=== PATIENT | male | born 1960 | race Caucasian/White ===

== ENCOUNTER 2022-04-21 18:05 | Inpatient (IN) ==
--- NOTE | 2022-04-21 20:58 | XRay Report ---
SINGLE VIEW CHEST CLINICAL HISTORY: Dyspnea. FINDINGS: An AP, portable, upright chest radiograph is compared to study dated 12/12/2020. The heart is enlarged. There is pulmonary vascular congestion. Scarring/atelectasis is noted at the lung bases. N o airspace consolidation or large pleural effusion is identified. No pneumothorax is seen. The bony t horax is grossly intact. IMPRESSION: Cardiomegaly with pulmonary vascular congestion. ACT 112: Negative or not required by law. Electronically signed by: Chilango Rivas M.D. 04/21/2022 8:57 PM
[2022-04-21 21:39] LABS: Albumin Globulin Ratio 0.9 (0.9-2); Albumin Level 3.9 gm/dl (3.4-5.0); BUN Creatinine Ratio 18.8 (10-20); Bilirubin,Total 0.6 mg/dl (0.2-1.0); Calcium 9.4 mg/dl (8.5-10.1); Creatinine Clr Calc Pharmacy 58.6 ml/min; Est GFR (African American) 46.7 ml/min; Est GFR (Non-African American) 40.3 ml/min; Globulin 4.4 gm/dl (2.5-4.0); Potassium 4.1 mmol/L (3.5-5.1); Total Protein 8.3 gm/dl (6.0-8.3)
[2022-04-21 21:41] LABS: Basophils # (auto) 0.18 K/uL (0-0.2); Basophils % (auto) 2.1 %; Eosinophils # (auto) 0.73 K/uL (0-0.50); Eosinophils % (auto) 8.6 %; Hematocrit (blood only) 38.4 % (40.1-51.0); Immature Granulocytes # (auto) 0.09 K/uL (0.00-0.02); Immature Granulocytes % (auto) 1.1 %; Lymphocytes # (auto) 2.21 K/uL (1.2-3.4); Lymphocytes % (auto) 25.9 %; Mean Corpuscular Hemoglobin 29.1 pg (25.0-34.0); Mean Corpuscular Hgb Conc 33.9 g/dL (32.0-36.0); Mean Corpuscular Volume 86.1 fL (80.0-100.0); Mean Platelet Volume 10.1 fL (9.4-12.4); Monocytes # (auto) 0.71 K/uL (0.24-0.82); Monocytes % (auto) 8.3 %; Neutrophils # (auto) 4.61 K/uL (1.4-6.5); Platelet Count 209 K/uL (130-400); RDW Coefficient of Variation 13.2 % (11.5-14.5); RDW Standard Deviation 41.3 fL (36.4-46.3); Red Blood Count 4.46 M/uL (4.63-6.08); White Blood Count 8.53 K/ul (4.8-10.8)
[2022-04-21] MEDS ORDERED: BUMETANIDE 1 MG in SYRINGE 0 ML IV ONE (21:42)
[2022-04-21] MEDS ORDERED: ALBUT/IPRATROP 3MG/0.5MG NEB 3 ML VIAL NEB STA (21:46)
[2022-04-21] MEDS ORDERED: NITROGLYCERIN 2% OINTMENT 30GM TUBE EXT ONE (21:46)
--- NOTE | 2022-04-21 22:33 | Emergency Department Note ---
History of Present Illness General Chief complaint: Shortness of Breath/Dyspnea Stated complaint: LEFT KNEE, CONJESTIVE HEART FAILURE, FLUID LONG Time Seen by Provider: 04/21/22 21:40 History of Present Illness This 62-year-old with a history of CHF on Bumex presents to the ER complaining of increasing dyspnea and leg swelling for the past few days Location: Chest Quality: Hard to breathe Severity: Moderate Duration: Past few days Timing: Started few days ago Context: Patient was concerned and came in Modifying factors: better with rest; worse with activity Patient denies chest pain, fevers, abdominal pain, vomiting, diarrhea. He has been taking his medicines as directed. He has been less active. He took an extra dose of his Bumex with no relief. Home Medications Medication Instructions Recorded Confirmed Type aspirin 81 mg tablet,delayed 81 mg PO QAM 12/12/20 04/21/22 History release (John Low Dose Aspirin) clotrimazole-betamethasone 1 1 applic topical QAM PRN AFFECTED 12/12/20 04/21/22 History %-0.05 % topical cream AREAS insulin aspart U-100 100 unit/mL 0 sliding scale dose subcut TID 12/12/20 04/21/22 History (3 mL) subcutaneous pen (Novolog per sliding scale Flexpen U-100 Insulin aspart) lisinopril 40 mg tablet 40 mg PO QPM 12/12/20 04/21/22 History metformin 500 mg tablet,extended 2,000 mg PO QAM 12/12/20 04/21/22 History release 24 hr vitamin B complex 1 tab PO QAM 12/12/20 04/21/22 History acetaminophen 500 mg tablet 500 mg PO Q6H PRN Pain 01/28/21 04/21/22 History (Tylenol Extra Strength) coenzyme Q10 100 mg capsule 200 mg PO QAM 05/09/21 04/21/22 History (CoQ-10) carvedilol 25 mg tablet 25 mg PO BID #180 tabs 05/28/21 04/21/22 Rx evolocumab 140 mg/mL subcutaneous 140 mg subcut .COMPLEX 05/28/21 04/21/22 History pen injector (Elmo Ramirezick) hydralazine 25 mg tablet 25 mg PO BID 05/28/21 04/21/22 History insulin degludec 100 unit/mL (3 180 unit subcut QAM 07/12/21 04/21/22 History mL) subcutaneous pen (Tresiba FlexTouch U-100 insulin) glucosam 750 mg-chondroi 100 1 tab PO QAM 09/10/21 04/21/22 History mg-hyalur 1.65 mg-CF borate 108 mg tablet (Move Free Footway) omeprazole magnesium 20 mg 20 mg PO QAM 01/10/22 04/21/22 History capsule,delayed release (Acid Wash Box Operator (omeprazole)) bumetanide 1 mg tablet 1 mg PO TID 01/14/22 04/21/22 History cholecalciferol (vitamin D3) 125 125 mcg PO DAILY 04/21/22 04/21/22 History mcg (5,000 unit) tablet (Vitamin D3) spironolactone 25 mg tablet 25 mg PO DAILY 04/21/22 04/21/22 History Allergies Allergy/AdvReac Type Severity Reaction Status Date / Time Sulfa (Sulfonamide AdvReac Intermediate Hives Verified 04/21/22 22:33 Antibiotics) Past Med/Surg History Medical History Arreola's esophagus Chronic diastolic heart failure EF 59%, Grade 2 diastolic dysfunction, follows with [facility] Chronic kidney disease G2/A3, baseline Cr 1.2, follows with [place] [facility] Degenerative disc disease Hepatic steatosis Hyperlipidemia Hypertension LVH (left ventricular hypertrophy) severe [place] on CPAP Type 2 diabetes mellitus IDDM Surgical History History of ankle surgery right History of cataract surgery bilateral History of colonoscopy Hx of arthroscopy of left knee Family History Other No pertinent family history Social History Smoking Status: Never smoker Second Hand Exposure: No; Hx Alcohol Use: No Hx Substance Use: No Preferred Language: [place] Communication Ability: 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: No Beliefs That Will Affect Care: None Current Living Situation: Spouse Feels Safe at Home: Yes Assistive Devices: Cane, CPAP, Denture - Upper and Glasses Review of Systems A total of 10 systems reviewed and were otherwise negative Physical Exam Vital Signs Vital Signs - 24 hr 04/21/22 18:35 04/21/22 22:47 04/21/22 22:47 Temperature 37.0 C Temperature Source Temporal Artery Scan Pulse Rate 60 Pulse Rate [Finger] 58 L Respiratory Rate 16 22 Respiratory Effort / Characteristics Non-Labored Spontaneous Respiratory Depth Normal Respiratory Pattern Regular Blood Pressure 226/90 H Blood Pressure [Right Arm] 167/72 H Blood Pressure Mean 135 Blood Pressure Mean [Right Arm] 103 Blood Pressure Position Sitting Pulse Oximetry 94 94 93 Oxygen Delivery Method Room Air Room Air Room Air Sepsis Recent Fever Within 48 Hours No Sepsis New/Unexplained Change in Mental Status N/A Sepsis Action Taken by Nursing No Action Required 04/21/22 22:47 Temperature Temperature Source Pulse Rate 58 L Pulse Rate [Finger] Respiratory Rate 22 Respiratory Effort / Characteristics Respiratory Depth Respiratory Pattern Blood Pressure Blood Pressure [Right Arm] Blood Pressure Mean Blood Pressure Mean [Right Arm] Blood Pressure Position Pulse Oximetry 93 Oxygen Delivery Method Room Air Sepsis Recent Fever Within 48 Hours Sepsis New/Unexplained Change in Mental Status Sepsis Action Taken by Nursing VITALS: Vitals are noted on the nurse's note and reviewed by myself. Vital signs hypertensive. GENERAL: Pleasant male speaking in full sentences, in no acute distress, nondiaphoretic, well-developed well-nourished. SKIN: The skin was without rashes, erythema, edema, or bruising. There is no tenting of the skin. Capillary reflex less than 2 seconds. HEAD: Normocephalic atraumatic. EARS: External auditory canals clear, tympanic membranes pearly ellis without e rythema or effusion bilaterally. EYES: Pupils equal round and reactive to light and accommodation. Conjunctivae without injection, sclerae without icterus. Extraocular movements intact. NOSE: Patent, turbinates without inflammation or discharge. MOUTH: Mucous membranes moist. Pharynx without erythema or exudate. Uvula midline. Airway patent. Tongue does not deviate. NECK: Supple without nuchal rigidity. No lymphadenopathy. No thyromegaly. Cervical spine is nontender. No JVD. HEART: Regular rate and rhythm LUNGS: Bibasilar rales. No retractions or accessory muscle use. ABDOMEN: Positive bowel sounds x 4. Normal tympanic percussion. Soft, nontender, without masses or organomegaly. Britt sign negative. No guarding or rebound tenderness. No CVA tenderness MUSCULOSKELETAL: No muscle atrophy, erythema, noted. +1 pitting edema up to the mid tib-fib bilaterally NEURO: Patient was alert and oriented to person place and time. Normal sensation to light and sharp touch. No focal neurological deficits. Course Administered Medications Discontinued Medications Albuterol (Albut/Ipratrop 3mg/0.5mg Neb 3 Ml Vial) 3 ml NEB NOW STA; Protocol Stop: 04/21/22 21:47 Last Admin: 04/21/22 21:56 Dose: 3 ml Documented By: QGV Bumetanide 1 mg/ Syringe 4 mls @ 4 mls/min IV ONE ONE Stop: 04/21/22 21:43 Last Admin: 04/21/22 22:45 Dose: 4 mls/min Documented By: QGV Nitroglycerin (Nitroglycerin 2% Ointment 30gm Tube) 1 inch EXT NOW ONE Stop: 04/21/22 21:47 Last Admin: 04/21/22 21:56 Dose: 1 inch Documented By: QGV Medical Decision Making Medical Records Attestation: I reviewed the patient's medical records. Home Medications Current Medication List: was personally reviewed by me Laboratory Data Attestation: I reviewed the patient's lab results. Result diagrams: 04/21/22 21:05 04/21/22 21:05 Lab Results 04/21/22 04/21/22 04/21/22 Range/Units 21:05 21:05 22:06 WBC 8.53 (4.8-10.8) K/ul RBC 4.46 L (4.63-6.08) M/uL Hgb 13.0 L (14.0-18.0) g/dl Hct 38.4 L (40.1-51.0) % MCV 86.1 (80.0-100.0) fL MCH 29.1 (25.0-34.0) pg MCHC 33.9 (32.0-36.0) g/dL RDW Std Deviation 41.3 (36.4-46.3) fL RDW Coeff of Javi 13.2 (11.5-14.5) % Plt Count 209 (130-400) K/uL MPV 10.1 (9.4-12.4) fL Immature Gran % (Auto) 1.1 % Neut % (Auto) 54.0 % Lymph % (Auto) 25.9 % Dare % (Auto) 8.3 % Eos % (Auto) 8.6 % Baso % (Auto) 2.1 % Neut # (Auto) 4.61 (1.4-6.5) K/uL Lymph # (Auto) 2.21 (1.2-3.4) K/uL Dare # (Auto) 0.71 (0.24-0.82) K/uL Eos # (Auto) 0.73 H (0-0.50) K/uL Baso # (Auto) 0.18 (0-0.2) K/uL Immature Gran # (Auto) 0.09 H (0.00-0.02) K/uL Sodium 138 (136-145) mmol/L Potassium 4.1 (3.5-5.1) mmol/L Chloride 104 (98-107) mmol/L Carbon Dioxide 24 (21-32) mmol/L Anion Gap 10 (3-11) BUN 33 H (6-23) mg/dl Creatinine 1.76 H (0.6-1.4) mg/dl Est Cr Clr Drug Dosing 58.6 ml/min Est GFR ( Amer) 46.7 ml/min Est GFR (Non-Af Amer) 40.3 ml/min BUN/Creatinine Ratio 18.8 (10-20) Glucose 83 (70-99(Fasting)) mg/dl Calcium 9.4 (8.5-10.1) mg/dl Magnesium 1.7 (1.7-2.4) mg/dl Total Bilirubin 0.6 (0.2-1.0) mg/dl AST 46 H (13-39) U/L ALT 38 (7-52) U/L Alkaline Phosphatase 86 (34-104) U/L Troponin I High Sens 21.3 H (0-20) pg/ml B-Natriuretic Peptide (0-100) pg/ml Total Protein 8.3 (6.0-8.3) gm/dl Albumin 3.9 (3.4-5.0) gm/dl Globulin 4.4 H (2.5-4.0) gm/dl Albumin/Globulin Ratio 0.9 (0.9-2) SARS-CoV-2, RNA, NAAT (NEGATIVE) 04/21/22 04/21/22 Range/Units 22:06 22:07 WBC (4.8-10.8) K/ul RBC (4.63-6.08) M/uL Hgb (14.0-18.0) g/dl Hct (40.1-51.0) % MCV (80.0-100.0) fL MCH (25.0-34.0) pg MCHC (32.0-36.0) g/dL RDW Std Deviation (36.4-46.3) fL RDW Coeff of Javi (11.5-14.5) % Plt Count (130-400) K/uL MPV (9.4-12.4) fL Immature Gran % (Auto) % Neut % (Auto) % Lymph % (Auto) % Dare % (Auto) % Eos % (Auto) % Baso % (Auto) % Neut # (Auto) (1.4-6.5) K/uL Lymph # (Auto) (1.2-3.4) K/uL Dare # (Auto) (0.24-0.82) K/uL Eos # (Auto) (0-0.50) K/uL Baso # (Auto) (0-0.2) K/uL Immature Gran # (Auto) (0.00-0.02) K/uL Sodium (136-145) mmol/L Potassium (3.5-5.1) mmol/L Chloride (98-107) mmol/L Carbon Dioxide (21-32) mmol/L Anion Gap (3-11) BUN (6-23) mg/dl Creatinine (0.6-1.4) mg/dl Est Cr Clr Drug Dosing ml/min Est GFR ( Amer) ml/min Est GFR (Non-Af Amer) ml/min BUN/Creatinine Ratio (10-20) Glucose (70-99(Fasting)) mg/dl Calcium (8.5-10.1) mg/dl Magnesium (1.7-2.4) mg/dl Total Bilirubin (0.2-1.0) mg/dl AST (13-39) U/L ALT (7-52) U/L Alkaline Phosphatase (34-104) U/L Troponin I High Sens (0-20) pg/ml B-Natriuretic Peptide 443 H (0-100) pg/ml Total Protein (6.0-8.3) gm/dl Albumin (3.4-5.0) gm/dl Globulin (2.5-4.0) gm/dl Albumin/Globulin Ratio (0.9-2) SARS-CoV-2, RNA, NAAT NEGATIVE (NEGATIVE) Imaging Data Attestation: I personally reviewed and interpreted this imaging study as follows: Radiologist's Impression: Chest X-Ray 04/21/22 18:42 SINGLE VIEW CHEST CLINICAL HISTORY: Dyspnea. FINDINGS: An AP, portable, upright chest radiograph is compared to study dated 12/12/2020. The heart is enlarged. There is pulmonary vascular congestion. Scarring/atelectasis is noted at the lung bases. No airspace consolidation or large pleural effusion is identified. No pneumothorax is seen. The bony thorax is grossly intact. IMPRESSION: Cardiomegaly with pulmonary vascular congestion. ACT 112: Negative or not required by law. Electronically signed by: Chilango Rivas M.D. 04/21/2022 8:57 PM [facility] Narrative Prior records/ancillary studies reviewed. Triage Nursing notes reviewed. Additional history obtained from nursing The patient's history was concerning for respiratory difficulties. Differential diagnosis: Etiologies such as infections, reactive airway disease, pneumonia, pneumothorax, COPD, CHF, cardiac ischemia, pulmonary embolism, musculoskeletal, gastrointestinal, as well as others were entertained. Physical examination: As above. ER treatment provided: An order was placed for continuous cardiac monitoring. The monitor shows a rate of 50-100 with a sinus rhythm. Bumex, nebulizer, nitroglycerin On reassessment the patient felt better. Diagnostic interpretation by me: The electrocardiogram was ordered for dyspnea EKG: Normal sinus, incomplete right bundle, no acute ST-T wave changes. Impression normal sinus rhythm with incomplete right bundle branch block interpreted by myself I think arrhythmia is unlikely. EKG shows normal sinus rhythm with no interval abnormalities such as QT prolongation or WPW. There are no findings to suggest Brugada syndrome. Cardiac monitoring in the emergency department reveals no tachycardic or bradycardic dysrhythmia. Hypertrophic cardiomyopathy was considered but there are no clear historical elements pointing toward this. EKG is not suggestive. The QRS voltage is not extremely large The labs revealed stable creatinine per chart review Elevated BNP, elevated troponin. Repeat was ordered. Imaging studies: Chest x-ray as above. Consultation: A consultation was placed with the hospitalist. The case was discussed and diagnostics were reviewed. The patient was evaluated in the ER for further treatment. This appears to be consistent with CHF exacerbation. Patient was feeling quite short of breath. He was medicated as above. Medicine was consulted. He will be evaluated for admission. By the evaluation outlined above emergent etiologi es such as pulmonary embolism, reactive airway disease, pneumonia, pneumothorax, musculoskeletal, serious bacterial infections, as well as others were deemed relatively unlikely. The pt informed about the findings as listed above. All questions were answered and pleased with the treatment. The chart was completed utilizing [employer] Speech voice recognition software. Grammatical errors, random word insertions, pronoun errors, and incomplete sentences are an occassional consequence of this system due to software limitations, ambient noise, and hardware issues. Any formal questions or con cerns about the content, text, or information contained within the body of this dictation should be directly addressed to the physician programs assistant for clarification. Impression & Plan Congestive heart failure Discharge Plan Visit Data Chief Complaint: Shortness of Breath/Dyspnea Stated Complaint: LEFT KNEE, CONJESTIVE HEART FAILURE, FLUID LONG ED Provider: Errol Patterson ED Midlevel Provider: Wen Singh Discharge Problem: Congestive heart failure Patient Disposition: Admitted As Inpatient Condition: Fair Forms Stand Alone Forms: [facility] [place] [employer] Prescriptions Prescriptions: No Action acetaminophen [Tylenol Extra Strength] 500 mg tablet 500 mg PO Q6H PRN (Reason: Pain) omeprazole magnesium [Acid Wash Box Operator (omeprazole)] 20 mg capsule,delayed release(DR/EC) 20 mg PO QAM hydralazine 25 mg tablet 25 mg PO BID Rx Instructions: PER PT "ONLY TAKE BID, ORDERED TID". Repatha SureClick 140 mg/mL pen injector 140 mg subcut .COMPLEX Rx Instructions: 140 mg subcut q other wk; TAKES ON EVERY OTHER WEDNESDAYS. carvedilol 25 mg tablet 25 mg PO BID Qty: 180 3RF Rx Instructions: must administer with a meal/food Move Free Footway 750 mg-100 mg- 1.65 mg-108 mg tablet 1 tab PO QAM bumetanide 1 mg tablet 1 mg PO TID aspirin [John Low Dose Aspirin] 81 mg Tablet,Delayed Release (Dr/Ec) 81 mg PO QAM clotrimazole-betamethasone 1-0.05 % cream 1 applic TOPICAL QAM PRN (Reason: AFFECTED AREAS) vitamin B complex Tablet 1 tab PO QAM lisinopril 40 mg tablet 40 mg PO QPM metformin 500 mg tablet extended release 24 hr 2,000 mg PO QAM insulin aspart U-100 [Novolog Flexpen U-100 Insulin] 100 unit/mL (3 mL) Insulin Pen 0 sliding scale dose SUBCUT TID coenzyme Q10 [CoQ-10] 100 mg capsule 200 mg PO QAM Tresiba FlexTouch U-100 100 unit/mL (3 mL) insulin pen 180 unit SUBCUT QAM spironolactone 25 mg tablet 25 mg PO DAILY cholecalciferol (vitamin D3) [Vitamin D3] 125 mcg (5,000 unit) Tablet 125 mcg PO DAILY Referrals Referrals: Bárbara Rios DO [Primary Care Provider] - : Congestive heart failure Qualifiers: Heart failure type: unspecified Heart failure chronicity: acute Qualified Code(s): I50.9 - Heart failure, unspecified
[2022-04-21 22:46] LABS: Magnesium 1.7 mg/dl (1.7-2.4); Troponin I High Sensitivity 21.3 pg/ml (0-20)
[2022-04-22 01:32] LABS: Appearance Urine Clear (Clear); Bacteria Urine Automated Negative (Negative); Bilirubin Urine Negative (Negative); Blood Urine Negative (Negative); Color Urine Yellow; Glucose Urine UA Negative (Negative); Ketones Urine Negative (Negative); Leukocyte Esterase Urine Negative (Negative); Nitrite Urine Negative (Negative); Protein Urine 2+ (Negative); RBC Urine Automated 0-4 /hpf (0-4); Specific Gravity Urine 1.011 (1.000-1.030); Urobilinogen Urine Negative (Negative); WBC Urine Automated 0 /hpf (0-5); pH Urine 5.5 (4.5-7.5)
[2022-04-22] MEDS ORDERED: ACETAMINOPHEN 325 MG TAB PO PRN (01:50)
[2022-04-22] MEDS ORDERED: NITROGLYCERIN SL 0.4 MG/TAB TAB SL PRN (01:50)
[2022-04-22] MEDS ORDERED: CLOTRIMAZOLE/BETAMETHASONE CR 15 GM TUBE EXT PRN (01:50)
[2022-04-22] MEDS ORDERED: POLYETHYLENE (MIRALAX) 17 GM PACK PO PRN (01:50)
[2022-04-22] MEDS ORDERED: BUMETANIDE 1 MG in SYRINGE 0 ML IV ONE (02:00)
[2022-04-22] MEDS ORDERED: GLUCAGON FOR INJ 1 MG VIAL IM PRN (02:45)
[2022-04-22] MEDS ORDERED: CARBOHYDRATES FOR HYPOGLYCEMIA PO PRN (02:45)
[2022-04-22] MEDS ORDERED: GLUCOSE 40% GEL 15 GM TUBE PO PRN (02:45)
[2022-04-22] MEDS ORDERED: GLUCOSE 10 TAB/TUBE PO PRN (02:45)
[2022-04-22] MEDS ORDERED: DEXTROSE 50% 50 ML SYRINGE IV PRN (02:45)
--- NOTE | 2022-04-22 03:32 | History and Physical Report ---
DATE OF ADMISSION: 04/22/2022. CHIEF COMPLAINT: Shortness of breath. HISTORY OF PRESENT ILLNESS: A 62-year-old male with past medical history significant for type 2 diabetes, diabetic polyneuropathy, diabetic retinopathy, obstructive sleep apnea, on CPAP, diastolic CHF, chronic kidney disease, stage IIIB, morbid obesity, Arreola's esophagus with high-grade dysplasia, hepatic steatosis, degenerative disk disease, history of colonoscopy with polypectomy, history of tobacco abuse, history of elevated LFTs., who presents with shortness of breath going on for 1 month, got progressively worse in the last 1 week, saw PCP recently and his Bumex was increased from 2 mg to 3 mg, but is not improving. Cardiology advised to come to the ER . The patient received one dose of IV Bumex 1 mg in the ER so far. The patient is not very compliant with his salt, trying to cut it down. Denies any chest pain. Walking short distance making him short of breath, using CPAP at nighttime. Has occasional cough, has some runny nose and sore throat since the last 1 week. No headache, no blurred visions, no earache, no fevers. Appetite is okay. No difficulty swallowing. No nausea, no abdominal pain. Normal bowel and bladder movements. Currently resting comfortably and hemodynamically stable, saturating okay on room air. ALLERGIES: SULFA ANTIBIOTICS. PAST MEDICAL HISTORY: As mentioned above. PAST SURGICAL HISTORY: Right ankle surgery, colonoscopy, EGD, EGD with endoscopic ultrasound, lumbar and sacral epidural shot, bilateral cataract surgeries, injection of sacroiliac joint, left thigh surgery. MEDICATIONS: The patient is on Tylenol 500 mg p.o. q. 6 hours p.r.n., aspirin 81 mg p.o. daily, bumetanide 1 mg p.o. t.i.d., Coreg 25 mg p.o. b.i.d., vitamin D 125 mcg p.o. daily, Coenzyme Q10 200 mg p.o. a.m., Repatha as directed, hydralazine 25 mg p.o. b.i.d., insulin aspart sliding scale, insulin degludec 0.8 units subcutaneous a.m., lisinopril 40 mg p.o. p.m., metformin 2000 mg p.o. a.m., omeprazole 20 mg p.o. a.m., spironolactone 25 mg p.o. daily, vitamin B complex 1 tablet p.o. a.m. FAMILY HISTORY: Significant for son has celiac disease; mother has glaucoma. SOCIAL HISTORY: Former smoker, smoked 2 packs a day for 13 years, quit in 1987. No alcohol use. No drug use. REVIEW OF SYSTEMS: As per HPI. Rest of the review of systems is negative. PHYSICAL EXAMINATION: GENERAL: The patient is obese, not in acute distress. VITAL SIGNS: Temperature 37, pulse 58, respiratory rate 22, blood pressure 167/72, oxygen 95% on room air. HEENT: Pupils equal, round and reactive to light. Oral mucosa moist. NECK: No JVD. No neck masses. CARDIOVASCULAR: S1 and S2 heard. Regular rate and rhythm. No murmur, no gallop. RESPIRATORY SYSTEM: Normal AP diameter. No accessory muscle use. Mild bibasilar crackles. No wheezing. ABDOMEN: Soft, bowel sounds present, nontender, no distention. CENTRAL NERVOUS SYSTEM: Cranial nerves II-XII grossly intact, nonfocal. EXTREMITIES: Trace pedal edema present, no erythema seen. LABORATORY DATA: WBC 8.5, hemoglobin 13, hematocrit 38.4, platelets 209. Sodium 138, potassium 4.1, chloride 104, bicarbonate 24, BUN 33, creatinine 1.7, serum glucose 83, calcium 9.4, magnesium 1.7, total bilirubin 0.6, AST 46, ALT 38, alkaline phosphatase 86. Troponin I high sensitivity 21.3. BNP 443. SARS-CoV-2 rapid test negative. IMAGING DATA: Chest x-ray: Cardiomegaly with pulmonary vascular congestion. EKG: Sinus bradycardia with first-degree AV block at a rate of 57, incomplete right bundle-branch block, no significant change was found. ASSESSMENT AND PLAN: This 62-year-old male presents with acute on chronic diastolic congestive heart failure. 1. Acute on chronic diastolic congestive heart failure: Bumex was increased from 2 mg to 3 mg p.o. at home by PCP on 04/18/2022, but not improving. Cardiology advised him to come to the hospital. Received IV Bumex 1 mg in the ER, we will give another 1 mg IV Bumex and continue with IV Bumex 1 mg b.i.d., Consult cardiology in the a.m. We will follow echocardiogram. Daily weights, I's and O's and follow the response. 2. Obstructive sleep apnea: On CPAP at bedtime. 3. Diabetes: Continue his home long-acting insulin, place on insulin sliding scale. Hold metformin. Follow the blood sugars, follow HbA1c levels. 4. Hypertension: Continue hydralazine, metformin, spironolactone and Coreg. Currently getting diuretics. We will monitor the blood pressure. 5. Obesity: Needs counseling. 6. Chronic kidney disease stage III: Baseline creatinine 1.7, seems to be around baseline. Follow the labs while the patient is getting IV diuretics. 7. Gastroesophageal reflux disease: On omeprazole. 8. Mild elevation of troponin: Mostly demand ischemia. Follow serial enzymes. Follow echocardiogram. 9. Deep venous thrombosis prophylaxis: Placed on heparin subcutaneous. DISPOSITION: Closely monitor in the tele floor. Level 1 full code. Expect to discharge home and follow with family doctor. Job ID: [id number] [facility]
[2022-04-22] MEDS: HEPARIN SOD 5,000 UNIT/0.5 ML VIAL SQ SCH ×3 (05:05→21:49)
[2022-04-22 06:07] LABS: Basophils # (auto) 0.19 K/uL (0-0.2); Eosinophils # (auto) 0.86 K/uL (0-0.50); Eosinophils % (auto) 8.8 %; Hematocrit (blood only) 36.3 % (40.1-51.0); Hemoglobin 12.2 g/dl (14.0-18.0); Immature Granulocytes # (auto) 0.05 K/uL (0.00-0.02); Immature Granulocytes % (auto) 0.5 %; Lymphocytes # (auto) 2.26 K/uL (1.2-3.4); Lymphocytes % (auto) 23.2 %; Mean Corpuscular Hemoglobin 28.7 pg (25.0-34.0); Mean Corpuscular Hgb Conc 33.6 g/dL (32.0-36.0); Mean Corpuscular Volume 85.4 fL (80.0-100.0); Mean Platelet Volume 10.1 fL (9.4-12.4); Monocytes # (auto) 0.83 K/uL (0.24-0.82); Monocytes % (auto) 8.5 %; Neutrophils # (auto) 5.54 K/uL (1.4-6.5); Platelet Count 212 K/uL (130-400); RDW Coefficient of Variation 13.3 % (11.5-14.5); Red Blood Count 4.25 M/uL (4.63-6.08); White Blood Count 9.73 K/ul (4.8-10.8)
[2022-04-22 06:14] LABS: BUN Creatinine Ratio 20.5 (10-20); Calcium 9.1 mg/dl (8.5-10.1); Creatinine Clr Calc Pharmacy 62.2 ml/min; Est GFR (African American) 50.1 ml/min; Est GFR (Non-African American) 43.2 ml/min; Magnesium 1.6 mg/dl (1.7-2.4); Potassium 3.9 mmol/L (3.5-5.1)
[2022-04-22 06:16] LABS: Troponin I High Sensitivity 21.1 pg/ml (0-20)
[2022-04-22 07:28] LABS: Estimated Average Glucose 160 mg/dl; Hemoglobin A1C 7.2 % (4.5-5.6)
[2022-04-22] MEDS: ASPIRIN 81 MG ECTAB PO SCH (07:50)
[2022-04-22] MEDS: CHOLECALCIFEROL 5,000 UNITS 125 MCG TAB PO SCH (07:51)
[2022-04-22] MEDS: carvediloL 25 MG TAB PO SCH ×2 (07:52→21:46)
[2022-04-22] MEDS: hydrALAZINE HCL 25 MG TAB PO SCH ×2 (07:52→21:48)
[2022-04-22] MEDS: VITAMIN B COMPLEX TAB PO SCH (07:53)
[2022-04-22] MEDS: SPIRONOLACTONE 25 MG TAB PO SCH (07:53)
[2022-04-22] MEDS: PANTOprazole 40 MG TAB PO SCH (07:53)
[2022-04-22] MEDS ORDERED: PHARMACY GLYCEMIC MGMT CONSULT PRN (07:54)
[2022-04-22] MEDS ORDERED: Flu Vaccine (Fluarix) 0.5mL SYR (Standard Dose) IM ONE (08:00)
[2022-04-22] MEDS: BUMETANIDE 2 MG in SYRINGE 0 ML IV SCH ×2 (08:02→17:45)
[2022-04-22] MEDS: INSULIN ASPART PER UNIT SC SCH ×4 (08:09→20:53)
--- NOTE | 2022-04-22 08:39 | Cardiology Consultation ---
Date of Consultation April 22, 2022 Assessment & Plan (1) Acute on chronic diastolic CHF (congestive heart failure): (2) Hypertension: (3) CHAPINCITO on CPAP: Plan 62-year-old male with acute on chronic diastolic CHF. Exacerbation likely multifactorial due to dietary indiscretions and significant immobility over the last month and a half. Given subacute shortness of breath there is concern for DVT/PE. -Proceed with a bilateral lower extremity venous duplex as stated by Dr. Michael cohen. Unable to proceed with CTA due to CKD. -Echocardiogram pending. Will assess biventricular function as well as valvular status. Troponins minimally elevated but flat likely due to acute CHF and CKD- unlikely to be related to ACS. -Patient remains hypervolemic on exam but responding well to IV diuresis- continue IV Bumex 2 mg twice daily. -Continue to trend BMP. Potassium goal of 4.0 and mag goal at 2.0, replete as necessary. -2 g sodium diet -Strict I&O's and standing daily weights -Blood pressure was initially elevated upon admission but slowly improving. Continue all medications as currently ordered. We will continue to attempt to diuresis with hopes to improve the blood pressure. Upon review of outpatient records it appears that hydralazine was recommended to be taken 3 times daily. Should blood pressures not improved we will plan on increasing hydralazine at this time. -Patient with known obstructive sleep apnea, wears CPAP at night. Case discussed with Dr. Willard. We will follow. Supervising Physician Co-Signing Physician Notes Supervising Physician Attestation: I have personally performed a history and physical examination on the patient. I agree with Evita PAREDES's findings and plan as documented with the following additions. Subjective: Patient notes a subacute progressive shortness of breath over the last several weeks. Exam: Telemetry reveals sinus rhythm in the 60s. Cardiovascular: Regular rhythm, no murmurs, trace lower extremity edema Data: Echocardiogram performed today reveals moderate concentric left ventricular hypertrophy, LVEF 55 to 60%, grade 2 diastolic dysfunction Assessment and Plan: Acute on chronic diastolic heart failure. Continue IV Bumex. DVT prophylaxis: Continue subcutaneous heparin Josh Willard, DO History of Present Illness Reason for Consultation: Acute on chronic CHF Requesting Physician: [facility] Attending Physician: Jeffrey Gordon MD History of Present Illness 62-year-old male initially presenting to the [facility] emergency department due to shortness of breath x1 month. Was seen by his PCP on 04/18-patient was instructed to increase his Bumex to 3 mg daily without improvement of symptoms. Patient was hypertensive on arrival with systolics in the 200s- lowered to 150- 170s. In the emergency department patient was given 1 mg of IV Bumex and started on IV Bumex 1 mg twice daily. Labs: Renal function stable. High-sensitivity troponins minimally elevated and flat at 21. Chest x-ray showing cardiomegaly with pulmonary vascular congestion EKG 04/21: Sinus bradycardia with a first-degree AV block, 57 bpm. Echo 04/22: Pending Of note, patient has been following with Dr. Vazquez in our outpatient orthopedic clinic due to left knee arthritis. Unfortunately in the middle of March he had a left knee injury. He presented to [place] ER, x-ray and CT scan all negative for acute fracture however the CT scan did show some concern for reinjury of the distal quadriceps. Lower extremity venous duplex showed no evidence of DVT. Patient was placed in a knee immobilizer was still having significant pain. MRI of the knee was obtained showing a partial-thickness retear through the superficial layer of the tendon. Overall conservative management was recommended patient was recommended to utilize his knee immobilizer with ambulation. Upon entrance into the room patient was ambulating from the bathroom to his bed. From a cardiac standpoint he states that he is feeling better but continues to have dyspnea. Denies any chest pain. No palpitations, dizziness. No recent syncope. Does note ongoing discomfort of his left knee. States that because of this injury he has been immobile for the last 5 to 6 weeks. States that he primarily rests in his recliner and does very little activity throughout the day. Does not necessarily follow a low-sodium diet. Does not weigh himself daily. Tele: Sinus rhythm/sinus bradycardia I&O: -900mL Weight: 124.8 kg Past medical history Chronic diastolic CHF Hypertensive heart disease History of elevated calcium on hydrochlorothiazide Hyperlipidemia Obesity Diabetes History of elevated LFTs CHAPINCITO on CPAP CKD, baseline creatinine 1.7-follows with [facility] nephrology Allergies Allergy/AdvReac Type Severity Reaction Status Date / Time Sulfa (Sulfonamide AdvReac Intermediate Hives Verified 04/21/22 22:33 Antibiotics) Home Medications Medication Instructions Recorded Confirmed Type aspirin 81 mg tablet,delayed 81 mg PO QAM 12/12/20 04/21/22 History release (John Low Dose Aspirin) clotrimazole-betamethasone 1 1 applic topical QAM PRN AFFECTED 12/12/20 04/21/22 History %-0.05 % topical cream AREAS insulin aspart U-100 100 unit/mL 0 sliding scale dose subcut TID 12/12/20 04/21/22 History (3 mL) subcutaneous pen (Novolog per sliding scale Flexpen U-100 Insulin aspart) lisinopril 40 mg tablet 40 mg PO QPM 12/12/20 04/21/22 History metformin 500 mg tablet,extended 2,000 mg PO QAM 12/12/20 04/21/22 History release 24 hr vitamin B complex 1 tab PO QAM 12/12/20 04/21/22 History acetaminophen 500 mg tablet 500 mg PO Q6H PRN Pain 01/28/21 04/21/22 History (Tylenol Extra Strength) coenzyme Q10 100 mg capsule 200 mg PO QAM 05/09/21 04/21/22 History (CoQ-10) carvedilol 25 mg tablet 25 mg PO BID #180 tabs 05/28/21 04/21/22 Rx evolocumab 140 mg/mL subcutaneous 140 mg subcut .COMPLEX 05/28/21 04/21/22 History pen injector (Elmo Shine) hydralazine 25 mg tablet 25 mg PO BID 05/28/21 04/21/22 History insulin degludec 100 unit/mL (3 180 unit subcut QAM 07/12/21 04/21/22 History mL) subcutaneous pen (Tresiba FlexTouch U-100 insulin) glucosam 750 mg-chondroi 100 1 tab PO QAM 09/10/21 04/21/22 History mg-hyalur 1.65 mg-CF borate 108 mg tablet ([employer]) omeprazole magnesium 20 mg 20 mg PO QAM 01/10/22 04/21/22 History capsule,delayed release (Acid Loom Starter (omeprazole)) bumetanide 1 mg tablet 1 mg PO TID 01/14/22 04/21/22 History cholecalciferol (vitamin D3) 125 125 mcg PO DAILY 04/21/22 04/21/22 History mcg (5,000 unit) tablet (Vitamin D3) spironolactone 25 mg tablet 25 mg PO DAILY 04/21/22 04/21/22 History Patient History Medical History Arreola's esophagus Chronic diastolic heart failure EF 59%, Grade 2 diastolic dysfunction, follows with [facility] Chronic kidney disease G2/A3, baseline Cr 1.2, follows with [facility] Degenerative disc disease Hepatic steatosis Hyperlipidemia Hypertension LVH (left ventricular hypertrophy) severe CHAPINCITO on CPAP Type 2 diabetes mellitus IDDM Surgical History History of ankle surgery right History of cataract surgery bilateral History of colonoscopy Hx of arthroscopy of left knee Family History Other No pertinent family history Social History Smoking Status: Never smoker Second Hand Exposure: No; Hx Alcohol Use: No Hx Substance Use: No Preferred Language: Surinamese Communication Ability: Effective Communication Coordinator Required: No Beliefs That Will Affect Care: None marital status: Current Living Situation: Spouse Other Information That Helps Us Care for You: No Feels Safe at Home: Yes Safety Concerns: Feels Safe At This Time Assistive Devices: CPAP Review of Systems Review of Systems: All systems reviewed & are unremarkable except as noted in HPI & below Physical Exam Constitutional: WD/WN, vitals as above no acute distress Neck: normal visual inspection and trachea midline Respiratory: normal respiratory effort and + cough (With deep inspiration); no respiratory distress Auscultation: + rales; no rhonchi and no wheezes Cardiovascular: Rate/Rhythm: regular rate and regular rhythm Heart Sounds: normal S1 and normal S2; no murmur Vessels: + JVD Extremities: no edema Gastrointestinal (Abdomen): Inspection/Auscultation: + abdomen distended (Taut) Percussion/Palpation: + abdomen firm; abdomen nontender Musculoskeletal: Gait: + limp (Left leg discomfort) Knee: + surgical incision (Left knee) and + limited ROM of knee (Left knee) Skin: no rashes, warm and dry Psychiatric: A+Ox3, euthymic affect Results & Data ([facility]) Vital Signs (Past 12 Hours) Vital Signs Pulse Pulse Resp BP BP Pulse Ox Pulse Ox 04/22/22 06:00 55 L 22 157/75 H 93 04/22/22 05:00 57 L 15 132/88 95 04/22/22 04:00 51 L 20 158/73 H 94 04/22/22 03:00 51 L 19 153/80 H 93 04/22/22 02:09 57 L 30 H 178/73 H 94 04/22/22 02:30 56 L 04/22/22 04:40 94 04/22/22 04:00 94 04/22/22 01:50 54 L 15 150/129 H 93 04/22/22 01:24 60 18 141/86 H 95 04/21/22 22:47 58 L 22 93 04/21/22 22:47 58 L 22 167/72 H 93 04/21/22 22:47 94 O2 Del Method O2 Del Method 04/22/22 06:00 04/22/22 05:00 04/22/22 04:00 04/22/22 03:00 04/22/22 02:09 04/22/22 02:30 04/22/22 04:40 CPAP 04/22/22 04:00 CPAP 04/22/22 01:50 Room Air 04/22/22 01:24 04/21/22 22:47 Room Air 04/21/22 22:47 Room Air 04/21/22 22:47 Room Air Laboratory Results Cardiac Enzymes 04/21/22 04/21/22 04/21/22 Range/Units 21:05 22:06 22:06 AST 46 H (13-39) U/L Troponin I High Sens 21.3 H (0-20) pg/ml B-Natriuretic Peptide 443 H (0-100) pg/ml 04/22/22 04/22/22 Range/Units 00:45 05:26 AST (13-39) U/L Troponin I High Sens 21.5 H 21.1 H (0-20) pg/ml B-Natriuretic Peptide (0-100) pg/ml Coagulation 04/21/22 Range/Units 22:06 B-Natriuretic Peptide 443 H (0-100) pg/ml CBC 04/21/22 04/22/22 Range/Units 21:05 05:26 WBC 8.53 9.73 (4.8-10.8) K/ul RBC 4.46 L 4.25 L (4.63-6.08) M/uL Hgb 13.0 L 12.2 L (14.0-18.0) g/dl Hct 38.4 L 36.3 L (40.1-51.0) % Plt Count 209 212 (130-400) K/uL Neut # (Auto) 4.61 5.54 (1.4-6.5) K/uL Lymph # (Auto) 2.21 2.26 (1.2-3.4) K/uL Jack # (Auto) 0.71 0.83 H (0.24-0.82) K/uL Eos # (Auto) 0.73 H 0.86 H (0-0.50) K/uL Baso # (Auto) 0.18 0.19 (0-0.2) K/uL Comprehensive Metabolic Panel 04/21/22 04/22/22 Range/Units 21:05 05:26 Sodium 138 137 (136-145) mmol/L Potassium 4.1 3.9 (3.5-5.1) mmol/L Chloride 104 103 (98-107) mmol/L Carbon Dioxide 24 26 (21-32) mmol/L BUN 33 H 34 H (6-23) mg/dl Creatinine 1.76 H 1.66 H (0.6-1.4) mg/dl Glucose 83 158 H (70-99(Fasting)) mg/dl Calcium 9.4 9.1 (8.5-10.1) mg/dl AST 46 H (13-39) U/L ALT 38 (7-52) U/L Alkaline Phosphatase 86 (34-104) U/L Total Protein 8.3 (6.0-8.3) gm/dl Albumin 3.9 (3.4-5.0) gm/dl Intake and Output 04/21/22 04/22/22 04/22/22 22:59 06:59 14:59 Output Total 900 / 900 Balance -900 / -900 Output: Urine 900 / 900 Other: # Unmeasured Voids 1 Weight 124.8 kg 124.8 kg Weight Measurement Method Chair Scale Built in [facility] Diagnostic Findings Echo 04/22/2022 Pending Echo 01/2021 The primary indication after review was deemed appropriate and the examination was performed. Normal LV chamber size with severe concentric LVH. Normal LV systolic function without regional wall motion abnormality. Calculated LV ejection Fraction = 59% (bi-plane method of discs). Grade 2 diastolic dysfunction. Poorly visualized valvular structures. Mild tricuspid regurgitation.
--- NOTE | 2022-04-22 08:40 | Communication Note ---
Date of Service: April 22, 2022 Full consult to follow. Pt notes recent left knee injury. He has been wearing a brace and has been imobile for 5 weeks with subacute development of shortness of breath. Proceed with bilateral LE venous duplex to exclude DVT. CKD prevents proceeding with CTA. IV bumex, Echo in process.
[2022-04-22] MEDS ORDERED: BUMETANIDE 1 MG in SYRINGE 0 ML IV SCH (09:00)
[2022-04-22] MEDS ORDERED: NON-FORMULARY MEDICATION (Insulin Degludec [Tresiba Flextouch U-100] 100 unit/mL (3 mL) in SQ SCH (09:00)
[2022-04-22] MEDS ORDERED: LANTUS PER UNIT CHARGE SQ SCH ×2 (09:00)
[2022-04-22] MEDS ORDERED: NON-FORMULARY MEDICATION (Coenzyme Q10 [Coq-10] 100 mg capsule) PO SCH (09:00)
--- NOTE | 2022-04-22 10:23 | Ultrasound Report ---
BILATERAL LOWER EXTREMITY VENOUS DOPPLER HISTORY: Acute pain and swelling of the right lower leg DVT COMPARISON STUDY: Duplex venous Doppler study 12/12/2020 FINDINGS: There is normal compressibility, flow, and augmentation within the bilateral lower extremit y deep venous systems. IMPRESSION: No DVT within the right or left lower extremity. ACT 112: Negative or not required by law. Electronically signed by: Moise Patricia M.D. 04/22/2022 10:21 AM
--- NOTE | 2022-04-22 10:46 | Pharmacy Report ---
Pharmacy Glycemic Short Note 2 - Date of Service April 22, 2022 - Glycemic Short BSG Results (Last 24 hours): 04/21/22 04/22/22 04/22/22 21:05 04:59 05:01 Glucose 83 POC Glucose 53 L* 56 L* 04/22/22 04/22/22 04/22/22 05:19 05:26 05:41 Glucose 158 H POC Glucose 57 L* 124 H 04/22/22 07:23 Glucose POC Glucose 96 OUTPATIENT ANTIDIABETIC REGIMEN: Per Outpatient [facility] Documentation: * Tresiba 180 units daily in the morning * Metformin ER 2000 mg daily * Novolog 40 units with all meals + CF 1:20 over 150 + 20 units at bedtime (if high) * additional 5-10 units with meals if high carb * A1c 7.2% 04/22/22 ASSESSMENT: * Patient admitted with shortness of breath ongoing past month with acute worsening in the last week, not improved with increased in diuretic. * Outpatient A1c suggests adequate outpatient control, slightly above goal of <7.0% * Patient with high insulin needs outpatient, was hypoglycemic overnight, AM lantus dose significantly reduced, will set scale for PM to provide up to 100 total for the day * Novolog parameters set with home correction factor of 20 and carb ratio between a weight based stress of 2 and 3. Will adjust as needed with further BSGs PLAN FOR INPATIENT GLYCEMIC CONTROL: * Hold outpatient oral diabetes medications * Basal insulin * Lantus 30 units SQ x1 this AM, Scale for 30/50/70 for PM * Bolus insulin * NovoLog per scale ACHS or Q6hrs while NPO * Goal Range: Low 120 mg/dL - High 160 mg/dL * Correction Factor: 20 mg/dL/unit * Nutritional / Prandial insulin per carb ratio of 1 unit per 5 grams CHO consumed
--- NOTE | 2022-04-22 13:43 | Hospitalist Progress Note ---
Date of Service April 22, 2022 Assessment & Plan (1) Acute on chronic diastolic CHF (congestive heart failure): Plan: - presents with progressive shortness of breath, mild LE edema - CXR with pulm vascular congestion and small left sided pleural effusion - started on IV bumex 2mg BID per cardiology - Strict I/O - telemetry monitoring - continue home medications (2) Chronic kidney disease: Plan: - Cr baseline around 1.5 - IV diuresis as above - trend Cr - improved to near baseline - avoid nephrotoxic medications (3) Mixed dyslipidemia: Plan: - not on statin - consider starting in setting of DM and HTN, HFpEF in consultation with Cardiology - not sure if not on statin given steatosis - will get LFTs on AM labs (4) Uncontrolled type 2 diabetes mellitus with hyperglycemia: Plan: - A1c 7.2% - lantus and SSI per pharmacy protocol - monitor FSG AC+HS (5) Hepatic steatosis: Plan: - mpted (6) CHAPINCITO on CPAP: Plan: - continue CPAP (7) Hypertension: Plan: - continue home medications - increase hydralazine as needed per Cardiology Plan DVT ppx: heparin SC Code Status: Full Code Dispo: Telemetry Jeffrey Gordon MD [facility] Medicine Admission and Anticipated Discharge Date Admission Date: April 22, 2022 Subjective 62 yea old man with pmh DM2, CHAPINCITO on CPAP, HFpEF, CKD, obesity, Arreola's esophagus, hepatic steatosis, DDD prestent with progressive shortness of breath, found to be in CHF exacerbation. Started on IV Bumex BID per Cardiology. DVT studies negative. Patient feeling better and not needing oxygen. Reports continued SILVA with minima exertion and has a dry cough. Denies chest pain, fevers or chills, n/v/d, abdominal pain, dysuria. Review of Systems Review of Systems: All systems reviewed & are unremarkable except as noted in Subjective Physical Exam Physical Exam: GENERAL: The patient is obese, not in acute distress. HEENT: Pupils equal, round and reactive to light. Oral mucosa moist. NECK: No JVD. No neck masses. CARDIOVASCULAR: S1 and S2 heard. Regular rate and rhythm. No murmur, no gallop. RESPIRATORY SYSTEM: Normal AP diameter. No accessory muscle use. Mild bibasilar crackles. No wheezing. ABDOMEN: Soft, bowel sounds present, nontender, no distention. CENTRAL NERVOUS SYSTEM: Cranial nerves II-XII grossly intact, nonfocal. EXTREMITIES: no pedal edema present, no erythema seen. Results & Data Results & Data ([facility]) Vital Signs (Past 12 Hours) Vital Signs Temp Pulse Pulse Pulse Resp BP BP 04/22/22 12:44 36.7 C 92 H 18 127/68 04/22/22 08:00 36.5 C 55 L 18 144/65 H 04/22/22 08:00 04/22/22 06:00 55 L 22 157/75 H 04/22/22 05:00 57 L 15 132/88 04/22/22 04:00 51 L 20 158/73 H 04/22/22 03:00 51 L 19 153/80 H 04/22/22 02:09 57 L 30 H 178/73 H 04/22/22 02:30 56 L 04/22/22 04:40 04/22/22 04:00 04/22/22 01:50 54 L 15 150/129 H Pulse Ox Pulse Ox O2 Del Method O2 Del Method 04/22/22 12:44 93 Room Air 04/22/22 08:00 94 Room Air 04/22/22 08:00 Room Air 04/22/22 06:00 93 04/22/22 05:00 95 04/22/22 04:00 94 04/22/22 03:00 93 04/22/22 02:09 94 04/22/22 02:30 04/22/22 04:40 94 CPAP 04/22/22 04:00 94 CPAP 04/22/22 01:50 93 Room Air Diagnostic Findings Laboratory Results WBC 9.73 K/ul (4.8-10.8) 04/22/22 05:26 RBC 4.25 M/uL (4.63-6.08) L 04/22/22 05:26 Hgb 12.2 g/dl (14.0-18.0) L 04/22/22 05:26 Hct 36.3 % (40.1-51.0) L 04/22/22 05:26 MCV 85.4 fL (80.0-100.0) 04/22/22 05:26 MCH 28.7 pg (25.0-34.0) 04/22/22 05:26 MCHC 33.6 g/dL (32.0-36.0) 04/22/22 05:26 RDW Std Deviation 41.0 fL (36.4-46.3) 04/22/22 05:26 RDW Coeff of Javi 13.3 % (11.5-14.5) 04/22/22 05:26 Plt Count 212 K/uL (130-400) 04/22/22 05:26 MPV 10.1 fL (9.4-12.4) 04/22/22 05:26 Immature Gran % (Auto) 0.5 % 04/22/22 05:26 Neut % (Auto) 57.0 % 04/22/22 05:26 Lymph % (Auto) 23.2 % 04/22/22 05:26 [place] % (Auto) 8.5 % 04/22/22 05:26 Eos % (Auto) 8.8 % 04/22/22 05:26 Baso % (Auto) 2.0 % 04/22/22 05:26 Neut # (Auto) 5.54 K/uL (1.4-6.5) 04/22/22 05:26 Lymph # (Auto) 2.26 K/uL (1.2-3.4) 04/22/22 05:26 [place] # (Auto) 0.83 K/uL (0.24-0.82) H 04/22/22 05:26 Eos # (Auto) 0.86 K/uL (0-0.50) H 04/22/22 05:26 Baso # (Auto) 0.19 K/uL (0-0.2) 04/22/22 05:26 Immature Gran # (Auto) 0.05 K/uL (0.00-0.02) H 04/22/22 05:26 Sodium 137 mmol/L (136-145) 04/22/22 05:26 Potassium 3.9 mmol/L (3.5-5.1) 04/22/22 05:26 Chloride 103 mmol/L (98-107) 04/22/22 05:26 Carbon Dioxide 26 mmol/L (21-32) 04/22/22 05:26 Anion Gap 8 (3-11) 04/22/22 05:26 BUN 34 mg/dl (6-23) H 04/22/22 05:26 Creatinine 1.66 mg/dl (0.6-1.4) H 04/22/22 05:26 Est Cr Clr Drug Dosing 62.2 ml/min 04/22/22 05:26 Est GFR ( Amer) 50.1 ml/min 04/22/22 05:26 Est GFR (Non-Af Amer) 43.2 ml/min 04/22/22 05:26 BUN/Creatinine Ratio 20.5 (10-20) H 04/22/22 05:26 Glucose 158 mg/dl (70-99(Fasting)) H 04/22/22 05:26 POC Glucose 92 mg/dl (70-99) 04/22/22 11:21 Estimat Average Glucose 160 mg/dl 04/22/22 05:26 Hemoglobin A1c 7.2 % (4.5-5.6) H 04/22/22 05:26 Calcium 9.1 mg/dl (8.5-10.1) 04/22/22 05:26 Magnesium 1.6 mg/dl (1.7-2.4) L 04/22/22 05:26 Total Bilirubin 0.6 mg/dl (0.2-1.0) 04/21/22 21:05 AST 46 U/L (13-39) H 04/21/22 21:05 ALT 38 U/L (7-52) 04/21/22 21:05 Alkaline Phosphatase 86 U/L (34-104) 04/21/22 21:05 Troponin I High Sens 18.9 pg/ml (0-20) 04/22/22 11:00 B-Natriuretic Peptide 443 pg/ml (0-100) H 04/21/22 22:06 Total Protein 8.3 gm/dl (6.0-8.3) 04/21/22 21:05 Albumin 3.9 gm/dl (3.4-5.0) 04/21/22 21:05 Globulin 4.4 gm/dl (2.5-4.0) H 04/21/22 21:05 Albumin/Globulin Ratio 0.9 (0.9-2) 04/21/22 21:05 Urine Color Yellow 04/22/22 00:50 Urine Appearance Clear (Clear) 04/22/22 00:50 Urine pH 5.5 (4.5-7.5) 04/22/22 00:50 Ur Specific [place] 1.011 (1.000-1.030) 04/22/22 00:50 Urine Protein 2+ (Negative) H 04/22/22 00:50 Urine Glucose (UA) Negative (Negative) 04/22/22 00:50 Urine Ketones Negative (Negative) 04/22/22 00:50 Urine Blood Negative (Negative) 04/22/22 00:50 Urine Nitrite Negative (Negative) 04/22/22 00:50 Urine Bilirubin Negative (Negative) 04/22/22 00:50 Urine Urobilinogen Negative (Negative) 04/22/22 00:50 Ur Leukocyte Esterase Negative (Negative) 04/22/22 00:50 Urine WBC (Auto) 0 /hpf (0-5) 04/22/22 00:50 Urine RBC (Auto) 0-4 /hpf (0-4) 04/22/22 00:50 U Hyaline Cast (Auto) 1-5 /lpf (0-5) 04/22/22 00:50 U Epithel Cells (Auto) 5-10 /lpf (0-5) H 04/22/22 00:50 Urine Bacteria (Auto) Negative (Negative) 04/22/22 00:50 SARS-CoV-2, RNA, NAAT NEGATIVE (NEGATIVE) 04/21/22 22:07 Impressions Chest X-Ray 04/21/22 18:42 SINGLE VIEW CHEST CLINICAL HISTORY: Dyspnea. FINDINGS: An AP, portable, upright chest radiograph is compared to study dated 12/12/2020. The heart is enlarged. There is pulmonary vascular congestion. Scarring/atelectasis is noted at the lung bases. No airspace consolidation or large pleural effusion is identified. No pneumothorax is seen. The bony thorax is grossly intact. IMPRESSION: Cardiomegaly with pulmonary vascular congestion. ACT 112: Negative or not required by law. Electronically signed by: Chilango Rivas M.D. 04/21/2022 8:57 PM Venous Doppler Study 04/22/22 08:37 BILATERAL LOWER EXTREMITY VENOUS DOPPLER HISTORY: Acute pain and swelling of the right lower leg DVT COMPARISON STUDY: Duplex venous Doppler study 12/12/2020 FINDINGS: There is normal compressibility, flow, and augmentation within the bilateral lower extremity deep venous systems. IMPRESSION: No DVT within the right or left lower extremity. ACT 112: Negative or not required by law. Electronically signed by: Moise Patricia M.D. 04/22/2022 10:21 AM Medications Administered Current Inpatient Medications Acetaminophen (Acetaminophen 325 Mg Tab) 650 mg PO Q4H PRN PRN Reason: Pain or Fever Stop: 05/22/22 01:49 Aspirin (Aspirin 81 Mg Ectab) 81 mg PO QAM [place] Stop: 05/22/22 08:59 Last Admin: 04/22/22 07:50 Dose: 81 mg Betamethasone/Clotrimazole (Clotrimazole/Betamethasone Cr 15 Gm Tube) 1 appln EXT QAM PRN PRN Reason: AFFECTED AREAS Stop: 05/22/22 01:49 Carvedilol (Carvedilol 25 Mg Tab) 25 mg PO BID [place] Stop: 05/22/22 08:59 Last Admin: 04/22/22 07:52 Dose: 25 mg Dextrose (Dextrose 50% 50 Ml Syringe) 25 - 50 ml IV UD PRN; Protocol PRN Reason: Hypoglycemia Protocol Stop: 05/22/22 02:44 Last Admin: 04/22/22 05:23 Dose: 25 ml Glucagon (Glucagon For Inj 1 Mg Vial) 1 mg IM UD PRN; Protocol PRN Reason: Hypoglycemia Protocol Stop: 05/22/22 02:44 Glucose (Glucose 40% Gel 15 Gm Tube) 15 - 30 gm PO UD PRN; Protocol PRN Reason: Hypoglycemia Protocol Stop: 05/22/22 02:44 Glucose (Glucose 10 Tab/Tube) 4 - 8 tab PO UD PRN; Protocol PRN Reason: Hypoglycemia Protocol Stop: 05/22/22 02:44 Heparin Sodium (Porcine) (Heparin Sod 5,000 Unit/0.5 Ml Vial) 7,500 units SQ Q8 [place] Stop: 05/22/22 05:59 Last Admin: 04/22/22 05:05 Dose: 7,500 units Hydralazine HCl (Hydralazine Hcl 25 Mg Tab) 25 mg PO BID [place] Stop: 05/22/22 08:59 Last Admin: 04/22/22 07:52 Dose: 25 mg Bumetanide 2 mg/ Syringe 8 mls @ 4 mls/min IV BID@0900,1700 [place] Stop: 05/22/22 08:59 Last Admin: 04/22/22 08:02 Dose: 4 mls/min Insulin Aspart (Insulin Aspart Per Unit) 0 units SC ACHS [facility] Stop: 05/22/22 07:29 Last Admin: 04/22/22 12:30 Dose: 8 units Insulin Aspart (Insulin Aspart Per Unit) 0 units SC TODAY@0000,0400 [facility] Stop: 05/23/22 00:00 Insulin Glargine (Lantus Per Unit Charge) 0 units SQ BID [facility]; Protocol Stop: 05/22/22 08:59 Lisinopril (Lisinopril 40 Mg Tab) 40 mg PO QPM [facility] Stop: 05/22/22 20:59 Miscellaneous (Carbohydrates For Hypoglycemia ) 15 - 30 gm PO UD PRN PRN Reason: Hypoglycemia Treatment Stop: 05/22/22 02:44 Miscellaneous Information (Pharmacy Glycemic Mgmt Consult) 1 each N/A UD PRN; Protocol PRN Reason: Consult Stop: 05/22/22 07:53 Nitroglycerin (Nitroglycerin Sl 0.4 Mg/Tab Tab) 0.4 mg SL UD PRN PRN Reason: Chest Pain Stop: 05/22/22 01:49 Pantoprazole Sodium (Pantoprazole 40 Mg Tab) 40 mg PO QAM [facility] Stop: 05/22/22 08:59 Last Admin: 04/22/22 07:53 Dose: 40 mg Polyethylene Glycol (Polyethylene (Miralax) 17 Gm Pack) 17 gm PO DAILY PRN PRN Reason: Constipation Stop: 05/22/22 01:49 Spironolactone (Spironolactone 25 Mg Tab) 25 mg PO DAILY [facility] Stop: 05/22/22 08:59 Last Admin: 04/22/22 07:53 Dose: 25 mg Vitamin B Complex (Vitamin B Complex Tab) 1 tab PO QAM [facility] Stop: 05/22/22 08:59 Last Admin: 04/22/22 07:53 Dose: 1 tab Vitamin D (Cholecalciferol 5,000 Units 125 Mcg Tab) 5,000 units PO DAILY [facility] Stop: 05/22/22 08:59 Last Admin: 04/22/22 07:51 Dose: 5,000 units
--- NOTE | 2022-04-22 14:29 | Electrocardiogram Report ---
Test Reason : Blood Pressure : / mmHG Vent. Rate : 057 BPM Atrial Rate : 057 BPM P-R Int : 212 ms QRS Dur : 114 ms QT Int : 452 ms P-R-T Axes : 026 000 026 degrees QTc Int : 439 ms Sinus bradycardia with 1st degree A-V block Incomplete right bundle branch block Borderline ECG When compared with ECG of 24-JAN-2022 07:39, No significant change was found Confirmed by Wilfredo Joyner ([id number]) on 04/22/2022 2:29:04 PM Referred By: Bárbara Rios Confirmed By:Wilfredo Joyner
[2022-04-22] MEDS: MAGNESIUM OXIDE 400 MG TAB PO SCH ×2 (14:38→21:48)
[2022-04-22] MEDS: LANTUS PER UNIT CHARGE SQ SCH (20:53)
[2022-04-22] MEDS ORDERED: lisinopril 40 MG TAB PO SCH (21:00)
[2022-04-23] MEDS: INSULIN ASPART PER UNIT SC SCH ×7 (00:11→23:30)
[2022-04-23] MEDS: HEPARIN SOD 5,000 UNIT/0.5 ML VIAL SQ SCH (05:06)
--- NOTE | 2022-04-23 07:28 | Cardiology Progress Note ---
Date of Service April 23, 2022 Assessment & Plan (1) Acute on chronic diastolic CHF (congestive heart failure): (2) Hypertension: (3) CHAPINCITO on CPAP: Plan 62-year-old male with acute on chronic diastolic CHF. Exacerbation likely multifactorial due to dietary indiscretions and significant immobility over the last month and a half. Given subacute shortness of breath there is concern for DVT/PE-lower extremity venous duplex negative for DVT unable to proceed with CTA due to CKD. Echocardiogram stable, noting a normal LV systolic function, grade 2 diastolic dysfunction, and moderate concentric LVH. No wall motion abnormalities. Troponins minimally elevated but flat likely due to acute CHF and CKD-unlikely to be related to ACS. -Patient remains mildly hypervolemic on exam but responding well to IV diuresis- Continue IV Bumex 2 mg BID today, will likely transition to PO tomorrow. (Home dose of Bumex 2-3 mg daily) -Continue to trend BMP. Potassium goal of 4.0 and mag goal at 2.0, replete as necessary. -2 g sodium diet -Strict I&O's and standing daily weights -Blood pressure was initially elevated upon admission but now improving with diuresis. Continue all medications as currently ordered. Upon review of outpatient records it appears that hydralazine was recommended to be taken 3 times daily. Should blood pressures not improved we will plan on increasing hydralazine at this time. -Patient with known obstructive sleep apnea, wears CPAP at night. Case discussed with Dr. Willard. We will follow. Admission and Anticipated Discharge Date Admission Date: April 22, 2022 Supervising Physician Co-Signing Physician Notes Supervising Physician Attestation: I have personally performed a history and physical examination on the patient. I agree with the FIRE ALARM OPERATOR's findings and plan as documented with the following additions. Subjective: Patient with interval improvement. Notes slight shortness of breath and cough, but improved compared to yesterday. Exam: Mildly reduced breath sounds in the bases Cardiovascular: Regular rhythm, no murmur, trace edema Assessment and Plan: Acute on chronic diastolic heart failure Continue Bumex 2 mg twice daily. Josh Willard, DO Subjective 62-year-old male with acute on chronic diastolic CHF. Echocardiogram revealing a stable LV systolic function of 55 to 60%, grade 2 diastolic dysfunction, and moderate concentric LVH. Patient initially presented due to shortness of breath x3 to 4 weeks. 04/22: Patient presented hypervolemic on exam-chest x-ray showing pulmonary edema Patient diuresed with IV Bumex 2 mg twice daily. Bilateral lower extremity venous duplex done due to left knee injury and being immobile x5 weeks-study negative for DVT 04/23: Tele: SR 1st degree AVB, 50-60s I&O: +700 (noted unmeasured voids) Weight: 124.8 kg >> 122.2kg Chart and telemetry reviewed. Patient seen and examined at bedside. Upon entrance into the room patient resting comfortably in bed. States that he is feeling "much better". Continues to have some dyspnea with exertion and coughing with deep inhalation. Notes an improvement in his orthopnea. No lower extremity edema. Mild abdominal bloating. Review of Systems Review of Systems: All systems reviewed & are unremarkable except as noted in HPI & below Physical Exam Constitutional: WD/WN, vitals as above no acute distress Neck: normal visual inspection and trachea midline Respiratory: normal respiratory effort and + cough (With deep inspiration); no respiratory distress Auscultation: + rales; no rhonchi and no wheezes Cardiovascular: Rate/Rhythm: regular rate and regular rhythm Heart Sounds: normal S1 and normal S2; no murmur Vessels: + JVD Extremities: no edema Gastrointestinal (Abdomen): Inspection/Auscultation: + abdomen distended (Taut) Percussion/Palpation: + abdomen firm; abdomen nontender Musculoskeletal: Gait: + limp (Left leg discomfort) Knee: + surgical incision (Left knee) and + limited ROM of knee (Left knee) Skin: no rashes, warm and dry Psychiatric: A+Ox3, euthymic affect Results & Data ([facility]) Vital Signs (Past 12 Hours) Vital Signs Temp Pulse Pulse Resp BP Pulse Ox O2 Del Method 04/23/22 03:15 36.5 C 53 L 16 134/71 95 CPAP 04/22/22 23:27 36.6 C 56 L 16 169/78 H 95 CPAP 04/22/22 22:51 54 L 04/22/22 19:31 36.6 C 57 L 18 164/83 H 92 Room Air Laboratory Results Cardiac Enzymes 04/22/22 04/23/22 Range/Units 11:00 07:27 AST 49 H (13-39) U/L Troponin I High Sens 18.9 (0-20) pg/ml Comprehensive Metabolic Panel 04/23/22 Range/Units 07:27 Sodium 136 (136-145) mmol/L Potassium 4.1 (3.5-5.1) mmol/L Chloride 99 (98-107) mmol/L Carbon Dioxide 29 (21-32) mmol/L BUN 40 H (6-23) mg/dl Creatinine 1.98 H D (0.6-1.4) mg/dl Glucose 79 (70-99(Fasting)) mg/dl Calcium 9.5 (8.5-10.1) mg/dl AST 49 H (13-39) U/L ALT 34 (7-52) U/L Alkaline Phosphatase 72 (34-104) U/L Total Protein 7.7 (6.0-8.3) gm/dl Albumin 3.6 (3.4-5.0) gm/dl Intake and Output 04/22/22 04/23/22 04/23/22 22:59 06:59 14:59 Intake Total 400 / 1600 400 / 1600 Balance 400 / 700 400 / 700 Intake: Oral 400 / 1600 400 / 1600 Other: # Unmeasured Voids 3 Weight 124.8 kg 122.2 kg Weight Measurement Method Built in [facility] Built in [facility]
[2022-04-23 08:10] LABS: Albumin Globulin Ratio 0.9 (0.9-2); Albumin Level 3.6 gm/dl (3.4-5.0); BUN Creatinine Ratio 20.2 (10-20); Bilirubin,Total 0.7 mg/dl (0.2-1.0); Calcium 9.5 mg/dl (8.5-10.1); Creatinine Clr Calc Pharmacy 51.5 ml/min; Est GFR (African American) 40.5 ml/min; Est GFR (Non-African American) 34.9 ml/min; Globulin 4.1 gm/dl (2.5-4.0); Phosphorus 5.6 mg/dl (2.5-4.9); Potassium 4.1 mmol/L (3.5-5.1); Total Protein 7.7 gm/dl (6.0-8.3)
[2022-04-23] MEDS: BUMETANIDE 2 MG in SYRINGE 0 ML IV SCH ×2 (09:28→17:40)
[2022-04-23] MEDS: ASPIRIN 81 MG ECTAB PO SCH (09:28)
[2022-04-23] MEDS: carvediloL 25 MG TAB PO SCH ×2 (09:30→21:24)
[2022-04-23] MEDS: CHOLECALCIFEROL 5,000 UNITS 125 MCG TAB PO SCH (09:30)
[2022-04-23] MEDS: hydrALAZINE HCL 25 MG TAB PO SCH ×2 (09:31→21:00)
[2022-04-23] MEDS: PANTOprazole 40 MG TAB PO SCH (09:31)
[2022-04-23] MEDS: MAGNESIUM OXIDE 400 MG TAB PO SCH ×3 (09:31→21:00)
[2022-04-23] MEDS: VITAMIN B COMPLEX TAB PO SCH (09:32)
[2022-04-23] MEDS: SPIRONOLACTONE 25 MG TAB PO SCH (09:32)
[2022-04-23] MEDS: LANTUS PER UNIT CHARGE SQ SCH ×2 (09:54→20:57)
--- NOTE | 2022-04-23 12:11 | Pharmacy Report ---
Pharmacy Glycemic Short Note 2 - Date of Service April 23, 2022 - Glycemic Short BSG Results (Last 24 hours): 04/22/22 04/22/22 04/23/22 16:16 20:10 00:09 Glucose POC Glucose 88 165 H 105 H 04/23/22 04/23/22 04/23/22 03:37 07:21 07:27 Glucose 79 POC Glucose 98 77 04/23/22 11:16 Glucose POC Glucose 127 H OUTPATIENT ANTIDIABETIC REGIMEN: Per Outpatient isinger Documentation: * Tresiba 180 units daily in the morning * Metformin ER 2000 mg daily * Novolog 40 units with all meals + CF 1:20 over 150 + 20 units at bedtime (if high) * additional 5-10 units with meals if high carb * A1c 7.2% 04/22/22 ASSESSMENT: 04/23: * Patient received a total of 109 units of insulin, 80 of which were basal. * BSGs remain an the lower end [id number] mg/dL over the past 24 hours. Will reduce lantus scale to reduce total daily dose today. Will continue to monitor closely given large reduction in inpatient insulin needs the far * Patient is tolerating a diet. 04/22 * Patient admitted with shortness of breath ongoing past month with acute worsening in the last week, not improved with increased in diuretic. * Outpatient A1c suggests adequate outpatient control, slightly above goal of <7.0% * Patient with high insulin needs outpatient, was hypoglycemic overnight, AM lantus dose significantly reduced, will set scale for PM to provide up to 100 total for the day * Novolog parameters set with home correction factor of 20 and carb ratio between a weight based stress of 2 and 3. Will adjust as needed with further BSGs PLAN FOR INPATIENT GLYCEMIC CONTROL: * Hold outpatient oral diabetes medications * Basal insulin * Lantus 30 units SQ this AM, Scale for 30/40/50 for PM * Bolus insulin * NovoLog per scale ACHS or Q6hrs while NPO * Goal Range: Low 120 mg/dL - High 160 mg/dL * Correction Factor: 20 mg/dL/unit * Nutritional / Prandial insulin per carb ratio of 1 unit per 5 grams CHO consumed
--- NOTE | 2022-04-23 18:28 | Hospitalist Progress Note ---
Date of Service April 23, 2022 Assessment & Plan (1) Acute on chronic diastolic CHF (congestive heart failure): Plan (1) Acute on chronic diastolic CHF (congestive heart failure): Plan: - presented with progressive shortness of breath, mild LE edema - Admitting CXR with pulm vascular congestion and small left sided pleural effusion -Cardiology on board, managing diuresis - Strict I/O - telemetry monitoring - continue home medications (2) Chronic kidney disease: Plan: - Cr baseline around 1.5 - IV diuresis as above - trend Cr, up trended today, labs in a.m. - avoid nephrotoxic medications, will hold lisinopril and Aldactone. (3) Mixed dyslipidemia: Plan: - not on statin - consider starting in setting of DM and HTN, HFpEF in consultation with Cardiology - LFTs fairly stable - will get LFTs on AM labs Other chronic medical conditions: T2DM, hepatic asteatosis, CHAPINCITO on CPAP, HTN -->> continue with/resume home meds as and when appropriate. DVT prophylaxis: Heparin subcu declined, SCDs and ambulation. CODE STATUS: Full code Dispo: Telemetry Admission and Anticipated Discharge Date Admission Date: April 22, 2022 Subjective Patient seen and examined at bedside as a follow-up of acute on chronic diastolic CHF. Patient was lying in bed, on room air, NAD, denies no new acute event overnight, reports eating okay and moving bowels okay, reports improving cough and shortness of breath and reports feeling stronger, patient reported pain with Heparin subcutaneous injection and requested to not have subcutaneous injection, patient advised to continue to move around in the room every few hours and SCDs was put for DVT prophylaxis, patient denies any fever/chills/sore throat/belly pain/chest pain/other review of symptoms. Physical Exam Physical Exam: GENERAL: Alert and oriented x3. NAD, on RA. Obese class II HEENT: No pallor, no icterus. Pupils equal, round and reactive to light. Oral mucosa moist. NECK: No JVD, no neck masses. HEART: S1 and S2 heard. Regular rate and rhythm. No murmur, no gallop. RESPIRATORY SYSTEM: Normal AP diameter. No accessory muscle use. No wheezing, mid to b/b crackles. ABDOMEN: Soft, bowel sounds present, nontender, no distention. CENTRAL NERVOUS SYSTEM: No facial droop. Speech is clear. Obeys simple commands. Moves extremities. EXTREMITIES: No edema, no erythema seen. Results & Data Results & Data ([facility]) Vital Signs (Past 12 Hours) Vital Signs Temp Pulse Pulse Resp BP Pulse Ox O2 Del Method 04/23/22 16:00 51 L 04/23/22 15:29 36.6 C 51 L 17 142/65 H 94 Room Air 04/23/22 11:17 36.6 C 55 L 18 128/64 94 Room Air 04/23/22 08:00 49 L 04/23/22 07:54 36.5 C 55 L 18 158/80 H 95
[2022-04-23] MEDS ORDERED: carvediloL 3.125 MG TAB PO STA (21:20)
[2022-04-24] MEDS: INSULIN ASPART PER UNIT SC SCH ×6 (03:42→23:42)
[2022-04-24 06:54] LABS: Hematocrit (blood only) 39.3 % (40.1-51.0); Hemoglobin 13.4 g/dl (14.0-18.0); Mean Corpuscular Hemoglobin 28.5 pg (25.0-34.0); Mean Corpuscular Hgb Conc 34.1 g/dL (32.0-36.0); Mean Corpuscular Volume 83.6 fL (80.0-100.0); Platelet Count 203 K/uL (130-400); RDW Coefficient of Variation 13.2 % (11.5-14.5); White Blood Count 8.48 K/ul (4.8-10.8)
[2022-04-24 07:34] LABS: BUN Creatinine Ratio 20.3 (10-20); Calcium 9.6 mg/dl (8.5-10.1); Creatinine Clr Calc Pharmacy 43.2 ml/min; Est GFR (African American) 32.7 ml/min; Est GFR (Non-African American) 28.2 ml/min; Magnesium 2.4 mg/dl (1.7-2.4); Phosphorus 6.1 mg/dl (2.5-4.9); Potassium 3.8 mmol/L (3.5-5.1)
--- NOTE | 2022-04-24 08:10 | Cardiology Progress Note ---
Date of Service April 24, 2022 Assessment & Plan (1) Acute on chronic diastolic CHF (congestive heart failure): (2) Hypertension: (3) CHAPINCITO on CPAP: Plan 62-year-old male with acute on chronic diastolic CHF. Exacerbation likely multifactorial due to dietary indiscretions and significant immobility over the last month and a half. Given subacute shortness of breath there is concern for DVT/PE-lower extremity venous duplex negative for DVT unable to proceed with CTA due to CKD. Echocardiogram stable, noting a normal LV systolic function, grade 2 diastolic dysfunction, and moderate concentric LVH. No wall motion abnormalities. Troponin minimally elevated but flat likely due to acute CHF and CKD-unlikely to be related to ACS. -Worsening renal function, Patient appears euvolemic on exam. Most likely hypovolemic. Recommend holing IV Bumex today- will plan on resuming home dose of Bumex 2mg in the morning and 1 mg in the afternoon at discharge. -Discontinue Aldactone at discharge- [place] [facility] [place]- this was stopped in January in favor of Eplerenone, which was unable to be obtained due to cost- can reassess need as an outpatient. -BP are controlled- Lisinopril held due to worsening renal dysfunction. Can consider restarting once renal function is at baseline. -Future considerations of increasing Hydralazine to 25 mg TID should BP readings warrant. -HR controlled in the 50-60s. No significant pauses or bradycardia over night- continue Coreg 25 mg BID. -Continue to trend BMP. Potassium goal of 4.0 and mag goal at 2.0, replete as necessary. -2 g sodium diet -Strict I&O's and standing daily weights -Patient with known obstructive sleep apnea, wears CPAP at night. Case discussed with Dr. Willard. We will follow. Admission and Anticipated Discharge Date Admission Date: April 22, 2022 Supervising Physician Co-Signing Physician Notes I personally saw and performed a history and physical examination. Agree with REGGIE Yates's findings and plan as outlined with additions as below. S: pt feels well. Telemetry =SR in the 60s. Exam: CV :regular rhythm, no murmurs, no edema Impression: As above Creatinine trended up to 2.36 today. Hold diuretic therapy. Repeat BMP in am. If renal function stable DC on bumex 3 mg daily. DC spironolactone due to pts concern of gynecomastia symptoms. He had not started eplerenone due to high cost. DVT prophylaxis: ambulate as tolerated. SQ heparin DC due to patient have a "cramp" at injection site. Subjective 62-year-old male with acute on chronic diastolic CHF. Echocardiogram revealing a stable LV systolic function of 55 to 60%, grade 2 diastolic dysfunction, and moderate concentric LVH. Patient initially presented due to shortness of breath x3 to 4 weeks. 04/22: Patient presented hypervolemic on exam-chest x-ray showing pulmonary edema Patient diuresed with IV Bumex 2 mg twice daily. Bilateral lower extremity venous duplex done due to left knee injury and being immobile x5 weeks-study negative for DVT Echo: LVEF 55 to 60% with no wall motion abnormalities. Grade 2 diastolic dysfunction. Mild aortic sclerosis without stenosis. 04/23: Improved volume status. Receiving Bumex 2mg BID 04/24: Tele: SR 1st degree AVB, 50-60s I&O: -640 mL (noted unmeasured voids) Weight: 124.8 kg >> 122.2kg Chart and telemetry reviewed. Patient seen and examined at bedside. Worsening renal function. Scr baseline around 1.4-1.7. Currently 2.36. [place] [facility] [place]22- "Stop Aldactone. Continue Bumex 1mg BID with additional 1 mg as needed for fluid retention and sob." Upon entrance into the room patient resting comfortably in bed. States that he is feeling well. Continues to have a mild cough with deep inspiration. No shortness of breath at rest or with exertion. No orthopnea. Denies abdominal bloating. No lower extremity edema. Per the patient he was to stop Aldactone in favor of Eplerenone due to breast tenderness- however this was not done due to cost- so he remained on Aldactone up until this admission. Review of Systems Review of Systems: All systems reviewed & are unremarkable except as noted in HPI & below Physical Exam Constitutional: WD/WN, vitals as above no acute distress Neck: normal visual inspection and trachea midline Respiratory: normal respiratory effort and + cough (With deep inspiration); no respiratory distress Auscultation: no rales, no rhonchi and no wheezes Cardiovascular: Rate/Rhythm: regular rate and regular rhythm Heart Sounds: normal S1 and normal S2; no murmur Vessels: no JVD Extremities: no edema Gastrointestinal (Abdomen): Inspection/Auscultation: abdomen not distended Percussion/Palpation: abdomen soft; abdomen nontender Musculoskeletal: Gait: + limp (Left leg discomfort) Knee: + surgical incision (Left knee) and + limited ROM of knee (Left knee) Skin: no rashes, warm and dry Psychiatric: A+Ox3, euthymic affect Results & Data ([facility]) Vital Signs (Past 12 Hours) Vital Signs Temp Pulse Pulse Resp BP Pulse Ox O2 Del Method 04/24/22 03:41 36.4 C L 54 L 12 122/58 L 95 CPAP 04/23/22 22:57 58 L 04/23/22 22:52 36.5 C 58 L 18 141/66 H 95 Laboratory Results Cardiac Enzymes 04/23/22 Range/Units 07:27 AST 49 H (13-39) U/L CBC 04/24/22 Range/Units 06:33 WBC 8.48 (4.8-10.8) K/ul RBC 4.70 (4.63-6.08) M/uL Hgb 13.4 L (14.0-18.0) g/dl Hct 39.3 L (40.1-51.0) % Plt Count 203 (130-400) K/uL Comprehensive Metabolic Panel 04/23/22 04/24/22 Range/Units 07:27 06:33 Sodium 136 133 L (136-145) mmol/L Potassium 4.1 3.8 (3.5-5.1) mmol/L Chloride 99 97 L (98-107) mmol/L Carbon Dioxide 29 25 (21-32) mmol/L BUN 40 H 48 H (6-23) mg/dl Creatinine 1.98 H D 2.36 H D (0.6-1.4) mg/dl Glucose 79 69 L (70-99(Fasting)) mg/dl Calcium 9.5 9.6 (8.5-10.1) mg/dl AST 49 H (13-39) U/L ALT 34 (7-52) U/L Alkaline Phosphatase 72 (34-104) U/L Total Protein 7.7 (6.0-8.3) gm/dl Albumin 3.6 (3.4-5.0) gm/dl Intake and Output 04/23/22 04/24/22 04/24/22 22:59 06:59 14:59 Intake Total 1335 / 1810 100 / 1810 Output Total 2250 / 3150 200 / 3150 Balance -915 / -1340 -100 / -1340 Intake: Oral 975 / 1450 100 / 1450 Tube Feeding 360 / 360 Output: Urine 2250 / 3150 200 / 3150 Other: Weight 122.2 kg
[2022-04-24] MEDS: CHOLECALCIFEROL 5,000 UNITS 125 MCG TAB PO SCH (08:43)
[2022-04-24] MEDS: ASPIRIN 81 MG ECTAB PO SCH (08:43)
[2022-04-24] MEDS: PANTOprazole 40 MG TAB PO SCH (08:44)
[2022-04-24] MEDS: VITAMIN B COMPLEX TAB PO SCH (08:44)
[2022-04-24] MEDS: MAGNESIUM OXIDE 400 MG TAB PO SCH ×3 (08:44→21:23)
[2022-04-24] MEDS: LANTUS PER UNIT CHARGE SQ SCH ×2 (08:46→21:25)
[2022-04-24] MEDS: hydrALAZINE HCL 25 MG TAB PO SCH ×2 (08:47→21:23)
[2022-04-24] MEDS: carvediloL 25 MG TAB PO SCH ×2 (08:47→21:22)
--- NOTE | 2022-04-24 12:32 | Pharmacy Report ---
Pharmacy Glycemic Short Note 2 - Date of Service April 24, 2022 - Glycemic Short BSG Results (Last 24 hours): 04/23/22 04/23/22 04/23/22 16:18 20:05 23:25 Glucose POC Glucose 97 142 H 89 04/24/22 04/24/22 04/24/22 03:35 06:33 07:40 Glucose 69 L POC Glucose 91 76 04/24/22 11:32 Glucose POC Glucose 103 H OUTPATIENT ANTIDIABETIC REGIMEN: Per Outpatient ising Documentation: * Tresiba 180 units daily in the morning * Metformin ER 2000 mg daily * Novolog 40 units with all meals + CF 1:20 over 150 + 20 units at bedtime (if high) * additional 5-10 units with meals if high carb * A1c 7.2% 04/22/22 ASSESSMENT: 04/24: * Patient received a total of 86 units of insulin yesterday, 70 of which were basal. * BSGs were 99-124-19-63-24-00-10s mg/dL over the past 24 hours. Fasting BSG continues to be surprisingly on the lower end given home dose requirements, will reduce basal dosing scale further today. * Patient continues to tolerate a diet. 04/23: * Patient received a total of 109 units of insulin, 80 of which were basal. * BSGs remain an the lower end 51-110-840-98-77-125 mg/dL over the past 24 hours. Will reduce lantus scale to reduce total daily dose today. Will continue to monitor closely given large reduction in inpatient insulin needs the far * Patient is tolerating a diet. 04/22 * Patient admitted with shortness of breath ongoing past month with acute w orsening in the last week, not improved with increased in diuretic. * Outpatient A1c suggests adequate outpatient control, slightly above goal of <7.0% * Patient with high insulin needs outpatient, was hypoglycemic overnight, AM lantus dose significantly reduced, will set scale for PM to provide up to 100 total for the day * Novolog parameters set with home correction factor of 20 and carb ratio bet ween a weight based stress of 2 and 3. Will adjust as needed with further BSGs PLAN FOR INPATIENT GLYCEMIC CONTROL: * Hold outpatient oral diabetes medications * Basal insulin * Lantus Scale BID (25,35,45 units based on BSG) * Bolus insulin * NovoLog per scale ACHS or Q6hrs while NPO * Goal Range: Low 120 mg/dL - High 160 mg/dL * Correction Factor: 20 mg/dL/unit * Nutritional / Prandial insulin per carb ratio of 1 unit per 5 grams CHO consumed
--- NOTE | 2022-04-24 16:51 | Hospitalist Progress Note ---
Date of Service April 24, 2022 Assessment & Plan (1) Acute on chronic diastolic CHF (congestive heart failure): Plan (1) Acute on chronic diastolic CHF (congestive heart failure): Plan: - presented with progressive shortness of breath, mild LE edema - Admitting CXR with pulm vascular congestion and small left sided pleural effusion -Cardiology on board, managing diuresis -Plan to hold Bumex, BMP in a.m. and if renal function is stable then DC on Bumex 3 mg daily. -DC spironolactone due to patient's concern of gynecomastia. Patient had not started eplerenone due to high cost. - Strict I/O - telemetry monitoring - continue home medications (2) NEMESIO over chronic kidney disease: Plan: - Cr baseline around 1.5 - IV diuresis as above, BMP in a.m., creatinine continues to uptrend - avoid nephrotoxic medications, will hold Bumex, lisinopril and Aldactone. Aldactone to be discontinued upon discharge. (3) Mixed dyslipidemia: Plan: - not on statin - consider starting in setting of DM and HTN, HFpEF in consultation with Cardiology - LFTs fairly stable Other chronic medical conditions: T2DM, hepatic asteatosis, CHAPINCITO on CPAP, HTN -- >> continue with/resume home meds as and when appropriate. DVT prophylaxis: Heparin subcu declined, SCDs and ambulation. CODE STATUS: Full code Dispo: Telemetry Admission and Anticipated Discharge Date Admission Date: April 22, 2022 Subjective Patient seen and examined at bedside as a follow-up of acute on chronic diastolic CHF. Patient was sitting up in chair, on room air, NAD, denies any new acute event overnight, reports eating okay and moving bowels okay, reports improving cough and shortness of breath and reports feeling back to baseline, patient reports moving around in the room every so frequently, patient advised to continue to move around in the room every few hours and SCDs was put for DVT prophylaxis as patient cannot tolerate heparin injection due to pain, patient denies any fever/chills/sore throat/belly pain/chest pain/other review of symptoms. Physical Exam Physical Exam: GENERAL: Alert and oriented x3. NAD, on RA. Obese class II HEENT: No pallor, no icterus. Pupils equal, round and reactive to light. Oral mucosa moist. NECK: No JVD, no neck masses. HEART: S1 and S2 heard. Regular rate and rhythm. No murmur, no gallop. RESPIRATORY SYSTEM: Normal AP diameter. No accessory muscle use. No wheezing, b/b crackles. ABDOMEN: Soft, bowel sounds present, nontender, no distention. CENTRAL NERVOUS SYSTEM: No facial droop. Speech is clear. Obeys simple commands. Moves extremities. EXTREMITIES: No edema, no erythema seen. Results & Data Results & Data ([facility]) Vital Signs (Past 12 Hours) Vital Signs Temp Pulse Pulse Resp BP Pulse Ox O2 Del Method 04/24/22 15:36 36.5 C 51 L 20 124/55 L 95 Room Air 04/24/22 11:00 36.7 C 69 18 114/79 97 04/24/22 08:00 50 L 04/24/22 07:30 36.8 C 59 L 20 134/61 98 04/24/22 08:45 36.7 C 61 18 128/56 L 98 Room Air
[2022-04-25] MEDS: INSULIN ASPART PER UNIT SC SCH ×5 (03:34→21:05)
--- NOTE | 2022-04-25 07:36 | Cardiology Progress Note ---
Date of Service April 25, 2022 Assessment & Plan (1) Acute on chronic diastolic CHF (congestive heart failure): (2) Hypertension: (3) [place]IN[place]O on CPAP: Plan 62-year-old male with acute on chronic diastolic CHF. Exacerbation likely multifactorial due to dietary indiscretions and significant immobility over the last month and a half. Given subacute shortness of breath there is concern for DVT/PE-lower extremity venous duplex negative for DVT unable to proceed with CTA due to CKD. Echocardiogram stable, noting a normal LV systolic function, grade 2 diastolic dysfunction, and moderate concentric LVH. No wall motion abnormalities. Troponin minimally elevated but flat likely due to acute CHF and CKD-unlikely to be related to ACS. -Worsening renal function, Patient appears euvolemic on exam. Most likely hypovolemic. Continue to hold Bumex. -Follows with nephrology as an outpatient (Dr. Greer), consider inpatient consult. Will need to reassess diuretic need at discharge. -Continue to trend BMP. Potassium goal of 4.0 and mag goal at 2.0, replete as necessary. -Remain off Aldactone per [place] [facility] [place]- this was stopped in January in favor of Eplerenone, which was unable to be obtained due to cost. -BP are controlled- Lisinopril held due to worsening renal dysfunction. Can consider restarting once renal function is at baseline. -Future considerations of increasing Hydralazine to 25 mg TID should BP readings warrant. -HR controlled in the 50-60s. No significant pauses or bradycardia over night- continue Coreg 25 mg BID. -2 g sodium diet -Strict I&O's and standing daily weights -Patient with known obstructive sleep apnea, wears CPAP at night. Case discussed with Dr. Willard. We will follow. Admission and Anticipated Discharge Date Admission Date: April 22, 2022 Supervising Physician Co-Signing Physician Notes Supervising Physician Attestation: I have personally performed a history and physical examination on the patient. I agree with the physician microbiology lab assistant's findings and plan as documented with the following additions. Subjective: No complaints. Was walking well in the hallway yesterday. Exam: Cardiovascular regular rhythm, no murmurs, no edema Data: Creatinine 3.21 today Assessment and Plan: Acute on chronic heart failure with preserved EF NEMESIO -Holding diuretics. Nephrology input noted and appreciated. DVT prophylaxis: Patient did not tolerate subcutaneous heparin injections. Continue ambulation. Josh Willard, DO Subjective 62-year-old male with acute on chronic diastolic CHF. Echocardiogram revealing a stable LV systolic function of 55 to 60%, grade 2 diastolic dysfunction, and moderate concentric LVH. Patient initially presented due to shortness of breath x3 to 4 weeks. 04/22: Patient presented hypervolemic on exam-chest x-ray showing pulmonary edema Patient diuresed with IV Bumex 2 mg twice daily. Bilateral lower extremity venous duplex done due to left knee injury and being immobile x5 weeks-study negative for DVT Echo: LVEF 55 to 60% with no wall motion abnormalities. Grade 2 diastolic dysfunction. Mild aortic sclerosis without stenosis. 04/23: Improved volume status. Receiving Bumex 2mg BID 04/24: Creatinine trended up to 2.36-Bumex held. Prior concerns of spironolactone causing gynecomastia symptoms. Did not start eplerenone as an outpatient due to high cost. SQ heparin discontinued due to a cramping sensation at the injection site 04/25: Tele: SR 1st degree AVB, 50-60s I&O: -830 mL (noted unmeasured voids) Weight: 124.8 kg >> 122.4 kg Chart and telemetry reviewed. Patient seen and examined at bedside. Worsening renal function. Scr baseline around 1.4-1.7. Currently 3.21 Upon entrance into the room patient resting comfortably in the chair. States that he is feeling well. No shortness of breath at rest or with exertion. Cough resolved. No orthopnea. Denies abdominal bloating. No lower extremity edema. Disappointed regarding his renal function. Review of Systems Review of Systems: All systems reviewed & are unremarkable except as noted in HPI & below Physical Exam Constitutional: WD/WN, vitals as above no acute distress Neck: normal visual inspection and trachea midline Respiratory: normal respiratory effort; no respiratory distress and no cough Auscultation: no rales, no rhonchi and no wheezes Cardiovascular: Rate/Rhythm: regular rate and regular rhythm Heart Sounds: normal S1 and normal S2; no murmur Vessels: no JVD Extremities: no edema Gastrointestinal (Abdomen): Inspection/Auscultation: abdomen not distended Percussion/Palpation: abdomen soft and + abdomen firm; abdomen nontender Musculoskeletal: Gait: + limp (Left leg discomfort) Knee: + surgical incision (Left knee) and + limited ROM of knee (Left knee) Skin: no rashes, warm and dry Psychiatric: A+Ox3, euthymic affect Results & Data ([facility]) Vital Signs (Past 12 Hours) Vital Signs Temp Pulse Pulse Resp BP Pulse Ox O2 Del Method 04/25/22 07:15 36.5 C 53 L 18 124/65 96 Room Air 04/25/22 03:00 36.6 C 56 L 22 129/63 93 BiPAP 04/24/22 23:00 36.8 C 54 L 20 154/68 H 95 BiPAP 04/24/22 22:53 54 L 04/24/22 20:36 Room Air Laboratory Results Comprehensive Metabolic Panel 04/25/22 Range/Units 06:37 Sodium 130 L (136-145) mmol/L Potassium 4.2 (3.5-5.1) mmol/L Chloride 94 L (98-107) mmol/L Carbon Dioxide 26 (21-32) mmol/L BUN 57 H (6-23) mg/dl Creatinine 3.21 H D (0.6-1.4) mg/dl Glucose 84 (70-99(Fasting)) mg/dl Calcium 9.1 (8.5-10.1) mg/dl Intake and Output 04/24/22 04/25/22 04/25/22 22:59 06:59 14:59 Intake Total 560 / 1460 200 / 1460 Output Total 400 / 1125 525 / 525 Balance 160 / 335 200 / 335 -525 / -525 Intake: Oral 560 / 1460 200 / 1460 Output: Urine 400 / 1125 525 / 525 Other: Weight 122.4 kg Weight Measurement Method Built in [facility]
[2022-04-25 08:11] LABS: BUN Creatinine Ratio 17.8 (10-20); Calcium 9.1 mg/dl (8.5-10.1); Creatinine Clr Calc Pharmacy 31.8 ml/min; Est GFR (African American) 22.6 ml/min; Est GFR (Non-African American) 19.5 ml/min; Potassium 4.2 mmol/L (3.5-5.1)
[2022-04-25] MEDS: carvediloL 25 MG TAB PO SCH ×2 (08:34→21:05)
[2022-04-25] MEDS: ASPIRIN 81 MG ECTAB PO SCH (08:34)
[2022-04-25] MEDS: PANTOprazole 40 MG TAB PO SCH (08:34)
[2022-04-25] MEDS: CHOLECALCIFEROL 5,000 UNITS 125 MCG TAB PO SCH (08:34)
[2022-04-25] MEDS: hydrALAZINE HCL 25 MG TAB PO SCH ×2 (08:35→20:49)
[2022-04-25] MEDS: VITAMIN B COMPLEX TAB PO SCH (08:35)
[2022-04-25] MEDS: MAGNESIUM OXIDE 400 MG TAB PO SCH (08:35)
[2022-04-25] MEDS: LANTUS PER UNIT CHARGE SQ SCH ×2 (08:45→21:04)
--- NOTE | 2022-04-25 12:10 | Nephrology Consultation ---
Date of Consultation April 25, 2022 Assessment & Plan (1) NEMESIO (acute kidney injury): Non-oliguric. Etiology unclear. Suspect a component of intravascular depletion and associated decreased EAV. BP acceptable. Medications are appropriate for kidney function. Diuretics have appropriately been held. Lisinopril also appropriately held. I agree with discontinuation of spironolactone. No changes in medical therapy were mad at this time. Thankfully, electrolytes and volume status are acceptable. 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 For additional evaluation, a renal US and urine studies have been requested. I will follow up with Tony when results are available. (2) Acute on chronic diastolic CHF (congestive heart failure): Volume status acceptable. Notable symptomatic improvement. Diuretics held. Document strict I/O's. Cardiology consultation apprecaited. (3) Chronic kidney disease: CKD III (baseline creatinine 1.5-1.9 mg/dL). History of nephrotic range proteinuria in the past which improved to 0.6 g/g on most recent assessment with ACEi use. Urine has been acellular by history. UIEP without monoclonal abnormality. CKD attributed to DKD. Followed by Dr. Mccormick. History of Present Illness Reason for Consultation: NEMESIO/CKD Requesting Physician: Cayden Holt MD Attending Physician: Cayden Holt MD History of Present Illness Mr. Tony Delong is a 62 year-old male with CKD, DM, obesity, NAFLD, CHAPINCITO, hyperlipidemia, hypertension, GERD/Arreola's esophagus, OA/DJD, and diastolic CHF. He follows in the outpatient nephrology clinic with Dr. Mccormick. Tony was recently seen in the clinic in January. At that time serum creatinine was 1.92 mg/dL. Baseline creatinine has been ~1.5-1.92 mg/dL. CKD attributed to diabetic kidney disease. Prior history of NEMESIO reported. Tony was seen and evaluated with his son at the bedside this morning. Overall, he is feeling well and was hoping to be discharged home today. Unfortunately, laboratory studies have demonstrated progressive kidney dysfunction. Tony is non-oliguric. Serum creatinine measured at 3.21 mg/dL this AM. Creatinine 2.36 mg/dL yesterday and 1.98 mg/dL on Thursday. Lisinopril has been held since yesterday and diuretics were discontinued due to rising serum creatinine. Tony presented to [facility] on 04/21 with dyspnea on exertion. He notes that several weeks prior he had suffered an injury to his left knee requiring immobilization. He had been very sedentary with progressive decline in activity tolerance. He described evidence of increased fluid retention as well. CXR on admission also notable for pulmonary vascular congestion. Tony is maintained on Bumex 2-3 mg daily at home. He diuresed effectively with 2 mg BID IV this hospitalizations. Symptoms quickly improved. Consideration of possible DVT/PE was evaluated with LE duplex which was negative. CTA avoided due to kidney dysfunction. Home medications have also included spironolactone. Unfortunately, Tony had developed gynecomastia. Dr. Mccormick had attempted to transition to Finerenone but the medication was cost prohibitive. He does have a history of recurrent UTI and SGLT2i have been avoided. No new medications have been added. TTE demonstrating LVEF 55-60%, no WMA, aortic sclerosis without notable valvular heart disease. Prior evaluation of kidney dysfunction notable for UIEP which was negative for any monoclonal process. A2 albuminuria by history. Allergies Allergy/AdvReac Type Severity Reaction Status Date / Time Sulfa (Sulfonamide AdvReac Intermediate Hives Verified 04/21/22 22:33 Antibiotics) Home Medications Medication Instructions Recorded Confirmed Type aspirin 81 mg tablet,delayed 81 mg PO QAM 12/12/20 04/21/22 History release (John Low Dose Aspirin) clotrimazole-betamethasone 1 1 applic topical QAM PRN AFFECTED 12/12/20 04/21/22 History %-0.05 % topical cream AREAS insulin aspart U-100 100 unit/mL 0 sliding scale dose subcut TID 12/12/20 04/21/22 History (3 mL) subcutaneous pen (Novolog per sliding scale Flexpen U-100 Insulin aspart) lisinopril 40 mg tablet 40 mg PO QPM 12/12/20 04/21/22 History metformin 500 mg tablet,extended 2,000 mg PO QAM 12/12/20 04/21/22 History release 24 hr vitamin B complex 1 tab PO QAM 12/12/20 04/21/22 History acetaminophen 500 mg tablet 500 mg PO Q6H PRN Pain 01/28/21 04/21/22 History (Tylenol Extra Strength) coenzyme Q10 100 mg capsule 200 mg PO QAM 05/09/21 04/21/22 History (CoQ-10) carvedilol 25 mg tablet 25 mg PO BID #180 tabs 05/28/21 04/21/22 Rx evolocumab 140 mg/mL subcutaneous 140 mg subcut .COMPLEX 05/28/21 04/21/22 History pen injector (Repatha SureClick) hydralazine 25 mg tablet 25 mg PO BID 05/28/21 04/21/22 History insulin degludec 100 unit/mL (3 180 unit subcut QAM 07/12/21 04/21/22 History mL) subcutaneous pen (Tresiba FlexTouch U-100 insulin) glucosam 750 mg-chondroi 100 1 tab PO QAM 09/10/21 04/21/22 History mg-hyalur 1.65 mg-CF borate 108 mg tablet (Move Free Zappli) omeprazole magnesium 20 mg 20 mg PO QAM 01/10/22 04/21/22 History capsule,delayed release (Acid Logistics Operations Director (omeprazole)) bumetanide 1 mg tablet 1 mg PO TID 01/14/22 04/21/22 History cholecalciferol (vitamin D3) 125 125 mcg PO DAILY 04/21/22 04/21/22 History mcg (5,000 unit) tablet (Vitamin D3) spironolactone 25 mg tablet 25 mg PO DAILY 04/21/22 04/21/22 History Patient History Medical History Arreola's esophagus Chronic diastolic heart failure EF 59%, Grade 2 diastolic dysfunction, follows with [facility]ology Chronic kidney disease G2/A3, baseline Cr 1.2, follows with [facility] Degenerative disc disease Hepatic steatosis Hyperlipidemia Hypertension LVH (left ventricular hypertrophy) severe CHAPINCITO on CPAP Type 2 diabetes mellitus IDDM Surgical History History of ankle surgery right History of cataract surgery bilateral History of colonoscopy Hx of arthroscopy of left knee Family History Other No pertinent family history Social History Smoking Status: Never smoker Second Hand Exposure: No; Hx Alcohol Use: No Hx Substance Use: No Preferred Language: Tanzanian Communication Ability: Effective Telemetry Registered Nurse Required: No Beliefs That Will Affect Care: None marital status: Current Living Situation: Spouse Other Information That Helps Us Care for You: No Feels Safe at Home: Yes Safety Concerns: Feels Safe At This Time Assistive Devices: CPAP Review of Systems Review of Systems: All systems reviewed & are unremarkable except as noted in HPI & below Physical Exam Constitutional: well developed; no acute distress Eyes: no scleral abnormality and no corneal abnormality ENMT: Mouth: no oral mucosal abnormality and oral mucous membranes not dry Neck: normal visual inspection and trachea midline Respiratory: normal respiratory effort Auscultation: lungs clear to auscultation bilaterally Cardiovascular: Rate/Rhythm: regular rate Heart Sounds: normal S1 and normal S2 Extremities: no edema Musculoskeletal: Extremities: no cyanosis and no clubbing Skin: normal turgor; no lesions Neurologic: Motor/Sensory: no tremor and no asterixis Psychiatric: Orientation: alert and oriented x 3 Results & Data ([facility]) Vital Signs (Past 12 Hours) Vital Signs Temp Pulse Resp BP Pulse Ox O2 Del Method 04/25/22 07:15 36.5 C 53 L 18 124/65 96 Room Air 04/25/22 03:00 36.6 C 56 L 22 129/63 93 BiPAP Laboratory Results Laboratory Results - last 24 hr 04/24/22 04/24/22 04/24/22 16:23 20:02 23:36 Sodium Potassium Chloride Carbon Dioxide Anion Gap BUN Creatinine Est Cr Clr Drug Dosing Est GFR ( Amer) Est GFR (Non-Af Amer) BUN/Creatinine Ratio Glucose POC Glucose 77 112 H 99 Calcium 04/25/22 04/25/22 04/25/22 03:27 06:37 07:10 Sodium 130 L Potassium 4.2 Chloride 94 L Carbon Dioxide 26 Anion Gap 10 BUN 57 H Creatinine 3.21 H D Est Cr Clr Drug Dosing 31.8 Est GFR ( Amer) 22.6 Est GFR (Non-Af Amer) 19.5 BUN/Creatinine Ratio 17.8 Glucose 84 POC Glucose 96 78 Calcium 9.1 04/25/22 11:16 Sodium Potassium Chloride Carbon Dioxide Anion Gap BUN Creatinine Est Cr Clr Drug Dosing Est GFR ( Amer) Est GFR (Non-Af Amer) BUN/Creatinine Ratio Glucose POC Glucose 130 H Calcium PG Care Time/CCT Total # of Minutes Spent Total Time Spent with Patient: Total time spent is greater than 50% in coordination of care (as documented) at patient's floor/unit and/or counseling patient: Coding Level of Care Code 84014 Inpt Consult Level 4 Diagnoses NEMESIO (acute kidney injury) N17.9 Acute on chronic diastolic CHF (congestive heart failure) I50.33 Chronic kidney disease N18.9
--- NOTE | 2022-04-25 12:24 | Pharmacy Report ---
Pharmacy Glycemic Short Note 2 - Date of Service April 25, 2022 - Glycemic Short BSG Results (Last 24 hours): 04/24/22 04/24/22 04/24/22 16:23 20:02 23:36 Glucose POC Glucose 77 112 H 99 04/25/22 04/25/22 04/25/22 03:27 06:37 07:10 Glucose 84 POC Glucose 96 78 04/25/22 11:16 Glucose POC Glucose 130 H OUTPATIENT ANTIDIABETIC REGIMEN: Per Outpatient [facility] Documentation: * Tresiba 180 units daily in the morning * Metformin ER 2000 mg daily * Novolog 40 units with all meals + CF 1:20 over 150 + 20 units at bedtime (if high) * additional 5-10 units with meals if high carb * A1c 7.2% 04/22/22 ASSESSMENT: 04/25: * Patient received a total of 70 units of insulin yesterday, 50 of which were basal * Fasting 78 mg/dL this morning, further 20-30% reduction to lantus scale. ?Potentially component of worsening renal function and extended duration of action? * Carb ratio also loosened with breakfast, lunch BSG within goal range. Will continue for now. 04/24: * Patient received a total of 86 units of insulin yesterday, 70 of which were basal. * BSGs were 70-724-88-17-04-14-10s mg/dL over the past 24 hours. Fasting BSG continues to be surprisingly on the lower end given home dose requirements, will reduce basal dosing scale further today. * Patient continues to tolerate a diet. 04/23: * Patient received a total of 109 units of insulin, 80 of which were basal. * BSGs remain an the lower end 44-365-656-98-77-125 mg/dL over the past 24 hours. Will reduce lantus scale to reduce total daily dose today. Will continue to monitor closely given large reduction in inpatient insulin needs the far * Patient is tolerating a diet. 04/22 * Patient admitted with shortness of breath ongoing past month with acute worsening in the last week, not improved with increased in diuretic. * Outpatient A1c suggests adequate outpatient control, slightly above goal of <7.0% * Patient with high insulin needs outpatient, was hypoglycemic overnight, AM lantus dose significantly reduced, will set scale for PM to provide up to 100 total for the day * Novolog parameters set with home correction factor of 20 and carb ratio between a weight based stress of 2 and 3. Will adjust as needed with further BSGs PLAN FOR INPATIENT GLYCEMIC CONTROL: * Hold outpatient oral diabetes medications * Basal insulin * Lantus Scale BID (15,20 units based on BSG) * Bolus insulin * NovoLog per scale ACHS or Q6hrs while NPO * Goal Range: Low 120 mg/dL - High 160 mg/dL * Correction Factor: 20 mg/dL/unit * Nutritional / Prandial insulin per carb ratio of 1 unit per 6 grams CHO consumed
[2022-04-25 14:29] LABS: Appearance Urine Clear (Clear); Bacteria Urine Automated Negative (Negative); Bilirubin Urine Negative (Negative); Blood Urine Negative (Negative); Cast Urine Automated 0 /lpf (0-5); Color Urine Yellow; Glucose Urine UA Negative (Negative); Ketones Urine Negative (Negative); Leukocyte Esterase Urine Negative (Negative); Nitrite Urine Negative (Negative); Protein Urine Trace (Negative); RBC Urine Automated 0-4 /hpf (0-4); Specific Gravity Urine 1.008 (1.000-1.030); Urobilinogen Urine Negative (Negative); WBC Urine Automated 0 /hpf (0-5)
--- NOTE | 2022-04-25 15:19 | Ultrasound Report ---
US renal/blad retro comp CLINICAL HISTORY: arlen TECHNIQUE: Multiple sonographic real-time images of the kidneys and bladder were obtained. COMPARISON: None available at the time of this dictation. FINDINGS: The right kidney measures 12.6 cm in length, and the left kidney measures 12.8 cm in length. The right kidney is normal in size, contour, cortical thickness, and echogenicity. No hydronephrosis is identified. No renal lesion is identified. No perinephric fluid collection is seen. The left kidney is normal in size, contour, cortical thickness and echogenicity. No hydronephrosis i s identified. No renal lesion is identified. No perinephric fluid collection is seen. The bladder is partially distended. No large intraluminal mass is seen. Incidental note is made of cholelithiasis. IMPRESSION: Unremarkable renal ultrasound. ACT 112: Negative or not required by law. Electronically signed by: Filipe Ann M.D. 04/25/2022 3:18 PM
--- NOTE | 2022-04-25 15:38 | Hospitalist Progress Note ---
Date of Service April 25, 2022 Assessment & Plan (1) Acute on chronic diastolic CHF (congestive heart failure): Plan Acute on chronic diastolic CHF (congestive heart failure): - presented with progressive shortness of breath, mild LE edema - Admitting CXR with pulm vascular congestion and small left sided pleural effusion -Cardiology on board, managing diuresis -Diuretics on hold -DC spironolactone due to patient's concern of gynecomastia. Patient had not started eplerenone due to high cost. - Strict I/O - telemetry monitoring - continue home medications NEMESIO over chronic kidney disease: Mild hyponatremia - Cr baseline around 1.5, renal ultrasound unremarkable. -Creatinine uptrending 3.21 today, diuresis on hold, nephrology consulted - avoid nephrotoxic medications, will hold Bumex, lisinopril and Aldactone. Aldactone to be discontinued upon discharge. -Nephrology evaluated, appreciate recommendation. Other chronic medical conditions: T2DM, hepatic asteatosis, CHAPINCITO on CPAP, HTN -->> continue with/resume home meds as and when appropriate. DVT prophylaxis: Heparin subcu declined, SCDs and ambulation. CODE STATUS: Full code Dispo: Telemetry Admission and Anticipated Discharge Date Admission Date: April 22, 2022 Subjective Patient seen and examined at bedside as a follow-up of acute on chronic diastolic CHF. Patient was sitting up in chair, on room air, NAD, denies any new acute event overnight, reports eating okay and moving bowels okay, reports lingering cough and improved shortness of breath, patient reports moving around in the room every so frequently, patient advised to continue to move around in the room every few hours and SCDs was put for DVT prophylaxis as patient cannot tolerate heparin injection due to pain/cramps, patient denies any fever/chills/sore throat/belly pain/chest pain/other review of symptoms. Physical Exam Physical Exam: GENERAL: Alert and oriented x3. NAD, on RA. Obese class II HEENT: No pallor, no icterus. Pupils equal, round and reactive to light. Oral mucosa moist. NECK: No JVD, no neck masses. HEART: S1 and S2 heard. Regular rate and rhythm. No murmur, no gallop. RESPIRATORY SYSTEM: Normal AP diameter. No accessory muscle use. No wheezing, no crackles. ABDOMEN: Soft, bowel sounds present, nontender, no distention. CENTRAL NERVOUS SYSTEM: No facial droop. Speech is clear. Obeys simple commands. Moves extremities. EXTREMITIES: No edema, no erythema seen. Results & Data Results & Data ([facility]) Vital Signs (Past 12 Hours) Vital Signs Temp Pulse Resp BP Pulse Ox O2 Del Method 04/25/22 07:15 36.5 C 53 L 18 124/65 96 Room Air
[2022-04-26 07:49] LABS: BUN Creatinine Ratio 21.8 (10-20); Calcium 9.1 mg/dl (8.5-10.1); Creatinine Clr Calc Pharmacy 41.8 ml/min; Est GFR (African American) 29.5 ml/min; Est GFR (Non-African American) 25.5 ml/min; Magnesium 2.8 mg/dl (1.7-2.4); Phosphorus 4.7 mg/dl (2.5-4.9); Potassium 4.4 mmol/L (3.5-5.1)
[2022-04-26] MEDS: ASPIRIN 81 MG ECTAB PO SCH (08:58)
[2022-04-26] MEDS: hydrALAZINE HCL 25 MG TAB PO SCH ×2 (08:59→20:26)
[2022-04-26] MEDS: CHOLECALCIFEROL 5,000 UNITS 125 MCG TAB PO SCH (08:59)
[2022-04-26] MEDS: VITAMIN B COMPLEX TAB PO SCH (09:00)
[2022-04-26] MEDS: PANTOprazole 40 MG TAB PO SCH (09:00)
[2022-04-26] MEDS: carvediloL 25 MG TAB PO SCH ×2 (09:00→20:30)
[2022-04-26] MEDS: INSULIN ASPART PER UNIT SC SCH ×4 (09:10→20:22)
[2022-04-26] MEDS: LANTUS PER UNIT CHARGE SQ SCH ×2 (09:11→20:28)
--- NOTE | 2022-04-26 10:52 | Nephrology Progress Note ---
Date of Service April 26, 2022 Assessment & Plan (1) NEMESIO (acute kidney injury): Plan: Polyuric. Recovery phase of NEMESIO noted. Creatinine improving. Clinical presentation suggests intravascular depletion associated decreased EAV. Dumping solute. BP acceptable. Medications are appropriate for kidney function. Lisinopril has appropriately been held. I agree with discontinuation of spironolactone. I would continue to hold diuretics (Bumex). I discussed the plan of care with Dr. Holt this AM. I expect that we will continue to see renal recovery. During this time, Tony is advised to avoid excessive fluid or sodium intake. To monitor progression, a repeat metabolic profile has been ordered for this afternoon. However, I do think it would be reasonable to consider discharge with close outpatient follow up. Tony suggested that he would have blood work on Thursday or Thursday at the [facility] lab in [place]. (2) Acute on chronic diastolic CHF (congestive heart failure): Plan: Volume status acceptable. Notable symptomatic improvement. Diuretics held. (3) Chronic kidney disease: Plan: CKD III (baseline creatinine 1.5-1.9 mg/dL). Dipstick with trace protein. Urine acellular. CKD attributed to DKD. Tony is followed by Dr. Mccormick. Close outpatient follow up will be required after discharge. Admission and Anticipated Discharge Date Admission Date: April 22, 2022 Subjective No acute events overnight. Tony feels well this AM. He has been out of bed and ambulating in the hallway. Denies any dyspnea at this time. No lightheadedness or dizziness. No syncope or presyncope. Appetite is good. Polyuric. No fluid retention or edema. Tony states that he is drinking ~3 L per day of fluids including diet coke and water. Input not completely documented. Review of Systems Review of Systems: All systems reviewed & are unremarkable except as noted in HPI & below Physical Exam Constitutional: well developed and + morbidly obese; no acute distress Eyes: + anicteric sclerae; no corneal abnormality ENMT: Mouth: no oral mucosal abnormality and oral mucous membranes not dry Neck: normal visual inspection and trachea midline Respiratory: normal respiratory effort Auscultation: lungs clear to auscultation bilaterally and + diminished lung sounds Cardiovascular: Rate/Rhythm: regular rate Heart Sounds: normal S1 and normal S2 Extremities: no edema Musculoskeletal: Extremities: no cyanosis and no clubbing Skin: normal turgor; no lesions Neurologic: Motor/Sensory: no tremor and no asterixis Psychiatric: Orientation: alert and oriented x 3 Results & Data ([facility]) Vital Signs (Past 12 Hours) Vital Signs Temp Pulse Pulse Resp BP Pulse Ox Pulse Ox 04/26/22 09:00 61 04/26/22 07:07 36.5 C 52 L 18 126/66 93 04/26/22 04:00 96 04/26/22 03:10 36.8 C 58 L 16 146/71 H 96 04/25/22 23:28 36.5 C 54 L 18 133/72 95 04/25/22 23:07 55 L O2 Del Method O2 Del Method 04/26/22 09:00 04/26/22 07:07 Room Air 04/26/22 04:00 Nasal CPAP 04/26/22 03:10 Nasal CPAP 04/25/22 23:28 04/25/22 23:07 Laboratory Results Laboratory Results - last 24 hr 04/25/22 04/25/22 04/25/22 11:16 12:35 12:35 Sodium Potassium Chloride Carbon Dioxide Anion Gap BUN Creatinine Est Cr Clr Drug Dosing Est GFR ( Amer) Est GFR (Non-Af Amer) BUN/Creatinine Ratio Glucose POC Glucose 130 H Calcium Phosphorus Magnesium Urine Color Yellow Urine Appearance Clear Urine pH 6.0 Ur Specific Cutler 1.008 Urine Protein Trace H Urine Glucose (UA) Negative Urine Ketones Negative Urine Blood Negative Urine Nitrite Negative Urine Bilirubin Negative Urine Urobilinogen Negative Ur Leukocyte Esterase Negative Urine WBC (Auto) 0 Urine RBC (Auto) 0-4 U Hyaline Cast (Auto) 0 U Epithel Cells (Auto) 5-10 H Urine Bacteria (Auto) Negative Ur Random Sodium 18 04/25/22 04/25/22 04/26/22 16:11 20:45 06:12 Sodium 128 L Potassium 4.4 Chloride 94 L Carbon Dioxide 24 Anion Gap 10 BUN 56 H Creatinine 2.57 H D Est Cr Clr Drug Dosing 41.8 Est GFR ( Amer) 29.5 Est GFR (Non-Af Amer) 25.5 BUN/Creatinine Ratio 21.8 H Glucose 111 H POC Glucose 102 H 136 H Calcium 9.1 Phosphorus 4.7 D Magnesium 2.8 H Urine Color Urine Appearance Urine pH Ur Specific Cutler Urine Protein Urine Glucose (UA) Urine Ketones Urine Blood Urine Nitrite Urine Bilirubin Urine Urobilinogen Ur Leukocyte Esterase Urine WBC (Auto) Urine RBC (Auto) U Hyaline Cast (Auto) U Epithel Cells (Auto) Urine Bacteria (Auto) Ur Random Sodium 04/26/22 07:06 Sodium Potassium Chloride Carbon Dioxide Anion Gap BUN Creatinine Est Cr Clr Drug Dosing Est GFR ( Amer) Est GFR (Non-Af Amer) BUN/Creatinine Ratio Glucose POC Glucose 111 H Calcium Phosphorus Magnesium Urine Color Urine Appearance Urine pH Ur Specific Cutler Urine Protein Urine Glucose (UA) Urine Ketones Urine Blood Urine Nitrite Urine Bilirubin Urine Urobilinogen Ur Leukocyte Esterase Urine WBC (Auto) Urine RBC (Auto) U Hyaline Cast (Auto) U Epithel Cells (Auto) Urine Bacteria (Auto) Ur Random Sodium PG Care Time/CCT Total # of Minutes Spent Total Time Spent with Patient: Total time spent is greater than 50% in coordination of care (as documented) at patient's floor/unit and/or counseling patient: Coding Level of Care Code 18624 Subseq Hosp Care Lvl 3 Diagnoses NEMESIO (acute kidney injury) N17.9 Acute on chronic diastolic CHF (congestive heart failure) I50.33 Chronic kidney disease N18.9
--- NOTE | 2022-04-26 12:25 | Cardiology Progress Note ---
Date of Service April 26, 2022 Assessment & Plan (1) Acute on chronic diastolic CHF (congestive heart failure): (2) Hypertension: (3) CHAPINCITO on CPAP: Plan 62-year-old male with acute on chronic heart failure with preserved ejection fraction. Exacerbation likely multifactorial due to dietary indiscretions and immobilization in the setting of chronic renal insufficiency. Worsening renal function noted with aggressive diuretic therapy. Lab studies suggest intravascular volume depletion. Bumex on hold overnight with improvement of serum creatinine. Recommend holding diuretic therapy today. Repeat basic metabolic panel in 48 to 72 hours in the outpatient setting. Consider restarting diuretic therapy pending review. Continue to hold lisinopril. Remain off Aldactone at this time. Outpatient cardiology follow-up 1 week at [facility]. Admission and Anticipated Discharge Date Admission Date: April 22, 2022 Subjective Patient seen examined the bedside. Feeling better from a cardiovascular perspective. Serum creatinine trending downward. Diuretics on hold. Edema has resolved. No orthopnea or PND. Telemetry reveals sinus bradycardia in the 50s. Offers no concerns/complaints. Review of Systems Review of Systems: All systems reviewed & are unremarkable except as noted in Subjective Physical Exam Constitutional: well nourished; no acute distress Respiratory: normal respiratory effort; no respiratory distress, no labored breathing and no retractions Auscultation: no crackles, no rales, no rhonchi and no wheezes Cardiovascular: Rate/Rhythm: regular rate and regular rhythm Heart Sounds: normal S1 and normal S2; no murmur Vessels: radial pulses present; no JVD and no carotid bruit Extremities: no edema Gastrointestinal (Abdomen): Inspection/Auscultation: abdomen normal to inspection and normal bowel sounds; abdomen not distended Percussion/Palpation: abdomen soft; abdomen nontender, no guarding and abdomen not rigid Neurologic: CN's II-XI intact bilaterally and moves all extremities; no focal motor deficits Motor/Sensory: no tremor Psychiatric: A+Ox3, euthymic affect Results & Data ([facility]) Vital Signs (Past 12 Hours) Vital Signs Temp Pulse Pulse Resp BP Pulse Ox Pulse Ox 04/26/22 11:32 36.5 C 57 L 18 138/68 95 04/26/22 08:00 79 04/26/22 09:00 61 04/26/22 07:07 36.5 C 52 L 18 126/66 93 04/26/22 04:00 96 04/26/22 03:10 36.8 C 58 L 16 146/71 H 96 O2 Del Method O2 Del Method 04/26/22 11:32 Room Air 04/26/22 08:00 04/26/22 09:00 04/26/22 07:07 Room Air 04/26/22 04:00 Nasal CPAP 04/26/22 03:10 Nasal CPAP
[2022-04-26 14:47] LABS: BUN Creatinine Ratio 22.6 (10-20); Calcium 9.2 mg/dl (8.5-10.1); Creatinine Clr Calc Pharmacy 44.3 ml/min; Est GFR (African American) 31.6 ml/min; Est GFR (Non-African American) 27.3 ml/min; Potassium 5.1 mmol/L (3.5-5.1)
--- NOTE | 2022-04-26 15:14 | Hospitalist Progress Note ---
Date of Service April 26, 2022 Assessment & Plan (1) Acute on chronic diastolic CHF (congestive heart failure): Plan Acute on chronic diastolic CHF (congestive heart failure): - presented with progressive shortness of breath, mild LE edema - Admitting CXR with pulm vascular congestion and small left sided pleural effusion -Cardiology on board, managing diuresis -Diuretics on hold -DC spironolactone due to patient's concern of gynecomastia. Patient had not started eplerenone due to high cost. - Strict I/O - telemetry monitoring - continue home medications NEMESIO over chronic kidney disease: Mild hyponatremia - Cr baseline around 1.5, renal ultrasound unremarkable. -Creatinine remains elevated but better, 2.57 today, diuresis on hold, nephrology on board - avoid nephrotoxic medications, will hold Bumex, lisinopril and Aldactone. Aldactone to be discontinued upon discharge. -Sodium level trending down, discussed with nephrology, low-sodium diet/fluid restriction/BMP in AM. Patient made aware. Other chronic medical conditions: T2DM, hepatic asteatosis, CHAPINCITO on CPAP, HTN -->> continue with/resume home meds as and when appropriate. DVT prophylaxis: Heparin subcu declined, SCDs and ambulation. CODE STATUS: Full code Dispo: Telemetry Admission and Anticipated Discharge Date Admission Date: April 22, 2022 Subjective Patient seen and examined at bedside as a follow-up of acute on chronic diastolic CHF. Patient was sitting up in chair, on room air, NAD, denies any new acute event overnight, reports eating okay and moving bowels okay, reports lingering cough and improved shortness of breath, patient reports moving around in the room every so frequently, patient advised to continue to move around in the room every few hours and SCDs was put for DVT prophylaxis as patient cannot tolerate heparin injection due to pain/cramps, patient denies any fever/chills/sore throat/belly pain/chest pain/other review of symptoms. Discussed with nephrology in the morning with a plan to discharge him with close follow-up of his renal function and close follow-up with nephrology as an outpatient. Pending BMP in afternoon. BMP in the afternoon reviewed with decreasing sodium level trend, discussed with nephrology again and made patient aware, plan to hold the patient discharge, fluid restriction, low-sodium diet, BMP in a.m., further discussion with nephrology tomorrow. Physical Exam Physical Exam: GENERAL: Alert and oriented x3. NAD, on RA. Obese class II HEENT: No pallor, no icterus. Pupils equal, round and reactive to light. Oral mucosa moist. NECK: No JVD, no neck masses. HEART: S1 and S2 heard. Regular rate and rhythm. No murmur, no gallop. RESPIRATORY SYSTEM: Normal AP diameter. No accessory muscle use. No wheezing, no crackles. ABDOMEN: Soft, bowel sounds present, nontender, no distention. CENTRAL NERVOUS SYSTEM: No facial droop. Speech is clear. Obeys simple commands. Moves extremities. EXTREMITIES: No edema, no erythema seen. Results & Data Results & Data ([facility]) Vital Signs (Past 12 Hours) Vital Signs Temp Pulse Pulse Resp BP Pulse Ox Pulse Ox 04/26/22 11:32 36.5 C 57 L 18 138/68 95 04/26/22 08:00 79 04/26/22 09:00 61 04/26/22 07:07 36.5 C 52 L 18 126/66 93 04/26/22 04:00 96 O2 Del Method O2 Del Method 04/26/22 11:32 Room Air 04/26/22 08:00 04/26/22 09:00 04/26/22 07:07 Room Air 04/26/22 04:00 Nasal CPAP
[2022-04-27 07:50] LABS: BUN Creatinine Ratio 23.9 (10-20); Calcium 9.5 mg/dl (8.5-10.1); Creatinine Clr Calc Pharmacy 48.4 ml/min; Est GFR (African American) 35.2 ml/min; Est GFR (Non-African American) 30.4 ml/min; Magnesium 2.7 mg/dl (1.7-2.4); Phosphorus 4.3 mg/dl (2.5-4.9); Potassium 4.5 mmol/L (3.5-5.1)
[2022-04-27] MEDS: INSULIN ASPART PER UNIT SC SCH ×2 (08:56→12:14)
[2022-04-27] MEDS: LANTUS PER UNIT CHARGE SQ SCH (08:57)
[2022-04-27] MEDS: CHOLECALCIFEROL 5,000 UNITS 125 MCG TAB PO SCH (09:26)
[2022-04-27] MEDS: carvediloL 25 MG TAB PO SCH (09:26)
[2022-04-27] MEDS: ASPIRIN 81 MG ECTAB PO SCH (09:26)
[2022-04-27] MEDS: VITAMIN B COMPLEX TAB PO SCH (09:27)
[2022-04-27] MEDS: PANTOprazole 40 MG TAB PO SCH (09:27)
[2022-04-27] MEDS: hydrALAZINE HCL 25 MG TAB PO SCH (09:27)
--- NOTE | 2022-04-27 10:16 | Cardiology Progress Note ---
Date of Service April 27, 2022 Assessment & Plan (1) Acute on chronic diastolic CHF (congestive heart failure): (2) Hypertension: (3) CHAPINCITO on CPAP: (4) NEMESIO (acute kidney injury): Plan 62-year-old male with acute on chronic heart failure with preserved ejection fraction. Exacerbation likely multifactorial due to dietary indiscretions and immobilization in the setting of chronic renal insufficiency. Worsening renal function noted with aggressive diuretic therapy. Lab studies suggest intravascular volume depletion. Bumex on hold. Serum creatinine trending downward. Recommend continuing to hold diuretic therapy with outpatient repeat lab studies. Consider restarting diuretic therapy pending review. Continue to hold ARIANNA inhibitor. Outpatient cardiology follow-up 1 week at [facility]. Admission and Anticipated Discharge Date Admission Date: April 22, 2022 Subjective Patient seen examined the bedside. Feeling well today. Creatinine trending downward. Fluid balance -2.1 L. Diuretics currently on hold. Aldactone discontinued due to patient concerns of gynecomastia. Had not started eplerenone in the outpatient setting. Telemetry reveals sinus bradycardia in the 50s. Review of Systems Review of Systems: All systems reviewed & are unremarkable except as noted in Subjective Physical Exam Constitutional: well nourished; no acute distress Respiratory: normal respiratory effort; no respiratory distress, no labored breathing and no retractions Auscultation: no crackles, no rales, no rhonchi and no wheezes Cardiovascular: Rate/Rhythm: regular rate and regular rhythm Heart Sounds: normal S1 and normal S2; no murmur Vessels: radial pulses present; no JVD and no carotid bruit Extremities: no edema Gastrointestinal (Abdomen): Inspection/Auscultation: abdomen normal to inspection and normal bowel sounds; abdomen not distended Percussion/Palpation: abdomen soft; abdomen nontender, no guarding and abdomen not rigid Neurologic: CN's II-XI intact bilaterally and moves all extremities; no focal motor deficits Motor/Sensory: no tremor Psychiatric: A+Ox3, euthymic affect Results & Data ([facility]) Vital Signs (Past 12 Hours) Vital Signs Temp Pulse Pulse Pulse Resp BP Pulse Ox 04/27/22 09:25 61 04/27/22 07:43 36.4 C L 51 L 16 144/80 H 95 04/27/22 07:26 53 L 04/27/22 04:00 04/27/22 03:32 36.5 C 51 L 18 157/83 H 97 04/26/22 23:36 63 04/26/22 23:25 36.4 C L 56 L 18 135/64 96 Pulse Ox O2 Del Method O2 Del Method 04/27/22 09:25 04/27/22 07:43 Room Air 04/27/22 07:26 04/27/22 04:00 97 Room Air 04/27/22 03:32 04/26/22 23:36 04/26/22 23:25
--- NOTE | 2022-04-27 10:50 | Nephrology Progress Note ---
Date of Service April 27, 2022 Assessment & Plan (1) NEMESIO (acute kidney injury): Plan: Creatinine improving. Clinical presentation suggests intravascular depletion associated decreased EAV from diuretics. Volume status and BP acceptable. Medications are appropriate for kidney function. Lisinopril has appropriately been held. I agree with discontinuation of spironolactone. Continue to hold diuretics (Bumex) for now. I discussed the plan of care with Dr. Holt this AM. I expect that we will continue to see renal recovery. During this time, Tony is advised to avoid excessive fluid or sodium intake (1.5 L daily fluid restriction and 2 gram Na). A repeat metabolic profile will be obtained on Thursday as an outpatient. I will arrange follow up in the clinic with Dr. Mccormick within the week. Close outpatient follow up will be required. Tony expressed understanding. (2) Acute on chronic diastolic CHF (congestive heart failure): Plan: Volume status acceptable. Notable symptomatic improvement. Diuretics held. (3) Chronic kidney disease: Plan: CKD III (baseline creatinine 1.5-1.9 mg/dL). Dipstick with trace protein. Urine acellular. CKD attributed to DKD. Tony is followed by Dr. Mccormick. Close outpatient follow up will be required after discharge. Admission and Anticipated Discharge Date Admission Date: April 22, 2022 Subjective No acute events overnight. Tony feels well this AM. Denies dyspnea. No lightheadedness. Tolerating fluid restriction. Tony was seen and evaluated with Dr. Holt this AM. I reviewed the plan of care with Dr. Holt. Review of Systems Review of Systems: All systems reviewed & are unremarkable except as noted in HPI & below Physical Exam Constitutional: well developed and + morbidly obese; no acute distress Eyes: + anicteric sclerae; no scleral abnormality and no corneal abnormality ENMT: Mouth: no oral mucosal abnormality and oral mucous membranes not dry Neck: normal visual inspection and trachea midline Respiratory: normal respiratory effort Auscultation: lungs clear to auscultation bilaterally and + diminished lung sounds Cardiovascular: Rate/Rhythm: regular rate Heart Sounds: normal S1 and normal S2 Extremities: no edema Musculoskeletal: Extremities: no cyanosis and no clubbing Skin: normal turgor; no lesions Neurologic: Motor/Sensory: no tremor and no asterixis Psychiatric: Orientation: alert and oriented x 3 Results & Data ([facility]) Vital Signs (Past 12 Hours) Vital Signs Temp Pulse Pulse Pulse Resp BP Pulse Ox 04/27/22 09:25 61 04/27/22 07:43 36.4 C L 51 L 16 144/80 H 95 04/27/22 07:26 53 L 04/27/22 04:00 04/27/22 03:32 36.5 C 51 L 18 157/83 H 97 04/26/22 23:36 63 04/26/22 23:25 36.4 C L 56 L 18 135/64 96 Pulse Ox O2 Del Method O2 Del Method 04/27/22 09:25 04/27/22 07:43 Room Air 04/27/22 07:26 04/27/22 04:00 97 Room Air 04/27/22 03:32 04/26/22 23:36 04/26/22 23:25 Laboratory Results Laboratory Results - last 24 hr 04/26/22 04/26/22 04/26/22 11:34 13:50 16:24 Sodium 125 L Potassium 5.1 Chloride 93 L Carbon Dioxide 23 Anion Gap 9 BUN 55 H Creatinine 2.43 H Est Cr Clr Drug Dosing 44.3 Est GFR ( Amer) 31.6 Est GFR (Non-Af Amer) 27.3 BUN/Creatinine Ratio 22.6 H Glucose 130 H POC Glucose 125 H 111 H Calcium 9.2 Phosphorus Magnesium 04/26/22 04/27/22 04/27/22 20:04 06:57 07:32 Sodium 129 L Potassium 4.5 Chloride 97 L Carbon Dioxide 23 Anion Gap 9 BUN 53 H Creatinine 2.22 H Est Cr Clr Drug Dosing 48.4 Est GFR ( Amer) 35.2 Est GFR (Non-Af Amer) 30.4 BUN/Creatinine Ratio 23.9 H Glucose 141 H POC Glucose 147 H 133 H Calcium 9.5 Phosphorus 4.3 Magnesium 2.7 H PG Care Time/CCT Total # of Minutes Spent Total Time Spent with Patient: Total time spent is greater than 50% in coordination of care (as documented) at patient's floor/unit and/or counseling patient: Coding Level of Care Code 47902 Subseq Hosp Care Lvl 3 Diagnoses NEMESIO (acute kidney injury) N17.9 Acute on chronic diastolic CHF (congestive heart failure) I50.33 Chronic kidney disease N18.9
--- NOTE | 2022-04-27 12:54 | Discharge Summary ---
Date of Service April 27, 2022 Admission HPI Per Admitting Provider DATE OF ADMISSION: 04/22/2022. CHIEF COMPLAINT: Shortness of breath. HISTORY OF PRESENT ILLNESS: A 62-year-old male with past medical history significant for type 2 diabetes, diabetic polyneuropathy, diabetic retinopathy, obstructive sleep apnea, on CPAP, diastolic CHF, chronic kidney disease, stage IIIB, morbid obesity, Arreola's esophagus with high-grade dysplasia, hepatic steatosis, degenerative disk disease, history of colonoscopy with polypectomy, history of tobacco abuse, history of elevated LFTs., who presents with shortness of breath going on for 1 month, got progressively worse in the last 1 week, saw PCP recently and his Bumex was increased from 2 mg to 3 mg, but is not improving. Cardiology advised to come to the ER . The patient received one dose of IV Bumex 1 mg in the ER so far. The patient is not very compliant with his salt, trying to cut it down. Denies any chest pain. Walking short distance making him short of breath, using CPAP at nighttime. Has occasional cough, has some runny nose and sore throat since the last 1 week. No headache, no blurred visions, no earache, no fevers. Appetite is okay. No difficulty swallowing. No nausea, no abdominal pain. Normal bowel and bladder movements. Currently resting comfortably and hemodynamically stable, saturating okay on room air. ALLERGIES: SULFA ANTIBIOTICS. PAST MEDICAL HISTORY: As mentioned above. PAST SURGICAL HISTORY: Right ankle surgery, colonoscopy, EGD, EGD with endoscopic ultrasound, lumbar and sacral epidural shot, bilateral cataract surgeries, injection of sacroiliac joint, left thigh surgery. MEDICATIONS: The patient is on Tylenol 500 mg p.o. q. 6 hours p.r.n., aspirin 81 mg p.o. daily, bumetanide 1 mg p.o. t.i.d., Coreg 25 mg p.o. b.i.d., vitamin D 125 mcg p.o. daily, Coenzyme Q10 200 mg p.o. a.m., Repatha as directed, hydralazine 25 mg p.o. b.i.d., insulin aspart sliding scale, insulin degludec 0.8 units subcutaneous a.m., lisinopril 40 mg p.o. p.m., metformin 2000 mg p.o. a.m., omeprazole 20 mg p.o. a.m., spironolactone 25 mg p.o. daily, vitamin B complex 1 tablet p.o. a.m. FAMILY HISTORY: Significant for son has celiac disease; mother has glaucoma. SOCIAL HISTORY: Former smoker, smoked 2 packs a day for 13 years, quit in 1987. No alcohol use. No drug use. REVIEW OF SYSTEMS: As per HPI. Rest of the review of systems is negative. Admission Exam Per Admitting Provider GENERAL: The patient is obese, not in acute distress. VITAL SIGNS: Temperature 37, pulse 58, respiratory rate 22, blood pressure 167/72, oxygen 95% on room air. HEENT: Pupils equal, round and reactive to light. Oral mucosa moist. NECK: No JVD. No neck masses. CARDIOVASCULAR: S1 and S2 heard. Regular rate and rhythm. No murmur, no gallop. RESPIRATORY SYSTEM: Normal AP diameter. No accessory muscle use. Mild bibasilar crackles. No wheezing. ABDOMEN: Soft, bowel sounds present, nontender, no distention. CENTRAL NERVOUS SYSTEM: Cranial nerves II-XII grossly intact, nonfocal. EXTREMITIES: Trace pedal edema present, no erythema seen. Principal Diagnosis Acute on chronic diastolic CHF NEMESIO over CKD disease Mild hyponatremia Discharge Exam GENERAL: Alert and oriented x3. NAD, on RA. Obese class II HEENT: No pallor, no icterus. Pupils equal, round and reactive to light. Oral mucosa moist. NECK: No JVD, no neck masses. HEART: S1 and S2 heard. Regular rate and rhythm. No murmur, no gallop. RESPIRATORY SYSTEM: Normal AP diameter. No accessory muscle use. No wheezing, no crackles. ABDOMEN: Soft, bowel sounds present, nontender, no distention. CENTRAL NERVOUS SYSTEM: No facial droop. Speech is clear. Obeys simple commands. Moves extremities. EXTREMITIES: No edema, no erythema seen. Discharge Data Allergies Allergy/AdvReac Type Severity Reaction Status Date / Time Sulfa (Sulfonamide AdvReac Intermediate Hives Verified 04/21/22 22:33 Antibiotics) Consultations 04/21/22 21:47 ED Decision to Admit Stat 04/22/22 08:00 Consult Cardiology Routine 04/25/22 08:28 Consult Nephrology Routine Ordered Studies 04/22/22 08:37 US venous duplex leg [US venous doppler LE BI] Routine 04/25/22 10:37 US renal/blad retro comp Routine Hospital Course (1) Acute on chronic diastolic CHF (congestive heart failure): Plan 62-year-old man was managed for the following: Acute on chronic diastolic CHF (congestive heart failure): - presented with progressive shortness of breath, mild LE edema - Admitting CXR with pulm vascular congestion and small left sided pleural effusion -Cardiology on board, managing diuresis. Lisinopril and Bumex on hold upon discharge. Spironolactone discontinued. Patient to get labs BMP in 3 to 5 days upon discharge, can coordinate with either PCP office or nephrology office. Patient to follow-up with PCP in a week time follow-up with nephrology in a week time follow-up with cardiology in a week time. Patient to maintain heart healthy diet, sodium restriction of 2 g/day, fluid restriction of 1.5 L/day, increase protein content in diet. NEMESIO over chronic kidney disease: Mild hyponatremia - Cr baseline around 1.5, renal ultrasound unremarkable. -Creatinine slowly getting better but not yet to the baseline, sodium levels slowly getting better. Patient to maintain diet as mentioned above. And maintain follow-up as mentioned above. -Discussed with nephrology today and good to go from the point of view as well with close follow-up with nephrology. Patient aware of that. Other chronic medical conditions:T2DM, hepatic asteatosis, CHAPINCITO on CPAP, HTN -->> continue with/resume home meds as and when appropriate. CODE STATUS: Full code Dispo:Telemetry Patient being discharged home with following instruction at the point of discharge: Follow-up with your primary care physician within a week time and you will likely need blood test in 3 to 5 days [CBC/CMP/magnesium/phosphorus]. Follow-up with your kidney doctor within a week time. Follow-up with your cardiology doctor at [facility] within a week time. Spironolactone has been discontinued. Continue to hold Bumex and lisinopril upon discharge until further evaluation by your PCP or nephrology or cardiology. Maintain heart healthy diet, 2 g sodium per day, 1.5 L of fluid intake per day. Any protein shakes/protein drinks would not count towards fluid restriction. Take your medications as prescribed. Home Health Attestation I certify that this patient is under my care and that I, or a physicians server assistant working with me, had a face to-face encounter that meets the home health [id number] encounter requirements with this patient. The encounter with the patient was in whole, or in part, for the following medical condition, which is the primary reason for home health care (list medical condition): I certify that, based on my findings, the following services are medically necessary home health services: My clinical findings support the need for the above services because: Further, I certify that my clinical findings support that this patient is homeb ound (i.e. absences from home require considerable and taxing effort and are for medical reasons or church services or infrequently or of short duration when for other reasons) because: Certification for Home Health Services: Based on the above findings, I certify that this patient is confined to the home and needs intermittent chcf care, physical therapy and/or speech therapy or continues to need occupational therapy. The patient is under my care, and I have initiated the establishment of the plan of care. This patient will be followed by a physician who will periodically review the plan of care. Total Time Total Time Spent Total Time Spent (In Minutes): 45 Discharge Plan Discharge Items Patient Disposition: Home - Self-Care Reason For Visit: SOB Discharge Diagnosis: Acute on chronic diastolic CHF NEMESIO over CKD disease Mild hyponatremia Condition on Discharge: Fair Activity: Resume your previous activity Non-emergency contact: Primary Care Provider Call non-emergency contact if: you have any medication questions, your symptoms worsen and your temperature is above 101 Follow-up/Referrals: Bárbara Rios DO [Primary Care Provider] - (Date & Time 04/30/2022 8:00 AM Provider Naomi Hedrick PA-C Department Family Medicine [facility] ) Diet: Heart Healthy and Low Sodium (2gm) Fluids: 1500ml (6 cups) Addtl Attending Provider Instructions: Follow-up with your primary care physician within a week time and you will likely need blood test in 3 to 5 days [CBC/CMP/magnesium/phosphorus]. Follow-up with your kidney doctor within a week time. Follow-up with your cardiology doctor at [facility] within a week time. Spironolactone has been discontinued. Continue to hold Bumex and lisinopril upon discharge until further evaluation by your PCP or nephrology or cardiology. Maintain heart healthy diet, 2 g sodium per day, 1.5 L of fluid intake per day. Any protein shakes/protein drinks would not count towards fluid restriction. Take your medications as prescribed. Pending Studies at Discharge: No Stand-Alone Forms: My [facility] [employer], Smoking Cessation Medications and DC Order Prescriptions: Continued acetaminophen [Tylenol Extra Strength] 500 mg tablet 500 mg PO Q6H PRN (Reason: Pain) omeprazole magnesium [[employer] (omeprazole)] 20 mg capsule,delayed release(DR/EC) 20 mg PO QAM hydralazine 25 mg tablet 25 mg PO BID Rx Instructions: PER PT "ONLY TAKE BID, ORDERED TID". Repatha SureClick 140 mg/mL pen injector 140 mg subcut .COMPLEX Rx Instructions: 140 mg subcut q other wk; TAKES ON EVERY OTHER WEDNESDAYS. carvedilol 25 mg tablet 25 mg PO BID Qty: 180 3RF Rx Instructions: must administer with a meal/food [employer] 750 mg-100 mg- 1.65 mg-108 mg tablet 1 tab PO QAM aspirin [John Low Dose Aspirin] 81 mg Tablet,Delayed Release (Dr/Ec) 81 mg PO QAM clotrimazole-betamethasone 1-0.05 % cream 1 applic TOPICAL QAM PRN (Reason: AFFECTED AREAS) vitamin B complex Tablet 1 tab PO QAM metformin 500 mg tablet extended release 24 hr 2,000 mg PO QAM insulin aspart U-100 [Novolog Flexpen U-100 Insulin] 100 unit/mL (3 mL) Insulin Pen 0 sliding scale dose SUBCUT TID coenzyme Q10 [CoQ-10] 100 mg capsule 200 mg PO QAM Tresiba FlexTouch U-100 100 unit/mL (3 mL) insulin pen 180 unit SUBCUT QAM cholecalciferol (vitamin D3) [Vitamin D3] 125 mcg (5,000 unit) Tablet 125 mcg PO DAILY Discontinued bumetanide 1 mg tablet 1 mg PO TID lisinopril 40 mg tablet 40 mg PO QPM spironolactone 25 mg tablet 25 mg PO DAILY Discharge Orders: Discharge Order (Routine); Ordered 04/27/22 Ordered By: Cayden Holt Admission Data Admit Date/Time: 04/22/22 00:55 Attending Provider: Cayden Holt Admit Provider: Chalo Lindsay Primary Care Provider: Bárbara Rios Other Providers: Chalo Lindsay ; Darian Powell ; Josh Willard ; Gilbert Hunter ; John Sahu ; Roberto Herman ; Robert Gonzalez ; Elizabeth Pineda ; Janeth Campbell ; Evita Brennan ; Osman Tan ; Wagner Lawrence
== END 2022-04-27 13:59 | disposition home or self-care (01) | DRG 291 ==
LOC: ED 18:05 → SUATTDRO 04-22 00:55 → 1E 04-22 00:55 → 2E 04-22 14:10

== ENCOUNTER 2023-10-20 14:55 | Inpatient (IN) ==
--- NOTE | 2023-10-20 15:15 | ED Triage Note ---
Date of Service October 20, 2023 Provider in Triage Author: Chelly Morataya History of Present Illness This patient was briefly evaluated while in triage. An abbreviated physical exam was performed. This patient is a 63-year-old Male who presents to the ED for evaluation of kidney problems. The patient states that his doctor told him to come here. He has a history of heart failure and states "the diuretics fried my kidneys." He hasn't been feeling well and states they did the labs due to that. Physical Exam GENERAL: Non-toxic and in no acute distress. HEENT: Pupils equal. No obvious scleral icterus. HEART: Regular rate and rhythm. LUNGS: Clear to auscultation. No accessory muscle use. NEURO: Alert and oriented. No obvious neurological deficits on quick neuro exam. Initial orders for labs and / or imaging were placed and patient was placed in the waiting area until a bed is available. Please see further documentation for the full ED course.
[2023-10-20 16:24] LABS: Basophils # (auto) 0.14 K/uL (0.00-0.20); Basophils % (auto) 1.9 %; Eosinophils # (auto) 0.26 K/uL (0.00-0.50); Eosinophils % (auto) 3.4 %; Hematocrit (blood only) 36.9 % (42.0-52.0); Hemoglobin 12.5 g/dl (14.0-18.0); Immature Granulocytes # (auto) 0.03 K/uL (0.01-0.20); Immature Granulocytes % (auto) 0.4 %; Lymphocytes # (auto) 2.03 K/uL (1.20-3.40); Lymphocytes % (auto) 26.9 %; Mean Corpuscular Hemoglobin 28.2 pg (25.0-34.0); Mean Corpuscular Hgb Conc 33.9 g/dL (32.0-36.0); Mean Corpuscular Volume 83.3 fL (80.0-100.0); Mean Platelet Volume 10.9 fL (9.4-12.4); Monocytes # (auto) 0.69 K/uL (0.11-0.59); Monocytes % (auto) 9.2 %; Neutrophils # (auto) 4.39 K/uL (1.40-6.50); Neutrophils % (auto) 58.2 %; Platelet Count 146 K/uL (130-400); RDW Coefficient of Variation 13.9 % (11.5-14.5); RDW Standard Deviation 42.8 fL (36.4-46.3); Red Blood Count 4.43 M/uL (4.70-6.10); White Blood Count 7.54 K/ul (4.8-10.8)
[2023-10-20 16:42] LABS: Bilirubin,Total 0.8 mg/dl (0.2-1.0); Creatinine Clr Calc Pharmacy 22.8 ml/min; Est GFR (African American) 15.8 ml/min; Est GFR (Non-African American) 13.7 ml/min; Globulin 3.9 gm/dl (2.5-4.0); Magnesium 2.7 mg/dl (1.7-2.4); Potassium 3.9 mmol/L (3.5-5.1); Total Protein 7.9 gm/dl (6.0-8.3)
[2023-10-20 16:48] LABS: Troponin I High Sensitivity 26.5 pg/ml (0-20)
--- NOTE | 2023-10-20 16:48 | Emergency Department Note ---
Impression & Plan Abdominal pain, Shortness of breath, Acute kidney injury superimposed on chronic kidney disease, Non-ST elevation NH (NSTEMI) ED Provider Note HISTORY OF PRESENT ILLNESS: Patient is a 63-year-old male presenting with shortness of breath, nausea and fatigue. Patient reports he has been feeling generally unwell for the last week. He has a history of CHF and has been taking diuretics. He states that he is not having any chest pain. Denies any fevers at home. Denies any cough or runny nose. He denies any recent sick contact exposures. He is complaining of some lower abdominal pain. States that this has occurred for the last 24 hours. He denies any diarrhea. He denies any recent travel. Denies any history of abdominal surgery. Currently complaining of nausea. ROS: as above PHYSICAL EXAM: Constitutional: Patient appears in no acute distress. HENT: Head: Normocephalic and atraumatic. Eyes: EOMI, PERRL Mouth/Throat: Mucous membranes moist. Neck: Trachea midline. Neck supple. Cardiovascular: RRR, No murmurs, rubs or gallops. Intact distal pulses. Pulmonary/Chest: No respiratory distress. Breath sounds clear and equal bilaterally. No wheezes or rales. Abdominal: Abdomen soft, no tenderness, rebound or guarding. Musculoskeletal: No edema, tenderness or deformity noted. Skin: Warm and dry. No rash, erythema, pallor or cyanosis Psychiatric: Appropriate mood and affect for situation. Neurological: Alert and keenly responsive. CN II-XII grossly intact, moving all extremities equally and fully. MDM: - Vitals signs stable - History obtained via patient. History as above. - Chronic conditions affecting care: LVH; CHF; HLD; CKD; HTN; DM-2 - Differential diagnoses include, but are not limited to: pneumonia; UTI; electrolyte abnormality; viral syndrome; dysrhythmia; cholecystitis; appendicitis - Order placed for continuous cardiac monitoring. At this time, monitor showed rate of 66 bpm with normal sinus rhythm, per my interpretation. - External medical records reviewed. Nephrology visit note dated 06/26/2022 was reviewed. Patient follows in their clinic for CKD. Patient has G2/A3 CKD. Baseline creatinine is 1.2 - EKG interpreted by myself showed normal sinus rhythm. Rate 67 bpm. QT 422. No acute ischemic changes. - Laboratory workup interpreted by myself showed normal WBC; hyponatremia (Na 135); Nemesio on CKD (Cr 4.28 - baseline around 1.2); elevated anion gap (13); hypermagnesemia (Mg 2.7); elevated troponin (26.5) - UA negative for infection - Viral respiratory panel negative - CXR negative for pneumonia, per my interpretation. Radiology noted cardiomegaly with mild pulmonary vascular congestion - Patient given 4 mg IV zofran in ER. - CT abdomen/pelvis wo contrast ordered to assess for possible post-renal obstruction as cause of NEMESIO - Discussion was had with case finishing machine adjuster about patient's case and need for admission - Hospitalist consulted for admission - Patient admitted to [facility] Hospitalist service for further evaluation and management. ASSESSMENT AND PLAN: Diagnosis: abdominal pain; shortness of breath; NEMESIO on CKD; NSTEMI Plan: admit Past Med/Surg History Medical History Arreola's esophagus Chronic diastolic heart failure Chronic kidney disease Degenerative disc disease Hepatic steatosis Hyperlipidemia Hypertension LVH (left ventricular hypertrophy) CHAPINCITO on CPAP Type 2 diabetes mellitus Surgical History History of ankle surgery History of cataract surgery History of colonoscopy Hx of arthroscopy of left knee Family History Other No pertinent family history Social History Smoking Status: Former smoker Second Hand Exposure: No; Do You Dip or Chew Tobacco: No; Hx Alcohol Use: No Hx Substance Use: No Preferred Language: Sinhala Communication Ability: Effective Technical Training Specialist Required: No Beliefs That Will Affect Care: None marital status: Current Living Situation: Spouse Feels Safe at Home: Yes Assistive Devices: CPAP Allergies Allergies Allergy/AdvReac Type Severity Reaction Status Date / Time Sulfa (Sulfonamide AdvReac Intermediate Hives Verified 10/20/23 18:21 Antibiotics) Home Meds Home Medications Medication Instructions Recorded Confirmed aspirin 81 mg tablet,delayed 81 mg PO QAM 12/12/20 10/20/23 release (John Low Dose Aspirin) clotrimazole-betamethasone 1 1 applic topical QAM PRN AFFECTED 12/12/20 10/20/23 %-0.05 % topical cream AREAS insulin aspart U-100 100 unit/mL 0 sliding scale dose subcut TID 12/12/20 10/20/23 (3 mL) subcutaneous pen (Novolog per sliding scale FlexPen U-100 Insulin aspart) vitamin B complex 1 tab PO QAM 12/12/20 10/20/23 acetaminophen 500 mg tablet 500 mg PO Q6H PRN Pain 01/28/21 10/20/23 (Tylenol Extra Strength) evolocumab 140 mg/mL subcutaneous 140 mg subcut .COMPLEX 05/28/21 10/20/23 pen injector (Repatha SureClick) hydralazine 25 mg tablet 25 mg PO TID 05/28/21 10/20/23 insulin degludec 100 unit/mL (3 100 unit subcut BID 07/12/21 10/20/23 mL) subcutaneous pen (Tresiba FlexTouch U-100 insulin) cholecalciferol (vitamin D3) 125 125 mcg PO DAILY 04/21/22 10/20/23 mcg (5,000 unit) tablet (Vitamin D3) omeprazole magnesium 20 mg 20 mg PO BID 05/06/22 10/20/23 capsule,delayed release (Acid Certified Scrum Master (omeprazole)) coQ10 (ubiquinol) 200 mg capsule 200 mg PO DAILY 10/20/23 10/20/23 lisinopril 20 mg tablet 20 mg PO DAILY 10/20/23 10/20/23 torsemide 20 mg tablet 20 mg PO DAILY 10/20/23 10/20/23 Previous Rx's Medication Instructions Recorded carvedilol 25 mg tablet 25 mg PO BID #180 tabs 05/28/21 Results & Data (ED) Vital Signs Vital Signs - 24 hr 10/20/23 15:11 10/20/23 16:04 10/20/23 16:26 Temperature 36.9 C 36.9 C Temperature Source Temporal Artery Scan Oral Pulse Rate 73 66 Pulse Rate [Right Finger] 67 Pulse Rhythm [Right Finger] Regular Pulse Strength [Right Finger] Normal Respiratory Rate 18 20 Respiratory Effort / Characteristics Non-Labored Spontaneous Non-Labored Spontaneous Respiratory Depth Normal Normal Respiratory Pattern Regular Blood Pressure 148/78 H Blood Pressure [Right Arm] 130/60 Blood Pressure Mean 101 Blood Pressure Mean [Right Arm] 83 Blood Pressure Position [Right Arm] Semi-fowlers Pulse Oximetry 94 98 Oxygen Delivery Method Room Air Room Air Sepsis Recent Fever Within 48 Hours No Sepsis New/Unexplained Change in Mental Status No Sepsis Action Taken by Nursing No Action Required 10/20/23 16:43 10/20/23 17:00 Temperature Temperature Source Pulse Rate 64 68 Pulse Rate [Right Finger] Pulse Rhythm [Right Finger] Pulse Strength [Right Finger] Respiratory Rate 20 19 Respiratory Effort / Characteristics Respiratory Depth Respiratory Pattern Blood Pressure Blood Pressure [Right Arm] Blood Pressure Mean Blood Pressure Mean [Right Arm] Blood Pressure Position [Right Arm] Pulse Oximetry Oxygen Delivery Method Sepsis Recent Fever Within 48 Hours Sepsis New/Unexplained Change in Mental Status Sepsis Action Taken by Nursing Laboratory Data 10/20/23 16:00 10/20/23 16:00 Lab Results 10/20/23 10/20/23 Range/Units 16:00 Unknown WBC 7.54 (4.8-10.8) K/ul RBC 4.43 L (4.70-6.10) M/uL Hgb 12.5 L (14.0-18.0) g/dl Hct 36.9 L (42.0-52.0) % MCV 83.3 (80.0-100.0) fL MCH 28.2 (25.0-34.0) pg MCHC 33.9 (32.0-36.0) g/dL RDW Std Deviation 42.8 (36.4-46.3) fL RDW Coeff of Javi 13.9 (11.5-14.5) % Plt Count 146 (130-400) K/uL MPV 10.9 (9.4-12.4) fL Immature Gran % (Auto) 0.4 % Neut % (Auto) 58.2 % Lymph % (Auto) 26.9 % [place] % (Auto) 9.2 % Eos % (Auto) 3.4 % Baso % (Auto) 1.9 % Neut # (Auto) 4.39 (1.40-6.50) K/uL Lymph # (Auto) 2.03 (1.20-3.40) K/uL [place] # (Auto) 0.69 H (0.11-0.59) K/uL Eos # (Auto) 0.26 (0.00-0.50) K/uL Baso # (Auto) 0.14 (0.00-0.20) K/uL Immature Gran # (Auto) 0.03 (0.01-0.20) K/uL Sodium 135 L (136-145) mmol/L Potassium 3.9 (3.5-5.1) mmol/L Chloride 99 (98-107) mmol/L Carbon Dioxide 23 (21-32) mmol/L Anion Gap 13 H (3-11) BUN 90 H (6-23) mg/dl Creatinine 4.28 H (0.6-1.4) mg/dl Est Cr Clr Drug Dosing 22.8 ml/min Est GFR ( Amer) 15.8 ml/min Est GFR (Non-Af Amer) 13.7 ml/min BUN/Creatinine Ratio 21.0 H (10-20) Glucose 206 H (70-99(Fasting)) mg/dl Calcium 9.0 (8.6-10.3) mg/dl Magnesium 2.7 H (1.7-2.4) mg/dl Total Bilirubin 0.8 (0.2-1.0) mg/dl AST 61 H (13-39) U/L ALT 60 H (7-52) U/L Alkaline Phosphatase 71 (34-104) U/L Troponin I High Sens 26.5 H (0-20) pg/ml Total Protein 7.9 (6.0-8.3) gm/dl Albumin 4.0 (3.4-5.0) gm/dl Globulin 3.9 (2.5-4.0) gm/dl Albumin/Globulin Ratio 1.0 (0.9-2) Urine Color Dark Yellow Urine Appearance Clear (Clear) Urine pH 6.5 (4.5-7.5) Ur Specific [place] 1.014 (1.000-1.030) Urine Protein Negative (Negative) Urine Glucose (UA) Negative (Negative) Urine Ketones Negative (Negative) Urine Blood Negative (Negative) Urine Nitrite Negative (Negative) Urine Bilirubin Negative (Negative) Urine Urobilinogen Negative (Negative) Ur Leukocyte Esterase Negative (Negative) Adenovirus (PCR) Not Detected (NotDetected) B. pertussis DNA (PCR) Not Detected (NotDetected) B.parapertussis DNA PCR Not Detected (NotDetected) C. pneumoniae DNA (PCR) Not Detected (NotDetected) Coronavirus OC43 (PCR) Not Detected (NotDetected) Coronavirus HKU1 (PCR) Not Detected (NotDetected) Coronavirus 229E (PCR) Not Detected (NotDetected) SARS-CoV-2 (PCR) Not Detected (NotDetected) Coronavirus NL63 (PCR) Not Detected (NotDetected) Human Metapneumovir PCR Not Detected (NotDetected) Influenza Type A (PCR) Not Detected (NotDetected) Influenza Type B (PCR) Not Detected (NotDetected) M. pneumoniae (PCR) Not Detected (NotDetected) Parainfluenza 1 (PCR) Not Detected (NotDetected) Parainfluenza 2 (PCR) Not Detected (NotDetected) Parainfluenza 3 (PCR) Not Detected (NotDetected) Parainfluenza 4 (PCR) Not Detected (NotDetected) RSV (PCR) Not Detected (NotDetected) Entero/Rhino (PCR) Not Detected (NotDetected) Administered Medications Discontinued Medications Ondansetron HCl (Ondansetron Inj 2 Mg/Ml 2 Ml Vial) 4 mg IV NOW STA Stop: 10/20/23 16:43 Last Admin: 10/20/23 17:44 Dose: 4 mg Documented By: SWD Imaging Data Radiologist's Impression: Chest X-Ray 10/20/23 16:51 SINGLE VIEW CHEST CLINICAL HISTORY: Dyspnea FINDINGS: 2 AP, portable, upright chest radiographs are compared to study dated 04/21/2022. The heart is enlarged. There is mild pulmonary vascular congestion. Atelectasis is seen at the lung bases. No airspace consolidation or large pleural effusion is identified. No pneumothorax is seen. The skeletal structures are osteopenic. The bony thorax is grossly intact. IMPRESSION: Cardiomegaly with mild pulmonary vascular congestion. ACT 112: Negative or not required by law. Electronically signed by: Chilango Rivas M.D. 10/20/2023 5:35 PM Discharge Plan Visit Data Chief Complaint: Referred by Doctor Stated Complaint: REF BY DOC, CONGESTIVE HEART FAILURE, KIDNEY DISEA ED Provider: Doris Zamorano Discharge Problem: Abdominal pain, Shortness of breath, Acute kidney injury superimposed on chronic kidney disease, Non-ST elevation NH (NSTEMI) Forms Stand Alone Forms: [facility] Prescriptions Prescriptions: No Action acetaminophen [Tylenol Extra Strength] 500 mg tablet 500 mg PO Q6H PRN (Reason: Pain) omeprazole magnesium [Acid Certified Scrum Master (omeprazole)] 20 mg capsule,delayed release(DR/EC) 20 mg PO BID hydralazine 25 mg tablet 25 mg PO TID Repatha SureClick 140 mg/mL pen injector 140 mg subcut .COMPLEX Rx Instructions: 140 mg subcut q other wk; TAKES ON EVERY OTHER TUESDAYS. carvedilol 25 mg tablet 25 mg PO BID Qty: 180 3RF Rx Instructions: must administer with a meal/food aspirin [John Low Dose Aspirin] 81 mg Tablet,Delayed Release (Dr/Ec) 81 mg PO QAM clotrimazole-betamethasone 1-0.05 % cream 1 applic TOPICAL QAM PRN (Reason: AFFECTED AREAS) vitamin B complex Tablet 1 tab PO QAM insulin aspart U-100 [Novolog FlexPen U-100 Insulin] 100 unit/mL (3 mL) Insulin Pen 0 sliding scale dose SUBCUT TID Tresiba FlexTouch U-100 100 unit/mL (3 mL) insulin pen 100 unit SUBCUT BID cholecalciferol (vitamin D3) [Vitamin D3] 125 mcg (5,000 unit) Tablet 125 mcg PO DAILY torsemide 20 mg tablet 20 mg PO DAILY Rx Instructions: ON HOLD D/T KIDNEY ISSUES lisinopril 20 mg Tablet 20 mg PO DAILY Rx Instructions: ON HOLD D/T KIDNEY ISSUES coQ10 (ubiquinol) 200 mg Capsule 200 mg PO DAILY Referrals Referrals: Bárbara Rios DO [Primary Care Provider] -
[2023-10-20 16:49] LABS: Appearance Urine Clear (Clear); Bilirubin Urine Negative (Negative); Blood Urine Negative (Negative); Color Urine Dark Yellow; Glucose Urine UA Negative (Negative); Ketones Urine Negative (Negative); Leukocyte Esterase Urine Negative (Negative); Nitrite Urine Negative (Negative); Protein Urine Negative (Negative); Specific Gravity Urine 1.014 (1.000-1.030); Urobilinogen Urine Negative (Negative); pH Urine 6.5 (4.5-7.5)
--- NOTE | 2023-10-20 17:36 | XRay Report ---
SINGLE VIEW CHEST CLINICAL HISTORY: Dyspnea FINDINGS: 2 AP, portable, upright chest radiographs are compared to study dated 04/21/2022. The heart is enlarged. There is mild pulmonary vascular congestion. Atelectasis is seen at the lung bases. No airspace consolidation or large pleural effusion is identified. No pneumothorax is seen. The skeletal structures are osteopenic. The bony thorax is grossly intact. IMPRESSION: Cardiomegaly with mild pulmonary vascular congestion. ACT 112: Negative or not required by law. Electronically signed by: Chilango Rivas M.D. 10/20/2023 5:35 PM
[2023-10-20] MEDS: ONDANSETRON INJ 2 MG/ML 2 ML VIAL IV STA (17:44)
[2023-10-20 18:17] LABS: Adenovirus PCR Not Detected (NotDetected); Bordetella parapertussis PCR Not Detected (NotDetected); Bordetella pertussis PCR Not Detected (NotDetected); Chlamydia pneumoniae PCR Not Detected (NotDetected); Coronavirus 229E PCR Not Detected (NotDetected); Coronavirus CoV-2 (COVID19)PCR Not Detected (NotDetected); Coronavirus HKU1 PCR Not Detected (NotDetected); Coronavirus NL63 PCR Not Detected (NotDetected); Coronavirus OC43PCR Not Detected (NotDetected); Human Metapneumovirus PCR Not Detected (NotDetected); Influenza A PCR Not Detected (NotDetected); Influenza B PCR Not Detected (NotDetected); Mycoplasma pneumoniae PCR Not Detected (NotDetected); Parainfluenza Virus 1 PCR Not Detected (NotDetected); Parainfluenza Virus 2 PCR Not Detected (NotDetected); Parainfluenza Virus 3 PCR Not Detected (NotDetected); Parainfluenza Virus 4 PCR Not Detected (NotDetected); Respiratory Syncytial VirusPCR Not Detected (NotDetected); Rhinovirus/Enterovirus PCR Not Detected (NotDetected)
--- NOTE | 2023-10-20 20:09 | CT Scan Report ---
Exam(s): CT ABDOMEN + PELVIS Without Contrast EXAM: CT Abdomen and Pelvis Without Intravenous Contrast CLINICAL HISTORY: Reason for exam: NEMESIO on CKD. TECHNIQUE: Axial computed tomography images of the abdomen and pelvis without intravenous contrast. CTDI is 28.14 mGy and DLP is 1499.82 mGy-cm. Automated exposure control was utilized for the study. A dose lowering technique was utilized adhering to the principles of ALARA. COMPARISON: No relevant prior studies available. FINDINGS: Lung bases: Unremarkable. No mass. No consolidation. ABDOMEN: Liver: Hepatic cirrhosis. Gallbladder and bile ducts: Cholelithiasis. No ductal dilation. Pancreas: Unremarkable. No ductal dilation. Spleen: Unremarkable. No splenomegaly. Adrenals: Unremarkable. No mass. Kidneys and ureters: Unremarkable. No hydronephrosis or nephrolithiasis. Stomach and bowel: Diverticulosis, without acute diverticulitis. No bowel obstruction. No free air. PELVIS: Appendix: No findings to suggest acute appendicitis. Bladder: Unremarkable. No stones. Reproductive: Unremarkable as visualized. ABDOMEN and PELVIS: Intraperitoneal space: See above. Bones/joints: Degenerative changes of the spine. No acute fracture. No dislocation. Soft tissues: Small fat-containing bilateral where hernias. Vasculature: Atherosclerotic changes of the aorta. No abdominal aortic aneurysm. Lymph nodes: Unremarkable. No enlarged lymph nodes. IMPRESSION: 1. No hydronephrosis or nephrolithiasis. 2. Cholelithiasis. 3. Hepatic cirrhosis. 4. Diverticulosis, without acute diverticulitis. No bowel obstruction. No free air. Electronically signed by: Parish Jeter MD 10/20/23 20:08 PM
--- NOTE | 2023-10-20 20:39 | History & Physical Report ---
Date of Service October 20, 2023 Assessment & Plan (1) Acute kidney injury superimposed on chronic kidney disease: Plan: 63-year-old male with past medical history significant for type 2 diabetes, hyperlipidemia, diabetic retinopathy, peripheral vascular disease, polyneuropathy, obstructive sleep apnea on CPAP, COPD, CKD stage III/ IV, diastolic CHF, history of CAD, obesity, hepatic steatosis, Arreola's esophagus with high-grade dysplasia, degenerative disc disease, history of tobacco abuse comes because of not feeling well and NEMESIO. Patient states his weight has been fluctuating lately and he was taking higher doses of torsemide. Generally takes torsemide 40 mg in the morning and 40 mg at night. Since about a week his dose was increased initially to 80 mg twice daily then 60 mg twice daily. He also took 1 dose of metolazone last Thursday. He also took 3 days of IV Lasix at home as per patient. Since he took metolazone is not feeling well. His weight has decreased. But he has some abdominal discomfort. Having poor appetite. Feeling nauseous. Some shortness of breath on exertion. Went to see PCP today. Outpatient labs done yesterday showed creatinine of 4.5 and advised to come to the hospital. Currently resting comfortably and hemodynamically stable. While resting no sob. Denies any chest pain. No cough. Feeling nauseous. No fevers. No headache. No runny nose or sore throat. Appetite is down. Today didn't Micturate much. Normal bowel movements. Denies bloody or black stools. No fevers. NEMESIO on CKD stage III/IV Baseline creatinine around 2 Plan creatinine of 4.2 Was getting higher dose of diuretics at home for increased weight gain Will hold home torsemide and lisinopril Gentle fluids for total of 500 mill Repeat labs in a.m. Consult nephrology for further recommendations Chronic diastolic CHF Holding diuretics for above reasons Will consult cardiology as patient was requiring higher diuretics as outpatient and optimization of medications Type 2 diabetes Continue long-acting insulin Sliding scale Diabetic diet Follow HbA1c levels Follow blood sugars Obstructive sleep apnea CPAP nightly Hyperlipidemia On Repatha Obesity Needs counseling Hypertension On Coreg, hydralazine Holding lisinopril and torsemide Will monitor GERD Arreola's esophagus On omeprazole DVT prophylaxis Heparin subcuq Disposition Telemetry Full code History of Present Illness Chief Complaint: NEMESIO Primary Care Provider: Bárbara Rios DO 63-year-old male with past medical history significant for type 2 diabetes, hyperlipidemia, diabetic retinopathy, peripheral vascular disease, polyneuropathy, obstructive sleep apnea on CPAP, COPD, CKD stage III/ IV, diastolic CHF, history of CAD, obesity, hepatic steatosis, Arreola's esophagus with high-grade dysplasia, degenerative disc disease, history of tobacco abuse comes because of not feeling well and NEMESIO. Patient states his weight has been fluctuating lately and he was taking higher doses of torsemide. Generally takes torsemide 40 mg in the morning and 40 mg at night. Since about a week his dose was increased initially to 80 mg twice daily then 60 mg twice daily. He also took 1 dose of metolazone last Thursday. He also took 3 days of IV Lasix at home as per patient. Since he took metolazone is not feeling well. His weight has decreased. But he has some abdominal discomfort. Having poor appetite. Feeling nauseous. Some shortness of breath on exertion. Went to see PCP today. Outpatient labs done yesterday showed creatinine of 4.5 and advised to come to the hospital. Currently resting comfortably and hemodynamically stable. While resting no sob. Denies any chest pain. No cough. Feeling nauseous. No fevers. No headache. No runny nose or sore throat. Appetite is down. Today didn't Micturate much. Normal bowel movements. Denies bloody or black stools. No fevers. Past medical history. As mentioned above Past surgical history. Right knee arthroscopy. Colonoscopy and EGD. EGD with endoscopic ultrasound. Lumbosacral epidural. Bilateral cataract surgeries. Sacroiliac joint injection. Left quad repair. Social history. . Smoked 2 packs a day for 13 years. Quit smoking 1987. Not drinking alcohol currently. No drug use. Family history. Son has celiac disease. Mother has kidney issues and stroke and glaucoma. Allergies Allergy/AdvReac Type Severity Reaction Status Date / Time Sulfa (Sulfonamide AdvReac Intermediate Hives Verified 10/20/23 18:21 Antibiotics) Home Medications Medication Instructions Recorded Confirmed Type aspirin 81 mg tablet,delayed 81 mg PO QAM 12/12/20 10/20/23 History release (John Low Dose Aspirin) clotrimazole-betamethasone 1 1 applic topical QAM PRN AFFECTED 12/12/20 10/20/23 History %-0.05 % topical cream AREAS insulin aspart U-100 100 unit/mL 0 sliding scale dose subcut TID 12/12/20 10/20/23 History (3 mL) subcutaneous pen (Novolog per sliding scale FlexPen U-100 Insulin aspart) vitamin B complex 1 tab PO QAM 12/12/20 10/20/23 History acetaminophen 500 mg tablet 500 mg PO Q6H PRN Pain 01/28/21 10/20/23 History (Tylenol Extra Strength) carvedilol 25 mg tablet 25 mg PO BID #180 tabs 05/28/21 10/20/23 Rx evolocumab 140 mg/mL subcutaneous 140 mg subcut .COMPLEX 05/28/21 10/20/23 History pen injector (Repatha SureClick) hydralazine 25 mg tablet 25 mg PO TID 05/28/21 10/20/23 History insulin degludec 100 unit/mL (3 100 unit subcut BID 07/12/21 10/20/23 History mL) subcutaneous pen (Tresiba FlexTouch U-100 insulin) cholecalciferol (vitamin D3) 125 125 mcg PO DAILY 04/21/22 10/20/23 History mcg (5,000 unit) tablet (Vitamin D3) omeprazole magnesium 20 mg 20 mg PO BID 05/06/22 10/20/23 History capsule,delayed release (Acid Upper Marker (omeprazole)) coQ10 (ubiquinol) 200 mg capsule 200 mg PO DAILY 10/20/23 10/20/23 History lisinopril 20 mg tablet 20 mg PO DAILY 10/20/23 10/20/23 History torsemide 20 mg tablet 60 mg PO BID 10/20/23 10/20/23 History Past Med/Surg History Medical History Arreola's esophagus Chronic diastolic heart failure Chronic kidney disease Degenerative disc disease Hepatic steatosis Hyperlipidemia Hypertension LVH (left ventricular hypertrophy) CHAPINCITO on CPAP Type 2 diabetes mellitus Surgical History History of ankle surgery History of cataract surgery History of colonoscopy Hx of arthroscopy of left knee Family History Other No pertinent family history Social History Smoking Status: Never smoker Second Hand Exposure: No; Do You Dip or Chew Tobacco: No; Hx Alcohol Use: No Hx Substance Use: No Preferred Language: Colombian Communication Ability: Effective Fish Housekeeper Required: No Beliefs That Will Affect Care: None marital status: Current Living Situation: Spouse Feels Safe at Home: Yes Assistive Devices: Cane, CPAP, Glasses and Stair Lift Review of Systems Review of Systems: All systems reviewed & are unremarkable except as noted in HPI & below Physical Exam Physical Exam: General- Not in distress. Head- atraumatic Eyes- PERRL. ENT- oropharynx clear Neck- supple, no JVD Lungs- clear to auscultation no wheezing or crackles. Heart- regular rate and rhythm; no murmur, no gallop. Abdomen- normal bowel sounds, soft, mild diffuse discomfort no distension Extremities- no pretibial edema, no erythema seen Neuro- alert, oriented PERRL, no facial palsy; no dysarthria; moves extremities. Results & Data Results & Data Vital Signs (Past 12 Hours) Vital Signs Temp Pulse Pulse Resp BP BP Pulse Ox 10/20/23 17:00 68 19 10/20/23 16:43 64 20 10/20/23 16:26 66 10/20/23 16:04 36.9 C 67 20 130/60 98 10/20/23 15:11 36.9 C 73 18 148/78 H 94 O2 Del Method 10/20/23 17:00 10/20/23 16:43 10/20/23 16:26 10/20/23 16:04 Room Air 10/20/23 15:11 Room Air Diagnostic Findings Laboratory Results WBC 7.54 K/ul (4.8-10.8) 10/20/23 16:00 RBC 4.43 M/uL (4.70-6.10) L 10/20/23 16:00 Hgb 12.5 g/dl (14.0-18.0) L 10/20/23 16:00 Hct 36.9 % (42.0-52.0) L 10/20/23 16:00 MCV 83.3 fL (80.0-100.0) 10/20/23 16:00 MCH 28.2 pg (25.0-34.0) 10/20/23 16:00 MCHC 33.9 g/dL (32.0-36.0) 10/20/23 16:00 RDW Std Deviation 42.8 fL (36.4-46.3) 10/20/23 16:00 RDW Coeff of Javi 13.9 % (11.5-14.5) 10/20/23 16:00 Plt Count 146 K/uL (130-400) 10/20/23 16:00 MPV 10.9 fL (9.4-12.4) 10/20/23 16:00 Immature Gran % (Auto) 0.4 % 10/20/23 16:00 Neut % (Auto) 58.2 % 10/20/23 16:00 Lymph % (Auto) 26.9 % 10/20/23 16:00 [place] % (Auto) 9.2 % 10/20/23 16:00 Eos % (Auto) 3.4 % 10/20/23 16:00 Baso % (Auto) 1.9 % 10/20/23 16:00 Neut # (Auto) 4.39 K/uL (1.40-6.50) 10/20/23 16:00 Lymph # (Auto) 2.03 K/uL (1.20-3.40) 10/20/23 16:00 [place]iken # (Auto) 0.69 K/uL (0.11-0.59) H 10/20/23 16:00 Eos # (Auto) 0.26 K/uL (0.00-0.50) 10/20/23 16:00 Baso # (Auto) 0.14 K/uL (0.00-0.20) 10/20/23 16:00 Immature Gran # (Auto) 0.03 K/uL (0.01-0.20) 10/20/23 16:00 Sodium 135 mmol/L (136-145) L 10/20/23 16:00 Potassium 3.9 mmol/L (3.5-5.1) 10/20/23 16:00 Chloride 99 mmol/L (98-107) 10/20/23 16:00 Carbon Dioxide 23 mmol/L (21-32) 10/20/23 16:00 Anion Gap 13 (3-11) H 10/20/23 16:00 BUN 90 mg/dl (6-23) H 10/20/23 16:00 Creatinine 4.28 mg/dl (0.6-1.4) H 10/20/23 16:00 Est Cr Clr Drug Dosing 22.8 ml/min 10/20/23 16:00 Est GFR ( Amer) 15.8 ml/min 10/20/23 16:00 Est GFR (Non-Af Amer) 13.7 ml/min 10/20/23 16:00 BUN/Creatinine Ratio 21.0 (10-20) H 10/20/23 16:00 Glucose 206 mg/dl (70-99(Fasting)) H 10/20/23 16:00 Calcium 9.0 mg/dl (8.6-10.3) 10/20/23 16:00 Magnesium 2.7 mg/dl (1.7-2.4) H 10/20/23 16:00 Total Bilirubin 0.8 mg/dl (0.2-1.0) 10/20/23 16:00 AST 61 U/L (13-39) H 10/20/23 16:00 ALT 60 U/L (7-52) H 10/20/23 16:00 Alkaline Phosphatase 71 U/L (34-104) 10/20/23 16:00 Troponin I High Sens 26.6 pg/ml (0-20) H 10/20/23 18:14 B-Natriuretic Peptide 48 pg/ml (0-100) 10/20/23 19:04 Total Protein 7.9 gm/dl (6.0-8.3) 10/20/23 16:00 Albumin 4.0 gm/dl (3.4-5.0) 10/20/23 16:00 Globulin 3.9 gm/dl (2.5-4.0) 10/20/23 16:00 Albumin/Globulin Ratio 1.0 (0.9-2) 10/20/23 16:00 Urine Color Dark Yellow 10/20/23 Unknown Urine Appearance Clear (Clear) 10/20/23 Unknown Urine pH 6.5 (4.5-7.5) 10/20/23 Unknown Ur Specific [place] 1.014 (1.000-1.030) 10/20/23 Unknown Urine Protein Negative (Negative) 10/20/23 Unknown Urine Glucose (UA) Negative (Negative) 10/20/23 Unknown Urine Ketones Negative (Negative) 10/20/23 Unknown Urine Blood Negative (Negative) 10/20/23 Unknown Urine Nitrite Negative (Negative) 10/20/23 Unknown Urine Bilirubin Negative (Negative) 10/20/23 Unknown Urine Urobilinogen Negative (Negative) 10/20/23 Unknown Ur Leukocyte Esterase Negative (Negative) 10/20/23 Unknown Adenovirus (PCR) Not Detected (NotDetected) 10/20/23 Unknown B. pertussis DNA (PCR) Not Detected (NotDetected) 10/20/23 Unknown B.parapertussis DNA PCR Not Detected (NotDetected) 10/20/23 Unknown C. pneumoniae DNA (PCR) Not Detected (NotDetected) 10/20/23 Unknown Coronavirus OC43 (PCR) Not Detected (NotDetected) 10/20/23 Unknown Coronavirus HKU1 (PCR) Not Detected (NotDetected) 10/20/23 Unknown Coronavirus 229E (PCR) Not Detected (NotDetected) 10/20/23 Unknown SARS-CoV-2 (PCR) Not Detected (NotDetected) 10/20/23 Unknown Coronavirus NL63 (PCR) Not Detected (NotDetected) 10/20/23 Unknown Human Metapneumovir PCR Not Detected (NotDetected) 10/20/23 Unknown Influenza Type A (PCR) Not Detected (NotDetected) 10/20/23 Unknown Influenza Type B (PCR) Not Detected (NotDetected) 10/20/23 Unknown M. pneumoniae (PCR) Not Detected (NotDetected) 10/20/23 Unknown Parainfluenza 1 (PCR) Not Detected (NotDetected) 10/20/23 Unknown Parainfluenza 2 (PCR) Not Detected (NotDetected) 10/20/23 Unknown Parainfluenza 3 (PCR) Not Detected (NotDetected) 10/20/23 Unknown Parainfluenza 4 (PCR) Not Detected (NotDetected) 10/20/23 Unknown RSV (PCR) Not Detected (NotDetected) 10/20/23 Unknown Entero/Rhino (PCR) Not Detected (NotDetected) 10/20/23 Unknown Impressions Chest X-Ray 10/20/23 16:51 SINGLE VIEW CHEST CLINICAL HISTORY: Dyspnea FINDINGS: 2 AP, portable, upright chest radiographs are compared to study dated 04/21/2022. The heart is enlarged. There is mild pulmonary vascular congestion. Atelectasis is seen at the lung bases. No airspace consolidation or large pleural effusion is identified. No pneumothorax is seen. The skeletal structures are osteopenic. The bony thorax is grossly intact. IMPRESSION: Cardiomegaly with mild pulmonary vascular congestion. ACT 112: Negative or not required by law. Electronically signed by: Chilango Rivas M.D. 10/20/2023 5:35 PM Abdomen/Pelvis CT 10/20/23 18:27 Exam(s): CT ABDOMEN + PELVIS Without Contrast EXAM: CT Abdomen and Pelvis Without Intravenous Contrast CLINICAL HISTORY: Reason for exam: NEMESIO on CKD. TECHNIQUE: Axial computed tomography images of the abdomen and pelvis without intravenous contrast. CTDI is 28.14 mGy and DLP is 1499.82 mGy-cm. Automated exposure control was utilized for the study. A dose lowering technique was utilized adhering to the principles of ALARA. COMPARISON: No relevant prior studies available. FINDINGS: Lung bases: Unremarkable. No mass. No consolidation. ABDOMEN: Liver: Hepatic cirrhosis. Gallbladder and bile ducts: Cholelithiasis. No ductal dilation. Pancreas: Unremarkable. No ductal dilation. Spleen: Unremarkable. No splenomegaly. Adrenals: Unremarkable. No mass. Kidneys and ureters: Unremarkable. No hydronephrosis or nephrolithiasis. Stomach and bowel: Diverticulosis, without acute diverticulitis. No bowel obstruction. No free air. PELVIS: Appendix: No findings to suggest acute appendicitis. Bladder: Unremarkable. No stones. Reproductive: Unremarkable as visualized. ABDOMEN and PELVIS: Intraperitoneal space: See above. Bones/joints: Degenerative changes of the spine. No acute fracture. No dislocation. Soft tissues: Small fat-containing bilateral where hernias. Vasculature: Atherosclerotic changes of the aorta. No abdominal aortic aneurysm. Lymph nodes: Unremarkable. No enlarged lymph nodes. IMPRESSION: 1. No hydronephrosis or nephrolithiasis. 2. Cholelithiasis. 3. Hepatic cirrhosis. 4. Diverticulosis, without acute diverticulitis. No bowel obstruction. No free air. Electronically signed by: Parish Jeter MD 10/20/23 20:08 PM ECG Additional Comments: ECG. Sinus rhythm with first-degree AV block rate of 67. Nonspecific intraventricular conduction block. Code Status & VTE Plan VTE Prophylaxis Plan VTE Prophylaxis will be ordered: Yes
[2023-10-20] MEDS: ONDANSETRON INJ 2 MG/ML 2 ML VIAL ONE (22:04)
--- OUTSIDE RECORDS SUMMARY | 2023-10-20 22:50 | External Medical Summary | Summary of Care ---
Author Name Unknown Organization [facility] Address [address] [facility] [place] [address] Phone [phone] Care Team Providers Care Daycare Provider Name Role Phone Bárbara Rios Primary Care Provider [phone] Reason for Visit * Reason Onset Date Comments [facility]: Maintenance 10/19/2023 Encounter Details Date Type Department Care Team (Late st Contact Info) Description 10/19/2023 Telephone [facility], [facility] [address] [facility] [place] [address] [facility], Nurse [facility] [address] [facility] [place] [address] [facility]: Maintenance Allergies Active Allergy Reactions Criticality Noted Date Comments Other Allergy (See Comments) Rash Low 10/13/2022 1+ cocamidopropyl betaine Sglt2 Inhibitors Other (Please comment) High 09/04/2020 Genital infection Sulfa Antibiotics Rash 10/15/2016 documented as of this encounter (statuses as of 10/19/2023) Medications Medication Sig Dispensed Refills Start Date End Date Status Cholecalciferol (VITAMIN D3) 2000 UNITS Capsule Take by mouth 5,000 Units daily . 30 Cap 5 04/29/2022 Active Aspirin 81 MG TabletIndications:t akes in the evening Take 1 Tablet by mouth in the morning. 0 Active B Complex Capsule Take 1 Cap by mouth daily. 0 Active acetaminophen (TYLENOL) 500 MG TabletIndications:A cute left-sided low back pain with left-sided sciatica Take 1 Tablet by mouth every 6 hours as needed for Pain, Moderate. 100 Tab 0 04/27/2022 Active CoQ10 100 MG Oral CapsuleIndications: takes in the evening Take 200 mg by mouth in the morning. Patient takes at night. 0 Active CPAP every night at bedtime. 0 Active OneTouch Delica Lancets 33G Use 3 times daily - E11.9 300 Each 3 09/06/2021 Active Additional Information Patient taking differently:, Use 3 times daily - E11.9,Indications: diabetes, Reported on 07/14/2022 FreeStyle Cindy 2 SensorIndications:T ype 2 diabetes mellitus with hemoglobin A1c goal of less than 7.0% (HCC) Use as directed every 14 days . 6 Each 3 04/24/2022 Active Metamucil 28.3 % Oral Powder (Psyllium) Take by mouth 2 times a day. 0 Active Clindamycin Phosphate 1 % External GelIndications:Foll iculitis Apply 2x daily to spots on scalp/neck until resolved, then when flaring 60 g 2 06/11/2022 Active Tresiba FlexTouch 200 UNIT/ML Subcutaneous Solution Pen-injectorIndicat ions:Type 2 diabetes mellitus with hemoglobin A1c goal of less than 7.0% (HCC) INJECT UNDER THE SKIN 100 UNITS TWICE DAILY OR DIRECTED 90 mL 3 12/18/2022 4 Active NovoLOG FlexPen 100 UNIT/ML Subcutaneous Solution Pen-injectorIndicat ions:Type 2 diabetes mellitus with hemoglobin A1c goal of less than 7.0% (HCC) INJECT UNDER THE SKIN 26 UNITS AT BREAKFAST, 26 UNITS AT LUNCH, 32 UNITS WITH DINNER PLUS CORRECTION PER [facility] OR DIRECTED UP TO 120 UNITS PER DAY 120 mL 3 12/18/2022 4 Active metOLazone 2.5 MG Oral Tablet (Zaroxolyn) ON HOLD as of 01/21. Take 1 tablet by mouth on twice a week on non-consecutive days, 30 minutes prior to torsemide. 30 Tablet 0 01/26/2023 Active BD Pen Needle Short U/F 31G X 8 MM (Insulin Pen Needle)Indications: Type 2 diabetes mellitus with hemoglobin A1c goal of less than 7.0% (HCC) USE TO INJECT INSULINS 5 TIMES DAILY 500 Each 3 02/16/2023 Active Semaglutide (2 MG/DOSE) 8 MG/3ML Subcutaneous Solution Pen-injector (Ozempic)Indication s:Type 2 diabetes mellitus with hemoglobin A1c goal of less than 8.0% (HCC) Inject 2 mg under the skin once a week. 9 mL 3 04/09/2023 Active Carvedilol 25 MG Oral Tablet (Coreg)Indications: HTN, goal below 140/90 TAKE ONE TABLET BY MOUTH EVERY MORNING AND TAKE ONE TABLET BY MOUTH BEFORE BEDTIME 200 Tablet 3 04/19/2023 4 Active Omeprazole 20 MG Oral Capsule Delayed Release (PriLOSEC) TAKE 1 CAPSULE BY MOUTH IN THE MORNING AND 1 CAPSULE BEFORE BEDTIME 30 MINUTES BEFORE A MEAL 180 Capsule 1 04/28/2023 4 Active Evolocumab 140 MG/ML Subcutaneous Solution Auto-injector (Komli Media)Indicatio ns:Dyslipidemia, goal LDL below 100,Mixed dyslipidemia Inject 140 mg under the skin every 14 days. 6 mL 3 06/19/2023 Active hydrALAZINE HCl 25 MG Oral Tablet (Apresoline)Indicat ions:HTN, goal below 140/90 Take 1 Tablet by mouth in the morning and 1 Tablet at noon and 1 Tablet before bedtime. 300 Tablet 3 08/12/2023 Active Lisinopril 20 MG Oral Tablet (Prinivil) Take 1 Tablet by mouth in the morning. 100 Tablet 3 08/12/2023 Active Clotrimazole-Betame thasone 1-0.05 % External Cream (Lotrisone) APPLY TOPICALLY TO AFFECTED AREA(S) TWO TIMES A DAY. 90 g 1 08/27/2023 5 Active Potassium Chloride Gaviota ER 10 MEQ Oral Tablet Extended ReleaseIndications: 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) Take 1 Tablet by mouth in the morning and 1 Tablet before bedtime. 180 Tablet 3 09/08/2023 Active OneTouch Verio In Vitro Strip (Glucose Blood)Indications:U ncontrolled type 2 diabetes mellitus with hyperglycemia (HCC) USE TO TEST BLOOD GLUCOSE 3 TIMES A DAY. DX: E11.9 300 Strip 3 09/23/2023 Active Ndctg-3-xkyz Ethyl Esters 1 GM Oral Capsule (Lovaza) Take 2 Capsules by mouth in the morning and 2 Capsules before bedtime. 360 Capsule 1 10/05/2023 Active Torsemide 20 MG Oral Tablet (Demadex)Indication s:Hypertensive 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 (HCC) Take 3 Tablets by mouth in the morning and 3 Tablets in the evening. 180 Tablet 3 10/19/2023 Active DIURETIC TITRATION PLANIndications:Chr onic heart failure with preserved ejection fraction (HCC),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) If no improvement on day 3, contact [facility] for a possible home visit 1 Each 0 10/19/2023 Active Hospital, Clinic, or Other Facility Administered Medication Ordered Dose Route Frequency Start Date End Date Status Albuterol Sulfate (Proventil) (5 MG/ML) 0.5% *conc* inhalation solution 2.5 mgIndications:Dyspnea and respiratory abnormalities 2.5 mg NEBULIZER PRN 11/20/2022 11/20/2023 Active Albuterol Sulfate (Proventil) (2.5 MG/3ML) 0.083% inhalation solution 2.5 mgIndications:Dyspnea and respiratory abnormalities 2.5 mg NEBULIZER PRN 11/20/2022 11/20/2023 Active documented as of this encounter (statuses as of 10/19/2023) Active Problems Patient Care Coordination No te Formatting of this note migh t be different from the original. HEART FAILURE Therapy Plan Treatment Medications Furosemide (Lasix) inj 160 mg 160 mg, IV Push, Every visit DIURETIC TITRATION PLAN Every visit Activate Diuretic Titration Plan for (Choose any that apply): Weight gain of 3 lbs overnight Activate Diuretic Titration Plan for (Choose any that apply): Weight gain of 5 lbs in one week Activate Diuretic Titration Plan for (Choose any that apply): Shortness of breath, Abdominal swelling, Lower extremity swelling Diuretic Titration Plan: Other (Specify in Comments). [Torsemide 100mg twice daily x 3 days] Diuretic Titration Plan: Take 1 dose of Metolazone 2.5 mg in addition to regular diuretic dose (May need prescription). [Take if initial DTP ineffective] metOLazone (Zaroxolyn) tab 2.5 mg 2.5 mg, Oral, Every visit Labs CBC Every visit Comprehensive Metabolic Panel Every visit BNP (NT-proBNP) Every visit Imaging XR Chest 2 Views Every visit What is the Reason for Study? shortness of breath Where is this test being performed? 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 07/25/2023 Last Assessment & Plan: "RED FLAG" Diabetic symptoms: Vision Changes and Nausea / Vomiting Goal HgbA1c <8 Diabetic Complications Vascular (examples: PVD, PAD, CAD, CVA) Neurologic (example: Peripheral Neuropathy) Renal (example: CKD, Proteinuria, Dialysis) Medication Regimen Basal/Long Acting Insulin Bolus/Short Acting Insulin GLP-1 Agonist (ex: Victoza, Trulicity, Ozempic) DM Secondary Prevention ARIANNA Inhibitor / ARB Aspirin Yearly Diabetic Eye Exam Additional Comments Follows with MTM and RDN Other specified peripheral vascular diseases Coronary artery calcification seen on CT scan Chronic obstructive pulmonary disease 01/21/2023 Overview: PFTs done on 12/18/2022 show severe obstructive disease. Not currently requiring any inhaled medications Last Assessment & Plan: PFTs done on 12/18/2022 show severe obstructive disease. Not currently requiring any inhaled medications. Needs follow-up scheduled with Pulmonary to discuss results and recommendations. Chronic heart failure with preserved ejection fr action 10/03/2022 Sacroiliitis 09/02/2022 Hypertensive heart and kidne y 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 4 chronic kidney disease 04/17/2022 Last Assessment & Plan: "RED FLAG" HF Symptoms: Leg Swelling (Examples: "I can't wear certain socks or shoes", "My pants feel tight") Abdominal Bloating (Examples: "I can't wear certain pants", "My belly feels hard", "I look ") Increased dyspnea on exertion (Example: "I can't walk to the kitchen or up the stairs") Medication Regimen: Beta Ritchie Therapy: Carvedilol ARIANNA Inhibitor/ARB Therapy: Lisinopril Diuretic therapy: Torsemide SGLT2 Inhibitor: No Current SGLT2 (Describe in the Comments) Remote Patient Monitoring Vendor: [facility] Device(s): Connected Scale Self - Management Plan Double dose of Torsemide for 3 days Exacerbation Plan BMP Chest X-Ray Additional Comments: Recommended using double torsemide for 3 days in a row, rather than 1 day like he has been doing Continue using [facility] scale Low sodium diet Chronic kidney disease, stage 3b 03/17/2022 Overview: Per CKD protocol Type 2 diabetes mellitus with peripheral vascula r disease 03/05/2022 Type 2 diabetes mellitus wit h diabetic polyneuropathy, with long-term current use of insulin 03/05/2022 Arreola's esophagus with high grade dysplasia Last Assessment & Plan: omeprazole 20 mg BID 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 08/16/2021 Morbid obesity due to excess calories 09/04/2020 Hepatic steatosis 05/29/2020 Uncontrolled type 2 diabetes mellitus with hyper glycemia 07/11/2019 BMI 40.0-44.9, adult 04/18/2019 Overview: Per Obesity protocol - ICD-10 update of inactive diagnosis DDD (degenerative disc disease), cervical 2017 H/O colonoscopy with polypectomy 08/18/2017 Overview: Age 49-in [place]-was rec rpt 10 yrs Mixed dyslipidemia 08/18/2017 Last Assessment & Plan: Continues on lovaza 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 [employer] History of tobacco use 08/18/2017 CHAPINCITO on CPAP 08/18/2017 Overview: ?18cwp Type 2 diabetes mellitus wit h hemoglobin A1c goal of less than 8.0% 12/31/2016 Last Assessment & Plan: Current Status: "Stable" for patient / At or near baseline Degree of Condition Awareness: Demonstrates very good awareness of condition, disease course, and prognosis "RED FLAG" Diabetic symptoms: o none Goal HgbA1c o <7 Diabetic Complications o Vascular (examples: PVD, PAD, CAD, CVA) Medication Regimen o Basal/Long Acting Insulin o Bolus/Short Acting Insulin DM Secondary Prevention o Aspirin documented as of this encounter (statuses as of 10/19/2023) Resolved Problems Problem Noted Date Diagnosed Date Resolved Date Type 2 diabetes mellitus wit h stage 3b chronic kidney disease, with long-term current use of insulin 05/25/2022 07/25/2023 Last Assessment & Plan: "RED FLAG" Diabetic symptoms: o Other: No identified symptoms Goal HgbA1c o Symptom Management Only Diabetic Complications o Vascular (examples: PVD, PAD, CAD, CVA) o Neurologic (example: Peripheral Neuropathy) o Renal (example: CKD, Proteinuria, Dialysis) Medication Regimen o Basal/Long Acting Insulin o Bolus/Short Acting Insulin o GLP-1 Agonist (ex: Victoza, Trulicity, Ozempic) DM Secondary Prevention o Aspirin Additional Comments o Recent A1c was elevated but blood glucose has been better controlled recently. Monitor using Multispectral Imaging Cindy. NEMESIO (acute kidney injury) 04/30/2022 Severe obesity with body mas s index (BMI) of 35.0 to 39.9 with serious comorbidity 04/30/2022 Acute on chronic diastolic heart failure 08/16/2021 10/03/2022 Elevated LFTs 08/16/2021 05/25/2022 Hypertensive heart disease w ith chronic diastolic congestive heart failure 01/25/202104/21 Need for pneumococcal vaccination 03/06/2020 05/29/2020 Severe obesity with body mas s index (BMI) of 35.0 to 39.9 with serious comorbidity 07/11/2019 Severe obesity with body mas s index (BMI) of 35.0 to 39.9 with serious comorbidity 08/18/2017 Overview: Per Obesity protocol - ICD-10 update of inactive diagnosis Mild single current episode of major depressive disorder 12/31/2016 08/18/2017 HTN, goal below 140/90 12/31/201605/25 Cataract of both eyes 12/31/20162017 documented as of this encounter (statuses as of 10/19/2023) Immunizations Name Administration Dates Next Due COVID-19 mRNA, LNP-s, No Pre serve, 2-Dose Series (Moderna) 12/10/2020,11/12/2020 Hepatitis B, 20+ yrs 01/04/2018,08/03/2017,07/03 Pneumococcal Conjugate Vacci ne, 20-valent ([id number]) 06/09/2022 Pneumococcal Polysaccharide PPV23 (Pneumovax) 03/06/2020 Seasonal Influenza, PF, 6 M & above, IM , (FluLaval or Fluzone) 04/01/2023,04/27/2022,03/21/2021,04/18,07/11/2019,08/18/2017 Seasonal Influenza, Split, I IV3, With Preserve, Inj 04/05/2016 TDAP (age 10 and older)(Boostrix) 12/29/2016 Zoster Vaccine Recombinant (Shingrix) 05/29/2020 ,01/27/2020 documented as of this encounter Social History Tobacco Use Types Packs/Day Years Used Date Smoking Tobacco: Former Cigarettes 2 13 1 975 - 1987 Smokeless Tobacco: Never Alcohol Use Standard Drinks/Week Comments Not Currently 0 (1 standard drink = 0.6 oz pur e alcohol) quit 1987 PHQ-2 Answer Date Recorded PHQ Adult Total Score 0 08/05/2023 Hunger Vital Sign Answer Date Recorded Within the past 12 months, y ou worried that your food would run out before you got the money to buy more. Never true 08/05/19 24 Within the past 12 months, t he food you bought just didn't last and you didn't have money to get more. Never true 08/05/2023 Sex and Gender Information Value Date Recorded Sex Assigned at Male 12/06/2018 8:36 AM EDT Gender Identity Male 12/06/2018 8:36 AM EDT Sexual Orientation Straight 12/06/2018 8: 36 AM EDT Job Start Date Occupation Industry Not on file Not on file Not on file documented as of this encounter Miscellaneous Notes * Telephone Encounter - Alexandra Mcgraw LPN - 10/19/2023 1:30 PM EDT [facility] trigger for weight increase Review of chart weight increased addressed by [facility] director of regulatory affairs nurse today No call placed documented in this encounter Plan of Treatment Upcoming Encounters Date Type Department Care Team (Latest Contact Info) Description 10/20/2023 11:10 AM EDT Office Visit Family Medicine [address] [place] [phone] Bárbara Rios[address] [place] [address] 10/21/2023 2:40 PM EDT Office Visit Nephrology [address] [place] [address] Shivani Magallon MD [address] [facility] [place] [address] 10/27/2023 8:30 AM EDT Office Visit Sleep Disorders Ctr [facility] [address] [place] [phone] Lindsey Sheikh CRNP [address] [facility] [address] 10/29/2023 11:30 AM EDT Scheduled Telephone [facility], [facility] [address] [facility] [address] Mery Calderon RDN [address] [place] [facility] [place] [address] 11/11/2023 11:00 AM EDT Telemedicine Pharmacy, [facility] [address] [facility] [place] [address] Pharmacist1, [facility] [address] [place] [address] [address] 11/11/2023 11:30 AM EDT Telemedicine Pharmacy, [facility] [address] [facility] [place] [address] [address] Pharmacist1, [facility] [address] [place] [address] [address] 11/20/2023 2:30 PM EDT Home Visit [facility], [facility] [address] [facility] [place] [address] Love Stevens, RN [address] [place] [address] 12/31/2023 11:45 AM EDT Hospital Encounter ENDO [facility], Endoscopy Room [facility] [address] [place] [phone] José Miguel Sifuentes MD [address] [place] [address] 12/31/2023 11:45 AM EDT - 12/31/2023 12:15 PM EDT Surgery ENDO [facility], Endoscopy Room [facility] [address] [place] [phone] José Miguel Sifuentes MD [address] [place] [address] COLONOSCOPY FLEXIBLE PROXIMAL DIAGNOSTIC 01/14/2024 12:30 PM EDT Cardiac Studies Cardiac Studies [address] [place] [address] 08/08/2024 9:30 AM EST Nurse Only Ancillary [address] [place] [address] [place], Nurse Annual [address] [place] [address] Scheduled Procedures Name Priority Associated Diagnoses Date/Ti me COLONOSCOPY FLEXIBLE PROXIMA L DIAGNOSTIC Recall Special screening for malignant neoplasms, colon 12/31/2023 11:45 AM EDT ESOPHAGOGASTRODUODENOSCOPY ( EGD), FLEXIBLE, TRANSORAL, DIAGNOSTIC Recall Arreola's esophagus with dysplasia Health Maintenance Due Date Last Done Comments HIV Screening 1974 Alpha-1 Antitrypsin 1977 COLONOSCOPY-EVERY 5 YRS AGES 18-100 01/01/2023 01/01/2018, 01/01/2018 COVID-19 Vaccine ( season) 2023 12/10/2020, 11/12/2020 Diabetic Foot Exam 09/02/2023 09/02/2022, 0 08/16/2021, 05/29/2020, Additional history exists HbA1c 12/11/2023 06/11/2023, 03/07, 12/17/2022, Additional history exists GFR 03/02/2024 09/02/2023, 08/06, 07/29/2023, Additional history exists Albumin/Creatinine Ratio 06/11/2024 023, 09/22/2022, 09/02/2022, Additional history exists Diabetic Eye Exam 07/01/2024 07/01/2023, , 02/12/2023, Additional history exists Depression Screening 08/05/2024 08/05/2023 O2 ASSESSMENT COMPLETED IN PAST YEAR FOR COPD 10/15/2024 10/16/2023 Arreola's Esophagus Surveilance 06/16/2025 06/16/2022, 06/16/2022, 03/20/2022, Additional history exists DTaP,Tdap,and Td Vaccines (2 - Td or Tdap) 12/29/2026 12/29/2016 Hepatitis B Completed 01/04/2018, 07/07, 07/03/2017 Zoster Vaccines Completed 05/29/2020, 01/27/2020 Pneumococcal Vaccine: Pediatrics (0 to 5 Years) and At-Risk Patients (6 to 64 Years) Completed 06/09/2022, 03/06/2020 Influenza Vaccine (FLU shot) Completed , 04/27/2022, 03/21/2021, Additional history exists GARDASIL-HPV IMMUNIZATION SERIES Aged Out No longer eligible based on patient's age to complete this topic MENINGOCOCCAL (MENACTRA/MENVEO) Aged Out No longer eligible based on patient's age to complete this topic documented as of this encounter Medical Devices Implanted Type Area Hand Upper And Bottom Lacer Device Identifier Shelf Expiration Date Model / Serial / Lot Lens Intraoc 21.0 - [id number] - [id number] Implanted:Qty: 1 on 01/22/2017 by Cheko Mcnamara MD at OR [facility] Right: Eye [employer] 08/05/2021 [id number] / [id number] / [id number] Lens Intraoc 21.5 - [id number] - [id number] Implanted:Qty: 1 on 02/03/2017 by Cheko Mcnamara MD at [facility] Left: Eye [employer] 09/02/2021 [id number] / [id number] / [id number] documented as of this encounter Advance Directives Latest Code Status on File Code Status Date Activated Date Inactivated Comments Full Code 02/03/2017 6:20 AM 02/03/2017 12:46 PM This o rder reflects the patients wishes and were consensually agreed upon. Code Status History Code Status Date Activated Date Inactivated Comments Full Code 01/22/2017 6:38 AM 01/22/2017 1:19 PM This order reflects the patients wishes and were consensually agreed upon. Care Teams Daycare Provider Relationship Specialty Start Date End Date Bárbara Rios DO [address] [place] [address] [place] [id number] PCP - General Internal Medicine 08/16/21 documented as of this encounter
--- OUTSIDE RECORDS SUMMARY | 2023-10-20 22:50 | External Medical Summary | Summary of Care ---
Author Name Unknown Organization [facility] Address [address] [facility] [place] [address] Phone [phone] Care Team Providers Care Business Continuity Consultant Name Role Phone Bárbara Rios Primary Care Provider [phone] Reason for Visit * Reason Onset Date Comments Follow Up 10/19/2023 Encounter Details Date Type Department Care Team (Late st Contact Info) Description 10/19/2023 Telephone [facility], [facility] [address] [place] [address] Love Stevens RN [address] [place] [address] Follow Up Allergies Active Allergy Reactions Criticality Noted Date [...] 32 UNITS WITH DINNER PLUS CORRECTION PER [facility] OR DIRECTED UP TO [...] Active Evolocumab 140 MG/ML Subcutaneous Solution Auto-injector (MOAEC)Indicatio ns:Dyslipidemia, goal LDL below 100,Mixed dyslipidemia Inject [...] DX: E11.9 300 Strip 3 09/23/2023 Active Zsjfp-2-efdj Ethyl Esters 1 GM Oral Capsule (Lovaza) [...] If no improvement on day 3, contact [facility] for a possible home visit 1 [...] in the Comments) Remote Patient Monitoring Vendor: [facility] [place] Device(s): Connected Scale Self - Management Plan [...] Continues on lovaza 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 [employer] History of tobacco use 08/18/2017 CHAPINCITO on [...] has been better controlled recently. Monitor using [employer]an.d[employer] Cindy. NEMESIO (acute kidney injury) 04/30/2022 Severe [...] yrs 01/04/2018,08/03/2017,07/03 Pneumococcal Conjugate Vacci ne, 20-valent ([id number]) 06/09/2022 Pneumococcal Polysaccharide PPV23 (Pneumovax) 03/06/2020 Seasonal [...] encounter Miscellaneous Notes * Telephone Encounter - Love Stevens RN - 10/19/2023 4:27 PM EDT Images from the original note were not included. Dr. Rios and Dr. Magallon- JOSE ALFREDO DTP initiated 10/10. (Torsemide 80mg BID x 3 days.) Home visit 10/11- received IV lasix 100mg. Home visit 10/13- received IV lasix 160mg Lasix effective x 1 day then rebounded. Home visit 10/15- Metolazone 2.5mg x1- was started on DTP that afternoon through the weekend. Diuresed nicely but back up 2.6lbs today. Torsemide increased to 60mg BID routinely. Spoke with patient today- states he can breathe better but his stomach is upset. Feels like his stomach is in knots. Concerned about his kidney function. Had patient go to [facility] to have lab work due to upcoming appointments with PCP tomorrow and Nephrology 10/20. Please see the weight trends below. documented in this encounter Plan of Treatment Upcoming Encounters Date Type Department Care Team (Latest Contact Info) Description 10/20/2023 11:10 AM EDT Office Visit Family Medicine [address] [place] [address] Bárbara Rios[address] [place] [address] 10/21/2023 2:40 PM EDT Office Visit Nephrology [address] [place] [address] Shivani Magallon MD 200 [facility] [place] [address] 10/27/2023 8:30 AM EDT [facility] [place] [facility] [place] [phone] Lindsey Sheikh CRNP [address] [place] [address] 10/29/2023 11:30 AM EDT Scheduled Telephone [facility], [facility] [address] [facility] [place] [phone] Mery Calderon RDN [address] [place] [phone] 11/11/2023 11:00 AM EDT Telemedicine Pharmacy, [facility] [address] [place] [address] Pharmacist1, [facility] [address] [place] [address] 11/11/2023 11:30 AM EDT Telemedicine Pharmacy, [facility] [address] [place] [address] Pharmacist1, [facility] [address] [place] [address] 11/20/2023 2:30 PM EDT Home Visit [facility], [facility] [address] [place] [address] Love Stevens, ANNE MARIE [address] [place] [address] 12/31/2023 11:45 AM EDT Hospital Encounter ENDO OSS, Endoscopy Room [facility] [address] [place] [phone] José Miguel Sifuentes MD [address] [place] [address] 12/31/2023 11:45 AM EDT - 12/31/2023 12:15 PM EDT Surgery ENDO [facility], Endoscopy Room [facility] [address] [place] [phone] José Miguel Sifuentes MD [address] [place] [address] COLONOSCOPY FLEXIBLE PROXIMAL DIAGNOSTIC 01/14/2024 12:30 PM EDT Cardiac Studies Cardiac Studies [address] [place] [address] 08/08/2024 9:30 AM EST Nurse Only Ancillary [address] [place] [address] [place], Nurse [address] [place] [address] Scheduled Procedures Name Priority Associated Diagnoses Date/Ti [...] this encounter Medical Devices Implanted Type Area Division Director Device Identifier Shelf Expiration Date Model / Serial / Lot Lens Intraoc 21.0 - [id number] - [id number] Implanted:Qty: 1 on 01/22/2017 by Cheko Mcnamara MD at OR [facility] Right: Eye BAUSCH & LOMB 08/05/2021 [id number] / [id number] / [id number] Lens Intraoc 21.5 - [id number] - [id number] Implanted:Qty: 1 on 02/03/2017 by Cheko Mcnamara MD at OR [facility] Left: Eye BAUSCH & LOMB 09/02/2021 [id number] / [id number] / [id number] documented as of this encounter Advance Directives Latest Code Status on File Code Status Date Activated Date Inactivated Comments Full Code 02/03/2017 6:20 AM 02/03/2017 12:46 PM This order reflects the patients wishes and were consensually agreed upon. Code Status History Code Status Date Activated Date Inactivated Comments Full Code 01/22/2017 6:38 AM 01/22/2017 1:19 PM This order reflects the patients wishes and were consensually agreed upon. Care Teams Business Continuity Consultant Relationship Specialty Start Date End Date Bárbara Rios DO [address] [place] [address] [place] [address] PCP - General Internal Medicine 08/16/21 documented as of this encounter
--- OUTSIDE RECORDS SUMMARY | 2023-10-20 22:50 | External Medical Summary | Summary of Care ---
Author Name Unknown Organization [facility] Address [address] [facility] [address] Phone [phone] Care Team Providers Care Welding Machine Operator Gas Name Role Phone Bárbara Rios Primary Care Provider [phone] Reason for Visit * Reason Onset Date Comments Follow Up 10/19/2023 Encounter Details Date Type Department Care Team (Late st Contact Info) Description 10/19/2023 Telephone [facility], [facility] [address] [place] [address] Love Stevens RN [address] [place] [address] Follow Up Allergies Active Allergy Reactions Criticality Noted Date Comments Other Allergy (See Comments) Rash Low 10/13/2022 1+ cocamidopropyl betaine Sglt2 Inhibitors Other (Please comment) High 09/04/2020 Genital infection Sulfa Antibiotics Rash 10/15/2016 documented as of this encounter (statuses as of 10/20/2023) Medications Medication Sig Dispensed Refills Start Date [...] 32 UNITS WITH DINNER PLUS CORRECTION PER [facility] OR DIRECTED UP TO 120 UNITS [...] Active Evolocumab 140 MG/ML Subcutaneous Solution Auto-injector (YellowKorner)Indicatio ns:Dyslipidemia, goal LDL below 100,Mixed dyslipidemia Inject [...] DX: E11.9 300 Strip 3 09/23/2023 Active Twqov-6-yvsy Ethyl Esters 1 GM Oral Capsule (Lovaza) [...] If no improvement on day 3, contact [facility] for a possible home visit 1 [...] as of this encounter (statuses as of 10/20/2023) Active Problems Patient Care Coordination No te [...] in the Comments) Remote Patient Monitoring Vendor: [facility] [place] Device(s): Connected Scale Self - Management Plan [...] Continues on lovaza 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 [employer] History of tobacco use 08/18/2017 CHAPINCITO on [...] as of this encounter (statuses as of 10/20/2023) Resolved Problems Problem Noted Date Diagnosed Date [...] has been better controlled recently. Monitor using [employer]lex[employer]PicassoM[employer] Cindy. NEMESIO (acute kidney injury) 04/30/2022 Severe [...] as of this encounter (statuses as of 10/20/2023) Immunizations Name Administration Dates Next Due COVID-19 mRNA, LNP-s, No Pre serve, 2-Dose Series (Moderna) 12/10/2020,11/12/2020 Hepatitis B, 20+ yrs 01/04/2018,08/03/2017,07/03 Pneumococcal Conjugate Vacci ne, 20-valent (Helmgwi24) 06/09/2022 Pneumococcal Polysaccharide PPV23 (Pneumovax) 03/06/2020 Seasonal [...] encounter Miscellaneous Notes * Telephone Encounter - Leona Rogers CRNP - 10/20/2023 8:48 AM EDT TT communication with Dr. Magallon--patient was advised by [facility] to hold lisinopril for now. Per Dr. Verduzco, patient can hold diuretic for now and she will re-evaluate tomorrow. * Telephone Encounter - Love Stevens RN [...] his kidney function. Had patient go to [facility] to have lab work due to upcoming appointments with PCP tomorrow and Nephrology 10/20. Please see the weight trends below. documented in this encounter Plan of Treatment Upcoming Encounters Date Type Department Care Team (Latest Contact Info) Description 10/20/2023 11:10 AM EDT Office Visit Family Medicine [address] [place] [address] Bárbara Rios[address] [place] [address] 10/21/2023 2:40 PM EDT Office Visit Nephrology [address] [place] [address] Shivani Magallon MD [address] [place] [address] 10/27/2023 8:30 AM EDT Office Visit Sleep Disorders Ctr [facility] [place] [address] [place] [phone] Lindsey Sheikh CRNP [address] [place] [address] 10/29/2023 11:30 AM EDT Scheduled Telephone [facility], [facility] [address] [facility] [place] [address] [place] Mery Precious, RDN [address] [facility] [place] [address] 11/11/2023 11:00 AM EDT Telemedicine Pharmacy, [facility] [address] [facility] [place] [address] Pharmacist1, [facility] 200 [facility] [place] [address] 11/11/2023 11:30 AM EDT Telemedicine Pharmacy, [facility] 200 [facility] [place] [address] Pharmacist1, [facility] 200 [facility] [place] [address] 11/20/2023 2:30 PM EDT Home Visit [facility], [facility] [address] [place] [address] Love Stevens RN [address] [place] [address] 12/31/2023 11:45 AM EDT Hospital Encounter ENDO [facility], Endoscopy Room [facility] [address] [place] [phone] José Miguel Sifuentes MD [address] [place] [address] 12/31/2023 11:45 AM EDT - 12/31/2023 12:15 PM EDT Surgery ENDO [facility], Endoscopy Room [facility] [address] [place] [phone] José Miguel Sifuentes MD [address] [place] [address] COLONOSCOPY FLEXIBLE PROXIMAL DIAGNOSTIC 01/14/2024 12:30 PM EDT Cardiac Studies Cardiac Studies [address] [place] [address] 08/08/2024 9:30 AM EST Nurse Only Ancillary [address] [place] [address] [place], Nurse Annual [address] [place] [address] Scheduled Procedures Name Priority Associated Diagnoses Date/Ti [...] 06/11/2023, 03/07, 12/17/2022, Additional history exists GFR 04/19/2024 10/19/2023, 08/07, 08/24/2023, Additional history exists Albumin/Creatinine Ratio 06/11/2024 023, [...] this encounter Medical Devices Implanted Type Area Aquaculture Director Device Identifier Shelf Expiration Date Model / Serial / Lot Lens Intraoc 21.0 - [id number] - [id number] Implanted:Qty: 1 on 01/22/2017 by Cheko Mcnamara MD at OR [facility] Right: Eye BAUSCH & LOMB 08/05/2021 [id number] / [id number] / [id number] Lens Intraoc 21.5 - [id number] - [id number] Implanted:Qty: 1 on 02/03/2017 by Cheko Mcnamara MD at OR [facility] Left: Eye BAUSCH & LOMB 09/02/2021 [id number] / [id number] / [id number] documented as of this encounter Advance Directives [...] and were consensually agreed upon. Care Teams Welding Machine Operator Gas Relationship Specialty Start Date End Date Bárbara Rios DO [address] [place] [address] [place] [phone] PCP - General Internal Medicine 08/16/21 documented as of this encounter
--- OUTSIDE RECORDS SUMMARY | 2023-10-20 22:50 | External Medical Summary | Summary of Care ---
Author Name Unknown Organization [facility] Address [address] [facility] [address] Phone [phone] Care Team Providers Care Security Incident Response Engineer Name Role Phone Bárbara Rios Primary Care Provider [phone] Reason for Visit * Reason Onset Date Comments Follow Up 10/19/2023 Encounter Details Date Type Department Care Team (Late st Contact Info) Description 10/19/2023 Telephone [facility], [facility] [address] [place] [address] Love Stevens RN [address] [place] [address] Follow Up Allergies Active Allergy Reactions Criticality [...] 32 UNITS WITH DINNER PLUS CORRECTION PER [facility] OR DIRECTED UP TO 120 UNITS [...] Active Evolocumab 140 MG/ML Subcutaneous Solution Auto-injector (Joobili)Indicatio ns:Dyslipidemia, goal LDL below 100,Mixed dyslipidemia Inject [...] DX: E11.9 300 Strip 3 09/23/2023 Active Eaxhm-9-qtpo Ethyl Esters 1 GM Oral Capsule (Lovaza) [...] If no improvement on day 3, contact [facility] for a possible home visit 1 [...] in the Comments) Remote Patient Monitoring Vendor: [facility] [place] Device(s): Connected Scale Self - Management Plan [...] Continues on lovaza 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 [employer] History of tobacco use 08/18/2017 CHAPINCITO on [...] has been better controlled recently. Monitor using Aw[employer] Card[employer] and [employer] Cindy. NEMESIO (acute kidney injury) 04/30/2022 Severe [...] yrs 01/04/2018,08/03/2017,07/03 Pneumococcal Conjugate Vacci ne, 20-valent (Rqrygmu50) 06/09/2022 Pneumococcal Polysaccharide PPV23 (Pneumovax) 03/06/2020 Seasonal [...] his kidney function. Had patient go to [facility] to have lab work due to upcoming appointments with PCP tomorrow and Nephrology 10/20. Please see the weight trends below. documented in this encounter Plan of Treatment Upcoming Encounters Date Type Department Care Team (Latest Contact Info) Description 10/20/2023 11:10 AM EDT Office Visit Family Medicine [address] [place] [address] B[address]bara R[address] [place] [address] 10/21/2023 2:40 PM EDT Office Visit Nephrology [address] [place] [address] Shivani Magallon MD 200 [facility] [place] [address] 10/27/2023 8:30 AM EDT Office [facility] [place] [facility] [place] [phone] Lindsey Sheikh CRNP [address] [place] [address] 10/29/2023 11:30 AM EDT Scheduled Telephone [facility], [facility] [address] [facility] [place] [phone] Mery Calderon RDN [address] [place] [phone] 11/11/2023 11:00 AM EDT Telemedicine Pharmacy, [facility] [address] [place] [address] Pharmacist1, [facility] [address] [place] [address] 11/11/2023 11:30 AM EDT Telemedicine Pharmacy, [facility] [address] [place] [address] Pharmacist1, [facility] [address] [place] [address] 11/20/2023 2:30 PM EDT Home Visit [facility], [facility] [address] [place] [address] Love Stevens, ANNE MARIE [address] [place] [address] 12/31/2023 11:45 AM EDT Hospital Encounter ENDO OSS, Endoscopy Room [facility] [address] [place] [phone] José Miguel Sifuentes MD [address] [place] [address] 12/31/2023 11:45 AM EDT - 12/31/2023 12:15 PM EDT Surgery ENDO [facility], Endoscopy Room [facility] [address] [place] [phone] José Miguel Sifuentes MD [address] [place] [address] COLONOSCOPY FLEXIBLE PROXIMAL DIAGNOSTIC 01/14/2024 12:30 PM EDT Cardiac Studies Cardiac Studies [address] [place] [address] 08/08/2024 9:30 AM EST Nurse Only Ancillary [address] [place] [address] [place], Nurse [address] [place] [address] Scheduled Procedures Name Priority Associated Diagnoses Date/Ti me COLONOSCOPY FLEXIBLE PROXIMA L DIAGNOSTIC Recall Special screening for malignant neoplasms, colon 12/31/2023 11:45 AM EDT ESOPHAGOGASTRODUODENOSCOPY ( EGD), FLEXIBLE, TRANSORAL, DIAGNOSTIC Recall Arreola's esophagus with dysplasia Health Maintenance Due Date Last Done Comments HIV Screening 1974 Alpha-1 Antitrypsin 1977 COLONOSCOPY-EVERY 5 YRS AGES 18-100 01/01/2023 01/01/2018, 01/01/2018 COVID-19 Vaccine (2022- season) 2023 12/10/2020, 11/12/2020 Diabetic Foot Exam [...] this encounter Medical Devices Implanted Type Area Tracer Bullet Charging Machine Operator Device Identifier Shelf Expiration Date Model / Serial / Lot Lens Intraoc 21.0 - [id number] - [id number] Implanted:Qty: 1 on 01/22/2017 by Cheko Mcnamara MD at OR [facility] Right: Eye BAUSCH & LOMB 08/05/2021 [id number] / [id number] / [id number] Lens Intraoc 21.5 - [id number] - [id number] Implanted:Qty: 1 on 02/03/2017 by Cheko Mcnamara MD at OR [facility] Left: Eye BAUSCH & LOMB 09/02/2021 [id number] / [id number] / [id number] documented as of this encounter Advance Directives [...] and were consensually agreed upon. Care Teams Security Incident Response Engineer Relationship Specialty Start Date End Date Bárbara Rios DO [address] [place] [address] [place] [address] PCP - General Internal Medicine 08/16/21 documented as of this encounter
--- OUTSIDE RECORDS SUMMARY | 2023-10-20 22:50 | External Medical Summary | Summary of Care ---
Author Name Unknown Organization [facility] Address [address] [facility] [address] Phone [phone] Care Team Providers Care Crossing Guard Name Role Phone Bárbara Rios Primary Care Provider [phone] Reason for Visit * Reason Onset Date Comments Follow Up 10/19/2023 Encounter Details Date Type Department Care Team (Late st Contact Info) Description 10/19/2023 Telephone [facility], [facility] [address] [place] [address] Love Stevens RN [address] [place] [address] Follow Up Allergies Active Allergy Reactions Criticality [...] 32 UNITS WITH DINNER PLUS CORRECTION PER [facility] OR DIRECTED UP TO 120 [...] Active Evolocumab 140 MG/ML Subcutaneous Solution Auto-injector (Purchext)Indicatio ns:Dyslipidemia, goal LDL below 100,Mixed dyslipidemia Inject [...] DX: E11.9 300 Strip 3 09/23/2023 Active Aloog-5-drzy Ethyl Esters 1 GM Oral Capsule (Lovaza) [...] If no improvement on day 3, contact [facility] for a possible home visit 1 [...] in the Comments) Remote Patient Monitoring Vendor: [facility] [place] Device(s): Connected Scale Self - Management Plan [...] Continues on lovaza 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 [employer] History of tobacco use 08/18/2017 CHAPINCITO on [...] has been better controlled recently. Monitor using WebChal[employer] Cindy. NEMESIO (acute kidney injury) 04/30/2022 Severe [...] yrs 01/04/2018,08/03/2017,07/03 Pneumococcal Conjugate Vacci ne, 20-valent (Zihdkop61) 06/09/2022 Pneumococcal Polysaccharide PPV23 (Pneumovax) 03/06/2020 Seasonal [...] his kidney function. Had patient go to [facility] to have lab work due to upcoming appointments with PCP tomorrow and Nephrology 10/20. Please see the weight trends below. documented in this encounter Plan of Treatment Upcoming Encounters Date Type Department Care Team (Latest Contact Info) Description 10/20/2023 11:10 AM EDT Office Visit Family Medicine [address] [place] [address] [address] R[address] [place] [address] 10/21/2023 2:40 PM EDT Office Visit Nephrology [address] [place] [address] Shivani Magallon MD 200 [facility] [place] [address] 10/27/2023 8:30 AM EDT [facility] [place] [facility] [place] [phone] Lindsey Sheikh CRNP [address] [place] [address] 10/29/2023 11:30 AM EDT Scheduled Telephone [facility], [facility] [address] [facility] [place] [id number] Mery Calderon RDN [address] [place] [phone] 11/11/2023 11:00 AM EDT Telemedicine Pharmacy, [facility] [address] [place] [address] Pharmacist1, [facility] [address] [place] [address] 11/11/2023 11:30 AM EDT Telemedicine Pharmacy, [facility] [address] [place] [address] Pharmacist1, [facility] [address] [place] [address] 11/20/2023 2:30 PM EDT [facility] Visit [facility], [facility] [address] [place] [address] Love Stevens, ANNE MARIE [address] [place] [address] 12/31/2023 11:45 AM EDT Hospital Encounter ENDO OSS, Endoscopy Room [facility] [address] [place] [phone] José Miguel Sifuentes MD [address] [place] [address] 12/31/2023 11:45 AM EDT - 12/31/2023 12:15 PM EDT Surgery ENDO [facility], Endoscopy Room [facility] [address] [place] [phone] José Miguel Sifuentes MD [address] [place] [address] COLONOSCOPY FLEXIBLE PROXIMAL DIAGNOSTIC 01/14/2024 12:30 PM EDT Cardiac Studies Cardiac Studies [address] [place] [address] 08/08/2024 9:30 AM EST Nurse Only Ancillary [address] [place] [address] [place], Nurse [address] [place] [address] Scheduled Procedures Name Priority Associated Diagnoses Date/Ti [...] this encounter Medical Devices Implanted Type Area Fishery Division Chief Device Identifier Shelf Expiration Date Model / Serial / Lot Lens Intraoc 21.0 - [id number] - [id number] Implanted:Qty: 1 on 01/22/2017 by Cheko Mcnamara MD at OR [facility] Right: Eye BAUSCH [employer] LOMB 08/05/2021 [id number] / [id number] / [id number] Lens Intraoc 21.5 - [id number] - [id number] Implanted:Qty: 1 on 02/03/2017 by Cheko Mcnamara MD at OR [facility] Left: Eye BAUSCH & LOMB 09/02/2021 [id number] / [id number] / [id number] documented as of this encounter Advance Directives [...] and were consensually agreed upon. Care Teams Crossing Guard Relationship Specialty Start Date End Date Bárbara Rios DO [address] [place] [address] [place] [address] PCP - General Internal Medicine 08/16/21 documented as of this encounter
--- OUTSIDE RECORDS SUMMARY | 2023-10-20 22:51 | External Medical Summary | Summary of Care ---
Author Name Unknown Organization [facility] Address [address] [facility] [place] [address] Phone [phone] Care Team Providers Care Mink Farmer Name Role Phone Bárbara Rios Primary Care Provider [phone] Reason for Visit * Reason Comments [facility]: Acute Encounter Details Date Type Department Care Team (Late st Contact Info) Description 10/14/2023 4:00 PM EDT [facility] Visit [facility], [facility] [email or web address] [place] [address] Love Stevens, RN [email or web address] [place] [address] Chronic heart failure with preserved ejection fraction (HCC)*; 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) Allergies Active Allergy Reactions Criticality Noted Date Comments Other Allergy (See Comments) Rash Low 10/13/2022 1+ cocamidopropyl betaine Sglt2 Inhibitors Other (Please comment) High 09/04/2020 Genital infection Sulfa Antibiotics Rash 10/15/2016 documented as of this encounter (statuses as of 10/15/2023) Medications Medication Sig Dispensed Refills Start Date [...] 32 UNITS WITH DINNER PLUS CORRECTION PER [facility] OR DIRECTED UP TO 120 UNITS [...] Active Evolocumab 140 MG/ML Subcutaneous Solution Auto-injector (Repatha SureClick)Indicatio ns:Dyslipidemia, goal LDL below 100,Mixed dyslipidemia Inject [...] DAY. 90 g 1 08/27/2023 5 Active Torsemide 20 MG Oral Tablet (Demadex)Indication s:Hypertensive 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 (HCC) 40mg in the morning and 40mg in the afternoon. 180 Tablet 3 09/03/2023 Active Potassium Chloride [facility] 10 MEQ [...] DX: E11.9 300 Strip 3 09/23/2023 Active DIURETIC TITRATION PLAN If no improvement on day 3, contact heart failure managing provider. 60 Each 0 09/30/2023 Active Pyyqp-5-qbcp Ethyl Esters 1 GM Oral Capsule (Lovaza) Take 2 Capsules by mouth in the morning and 2 Capsules before bedtime. 360 Capsule 1 10/05/2023 Active Hospital, Clinic, or Other Facility Administered [...] as of this encounter (statuses as of 10/15/2023) Active Problems Problem Noted Date Diagnosed Date Type 2 [...] in the Comments) Remote Patient Monitoring Vendor: [employer] Device(s): Connected Scale Self - Management Plan [...] Continues on lovaza 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 [employer] History of tobacco use 08/18/2017 CHAPINCITO on [...] as of this encounter (statuses as of 10/15/2023) Resolved Problems Problem Noted Date Diagnosed Date [...] has been better controlled recently. Monitor using freestyle Cindy. NEMESIO (acute kidney injury) 04/30/2022 Severe [...] as of this encounter (statuses as of 10/15/2023) Immunizations Name Administration Dates Next Due COVID-19 mRNA, LNP-s, No Pre serve, 2-Dose Series (Moderna) 12/10/2020,11/12/2020 Hepatitis B, 20+ yrs 01/04/2018,08/03/2017,07/03 Pneumococcal Conjugate Vacci ne, 20-valent ([id number]) 06/09/2022 Pneumococcal Polysaccharide PPV23 (Pneumovax) 03/06/2020 Seasonal [...] on file documented as of this encounter Last Filed Vital Signs Vital Sign Reading Time Taken Comments Blood Pressure 138/64 10/14/2023 2:13 PM EDT Pulse 62 10/14/2023 2:13 PM EDT Temperature 36.1 C (96.9 F) 10/14/2023 2:13 PM ED T Respiratory Rate 18 10/14/2023 2:13 PM EDT Oxygen Saturation 96% 10/14/2023 2:13 PM EDT Inhaled Oxygen Concentration - - Weight - - Height - - Body Mass Index - - documented in this encounter Progress Notes * Love Stevens RN - 10/14/2023 2:12 PM EDT Images from the original note were not included. [facility] Stagecraft ProfessorBack Tender Pulp Drier Visit Date: 10/14/2023 Time: 2:12 PM Name: Tony Delong : 1960 Current Concerns: Patient seen for acute visit- Received 100mg IV lasix 10/11/22- (effectiveness noted) CHF therapy plan established 10/12/23 Weight trigger today- see below. Increase of 2.2lbs. Sob above baseline + abdominal bloating. Lungs clear but diminished No LE edema noted Overall not feeling well- fatigued with ambulation from living room to kitchen. Per CHF therapy plan- Lasix 160mg given IV today via Right FA Tolerated well. Problems/Symptoms: Review of Systems Constitutional: Positive for fatigue. Respiratory: Positive for shortness of breath. Cardiovascular: Negative. Gastrointestinal: Positive for abdominal distention. Genitourinary: Negative. Musculoskeletal: Negative. Skin: Negative. Hematological: Negative. Psychiatric/Behavioral: Negative. Physical Exam: BP 138/64 (BP Site: Left Arm, BP Position: Sitting, BP Cuff Size: Regular) | Pulse 62 | Temp 36.1 C (96.9 F) (Tympanic) | Resp 18 | SpO2 96% Pain 0 [facility]-10 Completed this Visit: No. No falls since last visit Treatment/Plan: IV lasix right FA Tolerated well Low NA diet AMC scales daily Fluid restrictions Continue medications as prescribed Keep all upcoming MD appointments Fall precautions Blood sugars QID- awaiting Mari White RN CM follow up in 1 day via phone. Home Interventions Provided: IV Interventions: Diuretic Consulted PCP/Specialist Reinforced current Plan of Care, including self-management and medication regimen Patient Needs to Remember: Call [facility] with ay medical concerns/ red flags Referrals Needed: N/a Follow Up: Is there cellular connectivity/connectivity in the home? Yes Does the patient have internet in the home? Yes Patient encouraged to call the intake phone number for all urgent but not emergent issues. Scheduled to follow up with patient in 1 day via phone.. Love Du RN 10/14/2023 2:12 PM documented in this encounter Plan of Treatment Upcoming Encounters Date Type Department Care Team (Latest Contact Info) Description 10/15/2023 1:15 PM EDT Scheduled Telephone [facility] [address] [place] [address] Coordinator, [facility] [address] [place] [address] 10/20/2023 11:10 AM EDT Office Visit Family Medicine [address] [place] [phone] Bárbara Rios[address] [place] [address] 10/21/2023 2:40 PM EDT Office Visit Nephrology [address] [place] [address] Shivani Magallon MD [address] [facility] [place] [address] 10/27/2023 8:30 AM EDT Office Visit [facility] Disorders [facility] [address] [place] [phone] Lindsey Sheikh CRNP [address] [place] [address] 10/29/2023 11:30 AM EDT Scheduled Telephone [facility], [facility] [address] [facility] [place] [address] Mery Calderon RDN [address] [facility] [place] [address] 11/11/2023 11:00 AM EDT Telemedicine Pharmacy, [facility] [address] [facility] [place] [address] Pharmacist1, [facility] 200 [facility], [place] [address] 11/11/2023 11:30 AM EDT Telemedicine Pharmacy, [facility] [address] [facility] [place] [address] Pharmacist1, [facility] 200 [facility] [place] [address] 11/20/2023 2:30 PM EDT Home Visit [facility], [facility] [address] [place] [address] Love Stevens, ANNE MARIE [address] [place] [address] 12/31/2023 11:45 AM EDT Hospital Encounter ENDO [facility], Endoscopy Room [facility] 132 [place] [phone] José Miguel Sifuentes MD [address] [place] [address] 12/31/2023 11:45 AM EDT - 12/31/2023 12:15 PM EDT Surgery ENDO [facility], Endoscopy Room [facility] [address] [place] [phone] José Miguel Sifuentes MD [address] [place] [address] COLONOSCOPY FLEXIBLE PROXIMAL DIAGNOSTIC 01/14/2024 12:30 PM EDT Cardiac Studies Cardiac Studies [address] [place] [address] 08/08/2024 9:30 AM EST Nurse Only Ancillary [address] [place] [address] [place], Nurse Annual [address] [place] [address] Scheduled Procedures Name Priority Associated Diagnoses Date/Ti [...] ASSESSMENT COMPLETED IN PAST YEAR FOR COPD 10/11/2024 10/12/2023 Arreola's Esophagus Surveilance 06/16/2025 06/16/2022, 06/16/2022, 03/20/2022, [...] this encounter Medical Devices Implanted Type Area Sand Plant Attendant Device Identifier Shelf Expiration Date Model / Serial / Lot Lens Intraoc 21.0 - [id number] - [id number] Implanted:Qty: 1 on 01/22/2017 by Cheko Mcnamara MD at OR [facility] Right: Eye BAUSCH & LOMB 08/05/2021 [id number] / [id number] / [id number] Lens Intraoc 21.5 - [id number] - [id number] Implanted:Qty: 1 on 02/03/2017 by Cheko Mcnamara MD at OR [facility] Left: Eye BAUSCH & LOMB 09/02/2021 [id number] / [id number] / [id number] documented as of this encounter Visit Diagnoses Diagnosis Chronic heart failure with preserved ejection fraction (HCC)- Primary 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) Special screening for malignant neoplasms, colon documented in this encounter Administered Medications Inactive Administered Medications - up to 3 most recent administrations Medication Order MAR Action Action Date Dose Rate Site Furosemide (Lasix) inj 160 mg 160 mg, IV Push, ONCE, On Thu10/14/23 at 1745, For 1 dose Given 10/14/2023 5:01 PM EDT 160 mg Forea rm Right documented in this encounter Advance Directives Latest Code Status [...] and were consensually agreed upon. Care Teams Mink Farmer Relationship Specialty Start Date End Date Bárbara Rios DO [address] [place] [address] [place] [phone] PCP - General Internal Medicine 08/16/21 documented as of this encounter
--- OUTSIDE RECORDS SUMMARY | 2023-10-20 22:51 | External Medical Summary ---
Author Name Unknown Address Unknown Organization K01:[facility] - [address] [place] [address] Laboratory Report Ordering Provider Test Date Status RC ESCOBEDO 10/19/2023 12:58:23 Final Exclude Heart Failure: <300 pg/mL
Diagnose Heart Failure:
Age <50 yr: >450 pg/mL
50-75 yr: >900 pg/mL
>75 yr: >1800 pg/mL
GFR is 30-59 mL/min: >1200 pg/mL or Age- adjusted values
GFR <30 mL/min: do not use, not reliable

Prognostic threshold: 1000 pg/mL Observation Date Value Abnormality Reference (Units ) Status BNP, Pro-hormone 10/19/2023 12:58:23 326 Above high no rmal <300 (pg/mL) Final Performing Location [facility] - [address] [place] [address]
--- OUTSIDE RECORDS SUMMARY | 2023-10-20 22:51 | External Medical Summary | Summary of Care ---
Author Name Unknown Organization [facility] Address [address] [facility] [place] [address] Phone [phone] Care Team Providers Care Aircraft Hydraulic Equipment Mechanic Name Role Phone Bárbara Rios Primary Care Provider [phone] Reason for Visit * Reason Onset Date Comments Follow Up 10/19/2023 Encounter Details Date Type Department Care Team (Latest Contact Info) Description 10/19/2023 12:30 PM EDT Scheduled Telephone [facility], [facility] [address] [place] [address] Coordinator, [facility] [address] [place] [address] Chronic heart failure with preserved ejection fraction [...] DX: E11.9 300 Strip 3 09/23/2023 Active Ozclu-0-tvgv Ethyl Esters 1 GM Oral Capsule (Lovaza) [...] If no improvement on day 3, contact [facility] for a possible home visit [...] in the Comments) Remote Patient Monitoring Vendor: [facility] Device(s): Connected Scale Self - Management Plan [...] 08/18/2017 Last Assessment & Plan: Continues on [employer] 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 [employer] History of tobacco use 08/18/2017 CHAPINCITO on [...] yrs 01/04/2018,08/03/2017,07/03 Pneumococcal Conjugate Vacci ne, 20-valent ([id number]) 06/09/2022 Pneumococcal Polysaccharide PPV23 (Pneumovax) 03/06/2020 Seasonal [...] Encounter - Love Stevens RN - 10/19/2023 11:17 AM EDT Images from the original note were not included. Follow up with patient- Metolazojorge alberto 10/15. DTP started afternoon of 10/15- through weekend. See weights below. Weight increase of 2.6 lbs/[address] Mulligan [facility] Increase Torsemide to 60mg BID. Dr. Mulligan also to adjust DTP dose. Spoke with patient- reports he can breathe better but is sick in his stomach. Stomach is in knots. Has not vomited. Feels tired. Has PCP appointment tomorrow. Nephrology appointment 10/20. TT to Dr. Mulligan regarding patient report. Patient to go to lab to have blood work done. documented in this encounter Plan of Treatment Upcoming Encounters Date Type Department Care Team (Latest Contact Info) Description 10/20/2023 11:10 AM EDT Office Visit Family Medicine [address] [place] [phone] [address] R[address] [place] [address] 10/21/2023 2:40 PM EDT Office Visit Nephrology [address] [place] [address] Shivani Magallon MD 200 [facility] [place] [address] 10/27/2023 8:30 AM EDT Office Visit [facility] 132 [facility] [place] [phone] Lindsey Sheikh CRNP 132 [facility] [place] [address] 10/29/2023 11:30 AM EDT Scheduled Telephone [facility], [facility] [address] [facility] [place] [address] Mery Calderon RDN 1000 [address] [facility] [place] [address] 11/11/2023 11:00 AM EDT Telemedicine Pharmacy, [facility] [address] [place] [address] Pharmacist1, [facility] [address] [place] [address] 11/11/2023 11:30 AM EDT Telemedicine Pharmacy, [facility] [address] [place] [address] Pharmacist1, [facility] [address] [place] [address] 11/20/2023 2:30 PM EDT Home Visit [facility], [facility] [address] [place] [address] Love Stevens, ANNE MARIE [address] [place] [address] 12/31/2023 11:45 AM EDT Hospital Encounter ENDO [facility], Endoscopy Room [facility] [address] [place] [phone] José Miguel Sifuentes MD [address] [place] [address] 12/31/2023 11:45 AM EDT - 12/31/2023 12:15 PM EDT Surgery ENDO [facility], Endoscopy Room [facility] [address] [place] [phone] José Miguel Sifuentes MD [address] [place] [address] COLONOSCOPY FLEXIBLE PROXIMAL DIAGNOSTIC 01/14/2024 12:30 PM EDT Cardiac Studies Cardiac Studies [address] [place] [address] 08/08/2024 9:30 AM EST Nurse Only Ancillary [address] [place] [address] [place], Nurse [address] [place] [address] Scheduled Procedures Name Priority Associated Diagnoses Date/Ti [...] this encounter Medical Devices Implanted Type Area Aircraft Engine Cylinder Mechanic Device Identifier Shelf Expiration Date Model / Serial / Lot Lens Intraoc 21.0 - [id number] - [id number] Implanted:Qty: 1 on 01/22/2017 by Cheko Mcnamara MD at OR [facility] Right: Eye BAUSCH & LOMB 08/05/2021 [id number] / [id number] / [id number] Lens Intraoc 21.5 - [id number] - [id number] Implanted:Qty: 1 on 02/03/2017 by Cheko Mcnamara MD at OR [facility] Left: Eye BAUSCH & LOMB 09/02/2021 [id number] / [id number] / [id number] documented as of this encounter Visit Diagnoses Diagnosis Chronic heart failure with preserved ejection fraction (HCC)- Primary 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) Special screening for malignant neoplasms, colon documented in this encounter Advance Directives Latest [...] and were consensually agreed upon. Care Teams Aircraft Hydraulic Equipment Mechanic Relationship Specialty Start Date End Date Bárbara Rios DO [address] [place] [address] [place] [phone] PCP - General Internal Medicine 08/16/21 documented as of this encounter
--- OUTSIDE RECORDS SUMMARY | 2023-10-20 22:51 | External Medical Summary | Summary of Care ---
Author Name Unknown Organization [facility] Address [address] [facility] [place] [address] Phone [phone] Care Team Providers Care Nurses Supervisor Name Role Phone Bárbara Rios Primary Care Provider Reason for Visit * Reason Onset Date Comments [facility]: Maintenance 10/15/2023 Encounter Details Date Type Department Care Team (Late st Contact Info) Description 10/15/2023 1:15 PM EDT Scheduled Telephone [facility], [facility] [address] [place] [address] Coordinator, [facility] [address] [place] [address] Allergies Active Allergy Reactions Criticality Noted Date [...] 32 UNITS WITH DINNER PLUS CORRECTION PER [facility] OR DIRECTED UP TO [...] Active Evolocumab 140 MG/ML Subcutaneous Solution Auto-injector (codetagick)Indicatio ns:Dyslipidemia, goal LDL below 100,Mixed dyslipidemia Inject [...] managing provider. 60 Each 0 09/30/2023 Active Zarfk-6-pooq Ethyl Esters 1 GM Oral Capsule (Lovaza) [...] 08/18/2017 Last Assessment & Plan: Continues on anju 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 allena History of tobacco use 08/18/2017 CHAPINCITO on [...] w ith chronic diastolic congestive heart failure 01/25/2021 10/17 /2022 Need for pneumococcal vaccination 03/06/2020 05/29/2020 Severe [...] yrs 01/04/2018,08/03/2017,07/03 Pneumococcal Conjugate Vacci ne, 20-valent (Wiswcwu06) 06/09/2022 Pneumococcal Polysaccharide PPV23 (Pneumovax) 03/06/2020 Seasonal [...] encounter Miscellaneous Notes * Telephone Encounter - Parris Francis RN - 10/15/2023 3:57 PM EDT Images from the original note were not included. [facility] Telephonic Nurse Follow-Up Call [facility] Subprogram: Focused Care Management (3-9 months) Follow Up Call Type: 24 hour follow up Acute issue requiring follow-up call: Other: phone call- IV lasix 10/13 Objective: 10/14/2023 2:13 PM 10/12/2023 2:21 PM 10/09/2023 3:19 PM 09/11/2023 11:03 AM 09/04/2023 2:02 PM VITALS ACROSS ENCOUNTERS BP 138/64 122/60 132/68 132/66 118/70 Pulse 62 68 70 64 76 Remote Patient Monitoring: [facility] Scale: Oxygen Needs: NO supplemental oxygen needs identified DME Needs: NO DME needs identified Medications: Current DTP: Avoid excessive fluid intake and avoid salty, processed food Weigh daily Other: Pt received Lasix 160mg IV on 10/14/23 Subjective: Condition Status: As above noted weight loss of 2.8 lbs since yesterday. LMOM requesting return call to [facility], [phone]# provided. Current Concerns: IV lasix 10/13 Disposition: Routed to [facility] and/or [facility] at Home Care Team for further advice and Follow up call scheduled for tomorrow with MICA PATCHER Paper Processing Machine Helper Future Visits Scheduled: Future Appointments-next 60 days Date/Time Provider Specialty Dept Phone 10/20/2023 11:10 AM (Arrive by 10:55 AM) Bárbara Rios DO Family Medicine [phone] 10/21/2023 2:40 PM (Arrive by 2:25 PM) Shivani Magallon MD Nephrology [phone] 10/27/2023 8:30 AM (Arrive by 8:15 AM) Lindsey Sheikh CRNP Sleep Disorders [phone] 10/29/2023 11:30 AM Mery Calderon RDN [facility] [phone] 11/11/2023 11:00 AM Pharmacist1, [facility] [phone] 11/11/2023 11:30 AM Pharmacist1, [facility] [phone] 11/20/2023 2:30 PM Love Stevens, RN [facility] [phone] 01/14/2024 12:30 PM MANAGER MEDICARE MARKETING [facility] Cardiac Studies [phone] 08/08/2024 9:30 AM Nurse Osito Annual [facility]ness Ancillary [phone] Parris Francis, RN documented in this encounter Plan of Treatment Upcoming Encounters Date Type Department Care Team (Latest Contact Info) Description 10/16/2023 1:15 PM EDT Scheduled Telephone [facility], [facility] 132 [facility] [place] [address] Coordinator, [facility] [address] [place] [address] 10/20/2023 11:10 AM EDT Office Visit Family Medicine [address] [place] [phone] Bárbara Rios[address] [place] [address] 10/21/2023 2:40 PM EDT Office Visit Nephrology [address] [place] [address] Shivani Magallon MD [address] [place] [address] [place] [address] 10/27/2023 8:30 AM EDT Office Visit Sleep Disorders Ctr [facility] [address] [place] [phone] Lindsey Sheikh CRNP [address] [place] [address] 10/29/2023 11:30 AM EDT Scheduled Telephone [facility], [facility] [address] [facility] [place] [address] Mery Calderon, RDN 1000 [address] [facility] [place] [address] 11/11/2023 11:00 AM EDT Telemedicine Pharmacy, [facility] 200 [facility] [place] [address] Pharmacist1, [facility] 200 [facility] [address] 11/11/2023 11:30 AM EDT Telemedicine Pharmacy, [facility] 200 [facility] [place] [address] Pharmacist1, [facility] 200 [facility] [place] [address] 11/20/2023 2:30 PM EDT Home Visit [facility], [facility] 132 [place] [address] Love Stevens, ANNE MARIE [address] [place] [address] 12/31/2023 11:45 AM EDT Hospital Encounter [facility]O [facility], Endoscopy Room [facility] 132 [place] [phone] José Miguel Sifuentes MD 132 [place] [address] 12/31/2023 11:45 AM EDT - 12/31/2023 12:15 PM EDT Surgery ENDO [facility], Endoscopy Room [facility] [address] [place] [phone] José Mgiuel Sifuentes MD [address] [place] [address] COLONOSCOPY FLEXIBLE PROXIMAL DIAGNOSTIC 01/14/2024 12:30 PM EDT Cardiac Studies Cardiac Studies [address] [place] [address] 08/08/2024 9:30 AM EST Nurse Only Ancillary [address] [place] [address] [place], Nurse Annual [address] [place] [address] Scheduled Procedures Name Priority Associated Diagnoses Date/Ti [...] ASSESSMENT COMPLETED IN PAST YEAR FOR COPD 10/13/2024 10/14/2023 Arreola's Esophagus Surveilance 06/16/2025 06/16/2022, 06/16/2022, 03/20/2022, [...] this encounter Medical Devices Implanted Type Area Surface Supervisor Device Identifier Shelf Expiration Date Model / Serial / Lot Lens Intraoc 21.0 - [id number] - [id number] Implanted:Qty: 1 on 01/22/2017 by Cheko Mcnamara MD at OR [facility] Right: Eye BAUSCH & LOMB 08/05/2021 [id number] / [id number] / [id number] Lens Intraoc 21.5 - [id number] - [id number] Implanted:Qty: 1 on 02/03/2017 by Cheko Mcnamara MD at OR [facility] Left: Eye BAUSCH & LOMB 09/02/2021 [id number] / [id number] / [id number] documented as of this encounter Advance Directives [...] and were consensually agreed upon. Care Teams Nurses Supervisor Relationship Specialty Start Date End Date Bárbara Rios DO [address] [place] [address] [place] [address] PCP - General Internal Medicine 08/16/21 documented as of this encounter
--- OUTSIDE RECORDS SUMMARY | 2023-10-20 22:51 | External Medical Summary | Summary of Care ---
Author Name Unknown Organization [facility] Address [address] [facility] [place] [address] Phone [phone] Care Team Providers Care Government Affairs Researcher Name Role Phone Bárbara Rios Primary Care Provider [phone] Reason for Visit * Reason Onset Date Comments [facility]: Maintenance 10/14/2023 Encounter Details Date Type Department Care Team (Late st Contact Info) Description 10/14/2023 Telephone [facility], [facility] [address] [facility] [place] [address] [facility], Nurse [facility] [address] [facility] [place] [address] [facility]: Maintenance Allergies Active Allergy Reactions Criticality Noted Date Comments Other Allergy (See Comments) Rash Low 10/13/2022 1+ cocamidopropyl betaine Sglt2 Inhibitors Other (Please comment) High 09/04/2020 Genital infection Sulfa Antibiotics Rash 10/15/2016 documented as of this encounter (statuses as of 10/14/2023) Medications Medication Sig Dispensed Refills Start Date [...] 32 UNITS WITH DINNER PLUS CORRECTION PER [facility] OR DIRECTED UP TO 120 [...] Active Evolocumab 140 MG/ML Subcutaneous Solution Auto-injector ([employer])Indicatio ns:Dyslipidemia, goal LDL below 100,Mixed dyslipidemia Inject [...] managing provider. 60 Each 0 09/30/2023 Active Uvgjv-5-etpz Ethyl Esters 1 GM Oral Capsule (Lovaza) [...] as of this encounter (statuses as of 10/14/2023) Active Problems Problem Noted Date Diagnosed Date [...] in the Comments) Remote Patient Monitoring Vendor: [facility] Device(s): Connected Scale Self [...] 08/18/2017 Last Assessment & Plan: Continues on fanyolandasybil 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 allena History of [...] as of this encounter (statuses as of 10/14/2023) Resolved Problems Problem Noted Date Diagnosed Date [...] as of this encounter (statuses as of 10/14/2023) Immunizations Name Administration Dates Next Due COVID-19 mRNA, LNP-s, No Pre serve, 2-Dose Series (Moderna) 12/10/2020,11/12/2020 Hepatitis B, 20+ yrs 01/04/2018,08/03/2017,07/03 Pneumococcal Conjugate Vacci ne, 20-valent ([id number]) 06/09/2022 Pneumococcal Polysaccharide PPV23 (Pneumovax) 03/06/2020 Seasonal [...] encounter Miscellaneous Notes * Telephone Encounter - Emmanuel BárbaraROSCOE - 10/14/2023 12:13 PM EDT Images from the original note were not included. [facility] Remote Patient Monitoring Able to contact patient: Trigger type: Abnormal reading(s): AMC (Advanced Monitored Caregiving): Scale: Trigger priority per AMC: 294.1 Symptom review: SOB: patient states was feeling well but now co a little SOB Diet Reviewed: Yes. Patient has had any foods high in sodium: No Fluid Intake Reviewed: No, Self-Management Plan Reviewed: Red Flags: Risk assignment recommendation: Moderate risk findings (check as applicable): [x] Moderate trigger priority on AMC [] Confirmed tympanic equivalent temperature 100.4-101.9 F onehour post administration of antipyretic [x] Weight gain of 2.1-4.9 lbs over 1-2 days [] Confirmed new sustained resting HR greater than 105WITHOUT symptoms [] Weight gain of greater than or equal to 5 lbs in 5 days WITHOUT heart failure symptoms [] Confirmed new sustained resting HRT less than 60 WITHOUT symptoms [] Moderate heart failure symptoms [] Confirmed SBP less than 90 WITHOUT symptoms [] Moderate COPD symptoms [] Confirmed SBP greater than 170 WITHOUT symptoms [] Confirmed new SpO2 90-93% [] Confirmed DBP greater than 90 WITHOUT symptoms High risk findings (check as applicable): [] High trigger priority on AMC [] Confirmed tympanic equivalent temperature greater than or equal to 102 F on hour post administration of antipyretic [] Weight gain of greater than or equal to 5 lbs over 1-2 days [] Confirmed tympanic equivalent temperature less than 96 F [] Weight gain of greater than or equal to 5 lbs in 5 days WITH heart failure symptoms [] Confirmednew sustained resting HR greater than 105 WITH symptoms [] Severe heart failure symptoms [] Confirmed new sustained resting HR less than 60 WITH symptoms [] Severe COPD symptoms [] Confirmed SBP less than 90 WITH symptoms [] Confirmed new SpO2 less than 90% [] Confirmed SBP greater than 170 WITH symptoms [] Confirmed DBP greater than 90 WITH symptoms Additional risk selection justification: spoke with Tony stated he was feeling good but today is starting to feel SOB, did take meds as directed and has appointment this afternoon with Love. I toldDale I will update Love of the above before she comes to house. Overall risk and identified plan: Moderate risk: Route to RNCM (Registered Nurse Hoisting Engineer) and Advance Practitioner documented in this encounter Plan of Treatment Upcoming Encounters Date Type Department Care Team (Latest Contact Info) Description 10/14/2023 1:15 PM EDT Scheduled Telephone [facility] [address] [place] [address] Coordinator, [facility] [address] [place] [address] 10/14/2023 4:00 PM EDT Home Visit [facility] [address] [place] [address] Love Stevens RN [address] [place] [address] 10/20/2023 11:10 AM EDT Office Visit Family Medicine [address] [place] [phone] Bárbara Rios[address] [place] [address] 10/21/2023 2:40 PM EDT Office Visit Nephrology [address] [place] [address] Shivani Magallon MD [address] [place] [address] [place] [address] 10/27/2023 8:30 AM EDT Office Visit Sleep Disorders Ctr [facility] [address] [place] [phone] Lindsey Sheikh CRNP [address] [place] [address] 10/29/2023 11:30 AM EDT Scheduled Telephone [facility], [facility] [address] [facility] [place] [address] Mery Calderon, RDN [address] [facility] [place] [address] 11/11/2023 11:00 AM EDT Telemedicine Pharmacy, [facility] [address] [facility] [place] [address] Pharmacist1, [facility] [address] [facility] [place] [address] 11/11/2023 11:30 AM EDT Telemedicine Pharmacy, [facility] [address] [facility] [place] [address] Pharmacist1, [facility] [address] [facility] [place] [address] 11/20/2023 2:30 PM EDT [facility] Visit [facility], [facility] 132 [place] [address] Love Stevens, ANNE MARIE [address] [place] [address] 12/31/2023 11:45 AM EDT Hospital Encounter ENDO [facility], Endoscopy Room [facility] 132 [place] [phone] José Miguel Sifuentes MD 132 [place] [address] 12/31/2023 11:45 AM EDT - 12/31/2023 12:15 PM EDT Surgery ENDO [facility], Endoscopy Room [facility] [address] [place] [phone] José Miguel Sifuentes MD [address] [place] [address] COLONOSCOPY FLEXIBLE PROXIMAL DIAGNOSTIC 01/14/2024 12:30 PM EDT Cardiac Studies Cardiac Studies [address] [place] [address] 08/08/2024 9:30 AM EST Nurse Only Ancillary [address] [place] [address] [place], Nurse Annual [address] [place] [address] Scheduled Procedures Name Priority Associated Diagnoses Date/Ti [...] this encounter Medical Devices Implanted Type Area Social Service Liaison Device Identifier Shelf Expiration Date Model / Serial / Lot Lens Intraoc 21.0 - [id number] - [id number] Implanted:Qty: 1 on 01/22/2017 by Cheko Mcnamara MD at OR [facility] Right: Eye [employer] 08/05/2021 [id number] / [id number] / [id number] Lens Intraoc 21.5 - [id number] - [id number] Implanted:Qty: 1 on 02/03/2017 by Cheko Mcnamara MD at OR [facility] Left: Eye [employer]USCH [employer]OMB 09/02/2021 [id number] / [id number] / [id number] documented as of this encounter Advance Directives [...] and were consensually agreed upon. Care Teams Government Affairs Researcher Relationship Specialty Start Date End Date Bárbara Rios DO [address] [place] [address] [place] [address] PCP - General Internal Medicine 08/16/21 documented as of this encounter
--- OUTSIDE RECORDS SUMMARY | 2023-10-20 22:51 | External Medical Summary | Summary of Care ---
Author Name Unknown Organization [facility] Address [address] [facility] [place] [address] Phone [phone] Care Team Providers Care Steel Wool Machine Operator Name Role Phone Bárbara Rios Primary Care Provider [phone] Reason for Visit * Reason Onset Date Comments [facility]: Maintenance 10/17/2023 Encounter Details Date Type Department Care Team (Late st Contact Info) Description 10/17/2023 3:00 PM EDT Scheduled Telephone [facility], [facility] [address] [facility] [place] [address] [facility], Nurse [facility] 132 [facility] [place] [address] Allergies Active Allergy Reactions Criticality Noted Date Comments Other Allergy (See Comments) Rash Low 10/13/2022 1+ cocamidopropyl betaine Sglt2 Inhibitors Other (Please comment) High 09/04/2020 Genital infection Sulfa Antibiotics Rash 10/15/2016 documented as of this encounter (statuses as of 10/17/2023) Medications Medication Sig Dispensed Refills Start Date [...] 32 UNITS WITH DINNER PLUS CORRECTION PER [facility] OR DIRECTED UP TO 120 UNITS [...] Active Evolocumab 140 MG/ML Subcutaneous Solution Auto-injector ([email or web address])Indicatio ns:Dyslipidemia, goal LDL below 100,Mixed dyslipidemia Inject [...] managing provider. 60 Each 0 09/30/2023 Active Hkjng-3-ntpd Ethyl Esters 1 GM Oral Capsule (Lovaza) Take 2 Capsules by mouth in the morning and 2 Capsules before bedtime. 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 1 Each 0 10/16/2023 Active Hospital, Clinic, or Other Facility Administered [...] as of this encounter (statuses as of 10/17/2023) Active Problems Patient Care Coordination No te [...] swelling, Lower extremity swelling Diuretic Titration Plan: Take double the dose of Torsemide for 3 days. metOLazone (Zaroxolyn) tab 2.5 mg 2.5 mg, [...] in the Comments) Remote Patient Monitoring Vendor: [facility] Device(s): Connected Scale Self - Management Plan [...] 08/18/2017 Last Assessment & Plan: Continues on [employer] Ratnak[employer] Bankaza 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 repatha History of tobacco use 08/18/2017 [place]O on [...] as of this encounter (statuses as of 10/17/2023) Resolved Problems Problem Noted Date Diagnosed Date [...] as of this encounter (statuses as of 10/17/2023) Immunizations Name Administration Dates Next Due COVID-19 mRNA, LNP-s, No Pre serve, 2-Dose Series (Moderna) 12/10/2020,11/12/2020 Hepatitis B, 20+ yrs 01/04/2018,08/03/2017,07/03 Pneumococcal Conjugate Vacci ne, 20-valent ([id number]) 06/09/2022 Pneumococcal Polysaccharide PPV23 (Pneumovax) 03/06/2020 Seasonal [...] encounter Miscellaneous Notes * Telephone Encounter - Sherry Junior RN - 10/17/2023 4:09 PM EDT Images from the original note were not included. * Telephone Encounter - Charlene Vila RN - 10/17/2023 4:02 PM EDT Communication Note Name: Tony Delong Situation: f/u DTP Background: CHF exacerbation DTP started yesterday (yesterday's notes reviewed) T/c to pt Assessment: Breathing ''much better'' Abdomen less distended Took DTP yesterday and today as directed Aware to take tomorrow as well Recommendation: Low sodium diet 1.5L fluid restriction DTP tomorrow documented in this encounter Plan of Treatment Upcoming Encounters Date Type Department Care Team (Latest Contact Info) Description 10/18/2023 3:00 PM EDT Scheduled Telephone [facility], [facility] [address] [place] [address] [facility], Nurse [facility] [address] [facility] [place] [address] 10/20/2023 11:10 AM EDT Office Visit Family Medicine [address] [place] [phone] Bárbara Rios[address] [place] [address] 10/21/2023 2:40 PM EDT Office Visit Nephrology [address] [place] [address] Shivani Magallon MD [address] [facility] [place] [address] 10/27/2023 8:30 AM EDT Office Visit Sleep Disorders Ctr Maximil[facility] [place] [address] [facility] [place] [phone] Lindsey Sheikh CRNP 132 [facility] [place] [address] 10/29/2023 11:30 AM EDT Scheduled Telephone [facility], [facility] [address] [facility] [place] [address] Mery Calderon RDN [address] [facility] [place] [address] 11/11/2023 11:00 AM EDT Telemedicine Pharmacy, [facility] 200 [facility] [place] [address] Pharmacist1, [facility] [address] [place] [address] 11/11/2023 11:30 AM EDT Telemedicine Pharmacy, [facility] [place] [address] [facility] [place] [address] Pharmacist1, [facility] 200 [facility] [place] [address] 11/20/2023 2:30 PM EDT Home Visit [facility], [facility] [address] [place] [address] Love Stevens RN [address] [place] [address] 12/31/2023 11:45 AM EDT Hospital Encounter ENDO [facility], Endoscopy Room [facility] [address] [place] [phone] José Miguel Sifuentes MD [address] [place] [address] 12/31/2023 11:45 AM EDT - 12/31/2023 12:15 PM EDT Surgery ENDO [facility], Endoscopy Room [facility] [address] [place] [phone] José Miguel Sifuentes MD [address] [place] [address] COLONOSCOPY FLEXIBLE PROXIMAL DIAGNOSTIC 01/14/2024 12:30 PM EDT Cardiac Studies Cardiac Studies [address] [place] [address] 08/08/2024 9:30 AM EST Nurse Only Ancillary [address] [place] [address] [place], Nurse [facility] [address] [place] [address] [place] [address] Scheduled Procedures Name Priority Associated Diagnoses Date/Ti [...] this encounter Medical Devices Implanted Type Area Blurb Writer Device Identifier Shelf Expiration Date Model / Serial / Lot Lens Intraoc 21.0 - [id number] - [id number] Implanted:Qty: 1 on 01/22/2017 by Cheko Mcnamara MD at OR [facility] Right: Eye [employer]USCH [employer] LOM[employer] 08/05/2021 [id number] / [id number] / [id number] Lens Intraoc 21.5 - [id number] - [id number] Implanted:Qty: 1 on 02/03/2017 by Cheko Mcnamara MD at OR [facility] Left: Eye BAUSCH & LOMB 09/02/2021 [id number] / [id number] / [id number] documented as of this encounter Advance Directives [...] and were consensually agreed upon. Care Teams Steel Wool Machine Operator Relationship Specialty Start Date End Date Bárbara Rios DO [address] [place] [address] [place] [phone] PCP - General Internal Medicine 08/16/21 documented as of this encounter
--- OUTSIDE RECORDS SUMMARY | 2023-10-20 22:51 | External Medical Summary | Summary of Care ---
Author Name Unknown Organization [facility] Address [address] [facility] [address] Phone [phone] Care Team Providers Care Rural Mail Contractor Name Role Phone Bárbara Rios Primary Care Provider [phone] Reason for Visit * Reason Comments [facility]: Acute Encounter Details Date Type Department Care Team (Late st Contact Info) Description 10/16/2023 10:00 AM EDT [facility] Visit [facility], [facility] [address] [place] [address] Love Stevens, RN [address] [place] [address] Chronic heart failure with preserved ejection fraction [...] as of this encounter (statuses as of 10/16/2023) Medications Medication Sig Dispensed Refills Start Date [...] managing provider. 60 Each 0 09/30/2023 Active Gqybs-1-wuty Ethyl Esters 1 GM Oral Capsule (Lovaza) [...] as of this encounter (statuses as of 10/16/2023) Active Problems Patient Care Coordination No te [...] Comments) Remote Patient Monitoring Vendor: [facility] Device(s): Connected Scale Self - Management Plan [...] Continues on lovaza 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 [employer] History of tobacco use 08/18/2017 CHAPINCITO on [...] as of this encounter (statuses as of 10/16/2023) Resolved Problems Problem Noted Date Diagnosed Date [...] as of this encounter (statuses as of 10/16/2023) Immunizations Name Administration Dates Next Due COVID-19 mRNA, LNP-s, No Pre serve, 2-Dose Series (Moderna) 12/10/2020,11/12/2020 Hepatitis B, 20+ yrs 01/04/2018,08/03/2017,07/03 Pneumococcal Conjugate Vacci ne, 20-valent ([id number]) 06/09/2022 Pneumococcal Polysaccharide PPV23 (Pneumovax) 03/06/2020 Seasonal [...] Sign Reading Time Taken Comments Blood Pressure 120/62 10/16/2023 11:50 AM EDT Pulse 60 10/16/2023 11:50 AM EDT Temperature 36.3 C (97.4 F) 10/16/2023 11:50 AM E DT Respiratory Rate 18 10/16/2023 11:50 AM EDT Oxygen Saturation 96% 10/16/2023 11:50 AM EDT Inhaled Oxygen Concentration - - Weight - - Height - - Body Mass Index - - documented in this encounter Progress Notes * Love Stevens RN - 10/16/2023 11:16 AM EDT Images from the original note were not included. [facility] Visual Merchandise ManagerRn Clinical Documentation Visit Date: 10/16/2023 Time: 11:16 AM Name: Tony Delong : 1960 Current Concerns: Patient seen for acute visit- weight trigger. See below. Increase weight increase of 3.5lb/24 hours. 10/10- DTP x 3 days 10/11- IV lasix 100mg x 1 10/13- IV lasix 160mg x 1 Feeling fatigued today + abd bloating- distended Sob above baseline Lungs clear but diminished No LE edema noted VS wnl Metolazone to be used sparingly- kidney function decreased drastically in the past with repeated use- Being followed by Nephrology- Dr. Magallon, manager of sales- Christy Garcia RN TT to [facility]- Dr. Mulligan Patient to take Metolazone now(has in home) Start DTP through weekend- start with Torsemide 80mg for afternoon dose. Problems/Symptoms: Review of Systems Constitutional: Positive for fatigue. HENT: Negative. Respiratory: Positive for shortness of breath. Cardiovascular: Negative. Gastrointestinal: Positive for abdominal distention. Genitourinary: Negative. Musculoskeletal: Negative. Skin: Negative. Neurological: Negative. Hematological: Negative. Psychiatric/Behavioral: Negative. Physical Exam: BP 120/62 (BP Site: Left Arm, BP Position: Sitting, BP Cuff Size: Regular) | Pulse 60 | Temp 36.3 C (97.4 F) (Tympanic) | Resp 18 | SpO2 96% Pain 0 Physical Exam Constitutional: Appearance: Normal appearance. Cardiovascular: Rate and Rhythm: Normal rate and regular rhythm. Pulses: Normal pulses. Pulmonary: Effort: Pulmonary effort is normal. Breath sounds: Normal breath sounds. Abdominal: General: Bowel sounds are normal. Palpations: Abdomen is soft. Musculoskeletal: General: Normal range of motion. Skin: General: Skin is warm and dry. Capillary Refill: Capillary refill takes 2 to 3 seconds. Neurological: General: No focal deficit present. Mental Status: He is alert and oriented to person, place, and time. Psychiatric: Mood and Affect: Mood normal. Behavior: Behavior normal. [facility]-10 Completed this Visit: No. No falls since last visit Treatment/Plan: Start DTP this afternoon- through weekend Metolazone 2.5mg today ONLY Low na diet [facility] scales daily Fluid restriction Continue medications as prescribed Keep all upcoming MD appointments Follow up phone calls daily x 2. Home Interventions Provided: Oral Medications: Diuretic Titration Protocol Started and Other; Metolazone 2.5mg today only Consulted PCP/Specialist Reinforced current Plan of Care, including self-management and medication regimen Patient Needs to Remember: Call [facility] with any medical concerns/ red flags Referrals Needed: N/a Follow Up: Is there cellular connectivity/connectivity in the home? Yes Does the patient have internet in the home? Yes Patient encouraged to call the intake phone number for all urgent but not emergent issues. Scheduled to follow up with patient in 1 day via phone. Love Du RN 10/16/2023 11:16 AM documented in this encounter Plan of Treatment Upcoming Encounters Date Type Department Care Team (Latest Contact Info) Description 10/17/2023 3:00 PM EDT Scheduled Telephone [facility], [facility] [address] [address] [facility], Nurse [address] [place] [address] 10/18/2023 3:00 PM EDT Scheduled Telephone [facility], [facility] 132 [place] [address] [facility] Nurse [address] [place] [address] 10/20/2023 11:10 AM EDT Office Visit Family Medicine [address] [place] [phone] Bárbara Rios [address] [place] [address] 10/21/2023 2:40 PM EDT Office Visit Nephrology [address] [place] [address] Shivani Magallon MD 200 [facility] [place] [address] 10/27/2023 8:30 AM EDT Office Visit Sleep Disorders Ctr [facility] 132 [facility] [place] [phone] Lindsey Sheikh CRNP 132 [facility] [place] [address] 10/29/2023 11:30 AM EDT Scheduled Telephone [facility], [facility] [address] [place] [address] Mery Calderon RDN [address] [place] [address] 11/11/2023 11:00 AM EDT Telemedicine Pharmacy, [facility] 200 [facility] [place] [address] Pharmacist1, [facility] 200 [facility] [place] [address] 11/11/2023 11:30 AM EDT Telemedicine Pharmacy, [facility] [place] 200 [facility] [place] [address] Pharmacist1, [facility] Sp 200 [facility] [place] [address] 11/20/2023 2:30 PM EDT Home Visit [facility], [facility] 132 [place] [address] Love Stevens, RN [address] [place] [address] 12/31/2023 11:45 AM EDT Hospital Encounter ENDO [facility], Endoscopy Room [facility] [address] [place] [phone] José Miguel Sifuentes MD [address] [place] [address] 12/31/2023 11:45 AM EDT - 12/31/2023 12:15 PM EDT Surgery ENDO [facility], Endoscopy Room [facility] [address] [place] [phone] José Miguel Sifuentes MD [address] [place] [address] COLONOSCOPY FLEXIBLE PROXIMAL DIAGNOSTIC 01/14/2024 12:30 PM EDT Cardiac Studies Cardiac Studies [address] [place] [address] 08/08/2024 9:30 AM EST Nurse Only Ancillary [address] [place] [address] [place], Nurse Annual [address] [place] [address] Scheduled Procedures Name Priority Associated Diagnoses Date/Ti [...] this encounter Medical Devices Implanted Type Area Place Change Roof Bolter Device Identifier Shelf Expiration Date Model / Serial / Lot Lens Intraoc 21.0 - [id number] - [id number] Implanted:Qty: 1 on 01/22/2017 by Cheko Mcnamara MD at OR [facility] Right: Eye [employer]OMB 08/05/2021 [id number] / [id number] / [id number] Lens Intraoc 21.5 - [id number] - [id number] Implanted:Qty: 1 on 02/03/2017 by Cheko Mcnamara MD at OR [facility] Left: Eye BAUSCH [employer] LOMB 09/02/2021 [id number] / [id number] / [id number] documented as of this encounter Visit Diagnoses Diagnosis Chronic heart failure with preserved ejection fraction (HCC)- Primary 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) Special screening for malignant neoplasms, colon documented in this encounter Administered Medications Active Administered Medications - up to 3 most recent administrations Medication Order MAR Action Action Date Dose Rate Site metOLazone (Zaroxolyn) tab 2.5 mg 2.5 mg, Oral, ONCE, On Thu10/16/23 at 1800, For 1 dose documented in this encounter Advance Directives Latest [...] and were consensually agreed upon. Care Teams Rural Mail Contractor Relationship Specialty Start Date End Date Bárbara Rios DO [address] [place] [address] [place] [address] PCP - General Internal Medicine 08/16/21 documented as of this encounter
--- OUTSIDE RECORDS SUMMARY | 2023-10-20 22:51 | External Medical Summary | Summary of Care ---
Author Name Unknown Organization [facility] Address [address] [facility] [place] [address] Phone [phone] Care Team Providers Care Raisin Separator Operator Name Role Phone Bárbara Rios Primary Care Provider [phone] Reason for Visit * Reason Comments Outpatient Testing Encounter Details Date Type Department Care Team (Late st Contact Info) Description 10/19/2023 1:10 PM EDT Laboratory Laboratory [address] [place] [phone] [facility] [address] [place] [address] Chronic heart failure with preserved ejection fraction (HCC); Hypertensive heart and kidney disease with chronic [...] 32 UNITS WITH DINNER PLUS CORRECTION PER [facility] OR DIRECTED UP TO 120 [...] DX: E11.9 300 Strip 3 09/23/2023 Active Eopbn-3-rlry Ethyl Esters 1 GM Oral Capsule (Lovaza) [...] If no improvement on day 3, contact [facility] for a possible home visit 1 [...] in the Comments) Remote Patient Monitoring Vendor: [facility] Device(s): Connected Scale Self - Management Plan [...] Continues on lovaza 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 [employer] History of tobacco use 08/18/2017 CHAPINCITO on [...] has been better controlled recently. Monitor using [employer] Cindy. NEMESIO (acute kidney injury) 04/30/2022 Severe [...] yrs 01/04/2018,08/03/2017,07/03 Pneumococcal Conjugate Vacci ne, 20-valent ([id number]) 06/09/2022 Pneumococcal Polysaccharide PPV23 (Pneumovax) 03/06/2020 Seasonal [...] on file documented as of this encounter Plan of Treatment Upcoming Encounters Date Type Department Care Team (Latest Contact Info) Description 10/20/2023 11:10 AM EDT Office Visit Family Medicine [facility] [address] [place] [phone] Bárbara Rios [address] [place] [address] 10/21/2023 2:40 PM EDT Office Visit Nephrology [address] [place] [address] Shivani Magallon MD 200 [facility] [place] [address] 10/27/2023 8:30 AM EDT Office Visit Sleep Disorders Ctr [facility] [address] [place] [phone] Lindsey Sheikh CRNP [address] [place] [address] 10/29/2023 11:30 AM EDT Scheduled Telephone [facility], [facility] [address] [place] [facility] [place] [address] Mery Calderon RDN [address] [place] [facility] [place] [address] 11/11/2023 11:00 AM EDT Telemedicine Pharmacy, [facility] 200 [facility] [place] [address] Pharmacist1, [facility] Sp 200 [facility] [place] [address] 11/11/2023 11:30 AM EDT Telemedicine Pharmacy, [facility] [address] [place] [address] Pharmacist1, [facility] Sp [address] [place] [address] 11/20/2023 2:30 PM EDT Home Visit [facility], [facility] [address] [place] [address] Love Stevens, RN [address] [place] [address] 12/31/2023 11:45 AM EDT Hospital Encounter ENDO [facility], Endoscopy Room [facility] [address] [place] [phone] José Miguel Sifuentes MD [address] [place] [address] 12/31/2023 11:45 AM EDT - 12/31/2023 12:15 PM EDT Surgery ENDO [facility], Endoscopy Room [facility] [address] [place] [phone] José Miguel Sifuentes MD [address] [place] [address] COLONOSCOPY FLEXIBLE PROXIMAL DIAGNOSTIC 01/14/2024 12:30 PM EDT Cardiac Studies Cardiac Studies [address] [place] [address] 08/08/2024 9:30 AM EST Nurse Only Ancillary [address] [place] [address] [place], Nurse [address] [place] [address] Pending Results Name Type Priority Associated Diagnoses Date /Time BASIC METABOLIC PANEL Lab Routine Chronic heart failure with preserved ejection fraction (HCC) 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) 10/19/2023 12:58 PM EDT BNP, NT-PRO Lab Routine Chronic heart failure with preserved ejection fraction (HCC) 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) 10/19/2023 12:58 PM EDT CBC Lab Routine Chronic heart failure with preserved ejection fraction (HCC) 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) 10/19/2023 12:58 PM EDT Scheduled Procedures Name Priority Associated Diagnoses Date/Ti [...] this encounter Medical Devices Implanted Type Area Sales Service Route Manager Device Identifier Shelf Expiration Date Model / Serial / Lot Lens Intraoc 21.0 - [id number] - [id number] Implanted:Qty: 1 on 01/22/2017 by Cheko Mcnamara MD at OR [facility] Right: Eye [employer]CH [employer] LOMB 08/05/2021 [id number] / [id number] / [id number] Lens Intraoc 21.5 - [id number] - [id number] Implanted:Qty: 1 on 02/03/2017 by Cheko Mcnamara MD at OR [facility] Left: Eye BAUSCH [employer] LOMB 09/02/2021 [id number] / [id number] / [id number] documented as of this encounter Visit Diagnoses Diagnosis Chronic heart failure with preserved ejection fraction (HCC) Hypertensive heart and kidney disease with chronic [...] and were consensually agreed upon. Care Teams Raisin Separator Operator Relationship Specialty Start Date End Date Bárbara Rios DO [address] [place] [address] [place] [address] PCP - General Internal Medicine 08/16/21 documented as of this encounter
--- OUTSIDE RECORDS SUMMARY | 2023-10-20 22:51 | External Medical Summary | Summary of Care ---
Author Name Unknown Organization [facility] Address [address] [facility] [place] [address] Phone [phone] Care Team Providers Care Jawbone Breaker Name Role Phone Bárbara Rios Primary Care Provider [phone] Reason for Visit * Reason Onset Date Comments [facility]: Maintenance 10/16/2023 Encounter Details Date Type Department Care Team (Late st Contact Info) Description 10/16/2023 Telephone [facility], [facility] [address] [facility] [place] [address] [facility], Nurse [facility] [address] [facility] [place] [address] [facility]: Maintenance Allergies Active Allergy [...] 32 UNITS WITH DINNER PLUS CORRECTION PER [facility] OR DIRECTED UP TO [...] Active Evolocumab 140 MG/ML Subcutaneous Solution Auto-injector (Buttercoin)Indicatio ns:Dyslipidemia, goal LDL below 100,Mixed dyslipidemia Inject [...] managing provider. 60 Each 0 09/30/2023 Active Ikanm-5-hnzw Ethyl Esters 1 GM Oral Capsule (Lovaza) [...] in the Comments) Remote Patient Monitoring Vendor: [facility] Device(s): Connected Scale Self - Management Plan [...] 08/18/2017 Last Assessment & Plan: Continues on F[employer]avsa 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 repatha History of [...] yrs 01/04/2018,08/03/2017,07/03 Pneumococcal Conjugate Vacci ne, 20-valent ([id number]) 06/09/2022 Pneumococcal Polysaccharide PPV23 (Pneumovax) 03/06/2020 Seasonal [...] Telephone Encounter - Alexandra Mcgraw LPN - 10/16/2023 10:02 AM EDT Images from the original note were not included. [facility] trigger for weight increase of 3.5 in 1 day Review of chart pt has [facility] today TT to RNCM to make aware No call placed to pt documented in this encounter Plan of Treatment Upcoming Encounters Date Type Department Care Team (Latest Contact Info) Description 10/16/2023 1:15 PM EDT Scheduled Telephone [facility], [facility] 132 [facility] [place] [address] Coordinator, [facility] [address] [facility] [place] [address] 10/17/2023 3:00 PM EDT Scheduled Telephone [facility], [address] [place] [address] [facility], Nurse [address] [place] [address] 10/18/2023 3:00 PM EDT Scheduled Telephone [facility], [facility] 132 [facility] [place] [address] [facility], Nurse [facility] 132 [facility] [place] [address] 10/20/2023 11:10 AM EDT Office Visit Family Medicine [address] [place] [address] Bárbara Rios[address] [place] [address] 10/21/2023 2:40 PM EDT Office Visit Nephrology [address] [place] [address] Shivani Magallon MD 200 [facility] [place] [address] 10/27/2023 8:30 AM EDT Office Visit Sleep Disorders Ctr [facility] 132 [facility] [place] [phone] Lindsey Sheikh CRNP 132 [facility] [place] [address] 10/29/2023 11:30 AM EDT Scheduled Telephone [facility], [facility] [address] [facility] [place] [address] Mery Calderon RDN 1000 [address] [facility] [place] [address] 11/11/2023 11:00 AM EDT Telemedicine Pharmacy, [facility] [address] [place] [address] Pharmacist1, [facility] Sp [address] [place] [address] 11/11/2023 11:30 AM EDT Telemedicine Pharmacy, [facility] [place] [address] [place] [address] Pharmacist1, [facility] Sp [address] [place] [address] 11/20/2023 2:30 PM EDT Home Visit [facility], [facility] [address] [place] [address] Love Stevens, ANNE MARIE [address] [place] [address] 12/31/2023 11:45 AM EDT Hospital Encounter [facility]O [facility], [facility] Room [facility] [address] [place] [phone] José Miguel Sifuentes MD [address] [place] [address] 12/31/2023 11:45 AM EDT - 12/31/2023 12:15 PM EDT Surgery ENDO [facility], [facility]oscopy Room [facility] [address] [place] [phone] José Miguel Sifuentes MD [address] [place] [address] COLONOSCOPY FLEXIBLE PROXIMAL DIAGNOSTIC 01/14/2024 12:30 PM EDT Cardiac Studies Cardiac Studies [address] [place] [address] 08/08/2024 9:30 AM EST Nurse Only Ancillary [address] [place] [address] [place], Nurse [address] [place] [address] Scheduled Procedures Name Priority Associated Diagnoses Date/Ti [...] this encounter Medical Devices Implanted Type Area Drosophere Operator Device Identifier Shelf Expiration Date Model / Serial / Lot Lens Intraoc 21.0 - [id number] - [id number] Implanted:Qty: 1 on 01/22/2017 by Cheko Mcnamara MD at OR [facility] Right: Eye [employer] LOMB 08/05/2021 [id number] / [id number] / [id number] Lens Intraoc 21.5 - [id number] - [id number] Implanted:Qty: 1 on 02/03/2017 by Cheko Mcnamara MD at OR [facility] Left: Eye BAUSCH & LOMB 09/02/2021 [id number] / [id number] / [id number] documented as of this encounter Advance Directives [...] and were consensually agreed upon. Care Teams Jawbone Breaker Relationship Specialty Start Date End Date Bárbara Rios DO [address] [place] [address] [place] [id number] PCP - General Internal Medicine 08/16/21 documented as of this encounter
--- OUTSIDE RECORDS SUMMARY | 2023-10-20 22:51 | External Medical Summary | Summary of Care ---
Author Name Unknown Organization [facility] Address [address] [facility] [place] [address] Phone [phone] Care Team Providers Care Plant Taxonomist Name Role Phone Bárbara Rios Primary Care Provider [phone] Encounter Details Date Type Department Care Team (Late st Contact Info) Description 10/12/2023 Orders Only [facility], [facility] [address] [place] [address] Wilfredo Mulligan DO [address] [place] [address] 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)*; Hypertensive 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 (HCC) Allergies Active Allergy [...] 5,000 Units daily . 30 Cap 5 2 Active Aspirin 81 MG TabletIndications :takes in the evening Take 1 Tablet by mouth in the morning. 0 Active B Complex Capsule Take 1 Cap by mouth daily. 0 Active acetaminophen (TYLENOL) 500 MG TabletIndications :Acute left-sided low back pain with left-sided sciatica Take 1 Tablet by mouth every 6 hours as needed for Pain, Moderate. 100 Tab 0 2 Active CoQ10 100 MG Oral CapsuleIndication s:takes in the evening Take 200 mg by mouth in the morning. Patient takes at night. 0 Active CPAP every night at bedtime. 0 Active OneTouch Delica Lancets 33G Use 3 times daily - E11.9 300 Each 3 2 Active Additional Information Patient taking differently:, Use 3 times daily - E11.9,Indications: diabetes, Reported on 07/14/2022 FreeStyle Cindy 2 SensorIndications :Type 2 diabetes mellitus with hemoglobin A1c goal of less than 7.0% (HCC) Use as directed every 14 days . 6 Each 3 2 Active Metamucil 28.3 % Oral Powder (Psyllium) Take by mouth 2 times a day. 0 Active Clindamycin Phosphate 1 % External GelIndications:Fo lliculitis Apply 2x daily to spots on scalp/neck until resolved, then when flaring 60 g 2 2 Active Tresiba FlexTouch 200 UNIT/ML Subcutaneous Solution Pen-injectorIndic ations:Type 2 diabetes mellitus with hemoglobin A1c goal of less than 7.0% (HCC) INJECT UNDER THE SKIN 100 UNITS TWICE DAILY OR DIRECTED 90 mL 3 3 12/18/19 24 Active NovoLOG FlexPen 100 UNIT/ML Subcutaneous Solution Pen-injectorIndic ations:Type 2 diabetes mellitus with hemoglobin A1c goal of less than 7.0% (HCC) INJECT UNDER THE SKIN 26 UNITS AT BREAKFAST, 26 UNITS AT LUNCH, 32 UNITS WITH DINNER PLUS CORRECTION PER [facility] OR DIRECTED UP TO 120 UNITS PER DAY 120 mL 3 3 12/18/19 24 Active metOLazone 2.5 MG Oral Tablet (Zaroxolyn) ON HOLD as of 01/21. Take 1 tablet by mouth on twice a week on non-consecutive days, 30 minutes prior to torsemide. 30 Tablet 0 3 Active BD Pen Needle Short U/F 31G X 8 MM (Insulin Pen Needle)Indication s:Type 2 diabetes mellitus with hemoglobin A1c goal of less than 7.0% (HCC) USE TO INJECT INSULINS 5 TIMES DAILY 500 Each 3 3 Active Semaglutide (2 MG/DOSE) 8 MG/3ML Subcutaneous Solution Pen-injector (Ozempic)Indicati ons:Type 2 diabetes mellitus with hemoglobin A1c goal of less than 8.0% (HCC) Inject 2 mg under the skin once a week. 9 mL 3 3 Active Carvedilol 25 MG Oral Tablet (Coreg)Indication s:HTN, goal below 140/90 TAKE ONE TABLET BY MOUTH EVERY MORNING AND TAKE ONE TABLET BY MOUTH BEFORE BEDTIME 200 Tablet 3 3 04/18/20 24 Active Omeprazole 20 MG Oral Capsule Delayed Release (PriLOSEC) TAKE 1 CAPSULE BY MOUTH IN THE MORNING AND 1 CAPSULE BEFORE BEDTIME 30 MINUTES BEFORE A MEAL 180 Capsule 1 3 04/27/20 24 Active Evolocumab 140 MG/ML Subcutaneous Solution Auto-injector (Repatha SureClick)Indicat ions:Dyslipidemia , goal LDL below 100,Mixed dyslipidemia Inject 140 mg under the skin every 14 days. 6 mL 3 3 Active hydrALAZINE HCl 25 MG Oral Tablet (Apresoline)Indic ations:HTN, goal below 140/90 Take 1 Tablet by mouth in the morning and 1 Tablet at noon and 1 Tablet before bedtime. 300 Tablet 3 4 Active Lisinopril 20 MG Oral Tablet (Prinivil) Take 1 Tablet by mouth in the morning. 100 Tablet 3 4 Active Clotrimazole-Beta methasone 1-0.05 % External Cream (Lotrisone) APPLY TOPICALLY TO AFFECTED AREA(S) TWO TIMES A DAY. 90 g 1 4 08/26/19 25 Active Potassium Chloride Gaviota ER 10 MEQ Oral Tablet Extended ReleaseIndication s: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) Take 1 Tablet by mouth in the morning and 1 Tablet before bedtime. 180 Tablet 3 4 Active OneTouch Verio In Vitro Strip (Glucose Blood)Indications :Uncontrolled type 2 diabetes mellitus with hyperglycemia (HCC) USE TO TEST BLOOD GLUCOSE 3 TIMES A DAY. DX: E11.9 300 Strip 3 4 Active Aihmq-2-zthi Ethyl Esters 1 GM Oral Capsule (Lovaza) Take 2 Capsules by mouth in the morning and 2 Capsules before bedtime. 360 Capsule 1 4 Active Torsemide 20 MG Oral Tablet (Demadex)Indicati ons:Hypertensive 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 (HCC) Take 3 Tablets by mouth in the morning and 3 Tablets in the evening. 180 Tablet 3 4 Active Torsemide 20 MG Oral Tablet (Demadex)Indicati ons:Hypertensive 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 (HCC) 40mg in the morning and 40mg in the afternoon. 180 Tablet 3 4 10/19/19 24 Discontinued(Re fill) DIURETIC TITRATION PLAN If no improvement on day 3, contact heart failure managing provider. 60 Each 0 4 10/19/19 24 Discontinued Hospital, Clinic, or Other Facility Administered Medication Ordered Dose Route Frequency Start Date End Date Status Albuterol Sulfate (Proventil) (5 MG/ML) 0.5% *conc* inhalation solution 2.5 mgIndications:Dyspnea and respiratory abnormalities 2.5 mg NEBULIZER PRN 11/20/2022 11/20/2023 Active Albuterol Sulfate (Proventil) (2.5 MG/3ML) 0.083% inhalation solution 2.5 mgIndications:Dyspnea and respiratory abnormalities 2.5 mg NEBULIZER PRN 11/20/2022 11/20/2023 Active Furosemide (Lasix) inj 160 mgIndications:Hypertens slim 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 chronic kidney disease (HCC) 160 mg IV PUSH ONCE 10/12/2023 10/13/2023 Ended documented as of this encounter (statuses as [...] in the Comments) Remote Patient Monitoring Vendor: [facility] Device(s): Connected Scale [...] Continues on lovaza 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 [employer] History of tobacco use 08/18/2017 CHAPINCITO on [...] yrs 01/04/2018,08/03/2017,07/03 Pneumococcal Conjugate Vacci ne, 20-valent ([id number]) 06/09/2022 Pneumococcal Polysaccharide PPV23 (Pneumovax) 03/06/2020 Seasonal [...] on file documented as of this encounter Progress Notes * Wilfredo Mulligan DO - 10/12/2023 2:50 PM EDT Treatment Medications Furosemide (Lasix) inj 160 mg [...] the dose of Torsemide for 3 days. Labs CBC Every visit Comprehensive Metabolic Panel Every visit BNP (NT-proBNP) Every visit Imaging XR Chest 2 Views Every visit What is the Reason for Study? shortness of breath Where is this test being performed? Mobile documented in this encounter Plan of Treatment Upcoming Encounters Date Type Department Care Team (Latest Contact Info) Description 10/19/2023 12:30 PM EDT Scheduled Telephone [facility], [facility] [address] [place] [address] Coordinator, [facility] [address] [place] [address] 10/20/2023 11:10 AM EDT Office Visit Family Medicine [address] [place] [phone] Bárbara Rios[address] [place] [address] 10/21/2023 2:40 PM EDT Office Visit Nephrology [address] [place] [address] Shivani Magallon MD 200 [facility] [place] [address] 10/27/2023 8:30 AM EDT Office Visit Sleep Disorders Ctr [facility] [place] [address] [place] [phone] Lindsey Sheikh CRNP [address] [place] [address] 10/29/2023 11:30 AM EDT Scheduled Telephone [facility], [facility] [address] [facility] [place], [place] [address] Mery Calderon, RDN [address] [place] [facility] [place] [address] 11/11/2023 11:00 AM EDT Telemedicine Pharmacy, [facility] [address] Pharmacist1, [facility] 200 [facility] [place] [address] 11/11/2023 11:30 AM EDT Telemedicine Pharmacy, [facility] [address] Pharmacist1, [facility] 200 [facility] [place] [address] 11/20/2023 2:30 PM EDT Home Visit [facility], [facility] [address] [place] [address] Love Stevens RN [address] [place] [address] 12/31/2023 11:45 AM EDT Hospital Encounter ENDO [facility], Endoscopy Room [facility] [address] [place] [address] José Miguel Sifuentes MD [address] [place] [address] 12/31/2023 11:45 AM EDT - 12/31/2023 12:15 PM EDT Surgery ENDO [facility], Endoscopy Room [facility] [address] [place] [address] José Miguel Sifuentes MD [address] [place] [address] COLONOSCOPY FLEXIBLE PROXIMAL DIAGNOSTIC 01/14/2024 12:30 PM EDT Cardiac Studies Cardiac Studies [address] [place] [address] 08/08/2024 9:30 AM EST Nurse Only Ancillary [address] [place] [address] [place], Nurse Annual [address] [place] [address] Scheduled Procedures Name Priority Associated Diagnoses Date/Ti [...] this encounter Medical Devices Implanted Type Area Motor Vehicle Field Representative Device Identifier Shelf Expiration Date Model / Serial / Lot Lens Intraoc 21.0 - [id number] - [id number] Implanted:Qty: 1 on 01/22/2017 by Cheko Mcnamara MD at OR [facility] Right: Eye [employer] 08/05/2021 [id number] / [id number] / [id number] Lens Intraoc 21.5 - [id number] - [id number] Implanted:Qty: 1 on 02/03/2017 by Cheko Mcnamara MD at OR [facility] Left: Eye [employer]OM[employer] 09/02/2021 [id number] / [id number] / [id number] documented as of this encounter Visit Diagnoses Diagnosis 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)- Primary Hypertensive 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 (HCC) Special screening for [...] and were consensually agreed upon. Care Teams Plant Taxonomist Relationship Specialty Start Date End Date Bárbara Rios DO [address] [place] [address] [place] [address] PCP - General Internal Medicine 08/16/21 documented as of this encounter
--- OUTSIDE RECORDS SUMMARY | 2023-10-20 22:51 | External Medical Summary ---
Author Name Unknown Address Unknown Organization K01:[facility] - [facility] [address] [place] [address] Laboratory Report Ordering Provider Test Date Status RC ESCOBEDO 10/19/2023 12:58:23 Final Observation Date Value Abnormality Reference (Units ) Status WBC, Total 10/19/2023 12:58:23 8.27 4.00-10.80 (K/uL) Final RBC 10/19/2023 12:58:23 4.69 4.50-5.25 (M/uL) Final Hemoglobin 10/19/2023 12:58:23 13.8 Below low normal 14.0-16.8 (g/dL) Final HCT 10/19/2023 12:58:23 41.4 40.0-48.4 (%) Final MCV 10/19/2023 12:58:23 88.3 82.0-99.5 (fL) Final MCH 10/19/2023 12:58:23 29.4 27.0-34.0 (pg) Final MCHC 10/19/2023 12:58:23 33.3 32.0-36.0 (g/dL) Final RDW 10/19/2023 12:58:23 14.2 11.5-15.5 (%) Final Platelets 10/19/2023 12:58:23 168 140-400 (K/uL) Final MPV 10/19/2023 12:58:23 12.0 6.6-11.1 (fL) Final Nucleated erythrocytes/100 leukocytes [Ratio] in Blood by Automated count 10/19/2023 12:58:23 0 <=0 (/100 WBCs) Final Performing Location [facility] - [address] [place] [address]
--- OUTSIDE RECORDS SUMMARY | 2023-10-20 22:51 | External Medical Summary | Summary of Care ---
Author Name Unknown Organization [facility] Address [address] [facility] [place] [address] Phone [phone] Care Team Providers Care Registered Medical Assistant Name Role Phone Bárbara Rios Primary Care Provider [phone] Reason for Visit * Reason Onset Date Comments [facility]: Acute 10/18/2023 Encounter Details Date Type Department Care Team (Late st Contact Info) Description 10/18/2023 3:00 PM EDT Scheduled Telephone [facility], [facility] 132 [facility] [place] [address] [facility], Nurse [facility] 132 [facility] [place] [address] Allergies Active Allergy Reactions Criticality Noted Date Comments Other Allergy (See Comments) Rash Low 10/13/2022 1+ cocamidopropyl betaine Sglt2 Inhibitors Other (Please comment) High 09/04/2020 Genital infection Sulfa Antibiotics Rash 10/15/2016 documented as of this encounter (statuses as of 10/18/2023) Medications Medication Sig Dispensed Refills Start Date [...] 32 UNITS WITH DINNER PLUS CORRECTION PER [facility] OR DIRECTED UP TO 120 [...] Active Evolocumab 140 MG/ML Subcutaneous Solution Auto-injector ([employer])Indicatio ns:Dyslipidemia, goal LDL below 100,Mixed dyslipidemia Inject [...] managing provider. 60 Each 0 09/30/2023 Active Efvtb-7-ovaq Ethyl Esters 1 GM Oral Capsule (Lovaza) [...] as of this encounter (statuses as of 10/18/2023) Active Problems Patient Care Coordination No te [...] in the Comments) Remote Patient Monitoring Vendor: [facility] Device(s): Connected Scale Self - Management Plan [...] 08/18/2017 Last Assessment & Plan: Continues on [employer] 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 repatha History of [...] as of this encounter (statuses as of 10/18/2023) Resolved Problems Problem Noted Date Diagnosed Date [...] as of this encounter (statuses as of 10/18/2023) Immunizations Name Administration Dates Next Due COVID-19 mRNA, LNP-s, No Pre serve, 2-Dose Series (Moderna) 12/10/2020,11/12/2020 Hepatitis B, 20+ yrs 01/04/2018,08/03/2017,07/03 Pneumococcal Conjugate Vacci ne, 20-valent ([id number]) 06/09/2022 Pneumococcal Polysaccharide PPV23 (Pneumovax) 03/06/2020 Seasonal [...] 8:36 AM EDT Sexual Orientation Straight 12/06/2018 8 :36 AM EDT Job Start Date Occupation Industry Not on file Not on file Not on file documented as of this encounter Miscellaneous Notes * Telephone Encounter - Taryn Raymond RN - 10/18/2023 4:04 PM EDT Pc scheduled for weight trigger. Per [facility] review, weight on 10/15 increased to 294.8lb. Pt was seen for acute visit and instructed to take metolazone. Per [facility], Weight today of 286.7lb. PC placed. Pt identified by name/. He reports his breathing is great and his abd bloating feels much better. He does report however that he feels fatigued today, similarly to when he has taken metolazone in the past and it "hit" his kidneys. He declines need for visit and reports he has PCP appt10/19 and plans to get labs then. Encouraged rest and adequate hydration. Pt also instructed to call [facility] for worsening s/s. Pt voicesunderstanding. 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 documented in this encounter Plan of Treatment Upcoming Encounters Date Type Department Care Team (Latest Contact Info) Description 10/19/2023 12:30 PM EDT Scheduled Telephone [facility], [facility] [address] [place] [address] Coordinator, [facility] [address] [place] [address] 10/20/2023 11:10 AM EDT Office Visit Family Medicine [address] [place] [phone] Bárbara Rios[address] [place] [address] 10/21/2023 2:40 PM EDT Office Visit Nephrology [address] [place] [address] Shivani Magallon MD 200 [facility] [place] [address] 10/27/2023 8:30 AM EDT Office Visit Sleep Disorders Ctr [facility] [address] [place] [phone] Lindsey Sheikh CRNP 132 [facility] [place] [address] 10/29/2023 11:30 AM EDT Scheduled Telephone [facility], [facility] [address] [place] [address] Mery Calderon RDN [address] [facility] [place] [address] 11/11/2023 11:00 AM EDT Telemedicine Pharmacy, [facility] [address] [place] [address] Pharmacist1, [facility] [address] [place] [address] 11/11/2023 11:30 AM EDT Telemedicine Pharmacy, [facility] [address] [place] [address] Pharmacist1, [facility] [address] [place] [address] 11/20/2023 2:30 PM EDT Home Visit [facility], [facility] [address] [place] [address] Love Stevens RN [address] [place] [address] 12/31/2023 11:45 AM EDT Hospital Encounter ENDO OSSC, Endoscopy Room [facility] [address] [place] [phone] José Miguel Sifuentes MD [address] [place] [address] 12/31/2023 11:45 AM EDT - 12/31/2023 12:15 PM EDT Surgery ENDO [facility], Endoscopy Room [facility] [address] [place] [phone] José Miguel Sifuentes MD [address] [place] [address] COLONOSCOPY FLEXIBLE PROXIMAL DIAGNOSTIC 01/14/2024 12:30 PM EDT Cardiac Studies Cardiac Studies [address] [place] [address] 08/08/2024 9:30 AM EST Nurse Only Ancillary [address] [place] [address] [place], Nurse [address] [place] [address] Scheduled Procedures Name Priority Associated Diagnoses Date/Ti [...] this encounter Medical Devices Implanted Type Area Application Support Intern Device Identifier Shelf Expiration Date Model / Serial / Lot Lens Intraoc 21.0 - [id number] - [id number] Implanted:Qty: 1 on 01/22/2017 by Cheko Mcnamara MD at OR [facility] Right: Eye [employer] 08/05/2021 [id number] / [id number] / [id number] Lens Intraoc 21.5 - [id number] - [id number] Implanted:Qty: 1 on 02/03/2017 by Cheko Mcnamara MD at OR [facility] Left: Eye [employer]OM[employer] 09/02/2021 [id number] / [id number] / [id number] documented as of this encounter Advance Directives [...] and were consensually agreed upon. Care Teams Registered Medical Assistant Relationship Specialty Start Date End Date Bárbara Rios DO [address] [place] [address] [place] [phone] PCP - General Internal Medicine 08/16/21 documented as of this encounter
--- OUTSIDE RECORDS SUMMARY | 2023-10-20 22:51 | External Medical Summary | Summary of Care ---
Author Name Unknown Organization [facility] Address [address] [facility] [place] [address] Phone [phone] Care Team Providers Care Radio Maintainer Name Role Phone Bárbara Rios Primary Care Provider [phone] Reason for Visit * Reason Onset Date Comments [facility]: Maintenance 10/16/2023 Encounter Details Date Type Department Care Team (Late st Contact Info) Description 10/16/2023 1:15 PM EDT Scheduled Telephone [facility], [facility] [address] [place] [address] Coordinator, [facility] [address] [place] [address] Allergies Active Allergy Reactions Criticality Noted Date [...] 32 UNITS WITH DINNER PLUS CORRECTION PER [facility] OR DIRECTED UP TO 120 [...] Active Evolocumab 140 MG/ML Subcutaneous Solution Auto-injector (Zoomoramaick)Indicatio ns:Dyslipidemia, goal LDL below 100,Mixed dyslipidemia Inject [...] managing provider. 60 Each 0 09/30/2023 Active Quwdh-7-bvsj Ethyl Esters 1 GM Oral Capsule (Lovaza) [...] in the Comments) Remote Patient Monitoring Vendor: [facility] [place] Device(s): Connected Scale Self [...] 08/18/2017 Last Assessment & Plan: Continues on Tigerstripeaza 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 repatha History of [...] yrs 01/04/2018,08/03/2017,07/03 Pneumococcal Conjugate Vacci ne, 20-valent ([id number]) 06/09/2022 Pneumococcal Polysaccharide PPV23 (Pneumovax) 03/06/2020 Seasonal [...] encounter Miscellaneous Notes * Telephone Encounter - Jaja Benedict RN - 10/16/2023 9:18 AM EDT [facility] Telephonic Nurse Follow-Up Call [facility] Subprogram: Focused Care Management (3-9 months) Follow Up Call Type: 48 hour follow up Acute issue requiring follow-up call: Heart Failure Exacerbation Objective: 10/14/2023 2:13 PM 10/12/2023 2:21 PM 10/09/2023 3:19 PM 09/11/2023 11:03 AM 09/04/2023 2:02 PM VITALS ACROSS ENCOUNTERS BP 138/64 122/60 132/68 132/66 118/70 Pulse 62 68 70 64 76 Remote Patient Monitoring: AMC Scale: see below Oxygen Needs: NO supplemental oxygen needs identified DME Needs: NO DME needs identifieds Medications: Current DTP: Other: s/p IV lasix Subjective: Condition Status: wt gain Current Concerns: Patient on for acute HV today with RNCM. Will place for weekend phone calls. Disposition: Weekend call scheduled and RNCM visit scheduled Future Visits Scheduled: Future Appointments-next 60 days Date/Time Provider Specialty Dept Phone 10/16/2023 10:00 AM Love Stevens RN [facility] [phone] 10/16/2023 1:15 PM Coordinator, Morales Aldana [facility] [phone] 10/20/2023 11:10 AM (Arrive by 10:55 AM) Bárbara Rios DO Family Medicine [phone] 10/21/2023 2:40 PM (Arrive by 2:25 PM) Shivani Magallon MD Nephrology [phone] 10/27/2023 8:30 AM (Arrive by 8:15 AM) Lindsey Sheikh CRNP Sleep Disorders [phone] 10/29/2023 11:30 AM Mery Calderon RDN [facility] [phone] 11/11/2023 11:00 AM Pharmacist1, [facility] [phone] 11/11/2023 11:30 AM Pharmacist1, [facility] [phone] 11/20/2023 2:30 PM Love Stevens RN [facility] [phone] 01/14/2024 12:30 PM [facility] Cardiac Studies [phone] 08/08/2024 9:30 AM Nurse [facility] [phone] Jaja Benedict, ANNE MARIE documented in this encounter Plan of Treatment Upcoming Encounters Date Type Department Care Team (Latest Contact Info) Description 10/17/2023 3:00 PM EDT Scheduled Telephone [facility], [address] [place] [address] [facility], Nurse [address] [place] [address] 10/18/2023 3:00 PM EDT Scheduled Telephone [facility], [facility] 132 [facility] [place] [address] [facility], Nurse [facility] 132 [facility] [place] [address] 10/20/2023 11:10 AM EDT Office Visit Family Medicine [address] [place] [phone] [address]árbara Rios[address] [place] [address] 10/21/2023 2:40 PM EDT Office Visit Nephrology [address] [place] [address] Shivani Magallon MD 200 [facility] [place] [address] 10/27/2023 8:30 AM EDT Office Visit Sleep Disorders Ctr [facility] 132 [facility] [place] [phone] Lindsey Sheikh CRNP 132 [facility] [place] [address] 10/29/2023 11:30 AM EDT Scheduled Telephone [facility], [facility] [address] [facility] [place] [address] Mery Calderon RDN [address] [facility] [place] [address] 11/11/2023 11:00 AM EDT Telemedicine Pharmacy, [employer] 200 [facility] [place] [address] Pharmacist1, [facility] 200 [facility] [place] [address] 11/11/2023 11:30 AM EDT Telemedicine Pharmacy, [facility] [place] [address] [place] [address] Pharmacist1, [facility] 200 [facility] [place] [address] 11/20/2023 2:30 PM EDT Home Visit [facility], [facility] [address] [place] [address] Love Stevens, ANNE MARIE [address] [place] [address] 12/31/2023 11:45 AM EDT Hospital Encounter ENDO OSS, Endoscopy Room [facility] [address] [place] [phone] José Miguel Sifuentes MD [address] [place] [address] 12/31/2023 11:45 AM EDT - 12/31/2023 12:15 PM EDT Surgery ENDO [facility], Endoscopy Room [facility] [address] [place] [phone] José Miguel Sifuentes MD [address] [place] [address] COLONOSCOPY FLEXIBLE PROXIMAL DIAGNOSTIC 01/14/2024 12:30 PM EDT Cardiac Studies Cardiac Studies [address] [place] [address] 08/08/2024 9:30 AM EST Nurse Only Ancillary [address] [place] [address] [place], Nurse [address] [place] [address] Scheduled Procedures Name Priority Associated Diagnoses Date/Ti me COLONOSCOPY FLEXIBLE PROXIMA L DIAGNOSTIC Recall Special screening for malignant neoplasms, colon 12/31/2023 11:45 AM EDT ESOPHAGOGASTRODUODENOSCOPY ( EGD), FLEXIBLE, TRANSORAL, DIAGNOSTIC Recall Arreola's esophagus with dysplasia Health Maintenance Due Date Last Done Comments HIV Screening 1974 Alpha-1 Antitrypsin 1977 COLONOSCOPY-EVERY 5 YRS AGES 18-100 01/01/2023 01/01/2018, 01/01/2018 COVID-19 Vaccine (3 - 2022- season) 2023 12/10/2020, 11/12/2020 Diabetic Foot Exam [...] this encounter Medical Devices Implanted Type Area Charhouse Worker Device Identifier Shelf Expiration Date Model / Serial / Lot Lens Intraoc 21.0 - [id number] - [id number] Implanted:Qty: 1 on 01/22/2017 by Cheko Mcnamara MD at OR [facility] Right: Eye [employer]US[employer] LOMB 08/05/2021 [id number] / [id number] / [id number] Lens Intraoc 21.5 - [id number] - [id number] Implanted:Qty: 1 on 02/03/2017 by Cheko Mcnamara MD at OR [facility] Left: Eye BAUSCH & LOMB 09/02/2021 [id number] / [id number] / [id number] documented as of this encounter Advance Directives [...] and were consensually agreed upon. Care Teams Radio Maintainer Relationship Specialty Start Date End Date Bárbara Rios DO [address] [place] [address] [place] [address] PCP - General Internal Medicine 08/16/21 documented as of this encounter
--- OUTSIDE RECORDS SUMMARY | 2023-10-20 22:51 | External Medical Summary | Summary of Care ---
Author Name Unknown Organization [facility] Address [address] [facility] [address] Phone [phone] Care Team Providers Care Executive Housekeeper Name Role Phone Bárbara Rios Primary Care Provider [phone] Reason for Visit * Reason Comments [facility]: Acute Encounter Details Date Type Department Care Team (Late st Contact Info) Description 10/16/2023 10:00 AM EDT Home Visit [facility], [facility] [address] [place] [address] Love Stevens, RN [address] [place] [address] Chronic heart failure with preserved ejection fraction [...] managing provider. 60 Each 0 09/30/2023 Active Uunrv-1-nldf Ethyl Esters 1 GM Oral Capsule (Lovaza) [...] in the Comments) Remote Patient Monitoring Vendor: [facility] Device(s): Connected Scale Self - Management Plan [...] Continues on lovaza 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 [employer] History of tobacco use 08/18/2017 [place] on [...] yrs 01/04/2018,08/03/2017,07/03 Pneumococcal Conjugate Vacci ne, 20-valent ([id number]) 06/09/2022 Pneumococcal Polysaccharide PPV23 (Pneumovax) 03/06/2020 Seasonal [...] note were not included. [facility] Marketing Traffic CoordinatorAdmission Discharge Rn Visit Date: 10/16/2023 Time: 11:16 AM Name: [...] Being followed by Nephrology- Dr. Magallon, manager environmental health and safety- Christy Garcia RN TT to [facility]- Dr. Mulligan Patient to take Metolazone now(has [...] medication regimen Patient Needs to Remember: Call [facility] with any medical concerns/ red flags Referrals [...] PM EDT Scheduled Telephone [facility], [facility] [address] [place] [address] [facility], Nurse [address] [place] [address] 10/18/2023 3:00 PM EDT Scheduled Telephone [facility], [facility] 132 [place] [address] [facility] Nurse [address] [place] [address] 10/20/2023 11:10 AM EDT Office Visit Family Medicine [address] [place] [phone] Bárbara Rios [address] [place] [address] 10/21/2023 2:40 PM EDT Office Visit Nephrology [address] [place] [address] Shivani Magallon MD 200 [facility] [place] [address] 10/27/2023 8:30 AM EDT Office Visit Sleep Disorders Ctr [facility] 132 [facility] [place] [phone] Lindsey Sheikh CRNP 132 [facility] [place] [address] 10/29/2023 11:30 AM EDT Scheduled Telephone [facility], [facility] [address] [place] [facility] [place] [address] Mery Calderon RDN [address] [place] [facility] [place] [address] 11/11/2023 11:00 AM EDT Telemedicine Pharmacy, [facility] 200 [facility] [place] [address] Pharmacist1, [facility] 200 [facility] [place] [address] 11/11/2023 11:30 AM EDT Telemedicine Pharmacy, [facility] [place] 200 [facility] [place] [address] Pharmacist1, [facility] Sp 200 [facility] [place] [address] 11/20/2023 2:30 PM EDT Home Visit [facility], [facility] 132 [place] [address] Love Stevens, RN [address] [place] [address] 12/31/2023 11:45 AM EDT Hospital Encounter ENDO [facility], Endoscopy Room [facility] [address] [place] [phone] José Miguel Sifuentes MD [address] [place] [address] 12/31/2023 11:45 AM EDT - 12/31/2023 12:15 PM EDT Surgery ENDO [facility], Endoscopy Room [facility] [address] [place] [phone] José Miguel Sifuentes MD [address] [place] [address] COLONOSCOPY FLEXIBLE PROXIMAL DIAGNOSTIC 01/14/2024 12:30 PM EDT Cardiac Studies Cardiac Studies [address] [place] [address] 08/08/2024 9:30 AM EST Nurse Only Ancillary [address] [place] [address] [place], Nurse Annual [address] [place] [address] Scheduled Procedures Name Priority Associated Diagnoses Date/Ti [...] this encounter Medical Devices Implanted Type Area Cancer Registry Manager Device Identifier Shelf Expiration Date Model / Serial / Lot Lens Intraoc 21.0 - [id number] - [id number] Implanted:Qty: 1 on 01/22/2017 by Cheko Mcnamara MD at OR [facility] Right: Eye [employer] LOMB 08/05/2021 [id number] / [id number] / [id number] Lens Intraoc 21.5 - [id number] - [id number] Implanted:Qty: 1 on 02/03/2017 by Cheko Mcnamara MD at OR [facility] Left: Eye BAUSCH & LOMB 09/02/2021 [id number] / [id number] / [id number] documented as of this encounter Visit Diagnoses [...] and were consensually agreed upon. Care Teams Executive Housekeeper Relationship Specialty Start Date End Date Bárbara Rios DO [address] [place] [address] [place] [address] PCP - General Internal Medicine 08/16/21 documented as of this encounter
--- OUTSIDE RECORDS SUMMARY | 2023-10-20 22:52 | External Medical Summary | Summary of Care ---
Author Name Unknown Organization [facility] Address [address] [facility] [place] [address] Phone [phone] Care Team Providers Care Tattoo Technician Name Role Phone Bárbara Rios Primary Care Provider [phone] Reason for Visit * Reason Onset Date Comments [facility]: Maintenance 10/07/2023 Encounter Details Date Type Department Care Team (Late st Contact Info) Description 10/07/2023 Telephone [facility], [facility] 1000 [address] [facility] [place] [address] [facility], Nurse [facility] [address] [facility] [place] [place] [address] [facility]: Maintenance Allergies Active Allergy Reactions Criticality Noted Date Comments Other Allergy (See Comments) Rash Low 10/13/2022 1+ cocamidopropyl betaine Sglt2 Inhibitors Other (Please comment) High 09/04/2020 Genital infection Sulfa Antibiotics Rash 10/15/2016 documented as of this encounter (statuses as of 10/07/2023) Medications Medication Sig Dispensed Refills Start Date [...] 32 UNITS WITH DINNER PLUS CORRECTION PER [facility] OR DIRECTED UP TO 120 [...] Active Evolocumab 140 MG/ML Subcutaneous Solution Auto-injector (Centrix)Indicatio ns:Dyslipidemia, goal LDL below 100,Mixed dyslipidemia Inject [...] managing provider. 60 Each 0 09/30/2023 Active Zrbia-7-fevi Ethyl Esters 1 GM Oral Capsule (Lovaza) [...] as of this encounter (statuses as of 10/07/2023) Active Problems Problem Noted Date Diagnosed Date [...] in the Comments) Remote Patient Monitoring Vendor: [facility] Device(s): Connected Scale Self - Management Plan [...] as of this encounter (statuses as of 10/07/2023) Resolved Problems Problem Noted Date Diagnosed Date [...] as of this encounter (statuses as of 10/07/2023) Immunizations Name Administration Dates Next Due COVID-19 mRNA, LNP-s, No Pre serve, 2-Dose Series (Moderna) 12/10/2020,11/12/2020 Hepatitis B, 20+ yrs 01/04/2018,08/03/2017,07/03 Pneumococcal Conjugate Vacci ne, 20-valent ([id number]) 06/09/2022 Pneumococcal Polysaccharide PPV23 (Pneumovax) 03/06/2020 Seasonal [...] Telephone Encounter - Alexandra Mcgraw LPN - 10/07/2023 12:26 PM EDT Noted * Telephone Encounter - Josh Sullivan MD - 10/07/2023 12:14 PM EDT That's fine Let's see how he is doing tomorrow * Telephone Encounter - Alexandra Mcgraw LPN - 10/07/2023 11:32 AM EDT Images from the original note were not included. [facility] Remote Patient Monitoring Able to contact patient: Trigger type: Abnormal reading(s): AMC (Advanced Monitored Caregiving): Scale: Baseline weight: 293 lbs Trigger weight: 291.9 lbs; weight increased 2.6 lbs in 1 day(s) Trigger priority per [facility]: high Patient takes diuretic medication: Yes, reviewed current diuretic use: Name of medication: Torsemide Dose: 40 mg Frequency: BID Symptom review: Edema: "little" in ABD SOB: "little" SOB Diet Reviewed: Yes. Patient has had any foods high in sodium: No Fluid Intake Reviewed: Yes. Patient is on a fluid restriction: Yes, restriction amount in milliliters or liters: 2 Adherent to restriction: No, pt reports going a little over fluid resctrition yesterday Self-Management Plan Reviewed: Risk assignment recommendation: Moderate risk findings (check as applicable): [] Moderate trigger priority on [facility] [] Confirmed tympanic equivalent temperature 100.4-101.9 F one hour post administration of antipyretic [] Weight gain of 2.1-4.9 lbs over 1-2 days [] Confirmed new sustained resting HR greater than 105 WITHOUT symptoms [] Weight gain of greater than [...] 90 WITH symptoms Additional risk selection justification: [facility] trigger for 2.6 lb increase in 1 day Call to pt states he is "ok", Reports just a "little" increase in SOB and "little " ABD distention. States nothing to bad Denies CP, -cough, -BLE edema, no issues with sleep No missed doses of diuretic Reports adhering to fluid restriction Pt states he did go over fluid restriction a bit yesterday Pt would like to wait on DTP for one day. States he will watch fluid and sodium closely if no improvement in weight tomorrow pt is agreeable to starting DTP then. Will forward to care team for any further direction. F/u call scheduled Overall risk and identified plan: High risk: Next day follow up call scheduled Route to RNCM (Registered Nurse Web Press Operator Helper Offset) and Advance Practitioner Route to RMC (Remote Medical Coordinator) documented in this encounter Plan of Treatment Upcoming Encounters Date Type Department Care Team (Latest Contact Info) Description 10/08/2023 12:15 PM EDT Scheduled Telephone [facility], [facility] [address] [place] [address] Coordinator, [facility] [address] [place] [address] 10/09/2023 4:00 PM EDT Home Visit [facility], [facility] [address] [place] [address] Love Stevens, ANNE MARIE [address] [place] [address] 10/14/2023 12:30 PM EDT Office Visit Family Medicine [address] [place] [phone] Bár[address] R[address] [place] [address] 10/21/2023 2:40 PM EDT Office Visit Nephrology [address] [place] [address] Shivani Magallon MD 200 [facility] [place] [address] 10/27/2023 8:30 AM EDT Office Visit Sleep Disorders Ctr [facility] 132 [facility] [place] [phone] Lindsey Sheikh CRNP [address] [place] [address] 10/29/2023 11:30 AM EDT Scheduled Telephone [facility], [facility] [address] [facility] [place] [address] Mery Calderon RDN [address] [place] [address] 11/11/2023 11:00 AM EDT Telemedicine Pharmacy, [facility] [address] [place] [address] Pharmacist1, [facility] [address] [place] [address] 11/11/2023 11:30 AM EDT Telemedicine Pharmacy, [facility] [address] [place] [address] Pharmacist1, [facility] [address] [place] [address] 12/31/2023 11:45 AM EDT Hospital Encounter ENDO [facility], Endoscopy Room [facility] [address] [place] [phone] José Miguel Sifuentes MD [address] [place] [address] 12/31/2023 11:45 AM EDT - 12/31/2023 12:15 PM EDT Surgery ENDO [facility], Endoscopy Room [facility] [address] [place] [phone] José Miguel Sifuentes MD [address] [place] [address] COLONOSCOPY FLEXIBLE PROXIMAL DIAGNOSTIC 01/14/2024 12:30 PM EDT Cardiac Studies Cardiac Studies [address] [place] [address] 08/08/2024 9:30 AM EST Nurse Only Ancillary [address] [place] [address] [place], Nurse [address] [place] [address] Scheduled Procedures Name Priority Associated Diagnoses Date/Ti [...] ASSESSMENT COMPLETED IN PAST YEAR FOR COPD 09/10/2024 09/11/2023 Arreola's Esophagus Surveilance 06/16/2025 06/16/2022, 06/16/2022, 03/20/2022, [...] this encounter Medical Devices Implanted Type Area Manual Tester Device Identifier Shelf Expiration Date Model / Serial / Lot Lens Intraoc 21.0 - [id number] - [id number] Implanted:Qty: 1 on 01/22/2017 by Cheko Mcnamara MD at OR [facility] Right: Eye [employer] LOMB 08/05/2021 [id number] / [id number] / [id number] Lens Intraoc 21.5 - [id number] - [id number] Implanted:Qty: 1 on 02/03/2017 by Cheko Mcnamara MD at OR [facility] Left: Eye BAUSCH & LOMB 09/02/2021 [id number] / [id number] / [id number] documented as of this encounter Advance Directives [...] and were consensually agreed upon. Care Teams Tattoo Technician Relationship Specialty Start Date End Date Bárbara Rios DO [address] [place] [address] [place] [address] PCP - General Internal Medicine 08/16/21 documented as of this encounter
--- OUTSIDE RECORDS SUMMARY | 2023-10-20 22:52 | External Medical Summary | Summary of Care ---
Author Name Unknown Organization [facility] Address [address] [facility] [place] [address] Phone [phone] Care Team Providers Care Filtration Plant Mechanic Name Role Phone Bárbara Rios Primary Care Provider [phone] Reason for Visit * Reason Onset Date Comments [facility]: Acute 10/12/2023 Encounter Details Date Type Department Care Team (Late st Contact Info) Description 10/12/2023 Telephone [facility], [facility] [address] [facility] [place] [address] [facility], Nurse [facility] [address] [facility] [place] [address] [facility]: Acute Allergies Active Allergy Reactions Criticality Noted Date Comments Other Allergy (See Comments) Rash Low 10/13/2022 1+ cocamidopropyl betaine Sglt2 Inhibitors Other (Please comment) High 09/04/2020 Genital infection Sulfa Antibiotics Rash 10/15/2016 documented as of this encounter (statuses as of 10/12/2023) Medications Medication Sig Dispensed Refills Start Date [...] 32 UNITS WITH DINNER PLUS CORRECTION PER [facility] OR DIRECTED UP [...] Active Evolocumab 140 MG/ML Subcutaneous Solution Auto-injector ([employer])Indicatio ns:Dyslipidemia, goal LDL below 100,Mixed dyslipidemia Inject [...] managing provider. 60 Each 0 09/30/2023 Active Pmlwo-1-gfqr Ethyl Esters 1 GM Oral Capsule (Lovaza) [...] as of this encounter (statuses as of 10/12/2023) Active Problems Problem Noted Date Diagnosed Date [...] the Comments) Remote Patient Monitoring Vendor: [facility] Device(s): Connected Scale Self - Management Plan [...] as of this encounter (statuses as of 10/12/2023) Resolved Problems Problem Noted Date Diagnosed Date [...] as of this encounter (statuses as of 10/12/2023) Immunizations Name Administration Dates Next Due COVID-19 mRNA, LNP-s, No Pre serve, 2-Dose Series (Moderna) 12/10/2020,11/12/2020 Hepatitis B, 20+ yrs 01/04/2018,08/03/2017,07/03 Pneumococcal Conjugate Vacci ne, 20-valent ([id number]) 06/09/2022 Pneumococcal Polysaccharide PPV23 (Pneumovax) 03/06/2020 Seasonal [...] encounter Miscellaneous Notes * Telephone Encounter - Chilango Trujillo MD - 10/12/2023 9:15 AM EDT Agree with recommendations as written in note. Will follow today's home visit. E * Telephone Encounter - Mary Jane Moser RN - 10/12/2023 8:55 AM EDT Images from the original note were not included. [facility] senior dentist Acute Call Date: 10/12/2023 Time: 8:55 AM Name: Tony Delong : 1960 Caller: patient Relationship to Chief Complaint Patient presents with [facility]: Acute HPI: Tony Delong is a 63 year old male who is calling [facility] Intake to report he has increased SOB, LE edema 1/2 way up lower legs, abdominal distention It started yesterday, he took double Torsemide, states " didn't seem to help much". Have held Metolazone in past due to kidney issues No O2, No pulse ox Is good at watching salt intake per patient, but couldn't remember what he ate Watches fluids, has 60 oz restrictions, thinks he stays within restriction most of the time. No rhonchi or wheezing noted during conversation [facility]: Nursing Assessment: Patient's chief complaint for this call: Other, describe SOB, weight gain Pain Denies pain Baseline Assessment Able to performing ADLs at baseline (walking, daily tasks, etc.): Yes Chief Complaint is related to a chronic condition: Yes Chronic Condition: HF Chief Complaint is a change in baseline: Yes, Increase SOB, increased edema Patient prescribed oxygen? No Patient has been ordered DME equipment (assistive devices, respiratory equipment, etc.): No Medication Reconciliation: Received flu shot this season: Yes Taking medication as ordered: Yes Medications ordered/taking to treat reason for call: Yes, PRN medication(s) Took extra dose of Torsemide Heart failure symptoms: Yes Is Diuretic Titration Protocol (DTP) ordered? Yes Describe Diuretic Titration Protocol (DTP): Double Torsemide x 3 days Diuretic Titration Protocol (DTP) activated: Yes, date/time activated 10-11-23 COPD exacerbation symptoms: No Reinforcement Education: Remain within fluid restrictions No added salt, low salt food choices Elevate legs to hip level Follow up calls set Routed to [facility] for any additional orders/recommendations Treatment/Plan: Level of call: Acute Appointment scheduled for same day: Yes, Patient has 4pm RNCM visit set for today Treatment plan until appointment: Cont DTP of Double Torsemide x 3 days Violette Moser RN, BSN [facility] Intake Triage Coordinator [phone] Call back instructions provided to patient. documented in this encounter Plan of Treatment Upcoming Encounters Date Type Department Care Team (Latest Contact Info) Description 10/12/2023 4:00 PM EDT [facility] Visit [facility] 132 [place] [address] Love Stevens RN [address] [place] [address] 10/13/2023 11:00 AM EDT Scheduled Telephone [facility] [address] [place] [address] Coordinator, [facility] 132 [place] [address] 10/14/2023 12:30 PM EDT Office Visit Family Medicine [address] [place] [phone] Bárbara Rios [address] [place] [address] 10/21/2023 2:40 PM EDT Office Visit Nephrology [address] [place] [address] Shivani Magallon MD [address] [place] [address] 10/27/2023 8:30 AM EDT Office Visit Sleep Disorders Ctr [facility] 132 [facility] [place] [phone] Lindsey Sheikh CRNP 132 [facility] [place] [address] 10/29/2023 11:30 AM EDT Scheduled Telephone [facility], [facility] [address] [place] [facility] [place] [address] Mery Calderon RDN [address] [place] [facility] [place] [address] 11/11/2023 11:00 AM EDT Telemedicine Pharmacy, [facility] 200 [facility] [place] [address] Pharmacist1, [facility] 200 [facility] [place] [address] 11/11/2023 11:30 AM EDT Telemedicine Pharmacy, [facility] [address] [place] [address] Pharmacist1, [facility] 200 [facility] [place] [address] 11/20/2023 2:30 PM EDT Home Visit [facility], [facility] [address] [place] [address] Love Stevens, RN 132 [facility] [place] [address] 12/31/2023 11:45 AM EDT [facility] [address] [place] [phone] José Miguel Sifuentes MD [address] [place] [address] 12/31/2023 11:45 AM EDT - 12/31/2023 12:15 PM EDT Surgery [facility] [address] [place] [phone] José Miguel Sifuentes MD [address] [place] [address] COLONOSCOPY FLEXIBLE PROXIMAL DIAGNOSTIC 01/14/2024 12:30 PM EDT Cardiac Studies Cardiac Studies [address] [place] [address] 08/08/2024 9:30 AM EST Nurse Only Ancillary [address] [place] [address] [place], Nurse Annual [address] [place] [address] Scheduled Procedures Name Priority Associated Diagnoses Date/Ti [...] this encounter Medical Devices Implanted Type Area Coiler Device Identifier Shelf Expiration Date Model / Serial / Lot Lens Intraoc 21.0 - [id number] - [id number] Implanted:Qty: 1 on 01/22/2017 by Cheko Mcnamara MD at OR [facility] Right: Eye [employer] 08/05/2021 [id number] / [id number] / [id number] Lens Intraoc 21.5 - [id number] - [id number] Implanted:Qty: 1 on 02/03/2017 by Cheko Mcnamara MD at OR [facility] Left: Eye [employer]OM[employer] 09/02/2021 [id number] / [id number] / [id number] documented as of this encounter Advance Directives [...] and were consensually agreed upon. Care Teams Filtration Plant Mechanic Relationship Specialty Start Date End Date Bárbara Rios DO [address] [place] [address] [place] [phone] PCP - General Internal Medicine 08/16/21 documented as of this encounter
--- OUTSIDE RECORDS SUMMARY | 2023-10-20 22:52 | External Medical Summary | Summary of Care ---
Author Name Unknown Organization [facility] Address [address] [facility] [place] [address] Phone [phone] Care Team Providers Care Medicare Sales Representative Name Role Phone Bárbara Rios Primary Care Provider [phone] Reason for Visit * Reason Onset Date Comments [facility]: Maintenance 10/13/2023 Encounter Details Date Type Department Care Team (Late st Contact Info) Description 10/13/2023 11:00 AM EDT Scheduled Telephone [facility], [facility] [address] [place] [address] Coordinator, [facility] [address] [place] [address] Allergies Active Allergy Reactions Criticality Noted Date Comments Other Allergy (See Comments) Rash Low 10/13/2022 1+ cocamidopropyl betaine Sglt2 Inhibitors Other (Please comment) High 09/04/2020 Genital infection Sulfa Antibiotics Rash 10/15/2016 documented as of this encounter (statuses as of 10/13/2023) Medications Medication Sig Dispensed Refills Start Date [...] UNITS WITH DINNER PLUS CORRECTION PER [facility] CL[facility] OR DIRECTED UP TO [...] Active Evolocumab 140 MG/ML Subcutaneous Solution Auto-injector ([employer])Indicatio ns:Dyslipidemia, goal LDL below 100,Mixed dyslipidemia Inject [...] managing provider. 60 Each 0 09/30/2023 Active Pyxtd-9-sqck Ethyl Esters 1 GM Oral Capsule (Lovaza) [...] as of this encounter (statuses as of 10/13/2023) Active Problems Problem Noted Date Diagnosed Date [...] in the Comments) Remote Patient Monitoring Vendor: [facility] Device(s): Connected Scale Self - Management Plan [...] as of this encounter (statuses as of 10/13/2023) Resolved Problems Problem Noted Date Diagnosed Date [...] as of this encounter (statuses as of 10/13/2023) Immunizations Name Administration Dates Next Due COVID-19 mRNA, LNP-s, No Pre serve, 2-Dose Series (Moderna) 12/10/2020,11/12/2020 Hepatitis B, 20+ yrs 01/04/2018,08/03/2017,07/03 Pneumococcal Conjugate Vacci ne, 20-valent ([id number]) 06/09/2022 Pneumococcal Polysaccharide PPV23 (Pneumovax) 03/06/2020 Seasonal [...] encounter Miscellaneous Notes * Telephone Encounter - Ara Lizama RN - 10/13/2023 11:33 AM EDT Images from the original note were not included. [facility] Telephonic Nurse Follow-Up Call [facility] Subprogram: Focused Care Management (3-9 months) Follow Up Call Type: 24 hour follow up Acute issue requiring follow-up call: Remote Patient Monitoring Trigger Objective: 10/12/2023 2:21 PM 10/09/2023 3:19 PM 09/11/2023 11:03 AM 09/04/2023 2:02 PM 09/03/2023 1:45 PM VITALS ACROSS ENCOUNTERS BP 122/60 132/68 132/66 118/70 158/72 Pulse 68 70 64 76 64 Remote Patient Monitoring: [facility] Scale: scale Oxygen Needs: NO supplemental oxygen needs identified DME Needs: NO DME needs identified Medications: Current DTP: Double dose of Torsemide for 3 days (10/10,10/11 and 10/12) Subjective: Condition Status: Improvement in symptoms but not at baseline Current Concerns: Called and spoke with patient, he stated "he feels better today". Denies SOB, voiding has increased and he lost 2.7 lbs . He will continue the DTP of double dose of torsemide today. Aware to call [facility] if condition worsens or changes. Disposition: Follow up call scheduled for tomorrow with [employer] Pharmacist [employer] Future Visits Scheduled: Future Appointments-next 60 days Date/Time Provider Specialty Dept Phone 10/14/2023 12:30 PM (Arrive by 12:15 PM) Bárbara Rios DO Family Medicine [phone] 10/21/2023 2:40 PM (Arrive by 2:25 PM) Shivani Magallon MD Nephrology [phone] 10/27/2023 8:30 AM (Arrive by 8:15 AM) Lindsey Sheikh CRNP Sleep Disorders [phone] 10/29/2023 11:30 AM Mery Calderon RDN [facility] [phone] 11/11/2023 11:00 AM Pharmacist1, [facility] [phone] 11/11/2023 11:30 AM Pharmacist1, [facility] [phone] 11/20/2023 2:30 PM Love Stevens, RN [facility] [phone] 01/14/2024 12:30 PM [employer] [facility] Cardiac Studies [phone] 08/08/2024 9:30 AM [place] Nurse Annual Wellness Ancillary [phone] Ara Lizama wireless technicianFolder Seamer Automatic [facility] documented in this encounter Plan of Treatment Upcoming Encounters Date Type Department Care Team (Latest Contact Info) Description 10/14/2023 12:30 PM EDT Office Visit Family Medicine [address] [place] [phone] Bárbara Rios[address] [place] [address] 10/14/2023 1:15 PM EDT Scheduled Telephone [facility], [facility] 132 [facility] [place] [address] Coordinator, [facility] [address] [facility] [place] [address] 10/21/2023 2:40 PM EDT Office Visit Nephrology [address] [place] [address] Shivani Magallon MD [address] [place] [address] [place] [address] 10/27/2023 8:30 AM EDT Office Visit Sleep Disorders Ctr [facility] 132 [place] [phone] Lindsey Sheikh CRNP [address] [place] [address] 10/29/2023 11:30 AM EDT Scheduled Telephone [facility], [facility] [address] [facility] [place] [address] Mery Calderon, RDN [address] [facility] [place] [address] 11/11/2023 11:00 AM EDT Telemedicine Pharmacy, [facility] 200 [facility] [place] [address] Pharmacist1, [facility] 200 [facility] [place] [address] 11/11/2023 11:30 AM EDT Telemedicine Pharmacy, [facility] [address] [facility] [place] [address] Pharmacist1, [facility] 200 [facility] [place] [address] 11/20/2023 2:30 PM EDT Home Visit [facility], [facility] [address] [place] [address] Love Stevens, ANNE MARIE [address] [place] [address] 12/31/2023 11:45 AM EDT Hospital Encounter ENDO [facility], Endoscopy Room [facility] [address] [place] [phone] José Miguel Sifuentes MD 132 [place] [address] 12/31/2023 11:45 AM EDT - 12/31/2023 12:15 PM EDT Surgery ENDO [facility], Endoscopy Room [facility] [address] [place] [phone] José Miguel Sifuentes MD [address] [place] [address] COLONOSCOPY FLEXIBLE PROXIMAL DIAGNOSTIC 01/14/2024 12:30 PM EDT Cardiac Studies Cardiac Studies [address] [place] [address] 08/08/2024 9:30 AM EST Nurse Only Ancillary [address] [place] [address] [place], Nurse [address] [place] [address] Scheduled Procedures Name Priority Associated Diagnoses Date/Ti [...] this encounter Medical Devices Implanted Type Area Machine Chocolate Molder Device Identifier Shelf Expiration Date Model / Serial / Lot Lens Intraoc 21.0 - [id number] - [id number] Implanted:Qty: 1 on 01/22/2017 by Cheko Mcnamara MD at OR [facility] Right: Eye [employer] 08/05/2021 [id number] / [id number] / [id number] Lens Intraoc 21.5 - [id number] - [id number] Implanted:Qty: 1 on 02/03/2017 by Cheko Mcnamara MD at OR [facility] Left: Eye [employer]OMB 09/02/2021 [id number] / [id number] / [id number] documented as of this encounter Advance Directives [...] and were consensually agreed upon. Care Teams Medicare Sales Representative Relationship Specialty Start Date End Date Bárbara Rios DO [address] [place] [address] [place] [address] PCP - General Internal Medicine 08/16/21 documented as of this encounter
--- OUTSIDE RECORDS SUMMARY | 2023-10-20 22:52 | External Medical Summary | Summary of Care ---
Author Name Unknown Organization [facility] Address [address] [facility] [place] [address] Phone [phone] Care Team Providers Care Plate Hanger Name Role Phone Bárbara Rios Primary Care Provider [phone] Reason for Visit * Reason Comments Medication Refill Encounter Details Date Type Department Care Team (Late st Contact Info) Description 10/05/2023 Refill [place]iology [place] [address] [place] [place] [phone] Elizabeth Williamson CRNP [address] [place] [address] Allergies Active Allergy Reactions Criticality Noted Date Comments Other Allergy (See Comments) Rash Low 10/13/2022 1+ cocamidopropyl betaine Sglt2 Inhibitors Other (Please comment) High 09/04/2020 Genital infection Sulfa Antibiotics Rash 10/15/2016 documented as of this encounter (statuses as of 10/05/2023) Medications Medication Sig Dispensed Refills Start Date End Date Status Cholecalciferol (VITAMIN D3) 2000 UNITS Capsule Take by mouth 5,000 Units daily . 30 Cap 5 04/29/2022 Active Aspirin 81 MG TabletIndications: takes in the evening Take 1 Tablet by mouth in the morning. 0 Active B Complex Capsule Take 1 Cap by mouth daily. 0 Active acetaminophen (TYLENOL) 500 MG TabletIndications: Acute left-sided low back pain with left-sided sciatica Take 1 Tablet by mouth every 6 hours as needed for Pain, Moderate. 100 Tab 0 04/27/2022 Active CoQ10 100 MG Oral CapsuleIndications :takes in the evening Take 200 mg by mouth in the morning. Patient takes at night. 0 Active CPAP every night at bedtime. 0 Active OneTouch Delica Lancets 33G Use 3 times daily - E11.9 300 Each 3 09/06/2021 Active Additional Information Patient taking differently:, Use 3 times daily - E11.9,Indications: diabetes, Reported on 07/14/2022 FreeStyle Cindy 2 SensorIndications: Type 2 diabetes mellitus with hemoglobin A1c goal of less than 7.0% (HCC) Use as directed every 14 days . 6 Each 3 04/24/2022 Active Metamucil 28.3 % Oral Powder (Psyllium) Take by mouth 2 times a day. 0 Active Clindamycin Phosphate 1 % External GelIndications:Fol liculitis Apply 2x daily to spots on scalp/neck until resolved, then when flaring 60 g 2 06/11/2022 Active Tresiba FlexTouch 200 UNIT/ML Subcutaneous Solution Pen-injectorIndica tions:Type 2 diabetes mellitus with hemoglobin A1c goal of less than 7.0% (HCC) INJECT UNDER THE SKIN 100 UNITS TWICE DAILY OR DIRECTED 90 mL 3 12/18/2022 4 Active NovoLOG FlexPen 100 UNIT/ML Subcutaneous Solution Pen-injectorIndica tions:Type 2 diabetes mellitus with hemoglobin A1c goal [...] U/F 31G X 8 MM (Insulin Pen Needle)Indications :Type 2 diabetes mellitus with hemoglobin A1c goal of less than 7.0% (HCC) USE TO INJECT INSULINS 5 TIMES DAILY 500 Each 3 02/16/2023 Active Semaglutide (2 MG/DOSE) 8 MG/3ML Subcutaneous Solution Pen-injector (Ozempic)Indicatio ns:Type 2 diabetes mellitus with hemoglobin A1c goal of less than 8.0% (HCC) Inject 2 mg under the skin once a week. 9 mL 3 04/09/2023 Active Carvedilol 25 MG Oral Tablet (Coreg)Indications :HTN, goal below 140/90 TAKE ONE TABLET BY MOUTH EVERY MORNING AND TAKE ONE TABLET BY MOUTH BEFORE BEDTIME 200 Tablet 3 04/19/2023 4 Active Omeprazole 20 MG Oral Capsule Delayed Release (PriLOSEC) TAKE 1 CAPSULE BY MOUTH IN THE MORNING AND 1 CAPSULE BEFORE BEDTIME 30 MINUTES BEFORE A MEAL 180 Capsule 1 04/28/2023 4 Active Evolocumab 140 MG/ML Subcutaneous Solution Auto-injector (Repatha BusbudClick)Indicati ons:Dyslipidemia, goal LDL below 100,Mixed dyslipidemia Inject 140 mg under the skin every 14 days. 6 mL 3 06/19/2023 Active hydrALAZINE HCl 25 MG Oral Tablet (Apresoline)Indica tions:HTN, goal below 140/90 Take 1 Tablet by mouth in the morning and 1 Tablet at noon and 1 Tablet before bedtime. 300 Tablet 3 08/12/2023 Active Lisinopril 20 MG Oral Tablet (Prinivil) Take 1 Tablet by mouth in the morning. 100 Tablet 3 08/12/2023 Active Clotrimazole-Betam ethasone 1-0.05 % External Cream (Lotrisone) APPLY TOPICALLY TO AFFECTED AREA(S) TWO TIMES A DAY. 90 g 1 08/27/2023 5 Active Torsemide 20 MG Oral Tablet (Demadex)Indicatio ns:Hypertensive 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 (HCC) 40mg in the morning and 40mg in the afternoon. 180 Tablet 3 09/03/2023 Active Potassium Chloride Gaviota ER 10 MEQ Oral Tablet Extended ReleaseIndications :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) Take 1 Tablet by mouth in the morning and 1 Tablet before bedtime. 180 Tablet 3 09/08/2023 Active OneTouch Verio In Vitro Strip (Glucose Blood)Indications: Uncontrolled type 2 diabetes mellitus with hyperglycemia (HCC) USE TO TEST BLOOD GLUCOSE 3 TIMES A DAY. DX: E11.9 300 Strip 3 09/23/2023 Active DIURETIC TITRATION PLAN If no improvement on day 3, contact heart failure managing provider. 60 Each 0 09/30/2023 Active Rteqr-2-cueu Ethyl Esters 1 GM Oral Capsule (Lovaza) Take 2 Capsules by mouth in the morning and 2 Capsules before bedtime. 360 Capsule 1 10/05/2023 Active Mhwyv-9-oqib Ethyl Esters 1 GM Oral Capsule (Lovaza) Take 2 Capsules by mouth in the morning and 2 Capsules before bedtime. 360 Capsule 1 04/14/2023 Discontinu ed(Refill) Hospital, Clinic, or Other Facility Administered Medication [...] as of this encounter (statuses as of 10/05/2023) Active Problems Problem Noted Date Diagnosed Date [...] stairs") Medication Regimen: Beta Ritchie Therapy: Carvedilol ARIANAN Inhibitor/ARB Therapy: Lisinopril Diuretic therapy: Torsemide SGLT2 Inhibitor: No Current SGLT2 (Describe in the Comments) Remote Patient Monitoring Vendor: ABS Medical Device(s): Connected Scale Self - Management Plan [...] Continues on lovaza 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 repatha History of [...] as of this encounter (statuses as of 10/05/2023) Resolved Problems Problem Noted Date Diagnosed Date [...] as of this encounter (statuses as of 10/05/2023) Immunizations Name Administration Dates Next Due COVID-19 mRNA, LNP-s, No Pre serve, 2-Dose Series (Moderna) 12/10/2020,11/12/2020 Hepatitis B, 20+ yrs 01/04/2018,08/03/2017,07/03 Pneumococcal Conjugate Vacci ne, 20-valent (Eastuvu92) 06/09/2022 Pneumococcal Polysaccharide PPV23 (Pneumovax) 03/06/2020 Seasonal [...] encounter Miscellaneous Notes * Telephone Encounter - Elizabeth Williamson CRNP - 10/05/2023 9:29 AM EDT Signed Prescriptions: Disp Refills Lswwi-0-bokf Ethyl Esters 1 GM Oral Capsul*360 Ca*1 Sig: Take 2 Capsules by mouth in the morning and 2 Capsules before bedtime. Authorizing Provider: ELIZABETH WILLIAMSON * Telephone Encounter - Bianka Garcia RN - 10/05/2023 9:24 AM EDTPending Prescriptions: Disp Refills Bvlyj-6-uwgb Ethyl Esters 1 GM Oral Capsul*360 Ca*1 Sig: Take 2 Capsules by mouth in the morning and 2 Capsules before bedtime. * Telephone Encounter - Bianka Garcia RN - 10/05/2023 9:23 AM EDT Pending Prescriptions: Disp Refills Bodvu-0-ryhh Ethyl Esters 1 GM Oral Capsu*360 Ca*1 Sig: Take 2 Capsules by mouth in the morning and 2 Capsules before bedtime. documented in this encounter Plan of Treatment Upcoming Encounters Date Type Department Care Team (Latest Contact Info) Description 10/06/2023 2:10 PM EDT Office Visit Family Medicine [address] [place] [address] B[address] Rios[address] [place] [address] 10/09/2023 4:00 PM EDT [facility] [address] [place] [address] Love Stevens RN 132 [facility] [place] [address] 10/21/2023 2:40 PM EDT Office Visit Nephrology [address] [place] [address] Shivani Magallon MD 200 [facility] [place] [address] 10/27/2023 8:30 AM EDT Office Visit Sleep Disorders Ctr [facility] [address] [place] [phone] Lindsey Sheikh CRNP [address] [place] [address] 10/29/2023 11:30 AM EDT Scheduled Telephone [facility], [facility] [address] [facility] [place] [address] Mery Calderon RDN [address] [facility] [place] [address] 11/11/2023 11:00 AM EDT Telemedicine Pharmacy, [facility] [place] 200 [facility] [place] [address] Pharmacist1, [facility] [address] [place] [address] 11/11/2023 11:30 AM EDT Telemedicine Pharmacy, Susan Palacios [place] 200 [facility] [place] [address] Pharmacist1, [facility] [address] [place] [address] 12/31/2023 11:45 AM EDT Hospital Encounter ENDO [facility], Endoscopy Room [facility] [address] [place] [phone] José Miguel Sifuentes MD [address] [place] [address] 12/31/2023 11:45 AM EDT - 12/31/2023 12:15 PM EDT Surgery ENDO [facility], Endoscopy Room [facility] [address] [place] [phone] José Miguel Sifuentes MD [address] [place] [address] COLONOSCOPY FLEXIBLE PROXIMAL DIAGNOSTIC 01/14/2024 12:30 PM EDT Cardiac Studies Cardiac Studies [address] [place] [address] 08/08/2024 9:30 AM EST Nurse Only Ancillary [address] [place] [address] [place], Nurse [address] [place] [address] Scheduled Procedures Name Priority Associated Diagnoses Date/Ti [...] this encounter Medical Devices Implanted Type Area Nursing Coordinator Device Identifier Shelf Expiration Date Model / Serial / Lot Lens Intraoc 21.0 - [id number] - [id number] Implanted:Qty: 1 on 01/22/2017 by Cheko Mcnamara MD at OR [facility] Right: Eye BAUSCH & LOMB 08/05/2021 [id number] / [id number] / [id number] Lens Intraoc 21.5 - [id number] - [id number] Implanted:Qty: 1 on 02/03/2017 by Cheko Mcnamara MD at OR [facility] Left: Eye BAUSCH & LOMB 09/02/2021 [id number] / [id number] / [id number] documented as of this encounter Advance Directives [...] and were consensually agreed upon. Care Teams Plate Hanger Relationship Specialty Start Date End Date Bárbara Rios DO [address] [place] [address] [place] [address] PCP - General Internal Medicine 08/16/21 documented as of this encounter
--- OUTSIDE RECORDS SUMMARY | 2023-10-20 22:52 | External Medical Summary | Summary of Care ---
Author Name Unknown Organization [facility] Address [address] [facility] [place] [address] Phone [phone] Care Team Providers Care Vehicle Monitor Technician Name Role Phone Bárbara Rios Primary Care Provider [phone] Reason for Visit * Reason Onset Date Comments [facility]: Acute 10/12/2023 Encounter Details Date Type Department Care Team (Late st Contact Info) Description 10/12/2023 Telephone [facility], [facility] 132 [facility] [place] [address] [facility], Nurse [facility] 132 [facility] [place] [address] [facility]: Acute Allergies Active Allergy [...] 32 UNITS WITH DINNER PLUS CORRECTION PER [facility] OR DIRECTED UP TO 120 [...] Active Evolocumab 140 MG/ML Subcutaneous Solution Auto-injector (dVisitick)Indicatio ns:Dyslipidemia, goal LDL below 100,Mixed dyslipidemia Inject [...] managing provider. 60 Each 0 09/30/2023 Active Bzyhw-6-xhfw Ethyl Esters 1 GM Oral Capsule (Lovaza) [...] in the Comments) Remote Patient Monitoring Vendor: [facility] Device(s): Connected Scale Self - Management Plan [...] yrs 01/04/2018,08/03/2017,07/03 Pneumococcal Conjugate Vacci ne, 20-valent ([id number]) 06/09/2022 Pneumococcal Polysaccharide PPV23 (Pneumovax) 03/06/2020 Seasonal [...] encounter Miscellaneous Notes * Telephone Encounter - Mary Jane Moser RN - 10/12/2023 9:22 AM EDT Called patient, advised again to double torsemide this AM RNCM 4pm visit today Violette Moser RN, BSN [facility] Intake Triage Coordinator [phone] * Telephone Encounter - Chilango Trujillo MD - 10/12/2023 9:15 AM EDT Agree with recommendations as written in note. Will follow today's home visit. E * Telephone Encounter - Mary Jane Moser RN - 10/12/2023 8:55 AM EDT Images from the original note were not included. [facility] admissions coordinator Acute Call Date: 10/12/2023 Time: 8:55 AM Name: Tony Delong : 1960 Caller: patient Relationship to Chief Complaint Patient presents with [facility]: Acute HPI: Tony Delong is a 63 year old male who is calling [facility] Intake to report he has [...] level Follow up calls set Routed to [facility] for any additional orders/recommendations Treatment/Plan: Level of call: Acute Appointment scheduled for same day: Yes, Patient has 4pm RNCM visit set for today Treatment plan until appointment: Cont DTP of Double Torsemide x 3 days Violette Moser RN, BSN [facility] Intake Triage Coordinator [phone] Call back instructions provided to patient. documented in this encounter Plan of Treatment Upcoming Encounters Date Type Department Care Team (Latest Contact Info) Description 10/12/2023 4:00 PM EDT [facility] Visit [facility] [address] [place] [address] Love Stevens RN 132 [place] [address] 10/13/2023 11:00 AM EDT Scheduled Telephone [facility] 132 [place] [address] Coordinator, [facility] [address] [place] [address] 10/14/2023 12:30 PM EDT Office Visit Family Medicine [address] [place] [address] Bárbara Rios[address] [place] [address] 10/21/2023 2:40 PM EDT Office Visit Nephrology [address] [place] [address] Shivani Magallon MD 200 [facility] [place] [address] 10/27/2023 8:30 AM EDT Office Visit Sleep Disorders Ctr [facility] 132 [facility] [place] [phone] Lindsey Sheikh CRNP 132 [facility] [place] [address] 10/29/2023 11:30 AM EDT Scheduled Telephone [facility], [facility] [address] [facility] [place] [address] Mery Calderon RDN [address] [facility] [place] [address] 11/11/2023 11:00 AM EDT Telemedicine Pharmacy, [facility] [place] [address] [place] [address] Pharmacist1, [facility] [address] [place] [address] 11/11/2023 11:30 AM EDT Telemedicine Pharmacy, [facility] [place] [address] [place] [address] Pharmacist1, [facility] [address] [place] [address] 11/20/2023 2:30 PM EDT Home Visit [facility], [facility] [address] [place] [address] Love Stevens, RN [address] [place] [address] 12/31/2023 11:45 AM EDT Hospital Encounter ENDO [facility], Endoscopy Room [facility] [address] [place] [phone] José Miguel Sifuentes MD [address] [place] [address] 12/31/2023 11:45 AM EDT - 12/31/2023 12:15 PM EDT Surgery ENDO [facility], Endoscopy Room [facility] [address] [place] [phone] José Miguel Sifuentes MD [address] [place] [address] COLONOSCOPY FLEXIBLE PROXIMAL DIAGNOSTIC 01/14/2024 12:30 PM EDT Cardiac Studies Cardiac Studies [address] [place] [address] 08/08/2024 9:30 AM EST Nurse Only Ancillary [address] [place] [address] [place], Nurse Annual [address] [place] [address] Scheduled Procedures Name Priority Associated Diagnoses Date/Ti [...] this encounter Medical Devices Implanted Type Area Discharge Rn Device Identifier Shelf Expiration Date Model / Serial / Lot Lens Intraoc 21.0 - [id number] - [id number] Implanted:Qty: 1 on 01/22/2017 by Cheko Mcnamara MD at OR [facility] Right: Eye BAUSCH & LOMB 08/05/2021 [id number] / [id number] / [id number] Lens Intraoc 21.5 - [id number] - [id number] Implanted:Qty: 1 on 02/03/2017 by Cheko Mcnamara MD at OR [facility] Left: Eye BAUSCH & LOMB 09/02/2021 [id number] / [id number] / [id number] documented as of this encounter Advance Directives [...] and were consensually agreed upon. Care Teams Vehicle Monitor Technician Relationship Specialty Start Date End Date Bárbara Rios DO [address] [place] [address] [place] [phone] PCP - General Internal Medicine 08/16/21 documented as of this encounter
--- OUTSIDE RECORDS SUMMARY | 2023-10-20 22:52 | External Medical Summary | Summary of Care ---
Author Name Unknown Organization [facility] Address [address] [facility] [place] [address] Phone [phone] Care Team Providers Care Graduating Machine Operator Name Role Phone Bárbara Rios Primary Care Provider Reason for Visit * Reason Comments [facility]: Acute Encounter Details Date Type Department Care Team (Late st Contact Info) Description 10/12/2023 4:00 PM EDT Home Visit [facility], [facility] [address] [place] [address] Love Stevens, RN [address] [place] [address] Allergies Active Allergy Reactions Criticality Noted Date [...] 32 UNITS WITH DINNER PLUS CORRECTION PER [facility] OR DIRECTED UP TO 120 UNITS [...] Active Evolocumab 140 MG/ML Subcutaneous Solution Auto-injector (CodersClan)Indicatio ns:Dyslipidemia, goal LDL below 100,Mixed dyslipidemia Inject [...] managing provider. 60 Each 0 09/30/2023 Active Jyybm-8-lowo Ethyl Esters 1 GM Oral Capsule (Lovaza) [...] in the Comments) Remote Patient Monitoring Vendor: [facility] Device(s): Connected Scale Self - Management Plan [...] yrs 01/04/2018,08/03/2017,07/03 Pneumococcal Conjugate Vacci ne, 20-valent ([id number]) 06/09/2022 Pneumococcal Polysaccharide PPV23 (Pneumovax) 03/06/2020 Seasonal [...] Sign Reading Time Taken Comments Blood Pressure 122/60 10/12/2023 2:21 PM EDT Pulse 68 10/12/2023 2:21 PM EDT Temperature 35.9 C (96.6 F) 10/12/2023 2:21 PM ED T Respiratory Rate 18 10/12/2023 2:21 PM EDT Oxygen Saturation 96% 10/12/2023 2:21 PM EDT Inhaled Oxygen Concentration - - Weight - - Height - - Body Mass Index - - documented in this encounter Progress Notes * Love Stevens RN - 10/12/2023 2:10 PM EDT Images from the original note were not included. [facility] Manager ConventionSeismic Engineer Visit Date: 10/12/2023 Time: 2:10 PM Name: Tony Delong : 1960 Current Concerns: Patient seen for acute visit- weight trigger Reached out to intake this am d/t not feeling well. Feeling fatiqued- did eat foods over the weekend he shouldn't have. VSS +abd bloating Sob above baseline Lungs clear but diminished No LE edema noted Voiding very little Per [facility]- will update therapy plan. IV lasix- 160mg today Problems/Symptoms: Review of Systems Constitutional: Positive for fatigue. Respiratory: Positive for shortness of breath. Gastrointestinal: Positive for abdominal distention. Genitourinary: Negative. Voiding very little Musculoskeletal: Negative. Skin: Negative. Neurological: Negative. Hematological: Negative. Psychiatric/Behavioral: Negative. Physical Exam: BP 122/60 (BP Site: Left Arm, BP Position: Sitting, BP Cuff Size: Regular) | Pulse 68 | Temp 35.9 C (96.6 F) (Tympanic) | Resp 18 | SpO2 96% Pain 0 Physical Exam Constitutional: Appearance: Normal appearance. Cardiovascular: Rate and Rhythm: Normal rate and regular rhythm. Pulses: Normal pulses. Pulmonary: Effort: Pulmonary effort is normal. Breath sounds: Normal breath sounds. Comments: diminished Abdominal: General: Bowel sounds are normal. Palpations: [...] No. No falls since last visit Treatment/Plan: Iv lasix 100mg today- Infiltrated- attempt to place additional IV site without success- [facility] made aware. Per [facility]- dose received will likely diurese him. Follow up via phone tomorrow- Visit if necessary. Low na diet Fluid restriction Continue DTP today and tomorrow- (80mg Torsemide BID) Follow up phone call tomorrow. Home Interventions Provided: IV Interventions: Diuretic Consulted PCP/Specialist Reinforced current Plan of Care, including self-management and medication regimen Patient Needs to Remember: Call [facility] with any medical concerns/ red flags Referrals Needed: N/a Follow Up: Is there cellular connectivity/connectivity in the home? Yes Does the patient have internet in the home? Yes Patient encouraged to call the intake phone number for all urgent but not emergent issues. Scheduled to follow up with patient in 1 day via phone. Love Du RN 10/12/2023 2:10 PM documented in this encounter Plan of Treatment Upcoming Encounters Date Type Department Care Team (Latest Contact Info) Description 10/13/2023 11:00 AM EDT Scheduled Telephone [facility] [place], [facility] 132 [place] [address] Coordinator, [facility] 132 [place] [address] 10/14/2023 12:30 PM EDT Office Visit Family Medicine [address] [place] [address] Bárbara Rios[address] [place] [address] 10/21/2023 2:40 PM EDT Office Visit Nephrology [address] [place] [address] Shivani Magallon MD 200 [facility] [place] [address] 10/27/2023 8:30 AM EDT Office Visit Sleep Disorders Ctr [facility] 132 [facility] [place] [phone] Lindsey Sheikh CRNP 132 [facility] [place] [address] 10/29/2023 11:30 AM EDT Scheduled Telephone [facility], [facility] [address] [facility] [place] [address] Mery Calderon RDN 1000 [place] [address] 11/11/2023 11:00 AM EDT Telemedicine Pharmacy, [facility] [place] [address] Pharmacist1, [facility] [address] [place] [address] 11/11/2023 11:30 AM EDT Telemedicine Pharmacy, [facility] 200 [facility] [place] [address] Pharmacist1, [facility] [address] [place] [address] [address] 11/20/2023 2:30 PM EDT [facility] Visit [facility], [facility] 132 [facility] [place] [address] Love Stevens, RN [address] [place] [address] 12/31/2023 11:45 AM EDT Hospital Encounter ENDO [facility], Endoscopy Room [facility] [address] [place] [phone] José Miguel Sifuentes MD [address] [place] [address] 12/31/2023 11:45 AM EDT - 12/31/2023 12:15 PM EDT Surgery ENDO [facility], Endoscopy Room [facility] [address] [place] [phone] José Miguel Sifuentes MD [address] [place] [address] COLONOSCOPY FLEXIBLE PROXIMAL DIAGNOSTIC 01/14/2024 12:30 PM EDT Cardiac Studies Cardiac Studies [address] [place] [address] 08/08/2024 9:30 AM EST Nurse Only Ancillary [address] [place] [address] [place], Nurse Annual [address] [place] [address] Scheduled Procedures Name Priority Associated Diagnoses Date/Ti [...] this encounter Medical Devices Implanted Type Area Chemist Water Purification Device Identifier Shelf Expiration Date Model / Serial / Lot Lens Intraoc 21.0 - [id number] - [id number] Implanted:Qty: 1 on 01/22/2017 by Cheko Mcnamara MD at OR [facility] Right: Eye BAUSCH & LOMB 08/05/2021 [id number] / [id number] / [id number] Lens Intraoc 21.5 - [id number] - [id number] Implanted:Qty: 1 on 02/03/2017 by Cheko Mcnamara MD at OR [facility] Left: Eye BAUSCH & LOMB 09/02/2021 [id number] / [id number] / [id number] documented as of this encounter Advance Directives [...] and were consensually agreed upon. Care Teams Graduating Machine Operator Relationship Specialty Start Date End Date Bárbara Rios DO [address] [place] [address] [place] [address] PCP - General Internal Medicine 08/16/21 documented as of this encounter
--- OUTSIDE RECORDS SUMMARY | 2023-10-20 22:52 | External Medical Summary | Summary of Care ---
Author Name Unknown Organization [facility] Address [address] [facility] [place] [address] Phone [phone] Care Team Providers Care Compressed Gas Equipment Mechanic Name Role Phone Bárbara Rios Primary Care Provider [phone] Reason for Visit * Reason Onset Date Comments [facility]: Maintenance 10/12/2023 Encounter Details Date Type Department Care Team (Late st Contact Info) Description 10/12/2023 Telephone [facility], [facility] [address] [facility] [place] [address] [facility], Nurse [facility] [address] [facility] [place] [address] [facility]: Maintenance Allergies Active Allergy [...] 32 UNITS WITH DINNER PLUS CORRECTION PER [facility] OR DIRECTED UP TO 120 [...] Active Evolocumab 140 MG/ML Subcutaneous Solution Auto-injector (Assurzick)Indicatio ns:Dyslipidemia, goal LDL below 100,Mixed dyslipidemia Inject [...] managing provider. 60 Each 0 09/30/2023 Active Ywfyu-8-ruzn Ethyl Esters 1 GM Oral Capsule (Lovaza) [...] yrs 01/04/2018,08/03/2017,07/03 Pneumococcal Conjugate Vacci ne, 20-valent ([id number]) 06/09/2022 Pneumococcal Polysaccharide PPV23 (Pneumovax) 03/06/2020 Seasonal [...] encounter Miscellaneous Notes * Telephone Encounter - Leanne Le LPN - 10/12/2023 11:50 AM EDT Images from the original note were not included. Forwarding to RN for home visit today Leanne Le LPN [facility] 10/12/2023,11:50 AM documented in this encounter Plan of Treatment Upcoming Encounters Date Type Department Care Team (Latest Contact Info) Description 10/12/2023 4:00 PM EDT Home Visit [facility], [facility] [address] [place] [address] Love Stevens, ANNE MARIE 132 [place] [address] 10/13/2023 11:00 AM EDT Scheduled Telephone [facility] [address] [place] [address] Coordinator, [facility] [address] [place] [address] 10/14/2023 12:30 PM EDT Office Visit Family Medicine [address] [place] [address] Bárbara Rios [address] [place] [address] 10/21/2023 2:40 PM EDT Office Visit Nephrology [address] [place] [address] Shivani Magallon MD [address] [place] [address] 10/27/2023 8:30 AM EDT Office Visit Sleep Disorders Ctr [facility] [address] [place] [phone] Lindsey Sheikh CRNP [address] [place] [address] 10/29/2023 11:30 AM EDT Scheduled Telephone [facility], [facility] [address] [facility] [address] Mery Calderon RDN [address] [place] [facility] [place] [address] 11/11/2023 11:00 AM EDT Telemedicine Pharmacy, [facility] [address] [place] [address] Pharmacist1, [facility] 200 [facility] [place] [address] 11/11/2023 11:30 AM EDT Telemedicine Pharmacy, [facility] [address] [place] [address] Pharmacist1, [facility] [address] [place] [address] 11/20/2023 2:30 PM EDT Home Visit [facility], [facility] [address] [place] [address] Love Stevens, ANNE MARIE [address] [place] [address] 12/31/2023 11:45 AM EDT Hospital Encounter ENDO [facility], Endoscopy Room [facility] [address] [place] [phone] José Miguel Sifuentes MD [address] [place] [address] 12/31/2023 11:45 AM EDT - 12/31/2023 12:15 PM EDT Surgery ENDO [facility], Endoscopy Room [facility] [address] [place] [phone] José Miguel Sifuentes MD [address] [place] [address] COLONOSCOPY FLEXIBLE PROXIMAL DIAGNOSTIC 01/14/2024 12:30 PM EDT Cardiac Studies Cardiac Studies [address] [place] [address] 08/08/2024 9:30 AM EST Nurse Only Ancillary [address] [place] [address] [place], Nurse [address] [place] [address] Scheduled Procedures Name Priority Associated Diagnoses Date/Ti [...] ASSESSMENT COMPLETED IN PAST YEAR FOR COPD 10/08/2024 10/09/2023 Arreola's Esophagus Surveilance 06/16/2025 06/16/2022, 06/16/2022, 03/20/2022, [...] this encounter Medical Devices Implanted Type Area Backhaul Driver Device Identifier Shelf Expiration Date Model / Serial / Lot Lens Intraoc 21.0 - [id number] - [id number] Implanted:Qty: 1 on 01/22/2017 by Cheko Mcnamara MD at OR [facility] Right: Eye [employer]OM[employer] 08/05/2021 [id number] / [id number] / [id number] Lens Intraoc 21.5 - [id number] - [id number] Implanted:Qty: 1 on 02/03/2017 by Cheko Mcnamara MD at OR [facility] Left: Eye [employer]USCH [employer] LOMB 09/02/2021 [id number] / [id number] / [id number] documented as of this encounter Advance Directives [...] and were consensually agreed upon. Care Teams Compressed Gas Equipment Mechanic Relationship Specialty Start Date End Date Bárbara Rios DO [address] [place] [address] [place] [address] PCP - General Internal Medicine 08/16/21 documented as of this encounter
--- OUTSIDE RECORDS SUMMARY | 2023-10-20 22:52 | External Medical Summary | Summary of Care ---
Author Name Unknown Organization [facility] Address [address] [facility] [place] [address] Phone [phone] Care Team Providers Care Family Day Care Worker Name Role Phone Bárbara Rios Primary Care Provider [phone] Reason for Visit * Reason Onset Date Comments [facility]: Maintenance 10/07/2023 Encounter Details Date Type Department Care Team (Late st Contact Info) Description 10/07/2023 Telephone [facility], [facility] [address] [facility] [place] [address] [facility], Nurse [facility] [address] [facility] [place] [address] [facility]: Maintenance Allergies Active Allergy [...] 32 UNITS WITH DINNER PLUS CORRECTION PER [facility] OR DIRECTED UP TO 120 [...] Active Evolocumab 140 MG/ML Subcutaneous Solution Auto-injector ([place])Indicatio ns:Dyslipidemia, goal LDL below 100,Mixed dyslipidemia Inject [...] managing provider. 60 Each 0 09/30/2023 Active Wmeei-7-aoar Ethyl Esters 1 GM Oral Capsule (Lovaza) [...] in the Comments) Remote Patient Monitoring Vendor: [facility] Device(s): Connected Scale Self - Management Plan [...] yrs 01/04/2018,08/03/2017,07/03 Pneumococcal Conjugate Vacci ne, 20-valent ([id number]) 06/09/2022 Pneumococcal Polysaccharide PPV23 (Pneumovax) 03/06/2020 Seasonal [...] encounter Miscellaneous Notes * Telephone Encounter - Josh Sullivan MD [...] lbs in 1 day(s) Trigger priority per [facility]: high Patient takes diuretic medication: Yes, reviewed [...] as applicable): [] Moderate trigger priority on [facility] [] Confirmed [...] 90 WITH symptoms Additional risk selection justification: [facility] trigger for 2.6 lb increase in 1 [...] call scheduled Route to RNCM (Registered Nurse Truck Despatcher) and Advance Practitioner Route to C (Remote Medical Coordinator) documented in this encounter Plan of Treatment Upcoming Encounters Date Type Department Care Team (Latest Contact Info) Description 10/08/2023 12:15 PM EDT Scheduled Telephone [facility] [address] [place] [address] Coordinator, [facility] [address] [place] [address] 10/09/2023 4:00 PM EDT Home Visit [facility], [facility] 132 [facility] [place] [address] Love Stevens, RN [address] [facility] [place] [address] 10/14/2023 12:30 PM EDT Office Visit Family Medicine [address] [place] [phone] Bárbara Rios[address] [place] [address] 10/21/2023 2:40 PM EDT Office Visit Nephrology [address] [place] [address] Shivani Magallon MD 200 [facility] [place] [address] 10/27/2023 8:30 AM EDT Office Visit Sleep Disorders Ctr [facility] 132 [facility] [place] [phone] Lindsey Sheikh CRNP [address] [facility] [place] [address] 10/29/2023 11:30 AM EDT Scheduled Telephone [facility], [facility] [address] [facility] [place] [address] Mery Calderon RDN [address] [facility] [place] [address] 11/11/2023 11:00 AM EDT Telemedicine Pharmacy, [facility] [place] [address] [place] [address] Pharmacist1, [facility] 200 [facility] [place] [address] 11/11/2023 11:30 AM EDT [facility], [facility] [address] [place] [address] Pharmacist1, [facility] [address] [place] [address] 12/31/2023 11:45 AM EDT Hospital Encounter ENDO [facility], Endoscopy Room [facility] [address] [place] [phone] José Miguel Sifuentes MD [address] [place] [address] 12/31/2023 11:45 AM EDT - 12/31/2023 12:15 PM EDT Surgery ENDO [facility], Endoscopy Room [facility] [address] [place] [phone] José Miguel Sifuentes MD [address] [place] [address] COLONOSCOPY FLEXIBLE PROXIMAL DIAGNOSTIC 01/14/2024 12:30 PM EDT Cardiac Studies Cardiac Studies [address] [place] [address] 08/08/2024 9:30 AM EST Nurse Only Ancillary [address] [place] [address] [place], Nurse Annual [address] [place] [address] Scheduled Procedures Name Priority Associated Diagnoses Date/Ti [...] this encounter Medical Devices Implanted Type Area Story Editor Device Identifier Shelf Expiration Date Model / Serial / Lot Lens Intraoc 21.0 - [id number] - [id number] Implanted:Qty: 1 on 01/22/2017 by Cheko Mcnamara MD at OR [facility] Right: Eye BAUSCH [employer] LOMB 08/05/2021 [id number] / [id number] / [id number] Lens Intraoc 21.5 - [id number] - [id number] Implanted:Qty: 1 on 02/03/2017 by Cheko Mcnamara MD at [facility] Left: Eye BAUSCH & LOMB 09/02/2021 [id number] / [id number] / [id number] documented as of this encounter Advance Directives [...] and were consensually agreed upon. Care Teams Family Day Care Worker Relationship Specialty Start Date End Date Bárbara Rios DO [address] [place] [address] [place] [address] PCP - General Internal Medicine 08/16/21 documented as of this encounter
--- OUTSIDE RECORDS SUMMARY | 2023-10-20 22:52 | External Medical Summary | Summary of Care ---
Author Name Unknown Organization [facility] Address [address] [facility] [place] [address] Phone [phone] Care Team Providers Care Federal Appellate Law Clerk Name Role Phone Bárbara Rios Primary Care Provider Reason for Visit * Reason Comments [facility]: Maintenance Encounter Details Date Type Department Care Team (Late st Contact Info) Description 10/09/2023 4:00 PM EDT Home Visit [facility], [facility] [address] [facility] [place] [address] Love Stevens, RN [address] [place] [address] Allergies Active Allergy Reactions Criticality Noted Date [...] 32 UNITS WITH DINNER PLUS CORRECTION PER [facility] OR DIRECTED UP TO 120 [...] Active Evolocumab 140 MG/ML Subcutaneous Solution Auto-injector (Classical Connection)Indicatio ns:Dyslipidemia, goal LDL below 100,Mixed dyslipidemia Inject [...] managing provider. 60 Each 0 09/30/2023 Active Slsjw-7-llce Ethyl Esters 1 GM Oral Capsule (Lovaza) [...] in the Comments) Remote Patient Monitoring Vendor: [facility] Device(s): Connected Scale Self - Management Plan [...] yrs 01/04/2018,08/03/2017,07/03 Pneumococcal Conjugate Vacci ne, 20-valent ([id number]) 06/09/2022 Pneumococcal Polysaccharide PPV23 (Pneumovax) 03/06/2020 Seasonal [...] Sign Reading Time Taken Comments Blood Pressure 132/68 10/09/2023 3:19 PM EDT Pulse 70 10/09/2023 3:19 PM EDT Temperature 36.1 C (96.9 F) 10/09/2023 3:19 PM ED T Respiratory Rate 18 10/09/2023 3:19 PM EDT Oxygen Saturation 96% 10/09/2023 3:19 PM EDT Inhaled Oxygen Concentration - - Weight - - Height - - Body Mass Index - - documented in this encounter Progress Notes * Love Stevens RN - 10/09/2023 2:57 PM EDT Images from the original note were not included. [facility] Printing Equipment Mechanic Apprentice Visit Date: 10/09/2023 Time: 2:57 PM Name: Tony Delong : 1960 Current Concerns: Patient seen for follow up- CKD4, CHF, COPD, [place], DM2 Reports overall doing well Weights fluctuate- stable Average blood sugar 182- followed by [facility]. Currently does not have Cindy- new order sent to [facility]. VS wnl Lungs clear but diminished Sob with exertion No LE edema noted Voiding with difficulty Bowels wnl- per report Appetite good Taking fluids well. Problems/Symptoms: Review of Systems Constitutional: Negative. HENT: Negative. Eyes: Negative. Respiratory: Negative. Cardiovascular: Negative. Gastrointestinal: Negative. Genitourinary: Negative. Musculoskeletal: Negative. Skin: Negative. Neurological: Negative. Hematological: Negative. Psychiatric/Behavioral: Negative. Physical Exam: BP 132/68 (BP Site: Left Arm, BP Position: Sitting, BP Cuff Size: Regular) | Pulse 70 | Temp 36.1 C (96.9 F) (Tympanic) | Resp 18 | SpO2 96% Pain 0 Physical Exam Constitutional: Appearance: Normal appearance. Cardiovascular: Rate and Rhythm: Normal rate and regular rhythm. Pulses: Normal pulses. Heart sounds: Normal heart sounds. Pulmonary: Effort: Pulmonary effort is normal. Breath [...] and Affect: Mood normal. Behavior: Behavior normal. [facility] Completed this Visit: No. Routine visit Treatment/Plan: Continue medications as prescribed Keep all upcoming MD appointments Fall precautions Fluids encouraged Low na diet Elevate ble prn edema [facility] scale daily RN CM follow up in 6 weeks. Home Interventions Provided: Reinforced current Plan of Care, including self-management and medication regimen Patient Needs to Remember: Call [facility] with any medical concerns/ red flags Referrals Needed: N/a Follow Up: Is there cellular connectivity/connectivity in the home? Yes Does the patient have internet in the home? Yes Patient encouraged to call the intake phone number for all urgent but not emergent issues. Scheduled to follow up with patient in 6 weeks. Love Du RN 10/09/2023 2:57 PM documented in this encounter Plan of Treatment Upcoming Encounters Date Type Department Care Team (Latest Contact Info) Description 10/13/2023 11:00 AM EDT Scheduled Telephone [facility] [place], [facility] [address] [place] [address] Coordinator, [facility] [address] [place] [address] 10/14/2023 12:30 PM EDT Office Visit Family [address] [place] [phone] Bárbara Rios [address] [place] [address] 10/21/2023 2:40 PM EDT Office Visit Nephrology [address] [place] [address] Shivani Magallon MD [address] [place] [address] 10/27/2023 8:30 AM EDT Office Visit Sleep Disorders Ctr [facility] 132 [facility] [place] [phone] Lindsey Sheikh CRNP 132 [facility] [place] [address] 10/29/2023 11:30 AM EDT Scheduled Telephone [facility], [facility] [address] [facility] [address] Mery Calderon RDN [address] [place] [facility] [place] [address] 11/11/2023 11:00 AM EDT Telemedicine Pharmacy, [facility] 200 [facility] [place] [address] Pharmacist1, [facility] 200 [facility] [place] [address] 11/11/2023 11:30 AM EDT Telemedicine Pharmacy, [facility] 200 [facility] [place] [address] Pharmacist1, [facility] 200 [facility] [place] [address] 11/20/2023 2:30 PM EDT Home Visit [facility], [facility] [address] [place] [address] Love Stevens, RN 132 [facility] [place] [address] 12/31/2023 11:45 AM EDT Hospital Encounter ENDO [facility], Endoscopy Room [facility] [address] [place] [phone] José Miguel Sifuentes MD [address] [place] [address] 12/31/2023 11:45 AM EDT - 12/31/2023 12:15 PM EDT [facility] Room [facility] [address] [place] [phone] José Miguel Sifuentes MD [address] [place] [address] COLONOSCOPY FLEXIBLE PROXIMAL DIAGNOSTIC 01/14/2024 12:30 PM EDT Cardiac Studies Cardiac Studies [address] [place] [address] 08/08/2024 9:30 AM EST Nurse Only Ancillary [address] [place] [address] [place], Nurse Annual [address] [place] [address] Scheduled Procedures Name Priority Associated Diagnoses Date/Ti [...] encounter Medical Devices Implanted Type Area Sales Team Recruiter Device Identifier Shelf Expiration Date Model / Serial / Lot Lens Intraoc 21.0 - [id number] - [id number] Implanted:Qty: 1 on 01/22/2017 by Cheko Mcnamara MD at OR [facility] Right: Eye [employer]USCH [employer] LOMB 08/05/2021 [id number] / [id number] / [id number] Lens Intraoc 21.5 - [id number] - [id number] Implanted:Qty: 1 on 02/03/2017 by Cheko Mcnamara MD at OR [facility] Left: Eye BAUSCH & LOMB 09/02/2021 [id number] / [id number] / [id number] documented as of this encounter Advance Directives [...] and were consensually agreed upon. Care Teams Federal Appellate Law Clerk Relationship Specialty Start Date End Date Bárbara Rios DO [address] [place] [address] [place] [phone] PCP - General Internal Medicine 08/16/21 documented as of this encounter
--- OUTSIDE RECORDS SUMMARY | 2023-10-20 22:52 | External Medical Summary | Summary of Care ---
Author Name Unknown Organization [facility] Address [address] [facility] [place] [address] Phone [phone] Care Team Providers Care Sewing Machine Bobbin Winder Name Role Phone Bárbara Rios Primary Care Provider [phone] Reason for Visit * Reason Onset Date Comments [facility]: Maintenance 10/08/2023 Encounter Details Date Type Department Care Team (Late st Contact Info) Description 10/08/2023 12:15 PM EDT Scheduled Telephone [facility], [facility] [address] [place] [address] Coordinator, [facility] [address] [place] [address] Allergies Active Allergy Reactions Criticality Noted Date Comments Other Allergy (See Comments) Rash Low 10/13/2022 1+ cocamidopropyl betaine Sglt2 Inhibitors Other (Please comment) High 09/04/2020 Genital infection Sulfa Antibiotics Rash 10/15/2016 documented as of this encounter (statuses as of 10/08/2023) Medications Medication Sig Dispensed Refills Start Date [...] 32 UNITS WITH DINNER PLUS CORRECTION PER [facility] OR DIRECTED UP TO [...] Active Evolocumab 140 MG/ML Subcutaneous Solution Auto-injector (IMASTEick)Indicatio ns:Dyslipidemia, goal LDL below 100,Mixed dyslipidemia Inject [...] managing provider. 60 Each 0 09/30/2023 Active Xedca-2-fzai Ethyl Esters 1 GM Oral Capsule (Lovaza) [...] as of this encounter (statuses as of 10/08/2023) Active Problems Problem Noted Date Diagnosed Date [...] in the Comments) Remote Patient Monitoring Vendor: [facility] [place] [facility] Device(s): Connected Scale Self [...] as of this encounter (statuses as of 10/08/2023) Resolved Problems Problem Noted Date Diagnosed Date [...] as of this encounter (statuses as of 10/08/2023) Immunizations Name Administration Dates Next Due COVID-19 mRNA, LNP-s, No Pre serve, 2-Dose Series (Moderna) 12/10/2020,11/12/2020 Hepatitis B, 20+ yrs 01/04/2018,08/03/2017,07/03 Pneumococcal Conjugate Vacci ne, 20-valent (Msmwhjb90) 06/09/2022 Pneumococcal Polysaccharide PPV23 (Pneumovax) 03/06/2020 Seasonal [...] Encounter - Mary Jane Moser RN - 10/08/2023 9:27 AM EDT Images from the original note were not included. [facility] Telephonic Nurse Follow-Up Call [facility] Subprogram: Focused Care Management (3-9 months) Follow Up Call Type: 24 hour follow up Acute issue requiring follow-up call: Remote Patient Monitoring Trigger Objective: 09/11/2023 11:03 AM 09/04/2023 2:02 PM 09/03/2023 1:45 PM 09/03/2023 10:26 AM 08/26/2023 11:50 AM VITALS ACROSS ENCOUNTERS BP 132/66 118/70 158/72 130/70 Pulse 64 76 64 70 Weight 135.6 kg BMI 40.54 BMI 40.54 kg/m2 Remote Patient Monitoring: Oxygen Needs: NO supplemental oxygen needs identified DME Needs: NO DME needs identified Medications: No medication or dose adjustments made during acute episode , Pt requested to hold off on DTP Subjective: Condition Status: utc Current Concerns: UT, message left for callback to [facility] if any new or concerning symptoms Disposition: Issue resolved. All appropriate follow up scheduled. Future Visits Scheduled: Future Appointments-next 60 days Date/Time Provider Specialty Dept Phone 10/08/2023 12:15 PM Coordinator, [facility] [phone] 10/09/2023 4:00 PM Love Stevens RN [facility] [phone] 10/14/2023 12:30 PM (Arrive by 12:15 PM) Bárbara Rios, Family Medicine [phone] 10/21/2023 2:40 PM (Arrive by 2:25 PM) Shivani Magallon MD Nephrology [phone] 10/27/2023 8:30 AM (Arrive by 8:15 AM) Lindsey Sheikh CRNP Sleep Disorders [phone] 10/29/2023 11:30 AM Mery Calderon RDN [facility] [phone] 11/11/2023 11:00 AM Pharmacist1, [facility] [phone] 11/11/2023 11:30 AM Pharmacist1, [facility] [phone] 01/14/2024 12:30 PM [facility] Cardiac Studies [phone] 08/08/2024 9:30 AM Osito Nurse Annual Wellness Ancillary [phone] Mary Jane Moser, RN documented in this encounter Plan of Treatment Upcoming Encounters Date Type Department Care Team (Latest Contact Info) Description 10/09/2023 4:00 PM EDT Home Visit [facility], [facility] [address] [facility] [place] [address] Love Stevens, RN 132 [facility] [place] [address] 10/14/2023 12:30 PM EDT Office Visit Family Medicine [address] [place] [phone] Bárbara Rios[address] [place] [address] 10/21/2023 2:40 PM EDT Office Visit Nephrology [address] [place] [address] Shivani Magallon MD 200 [facility] [place], [place] [address] 10/27/2023 8:30 AM EDT Office Visit Sleep Disorders Ctr Maximiliano V[facility], [place] [address] [place] [phone] Lindsey Sheikh CRNP [address] [place] [address] 10/29/2023 11:30 AM EDT Scheduled Telephone [facility], [place] [address] [facility] [place] [address] Mery Calderon, RDN [address] [facility] [place] [address] 11/11/2023 11:00 AM EDT Telemedicine Pharmacy, [facility] [address] [place] [address] Pharmacist1, [facility] [address] [place] [address] 11/11/2023 11:30 AM EDT Telemedicine Pharmacy, [facility] [address] [place] [address] Pharmacist1, [facility] [address] [place] [address] 12/31/2023 11:45 AM EDT Hospital Encounter ENDO [facility], Endoscopy Room [facility] [address] [phone] José Miguel Sifuentes MD [address] [place] [address] 12/31/2023 11:45 AM EDT - 12/31/2023 12:15 PM EDT Surgery ENDO [facility], Endoscopy Room [facility] 132 [place] [phone] José Miguel Sifuentes MD [address] [place] [address] COLONOSCOPY FLEXIBLE PROXIMAL DIAGNOSTIC 01/14/2024 12:30 PM EDT Cardiac Studies Cardiac Studies [address] [place] [address] 08/08/2024 9:30 AM EST Nurse Only Ancillary [address] [place] [address] [place], Nurse Annual [address] [place] [address] Scheduled Procedures Name Priority Associated Diagnoses Date/Ti [...] this encounter Medical Devices Implanted Type Area Fountain Helper Device Identifier Shelf Expiration Date Model / Serial / Lot Lens Intraoc 21.0 - [id number] - [id number] Implanted:Qty: 1 on 01/22/2017 by Cheko Mcnamara MD at OR [facility] Right: Eye BAUSCH & LOMB 08/05/2021 [id number] / [id number] / [id number] Lens Intraoc 21.5 - [id number] - [id number] Implanted:Qty: 1 on 02/03/2017 by Cheko Mcnamara MD at OR [facility] Left: Eye BAUSCH & LOMB 09/02/2021 [id number] / [id number] / [id number] documented as of this encounter Advance Directives [...] and were consensually agreed upon. Care Teams Sewing Machine Bobbin Winder Relationship Specialty Start Date End Date Bárbara Rios DO [address] [place] [address] [place] [address] PCP - General Internal Medicine 08/16/21 documented as of this encounter
--- OUTSIDE RECORDS SUMMARY | 2023-10-20 22:52 | External Medical Summary | Summary of Care ---
Author Name Unknown Organization [facility] Address [address] [facility] [place] [address] Phone [phone] Care Team Providers Care Downstream Biomanufacturing Technician Name Role Phone Bárbara Rios Primary Care Provider [phone] Reason for Visit * Reason Onset Date Comments [facility]: Maintenance 10/07/2023 Encounter Details Date Type Department Care Team (Late st Contact Info) Description 10/07/2023 Telephone [facility], [facility] [address] [facility] [place] [address] [facility], Nurse [facility] [address] [place] [address] [facility]: Maintenance Allergies Active Allergy [...] 32 UNITS WITH DINNER PLUS CORRECTION PER [facility] OR DIRECTED UP TO [...] Active Evolocumab 140 MG/ML Subcutaneous Solution Auto-injector ([employer])Indicatio ns:Dyslipidemia, goal LDL below 100,Mixed dyslipidemia Inject [...] managing provider. 60 Each 0 09/30/2023 Active Gurth-2-ayyr Ethyl Esters 1 GM Oral Capsule (Lovaza) [...] or up the stairs") Medication Regimen: Beta Rtichie Therapy: Carvedilol ARIANNA Inhibitor/ARB Therapy: Lisinopril Diuretic [...] yrs 01/04/2018,08/03/2017,07/03 Pneumococcal Conjugate Vacci ne, 20-valent (Pnralef50) 06/09/2022 Pneumococcal Polysaccharide PPV23 (Pneumovax) 03/06/2020 Seasonal [...] lbs in 1 day(s) Trigger priority per [facility]: high Patient takes diuretic medication: Yes, reviewed [...] 90 WITH symptoms Additional risk selection justification: [facility] trigger for 2.6 lb increase in 1 [...] call scheduled Route to RNCM (Registered Nurse Used Car Renovator) and Advance Practitioner Route to RMC (Remote Medical Coordinator) documented in this encounter Plan of Treatment Upcoming Encounters Date Type Department Care Team (Latest Contact Info) Description 10/08/2023 12:15 PM EDT Scheduled Telephone [facility] [place], [facility] [address] [place] [address] Coordinator, [facility] [address] [place] [address] 10/09/2023 4:00 PM EDT Home Visit [facility] [address] [place] [address] Love Stevens RN [address] [place] [address] 10/14/2023 12:30 PM EDT Office Visit Family Medicine [address] [place] [phone] Bárbara Rios[address] [place] [address] 10/21/2023 2:40 PM EDT Office Visit Nephrology [address] [place] [address] Shivani Magallon MD [address] [place] [address] 10/27/2023 8:30 AM EDT Office Visit Sleep Disorders Ctr [facility] [address] [place] [phone] Lindsey Sheikh CRNP [address] [place] [address] 10/29/2023 11:30 AM EDT Scheduled Telephone [facility], [facility] [address] [facility] [place] [address] Mery Calderon, VIVIANAN [address] [facility] [address] 11/11/2023 11:00 AM EDT Telemedicine Pharmacy, [facility] [address] [place] [address] Pharmacist1, [facility] [address] [place] [address] 11/11/2023 11:30 AM EDT Telemedicine Pharmacy, [facility] [address] [place] [address] Pharmacist1, [facility] [address] [place] [address] 12/31/2023 11:45 AM EDT Hospital Encounter ENDO [facility], Endoscopy Room [facility] [address] [place] [address] José Miguel Sifuentes MD [address] [place] [address] 12/31/2023 11:45 AM EDT - 12/31/2023 12:15 PM EDT [facility] [address] [place] [phone] José Miguel Sifuentes MD [address] [place] [address] COLONOSCOPY FLEXIBLE PROXIMAL DIAGNOSTIC 01/14/2024 12:30 PM EDT Cardiac Studies Cardiac Studies [address] [place] [address] 08/08/2024 9:30 AM EST Nurse Only Ancillary [address] [place] [address] [place], Nurse Annual [address] [place] [address] Scheduled Procedures Name Priority Associated Diagnoses Date/Ti [...] this encounter Medical Devices Implanted Type Area Center Lead Consultant Device Identifier Shelf Expiration Date Model / Serial / Lot Lens Intraoc 21.0 - [id number] - [id number] Implanted:Qty: 1 on 01/22/2017 by Cheko Mcnamara MD at OR [facility] Right: Eye BAUSCH & LOMB 08/05/2021 [id number] / [id number] / [id number] Lens Intraoc 21.5 - [id number] - [id number] Implanted:Qty: 1 on 02/03/2017 by Cheko Mcnamara MD at OR [facility] Left: Eye BAUSCH & LOMB 09/02/2021 [id number] / [id number] / [id number] documented as of this encounter Advance Directives [...] and were consensually agreed upon. Care Teams Downstream Biomanufacturing Technician Relationship Specialty Start Date End Date Bárbara Rios DO [address] [place] [address] [place] [phone] PCP - General Internal Medicine 08/16/21 documented as of this encounter
--- OUTSIDE RECORDS SUMMARY | 2023-10-20 22:52 | External Medical Summary | Summary of Care ---
Author Name Unknown Organization [facility] Address [address] [facility] [place] [address] Phone [phone] Care Team Providers Care Singer Songwriter Name Role Phone Bárbara Rios Primary Care Provider [phone] Encounter Details Date Type Department Care Team (Late st Contact Info) Description 10/01/2023 Population Health External Data Unspecified Department Allergies Active Allergy Reactions Criticality Noted Date Comments Other Allergy (See Comments) Rash Low 10/13/2022 1+ cocamidopropyl betaine Sglt2 Inhibitors Other (Please comment) High 09/04/2020 Genital infection Sulfa Antibiotics Rash 10/15/2016 documented as of this encounter (statuses as of 10/06/2023) Medications Medication Sig Dispensed Refills Start Date [...] 32 UNITS WITH DINNER PLUS CORRECTION PER [facility] OR DIRECTED UP TO 120 [...] managing provider. 60 Each 0 09/30/2023 Active Hospital, Clinic, or Other Facility Administered [...] as of this encounter (statuses as of 10/06/2023) Active Problems Problem Noted Date Diagnosed Date [...] in the Comments) Remote Patient Monitoring Vendor: [facility] Device(s): Connected Scale Self - Management Plan [...] Continues on lovaza 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 [employer] History of tobacco use 08/18/2017 [place] on [...] as of this encounter (statuses as of 10/06/2023) Resolved Problems Problem Noted Date Diagnosed Date [...] as of this encounter (statuses as of 10/06/2023) Immunizations Name Administration Dates Next Due COVID-19 mRNA, LNP-s, No Pre serve, 2-Dose Series (Moderna) 12/10/2020,11/12/2020 Hepatitis B, 20+ yrs 01/04/2018,08/03/2017,07/03 Pneumococcal Conjugate Vacci ne, 20-valent (Mnjhojr64) 06/09/2022 Pneumococcal Polysaccharide PPV23 (Pneumovax) 03/06/2020 Seasonal [...] Visit [facility], [facility] [address] [place] [address] Love Stevens RN [address] [place] [address] 10/14/2023 12:30 PM EDT Office Visit Family Medicine [address] [place] [address] Bárbara Rios[address] [place] [address] 10/21/2023 2:40 PM EDT Office Visit Nephrology [address] [place] [address] Shivani Magallon MD 200 [facility] [place] [address] 10/27/2023 8:30 AM EDT Office Visit Sleep Disorders Ctr [facility] [address] [place] [address] Lindsey Sheikh CRNP 132 [facility] [place] [address] 10/29/2023 11:30 AM EDT Scheduled Telephone [facility], [facility] 1000 [address] [facility] [place] [address] Mery Calderon RDN [address] [facility] [place] [address] 11/11/2023 11:00 AM EDT Telemedicine Pharmacy, [facility] [place] [address] [place] [address] [address] [address] Pharmacist1, [facility] [address] [place] [address] [address] 11/11/2023 11:30 AM EDT Telemedicine Pharmacy, [facility] [address] [address] Pharmacist1, [facility] [address] [place] [address] 12/31/2023 11:45 AM EDT Hospital Encounter ENDO [facility], Endoscopy Room [facility] [address] [place], [place] [phone] José Miguel Sifuentes MD [address] [place] [address] 12/31/2023 11:45 AM EDT - 12/31/2023 12:15 PM EDT Surgery ENDO [facility], Endoscopy Room [facility] [address] [place] [place] [phone] José Miguel Sifuentes MD [address] [place] [address] COLONOSCOPY FLEXIBLE PROXIMAL DIAGNOSTIC 01/14/2024 12:30 PM EDT Cardiac Studies Cardiac Studies [address] [place] [address] 08/08/2024 9:30 AM EST Nurse Only Ancillary [address] [place] [address] [place], Nurse Annual [address] [place] [address] Scheduled Procedures Name Priority Associated Diagnoses Date/Ti [...] encounter Medical Devices Implanted Type Area Sand And Gravel Plant Operator Device Identifier Shelf Expiration Date Model / Serial / Lot Lens Intraoc 21.0 - [id number] - [id number] Implanted:Qty: 1 on 01/22/2017 by Cheko Mcnamara MD at OR [facility] Right: Eye BAUSCH & LOMB 08/05/2021 [id number] / [id number] / [id number] Lens Intraoc 21.5 - [id number] - [id number] Implanted:Qty: 1 on 02/03/2017 by Cheko Mcnamara MD at OR [facility] Left: Eye BAUSCH & LOMB 09/02/2021 [id number] / [id number] / [id number] documented as of this encounter Advance Directives [...] and were consensually agreed upon. Care Teams Singer Songwriter Relationship Specialty Start Date End Date Bárbara Rios DO [address] [place] [address] [place] [address] PCP - General Internal Medicine 08/16/21 documented as of this encounter
--- OUTSIDE RECORDS SUMMARY | 2023-10-20 22:52 | External Medical Summary | Summary of Care ---
Author Name Unknown Organization [facility] Address [address] [facility] [place] [address] Phone [phone] Care Team Providers Care Quarter Folder Name Role Phone Bárbara Rios Primary Care Provider [phone] Reason for Visit * Reason Onset Date Comments [facility]: Acute 10/12/2023 Encounter Details Date Type Department Care Team (Late st Contact Info) Description 10/12/2023 Telephone [facility], [facility] 132 [facility] [place] [address] [facility], Nurse [facility] 132 [facility] [place] [address] [facility]: Acute Allergies Active Allergy [...] UNITS WITH DINNER PLUS CORRECTION PER [facility] OR DIRECTED UP TO [...] Active Evolocumab 140 MG/ML Subcutaneous Solution Auto-injector ([employer])Indicatio ns:Dyslipidemia, goal LDL below 100,Mixed dyslipidemia Inject [...] managing provider. 60 Each 0 09/30/2023 Active Xnptg-1-nzoe Ethyl Esters 1 GM Oral Capsule (Lovaza) [...] in the Comments) Remote Patient Monitoring Vendor: [facility] Device(s): Connected Scale Self [...] yrs 01/04/2018,08/03/2017,07/03 Pneumococcal Conjugate Vacci ne, 20-valent (Mlzjgew84) 06/09/2022 Pneumococcal Polysaccharide PPV23 (Pneumovax) 03/06/2020 Seasonal [...] 4pm visit today Violette Moser RN, BSN [facility] Intake Triage Coordinator [phone] * Telephone Encounter - Chilango Trujillo MD - 10/12/2023 9:15 AM EDT Agree with recommendations as written in note. Will follow today's home visit. E * Telephone Encounter - Mary Jane Moser RN - 10/12/2023 8:55 AM EDT Images from the original note were not included. 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 centerless Acute Call Date: 10/12/2023 Time: 8:55 AM Name: Tony Delong : 1960 Caller: patient Relationship to Chief Complaint Patient presents with [facility]: Acute HPI: Tony Delong is a 63 year old male who is calling [facility] Intake to report he has [...] level Follow up calls set Routed to [facility] [place] for any additional orders/recommendations Treatment/Plan: Level of call: Acute Appointment scheduled for same day: Yes, Patient has 4pm RNCM visit set for today Treatment plan until appointment: Cont DTP of Double Torsemide x 3 days Violette Moser RN, BSN [facility] Intake Triage Coordinator [phone] Call back instructions provided to patient. documented in this encounter Plan of Treatment Upcoming Encounters Date Type Department Care Team (Latest Contact Info) Description 10/12/2023 4:00 PM EDT [facility] [address] [place] [address] Love Stevens RN 132 [place] [address] 10/13/2023 11:00 AM EDT Scheduled Telephone [facility] [address] [place] [address] Coordinator, [facility] [address] [place] [address] 10/14/2023 12:30 PM EDT Office Visit Family Medicine [address] [place] [address] Bárbara Rios[address] [place] [address] 10/21/2023 2:40 PM EDT Office Visit Nephrology [address] [place] [address] Shivani Magallon MD 200 [facility] [place] [address] 10/27/2023 8:30 AM EDT Office Visit Sleep Disorders Ctr Maxim[facility]iano [facility] 132 [facility] [place] [phone] Lindsey Sheikh CRNP 132 [facility] [place] [address] 10/29/2023 11:30 AM EDT Scheduled Telephone [facility], [facility] [address] [facility] [place] [address] Mery Calderon RDN 1000 [address] [facility] [place] [address] 11/11/2023 11:00 AM EDT Telemedicine Pharmacy, [facility] [place] [address] [place] [address] Pharmacist1, [facility] [address] [place] [address] 11/11/2023 11:30 AM EDT Telemedicine Pharmacy, [facility] [place] [address] [place] [address] Pharmacist1, [facility] [address] [place] [address] 11/20/2023 2:30 PM EDT Home Visit [facility], [facility] [address] [place] [address] Love Stevens, RN [address] [place] [address] 12/31/2023 11:45 AM EDT Hospital Encounter ENDO [facility], Endoscopy Room [facility] [address] [place] [phone] José Miguel Sifuentes MD [address] [place] [address] 12/31/2023 11:45 AM EDT - 12/31/2023 12:15 PM EDT Surgery ENDO [facility], Endoscopy Room [facility] [address] [place] [phone] José Miguel Sifuentes MD [address] [place] [address] COLONOSCOPY FLEXIBLE PROXIMAL DIAGNOSTIC 01/14/2024 12:30 PM EDT Cardiac Studies Cardiac Studies [address] [place] [address] 08/08/2024 9:30 AM EST Nurse Only Ancillary [address] [place] [address] [place], Nurse Annual [address] [place] [address] Scheduled Procedures Name Priority Associated Diagnoses Date/Ti [...] this encounter Medical Devices Implanted Type Area Equipment Engineer Device Identifier Shelf Expiration Date Model / Serial / Lot Lens Intraoc 21.0 - [id number] - [id number] Implanted:Qty: 1 on 01/22/2017 by Cheko Mcnamara MD at OR [facility] Right: Eye BAUSCH & LOMB 08/05/2021 [id number] / [id number] / [id number] Lens Intraoc 21.5 - [id number] - [id number] Implanted:Qty: 1 on 02/03/2017 by Cheko Mcnamara MD at OR [facility] Left: Eye BAUSCH & LOMB 09/02/2021 [id number] / [id number] / [id number] documented as of this encounter Advance Directives [...] and were consensually agreed upon. Care Teams Quarter Folder Relationship Specialty Start Date End Date Bárbara Rios DO [address] [place] [address] [place] [phone] PCP - General Internal Medicine 08/16/21 documented as of this encounter
--- OUTSIDE RECORDS SUMMARY | 2023-10-20 22:53 | External Medical Summary | Summary of Care ---
Author Name Unknown Organization [facility] Address [address] [facility] [place] [address] Phone [phone] Care Team Providers Care Oracle Drm Consultant Name Role Phone Bárbara Rios Primary Care Provider [phone] Reason for Visit * Reason Comments Diabetes Follow-Up Dosage Adjustment Via Phone (anticoag Cl inic) Encounter Details Date Type Department Care Team (Late st Contact Info) Description 09/16/2023 11:00 AM EDT Telemedicine Pharmacy, [facility] [address] [facility] [place] [address] Pharmacist1, [facility] [address] [facility] [place] [address] Type 2 diabetes mellitus with hemoglobin A1c goal of less than 8.0% ([facility])* Allergies Active Allergy Reactions Criticality Noted Date Comments Other Allergy (See Comments) Rash Low 10/13/2022 1+ cocamidopropyl betaine Sglt2 Inhibitors Other (Please comment) High 09/04/2020 Genital infection Sulfa Antibiotics Rash 10/15/2016 documented as of this encounter (statuses as of 09/16/2023) Medications Medication Sig Dispensed Refills Start Date [...] daily - E11.9,Indications: diabetes, Reported on 07/14/2022 OneTouch Verio In Vitro Strip (Glucose Blood)Indications:U ncontrolled type 2 diabetes mellitus with hyperglycemia (HCC) USE TO TEST BLOOD GLUCOSE 3 TIMES A DAY. DX: E11.9 300 Strip 3 09/06/2021 Active Additional Information Patient taking differently: USE TO TEST BLOOD GLUCOSE 3 TIMES A DAY. DX: E11.9, Indications: diabetes, Reported on 07/14/2022 FreeStyle Cindy 2 [...] 32 UNITS WITH DINNER PLUS CORRECTION PER [facility] OR DIRECTED UP TO 120 UNITS PER DAY 120 mL 3 12/18/2022 4 Active metOLazone 2.5 MG Oral Tablet (Zaroxolyn) ON HOLD as of 01/21. Take 1 tablet by mouth on twice a week on non-consecutive days, 30 minutes prior to torsemide. 30 Tablet 0 01/26/2023 Active DIURETIC TITRATION PLAN If no improvement on day 3, contact heart failure managing provider. 60 Each 0 02/11/2023 4 Active BD Pen Needle Short U/F 31G [...] a week. 9 mL 3 04/09/2023 Active Jigsd-5-gumo Ethyl Esters 1 GM Oral Capsule (Lovaza) Take 2 Capsules by mouth in the morning and 2 Capsules before bedtime. 360 Capsule 1 04/14/2023 Active Carvedilol 25 MG Oral Tablet (Coreg)Indications: [...] the afternoon. 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 315 Tablet 3 09/08/2023 Active Potassium Chloride Gaviota ER 10 MEQ Oral Tablet Extended ReleaseIndications: 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) Take 1 Tablet by mouth in the morning and 1 Tablet before bedtime. 180 Tablet 3 09/08/2023 Active Hospital, Clinic, or Other Facility Administered [...] as of this encounter (statuses as of 09/16/2023) Active Problems Problem Noted Date Diagnosed Date [...] in the Comments) Remote Patient Monitoring Vendor: [employer] Device(s): Connected Scale Self - Management Plan [...] as of this encounter (statuses as of 09/16/2023) Resolved Problems Problem Noted Date Diagnosed Date [...] as of this encounter (statuses as of 09/16/2023) Immunizations Name Administration Dates Next Due COVID-19 mRNA, LNP-s, No Pre serve, 2-Dose Series (Moderna) 12/10/2020,11/12/2020 Hepatitis B, 20+ yrs 01/04/2018,08/03/2017,07/03 Pneumococcal Conjugate Vacci ne, 20-valent ([id number]) 06/09/2022 Pneumococcal Polysaccharide PPV23 (Pneumovax) 03/06/2020 Seasonal [...] as of this encounter Progress Notes * Adrián Hines [facility] - 09/16/2023 10:50 AM EDT Images from the original note were not included. Medication Therapy Disease Management Clinic - Diabetes Management Progress Note Patient Phone Numbers After connecting to the patient via telephone, the patient was identified by name and date of . Patient was then informed that this was a telephone call only visit. The patient agreed to participate. Visit Disposition: Routine follow-up Total call duration was 9 minutes. DIABETES: Current diabetic medications: Ozempic 2mg weekly - patient assistance Tresiba (U200) 100 units twice daily Novolog 26 units with breakfast, 26 units with lunch, 32 units with dinner + CF 1:15 over 150 (new sheet given to patient) Medication Injection Site: Abdomen and Thigh Lifestyle: Diet: improved. He has been eating less recently. History of Treatment Barriers: Lifestyle: None Therapy considerations: None Medication: Metformin IR - ECHO Glucose Review/SMBG: Readings obtained from patient device Hypoglycemia: Does your blood sugar go below 70 mg/dL? Yes, late afternoon occasionally. Overnight lows are from sleeping on sensor. Hyperglycemia symptoms present: none Goal <8 Recent Labs Units 06/11/23 1111 04/01/23 1531 12/17/22 1438 HEMOGLOBIN A1C - [facility] % 8.2* 7.2* 9.4* Recent Labs Units 09/02/23 1320 08/24/23 1421 07/29/23 1409 ESTIMATED GLOMERULAR FILTRATION RATE - [facility] mL/min 42* 29* 32* CREATININE - [facility] mg/dL 1.8* 2.5* 2.2* Lab Results Component Value Date/Time CREATININE - [facility] 1.8 (H) 09/02/2023 01:20 PM CREATININE - [facility] 2.5 (H) 08/24/2023 02:21 PM CREATININE - [facility] 2.2 (H) 07/29/2023 02:09 PM CREATININE - [facility] 0.9 09/08/2017 08:00 AM CREATININE RANDY - [facility] 25 11/06/2021 12:16 PM CREATININE RANDY - [facility] 25 11/06/2021 12:16 PM CREATININE, RANDOM URINE - [facility] 122 06/11/2023 11:11 AM CREATININE, RANDOM URINE - [facility] 67 09/22/2022 02:49 PM CREATININE, RANDOM URINE - [facility] 34 09/02/2022 12:37 PM CREATININE-OUTSIDE LAB 2.96 (A) 01/31/2023 12:00 AM CREATININE-OUTSIDE LAB 1.91 (A) 03/29/2022 12:00 AM CREATININE-OUTSIDE LAB 0.92 01/09/2020 12:00 AM HYPERTENSION: Patient on ACEi/ARB: yes, Lisinopril 20mg daily BP Readings from Last 3 Encounters: 09/11/23 132/66 09/04/23 118/70 09/03/23 158/72 Blood pressure at goal: yes HYPERLIPIDEMIA: Patient is taking moderate or high intensity statin: No, Fenofibrate 54mg daily, Repatha 140mg every 2 weeks HEALTH MAINTENANCE REVIEW: Health Maintenance Due Topic Date Due HIV Screening Never done Alpha-1 Antitrypsin Never done COLONOSCOPY-EVERY 5 YRS AGES 18-100 01/01/2023 COVID-19 Vaccine (3 - 2022- season) 2023 Diabetic Foot Exam 09/02/2023 ASSESSMENT & PLAN: ICD-10-CM 1. Type 2 diabetes mellitus with hemoglobin A1c goal of less than 8.0% ([facility]) E11.9 BG Readings - Blood sugars controlled. His intake is decreased some Medications - Reviewed current regimen, patient is adherent to regimen. Diet, Exercise, Lifestyle - see above, decreased intake . Discussed with patient today. Patient is agreeable to wear Cindy CGM. Patient aware to contact clinic if any hypoglycemia before next visit. MEDICATION CHANGES: no change Diabetic Medications: Ozempic 2mg weekly - patient assistance Tresiba (U200) 100 units twice daily Novolog 26 units with breakfast, 26 units with lunch, 32 units with dinner + CF 1:15 over 150 (new sheet given to patient) HEALTH MAINTENANCE INTERVENTIONS: Labs: Up to Date Immunizations: Up to Date Foot Exam: needs completed Eye Exam: Up to Date Annual Wellness Visit: Up to Date FOLLOW UP: Return to clinic in 8 weeks 11/11/2023 Adrián Ramirez RPh, CACP, CDE Clinical Pharmacist Medication Therapy Management Clinic 09/16/2023 10:50 AM documented in this encounter Plan of Treatment Upcoming Encounters Date Type Department Care Team (Latest Contact Info) Description 09/29/2023 12:30 PM EDT Scheduled Telephone [facility], [facility] [address] [facility] [place] [address] Mery Calderon RDN [address] [facility] [place] [address] 10/06/2023 2:10 PM EDT Office Visit Family Medicine [address] [place] [address] Bárbara Rios[address] [place] [address] 10/09/2023 2:30 PM EDT Home Visit [facility], [facility] [address] [place] [address] Love Stevens, RN [address] [facility] [place] [address] 10/21/2023 2:40 PM EDT Office Visit Nephrology [address] [place] [address] Shivani Magallon MD [address] [place] [address] 10/27/2023 8:30 AM EDT Office Visit Sleep Disorders Ctr [facility] [place] [address] [place] [phone] Lindsey Sheikh CRNP [address] [place] [address] 11/11/2023 11:00 AM EDT Telemedicine Pharmacy, [facility] [place] [address] [place] [address] Pharmacist1, [facility] [address] [place] [address] 11/11/2023 11:30 AM EDT Telemedicine Pharmacy, [facility] [place] [address] [place] [address] Pharmacist1, [facility] [address] [place] [address] 12/31/2023 11:45 AM EDT Hospital Encounter ENDO OSSC, Endoscopy Room [facility] [address] [place] [phone] José Miguel Sifuentes MD [address] [place] [address] 12/31/2023 11:45 AM EDT - 12/31/2023 12:15 PM EDT Surgery ENDO OSSC, Endoscopy Room [facility] [address] [place] [phone] José Miguel Sifuentes MD [address] [place] [address] COLONOSCOPY FLEXIBLE PROXIMAL DIAGNOSTIC 01/14/2024 12:30 PM EDT Cardiac Studies Cardiac Studies [address] [place] [address] 08/08/2024 9:30 AM EST Nurse Only Ancillary [address] [place] [address] [place], Nurse Annual [address] [place] [address] Scheduled Procedures Name Priority Associated Diagnoses Date/Ti [...] this encounter Medical Devices Implanted Type Area Biochemistry Professor Device Identifier Shelf Expiration Date Model / Serial / Lot Lens Intraoc 21.0 - [id number] - [id number] Implanted:Qty: 1 on 01/22/2017 by Cheko Mcnamara MD at OR [facility] Right: Eye [employer]OMB 08/05/2021 [id number] / [id number] / [id number] Lens Intraoc 21.5 - [id number] - [id number] Implanted:Qty: 1 on 02/03/2017 by Cheko Mcnamara MD at OR [facility] Left: Eye [employer]CH [employer] LOMB 09/02/2021 [id number] / [id number] / [id number] documented as of this encounter Visit Diagnoses Diagnosis Type 2 diabetes mellitus with hemoglobin A1c goal of less than 8.0% (HCC)- Primary Special screening for malignant neoplasms, colon documented [...] and were consensually agreed upon. Care Teams Oracle Drm Consultant Relationship Specialty Start Date End Date Bárbara Rios DO [address] [place] [address] [place] [phone] PCP - General Internal Medicine 08/16/21 documented as of this encounter
--- OUTSIDE RECORDS SUMMARY | 2023-10-20 22:53 | External Medical Summary | Summary of Care ---
Author Name Unknown Organization [facility] Address [address] [facility] [place] [address] Phone [phone] Care Team Providers Care Box Toe Flanger Stitchdowns Name Role Phone Bárbara Rios Primary Care Provider [phone] Reason for Visit * Reason Onset Date Comments [facility]: Maintenance 10/02/2023 Encounter Details Date Type Department Care Team (Late st Contact Info) Description 10/02/2023 9:00 AM EDT Scheduled Telephone [facility], [facility] [address] [place] [address] Coordinator, [facility] [address] [place] [address] Allergies Active Allergy Reactions Criticality Noted Date Comments Other Allergy (See Comments) Rash Low 10/13/2022 1+ cocamidopropyl betaine Sglt2 Inhibitors Other (Please comment) High 09/04/2020 Genital infection Sulfa Antibiotics Rash 10/15/2016 documented as of this encounter (statuses as of 10/02/2023) Medications Medication Sig Dispensed Refills Start Date [...] 32 UNITS WITH DINNER PLUS CORRECTION PER [facility] OR DIRECTED UP TO 120 [...] a week. 9 mL 3 04/09/2023 Active Jmvud-2-gerg Ethyl Esters 1 GM Oral Capsule (Lovaza) [...] Evolocumab 140 MG/ML Subcutaneous Solution Auto-injector (Repatha ComptTIAClick)Indicatio ns:Dyslipidemia, goal LDL below 100,Mixed dyslipidemia Inject [...] as of this encounter (statuses as of 10/02/2023) Active Problems Problem Noted Date Diagnosed Date [...] in the Comments) Remote Patient Monitoring Vendor: [facility] Device(s): [...] as of this encounter (statuses as of 10/02/2023) Resolved Problems Problem Noted Date Diagnosed Date [...] as of this encounter (statuses as of 10/02/2023) Immunizations Name Administration Dates Next Due COVID-19 mRNA, LNP-s, No Pre serve, 2-Dose Series (Moderna) 12/10/2020,11/12/2020 Hepatitis B, 20+ yrs 01/04/2018,08/03/2017,07/03 Pneumococcal Conjugate Vacci ne, 20-valent ([id number]) 06/09/2022 Pneumococcal Polysaccharide PPV23 (Pneumovax) 03/06/2020 Seasonal [...] Telephone Encounter - Jaja Benedict RN - 10/02/2023 9:13 AM EDT Images from the original note were not included. [facility] Follow-Up Call [facility] Subprogram: Focused Care Management (3-9 months) Follow Up Call Type: 48 hour follow up Acute issue requiring follow-up call: Heart Failure Exacerbation Objective: 09/11/2023 11:03 AM 09/04/2023 2:02 PM 09/03/2023 1:45 PM 09/03/2023 10:26 AM 08/26/2023 11:50 AM VITALS ACROSS ENCOUNTERS BP 132/66 118/70 158/72 130/70 Pulse 64 76 64 70 Weight 135.6 kg BMI 40.54 BMI 40.54 kg/m2 Remote Patient Monitoring: [facility] [place] [place] Scale: see below Medications: Current DTP: Double dose of Torsemide for 3 days Avoid excessive fluid intake and avoid salty, processed food Weigh daily Subjective: Condition Status: Improvement in symptoms but not at baseline Current Concerns: Spoke with Tony. Wt up slightly today to 291.5 lbs. Up 2.4 lbs from yesterday. Denies drinking excess fluid or eating salty foods or snacks. States the breathing is a "little bit heavier today, but not too bad. I can get around and do things." Only did one day of DTP this week and weight returned to baseline, so he plans to start DTP today. Discussed follow up calls. Pt requests no follow up calls over weekend, but will call if feeling more sob or having any problems. Will route to weekend nurse to check [facility] weights on weekend and call as needed. Added phone call just as a reminder to follow up on wts. Disposition: Routed to [facility] and/or [facility] Care Team for further advice Reinforced HF education: Reviewed HF symptom monitoring: -Weigh self daily in am, post-void and record -Do not add salt to food, avoid foods high in sodium -Limit fluids to 2 liters per day -Report the following: ->2 lb weight gain in one day or 5 lbs in a week to PCP -increased edema in feet, abdomen or hands -increased SOB and cough, especially if at night -increased fatigue or vertigo Future Visits Scheduled: Future Appointments-next 60 days Date/Time Provider Specialty Dept Phone 10/06/2023 2:10 PM (Arrive by 1:55 PM) Bárbara Rios DO Family Medicine [phone] 10/09/2023 4:00 PM Love Stevens, ANNE MARIE [facility] [phone] 10/21/2023 2:40 PM (Arrive by 2:25 PM) Shivani Magallon MD Nephrology [phone] 10/27/2023 8:30 AM (Arrive by 8:15 AM) Lindsey Sheikh CRNP Sleep Disorders [phone] 10/29/2023 11:30 AM Mery Calderon RDN [facility] [phone] 11/11/2023 11:00 AM Pharmacist1, [facility] [phone] 11/11/2023 11:30 AM Pharmacist1, [facility] [phone] 01/14/2024 12:30 PM [facility] Cardiac Studies [phone] 08/08/2024 9:30 AM Nurse Osito Annual Wellness Ancillary [phone] Jaja Benedict RN documented in this encounter Plan of Treatment Upcoming Encounters Date Type Department Care Team (Latest Contact Info) Description 10/03/2023 12:40 PM EDT Scheduled Telephone [facility], [facility] [address] [facility] [place] [address] [facility], Nurse [facility] [address] [place] [address] 10/06/2023 2:10 PM EDT Office Visit Family Medicine [address] [place] [phone] Bárbara Rios[address] [place] [address] 10/09/2023 4:00 PM EDT Home Visit [facility], [facility] [address] [facility] [place] [address] Love Stevens RN 132 [facility] [place] [address] 10/21/2023 2:40 PM EDT Office Visit Nephrology [address] [place] [address] Shivani Magallon MD 200 [facility] [place] [address] 10/27/2023 8:30 AM EDT Office Visit Sleep Disorders Ctr [facility] [address] [place] [phone] Lindsey Sheikh CRNP 132 [facility] [place] [address] 10/29/2023 11:30 AM EDT Scheduled Telephone [facility], [facility] [address] [facility] [place] [address] Mery Calderon RDN [address] [facility] [place] [address] 11/11/2023 11:00 AM EDT Telemedicine Pharmacy, [employer] [address] [place] [address] Pharmacist1, [facility] [address] [place] [address] 11/11/2023 11:30 AM EDT Telemedicine Pharmacy, [facility] [address] [place] [address] Pharmacist1, [facility] [address] [place] [address] 12/31/2023 11:45 AM EDT Hospital Encounter ENDO OSS, Endoscopy Room [facility] [address] [place] [phone] José Miguel Sifuentes MD [address] [place] [address] 12/31/2023 11:45 AM EDT - 12/31/2023 12:15 PM EDT Surgery ENDO OSSC, Endoscopy Room [facility] [address] [place] [phone] José Miguel Sifuentes MD [address] [place] [address] COLONOSCOPY FLEXIBLE PROXIMAL DIAGNOSTIC 01/14/2024 12:30 PM EDT Cardiac Studies Cardiac Studies [address] [place] [address] 08/08/2024 9:30 AM EST Nurse Only Ancillary [address] [place] [address] [place], Nurse Annual [address] [place] [address] Scheduled Procedures Name Priority Associated Diagnoses Date/Ti [...] this encounter Medical Devices Implanted Type Area Test Grader Device Identifier Shelf Expiration Date Model / Serial / Lot Lens Intraoc 21.0 - [id number] - [id number] Implanted:Qty: 1 on 01/22/2017 by Cheko Mcnamara MD at OR [facility] Right: Eye [employer]CH [employer]OM[employer] 08/05/2021 [id number] / [id number] / [id number] Lens Intraoc 21.5 - [id number] - [id number] Implanted:Qty: 1 on 02/03/2017 by Cheko Mcnamara MD at OR [facility] Left: Eye BAUSCH & LOMB 09/02/2021 [id number] / [id number] / [id number] documented as of this encounter Advance Directives [...] and were consensually agreed upon. Care Teams Box Toe Flanger Stitchdowns Relationship Specialty Start Date End Date Bárbara Rios DO [address] [place] [address] [place] [address] PCP - General Internal Medicine 08/16/21 documented as of this encounter
--- OUTSIDE RECORDS SUMMARY | 2023-10-20 22:53 | External Medical Summary | Summary of Care ---
Author Name Unknown Organization [facility] Address [address] [place] [address] Phone [phone] Care Team Providers Care Web Offset Press Feeder Name Role Phone Bárbara Rios Primary Care Provider [phone] Reason for Visit * Reason Onset Date Comments [facility]: Maintenance 09/30/2023 Encounter Details Date Type Department Care Team (Late st Contact Info) Description 09/30/2023 Telephone [facility], [facility] [address] [facility] [place] [address] [facility], Nurse [facility] [address] [facility] [place] [id number] [facility]: Maintenance Allergies Active Allergy Reactions Criticality Noted Date Comments Other Allergy (See Comments) Rash Low 10/13/2022 1+ cocamidopropyl betaine Sglt2 Inhibitors Other (Please comment) High 09/04/2020 Genital infection Sulfa Antibiotics Rash 10/15/2016 documented as of this encounter (statuses as of 09/30/2023) Medications Medication Sig Dispensed Refills Start Date End Date Status Cholecalciferol (VITAMIN D3) 2000 UNITS Capsule Take by mouth 5,000 Units daily . 30 Cap 5 2 Active Aspirin 81 MG TabletIndications: takes in [...] 0 2 Active CoQ10 100 MG Oral CapsuleIndications :takes [...] 32 UNITS WITH DINNER PLUS CORRECTION PER [facility] OR DIRECTED UP TO [...] a week. 9 mL 3 3 Active Kdsro-4-hmqk Ethyl Esters 1 GM Oral Capsule (Lovaza) Take 2 Capsules by mouth in the morning and 2 Capsules before bedtime. 360 Capsule 1 3 Active Carvedilol 25 MG Oral Tablet (Coreg)Indications [...] Evolocumab 140 MG/ML Subcutaneous Solution Auto-injector (Repatha VeroseeClick)Indicati ons:Dyslipidemia, goal LDL below 100,Mixed dyslipidemia Inject [...] the morning. 100 Tablet 3 4 Active Clotrimazole-Betam ethasone 1-0.05 % External Cream (Lotrisone) APPLY TOPICALLY TO AFFECTED AREA(S) TWO TIMES A DAY. 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 180 Tablet 3 4 Active Potassium Chloride [place] ER 10 MEQ [...] DX: E11.9 300 Strip 3 4 Active DIURETIC TITRATION PLAN If no improvement on day 3, contact heart failure managing provider. 60 Each 0 4 Active DIURETIC TITRATION PLAN If no improvement on day 3, contact heart failure managing provider. 60 Each 0 3 09/30/19 24 Discontinued Hospital, Clinic, or Other Facility [...] as of this encounter (statuses as of 09/30/2023) Active Problems Problem Noted Date Diagnosed Date [...] in the Comments) Remote Patient Monitoring Vendor: [employer] Device(s): Connected Scale Self - Management Plan [...] 08/18/2017 Last Assessment & Plan: Continues on lovyolandaa 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 repatha History of [...] as of this encounter (statuses as of 09/30/2023) Resolved Problems Problem Noted Date Diagnosed Date [...] as of this encounter (statuses as of 09/30/2023) Immunizations Name Administration Dates Next Due COVID-19 mRNA, LNP-s, No Pre serve, 2-Dose Series (Moderna) 12/10/2020,11/12/2020 Hepatitis B, 20+ yrs 01/04/2018,08/03/2017,07/03 Pneumococcal Conjugate Vacci ne, 20-valent ([id number]) 06/09/2022 Pneumococcal Polysaccharide PPV23 (Pneumovax) 03/06/2020 Seasonal [...] encounter Miscellaneous Notes * Telephone Encounter - Shruti Marquez LPN - 09/30/2023 11:24 AM EDT Reviewed message from with pt, verbalized understanding. F/U calls scheduled * Addendum Note - Prince Sullivan MD - 09/30/2023 11:21 AM EDTAddended by: PRINCE SULLIVAN on: 09/30/2023 11:21 AM Modules accepted: Orders * Telephone Encounter - Prince Sullivan MD - 09/30/2023 11:20 AM EDT DTP order changed: Double torsemide to 80 mg bid for 3 days Follow-up phone calls Call if new/worse sx * Telephone Encounter - Shruti Marquez LPN - 09/30/2023 10:09 AM EDT Images from the original note were not included. [facility] Remote Patient Monitoring Able to contact patient: Trigger type: Abnormal reading(s): AMC (Advanced Monitored Caregiving): Scale: Trigger weight: 293.9 lbs; weight increased 5 lbs in 3 day(s) Trigger priority per AMC: high Patient takes diuretic medication: Yes, reviewed current diuretic use: Name of medication: Torsemide Dose: 40 mg Frequency: BID Symptom review: SOB: increased Abdominal Fullness: + Diet Reviewed: Yes. Patient has had any foods high in sodium: No Fluid Intake Reviewed: Yes. Patient is on a fluid restriction: Yes, restriction amount in milliliters or liters: 2L Adherent to restriction: No, believes he went over yesterday Self-Management Plan Reviewed: Red Flags: none listed Risk assignment recommendation: Moderate risk findings (check [...] symptoms High risk findings (check as applicable): [x] High trigger priority on AMC [] Confirmed tympanic equivalent temperature greater than or equalto 102 F on hour post administration of antipyretic [] Weight gain of greater than or equal to 5 lbs over 1-2 days [] Confirmed tympanic equivalent temperature less than 96 F [x] Weight gain of greater than or equal to 5 lbs in 5 days WITH heart failure symptoms [] Confirmed new sustained resting HR greater than 105 WITH symptoms [] Severe heart failure symptoms [] Confirmed new sustained resting HR less than 60 WITH symptoms [] Severe COPD symptoms [] Confirmed SBP less than 90 WITH symptoms [] Confirmed new SpO2 less than 90% [] Confirmed SBP greater than 170 WITH symptoms [] Confirmed DBP greater than 90 WITH symptoms Additional risk selection justification: Spoke with pt c/o increased SOB since waking up today. C/Oincreased abdominal fullness. Denies increased edema. Denies missed doses of diuretics. He is adherent to sodium restriction but believes he went over fluid restriction. Reviewed DTP pt believes DTP is old and no longer correct. On 09/18 was advised to take extra 20 mg for 1 dose. Please advise on D TP Overall risk and identified plan: High risk: Next day follow up call scheduled Route to RNCM (Registered Nurse Manager Planning) and Advance Practitioner Route to RMC (Remote Medical Coordinator) documented in this encounter Plan of Treatment Upcoming Encounters Date Type Department Care Team (Latest Contact Info) Description 10/01/2023 10:00 AM EDT Scheduled Telephone [facility], [address] [place] [address] Coordinator, [address] [place] [address] 10/02/2023 9:00 AM EDT Scheduled Telephone [facility], [facility] [address] [facility] [place] [address] Coordinator, [address] [place] [address] 10/06/2023 2:10 PM EDT Office Visit Family Medicine [address] [place] [phone] Bárbara Rios[address] [place] [address] 10/09/2023 4:00 PM EDT Home Visit [facility], [address] [place] [address] Love Stevens RN 132 [facility] [place] [address] 10/21/2023 2:40 PM EDT Office Visit Nephrology [address] [place] [address] Shivani Magallon MD [address] [place] [address] [place] [address] 10/27/2023 8:30 AM EDT Office Visit Sleep Disorders Ctr [facility] [place] [address] [phone] Lindsey Sheikh CRNP [address] [place] [address] 10/29/2023 11:30 AM EDT Scheduled Telephone [facility], [facility] [address] [facility] [place] [address] Mery Calderon, RDN [address] [facility] [place] [address] 11/11/2023 11:00 AM EDT Telemedicine Pharmacy, [facility] 200 [facility] [place] [address] Pharmacist1, [facility] 200 [facility] [place] [address] 11/11/2023 11:30 AM EDT Telemedicine Pharmacy, [facility] [address] [facility] [place] [address] Pharmacist1, [facility] [address] [facility] [place] [address] 12/31/2023 11:45 AM EDT Hospital Encounter ENDO OSSC, Endoscopy Room [facility] [address] [place] [phone] José Miguel Sifuentes MD [address] [place] [address] 12/31/2023 11:45 AM EDT - 12/31/2023 12:15 PM EDT Surgery ENDO OSS[facility], Endoscopy Room [facility] [address] [place] [phone] José Miguel Sifuentes MD [address] [place] [address] COLONOSCOPY FLEXIBLE PROXIMAL DIAGNOSTIC 01/14/2024 12:30 PM EDT Cardiac Studies Cardiac Studies [address] [place] [address] 08/08/2024 9:30 AM EST Nurse Only Ancillary Lazaro Hyde [address] [place] [address] [facility], Nurse Annual [address] [place] [address] Scheduled Procedures Name Priority Associated Diagnoses Date/Ti [...] this encounter Medical Devices Implanted Type Area Coding Validator Device Identifier Shelf Expiration Date Model / Serial / Lot Lens Intraoc 21.0 - [id number] - [id number] Implanted:Qty: 1 on 01/22/2017 by Cheko Mcnamara MD at OR [facility] Right: Eye [employer] 08/05/2021 [id number] / [id number] / [id number] Lens Intraoc 21.5 - [id number] - [id number] Implanted:Qty: 1 on 02/03/2017 by Cheko Mcnamara MD at OR [facility] Left: Eye [employer] 09/02/2021 [id number] / [id number] / [id number] documented as of this encounter Advance Directives [...] and were consensually agreed upon. Care Teams Web Offset Press Feeder Relationship Specialty Start Date End Date Bárbara Rios DO [address] [place] [address] [place] [address] PCP - General Internal Medicine 08/16/21 documented as of this encounter
--- OUTSIDE RECORDS SUMMARY | 2023-10-20 22:53 | External Medical Summary | Summary of Care ---
Author Name Unknown Organization [facility] Address [address] [facility] [place] [address] Phone [phone] Care Team Providers Care Slime Plant Operator Helper Name Role Phone Bárbara Rios Primary Care Provider [phone] Reason for Visit * Reason Onset Date Comments [facility]: Maintenance 10/03/2023 Encounter Details Date Type Department Care Team (Late st Contact Info) Description 10/03/2023 12:40 PM EDT Scheduled Telephone [facility], [facility] 132 [facility] [place] [address] [facility], Nurse [facility] [address] [facility] [place] [address] Allergies Active Allergy Reactions Criticality Noted Date Comments Other Allergy (See Comments) Rash Low 10/13/2022 1+ cocamidopropyl betaine Sglt2 Inhibitors Other (Please comment) High 09/04/2020 Genital infection Sulfa Antibiotics Rash 10/15/2016 documented as of this encounter (statuses as of 10/03/2023) Medications Medication Sig Dispensed Refills Start Date [...] 32 UNITS WITH DINNER PLUS CORRECTION PER [facility] OR DIRECTED UP TO 120 [...] a week. 9 mL 3 04/09/2023 Active Bnjki-6-cyyk Ethyl Esters 1 GM Oral Capsule (Lovaza) [...] Evolocumab 140 MG/ML Subcutaneous Solution Auto-injector (Repatha GarenaClick)Indicatio ns:Dyslipidemia, goal LDL below 100,Mixed dyslipidemia Inject [...] as of this encounter (statuses as of 10/03/2023) Active Problems Problem Noted Date Diagnosed Date [...] in the Comments) Remote Patient Monitoring Vendor: [facility] Device(s): Connected Scale Self - Management Plan [...] as of this encounter (statuses as of 10/03/2023) Resolved Problems Problem Noted Date Diagnosed Date [...] as of this encounter (statuses as of 10/03/2023) Immunizations Name Administration Dates Next Due COVID-19 mRNA, LNP-s, No Pre serve, 2-Dose Series (Moderna) 12/10/2020,11/12/2020 Hepatitis B, 20+ yrs 01/04/2018,08/03/2017,07/03 Pneumococcal Conjugate Vacci ne, 20-valent ([id number]) 06/09/2022 Pneumococcal Polysaccharide PPV23 (Pneumovax) 03/06/2020 Seasonal [...] Encounter - Mary Jane Moser RN - 10/03/2023 9:03 AM EDT Images from the original note were not included. [facility] Telephonic Nurse Follow-Up Call [facility] Subprogram: Focused Care Management (3-9 months) Follow Up Call Type: Weekend Call Acute issue requiring follow-up call: Other: DTP Objective: 09/11/2023 11:03 AM 09/04/2023 2:02 PM 09/03/2023 1:45 PM 09/03/2023 10:26 AM 08/26/2023 11:50 AM VITALS ACROSS ENCOUNTERS BP 132/66 118/70 158/72 130/70 Pulse 64 76 64 70 Weight 135.6 kg BMI 40.54 BMI 40.54 kg/m2 Remote Patient Monitoring: Oxygen Needs: NO supplemental oxygen needs identified DME Needs: NO DME needs identified Medications: Current DTP: Double dose of Torsemide for 3 days Subjective: Condition Status: No call made as per patient request. He will call [facility] if having any increase in symptoms Current Concerns: No call made Disposition: Follow up call scheduled for tomorrow with COUNT TEAM CLERK Hydrogen Braze Furnace Operator to check on weight on 10/03 Future Visits Scheduled: Future Appointments-next 60 days Date/Time Provider Specialty Dept Phone 10/03/2023 12:40 PM [facility], Nurse [facility] [phone] 10/06/2023 2:10 PM (Arrive by 1:55 PM) Bárbara Rios DO Family Medicine [phone] 10/09/2023 4:00 PM Love Stevens RN [facility] [phone] 10/21/2023 2:40 PM (Arrive by 2:25 PM) Shivani Magallon MD Nephrology [phone] 10/27/2023 8:30 AM (Arrive by 8:15 AM) Lindsey Sheikh CRNP Sleep Disorders [phone] 10/29/2023 11:30 AM Mery Calderon RDN [facility] [phone] 11/11/2023 11:00 AM Pharmacist1, [facility] [phone] 11/11/2023 11:30 AM Pharmacist1, [facility] [phone] 01/14/2024 12:30 PM [facility] Cardiac Studies [phone] 08/08/2024 9:30 AM Nurse [facility] Ancillary [phone] Mary Jane Moser, RN documented in this encounter Plan of Treatment Upcoming Encounters Date Type Department Care Team (Latest Contact Info) Description 10/04/2023 4:00 PM EDT Scheduled Telephone [facility], [place] [address] [address] [place] [address] [place], Nurse [facility] [address] [place] [address] 10/06/2023 2:10 PM EDT Office Visit Family Medicine [address] [place] [phone] Bárbara Rios[address] [place] [address] 10/09/2023 4:00 PM EDT Home Visit [facility], [facility] [address] [place] [address] Love Stevens, RN 132 [facility] [place] [address] 10/21/2023 2:40 PM EDT Office Visit Nephrology [address] [place] [address] Shivani Magallon MD [address] [place] [address] 10/27/2023 8:30 AM EDT Office Visit Sleep Disorders Ctr [employer] [address] [place] [phone] Lindsey hSeikh CRNP [address] [place] [address] 10/29/2023 11:30 AM EDT Scheduled Telephone [facility], [facility] [address] [facility] [place] [address] Mery Calderon RDN [address] [facility] [address] 11/11/2023 11:00 AM EDT Telemedicine Pharmacy, [facility] [place] 200 [facility] [place] [address] Pharmacist1, [facility] 200 [facility] [place] [address] 11/11/2023 11:30 AM EDT Telemedicine Pharmacy, [facility] [place] 200 [facility] [place] [address] Pharmacist1, [facility] 200 [facility] [place] [address] 12/31/2023 11:45 AM EDT Hospital Encounter ENDO OSSC, Endoscopy Room [facility] [address] [place] [phone] José Miguel Sifuentes MD [address] [place] [address] 12/31/2023 11:45 AM EDT - 12/31/2023 12:15 PM EDT Surgery ENDO O[facility], Endoscopy Room [facility] [address] [place] [phone] José Miguel Sifuentes MD [address] [place] [address] COLONOSCOPY FLEXIBLE PROXIMAL DIAGNOSTIC 01/14/2024 12:30 PM EDT Cardiac Studies Cardiac Studies [address] [place] [address] 08/08/2024 9:30 AM EST Nurse Only Ancillary [address] [place] [address] [place], Nurse Annual [address] [place] [address] Scheduled Procedures Name Priority Associated Diagnoses Date/Ti [...] this encounter Medical Devices Implanted Type Area Electronic Maintenance Supervisor Device Identifier Shelf Expiration Date Model / Serial / Lot Lens Intraoc 21.0 - [id number] - [id number] Implanted:Qty: 1 on 01/22/2017 by Cheko Mcnamara MD at OR [facility] Right: Eye [employer] 08/05/2021 [id number] / [id number] / [id number] Lens Intraoc 21.5 - [id number] - [id number] Implanted:Qty: 1 on 02/03/2017 by Cheko Mcnamara MD at OR [facility] Left: Eye [employer] 09/02/2021 [id number] / [id number] / [id number] documented as of this encounter Advance Directives [...] and were consensually agreed upon. Care Teams Slime Plant Operator Helper Relationship Specialty Start Date End Date Bárbara Rios DO [address] [place] [address] [place] [id number] PCP - General Internal Medicine 08/16/21 documented as of this encounter
--- OUTSIDE RECORDS SUMMARY | 2023-10-20 22:53 | External Medical Summary | Summary of Care ---
Author Name Unknown Organization [facility] Address [address] [facility] [place] [address] Phone [phone] Care Team Providers Care Pattern Painter Name Role Phone Bárbara Rios Primary Care Provider [phone] Reason for Visit * Reason Onset Date Comments Medical Nutrition Therapy 09/29/2023 Encounter Details Date Type Department Care Team (Latest Contact Info) Description 09/29/2023 12:30 PM EDT Scheduled Telephone [facility], [facility] [address] [facility] [place] [address] Mery Calderon, RDN [address] [facility] [address] 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)* Allergies Active Allergy Reactions Criticality Noted Date Comments Other Allergy (See Comments) Rash Low 10/13/2022 1+ cocamidopropyl betaine Sglt2 Inhibitors Other (Please comment) High 09/04/2020 Genital infection Sulfa Antibiotics Rash 10/15/2016 documented as of this encounter (statuses as of 09/29/2023) Medications Medication Sig Dispensed Refills Start Date [...] UNITS WITH DINNER PLUS CORRECTION PER [facility] OR DIRECTED UP TO [...] a week. 9 mL 3 04/09/2023 Active Gyozu-1-qtnt Ethyl Esters 1 GM Oral Capsule (Lovaza) [...] DX: E11.9 300 Strip 3 09/23/2023 Active Hospital, Clinic, or Other Facility Administered [...] as of this encounter (statuses as of 09/29/2023) Active Problems Problem Noted Date Diagnosed Date [...] in the Comments) Remote Patient Monitoring Vendor: [employer] Device(s): Connected Scale Self - Management Plan [...] Continues on lovaza 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 repTeedota History of tobacco use 08/18/2017 CHAPINCITO on [...] as of this encounter (statuses as of 09/29/2023) Resolved Problems Problem Noted Date Diagnosed Date [...] as of this encounter (statuses as of 09/29/2023) Immunizations Name Administration Dates Next Due COVID-19 mRNA, LNP-s, No Pre serve, 2-Dose Series (Moderna) 12/10/2020,11/12/2020 Hepatitis B, 20+ yrs 01/04/2018,08/03/2017,07/03 Pneumococcal Conjugate Vacci ne, 20-valent ([id number]) 06/09/2022 Pneumococcal Polysaccharide PPV23 (Pneumovax) 03/06/2020 Seasonal [...] encounter Miscellaneous Notes * Telephone Encounter - NorbertghassanNellyMerykolby Lang, RDN - 09/29/2023 7:52 AM EDT NUTRITION PROGRESS NOTE - Advisor [facility] [employer] Patient Phone Numbers: Call placed to pt as follow-up from initial nutrition assessment from 09/03/23. Patient denies any issues related to diet information previously provided. Describes typical meal pattern/po intake as indicated below: Breakfast: diet yogurt, blueberries, bagel with butter/eggs, 2 slices toast, banana Snacks: nothing Lunch: "Delightful 45" bread (2 slices) with low sodium peanut butter and diet jelly/leftovers/bowlof homemade soup, roll and butter Snacks: nothing Dinner: "homemade meals of a piece of lean meat--chicken, pork, roast beef slices, noodles with butter, rice on occasion, vegs" Snacks: regular cookies/fruit salad Drinks: hot tea/diet iced tea/Diet pepsi Restaurant meals: twice a week Alcohol: None Tobacco Use: No Patient continues to live with significant who will assist with care/food shopping/prepping/cookingof meals Testing BS 3-4x daily Recently, BS ranging 150-160's Reviewed the importance of proper nutrition to better control BS Followed by [facility] (next appt 11/11/23) PO intake and appetite are being reported as "quite good" No difficulties reported this call Since last call, SOB continues "here and there" but at baseline Reinforced the importance to stay active with bedside/chair exercises at least 2-3x/week--(providedencouragement/info sent previously) Patient does not always limit or avoid high sodium/high sugar diet foods/drinks (BLE edema noted) Reinforced the importance to restrict these foods/suggested healthy options/reinforced foods to avoid/consume No food insecurity reported this call Patient denies any issues related to changes in wt. Wt Readings from Last 3 Encounters: 09/03/23 135.6 kg (298 lb 15.1 oz) 08/12/23 135.6 kg (299 lb) 08/05/23 (!) 138 kg (304 lb 3.2 oz) Previous Nutrition Goals: 1) Consume 3 meals/day plus HS snack of nutritious, low sodium/low sugar foods with consistent carbohydrates (reiterated healthy foods to consume and those foods to avoid/sent info previously)--in progress 2) Consume more fruits/vegetables at HS snack vs cookies (reinforced My Plate Method/seasonal fruits and vegs suggested/info sent previously)--in progress 3) Encouraged to do bedside/chair exercises/2-3x per week/walks (info previously sent)--in progress-provided encouragement Reinforced nutrition goals. Encouraged continued progress towards goals Follow up as scheduled. Encouraged pt to contact [facility] at [phone] for any non-emergent changes/concerns. Mery Calderon MS, RDN, LDN Clinical Dietitian [facility] 09/29/2023 7:57 AM documented in this encounter Plan of Treatment Upcoming Encounters Date Type Department Care Team (Latest Contact Info) Description 10/06/2023 2:10 PM EDT Office Visit Family Medicine [address] [place] [phone] Bárbara Rios[address] [place] [address] 10/09/2023 4:00 PM EDT Home Visit [facility] [place], [place] [address] [place] [address] Love Stevens, RN 132 [place] [address] 10/21/2023 2:40 PM EDT Office Visit Nephrology [address] [place] [address] Shivani Magallon MD [address] [place] [address] 10/27/2023 8:30 AM EDT Office Visit Sleep Disorders Ctr [facility] 132 [place] [phone] Lindsey Sheikh CRNP 132 [place] [address] 10/29/2023 11:30 AM EDT Scheduled Telephone [facility], [facility] [address] [facility] [place] [address] Mery Calderon, RDN [address] [place] [facility] [place] [address] 11/11/2023 11:00 AM EDT Telemedicine Pharmacy, [facility] [address] [place] [address] Pharmacist1, [facility] 200 [facility] [place] [address] 11/11/2023 11:30 AM EDT Telemedicine Pharmacy, [facility] [address] [place] [address] Pharmacist1, [facility] 200 [facility] [place] [address] 12/31/2023 11:45 AM EDT Hospital Encounter ENDO [facility], Endoscopy Room [facility] 132 [place] [phone] José Miguel Sifuentes MD 132 [place] [address] 12/31/2023 11:45 AM EDT - 12/31/2023 12:15 PM EDT Surgery ENDO [facility], Endoscopy Room [facility] [address] [place] [phone] José Miguel Sifuentes MD [address] [place] [address] COLONOSCOPY FLEXIBLE PROXIMAL DIAGNOSTIC 01/14/2024 12:30 PM EDT Cardiac Studies Cardiac Studies [address] [place] [address] 08/08/2024 9:30 AM EST Nurse Only Ancillary [address] [place] [address] [place], Nurse [address] [place] [address] Scheduled Procedures Name Priority Associated Diagnoses Date/Ti [...] this encounter Medical Devices Implanted Type Area Stock Preparation Operator Device Identifier Shelf Expiration Date Model / Serial / Lot Lens Intraoc 21.0 - [id number] - [id number] Implanted:Qty: 1 on 01/22/2017 by Cheko Mcnamara MD at OR [facility] Right: Eye BAUSCH & LOMB 08/05/2021 [id number] / [id number] / [id number] Lens Intraoc 21.5 - [id number] - [id number] Implanted:Qty: 1 on 02/03/2017 by Cheko Mcnamara MD at OR [facility] Left: Eye BAUSCH & LOMB 09/02/2021 [id number] / [id number] / [id number] documented as of this encounter Visit Diagnoses Diagnosis 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)- Primary Special screening for malignant neoplasms, [...] and were consensually agreed upon. Care Teams Pattern Painter Relationship Specialty Start Date End Date Bárbara Rios DO [address] [place] [address] [place] [address] PCP - General Internal Medicine 08/16/21 documented as of this encounter
--- OUTSIDE RECORDS SUMMARY | 2023-10-20 22:53 | External Medical Summary | Summary of Care ---
Author Name Unknown Organization [facility] Address [address] [facility] [place] [address] Phone [phone] Care Team Providers Care Technical Communication Teacher Name Role Phone Bárbara Rios Primary Care Provider [phone] Reason for Visit * Reason Onset Date Comments [facility]: Maintenance 10/01/2023 Encounter Details Date Type Department Care Team (Late st Contact Info) Description 10/01/2023 10:00 AM EDT Scheduled Telephone [facility], [facility] [address] [place] [address] Coordinator, [facility] [address] [place] [address] Allergies Active Allergy Reactions Criticality Noted Date Comments Other Allergy (See Comments) Rash Low 10/13/2022 1+ cocamidopropyl betaine Sglt2 Inhibitors Other (Please comment) High 09/04/2020 Genital infection Sulfa Antibiotics Rash 10/15/2016 documented as of this encounter (statuses as of 10/01/2023) Medications Medication Sig Dispensed Refills Start Date [...] 32 UNITS WITH DINNER PLUS CORRECTION PER [facility] OR DIRECTED UP TO [...] a week. 9 mL 3 04/09/2023 Active Opmto-0-ubeu Ethyl Esters 1 GM Oral Capsule (Lovaza) [...] Evolocumab 140 MG/ML Subcutaneous Solution Auto-injector (Repatha Align TechnologyClick)Indicatio ns:Dyslipidemia, goal LDL below 100,Mixed dyslipidemia Inject [...] as of this encounter (statuses as of 10/01/2023) Active Problems Problem Noted Date Diagnosed Date [...] in the Comments) Remote Patient Monitoring Vendor: [facility] Device(s): Connected Scale Self - Management Plan [...] as of this encounter (statuses as of 10/01/2023) Resolved Problems Problem Noted Date Diagnosed Date [...] as of this encounter (statuses as of 10/01/2023) Immunizations Name Administration Dates Next Due COVID-19 mRNA, LNP-s, No Pre serve, 2-Dose Series (Moderna) 12/10/2020,11/12/2020 Hepatitis B, 20+ yrs 01/04/2018,08/03/2017,07/03 Pneumococcal Conjugate Vacci ne, 20-valent ([id number]) 06/09/2022 Pneumococcal Polysaccharide PPV23 (Pneumovax) 03/06/2020 Seasonal [...] Telephone Encounter - Jaja Benedict RN - 10/01/2023 9:48 AM EDT Images from the original note were not included. [facility] Follow-Up Call [facility] Subprogram: Focused Care Management (3-9 months) Follow Up Call Type: 24 hour follow up Acute issue requiring follow-up call: Heart Failure Exacerbation. Wt gain, increased sob Objective: 09/11/2023 11:03 AM 09/04/2023 2:02 PM 09/03/2023 1:45 PM 09/03/2023 10:26 AM 08/26/2023 11:50 AM VITALS ACROSS ENCOUNTERS BP 132/66 118/70 158/72 130/70 Pulse 64 76 64 70 Weight 135.6 kg BMI 40.54 BMI 40.54 kg/m2 Remote Patient Monitoring: AMC Scale: 289.1 lbs. Dry wt: 288-289 lbs per pt and notes in EPIC. Oxygen Needs: NO supplemental oxygen needs identified DME Needs: NO DME needs identified Medications: Current DTP: Double dose of Torsemide for 3 days to 80 mg bid x 3 days. Subjective: Condition Status: Symptoms resolved and back to baseline DTP started yesterday for 5 lb wt gain in 3 days. Pt was instructed to double Torsemide to 80 mg bid x 3 days. Current Concerns: Wt down 4.8 lbs today. Spoke with patient who reports that he is back to baseline. Took the additional 40 mg of Torsemide yesterday. Took only the regular dose of Torsemide today as he is back to hisnormal. On for follow up call tomorrow to check fluid status. Will update care team and follow up to jeb. Disposition: Routed to [facility] and/or [facility] at Home Care Team for further advice and Follow up call scheduled for tomorrow with ROSCOE AldanaComputer Assembler Future Visits Scheduled: Future Appointments-next 60 days Date/Time Provider Specialty Dept Phone 10/01/2023 10:00 AM Coordinator, Morales Aldana [facility] [phone] 10/02/2023 9:00 AM Coordinator, Morales Aldana [facility] [phone] 10/06/2023 2:10 PM (Arrive by 1:55 PM) Bárbara Rios DO Family Medicine [phone] 10/09/2023 4:00 PM Love Stevens, ANNE MARIE [facility] [phone] 10/21/2023 2:40 PM (Arrive by 2:25 PM) Shivani Magallon MD Nephrology [phone] 10/27/2023 8:30 AM (Arrive by 8:15 AM) Lindsey Sheikh CRNP Sleep Disorders [phone] 10/29/2023 11:30 AM Mery Calderon RDN [facility] [phone] 11/11/2023 11:00 AM Pharmacist1, [facility] [phone] 11/11/2023 11:30 AM Pharmacist1, [facility] [phone] 01/14/2024 12:30 PM [facility] Cardiac Studies [phone] 08/08/2024 9:30 AM Nurse [facility] Ancillary [phone] Jaja Benedict, RN documented in this encounter Plan of Treatment Upcoming Encounters Date Type Department Care Team (Latest Contact Info) Description 10/02/2023 9:00 AM EDT Scheduled Telephone [facility], [facility] [address] [place] [address] Coordinator, Morales Aldana 132 [facility] [place] [address] 10/06/2023 2:10 PM EDT Office Visit Family Medicine [address] [place] [phone] Bárbara Rios [address] [place] [address] 10/09/2023 4:00 PM EDT Home Visit [facility], [facility] 132 [facility] [place] [address] Love Stevens, ANNE MARIE 132 [facility] [address] 10/21/2023 2:40 PM EDT Office Visit Nephrology [address] [place] [address] Shivani Magallon MD 200 [facility] [place] [address] 10/27/2023 8:30 AM EDT Office Visit Sleep Disorders Ctr [facility] 132 [facility] [place] [phone] Lindsey Sheikh CRNP 132 [facility] [place] [address] 10/29/2023 11:30 AM EDT Scheduled Telephone [facility], [facility] [address] [facility] [place] [address] Mery Calderon RDN [address] [facility] [place] [address] 11/11/2023 11:00 AM EDT Telemedicine Pharmacy, [employer] [address] [place] [address] Pharmacist1, [facility] [address] [place] [address] 11/11/2023 11:30 AM EDT Telemedicine Pharmacy, [facility] [address] [place] [address] Pharmacist1, [facility] [address] [place] [address] 12/31/2023 11:45 AM EDT Hospital Encounter ENDO [facility], Endoscopy Room [facility] [address] [place] [phone] José Miguel Sifuentes MD [address] [place] [address] 12/31/2023 11:45 AM EDT - 12/31/2023 12:15 PM EDT Surgery ENDO [facility], Endoscopy Room [facility] [address] [place] [phone] José Miguel Sifuentes MD [address] [place] [address] COLONOSCOPY FLEXIBLE PROXIMAL DIAGNOSTIC 01/14/2024 12:30 PM EDT Cardiac Studies Cardiac Studies [address] [place] [address] 08/08/2024 9:30 AM EST Nurse Only Ancillary [address] [place] [address] [place], Nurse Annual [address] [place] [address] Scheduled Procedures Name Priority Associated Diagnoses Date/Ti [...] this encounter Medical Devices Implanted Type Area Fur Finisher Seamstress Device Identifier Shelf Expiration Date Model / Serial / Lot Lens Intraoc 21.0 - [id number] - [id number] Implanted:Qty: 1 on 01/22/2017 by Cheko Mcnamara MD at OR [facility] Right: Eye BAUSCH & LOMB 08/05/2021 [id number] / [id number] / [id number] Lens Intraoc 21.5 - [id number] - [id number] Implanted:Qty: 1 on 02/03/2017 by Cheko Mcnamara MD at OR [facility] Left: Eye BAUSCH & LOMB 09/02/2021 [id number] / [id number] / [id number] documented as of this encounter Advance Directives [...] and were consensually agreed upon. Care Teams Technical Communication Teacher Relationship Specialty Start Date End Date Bárbara Rios DO [address] [place] [address] [place] [address] PCP - General Internal Medicine 08/16/21 documented as of this encounter
--- OUTSIDE RECORDS SUMMARY | 2023-10-20 22:53 | External Medical Summary | Summary of Care ---
Author Name Unknown Organization [facility] Address [address] [facility] [place] [address] Phone [phone] Care Team Providers Care Two Way Radio Installer Name Role Phone Sridhar Arshad DO Primary Care Provider Reason for Visit * Reason Onset Date Comments Medication Refill 09/23/2023 Encounter Details Date Type Department Care Team (Late st Contact Info) Description 09/23/2023 Refill Pharmacy, [address] [place] [address] Sridhar Arshad DO [address] [place] [address] [place] [address] Uncontrolled type 2 diabetes mellitus with hyperglycemia (HCC) Allergies Active Allergy Reactions Criticality Noted Date Comments Other Allergy (See Comments) Rash Low 10/13/2022 1+ cocamidopropyl betaine Sglt2 Inhibitors Other (Please comment) High 09/04/2020 Genital infection Sulfa Antibiotics Rash 10/15/2016 documented as of this encounter (statuses as of 09/23/2023) Medications Medication Sig Dispensed Refills Start Date [...] a week. 9 mL 3 04/09/2023 Active Caaoa-1-qlyc Ethyl Esters 1 GM Oral Capsule (Lovaza) Take 2 Capsules by mouth in the morning and 2 Capsules before bedtime. 360 Capsule 1 04/14/2023 Active Carvedilol 25 MG Oral Tablet (Coreg)Indications [...] Evolocumab 140 MG/ML Subcutaneous Solution Auto-injector (Repatha SureClick)Indicati ons:Dyslipidemia, goal LDL below 100,Mixed dyslipidemia Inject [...] DX: E11.9 300 Strip 3 09/23/2023 Active OneTouch Verio In Vitro Strip (Glucose Blood)Indications: Uncontrolled type 2 diabetes mellitus with hyperglycemia (HCC) USE TO TEST BLOOD GLUCOSE 3 TIMES A DAY. DX: E11.9 300 Strip 3 09/06/2021 4 Discontinu ed(Refill) Hospital, Clinic, or Other Facility [...] as of this encounter (statuses as of 09/23/2023) Active Problems Problem Noted Date Diagnosed Date [...] in the Comments) Remote Patient Monitoring Vendor: [email or web address] Device(s): Connected Scale Self - Management Plan [...] 08/18/2017 Last Assessment & Plan: Continues on Ketsuaza 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 repatha History of [...] as of this encounter (statuses as of 09/23/2023) Resolved Problems Problem Noted Date Diagnosed Date [...] as of this encounter (statuses as of 09/23/2023) Immunizations Name Administration Dates Next Due COVID-19 mRNA, LNP-s, No Pre serve, 2-Dose Series (Moderna) 12/10/2020,11/12/2020 Hepatitis B, 20+ yrs 01/04/2018,08/03/2017,07/03 Pneumococcal Conjugate Vacci ne, 20-valent ([id number]) 06/09/2022 Pneumococcal Polysaccharide PPV23 (Pneumovax) 03/06/2020 Seasonal [...] encounter Miscellaneous Notes * Telephone Encounter - Coral Pardo [facility] - 09/23/2023 9:49 AM EDT Signed Prescriptions: Disp Refills OneTouch Verio In Vitro Strip (Glucose Blo*300 St*3 Sig: USE TO TEST BLOOD GLUCOSE 3 TIMES A DAY. DX: E11.9Authorizing Provider: SRIDHAR ARSHAD User: CORAL PARDO documented in this encounter Plan of Treatment Upcoming Encounters Date Type Department Care Team (Latest Contact Info) Description 09/29/2023 12:30 PM EDT Scheduled Telephone [facility] [place], [facility] [address] [place] [address] Mery Calderon RDN 1000 [address] [facility] [place] [address] 10/06/2023 2:10 PM EDT Office Visit Family [address] [phone] Arshad, Sridhar Sneed[address] [place] [address] 10/09/2023 4:00 PM EDT [facility] Visit [facility] [place], [facility] [address] [place] [address] Love Stevens RN [address] [place] [address] 10/21/2023 2:40 PM EDT Office Visit Nephrology [address] [place] [address] Shivani Magallon MD [address] [place] [address] 10/27/2023 8:30 AM EDT Office Visit Sleep Disorders Ctr [facility] [address] [place] [phone] Lindsey Sheikh CRNP [address] [place] [address] 11/11/2023 11:00 AM EDT Telemedicine Pharmacy, [facility] [address] [place] [address] Pharmacist1, [facility] [address] [place] [address] 11/11/2023 11:30 AM EDT Telemedicine Pharmacy, [facility] [address] [place] [address] Pharmacist1, [facility] [address] [facility] [place], [place] [address] 12/31/2023 11:45 AM EDT Hospital Encounter ENDO [facility], Endoscopy Room [facility] [address] [place] [phone] José Miguel Sifuentes MD [address] [place] [address] 12/31/2023 11:45 AM EDT - 12/31/2023 12:15 PM EDT Surgery ENDO [facility], Endoscopy Room [facility] [address] [place] [phone] José Miguel Sifuentes MD [address] [place] [address] COLONOSCOPY FLEXIBLE PROXIMAL DIAGNOSTIC 01/14/2024 12:30 PM EDT Cardiac Studies Cardiac Studies [address] [place] [address] 08/08/2024 9:30 AM EST Nurse Only Ancillary [address] [place] [address] [place], Nurse [address] [place] [address] Scheduled Procedures Name Priority Associated Diagnoses Date/Ti [...] this encounter Medical Devices Implanted Type Area Pluck Trimmer Device Identifier Shelf Expiration Date Model / Serial / Lot Lens Intraoc 21.0 - [id number] - [id number] Implanted:Qty: 1 on 01/22/2017 by Cheko Mcnamara MD at OR [facility] Right: Eye BAUSCH & LOMB 08/05/2021 [id number] / [id number] / [id number] Lens Intraoc 21.5 - [id number] - [id number] Implanted:Qty: 1 on 02/03/2017 by Cheko Mcnamara MD at OR [facility] Left: Eye BAUSCH & LOMB 09/02/2021 [id number] / [id number] / [id number] documented as of this encounter Visit Diagnoses Diagnosis Uncontrolled type 2 diabetes mellitus with hyperglycemia (HCC) Special screening for malignant neoplasms, colon [...] and were consensually agreed upon. Care Teams Two Way Radio Installer Relationship Specialty Start Date End Date Sridhar Arshad DO [address] [place] [address] [place] [phone] PCP - General Internal Medicine 08/16/21 documented as of this encounter
--- OUTSIDE RECORDS SUMMARY | 2023-10-20 22:53 | External Medical Summary | Summary of Care ---
Author Name Unknown Organization [facility] Address [address] [facility] [place] [address] Phone [phone] Care Team Providers Care Corsetier Name Role Phone Bárbara Rios Primary Care Provider [phone] Reason for Visit * Reason Onset Date Comments [facility]: Maintenance 09/19/2023 Encounter Details Date Type Department Care Team (Late st Contact Info) Description 09/19/2023 12:50 PM EDT Scheduled Telephone [facility], [facility] 132 [facility] [place] [address] [facility] 132 [facility] [place] [address] Allergies Active Allergy Reactions Criticality Noted Date Comments Other Allergy (See Comments) Rash Low 10/13/2022 1+ cocamidopropyl betaine Sglt2 Inhibitors Other (Please comment) High 09/04/2020 Genital infection Sulfa Antibiotics Rash 10/15/2016 documented as of this encounter (statuses as of 09/19/2023) Medications Medication Sig Dispensed Refills Start Date [...] 32 UNITS WITH DINNER PLUS CORRECTION PER [facility] OR DIRECTED UP TO 120 [...] a week. 9 mL 3 04/09/2023 Active Sgsgk-5-hcdz Ethyl Esters 1 GM Oral Capsule (Lovaza) [...] as of this encounter (statuses as of 09/19/2023) Active Problems Problem Noted Date Diagnosed Date [...] in the Comments) Remote Patient Monitoring Vendor: [employer] Device(s): Connected Scale Self - Management Plan [...] as of this encounter (statuses as of 09/19/2023) Resolved Problems Problem Noted Date Diagnosed Date [...] as of this encounter (statuses as of 09/19/2023) Immunizations Name Administration Dates Next Due COVID-19 mRNA, LNP-s, No Pre serve, 2-Dose Series (Moderna) 12/10/2020,11/12/2020 Hepatitis B, 20+ yrs 01/04/2018,08/03/2017,07/03 Pneumococcal Conjugate Vacci ne, 20-valent ([id number]) 06/09/2022 Pneumococcal Polysaccharide PPV23 (Pneumovax) 03/06/2020 Seasonal [...] encounter Miscellaneous Notes * Telephone Encounter - Harmony Singh RN - 09/19/2023 3:03 PM EDT Images from the original note were not included. Telephone call to pt to f/u on [facility] trigger Wt has been coming up Spoke with pt and he states that he can feel that the fluid is creeping up again. He is having increased SOB today, abdomen is more firm than usual, has some mild congestion and also increased edema of left foot. He recently had torsemide increased to 40mg twice a day routinely and no current DTP on file reflecting this new dose. TT sent to concrete mixing plant superintendent provider and TE routed for recommendations - see other encounter by provider documented in this encounter Plan of Treatment Upcoming Encounters Date Type Department Care Team (Latest Contact Info) Description 09/29/2023 12:30 PM EDT Scheduled Telephone [facility], [facility] [address] [place] [address] Mery Calderon, SUDHIR 1000 [address] [facility] [place] [address] 10/06/2023 2:10 PM EDT Office Visit Family Medicine [address] [place] [phone] Bárbara Rios [address] [place] [address] 10/09/2023 2:30 PM EDT [facility] Visit [facility], [facility] [address] [place] [address] Love Stevens, ANNE MARIE [address] [place] [address] 10/21/2023 2:40 PM EDT Office Visit Nephrology [address] [place] [address] Shivani Magallon MD 200 [facility], [place] [address] 10/27/2023 8:30 AM EDT Office Visit Sleep Disorders Ctr [facility] [address] [place] [phone] Lindsey Sheikh CRNP [address] [place] [address] 11/11/2023 11:00 AM EDT Telemedicine Pharmacy, [facility] 200 [facility] [place] [address] Pharmacist1, [facility] 200 [facility] [place], [place] [address] 11/11/2023 11:30 AM EDT Telemedicine Pharmacy, [facility] 200 [facility] [place] [address] Pharmacist1, [facility] 200 [facility] [place], [place] [address] 12/31/2023 11:45 AM EDT Hospital Encounter ENDO [facility], Endoscopy Room [facility] 132 [place] [phone] José Miguel Sifuentes MD 132 [place] [address] 12/31/2023 11:45 AM EDT - 12/31/2023 12:15 PM EDT Surgery ENDO [facility], Endoscopy Room [facility] [address] [place] [place] [phone] José Miguel Sifuentes MD [address] [place] [address] COLONOSCOPY FLEXIBLE PROXIMAL DIAGNOSTIC 01/14/2024 12:30 PM EDT Cardiac Studies Cardiac Studies [address] [place] [address] 08/08/2024 9:30 AM EST Nurse Only Ancillary [address] [place] [address] [place], Nurse [address] [place] [address] Scheduled Procedures Name Priority Associated Diagnoses Date/Ti [...] this encounter Medical Devices Implanted Type Area Pressroom Worker Device Identifier Shelf Expiration Date Model / Serial / Lot Lens Intraoc 21.0 - [id number] - [id number] Implanted:Qty: 1 on 01/22/2017 by Cheko Mcnamara MD at OR [facility] Right: Eye BAUSCH & LOMB 08/05/2021 [id number] / [id number] / [id number] Lens Intraoc 21.5 - [id number] - [id number] Implanted:Qty: 1 on 02/03/2017 by Cheko Mcnamara MD at OR [facility] Left: Eye BAUSCH & LOMB 09/02/2021 [id number] / [id number] / [id number] documented as of this encounter Advance Directives [...] and were consensually agreed upon. Care Teams Corsetier Relationship Specialty Start Date End Date Bárbara Rios DO [address] [place] [address] [place] [address] PCP - General Internal Medicine 08/16/21 documented as of this encounter
--- OUTSIDE RECORDS SUMMARY | 2023-10-20 22:53 | External Medical Summary | Summary of Care ---
Author Name Unknown Organization [facility] Address [address] [facility] [place] [address] Phone [phone] Care Team Providers Care Fur Feeder Name Role Phone Bárbara Rios Primary Care Provider [phone] Reason for Visit * Reason Onset Date Comments [facility]: Maintenance 09/30/2023 Encounter Details Date Type Department Care Team (Late st Contact Info) Description 09/30/2023 Telephone [facility], [facility] 1000 E [facility] [place] [address] [facility], Nurse [facility] [address] [place] [address] [facility]: Maintenance Allergies Active Allergy [...] a week. 9 mL 3 04/09/2023 Active Ahdmg-1-bvdl Ethyl Esters 1 GM Oral Capsule (Lovaza) Take 2 Capsules by mouth in the morning and 2 Capsules before bedtime. 360 Capsule 1 04/14/2023 Active Carvedilol 25 MG Oral Tablet (Coreg)Indications: HTN, goal below 140/90 TAKE ONE TABLET BY MOUTH EVERY MORNING AND TAKE ONE TABLET BY MOUTH BEFORE BEDTIME 200 Tablet 3 04/19/2023 Active Omeprazole 20 MG Oral Capsule Delayed [...] bedtime. 180 Tablet 3 09/08/2023 Active OneTouch [id number] outdoorsio In Vitro Strip (Glucose Blood)Indications:U ncontrolled type [...] in the Comments) Remote Patient Monitoring Vendor: [employer] Device(s): Connected Scale Self - Management [...] Continues on anju 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 repatha History of [...] yrs 01/04/2018,08/03/2017,07/03 Pneumococcal Conjugate Vacci ne, 20-valent ([id number]) 06/09/2022 Pneumococcal Polysaccharide PPV23 (Pneumovax) 03/06/2020 Seasonal [...] call scheduled Route to RNCM (Registered Nurse Acute Care Physical Therapist) and Advance Practitioner Route to RMC (Remote Medical Coordinator) documented in this encounter Plan of Treatment Upcoming Encounters Date Type Department Care Team (Latest Contact Info) Description 10/06/2023 2:10 PM EDT Office Visit Family Medicine [address] [place] [phone] Bárbara Rios[address] [place] [address] 10/09/2023 4:00 PM EDT Home Visit [facility] 132 [place] [address] Love Stevens, ANNE MARIE 132 [place] [address] 10/21/2023 2:40 PM EDT Office Visit Nephrology [address] [place] [address] Shivani Magallon MD [address] [place] [address] 10/27/2023 8:30 AM EDT Office Visit Sleep Disorders Ctr [facility] [address] [place] [phone] Lindsey Sheikh CRNP [address] [place] [address] 10/29/2023 11:30 AM EDT Scheduled Telephone [facility], [facility] 1000 [address] [facility] [place] [address] Mery Calderon, RDN 1000 [address] [facility] [place] [address] 11/11/2023 11:00 AM EDT Telemedicine Pharmacy, [facility] [address] [place] [address] Pharmacist1, [facility] 200 [facility] [place] [address] 11/11/2023 11:30 AM EDT Telemedicine Pharmacy, [facility] [address] [place] [address] Pharmacist1, [facility] 200 [facility] [place] [address] 12/31/2023 11:45 AM EDT Hospital Encounter ENDO OSS[facility], Endoscopy Room OSS [address] [place] [phone] José Miguel Sifuentes MD [address] [place] [address] 12/31/2023 11:45 AM EDT - 12/31/2023 12:15 PM EDT Surgery ENDO O[facility], Endoscopy Room [facility] [address] [place] [phone] José Miguel Sifuentes MD [address] [place] [address] COLONOSCOPY FLEXIBLE PROXIMAL DIAGNOSTIC 01/14/2024 12:30 PM EDT Cardiac Studies Cardiac Studies [address] [place] [address] 08/08/2024 9:30 AM EST Nurse Only Ancillary [address] [place] [address] [place], Nurse Annual [address] [place] [address] Scheduled Procedures Name Priority Associated Diagnoses Date/Ti [...] this encounter Medical Devices Implanted Type Area Cloth Grader Device Identifier Shelf Expiration Date Model / Serial / Lot Lens Intraoc 21.0 - [id number] - [id number] Implanted:Qty: 1 on 01/22/2017 by Cheko Mcnamara MD at OR [facility] Right: Eye BAUSCH & LOMB 08/05/2021 [id number] / [id number] / [id number] Lens Intraoc 21.5 - [id number] - [id number] Implanted:Qty: 1 on 02/03/2017 by Cheko Mcnamara MD at OR [facility] Left: Eye BAUSCH & LOMB 09/02/2021 [id number] / [id number] / [id number] documented as of this encounter Advance Directives [...] and were consensually agreed upon. Care Teams Fur Feeder Relationship Specialty Start Date End Date Bárbara Rios DO [address] [place] [address] [place] [phone] PCP - General Internal Medicine 08/16/21 documented as of this encounter
--- OUTSIDE RECORDS SUMMARY | 2023-10-20 22:53 | External Medical Summary | Summary of Care ---
Author Name Unknown Organization [facility] Address [address] [facility] [place] [address] Phone [phone] Care Team Providers Care Hydrodynamicist Name Role Phone Bárbara Rios Primary Care Provider [phone] Reason for Visit * Reason Onset Date Comments [facility]: Maintenance 10/04/2023 Encounter Details Date Type Department Care Team (Late st Contact Info) Description 10/04/2023 4:00 PM EDT Scheduled Telephone [facility], [facility] 132 [facility] [place] [address] [facility], Nurse [facility] 132 [facility] [place] [address] Allergies Active Allergy Reactions Criticality Noted Date Comments Other Allergy (See Comments) Rash Low 10/13/2022 1+ cocamidopropyl betaine Sglt2 Inhibitors Other (Please comment) High 09/04/2020 Genital infection Sulfa Antibiotics Rash 10/15/2016 documented as of this encounter (statuses as of 10/04/2023) Medications Medication Sig Dispensed Refills Start Date [...] 32 UNITS WITH DINNER PLUS CORRECTION PER [facility] OR DIRECTED UP TO 120 [...] a week. 9 mL 3 04/09/2023 Active Oxctg-2-dvpn Ethyl Esters 1 GM Oral Capsule (Lovaza) [...] Evolocumab 140 MG/ML Subcutaneous Solution Auto-injector (Repatha Intra-Cellular TherapiesClick)Indicatio ns:Dyslipidemia, goal LDL below 100,Mixed dyslipidemia Inject [...] as of this encounter (statuses as of 10/04/2023) Active Problems Problem Noted Date Diagnosed Date [...] the Comments) Remote Patient Monitoring Vendor: [facility] [place] Device(s): [...] as of this encounter (statuses as of 10/04/2023) Resolved Problems Problem Noted Date Diagnosed Date [...] been better controlled recently. Monitor using freestyle Cidny. NEMESIO (acute kidney injury) 04/30/2022 Severe obesity [...] as of this encounter (statuses as of 10/04/2023) Immunizations Name Administration Dates Next Due COVID-19 mRNA, LNP-s, No Pre serve, 2-Dose Series (Moderna) 12/10/2020,11/12/2020 Hepatitis B, 20+ yrs 01/04/2018,08/03/2017,07/03 Pneumococcal Conjugate Vacci ne, 20-valent ([id number]) 06/09/2022 Pneumococcal Polysaccharide PPV23 (Pneumovax) 03/06/2020 Seasonal [...] encounter Miscellaneous Notes * Telephone Encounter - Carolina Carey RN - 10/04/2023 9:38 AM EDT Images from the original note were not included. [facility] Telephonic Nurse Follow-Up Call [facility] Subprogram: Focused Care Management (3-9 months) Follow Up Call Type: Weekend Call Acute issue requiring follow-up call: Other: DTP Objective: 09/11/2023 11:03 AM 09/04/2023 2:02 PM 09/03/2023 1:45 PM 09/03/2023 10:26 AM 08/26/2023 11:50 AM VITALS ACROSS ENCOUNTERS BP 132/66 118/70 158/72 130/70 Pulse 64 76 64 70 Weight 135.6 kg BMI 40.54 BMI 40.54 kg/m2 Remote Patient Monitoring: [facility] Scale: Oxygen Needs: NO supplemental oxygen needs identified DME Needs: NO DME needs identified Medications: Current DTP: Double dose of Torsemide for 3 days Subjective: Condition Status: No call made as per patient request. He will call [facility] if having any increase in symptoms Current Concerns: No call made Disposition: Issue resolved. All appropriate follow up scheduled. Will monitor via [facility] scales and patient has PCP appt on 10/06/23 Future Visits Scheduled: Future Appointments-next 60 days Date/Time Provider Specialty Dept Phone 10/04/2023 4:00 PM Serina, Nurse [facility] [phone] 10/06/2023 2:10 PM (Arrive by 1:55 PM) Bárbara Rios, Family Medicine [phone] 10/09/2023 4:00 PM Love Stevens RN [facility] [phone] 10/21/2023 2:40 PM (Arrive by 2:25 PM) Shivani Magallon MD Nephrology [phone] 10/27/2023 8:30 AM (Arrive by 8:15 AM) Lindsey Sheikh CRNP Sleep Disorders [phone] 10/29/2023 11:30 AM Mery Calderon RDN [facility] [phone] 11/11/2023 11:00 AM Pharmacist1, [facility] [phone] 11/11/2023 11:30 AM Pharmacist1, [facility] [phone] 01/14/2024 12:30 PM CORE MAKER HELPER [facility] Cardiac Studies [phone] 08/08/2024 9:30 AM Nurse [facility] Annual Wellness Ancillary [phone] Carolina Carey RN documented in this encounter Plan of Treatment Upcoming Encounters Date Type Department Care Team (Latest Contact Info) Description 10/06/2023 2:10 PM EDT Office Visit Family Medicine [address] [place] [phone] Bárbara Rios[address] [place] [address] 10/09/2023 4:00 PM EDT [facility] Visit [facility] [place], [facility] 132 [facility] [place] [address] Love Stevens, RN [address] [place] [address] 10/21/2023 2:40 PM EDT Office Visit Nephrology [address] [place] [address] Shivani Magallon MD [address] [place] [address], [place] [address] 10/27/2023 8:30 AM EDT Office Visit Sleep Disorders Ctr [facility] 132 [place] [phone] Lindsey Sheikh CRNP 132 [place] [address] 10/29/2023 11:30 AM EDT Scheduled Telephone [facility], [facility] 1000 [address] [facility] [place] [address] Mery Calderon, RDN 1000 [address] [facility] [place] [address] 11/11/2023 11:00 AM EDT Telemedicine Pharmacy, [facility] [address] [place] [address] Pharmacist1, [facility] 200 [facility] [address] 11/11/2023 11:30 AM EDT Telemedicine Pharmacy, [facility] [address] [place] [address] Pharmacist1, [facility] 200 [facility] [place] [address] 12/31/2023 11:45 AM EDT Hospital Encounter ENDO OSS, Endoscopy Room [facility] 132 [place] [phone] José Miguel Sifuentes MD [address] [place] [address] 12/31/2023 11:45 AM EDT - 12/31/2023 12:15 PM EDT Surgery ENDO [facility], Endoscopy Room [facility] 132 [place] [phone] José Miguel Sifuentes MD [address] [place] [address] COLONOSCOPY FLEXIBLE PROXIMAL DIAGNOSTIC 01/14/2024 12:30 PM EDT Cardiac Studies Cardiac Studies [address] [place] [address] 08/08/2024 9:30 AM EST Nurse Only Ancillary [address] [place] [address] [place], Nurse Annual [address] [place] [address] Scheduled Procedures Name Priority Associated Diagnoses Date/Ti [...] this encounter Medical Devices Implanted Type Area Hoisting Engineer Pile Driving Device Identifier Shelf Expiration Date Model / Serial / Lot Lens Intraoc 21.0 - [id number] - [id number] Implanted:Qty: 1 on 01/22/2017 by Cheko Mcnamara MD at OR [facility] Right: Eye BAUSCH & LOMB 08/05/2021 [id number] / [id number] / [id number] Lens Intraoc 21.5 - [id number] - [id number] Implanted:Qty: 1 on 02/03/2017 by Cheko Mcnamara MD at OR [facility] Left: Eye BAUSCH & LOMB 09/02/2021 [id number] / [id number] / [id number] documented as of this encounter Advance Directives [...] and were consensually agreed upon. Care Teams Hydrodynamicist Relationship Specialty Start Date End Date Bárbara Rios DO [address] [place] [address] [place] [phone] PCP - General Internal Medicine 08/16/21 documented as of this encounter
--- OUTSIDE RECORDS SUMMARY | 2023-10-20 22:53 | External Medical Summary | Summary of Care ---
Author Name Unknown Organization [facility] Address [address] [facility] [place] [address] Phone [phone] Care Team Providers Care Business Systems Advisor Name Role Phone Bárbara Rios Primary Care Provider Reason for Visit * Reason Onset Date Comments [facility]: Acute 09/19/2023 Encounter Details Date Type Department Care Team (Late st Contact Info) Description 09/19/2023 Telephone Family Practice 65 [facility], Eugenio [address] [place] [address] Niko Pandya MD [address] [place] [address] [facility]: Acute Allergies Active Allergy [...] 07/14/2022 OneTouch Verio In Vitro Strip (Glucose Blood)Indications: [...] a week. 9 mL 3 04/09/2023 Active Awnjk-2-ewrm Ethyl Esters 1 GM Oral Capsule (Lovaza) [...] before bedtime. 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 315 Tablet 3 09/08/2023 4 Discontinu ed(Medicat ion List Clean Up) Hospital, Clinic, or Other Facility Administered Medication [...] in the Comments) Remote Patient Monitoring Vendor[place] [facility] [place] Device(s): Connected Scale Self - Management Plan [...] yrs 01/04/2018,08/03/2017,07/03 Pneumococcal Conjugate Vacci ne, 20-valent ([id number]) 06/09/2022 Pneumococcal Polysaccharide PPV23 (Pneumovax) 03/06/2020 Seasonal [...] encounter Miscellaneous Notes * Telephone Encounter - Niko Pandya MD - 09/19/2023 3:24 PM EDT Images from the original note were not included. airways operations specialist note I received a text from nurse: "Tony Delong [phone] is up 4 lbs this week. Having increased SOB, distention, left foot edema, congestion. States he can feel the fluid creeping up again. A few weeks ago torsemide routine dose was increased to 40mg twice a day. No current dtp on file for this dose. What would you recommend? Double for 3 days?" ___ Reviewed weight: Patient weight is up 3.4 pounds in last 7 days (since 09/12/23), and 1.6 pounds since yesterday. Is probably about 2-3 pounds above baseline. Since he reports symptom increase: "increased SOB, distention, left foot edema, congestion. States he can feel the fluid creeping up again." Is reasonable to increase diuresis, and monitor weight, symptoms, and Potassium. However, in talking to patient he reports that he thinks today's extra weighttriggered by eating out last night for his 's birthday. - discussed options of watching until tomorrow (he reports doesn't feel too be right now, hasn't gotten as bad as can get in past) vs increasing afternoon dose of Furosemide (he hasn't yet taken dose). He wanted to take increased dose tonight, will have try 60 mg (instead of 40 mg) and reevaluate after tomorrow weight documented in this encounter Plan of Treatment Upcoming Encounters Date Type Department Care Team (Latest Contact Info) Description 09/29/2023 12:30 PM EDT Scheduled Telephone [facility], [facility] 1000 [address] [facility] [place] [address] Mery Calderon RDN 1000 [address] [facility] [place] [address] 10/06/2023 2:10 PM EDT Office Visit Family Medicine [address] [place] [phone] Bárbara Rios[address] [place] [address] 10/09/2023 2:30 PM EDT [facility] Visit [facility] [place], [facility] 132 [facility] [place] [address] Love Stevens, ANNE MARIE 132 [facility] [place] [address] 10/21/2023 2:40 PM EDT Office Visit Nephrology [address] [place] [address] Shivani Magallon MD [address] [place] [address] [place] [address] 10/27/2023 8:30 AM EDT [facility] 132 [facility] [place] [phone] Lindsey Sheikh CRNP [address] [place] [address] 11/11/2023 11:00 AM EDT Telemedicine Pharmacy, [facility] [address] [place] [address] Pharmacist1, [facility] [address] [place] [address] 11/11/2023 11:30 AM EDT Telemedicine Pharmacy, [facility] [address] [place] [address] Pharmacist1, [facility] [address] [place] [address] 12/31/2023 11:45 AM EDT Hospital Encounter ENDO OSS[facility], Endoscopy Room [facility] [address] [place] [phone] José Miguel Sifuentes MD [address] [place] [address] 12/31/2023 11:45 AM EDT - 12/31/2023 12:15 PM EDT Surgery ENDO [facility], Endoscopy Room [facility] [address] [place] [phone] José Miguel Sifuentes MD [address] [place] [address] COLONOSCOPY FLEXIBLE PROXIMAL DIAGNOSTIC 01/14/2024 12:30 PM EDT Cardiac Studies Cardiac Studies [address] [place] [address] 08/08/2024 9:30 AM EST Nurse Only Ancillary [address] [place] [address] [place], Nurse [address] [place] [address] Scheduled Procedures Name Priority Associated Diagnoses Date/Ti [...] this encounter Medical Devices Implanted Type Area Seasonal Warehouse Associate Device Identifier Shelf Expiration Date Model / Serial / Lot Lens Intraoc 21.0 - [id number] - [id number] Implanted:Qty: 1 on 01/22/2017 by Cheko Mcnamara MD at OR [facility] Right: Eye BAUSCH & LOMB 08/05/2021 [id number] / [id number] / [id number] Lens Intraoc 21.5 - [id number] - [id number] Implanted:Qty: 1 on 02/03/2017 by Cheko Mcnamara MD at OR [facility] Left: Eye BAUSCH & LOMB 09/02/2021 [id number] / [id number] / [id number] documented as of this encounter Advance Directives [...] were consensually agreed upon. Care Teams Business Systems Advisor Relationship Specialty Start Date End Date Bárbara Rios DO [address] [place] [address] [place] [phone] PCP - General Internal Medicine 08/16/21 documented as of this encounter
--- OUTSIDE RECORDS SUMMARY | 2023-10-20 22:53 | External Medical Summary | Summary of Care ---
Author Name Unknown Organization [facility] Address [address] [place] [address] Phone [phone] Care Team Providers Care Alignment Mechanic Name Role Phone Bárbara Rios Primary Care Provider [phone] Reason for Visit * Reason Onset Date Comments [facility]: Maintenance 09/30/2023 Encounter Details Date Type Department Care Team (Late st Contact Info) Description 09/30/2023 Telephone [facility], [facility] [address] [facility] [place] [address] [facility], Nurse [facility] [address] [place] [address] [facility]: Maintenance Allergies Active Allergy [...] 32 UNITS WITH DINNER PLUS CORRECTION PER [facility] OR DIRECTED UP [...] a week. 9 mL 3 3 Active Gbuvb-5-jlam Ethyl Esters 1 GM Oral Capsule (Lovaza) [...] Evolocumab 140 MG/ML Subcutaneous Solution Auto-injector (Repatha Knoa SoftwareClick)Indicati ons:Dyslipidemia, goal LDL below 100,Mixed dyslipidemia Inject [...] in the Comments) Remote Patient Monitoring Vendor: Connotate Device(s): Connected Scale Self - Management Plan [...] yrs 01/04/2018,08/03/2017,07/03 Pneumococcal Conjugate Vacci ne, 20-valent ([id number]) 06/09/2022 Pneumococcal Polysaccharide PPV23 (Pneumovax) 03/06/2020 Seasonal [...] as of this encounter Miscellaneous Notes * Addendum Note - Prince Sullivan MD [...] call scheduled Route to RNCM (Registered Nurse Perianesthesia Manager) and Advance Practitioner Route to RMC (Remote Medical Coordinator) documented in this encounter Plan of Treatment Upcoming Encounters Date Type Department Care Team (Latest Contact Info) Description 10/06/2023 2:10 PM EDT Office Visit [address] [place] [address] [address] R[address] [place] [address] 10/09/2023 4:00 PM EDT Home Visit [facility], [facility] 132 [facility] [place] [address] Love Stevens RN 132 [facility] [place] [address] 10/21/2023 2:40 PM EDT Office Visit Nephrology [address] [place] [address] Shivani Magallon MD 200 [facility] [place] [address] 10/27/2023 8:30 AM EDT Office Visit Sleep Disorders Ctr [facility] 132 [facility] [place] [phone] Lindsey Sheikh CRNP 132 [facility] [place] [address] 10/29/2023 11:30 AM EDT Scheduled Telephone [facility], [facility] [address] [facility] [place] [address] Mery Calderon RDN [address] [facility] [place] [address] 11/11/2023 11:00 AM EDT Telemedicine Pharmacy, [place] 200 [facility] [place] [address] Pharmacist1, [facility] 200 [facility] [place] [address] 11/11/2023 11:30 AM EDT Telemedicine Pharmacy, [facility] [place] [address] [place] [address] Pharmacist1, [facility] [place] [address] 12/31/2023 11:45 AM EDT Hospital Encounter ENDO [facility], Endoscopy Room [facility] [address] [place] [phone] José Miguel Sifuentes MD [address] [place] [address] 12/31/2023 11:45 AM EDT - 12/31/2023 12:15 PM EDT Surgery ENDO [facility], Endoscopy Room [facility] [address] [place] [phone] José Miguel Sifuentes MD [address] [place] [address] COLONOSCOPY FLEXIBLE PROXIMAL DIAGNOSTIC 01/14/2024 12:30 PM EDT Cardiac Studies Cardiac Studies [address] [place] [address] 08/08/2024 9:30 AM EST Nurse Only Ancillary [address] [place] [address] [place], Nurse [address] [place] [address] Scheduled Procedures Name Priority Associated Diagnoses Date/Ti [...] this encounter Medical Devices Implanted Type Area Cold Mill Supervisor Device Identifier Shelf Expiration Date Model / Serial / Lot Lens Intraoc 21.0 - [id number] - [id number] Implanted:Qty: 1 on 01/22/2017 by Cheko Mcnamara MD at OR [facility] Right: Eye [employer]USCH [employer] LOMB 08/05/2021 [id number] / [id number] / [id number] Lens Intraoc 21.5 - [id number] - [id number] Implanted:Qty: 1 on 02/03/2017 by Cheko Mcnamara MD at OR [facility] Left: Eye BAUSCH & LOMB 09/02/2021 [id number] / [id number] / [id number] documented as of this encounter Advance Directives [...] and were consensually agreed upon. Care Teams Alignment Mechanic Relationship Specialty Start Date End Date Bárbara Rios DO [address] [place] [address] [place] [address] PCP - General Internal Medicine 08/16/21 documented as of this encounter
--- OUTSIDE RECORDS SUMMARY | 2023-10-20 22:53 | External Medical Summary | Summary of Care ---
Author Name Unknown Organization [facility] Address [address] [facility] [place] [address] Phone [phone] Care Team Providers Care Retail Service Specialist Name Role Phone Bárbara Rios Primary Care Provider [phone] Reason for Visit * Reason Onset Date Comments Precert Approved 06/22/2023 Repatha 140mg/m L sureclick pen Encounter Details Date Type Department Care Team (Late st Contact Info) Description 06/22/2023 Telephone Cardiology, [facility] [address] [place] [place] [address] Evita Brennan CRNP [address] [place] [address] Precert Approved (Repatha 140mg/mL surecli... Allergies Active Allergy Reactions Criticality Noted Date Comments Other Allergy (See Comments) Rash Low 10/13/2022 1+ cocamidopropyl betaine Sglt2 Inhibitors Other (Please comment) High 09/04/2020 Genital infection Sulfa Antibiotics Rash 10/15/2016 documented as of this encounter (statuses as of 09/21/2023) Medications Medication Sig Dispensed Refills Start Date [...] 32 UNITS WITH DINNER PL[facility]RE[facility] OR DIRECTED UP TO 120 [...] a week. 9 mL 3 04/09/2023 Active Pyqeq-0-dfss Ethyl Esters 1 GM Oral Capsule (Lovaza) [...] 14 days. 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 315 Tablet 3 03/17/2023 4 Discontinu ed(Refill) Lisinopril 10 MG Oral Tablet (Prinivil) Take 2 Tablets by mouth in the morning. 180 Tablet 1 04/02/2023 4 Discontinu ed(Refill) Potassium Chloride [place] ER 10 MEQ Oral Tablet Extended ReleaseIndications :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) Take 1 Tablet by mouth in the morning. 30 Tablet 5 04/24/2023 4 Discontinu ed(Refill) Hospital, Clinic, or Other [...] as of this encounter (statuses as of 09/21/2023) Active Problems Problem Noted Date Diagnosed Date [...] the Comments) Remote Patient Monitoring Vendor: [facility] Device(s): Connected Scale Self [...] as of this encounter (statuses as of 09/21/2023) Resolved Problems Problem Noted Date Diagnosed Date [...] as of this encounter (statuses as of 09/21/2023) Immunizations Name Administration Dates Next Due COVID-19 mRNA, LNP-s, No Pre serve, 2-Dose Series (Moderna) 12/10/2020,11/12/2020 Hepatitis B, 20+ yrs 01/04/2018,08/03/2017,07/03 Pneumococcal Conjugate Vacci ne, 20-valent ([id number]) 06/09/2022 Pneumococcal Polysaccharide PPV23 (Pneumovax) 03/06/2020 Seasonal [...] Tobacco: Never Alcohol Use Standard Drinks/Week Comments No 0 (1 standard drink = 0.6 oz pur e alcohol) PHQ-2 Answer Date Recorded PHQ Adult Total [...] encounter Miscellaneous Notes * Telephone Encounter - Ariadna Nelson CPhT - 06/22/2023 12:14 PM EST New or re-auth: new Patient Tony Delong needs a prior authorization for their Repatha through their [employer] insurance. ID: [id number] BIN:[id number] PCN:[id number] Target ship date is parish. Thank you very much, Ariadna Nelson CPhT Credit Support Specialist [facility] Specialty RX 06/22/2023,12:14 PM documented in this encounter Plan of Treatment Upcoming Encounters Date Type Department Care Team (Latest Contact Info) Description 09/29/2023 12:30 PM EDT Scheduled Telephone [facility], [facility] [address] [facility] [place] [address] Mery Calderon, VIVIANAN [address] [facility] [place] [address] 10/06/2023 2:10 PM EDT Office Visit Family Medicine [address] [place] [phone] Bárbara Rios[address] [place] [address] 10/09/2023 4:00 PM EDT [facility] Visit [facility], [facility] [address] [place] [address] Love Stevens, ANNE MARIE [address] [place] [address] 10/21/2023 2:40 PM EDT Office Visit Nephrology [address] [place] [address] Shivani Magallon MD [address] [place] [address] 10/27/2023 8:30 AM EDT Office Visit Sleep Disorders Ctr [employer] [address] [place] [phone] Lindsey Sheikh CRNP [address] [place] [address] 11/11/2023 11:00 AM EDT Telemedicine Pharmacy, [employer] [address] [place] [address] Pharmacist1, [facility] [address] [place] [address] 11/11/2023 11:30 AM EDT Telemedicine Pharmacy, Susan Palacios [place] [address] [place] [address] Pharmacist1, [facility] [address] [place] [address] 12/31/2023 11:45 AM EDT Hospital Encounter ENDO [facility], Endoscopy Room [facility] [address] [place] [phone] José Miguel Sifuentes MD [address] [place] [address] 12/31/2023 11:45 AM EDT - 12/31/2023 12:15 PM EDT Surgery ENDO [facility], Endoscopy Room [facility] [address] [place] [phone] José Miguel Sifuentes MD [address] [place] [address] COLONOSCOPY FLEXIBLE PROXIMAL DIAGNOSTIC 01/14/2024 12:30 PM EDT Cardiac Studies Cardiac Studies [address] [place] [address] 08/08/2024 9:30 AM EST Nurse Only Ancillary [address] [place] [address] [place], Nurse Annual [address] [place] [address] Scheduled Procedures Name Priority Associated Diagnoses Date/Ti [...] this encounter Medical Devices Implanted Type Area Offshoring Manager Device Identifier Shelf Expiration Date Model / Serial / Lot Lens Intraoc 21.0 - [id number] - [id number] Implanted:Qty: 1 on 01/22/2017 by Cheko Mcnamara MD at OR [facility] Right: Eye BAUSCH & LOMB 08/05/2021 [id number] / [id number] / [id number] Lens Intraoc 21.5 - [id number] - [id number] Implanted:Qty: 1 on 02/03/2017 by Cheko Mcnamara MD at OR [facility] Left: Eye BAUSCH & LOMB 09/02/2021 [id number] / [id number] / [id number] documented as of this encounter Advance Directives [...] and were consensually agreed upon. Care Teams Retail Service Specialist Relationship Specialty Start Date End Date Bárbara Rios DO [address] [place] [address] [place] [address] PCP - General Internal Medicine 08/16/21 documented as of this encounter
--- OUTSIDE RECORDS SUMMARY | 2023-10-20 22:54 | External Medical Summary | Summary of Care ---
Author Name Unknown Organization [facility] Address [address] [facility] [place] [address] Phone [phone] Care Team Providers Care General Expeditor Name Role Phone Bárbara Rios Primary Care Provider [phone] Reason for Visit * Reason Comments [facility]: Maintenance Encounter Details Date Type Department Care Team (Late st Contact Info) Description 09/04/2023 2:30 PM EST Home Visit [facility], [facility] [address] [place] [address] Love Stevens, RN [address] [place] [address] Allergies Active Allergy Reactions Criticality Noted Date Comments Other Allergy (See Comments) Rash Low 10/13/2022 1+ cocamidopropyl betaine Sglt2 Inhibitors Other (Please comment) High 09/04/2020 Genital infection Sulfa Antibiotics Rash 10/15/2016 documented as of this encounter (statuses as of 09/05/2023) Medications Medication Sig Dispensed Refills Start Date [...] a week. 9 mL 3 04/09/2023 Active Borkm-5-weqo Ethyl Esters 1 GM Oral Capsule (Lovaza) [...] 1 Tablet before bedtime. 180 Tablet 3 09/03/2023 Active Hospital, Clinic, or Other Facility Administered [...] as of this encounter (statuses as of 09/05/2023) Active Problems Problem Noted Date Diagnosed Date [...] in the Comments) Remote Patient Monitoring Vendor: [employer] Device(s): Connected Scale Self - Management Plan [...] for repatha History of tobacco use 08/18/2017 CHAPINCTIO on CPAP 08/18/2017 Overview: ?18cwp Type 2 [...] as of this encounter (statuses as of 09/05/2023) Resolved Problems Problem Noted Date Diagnosed Date [...] as of this encounter (statuses as of 09/05/2023) Immunizations Name Administration Dates Next Due COVID-19 mRNA, LNP-s, No Pre serve, 2-Dose Series (Moderna) 12/10/2020,11/12/2020 Hepatitis B, 20+ yrs 01/04/2018,08/03/2017,07/03 Pneumococcal Conjugate Vacci ne, 20-valent ([id number]) 06/09/2022 Pneumococcal Polysaccharide PPV23 (Pneumovax) 03/06/2020 Seasonal [...] Sign Reading Time Taken Comments Blood Pressure 118/70 09/04/2023 2:02 PM EST Pulse 76 09/04/2023 2:02 PM EST Temperature 36.8 C (98.2 F) 09/04/2023 2:02 PM ES T Respiratory Rate 18 09/04/2023 2:02 PM EST Oxygen Saturation 96% 09/04/2023 2:02 PM EST Inhaled Oxygen Concentration - - Weight - - Height - - Body Mass Index - - documented in this encounter Progress Notes * Love Stevens RN - 09/04/2023 2:02 PM EST Images from the original note were not included. [facility] [employer] Visit Date: 09/04/2023 Time: 2:02 PM Name: Tony Delong : 1960 Current Concerns: Patient seen for close follow up- Received IV lasix 160mg yesterday. Torsemide increased to 40mg BID routinely. Potassium 10meq BID. Weight loss ~5lbs/ 24 hours See weights below. Sob return to baseline Abdominal distention improved Reports being fatigued but overall improved. Voices understanding of medication changes. FBS- 148- Blood sugar during visit- 135. VS wnl Lungs clear but diminished Sob with exertion No LE edema noted Appetite good Taking fluids well- restriction Problems/Symptoms: Review of Systems Constitutional: Negative. HENT: Negative. Eyes: Negative. Respiratory: Positive for shortness of breath. Cardiovascular: Negative. Gastrointestinal: Negative. Endocrine: Negative. Genitourinary: Negative. Musculoskeletal: Negative. Neurological: Negative. Hematological: Negative. Psychiatric/Behavioral: Negative. Physical Exam: BP 118/70 (BP Site: Left Arm, BP Position: Sitting, BP Cuff Size: Regular) | Pulse 76 | Temp 36.8 C (98.2 F) (Tympanic) | Resp 18 | SpO2 96% Pain 3 Physical Exam Constitutional: Appearance: Normal appearance. Cardiovascular: Rate and Rhythm: Normal rate and regular rhythm. Pulses: Normal pulses. Pulmonary: Effort: Pulmonary effort is normal. Breath sounds: Normal breath sounds. Abdominal: General: Bowel sounds are normal. There is distension. Musculoskeletal: General: Normal range of motion. Skin: General: Skin is warm and dry. Capillary Refill: Capillary refill takes 2 to 3 seconds. Neurological: General: No focal deficit present. Mental Status: He is alert and oriented to person, place, and time. Psychiatric: Mood and Affect: Mood normal. Behavior: Behavior normal. [facility]-10 Completed this Visit: No. Routine visit Treatment/Plan: Torsemide 40mg BID AMC scale- weigh daily Low na/diabetic diet Blood sugars QID Potassium 10 meq BID Continue medications as prescribed Keep all upcoming MD appointments Fall precautions Fall precautions Home Interventions Provided: Reinforced current Plan of Care, including self-management and medication regimen Patient Needs to Remember: Call [facility] with any medical concerns/ red flags Referrals Needed: N/a Follow Up: Is there cellular connectivity/connectivity in the home? Yes Does the patient have internet in the home? Yes Patient encouraged to call the intake phone number for all urgent but not emergent issues. Scheduled to follow up with patient in 1 week. Love Du RN 09/04/2023 2:02 PM documented in this encounter Plan of Treatment Upcoming Encounters Date Type Department Care Team (Latest Contact Info) Description 09/06/2023 8:30 AM EST Scheduled Telephone [facility], [address] [place] [address] [facility], Nurse [address] [place] [address] 09/11/2023 8:30 AM EST Home Visit [facility], [facility] [address] [place] [address] Love Stevens, ANNE MARIE [address] [place] [address] 09/16/2023 11:00 AM EDT Telemedicine Pharmacy, [facility] [place] [address] [place] [address] Pharmacist1, [facility] [address] [place] [address] 09/29/2023 12:30 PM EDT Scheduled Telephone [facility], [facility] [address] [facility] [place] [address] Mery Calderon RDN [address] [facility] [place] [address] 10/06/2023 2:10 PM EDT Office Visit Family Medicine [address] [place] [address] Bárbara R[address] [place] [address] 10/21/2023 2:40 PM EDT Office Visit Nephrology [address] [place] [address] Shivani Magallon MD 200 [facility] [place] [address] 10/27/2023 8:30 AM EDT Office Visit Sleep Disorders Ctr [facility], [place] [address] [place] [phone] Lindsey Sheikh CRNP 132 [place] [address] 12/31/2023 11:45 AM EDT Hospital Encounter ENDO [facility], Endoscopy Room [facility] [address] [place] [phone] José Miguel Sifuentes MD [address] [place] [address] 12/31/2023 11:45 AM EDT - 12/31/2023 12:15 PM EDT Surgery ENDO [facility], Endoscopy Room [facility] [address] [place] [phone] José Miguel Sifuentes MD [address] [place] [address] COLONOSCOPY FLEXIBLE PROXIMAL DIAGNOSTIC 01/14/2024 12:30 PM EDT Cardiac Studies Cardiac Studies [address] [place] [address] 08/08/2024 9:30 AM EST Nurse Only Ancillary [address] [place] [address] [place], Nurse Annual [address] [place] [address] Scheduled Procedures Name Priority Associated Diagnoses Date/Ti [...] ASSESSMENT COMPLETED IN PAST YEAR FOR COPD 09/03/2024 09/04/2023 Arreola's Esophagus Surveilance 06/16/2025 06/16/2022, 06/16/2022, 03/20/2022, [...] this encounter Medical Devices Implanted Type Area Finish Machine Tender Device Identifier Shelf Expiration Date Model / Serial / Lot Lens Intraoc 21.0 - [id number] - [id number] Implanted:Qty: 1 on 01/22/2017 by Cheko Mcnamara MD at OR [facility] Right: Eye BAUSCH [employer] LOMB 08/05/2021 [id number] / [id number] / [id number] Lens Intraoc 21.5 - [id number] - [id number] Implanted:Qty: 1 on 02/03/2017 by Cheko Mcnamara MD at OR [facility] Left: Eye BAUSCH & LOMB 09/02/2021 [id number] / [id number] / [id number] documented as of this encounter Advance Directives [...] and were consensually agreed upon. Care Teams General Expeditor Relationship Specialty Start Date End Date Bárbara Rios DO [address] [place] [address] [place] [address] PCP - General Internal Medicine 08/16/21 documented as of this encounter
--- OUTSIDE RECORDS SUMMARY | 2023-10-20 22:54 | External Medical Summary | Summary of Care ---
Author Name Unknown Organization [facility] Address [address] [facility] [place] [address] Phone [phone] Care Team Providers Care Upholstery Restorer Name Role Phone Bárbara Rios Primary Care Provider [phone] Reason for Visit * Reason Onset Date Comments Medication Refill 08/31/2023 Encounter Details Date Type Department Care Team (Late st Contact Info) Description 08/31/2023 Telephone [facility], [facility] [address] [facility] [place] [address] Elis Mulligan DO [address] [facility] [place] [address] Medication Refill Allergies Active Allergy Reactions Criticality Noted Date Comments Other Allergy (See Comments) Rash Low 10/13/2022 1+ cocamidopropyl betaine Sglt2 Inhibitors Other (Please comment) High 09/04/2020 Genital infection Sulfa Antibiotics Rash 10/15/2016 documented as of this encounter (statuses as of 09/08/2023) Medications Medication Sig Dispensed Refills Start Date [...] A DAY. DX: E11.9 300 Strip 3 2 Active Additional Information Patient taking differently: USE [...] to torsemide. 30 Tablet 0 3 Active DIURETIC TITRATION PLAN If no improvement on day 3, contact heart failure managing provider. 60 Each 0 3 02/12/20 24 Active BD Pen Needle Short U/F 31G [...] a week. 9 mL 3 3 Active Xhjvt-6-zrhi Ethyl Esters 1 GM Oral Capsule (Lovaza) [...] 1 Tablet by mouth in the morning. 90 Tablet 3 4 09/03/19 24 Discontinued Torsemide 20 MG Oral Tablet (Demadex)Indicatio ns:Hypertensive 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 (HCC) 40mg in the morning and 20mg in the afternoon. 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 [employer] History of tobacco use 08/18/2017 CHAPINCITO on [...] as of this encounter (statuses as of 09/08/2023) Resolved Problems Problem Noted Date Diagnosed Date [...] as of this encounter (statuses as of 09/08/2023) Immunizations Name Administration Dates Next Due COVID-19 mRNA, LNP-s, No Pre serve, 2-Dose Series (Moderna) 12/10/2020,11/12/2020 Hepatitis B, 20+ yrs 01/04/2018,08/03/2017,07/03 Pneumococcal Conjugate Vacci ne, 20-valent ([id number]) 06/09/2022 Pneumococcal Polysaccharide PPV23 (Pneumovax) 03/06/2020 Seasonal [...] encounter Miscellaneous Notes * Telephone Encounter - Eleuterio Rose MD - 09/08/2023 9:07 AM EST Torsemide was sent last week by [facility]. If he is still in need of medications, please put in the proper medication refill request for them * Telephone Encounter - Emani Nguyen OSA - 09/07/2023 9:59 AM EST Patient calling in wanting to know why this medication was never filled. He wants a call back todayregarding this. Patient does not want to end up in the hospital by not getting this medications. Completely out of the meds! * Telephone Encounter - Mary Jane Moser RN - 08/31/2023 2:34 PM EST Routing to ordering provider Violette Moser RN, BSN [facility] Intake Triage Coordinator [phone] * Telephone Encounter - Peri Lopez CPhT - 08/31/2023 2:23 PM EST Pharmacy calling requesting the following medication below that is listed as "Historical". The following information was provided: Medication Name: torsemide 20mg Directions: 20mg in am and 20mg in pm Preferred Quantity: 90 day supply Previous Prescriber: elis mulligan Preferred Pharmacy: [email or web address] Please review and approve if appropriate. Thank you, Peri Lopez CPhT Construction Trades Teacher Centralized Clinical Pharmacy Services (CCPS) (Formerly Telepharmacy) 08/31/2023, 2:23 PM documented in this encounter Plan of Treatment Upcoming Encounters Date Type Department Care Team (Latest Contact Info) Description 09/11/2023 8:30 AM EST Home Visit [facility], [facility] [address] [facility] [place] [address] Love Stevens, RN 132 [facility] [place] [address] 09/16/2023 11:00 AM EDT Telemedicine Pharmacy, [facility] [place] [address] [facility] [place] [address] Pharmacist1, [facility] 200 [facility] [place] [address] 09/29/2023 12:30 PM EDT Scheduled Telephone [facility], [facility] [address] [facility] [place] [address] Mery Calderon RDN [address] [facility] [place] [address] 10/06/2023 2:10 PM EDT Office Visit Family Medicine [address] [place] [phone] Bárbara Rios[address] [place] [address] 10/21/2023 2:40 PM EDT Office Visit Nephrology [address] [place] [address] Shivani Magallon MD [address] [place] [address] 10/27/2023 8:30 AM EDT Office Visit [facility] Ctr [facility] [place] [address] [place] [phone] Lindsey Sheikh CRNP [address] [place] [address] 12/31/2023 11:45 AM EDT Hospital Encounter ENDO [facility], Endoscopy Room [facility] [address] [place] [phone] José Miguel Sifuentes MD [address] [place] [address] 12/31/2023 11:45 AM EDT - 12/31/2023 12:15 PM EDT Surgery ENDO [facility], Endoscopy Room [facility] [address] [place] [phone] José Miguel Sifuentes MD [address] [place] [address] COLONOSCOPY FLEXIBLE PROXIMAL DIAGNOSTIC 01/14/2024 12:30 PM EDT Cardiac Studies Cardiac Studies [address] [place] [address] 08/08/2024 9:30 AM EST Nurse Only Ancillary [address] [place] [address] [place], Nurse Annual [address] [place] [address] Scheduled Procedures Name Priority Associated Diagnoses Date/Ti [...] this encounter Medical Devices Implanted Type Area Clinical Engineering Director Device Identifier Shelf Expiration Date Model / Serial / Lot Lens Intraoc 21.0 - [id number] - [id number] Implanted:Qty: 1 on 01/22/2017 by Cheko Mcnamara MD at OR [facility] Right: Eye [employer] LOMB 08/05/2021 [id number] / [id number] / [id number] Lens Intraoc 21.5 - [id number] - [id number] Implanted:Qty: 1 on 02/03/2017 by Cheko Mcnamara MD at OR [facility] Left: Eye BAUSCH [employer] LOMB 09/02/2021 [id number] / [id number] / [id number] documented as of this encounter Visit Diagnoses [...] and were consensually agreed upon. Care Teams Upholstery Restorer Relationship Specialty Start Date End Date Bárbara Rios DO [address] [place] [address] [place] [address] PCP - General Internal Medicine 08/16/21 documented as of this encounter
--- OUTSIDE RECORDS SUMMARY | 2023-10-20 22:54 | External Medical Summary | Summary of Care ---
Author Name Unknown Organization [facility] Address [address] [facility] [place] [address] Phone [phone] Care Team Providers Care Patient Monitor Name Role Phone Bárbara Rios DO Primary Care Provider Reason for Visit * Reason Onset Date Comments Medication Refill 09/08/2023 Encounter Details Date Type Department Care Team (Late st Contact Info) Description 09/08/2023 Refill Family Medicine [address] [place] [phone] Bárbara Rios [address] [place] [address] Hypertensive 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 (HCC); Hypertensive heart and kidney disease with [...] 32 UNITS WITH DINNER PLUS CORRECTION PER [facility] OR DIRECTED UP TO 120 [...] a week. 9 mL 3 04/09/2023 Active Lsvjd-1-wpmq Ethyl Esters 1 GM Oral Capsule (Lovaza) [...] 09/03/2023 Active Torsemide 20 MG Oral Tablet (Demadex)Indicatio [...] 315 Tablet 3 03/17/2023 4 Discontinu ed(Refill) Potassium Chloride Gaviota ER 10 MEQ Oral Tablet Extended ReleaseIndications :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) Take 1 Tablet by mouth in the morning and 1 Tablet before bedtime. 180 Tablet 3 09/03/2023 4 Discontinu ed(Refill) Hospital, Clinic, or Other [...] Remote Patient Monitoring Vendor: [facility] Device(s): Connected Scale Self - Management Plan [...] Continues on lovaza 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 [employer] History of tobacco use 08/18/2017 CHAPINCITO on [...] has been better controlled recently. Monitor using Vidappstyle Cindy. NEMESIO (acute kidney injury) 04/30/2022 Severe [...] yrs 01/04/2018,08/03/2017,07/03 Pneumococcal Conjugate Vacci ne, 20-valent ([id number]) 06/09/2022 Pneumococcal Polysaccharide PPV23 (Pneumovax) 03/06/2020 Seasonal [...] Encounter - Eleuterio Rose MD - 09/08/2023 5:06 PM EST Signed Prescriptions: Disp Refills Torsemide 20 MG Oral Tablet (Demadex) 315 Ta*3 Sig: Take 2 tablets in the morning and a third tablet at least 4 hours later; Take extra tablet as needed for weight gain. Authorizing Provider: ELEUTERIO ROSE Potassium Chloride Gaviota ER 10 MEQ Oral Tab*180 Ta*3 Sig: Take 1 Tablet by mouth in the morning and 1 Ta blet before bedtime. Authorizing Provider: ELEUTERIO ROSE * Telephone Encounter - Zhou ViolaROSCOE - 09/08/2023 9:24 AM EST Pt states he has not been able to get his medication. The refill did not go through, he has about 3days left. Did you pend patient's preferred pharmacy and medication before forwarding?yes Pharmacy: [facility] Pending Prescriptions: Disp Refills Torsemide 20 MG Oral Tablet (Demadex) 315 Ta*3 Sig: Take 2 tablets in the morning and a third tablet at least 4 hours later; Take extra tablet as needed for weight gain. Potassium Chloride Gaviota ER 10 MEQ Oral Ta*180 Ta*3 Sig: Take 1 Tablet by mouth in the morning and 1 Tablet before bedtime. Last Visit: 04/01/2023 (in office), Visit date not found (telemedicine) Next Visit: 10/06/2023 If no future appointments scheduled, and last appointment is greater than a year ago, please schedule patient for a follow-up appointment Last date the medication was ordered: Is this request for a controlled substance?No Urine Drug Screen: Results for orders placed or performed in visit on 11/06/21 PAIN MANAGEMENT DRUG PANEL, URINE W/ INTERPRETATION Result Value Compliance Interpretation Based on the medication information provided: The absence of buprenorphine and buprenorphine metabolite, norbuprenorphine, is INCONSISTENT with the expected use of buprenorphine. Amphetamines Screen, U Negative Benzodiazepines Screen, U Negative Cannabinoids Screen, U Negative Cocaine Metabolite Screen, U Negative Fentanyl Screen, U Negative Hydrocodone Screen, U Negative Methadone Metabolite Screen, U Negative Morphine/Codeine Screen, U Negative Oxycodone Screen, U Negative Valid Interpretation Normal Creatinine, U 25 Narrative Cutoff Concentrations: Drug Level Amphetamines 500 ng/mL Benzodiazepines 100 ng/mL Cannabinoids 50 ng/mL Cocaine Metabolite 150 ng/mL Fentanyl 1 ng/mL Hydrocodone / Hydromorphone 300 ng/mL Methadone Metabolite 100 ng/mL Morphine / Codeine 300 ng/mL Oxycodone / Oxymorphone 100 ng/mL Screening results are presumptive and can only be used for medical purposes. Confirmatory testing is available upon request. *Note: Due to a large number of results and/or encounters for the requested time period, some results have not been displayed. A complete set of results can be found in Results Review. Patient Phone Numbers Labs: Lab Results Component Value Date/Time CREAT 1.8 (H) 09/02/2023 01:20 PM CREAT 2.96 (A) 01/31/2023 12:00 AM CREAT 0.9 09/08/2017 08:00 AM POTASSIUM 4.5 09/02/2023 01:20 PM POTASSIUM 4.1 01/31/2023 12:00 AM POTASSIUM 3.9 09/08/2017 08:00 AM TSH 1.37 08/24/2023 02:21 PM TSH 2.89 10/05/2018 12:00 AM LDLCALC 152 (H) 01/05/2023 08:27 AM LDLCALC 110 (A) 12/21/2017 12:00 AM LDLDIRECT 89 07/10/2023 10:57 AM ALT 79 (H) 08/24/2023 02:21 PM ALT 226 (A) 01/09/2020 12:00 AM HGBA1C 8.2 (H) 06/11/2023 11:11 AM HGBA1C 7.1 (A) 06/25/2022 12:00 AM HGBA1C 11.6 (A) 03/08/2019 08:54 AM HGBA1C 9.7 12/01/2018 12:00 AM documented in this encounter Plan of Treatment Upcoming Encounters Date Type Department Care Team (Latest Contact Info) Description 09/11/2023 8:30 AM EST Home Visit [facility] [address] [place] [address] Love Stevens RN 132 [facility] [place] [address] 09/16/2023 11:00 AM EDT Telemedicine Pharmacy, [facility] [place] [address] [place] [address] Pharmacist1, [facility] [address] [place] [address] 09/29/2023 12:30 PM EDT Scheduled Telephone [facility], [place] [address] [facility] [place] [address] Mery Calderon, RDN [address] [facility] [place] [address] 10/06/2023 2:10 PM EDT Office Visit Family Medicine [address] [place] [phone] Bárbara Rios[address] [place] [address] 10/21/2023 2:40 PM EDT Office Visit Nephrology [address] [place] [address] Shivani Magallon MD [address] [place] [address] 10/27/2023 8:30 AM EDT Office Visit Sleep Disorders Ctr [facility] [address] [place] [phone] Lindsey Sheikh CRNP [address] [place] [address] 12/31/2023 11:45 AM EDT Hospital Encounter ENDO [facility], Endoscopy Room [facility] [address] [place] [phone] José Miguel Sifuentes MD [address] [place] [address] 12/31/2023 11:45 AM EDT - 12/31/2023 12:15 PM EDT Surgery ENDO [facility], Endoscopy Room [facility] [address] [place] [phone] José Miguel Sifuentes MD [address] [place] [address] COLONOSCOPY FLEXIBLE PROXIMAL DIAGNOSTIC 01/14/2024 12:30 PM EDT Cardiac Studies Cardiac Studies [address] [place] [address] 08/08/2024 9:30 AM EST Nurse Only Ancillary [address] [place] [address] [place], Nurse Annual [address] [place] [address] Scheduled Procedures Name Priority Associated Diagnoses Date/Ti [...] this encounter Medical Devices Implanted Type Area Copra Processor Device Identifier Shelf Expiration Date Model / Serial / Lot Lens Intraoc 21.0 - [id number] - [id number] Implanted:Qty: 1 on 01/22/2017 by Cheko Mcnamara MD at OR [facility] Right: Eye [employer] LOMB 08/05/2021 [id number] / [id number] / [id number] Lens Intraoc 21.5 - [id number] - [id number] Implanted:Qty: 1 on 02/03/2017 by Cheko Mcnamara MD at OR [facility] Left: Eye BAUSCH & LOMB 09/02/2021 [id number] / [id number] / [id number] documented as of this encounter Visit Diagnoses Diagnosis Hypertensive 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 (HCC) Hypertensive heart and kidney disease with [...] and were consensually agreed upon. Care Teams Patient Monitor Relationship Specialty Start Date End Date Bárbara Rios DO [address] [place] [address] [place] [address] PCP - General Internal Medicine 08/16/21 documented as of this encounter
--- OUTSIDE RECORDS SUMMARY | 2023-10-20 22:54 | External Medical Summary | Summary of Care ---
Author Name Unknown Organization [facility] Address [address] [facility] [place] [address] Phone [phone] Care Team Providers Care Shells Inspector Name Role Phone Bárbara Rios Primary Care Provider [phone] Reason for Visit * Reason Onset Date Comments Medication Refill 08/31/2023 Encounter Details Date Type Department Care Team (Late st Contact Info) Description 08/31/2023 Telephone [facility], [facility] [address] [facility] [place] [address] Elis Mulligan DO [address] [facility] [place] [address] Medication Refill Allergies Active Allergy Reactions Criticality Noted Date Comments Other Allergy (See Comments) Rash Low 10/13/2022 1+ cocamidopropyl betaine Sglt2 Inhibitors Other (Please comment) High 09/04/2020 Genital infection Sulfa Antibiotics Rash 10/15/2016 documented as of this encounter (statuses as of 09/07/2023) Medications Medication Sig Dispensed Refills Start Date [...] a week. 9 mL 3 3 Active Zfeji-1-zvpa Ethyl Esters 1 GM Oral Capsule (Lovaza) [...] as of this encounter (statuses as of 09/07/2023) Active Problems Problem Noted Date Diagnosed Date [...] in the Comments) Remote Patient Monitoring Vendor: [employer] Medical Device(s): Connected Scale Self - Management [...] Continues on lovaza 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 rep[employer] US [employer]a History of tobacco use 08/18/2017 CHAPINCITO on [...] as of this encounter (statuses as of 09/07/2023) Resolved Problems Problem Noted Date Diagnosed Date [...] as of this encounter (statuses as of 09/07/2023) Immunizations Name Administration Dates Next Due COVID-19 mRNA, LNP-s, No Pre serve, 2-Dose Series (Moderna) 12/10/2020,11/12/2020 Hepatitis B, 20+ yrs 01/04/2018,08/03/2017,07/03 Pneumococcal Conjugate Vacci ne, 20-valent ([id number]) 06/09/2022 Pneumococcal Polysaccharide PPV23 (Pneumovax) 03/06/2020 Seasonal [...] encounter Miscellaneous Notes * Telephone Encounter - Emani Nguyen OSA [...] to ordering provider Violette Moser RN, BSN [facility] Intake Triage Coordinator [phone] * Telephone Encounter - Peri Lopez CPhT - 08/31/2023 2:23 PM EST Pharmacy calling requesting the following medication below that is listed as "Historical". The following information was provided: Medication Name: torsemide 20mg Directions: 20mg in am and 20mg in pm Preferred Quantity: 90 day supply Previous Prescriber: elis mulligan Preferred Pharmacy: [facility] Please review and approve if appropriate. Thank you, Peri Lopez CPhT Stage Hand Centralized Clinical Pharmacy Services (CCPS) (Formerly Telepharmacy) 08/31/2023, 2:23 PM documented in this encounter Plan of Treatment Upcoming Encounters Date Type Department Care Team (Latest Contact Info) Description 09/11/2023 8:30 AM EST [facility] Visit [facility], [facility] [address] [place] [address] Love Stevens, RN [facility] [place] [address] 09/16/2023 11:00 AM EDT Telemedicine Pharmacy, [facility] [place] 200 [facility] [place] [address] Pharmacist1, [facility] 200 [facility] [place] [address] 09/29/2023 12:30 PM EDT Scheduled Telephone [facility], [facility] [address] [facility] [place] [address] Mery Calderon RDN [address] [facility] [place] [address] 10/06/2023 2:10 PM EDT Office Visit Family Medicine [address] [place] [phone] Bárbara Rios[address] [place] [address] 10/21/2023 2:40 PM EDT Office Visit Nephrology [address] [place] [address] Shivani Magallon MD 200 [facility] [place] [address] 10/27/2023 8:30 AM EDT [facility] [place] [address] [place] [phone] Lindsey Sheikh CRNP 132 [facility] [place] [address] 12/31/2023 11:45 AM EDT Hospital Encounter ENDO OSS, Endoscopy Room [facility] [address] [place] [phone] José Miguel Sifuentes MD [address] [place] [address] 12/31/2023 11:45 AM EDT - 12/31/2023 12:15 PM EDT Surgery ENDO [facility], Endoscopy Room [facility] [address] [place] [phone] José Miguel Sifuentes MD [address] [place] [address] COLONOSCOPY FLEXIBLE PROXIMAL DIAGNOSTIC 01/14/2024 12:30 PM EDT Cardiac Studies Cardiac Studies [address] [place] [address] 08/08/2024 9:30 AM EST Nurse Only Ancillary [address] [place] [address] [place], Nurse Annual [address] [place] [address] Scheduled Procedures Name Priority Associated Diagnoses Date/Ti [...] this encounter Medical Devices Implanted Type Area Customer Support Coordinator Device Identifier Shelf Expiration Date Model / Serial / Lot Lens Intraoc 21.0 - [id number] - [id number] Implanted:Qty: 1 on 01/22/2017 by Cheko Mcnamara MD at OR [facility] Right: Eye BAUSCH [employer] LOMB 08/05/2021 [id number] / [id number] / [id number] Lens Intraoc 21.5 - [id number] - [id number] Implanted:Qty: 1 on 02/03/2017 by Cheko Mcnamara MD at [facility] Left: Eye BAUSCH & LOMB 09/02/2021 [id number] / [id number] / [id number] documented as of this encounter Visit Diagnoses [...] and were consensually agreed upon. Care Teams Shells Inspector Relationship Specialty Start Date End Date Bárbara Rios DO [address] [place] [address] [place] [address] PCP - General Internal Medicine 08/16/21 documented as of this encounter
--- OUTSIDE RECORDS SUMMARY | 2023-10-20 22:54 | External Medical Summary | Summary of Care ---
Author Name Unknown Organization [facility] Address [address] [facility] [address] Phone [phone] Care Team Providers Care Chip Separator Name Role Phone Bárbara Rios Primary Care Provider [phone] Reason for Visit * Reason Comments [facility]: Acute Encounter Details Date Type Department Care Team (Late st Contact Info) Description 09/03/2023 1:00 PM EST [facility] Visit [facility], [facility] [address] [employer] [place] [address] Love Stevens, ANNE MARIE [address] [place] [address] Hypertensive heart and kidney disease with chronic [...] as of this encounter (statuses as of 09/03/2023) Medications Medication Sig Dispensed Refills Start Date [...] 32 UNITS WITH DINNER PLUS CORRECTION PER [facility] OR DIRECTED UP TO 120 [...] a week. 9 mL 3 3 Active Ievao-1-oswm Ethyl Esters 1 GM Oral Capsule (Lovaza) [...] Evolocumab 140 MG/ML Subcutaneous Solution Auto-injector (Repatha SureJeradick)Indicati ons:Dyslipidemia, goal LDL below 100,Mixed dyslipidemia Inject [...] before bedtime. 180 Tablet 3 4 Active Potassium Chloride [...] failure and stage 3b chronic kidney disease (HCC),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) 160 mg IV PUSH ONCE 09/03/2023 09/03/2023 Ended documented as of this encounter (statuses as of 09/03/2023) Active Problems Problem Noted Date Diagnosed Date [...] 08/18/2017 Last Assessment & Plan: Continues on BOLD Guidancea 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 repatha History of [...] as of this encounter (statuses as of 09/03/2023) Resolved Problems Problem Noted Date Diagnosed Date [...] has been better controlled recently. Monitor using JajahstColibria Cindy. NEMESIO (acute kidney injury) 04/30/2022 Severe [...] as of this encounter (statuses as of 09/03/2023) Immunizations Name Administration Dates Next Due COVID-19 mRNA, LNP-s, No Pre serve, 2-Dose Series (Moderna) 12/10/2020,11/12/2020 Hepatitis B, 20+ yrs 01/04/2018,08/03/2017,07/03 Pneumococcal Conjugate Vacci ne, 20-valent ([id number]) 06/09/2022 Pneumococcal Polysaccharide PPV23 (Pneumovax) 03/06/2020 Seasonal [...] Sign Reading Time Taken Comments Blood Pressure 158/72 09/03/2023 1:45 PM EST Pulse 64 09/03/2023 1:45 PM EST Temperature 36.2 C (97.2 F) 09/03/2023 1:45 PM ES T Respiratory Rate 18 09/03/2023 1:45 PM EST Oxygen Saturation 94% 09/03/2023 1:45 PM EST Inhaled Oxygen Concentration - - Weight - - Height - - Body Mass Index - - documented in this encounter Progress Notes * Josh Sullivan MD - 09/03/2023 2:06 PM EST I collaborated w/ Love during her visit Signs of hypervolemia. Wt 294 lb; baseline 289 lb. Diminished BS. More SOB. Did not diurese with 120 mg iv lasix Hypertensive 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 (HCC) - Furosemide (Lasix) inj 160 mg - Torsemide 20 MG Oral Tablet (Demadex); 40mg in the morning and 40mg in the afternoon. 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) - Furosemide (Lasix) inj 160 mg - Potassium Chloride Gaviota ER 10 MEQ Oral Tablet Extended Release; Take 1 Tablet by mouth in the morning and 1 Tablet before bedtime. Will increase daily torsemide from 40, 20 to 40, 40. Follow-up visit tomorrow Monitor for NEMESIO Latest Reference Range & Units 08/24/23 14:21 09/02/23 13:20 Sodium 135 - 146 mmol/L 139 137 Potassium 3.5 - 5.1 mmol/L 4.1 4.5 Chloride 98 - 107 mmol/L 103 101 CO2 22 - 32 mmol/L 23 23 BUN 6 - 20 mg/dL 45 (H) 34 (H) Creatinine 0.6 - 1.2 mg/dL 2.5 (H) 1.8 (H) Estimated Glomerular Filtration Rate >=60 mL/min 29 (L) 42 (L) Anion Gap 7 - 15 mmol/L 13 13 Glucose 70 - 120 mg/dL 130 (H) 308 (H) Calcium 8.4 - 10.2 mg/dL 8.7 9.0 Protein 6.0 - 8.3 g/dL 6.9 Folic Acid >4.5 ng/mL 7.0 TSH 0.27 - 4.20 uIU/mL 1.37 ANEMIA CBC Rpt ! WBC 4.00 - 10.80 K/uL 7.05 HGB 14.0 - 16.8 g/dL 12.0 (L) HCT 40.0 - 48.4 % 34.2 (L) MCV 82.0 - 99.5 fL 91.0 PLT 140 - 400 K/uL 157 Absolute Neutrophils 1.80 - 7.70 K/uL 4.30 Absolute Lymphocytes 1.00 - 4.80 K/ul 1.79 Absolute Monocytes 0.00 - 1.10 K/uL 0.58 Absolute Eosinophils 0.00 - 0.70 K/uL 0.26 Absolute Basophils 0.00 - 0.20 K/uL 0.10 IRON SCREEN, INCLUDING TIBC Rpt ! Iron 45 - 176 ug/dL 37 (L) Iron Binding Capacity 250 - 425 ug/dL 297 Transferrin Saturation Percent 15 - 55 % 12 (L) Ferritin 30 - 400 ng/mL 181 Vitamin B12 232 - 1,245 pg/mL 1,134 Immature Reticuloctye Fraction 2.5 - 20.6 % 13.3 Reticulocyte Hemoglobin 29.7 - 37.4 pg 33.9 Absolute Reticulocyte 31.3 - 100.1 K/uL 73.6 Reticulocyte Percent 0.80 - 1.90 % 1.83 Albumin 3.8 - 5.0 g/dL 3.8 AST 10 - 50 U/L 61 (H) ALT 10 - 50 U/L 79 (H) Alkaline Phosphatase 35 - 130 U/L 87 Bilirubin, Total <=1.2 mg/dL 0.6 (H): Data is abnormally high (L): Data is abnormally low !: Data is abnormal Rpt: View report in Results Review for more information * Love Stevens RN - 09/03/2023 1:43 PM EST Images from the original note were not included. [facility] [employer] Iron CutterManaging Supervisor Visit Date: 09/03/2023 Time: 1:44 PM Name: Tony Delong : 1960 Current Concerns: Patient seen for acute visit- weight trigger. Called in to report labored breathing. Abdominal distention, LE edema Spo2-94%. Upon arrival- sob above baseline, abdominal distention, No LE edema noted VS- BP elevated otherwise wnl Reports breathing has improved since this morning but still bothersome. Lungs clear but diminished- more diminished in left See weights below Voiding without difficulty Bowels wnl- per report Appetite good Taking fluids- Fluid restriction TT to [facility] - see treatment plan. Problems/Symptoms: Review of Systems Constitutional: Negative. HENT: Negative. Eyes: Negative. Respiratory: Positive for shortness of breath. Gastrointestinal: Positive for abdominal distention. Endocrine: Negative. Genitourinary: Negative. Musculoskeletal: Negative. Skin: Negative. Neurological: Negative. Hematological: Negative. Psychiatric/Behavioral: Negative. Physical Exam: BP 158/72 (BP Site: Left Arm, BP Position: Sitting, BP Cuff Size: Regular) | Pulse 64 | Temp 36.2 C (97.2 F) (Tympanic) | Resp 18 | SpO2 94% Pain 0 Physical Exam Constitutional: Appearance: Normal appearance. Cardiovascular: Rate and Rhythm: Normal rate and regular rhythm. Pulses: Normal pulses. Pulmonary: Effort: Pulmonary effort is normal. Abdominal: General: Bowel sounds are normal. There is distension. Musculoskeletal: General: Normal range of motion. Skin: General: Skin is warm and dry. Capillary Refill: Capillary refill takes 2 to 3 seconds. Neurological: General: No focal deficit present. Mental Status: He is alert and oriented to person, place, and time. Psychiatric: Mood and Affect: Mood normal. Behavior: Behavior normal. [facility]-10 Completed this Visit: No. Routine visit Treatment/Plan: IV lasix 160mg now via left FA Increase Torsemide to 40mg BID daily Potassium 10meq BID Continue medications as prescribed Keep all upcoming MD appointments Low na diet [facility] scale- weigh daily Elevate ble prn edema RN CM follow up in 1 day Home Interventions Provided: IV Interventions: Diuretic Consulted PCP/Specialist Reinforced current Plan of Care, including self-management and medication regimen Patient Needs to Remember: Call [facility] with any red flags/ medical concerns Referrals Needed: N/a Follow Up: Is there cellular connectivity/connectivity in the home? Yes Does the patient have internet in the home? Yes Patient encouraged to call the intake phone number for all urgent but not emergent issues. Scheduled to follow up with patient in 1 day. Love Du RN 09/03/2023 1:44 PM documented in this encounter Plan of Treatment Upcoming Encounters Date Type Department Care Team (Latest Contact Info) Description 09/04/2023 10:15 AM EST Scheduled Telephone [facility], [address] [place] [id number] Coordinator, [address] [place] [address] 09/04/2023 2:30 PM EST Home Visit [facility], [facility] [address] [place] [address] Love Stevens, RN [address] [place] [address] 09/05/2023 9:30 AM EST Scheduled Telephone [facility], [facility] [address] [place] [address] [facility], Nurse [facility] [address] [place] [address] 09/11/2023 8:30 AM EST Home Visit [facility], [facility] [address] [place] [address] Love Stevens, RN [address] [place] [address] 09/16/2023 11:00 AM EDT Telemedicine Pharmacy, [facility] [address] [facility] [place] [address] Pharmacist1, [facility] [address] [facility] [place] [address] 09/29/2023 12:30 PM EDT Scheduled Telephone [facility], [facility] [address] [facility] [address] Mery Calderon RDN [address] [facility] [place] [address] 10/06/2023 2:10 PM EDT Office Visit Family Medicine [address] [place] [phone] Bárbara Rios [address] [place] [address] 10/21/2023 2:40 PM EDT Office Visit Nephrology [address] [place] [address] Shivani Magallon MD [address] [place] [address] 10/27/2023 8:30 AM EDT Office Visit [facility] [facility] [address] [place] [phone] Lindsey Sheikh CRNP [address] [place] [address] 12/31/2023 11:45 AM EDT Hospital Encounter ENDO [facility], Endoscopy Room [facility] [address] [place] [phone] José Miguel Sifuentes MD [address] [place] [address] 12/31/2023 11:45 AM EDT - 12/31/2023 12:15 PM EDT Surgery ENDO [facility], Endoscopy Room [facility] [address] [place] [phone] José Miguel Sifuentes MD [address] [place] [address] COLONOSCOPY FLEXIBLE PROXIMAL DIAGNOSTIC 01/14/2024 12:30 PM EDT Cardiac Studies Cardiac Studies [address] [place] [address] 08/08/2024 9:30 AM EST Nurse Only Ancillary [address] [place] [address] [place], Nurse [address] [place] [address] Scheduled Procedures Name Priority Associated Diagnoses Date/Ti [...] ASSESSMENT COMPLETED IN PAST YEAR FOR COPD 09/02/2024 09/03/2023 Arreola's Esophagus Surveilance 06/16/2025 06/16/2022, 06/16/2022, 03/20/2022, [...] this encounter Medical Devices Implanted Type Area Business And Services Instructor Device Identifier Shelf Expiration Date Model / Serial / Lot Lens Intraoc 21.0 - [id number] - [id number] Implanted:Qty: 1 on 01/22/2017 by Cheko Mcnamara MD at OR [facility] Right: Eye [employer] 08/05/2021 [id number] / [id number] / [id number] Lens Intraoc 21.5 - [id number] - [id number] Implanted:Qty: 1 on 02/03/2017 by Cheko Mcnamara MD at OR [facility] Left: Eye [employer] 09/02/2021 [id number] / [id number] / [id number] documented as of this encounter Visit Diagnoses [...] mg 160 mg, IV Push, ONCE, On Aida 09/03/23 at 1445, For 1 dose Given 09/03/2023 6:16 PM EST 160 mg Forea rm Left documented in this encounter Advance Directives Latest [...] and were consensually agreed upon. Care Teams Chip Separator Relationship Specialty Start Date End Date Bárbara Rios DO [address] [place] [address] [place] [address] PCP - General Internal Medicine 08/16/21 documented as of this encounter
--- OUTSIDE RECORDS SUMMARY | 2023-10-20 22:54 | External Medical Summary | Summary of Care ---
Author Name Unknown Organization [facility] Address [address] [facility] [place] [address] Phone [phone] Care Team Providers Care Pull Over Name Role Phone Bárbara Rios Primary Care Provider [phone] Reason for Visit * Reason Comments [facility]: Maintenance Encounter Details Date Type Department Care Team (Late st Contact Info) Description 09/11/2023 8:30 AM EST Home Visit [facility], [facility] [address] [employer] [place] [address] Love Stevens, RN [address] [place] [address] Allergies Active Allergy Reactions Criticality Noted Date Comments Other Allergy (See Comments) Rash Low 10/13/2022 1+ cocamidopropyl betaine Sglt2 Inhibitors Other (Please comment) High 09/04/2020 Genital infection Sulfa Antibiotics Rash 10/15/2016 documented as of this encounter (statuses as of 09/11/2023) Medications Medication Sig Dispensed Refills Start Date [...] a week. 9 mL 3 04/09/2023 Active Eyvpo-9-jcmx Ethyl Esters 1 GM Oral Capsule (Lovaza) [...] TIMES A DAY. 90 g 1 08/27/2023 02/21/202 5 Active Torsemide 20 MG Oral Tablet [...] as of this encounter (statuses as of 09/11/2023) Active Problems Problem Noted Date Diagnosed Date [...] in the Comments) Remote Patient Monitoring Vendor: Sept[employer] Device(s): Connected Scale Self - Management Plan [...] as of this encounter (statuses as of 09/11/2023) Resolved Problems Problem Noted Date Diagnosed Date [...] as of this encounter (statuses as of 09/11/2023) Immunizations Name Administration Dates Next Due COVID-19 mRNA, LNP-s, No Pre serve, 2-Dose Series (Moderna) 12/10/2020,11/12/2020 Hepatitis B, 20+ yrs 01/04/2018,08/03/2017,07/03 Pneumococcal Conjugate Vacci ne, 20-valent ([id number]) 06/09/2022 Pneumococcal Polysaccharide PPV23 (Pneumovax) 03/06/2020 Seasonal [...] Sign Reading Time Taken Comments Blood Pressure 132/66 09/11/2023 11:03 AM EST Pulse 64 09/11/2023 11:03 AM EST Temperature 36.4 C (97.6 F) 09/11/2023 11:[address] Respiratory Rate 18 09/11/2023 11:03 AM EST Oxygen Saturation 98% 09/11/2023 11:03 AM EST Inhaled Oxygen Concentration - - Weight - - Height - - Body Mass Index - - documented in this encounter Progress Notes * Love Stevens RN - 09/11/2023 10:47 AM EST Images from the original note were not included. [facility] Admissions Gate Attendant Visit Date: 09/11/2023 Time: 10:47 AM Name: Tony Delong : 1960 Current Concerns: Patient seen for close follow up- CKD4, CHF, COPD, [place], DM2 Reports feeling well. 7 day average blood sugar 139 Weights stable- Sob at baseline VS wnl Lungs clear but diminished No LE edema noted Voiding without difficulty Bowels wnl Appetite good Taking fluids well. Problems/Symptoms: Review of Systems Constitutional: Negative. HENT: Negative. Eyes: Negative. Respiratory: Positive for shortness of breath. Cardiovascular: Negative. Gastrointestinal: Negative. Genitourinary: Negative. Musculoskeletal: Negative. Skin: Negative. Neurological: Negative. Hematological: Negative. Psychiatric/Behavioral: Negative. Physical Exam: BP 132/66 (BP Site: Left Arm, BP Position: Sitting, BP Cuff Size: Regular) | Pulse 64 | Temp 36.4 C (97.6 F) (Tympanic) | Resp 18 | SpO2 98% Pain 0 Physical Exam Constitutional: Appearance: Normal [...] and Affect: Mood normal. Behavior: Behavior normal. [facility]-10 Completed this Visit: No. Routine visit Treatment/Plan: Blood sugars QID Low na diet [facility] scale- weigh daily Continue medications as prescribed Keep all upcoming MD appointments Fall precautions Fluids encouraged- 1.5L restriction RN CM follow up in 4 weeks. Home Interventions Provided: Reinforced current Plan of Care, including self-management and medication regimen Patient Needs to Remember: Call [facility] with any medical concerns/ red flags Referrals Needed: N/a Follow Up: Is there cellular connectivity/connectivity in the home? Yes Does the patient have internet in the home? Yes Patient encouraged to call the intake phone number for all urgent but not emergent issues. Scheduled to follow up with patient in 4 weeks. Love Du RN 09/11/2023 10:47 AM documented in this encounter Plan of Treatment Upcoming Encounters Date Type Department Care Team (Latest Contact Info) Description 09/16/2023 11:00 AM EDT Telemedicine Pharmacy, [facility] [place] [address] [facility] [place] [address] Pharmacist1, [facility] 200 [facility] [place] [address] 09/29/2023 12:30 PM EDT Scheduled Telephone [facility], [facility] [address] [facility] [place] [address] Mery Calderon, VIVIANAN [address] [place] [address] 10/06/2023 2:10 PM EDT Office Visit Family Medicine [address] [place] [phone] Bárbara Rios[address] [place] [address] 10/09/2023 2:30 PM EDT [facility] Visit [facility], [facility] [address] [place] [address] Love Stevens RN 132 [facility] [place] [address] 10/21/2023 2:40 PM EDT Office Visit Nephrology [address] [place] [address] Shivani Magallon MD 200 [facility] [place] [address] 10/27/2023 8:30 AM EDT Office Visit Sleep Disorders Ctr [facility] [address] [place] [phone] Lindsey Sheikh CRNP [address] [place] [address] 12/31/2023 11:45 AM EDT Hospital Encounter ENDO [facility], Endoscopy Room [facility] [address] [place] [phone] José Miguel Sifuentes MD [address] [place] [address] 12/31/2023 11:45 AM EDT - 12/31/2023 12:15 PM EDT Surgery ENDO [facility], Endoscopy Room [facility] [address] [place] [phone] José Miguel Sifuentes MD [address] [place] [address] COLONOSCOPY FLEXIBLE PROXIMAL DIAGNOSTIC 01/14/2024 12:30 PM EDT Cardiac Studies Cardiac Studies [address] [place] [address] 08/08/2024 9:30 AM EST Nurse Only Ancillary [address] [place] [address] [place], Nurse Annual [address] [place] [address] Scheduled Procedures Name Priority Associated Diagnoses Date/Ti [...] this encounter Medical Devices Implanted Type Area Air Pollution Compliance Inspector Device Identifier Shelf Expiration Date Model / Serial / Lot Lens Intraoc 21.0 - [id number] - [id number] Implanted:Qty: 1 on 01/22/2017 by Cheko Mcnamara MD at OR [facility] Right: Eye [employer] 08/05/2021 [id number] / [id number] / [id number] Lens Intraoc 21.5 - [id number] - [id number] Implanted:Qty: 1 on 02/03/2017 by Cheko Mcnamara MD at OR [facility] Left: Eye [employer] 09/02/2021 [id number] / [id number] / [id number] documented as of this encounter Advance Directives [...] and were consensually agreed upon. Care Teams Pull Over Relationship Specialty Start Date End Date Bárbara Rios DO [address] [place] [address] [place] [address] PCP - General Internal Medicine 08/16/21 documented as of this encounter
--- OUTSIDE RECORDS SUMMARY | 2023-10-20 22:54 | External Medical Summary | Summary of Care ---
Author Name Unknown Organization [facility] Address [address] [facility] [place] [address] Phone [phone] Care Team Providers Care Importer Exporter Name Role Phone Bárbara Rios Primary Care Provider [phone] Reason for Visit * Reason Onset Date Comments Medical Nutrition Therapy 09/03/2023 Encounter Details Date Type Department Care Team (Latest Contact Info) Description 09/03/2023 3:00 PM EST Scheduled Telephone [facility], [facility] [address] [facility] [place] [address] Mery Calderon, RDN [address] [facility] [place] [address] Uncontrolled type 2 diabetes mellitus with hyperglycemia (HCC)* Allergies Active Allergy Reactions Criticality Noted Date Comments Other Allergy (See Comments) Rash Low 10/13/2022 1+ cocamidopropyl betaine Sglt2 Inhibitors Other (Please comment) High 09/04/2020 Genital infection Sulfa Antibiotics Rash 10/15/2016 documented as of this encounter (statuses as of 09/04/2023) Medications Medication Sig Dispensed Refills Start Date [...] 32 UNITS WITH DINNER PLUS CORRECTION PER [facility] OR DIRECTED UP TO 120 [...] a week. 9 mL 3 3 Active Ymhic-5-vojz Ethyl Esters 1 GM Oral Capsule (Lovaza) [...] as of this encounter (statuses as of 09/04/2023) Active Problems Problem Noted Date Diagnosed Date [...] in the Comments) Remote Patient Monitoring Vendor: [employer] Device(s): Connected Scale Self - Management Plan [...] as of this encounter (statuses as of 09/04/2023) Resolved Problems Problem Noted Date Diagnosed Date [...] as of this encounter (statuses as of 09/04/2023) Immunizations Name Administration Dates Next Due COVID-19 mRNA, LNP-s, No Pre serve, 2-Dose Series (Moderna) 12/10/2020,11/12/2020 Hepatitis B, 20+ yrs 01/04/2018,08/03/2017,07/03 Pneumococcal Conjugate Vacci ne, 20-valent ([id number]) 06/09/2022 Pneumococcal Polysaccharide PPV23 (Pneumovax) 03/06/2020 Seasonal [...] Sign Reading Time Taken Comments Blood Pressure - - Pulse - - Temperature - - Respiratory Rate - - Oxygen Saturation - - Inhaled Oxygen Concentration - - Weight 135.6 kg (298 lb 15.1 oz) 2023 10:26 AM EST Height 182.9 cm (6') 09/03/2023 10:26 AM EST Body Mass Index 40.54 09/03/2023 10:26 AM EST documented in this encounter Miscellaneous Notes * Telephone Encounter - Mery Calderon, SUDHIR - 09/03/2023 10:12 AM EST NUTRITION FOLLOW-UP NOTE - OUTPATIENT Kenny Name: Tony Delong [facility] Date: 09/03/2023 Time: 10:12 AM Patient was identified by name and date. After connecting to the patient via telephone, the patient was identified by name and date of . Patient was then informed that this was a telephone call only visit. The patient agreed to participate. Visit Disposition: Routine follow-up Total call duration was 11 minutes. Reason for Nutrition Follow-up: Heart Failure, Overweight/Obesity, Type 2 Diabetes, CKD NUTRITION ASSESSMENT: Client History 63 year old male; EMR fully reviewed, PMH includes, but not limited to, Patient Active Problem List Diagnosis Code Type 2 diabetes mellitus with hemoglobin A1c goal of less than 7.0% (HCC) E11.9 DDD (degenerative disc disease), cervical M50.30 H/O colonoscopy with polypectomy Z98.890, Z86.010 Mixed dyslipidemia E78.2 History of tobacco use Z87.891 [place] on CPAP G47.33, Z99.89 Uncontrolled type 2 diabetes mellitus with hyperglycemia (HCC) E11.65 Hepatic steatosis K76.0 Morbid obesity due to excess calories (HCC) E66.01 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) E11.3413 Arreola's esophagus with high grade dysplasia K22.711 Type 2 diabetes mellitus with peripheral vascular disease (HCC) E11.51 Type 2 diabetes mellitus with diabetic polyneuropathy, with long-term current use of insulin (HCC) E11.42, Z79.4 Chronic kidney disease, stage 3b (HCC) N18.32 Hypertensive 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 (HCC) I13.0, I50.32, N18.32 Type 2 diabetes mellitus with stage 3b chronic kidney disease, with long-term current use of insulin (HCC) E11.22, N18.32, Z79.4 Sacroiliitis (HCC) M46.1 Support System: Significant other, Self Barriers To Learning: None Special Education Needs: None Food/Nutrition-Related History Describes typical meal pattern/po intake as indicated [...] a week Alcohol: None Tobacco Use: No Diet Recall/Food Logs Indicate: AREAS FOR IMPROVEMENT: Large portions Inadequate fruit and vegetable intake POSITIVE: Uses calorie free beverages Adequate fluid intake Food and Nutrient Intake and other pertinent information: Lives with significant other SO continues to assist with care/food shopping/prepping/cooking of meals BS continue to be tested 3-4x daily BS ranging 160's-180's recently Reinforced the need for proper nutrition to better control BS Closely followed by [facility] (next appt 09/16/23) Since last call, Patient reports appetite and PO intake remain "very good" with no difficulties Patient reports increased SOB today (diuretic adjusted and increased per Patient/provided encouragement) Discussed the need to stay active with bedside/chair exercises at least 2-3x/week--(provided encouragement/info sent previously) Patient admits to not always restricting low sodium/low sugar diet foods/drinks (BLE edema noted) Discussed the need to restrict these foods/nutritious examples suggested/reviewed foods to avoid/consume No food insecurity reported this call Medications Changes/Updates: None reported Nutrition-Focused Physical Findings Full nutrition focused physical exam not conducted (telephone nutrition assessment) No open areas reported this call Anthropometric Measurements Current Weight: Wt Readings from Last 1 Encounters: 09/03/23 135.6 kg (298 lb 15.1 oz) Wt Readings from Last 8 Encounters: 09/03/23 135.6 kg (298 lb 15.1 oz) 08/12/23 135.6 kg (299 lb) 08/05/23 (!) 138 kg (304 lb 3.2 oz) 06/19/23 (!) 138.3 kg (305 lb) 05/25/23 (!) 138.1 kg (304 lb 7.3 oz) 04/01/23 (!) 138.1 kg (304 lb 6.4 oz) 03/23/23 (!) 138.8 kg (306 lb) 03/13/23 (!) 138.8 kg (306 lb) Weight Change: decreased by 8 pounds in the past 5 months BMI Readings from Last 1 Encounters: 09/03/23 40.54 kg/m Biochemical Data, Medical Tests, and Procedures Latest Reference Range & Units 07/29/23 14:09 08/24/23 14:21 09/02/23 13:20 Sodium 135 - 146 mmol/L 141 139 137 Potassium 3.5 - 5.1 mmol/L 4.6 4.1 4.5 Chloride 98 - 107 mmol/L 106 103 101 CO2 22 - 32 mmol/L 24 23 23 BUN 6 - 20 mg/dL 40 (H) 45 (H) 34 (H) Creatinine 0.6 - 1.2 mg/dL 2.2 (H) 2.5 (H) 1.8 (H) Estimated Glomerular Filtration Rate >=60 mL/min 32 (L) 29 (L) 42 (L) Anion Gap 7 - 15 mmol/L 11 13 13 Glucose 70 - 120 mg/dL 208 (H) 130 (H) 308 (H) Calcium 8.4 - 10.2 mg/dL 9.3 8.7 9.0 Protein 6.0 - 8.3 g/dL 6.9 Folic Acid >4.5 ng/mL 7.0 (H): Data is abnormally high (L): Data is abnormally low Latest Reference Range & Units 06/11/23 11:11 08/24/23 14:21 HGB 14.0 - 16.8 g/dL 12.9 (L) 12.0 (L) HCT 40.0 - 48.4 % 34.2 (L) (L): Data is abnormally low Latest Reference Range & Units 06/11/23 11:11 08/24/23 14:21 Albumin 3.8 - 5.0 g/dL 4.1 3.8 Latest Reference Range & Units 12/17/22 14:38 04/01/23 15:31 06/11/23 11:11 Hemoglobin A1C 4.0 - 5.6 % 9.4 (H) 7.2 (H) 8.2 (H) (H): Data is abnormally high Discussed the negative effects elevated A1C has on the body Previous Nutrition Diagnosis: Food and nutrition-related knowledge deficit related to Lack of exposure to nutritional management of Diabetes/Heart Health/CKD/Obesity as evidenced by Reported diet and/or activity recall Progress towards goals: 1) Consume 3 meals/day plus HS snack of nutritious, low sodium/low sugar foods with consistent carbohydrates (discussed nutritious foods to consume and those foods to avoid/sent info previously)--in progress 2) Consume more fruits/vegetables at HS snack vs cookies (reviewed My Plate Method/seasonal fruits and vegs suggested/info sent previously)--in progress 3) Encouraged to do bedside/chair exercises/2-3x per week/walks (info previously sent)--in progress-provided encouragement CURRENT NUTRITION DIAGNOSIS Food and nutrition-related knowledge deficit related to Lack of exposure to nutritional management of Diabetes/Heart Health/CKD/Obesity as evidenced by Reported diet and/or activity recall NUTRITION INTERVENTION: FOOD AND/OR NUTRIENT DELIVERY Meals Snacks NUTRITION EDUCATION Initial/brief nutrition education NUTRITION COUNSELING Strategies Nutrition Prescription: Diet: 2000 mg Sodium Consistent Carbohydrate Good Nutrition Weight Management Nutrition Guide for CKD Iron Rich Foods (due to low H/H lab work) Pita Singh: Pita Morejon (Male): 2620.78 (09/03/23 1026) Daily Calorie Needs: 2621 Kcals - 500 Kcals = 2121 Kcals/day (promote weight loss/elevated BMI) Daily Protein Needs: 76 Grams protein (.8g/kg/used AIBW of 208 lbs) Current Goals: 1) Consume 3 meals/day plus HS snack of nutritious, iron rich, low sodium/low sugar foods with consistent carbohydrates (reinforced foods to consume/avoid) 2) Consume more fruits/vegetables at HS snack vs cookies (reinforced My Plate Method/suggested seasonal choices) 3) Encouraged to do bedside/chair exercises/2-3x per week walks (info previously sent) Dietitian Action: Instructed pt on above diet using: Cardiac Education: 2000 mg Na Diet and List of High Sodium Foods Renal Education: Nutrition Guide for Chronic Kidney Disease Good Nutrition Education: Enjoying More Fruits & Vegetables , Exercises in a Chair, Guide to Health Eating, Healthy Eating Away From Home , Iron Rich Foods, Snack Ideas, Increased Physical Activity, Lifestyle Changes for Weight Management , Light and Healthy Recipes , MyPlate , Planning Healthy, Easy Meals , and Start Your Day with Healthy Breakfast Diabetes Education: High Sugar Foods to Limit and Tips for Eating Well to Manage Blood Sugar Recommendations to Ordering Provider: Continue current plan of nutrition care. NUTRITION MONITORING AND EVALUATION: The following will be monitored and evaluated at the next visit: Monitor weight. Monitor labs. Review food logs. Monitor goals and progress. Plan: Patient scheduled to return in 4-6 weeks; dietitian phone # given for future reference. 15 minutes Medical Nutrition Therapy Time In: 0300 (09/04/23 1136) Time Out: 031 (09/04/23 1136) 15 min (8-22 min) 30 min (23-37 min) 45 min (38-52 min) 60 min (53-67 min) 75 min (68-82 min) 90 min (83-97 min) 105 min (98-113 min) Mery Calderon RDN [facility], [facility] documented in this encounter Plan of Treatment Upcoming Encounters Date Type Department Care Team (Latest Contact Info) Description 09/04/2023 2:30 PM EST Home Visit [facility], [facility] [address] [facility] [place] [address] Love Stevens, RN 132 [facility] [place] [address] 09/05/2023 9:30 AM EST Scheduled Telephone [facility], [facility] [address] [facility] [place] [address] [facility], Nurse [facility] [place] [address] 09/11/2023 8:30 AM EST Home Visit [facility], [facility] [address] [place] [address] Love Stevens, RN 132 [facility] [place] [address] 09/16/2023 11:00 AM EDT Telemedicine Pharmacy, [facility] [address] [facility] [place] [address] Pharmacist1, [facility] 200 [facility] [place] [address] 09/29/2023 12:30 PM EDT Scheduled Telephone [facility], [facility] [address] [facility] [place] [address] Mery Calderon RDN [address] [facility] [place] [address] 10/06/2023 2:10 PM EDT Office Visit Family Medicine [address] [place] [phone] Bárbara Rios[address] [place] [address] 10/21/2023 2:40 PM EDT Office Visit Nephrology [address] [place] [address] Shivani Magallon MD [address] [place] [address] 10/27/2023 8:30 AM EDT Office Visit Sleep Disorders Ctr [facility] [address] [place] [phone] Lindsey Sheikh CRNP [address] [place] [address] 12/31/2023 11:45 AM EDT Hospital Encounter ENDO OSSC, Endoscopy Room [facility] [address] [place] [phone] José Miguel Sifuentes MD [address] [place] [address] 12/31/2023 11:45 AM EDT - 12/31/2023 12:15 PM EDT Surgery ENDO OSSC, Endoscopy Room [facility] [address] [place] [phone] José Miguel Sifuentes MD [address] [place] [address] COLONOSCOPY FLEXIBLE PROXIMAL DIAGNOSTIC 01/14/2024 12:30 PM EDT Cardiac Studies Cardiac Studies [address] [place] [address] 08/08/2024 9:30 AM EST Nurse Only Ancillary [address] [place] [address] [place], Nurse [address] [place] [address] Scheduled Procedures Name Priority Associated Diagnoses Date/Ti [...] this encounter Medical Devices Implanted Type Area Arcade Attendant Device Identifier Shelf Expiration Date Model / Serial / Lot Lens Intraoc 21.0 - [id number] - [id number] Implanted:Qty: 1 on 01/22/2017 by Cheko Mcnamara MD at OR [facility] Right: Eye [employer]OM[employer] 08/05/2021 [id number] / [id number] / [id number] Lens Intraoc 21.5 - [id number] - [id number] Implanted:Qty: 1 on 02/03/2017 by Cheko Mcnamara MD at OR [facility] Left: Eye [employer]CH [employer] LOMB 09/02/2021 [id number] / [id number] / [id number] documented as of this encounter Visit Diagnoses Diagnosis Uncontrolled type 2 diabetes mellitus with hyperglycemia (HCC)- Primary Special screening for malignant neoplasms, [...] and were consensually agreed upon. Care Teams Importer Exporter Relationship Specialty Start Date End Date Bárbara Rios DO [address] [place] [address] [place] [address] PCP - General Internal Medicine 08/16/21 documented as of this encounter
--- OUTSIDE RECORDS SUMMARY | 2023-10-20 22:54 | External Medical Summary | Summary of Care ---
Author Name Unknown Organization [facility] Address [address] [facility] [place] [address] Phone [phone] Care Team Providers Care Hard Metals Hand Engraver Name Role Phone Bárbara Rios Primary Care Provider [phone] Reason for Visit * Reason Onset Date Comments [facility]: Maintenance 09/06/2023 Encounter Details Date Type Department Care Team (Late st Contact Info) Description 09/06/2023 8:30 AM EST Scheduled Telephone [facility], [facility] 132 [facility] [place] [address] [facility], Nurse [facility] 132 [facility] [place] [address] Allergies Active Allergy Reactions Criticality Noted Date Comments Other Allergy (See Comments) Rash Low 10/13/2022 1+ cocamidopropyl betaine Sglt2 Inhibitors Other (Please comment) High 09/04/2020 Genital infection Sulfa Antibiotics Rash 10/15/2016 documented as of this encounter (statuses as of 09/06/2023) Medications Medication Sig Dispensed Refills Start Date [...] 32 UNITS WITH DINNER PLUS CORRECTION PER [facility] OR DIRECTED UP TO 120 UNITS [...] a week. 9 mL 3 04/09/2023 Active Vjqts-9-hasm Ethyl Esters 1 GM Oral Capsule (Lovaza) [...] as of this encounter (statuses as of 09/06/2023) Active Problems Problem Noted Date Diagnosed Date [...] in the Comments) Remote Patient Monitoring Vendor: [employer] Device(s): Connected Scale Self - Management Plan [...] as of this encounter (statuses as of 09/06/2023) Resolved Problems Problem Noted Date Diagnosed Date [...] as of this encounter (statuses as of 09/06/2023) Immunizations Name Administration Dates Next Due COVID-19 mRNA, LNP-s, No Pre serve, 2-Dose Series (Moderna) 12/10/2020,11/12/2020 Hepatitis B, 20+ yrs 01/04/2018,08/03/2017,07/03 Pneumococcal Conjugate Vacci ne, 20-valent ([id number]) 06/09/2022 Pneumococcal Polysaccharide PPV23 (Pneumovax) 03/06/2020 Seasonal [...] Telephone Encounter - Harmony Singh RN - 09/06/2023 9:38 AM EST Images from the original note were not included. Telephone call to pt. No answer. Left message on VM. documented in this encounter Plan of Treatment Upcoming Encounters Date Type Department Care Team (Latest Contact Info) Description 09/11/2023 8:30 AM EST Home Visit [facility], [facility] [address] [facility] [place] [address] Love Stevens, RN 132 [facility] [place] [address] 09/16/2023 11:00 AM EDT Telemedicine Pharmacy, [facility] [address] [place] [address] Pharmacist1, [facility] [address] [place] [address] 09/29/2023 12:30 PM EDT Scheduled Telephone [facility], [facility] [address] [place] [address] [place] [address] Mery Calderon RDN [address] [facility] [place] [address] 10/06/2023 2:10 PM EDT Office Visit Family Medicine [address] [place] [phone] Bárbara Rios[address] [place] [address] 10/21/2023 2:40 PM EDT Office Visit Nephrology [address] [place] [address] Shivani Magallon MD [address] [place] [address] 10/27/2023 8:30 AM EDT Office Visit Sleep Disorders Ctr [facility] [address] [place] [phone] Lindsey Sheikh CRNP [address] [place] [address] 12/31/2023 11:45 AM EDT Hospital Encounter ENDO O[facility], Endoscopy Room [facility] [address] [place] [phone] José Miguel Sifuentes MD [address] [place] [address] 12/31/2023 11:45 AM EDT - 12/31/2023 12:15 PM EDT Surgery ENDO O[facility], Endoscopy Room [facility] [address] [place] [phone] José Miguel Sifuentes MD [address] [place] [address] COLONOSCOPY FLEXIBLE PROXIMAL DIAGNOSTIC 01/14/2024 12:30 PM EDT Cardiac Studies Cardiac Studies [address] [place] [address] 08/08/2024 9:30 AM EST Nurse Only Ancillary [address] [place] [address] [place], Nurse [facility] [address] [place] [address] [place] [address] Scheduled Procedures Name Priority Associated Diagnoses Date/Ti [...] this encounter Medical Devices Implanted Type Area Oven Tender Bagels Device Identifier Shelf Expiration Date Model / Serial / Lot Lens Intraoc 21.0 - [id number] - [id number] Implanted:Qty: 1 on 01/22/2017 by Cheko Mcnamara MD at OR [facility] Right: Eye [employer]OM[employer] 08/05/2021 [id number] / [id number] / [id number] Lens Intraoc 21.5 - [id number] - [id number] Implanted:Qty: 1 on 02/03/2017 by Cheko Mcnamara MD at OR [facility] Left: Eye [employer]CH [employer] LOMB 09/02/2021 [id number] / [id number] / [id number] documented as of this encounter Advance Directives [...] and were consensually agreed upon. Care Teams Hard Metals Hand Engraver Relationship Specialty Start Date End Date Bárbara Rios DO [address] [place] [address] [place] [phone] PCP - General Internal Medicine 08/16/21 documented as of this encounter
--- OUTSIDE RECORDS SUMMARY | 2023-10-20 22:54 | External Medical Summary | Summary of Care ---
Author Name Unknown Organization [facility] Address [address] [facility] [place] [address] Phone [phone] Care Team Providers Care Orthopedic Physician Name Role Phone Bárbara Rios Primary Care Provider [phone] Reason for Visit * Reason Onset Date Comments [facility]: Maintenance 09/04/2023 Encounter Details Date Type Department Care Team (Late st Contact Info) Description 09/04/2023 10:15 AM EST Scheduled Telephone [facility], [facility] [address] [place] [address] Coordinator, [facility] [address] [place] [address] Allergies Active Allergy Reactions Criticality Noted Date [...] 32 UNITS WITH DINNER PLUS CORRECTION PER [facility] OR DIRECTED UP [...] a week. 9 mL 3 04/09/2023 Active Rxwnp-0-sfnh Ethyl Esters 1 GM Oral Capsule (Lovaza) [...] in the Comments) Remote Patient Monitoring Vendor: [employer] Device(s): Connected Scale Self - Management Plan [...] yrs 01/04/2018,08/03/2017,07/03 Pneumococcal Conjugate Vacci ne, 20-valent ([id number]) 06/09/2022 Pneumococcal Polysaccharide PPV23 (Pneumovax) 03/06/2020 Seasonal [...] encounter Miscellaneous Notes * Telephone Encounter - Cassandra Rivero RN - 09/04/2023 9:47 AM EST Images from the original note were not included. [facility] Telephonic Nurse Follow-Up Call [facility] Subprogram: Focused Care Management (3-9 months) Follow Up Call Type: 24 hour follow up Acute issue requiring follow-up call: Remote Patient Monitoring Trigger Objective: 09/03/2023 1:45 PM 09/03/2023 10:26 AM 08/26/2023 11:50 AM 08/25/2023 9:08 AM 08/24/2023 2:17 PM VITALS ACROSS ENCOUNTERS BP 158/72 130/70 132/64 124/68 Pulse 64 70 68 80 Weight 135.6 kg BMI 40.54 BMI 40.54 kg/m2 Remote Patient Monitoring: Oxygen Needs: NO supplemental oxygen needs identified DME Needs: NO DME needs identified Medications: Current DTP: Other: Lasix 160mg IV push completed.09/03/23 Torsemide 20 MG Oral Tablet (Demadex); 40mg in the morning and 40mg in the afternoon. Subjective: Condition Status: Pt has F/U HV scheduled for today with RNCM Current Concerns: Disposition: RNCM visit scheduled Future Visits Scheduled: Future Appointments-next 60 days Date/Time Provider Specialty Dept Phone 09/04/2023 10:15 AM [facility] [phone] 09/04/2023 2:30 PM Love Stevens RN [facility] [phone] 09/05/2023 9:30 AM [facility] Nurse [facility] [phone] 09/11/2023 8:30 AM Love Stevens, RN [facility] [phone] 09/16/2023 11:00 AM Pharmacist1, [facility] [phone] 09/29/2023 12:30 PM Mery Calderon RDN [facility] [phone] 10/06/2023 2:10 PM (Arrive by 1:55 PM) Bárbara Rios DO Family Medicine [phone] 10/21/2023 2:40 PM (Arrive by 2:25 PM) Shivani Magallon MD Nephrology [phone] 10/27/2023 8:30 AM (Arrive by 8:15 AM) Lindsey Sheikh CRNP Sleep Disorders [phone] 01/14/2024 12:30 PM SCHOOL CHILD C[employer] ATTENDANT [facility] Cardiac Studies [phone] 08/08/2024 9:30 AM Nurse Osito Annual Wellness Ancillary [phone] aCssandra Rivero RN documented in this encounter Plan of Treatment Upcoming Encounters Date Type Department Care Team (Latest Contact Info) Description 09/04/2023 2:30 PM EST Home Visit [facility], [address] [place] [address] Love Stevens, RN [facility] [address] [place] [address] 09/05/2023 9:30 AM EST Scheduled Telephone [facility] [place], [facility] [address] [place] [address] [facility], Nurse [facility] 132 [facility] [place] [address] 09/11/2023 8:30 AM EST Home Visit [facility], [place] [address] [place] [address] Love Stevens, RN 132 [place] [address] 09/16/2023 11:00 AM EDT Telemedicine Pharmacy, [facility] 200 [facility] [place] [address] Pharmacist1, [facility] 200 [facility] [place] [address] 09/29/2023 12:30 PM EDT Scheduled Telephone [facility], [facility] [address] [facility] [place] [address] Mery Calderon RDN [address] [facility] [place] [address] 10/06/2023 2:10 PM EDT Office Visit Family Medicine [address] [phone] Bárbara R[address] [place] [address] 10/21/2023 2:40 PM EDT Office Visit Nephrology [address] [place] [address] Shivani Magallon MD 200 [facility] [place] [address] 10/27/2023 8:30 AM EDT Office Visit [facility] 132 [place] [phone] Lindsey Sheikh CRNP 132 [place] [address] 12/31/2023 11:45 AM EDT Hospital Encounter ENDO [facility], Endoscopy Room [facility] [address] [place], [place] [phone] José Miguel Sifuentes MD [address] [place] [address] 12/31/2023 11:45 AM EDT - 12/31/2023 12:15 PM EDT Surgery ENDO [facility], Endoscopy Room [facility] [address] [place] [phone] José Miguel Sifuentes MD [address] [place] [address] COLONOSCOPY FLEXIBLE PROXIMAL DIAGNOSTIC 01/14/2024 12:30 PM EDT Cardiac Studies Cardiac Studies [address] [place] [address] 08/08/2024 9:30 AM EST Nurse Only Ancillary [address] [place] [address] [place], Nurse Annual [address] [place] [address] Scheduled Procedures Name Priority Associated Diagnoses Date/Ti [...] this encounter Medical Devices Implanted Type Area Rotary Dryer Operator Device Identifier Shelf Expiration Date Model / Serial / Lot Lens Intraoc 21.0 - [id number] - [id number] Implanted:Qty: 1 on 01/22/2017 by Cheko Mcnamara MD at OR [facility] Right: Eye BAUSCH [employer] LOMB 08/05/2021 [id number] / [id number] / [id number] Lens Intraoc 21.5 - [id number] - [id number] Implanted:Qty: 1 on 02/03/2017 by Cheko Mcnamara MD at OR [facility] Left: Eye BAUSCH & LOMB 09/02/2021 [id number] / [id number] / [id number] documented as of this encounter Advance Directives [...] and were consensually agreed upon. Care Teams Orthopedic Physician Relationship Specialty Start Date End Date Bárbara Rios DO [address] [place] [address] [place] [phone] PCP - General Internal Medicine 08/16/21 documented as of this encounter
--- OUTSIDE RECORDS SUMMARY | 2023-10-20 22:54 | External Medical Summary | Summary of Care ---
Author Name Unknown Organization [facility] Address [address] [facility] [place] [address] Phone [phone] Care Team Providers Care Eye Care Professional Name Role Phone Bárbara Rios Primary Care Provider [phone] Reason for Visit * Reason Onset Date Comments Medication Refill 08/31/2023 Encounter Details Date Type Department Care Team (Late st Contact Info) Description 08/31/2023 Telephone [facility], [facility] [address] [facility] [place] [address] Elis Mulligan DO [address] [facility] [place] [address] Medication Refill Allergies Active Allergy Reactions Criticality [...] a week. 9 mL 3 3 Active Ppifs-2-nhfc Ethyl Esters 1 GM Oral Capsule (Lovaza) [...] in the Comments) Remote Patient Monitoring Vendor: [employer] Device(s): Connected Scale Self - Management Plan [...] Continues on lovaza 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 repCircuitSutra Technologiesa History of tobacco use 08/18/2017 [place] on [...] yrs 01/04/2018,08/03/2017,07/03 Pneumococcal Conjugate Vacci ne, 20-valent ([id number]) 06/09/2022 Pneumococcal Polysaccharide PPV23 (Pneumovax) 03/06/2020 Seasonal [...] to ordering provider Violette Moser RN, BSN [facility] Intake Triage Coordinator [phone] * Telephone Encounter - Peri Lopez CPhT - 08/31/2023 2:23 PM EST Pharmacy calling requesting the following medication below that is listed as "Historical". The following information was provided: Medication Name: torsemide 20mg Directions: 20mg in am and 20mg in pm Preferred Quantity: 90 day supply Previous Prescriber: elis mulligan Preferred Pharmacy: [facility] Please review and approve if appropriate. Thank you, Peri Lopez CPhT Specialist [facility] Centralized Clinical Pharmacy Services (CCPS) (Formerly Telepharmacy) 08/31/2023, 2:23 PM documented in this encounter Plan of Treatment Upcoming Encounters Date Type Department Care Team (Latest Contact Info) Description 09/11/2023 8:30 AM EST Home Visit [facility], [facility] [address] [place] [address] Love Stevens, RN 132 [facility] [place] [address] 09/16/2023 11:00 AM EDT Telemedicine Pharmacy, [facility] [place] 200 [facility] [place] [address] Pharmacist1, [facility] 200 [facility] [place] [address] 09/29/2023 12:30 PM EDT Scheduled Telephone [facility], [facility] [address] [facility] [place] [address] Mery Calderon RDN [address] [facility] [place] [address] 10/06/2023 2:10 PM EDT Office Visit Family Medicine [address] [place] [phone] Bárbara R[address] [place] [address] 10/21/2023 2:40 PM EDT Office Visit Nephrology [address] [place] [address] Shivani Magallon MD 200 [facility] [place] [address] 10/27/2023 8:30 AM EDT Office [facility] [place] [address] [place] [phone] Lindsey Sheikh CRNP 132 [facility] [place] [address] 12/31/2023 11:45 AM EDT Hospital Encounter ENDO [facility], Endoscopy Room [facility] [address] [place] [phone] José Miguel Sifuentes MD [address] [place] [address] 12/31/2023 11:45 AM EDT - 12/31/2023 12:15 PM EDT Surgery ENDO [facility], Endoscopy Room [facility] [address] [place] [phone] José Miguel Sifuentes MD [address] [place] [address] COLONOSCOPY FLEXIBLE PROXIMAL DIAGNOSTIC 01/14/2024 12:30 PM EDT Cardiac Studies Cardiac Studies [address] [place] [address] 08/08/2024 9:30 AM EST Nurse Only Ancillary [address] [place] [address] [place], Nurse Annual [address] [place] [address] Scheduled Procedures Name Priority Associated Diagnoses Date/Ti [...] this encounter Medical Devices Implanted Type Area Pricing Associate Device Identifier Shelf Expiration Date Model / Serial / Lot Lens Intraoc 21.0 - [id number] - [id number] Implanted:Qty: 1 on 01/22/2017 by Cheko Mcnamara MD at OR [facility] Right: Eye BAUSCH [employer] LOMB 08/05/2021 [id number] / [id number] / [id number] Lens Intraoc 21.5 - [id number] - [id number] Implanted:Qty: 1 on 02/03/2017 by Cheko Mcnamara MD at [facility] Left: Eye BAUSCH & LOMB 09/02/2021 [id number] / [id number] / [id number] documented as of this encounter Visit Diagnoses [...] and were consensually agreed upon. Care Teams Eye Care Professional Relationship Specialty Start Date End Date Bárbara Rios DO [address] [place] [address] [place] [address] PCP - General Internal Medicine 08/16/21 documented as of this encounter
--- OUTSIDE RECORDS SUMMARY | 2023-10-20 22:54 | External Medical Summary | Summary of Care ---
Author Name Unknown Organization [facility] Address [address] [facility] [place] [address] Phone [phone] Care Team Providers Care Runstitching Machine Operator Name Role Phone Bárbara Rios Primary Care Provider [phone] Reason for Visit * Reason Onset Date Comments Medication Refill 08/31/2023 Encounter Details Date Type Department Care Team (Late st Contact Info) Description 08/31/2023 Telephone [facility], [facility] [address] [facility] [place] [address] Elis Mulligan DO 1000 [address] [facility] [place] [address] Medication Refill Allergies Active Allergy Reactions Criticality [...] a week. 9 mL 3 3 Active Ihvje-4-ebkz Ethyl Esters 1 GM Oral Capsule (Lovaza) [...] in the Comments) Remote Patient Monitoring Vendor: [employer] Device(s): Connected Scale Self - Management Plan [...] Continues on lovaza 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 repdentalDoctorsa History of tobacco use 08/18/2017 CHAPINCITO on [...] yrs 01/04/2018,08/03/2017,07/03 Pneumococcal Conjugate Vacci ne, 20-valent ([id number]) 06/09/2022 Pneumococcal Polysaccharide PPV23 (Pneumovax) 03/06/2020 Seasonal [...] to ordering provider Violette Moser RN, BSN [facility] Intake Triage Coordinator [phone] * Telephone Encounter - Peri Lopez CPhT - 08/31/2023 2:23 PM EST Pharmacy calling requesting the following medication below that is listed as "Historical". The following information was provided: Medication Name: torsemide 20mg Directions: 20mg in am and 20mg in pm Preferred Quantity: 90 day supply Previous Prescriber: elis mulligan [facility] Pharmacy: [facility] Please review and approve if appropriate. Thank you, Peri Lopez CPhT Student Success Advisor Centralized Clinical Pharmacy Services (CCPS) (Formerly Telepharmacy) 08/31/2023, 2:23 PM documented in this encounter Plan of Treatment Upcoming Encounters Date Type Department Care Team (Latest Contact Info) Description 09/11/2023 8:30 AM EST Home Visit [facility], [facility] 132 [facility] [place] [address] Love Stevens, RN 132 [facility] [place] [address] 09/16/2023 11:00 AM EDT Telemedicine Pharmacy, [facility] [place] 200 [facility] [place] [address] Pharmacist1, [facility] 200 [facility] [place] [address] 09/29/2023 12:30 PM EDT Scheduled Telephone [facility], [facility] [address] [facility] [place] [address] Mery Calderon RDN 1000 [address] [facility] [place] [address] 10/06/2023 2:10 PM EDT Office Visit Family Medicine [address] [place] [phone] Bárbara Rios[address] [place] [address] 10/21/2023 2:40 PM EDT Office Visit Nephrology [address] [place] [address] Shivani Magallon MD [address] [place] [address] 10/27/2023 8:30 AM EDT Office Visit Sleep Disorders Ctr [facility] [place] [address] [place] [phone] Lindsey Sheikh CRNP [address] [place] [address] 12/31/2023 11:45 AM EDT Hospital Encounter ENDO [facility], Endoscopy Room [facility] [address] [place] [phone] José Miguel Sifuentes MD [address] [place] [address] 12/31/2023 11:45 AM EDT - 12/31/2023 12:15 PM EDT Surgery ENDO [facility], Endoscopy Room [facility] [address] [place] [phone] José Miguel Sifuentes MD [address] [place] [address] COLONOSCOPY FLEXIBLE PROXIMAL DIAGNOSTIC 01/14/2024 12:30 PM EDT Cardiac Studies Cardiac Studies [address] [place] [address] 08/08/2024 9:30 AM EST Nurse Only Ancillary [address] [place] [address] [place], Nurse Annual [address] [place] [address] Scheduled Procedures Name Priority Associated Diagnoses Date/Ti [...] encounter Medical Devices Implanted Type Area Hand Tile Maker Device Identifier Shelf Expiration Date Model / Serial / Lot Lens Intraoc 21.0 - [id number] - [id number] Implanted:Qty: 1 on 01/22/2017 by Cheko Mcnamara MD at OR [facility] Right: Eye BAUSCH & LOMB 08/05/2021 [id number] / [id number] / [id number] Lens Intraoc 21.5 - [id number] - [id number] Implanted:Qty: 1 on 02/03/2017 by Cheko Mcnamara MD at OR [facility] Left: Eye BAUSCH & LOMB 09/02/2021 [id number] / [id number] / [id number] documented as of this encounter Visit Diagnoses [...] and were consensually agreed upon. Care Teams Runstitching Machine Operator Relationship Specialty Start Date End Date Bárbara Rios DO [address] [place] [address] [place] [address] PCP - General Internal Medicine 08/16/21 documented as of this encounter
--- OUTSIDE RECORDS SUMMARY | 2023-10-20 22:54 | External Medical Summary | Summary of Care ---
Author Name Unknown Organization [facility] Address [address] [facility] [place] [address] Phone [phone] Care Team Providers Care Admission Nurse Name Role Phone Bárbara Rios Primary Care Provider [phone] Reason for Visit * Reason Onset Date Comments [facility]: Maintenance 09/05/2023 Encounter Details Date Type Department Care Team (Late st Contact Info) Description 09/05/2023 9:30 AM EST Scheduled Telephone [facility], [facility] 132 [facility] [place] [address] [facility], [facility] 132 [facility] [place] [address] Allergies Active Allergy Reactions Criticality Noted Date [...] 32 UNITS WITH DINNER PLUS CORRECTION PER [facility] CLINIC OR DIRECTED UP TO [...] a week. 9 mL 3 04/09/2023 Active Bkhid-6-zzur Ethyl Esters 1 GM Oral Capsule (Lovaza) [...] in the Comments) Remote Patient Monitoring Vendor: [employer] Device(s): Connected Scale Self - Management Plan [...] yrs 01/04/2018,08/03/2017,07/03 Pneumococcal Conjugate Vacci ne, 20-valent ([id number]) 06/09/2022 Pneumococcal Polysaccharide PPV23 (Pneumovax) 03/06/2020 Seasonal [...] Telephone Encounter - Carolina Carey RN - 09/05/2023 10:20 AM EST Images from the original note were not included. [facility] Telephonic Nurse Follow-Up Call [facility] Subprogram: Focused Care Management (3-9 months) Follow Up Call Type: Routine follow up call / Status Check Acute issue requiring follow-up call: Heart Failure Exacerbation Objective: 09/04/2023 2:02 PM 09/03/2023 1:45 PM 09/03/2023 10:26 AM 08/26/2023 11:50 AM 08/25/2023 9:08 AM VITALS ACROSS ENCOUNTERS BP 118/70 158/72 130/70 132/64 Pulse 76 64 70 68 Weight 135.6 kg BMI 40.54 BMI 40.54 kg/m2 Remote Patient Monitoring: AMC Scale: Oxygen Needs: NO CHANGE from baseline supplemental oxygen needs DME Needs: NO DME needs identified Medications: No medication or dose adjustments made during acute episode Subjective: Condition Status: Improvement in symptoms but not at baseline Current Concerns: Spoke with Tony, is currently outside doing yardwork, reports being almost back to baseline, aware weight went up 1.1 lbs overnite. Is taking Torsemide 40 mg BID, Potassium 10meq BID, uses AMC scale,follow EDWIN low sodium/diabetic diet, monitor blood sugars QID. Will add follow up call tomorrow to assess weight and breathing Disposition: Routed to [facility] and/or [facility] at Home Care Team for further advice and Follow up call scheduled for tomorrow with LUNCHROOM MOTHER [employer] Dynamics Manager Architect Future Visits Scheduled: Future Appointments-next 60 days Date/Time Provider Specialty Dept Phone 09/11/2023 8:30 AM Love Stevens, RN [facility] [phone] 09/16/2023 11:00 AM Pharmacist1, [facility] [phone] 09/29/2023 12:30 PM Mery Calderon RDN [facility] [phone] 10/06/2023 2:10 PM (Arrive by 1:55 PM) Bárbara Rios DO Family Medicine [phone] 10/21/2023 2:40 PM (Arrive by 2:25 PM) Shivani Magallon MD Nephrology [phone] 10/27/2023 8:30 AM (Arrive by 8:15 AM) Lindsey Sheikh CRNP Sleep Disorders [phone] 01/14/2024 12:30 PM HYDRAULIC TESTER [facility] Cardiac Studies [phone] 08/08/2024 9:30 AM Nurse Osito Annual Wellness Ancillary [phone] Carolina Carey RN documented in this encounter Plan of Treatment Upcoming Encounters Date Type Department Care Team (Latest Contact Info) Description 09/06/2023 8:30 AM EST Scheduled Telephone [facility], [facility] 132 [place] [address] [facility] 132 [place] [address] 09/11/2023 8:30 AM EST Home Visit [facility], [facility] 132 [place] [address] Love Stevens, RN [address] [place] [address] 09/16/2023 11:00 AM EDT Telemedicine Pharmacy, [address] [place] [address] Pharmacist1, [facility] [address] [place] [address] 09/29/2023 12:30 PM EDT Scheduled Telephone [facility], [place] 1000 [address] [facility] [place] [address] Mery Calderon, RDN 1000 E [facility] [place] [address] 10/06/2023 2:10 PM EDT Office Visit Family Medicine [address] [place] [phone] Bárbara Rios[address] [place] [address] 10/21/2023 2:40 PM EDT Office Visit Nephrology [address] [place] [address] Shivani Magallon MD [address] [place] [address] 10/27/2023 8:30 AM EDT Office Visit Sleep Disorders Ctr [facility] Gary Dickinson [address] [place] [phone] Lindsey Sheikh CRNP [address] [place] [address] 12/31/2023 11:45 AM EDT Hospital Encounter ENDO [facility], Endoscopy Room [facility] [address] [place] [phone] José Miguel Sifuentes MD [address] [place] [address] 12/31/2023 11:45 AM EDT - 12/31/2023 12:15 PM EDT Surgery ENDO [facility], Endoscopy Room [facility] [address] [place] [phone] José Miguel Sifuentes MD [address] [place] [address] COLONOSCOPY FLEXIBLE PROXIMAL DIAGNOSTIC 01/14/2024 12:30 PM EDT Cardiac Studies Cardiac Studies [address] [place] [address] 08/08/2024 9:30 AM EST Nurse Only Ancillary [address] [place] [address] [place], Nurse Annual [address] [place] [address] Scheduled Procedures Name Priority Associated Diagnoses Date/Ti [...] this encounter Medical Devices Implanted Type Area Garnetter Device Identifier Shelf Expiration Date Model / Serial / Lot Lens Intraoc 21.0 - [id number] - [id number] Implanted:Qty: 1 on 01/22/2017 by Cheko Mcnamara MD at OR [facility] Right: Eye BAUSCH & LOMB 08/05/2021 [id number] / [id number] / [id number] Lens Intraoc 21.5 - [id number] - [id number] Implanted:Qty: 1 on 02/03/2017 by Cheko Mcnamara MD at OR [facility] Left: Eye BAUSCH & LOMB 09/02/2021 [id number] / [id number] / [id number] documented as of this encounter Advance Directives [...] and were consensually agreed upon. Care Teams Admission Nurse Relationship Specialty Start Date End Date Bárbara Rios DO [address] [place] [address] [place] [phone] PCP - General Internal Medicine 08/16/21 documented as of this encounter
--- OUTSIDE RECORDS SUMMARY | 2023-10-20 22:54 | External Medical Summary | Summary of Care ---
Author Name Unknown Organization [facility] Address [address] [facility] [place] [address] Phone [phone] Care Team Providers Care Sledger Name Role Phone Bárbara Rios Primary Care Provider [phone] Reason for Visit * Reason Onset Date Comments Medication Refill 08/31/2023 Encounter Details Date Type Department Care Team (Late st Contact Info) Description 08/31/2023 Telephone [facility], [facility] [address] [facility] [place] [address] Elis Mulligan DO [address] [facility] [place] [address] Medication Refill Allergies Active Allergy Reactions Criticality [...] a week. 9 mL 3 3 Active Xqgqv-8-tzmm Ethyl Esters 1 GM Oral Capsule (Lovaza) [...] in the Comments) Remote Patient Monitoring Vendor: Zapcoder Device(s): Connected Scale Self - Management Plan [...] Continues on lovaza 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 repRateElerta History of tobacco use 08/18/2017 CHAPINCITO on [...] yrs 01/04/2018,08/03/2017,07/03 Pneumococcal Conjugate Vacci ne, 20-valent ([id number]) 06/09/2022 Pneumococcal Polysaccharide PPV23 (Pneumovax) 03/06/2020 Seasonal [...] encounter Miscellaneous Notes * Telephone Encounter - Viola Zhou LPN - 09/08/2023 9:28 AM EST I called pt- he did not get his refills, they did not go through. [facility] refill encounter to [facility]. * Telephone Encounter - Eleuterio Rose MD - 09/08/2023 9:07 AM EST Torsemide was sent last week by [facility]. If he is still in [...] to ordering provider Violette Moser RN, BSN [facility] Intake Triage Coordinator [phone] * Telephone Encounter - Peri Lopez CPhT - 08/31/2023 2:23 PM EST Pharmacy calling requesting the following medication below that is listed as "Historical". The following information was provided: Medication Name: torsemide 20mg Directions: 20mg in am and 20mg in pm Preferred Quantity: 90 day supply Previous Prescriber: elis mulligan Preferred Pharmacy: [facility] Please review and approve if appropriate. Thank you, Peri Lopez information technology account manager [facility] (CCPS) (Formerly Telepharmacy) 08/31/2023, 2:23 PM documented in this encounter Plan of Treatment Upcoming Encounters Date Type Department Care Team (Latest Contact Info) Description 09/11/2023 8:30 AM EST Home Visit [facility], [facility] [address] [facility] [place] [address] Love Stevens, ANNE MARIE 132 [facility] [place] [address] 09/16/2023 11:00 AM EDT Telemedicine Pharmacy, [facility] 200 [place] [address] Pharmacist1, [facility] [address] 09/29/2023 12:30 PM EDT Scheduled Telephone [facility], [facility] [address] [facility] [place] [address] Mery Calderon RDN [address] [facility] [place] [address] 10/06/2023 2:10 PM EDT Office Visit Family [address] [phone] Rios, Bárbara Sneed[address] [place] [address] 10/21/2023 2:40 PM EDT Office Visit Nephrology [address] [place] [address] Shivani Magallon MD [address] [facility] [address] 10/27/2023 8:30 AM EDT Office Visit Sleep Disorders Ctr [facility] [address] [place] [phone] Lindsey Sheikh CRNP [address] [place] [address] 12/31/2023 11:45 AM EDT Hospital Encounter ENDO [facility], Endoscopy Room [facility] [address] [place] [phone] José Miguel Sifuentes MD [address] [place] [address] 12/31/2023 11:45 AM EDT - 12/31/2023 12:15 PM EDT Surgery ENDO [facility], Endoscopy Room [facility] [address] [place] [phone] José Miguel Sifuentes MD [address] [place] [address] COLONOSCOPY FLEXIBLE PROXIMAL DIAGNOSTIC 01/14/2024 12:30 PM EDT Cardiac Studies Cardiac Studies [address] [place] [address] 08/08/2024 9:30 AM EST Nurse Only Ancillary [address] [place] [address] [place], Nurse [address] [place] [address] Scheduled Procedures Name Priority Associated Diagnoses Date/Ti [...] this encounter Medical Devices Implanted Type Area Radio News Writer Device Identifier Shelf Expiration Date Model / Serial / Lot Lens Intraoc 21.0 - [id number] - [id number] Implanted:Qty: 1 on 01/22/2017 by Cheko Mcnamara MD at OR [facility] Right: Eye [employer]USCH [employer] LOMB 08/05/2021 [id number] / [id number] / [id number] Lens Intraoc 21.5 - [id number] - [id number] Implanted:Qty: 1 on 02/03/2017 by Cheko Mcnamara MD at OR [facility] Left: Eye BAUSCH & LOMB 09/02/2021 [id number] / [id number] / [id number] documented as of this encounter Visit Diagnoses [...] and were consensually agreed upon. Care Teams Sledger Relationship Specialty Start Date End Date Bárbara Rios DO [address] [place] [address] [place] [phone] PCP - General Internal Medicine 08/16/21 documented as of this encounter
--- OUTSIDE RECORDS SUMMARY | 2023-10-20 22:55 | External Medical Summary | Summary of Care ---
Author Name Unknown Organization [facility] Address [address] [facility] [place] [address] Phone [phone] Care Team Providers Care Machinist Supervisor Outside Name Role Phone Bárbaar Rios Primary Care Provider Reason for Visit * Reason Comments Outpatient Testing Encounter Details Date Type Department Care Team (Late st Contact Info) Description 09/02/2023 1:30 PM EST Laboratory Laboratory [address] [place] [phone] [place] [address] [employer] Other*[id number]; Chronic heart failure with preserved ejection fraction (HCC) Allergies Active Allergy Reactions Criticality Noted Date Comments Other Allergy (See Comments) Rash Low 10/13/2022 1+ cocamidopropyl betaine Sglt2 Inhibitors Other (Please comment) High 09/04/2020 Genital infection Sulfa Antibiotics Rash 10/15/2016 documented as of this encounter (statuses as of 09/02/2023) Medications Medication Sig Dispensed Refills Start Date [...] a week. 9 mL 3 04/09/2023 Active Iiwfj-6-ggjy Ethyl Esters 1 GM Oral Capsule (Lovaza) [...] 14 days. 6 mL 3 06/19/2023 Active Potassium Chloride [facility] 10 MEQ Oral Tablet Extended ReleaseIndications: 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) Take 1 Tablet by mouth in the morning. 90 Tablet 3 07/13/2023 Active hydrALAZINE HCl 25 MG Oral Tablet (Apresoline)Indicat ions:HTN, goal below 140/90 Take 1 Tablet by mouth in the morning and 1 Tablet at noon and 1 Tablet before bedtime. 300 Tablet 3 08/12/2023 Active Lisinopril 20 MG Oral Tablet (Prinivil) Take 1 Tablet by mouth in the morning. 100 Tablet 3 08/12/2023 Active Torsemide 20 MG Oral Tablet (Demadex)Indication s:Hypertensive 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 (HCC) 40mg in the morning and 20mg in the afternoon. 0 08/25/2023 Active Clotrimazole-Betame thasone 1-0.05 % External Cream (Lotrisone) APPLY TOPICALLY TO AFFECTED AREA(S) TWO TIMES A DAY. 90 g 1 08/27/2023 Active Hospital, Clinic, or Other Facility Administered [...] as of this encounter (statuses as of 09/02/2023) Active Problems Problem Noted Date Diagnosed Date [...] in the Comments) Remote Patient Monitoring Vendor: IPLogic Device(s): Connected Scale Self - Management Plan [...] Continues on lovaza 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 repKnowFua History of tobacco use 08/18/2017 CHAPINCITO on [...] as of this encounter (statuses as of 09/02/2023) Resolved Problems Problem Noted Date Diagnosed Date [...] as of this encounter (statuses as of 09/02/2023) Immunizations Name Administration Dates Next Due COVID-19 mRNA, LNP-s, No Pre serve, 2-Dose Series (Moderna) 12/10/2020,11/12/2020 Hepatitis B, 20+ yrs 01/04/2018,08/03/2017,07/03 Pneumococcal Conjugate Vacci ne, 20-valent ([id number]) 06/09/2022 Pneumococcal Polysaccharide PPV23 (Pneumovax) 03/06/2020 Seasonal [...] PM EST Scheduled Telephone [facility], [facility] [address] [facility] [place] [address] Mery Calderon RDN [address] [facility] [place] [address] 09/11/2023 8:30 AM EST Home Visit [facility], [facility] 132 [facility] [place] [address] Love Stevens, ANNE MARIE 132 [facility] [place] [address] 09/16/2023 11:00 AM EDT Telemedicine Pharmacy, [facility] [place] [address] Pharmacist1, [facility] 200 [facility] [place] [address] 10/06/2023 2:10 PM EDT Office Visit Family Medicine [address] [place] [phone] Bárbara Rios[address] [place] [address] 10/21/2023 2:40 PM EDT Office Visit Nephrology [address] [place] [address] Shivani Magallon MD [address] [place] [address] 10/27/2023 8:30 AM EDT Office Visit [facility] Ctr [facility] [address] [place] [phone] Lindsey Sheikh CRNP [address] [place] [address] 12/31/2023 11:45 AM EDT Hospital Encounter ENDO [facility], Endoscopy Room [facility] [address] [place] [phone] José Miguel Sifuentes MD [address] [place] [address] 12/31/2023 11:45 AM EDT - 12/31/2023 12:15 PM EDT Surgery ENDO [facility], Endoscopy Room [facility] [address] [place] [phone] José Miguel Sifuentes MD [address] [place] [address] COLONOSCOPY FLEXIBLE PROXIMAL DIAGNOSTIC 01/14/2024 12:30 PM EDT Cardiac Studies Cardiac Studies [address] [place] [address] 08/08/2024 9:30 AM EST Nurse Only Ancillary [address] [place] [address] [place], Nurse Annual [address] [place] [address] Pending Results Name Type Priority Associated Diagnoses Date /Time MYCODE SUBSEQUENT ADULT Lab Routine [facility] Other*[id number] 09/02/2023 1:20 PM EST BASIC METABOLIC PANEL Lab Routine Chronic heart failure with preserved ejection fraction (HCC) 09/02/2023 1:20 PM EST MYCODE SST1 Lab Routine [facility] Other*[id number] 09/02/2023 1:20 PM EST MYCODE SST2 Lab Routine [facility] Other*[id number] 09/02/2023 1:20 PM EST Scheduled Procedures Name Priority Associated Diagnoses Date/Ti [...] 06/11/2023, 03/07, 12/17/2022, Additional history exists GFR 02/22/2024 08/24/2023, 07/07, 06/11/2023, Additional history exists Albumin/Creatinine Ratio 06/11/2024 023, 09/22/2022, 09/02/2022, Additional history exists Diabetic Eye Exam 07/01/2024 07/01/2023, , 02/12/2023, Additional history exists Depression Screening 08/05/2024 08/05/2023 O2 ASSESSMENT COMPLETED IN PAST YEAR FOR COPD 08/26/2024 08/26/2023 Arreola's Esophagus Surveilance 06/16/2025 06/16/2022, 06/16/2022, 03/20/2022, [...] this encounter Medical Devices Implanted Type Area Bead Picker Device Identifier Shelf Expiration Date Model / Serial / Lot Lens Intraoc 21.0 - [id number] - [id number] Implanted:Qty: 1 on 01/22/2017 by Cheko Mcnamara MD at OR [facility] Right: Eye BAUSCH [employer] LOMB 08/05/2021 [id number] / [id number] / [id number] Lens Intraoc 21.5 - [id number] - [id number] Implanted:Qty: 1 on 02/03/2017 by Cheko Mcnamara MD at OR [facility] Left: Eye BAUSCH & LOMB 09/02/2021 [id number] / [id number] / [id number] documented as of this encounter Visit Diagnoses Diagnosis [employer] Other*[id number] Chronic heart failure with preserved ejection fraction (HCC) Special screening for malignant neoplasms, colon [...] and were consensually agreed upon. Care Teams Machinist Supervisor Outside Relationship Specialty Start Date End Date Bárbara Rios DO [address] [place] [address] [place] [address] PCP - General Internal Medicine 08/16/21 documented as of this encounter
--- OUTSIDE RECORDS SUMMARY | 2023-10-20 22:55 | External Medical Summary | Summary of Care ---
Author Name Unknown Organization [facility] Address [address] [facility] [place] [address] Phone [phone] Care Team Providers Care Scaffold Worker Name Role Phone Bárbara Rios Primary Care Provider [phone] Reason for Visit * Reason Onset Date Comments Medication Refill 08/31/2023 Encounter Details Date Type Department Care Team (Late st Contact Info) Description 08/31/2023 Telephone [facility], [facility] [address] [facility] [place] [address] Elis Mulligan DO [address] [facility] [place] [address] Medication Refill Allergies Active Allergy Reactions Criticality Noted Date Comments Other Allergy (See Comments) Rash Low 10/13/2022 1+ cocamidopropyl betaine Sglt2 Inhibitors Other (Please comment) High 09/04/2020 Genital infection Sulfa Antibiotics Rash 10/15/2016 documented as of this encounter (statuses as of 08/31/2023) Medications Medication Sig Dispensed Refills Start Date [...] 32 UNITS WITH DINNER PLUS CORRECTION PER [facility] OR DIRECTED UP TO [...] hemoglobin A1c goal of less than 7.0% ([facility]) USE TO INJECT INSULINS 5 TIMES DAILY 500 Each 3 02/16/2023 Active Semaglutide (2 MG/DOSE) 8 MG/3ML Subcutaneous Solution Pen-injector (Ozempic)Indication s:Type 2 diabetes mellitus with hemoglobin A1c goal of less than 8.0% ([facility]) Inject 2 mg under the skin once a week. 9 mL 3 04/09/2023 Active Jiief-1-vuqx Ethyl Esters 1 GM Oral Capsule (Lovaza) [...] as of this encounter (statuses as of 08/31/2023) Active Problems Problem Noted Date Diagnosed Date [...] in the Comments) Remote Patient Monitoring Vendor: ApplyMap Device(s): Connected Scale Self - Management Plan [...] Continues on lovaza 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 repSmash Technologiesa History of tobacco use 08/18/2017 CHAPINCITO [...] as of this encounter (statuses as of 08/31/2023) Resolved Problems Problem Noted Date Diagnosed Date [...] as of this encounter (statuses as of 08/31/2023) Immunizations Name Administration Dates Next Due COVID-19 mRNA, LNP-s, No Pre serve, 2-Dose Series (Moderna) 12/10/2020,11/12/2020 Hepatitis B, 20+ yrs 01/04/2018,08/03/2017,07/03 Pneumococcal Conjugate Vacci ne, 20-valent ([id number]) 06/09/2022 Pneumococcal Polysaccharide PPV23 (Pneumovax) 03/06/2020 Seasonal [...] Routing to ordering provider Violette Moser RN, N [facility] Intake Triage Coordinator [phone] * Telephone Encounter - Peri Lopez CPhT - 08/31/2023 2:23 PM EST Pharmacy calling requesting the following medication below that is listed as "Historical". The following information was provided: Medication Name: torsemide 20mg Directions: 20mg in am and 20mg in pm Preferred Quantity: 90 day supply Previous Prescriber: elis mulligan Preferred Pharmacy: [facility] Please review and approve if appropriate. Thank you, Peri Lopez CPhT [facility] ([facility]PS) (Formerly Telepharmacy) 08/31/2023, 2:23 PM documented in this encounter Plan of Treatment Upcoming Encounters Date Type Department Care Team (Latest Contact Info) Description 09/03/2023 3:00 PM EST Scheduled Telephone [facility], [facility] [address] [facility] [place] [address] Mery Calderon RDN [address] [facility] [place] [address] 09/11/2023 8:30 AM EST [facility], [facility] 132 [place] [address] Love Stevens RN 132 [place] [address] 09/16/2023 11:00 AM EDT Telemedicine Pharmacy, [facility] 200 [facility] [place] [address] Pharmacist1, [facility] 200 [facility] [place] [address] 10/06/2023 2:10 PM EDT Office Visit Family Medicine [address] [place] [phone] Bárbara Rios[address] [place] [address] 10/21/2023 2:40 PM EDT Office Visit Nephrology [address] [place] [address] Shivani Magallon MD [address] [place] [address] 10/27/2023 8:30 AM EDT Office Visit Sleep Disorders Ctr [facility] 132 [place] [phone] Lindsey Sheikh CRNP 132 [place] [address] 12/31/2023 11:45 AM EDT Hospital Encounter ENDO [facility], Endoscopy Room [facility] 132 [place] [phone] José Miguel Sifuentes MD 132 [place] [address] 12/31/2023 11:45 AM EDT - 12/31/2023 12:15 PM EDT Surgery ENDO [facility], Endoscopy Room [facility] [address] [place] [phone] José Miguel Sifuentes MD [address] [place] [address] COLONOSCOPY FLEXIBLE PROXIMAL DIAGNOSTIC 01/14/2024 12:30 PM EDT Cardiac Studies Cardiac Studies [address] [place] [address] 08/08/2024 9:30 AM EST Nurse Only Ancillary [address] [place] [address] [place], Nurse [address] [place] [address] Scheduled Procedures Name Priority Associated Diagnoses Date/Ti [...] this encounter Medical Devices Implanted Type Area Building Specialist Device Identifier Shelf Expiration Date Model / Serial / Lot Lens Intraoc 21.0 - [id number] - [id number] Implanted:Qty: 1 on 01/22/2017 by Cheko Mcnamara MD at OR [facility] Right: Eye BAUSCH & LOMB 08/05/2021 [id number] / [id number] / [id number] Lens Intraoc 21.5 - [id number] - [id number] Implanted:Qty: 1 on 02/03/2017 by Cheko Mcnamara MD at OR [facility] Left: Eye BAUSCH & LOMB 09/02/2021 [id number] / [id number] / [id number] documented as of this encounter Visit Diagnoses [...] and were consensually agreed upon. Care Teams Scaffold Worker Relationship Specialty Start Date End Date Bárbara Rios DO [address] [place] [address] [place] [phone] PCP - General Internal Medicine 08/16/21 documented as of this encounter
--- OUTSIDE RECORDS SUMMARY | 2023-10-20 22:55 | External Medical Summary | Summary of Care ---
Author Name Unknown Organization [facility] Address [address] [place] [place] [address] Phone [phone] Care Team Providers Care Oracle Specialist Name Role Phone Bárbara Rios Primary Care Provider [phone] Reason for Visit * Reason Onset Date Comments [facility]: Screening 09/03/2023 Encounter Details Date Type Department Care Team (Late st Contact Info) Description 09/03/2023 Telephone [facility], [facility] [address] [facility] [place] [id number] [facility], Nurse [facility] [address] [place] [place] [address] [facility]: Screening Allergies Active Allergy Reactions Criticality Noted Date [...] a week. 9 mL 3 04/09/2023 Active Kutev-4-jfan Ethyl Esters 1 GM Oral Capsule (Lovaza) [...] in the Comments) Remote Patient Monitoring Vendor: [employer] Device(s): Connected Scale Self - Management Plan [...] Continues on lovaza 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 repTidal Labsa History of tobacco use 08/18/2017 CHAPINCITO on [...] yrs 01/04/2018,08/03/2017,07/03 Pneumococcal Conjugate Vacci ne, 20-valent ([id number]) 06/09/2022 Pneumococcal Polysaccharide PPV23 (Pneumovax) 03/06/2020 Seasonal [...] encounter Miscellaneous Notes * Telephone Encounter - Janeth Kelley, ROSCOE - 09/03/2023 10:50 AM EST [facility] Remote Patient Monitoring Able to contact patient: Trigger type: Abnormal reading(s): AMC (Advanced Monitored Caregiving): Scale: Baseline weight: ?293 lbs Trigger weight: 294.8 lbs; weight increased 3.7 lbs in 3 day(s) Trigger priority per AMC: high Patient takes diuretic medication: Yes, reviewed current diuretic use: Name of medication: Torsemide Frequency: 40 mg AM. 20 mg PM Symptom review: Edema: BLE SOB: reports he is panting at rest, SOB w/ any activity Abdominal Fullness: noted Diet Reviewed: No, reports he has been trying to be compliant Fluid Intake Reviewed: Yes. Patient is on a fluid restriction: Yes, restriction amount in milliliters or liters: 2l Adherent to restriction: Yes Self-Management Plan Reviewed: Red Flags: increased SOB, BLE edema DTP (Diuretic Titration Protocol): Describe DTP: Name of medication(s): Tosremide Dose: 80 mg AM, 40 mg PM Frequency: daily X 3 days Used in past 2 weeks: Yes, Received IV Lasix 2/ Risk assignment recommendation: Moderate risk findings (check as applicable): [] Moderate trigger priority on AMC [] Confirmed tympanic equivalent temperature 100.4-101.9 F one hour post administration of antipyretic [x] Weight gain [...] resting HR greater than 105 WITH symptoms [x] Severe heart failure symptoms [] Confirmed new sustained resting HR less than 60 WITH symptoms [] Severe COPD symptoms [] Confirmed SBP less than 90 WITH symptoms [] Confirmed new SpO2 less than 90% [] Confirmed SBP greater than 170 WITH sy days aftermptoms [] Confirmed DBP greater than 90 WITH symptoms Additional risk selection justification: Spoke with pt reports this AM he is having increased SOB, panting at rest. Increased abdominal distention and LE edema. Was waiting on lab review for direction on increased SOB. IM to Jeffery Alarconpatriciamary NCM- Pt previously did not respond well to IV Lasix. She is going to reach out to pt and RMC for further direction. Overall risk and identified plan: High risk: Next day follow up call scheduled Route to RNCM (Registered Nurse Vocational Services Specialist) and Advance Practitioner Route to RMC (Remote Medical Coordinator) documented in this encounter Plan of Treatment Upcoming Encounters Date Type Department Care Team (Latest Contact Info) Description 09/03/2023 3:00 PM EST Scheduled Telephone [facility], [facility] [address] [facility] [place] [address] Mery Calderon RDN [address] [facility] [place] [address] Uncontrolled type 2 diabetes mellitus with hyperglycemia (HCC)* 09/04/2023 10:15 AM EST Scheduled Telephone [facility], [facility] [address] Coordinator, [facility] [address] [place] [address] 09/05/2023 9:30 AM EST Scheduled Telephone [facility], [facility] [place] [address] Region, Nurse [place] [address] [facility] [place] [address] 09/11/2023 8:30 AM EST Home Visit [facility], [facility] [address] [place] [address] Love Stevens RN [address] [place] [address] 09/16/2023 11:00 AM EDT Telemedicine Pharmacy, [facility] [address] [facility] [place] [address] Pharmacist1, [facility] 200 [facility] [place] [address] 09/29/2023 12:30 PM EDT Scheduled Telephone [facility], [facility] [address] [facility] [place] [address] Mery Calderon RDN [address] [facility] [place] [address] 10/06/2023 2:10 PM EDT Office Visit Family Medicine [address] [place] [phone] Bárbara Rios[address] [place] [address] 10/21/2023 2:40 PM EDT Office Visit Nephrology [address] [place] [address] Shivani Magallon MD [address] [place] [address] 10/27/2023 8:30 AM EDT Office Visit Sleep Disorders Ctr [facility] [place] [address] [place] [phone] Lindsey Sheikh CRNP [address] [place] [address] 12/31/2023 11:45 AM EDT Hospital Encounter ENDO [facility], Endoscopy Room [facility] [address] [place] [phone] José Miguel Sifuentes MD [address] [place] [address] 12/31/2023 11:45 AM EDT - 12/31/2023 12:15 PM EDT Surgery ENDO [facility], Endoscopy Room [facility] [address] [place] [phone] José Miguel Sifuentes MD [address] [place] [address] COLONOSCOPY FLEXIBLE PROXIMAL DIAGNOSTIC 01/14/2024 12:30 PM EDT Cardiac Studies Cardiac Studies [address] [place] [address] 08/08/2024 9:30 AM EST Nurse Only Ancillary [address] [place] [address] [place], Nurse Annual [address] [place] [address] Scheduled Procedures Name Priority Associated Diagnoses Date/Ti [...] this encounter Medical Devices Implanted Type Area Lay Out Machine Operator Device Identifier Shelf Expiration Date Model / Serial / Lot Lens Intraoc 21.0 - [id number] - [id number] Implanted:Qty: 1 on 01/22/2017 by Cheko Mcnamara MD at OR [facility] Right: Eye [employer] LOMB 08/05/2021 [id number] / [id number] / [id number] Lens Intraoc 21.5 - [id number] - [id number] Implanted:Qty: 1 on 02/03/2017 by Cheko Mcnamara MD at OR [facility] Left: Eye BAUSCH & LOMB 09/02/2021 [id number] / [id number] / [id number] documented as of this encounter Advance Directives [...] were consensually agreed upon. Care Teams Oracle Specialist Relationship Specialty Start Date End Date Bárbara Rios DO [address] [place] [address] [place] [phone] PCP - General Internal Medicine 08/16/21 documented as of this encounter
--- OUTSIDE RECORDS SUMMARY | 2023-10-20 22:55 | External Medical Summary ---
Author Name Unknown Address Unknown Organization K01:[facility] - [address] [place] [address] Laboratory Report Ordering Provider Test Date Status ESTIVEN PEREZ 09/02/2023 13:20:34 Final Observation Date Value Abnormality Reference (Units ) Status MYCODE SPECIMEN-SST 09/02/2023 13:20:34 Freezing of extracted DNA, whole blood and/or serum. Final Performing Location LABORATORY C - [address] [place] [address]
--- OUTSIDE RECORDS SUMMARY | 2023-10-20 22:55 | External Medical Summary | Summary of Care ---
Author Name Unknown Organization [facility] Address [address] [facility] [place] [address] Phone [phone] Care Team Providers Care Acetylene Gas Compressor Name Role Phone Bárbara Rios Primary Care Provider [phone] Reason for Visit * Reason Onset Date Comments Follow Up 08/29/2023 Encounter Details Date Type Department Care Team (Late st Contact Info) Description 08/29/2023 9:30 AM EST Scheduled Telephone [facility], [facility] 132 [facility] [place] [address] [facility], Nurse [facility] 132 [facility] [place] [address] Allergies Active Allergy Reactions Criticality Noted Date Comments Other Allergy (See Comments) Rash Low 10/13/2022 1+ cocamidopropyl betaine Sglt2 Inhibitors Other (Please comment) High 09/04/2020 Genital infection Sulfa Antibiotics Rash 10/15/2016 documented as of this encounter (statuses as of 08/29/2023) Medications Medication Sig Dispensed Refills Start Date [...] 32 UNITS WITH DINNER PLUS CORRECTION PER [facility] OR DIRECTED UP TO 120 UNITS [...] (HCC) USE TO INJECT INSULINS 5 TIMES DAILY. DX: E11.9 500 Each 3 02/16/2023 Active Semaglutide (2 MG/DOSE) 8 MG/3ML Subcutaneous Solution Pen-injector (Ozempic)Indication s:Type 2 diabetes mellitus with hemoglobin A1c goal of less than 8.0% ([facility]) Inject 2 mg under the skin once a week. 9 mL 3 04/09/2023 Active Ovttu-2-zwdw Ethyl Esters 1 GM Oral Capsule (Lovaza) [...] as of this encounter (statuses as of 08/29/2023) Active Problems Problem Noted Date Diagnosed Date [...] in the Comments) Remote Patient Monitoring Vendor: [email or web address] Device(s): Connected Scale Self - Management Plan [...] as of this encounter (statuses as of 08/29/2023) Resolved Problems Problem Noted Date Diagnosed Date [...] as of this encounter (statuses as of 08/29/2023) Immunizations Name Administration Dates Next Due COVID-19 mRNA, LNP-s, No Pre serve, 2-Dose Series (Moderna) 12/10/2020,11/12/2020 Hepatitis B, 20+ yrs 01/04/2018,08/03/2017,07/03 Pneumococcal Conjugate Vacci ne, 20-valent ([id number]) 06/09/2022 Pneumococcal Polysaccharide PPV23 (Pneumovax) 03/06/2020 Seasonal [...] Telephone Encounter - Love Stevens RN - 08/29/2023 3:58 PM EST Images from the original note were not included. Phone call to patient for follow up- directed to take extra Torsemide in the afternoon for the weekend. (Torsemide 40mg BID). Per Dr. Mulligan, "If weight/symptoms improve may want to consider this as his chronic dose. Weight loss of 2lbs/24 hours. Reports feeling better. Sob returned to baseline. Still has abdominal bloating but is not so bothersome. Understands to continue 40mg afternoon dose today and tomorrow. Encouraged to call with worsening symptoms. Follow up phone call tomorrow. documented in this encounter Plan of Treatment Upcoming Encounters Date Type Department Care Team (Latest Contact Info) Description 08/30/2023 9:30 AM EST Scheduled Telephone [facility], [facility] 132 [facility] [place] [address] [facility], Nurse [facility] [address] [facility] [place] [address] 09/03/2023 3:00 PM EST Scheduled Telephone [facility], [facility] [address] [facility] [place] [address] Mery Calderon RDN [address] [facility] [place] [address] 09/11/2023 8:30 AM EST Home Visit [facility], [facility] 132 [place] [address] Love Stevens, RN [address] [place] [address] 09/16/2023 11:00 AM EDT Telemedicine Pharmacy, [facility] [place] [address] [place] [address] Pharmacist1, [facility] [address] [place] [address] 10/06/2023 2:10 PM EDT Office Visit Family Medicine [address] [place] [phone] Bárbara Rios[address] [place] [address] 10/21/2023 2:40 PM EDT Office Visit Nephrology [address] [place] [address] Shivani Magallon MD [address] [place] [address] 10/27/2023 8:30 AM EDT Office Visit Sleep Disorders Ctr [facility] [place] 132 [place] [phone] Lindsey Sheikh CRNP 132 [place] [address] 12/31/2023 11:45 AM EDT Hospital Encounter ENDO [facility], Endoscopy Room [facility] 132 [place] [phone] José Miguel Sifuentes MD 132 [place] [address] 12/31/2023 11:45 AM EDT - 12/31/2023 12:15 PM EDT Surgery ENDO [facility], Endoscopy Room [facility] [address] [place] [phone] José Miguel Sifuentes MD [address] [place] [address] COLONOSCOPY FLEXIBLE PROXIMAL DIAGNOSTIC 01/14/2024 12:30 PM EDT Cardiac Studies Cardiac Studies [address] [place] [address] 08/08/2024 9:30 AM EST Nurse Only Ancillary [address] [place] [address] [place], Nurse [address] [place] [address] Scheduled Procedures Name Priority Associated Diagnoses Date/Ti me COLONOSCOPY FLEXIBLE PROXIMA L DIAGNOSTIC Recall Special screening for malignant neoplasms, colon 12/31/2023 11:45 AM EDT ESOPHAGOGASTRODUODENOSCOPY ( EGD), FLEXIBLE, TRANSORAL, DIAGNOSTIC Recall Arerola's esophagus with dysplasia Health Maintenance Due Date [...] this encounter Medical Devices Implanted Type Area Media Monitor Device Identifier Shelf Expiration Date Model / Serial / Lot Lens Intraoc 21.0 - [id number] - [id number] Implanted:Qty: 1 on 01/22/2017 by Cheko Mcnamara MD at OR [facility] Right: Eye BAUSCH & LOMB 08/05/2021 [id number] / [id number] / [id number] Lens Intraoc 21.5 - [id number] - [id number] Implanted:Qty: 1 on 02/03/2017 by Cheko Mcnamara MD at OR [facility] Left: Eye BAUSCH & LOMB 09/02/2021 [id number] / [id number] / [id number] documented as of this encounter Advance Directives [...] and were consensually agreed upon. Care Teams Acetylene Gas Compressor Relationship Specialty Start Date End Date Bárbara Rios DO [address] [place] [address] [place] [phone] PCP - General Internal Medicine 08/16/21 documented as of this encounter
--- OUTSIDE RECORDS SUMMARY | 2023-10-20 22:55 | External Medical Summary | Summary of Care ---
Author Name Unknown Organization [facility] Address [address] [facility] [place] [address] Phone [phone] Care Team Providers Care High Lead Yarder Name Role Phone Bárbara Rios Primary Care Provider Reason for Visit * Reason Onset Date Comments [facility]: Acute 08/30/2023 Encounter Details Date Type Department Care Team (Late st Contact Info) Description 08/30/2023 9:30 AM EST Scheduled Telephone [facility], [facility] 132 [facility] [place] [address] [facility], Nurse [facility] 132 [facility] [place] [address] Allergies Active Allergy Reactions Criticality Noted Date Comments Other Allergy (See Comments) Rash Low 10/13/2022 1+ cocamidopropyl betaine Sglt2 Inhibitors Other (Please comment) High 09/04/2020 Genital infection Sulfa Antibiotics Rash 10/15/2016 documented as of this encounter (statuses as of 08/30/2023) Medications Medication Sig Dispensed Refills Start Date [...] 32 UNITS WITH DINNER PLUS CORRECTION PER [facility] OR DIRECTED UP TO [...] a week. 9 mL 3 04/09/2023 Active Jxywh-0-hgqm Ethyl Esters 1 GM Oral Capsule (Lovaza) [...] as of this encounter (statuses as of 08/30/2023) Active Problems Problem Noted Date Diagnosed Date [...] in the Comments) Remote Patient Monitoring Vendor: [employer] Device(s): Connected Scale Self - Management Plan [...] as of this encounter (statuses as of 08/30/2023) Resolved Problems Problem Noted Date Diagnosed Date [...] as of this encounter (statuses as of 08/30/2023) Immunizations Name Administration Dates Next Due COVID-19 mRNA, LNP-s, No Pre serve, 2-Dose Series (Moderna) 12/10/2020,11/12/2020 Hepatitis B, 20+ yrs 01/04/2018,08/03/2017,07/03 Pneumococcal Conjugate Vacci ne, 20-valent ([id number]) 06/09/2022 Pneumococcal Polysaccharide PPV23 (Pneumovax) 03/06/2020 Seasonal [...] encounter Miscellaneous Notes * Telephone Encounter - Tiffanie Mars RN - 08/30/2023 11:47 AM EST Images from the original note were not included. F/U call for weight check. Pt taking torsemide 40 mg in AM and afternoon. Normal dose- 40 mg in AM and 20 mg in afternoon. Pt taking 40 mg 2x/day for the weekend. Call placed to pt. No answer. LM on to return call to [facility] intake w/ update. F/U call added for tomorrow. documented in this encounter Plan of Treatment Upcoming Encounters Date Type Department Care Team (Latest Contact Info) Description 08/31/2023 12:00 PM EST Scheduled Telephone [facility] [place], [facility] 132 [facility] [place] [address] Coordinator, [facility] [address] [place] [address] 09/03/2023 3:00 PM EST Scheduled Telephone [facility], [facility] [address] [facility] [place] [address] Mery Calderon RDN [address] [facility] [place] [address] 09/11/2023 8:30 AM EST [facility] 132 [facility] [place] [address] Love Stevens RN [address] [place] [address] 09/16/2023 11:00 AM EDT Telemedicine Pharmacy, [facility] 200 [facility] [place] [address] Pharmacist1, [facility] 200 [facility] [place] [address] 10/06/2023 2:10 PM EDT Office Visit Family Medicine [address] [place] [phone] Bár[address] R[address] [place] [address] 10/21/2023 2:40 PM EDT Office Visit Nephrology [address] [place] [address] Shivani Magallon MD [address] [place] [address] 10/27/2023 8:30 AM EDT Office Visit Sleep Disorders Ctr [facility] [address] [phone] Lindsey Sheikh CRNP [address] [place] [address] 12/31/2023 11:45 AM EDT Hospital Encounter ENDO [facility], Endoscopy Room [facility] 132 [place] [phone] José Miguel Sifuentes MD [address] [place] [address] 12/31/2023 11:45 AM EDT - 12/31/2023 12:15 PM EDT Surgery ENDO [facility], Endoscopy Room [facility] [address] [place] [place] [phone] José Miguel Sifuentes MD [address] [place] [address] COLONOSCOPY FLEXIBLE PROXIMAL DIAGNOSTIC 01/14/2024 12:30 PM EDT Cardiac Studies Cardiac Studies [address] [place] [address] 08/08/2024 9:30 AM EST Nurse Only Ancillary [address] [place] [address] [place], Nurse Annual [address] [place] [address] Scheduled Procedures Name Priority Associated Diagnoses Date/Ti [...] this encounter Medical Devices Implanted Type Area Waterproof Bag Sewer Device Identifier Shelf Expiration Date Model / Serial / Lot Lens Intraoc 21.0 - [id number] - [id number] Implanted:Qty: 1 on 01/22/2017 by Cheko Mcnamara MD at OR [facility] Right: Eye BAUSCH & LOMB 08/05/2021 [id number] / [id number] / [id number] Lens Intraoc 21.5 - [id number] - [id number] Implanted:Qty: 1 on 02/03/2017 by Cheko Mcnamara MD at OR [facility] Left: Eye BAUSCH & LOMB 09/02/2021 [id number] / [id number] / [id number] documented as of this encounter Advance Directives [...] and were consensually agreed upon. Care Teams High Lead Yarder Relationship Specialty Start Date End Date Bárbara Rios DO [address] [place] [address] [place] [phone] PCP - General Internal Medicine 08/16/21 documented as of this encounter
--- OUTSIDE RECORDS SUMMARY | 2023-10-20 22:55 | External Medical Summary | Summary of Care ---
Author Name Unknown Organization [facility] Address [address] [facility] [place] [address] Phone [phone] Care Team Providers Care Candle Wrapping Machine Operator Name Role Phone Bárbara Rios Primary Care Provider [phone] Reason for Visit * Reason Onset Date Comments Follow Up 08/31/2023 Encounter Details Date Type Department Care Team (Late st Contact Info) Description 08/31/2023 12:00 PM EST Scheduled Telephone [facility], [facility] [email or web address] [place] [address] Coordinator, [facility] [address] [place] [address] Allergies Active Allergy Reactions Criticality Noted Date [...] UNITS WITH DINNER PLUS CORRECTION PER [facility] OR DIRECTED UP TO 120 [...] hemoglobin A1c goal of less than 7.0% ([facility]) USE TO INJECT INSULINS 5 TIMES DAILY 500 Each 3 02/16/2023 Active Semaglutide (2 MG/DOSE) 8 MG/3ML Subcutaneous Solution Pen-injector (Ozempic)Indication s:Type 2 diabetes mellitus with hemoglobin A1c goal of less than 8.0% ([facility]) Inject 2 mg under the skin once a week. 9 mL 3 04/09/2023 Active Jzopt-0-czbj Ethyl Esters 1 GM Oral Capsule (Lovaza) [...] in the Comments) Remote Patient Monitoring Vendor: [employer] Device(s): Connected Scale Self - Management Plan [...] yrs 01/04/2018,08/03/2017,07/03 Pneumococcal Conjugate Vacci ne, 20-valent (Phwefkx25) 06/09/2022 Pneumococcal Polysaccharide PPV23 (Pneumovax) 03/06/2020 Seasonal [...] encounter Miscellaneous Notes * Telephone Encounter - Katherin Parekh RN - 08/31/2023 3:48 PM EST Images from the original note were not included. [facility] Telephonic Nurse Follow-Up Call [facility] Subprogram: Focused Care Management (3-9 months) Follow Up Call Type: Routine follow up call / Status Check Acute issue requiring follow-up call: Other: DTP Objective: 08/26/2023 11:50 AM 08/25/2023 9:08 AM 08/24/2023 2:17 PM 08/21/2023 12:29 PM 08/12/2023 1:40 PM VITALS ACROSS ENCOUNTERS BP 130/70 132/64 124/68 128/60 126/76 Pulse 70 68 80 80 62 Weight 135.6 kg BMI 40.55 kg/m2 Remote Patient Monitoring: [facility] Scale: Oxygen Needs: NO supplemental oxygen needs identified DME Needs: NO DME needs identified Medications: No medication or dose adjustments made during acute episode Subjective: Condition Status: Symptoms resolved and back to baseline Current Concerns: Spoke with Tony, he tells me he is feeling better, SOB has resolved. Weight is down almost 3 lbs from yesterday. He completed DTP, will go for [facility] on Thursday as ordered. He states family was visiting this weekend and he ate some food he shouldn't have prior to weight gain. He will now maintain sodium and fluid restrictions. Patient encouraged to call [facility] intake phone number for all urgent, non-emergent health issues. [facility] contact information provided. Disposition: Issue resolved. All appropriate follow up scheduled. Future Visits Scheduled: Future Appointments-next 60 days Date/Time Provider Specialty Dept Phone 09/03/2023 3:00 PM Mery Calderon RDN [facility] [phone] 09/11/2023 8:30 AM Love Stevens, RN [facility] [phone] 09/16/2023 11:00 AM Pharmacist1, [facility] [phone] 10/06/2023 2:10 PM (Arrive by 1:55 PM) Bárbara Rios DO Family Medicine [phone] 10/21/2023 2:40 PM (Arrive by 2:25 PM) Shivani Magallon MD Nephrology [phone] 10/27/2023 8:30 AM (Arrive by 8:15 AM) Lindsey Sheikh CRNP Sleep Disorders [phone] 01/14/2024 12:30 PM STEAM CONDITIONER FILLING [facility] Cardiac Studies [phone] 08/08/2024 9:30 AM Nurse [facility] Ancillary [phone] Katherin Parekh, ANNE MARIE documented in this encounter Plan of Treatment Upcoming Encounters Date Type Department Care Team (Latest Contact Info) Description 09/03/2023 3:00 PM EST Scheduled Telephone [facility], [facility] [address] [facility] [place] [address] Mery Calderon RDN [address] [facility] [place] [address] 09/11/2023 8:30 AM EST Home Visit [facility], [facility] 132 [facility] [place] [address] Love Stevens, RN 132 [facility] [place] [address] 09/16/2023 11:00 AM EDT Telemedicine Pharmacy, [address] [place] [address] Pharmacist1, [facility] [address] [place] [address] 10/06/2023 2:10 PM EDT Office Visit Family Medicine [address] [place] [phone] Bárbara Rios[address] [place] [address] 10/21/2023 2:40 PM EDT Office Visit Nephrology [address] [place] [address] Shivani Magallon MD [address] [place] [address] 10/27/2023 8:30 AM EDT Office Visit [facility] [address] [place] [phone] Lindsey Sheikh CRNP [address] [place] [address] 12/31/2023 11:45 AM EDT Hospital Encounter ENDO [facility], Endoscopy Room [facility] [address] [place] [phone] José Miguel Sifuentes MD [address] [place] [address] 12/31/2023 11:45 AM EDT - 12/31/2023 12:15 PM EDT Surgery ENDO [facility], Endoscopy Room [facility] [address] [place] [phone] José Miguel Sifuentes MD [address] [place] [address] COLONOSCOPY FLEXIBLE PROXIMAL DIAGNOSTIC 01/14/2024 12:30 PM EDT Cardiac Studies Cardiac Studies [address] [place] [address] 08/08/2024 9:30 AM EST Nurse Only Ancillary [address] [place] [address] [place], Nurse Annual [address] [place] [address] Scheduled Procedures Name Priority Associated Diagnoses Date/Ti [...] this encounter Medical Devices Implanted Type Area Data Analyst Device Identifier Shelf Expiration Date Model / Serial / Lot Lens Intraoc 21.0 - [id number] - [id number] Implanted:Qty: 1 on 01/22/2017 by Cheko Mcnamara MD at OR [facility] Right: Eye BAUSCH & LOMB 08/05/2021 [id number] / [id number] / [id number] Lens Intraoc 21.5 - [id number] - [id number] Implanted:Qty: 1 on 02/03/2017 by Cheko Mcnamara MD at OR [facility] Left: Eye BAUSCH & LOMB 09/02/2021 [id number] / [id number] / [id number] documented as of this encounter Advance Directives [...] and were consensually agreed upon. Care Teams Candle Wrapping Machine Operator Relationship Specialty Start Date End Date Bárbara Rios DO [address] [place] [address] [place] [address] PCP - General Internal Medicine 08/16/21 documented as of this encounter
--- OUTSIDE RECORDS SUMMARY | 2023-10-20 22:55 | External Medical Summary | Summary of Care ---
Author Name Unknown Organization [facility] Address [address] [facility] [place] [address] Phone [phone] Care Team Providers Care Lace Burn Out Tender Name Role Phone Bárbara Rios Primary Care Provider [phone] Reason for Visit * Reason Comments Medication Refill Encounter Details Date Type Department Care Team (Late st Contact Info) Description 08/31/2023 Refill Nephrology, [facility] 200 [facility] [place] [address] Shivani Magallon MD 200 [facility] [place] [address] Hypertensive heart and kidney disease with chronic [...] 32 UNITS WITH DINNER PLUS CORRECTION PER [facility] OR DIRECTED UP TO [...] hemoglobin A1c goal of less than 7.0% ([facility]) USE TO INJECT INSULINS 5 TIMES DAILY 500 Each 3 02/16/2023 Active Semaglutide (2 MG/DOSE) 8 MG/3ML Subcutaneous Solution Pen-injector (Ozempic)Indication s:Type 2 diabetes mellitus with hemoglobin A1c goal of less than 8.0% ([facility]) Inject 2 mg under the skin once a week. 9 mL 3 04/09/2023 Active Jtsqp-0-htzi Ethyl Esters 1 GM Oral Capsule (Lovaza) [...] in the Comments) Remote Patient Monitoring Vendor: [employer] Device(s): Connected Scale Self - Management Plan [...] yrs 01/04/2018,08/03/2017,07/03 Pneumococcal Conjugate Vacci ne, 20-valent (Ogcworx89) 06/09/2022 Pneumococcal Polysaccharide PPV23 (Pneumovax) 03/06/2020 Seasonal [...] encounter Miscellaneous Notes * Telephone Encounter - Leora Retana RN - 08/31/2023 9:20 AM EST Duplicate request * Telephone Encounter - Leora Retana RN - 08/31/2023 9:20 AM ESTRefused Prescriptions: Disp Refills Torsemide 20 MG Oral Tablet (Demadex) 315 Ta*3 Sig: Take 2 tablets in the morning and a third tablet at least 4 hours later; Take extra tablet as needed for weightgain.Refused By: Pooja RETANA for Refusal: Duplicate Request documented in this encounter Plan of Treatment Upcoming Encounters Date Type Department Care Team (Latest Contact Info) Description 08/31/2023 12:00 PM EST Scheduled Telephone [facility], [facility] 132 [place] [address] Coordinator, [facility] 132 [place] [address] 09/03/2023 3:00 PM EST Scheduled Telephone [facility], [place] [address] [address] [facility] [place] [address] Mery Calderon, RDN [address] [facility] [place] [address] 09/11/2023 8:30 AM EST Home Visit [facility], [facility] [address] [place] [address] Love Stevens RN [address] [place] [address] 09/16/2023 11:00 AM EDT Telemedicine Pharmacy, [facility] [address] [place] [address] Pharmacist1, [facility] [address] [place] [address] 10/06/2023 2:10 PM EDT Office Visit Family Medicine [address] [place] [phone] Bárbara Rios[address] [place] [address] 10/21/2023 2:40 PM EDT Office Visit Nephrology [address] [place] [address] Shivani Magallon MD [address] [place] [address] 10/27/2023 8:30 AM EDT Office Visit Sleep Disorders Ctr [facility] [address] [place] [phone] Lindsey Sheikh CRNP [address] [place] [address] 12/31/2023 11:45 AM EDT Hospital Encounter ENDO [facility], Endoscopy Room [facility] [address] [place] [phone] José Miguel Sifuentes MD [address] [place] [address] 12/31/2023 11:45 AM EDT - 12/31/2023 12:15 PM EDT Surgery ENDO [facility], Endoscopy Room [facility] [address] [place] [phone] José Miguel Sifuentes MD [address] [place] [address] COLONOSCOPY FLEXIBLE PROXIMAL DIAGNOSTIC 01/14/2024 12:30 PM EDT Cardiac Studies Cardiac Studies [address] [place] [address] 08/08/2024 9:30 AM EST Nurse Only Ancillary [address] [place] [address] [place], Nurse [address] [place] [address] Scheduled Procedures Name Priority Associated Diagnoses Date/Ti [...] this encounter Medical Devices Implanted Type Area Security Analyst Device Identifier Shelf Expiration Date Model / Serial / Lot Lens Intraoc 21.0 - [id number] - [id number] Implanted:Qty: 1 on 01/22/2017 by Cheko Mcnamara MD at OR [facility] Right: Eye BAUSCH & LOMB 08/05/2021 [id number] / [id number] / [id number] Lens Intraoc 21.5 - [id number] - [id number] Implanted:Qty: 1 on 02/03/2017 by Cheko Mcnamara MD at OR [facility] Left: Eye BAUSCH & LOMB 09/02/2021 [id number] / [id number] / [id number] documented as of this encounter Visit Diagnoses [...] and were consensually agreed upon. Care Teams Lace Burn Out Tender Relationship Specialty Start Date End Date Bárbara Rios DO [address] [place] [address] [place] [phone] PCP - General Internal Medicine 08/16/21 documented as of this encounter
--- OUTSIDE RECORDS SUMMARY | 2023-10-20 22:55 | External Medical Summary | Summary of Care ---
Author Name Unknown Organization [facility] Address [address] [facility] [place] [address] Phone [phone] Care Team Providers Care Bundler Name Role Phone Bárbara Rios Primary Care Provider [phone] Reason for Visit * Reason Onset Date Comments [facility]: Acute 08/30/2023 Encounter Details Date Type Department Care Team (Late st Contact Info) Description 08/30/2023 9:30 AM EST Scheduled Telephone [facility], [facility] 132 [facility] [place] [address] [facility], Nurse [facility] 132 [facility] [place] [address] Allergies Active Allergy Reactions Criticality Noted Date [...] a week. 9 mL 3 3 Active Gzxdl-7-nfwi Ethyl Esters 1 GM Oral Capsule (Lovaza) [...] in the Comments) Remote Patient Monitoring Vendor: [employer] Device(s): Connected Scale Self - Management Plan [...] yrs 01/04/2018,08/03/2017,07/03 Pneumococcal Conjugate Vacci ne, 20-valent (Iazolso74) 06/09/2022 Pneumococcal Polysaccharide PPV23 (Pneumovax) 03/06/2020 Seasonal [...] encounter Miscellaneous Notes * Telephone Encounter - Shivani Magallon MD - 09/03/2023 5:42 PM EST Noted await update on f/u * Telephone Encounter - Tiffanie Mars RN [...] answer. LM on to return call to [facility] intake w/ update. F/U call added for tomorrow. Call placed back to patient. Confirmed name/. Pt reports he went out to celebrate last night- went out for dinner and ate 'munchies." He confirms he overloaded in salt- seafood and lunch meat. Some swelling in ankles. Distended abdomen. Some SOB and chest congestion- worse today. Denies chest pain. Denies dizziness. Did note increased urination yesterday afternoon with additional dose. Secure text sent to Dr. Hill/[facility] for [facility]. Continue w/ DTP, restrict NA/Fluid and PCP f/u. Call placed back to pt. He is aware of above. Pt reports he is well under restrictions today. AwareNCM will route call to nephrology for review. Reinforced restrictions and calling w/ new or worsening symptoms. F/U cll in place for tomorrow. documented in this encounter Plan of Treatment Upcoming Encounters Date Type Department Care Team (Latest Contact Info) Description 09/04/2023 10:15 AM EST Scheduled Telephone [facility], [address] [place] [address] Coordinator, [address] [place] [address] 09/05/2023 9:30 AM EST Scheduled Telephone [facility], [address] [place] [address] Region, Nurse [address] [place] [address] 09/11/2023 8:30 AM EST Home Visit [facility], [address] [place] [address] Love Stevens RN [address] [place], [place] [address] [address] 09/16/2023 11:00 AM EDT Telemedicine Pharmacy, [facility] 200 [facility] [address] Pharmacist1, [facility] 200 [place] [address] 09/29/2023 12:30 PM EDT Scheduled Telephone [facility], [facility] [address] [facility] [place] [address] Mery Calderon RDN [address] [facility] [place] [address] 10/06/2023 2:10 PM EDT Office Visit Family [address] [phone] Bárbara Rios, [address] [place] [address] 10/21/2023 2:40 PM EDT Office Visit Nephrology [address] [place] [address] Shivani Magallon MD [address] [place] [address] 10/27/2023 8:30 AM EDT Office Visit Sleep Disorders Ctr [facility] [address] [place] [phone] Lindsey Sheikh CRNP [address] [place] [address] 12/31/2023 11:45 AM EDT Hospital Encounter ENDO OSS[facility], Endoscopy Room [facility] [address] [place] [phone] José Miguel Sifuentes MD [address] [place] [address] 12/31/2023 11:45 AM EDT - 12/31/2023 12:15 PM EDT Surgery ENDO [facility], Endoscopy Room [facility] [address] [place] [phone] José Miguel Sifuentes MD [address] [place] [address] COLONOSCOPY FLEXIBLE PROXIMAL DIAGNOSTIC 01/14/2024 12:30 PM EDT Cardiac Studies Cardiac Studies [address] [place] [phone] 08/08/2024 9:30 AM EST Nurse Only Ancillary [address] [place] [address] [place], Nurse [address] [place] [address] Scheduled Procedures Name Priority Associated Diagnoses Date/Ti [...] this encounter Medical Devices Implanted Type Area Daycare Provider Device Identifier Shelf Expiration Date Model / Serial / Lot Lens Intraoc 21.0 - [id number] - [id number] Implanted:Qty: 1 on 01/22/2017 by Cheko Mcnamara MD at OR [facility] Right: Eye BAUSCH & LOMB 08/05/2021 [id number] / [id number] / [id number] Lens Intraoc 21.5 - [id number] - [id number] Implanted:Qty: 1 on 02/03/2017 by Cheko Mcnamara MD at OR [facility] Left: Eye BAUSCH & LOMB 09/02/2021 [id number] / [id number] / [id number] documented as of this encounter Advance Directives [...] and were consensually agreed upon. Care Teams Bundler Relationship Specialty Start Date End Date Bárbara Rios DO [address] [place] [address] [place] [address] PCP - General Internal Medicine 08/16/21 documented as of this encounter
--- OUTSIDE RECORDS SUMMARY | 2023-10-20 22:55 | External Medical Summary | Summary of Care ---
Author Name Unknown Organization [facility] Address [address] [facility] [place] [address] Phone [phone] Care Team Providers Care Inpatient Coder Name Role Phone Bárbara Rios Primary Care Provider [phone] Reason for Visit * Reason Onset Date Comments [facility]: Maintenance 09/03/2023 Encounter Details Date Type Department Care Team (Late st Contact Info) Description 09/03/2023 Telephone [facility], [facility] 132 [facility] [place] [address] [facility], Nurse [facility] 132 [facility] [place] [address] [facility]: Maintenance Allergies Active Allergy [...] 32 UNITS WITH DINNER PLUS CORRECTION PER [facility] OR DIRECTED UP TO 120 [...] a week. 9 mL 3 04/09/2023 Active Dqcuq-1-zuul Ethyl Esters 1 GM Oral Capsule (Lovaza) [...] (HCC) 160 mg IV PUSH ONCE 09/03/2023 09/04/2023 Active documented as of this encounter (statuses [...] and RDN Other specified peripheral vascular diseases 01/ Coronary artery calcification seen on CT scan [...] yrs 01/04/2018,08/03/2017,07/03 Pneumococcal Conjugate Vacci ne, 20-valent (Scdwrqp96) 06/09/2022 Pneumococcal Polysaccharide PPV23 (Pneumovax) 03/06/2020 Seasonal [...] Telephone Encounter - Carolina Carey RN - 09/03/2023 4:00 PM EST Phone call from patient returning Mery aClderon's phone call, Teams message sent to lead dental assistant to call patient BULMARO Muñoz Watch Engine Operator [facility] documented in this encounter Plan of Treatment Upcoming Encounters Date Type Department Care Team (Latest Contact Info) Description 09/04/2023 10:15 AM EST Scheduled Telephone [facility], [address] [place] [address] Coordinator, [address] [place] [address] 09/05/2023 9:30 AM EST Scheduled Telephone [facility], [facility] [address] [place] [address] Region, Nurse [address] [place] [address] 09/11/2023 8:30 AM EST Home Visit [facility], [facility] [address] [place] [address] Love Stevens, RN [address] [place] [address] 09/16/2023 11:00 AM EDT Telemedicine Pharmacy, [facility] [place] 200 [facility] [place] [address] Pharmacist1, [facility] 200 [facility] [place] [address] 09/29/2023 12:30 PM EDT Scheduled Telephone [facility], [facility] [address] [facility] [place] [address] Mery Calderon RDN [address] [facility] [place] [address] 10/06/2023 2:10 PM EDT Office Visit Family Medicine [address] [phone] Bárbara Rios[address] [place] [address] 10/21/2023 2:40 PM EDT Office Visit Nephrology [address] [place] [address] Shivani Magallon MD [address] [place] [address] 10/27/2023 8:30 AM EDT Office Visit [facility] Disorders Ctr [facility] [place] 132 [place] [phone] Lindsey Sheikh CRNP [address] [place] [address] 12/31/2023 11:45 AM EDT Hospital Encounter ENDO OSS[facility], Endoscopy Room [facility] [address] [place] [phone] José Miguel Sifuentes MD [address] [place] [address] 12/31/2023 11:45 AM EDT - 12/31/2023 12:15 PM EDT Surgery ENDO [facility], Endoscopy Room [facility] [address] [place] [phone] José Miguel Sifuentes MD [address] [place] [address] COLONOSCOPY FLEXIBLE PROXIMAL DIAGNOSTIC 01/14/2024 12:30 PM EDT Cardiac Studies Cardiac Studies [address] [place] [address] 08/08/2024 9:30 AM EST Nurse Only Ancillary [address] [place] [address] [place], Nurse Annual [address] [place] [address] Scheduled Procedures Name Priority Associated Diagnoses Date/Ti [...] this encounter Medical Devices Implanted Type Area Salt Grinder Device Identifier Shelf Expiration Date Model / Serial / Lot Lens Intraoc 21.0 - [id number] - [id number] Implanted:Qty: 1 on 01/22/2017 by Cheko Mcnamara MD at OR [facility] Right: Eye BAUSCH & LOMB 08/05/2021 [id number] / [id number] / [id number] Lens Intraoc 21.5 - [id number] - [id number] Implanted:Qty: 1 on 02/03/2017 by Cheko Mcnamara MD at OR [facility] Left: Eye BAUSCH & LOMB 09/02/2021 [id number] / [id number] / [id number] documented as of this encounter Advance Directives [...] and were consensually agreed upon. Care Teams Inpatient Coder Relationship Specialty Start Date End Date Bárbara Rois DO [address] [place] [address] [place] [phone] PCP - General Internal Medicine 08/16/21 documented as of this encounter
--- OUTSIDE RECORDS SUMMARY | 2023-10-20 22:55 | External Medical Summary ---
Author Name Unknown Address Unknown Organization K01:LABOR[facility]ORY [facility] - [address] [place]rie [place] [address] Laboratory Report Ordering Provider Test Date Status ESTIVEN PEREZ 09/02/2023 13:20:34 Final Observation Date Value Abnormality Reference (Units ) Status MYCODE SPECIMEN-SST 09/02/2023 13:20:34 Freezing of extracted DNA, whole blood and/or serum. Final Performing Location LABORATORY C - [address] [place] [address]
--- OUTSIDE RECORDS SUMMARY | 2023-10-20 22:55 | External Medical Summary | Summary of Care ---
Author Name Unknown Organization [facility] Address [address] [facility] [place] [address] Phone [phone] Care Team Providers Care Stable Hand Name Role Phone Bárbara Rios Primary Care Provider [phone] Reason for Visit * Reason Onset Date Comments Medication Refill 08/31/2023 Encounter Details Date Type Department Care Team (Late st Contact Info) Description 08/31/2023 Telephone [facility], [facility] [address] [facility] [place] [address] Elis Mulligan DO [address] [facility] [place] [address] Medication Refill Allergies Active Allergy Reactions Criticality [...] 32 UNITS WITH DINNER PLUS CORRECTION PER [facility] OR DIRECTED UP TO [...] hemoglobin A1c goal of less than 7.0% ([facility]) USE TO INJECT INSULINS 5 TIMES DAILY 500 Each 3 02/16/2023 Active Semaglutide (2 MG/DOSE) 8 MG/3ML Subcutaneous Solution Pen-injector (Ozempic)Indication s:Type 2 diabetes mellitus with hemoglobin A1c goal of less than 8.0% ([facility]) Inject 2 mg under the skin once a week. 9 mL 3 04/09/2023 Active Kkfsp-7-qqeh Ethyl Esters 1 GM Oral Capsule (Lovaza) [...] in the Comments) Remote Patient Monitoring Vendor: [employer] Device(s): Connected Scale Self - Management [...] Continues on lovaza 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 repKambita History of tobacco use 08/18/2017 CHAPINCITO on [...] yrs 01/04/2018,08/03/2017,07/03 Pneumococcal Conjugate Vacci ne, 20-valent ([id number]) 06/09/2022 Pneumococcal Polysaccharide PPV23 (Pneumovax) 03/06/2020 Seasonal [...] to ordering provider Violette Moser RN, [facility] Intake Triage Coordinator [phone] * Telephone Encounter - Peri Lopez CPhT [...] if appropriate. Thank you, Peri Lopez CPhT Paint Tester [facility] ([facility]) (Formerly Telepharmacy) 08/31/2023, 2:23 PM documented in this encounter Plan of Treatment Upcoming Encounters Date Type Department Care Team (Latest Contact Info) Description 09/03/2023 3:00 PM EST Scheduled Telephone [facility], [facility] [address] [facility] [place] [address] Mery Calderon RDN [address] [facility] [place] [address] 09/11/2023 8:30 AM EST Home Visit [facility], [facility] 132 [place] [address] Love Stevens RN 132 [place] [address] 09/16/2023 11:00 AM EDT Telemedicine Pharmacy, [facility] 200 [facility] [place] [address] Pharmacist1, [facility] 200 [facility] [place] [address] 10/06/2023 2:10 PM EDT Office Visit Family Medicine [address] [place] [phone] Bárbara Rios[address] [place] [address] 10/21/2023 2:40 PM EDT Office Visit Nephrology [address] [place] [address] Shivani Magallon MD [address] [place] [address] 10/27/2023 8:30 AM EDT Office Visit Sleep Disorders Ctr [facility] 132 [place] [phone] Lindsey Sheikh CRNP 132 [place] [address] 12/31/2023 11:45 AM EDT Hospital Encounter ENDO [facility], Endoscopy Room [facility] 132 [place] [phone] José Miguel Sifuentes MD 132 [place] [address] 12/31/2023 11:45 AM EDT - 12/31/2023 12:15 PM EDT Surgery ENDO [facility], Endoscopy Room [facility] [address] [place] [phone] José Miguel Sifuentes MD [address] [place] [address] COLONOSCOPY FLEXIBLE PROXIMAL DIAGNOSTIC 01/14/2024 12:30 PM EDT Cardiac Studies Cardiac Studies [address] [place] [address] 08/08/2024 9:30 AM EST Nurse Only Ancillary [address] [place] [address] [place], Nurse [address] [place] [address] Scheduled Procedures Name Priority Associated Diagnoses Date/Ti [...] this encounter Medical Devices Implanted Type Area Ibm Websphere Commerce Consultant Device Identifier Shelf Expiration Date Model / Serial / Lot Lens Intraoc 21.0 - [id number] - [id number] Implanted:Qty: 1 on 01/22/2017 by Cheko Mcnamara MD at OR [facility] Right: Eye BAUSCH [employer] LOMB 08/05/2021 [id number] / [id number] / [id number] Lens Intraoc 21.5 - [id number] - [id number] Implanted:Qty: 1 on 02/03/2017 by Cheko Mcnamara MD at OR [facility] Left: Eye BAUSCH [employer] LOMB 09/02/2021 [id number] / [id number] / [id number] documented as of this encounter Visit Diagnoses [...] and were consensually agreed upon. Care Teams Stable Hand Relationship Specialty Start Date End Date Bárbara Rios DO [address] [place] [address] [place] [phone] PCP - General Internal Medicine 08/16/21 documented as of this encounter
--- OUTSIDE RECORDS SUMMARY | 2023-10-20 22:55 | External Medical Summary | Summary of Care ---
Author Name Unknown Organization [facility] Address [address] [facility] [place] [address] Phone [phone] Care Team Providers Care Head Of Talent Management Name Role Phone Bárbara Rios Primary Care Provider [phone] Reason for Visit * Reason Onset Date Comments [facility]: Acute 08/30/2023 Encounter Details Date Type Department Care Team (Late st Contact Info) Description 08/30/2023 9:30 AM EST Scheduled Telephone [facility], [facility] 132 [facility] [place] [address] [facility], Nurse [facility] 132 [facility] [place] [address] Allergies Active Allergy Reactions Criticality Noted Date [...] a week. 9 mL 3 04/09/2023 Active Nkckr-8-avbr Ethyl Esters 1 GM Oral Capsule (Lovaza) [...] in the Comments) Remote Patient Monitoring Vendor: [employer] Device(s): Connected Scale Self - Management Plan [...] yrs 01/04/2018,08/03/2017,07/03 Pneumococcal Conjugate Vacci ne, 20-valent ([id number]) 06/09/2022 Pneumococcal Polysaccharide PPV23 (Pneumovax) 03/06/2020 Seasonal [...] answer. LM on to return call to [facility] intake w/ update. F/U call added [...] additional dose. Secure text sent to Dr. Hill[facility] for [facility]. Continue w/ DTP, restrict NA/Fluid and [...] PM EST Scheduled Telephone [facility], [facility] 132 [facility] [place] [address] Coordinator, [facility] [place] [address] 09/03/2023 3:00 PM EST Scheduled Telephone [facility], [facility] [address] [facility] [place] [address] Mery Calderon RDN [address] [facility] [place] [address] 09/11/2023 8:30 AM EST Home Visit [facility], [facility] [address] [place] [address] Love Stevens, ANNE MARIE 132 [facility] [place] [address] 09/16/2023 11:00 AM EDT Telemedicine Pharmacy, [facility] 200 [facility] [place] [address] Pharmacist1, [facility] 200 [facility] [place] [address] 10/06/2023 2:10 PM EDT Office Visit Family Medicine [address] [place] [phone] Bárbara Rios[address] [place] [address] 10/21/2023 2:40 PM EDT Office Visit Nephrology [address] [place] [address] Shivani Magallon MD 200 [facility] [place] [address] 10/27/2023 8:30 AM EDT Office Visit Sleep Disorders Ctr [facility] 132 [facility] [place] [phone] Lindsey Sheikh CRNP [address] [place] [address] 12/31/2023 11:45 AM EDT Hospital Encounter ENDO [facility], Endoscopy Room [facility] [address] [place] [phone] José Miguel Sifuentes MD [address] [place] [address] 12/31/2023 11:45 AM EDT - 12/31/2023 12:15 PM EDT Surgery ENDO [facility], Endoscopy Room [facility] [address] [place] [phone] José Miguel Sifuentes MD [address] [place] [address] COLONOSCOPY FLEXIBLE PROXIMAL DIAGNOSTIC 01/14/2024 12:30 PM EDT Cardiac Studies Cardiac Studies [address] [place] [address] 08/08/2024 9:30 AM EST Nurse Only Ancillary [address] [place] [address] [place], Nurse Annual [address] [place] [address] Scheduled Procedures Name Priority Associated Diagnoses Date/Ti [...] this encounter Medical Devices Implanted Type Area Jacquard Twine Polisher Operator Device Identifier Shelf Expiration Date Model / Serial / Lot Lens Intraoc 21.0 - [id number] - [id number] Implanted:Qty: 1 on 01/22/2017 by Cheko Mcnamara MD at OR [facility] Right: Eye [employer]USCH [employer] LOMB 08/05/2021 [id number] / [id number] / [id number] Lens Intraoc 21.5 - [id number] - [id number] Implanted:Qty: 1 on 02/03/2017 by Cheko Mcnamara MD at OR [facility] Left: Eye BAUSCH & LOMB 09/02/2021 [id number] / [id number] / [id number] documented as of this encounter Advance Directives [...] and were consensually agreed upon. Care Teams Head Of Talent Management Relationship Specialty Start Date End Date Bárbara Rios DO [address] [place] [address] [place] [address] PCP - General Internal Medicine 08/16/21 documented as of this encounter
--- OUTSIDE RECORDS SUMMARY | 2023-10-20 22:55 | External Medical Summary | Summary of Care ---
Author Name Unknown Organization [facility] Address [address] [facility] [place] [address] Phone [phone] Care Team Providers Care Hog Pusher Name Role Phone Bárbara Rios Primary Care Provider [phone] Reason for Visit * Reason Onset Date Comments [facility]: Maintenance 08/28/2023 Encounter Details Date Type Department Care Team (Late st Contact Info) Description 08/28/2023 9:45 AM EST Scheduled Telephone [facility], [facility] [address] [place] [address] Coordinator, [facility] [address] [place] [address] Allergies Active Allergy Reactions Criticality Noted Date Comments Other Allergy (See Comments) Rash Low 10/13/2022 1+ cocamidopropyl betaine Sglt2 Inhibitors Other (Please comment) High 09/04/2020 Genital infection Sulfa Antibiotics Rash 10/15/2016 documented as of this encounter (statuses as of 08/28/2023) Medications Medication Sig Dispensed Refills Start Date [...] 32 UNITS WITH DINNER PLUS CORRECTION PER [facility] OR DIRECTED UP TO 120 [...] a week. 9 mL 3 04/09/2023 Active Khzsd-1-wxiw Ethyl Esters 1 GM Oral Capsule (Lovaza) [...] as of this encounter (statuses as of 08/28/2023) Active Problems Problem Noted Date Diagnosed Date [...] in the Comments) Remote Patient Monitoring Vendor: [employer] Device(s): Connected Scale Self - Management Plan [...] as of this encounter (statuses as of 08/28/2023) Resolved Problems Problem Noted Date Diagnosed Date [...] as of this encounter (statuses as of 08/28/2023) Immunizations Name Administration Dates Next Due COVID-19 mRNA, LNP-s, No Pre serve, 2-Dose Series (Moderna) 12/10/2020,11/12/2020 Hepatitis B, 20+ yrs 01/04/2018,08/03/2017,07/03 Pneumococcal Conjugate Vacci ne, 20-valent ([id number]) 06/09/2022 Pneumococcal Polysaccharide PPV23 (Pneumovax) 03/06/2020 Seasonal [...] Telephone Encounter - Carolina Carey RN - 08/28/2023 2:14 PM EST Phone call to patient to make him aware of [facility] recommendations, phone calls scheduled for the weekend, verbalized understanding. BULMARO Muñoz Lay Health Advocate [facility] * Telephone Encounter - Wilfredo Mulligan DO - 08/28/2023 1:43 PM EST [facility] Remote Medical Command [facility] Subprogram: Focused Care Management (3-9 months) Recommendations: I would recommend him do Torsemide 40mg BID through the weekend. If wt improves and symptoms improve we may want to consider this as his chronic dose Orders: No orders of the defined types were placed in this encounter. To Do: Please see below for follow up items to be completed and correspondence: JOSE ALFREDO to Tony's Care Team orthopedic brace maker Pool please work on the following: contact the caller with advice and orders as above Wilfredo Mulligan DO Remote Medical Command - [facility] 08/28/2023 Scheduled appointments in the next 60 days: Future Appointments-next 60 days Date/Time Provider Specialty Dept Phone 08/29/2023 9:30 AM [facility], Nurse Morales [facility] [phone] 08/30/2023 9:30 AM [facility], Nurse [place] [place] [facility] [phone] 09/03/2023 3:00 PM Mery Calderon RDN [facility] [phone] 09/11/2023 8:30 AM Love Stevens, ANNE MARIE [facility] [phone] 09/16/2023 11:00 AM [place] [address], [facility] [phone] 10/06/2023 2:10 PM (Arrive by 1:55 PM) Bárbara Rios DO Family Medicine [phone] 10/21/2023 2:40 PM (Arrive by 2:25 PM) Shivani Magallon MD Nephrology [phone] 10/27/2023 8:30 AM (Arrive by 8:15 AM) Lindsey Sheikh CRNP Sleep Disorders [phone] 01/14/2024 12:30 PM TABULAR TYPIST [facility] Cardiac Studies [phone] 08/08/2024 9:30 AM Nurse [facility] Ancillary [phone] * Telephone Encounter - Carolina Carey RN - 08/28/2023 9:08 AM EST Images from the original note were not included. [facility] Telephonic Nurse Follow-Up Call [facility] Subprogram: Focused Care Management (3-9 months) Follow Up Call Type: Routine follow up call / Status Check Acute issue requiring follow-up call: Heart Failure Exacerbation weight gain, 3 days of HV's with RNCM.. IV lasix Objective: 08/26/2023 11:50 AM 08/25/2023 9:08 AM 08/24/2023 2:17 PM 08/21/2023 12:29 PM 08/12/2023 1:40 PM VITALS ACROSS ENCOUNTERS BP 130/70 132/64 124/68 128/60 126/76 Pulse 70 68 80 80 62 Weight 135.6 kg BMI 40.55 kg/m2 Lab Results Component Value Date BLOOD, URINE - [facility] Negative 06/11/2023 PROTEIN - [facility] 6.9 08/24/2023 PROTEIN, URINE - [facility] 30 (A) 06/11/2023 ESTERASE, URINE - [facility] Negative 06/11/2023 WBC AUTO - [facility] 7.05 08/24/2023 WBC, URINE - [facility] 0-2 06/11/2023 NITRITE, URINE - [facility] Negative 06/11/2023 Lab Results Component Value Date WBC AUTO - [facility] 7.05 08/24/2023 HGB - [facility] 12.0 (L) 08/24/2023 PLATELET AUTO - [facility] 157 08/24/2023 Lab Results Component Value Date SODIUM - [facility] 139 08/24/2023 POTASSIUM - [facility] 4.1 08/24/2023 CO2 - [facility] 23 08/24/2023 CREATININE - [facility] 2.5 (H) 08/24/2023 ESTIMATED GLOMERULAR FILTRATION RATE - [facility] 29 (L) 08/24/2023 ALBUMIN - [facility] 3.8 08/24/2023 AST - [facility] 61 (H) 08/24/2023 ALT - [facility] 79 (H) 08/24/2023 ALKALINE PHOSPHATASE - [facility] 87 08/24/2023 No results found for: "PRO BNP", "LEFT VENTRICULAR EJECTION FRACTION" Remote Patient Monitoring: [facility] Scale: 292.2 lbs Oxygen Needs NO supplemental oxygen needs identified DME Needs: NO DME needs identified Medications: New medication(s) added: Took extra Torsemide 40mg on 08/26 Subjective: Condition Status: No change in symptoms Current Concerns: Spoke with Tony, states SOB is the same as yesterday, still slightly SOB, slight cough/congestion, +abdominal bloating, some pitting edema to BLE's. Admits to following a EDWIN diet is eating less [id number] of sodium, follows his fluid restriction, 60 ounces a day. BS this morning 7 day avg. was 167 Patient instructed to keep a food journal of everything he is eating and drinking 08/24 and 08/25 got IV Lasix 120mg, 08/26/23 took an extra Lasix 20mg in the PM total 40mg in PM 08/27/23 took normal dose of Torsemide 40mg AM, 20mg PM Disposition: Routed to [facility] and/or [facility] at Home Care Team for further advice and Follow up call scheduled for tomorrow with ROSCOE AldanaDirector Data Future Visits Scheduled: Future Appointments-next 60 days Date/Time Provider Specialty Dept Phone 08/28/2023 9:45 AM CoordinatorMorales [facility] [phone] 09/03/2023 3:00 PM Mery Calderon RDN [facility] [phone] 09/11/2023 8:30 AM Love Stevens, RN [facility] [phone] 09/16/2023 11:00 AM Pharmacist1, [facility] [phone] 10/06/2023 2:10 PM (Arrive by 1:55 PM) Bárbara Rios, Family Medicine [phone] 10/21/2023 2:40 PM (Arrive by 2:25 PM) Shivani Magallon MD Nephrology [phone] 10/27/2023 8:30 AM (Arrive by 8:15 AM) Lindsey Sheikh CRNP Sleep Disorders [phone] 01/14/2024 12:30 PM [facility] Cardiac Studies [phone] 08/08/2024 9:30 AM Nurse [facility] Ancillary [phone] Carolina Carey, RN documented in this encounter Plan of Treatment Upcoming Encounters Date Type Department Care Team (Latest Contact Info) Description 08/29/2023 9:30 AM EST Scheduled Telephone [facility], [facility] [address] [place] [address] [facility], Nurse [place] [address] 08/30/2023 9:30 AM EST Scheduled Telephone [facility], [facility] [address] [place] [address] [facility], Nurse [place] [address] 09/03/2023 3:00 PM EST Scheduled Telephone [facility], [facility] [address] [facility] [place] [address] Mery Calderon, RDN [address] [facility] [place] [address] 09/11/2023 8:30 AM EST Home Visit [facility], [facility] [address] [place] [address] Love Stevens RN 132 [facility] [place] [address] 09/16/2023 11:00 AM EDT Telemedicine Pharmacy, [facility] 200 [facility] [place] [address] Pharmacist1, [facility] 200 [facility] [place] [address] 10/06/2023 2:10 PM EDT Office Visit Family Medicine [address] [phone] [address] [place] [address] 10/21/2023 2:40 PM EDT Office Visit Nephrology [address] [place] [address] Shivani Magallon MD 200 [facility] [place] [address] 10/27/2023 8:30 AM EDT Office Visit Sleep Disorders Ctr [facility] [address] [place] [phone] Lindsey Sheikh CRNP 132 [facility] [place] [address] 12/31/2023 11:45 AM EDT Hospital Encounter ENDO [facility], Endoscopy Room [facility] [address] [place] [phone] José Miguel Sifuentes MD [address] [place] [address] 12/31/2023 11:45 AM EDT - 12/31/2023 12:15 PM EDT [facility] [address] [place] [phone] José Miguel Sifuentes MD [address] [place] [address] COLONOSCOPY FLEXIBLE PROXIMAL DIAGNOSTIC 01/14/2024 12:30 PM EDT Cardiac Studies Cardiac Studies [address] [place] [address] 08/08/2024 9:30 AM EST Nurse Only Ancillary [address] [place] [address] [place], Nurse Annual [address] [place] [address] Scheduled Procedures Name Priority Associated Diagnoses Date/Ti [...] this encounter Medical Devices Implanted Type Area Tours Hostess Device Identifier Shelf Expiration Date Model / Serial / Lot Lens Intraoc 21.0 - [id number] - [id number] Implanted:Qty: 1 on 01/22/2017 by Cheko Mcnamara MD at OR [facility] Right: Eye [employer]OMB 08/05/2021 [id number] / [id number] / [id number] Lens Intraoc 21.5 - [id number] - [id number] Implanted:Qty: 1 on 02/03/2017 by Cheko Mcnamara MD at OR [facility] Left: Eye [employer]USCH [employer] LOMB 09/02/2021 [id number] / [id number] / [id number] documented as of this encounter Advance Directives [...] and were consensually agreed upon. Care Teams Hog Pusher Relationship Specialty Start Date End Date Bárbara Rios DO [address] [place] [address] [place] [address] PCP - General Internal Medicine 08/16/21 documented as of this encounter
--- OUTSIDE RECORDS SUMMARY | 2023-10-20 22:55 | External Medical Summary | Summary of Care ---
Author Name Unknown Organization [facility] Address [address] [place] [address] Phone [phone] Care Team Providers Care Monotype Machinist Name Role Phone Bárbara Rios Primary Care Provider [phone] Reason for Visit * Reason Onset Date Comments Follow Up 08/31/2023 Encounter Details Date Type Department Care Team (Late st Contact Info) Description 08/31/2023 Telephone [facility], [facility] [address] [place] [address] Love Stevens RN [address] [place] [address] Follow Up Allergies Active Allergy Reactions Criticality [...] a week. 9 mL 3 04/09/2023 Active [id number] Ethyl Esters 1 GM Oral Capsule (Lovaza) [...] in the Comments) Remote Patient Monitoring Vendor: [employer] Device(s): Connected Scale Self - Management Plan [...] yrs 01/04/2018,08/03/2017,07/03 Pneumococcal Conjugate Vacci ne, 20-valent ([id number]) 06/09/2022 Pneumococcal Polysaccharide PPV23 (Pneumovax) 03/06/2020 Seasonal [...] Telephone Encounter - Love Stevens RN - 08/31/2023 10:01 AM EST Recent IV diuretics 08/24, 08/25 Increase of afternoon dose of Torsemide(40mg am and 40mg pm)- 08/26, 08/29, 08/30, 08/31 Recheck BMP Thursday. Patient aware and will go to lab. documented in this encounter Plan of Treatment Upcoming Encounters Date Type Department Care Team (Latest Contact Info) Description 08/31/2023 12:00 PM EST Scheduled Telephone [facility], [facility] [address] [facility] [place] [address] Coordinator, [employer] [facility] [address] [facility] [place] [address] 09/03/2023 3:00 PM EST Scheduled Telephone [facility], [facility] [address] [facility] [address] Mery Calderon RDN [address] [facility] [place] [address] 09/11/2023 8:30 AM EST Home Visit [facility] [place], [facility] [address] [facility] [place] [address] Love Stevens RN [address] [place] [address] 09/16/2023 11:00 AM EDT Telemedicine Pharmacy, [facility] [place] [address] [place] [address] Pharmacist1, [facility] [address] [place] [address] 10/06/2023 2:10 PM EDT Office Visit Family Medicine [address] [place] [phone] Bárbara Rios[address] [place] [address] 10/21/2023 2:40 PM EDT Office Visit Nephrology [address] [place] [address] Shivani Magallon MD [address] [place] [address] 10/27/2023 8:30 AM EDT Office Visit Sleep Disorders Ctr [facility] [place] [address] [place] [phone] Lindsey Sheikh CRNP [address] [place] [address] 12/31/2023 11:45 AM EDT Hospital Encounter ENDO [facility], Endoscopy Room [facility] [address] [place] [phone] José Miguel Sifuentes MD [address] [place] [address] 12/31/2023 11:45 AM EDT - 12/31/2023 12:15 PM EDT Surgery ENDO [facility], Endoscopy Room [facility] [address] [place] [phone] José Miguel Sifuentes MD [address] [place] [address] COLONOSCOPY FLEXIBLE PROXIMAL DIAGNOSTIC 01/14/2024 12:30 PM EDT Cardiac Studies Cardiac Studies [address] [place] [address] 08/08/2024 9:30 AM EST Nurse Only Ancillary [address] [place] [address] [place], Nurse Annual [address] [place] [address] Scheduled Orders Name Type Priority Associated Diagnoses Orde r Schedule BASIC METABOLIC PANEL Lab Routine Chronic heart failure with preserved ejection fraction (HCC) Expected: 08/31/2023 (Approximate), Expires: 08/30/2024 Scheduled Procedures Name Priority Associated Diagnoses Date/Ti [...] this encounter Medical Devices Implanted Type Area Engineer Chief Device Identifier Shelf Expiration Date Model / Serial / Lot Lens Intraoc 21.0 - [id number] - [id number] Implanted:Qty: 1 on 01/22/2017 by Cheko Mcnamara MD at OR [facility] Right: Eye [employer] 08/05/2021 [id number] / [id number] / [id number] Lens Intraoc 21.5 - [id number] - [id number] Implanted:Qty: 1 on 02/03/2017 by Cheko Mcnamara MD at OR [facility] Left: Eye [employer] 09/02/2021 [id number] / [id number] / [id number] documented as of this encounter Visit Diagnoses Diagnosis Chronic heart failure with preserved ejection fraction (HCC)- Primary Special screening for malignant neoplasms, [...] and were consensually agreed upon. Care Teams Monotype Machinist Relationship Specialty Start Date End Date Bárbara Rios DO [address] [place] [address] [place] [address] PCP - General Internal Medicine 08/16/21 documented as of this encounter
--- OUTSIDE RECORDS SUMMARY | 2023-10-20 22:56 | External Medical Summary | Summary of Care ---
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 9 mL 3 04/09/2023 Active [id number] Ethyl Esters 1 GM Oral Capsule (Lovaza) [...] 08/12/2023 Active Torsemide 20 MG Oral Tablet (Demadex)Indicatio ns:Hypertensive 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 (HCC) Take 2 tablets in the morning and a third tablet at least 4 hours later; Take extra tablet as needed for weight gain. 315 Tablet 3 03/17/2023 4 Discontinu ed(Refill) Hospital, Clinic, or Other Facility Administered Medication Ordered Dose Route Frequency Start Date End Date Status Albuterol Sulfate (Proventil) (5 MG/ML) 0.5% *conc* inhalation solution 2.5 mgIndications:Dyspnea and respiratory abnormalities 2.5 mg NEBULIZER PRN 11/20/2022 11/20/2023 Active Albuterol Sulfate (Proventil) (2.5 MG/3ML) 0.083% inhalation solution 2.5 mgIndications:Dyspnea and respiratory abnormalities 2.5 mg NEBULIZER PRN 11/20/2022 11/20/2023 Active Furosemide (Lasix) inj 120 mgIndications:Hypertens slim 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 chronic kidney disease (HCC) 120 mg IV PUSH ONCE 08/24/2023 08/25/2023 Ended potassium chloride ER tab 40 mEqIndications:Hyperten sive 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 chronic kidney disease (HCC) 40 mEq OR ONCE 08/24/2023 08/25/2023 Ended documented as of this encounter (statuses as of 08/25/2023) Active Problems Problem Noted Date Diagnosed Date [...] in the Comments) [place] Vendor[place] [facility] [place]s): Connected [...] 08/18/2017 Last Assessment & Plan: Continues on MMITaza 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 repatha History of [...] as of this encounter (statuses as of 08/25/2023) Resolved Problems Problem Noted Date Diagnosed Date [...] as of this encounter (statuses as of 08/25/2023) Immunizations Name Administration Dates Next Due COVID-19 mRNA, LNP-s, No Pre serve, 2-Dose Series (Moderna) 12/10/2020,11/12/2020 Hepatitis B, 20+ yrs 01/04/2018,08/03/2017,07/03 Pneumococcal Conjugate Vacci ne, 20-valent ([id number]) 06/09/2022 Pneumococcal Polysaccharide PPV23 (Pneumovax) 03/06/2020 Seasonal [...] Sign Reading Time Taken Comments Blood Pressure 124/68 08/24/2023 2:17 PM EST Pulse 80 08/24/2023 2:17 PM EST Temperature 36.3 C (97.4 F) 08/24/2023 2:17 PM ES T Respiratory Rate 18 08/24/2023 2:17 PM EST Oxygen Saturation 95% 08/24/2023 2:17 PM EST Inhaled Oxygen Concentration - - Weight - - Height - - Body Mass Index - - documented in this encounter Progress Notes * Love Stevens RN - 08/24/2023 1:27 PM EST Images from the original note were not included. [facility] Time [employer]erW[employer] Director Visit Date: 08/24/2023 Time: 1:27 PM Name: Tony Delong : 1960 Current Concerns: Patient seen for acute visit- patient called in reporting increased sob, +abdominal distension. Completed DTP yesterday- ineffective. Increase weight- 2lb/24 hr VS wnl Lungs clear but diminished No LE edema Voiding without difficulty Bowels wnl- per report Appetite good Fluid restriction TT Dr. Nate Lasix 120mg IV now- leave IV in place KCL 40meq today CBC, CMP Return visit tomorrow. Problems/Symptoms: Review of Systems Constitutional: Positive for fatigue. HENT: Negative. Respiratory: Positive for shortness of breath. Cardiovascular: Negative. Gastrointestinal: Positive for abdominal distention. Genitourinary: Negative. Musculoskeletal: Negative. Neurological: Negative. Hematological: Negative. Psychiatric/Behavioral: Negative. Physical Exam: BP 124/68 (BP Site: Left Arm, BP Position: Sitting, BP Cuff Size: Regular) | Pulse 80 | Temp 36.3 C (97.4 F) (Tympanic) | Resp 18 | SpO2 95% Pain 0 Physical Exam Constitutional: Appearance: Normal appearance. Cardiovascular: Rate and Rhythm: Normal rate and regular rhythm. Pulses: Normal pulses. Pulmonary: Effort: Pulmonary effort is normal. Breath sounds: Normal breath sounds. Abdominal: General: Bowel sounds are normal. There is distension. Palpations: Abdomen is soft. Musculoskeletal: General: Normal range of motion. Skin: General: Skin is warm and dry. Capillary Refill: Capillary refill takes 2 to 3 seconds. Neurological: General: No focal deficit present. Mental Status: He is alert. Psychiatric: Mood and Affect: Mood normal. Behavior: Behavior normal. [facility] Completed this Visit: No. Routine visit Treatment/Plan: IV lasix 120mg now- IV 22g placed left FA. Left in place per request of [facility] PO KCL 40 meq today Labs to [facility] Low na diet Elevate ble- prn edema [facility] scale- weigh daily Fluid restriction RN CM follow up tomorrow. Home Interventions Provided: IV Interventions: Diuretic Labs/Specimen Collection Performed CBC, CMP Lab/Imaging Ordered CBC, CMP Consulted PCP/Specialist Reinforced current Plan of Care, including self-management and medication regimen Patient Needs to Remember: Call [facility] with any medical concerns/ red flags Referrals Needed: N/a Follow Up: Is there cellular connectivity/connectivity in the home? Yes Does the patient have internet in the home? Yes Patient encouraged to call the intake phone number for all urgent but not emergent issues. Scheduled to follow up with patient in 1 day. Love Du RN 08/24/2023 1:27 PM documented in this encounter Plan of Treatment Upcoming Encounters Date Type Department Care Team (Latest Contact Info) Description 08/26/2023 9:15 AM EST Scheduled Telephone [facility], [facility] [address] [facility] [place] [address] Coordinator, [facility] [address] [facility] [place] [address] 09/03/2023 3:00 PM EST Scheduled Telephone [facility], [facility] [address] [facility] [place] [address] Mery Calderon RDN [address] [facility] [place] [address] 09/11/2023 8:30 AM EST Home Visit [facility], [facility] [address] [facility] [place] [phone] Love Stevens, ANNE MARIE [address] [facility] [place] [address] 09/16/2023 11:00 AM EDT Telemedicine Pharmacy, [facility] [address] [facility] [place] [address] Pharmacist1, [facility] [address] [facility] [place] [address] 10/06/2023 2:10 PM EDT Office Visit Family Medicine [address] [place] [phone] Bárbara Rios[address] [place] [address] 10/21/2023 2:40 PM EDT Office Visit Nephrology [address] [place] [address] Shivani Magallon MD [address] [facility] [place] [address] 10/27/2023 8:30 AM EDT Office Visit Sleep Disorders Ctr [facility] [address] [place] [phone] Lindsey Sheikh CRNP [address] [place] [address] 12/31/2023 11:45 AM EDT Hospital Encounter ENDO [facility], Endoscopy Room [facility] [address] [place] [phone] José Miguel Sifuentes MD [address] [place] [address] 12/31/2023 11:45 AM EDT - 12/31/2023 12:15 PM EDT Surgery ENDO [facility], Endoscopy Room [facility] [address] [place] [phone] José Miguel Sifuentes MD [address] [place] [address] COLONOSCOPY FLEXIBLE PROXIMAL DIAGNOSTIC 01/14/2024 12:30 PM EDT Cardiac Studies Cardiac Studies [address] [place] [address] 08/08/2024 9:30 AM EST Nurse Only Ancillary [address] [place] [address] [place], Nurse Annual [address] [place] [address] Scheduled Procedures Name Priority Associated Diagnoses Date/Ti [...] ASSESSMENT COMPLETED IN PAST YEAR FOR COPD 08/24/2024 08/24/2023 Arreola's Esophagus Surveilance 06/16/2025 06/16/2022, 06/16/2022, 03/20/2022, [...] this encounter Medical Devices Implanted Type Area Journalism Instructor Device Identifier Shelf Expiration Date Model / Serial / Lot Lens Intraoc 21.0 - [id number] - [id number] Implanted:Qty: 1 on 01/22/2017 by Cheko Mcnamara MD at OR [facility] Right: Eye [employer] 08/05/2021 [id number] / [id number] / [id number] Lens Intraoc 21.5 - [id number] - [id number] Implanted:Qty: 1 on 02/03/2017 by Cheko Mcnamara MD at OR [facility] Left: Eye [employer] 09/02/2021 [id number] / [id number] / [id number] documented as of this encounter Procedures Procedure Name Priority Date/Time Associated Diagnosis Comments ANEMIA REFLEX CHEMISTRY HOLD STAT 08/24/2023 2:21 PM EST 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) ANEMIA CBC STAT 08/24/2023 2:21 PM EST 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) DIFFERENTIAL, AUTOMATED STAT 08/24/2023 2:21 PM EST 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) DIFFERENTIAL, AUTOMATED STAT 08/24/2023 2:21 PM EST 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) RETICULOCYTE PANEL STAT 08/24/2023 2: 21 PM EST 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) COMPREHENSIVE METABOLIC PANEL STAT 08/24/2023 2:21 PM EST 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) FOLIC ACID STAT 08/24/2023 2:21 PM EST 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) IRON SCREEN, INCLUDING TIBC STAT 08/24/2023 2:21 PM EST 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) TSH STAT 08/24/2023 2:21 PM EST 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) FERRITIN STAT 08/24/2023 2:21 PM EST 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) VITAMIN B12 STAT 08/24/2023 2:21 PM EST 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) documented in this encounter Results * VITAMIN B12 (08/24/2023 2:21 PM EST) Vitamin B12 1,134 232 - 1,245 pg/mL 08/25/2023 1:29 AM EST [facility] Blood Venous blood specimen / Unknown Venipuncture / Unknown 08/24/2023 2:21 PM EST 08/24/2023 2:27 PM EST Josh [place] MD LAB BLOOD ORDERA BLES LABORATORY [facility] [address] [place] [address] * FOLIC ACID (08/24/2023 2:21 PM EST) Folic Acid 7.0 >4.5 ng/mL 08/25/2023 1:29 AM EST LABORATORY [facility] Blood Venous blood specimen / Unknown Venipuncture / Unknown 08/24/2023 2:21 PM EST 08/24/2023 2:27 PM EST Josh Sullivan MD LAB BLOOD ORDERA BLES LABORATORY [facility] [address] [place] [address] * TSH (08/24/2023 2:21 PM EST) TSH 1.37 0.27 - 4.20 uIU/mL 08/25/2023 1:29 AM EST [facility] Blood Venous blood specimen / Unknown Venipuncture / Unknown 08/24/2023 2:21 PM EST 08/24/2023 2:27 PM EST Josh Sullivan MD LAB BLOOD ORDERA BLES Performing Organization Address [facility] Co de Phone Number [facility] [address] [place] [address] * FERRITIN (08/24/2023 2:21 PM EST) Ferritin 181 30 - 400 ng/mL 08/25/2023 1:29 AM EST [facility] Blood Venous blood specimen / Unknown Venipuncture / Unknown 08/24/2023 2:21 PM EST 08/24/2023 2:27 PM EST Josh Sullivan MD LAB BLOOD ORDERA BLES Performing Organization Address [facility] Phone Number [facility] [address] [place] [address] * (ABNORMAL) IRON SCREEN, INCLUDING TIBC (08/24/2023 2:21 PM EST) Iron 37(L) 45 - 176 ug/dL 08/25/2023 5:27 AM EST [facility] Iron Binding Capacity 297 250 - 425 ug/dL 08/25/2023 5:27 AM EST [facility] Transferrin Saturation Percent 12(L) 15 - 55 % 08/25/2023 5:27 AM EST [facility] Blood Venous blood specimen / Unknown Venipuncture / Unknown 08/24/2023 2:21 PM EST 08/24/2023 2:27 PM EST Josh Sullivan MD LAB BLOOD ORDERA BLES Performing Organization Address [facility] de Phone Number LABORATORY [facility] [address] [place] [address] * RETICULOCYTE PANEL (08/24/2023 2:21 PM EST) Reticulocyte Percent 1.83 0.80 - 1.90 % 08/24/2023 11:42 PM EST [facility] Absolute Reticulocyte 73.6 31.3 - 100.1 K/uL 08/24/2023 11:42 PM EST [facility] Immature Reticuloctye Fraction 13.3 2.5 - 20.6 % 08/24/2023 11:42 PM EST [facility] Reticulocyte Hemoglobin 33.9 29.7 - 37.4 pg 08/24/2023 11:42 PM EST [facility] Blood Venous blood specimen / Unknown Venipuncture / Unknown 08/24/2023 2:21 PM EST 08/24/2023 2:27 PM EST Josh Sullivan MD LAB BLOOD ORDERA BLES Performing Organization Address City/[facility]/ZIP Co de Phone Number [facility] [address] [place] [address] * ANEMIA REFLEX CHEMISTRY HOLD (08/24/2023 2:21 PM EST) Blood Venous blood specimen / Unknown Venipuncture / Unknown 08/24/2023 2:21 PM EST 08/24/2023 2:27 PM EST Josh Sullivan MD LAB BLOOD ORDERA BLES Performing Organization Address City/[facility]/ZIP Co de Phone Number [facility] [address] [place] [address] * DIFFERENTIAL, AUTOMATED (08/24/2023 2:21 PM EST) WBC 7.05 4.00 - 10.80 K/uL 08/24/2023 11:17 PM EST [facility] Neutrophils % 61.0 40.0 - 75.0 % 08/24/2023 11:17 PM EST [facility] Lymphocytes % 25.4 18.0 - 42.0 % 08/24/2023 11:17 PM EST [facility] Monocytes % 8.2 1.0 - 11.0 % 08/24/2023 11:17 PM EST [facility] Eosinophils % 3.7 0.0 - 6.0 % 08/24/2023 11:17 PM EST [facility] Basophils % 1.4 0.0 - 2.0 % 08/24/2023 11:17 PM EST [facility] Immature Granulocytes % 0.3 0.0 - 2.0 % 08/24/2023 11:17 PM EST [facility] Absolute Neutrophils 4.30 1.80 - 7.70 K/uL 08/24/2023 11:17 PM EST [facility] Absolute Lymphocytes 1.79 1.00 - 4.80 K/ul 08/24/2023 11:17 PM EST [facility] Absolute Monocytes 0.58 0.00 - 1.10 K/uL 08/24/2023 11:17 PM EST [facility] Absolute Eosinophils 0.26 0.00 - 0.70 K/uL 08/24/2023 11:17 PM EST [facility] Absolute Basophils 0.10 0.00 - 0.20 K/uL 08/24/2023 11:17 PM EST [facility] Absolute Immature Granulocytes 0.02 0.00 - 0.20 K/uL 08/24/2023 11:17 PM EST [facility] Blood Venous blood specimen / Unknown Venipuncture / Unknown 08/24/2023 2:21 PM EST 08/24/2023 2:27 PM EST Josh Sullivan MD LAB BLOOD ORDERA BLES Performing Organization Address City/State/[facility] Co de Phone Number LABORATORY [facility] [address] [place] [address] * (ABNORMAL) ANEMIA CBC (08/24/2023 2:21 PM EST) WBC 7.05 4.00 - 10.80 K/uL 08/24/2023 11:17 PM EST [facility] RBC 3.76 4.50 - 5.25 M/uL 08/24/2023 11:17 PM EST [facility] HGB 12.0(L) 14.0 - 16.8 g/dL 08/24/2023 11:17 PM EST [facility] Comment: Anemia reflex testing triggers on a HGB < 12.0 for Females and HGB < 13.0 for Males in accordance with the WHO Anemia Guidelines Anemia reflex testing triggers on a HGB < 12.0 for Females and HGB < 13.0 for Males in accordance with the WHO Anemia Guidelines HCT 34.2(L) 40.0 - 48.4 % 08/24/2023 11:17 PM EST [facility] MCV 91.0 82.0 - 99.5 fL 08/24/2023 11:17 PM EST [facility] MCH 31.9 27.0 - 34.0 pg 08/24/2023 11:17 PM EST [facility] MCHC 35.1 32.0 - 36.0 g/dL 08/24/2023 11:17 PM EST [facility] RDW 14.7 11.5 - 15.5 % 08/24/2023 11:17 PM EST [facility] PLT 157 140 - 400 K/uL 08/24/2023 11:17 PM EST [facility] MPV 11.7 6.6 - 11.1 fL 08/24/2023 11:17 PM EST [facility] nRBCs 0 <=0 /100 WBCs 08/24/2023 11:17 PM EST LABORATORY GM Blood Venous blood specimen / Unknown Venipuncture / Unknown 08/24/2023 2:21 PM EST 08/24/2023 2:27 PM EST Josh Sullivan MD LAB BLOOD ORDERA BLES LABORATORY [facility] [address] [place] [address] * (ABNORMAL) COMPREHENSIVE METABOLIC PANEL (08/24/2023 2:21 PM EST) BUN 45(H) 6 - 20 mg/dL 08/24/2023 10:50 PM EST [facility] Creatinine 2.5(H) 0.6 - 1.2 mg/dL 08/24/2023 10:50 PM EST [facility] Estimated Glomerular Filtration Rate 29(L) >=60 mL/min 08/24/2023 10:50 PM EST [facility] Comment:eGFR is calculated b ased on the CKD-EPI 2020 equation Sodium 139 135 - 146 mmol/L 08/24/2023 10:50 PM EST [facility] Potassium 4.1 3.5 - 5.1 mmol/L 08/24/2023 10:50 PM EST [facility] Chloride 103 98 - 107 mmol/L 08/24/2023 10:50 PM EST [facility] CO2 23 22 - 32 mmol/L 08/24/2023 10:50 PM EST [facility] Anion Gap 13 7 - 15 mmol/L 08/24/2023 10:50 PM EST [facility] Glucose 130(H) 70 - 120 mg/dL 08/24/2023 10:50 PM EST [facility] Albumin 3.8 3.8 - 5.0 g/dL 08/24/2023 10:50 PM EST [facility] AST 61(H) 10 - 50 U/L 08/24/2023 10:50 PM EST [facility] Alkaline Phosphatase 87 35 - 130 U/L 08/24/2023 10:50 PM EST [facility] Bilirubin, Total 0.6 <=1.2 mg/dL 08/24/2023 10:50 PM EST [facility] Calcium 8.7 8.4 - 10.2 mg/dL 08/24/2023 10:50 PM EST [facility] Protein 6.9 6.0 - 8.3 g/dL 08/24/2023 10:50 PM EST [facility] ALT 79(H) 10 - 50 U/L 08/24/2023 10:50 PM EST [facility] Blood Venous blood specimen / Unknown Venipuncture / Unknown 08/24/2023 2:21 PM EST 08/24/2023 2:27 PM EST Josh Sullivan MD LAB BLOOD ORDERA BLES LABORATORY [facility] [address] [place], [place] [id number] documented in this encounter Visit Diagnoses Diagnosis 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) Special screening for malignant neoplasms, colon documented in this encounter Administered Medications Inactive Administered Medications - up to 3 most recent administrations Medication Order MAR Action Action Date Dose Rate Site Furosemide (Lasix) inj 120 mg 120 mg, IV Push, ONCE, On Thu08/25/23 at 1030, For 1 dose Given 08/25/2023 10:30 AM EST 120 mg Forearm Left Given 08/24/2023 2:00 PM EST 120 mg documented in this encounter Advance Directives Latest [...] and were consensually agreed upon. Care Teams Medical Physics Professor Relationship Specialty Start Date End Date Bárbara Rios DO [address] [place] [address] [place] [phone] PCP - General Internal Medicine 08/16/21 documented as of this encounter
--- OUTSIDE RECORDS SUMMARY | 2023-10-20 22:56 | External Medical Summary | Summary of Care ---
Author Name Unknown Organization [facility] Address [address] [facility] [place] [address] Phone [phone] Care Team Providers Care Improvement Lead Name Role Phone Bárbara Rios Primary Care Provider [phone] Reason for Visit * Reason Onset Date Comments [facility]: Acute 08/26/2023 Encounter Details Date Type Department Care Team (Late st Contact Info) Description 08/26/2023 Telephone [facility], [facility] [address] [facility] [place] [address] [facility] [address] [facility] [place] [address] [facility]: Acute Allergies Active Allergy Reactions Criticality Noted Date Comments Other Allergy (See Comments) Rash Low 10/13/2022 1+ cocamidopropyl betaine Sglt2 Inhibitors Other (Please comment) High 09/04/2020 Genital infection Sulfa Antibiotics Rash 10/15/2016 documented as of this encounter (statuses as of 08/26/2023) Medications Medication Sig Dispensed Refills Start Date [...] 32 UNITS WITH DINNER PLUS CORRECTION PER [facility] OR DIRECTED UP TO 120 [...] a week. 9 mL 3 04/09/2023 Active Trcbq-4-blzo Ethyl Esters 1 GM Oral Capsule (Lovaza) [...] 20mg in the afternoon. 0 08/25/2023 Active Hospital, Clinic, or Other Facility Administered [...] as of this encounter (statuses as of 08/26/2023) Active Problems Problem Noted Date Diagnosed Date [...] in the Comments) Remote Patient Monitoring Vendor: Engiver Device(s): Connected Scale Self - Management Plan [...] as of this encounter (statuses as of 08/26/2023) Resolved Problems Problem Noted Date Diagnosed Date [...] as of this encounter (statuses as of 08/26/2023) Immunizations Name Administration Dates Next Due COVID-19 mRNA, LNP-s, No Pre serve, 2-Dose Series (Moderna) 12/10/2020,11/12/2020 Hepatitis B, 20+ yrs 01/04/2018,08/03/2017,07/03 Pneumococcal Conjugate Vacci ne, 20-valent ([id number]) 06/09/2022 Pneumococcal Polysaccharide PPV23 (Pneumovax) 03/06/2020 Seasonal [...] Telephone Encounter - Josh Sullivan MD - 08/26/2023 10:21 AM EST I sent TT to Love Christiansen to see him today * Telephone Encounter - Ara Lizama RN - 08/26/2023 9:39 AM EST Images from the original note were not included. 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 Today his weight increased and "he doesn't feel great". He is SOB , "not terrible but more then his normal baseline." Coughing non productively , chest congestion and his abdomen is distended. No lower leg edema. He stated he did urinate a lot after yesterdays dose of the IV Lasix and was expecting his weight to be down today. He did take his morning dose of Torsemide 40 mg . Patient stated he did text Love his RNCM already and she is in the area today. Nursing Assessment: Patient's chief complaint for this call: SOB, weight increase, abdomen distended Pain Denies pain Baseline Assessment Able to performing ADLs at baseline (walking, daily tasks, etc.): Unknown Chief Complaint is related to a chronic condition: Yes Chronic Condition: HF Chief Complaint is a change in baseline: Yes, SOB, abdomen distended Patient prescribed oxygen? No Patient has been ordered DME equipment (assistive devices, respiratory equipment, etc.): unknown Medication Reconciliation: (See medication list) Received flu shot this season: Yes Taking medication as ordered: Yes Medications ordered/taking to treat reason for call: No Heart failure symptoms: Yes Is Diuretic Titration Protocol (DTP) ordered? yes Describe Diuretic Titration Protocol (DTP): double torsemide x 3 days Diuretic Titration Protocol (DTP) activated: not yet , patient had IV lasix yesterday and day before, waiting on recommendations for today COPD exacerbation symptoms: No Reinforcement Education: Continue current medications Continue daily weights Monitor urine output Level of call: Acute Appointment scheduled for same day:TBD Await [facility] recommendations Follow up phone calls Ara Lizama RN Patient Resource Coordinator [facility] documented in this encounter Plan of Treatment Upcoming Encounters Date Type Department Care Team (Latest Contact Info) Description 09/03/2023 3:00 PM EST Scheduled Telephone [facility], [facility] [address] [facility] [place] [address] Mery Calderon RDN [address] [facility] [place] [address] 09/11/2023 8:30 AM EST Home Visit [facility], [facility] [address] [facility] [place] [address] Love Stevens, ANNE MARIE [facility] [address] 09/16/2023 11:00 AM EDT [facility] [address] [place] [address] Pharmacist1, [facility] [address] [facility] [place] [address] 10/06/2023 2:10 PM EDT Office Visit Family Medicine [address] [phone] Bárbara Rios[address] [place] [address] 10/21/2023 2:40 PM EDT Office Visit Nephrology [address] [place] [address] Shivani Magallon MD [address] [place] [address] 10/27/2023 8:30 AM EDT Office Visit [facility] Disorders Ctr [employer] [address] [place] [phone] Lindsey Sheikh CRNP [address] [place] [address] 12/31/2023 11:45 AM EDT Hospital Encounter ENDO [facility], Endoscopy Room [facility] [address] [place] [phone] José Miguel Sifuentes MD [address] [place] [address] 12/31/2023 11:45 AM EDT - 12/31/2023 12:15 PM EDT Surgery ENDO [facility], Endoscopy Room [facility] [address] [place] [phone] José Miguel Sifuentes MD [address] [place] [address] COLONOSCOPY FLEXIBLE PROXIMAL DIAGNOSTIC 01/14/2024 12:30 PM EDT Cardiac Studies Cardiac Studies [address] [place] [address] 08/08/2024 9:30 AM EST Nurse Only Ancillary [address] [place] [address] [place], Nurse Annual [address] [place] [address] Scheduled Procedures Name Priority Associated Diagnoses Date/Ti [...] ASSESSMENT COMPLETED IN PAST YEAR FOR COPD 08/25/2024 08/25/2023 Arreola's Esophagus Surveilance 06/16/2025 06/16/2022, 06/16/2022, 03/20/2022, [...] this encounter Medical Devices Implanted Type Area Inspector Pawnshop Detail Device Identifier Shelf Expiration Date Model / Serial / Lot Lens Intraoc 21.0 - [id number] - [id number] Implanted:Qty: 1 on 01/22/2017 by Cheko Mcnamara MD at OR [facility] Right: Eye [employer] 08/05/2021 [id number] / [id number] / [id number] Lens Intraoc 21.5 - [id number] - [id number] Implanted:Qty: 1 on 02/03/2017 by Cheko Mcnamara MD at OR [facility] Left: Eye [employer] 09/02/2021 [id number] / [id number] / [id number] documented as of this encounter Advance Directives [...] and were consensually agreed upon. Care Teams Improvement Lead Relationship Specialty Start Date End Date Bárbara Rios DO [address] [place] [address] [place] [address] PCP - General Internal Medicine 08/16/21 documented as of this encounter
--- OUTSIDE RECORDS SUMMARY | 2023-10-20 22:56 | External Medical Summary | Summary of Care ---
Author Name Unknown Organization [facility] Address [address] [facility] [place] [address] Phone [phone] Care Team Providers Care Insurance Claims Specialist Name Role Phone Sridhar Arshad DO Primary Care Provider Reason for Visit * Reason Comments Medication Refill Encounter Details Date Type Department Care Team (Late st Contact Info) Description 08/26/2023 Refill Family Medicine [address] [place] [phone] Sridhar Arshad DO [address] [place] [address] [place] [address] Allergies Active Allergy Reactions Criticality Noted Date Comments Other Allergy (See Comments) Rash Low 10/13/2022 1+ cocamidopropyl betaine Sglt2 Inhibitors Other (Please comment) High 09/04/2020 Genital infection Sulfa Antibiotics Rash 10/15/2016 documented as of this encounter (statuses as of 08/27/2023) Medications Medication Sig Dispensed Refills Start Date [...] hemoglobin A1c goal of less than 7.0% ([facility]) USE TO INJECT INSULINS 5 TIMES DAILY. DX: E11.9 500 Each 3 02/16/2023 Active Semaglutide (2 MG/DOSE) 8 MG/3ML Subcutaneous Solution Pen-injector (Ozempic)Indication s:Type 2 diabetes mellitus with hemoglobin A1c goal of less than 8.0% ([facility]) Inject 2 mg under the skin once a week. 9 mL 3 04/09/2023 Active Jcfdm-5-zdrr Ethyl Esters 1 GM Oral Capsule (Lovaza) [...] as of this encounter (statuses as of 08/27/2023) Active Problems Problem Noted Date Diagnosed Date [...] in the Comments) Remote Patient Monitoring Vendor: Pretty Simple Device(s): Connected Scale Self - Management Plan [...] Continues on anju 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 atha History of tobacco use 08/18/2017 [place] on [...] as of this encounter (statuses as of 08/27/2023) Resolved Problems Problem Noted Date Diagnosed Date [...] as of this encounter (statuses as of 08/27/2023) Immunizations Name Administration Dates Next Due COVID-19 mRNA, LNP-s, No Pre serve, 2-Dose Series (Moderna) 12/10/2020,11/12/2020 Hepatitis B, 20+ yrs 01/04/2018,08/03/2017,07/03 Pneumococcal Conjugate Vacci ne, 20-valent ([id number]) 06/09/2022 Pneumococcal Polysaccharide PPV23 (Pneumovax) 03/06/2020 Seasonal [...] encounter Miscellaneous Notes * Telephone Encounter - Sridhar Arshad DO - 08/27/2023 2:23 PM ESTSigned Prescriptions: Disp Refills Clotrimazole-Betamethasone 1-0.05 % Pathology Secretary*90 g 1 Sig: APPLY TOPICALLY TO AFFECTED AREA(S) TWO TIMES A DAY. Authorizing Provider: SRIDHAR ARSHAD * Telephone Encounter - Denisse Jacobs [facility] - 08/27/2023 9:51 AM EST Pending Prescriptions: Disp Refills Clotrimazole-Betamethasone 1-0.05 % Pathology Secretary*90 g 1 Sig: APPLY TOPICALLY TO AFFECTED AREA(S) TWO TIMES A DAY. * Telephone Encounter - Denisse Jacobs [facility] - 08/27/2023 9:50 AM EST [facility] is currently not authorized to approve refills for the pended medication(s) per refill protocol. Please approve if appropriate. Did you pend patient's preferred pharmacy and medication before forwarding?yes [facility] Pending Prescriptions: Disp Refills Clotrimazole-Betamethasone 1-0.05 % Exter*90 g 1 Sig: APPLY TOPICALLY TO AFFECTED AREA(S) TWO TIMES A DAY. Last Visit: 04/01/2023 (in office), Visit date not found (telemedicine) Next Visit: 10/06/2023 If no future appointments scheduled, and last appointment is greater than a year ago, please schedule patient for a follow-up appointment Last date the medication was ordered: 06/04/22 Is this request for a controlled substance?No [...] Labs: Lab Results Component Value Date/Time CREAT 2.5 (H) 08/24/2023 02:21 PM CREAT 2.96 (A) 01/31/2023 12:00 AM CREAT 0.9 09/08/2017 08:00 AM POTASSIUM 4.1 08/24/2023 02:21 PM POTASSIUM 4.1 01/31/2023 12:00 AM POTASSIUM [...] 08:54 AM HGBA1C 9.7 12/01/2018 12:00 AM Thank you, Denisse Jacobs, PharmD Clinical Pharmacist [facility] ([facility]) (formerly Telepharmacy) 08/27/23 9:50 AM [phone] documented in this encounter Plan of Treatment Upcoming Encounters Date Type Department Care Team (Latest Contact Info) Description 08/28/2023 9:45 AM EST Scheduled Telephone [facility] [place], [address] [place] [address] Coordinator, [facility] [address] [place] [address] 09/03/2023 3:00 PM EST Scheduled Telephone [facility], [facility] [address] [place] [address] Mery Calderon RDN [address] [place] [address] 09/11/2023 8:30 AM EST Home Visit [facility] [place], [facility] [address] [facility] [place] [address] Love Stevens RN [address] [place] [address] 09/16/2023 11:00 AM EDT Telemedicine Pharmacy, [facility] [address] [place] [address] Pharmacist1, [facility] [address] [place] [address] 10/06/2023 2:10 PM EDT Office Visit Family Medicine [address] [place] [phone] [address] [place] [address] 10/21/2023 2:40 PM EDT Office Visit Nephrology [address] [place] [address] Shivani Magallon MD [address] [place] [address] 10/27/2023 8:30 AM EDT Office Visit Sleep Disorders Ctr [facility] [address] [place] [phone] Lindsey Sheikh CRNP [address] [place] [address] 12/31/2023 11:45 AM EDT Hospital Encounter ENDO [facility], Endoscopy Room [facility] [address] [place] [phone] José Miguel Sifuentes MD [address] [place] [address] 12/31/2023 11:45 AM EDT - 12/31/2023 12:15 PM EDT Surgery ENDO [facility], Endoscopy Room [facility] [address] [place] [phone] José Miguel Sifuentes MD [address] [place] [address] COLONOSCOPY FLEXIBLE PROXIMAL DIAGNOSTIC 01/14/2024 12:30 PM EDT Cardiac Studies Cardiac Studies [address] [place] [address] 08/08/2024 9:30 AM EST Nurse Only Ancillary [address] [place] [address] [place], Nurse Annual [address] [place] [address] Scheduled Procedures Name Priority Associated Diagnoses Date/Ti [...] this encounter Medical Devices Implanted Type Area Gill Box Tender Device Identifier Shelf Expiration Date Model / Serial / Lot Lens Intraoc 21.0 - [id number] - [id number] Implanted:Qty: 1 on 01/22/2017 by Cheko Mcnamara MD at OR [facility] Right: Eye [employer] 08/05/2021 [id number] / [id number] / [id number] Lens Intraoc 21.5 - [id number] - [id number] Implanted:Qty: 1 on 02/03/2017 by Cheko Mcnamara MD at OR [facility] Left: Eye BAUSCH [employer]OMB 09/02/2021 [id number] / [id number] / [id number] documented as of this encounter Advance Directives [...] and were consensually agreed upon. Care Teams Insurance Claims Specialist Relationship Specialty Start Date End Date Sridhar Arshad DO [address] [place] [address] [place] [phone] PCP - General Internal Medicine 08/16/21 documented as of this encounter
--- OUTSIDE RECORDS SUMMARY | 2023-10-20 22:56 | External Medical Summary | Summary of Care ---
Author Name Unknown Organization [facility] Address [address] [facility] [place] [address] Phone [phone] Care Team Providers Care Compliance Review Officer Name Role Phone Bárbara Rios Primary Care Provider [phone] Reason for Visit * Reason Comments [facility]: Acute Encounter Details Date Type Department Care Team (Late st Contact Info) Description 08/25/2023 8:30 AM EST Home Visit [facility], [facility] [address] [place] [address] Love Stevens, ANNE MARIE [address] [place] [address] Allergies Active Allergy Reactions Criticality Noted Date [...] a week. 9 mL 3 04/09/2023 Active Gofmo-9-rmif Ethyl Esters 1 GM Oral Capsule (Lovaza) [...] in the Comments) Remote Patient Monitoring Vendor: Browsy Device(s): Connected Scale Self - Management Plan [...] yrs 01/04/2018,08/03/2017,07/03 Pneumococcal Conjugate Vacci ne, 20-valent ([id number]) 06/09/2022 Pneumococcal Polysaccharide PPV23 (Pneumovax) 03/06/2020 Seasonal [...] the money to buy more. Never true 01/31/20 24 Within the past 12 months, t [...] Sign Reading Time Taken Comments Blood Pressure 132/64 08/25/2023 9:08 AM EST Pulse 68 08/25/2023 9:08 AM EST Temperature 35.9 C (96.7 F) 08/25/2023 9:08 AM ES T Respiratory Rate 18 08/25/2023 9:08 AM EST Oxygen Saturation 97% 08/25/2023 9:08 AM EST Inhaled Oxygen Concentration - - Weight - - Height - - Body Mass Index - - documented in this encounter Progress Notes * Love Stevens RN - 08/25/2023 8:07 AM EST [facility] Business Support CoordinatorBulk Plant Supervisor Visit Date: 08/25/2023 Time: 8:07 AM Name: Tony Delong : 1960 Current Concerns: Patient seen for acute follow up- received Lasix 120mg IV yesterday. 40 meq of KCL PO. See weights below- loss of 2.4lb/24 hours Reports having some relief- "but not much." Sob slightly improved No change in abdominal distention. VS Wnl Lungs clear but diminished No LE edema noted Voiding without difficulty Bowels wnl Appetite good Taking fluids- restriction Problems/Symptoms: Review of Systems Constitutional: Negative. HENT: Negative. Respiratory: Positive for shortness of breath. Cardiovascular: Negative. Gastrointestinal: Positive for abdominal distention. Genitourinary: Negative. Musculoskeletal: Negative. Skin: Negative. Neurological: Negative. Hematological: Negative. Psychiatric/Behavioral: Negative. Physical Exam: BP 132/64 (BP Site: Right Arm, BP Position: Sitting, BP Cuff Size: Regular) | Pulse 68 | Temp 35.9 C (96.7 F) (Tympanic) | Resp 18 | SpO2 97% Pain 0 Physical Exam Constitutional: Appearance: Normal [...] No. No falls since last visit Treatment/Plan: Lasix 120mg IV now- LFA- IV discontinued- pressure dressing applied Low na diet AMC scales daily Fluid restriction Continue medications as prescribed Keep all upcoming MD appointments Fall precautions Follow up phone call 1 day Home Interventions Provided: IV Interventions: Diuretic Consulted PCP/Specialist Reinforced current Plan of Care, including self-management and medication regimen Patient Needs to Remember: Call [facility] with any medical concerns/ red flags Referrals Needed: N/a Follow Up: Is there cellular connectivity/connectivity in the home? Yes Does the patient have internet in the home? Yes Patient encouraged to call the intake phone number for all urgent but not emergent issues. Scheduled to follow up with patient in 1 day via phone. Love Du RN 08/25/2023 8:07 AM documented in this encounter Plan of Treatment Upcoming Encounters Date Type Department Care Team (Latest Contact Info) Description 08/26/2023 9:15 AM EST Scheduled Telephone [facility], [facility] [address] [facility] [place] [address] Coordinator, [facility] [address] [place] [address] 09/03/2023 3:00 PM EST Scheduled Telephone [facility], [facility] [address] [facility] [place] [address] Mery Calderon RDN [address] [place] [address] 09/11/2023 8:30 AM EST Home Visit [facility], [facility] [address] [place] [address] Love Stevens, RN 132 [place] [address] 09/16/2023 11:00 AM EDT Telemedicine Pharmacy, [facility] [address] [place] [address] Pharmacist1, [facility] 200 [facility] [place] [address] 10/06/2023 2:10 PM EDT Office Visit Family Medicine [address] [place] [phone] Bárbara Rios[address] [place] [address] 10/21/2023 2:40 PM EDT Office Visit Nephrology [address] [place] [address] Shivani Magallon MD [address] [place] [address] 10/27/2023 8:30 AM EDT Office Visit Sleep Disorders Ctr [facility] [address] [place] [phone] Lindsey Sheikh CRNP 132 [place] [address] 12/31/2023 11:45 AM EDT Hospital Encounter ENDO [facility], Endoscopy Room [facility] 132 [place] [phone] José Miguel Sifuentes MD [address] [place] [address] 12/31/2023 11:45 AM EDT - 12/31/2023 12:15 PM EDT Surgery ENDO [facility], Endoscopy Room [facility] [address] [place] [phone] José Miguel Sifuentes MD [address] [place] [address] COLONOSCOPY FLEXIBLE PROXIMAL DIAGNOSTIC 01/14/2024 12:30 PM EDT Cardiac Studies Cardiac Studies [address] [place] [address] 08/08/2024 9:30 AM EST Nurse Only Ancillary [address] [place] [address] [place], Nurse Annual [address] [place] [address] Scheduled Procedures Name Priority Associated Diagnoses Date/Ti [...] this encounter Medical Devices Implanted Type Area Form Setter Steel Forms Device Identifier Shelf Expiration Date Model / Serial / Lot Lens Intraoc 21.0 - [id number] - [id number] Implanted:Qty: 1 on 01/22/2017 by Cheko Mcnamara MD at OR [facility] Right: Eye [employer] 08/05/2021 [id number] / [id number] / [id number] Lens Intraoc 21.5 - [id number] - [id number] Implanted:Qty: 1 on 02/03/2017 by Cheko Mcnamara MD at OR [facility] Left: Eye [employer]OMB 09/02/2021 [id number] / [id number] / [id number] documented as of this encounter Administered Medications Inactive Administered Medications [...] and were consensually agreed upon. Care Teams Compliance Review Officer Relationship Specialty Start Date End Date Bárbara Rios DO [address] [place] [address] [place] [address] PCP - General Internal Medicine 08/16/21 documented as of this encounter
--- OUTSIDE RECORDS SUMMARY | 2023-10-20 22:56 | External Medical Summary | Summary of Care ---
Author Name Unknown Organization [facility] Address [address] [facility] [place] [address] Phone [phone] Care Team Providers Care Collections Representative Name Role Phone Bárbara Rios Primary Care Provider [phone] Reason for Visit * Reason Onset Date Comments [facility]: Maintenance 08/25/2023 Encounter Details Date Type Department Care Team (Late st Contact Info) Description 08/25/2023 9:15 AM EST Scheduled Telephone [facility], [facility] [address] [place] [address] Coordinator, [facility] [address] [place] [address] Allergies Active Allergy Reactions Criticality Noted Date [...] WITH DINNER PLUS CORRECTION PER [facility] OR DIRECTED UP TO [...] a week. 9 mL 3 04/09/2023 Active Qxzeo-3-yqox Ethyl Esters 1 GM Oral Capsule (Lovaza) [...] and stage 3b chronic kidney disease (HCC) 120 mg IV PUSH ONCE 08/25/2023 08/25/2023 Active documented as of this encounter (statuses [...] in the Comments) Remote Patient Monitoring Vendor: [employer] Device(s): Connected Scale Self - Management Plan [...] yrs 01/04/2018,08/03/2017,07/03 Pneumococcal Conjugate Vacci ne, 20-valent ([id number]) 06/09/2022 Pneumococcal Polysaccharide PPV23 (Pneumovax) 03/06/2020 Seasonal [...] Telephone Encounter - Carolina Carey RN - 08/25/2023 11:08 AM EST No call needed, has MORALES KENNEYCM today Follow up call for tomorrow scheduled BULMARO Muñoz Client Services Director [facility] documented in this encounter Plan of Treatment Upcoming Encounters Date Type Department Care Team (Latest Contact Info) Description 08/26/2023 9:15 AM EST Scheduled Telephone [facility], [facility] [address] [place] [address] Coordinator, [facility] [address] [place] [address] 09/03/2023 3:00 PM EST Scheduled Telephone [facility], [facility] [address] [facility] [place] [address] Mery Calderon RDN [address] [facility] [place] [address] 09/11/2023 8:30 AM EST Home Visit [facility], [facility] [address] [place] [address] Love Stevens RN [address] [place] [address] 09/16/2023 11:00 AM EDT Telemedicine Pharmacy, [facility] [address] [facility] [place] [address] Pharmacist1, [facility] 200 [facility] [place] [address] 10/06/2023 2:10 PM EDT Office Visit Family Medicine [address] [place] [phone] Bárbara Rios[address] [place] [address] 10/21/2023 2:40 PM EDT Office Visit Nephrology [address] [place] [address] Shivani Magallon MD 200 [facility] [place] [address] 10/27/2023 8:30 AM EDT Office Visit Sleep Disorders Ctr [facility] [address] [place] [phone] Lindsey Sheikh CRNP [address] [place] [address] 12/31/2023 11:45 AM EDT Hospital Encounter ENDO [facility], Endoscopy Room [facility] [address] [place] [phone] José Miguel Sifuentes MD [address] [place] [address] 12/31/2023 11:45 AM EDT - 12/31/2023 12:15 PM EDT Surgery ENDO [facility], Endoscopy Room [facility] [address] [place] [phone] José Miguel Sifuentes MD [address] [place] [address] COLONOSCOPY FLEXIBLE PROXIMAL DIAGNOSTIC 01/14/2024 12:30 PM EDT Cardiac Studies Cardiac Studies [address] [place] [address] 08/08/2024 9:30 AM EST Nurse Only Ancillary [address] [place] [address] [place], Nurse Annual [address] [place] [address] Scheduled Procedures Name Priority Associated Diagnoses Date/Ti [...] this encounter Medical Devices Implanted Type Area Cost Engineer Device Identifier Shelf Expiration Date Model / Serial / Lot Lens Intraoc 21.0 - [id number] - [id number] Implanted:Qty: 1 on 01/22/2017 by Cheko Mcnamara MD at OR [facility] Right: Eye [employer]CH [employer] LOMB 08/05/2021 [id number] / [id number] / [id number] Lens Intraoc 21.5 - [id number] - [id number] Implanted:Qty: 1 on 02/03/2017 by Cheko Mcnamara MD at OR [facility] Left: Eye [employer]CH [employer] LOMB 09/02/2021 [id number] / [id number] / [id number] documented as of this encounter Advance Directives [...] and were consensually agreed upon. Care Teams Collections Representative Relationship Specialty Start Date End Date Bárbara Rios DO [address] [place] [address] [place] [phone] PCP - General Internal Medicine 08/16/21 documented as of this encounter
--- OUTSIDE RECORDS SUMMARY | 2023-10-20 22:56 | External Medical Summary | Summary of Care ---
Author Name Unknown Organization [facility] Address [address] [facility] [place] [address] Phone [phone] Care Team Providers Care Freelance Recruiter Name Role Phone Bárbara Rios Primary Care Provider [phone] Encounter Details Date Type Department Care Team (Late st Contact Info) Description 08/25/2023 Orders Only [facility], [facility] [address] [place] [address] Wilfredo Mulligan DO [address] [place] [address] Hypertensive heart and kidney disease with chronic [...] 32 UNITS WITH DINNER PLUS CORRECTION PER [facility] OR DIRECTED UP TO 120 [...] goal of less than 8.0% ([facility]) Inject 2 mg under the skin once a week. 9 mL 3 04/09/2023 Active Xfuax-3-tlen Ethyl Esters 1 GM Oral Capsule (Lovaza) [...] 20mg in the afternoon. 0 08/25/2023 Active Torsemide 20 MG Oral Tablet (Demadex)Indicatio [...] in the Comments) Remote Patient Monitoring Vendor: [employer] Device(s): Connected Scale Self - Management Plan [...] yrs 01/04/2018,08/03/2017,07/03 Pneumococcal Conjugate Vacci ne, 20-valent ([id number]) 06/09/2022 Pneumococcal Polysaccharide PPV23 (Pneumovax) 03/06/2020 Seasonal [...] AM EST Scheduled Telephone [facility], [facility] [address] [place] [address] Coordinator, [facility] 132 [place] [address] 09/03/2023 3:00 PM EST Scheduled Telephone [facility], [facility] [address] [facility] [place] [address] Mery Calderon RDN [address] [facility] [place] [address] 09/11/2023 8:30 AM EST Home Visit [facility], [facility] [address] [place] [address] Love Stevens, ANNE MARIE 132 [place] [address] 09/16/2023 11:00 AM EDT Telemedicine Pharmacy, [address] [place] [address] Pharmacist1, [facility] [address] [place] [address] 10/06/2023 2:10 PM EDT Office Visit Family Medicine [address] [place] [phone] Bárbara Rios[address] [place] [address] 10/21/2023 2:40 PM EDT Office Visit Nephrology [address] [place] [address] Shivani Magallon MD [address] [place] [address] 10/27/2023 8:30 AM EDT Office Visit Sleep Disorders Ctr [facility] [place] [address] [place] [phone] Lindsey Sheikh CRNP [address] [place] [address] 12/31/2023 11:45 AM EDT Hospital Encounter ENDO [facility], Endoscopy Room [facility] [address] [place] [phone] José Miguel Sifuentes MD [address] [place] [address] 12/31/2023 11:45 AM EDT - 12/31/2023 12:15 PM EDT Surgery ENDO [facility], Endoscopy Room [facility] [address] [place] [phone] José Miguel Sifuentes MD [address] [place] [address] COLONOSCOPY FLEXIBLE PROXIMAL DIAGNOSTIC 01/14/2024 12:30 PM EDT Cardiac Studies Cardiac Studies [address] [place] [address] 08/08/2024 9:30 AM EST Nurse Only Ancillary [address] [place] [address] Moval[place], Nurse Annual [address] [place] [address] Scheduled Procedures Name Priority Associated Diagnoses Date/Ti [...] this encounter Medical Devices Implanted Type Area Floor Runner Device Identifier Shelf Expiration Date Model / Serial / Lot Lens Intraoc 21.0 - [id number] - [id number] Implanted:Qty: 1 on 01/22/2017 by Cheko Mcnamara MD at OR [facility] Right: Eye [employer]CH [employer] LOMB 08/05/2021 [id number] / [id number] / [id number] Lens Intraoc 21.5 - [id number] - [id number] Implanted:Qty: 1 on 02/03/2017 by Cheko Mcnamara MD at OR [facility] Left: Eye [employer]CH [employer] LOMB 09/02/2021 [id number] / [id number] / [id number] documented as of this encounter Visit Diagnoses [...] and were consensually agreed upon. Care Teams Freelance Recruiter Relationship Specialty Start Date End Date Bárbara Rios DO [address] [place] [address] [place] [phone] PCP - General Internal Medicine 08/16/21 documented as of this encounter
--- OUTSIDE RECORDS SUMMARY | 2023-10-20 22:56 | External Medical Summary | Summary of Care ---
Author Name Unknown Organization [facility] Address [address] [facility] [place] [address] Phone [phone] Care Team Providers Care Service Desk Manager Name Role Phone Bárbara Rios Primary Care Provider [phone] Reason for Visit * Reason Onset Date Comments [facility]: Maintenance 08/27/2023 Encounter Details Date Type Department Care Team (Late st Contact Info) Description 08/27/2023 9:45 AM EST Scheduled Telephone [facility], [facility] [address] [place] [address] Coordinator, [facility] [address] [place] [address] Allergies Active Allergy Reactions Criticality Noted Date [...] a week. 9 mL 3 04/09/2023 Active Rrrwq-9-sqfb Ethyl Esters 1 GM Oral Capsule (Lovaza) [...] in the Comments) Remote Patient Monitoring Vendor: [employer] Device(s): Connected Scale Self - Management Plan [...] yrs 01/04/2018,08/03/2017,07/03 Pneumococcal Conjugate Vacci ne, 20-valent ([id number]) 06/09/2022 Pneumococcal Polysaccharide PPV23 (Pneumovax) 03/06/2020 Seasonal [...] Telephone Encounter - Ara Lizama RN - 08/27/2023 9:44 AM EST Images from the original note were not included. [facility] Telephonic Nurse Follow-Up Call [facility] Subprogram: Focused Care Management (3-9 months) Follow Up Call Type: Routine follow up call / Status Check Acute issue requiring follow-up call: Other: follow up on weight gain , extras 20 mg of Torsemide yesterday afternoon. RNCM Hv's past 3 days , IV Lasix on 08/24 and 08/25 Objective: 08/26/2023 11:50 AM 08/25/2023 9:08 AM [...] "LEFT VENTRICULAR EJECTION FRACTION" Remote Patient Monitoring: [facility] Scale: scale Oxygen Needs: NO supplemental oxygen needs identified DME Needs: Nebulizer machine and supplies Medications: Current DTP: Other: extra dose of Torsemide 20 mg yesterday afternoon. Had IV Lasix on 08/24 and 08/25 Subjective: Condition Status: Symptoms resolved and back to baseline Current Concerns: Called and spoke with patient, he stated he feels good today. Aware weight is down a little , SOB is at his baseline. told him his color is good today. No new complaints, taking all medications. Aware to continue to weigh himself daily, continue all medications, call [facility] if condition changes. Disposition: Issue resolved. All appropriate follow up scheduled. Future Visits Scheduled: Future Appointments-next 60 days Date/Time Provider Specialty Dept Phone 08/28/2023 9:45 AM CoordinatorMorales [facility] [phone] 09/03/2023 3:00 PM Mery Calderon RDN [facility] [phone] 09/11/2023 8:30 AM Love Stevens, RN [facility] [phone] 09/16/2023 11:00 AM Pharmacist1, [facility] [phone] 10/06/2023 2:10 PM (Arrive by 1:55 PM) Bárbara Rios DO Family Medicine [phone] 10/21/2023 2:40 PM (Arrive by 2:25 PM) Shivani Magallon MD Nephrology [phone] 10/27/2023 8:30 AM (Arrive by 8:15 AM) Lindsey Sheikh CRNP Sleep Disorders [phone] 01/14/2024 12:30 PM [facility] Cardiac Studies [phone] 08/08/2024 9:30 AM [place] Nurse Annual Wellness Ancillary [phone] [place]ama cleaning attendantCoil Builder [facility] documented in this encounter Plan of Treatment Upcoming Encounters Date Type Department Care Team (Latest Contact Info) Description 08/28/2023 9:45 AM EST Scheduled Telephone [facility], [facility] 132 [facility] [place] [address] Coordinator, [facility] [address] [place] [address] 09/03/2023 3:00 PM EST Scheduled Telephone [facility], [facility] [address] [place] [address] Mery Calderon RDN [address] [place] [address] 09/11/2023 8:30 AM EST Home Visit [facility], [facility] [address] [place] [address] Love Stevens, ANNE MARIE 132 [facility] [place] [address] 09/16/2023 11:00 AM EDT Telemedicine Pharmacy, [facility] 200 [facility] [place] [address] Pharmacist1, [facility] 200 [facility] [place] [address] 10/06/2023 2:10 PM EDT Office Visit Family Medicine [address] [place] [phone] Bárbara Rios [address] [place] [address] 10/21/2023 2:40 PM EDT Office Visit Nephrology [address] [place] [address] Shivani Magallon MD [address] [place] [address] 10/27/2023 8:30 AM EDT Office Visit [facility] Disorders Ctr [facility] [employer] [facility] [address] [place] [phone] Lindsey Sheikh CRNP [address] [place] [address] 12/31/2023 11:45 AM EDT Hospital Encounter ENDO [facility], Endoscopy Room [facility] [address] [place] [phone] José Miguel Sifuentes MD [address] [place] [address] 12/31/2023 11:45 AM EDT - 12/31/2023 12:15 PM EDT Surgery ENDO [facility], Endoscopy Room [facility] [address] [place] [phone] José Miguel Sifuentes MD [address] [place] [address] COLONOSCOPY FLEXIBLE PROXIMAL DIAGNOSTIC 01/14/2024 12:30 PM EDT Cardiac Studies Cardiac Studies [address] [place] [address] 08/08/2024 9:30 AM EST Nurse Only Ancillary [address] [place] [address] M[place], Nurse [address] [place] [address] Scheduled Procedures Name Priority Associated Diagnoses Date/Ti [...] this encounter Medical Devices Implanted Type Area Principal Solutions Architect Device Identifier Shelf Expiration Date Model / Serial / Lot Lens Intraoc 21.0 - [id number] - [id number] Implanted:Qty: 1 on 01/22/2017 by Cheko Mcnamara MD at OR [facility] Right: Eye [employer]CH [employer] LOMB 08/05/2021 [id number] / [id number] / [id number] Lens Intraoc 21.5 - [id number] - [id number] Implanted:Qty: 1 on 02/03/2017 by Cheko Mcnamara MD at OR [facility] Left: Eye BAUSCH [employer] LOMB 09/02/2021 [id number] / [id number] / [id number] documented as of this encounter Advance Directives [...] and were consensually agreed upon. Care Teams Service Desk Manager Relationship Specialty Start Date End Date Bárbara Rios DO [address] [place] [address] [place] [phone] PCP - General Internal Medicine 08/16/21 documented as of this encounter
--- OUTSIDE RECORDS SUMMARY | 2023-10-20 22:56 | External Medical Summary | Summary of Care ---
Author Name Unknown Organization [facility] Address [address] [facility] [place] [address] Phone [phone] Care Team Providers Care Road Freight Conductor Name Role Phone Bárbara Rios Primary Care Provider [phone] Reason for Visit * Reason Onset Date Comments [facility]: Maintenance 08/26/2023 Encounter Details Date Type Department Care Team (Late st Contact Info) Description 08/26/2023 9:15 AM EST Scheduled Telephone [facility], [facility] [email or web address] [address] Coordinator, [facility] [address] [place] [address] Allergies Active Allergy Reactions Criticality Noted Date [...] UNITS WITH DINNER PLUS CORRECTION PER [facility] OR DIRECTED UP TO [...] a week. 9 mL 3 04/09/2023 Active Hmgyq-0-nhop Ethyl Esters 1 GM Oral Capsule (Lovaza) [...] in the Comments) Remote Patient Monitoring Vendor: [employer] Device(s): Connected Scale Self - Management Plan [...] yrs 01/04/2018,08/03/2017,07/03 Pneumococcal Conjugate Vacci ne, 20-valent ([id number]) 06/09/2022 Pneumococcal Polysaccharide PPV23 (Pneumovax) 03/06/2020 Seasonal [...] Encounter - Ara Lizama RN - 08/26/2023 9:59 AM EST Follow up call not needed, see acute encounter from today. Ara Lizama volcanology professorCable Installation Technician [facility] documented in this encounter Plan of Treatment Upcoming Encounters Date Type Department Care Team (Latest Contact Info) Description 09/03/2023 3:00 PM EST Scheduled Telephone [facility], [facility] [address] [facility] [place] [address] Mery Calderon RDN [address] [facility] [place] [address] 09/11/2023 8:30 AM EST Home Visit [facility], [facility] 132 [facility] [place] [address] Love Stevens, RN 132 [facility] [place] [address] 09/16/2023 11:00 AM EDT Telemedicine Pharmacy, [facility] [place] [address] [place] [address] Pharmacist1, [facility] 200 [facility] [place] [address] 10/06/2023 2:10 PM EDT Office Visit Family Medicine [address] [phone] Bárbara Rios [address] [place] [address] 10/21/2023 2:40 PM EDT Office Visit Nephrology [address] [place] [address] Shivani Magallon MD [address] [place] [address] 10/27/2023 8:30 AM EDT Office Visit Sleep Disorders Ctr [facility] [place] [address] [place] [phone] Lindsey Sheikh CRNP [address] [place] [address] 12/31/2023 11:45 AM EDT Hospital Encounter ENDO [facility], Endoscopy Room [facility] [address] [place] [phone] José Miguel Sifuentes MD [address] [place] [address] 12/31/2023 11:45 AM EDT - 12/31/2023 12:15 PM EDT Surgery ENDO [facility], Endoscopy Room [facility] [address] [place] [phone] José Miguel Sifuentes MD [address] [place] [address] COLONOSCOPY FLEXIBLE PROXIMAL DIAGNOSTIC 01/14/2024 12:30 PM EDT Cardiac Studies Cardiac Studies [address] [place] [address] 08/08/2024 9:30 AM EST Nurse Only Ancillary [address] [place] [address] Moval[place], Nurse [address] [place] [address] Scheduled Procedures Name Priority Associated Diagnoses Date/Ti [...] this encounter Medical Devices Implanted Type Area Wet End Helper Device Identifier Shelf Expiration Date Model / Serial / Lot Lens Intraoc 21.0 - [id number] - [id number] Implanted:Qty: 1 on 01/22/2017 by Cheko Mcnamara MD at OR [facility] Right: Eye BAUSCH [employer] LOMB 08/05/2021 [id number] / [id number] / [id number] Lens Intraoc 21.5 - [id number] - [id number] Implanted:Qty: 1 on 02/03/2017 by Cheko Mcnamara MD at OR [facility] Left: Eye BAUSCH [employer] LOMB 09/02/2021 [id number] / [id number] / [id number] documented as of this encounter Advance Directives [...] and were consensually agreed upon. Care Teams Road Freight Conductor Relationship Specialty Start Date End Date Bárbara Rios DO [address] [place] [address] [place] [address] PCP - General Internal Medicine 08/16/21 documented as of this encounter
--- OUTSIDE RECORDS SUMMARY | 2023-10-20 22:56 | External Medical Summary | Summary of Care ---
Author Name Unknown Organization [facility] Address [address] [facility] [place] [address] Phone [phone] Care Team Providers Care Pumper Gager Name Role Phone Bárbara Rios Primary Care Provider [phone] Reason for Visit * Reason Comments [facility]: Acute Encounter Details Date Type Department Care Team (Late st Contact Info) Description 08/26/2023 11:30 AM EST [facility] Visit [facility], [facility] [address] [place] [address] Love Stevens, RN [address] [place] [address] Allergies Active Allergy Reactions Criticality Noted Date [...] hemoglobin A1c goal of less than 8.0% ([facility]) Inject 2 mg under the skin once a week. 9 mL 3 04/09/2023 Active Fdmly-2-gbne Ethyl Esters 1 GM Oral Capsule (Lovaza) [...] the Comments) Remote Patient Monitoring Vendor: [employer] Device(s): Connected Scale Self - Management [...] yrs 01/04/2018,08/03/2017,07/03 Pneumococcal Conjugate Vacci ne, 20-valent ([id number]) 06/09/2022 Pneumococcal Polysaccharide PPV23 (Pneumovax) 03/06/2020 Seasonal [...] Sign Reading Time Taken Comments Blood Pressure 130/70 08/26/2023 11:50 AM EST Pulse 70 08/26/2023 11:50 AM EST Temperature 36.5 C (97.7 F) 08/26/2023 11:[address] Respiratory Rate 18 08/26/2023 11:50 AM EST Oxygen Saturation 97% 08/26/2023 11:50 AM EST Inhaled Oxygen Concentration - - Weight - - Height - - Body Mass Index - - documented in this encounter Progress Notes * Love Stevens RN - 08/26/2023 11:47 AM EST Images from the original note were not included. [facility] Training DeveloperTetryl Screen Operator Visit Date: 08/26/2023 Time: 11:47 AM Name: Tony Delong : 1960 Current Concerns: Patient seen for acute visit- Received IV lasix 120mg 08/24, 08/25 Weight today up ~1lb overnight Complains of sob above baseline Abd distention unchanged Trace edema to bilateral ankle/feet Adhering to low na diet Restricting fluids VS wnl Lungs clear but diminished Voiding without difficulty Bowels wnl- per report Appetite fair TT to [facility]- Dr. Sullivan Extra dose of Torsemide in afternoon today(40mg) Phone call follow up tomorrow. Problems/Symptoms: Review of Systems Constitutional: Negative. HENT: Negative. Eyes: Negative. Respiratory: Positive for shortness of breath. Cardiovascular: Positive for leg swelling. Gastrointestinal: Positive for abdominal distention. Endocrine: Negative. Genitourinary: Negative. Musculoskeletal: Negative. Skin: Negative. Allergic/Immunologic: Negative. Neurological: Negative. Hematological: Negative. Physical Exam: BP 130/70 (BP Site: Left Arm, BP Position: Sitting, BP Cuff Size: Regular) | Pulse 70 | Temp 36.5 C (97.7 F) (Tympanic) | Resp 18 | SpO2 97% Pain 0 Physical Exam Constitutional: Appearance: Normal appearance. Cardiovascular: Rate and Rhythm: Normal rate and regular rhythm. Pulses: Normal pulses. Pulmonary: Effort: Pulmonary effort is normal. Breath sounds: Normal breath sounds. Abdominal: General: Bowel sounds are normal. Palpations: Abdomen is soft. Musculoskeletal: Right lower leg: No edema. Left lower leg: Edema present. Skin: General: Skin is warm and dry. Capillary Refill: Capillary refill takes 2 to 3 seconds. Neurological: General: No focal deficit present. Mental Status: He is alert and oriented to person, place, and time. [facility]-10 Completed this Visit: No. No falls since last visit Treatment/Plan: Afternoon dose Torsemide 40mg today. Fluid restriction Weigh daily- [facility] Low na diet Continue medications as prescribed Keep all upcoming MD appointments Fall precautions Follow up phone call tomorrow. Home Interventions Provided: Oral Medications: Other; Extra afternoon dose of Torsemide today(total 40mg pm dose) Consulted PCP/Specialist Reinforced current Plan of Care, including self-management and medication regimen Patient Needs to Remember: Call [facility] with any medical concerns/ red flags Referrals Needed: N/a Follow Up: Is there cellular connectivity/connectivity in the home? Yes Does the patient have internet in the home? Yes Patient encouraged to call the intake phone number for all urgent but not emergent issues. Scheduled to follow up with patient in 1 day. Love Du RN 08/26/2023 11:47 AM documented in this encounter Plan of Treatment Upcoming Encounters Date Type Department Care Team (Latest Contact Info) Description 08/27/2023 9:45 AM EST Scheduled Telephone [facility], [facility] 132 [facility] [place] [address] Coordinator, [facility] 132 [place] [address] 08/28/2023 9:45 AM EST Scheduled Telephone [facility] [place], [facility] 132 [facility] [place] [address] Coordinator, [facility] [address] [place] [address] 09/03/2023 3:00 PM EST Scheduled Telephone [facility], [facility] [address] [facility] [place] [address] Mery Calderon RDN [address] [facility] [place] [address] 09/11/2023 8:30 AM EST Home Visit [facility], [facility] [address] [place] [address] Love Stevens, ANNE MARIE 132 [facility] [place] [address] 09/16/2023 11:00 AM EDT Telemedicine Pharmacy, [facility] 200 [facility] [place] [address] Pharmacist1, [facility] 200 [facility] [place] [address] 10/06/2023 2:10 PM EDT Office Visit Family Medicine [address] [phone] Bárbara Rios[address] [place] [address] 10/21/2023 2:40 PM EDT Office Visit Nephrology [address] [place] [address] Shivani Magallon MD 200 [facility] [place] [address] 10/27/2023 8:30 AM EDT [facility] [address] [place] [phone] Lindsey Sheikh CRNP [address] [place] [address] 12/31/2023 11:45 AM EDT Hospital Encounter ENDO [facility], Endoscopy Room [facility] [address] [phone] José Miguel Sifuentes MD [address] [place] [address] 12/31/2023 11:45 AM EDT - 12/31/2023 12:15 PM EDT Surgery ENDO [facility], Endoscopy Room [facility] [address] [place] [phone] José Miguel Sifuentes MD [address] [place] [address] COLONOSCOPY FLEXIBLE PROXIMAL DIAGNOSTIC 01/14/2024 12:30 PM EDT Cardiac Studies Cardiac Studies [address] [place] [address] 08/08/2024 9:30 AM EST Nurse Only Ancillary [address] [place] [address] [place], Nurse Annual [address] [place] [address] Scheduled Procedures Name Priority Associated Diagnoses Date/Ti [...] this encounter Medical Devices Implanted Type Area Toeing Stockings Device Identifier Shelf Expiration Date Model / Serial / Lot Lens Intraoc 21.0 - [id number] - [id number] Implanted:Qty: 1 on 01/22/2017 by Cheko Mcnamara MD at [facility] Right: Eye BAUSCH & LOMB 08/05/2021 [id number] / [id number] / [id number] Lens Intraoc 21.5 - [id number] - [id number] Implanted:Qty: 1 on 02/03/2017 by Cheko Mcnamara MD at OR [facility] Left: Eye BAUSCH & LOMB 09/02/2021 [id number] / [id number] / [id number] documented as of this encounter Advance Directives [...] and were consensually agreed upon. Care Teams Pumper Gager Relationship Specialty Start Date End Date Bárbara Rios DO [address] [place] [address] [place] [address] PCP - General Internal Medicine 08/16/21 documented as of this encounter
--- OUTSIDE RECORDS SUMMARY | 2023-10-20 22:56 | External Medical Summary | Summary of Care ---
Author Name Unknown Organization [facility] Address [address] [facility] [place] [address] Phone [phone] Care Team Providers Care Area Forester Name Role Phone Bárbara Rios Primary Care Provider [phone] Encounter Details Date Type Department Care Team (Late st Contact Info) Description 08/25/2023 Population Health External Data Unspecified Department Allergies [...] 32 UNITS WITH DINNER PLUS CORRECTION PER [facility] OR DIRECTED UP TO 120 UNITS [...] a week. 9 mL 3 04/09/2023 Active Huaho-1-atqs Ethyl Esters 1 GM Oral Capsule (Lovaza) [...] in the Comments) Remote Patient Monitoring Vendor: [facility] Device(s): Connected Scale Self - [...] Continues on lovaza 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 [employer] History of tobacco use 08/18/2017 CHAPINCITO on [...] has been better controlled recently. Monitor using [email or web address]comstyle Cindy. NEMESIO (acute kidney injury) 04/30/2022 Severe [...] yrs 01/04/2018,08/03/2017,07/03 Pneumococcal Conjugate Vacci ne, 20-valent ([id number]) 06/09/2022 Pneumococcal Polysaccharide PPV23 (Pneumovax) 03/06/2020 Seasonal [...] AM EST Scheduled Telephone [facility], [facility] [address] [place] [address] Coordinator, [place] [address] [address] Hannah [place] [address] 08/28/2023 9:45 AM EST Scheduled Telephone [facility], [facility] [address] [place] [address] Coordinator, [place] [address] Romanabhavesh Smith [place] [address] 09/03/2023 3:00 PM EST Scheduled Telephone [facility], [facility] [address] [facility] [place] [address] Mery Calderon RDN [address] [facility] [place] [address] 09/11/2023 8:30 AM EST Home Visit [facility], [facility] [address] [place] [address] Love Stevens, ANNE MARIE [address] [place] [address] 09/16/2023 11:00 AM EDT Telemedicine Pharmacy, [facility] 200 [facility] [place] [address] Pharmacist1, [facility] 200 [facility] [address] 10/06/2023 2:10 PM EDT Office Visit Family Medicine [address] [place] [phone] Bárbara Rios[address] [place] [address] 10/21/2023 2:40 PM EDT Office Visit Nephrology [address] [place] [address] Shivani Magallon MD [address] [place] [address] 10/27/2023 8:30 AM EDT [facility] [address] [place] [phone] Lindsey Sheikh CRNP [address] [place] [address] 12/31/2023 11:45 AM EDT Hospital Encounter ENDO [facility], Endoscopy Room [facility] [address] [place] [phone] José Miguel Sifuentes MD [address] [place] [address] 12/31/2023 11:45 AM EDT - 12/31/2023 12:15 PM EDT Surgery ENDO [facility], Endoscopy Room [facility] [address] [place] [phone] José Miguel Sifuentes MD [address] [place] [address] COLONOSCOPY FLEXIBLE PROXIMAL DIAGNOSTIC 01/14/2024 12:30 PM EDT Cardiac Studies Cardiac Studies [address] [place] [address] 08/08/2024 9:30 AM EST Nurse Only Ancillary [address] [place] [address] [place], Nurse [address] [place] [address] Scheduled Procedures Name Priority Associated Diagnoses Date/Ti [...] this encounter Medical Devices Implanted Type Area Windshield Repair Technician Device Identifier Shelf Expiration Date Model / Serial / Lot Lens Intraoc 21.0 - [id number] - [id number] Implanted:Qty: 1 on 01/22/2017 by Cheko Mcnamara MD at OR [facility] Right: Eye BAUSCH & LOMB 08/05/2021 [id number] / [id number] / [id number] Lens Intraoc 21.5 - [id number] - [id number] Implanted:Qty: 1 on 02/03/2017 by Cheko Mcnamara MD at OR [facility] Left: Eye BAUSCH & LOMB 09/02/2021 [id number] / [id number] / [id number] documented as of this encounter Advance Directives [...] and were consensually agreed upon. Care Teams Area Forester Relationship Specialty Start Date End Date Bárbara Rios DO [address] [place] [address] [place] [address] PCP - General Internal Medicine 08/16/21 documented as of this encounter
--- OUTSIDE RECORDS SUMMARY | 2023-10-20 22:56 | External Medical Summary | Summary of Care ---
Author Name Unknown Organization [facility] Address [address] [facility] [place] [address] Phone [phone] Care Team Providers Care Er Rn Name Role Phone Bárbara Rios Primary Care Provider [phone] Reason for Visit * Reason Onset Date Comments [facility]: Acute 08/26/2023 Encounter Details Date Type Department Care Team (Late st Contact Info) Description 08/26/2023 Telephone [facility], [facility] 132 [facility] [place] [address] [facility], Nurse [facility] [address] [facility] [place] [address] [facility]: Acute Allergies Active Allergy [...] 32 UNITS WITH DINNER PLUS CORRECTION PER [facility] OR DIRECTED UP TO [...] a week. 9 mL 3 04/09/2023 Active Gazgm-2-xzbj Ethyl Esters 1 GM Oral Capsule (Lovaza) [...] in the Comments) Remote Patient Monitoring Vendor: [employer] Device(s): Connected Scale Self - Management Plan [...] yrs 01/04/2018,08/03/2017,07/03 Pneumococcal Conjugate Vacci ne, 20-valent ([id number]) 06/09/2022 Pneumococcal Polysaccharide PPV23 (Pneumovax) 03/06/2020 Seasonal [...] from the original note were not included. 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 Acute Call Date: 08/26/2023 Time: 9:39 AM Name: Tony Delong : 1960 Caller: Tony Relationship to : self HPI: Tony Delong is a 63 year old male that is calling [facility] Intake to report he hada [...] Acute Appointment scheduled for same day:TBD Await [facility] recommendations Follow up phone calls Ara Lizama manager clinicManagement Specialist [facility] documented in this encounter Plan of Treatment Upcoming Encounters Date Type Department Care Team (Latest Contact Info) Description 09/03/2023 3:00 PM EST Scheduled Telephone [facility], [facility] [address] [facility] [place] [address] Mery Calderon RDN [address] [facility] [place] [address] 09/11/2023 8:30 AM EST Home Visit [facility], [facility] 132 [facility] [place] [address] Love Stevens, RN 132 [facility] [place] [address] 09/16/2023 11:00 AM EDT Telemedicine Pharmacy, [facility] 200 [facility] [place] [address] Pharmacist1, [facility] 200 [facility] [place] [address] 10/06/2023 2:10 PM EDT Office Visit Family Medicine [address] [place] [phone] Bárbara Rios [address] [place] [address] 10/21/2023 2:40 PM EDT Office Visit Nephrology [address] [place] [address] Shivani Magallon MD [address] [place] [address] 10/27/2023 8:30 AM EDT Office Visit Sleep Disorders Ctr Maximiliano Vega, [place] [address] [place] [phone] Lindsey Sheikh CRNP [address] [place] [address] 12/31/2023 11:45 AM EDT Hospital Encounter [facility]O [facility], Endoscopy Room [facility] [address] [place] [phone] José Miguel Sifuentes MD [address] [place] [address] 12/31/2023 11:45 AM EDT - 12/31/2023 12:15 PM EDT Surgery ENDO [facility], Endoscopy Room [facility] [address] [phone] José Miguel Sifuentes MD [address] [place] [address] COLONOSCOPY FLEXIBLE PROXIMAL DIAGNOSTIC 01/14/2024 12:30 PM EDT Cardiac Studies Cardiac Studies [address] [place] [address] 08/08/2024 9:30 AM EST Nurse Only Ancillary [address] [place] [address] [place], Nurse Annual [address] [place] [address] Scheduled Procedures Name Priority Associated Diagnoses Date/Ti me COLONOSCOPY FLEXIBLE PROXIMA L DIAGNOSTIC Recall Special screening for malignant neoplasms, colon 12/31/2023 11:45 AM EDT ESOPHAGOGASTRODUODENOSCOPY ( EGD), FLEXIBLE, TRANSORAL, DIAGNOSTIC Recall Arreola's esophagus with dysplasia Health Maintenance Due Date Last Done Comments HIV Screening 1974 Alpha-1 Antitrypsin 1977 COLONOSCOPY-EVERY 5 YRS AGES 18-100 01/01/2023 01/01/2018, 01/01/2018 COVID-19 Vaccine (3 - 2022-24 season) 2023 12/10/2020, 11/12/2020 Diabetic Foot Exam [...] this encounter Medical Devices Implanted Type Area Dock Operations Supervisor Device Identifier Shelf Expiration Date Model / Serial / Lot Lens Intraoc 21.0 - [id number] - [id number] Implanted:Qty: 1 on 01/22/2017 by Cheko Mcnamara MD at OR [facility] Right: Eye BAUSCH & LOMB 08/05/2021 [id number] / [id number] / [id number] Lens Intraoc 21.5 - [id number] - [id number] Implanted:Qty: 1 on 02/03/2017 by Cheko Mcnamara MD at OR [facility] Left: Eye BAUSCH & LOMB 09/02/2021 [id number] / [id number] / [id number] documented as of this encounter Advance Directives [...] and were consensually agreed upon. Care Teams Er Rn Relationship Specialty Start Date End Date Bárbara Rios DO [address] [place] [address] [place] [address] PCP - General Internal Medicine 08/16/21 documented as of this encounter
--- OUTSIDE RECORDS SUMMARY | 2023-10-20 22:56 | External Medical Summary | Summary of Care ---
Author Name Unknown Organization [facility] Address [address] [facility] [place] [address] Phone [phone] Care Team Providers Care See Wheeler Name Role Phone Bárbara Rios Primary Care Provider [phone] Reason for Visit * Reason Onset Date Comments [facility]: Acute 08/26/2023 Encounter Details Date Type Department Care Team (Late st Contact Info) Description 08/26/2023 Telephone [facility], [facility] 132 [facility] [place] [address] [facility], Nurse [facility] 132 [facility] [place] [address] [facility]: Acute Allergies Active Allergy [...] 32 UNITS WITH DINNER PLUS CORRECTION PER [facility] OR DIRECTED UP TO [...] a week. 9 mL 3 04/09/2023 Active Rztqk-0-ifck Ethyl Esters 1 GM Oral Capsule (Lovaza) [...] in the Comments) Remote Patient Monitoring Vendor: [employer] Device(s): Connected Scale Self - Management Plan [...] yrs 01/04/2018,08/03/2017,07/03 Pneumococcal Conjugate Vacci ne, 20-valent ([id number]) 06/09/2022 Pneumococcal Polysaccharide PPV23 (Pneumovax) 03/06/2020 Seasonal [...] from the original note were not included. 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 Acute Call Date: 08/26/2023 Time: 9:39 AM Name: Tony Delong : 1960 Caller: Tony Relationship to : self HPI: Tony Delong is a 63 year old male that is calling [facility] Intake to report he hada [...] Acute Appointment scheduled for same day:TBD Await [facility] recommendations Follow up phone calls Ara Lizama RN Chief Deputy Court Clerk [facility] documented in this encounter Plan of Treatment Upcoming Encounters Date Type Department Care Team (Latest Contact Info) Description 08/27/2023 9:45 AM EST Scheduled Telephone [facility], [address] [place] [address] Coordinator, [address] [place] [address] 08/28/2023 9:45 AM EST Scheduled Telephone [facility], [address] [place] [address] Coordinator, [address] [place] [address] 09/03/2023 3:00 PM EST Scheduled Telephone [facility], [facility] [address] [facility] [place] [address] Mery Calderon RDN [address] [facility] [place] [address] 09/11/2023 8:30 AM EST Home Visit [facility], [facility] 132 [facility] [place] [address] Love Stevens RN [address] [place] [address] 09/16/2023 11:00 AM EDT Telemedicine Pharmacy, [facility] [place] [address] [place] [address] Pharmacist1, [facility] [address] [place] [address] 10/06/2023 2:10 PM EDT Office Visit Family Medicine [address] [place] [phone] Bárbara Rios[address] [place] [address] 10/21/2023 2:40 PM EDT Office Visit Nephrology [address] [place] [address] Shivani Magallon MD [address] [place] [address] 10/27/2023 8:30 AM EDT Office Visit [facility] Disorders Ctr Maximiliano V[facility]State [place] [facility] [address] [place] [phone] Lindsey Sheikh CRNP [address] [place] [address] 12/31/2023 11:45 AM EDT Hospital Encounter [facility]O [facility], Endoscopy Room [facility] [address] [phone] José Miguel Sifuentes MD [address] [place] [address] 12/31/2023 11:45 AM EDT - 12/31/2023 12:15 PM EDT Surgery ENDO [facility], Endoscopy Room [facility] [address] [place] [phone] José Miguel Sifuentes MD [address] [place] [address] COLONOSCOPY FLEXIBLE PROXIMAL DIAGNOSTIC 01/14/2024 12:30 PM EDT Cardiac Studies Cardiac Studies [address] [place] [address] 08/08/2024 9:30 AM EST Nurse Only Ancillary [address] [place] [address] [place], Nurse Annual [address] [place] [address] Scheduled Procedures Name Priority Associated Diagnoses Date/Ti [...] this encounter Medical Devices Implanted Type Area Director Cost Device Identifier Shelf Expiration Date Model / Serial / Lot Lens Intraoc 21.0 - [id number] - [id number] Implanted:Qty: 1 on 01/22/2017 by Cheko Mcnamara MD at OR [facility] Right: Eye BAUSCH & LOMB 08/05/2021 [id number] / [id number] / [id number] Lens Intraoc 21.5 - [id number] - [id number] Implanted:Qty: 1 on 02/03/2017 by Cheko Mcnamara MD at OR [facility] Left: Eye BAUSCH & LOMB 09/02/2021 [id number] / [id number] / [id number] documented as of this encounter Advance Directives [...] and were consensually agreed upon. Care Teams See Wheeler Relationship Specialty Start Date End Date Bárbara Rios DO [address] [place] [address] [place] [phone] PCP - General Internal Medicine 08/16/21 documented as of this encounter
--- OUTSIDE RECORDS SUMMARY | 2023-10-20 22:57 | External Medical Summary | Summary of Care ---
Author Name Unknown Organization [facility] Address [address] [facility] [place] [address] Phone [phone] Care Team Providers Care Buffer Machine Name Role Phone Bárbara Rios Primary Care Provider [phone] Reason for Visit * Reason Onset Date Comments [facility]: Maintenance 08/24/2023 Encounter Details Date Type Department Care Team (Late st Contact Info) Description 08/24/2023 9:15 AM EST Scheduled Telephone [facility], [facility] [address] [place] [address] Coordinator, [facility] [address] [place] [address] Allergies Active Allergy Reactions Criticality Noted Date Comments Other Allergy (See Comments) Rash Low 10/13/2022 1+ cocamidopropyl betaine Sglt2 Inhibitors Other (Please comment) High 09/04/2020 Genital infection Sulfa Antibiotics Rash 10/15/2016 documented as of this encounter (statuses as of 08/24/2023) Medications Medication Sig Dispensed Refills Start Date [...] 32 UNITS WITH DINNER PLUS CORRECTION PER [facility] OR DIRECTED UP TO 120 [...] DX: E11.9 500 Each 3 02/16/2023 Active Torsemide 20 MG Oral Tablet (Demadex)Indication s:Hypertensive 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 (HCC) Take 2 tablets in the morning and a third tablet at least 4 hours later; Take extra tablet as needed for weight gain. 315 Tablet 3 03/17/2023 Active Additional Information Patient taking differently: 40 mg Oral Daily(AM), Take 2 tablets in the morning and 1 tablet 4 hours later. Continue DTP as ordered., Reported on 05/07/2023 Semaglutide (2 MG/DOSE) 8 MG/3ML Subcutaneous Solution Pen-injector (Ozempic)Indication s:Type 2 diabetes mellitus with hemoglobin A1c goal of less than 8.0% (HCC) Inject 2 mg under the skin once a week. 9 mL 3 04/09/2023 Active Ixulv-9-wovo Ethyl Esters 1 GM Oral Capsule (Lovaza) [...] the morning. 100 Tablet 3 08/12/2023 Active Hospital, Clinic, or Other Facility Administered [...] as of this encounter (statuses as of 08/24/2023) Active Problems Problem Noted Date Diagnosed Date [...] in the Comments) Remote Patient Monitoring Vendor: [employer] Device(s): Connected Scale Self - Management Plan [...] as of this encounter (statuses as of 08/24/2023) Resolved Problems Problem Noted Date Diagnosed Date [...] as of this encounter (statuses as of 08/24/2023) Immunizations Name Administration Dates Next Due COVID-19 mRNA, LNP-s, No Pre serve, 2-Dose Series (Moderna) 12/10/2020,11/12/2020 Hepatitis B, 20+ yrs 01/04/2018,08/03/2017,07/03 Pneumococcal Conjugate Vacci ne, 20-valent ([id number]) 06/09/2022 Pneumococcal Polysaccharide PPV23 (Pneumovax) 03/06/2020 Seasonal [...] Telephone Encounter - Parris Francis RN - 08/24/2023 11:01 AM EST Images from the original note were not included. [facility] Telephonic Nurse Follow-Up Call [facility] Subprogram: Focused Care Management (3-9 months) Follow Up Call Type: Routine follow up call / Status Check Acute issue requiring follow-up call: Heart Failure Exacerbation Other: DTP started on Thursday, has AMC scale Objective: 08/21/2023 12:29 PM 08/12/2023 1:40 PM 08/05/2023 9:47 AM 07/29/2023 1:30 PM 07/22/2023 3:00 PM VITALS ACROSS ENCOUNTERS BP 128/60 126/76 124/60 132/72 116/62 Pulse 80 62 81 64 64 Weight 135.6 kg 138 kg BMI 41.25 BMI 40.55 kg/m2 41.26 kg/m2 Lab Results Component Value Date BLOOD, URINE - [facility] Negative 06/11/2023 PROTEIN, URINE - [facility] 30 (A) 06/11/2023 ESTERASE, URINE - [facility] Negative 06/11/2023 WBC, URINE - [facility] 0-2 06/11/2023 NITRITE, URINE - [facility] Negative 06/11/2023 Lab Results Component Value Date HGB - [facility] 12.9 (L) 06/11/2023 Lab Results Component Value Date SODIUM - [facility] 141 07/29/2023 POTASSIUM - [facility] 4.6 07/29/2023 CO2 - [facility] 24 07/29/2023 CREATININE - [facility] 2.2 (H) 07/29/2023 ESTIMATED GLOMERULAR FILTRATION RATE - [facility] 32 (L) 07/29/2023 ALBUMIN - [facility] 4.1 06/11/2023 No results found for: "PRO BNP", "LEFT VENTRICULAR EJECTION FRACTION" Remote Patient Monitoring: [facility] Scale: Oxygen Needs: NO supplemental oxygen needs identified DME Needs: Other: CPAP Medications: Current DTP: Double dose of Torsemide for 3 days Avoid excessive fluid intake and avoid salty, processed food Weigh daily Subjective: Condition Status: Worsening of symptoms Current Concerns: Pt called to report that he is not any better despite completing the DTP yesterday. He has gained weight. He has trouble taking a full breath. He is SOB with speech. He states that his abdomen is distended. He did not really have increased urinary output with the DTP. Last BM yesterday evening for decent amount of stool. His SOB remains worse than his baseline. He denies cough with sputum and hasnot been taking Mucinex. SPO2 97% P 67 at time of call taken on his watch. He has very little edemaof BLE- leaves a slight indentation. Denies chest pain. Denies feeling lightheaded or dizzy. Per his - he looked fatigued and his color was ashen yesterday. Color is normal today. He does not c/oorthopnea, he has a hospital style bed and keeps the head of the bed elevated 5-6 inches, his norm.He admits to not being perfect, but he does adhere to the fluid and sodium restrictions to the bestof his ability. He has Metolazone in the home, states he is not to use it unless he is directed to do so by a Provider. Disposition: Routed to [facility] and/or [facility] Team for further advice and Follow up call scheduled for tomorrow with LAUNDRY PRESSER Voting Machine Mechanic Future Visits Scheduled: Future Appointments-next 60 days Date/Time Provider Specialty Dept Phone 09/03/2023 3:00 PM Mery Calderon RDN [facility] [phone] 09/11/2023 8:30 AM Love Stevens RN [facility] [phone] 09/16/2023 11:00 AM Pharmacist1, [facility] [phone] 10/06/2023 2:10 PM (Arrive by 1:55 PM) Bárbara Rios DO Family Medicine [phone] 10/21/2023 2:40 PM (Arrive by 2:25 PM) Shivani Magallon MD Nephrology [phone] 10/27/2023 8:30 AM (Arrive by 8:15 AM) Lindsey Sheikh CRNP Sleep Disorders [phone] 01/14/2024 12:[address] [facility] Cardiac Studies [phone] 08/08/2024 9:30 AM Osito Nurse Annual Wellness Ancillary [phone] Parris Francis, RN documented in this encounter Plan of Treatment Upcoming Encounters Date Type Department Care Team (Latest Contact Info) Description 08/25/2023 9:15 AM EST Scheduled Telephone [facility], [facility] [address] [place] [address] Coordinator, [facility] [address] [place] [address] 09/03/2023 3:00 PM EST Scheduled Telephone [facility], [facility] [address] [facility] [place] [address] Mery Calderon RDN [address] [facility] [place] [address] 09/11/2023 8:30 AM EST Home Visit [facility], [facility] [address] [place] [address] oLve Stevens, RN [address] [facility] [place] [address] 09/16/2023 11:00 AM EDT Telemedicine Pharmacy, [address] [place] [address] Pharmacist1, [facility] [address] [place] [address] 10/06/2023 2:10 PM EDT Office Visit Family Medicine [address] [place] [phone] Bárbara Rios[address] [place] [address] 10/21/2023 2:40 PM EDT Office Visit Nephrology [address] [place] [address] Shivani Magallon MD [address] [place] [address] 10/27/2023 8:30 AM EDT Office Visit Sleep Disorders Ctr [facility] [address] [place] [phone] Lindsey Sheikh CRNP [address] [place] [address] 12/31/2023 11:45 AM EDT Hospital Encounter ENDO OSSC, Endoscopy Room [facility] [address] [place] [phone] José Miguel Sifuentes MD [address] [place] [address] 12/31/2023 11:45 AM EDT - 12/31/2023 12:15 PM EDT Surgery ENDO OSSC, Endoscopy Room [facility] [address] [place] [phone] José Miguel Sifuentes MD [address] [place] [address] COLONOSCOPY FLEXIBLE PROXIMAL DIAGNOSTIC 01/14/2024 12:30 PM EDT Cardiac Studies Cardiac Studies [address] [place] [address] 08/08/2024 9:30 AM EST Nurse Only Ancillary [address] [place] [address] [place], Nurse Annual [address] [place] [address] Scheduled Procedures Name Priority Associated Diagnoses Date/Ti [...] 06/11/2023, 03/07, 12/17/2022, Additional history exists GFR 01/27/2024 07/29/2023, 12/0 01/2023, 04/27/2023, Additional history exists Albumin/Creatinine Ratio 06/11/2024 023, 09/22/2022, 09/02/2022, Additional history exists Diabetic Eye Exam 07/01/2024 07/01/2023, , 02/12/2023, Additional history exists Depression Screening 08/05/2024 08/05/2023 O2 ASSESSMENT COMPLETED IN PAST YEAR FOR COPD 08/21/2024 08/21/2023 Arreola's Esophagus Surveilance 06/16/2025 06/16/2022, 06/16/2022, 03/20/2022, [...] this encounter Medical Devices Implanted Type Area Legal Financial Specialist Device Identifier Shelf Expiration Date Model / Serial / Lot Lens Intraoc 21.0 - [id number] - [id number] Implanted:Qty: 1 on 01/22/2017 by Cheko Mcnamara MD at OR [facility] Right: Eye [employer] 08/05/2021 [id number] / [id number] / [id number] Lens Intraoc 21.5 - [id number] - [id number] Implanted:Qty: 1 on 02/03/2017 by Cheko Mcnamara MD at OR [facility] Left: Eye [employer]OM[employer] 09/02/2021 [id number] / [id number] / [id number] documented as of this encounter Advance Directives [...] and were consensually agreed upon. Care Teams Buffer Machine Relationship Specialty Start Date End Date Bárbara Rios DO [address] [place] [address] [place] [address] PCP - General Internal Medicine 08/16/21 documented as of this encounter
--- OUTSIDE RECORDS SUMMARY | 2023-10-20 22:57 | External Medical Summary ---
Author Name Unknown Address Unknown Organization [id number]:LABORATORY [facility] - [address] [place] [address] Laboratory Report Ordering Provider Test Date Status PRINCEEVERTON 08/24/2023 14:21:12 Final Observation Date Value Abnormality Reference (Units ) Status Iron 08/24/2023 14:21:12 37 Below low normal 45-176 (ug/dL) Final Iron-binding capacity 08/24/2023 14:21:12 297 250-425 (ug/dL) Final Transferrin Sat % 08/24/2023 14:21:12 12 Below low normal 15-55 (%) Final Performing Location LAB[facility]ATORY [facility] - [address] [place] [address]
--- OUTSIDE RECORDS SUMMARY | 2023-10-20 22:57 | External Medical Summary ---
Author Name Unknown Address Unknown Organization [id number]:[facility] [place] [facility] [address] [place] [address] Laboratory Report Ordering Provider Test Date Status EVERTON MORRISON 08/24/2023 14:21:12 Final Observation Date Value Abnormality Reference (Units ) Status Retic, % (auto) 08/24/2023 14:21:12 1.83 0.80-1.90 (%) Final Reticulocytes, Absolute 08/24/2023 14:21:12 73.6 31.3-100.1 (K/uL) Final Reticulocyte fraction, immature 08/24/2023 14:21:12 13.3 2.5-20.6 (%) Final Reticulocyte HGB 08/24/2023 14:21:12 33.9 29.7-37.4 (pg) Final Performing Location [facility] [place] [address] [address]
--- OUTSIDE RECORDS SUMMARY | 2023-10-20 22:57 | External Medical Summary | Summary of Care ---
Author Name Unknown Organization [facility] Address [address] [facility] [place] [address] Phone [phone] Care Team Providers Care Technical Solutions Engineer Name Role Phone Bárbara Rios Primary Care Provider [phone] Reason for Visit * Reason Onset Date Comments [facility]: Maintenance 08/22/2023 Encounter Details Date Type Department Care Team (Late st Contact Info) Description 08/22/2023 4:00 PM EST Scheduled Telephone [facility], [facility] [address] [facility] [place] [address] [facility], Nurse [facility] [address] [facility] [place] [address] Allergies Active Allergy Reactions Criticality Noted Date Comments Other Allergy (See Comments) Rash Low 10/13/2022 1+ cocamidopropyl betaine Sglt2 Inhibitors Other (Please comment) High 09/04/2020 Genital infection Sulfa Antibiotics Rash 10/15/2016 documented as of this encounter (statuses as of 08/22/2023) Medications Medication Sig Dispensed Refills Start Date [...] 32 UNITS WITH DINNER PLUS CORRECTION PER [facility] OR DIRECTED UP TO [...] a week. 9 mL 3 04/09/2023 Active Vooym-2-bbib Ethyl Esters 1 GM Oral Capsule (Lovaza) [...] as of this encounter (statuses as of 08/22/2023) Active Problems Problem Noted Date Diagnosed Date [...] in the Comments) Remote Patient Monitoring Vendor: Sajan Device(s): Connected Scale Self - Management Plan [...] as of this encounter (statuses as of 08/22/2023) Resolved Problems Problem Noted Date Diagnosed Date [...] as of this encounter (statuses as of 08/22/2023) Immunizations Name Administration Dates Next Due COVID-19 mRNA, LNP-s, No Pre serve, 2-Dose Series (Moderna) 12/10/2020,11/12/2020 Hepatitis B, 20+ yrs 01/04/2018,08/03/2017,07/03 Pneumococcal Conjugate Vacci ne, 20-valent ([id number]) 06/09/2022 Pneumococcal Polysaccharide PPV23 (Pneumovax) 03/06/2020 Seasonal [...] Telephone Encounter - Carolina Carey RN - 08/22/2023 9:21 AM EST Images from the original note were not included. [facility] Telephonic Nurse Follow-Up Call [facility] Subprogram: Focused Care Management (3-9 months) Follow Up Call Type: Weekend Call Acute issue requiring follow-up call: Heart Failure Exacerbation DTP started Thu x 3 days Objective: 08/21/2023 12:29 PM 08/12/2023 1:40 PM [...] "LEFT VENTRICULAR EJECTION FRACTION" Remote Patient Monitoring: [facility] Scale: Oxygen Needs: NO CHANGE from baseline supplemental oxygen needs DME Needs: NO DME needs identified Medications: Current DTP: Double dose of Torsemide for 3 days Subjective: Condition Status: Improvement in symptoms but not at baseline Current Concerns: Spoke with Tony, states he does feel better than yesterday, weight is down 0.7 lbs, is still SOB but continue with the DTP for 2 more days, has a small cough with congestion, denies any fever/chills,has mucinex to take for increased congestion, no wheezing, can use saline nasal spray prn and stay hydrated with clear liquids. Sleeps with a CPAP Disposition: Routed to [facility] and/or [facility] at Home Care Team for further advice and Follow up call scheduled for tomorrow with CURATORIAL SPECIALIST Director Of Strategic Partnerships Future Visits Scheduled: Future Appointments-next 60 days Date/Time Provider Specialty Dept Phone 08/22/2023 4:00 PM [facility], [facility] [phone] 08/23/2023 8:30 AM [facility] [phone] 09/03/2023 3:00 PM Mery Calderon RDN [facility] [phone] 09/11/2023 8:30 AM Love Stevens, RN [facility] [phone] 09/16/2023 11:00 AM Pharmacist1, [facility] [phone] 10/06/2023 2:10 PM (Arrive by 1:55 PM) Bárbara Rios DO Family Medicine [phone] 10/21/2023 2:40 PM (Arrive by 2:25 PM) Shivani Magallon MD Nephrology [phone] 10/27/2023 8:30 AM (Arrive by 8:15 AM) Lindsey Sheikh CRNP Sleep Disorders [phone] 01/14/2024 12:30 PM DRILL OPERATOR AUTOMATIC [facility] Cardiac Studies [phone] 08/08/2024 9:30 AM Nurse [facility] Annual Wellness Ancillary [phone] Carolina Carey, RN documented in this encounter Plan of Treatment Upcoming Encounters Date Type Department Care Team (Latest Contact Info) Description 08/23/2023 8:30 AM EST Scheduled Telephone [facility], [facility] [address] [facility] [place] [address] [place], Nurse [facility] [address] [facility] [place] [address] 09/03/2023 3:00 PM EST Scheduled Telephone [facility], [facility] [address] [facility] [place] [address] Mery Calderon RDN [address] [facility] [place] [address] 09/11/2023 8:30 AM EST Home Visit [facility], [facility] [address] [facility] [place] [address] Love Stevens, ANNE MARIE [address] [facility] [address] 09/16/2023 11:00 AM EDT Telemedicine Pharmacy, [facility] [place] [address] [facility] [place] [address] Pharmacist1, [facility] [address] [facility] [place] [address] 10/06/2023 2:10 PM EDT Office Visit Family Medicine [address] [place] [phone] Bárbara Rios[address] [place] [address] 10/21/2023 2:40 PM EDT Office Visit Nephrology [address] [place] [address] Shivani Magallon MD [address] [place] [address] 10/27/2023 8:30 AM EDT Office Visit Sleep Disorders Ctr [facility] [place] [address] [place] [phone] Lindsey Sheikh CRNP [address] [place] [address] 12/31/2023 11:45 AM EDT Hospital Encounter ENDO OSSC, Endoscopy Room [facility] [address] [place] [phone] José Miguel Sifuentes MD [address] [place] [address] 12/31/2023 11:45 AM EDT - 12/31/2023 12:15 PM EDT Surgery ENDO OSS, Endoscopy Room [facility] [address] [place] [phone] José Miguel Sifuentes MD [address] [place] [address] COLONOSCOPY FLEXIBLE PROXIMAL DIAGNOSTIC 01/14/2024 12:30 PM EDT Cardiac Studies Cardiac Studies [address] [place] [address] 08/08/2024 9:30 AM EST Nurse Only Ancillary [address] [place] [address] [place], Nurse [address] [place] [address] Scheduled Procedures Name Priority Associated Diagnoses Date/Ti [...] 12/17/2022, Additional history exists GFR 01/27/2024 07/29/2023, 12/01/2023, 04/27/2023, Additional history exists Albumin/Creatinine Ratio 06/11/2024 [...] this encounter Medical Devices Implanted Type Area Operating Theatre Technician Device Identifier Shelf Expiration Date Model / Serial / Lot Lens Intraoc 21.0 - [id number] - [id number] Implanted:Qty: 1 on 01/22/2017 by Cheko Mcnamara MD at OR [facility] Right: Eye [employer] 08/05/2021 [id number] / [id number] / [id number] Lens Intraoc 21.5 - [id number] - [id number] Implanted:Qty: 1 on 02/03/2017 by Cheko Mcnamara MD at OR [facility] Left: Eye [employer] LOMB 09/02/2021 [id number] / [id number] / [id number] documented as of this encounter Advance Directives [...] were consensually agreed upon. Care Teams Technical Solutions Engineer Relationship Specialty Start Date End Date Bárbara Rios DO [address] [place] [address] [place] [phone] PCP - General Internal Medicine 08/16/21 documented as of this encounter
--- OUTSIDE RECORDS SUMMARY | 2023-10-20 22:57 | External Medical Summary ---
Author Name Unknown Address Unknown Organization K01:LABORATORY [facility] - [address] [place] [address] Laboratory Report Ordering Provider Test Date Status EVERTON MORRISON 08/24/2023 14:21:12 Final Observation Date Value Abnormality Reference (Units ) Status TSH 08/24/2023 14:21:12 1.37 0.27-4.20 (uIU/mL) Final Performing Location LABORATORY [facility] - [address] [place] [address]
--- OUTSIDE RECORDS SUMMARY | 2023-10-20 22:57 | External Medical Summary | Summary of Care ---
Author Name Unknown Organization [facility] Address [address] [facility] [place] [address] Phone [phone] Care Team Providers Care Poiser Balance Name Role Phone Bárbara Rios Primary Care Provider [phone] Reason for Visit * Reason Onset Date Comments [facility]: Maintenance 08/24/2023 Encounter Details Date Type Department Care Team (Late st Contact Info) Description 08/24/2023 9:15 AM EST Scheduled Telephone [facility], [facility] [email or web address] [place] [address] Coordinator, [facility] [address] [place] [address] Allergies Active Allergy Reactions Criticality Noted Date [...] 32 UNITS WITH DINNER PLUS CORRECTION PER [facility] OR DIRECTED UP TO 120 [...] a week. 9 mL 3 04/09/2023 Active Odlte-6-nnol Ethyl Esters 1 GM Oral Capsule (Lovaza) [...] in the Comments) Remote Patient Monitoring Vendor: [email or web address] Device(s): Connected Scale Self - Management Plan [...] yrs 01/04/2018,08/03/2017,07/03 Pneumococcal Conjugate Vacci ne, 20-valent ([id number]) 06/09/2022 Pneumococcal Polysaccharide PPV23 (Pneumovax) 03/06/2020 Seasonal [...] [facility] Telephonic Nurse Follow-Up Call [facility] Subprogram: Focused Care Management (3-9 [...] "LEFT VENTRICULAR EJECTION FRACTION" Remote Patient Monitoring: [facility] Scale: Oxygen Needs: NO supplemental oxygen needs [...] so by a Provider. Disposition: Routed to [facility] and/or [facility] Team for further advice and Follow up call scheduled for tomorrow with CAR RENTAL CLERK Tire Trimmer Hand Future Visits Scheduled: Future Appointments-next 60 days Date/Time Provider Specialty Dept Phone 09/03/2023 3:00 PM Mery Calderon RDN [facility] [phone] 09/11/2023 8:30 AM Love Stevens RN [facility] [phone] 09/16/2023 11:00 AM Pharmacist1, [facility] [phone] 10/06/2023 2:10 PM (Arrive by 1:55 PM) Bárbara Rios DO Family Medicine [phone] 10/21/2023 2:40 PM (Arrive by 2:25 PM) Shivani Magallon MD Nephrology [phone] 10/27/2023 8:30 AM (Arrive by 8:15 AM) Lindsey Sheikh CRNP Sleep Disorders [phone] 01/14/2024 12:30 PM TILE LAYER HELPER [facility] Cardiac Studies [phone] 08/08/2024 9:30 AM Osito Nurse Annual Wellness Ancillary [phone] Parris Francis, RN documented in this encounter Plan of Treatment Upcoming Encounters Date Type Department Care Team (Latest Contact Info) Description 08/25/2023 9:15 AM EST Scheduled Telephone [facility], [facility] [address] [place] [address] Coordinator, [facility] [address] [place] [address] 09/03/2023 3:00 PM EST Scheduled Telephone [facility], [facility] [address] [facility] [place] [address] Mery Calderon RDN [address] [facility] [place] [address] 09/11/2023 8:30 AM EST Home Visit [facility], [facility] [address] [place] [address] Love Stevens, RN [address] [facility] [place] [address] 09/16/2023 11:00 AM EDT Telemedicine Pharmacy, [address] [place] [address] Pharmacist1, [facility] [address] [place] [address] 10/06/2023 2:10 PM EDT Office Visit Family Medicine [address] [place] [phone] Bárbara Rios[address] [place] [address] 10/21/2023 2:40 PM EDT Office Visit Nephrology [address] [place] [address] Shivani Magallon MD [address] [place] [address] 10/27/2023 8:30 AM EDT Office Visit Sleep Disorders Ctr [facility] [address] [place] [phone] Lindsey Sheikh CRNP [address] [place] [address] 12/31/2023 11:45 AM EDT Hospital Encounter ENDO OSSC, Endoscopy Room [facility] [address] [place] [phone] José Miguel Sifuentes MD [address] [place] [address] 12/31/2023 11:45 AM EDT - 12/31/2023 12:15 PM EDT Surgery ENDO OSSC, Endoscopy Room [facility] [address] [place] [phone] José Miguel Sifuentes MD [address] [place] [address] COLONOSCOPY FLEXIBLE PROXIMAL DIAGNOSTIC 01/14/2024 12:30 PM EDT Cardiac Studies Cardiac Studies [address] [place] [address] 08/08/2024 9:30 AM EST Nurse Only Ancillary [address] [place] [address] [place], Nurse Annual [address] [place] [address] Scheduled Procedures Name Priority Associated Diagnoses Date/Ti [...] this encounter Medical Devices Implanted Type Area Belt Knife Feeder Device Identifier Shelf Expiration Date Model / Serial / Lot Lens Intraoc 21.0 - [id number] - [id number] Implanted:Qty: 1 on 01/22/2017 by Cheko Mcnamara MD at OR [facility] Right: Eye BAUSCH & LOMB 08/05/2021 [id number] / [id number] / [id number] Lens Intraoc 21.5 - [id number] - [id number] Implanted:Qty: 1 on 02/03/2017 by Cheko Mcnamara MD at OR [facility] Left: Eye BAUSCH & LOMB 09/02/2021 [id number] / [id number] / [id number] documented as of this encounter Advance Directives [...] and were consensually agreed upon. Care Teams Poiser Balance Relationship Specialty Start Date End Date Bárbara Rios DO [address] [place] [address] [place] [address] PCP - General Internal Medicine 08/16/21 documented as of this encounter
--- OUTSIDE RECORDS SUMMARY | 2023-10-20 22:57 | External Medical Summary ---
Author Name Unknown Address Unknown Organization K01:[facility] [place] [address] [facility] Meghan. Cherie [place] [address] Laboratory Report Ordering Provider Test Date Status EVERTON MORRISON 08/24/2023 14:21:12 Final Observation Date Value Abnormality Reference (Units ) Status BUN 08/24/2023 14:21:12 45 Above high normal 6-20 (mg/dL) Final Creatinine 08/24/2023 14:21:12 2.5 Above high normal 0.6-1.2 (mg/dL) Final Glomerular filtration rate/1.73 sq M.predicted [Volume Rate/Area] in Serum, Plasma or Blood by Creatinine-based formula (CKD-EPI) 08/24/2023 14:21:12 29 Below low normal >=60 (mL/min) Final eGFR is calculated based on the CKD-EPI 2020 equation SODIUM 08/24/2023 14:21:12 139 135-146 (m mol/L) Final Potassium 08/24/2023 14:21:12 4.1 3.5-5.1 (m mol/L) Final Cl 08/24/2023 14:21:12 103 98-107 (mm ol/L) Final CO2 08/24/2023 14:21:12 23 22-32 (mmo l/L) Final Anion gap 08/24/2023 14:21:12 13 7-15 (mmol /L) Final Glucose 08/24/2023 14:21:12 130 Above high normal 70 -120 (mg/dL) Final Albumin 08/24/2023 14:21:12 3.8 3.8-5.0 (g /dL) Final AST (Aspartate aminotransferase) 08/24/2023 14:21:12 61 Above high normal 10-50 (U/L) Final Alk Phos 08/24/2023 14:21:12 87 35-130 (U/ L) Final Bilirubin, Total 08/24/2023 14:21:12 0.6 <=1 .2 (mg/dL) Final Calcium 08/24/2023 14:21:12 8.7 8.4-10.2 ( mg/dL) Final Protein 08/24/2023 14:21:12 6.9 6.0-8.3 (g /dL) Final ALT (Alanine aminotransferase) 08/24/2023 14:21:12 79 Above high normal 10-50 (U/L) Final Performing Location [facility] [place] Suha Christianson. [facility] [address]
--- OUTSIDE RECORDS SUMMARY | 2023-10-20 22:57 | External Medical Summary | Summary of Care ---
Author Name Unknown Organization [facility] Address [address] [facility] [place] [address] Phone [phone] Care Team Providers Care Seed Sorter Name Role Phone Bárbara Rios Primary Care Provider [phone] Reason for Visit * Reason Onset Date Comments [facility]: Maintenance 08/24/2023 Encounter Details Date Type Department Care Team (Latest Contact Info) Description 08/24/2023 9:15 AM EST Scheduled Telephone [facility], [facility] [address] [address] Coordinator, [facility] [place] [address] [place] [address] Hypertensive heart and kidney disease with chronic [...] a week. 9 mL 3 04/09/2023 Active Ufoet-0-pqji Ethyl Esters 1 GM Oral Capsule (Lovaza) [...] 120 mg IV PUSH ONCE 08/24/2023 08/25/2023 Active potassium chloride ER tab 40 mEqIndications:Hyperten sive 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 chronic kidney disease (HCC) 40 mEq OR ONCE 08/24/2023 08/25/2023 Active documented as of this encounter [...] in the Comments) Remote Patient Monitoring Vendor: [email or web address] Device(s): Connected Scale Self - Management Plan Double dose of Torsemide for 3 days Exacerbation Plan BMP Chest X-Ray Additional Comments: Recommended using double torsemide for 3 days in a row, rather than 1 day like he has been doing Continue using [email or web address] scale Low sodium diet Chronic kidney disease, [...] yrs 01/04/2018,08/03/2017,07/03 Pneumococcal Conjugate Vacci ne, 20-valent ([id number]) 06/09/2022 Pneumococcal Polysaccharide PPV23 (Pneumovax) 03/06/2020 Seasonal [...] Addendum Note - Prince Sullivan MD - 08/24/2023 1:38 PM ESTAddended by: PRINCE SULLIVAN on: 08/24/2023 01:38 PM Modules accepted: Orders * Telephone Encounter - Prince Sullivan MD - 08/24/2023 1:32 PM EST I collaborated w/ Love Christiansen during her visit. Wt 294 lb(up from 293 lb) despite oral DTP (torsemide 80 am, 40 pm) Findings c/w ascites 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) (Primary) - Furosemide (Lasix) inj 120 mg - potassium chloride ER tab 40 mEq - CBC WITH WBC DIFFERENTIAL AND ANEMIA REFLEX WORKUP; Future; Expected date: 08/24/2023 - COMPREHENSIVE METABOLIC PANEL; Future; Expected date: 08/24/2023 Leave iv in Return visit tomorrow * Telephone Encounter - Parris Francis RN - 08/24/2023 12:10 PM EST Communication Note Name: Tony Delong Situation: 63 yo male in [place] Background: HF, CKD, DM 2, CAD, COPD Assessment: Pt called to report that he is [...] baseline. He denies cough with sputum and has not been taking Mucinex. SPO2 97% P 67 at time of call taken on his watch. He has very little edema of BLE- leaves a slight indentation. Denies chest pain. Denies feeling lightheaded or dizzy. Per his - he looked fatigued and his color was ashen yesterday. Color is normal today. He does not c/o orthopnea, he has a hospital style bed and keeps the head of the bed elevated 5-6 inches, his norm. He admits to not being perfect, but he does adhere to the fluid and sodium restrictionsto the best of his ability. Recommendation: Per Dr Sullivan: Acute visit today Anticipate iv lasix Care team availability: TT- Jeffery ARCINIEGA- will see the pt today and will call him with a time. Added pt to her schedulefor today. Outgoing call to pt to notify him of same. Parris CHAMBERLAIN, RN [facility] Intake Triage Coordinator [phone] * Telephone Encounter - Prince Sullivan MD - 08/24/2023 11:42 AM EST Acute visit today Anticipate iv lasix * Telephone Encounter - Parris Francis RN - 08/24/2023 11:01 AM EST Images from the original note were not included. [facility] Telephonic Nurse Follow-Up Call [facility] Subprogram: Focused Care Management (3-9 months) [...] EJECTION FRACTION" Remote Patient Monitoring: [facility] Scale: Oxygen Needs: [...] so by a Provider. Disposition: Routed to [facility] and/or [facility] Care Team for further advice and Follow up call scheduled for tomorrow with [facility] Admission Nurse Coordinator Future Visits Scheduled: Future Appointments-next 60 days Date/Time Provider Specialty Dept Phone 09/03/2023 3:00 PM Mery Calderon RDN [facility] at Home [phone] 09/11/2023 8:30 AM Love Stevens RN [facility] [phone] 09/16/2023 11:00 AM Pharmacist1, [facility] [phone] 10/06/2023 2:10 PM (Arrive by 1:55 PM) Bárbara Rios DO Family Medicine [phone] 10/21/2023 2:40 PM (Arrive by 2:25 PM) Shivani Magallon MD Nephrology [phone] 10/27/2023 8:30 AM (Arrive by 8:15 AM) Lindsey Sheikh CRNP Sleep Disorders [phone] 01/14/2024 12:30 PM CHICKEN CLEANER [facility] Cardiac Studies [phone] 08/08/2024 9:30 AM Nurse Osito Annual Wellness Ancillary [phone] Parris Francis, RN documented in this encounter Plan of Treatment Upcoming Encounters Date Type Department Care Team (Latest Contact Info) Description 08/24/2023 2:30 PM EST Home Visit [facility], [facility] [address] [place] [address] Love Stevens, RN [address] [place] [address] 08/25/2023 9:15 AM EST Scheduled Telephone [facility], [facility] [address] [place] [address] Coordinator, [place] [address] [address] [place] [address] 08/26/2023 9:15 AM EST Scheduled Telephone [facility], [facility] [address] [place] [address] Coordinator, [facility] [place] [address] [place] [address] 09/03/2023 3:00 PM EST Scheduled Telephone [facility], [facility] [address] [facility] [place] [address] Mery Calderon RDN [address] [facility] [place] [address] 09/11/2023 8:30 AM EST Home Visit [facility], [facility] [address] [place] [address] Love Stevens, RN [address] [place] [address] 09/16/2023 11:00 AM EDT Telemedicine Pharmacy, [place] [address] [address] [place] [address] Pharmacist1, [facility] [address] [place] [address] 10/06/2023 2:10 PM EDT Office Visit Family Medicine [address] [place] [phone] Bárbara Rios[address] [place] [address] 10/21/2023 2:40 PM EDT Office Visit Nephrology [address] [place] [address] Shivani Magallon MD [address] [place] [address] 10/27/2023 8:30 AM EDT Office Visit Sleep Disorders Ctr [facility] [address] [place] [phone] Lindsey Sheikh CRNP [address] [place] [address] 12/31/2023 11:45 AM EDT Hospital Encounter ENDO OSSC, Endoscopy Room [facility] [address] [place] [phone] José Miguel Sifuentes MD [address] [place] [address] 12/31/2023 11:45 AM EDT - 12/31/2023 12:15 PM EDT Surgery ENDO OSSC, Endoscopy Room [facility] [address] [place] [phone] José Miguel Sifuentes MD [address] [place] [address] COLONOSCOPY FLEXIBLE PROXIMAL DIAGNOSTIC 01/14/2024 12:30 PM EDT Cardiac Studies Cardiac Studies [address] [place] [address] 08/08/2024 9:30 AM EST Nurse Only Ancillary [address] [place] [address] [place], Nurse Annual [address] [place] [address] Scheduled Orders Name Type Priority Associated Diagnoses Orde r Schedule CBC WITH WBC DIFFERENTIAL AND ANEMIA REFLEX WORKUP Lab STAT 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) Expected: 08/24/2023 (Approximate), Expires: 08/24/2024 COMPREHENSIVE METABOLIC PANEL Lab STAT 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) Expected: 08/24/2023 (Approximate), Expires: 08/23/2024 Scheduled Procedures Name Priority Associated Diagnoses Date/Ti [...] 12/17/2022, Additional history exists GFR 01/27/2024 07/29/2023, 1201/2023, 04/27/2023, Additional history exists Albumin/Creatinine Ratio 06/11/2024 [...] this encounter Medical Devices Implanted Type Area Stone Mason Device Identifier Shelf Expiration Date Model / Serial / Lot Lens Intraoc 21.0 - [id number] - [id number] Implanted:Qty: 1 on 01/22/2017 by Cheko Mcnamara MD at OR [facility] Right: Eye BAUSCH & LOMB 08/05/2021 [id number] / [id number] / [id number] Lens Intraoc 21.5 - [id number] - [id number] Implanted:Qty: 1 on 02/03/2017 by Cheko Mcnamara MD at OR [facility] Left: Eye BAUSCH & LOMB 09/02/2021 [id number] / [id number] / [id number] documented as of this encounter Visit Diagnoses [...] and were consensually agreed upon. Care Teams Seed Sorter Relationship Specialty Start Date End Date Bárbara Rios DO [address] [place] [address] [place] [phone] PCP - General Internal Medicine 08/16/21 documented as of this encounter
--- OUTSIDE RECORDS SUMMARY | 2023-10-20 22:57 | External Medical Summary | Summary of Care ---
Author Name Unknown Organization [facility] Address [address] [facility] [place] [address] Phone [phone] Care Team Providers Care Precision Dyer Name Role Phone Bárbara Rios Primary Care Provider [phone] Reason for Visit * Reason Onset Date Comments [facility]: Maintenance 08/23/2023 Encounter Details Date Type Department Care Team (Late st Contact Info) Description 08/23/2023 8:30 AM EST Scheduled Telephone [facility], [facility] [address] [facility] [place] [address] [facility], Nurse [facility] 132 [facility] [place] [address] Allergies Active Allergy Reactions Criticality Noted Date Comments Other Allergy (See Comments) Rash Low 10/13/2022 1+ cocamidopropyl betaine Sglt2 Inhibitors Other (Please comment) High 09/04/2020 Genital infection Sulfa Antibiotics Rash 10/15/2016 documented as of this encounter (statuses as of 08/23/2023) Medications Medication Sig Dispensed Refills Start Date [...] 32 UNITS WITH DINNER PLUS CORRECTION PER [facility] OR DIRECTED UP TO [...] a week. 9 mL 3 04/09/2023 Active Iklns-7-npqo Ethyl Esters 1 GM Oral Capsule (Lovaza) [...] as of this encounter (statuses as of 08/23/2023) Active Problems Problem Noted Date Diagnosed Date [...] in the Comments) Remote Patient Monitoring Vendor: [employer] Device(s): Connected Scale Self - Management Plan [...] as of this encounter (statuses as of 08/23/2023) Resolved Problems Problem Noted Date Diagnosed Date [...] as of this encounter (statuses as of 08/23/2023) Immunizations Name Administration Dates Next Due COVID-19 mRNA, LNP-s, No Pre serve, 2-Dose Series (Moderna) 12/10/2020,11/12/2020 Hepatitis B, 20+ yrs 01/04/2018,08/03/2017,07/03 Pneumococcal Conjugate Vacci ne, 20-valent (Kbzevuy93) 06/09/2022 Pneumococcal Polysaccharide PPV23 (Pneumovax) 03/06/2020 Seasonal [...] Telephone Encounter - Carolina Carey RN - 08/23/2023 11:10 AM EST Images from the original note were not included. [facility] Telephonic Nurse Follow-Up Call [facility] Subprogram: Focused Care Management (3-9 months) Follow Up Call Type: Weekend Call Acute issue requiring follow-up call: Heart Failure Exacerbation DTP started on Thursday Objective: 08/21/2023 12:29 PM 08/12/2023 1:40 PM [...] "LEFT VENTRICULAR EJECTION FRACTION" Remote Patient Monitoring: [facility] Scale: Oxygen Needs: NO supplemental oxygen needs identified DME Needs: NO DME needs identified Medications: Current DTP: Double dose of Torsemide for 3 days Subjective: Condition Status: [facility] Current Concerns: Left message requesting call back [place]: [place] [facility] [place]or [facility] Care Team for further advice and Follow up call scheduled for tomorrow with [facility] Sew[facility] Machine Operator And Tender Future Visits Scheduled: Future Appointments-next 60 days Date/Time Provider Specialty Dept Phone 09/03/2023 3:00 PM Mery Calderon RDN [facility] [phone] 09/11/2023 8:30 AM Love Stevens, ANNE MARIE [facility] [phone] 09/16/2023 11:00 AM Pharmacist1, [facility] [phone] 10/06/2023 2:10 PM (Arrive by 1:55 PM) Bárbara Rios DO Family Medicine [phone] 10/21/2023 2:40 PM (Arrive by 2:25 PM) Shivani Magallon MD Nephrology [phone] 10/27/2023 8:30 AM (Arrive by 8:15 AM) Lindsey Sheikh CRNP Sleep Disorders [phone] 01/14/2024 12:30 PM [facility] Cardiac Studies [phone] 08/08/2024 9:30 AM Osito Nurse Annual Wellness Ancillary [phone] Carolina Carey, ANNE MARIE documented in this encounter Plan of Treatment Upcoming Encounters Date Type Department Care Team (Latest Contact Info) Description 08/24/2023 9:15 AM EST Scheduled Telephone [facility] [place], [address] [place] [address] Coordinator, [facility] [address] [place] [address] 09/03/2023 3:00 PM EST Scheduled Telephone [facility], [facility] [address] [facility] [place] [address] Mery Calderon, RDN [address] [facility] [place] [address] 09/11/2023 8:30 AM EST Home Visit [facility], [facility] [address] [place] [address] Love Stevens RN [address] [place] [address] 09/16/2023 11:00 AM EDT Telemedicine Pharmacy, [facility] [address] [facility] [place] [address] Pharmacist1, [facility] [address] [facility] [place] [address] 10/06/2023 2:10 PM EDT Office Visit Family Medicine [address] [place] [phone] B[address] R[address] [place] [address] 10/21/2023 2:40 PM EDT Office Visit Nephrology [address] [place] [address] Shivani Magallon MD 200 [facility] [place] [address] 10/27/2023 8:30 AM EDT Office Visit Sleep Disorders Ctr [facility] [address] [place] [phone] Lindsey Sheikh CRNP [address] [place] [address] 12/31/2023 11:45 AM EDT Hospital Encounter ENDO OSSC, Endoscopy Room [facility] [address] [place] [phone] José Miguel Sifuentes MD [address] [place] [address] 12/31/2023 11:45 AM EDT - 12/31/2023 12:15 PM EDT Surgery ENDO [facility], Endoscopy Room [facility] [address] [place] [phone] José Miguel Sifuentes MD [address] [place] [address] COLONOSCOPY FLEXIBLE PROXIMAL DIAGNOSTIC 01/14/2024 12:30 PM EDT Cardiac Studies Cardiac Studies [address] [place] [address] 08/08/2024 9:30 AM EST Nurse Only Ancillary [address] [place] [address] [place], Nurse Annual [address] [place] [address] Scheduled Procedures Name Priority Associated Diagnoses Date/Ti [...] 12/17/2022, Additional history exists GFR 01/27/2024 07/29/2023, 01/2023, 04/27/2023, Additional history exists Albumin/Creatinine Ratio [...] this encounter Medical Devices Implanted Type Area Mailer Apprentice Device Identifier Shelf Expiration Date Model / Serial / Lot Lens Intraoc 21.0 - [id number] - [id number] Implanted:Qty: 1 on 01/22/2017 by Cheko Mcnamara MD at OR [facility] Right: Eye BAUSCH & LOMB 08/05/2021 [id number] / [id number] / [id number] Lens Intraoc 21.5 - [id number] - [id number] Implanted:Qty: 1 on 02/03/2017 by Cheko Mcnamara MD at OR [facility] Left: Eye BAUSCH & LOMB 09/02/2021 [id number] / [id number] / [id number] documented as of this encounter Advance Directives [...] and were consensually agreed upon. Care Teams Precision Dyer Relationship Specialty Start Date End Date Bárbara Rios DO [address] [place] [address] [place] [address] PCP - General Internal Medicine 08/16/21 documented as of this encounter
--- OUTSIDE RECORDS SUMMARY | 2023-10-20 22:57 | External Medical Summary ---
Author Name Unknown Address Unknown Organization K01:[facility] [place] [address] [facility] Meghan. [place] [address] Laboratory Report Ordering Provider Test Date Status EVERTON MORRISON 08/24/2023 14:21:12 Final Observation Date Value Abnormality Reference (Units ) Status Ferritin 08/24/2023 14:21:12 181 30-400 (ng /mL) Final Performing Location [facility] [place] [address] [place] [address]
--- OUTSIDE RECORDS SUMMARY | 2023-10-20 22:57 | External Medical Summary | Summary of Care ---
Author Name Unknown Organization [facility] Address [address] [place] [address] Phone [phone] Care Team Providers Care Clicker Operator Name Role Phone Bárbara Rios Primary Care Provider Reason for Visit * Reason Onset Date Comments Appointment 08/21/2023 Encounter Details Date Type Department Care Team (Late st Contact Info) Description 08/21/2023 Telephone [facility], [facility] [place] [address] Services, Scheduling [address] [place] [address] Appointment (/) Allergies Active Allergy Reactions Criticality Noted Date Comments Other Allergy (See Comments) Rash Low 10/13/2022 1+ cocamidopropyl betaine Sglt2 Inhibitors Other (Please comment) High 09/04/2020 Genital infection Sulfa Antibiotics Rash 10/15/2016 documented as of this encounter (statuses as of 08/21/2023) Medications Medication Sig Dispensed Refills Start Date [...] 32 UNITS WITH DINNER PLUS CORRECTION PER [facility] OR DIRECTED UP TO 120 UNITS [...] a week. 9 mL 3 04/09/2023 Active Hnvfz-9-jakw Ethyl Esters 1 GM Oral Capsule (Lovaza) [...] as of this encounter (statuses as of 08/21/2023) Active Problems Problem Noted Date Diagnosed Date [...] in the Comments) Remote Patient Monitoring Vendor: [employer] Device(s): Connected Scale Self - Management Plan [...] as of this encounter (statuses as of 08/21/2023) Resolved Problems Problem Noted Date Diagnosed Date [...] as of this encounter (statuses as of 08/21/2023) Immunizations Name Administration Dates Next Due COVID-19 mRNA, LNP-s, No Pre serve, 2-Dose Series (Moderna) 12/10/2020,11/12/2020 Hepatitis B, 20+ yrs 01/04/2018,08/03/2017,07/03 Pneumococcal Conjugate Vacci ne, 20-valent ([id number]) 06/09/2022 Pneumococcal Polysaccharide PPV23 (Pneumovax) 03/06/2020 Seasonal [...] encounter Miscellaneous Notes * Telephone Encounter - Violette Johnson OSA - 08/21/2023 1:01 PM EST Request for phone calls this weekend d/t starting DTP today x 3 days documented in this encounter Plan of Treatment Upcoming Encounters Date Type Department Care Team (Latest Contact Info) Description 08/22/2023 4:00 PM EST Scheduled Telephone [facility], [facility] [address] [facility] [place] [address] [facility], Nurse [address] [place] [address] 08/23/2023 8:30 AM EST Scheduled Telephone [facility], [facility] [address] [facility] [place] [address] [facility], Nurse [address] [place] [address] 09/03/2023 3:00 PM EST Scheduled Telephone [facility], [facility] [address] [facility] [place] [address] Mery Calderon RDN [address] [facility] [place] [address] 09/16/2023 11:00 AM EDT Telemedicine Pharmacy, Susan Palac[facility] [place] [address] [place] [address] Pharmacist1, [facility] [address] [place] [address] 10/06/2023 2:10 PM EDT Office Visit Family Medicine [address] [place] [phone] Bárbara Rios[address] [place] [address] 10/27/2023 8:30 AM EDT Office Visit [facility] Disorders Ctr [facility] [employer] [address] [place] [phone] Lindsey Sheikh CRNP [address] [place] [address] 12/31/2023 11:45 AM EDT Hospital Encounter ENDO OSS[facility], Endoscopy Room [facility] [address] [place] [phone] José Miguel Sifuentes MD [address] [place] [address] 12/31/2023 11:45 AM EDT - 12/31/2023 12:15 PM EDT Surgery ENDO [facility], Endoscopy Room [facility] [address] [place] [phone] José Miguel Sifuentes MD [address] [place] [address] COLONOSCOPY FLEXIBLE PROXIMAL DIAGNOSTIC 01/14/2024 12:30 PM EDT Cardiac Studies Cardiac Studies [address] [place] [address] 02/29/2024 3:20 PM EDT Office Visit Nephrology [address] [place] [address] Shivani Magallon MD [address] [place] [address] 08/08/2024 9:30 AM EST Nurse Only Ancillary Portia Staley[address] [place] [address] [employer], Nurse [address] [place] [address] Scheduled Procedures Name Priority Associated Diagnoses Date/Ti [...] ASSESSMENT COMPLETED IN PAST YEAR FOR COPD 08/05/2024 08/05/2023 Arreola's Esophagus Surveilance 06/16/2025 06/16/2022, 06/16/2022, 03/20/2022, [...] this encounter Medical Devices Implanted Type Area Muffle Operator Device Identifier Shelf Expiration Date Model / Serial / Lot Lens Intraoc 21.0 - [id number] - [id number] Implanted:Qty: 1 on 01/22/2017 by Cheko Mcnamara MD at OR [facility] Right: Eye [employer]OM[employer] 08/05/2021 [id number] / [id number] / [id number] Lens Intraoc 21.5 - [id number] - [id number] Implanted:Qty: 1 on 02/03/2017 by Cheko Mcnamara MD at OR [facility] Left: Eye BAUSCH [employer] LOMB 09/02/2021 [id number] / [id number] / [id number] documented as of this encounter Advance Directives [...] and were consensually agreed upon. Care Teams Clicker Operator Relationship Specialty Start Date End Date Bárbara Rios DO [address] [place] [address] [place] [address] PCP - General Internal Medicine 08/16/21 documented as of this encounter
--- OUTSIDE RECORDS SUMMARY | 2023-10-20 22:57 | External Medical Summary | Summary of Care ---
Author Name Unknown Organization [facility] Address [address] [facility] [place] [address] Phone [phone] Care Team Providers Care Manager Of Data Name Role Phone Bárbara Rios Primary Care Provider [phone] Reason for Visit * Reason Onset Date Comments [facility]: Maintenance 08/24/2023 Encounter Details Date Type Department Care Team (Late st Contact Info) Description 08/24/2023 9:15 AM EST Scheduled Telephone [facility], [facility] [address] [place] [address] Coordinator, [facility] [address] [place] [address] Allergies Active Allergy Reactions Criticality Noted Date [...] UNITS WITH DINNER PLUS CORRECTION PER [facility] OR DIRECTED UP TO 120 [...] a week. 9 mL 3 04/09/2023 Active Xaxhc-7-gxav Ethyl Esters 1 GM Oral Capsule (Lovaza) [...] in the Comments) Remote Patient Monitoring Vendor: [employer] Device(s): Connected Scale Self - Management Plan [...] yrs 01/04/2018,08/03/2017,07/03 Pneumococcal Conjugate Vacci ne, 20-valent ([id number]) 06/09/2022 Pneumococcal Polysaccharide PPV23 (Pneumovax) 03/06/2020 Seasonal [...] Telephone Encounter - Josh Sullivan MD - 08/24/2023 11:42 AM EST Acute visit today Anticipate iv lasix * Telephone Encounter - Parris Francis RN - 08/24/2023 11:01 AM EST Images from the original note were not included. [facility] Telephonic Nurse Follow-Up Call [facility] Subprogram: Focused Care Management (3-9 [...] "LEFT VENTRICULAR EJECTION FRACTION" Remote Patient Monitoring: [facility] Scale: Oxygen Needs: NO supplemental [...] so by a Provider. Disposition: Routed to [facility] and/or [facility] at Home Care Team for further advice and Follow up call scheduled for tomorrow with PUBLIC INTERVIEWER [employer] Agent [employer] Future Visits Scheduled: Future Appointments-next 60 days Date/Time Provider Specialty Dept Phone 09/03/2023 3:00 PM Mery Calderon RDN [facility] [phone] 09/11/2023 8:30 AM Love Stevens, RN [facility] [phone] 09/16/2023 11:00 AM Pharmacist1, [facility] [phone] 10/06/2023 2:10 PM (Arrive by 1:55 PM) Bárbara Rios DO Family Medicine [phone] 10/21/2023 2:40 PM (Arrive by 2:25 PM) Shivani Magallon MD Nephrology [phone] 10/27/2023 8:30 AM (Arrive by 8:15 AM) Lindsey Sheikh CRNP Sleep Disorders [phone] 01/14/2024 12:30 PM DIRECTOR OF EMPLOYER SERVICES [facility] Cardiac Studies [phone] 08/08/2024 9:30 AM Osito Nurse Annual Wellness Ancillary [phone] Parris Francis, RN documented in this encounter Plan of Treatment Upcoming Encounters Date Type Department Care Team (Latest Contact Info) Description 08/25/2023 9:15 AM EST Scheduled Telephone [facility], [facility] [address] [facility] [place] [address] Coordinator, [facility] [address] [facility] [place] [address] 09/03/2023 3:00 PM EST Scheduled Telephone [facility], [facility] [address] [place] [address] Mery Calderon RDN [address] [place] [address] 09/11/2023 8:30 AM EST Home Visit [facility], [facility] [address] [facility] [place] [address] Love Stevens RN [address] [place] [address] 09/16/2023 11:00 AM EDT [facility] [address] [place] [address] Pharmacist1, [facility] [address] [place] [address] 10/06/2023 2:10 PM EDT Office Visit Family Medicine [address] [place] [phone] Bárbara Rios[address] [place] [address] 10/21/2023 2:40 PM EDT Office Visit Nephrology [address] [place] [address] Shivani Magallon MD [address] [place] [address] 10/27/2023 8:30 AM EDT Office Visit Sleep Disorders Ctr [facility] [place] [address] [place] [phone] Lindsey Sheikh CRNP [address] [place] [address] 12/31/2023 11:45 AM EDT Hospital Encounter ENDO OSSC, Endoscopy Room [facility] [address] [place] [phone] José Miguel Sifuentes MD [address] [place] [address] 12/31/2023 11:45 AM EDT - 12/31/2023 12:15 PM EDT Surgery ENDO [facility], Endoscopy Room [facility] [address] [place] [phone] José Miguel Sifuentes MD [address] [place] [address] COLONOSCOPY FLEXIBLE PROXIMAL DIAGNOSTIC 01/14/2024 12:30 PM EDT Cardiac Studies Cardiac Studies [address] [place] [address] 08/08/2024 9:30 AM EST Nurse Only Ancillary [address] [place] [address] [place], Nurse Annual [address] [place] [address] Scheduled Procedures Name Priority Associated Diagnoses Date/Ti [...] this encounter Medical Devices Implanted Type Area Internal Communications Specialist Device Identifier Shelf Expiration Date Model / Serial / Lot Lens Intraoc 21.0 - [id number] - [id number] Implanted:Qty: 1 on 01/22/2017 by Cheko Mcnamara MD at OR [facility] Right: Eye BAUSCH [employer] LOMB 08/05/2021 [id number] / [id number] / [id number] Lens Intraoc 21.5 - [id number] - [id number] Implanted:Qty: 1 on 02/03/2017 by Cheko Mcnamara MD at OR [facility] Left: Eye BAUSCH & LOMB 09/02/2021 [id number] / [id number] / [id number] documented as of this encounter Advance Directives [...] and were consensually agreed upon. Care Teams Manager Of Data Relationship Specialty Start Date End Date Bárbara Rios DO [address] [place] [address] [place] [phone] PCP - General Internal Medicine 08/16/21 documented as of this encounter
--- OUTSIDE RECORDS SUMMARY | 2023-10-20 22:57 | External Medical Summary | Summary of Care ---
Author Name Unknown Organization [facility] Address [address] [facility] [place] [address] Phone [phone] Care Team Providers Care Hoop Puncher Name Role Phone Bárbara Rios Primary Care Provider [phone] Reason for Visit * Reason Comments [facility]: Maintenance Encounter Details Date Type Department Care Team (Late st Contact Info) Description 08/21/2023 8:30 AM EST Home Visit [facility], [facility] [address] [place] [address] Love Stevens, RN [address] [place] [address] Allergies Active Allergy Reactions Criticality Noted Date [...] goal of less than 8.0% ([facility]) Inject 2 mg under the skin once a week. 9 mL 3 04/09/2023 Active Wtaqv-4-ofio Ethyl Esters 1 GM Oral Capsule (Lovaza) [...] in the Comments) Remote Patient Monitoring Vendor: [employer] Device(s): Connected Scale Self - Management Plan [...] yrs 01/04/2018,08/03/2017,07/03 Pneumococcal Conjugate Vacci ne, 20-valent ([id number]) 06/09/2022 Pneumococcal Polysaccharide PPV23 (Pneumovax) 03/06/2020 Seasonal [...] Sign Reading Time Taken Comments Blood Pressure 128/60 08/21/2023 12:29 PM EST Pulse 80 08/21/2023 12:29 PM EST Temperature 36.4 C (97.5 F) 08/21/2023 12:[address] Respiratory Rate 18 08/21/2023 12:29 PM EST Oxygen Saturation 97% 08/21/2023 12:29 PM EST Inhaled Oxygen Concentration - - Weight - - Height - - Body Mass Index - - documented in this encounter Progress Notes * Love Stevens RN - 08/21/2023 12:23 PM EST Images from the original note were not included. [facility] Test Developer Visit Date: 08/21/2023 Time: 12:23 PM Name: Tony Delong : 1960 Current Concerns: Patient seen for follow up- CKD4, CHF, COPD, [place], DM2 Weight trigger- increase of 3.3lbs/ 24 hours VS wnl Lungs clear but diminished Sob above baseline +Abd distention No LE edema noted Voiding without difficulty- doesn't feel as though he is urinating enough Bowels wnl- per report Appetite good Taking fluids- restriction TT to [facility]- start DTP x 3 day Problems/Symptoms: Review of Systems Constitutional: Negative. HENT: Negative. Eyes: Negative. Respiratory: Positive for shortness of breath. Cardiovascular: Negative. Gastrointestinal: Positive for abdominal distention. Endocrine: Negative. Genitourinary: Negative. Musculoskeletal: Negative. Allergic/Immunologic: Negative. Neurological: Negative. Hematological: Negative. Psychiatric/Behavioral: Negative. Physical Exam: BP 128/60 (BP Site: Left Arm, BP Position: Sitting, BP Cuff Size: Regular) | Pulse 80 | Temp 36.4 C (97.5 F) (Tympanic) | Resp 18 | SpO2 [...] and Affect: Mood normal. Behavior: Behavior normal. [facility] Completed this Visit: No. Routine visit Treatment/Plan: Start DTP today Low na diet Fluid restriction Continue medications as prescribed Keep all upcoming MD appointments Fall precautions BP/weight daily RN CM follow up in 4 weeks. Home Interventions Provided: Oral Medications: Diuretic Titration Protocol Started Patient Needs to Remember: Call [facility] with any medical concerns/ red flags Referrals Needed: N/a Follow Up: Is there cellular connectivity/connectivity in the home? Yes Does the patient have internet in the home? Yes Patient encouraged to call the intake phone number for all urgent but not emergent issues. Scheduled to follow up with patient in phone calls x 2 days. Love Du RN 08/21/2023 12:23 PM documented in this encounter Plan of Treatment Upcoming Encounters Date Type Department Care Team (Latest Contact Info) Description 08/25/2023 8:30 AM EST Home Visit [facility], [facility] [address] [place] [address] Love Stevens, RN [address] [place] [address] 08/25/2023 9:15 AM EST Scheduled Telephone [facility], [facility] [address] [place] [address] Coordinator, [facility] [address] [place] [address] 08/26/2023 9:15 AM EST Scheduled Telephone [facility], [facility] 132 [facility] [address] [place] [address] Coordinator, [place] [address] [address] [place] [address] 09/03/2023 3:00 PM EST Scheduled Telephone [facility], [facility] [address] [facility] [place] [address] Mery Calderon, RDN [address] [facility] [place] [address] 09/11/2023 8:30 AM EST Home Visit [facility], [facility] [address] [place] [address] Love Stevens, ANNE MARIE 132 [place] [address] 09/16/2023 11:00 AM EDT Telemedicine Pharmacy, [facility] 200 [facility] [place] [address] Pharmacist1, [facility] 200 [facility] [place] [address] 10/06/2023 2:10 PM EDT Office Visit Family Medicine [address] [place] [phone] Bárbara Rios[address] [place] [address] 10/21/2023 2:40 PM EDT Office Visit Nephrology [address] [place] [address] Shivani Magallon MD [address] [place] [address] 10/27/2023 8:30 AM EDT Office Visit Sleep Disorders Ctr [facility] [address] [place] [phone] Lindsey Sheikh CRNP [address] [place], [place] [address] 12/31/2023 11:45 AM EDT Hospital Encounter ENDO OSSC, Endoscopy Room [facility] [address] [place] [phone] José Miguel Sifuentes MD [address] [place] [address] 12/31/2023 11:45 AM EDT - 12/31/2023 12:15 PM EDT Surgery ENDO O[facility], Endoscopy Room [facility] [address] [place] [phone] José Miguel Sifuentes MD [address] [place] [address] COLONOSCOPY FLEXIBLE PROXIMAL DIAGNOSTIC 01/14/2024 12:30 PM EDT Cardiac Studies Cardiac Studies [address] [place] [address] 08/08/2024 9:30 AM EST Nurse Only Ancillary [address] [place] [address] [place], Nurse Annual [address] [place] [address] Scheduled Procedures Name Priority Associated Diagnoses Date/Ti [...] this encounter Medical Devices Implanted Type Area Binder Stripper Hand Device Identifier Shelf Expiration Date Model / Serial / Lot Lens Intraoc 21.0 - [id number] - [id number] Implanted:Qty: 1 on 01/22/2017 by Cheko Mcnamara MD at OR [facility] Right: Eye [employer]USCH [employer] LOMB 08/05/2021 [id number] / [id number] / [id number] Lens Intraoc 21.5 - [id number] - [id number] Implanted:Qty: 1 on 02/03/2017 by Cheko Mcnamara MD at OR [facility] Left: Eye BAUSCH & LOMB 09/02/2021 [id number] / [id number] / [id number] documented as of this encounter Advance Directives [...] and were consensually agreed upon. Care Teams Hoop Puncher Relationship Specialty Start Date End Date Bárbara Rios DO [address] [place] [address] [place] [address] PCP - General Internal Medicine 08/16/21 documented as of this encounter
--- OUTSIDE RECORDS SUMMARY | 2023-10-20 22:57 | External Medical Summary ---
Author Name Unknown Address Unknown Organization K01:[facility] [place] [address] [place] [address] Laboratory Report Ordering Provider Test Date Status EVERTON MORRISON 08/24/2023 14:21:12 Final Observation Date Value Abnormality Reference (Units ) Status Folic Acid 08/24/2023 14:21:12 7.0 >4.5 (ng/ mL) Final Performing Location [facility] [place] [address] [place] [address]
--- OUTSIDE RECORDS SUMMARY | 2023-10-20 22:57 | External Medical Summary | Summary of Care ---
Author Name Unknown Organization [facility] Address [address] [facility] [place] [address] Phone [phone] Care Team Providers Care Office Professional Name Role Phone Bárbara Rios Primary Care Provider [phone] Reason for Visit * Reason Onset Date Comments [facility]: Maintenance 08/24/2023 Encounter Details Date Type Department Care Team (Late st Contact Info) Description 08/24/2023 9:15 AM EST Scheduled Telephone [facility], [facility] [address] [place] [address] Coordinator, [facility] [address] [place] [address] Allergies Active Allergy Reactions Criticality Noted Date [...] 32 UNITS WITH DINNER PLUS CORRECTION PER [facility] OR DIRECTED UP TO [...] a week. 9 mL 3 04/09/2023 Active Onbou-5-usel Ethyl Esters 1 GM Oral Capsule (Lovaza) [...] in the Comments) Remote Patient Monitoring Vendor: ION Signature Device(s): Connected Scale Self - Management Plan [...] yrs 01/04/2018,08/03/2017,07/03 Pneumococcal Conjugate Vacci ne, 20-valent ([id number]) 06/09/2022 Pneumococcal Polysaccharide PPV23 (Pneumovax) 03/06/2020 Seasonal [...] Tony Delong Situation: 63 yo male in [place] Background: HF, CKD, DM 2, CAD, COPD [...] today Anticipate iv lasix Care team availability: DANN- Jeffery ARCINIEGA- will see the pt today and will call him with a time. Added pt to her schedulefor today. Outgoing call to pt to notify him of same. Parris CHAMBERLAIN, RN [facility] Intake Triage Coordinator [phone] * Telephone Encounter - Josh Sullivan MD - 08/24/2023 11:42 AM EST Acute visit today Anticipate iv lasix * Telephone Encounter - Parris Francis RN - 08/24/2023 11:01 AM EST Images from the original note were not included. [facility] Telephonic Nurse Follow-Up Call [facility] Subprogram: Focused Care Management (3-9 months) [...] "LEFT VENTRICULAR EJECTION FRACTION" Remote Patient Monitoring: [facility] Scale: Oxygen Needs: NO supplemental oxygen needs [...] so by a Provider. Disposition: Routed to [facility] and/or [facility] Care Team for further advice and Follow up call scheduled for tomorrow with TECHNICAL INSTRUCTOR Certified Paralegal Future Visits Scheduled: Future Appointments-next 60 days Date/Time Provider Specialty Dept Phone 09/03/2023 3:00 PM Mery Calderon RDN [facility] [phone] 09/11/2023 8:30 AM Love Stevens RN [facility] [phone] 09/16/2023 11:00 AM Pharmacist, [facility] [phone] 10/06/2023 2:10 PM (Arrive by 1:55 PM) Bárbara Rios DO Family Medicine [phone] 10/21/2023 2:40 PM (Arrive by 2:25 PM) Shivani Magallon MD Nephrology [phone] 10/27/2023 8:30 AM (Arrive by 8:15 AM) Lindsey Sheikh CRNP Sleep Disorders [phone] 01/14/2024 12:30 PM POUCH MAKING MACHINE OPERATOR [facility] Cardiac Studies [phone] 08/08/2024 9:30 AM Osito Nurse Annual Wellness Ancillary [phone] Parris Francis, RN documented in this encounter Plan of Treatment Upcoming Encounters Date Type Department Care Team (Latest Contact Info) Description 08/24/2023 2:30 PM EST Home Visit [facility], [facility] [address] [facility] [place] [address] Love Stevens, ANNE MARIE 132 [facility] [place] [address] 08/25/2023 9:15 AM EST Scheduled Telephone [facility], [facility] [address] [facility] [place] [address] Coordinator, [facility] [address] [facility] [place] [address] 09/03/2023 3:00 PM EST Scheduled Telephone [facility], [facility] [address] [facility] [place] [address] Mery Calderon RDN [address] [place] [address] 09/11/2023 8:30 AM EST Home Visit [facility], [facility] [place] [address] Love Stevens, RN [address] [place] [address] 09/16/2023 11:00 AM EDT Telemedicine Pharmacy, [facility] [address] [place] [address] Pharmacist1, [facility] [address] [facility] [place] [address] 10/06/2023 2:10 PM EDT Office Visit Family Medicine [address] [place] [phone] Bárbara Rios[address] [place] [address] 10/21/2023 2:40 PM EDT Office Visit Nephrology [address] [place] [address] Shivani Magallon MD [address] [place] [address] 10/27/2023 8:30 AM EDT Office Visit Sleep Disorders Ctr [facility] [address] [place] [phone] Lindsey Sheikh CRNP [address] [place] [address] 12/31/2023 11:45 AM EDT Hospital Encounter ENDO [facility], Endoscopy Room [facility] [address] [place] [phone] José Miguel Sifuentes MD [address] [place] [address] 12/31/2023 11:45 AM EDT - 12/31/2023 12:15 PM EDT Surgery ENDO [facility], Endoscopy Room [facility] [address] [place] [phone] José Miguel Sifuentes MD [address] [place] [address] COLONOSCOPY FLEXIBLE PROXIMAL DIAGNOSTIC 01/14/2024 12:30 PM EDT Cardiac Studies Cardiac Studies [address] [place] [address] 08/08/2024 9:30 AM EST Nurse Only Ancillary [address] [place] [address] [place], Nurse Annual [address] [place] [address] Scheduled Procedures Name Priority Associated Diagnoses Date/Ti [...] 05/29/2020, Additional history exists HbA1c 12/11/2023 06/11/2023, 2 01/2023, 12/17/2022, Additional history exists GFR 01/27/2024 07/29/2023, [...] this encounter Medical Devices Implanted Type Area Lapidary Apprentice Device Identifier Shelf Expiration Date Model / Serial / Lot Lens Intraoc 21.0 - [id number] - [id number] Implanted:Qty: 1 on 01/22/2017 by Cheko Mcnamara MD at OR [facility] Right: Eye [employer]OM[employer] 08/05/2021 [id number] / [id number] / [id number] Lens Intraoc 21.5 - [id number] - [id number] Implanted:Qty: 1 on 02/03/2017 by Cheko Mcnamara MD at OR [facility] Left: Eye [employer]OMB 09/02/2021 [id number] / [id number] / [id number] documented as of this encounter Advance Directives [...] and were consensually agreed upon. Care Teams Office Professional Relationship Specialty Start Date End Date Bárbara Rios DO [address] [place] [address] [place] [address] PCP - General Internal Medicine 08/16/21 documented as of this encounter
--- OUTSIDE RECORDS SUMMARY | 2023-10-20 22:57 | External Medical Summary | Summary of Care ---
Author Name Unknown Organization [facility] Address [address] [facility] [place] [address] Phone [phone] Care Team Providers Care Client Director Name Role Phone Bárbara Rios Primary Care Provider [phone] Reason for Visit * Reason Onset Date Comments [facility]: Maintenance 08/21/2023 Encounter Details Date Type Department Care Team (Late st Contact Info) Description 08/21/2023 Telephone [facility], [facility] [address] [facility] [place] [address] [facility], Nurse [facility] [address] [facility] [place] [address] [facility]: Maintenance Allergies Active Allergy [...] a week. 9 mL 3 04/09/2023 Active Rgwtl-0-mtsi Ethyl Esters 1 GM Oral Capsule (Lovaza) [...] in the Comments) Remote Patient Monitoring Vendor: [employer] Device(s): Connected Scale Self - Management Plan [...] yrs 01/04/2018,08/03/2017,07/03 Pneumococcal Conjugate Vacci ne, 20-valent ([id number]) 06/09/2022 Pneumococcal Polysaccharide PPV23 (Pneumovax) 03/06/2020 Seasonal [...] Telephone Encounter - Alexandra Mcgraw LPN - 08/21/2023 10:43 AM EST [facility] trigger for 3.3 lb weight increase in one day Pt has GAH HV today no call placed TT to RNCM to make aware of [facility] trigger. documented in this encounter Plan of Treatment Upcoming Encounters Date Type Department Care Team (Latest Contact Info) Description 09/03/2023 3:00 PM EST Scheduled Telephone [facility], [facility] [address] [facility] [place] [address] Mery Calderon, RDN [address] [facility] [place] [address] 09/16/2023 11:00 AM EDT Telemedicine Pharmacy, [facility] [place] [address] [facility] [place] [address] Pharmacist1, [facility] [address] [facility] [place] [address] 10/06/2023 2:10 PM EDT Office Visit Family Medicine [address] [phone] [address] [place] [address] 10/27/2023 8:30 AM EDT Office Visit Sleep Disorders Ctr [facility] [place] [address] [phone] Lindsey Sheikh CRNP [address] [place] [address] 12/31/2023 11:45 AM EDT Hospital Encounter ENDO [facility], Endoscopy Room [facility] [address] [place] [phone] José Miguel Sifuentes MD [address] [place] [address] 12/31/2023 11:45 AM EDT - 12/31/2023 12:15 PM EDT Surgery ENDO [facility], Endoscopy Room [facility] [address] [place] [phone] José Miguel Sifuentes MD [address] [place] [address] COLONOSCOPY FLEXIBLE PROXIMAL DIAGNOSTIC 01/14/2024 12:30 PM EDT Cardiac Studies Cardiac Studies [address] [place] [address] 02/29/2024 3:20 PM EDT Office Visit Nephrology [address] [place] [address] Shivani Magallon MD [address] [facility] [place] [address] 08/08/2024 9:30 AM EST Nurse Only Ancillary [address] [place] [address] [place], Nurse [address] [place] [address] Scheduled Procedures Name Priority Associated Diagnoses Date/Ti [...] this encounter Medical Devices Implanted Type Area Ed Case Manager Device Identifier Shelf Expiration Date Model / Serial / Lot Lens Intraoc 21.0 - [id number] - [id number] Implanted:Qty: 1 on 01/22/2017 by Cheko Mcnamara MD at OR [facility] Right: Eye [employer]OM[employer] 08/05/2021 [id number] / [id number] / [id number] Lens Intraoc 21.5 - [id number] - [id number] Implanted:Qty: 1 on 02/03/2017 by Cheko Mcnamara MD at OR [facility] Left: Eye BAUSCH [employer] LOMB 09/02/2021 [id number] / [id number] / [id number] documented as of this encounter Advance Directives [...] and were consensually agreed upon. Care Teams Client Director Relationship Specialty Start Date End Date Bárbara Rios DO [address] [place] [address] [place] [address] PCP - General Internal Medicine 08/16/21 documented as of this encounter
--- OUTSIDE RECORDS SUMMARY | 2023-10-20 22:57 | External Medical Summary | Summary of Care ---
Author Name Unknown Organization [facility] Address [address] [place] [address] Phone [phone] Care Team Providers Care Night Club Manager Name Role Phone Bárbara Rios Primary Care Provider [phone] Encounter Details Date Type Department Care Team (Late st Contact Info) Description 08/17/2023 Orders Only Outcomes Research Department [address] [place] [address] Wen Reid CHRA [facility]CM[facility] Research Other*[id number] Allergies Active Allergy Reactions Criticality Noted Date Comments Other Allergy (See Comments) Rash Low 10/13/2022 1+ cocamidopropyl betaine Sglt2 Inhibitors Other (Please comment) High 09/04/2020 Genital infection Sulfa Antibiotics Rash 10/15/2016 documented as of this encounter (statuses as of 08/17/2023) Medications Medication Sig Dispensed Refills Start Date [...] a week. 9 mL 3 04/09/2023 Active Kqnuy-7-pazf Ethyl Esters 1 GM Oral Capsule (Lovaza) [...] as of this encounter (statuses as of 08/17/2023) Active Problems Problem Noted Date Diagnosed Date [...] in the Comments) Remote Patient Monitoring Vendor: [employer](BHI) Device(s): Connected Scale Self - Management Plan [...] as of this encounter (statuses as of 08/17/2023) Resolved Problems Problem Noted Date Diagnosed Date [...] as of this encounter (statuses as of 08/17/2023) Immunizations Name Administration Dates Next Due COVID-19 mRNA, LNP-s, No Pre serve, 2-Dose Series (Moderna) 12/10/2020,11/12/2020 Hepatitis B, 20+ yrs 01/04/2018,08/03/2017,07/03 Pneumococcal Conjugate Vacci ne, 20-valent (Exrirek15) 06/09/2022 Pneumococcal Polysaccharide PPV23 (Pneumovax) 03/06/2020 Seasonal [...] Department Care Team (Latest Contact Info) Description 08/21/2023 8:30 AM EST Home Visit [facility], [facility] [address] [place] [address] Love Stevens, ANNE MARIE [address] [place] [address] 09/03/2023 3:00 PM EST Scheduled Telephone [facility], [facility] [address] [facility] [place] [address] Mery Calderon RDN [address] [facility] [address] 09/16/2023 11:00 AM EDT Telemedicine Pharmacy, [facility] 200 [facility] [place] [address] Pharmacist1, [facility] 200 [facility] [place] [address] 10/06/2023 2:10 PM EDT Office Visit Family Medicine [address] [phone] Bárbara Rios[address] [place] [address] 10/27/2023 8:30 AM EDT Office Visit Sleep Disorders Ctr [facility] [address] [place] [phone] Lindsey Sheikh CRNP [address] [place] [address] 12/31/2023 11:45 AM EDT Hospital Encounter ENDO [facility], Endoscopy Room [facility] [address] [place] [phone] José Miguel Sifuentes MD [address] [place] [address] 12/31/2023 11:45 AM EDT - 12/31/2023 12:15 PM EDT Surgery ENDO [facility], Endoscopy Room [facility] [address] [place] [phone] José Miguel Sifuentes MD [address] [place] [address] COLONOSCOPY FLEXIBLE PROXIMAL DIAGNOSTIC 01/14/2024 12:30 PM EDT Cardiac Studies Cardiac Studies [address] [place] [address] 02/29/2024 3:20 PM EDT Office Visit Nephrology [address] [place] [address] Shivani Magallon MD [address] [place], [place] [address] [address] 08/08/2024 9:30 AM EST Nurse Only Ancillary [address] [place] [address] [place], Nurse Annual [address] [place] [address] Scheduled Orders Name Type Priority Associated Diagnoses Orde r Schedule MYCODE SUBSEQUENT ADULT Lab Routine [employer] Research Other*[id number] Every 6 Months for 2 Occurrences starting 08/17/2023 until 09/05/2024 Scheduled Procedures Name Priority Associated Diagnoses Date/Ti [...] this encounter Medical Devices Implanted Type Area Cylinder Valve Repairer Device Identifier Shelf Expiration Date Model / Serial / Lot Lens Intraoc 21.0 - [id number] - [id number] Implanted:Qty: 1 on 01/22/2017 by Cheko Mcnamara MD at OR [facility] Right: Eye [employer]CH [employer] LOMB 08/05/2021 [id number] / [id number] / [id number] Lens Intraoc 21.5 - [id number] - [id number] Implanted:Qty: 1 on 02/03/2017 by Cheko Mcnamara MD at OR [facility] Left: Eye BAUSCH [employer] LOMB 09/02/2021 [id number] / [id number] / [id number] documented as of this encounter Visit Diagnoses Diagnosis [employer] Research Other*[id number] Special screening for malignant neoplasms, colon documented [...] and were consensually agreed upon. Care Teams Night Club Manager Relationship Specialty Start Date End Date Bárbara Rios DO [address] [place] [address] [place] [address] PCP - General Internal Medicine 08/16/21 documented as of this encounter
--- OUTSIDE RECORDS SUMMARY | 2023-10-20 22:57 | External Medical Summary ---
Author Name Unknown Address Unknown Organization K01:[facility] - [address] [place] [address] Laboratory Report Ordering Provider Test Date Status EVERTON MORRISON 08/24/2023 14:21:12 Final Observation Date Value Abnormality Reference (Units ) Status Vitamin B12 08/24/2023 14:21:12 [phone] (pg/mL) Final Performing Location [facility] - [address] [place] [address]
--- OUTSIDE RECORDS SUMMARY | 2023-10-20 22:58 | External Medical Summary | Summary of Care ---
Author Name Unknown Organization [facility] Address [address] [place] [address] Phone [phone] Care Team Providers Care Rn Surgery Icu Name Role Phone Bárbara Rios Primary Care Provider Reason for Visit * Reason Onset Date Comments Home Monitoring Alarm 07/30/2023 Encounter Details Date Type Department Care Team (Late st Contact Info) Description 07/30/2023 Home Monitoring Care Coordination [address] [place] [address] Tanja Fitch LPN 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)* Allergies Active Allergy Reactions Criticality Noted Date Comments Other Allergy (See Comments) Rash Low 10/13/2022 1+ cocamidopropyl betaine Sglt2 Inhibitors Other (Please comment) High 09/04/2020 Genital infection Sulfa Antibiotics Rash 10/15/2016 documented as of this encounter (statuses as of 07/30/2023) Medications Medication Sig Dispensed Refills Start Date [...] Oral CapsuleIndications: takes in the evening Take by mouth 200 mg daily . 0 Active CPAP every night at bedtime. [...] when flaring 60 g 2 06/11/2022 Active Betamethasone Dipropionate 0.05 % External Cream (Diprosone)Indicati ons:Allergic dermatitis due to other chemical product Apply 2x daily (or more if itchy) to rash on scalp/arms until resolved then when flaring 60 g 0 10/13/2022 Active Tresiba FlexTouch 200 UNIT/ML Subcutaneous Solution [...] 32 UNITS WITH DINNER PLUS CORRECTION PER [facility] OR DIRECTED UP TO 120 UNITS PER DAY 120 mL 3 12/18/2022 4 Active hydrALAZINE HCl 25 MG Oral Tablet (Apresoline)Indicat ions:HTN, goal below 140/90 TAKE ONE TABLET BY MOUTH EVERY MORNING, ONE TABLET AT NOON, AND ONE TABLET AT BEDTIME 300 Tablet 3 09/02/2022 4 Active metOLazone 2.5 MG Oral Tablet [...] Continue DTP as ordered., Reported on 05/07/2023 Lisinopril 10 MG Oral Tablet (Prinivil) Take 2 Tablets by mouth in the morning. 180 Tablet 1 04/02/2023 Active Semaglutide (2 MG/DOSE) 8 MG/3ML Subcutaneous Solution Pen-injector (Ozempic)Indication s:Type 2 diabetes mellitus with hemoglobin A1c goal of less than 8.0% (HCC) Inject 2 mg under the skin once a week. 9 mL 3 04/09/2023 Active Pugww-8-dchq Ethyl Esters 1 GM Oral Capsule (Lovaza) [...] BEFORE A MEAL 180 Capsule 1 04/28/2023 Active Evolocumab 140 MG/ML Subcutaneous Solution Auto-injector [...] the morning. 90 Tablet 3 07/13/2023 Active Hospital, Clinic, or Other Facility Administered [...] as of this encounter (statuses as of 07/30/2023) Active Problems Problem Noted Date Diagnosed Date [...] in the Comments) Remote Patient Monitoring Vendor: [facility] Device(s): Connected Scale Self - Management Plan [...] 08/18/2017 Last Assessment & Plan: Continues on Proximexaza 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 repatha History of [...] as of this encounter (statuses as of 07/30/2023) Resolved Problems Problem Noted Date Diagnosed Date [...] as of this encounter (statuses as of 07/30/2023) Immunizations Name Administration Dates Next Due COVID-19 mRNA, LNP-s, No Pre serve, 2-Dose Series (Moderna) 12/10/2020,11/12/2020 Hepatitis B, 20+ yrs 01/04/2018,08/03/2017,07/03 Pneumococcal Conjugate Vacci ne, 20-valent ([id number]) 06/09/2022 Pneumococcal Polysaccharide PPV23 (Pneumovax) 03/06/2020 Seasonal [...] Answer Date Recorded PHQ Adult Total Score 1 07/21/2022 Hunger Vital Sign Answer Date Recorded Within the past 12 months, y ou worried that your food would run out before you got the money to buy more. Never true 07/22/19 24 Within the past 12 months, t he food you bought just didn't last and you didn't have money to get more. Never true 07/22/2023 Sex and Gender Information Value Date Recorded Sex Assigned at Male 12/06/2018 8:36 AM EDT Gender Identity Male 12/06/2018 8:36 AM EDT Sexual Orientation Straight 12/06/2018 8: 36 AM EDT Job Start Date Occupation Industry Not on file Not on file Not on file documented as of this encounter Progress Notes * Tanja Fitch LPN - 07/30/2023 1:48 PM EST Tony Delong [phone] Tony Farmer Baljeet is currently participating in the [employer]365 Hypertension Management Program and hada reading on 07/30/23 of 164/76. Pt has alerted for an Average BP over 7 days > 140/90 . Parameters are currently set as follows: Average BP over 7 days > 140/90 Singular Systolic BP Reading < 90 or > 180 Singular Diastolic BP Reading <50 or > 120 Patient is not reporting new symptoms or concerns. The patient does have all his blood pressure medications and is taking them as prescribed. Please review the recent history of home RPM readings in Epic Synopsis Flowsheets and work with your clinical staff if any additional actions or interventions are required. If you would like to customize the alert parameters and/or instructions for this patient, please let me know and we can have them changed. Thank you! Tanja Fitch LPN documented in this encounter Plan of Treatment Upcoming Encounters Date Type Department Care Team (Late st Contact Info) Description 08/05/2023 9:30 AM EST Nurse Only Ancillary [place] [address] [place] [address] [place] Nurse [address] [place] [address] 08/06/2023 10:00 AM EST Office Visit Cardiology, [facility] [address] [facility] [place] [address] Evita Brennan CRNP 132 [facility] [place] [address] 08/11/2023 11:30 AM EST Scheduled Telephone [facility], [facility] [address] [facility] [place] [address] Mery Calderon, VIVIANAN [address] [facility] [place] [address] 08/21/2023 8:30 AM EST Home Visit [facility], [facility] [address] [facility] [place] [address] Love Stevens, ANNE MARIE 132 [facility] [place] [address] 09/16/2023 11:00 AM EDT Telemedicine Pharmacy, [facility] [address] [facility] [place] [address] Pharmacist1, [facility] [place] [address] 10/06/2023 2:10 PM EDT Office Visit Family Medicine [address] [phone] Bárbara Rios[address] [place] [address] 10/27/2023 8:30 AM EDT Office Visit Sleep Disorders Ctr [facility] [address] [facility] [place] [phone] Lindsey Sheikh CRNP [address] [place] [address] 02/29/2024 3:20 PM EDT Office Visit Nephrology [address] [place] [address] Shivani Magallon MD [address] [facility] [place] [address] Scheduled Procedures Name Priority Associated Diagnoses Date/Ti me ESOPHAGOGASTRODUODENOSCOPY ( EGD), FLEXIBLE, TRANSORAL, DIAGNOSTIC Recall Arreola's esophagus with dysplasia COLONOSCOPY FLEXIBLE PROXIMAL DIAGNOSTIC Recall History of colon polyps Health Maintenance Due Date Last Done Comments HIV Screening 1974 Alpha-1 Antitrypsin 1977 COLONOSCOPY-EVERY 5 YRS AGES 18-100 01/01/2023 01/01/2018, 01/01/2018 COVID-19 Vaccine ( season) 2023 12/10/2020, 11/12/2020 Depression Screening 07/21/2023 07/21/2022 Diabetic Foot Exam 09/02/2023 09/02/2022, 0 08/16/2021, 05/29/2020, Additional history exists HbA1c 12/11/2023 06/11/2023, 03/07, 12/17/2022, Additional history exists GFR 01/27/2024 07/29/2023, 12/01/2023, 04/27/2023, Additional history exists Albumin/Creatinine Ratio 06/11/2024 023, 09/22/2022, 09/02/2022, Additional history exists Diabetic Eye Exam 07/01/2024 07/01/2023, , 12/26/2021, Additional history exists O2 ASSESSMENT COMPLETED IN PAST YEAR FOR COPD 07/29/2024 07/29/2023 Arreola's Esophagus Surveilance 06/16/2025 06/16/2022, 06/16/2022, 03/20/2022, [...] this encounter Medical Devices Implanted Type Area Polysomnographic Technologist Device Identifier Shelf Expiration Date Model / Serial / Lot Lens Intraoc 21.0 - [id number] - [id number] Implanted:Qty: 1 on 01/22/2017 by Cheko Mcnamara MD at OR [facility] Right: Eye [employer] 08/05/2021 [id number] / [id number] / [id number] Lens Intraoc 21.5 - [id number] - [id number] Implanted:Qty: 1 on 02/03/2017 by Cheko Mcnamara MD at OR [facility] Left: Eye [employer]USCH [employer]OMB 09/02/2021 [id number] / [id number] / [id number] documented as of this encounter Visit Diagnoses Diagnosis 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)- Primary documented in this encounter Advance Directives Latest [...] and were consensually agreed upon. Care Teams Rn Surgery Icu Relationship Specialty Start Date End Date Bárbara Rios DO [address] [place] [address] [place] [address] PCP - General Internal Medicine 08/16/21 documented as of this encounter
--- OUTSIDE RECORDS SUMMARY | 2023-10-20 22:58 | External Medical Summary | Summary of Care ---
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 9 mL 3 04/09/2023 Active Wmxow-3-taki Ethyl Esters 1 GM Oral Capsule (Lovaza) [...] as of this encounter (statuses as of 07/31/2023) Active Problems Problem Noted Date Diagnosed Date [...] the Comments) Remote Patient Monitoring Vendor: [facility] Device(s): Connected Scale Self - [...] as of this encounter (statuses as of 07/31/2023) Resolved Problems Problem Noted Date Diagnosed Date [...] as of this encounter (statuses as of 07/31/2023) Immunizations Name Administration Dates Next Due COVID-19 mRNA, LNP-s, No Pre serve, 2-Dose Series (Moderna) 12/10/2020,11/12/2020 Hepatitis B, 20+ yrs 01/04/2018,08/03/2017,07/03 Pneumococcal Conjugate Vacci ne, 20-valent ([id number]) 06/09/2022 Pneumococcal Polysaccharide PPV23 (Pneumovax) 03/06/2020 Seasonal [...] as of this encounter Progress Notes * Clary Gregg RPh - 07/31/2023 4:12 PM EST 07/23/23 14:28 07/24/23 15:47 07/29/23 07/30/23 07/31/23 13:31 Systolic BP 126 mm/Hg [1] 131 mm/Hg [1] 143 mm/Hg (H) [1] 146 mm/Hg (H) [1] 105 mm/Hg [1] Diastolic BP 66 mm/Hg [1] 59 mm/Hg [1] 68 mm/Hg [1] 68 mm/Hg [1] 57 mm/Hg [1] Note: Showing the most recent values for these dates. There are additional values that can be seen in Synopsis. (H): Data is abnormally high [1] CH:VITAL_READING_TYPE=SPOT CH:PERIPHERAL_BRAND=IHEALTH Attempted to contact patient to discuss BP readings above, number not in service. MyG message sent. Clary Gregg RPh, PharmD Clinical Pharmacist - Tablet Technician [facility]ication [facility] 07/31/2023, 4:13 PM [phone] * Tanja Fitch LPN - 07/30/2023 1:48 PM EST Tony Delong [phone] Tony Delong is currently participating in the CC365 Hypertension [...] 08/05/2023 9:30 AM EST Nurse Only Ancillary [address] [place] [address] [place], Nurse [address] [place] [address] 08/06/2023 10:00 AM EST Office Visit Cardiology, [facility] [address] [facility] [place] [address] Evita Brennan CRNP 132 [facility] [place] [address] 08/11/2023 11:30 AM EST Scheduled Telephone [facility], [facility] [address] [facility] [place] [address] Mery Calderon RDN [address] [facility] [place] [address] 08/21/2023 8:30 AM EST Home Visit [facility], [facility] [address] [place] [address] Love Stevens, ANNE MARIE [address] [place] [address] 09/16/2023 11:00 AM EDT Telemedicine Pharmacy, [facility] 200 [facility] [place] [address] Pharmacist1, [facility] [address] [facility] [place] [address] 10/06/2023 2:10 PM EDT Office Visit Family Medicine [address] [place] [phone] Bárbara Rios[address] [place] [address] 10/27/2023 8:30 AM EDT Office Visit Sleep Disorders Ctr [facility] [address] [place] [phone] Lindsey Sheikh CRNP 132 [facility] [place] [address] 02/29/2024 3:20 PM EDT Office Visit Nephrology [address] [place] [address] Shivani Magallon MD 200 [facility] [place] [address] Scheduled Procedures Name Priority Associated Diagnoses Date/Ti [...] encounter Medical Devices Implanted Type Area Media Marketing Director Device Identifier Shelf Expiration Date Model / Serial / Lot Lens Intraoc 21.0 - [id number] - [id number] Implanted:Qty: 1 on 01/22/2017 by Cheko Mcnamara MD at OR [facility] Right: Eye [employer] 08/05/2021 [id number] / [id number] / [id number] Lens Intraoc 21.5 - [id number] - [id number] Implanted:Qty: 1 on 02/03/2017 by Cheko Mcnamara MD at OR [facility] Left: Eye BA[employer]CH [employer]OMB 09/02/2021 [id number] / [id number] / [id number] documented as of this encounter Visit Diagnoses [...] and were consensually agreed upon. Care Teams Lease Examiner Relationship Specialty Start Date End Date Bárbara Rios DO [address] [place] [address] [place] [address] PCP - General Internal Medicine 08/16/21 documented as of this encounter
--- OUTSIDE RECORDS SUMMARY | 2023-10-20 22:58 | External Medical Summary | Summary of Care ---
Author Name Unknown Organization [facility] Address [address] [facility] [place] [address] Phone [phone] Care Team Providers Care Central Office Maintainer Name Role Phone Bárbara Rios Primary Care Provider Reason for Visit * Reason Onset Date Comments [facility]: Maintenance 08/05/2023 Encounter Details Date Type Department Care Team (Late st Contact Info) Description 08/05/2023 Telephone [facility], [facility] [address] [facility] [place] [address] [facility], Nurse [facility] [address] [place] [address] [facility]: Maintenance Allergies Active Allergy Reactions Criticality Noted Date Comments Other Allergy (See Comments) Rash Low 10/13/2022 1+ cocamidopropyl betaine Sglt2 Inhibitors Other (Please comment) High 09/04/2020 Genital infection Sulfa Antibiotics Rash 10/15/2016 documented as of this encounter (statuses as of 08/05/2023) Medications Medication Sig Dispensed Refills Start Date [...] 32 UNITS WITH DINNER PLUS CORRECTION PER [facility] OR DIRECTED UP TO [...] a week. 9 mL 3 04/09/2023 Active Eqerq-1-vfim Ethyl Esters 1 GM Oral Capsule (Lovaza) [...] as of this encounter (statuses as of 08/05/2023) Active Problems Problem Noted Date Diagnosed Date [...] in the Comments) Remote Patient Monitoring Vendor: [employer] Device(s): Connected Scale Self - Management Plan [...] as of this encounter (statuses as of 08/05/2023) Resolved Problems Problem Noted Date Diagnosed Date [...] as of this encounter (statuses as of 08/05/2023) Immunizations Name Administration Dates Next Due COVID-19 mRNA, LNP-s, No Pre serve, 2-Dose Series (Moderna) 12/10/2020,11/12/2020 Hepatitis B, 20+ yrs 01/04/2018,08/03/2017,07/03 Pneumococcal Conjugate Vacci ne, 20-valent ([id number]) 06/09/2022 Pneumococcal Polysaccharide PPV23 (Pneumovax) 03/06/2020 Seasonal [...] Telephone Encounter - Alexandra Mcgraw LPN - 08/05/2023 10:08 AM EST Images from the original note were not included. [facility] Remote Patient Monitoring Unable to contact patient: Trigger type: Abnormal reading(s): Device(s) Triggered: AMC (Advanced Monitored Caregiving): Scale: Trigger weight: 292.6 lbs; weight increased 2.2 lbs in 1 day(s) Plan: Call to pt no answer left requesting a return call to [facility] at [phone] opt#3 documented in this encounter Plan of Treatment Upcoming Encounters Date Type Department Care Team (Late st Contact Info) Description 08/06/2023 10:00 AM EST Office Visit Cardiology, [facility] [place] [address] Evita Brennan CRNP [address] [place] [address] 08/11/2023 11:30 AM EST Scheduled Telephone [facility], [facility] [address] [facility] [place] [address] Mery Calderon RDN [address] [facility] [place] [address] 08/21/2023 8:30 AM EST Home Visit [facility], [facility] [address] [place] [address] Love Stevens, RN [address] [place] [address] 09/16/2023 11:00 AM EDT Telemedicine Pharmacy, [facility] [address] [facility] [address] [place] [address] Pharmacist1, [facility] 200 [facility] [place] [address] 10/06/2023 2:10 PM EDT Office Visit Family Medicine [address] [place] [phone] Bárbara Rios [address] [place] [address] 10/27/2023 8:30 AM EDT Office Visit Sleep Disorders Ctr [facility] 132 [facility] [place] [phone] Lindsey Sheikh CRNP [facility] [place] [address] 02/29/2024 3:20 PM EDT Office Visit Nephrology [address] [place] [address] Shivani Magallon MD [address] [place] [address] 08/08/2024 9:30 AM EST Nurse Only Ancillary [address] [place] [address] [place], Nurse [address] [place] [address] Scheduled Procedures Name Priority Associated Diagnoses Date/Ti me ESOPHAGOGASTRODUODENOSCOPY ( EGD), FLEXIBLE, TRANSORAL, DIAGNOSTIC Recall Arreola's esophagus with dysplasia COLONOSCOPY FLEXIBLE PROXIMAL DIAGNOSTIC Recall History of colon polyps Health Maintenance Due Date Last Done Comments HIV Screening 1974 Alpha-1 Antitrypsin 1977 COLONOSCOPY-EVERY 5 YRS AGES 18-100 01/01/2023 01/01/2018, 01/01/2018 COVID-19 Vaccine (2022- season) 2023 12/10/2020, 11/12/2020 Depression Screening 07/21/2023 07/21/2022 Diabetic Foot Exam 09/02/2023 09/02/2022, 0 08/16/2021, 05/29/2020, Additional history exists HbA1c 12/11/2023 06/11/2023, 03/07, 12/17/2022, Additional history exists GFR 01/27/2024 07/29/2023, 12/01/2023, 04/27/2023, Additional history exists Albumin/Creatinine Ratio 06/11/2024 023, 09/22/2022, 09/02/2022, Additional history exists Diabetic Eye Exam 07/01/2024 07/01/2023, , 02/12/2023, Additional history exists O2 ASSESSMENT COMPLETED IN [...] this encounter Medical Devices Implanted Type Area Liquor Rectifier Device Identifier Shelf Expiration Date Model / Serial / Lot Lens Intraoc 21.0 - [id number] - [id number] Implanted:Qty: 1 on 01/22/2017 by Cheko Mcnamara MD at OR [facility] Right: Eye BAUSCH [employer]OMB 08/05/2021 [id number] / [id number] / [id number] Lens Intraoc 21.5 - [id number] - [id number] Implanted:Qty: 1 on 02/03/2017 by Cheko Mcnamara MD at OR [facility] Left: Eye BAUSCH & LOMB 09/02/2021 [id number] / [id number] / [id number] documented as of this encounter Advance Directives [...] and were consensually agreed upon. Care Teams Central Office Maintainer Relationship Specialty Start Date End Date Bárbara Rios DO [address] [place] [address] [place] [address] PCP - General Internal Medicine 08/16/21 documented as of this encounter
--- OUTSIDE RECORDS SUMMARY | 2023-10-20 22:58 | External Medical Summary | Summary of Care ---
Author Name Unknown Organization [facility] Address [address] [facility] [place] [address] Phone [phone] Care Team Providers Care Dialer Name Role Phone Bárbara Rios Primary Care Provider [phone] Reason for Visit * Reason Comments [facility]: Maintenance Encounter Details Date Type Department Care Team (Late st Contact Info) Description 07/29/2023 1:30 PM EST Home Visit [facility], [facility] [address] [place] [address] Love Stevens, RN [address] [place] [id number] Chronic heart failure with preserved ejection fraction (HCC)* Allergies Active Allergy Reactions Criticality Noted Date Comments Other Allergy (See Comments) Rash Low 10/13/2022 1+ cocamidopropyl betaine Sglt2 Inhibitors Other (Please comment) High 09/04/2020 Genital infection Sulfa Antibiotics Rash 10/15/2016 documented as of this encounter (statuses as of 07/29/2023) Medications Medication Sig Dispensed Refills Start Date [...] 32 UNITS WITH DINNER PLUS CORRECTION PER [facility] OR DIRECTED UP TO 120 UNITS [...] a week. 9 mL 3 04/09/2023 Active Dwxtl-4-enyv Ethyl Esters 1 GM Oral Capsule (Lovaza) [...] as of this encounter (statuses as of 07/29/2023) Active Problems Problem Noted Date Diagnosed Date [...] (ex: Victoza, Trulicity, Ozempic) DM Secondary Prevention ARAINNA Inhibitor / ARB Aspirin Yearly Diabetic Eye [...] in the Comments) Remote Patient Monitoring Vendor: [employer] Device(s): Connected Scale Self - Management Plan [...] as of this encounter (statuses as of 07/29/2023) Resolved Problems Problem Noted Date Diagnosed Date [...] as of this encounter (statuses as of 07/29/2023) Immunizations Name Administration Dates Next Due COVID-19 mRNA, LNP-s, No Pre serve, 2-Dose Series (Moderna) 12/10/2020,11/12/2020 Hepatitis B, 20+ yrs 01/04/2018,08/03/2017,07/03 Pneumococcal Conjugate Vacci ne, 20-valent ([id number]) 06/09/2022 Pneumococcal Polysaccharide PPV23 (Pneumovax) 03/06/2020 Seasonal [...] Sign Reading Time Taken Comments Blood Pressure 132/72 07/29/2023 1:30 PM EST Pulse 64 07/29/2023 1:30 PM EST Temperature 35.7 C (96.2 F) 07/29/2023 1:30 PM ES T Respiratory Rate 18 07/29/2023 1:30 PM EST Oxygen Saturation 96% 07/29/2023 1:30 PM EST Inhaled Oxygen Concentration - - Weight - - Height - - Body Mass Index - - documented in this encounter Progress Notes * Love Stevens RN - 07/29/2023 12:50 PM EST Images from the original note were not included. [facility] Room [employer] Visit Date: 07/29/2023 Time: 12:51 PM Name: Tony Delong : 1960 Current Concerns: Patient seen for follow up- CKD4, CHF, COPD, [place], DM2 Patient weight fluctuating- DTP- 07/12/23- 07/14/23, 07/19/23, 07/22,07/23 Doubled afternoon dose only-07/16, 07/17, 07/24- 07/28 No recent BMP Blood sugar average- 7 days- 202 14 day average 203 Followed by MTM at [facility] Reports he knows he hasn't been eating the best foods. VS wnl Lungs clear but diminished Sob slightly above baseline No LE edema Voiding without difficulty Bowels wnl- per report Appetite good Taking fluids well. TT to Sam Gage PA-C- Draw BMP today. Order placed. Physical Exam: BP 132/72 (BP Site: Left Arm, BP Position: Sitting, BP Cuff Size: Regular) | Pulse 64 | Temp 35.7 C (96.2 F) (Tympanic) | Resp 18 | SpO2 96% Pain 0 Physical Exam Constitutional: Appearance: Normal appearance. Cardiovascular: Rate and Rhythm: Normal rate and regular rhythm. Pulses: Normal pulses. Pulmonary: Effort: Pulmonary effort is normal. Breath sounds: Normal breath sounds. Abdominal: General: Bowel sounds are normal. Palpations: Abdomen is soft. Musculoskeletal: General: Normal range of motion. Skin: General: Skin is warm. Capillary Refill: Capillary refill takes 2 to 3 seconds. Neurological: General: No focal deficit present. Mental Status: He is alert. Psychiatric: Mood and Affect: Mood normal. Behavior: Behavior normal. Problems/Symptoms: Review of Systems Constitutional: Negative. HENT: Negative. Eyes: Negative. Respiratory: Positive for shortness of breath. Cardiovascular: Negative. Gastrointestinal: Negative. Endocrine: Negative. Genitourinary: Negative. Musculoskeletal: Negative. Skin: Negative. Neurological: Negative. Hematological: Negative. Psychiatric/Behavioral: Negative. Medication Reconciliation: (See medication list) Does patient take medications as ordered: Yes Patient Well Being: PHQ2/9: No questionnaires available. Within normal limits [facility]-10 Completed this Visit: No. No falls since last visit Advanced Care Planning: POLST. Patient's Goals of Care: Manage blood sugars Maintain baseline weight Continue to drive Reinforcement/Education: Reviewed HF symptom monitoring: -Weigh self daily [...] if at night -increased fatigue or vertigo Treatment/Plan: Low na /diabetic diet Elevate ble- prn edema Weigh daily- [facility] scale Blood sugars QID- managed by MTM Continue medications as prescribed Keep all upcoming MD appointments BMP to [facility] Fall precautions RN CM follow up in 4 weeks Home Interventions Provided: Labs/Specimen Collection Performed BMP Lab/Imaging Ordered BMP Consulted PCP/Specialist Reinforced current Plan of Care, including self-management and medication regimen Patient's 'Red Flags': Increase edema BLE Sob above baseline Weight gain 2lbs/24 hours- 3-5lbs in one week Patient Needs to Remember: Call [facility] with any medical concerns/ red flags Referrals Needed: N/a Follow Up: Is there cellular connectivity/connectivity in the home? Yes Does the patient have internet in the home? Yes Patient encouraged to call the intake phone number for all urgent but not emergent issues. Is the patient new to [facility] within the last 30 days? No, Assess appropriateness for upcoming telehealth visits. Cancel telehealth visits & schedule home visit with care production team member(s)as indicated. Provider is in agreement with Plan of Care: Yes Scheduled to follow up with patient in 4 weeks. Love Du RN 07/29/2023 12:51 PM documented in this encounter Plan of Treatment Upcoming Encounters Date Type Department Care Team (Late st Contact Info) Description 08/05/2023 9:30 AM EST Nurse Only Ancillary [address] [place] [address] [place], Nurse [address] [place] [address] 08/06/2023 10:00 AM EST Office Visit Cardiology, [facility] [address] [place] [address] Evita Brennan CRNP [address] [place] [address] 08/11/2023 11:30 AM EST Scheduled Telephone [facility], [facility] [address] [place] [phone] Mery Calderon RDN [address] [place] [address] 08/21/2023 8:30 AM EST Home Visit [facility], [facility] [address] [place] [address] Love Stevens, ANNE MARIE [address] [facility] [place] [address] 09/16/2023 11:00 AM EDT Telemedicine Pharmacy, [facility] [place] [address] [facility] [place] [address] Pharmacist1, [facility] [address] [facility] [place] [address] 10/06/2023 2:10 PM EDT Office Visit Family Medicine [address] [place] [phone] Bárbara Rios[address] [place] [address] 10/27/2023 8:30 AM EDT Office Visit Sleep Disorders Ctr [facility] [address] [facility] [place] [phone] Lindsey Sheikh CRNP [address] [facility] [place] [address] 02/29/2024 3:20 PM EDT Office Visit Nephrology [address] [place] [address] Shivani Magallon MD [address] [facility] [place] [phone] Pending Results Name Type Priority Associated Diagnoses Date /Time BASIC METABOLIC PANEL Lab Routine Chronic heart failure with preserved ejection fraction (HCC) 07/29/2023 2:09 PM EST Scheduled Orders Name Type Priority Associated Diagnoses Orde r Schedule BASIC METABOLIC PANEL Lab Routine Chronic heart failure with preserved ejection fraction (HCC) Expected: 07/29/2023 (Approximate), Expires: 07/28/2024 Scheduled Procedures Name Priority Associated Diagnoses Date/Ti [...] 09/02/2022, 0 08/16/2021, 05/29/2020, Additional history exists GFR 12/11/2023 06/11/2023, 04/06, 04/21/2023, Additional history exists HbA1c 12/11/2023 06/11/2023, 03/07, 12/17/2022, Additional history exists Albumin/Creatinine Ratio 06/11/2024 023, 09/22/2022, 09/02/2022, Additional history exists Diabetic Eye Exam 07/01/2024 07/01/2023, , 12/26/2021, Additional history exists O2 ASSESSMENT COMPLETED IN PAST YEAR FOR COPD 07/22/2024 07/22/2023 Arreola's Esophagus Surveilance 06/16/2025 06/16/2022, 06/16/2022, 03/20/2022, [...] this encounter Medical Devices Implanted Type Area Box Liner Device Identifier Shelf Expiration Date Model / Serial / Lot Lens Intraoc 21.0 - [id number] - [id number] Implanted:Qty: 1 on 01/22/2017 by Cheko Mcnamara MD at OR [facility] Right: Eye [employer] 08/05/2021 [id number] / [id number] / [id number] Lens Intraoc 21.5 - [id number] - [id number] Implanted:Qty: 1 on 02/03/2017 by Cheko Mcnamara MD at OR [facility] Left: Eye [employer] 09/02/2021 [id number] / [id number] / [id number] documented as of this encounter Visit Diagnoses Diagnosis Chronic heart failure with preserved ejection fraction (HCC)- Primary documented in this encounter Advance [...] and were consensually agreed upon. Care Teams Dialer Relationship Specialty Start Date End Date Bárbara Rios DO [address] [place] [address] [place] [address] PCP - General Internal Medicine 08/16/21 documented as of this encounter
--- OUTSIDE RECORDS SUMMARY | 2023-10-20 22:58 | External Medical Summary | Summary of Care ---
Author Name Unknown Organization [facility] Address [address] [facility] [place] [address] Phone [phone] Care Team Providers Care Psychiatric Security Nurse Name Role Phone Bárbara Rios Primary Care Provider [phone] Reason for Referral * Precert (Within 10 days (routine)) - Authorized Specialty Diagnoses / Procedures Referred By Contac t Referred To Contact Cardiac Studies Diagnoses Chronic heart failure with preserved ejection fraction (HFpEF) (HCC) HTN, goal below 140/90 Dyslipidemia, goal LDL below 100 Abnormal LFTs CHAPINCITO on CPAP Chronic kidney disease, stage 3b (HCC) Procedures ECHO, COMPLETE (2D), TRANS-THORACIC Evita Brennan CRNP [address] [place] [address] Referral ID Status Reason Start Date Expiration Date V isits Requested Visits Authorized [id number] Authorized Precert 08/12/2023 999 999 Reason for Visit * Reason Comments Follow Up Encounter Details Date Type Department Care Team (Late st Contact Info) Description 08/12/2023 2:00 PM EST Office Visit Cardiology, [facility] [address] [place] [address] Evita Brennan CRNP [address] [place] [address] Chronic heart failure with preserved ejection fraction (HFpEF) (HCC)*; Chronic kidney disease, stage 3b (HCC); HTN, goal below 140/90; Dyslipidemia, goal LDL below 100; Abnormal LFTs; CHAPINCITO on CPAP Allergies Active Allergy Reactions Criticality Noted Date Comments Other Allergy (See Comments) Rash Low 10/13/2022 1+ cocamidopropyl betaine Sglt2 Inhibitors Other (Please comment) High 09/04/2020 Genital infection Sulfa Antibiotics Rash 10/15/2016 documented as of this encounter (statuses as of 08/12/2023) Medications Medication Sig Dispensed Refills Start Date [...] UNITS WITH DINNER PLUS CORRECTION PER [facility] OR DIRECTED [...] 02/16/2023 Active Torsemide 20 MG Oral Tablet (Demadex)Indicatio [...] a week. 9 mL 3 04/09/2023 Active Tldvy-8-sycd Ethyl Esters 1 GM Oral Capsule (Lovaza) [...] Active Evolocumab 140 MG/ML Subcutaneous Solution Auto-injector ([employer]Indicati ons:Dyslipidemia, goal LDL below 100,Mixed dyslipidemia Inject [...] the morning. 100 Tablet 3 08/12/2023 Active hydrALAZINE HCl 25 MG Oral Tablet (Apresoline)Indica tions:HTN, goal below 140/90 TAKE ONE TABLET BY MOUTH EVERY MORNING, ONE TABLET AT NOON, AND ONE TABLET AT BEDTIME 300 Tablet 3 09/02/2022 4 Discontinu ed(Refill) Lisinopril 10 MG Oral Tablet (Prinivil) Take 2 Tablets by mouth in the morning. 180 Tablet 1 04/02/2023 4 Discontinu ed(Refill) Hospital, Clinic, or Other [...] as of this encounter (statuses as of 08/12/2023) Active Problems Problem Noted Date Diagnosed Date [...] in the Comments) Remote Patient Monitoring Vendor: [facility] Device(s): Connected Scale Self - Management Plan [...] as of this encounter (statuses as of 08/12/2023) Resolved Problems Problem Noted Date Diagnosed Date [...] as of this encounter (statuses as of 08/12/2023) Immunizations Name Administration Dates Next Due COVID-19 mRNA, LNP-s, No Pre serve, 2-Dose Series (Moderna) 12/10/2020,11/12/2020 Hepatitis B, 20+ yrs 01/04/2018,08/03/2017,07/03 Pneumococcal Conjugate Vacci ne, 20-valent ([id number]) 06/09/2022 Pneumococcal Polysaccharide PPV23 (Pneumovax) 03/06/2020 Seasonal [...] Sign Reading Time Taken Comments Blood Pressure 126/76 08/12/2023 1:40 PM EST Pulse 62 08/12/2023 1:40 PM EST Temperature - - Respiratory Rate 18 08/12/2023 1:40 PM EST Oxygen Saturation - - Inhaled Oxygen Concentration - - Weight 135.6 kg (299 lb) 08/12/2023 1:40 PM EST Height - - Body Mass Index 40.55 08/05/2023 9:47 AM EST documented in this encounter Progress Notes * Mika Evita REGGIE Otero - 08/12/2023 2:00 PM EST Cardiology Outpatient Visit 08/12/[address] 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 Magallon HPI Very pleasant but medically complex 63-year-old male presenting to the cardiology office today in routine follow-up. Was last evaluated by Dr. Willard approximately 6 months ago. Patient carries a history chronic diastolic CHF with history of difficult to control volume status.He has a home scale and frequently requires DTPs. Renal function has been very labile and is now classified to have CKD class 3B/4 with history of proteinuria, follows with Dr. Magallon, nephrology. Today the patient presents feeling well and offers no acute concerns. Volume status has been well controlled. Averaging between 290 and 292 lb at home. Taking Ozempic for weight loss. Denies any chest pain. Shortness of breath at baseline. No palpitations lightheadedness or dizziness. No orthopnea or PND. No lower extremity edema. Ambulates with a cane. No recent falls. No fever, chills, cough, hematochezia, melena, or hemoptysis. States he is compliant with all medications and offers no side effects. Current Outpatient Medications Medication Sig Dispense Refill Cholecalciferol (VITAMIN D3) 2000 UNITS Capsule Take by mouth 5,000 Units daily . 30 Cap 5 Aspirin 81 MG Tablet Take 1 Tablet by mouth in the morning. B Complex Capsule Take 1 Cap by mouth daily. acetaminophen (TYLENOL) 500 MG Tablet Take 1 Tablet by mouth every 6 hours as needed for Pain, Moderate. 100 Tab 0 CoQ10 100 MG Oral Capsule Take 200 mg by mouth in the morning. Patient takes at night. CPAP every night at bedtime. Metamucil 28.3 % Oral Powder (Psyllium) Take by mouth 2 times a day. Clindamycin Phosphate 1 % External Gel Apply 2x daily to spots on scalp/neck until resolved, then when flaring 60 g 2 Tresiba FlexTouch 200 UNIT/ML Subcutaneous Solution Pen-injector INJECT UNDER THE SKIN 100 UNITS TWICE DAILY OR DIRECTED 90 mL 3 NovoLOG FlexPen 100 UNIT/ML Subcutaneous Solution Pen-injector INJECT UNDER THE SKIN 26 UNITS AT BREAKFAST, 26 UNITS AT LUNCH, 32 UNITS WITH DINNER PLUS CORRECTION PER [facility] OR DIRECTED UP TO120 UNITS PER DAY 120 mL 3 Torsemide 20 MG Oral Tablet (Demadex) Take 2 tablets in the morning and a third tablet at least 4 hours later; Take extra tablet as needed for weight gain. (Patient taking differently: Take 2 Tabletsby mouth in the morning. Take 2 tablets in the morning and 1 tablet 4 hours later. Continue DTP as ordered. .) 315 Tablet 3 Semaglutide (2 MG/DOSE) 8 MG/3ML Subcutaneous Solution Pen-injector (Ozempic) Inject 2 mg under theskin once a week. 9 mL 3 Zmzbs-3-uonk Ethyl Esters 1 GM Oral Capsule (Lovaza) Take 2 Capsules by mouth in the morning and 2 Capsules before bedtime. 360 Capsule 1 Carvedilol 25 MG Oral Tablet (Coreg) TAKE ONE TABLET BY MOUTH EVERY MORNING AND TAKE ONE TABLET BY MOUTH BEFORE BEDTIME 200 Tablet 3 Omeprazole 20 MG Oral Capsule Delayed Release (PriLOSEC) TAKE 1 CAPSULE BY MOUTH IN THE MORNING AND1 CAPSULE BEFORE BEDTIME 30 MINUTES BEFORE A MEAL 180 Capsule 1 Evolocumab 140 MG/ML Subcutaneous Solution Auto-injector (Repatha SureClick) Inject 140 mg under the skin every 14 days. 6 mL 3 Potassium Chloride Gaviota ER 10 MEQ Oral Tablet Extended Release Take 1 Tablet by mouth in the morning. 90 Tablet 3 hydrALAZINE HCl 25 MG Oral Tablet (Apresoline) Take 1 Tablet by mouth in the morning and 1 Tablet at noon and 1 Tablet before bedtime. 300 Tablet 3 Lisinopril 20 MG Oral Tablet (Prinivil) Take 1 Tablet by mouth in the morning. 100 Tablet 3 OneTouch Delica Lancets 33G Use 3 times daily - E11.9 (Patient taking differently: Use 3 times daily - E11.9) 300 Each 3 OneTouch Verio In Vitro Strip (Glucose Blood) USE TO TEST BLOOD GLUCOSE 3 TIMES A DAY. DX: E11.9 (Patient taking differently: USE TO TEST BLOOD GLUCOSE 3 TIMES A DAY. DX: E11.9) 300 Strip 3 FreeStyle Cindy 2 Sensor Use as directed every 14 days . 6 Each 3 metOLazone 2.5 MG Oral Tablet (Zaroxolyn) ON HOLD as of 01/21. Take 1 tablet by mouth on twice a week on non-consecutive days, 30 minutes prior to torsemide. (Patient not taking: Reported on 08/12/2023)30 Tablet 0 DIURETIC TITRATION PLAN If no improvement on day 3, contact heart failure managing provider. 60 Each 0 BD Pen Needle Short U/F 31G X 8 MM (Insulin Pen Needle) USE TO INJECT INSULINS 5 TIMES DAILY. DX: E11.9 500 Each 3 Current Facility-Administered Medications Medication Dose Route Frequency Provider Last Rate Last Admin Albuterol Sulfate (Proventil) (5 MG/ML) 0.5% *conc* inhalation solution 2.5 mg 2.5 mg Nebulizer Khalif Espinosa MD Albuterol Sulfate (Proventil) (2.5 MG/3ML) 0.083% inhalation solution 2.5 mg 2.5 mg Nebulizer PRN Khalif Pierre MD 2.5 mg at 12/18/22 1159 Past Medical History: Diagnosis Date NEMESIO (acute kidney injury) (HCC) 04/30/2022 Diabetes (HCC) Heart failure, diastolic, due to HTN (HCC) 01/25/2021 High blood pressure High cholesterol CHAPINCITO on CPAP 08/18/2017 ?[id number] Sleep apnea, obstructive Past Surgical History: Procedure Laterality Date ANKLE ARTHROSCOPY/SURGERY Right 07/2016 trimalleloar frac--ext fixation f/b ORIF - [facility] [place] [facility] COLONOSCOPY, DIAGNOSTIC (RECTUM) 01/01/2018 adenomatous polyp, repeat 5 yrs/COLONOSCOPY FLEXIBLE PROXIMAL DIAGNOSTIC performed by Dav Yap MD at ENDOSCOPY [facility] EGD, FLEXIBLE, DIAGNOSTIC 11/13/2021 esophageal polyp, gastritis / ESOPHAGOGASTRODUODENOSCOPY (EGD), FLEXIBLE, TRANSORAL, DIAGNOSTIC performed by Emelia Conley DO at ENDOSCOPY [facility] EGD, FLEXIBLE, DIAGNOSTIC N/A 03/20/2022 ESOPHAGOGASTRODUODENOSCOPY (EGD), FLEXIBLE, TRANSORAL, DIAGNOSTIC performed by Darian [place] MD at[facility] EGD, FLEXIBLE, DIAGNOSTIC N/A 06/16/2022 ESOPHAGOGASTRODUODENOSCOPY (EGD), FLEXIBLE, TRANSORAL, DIAGNOSTIC performed by Darian [place] MD at[facility]OSCOPY [facility] EGD, FLEXIBLE, ENDO MUCOSAL RESECTION 01/24/2022 GEJ polyp - LGD, HGD / [facility] EGD, W/ENDOSCOPIC US 11/13/2021 Barretts w/ HGD, fatty liver / ESOPHAGOGASTRODUODENOSCOPY (EGD), FLEXIBLE, TRANSORAL, ENDOSCOPIC ULTRASOUND performed by Emelia Conley DO at ENDOSCOPY [facility] EGD, W/ENDOSCOPIC US 01/24/2022 bile duct stone, enlarged LN - normal bx, eso mass - [facility]EARM/WRIST SURGERY NEC 1989 LUMBAR / SACRAL EPIDURAL, SINGLE LEVEL 02/04/2018 INJECTION TRANSFORAMINAL EPIDURAL LUMBAR OR SACRAL performed by Uday Masterson DO at OR [facility] REMOVE CATARACT, INSERT LENS PROSTH Right 01/22/2017 right EXTRACAPSULAR CATARACT REMOVAL WITH INTRAOCULAR LENS performed by Cheko Mcnamara MD at OR [facility] REMOVE CATARACT, INSERT LENS PROSTH Left 02/03/2017 left EXTRACAPSULAR CATARACT REMOVAL WITH INTRAOCULAR LENS performed by Cheko Mcnamara MD at OR [facility] SACROILIAC JOINT INJECT W/GUIDANCE 11/20/2021 INJECTION SACROILIAC JOINT performed by Uday Masterson DO at OR [facility] THIGH OR KNEE SURGERY NEC Left 07/2016 sg [facility]--quad repair US ABDOMEN LIMITED 08/27/2021 Possible cirrhotic liver and also possible fatty metamorphosis of the liver, uncomplicated cholelithiasis Social History Tobacco Use Smoking status: Former Packs/day: 2.00 Years: 13.00 Additional pack years: 0.00 Total pack years: 26.00 Types: Cigarettes Start date: 1974 Quit date: 1987 Years since quittin.1 Smokeless tobacco: Never Vaping Use Vaping Use: Never used Substance Use Topics Alcohol use: Not Currently Comment: quit 1987 Drug use: No Review of patient's allergies indicates: Allergen Reactions Sglt2 Inhibitors Other (Please comment) Genital infection Sulfa Antibiotics Rash Other Allergy (See Comments) Rash 1+ cocamidopropyl betaine Review of Systems: See HPI for pertinent positives. All others negative, other than those noted in HPI. Physical Exam BP 126/76 | Pulse 62 | Resp 18 | Wt 135.6 kg (299 lb) | BMI 40.55 kg/m | BSA 2.62 m General: No acute distress. A+Ox3. HEENT: Normocephalic. Atraumatic. Conjunctiva and sclera clear. NECK: No carotid bruits. No JVD. Carotid upstrokes are brisk. Heart: RRR. S1 and S2 noted/ + 2/6 systolic murmur Lungs: Clear. No wheezing rhonchi or rales. Abdomen: Normal bowel sounds. Soft. Nontender. Extremities: No edema. No clubbing or cyanosis. Pulses: radial=2/4, posterior tibial=2/4, dorsalis pedis = 2/4. NEURO: No focal deficits. PSYCH: Normal. Lab data/imaging study review: Echocardiogram 04/22/2022 at [facility] LVEF normal to 60% with moderate concentric LVH. No wall motion abnormalities. Grade 2 diastolic dysfunction. Mild aortic sclerosis without stenosis. Echo 01/21/2021 The primary indication after review was deemed appropriate and the examination was performed. Normal LV chamber size with severe concentric LVH. Normal LV systolic function without regional wall motion abnormality. Calculated LV ejection Fraction = 59% (bi-plane method of discs). Grade 2 diastolic dysfunction. Poorly visualized valvular structures. Mild tricuspid regurgitation. Impression/Plan: This is a medically complex 63 year old male who is being evaluated in the cardiology office for ongoing care/risk management for HFpEF, HTN,and HLD. 1. Chronic diastolic CHF (congestive heart failure), NYHA class 2 (HCC) 2. Stage 3 chronic kidney disease -Euvolemic on exam. Baseline weight roughly 290-292 lb. -NYHA class 3 1. Diuretic dosing per Nephrology, appreciate recommendations. Continue torsemide as ordered. Not currently taking metolazone. 2. Systolic murmur auscultated on exam. Possibly aortic sclerosis. Will update resting echocardiogram prior to follow-up. 3. HTN, goal below 140/90 Well controlled. 1. Continue carvedilol, lisinopril, and hydralazine as ordered. Refills provided. 4. Dyslipidemia, goal LDL below 100 5. Abnormal LFTs H/o significant mixed dyslipidemia, intolerant to statins due to elevated LFTs. 1. Follows with cardio [facility]TM clinic- on repatha 6. CHAPINCITO (obstructive sleep apnea) Compliant on CPAP. Continue. The patient agrees to the above plan and will call with additional questions or concerns. ER with all emergencies advised. Follow-up: Return in about 6 months (around 02/10/2024). | Check-out note: Follow up in 6 months, echo same day/prior. LEELEE I spent a total of 40 minutes on the date of service in preparation, delivery, and documentation ofthe care provided to Tony Delong excluding any time spent in the performance of separately billed services. REGGIE Kramer, Department of Cardiology This chart was completed in part utilizing [employer] Speech Voice Recognition Software. Grammatical errors, random word insertions, prounoun errors, and incomplete sentences are an occasional consequence of this system due to software limitations, ambient noise, and hardware issues. Any formal questions or concerns about the content, text, or information contained within the body of this dictation should be directly addressed to the provider for clarification. documented in this encounter Nursing Notes * Theodore Queen RN - 08/12/2023 1:37 PM EST Examination Room: room 4 Name: Tony Delong Date of : (1960). Reason for Visit: for follow up Interim Hospitalization(s): denies Problems/Concerns: denies Chest Pain/SOB: gets SILVA; denies chest pain [facility] Discussed: Yes [facility] is a way you can talk to your provider online through e-mail. Would you like to sign up? I can activate it for you? ALREADY ACTIVE Patient was instructed to not get up on the exam table until directed and assisted by their provider; patient is to remain seated in the chair/ wheelchair/ exam table for fall prevention and safety reasons. Patient is aware to have assistance to step down off exam table with personnel. Patient voiced full comprehension of instructions. documented in this encounter Plan of Treatment Upcoming Encounters Date Type Department Care Team (Latest Contact Info) Description 08/21/2023 8:30 AM EST Home Visit [facility] [place] [address] [place] [address] [place] Stevens, ANNE MARIE [address] [place] [address] 09/03/2023 3:00 PM EST Scheduled Telephone [facility], [facility] [address] [facility] [place] [address] Mery Calderon RDN [address] [facility] [place] [address] 09/16/2023 11:00 AM EDT Telemedicine Pharmacy, [facility] [address] [facility] [place] [address] Pharmac[address], [facility] [address] [facility] [place] [address] 10/06/2023 2:10 PM EDT Office Visit Family Medicine [address] [place] [phone] Bár[address] Rios[address] [place] [address] 10/27/2023 8:30 AM EDT Office Visit [facility] [address] [place] [phone] Lindsey Sheikh CRNP [address] [place] [address] 12/31/2023 11:45 AM EDT Hospital Encounter ENDO [facility], Endoscopy Room [facility] [address] [place] [phone] José Miguel Sifuentes MD [address] [place] [address] 12/31/2023 11:45 AM EDT - 12/31/2023 12:15 PM EDT Surgery ENDO [facility], Endoscopy Room [facility] [address] [place] [phone] José Miguel Sifuentes MD [address] [place] [address] COLONOSCOPY FLEXIBLE PROXIMAL DIAGNOSTIC 01/14/2024 12:30 PM EDT Cardiac Studies Cardiac Studies [address] [place] [address] 02/29/2024 3:20 PM EDT Office Visit Nephrology [address] [place] [address] Shivani Magallon MD [address] [place] [address] 08/08/2024 9:30 AM EST Nurse Only Ancillary [address] [place] [address] [place], Nurse Annual [address] [place] [address] Scheduled Orders Name Type Priority Associated Diagnoses Orde r Schedule EKG COMPLETE (TRACING AND INTERP) EKG Routine Chronic heart failure with preserved ejection fraction (HFpEF) (HCC) HTN, goal below 140/90 Dyslipidemia, goal LDL below 100 Abnormal LFTs CHAPINCITO on CPAP Chronic kidney disease, stage 3b (HCC) Ordered: 08/12/2023 ECHO, COMPLETE (2D), TRANS-THORACIC Echocardiology Routine Chronic heart failure with preserved ejection fraction (HFpEF) (HCC) HTN, goal below 140/90 Dyslipidemia, goal LDL below 100 Abnormal LFTs CHAPINCITO on CPAP Chronic kidney disease, stage 3b (HCC) Expected: 08/12/2023, Expires: 08/12/2024 Scheduled Procedures Name Priority Associated Diagnoses Date/Ti [...] this encounter Medical Devices Implanted Type Area Therapeutic Assistant Device Identifier Shelf Expiration Date Model / Serial / Lot Lens Intraoc 21.0 - [id number] - [id number] Implanted:Qty: 1 on 01/22/2017 by Cheko Mcnamara MD at OR [facility] Right: Eye [employer] 08/05/2021 [id number] / [id number] / [id number] Lens Intraoc 21.5 - [id number] - [id number] Implanted:Qty: 1 on 02/03/2017 by Cheko Mcnamara MD at OR [facility] Left: Eye [employer] 09/02/2021 [id number] / [id number] / [id number] documented as of this encounter Visit Diagnoses Diagnosis Chronic heart failure with preserved ejection fraction (HFpEF) ([facility])- Primary Chronic kidney disease, stage 3b (HCC) HTN, goal below 140/90 Unspecified essential hypertension Dyslipidemia, goal LDL below 100 Other and unspecified hyperlipidemia Abnormal LFTs Other abnormal blood chemistry CHAPINCITO on CPAP Obstructive sleep apnea (adult) (pediatric) Special screening for malignant neoplasms, colon documented [...] and were consensually agreed upon. Care Teams Psychiatric Security Nurse Relationship Specialty Start Date End Date Bárbara Rios DO [address] [place] [address] [place] [phone] PCP - General Internal Medicine 08/16/21 documented as of this encounter
--- OUTSIDE RECORDS SUMMARY | 2023-10-20 22:58 | External Medical Summary | Summary of Care ---
Author Name Unknown Organization [facility] Address [address] [facility] [place] [address] Phone [phone] Care Team Providers Care Bed Worker Name Role Phone Bárbara Rios Primary Care Provider [phone] Reason for Visit * Reason Comments [facility]: Maintenance Encounter Details Date Type Department Care Team (Late st Contact Info) Description 07/29/2023 1:30 PM EST Home Visit [facility], [facility] [address] [place] [address] Love Stevens, RN [address] [place] [address] Chronic heart failure with preserved ejection fraction [...] 32 UNITS WITH DINNER PLUS CORRECTION PER [facility] OR DIRECTED UP [...] a week. 9 mL 3 04/09/2023 Active Takju-3-kxhp Ethyl Esters 1 GM Oral Capsule (Lovaza) [...] in the Comments) Remote Patient Monitoring Vendor: [employer] Device(s): Connected Scale Self - Management Plan [...] yrs 01/04/2018,08/03/2017,07/03 Pneumococcal Conjugate Vacci ne, 20-valent ([id number]) 06/09/2022 Pneumococcal Polysaccharide PPV23 (Pneumovax) 03/06/2020 Seasonal [...] note were not included. [facility] Rep[facility] Visit Date: 07/29/2023 Time: 12:51 PM Name: Tony Delong : 1960 Current Concerns: Patient seen for follow up- CKD4, CHF, COPD, [place], DM2 Weights fluctuating--has required DTP- 07/12-07/14, 07/19, 07/22,07/23 Doubled afternoon dose only-07/16, 07/17, 07/24- 07/28 No recent BMP Blood sugar average- 7 days- 202 14 day average 203 Followed by [facility] at [place] Reports he knows he hasn't been eating [...] diet Elevate ble- prn edema Weigh daily- [facility] scale Blood sugars QID- managed by MTM Continue medications as prescribed Keep all upcoming MD appointments BMP to [facility] Fall precautions RN CM follow up in 4 weeks Home Interventions Provided: Labs/Specimen Collection Performed BMP Lab/Imaging Ordered BMP Consulted PCP/Specialist Reinforced current Plan of Care, including self-management and medication regimen Patient's 'Red Flags': Increase edema BLE Sob above baseline Weight gain 2lbs/24 hours- 3-5lbs in one week Patient Needs to Remember: Call [facility] with any medical concerns/ red flags Referrals [...] visits & schedule home visit with care steam plant records clerk(s)as indicated. Provider is in agreement with Plan of Care: Yes Scheduled to follow up with patient in 4 weeks. Lvoe Du RN 07/29/2023 12:51 PM documented in this encounter Plan of Treatment Upcoming Encounters Date Type Department Care Team (Late st Contact Info) Description 08/05/2023 9:30 AM EST Nurse Only Ancillary [address] [place] [address] [place], Nurse [address] [place] [address] 08/06/2023 10:00 AM EST Office Visit Cardiology, [facility] [address] [place] [address] Evita Brennan CRNP [address] [place] [address] 08/11/2023 11:30 AM EST Scheduled Telephone [facility], [facility] [address] [facility] [place] [phone] Mery Calderon RDN [address] [place] [address] 08/21/2023 8:30 AM EST Home Visit [facility], [facility] [address] [place] [address] Love Stevens, RN 132 [facility] [place] [address] 09/16/2023 11:00 AM EDT Telemedicine Pharmacy, [facility] [address] [place] [address] Pharmacist1, [facility] 200 [facility] [place] [address] 10/06/2023 2:10 PM EDT Office Visit Family Medicine [address] [place] [phone] Bárbara R[address] [place] [address] 10/27/2023 8:30 AM EDT Office Visit [facility] Disorders Ctr [facility] 132 [facility] [place] [phone] Lindsey Sheikh CRNP 132 [facility] [place] [address] 02/29/2024 3:20 PM EDT Office Visit Nephrology [address] [place] [address] Shivani Magallon MD [address] [place] [address] Scheduled Procedures Name Priority Associated Diagnoses Date/Ti me ESOPHAGOGASTRODUODENOSCOPY ( EGD), FLEXIBLE, TRANSORAL, DIAGNOSTIC Recall Arreola's esophagus with dysplasia COLONOSCOPY FLEXIBLE PROXIMAL DIAGNOSTIC Recall History of colon polyps Health Maintenance Due Date Last Done Comments HIV Screening 1974 Alpha-1 Antitrypsin 1977 COLONOSCOPY-EVERY 5 YRS AGES 18-100 01/01/2023 01/01/2018, 01/01/2018 COVID-19 Vaccine (3 - 2022- season) 2023 12/10/2020, 11/12/2020 Depression Screening 07/21/2023 [...] this encounter Medical Devices Implanted Type Area Brick Setter Device Identifier Shelf Expiration Date Model / Serial / Lot Lens Intraoc 21.0 - [id number] - [id number] Implanted:Qty: 1 on 01/22/2017 by Cheko Mcnamara MD at OR [facility] Right: Eye BAUSCH & LOMB 08/05/2021 [id number] / [id number] / [id number] Lens Intraoc 21.5 - [id number] - [id number] Implanted:Qty: 1 on 02/03/2017 by Cheko Mcnamara MD at OR [facility] Left: Eye BAUSCH & LOMB 09/02/2021 [id number] / [id number] / [id number] documented as of this encounter Procedures Procedure Name Priority Date/Time Associated Diagnosis Comments BASIC METABOLIC PANEL Routine 07/29/2023 2:09 PM EST Chronic heart failure with preserved ejection fraction (HCC) documented in this encounter Results * (ABNORMAL) BASIC METABOLIC PANEL (07/29/2023 2:09 PM EST) BUN 40(H) 6 - 20 mg/dL 07/30/2023 3:10 AM EST [facility] Creatinine 2.2(H) 0.6 - 1.2 mg/dL 07/30/2023 3:10 AM EST [facility] Estimated Glomerular Filtration Rate 32(L) >=60 mL/min 07/30/2023 3:10 AM EST [facility] Comment:eGFR is calculated b ased on the CKD-EPI 2020 equation Sodium 141 135 - 146 mmol/L 07/30/2023 3:10 AM EST [facility] Potassium 4.6 3.5 - 5.1 mmol/L 07/30/2023 3:10 AM EST [facility] Chloride 106 98 - 107 mmol/L 07/30/2023 3:10 AM EST [facility] CO2 24 22 - 32 mmol/L 07/30/2023 3:10 AM EST [facility] Anion Gap 11 7 - 15 mmol/L 07/30/2023 3:10 AM EST [facility] Glucose 208(H) 70 - 120 mg/dL 07/30/2023 3:10 AM EST [facility] Calcium 9.3 8.4 - 10.2 mg/dL 07/30/2023 3:10 AM EST [facility] Blood Venous blood specimen / Unknown Venipuncture / Unknown 07/29/2023 2:09 PM EST 07/29/2023 2:14 PM EST Sam Hedyelle SHEPARD LAB BLOOD ORDERABLES [facility] [address] [place] [address] documented in this encounter Visit Diagnoses Diagnosis Chronic heart [...] and were consensually agreed upon. Care Teams Bed Worker Relationship Specialty Start Date End Date Bárbara Rios DO [address] [place] [address] [place] [address] PCP - General Internal Medicine 08/16/21 documented as of this encounter
--- OUTSIDE RECORDS SUMMARY | 2023-10-20 22:58 | External Medical Summary | Summary of Care ---
Author Name Unknown Organization [facility] Address [address] [facility] [place] [address] Phone [phone] Care Team Providers Care Supervisor Stave Cutting Name Role Phone Bárbara Rios Primary Care Provider [phone] Reason for Visit * Reason Onset Date Comments [facility]: Maintenance 08/14/2023 Encounter Details Date Type Department Care Team (Late st Contact Info) Description 08/14/2023 11:30 AM EST Scheduled Telephone [facility], [facility] [address] [place] [address] Coordinator, [facility] [address] [place] [address] Allergies Active Allergy Reactions Criticality Noted Date Comments Other Allergy (See Comments) Rash Low 10/13/2022 1+ cocamidopropyl betaine Sglt2 Inhibitors Other (Please comment) High 09/04/2020 Genital infection Sulfa Antibiotics Rash 10/15/2016 documented as of this encounter (statuses as of 08/14/2023) Medications Medication Sig Dispensed Refills Start Date [...] 32 UNITS WITH DINNER PLUS CORRECTION PER [facility] OR DIRECTED UP TO 120 UNITS [...] a week. 9 mL 3 04/09/2023 Active Mqldj-6-kape Ethyl Esters 1 GM Oral Capsule (Lovaza) [...] as of this encounter (statuses as of 08/14/2023) Active Problems Problem Noted Date Diagnosed Date [...] in the Comments) Remote Patient Monitoring Vendor: [employer] Device(s): Connected Scale Self - Management Plan [...] as of this encounter (statuses as of 08/14/2023) Resolved Problems Problem Noted Date Diagnosed Date [...] as of this encounter (statuses as of 08/14/2023) Immunizations Name Administration Dates Next Due COVID-19 mRNA, LNP-s, No Pre serve, 2-Dose Series (Moderna) 12/10/2020,11/12/2020 Hepatitis B, 20+ yrs 01/04/2018,08/03/2017,07/03 Pneumococcal Conjugate Vacci ne, 20-valent ([id number]) 06/09/2022 Pneumococcal Polysaccharide PPV23 (Pneumovax) 03/06/2020 Seasonal [...] Encounter - Mary Jane Moser RN - 08/14/2023 8:38 AM EST Images from the original note were not included. [facility] Telephonic Nurse Follow-Up Call [facility] Subprogram: Focused Care Management (3-9 months) Follow Up Call Type: 24 hour follow up Acute issue requiring follow-up call: Remote Patient Monitoring Trigger Objective: 08/12/2023 1:40 PM 08/05/2023 9:47 AM 07/29/2023 1:30 PM 07/22/2023 3:00 PM 06/26/2023 9:37 AM VITALS ACROSS ENCOUNTERS BP 126/76 124/60 132/72 116/62 158/74 Pulse 62 81 64 64 76 Weight 135.6 kg 138 kg BMI 41.25 [...] "LEFT VENTRICULAR EJECTION FRACTION" Remote Patient Monitoring: Oxygen Needs: NO supplemental oxygen needs identified DME Needs: NO DME needs identified Medications: Current DTP: Double dose of Torsemide for 3 days ( 80 mg AM, 40 mg PM ) Subjective: Condition Status: Improvement in symptoms but not at baseline Current Concerns: Spoke with patient. Reports he can't tell what is what, he currently has the FLU also so feels lousy from that. SOB is better, still some abdominal bloating but has 2 more days of DTP so hopeful it will help with that Aware to hydrate up to his 2L restrictions Watch the salt Rest Call [facility] with any new, worsening or non-resolving symptoms. PT agreed Disposition: Issue resolved. All appropriate follow up scheduled. Future Visits Scheduled: Future Appointments-next 60 days Date/Time Provider Specialty Dept Phone 08/14/2023 11:30 AM Coordinator, Morales Aldana [facility] [phone] 08/15/2023 9:30 AM Region, [facility] [phone] 08/21/2023 8:30 AM Love Stevens, RN [facility] [phone] 09/03/2023 3:00 PM Mery Calderon RDN [facility] [phone] 09/16/2023 11:00 AM Pharmacist1, [facility] [phone] 10/06/2023 2:10 PM (Arrive by 1:55 PM) Bárbara Rios DO Family Medicine [phone] 10/27/2023 8:30 AM (Arrive by 8:15 AM) Lindsey Sheikh CRNP Sleep Disorders [phone] 01/14/2024 12:30 PM ACT TUTOR [facility] Cardiac Studies [phone] 02/29/2024 3:20 PM (Arrive by 3:05 PM) Shivani Magallon MD Nephrology [phone] 08/08/2024 9:30 AM [place], Nurse Annual Wellness Ancillary [phone] Mary Jane Moser, RN documented in this encounter Plan of Treatment Upcoming Encounters Date Type Department Care Team (Latest Contact Info) Description 08/15/2023 9:30 AM EST Scheduled Telephone [facility], [address] [place] [address] [facility], Nurse [address] [address] 08/21/2023 8:30 AM EST Home Visit [facility], [address] [place] [address] Love Stevens RN [address] [place] [address] [place] [address] 09/03/2023 3:00 PM EST Scheduled Telephone [facility], [facility] [address] [facility] [address] Mery Calderon RDN [address] [facility] [address] 09/16/2023 11:00 AM EDT Telemedicine Pharmacy, [facility] 200 [facility] [place] [address] Pharmacist1, [facility] 200 [facility] [address] 10/06/2023 2:10 PM EDT Office Visit Family Medicine [address] [place] [phone] Bárbara Rios[address] [place] [address] 10/27/2023 8:30 AM EDT Office Visit Sleep Disorders Ctr [facility] [address] [place], [place] [phone] Lindsey Sheikh CRNP [address] [place] [address] 12/31/2023 11:45 AM EDT Hospital Encounter ENDO [facility], Endoscopy Room [facility] [address] [place] [phone] José Miguel Sifuentes MD [address] [place], [place] [address] 12/31/2023 11:45 AM EDT - 12/31/2023 12:15 PM EDT Surgery ENDO [facility], Endoscopy Room [facility] [address] [place] [phone] José Miguel Sifuentes MD [address] [place] [address] COLONOSCOPY FLEXIBLE PROXIMAL DIAGNOSTIC 01/14/2024 12:30 PM EDT Cardiac Studies Cardiac Studies [address] [place] [address] 02/29/2024 3:20 PM EDT Office Visit Nephrology [address] [place] [address] Shivani Magallon MD 200 [facility] [address] 08/08/2024 9:30 AM EST Nurse Only Ancillary [address] [place] [address] [place], Nurse [address] [place] [address] Scheduled Procedures Name Priority Associated Diagnoses Date/Ti [...] this encounter Medical Devices Implanted Type Area Behaviorist Device Identifier Shelf Expiration Date Model / Serial / Lot Lens Intraoc 21.0 - [id number] - [id number] Implanted:Qty: 1 on 01/22/2017 by Cheko Mcnamara MD at OR [facility] Right: Eye BAUSCH & LOMB 08/05/2021 [id number] / [id number] / [id number] Lens Intraoc 21.5 - [id number] - [id number] Implanted:Qty: 1 on 02/03/2017 by Cheko Mcnamara MD at OR [facility] Left: Eye BAUSCH & LOMB 09/02/2021 [id number] / [id number] / [id number] documented as of this encounter Advance Directives [...] and were consensually agreed upon. Care Teams Supervisor Stave Cutting Relationship Specialty Start Date End Date Bárbara Rios DO [address] [place] [address] [place] [address] PCP - General Internal Medicine 08/16/21 documented as of this encounter
--- OUTSIDE RECORDS SUMMARY | 2023-10-20 22:58 | External Medical Summary | Summary of Care ---
Author Name Unknown Organization [facility] Address [address] [facility] [place] [address] Phone [phone] Care Team Providers Care Diffusion Operator Name Role Phone Bárbara Rios Primary Care Provider [phone] Reason for Visit * Reason Onset Date Comments Medical Nutrition Therapy 08/11/2023 Encounter Details Date Type Department Care Team (Latest Contact Info) Description 08/11/2023 11:30 AM EST Scheduled Telephone [facility], [facility] [address] [facility] [place] [address] Mery Calderon, RDN [address] [facility] [place] [address] 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)* Allergies Active Allergy Reactions Criticality Noted Date Comments Other Allergy (See Comments) Rash Low 10/13/2022 1+ cocamidopropyl betaine Sglt2 Inhibitors Other (Please comment) High 09/04/2020 Genital infection Sulfa Antibiotics Rash 10/15/2016 documented as of this encounter (statuses as of 08/11/2023) Medications Medication Sig Dispensed Refills Start Date [...] 32 UNITS WITH DINNER PLUS CORRECTION PER [facility] OR DIRECTED UP TO 120 [...] a week. 9 mL 3 04/09/2023 Active Elqwe-0-rmch Ethyl Esters 1 GM Oral Capsule (Lovaza) [...] as of this encounter (statuses as of 08/11/2023) Active Problems Problem Noted Date Diagnosed Date [...] or up the stairs") Medication Regimen: Beta Ritchei Therapy: Carvedilol ARIANNA Inhibitor/ARB Therapy: Lisinopril Diuretic therapy: Torsemide SGLT2 Inhibitor: No Current SGLT2 (Describe in the Comments) Remote Patient Monitoring Vendor: [facility] Device(s): Connected Scale Self - [...] 08/18/2017 Last Assessment & Plan: Continues on [employer] 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 repatha History of [...] as of this encounter (statuses as of 08/11/2023) Resolved Problems Problem Noted Date Diagnosed Date [...] as of this encounter (statuses as of 08/11/2023) Immunizations Name Administration Dates Next Due COVID-19 mRNA, LNP-s, No Pre serve, 2-Dose Series (Moderna) 12/10/2020,11/12/2020 Hepatitis B, 20+ yrs 01/04/2018,08/03/2017,07/03 Pneumococcal Conjugate Vacci ne, 20-valent ([id number]) 06/09/2022 Pneumococcal Polysaccharide PPV23 (Pneumovax) 03/06/2020 Seasonal [...] Miscellaneous Notes * Telephone Encounter - Mery Calderon RDN - 08/10/2023 3:34 PM EST NUTRITION FOLLOW-UP NOTE - OUTPATIENT isinger Name: Tony Delong Location: [facility] Date: 08/10/2023 Time: 3:34 PM Multiple attempts were made to reach Patient this date (via phone) with no success, therefore, Nutrition Assessment Follow Up could not be completed as scheduled this date. This dietitian left a detailed message on voice mail with purpose of call, contact info, and encouraged Patient to return call. Will reschedule Patient for the near future. Reason for Nutrition Follow-up: Heart Failure, Overweight/Obesity, Type 2 Diabetes, CKD Mery Calderon RDN [facility] documented in this encounter Plan of Treatment Upcoming Encounters Date Type Department Care Team (Latest Contact Info) Description 08/12/2023 2:00 PM EST Office Visit Cardiology, [address] [place] [address] Evita Brennan CRNP [address] [place] [address] 08/21/2023 8:30 AM EST Home Visit [facility], [facility] [address] [place] [address] Love Stevens, ANNE MARIE [address] [place] [address] 09/03/2023 3:00 PM EST Scheduled Telephone [facility], [facility] [address] [facility] [place] [address] Mery Calderon, RDN [address] [facility] [place] [address] 09/16/2023 11:00 AM EDT Telemedicine Pharmacy, [facility] 200 [facility] [place] [address] Pharmacist1, [facility] 200 [facility] [place] [address] 10/06/2023 2:10 PM EDT Office Visit Family Medicine [address] [phone] Bárbara Rios[address] [place] [address] 10/27/2023 8:30 AM EDT Office Visit [facility] Disorders Ctr [facility] [place] [address] [place] [phone] Lindsey Sheikh CRNP [address] [place] [address] 12/31/2023 11:45 AM EDT Hospital Encounter ENDO [facility], Endoscopy Room [facility] 132 [place] [phone] José Miguel Sifuentes MD [address] [place] [address] 12/31/2023 11:45 AM EDT - 12/31/2023 12:15 PM EDT Surgery ENDO [facility], Endoscopy Room [facility] [address] [place] [phone] José Miguel Sifuentes MD [address] [place] [address] COLONOSCOPY FLEXIBLE PROXIMAL DIAGNOSTIC 02/29/2024 3:20 PM EDT Office Visit Nephrology [address] [place] [address] Shivani Magallon MD [address] [facility] [address] 08/08/2024 9:30 AM EST Nurse Only Ancillary [address] [place] [address] [place], Nurse [address] [place] [address] Scheduled Procedures Name Priority Associated Diagnoses Date/Ti [...] this encounter Medical Devices Implanted Type Area Corporate Safety Director Device Identifier Shelf Expiration Date Model / Serial / Lot Lens Intraoc 21.0 - [id number] - [id number] Implanted:Qty: 1 on 01/22/2017 by Cheko cMnamara MD at OR [facility] Right: Eye BAUSCH & LOMB 08/05/2021 [id number] / [id number] / [id number] Lens Intraoc 21.5 - [id number] - [id number] Implanted:Qty: 1 on 02/03/2017 by Cheko Mcnamara MD at [facility] Left: Eye BAUSCH & LOMB 09/02/2021 [id number] / [id number] / [id number] documented as of this encounter Visit Diagnoses [...] and were consensually agreed upon. Care Teams Diffusion Operator Relationship Specialty Start Date End Date Bárbara Rios DO [address] [place] [address] [place] [address] PCP - General Internal Medicine 08/16/21 documented as of this encounter
--- OUTSIDE RECORDS SUMMARY | 2023-10-20 22:58 | External Medical Summary | Summary of Care ---
Author Name Unknown Organization [facility] Address [address] [facility] [place] [address] Phone [phone] Care Team Providers Care Signal Manager Name Role Phone Bárbara Rios Primary Care Provider [phone] Reason for Visit * Reason Onset Date Comments [facility]: Maintenance 08/13/2023 Encounter Details Date Type Department Care Team (Late st Contact Info) Description 08/13/2023 Telephone [facility], [facility] [address] [facility] [place] [address] [facility], Nurse [facility] [address] [facility] [place] [address] [facility]: Maintenance Allergies Active Allergy Reactions Criticality Noted Date Comments Other Allergy (See Comments) Rash Low 10/13/2022 1+ cocamidopropyl betaine Sglt2 Inhibitors Other (Please comment) High 09/04/2020 Genital infection Sulfa Antibiotics Rash 10/15/2016 documented as of this encounter (statuses as of 08/13/2023) Medications Medication Sig Dispensed Refills Start Date [...] a week. 9 mL 3 04/09/2023 Active Vdrbk-0-xtfx Ethyl Esters 1 GM Oral Capsule (Lovaza) [...] as of this encounter (statuses as of 08/13/2023) Active Problems Problem Noted Date Diagnosed Date [...] in the Comments) Remote Patient Monitoring Vendor: [employer] Device(s): Connected Scale Self - Management Plan [...] as of this encounter (statuses as of 08/13/2023) Resolved Problems Problem Noted Date Diagnosed Date [...] as of this encounter (statuses as of 08/13/2023) Immunizations Name Administration Dates Next Due COVID-19 mRNA, LNP-s, No Pre serve, 2-Dose Series (Moderna) 12/10/2020,11/12/2020 Hepatitis B, 20+ yrs 01/04/2018,08/03/2017,07/03 Pneumococcal Conjugate Vacci ne, 20-valent ([id number]) 06/09/2022 Pneumococcal Polysaccharide PPV23 (Pneumovax) 03/06/2020 Seasonal [...] Telephone Encounter - Alexandra Mcgraw LPN - 08/13/2023 11:35 AM EST Images from the original note were not included. [facility] Remote Patient Monitoring Able to contact patient: Trigger type: Abnormal reading(s): AMC (Advanced Monitored Caregiving): Scale: Baseline weight: 293 lbs Trigger weight: 292.8 lbs; weight increased 2.6 lbs in 1 day(s) Trigger priority per AMC: high Patient takes diuretic medication: Yes, reviewed current diuretic use: Name of medication: Torsemide Dose: 40 mg in AM, 20 mg 4 hrs later Frequency: daily Symptom review: Edema: ABD distention SOB: Pt states a little bit more SOB Diet Reviewed: Yes. Patient has had any foods high in sodium: No Fluid Intake Reviewed: Yes. Patient is on a fluid restriction: Yes, restriction amount in milliliters or liters: 2 Adherent to restriction: No, pt reports he had little to much to drink yesterday Self-Management Plan Reviewed: DTP (Diuretic Titration Protocol): Describe DTP: Name of medication(s): Torsemide Dose: 80 mg AM, 40 MG in PM Frequency: x 3 days Used in past 2 weeks: No Risk assignment recommendation: Moderate risk findings (check [...] 90 WITH symptoms Additional risk selection justification: [facility] trigger for weight gain Call to pt reports increased SOB and ABD distention Pt states no missed doses of diuretic, States he drank to much yesterday Reports adhering to sodium restriction. Denies CP, -BLE edema DTP initiated, f/u calls scheduled Overall risk and identified plan: High risk: Next day follow up call scheduled Route to RNCM (Registered Nurse Stone [employer]er) and Advance Practitioner Route to RMC (Remote Medical Coordinator) Initiate DTP (Diuretic Titration Protocol) if applicable documented in this encounter Plan of Treatment Upcoming Encounters Date Type Department Care Team (Latest Contact Info) Description 08/14/2023 11:30 AM EST Scheduled Telephone [facility] [place], [facility] [address] [place] [address] Coordinator, [facility] [address] [place] [address] 08/15/2023 9:30 AM EST Scheduled Telephone [facility], [facility] [address] [place] [address] Region, Nurse [facility] [address] [place] [address] 08/21/2023 8:30 AM EST Home Visit [facility], [facility] [address] [place] [address] [place] Stevens, ANNE MARIE [address] [place] [address] 09/03/2023 3:00 PM EST Scheduled Telephone [facility], [facility] [address] [facility] [place] [address] Mery Calderon, RDN [address] [facility] [place] [address] 09/16/2023 11:00 AM EDT Telemedicine Pharmacy, [facility] 200 [facility] [place] [address] Pharmacist1, [facility] 200 [facility] [place] [address] 10/06/2023 2:10 PM EDT Office Visit Family Medicine [address] [phone] Bárbara Rios[address] [place] [address] 10/27/2023 8:30 AM EDT Office Visit Sleep Disorders Ctr [facility] [address] [place] [phone] Lindsey Sheikh CRNP [address] [place] [address] 12/31/2023 11:45 AM EDT Hospital Encounter ENDO [facility], Endoscopy Room [facility] [address] [phone] José Miguel Sifuentes MD [address] [place] [address] 12/31/2023 11:45 AM EDT - 12/31/2023 12:15 PM EDT Surgery ENDO [facility], Endoscopy Room [facility] [address] [place] [phone] José Miguel Sifuentes MD [address] [place] [address] COLONOSCOPY FLEXIBLE PROXIMAL DIAGNOSTIC 01/14/2024 12:30 PM EDT Cardiac Studies Cardiac Studies [address] [place] [address] 02/29/2024 3:20 PM EDT Office Visit Nephrology [address] [place] [address] Shivani Magallon MD [address] [facility] [address] 08/08/2024 9:30 AM EST Nurse Only Ancillary [address] [place] [address] [place], Nurse [address] [place] [address] Scheduled Procedures Name Priority Associated Diagnoses Date/Ti [...] this encounter Medical Devices Implanted Type Area Service Center Coordinator Device Identifier Shelf Expiration Date Model / Serial / Lot Lens Intraoc 21.0 - [id number] - [id number] Implanted:Qty: 1 on 01/22/2017 by Cheko Mcnamara MD at OR [facility] Right: Eye [employer] 08/05/2021 [id number] / [id number] / [id number] Lens Intraoc 21.5 - [id number] - [id number] Implanted:Qty: 1 on 02/03/2017 by Cheko Mcnamara MD at OR [facility] Left: Eye [employer]OM[employer] 09/02/2021 [id number] / [id number] / [id number] documented as of this encounter Advance Directives [...] and were consensually agreed upon. Care Teams Signal Manager Relationship Specialty Start Date End Date Bárbara Rios DO [address] [place] [address] [place] [address] PCP - General Internal Medicine 08/16/21 documented as of this encounter
--- OUTSIDE RECORDS SUMMARY | 2023-10-20 22:58 | External Medical Summary | Summary of Care ---
Author Name Unknown Organization [facility] Address [address] [facility] [place] [address] Phone [phone] Care Team Providers Care Caseworker Protective Services Name Role Phone Bárbara Rios Primary Care Provider [phone] Reason for Visit * Reason Onset Date Comments [facility]: Maintenance 08/15/2023 Encounter Details Date Type Department Care Team (Late st Contact Info) Description 08/15/2023 9:30 AM EST Scheduled Telephone [facility], [facility] 132 [facility] [place] [address] [facility], Nurse [facility] 132 [facility] [place] [address] Allergies Active Allergy Reactions Criticality Noted Date Comments Other Allergy (See Comments) Rash Low 10/13/2022 1+ cocamidopropyl betaine Sglt2 Inhibitors Other (Please comment) High 09/04/2020 Genital infection Sulfa Antibiotics Rash 10/15/2016 documented as of this encounter (statuses as of 08/15/2023) Medications Medication Sig Dispensed Refills Start Date [...] UNITS WITH DINNER PLUS CORRECTION PER [facility] OR DIRECTED UP TO 120 [...] a week. 9 mL 3 04/09/2023 Active Vkuyi-5-vbfm Ethyl Esters 1 GM Oral Capsule (Lovaza) [...] as of this encounter (statuses as of 08/15/2023) Active Problems Problem Noted Date Diagnosed Date [...] in the Comments) Remote Patient Monitoring Vendor: [employer] Device(s): Connected Scale Self - Management Plan [...] as of this encounter (statuses as of 08/15/2023) Resolved Problems Problem Noted Date Diagnosed Date [...] as of this encounter (statuses as of 08/15/2023) Immunizations Name Administration Dates Next Due COVID-19 mRNA, LNP-s, No Pre serve, 2-Dose Series (Moderna) 12/10/2020,11/12/2020 Hepatitis B, 20+ yrs 01/04/2018,08/03/2017,07/03 Pneumococcal Conjugate Vacci ne, 20-valent ([id number]) 06/09/2022 Pneumococcal Polysaccharide PPV23 (Pneumovax) 03/06/2020 Seasonal [...] encounter Miscellaneous Notes * Telephone Encounter - Nimco Hay RN - 08/15/2023 11:42 AM EST Images from the original note were not included. Pt scheduled for f/u on DTP. Double dose of torsemide for 3 days: 80mg AM, 40mg PM; today is day 2. Call placed to pt. No answer. LMOM req return call for any issues or concerns. documented in this encounter Plan of Treatment Upcoming Encounters Date Type Department Care Team (Latest Contact Info) Description 08/21/2023 8:30 AM EST [facility] Visit [facility], [facility] 132 [facility] [place] [address] [place], ANNE MARIE 132 [facility] [place] [address] 09/03/2023 3:00 PM EST Scheduled Telephone [facility], [facility] [address] [facility] [place] [address] Mery Calderon RDN [address] [facility] [place] [address] 09/16/2023 11:00 AM EDT Telemedicine Pharmacy, [facility] [address] [address] Pharmacist1, [facility] [address] [place] [address] 10/06/2023 2:10 PM EDT Office Visit Family Medicine [address] [place] [phone] Bárbara Rios[address] [place] [address] 10/27/2023 8:30 AM EDT Office Visit Sleep Disorders Ctr [facility] [employer] [facility] [address] [place] [phone] Lindsey Sheikh CRNP [address] [place] [address] 12/31/2023 11:45 AM EDT Hospital Encounter ENDO [facility], Endoscopy Room [facility] [address] [place] [phone] José Miguel Sifuentes MD [address] [place] [address] 12/31/2023 11:45 AM EDT - 12/31/2023 12:15 PM EDT Surgery ENDO [facility], Endoscopy Room [facility] [address] [place] [phone] José Miguel Sifuentes MD [address] [place] [address] COLONOSCOPY FLEXIBLE PROXIMAL DIAGNOSTIC 01/14/2024 12:30 PM EDT Cardiac Studies Cardiac Studies [address] [place] [address] 02/29/2024 3:20 PM EDT Office Visit Nephrology [address] [place] [address] Shivani Magallon MD [address] [place] [address] 08/08/2024 9:30 AM EST Nurse Only Ancillary Lazaro Hyde [address] [place] [address] [place], Nurse [address] [place] [address] Scheduled Procedures Name Priority Associated Diagnoses Date/Ti [...] this encounter Medical Devices Implanted Type Area Continuous Dryout Operator Helper Device Identifier Shelf Expiration Date Model / Serial / Lot Lens Intraoc 21.0 - [id number] - [id number] Implanted:Qty: 1 on 01/22/2017 by Cheko Mcnamara MD at OR [facility] Right: Eye [employer] 08/05/2021 [id number] / [id number] / [id number] Lens Intraoc 21.5 - [id number] - [id number] Implanted:Qty: 1 on 02/03/2017 by Cheko Mcnamara MD at OR [facility] Left: Eye [employer]OM[employer] 09/02/2021 [id number] / [id number] / [id number] documented as of this encounter Advance Directives [...] and were consensually agreed upon. Care Teams Caseworker Protective Services Relationship Specialty Start Date End Date Bárbara Rios DO [address] [place] [address] [place] [address] PCP - General Internal Medicine 08/16/21 documented as of this encounter
--- OUTSIDE RECORDS SUMMARY | 2023-10-20 22:58 | External Medical Summary | Summary of Care ---
Author Name Unknown Organization [facility] Address [address] [facility] [place] [address] Phone [phone] Care Team Providers Care Director Of Community Center Name Role Phone Bárbara Rios Primary Care Provider [phone] Reason for Visit * Reason Onset Date Comments [facility]: Maintenance 08/07/2023 Encounter Details Date Type Department Care Team (Late st Contact Info) Description 08/07/2023 10:00 AM EST Scheduled Telephone [facility], [facility] [address] [place] [address] Coordinator, [facility] [address] [place] [address] Allergies Active Allergy Reactions Criticality Noted Date Comments Other Allergy (See Comments) Rash Low 10/13/2022 1+ cocamidopropyl betaine Sglt2 Inhibitors Other (Please comment) High 09/04/2020 Genital infection Sulfa Antibiotics Rash 10/15/2016 documented as of this encounter (statuses as of 08/07/2023) Medications Medication Sig Dispensed Refills Start Date [...] a week. 9 mL 3 04/09/2023 Active Zvpds-3-uecq Ethyl Esters 1 GM Oral Capsule (Lovaza) [...] as of this encounter (statuses as of 08/07/2023) Active Problems Problem Noted Date Diagnosed Date [...] in the Comments) Remote Patient Monitoring Vendor: [employer] Device(s): Connected Scale Self - Management Plan [...] as of this encounter (statuses as of 08/07/2023) Resolved Problems Problem Noted Date Diagnosed Date [...] as of this encounter (statuses as of 08/07/2023) Immunizations Name Administration Dates Next Due COVID-19 mRNA, LNP-s, No Pre serve, 2-Dose Series (Moderna) 12/10/2020,11/12/2020 Hepatitis B, 20+ yrs 01/04/2018,08/03/2017,07/03 Pneumococcal Conjugate Vacci ne, 20-valent ([id number]) 06/09/2022 Pneumococcal Polysaccharide PPV23 (Pneumovax) 03/06/2020 Seasonal [...] Telephone Encounter - Cassandra Rivero RN - 08/07/2023 11:47 AM EST Images from the original note were not included. [facility] Telephonic Nurse Follow-Up Call [facility] Subprogram: Focused Care Management (3-9 months) Follow Up Call Type: 72 HR PC Acute issue requiring follow-up call: Other: Cold sxs Objective: 08/05/2023 9:47 AM 07/29/2023 1:30 PM 07/22/2023 3:00 PM 06/26/2023 9:37 AM 06/19/2023 1:37 PM VITALS ACROSS ENCOUNTERS BP 124/60 132/72 116/62 158/74 147/65 Pulse 81 64 64 76 67 Weight 138 kg 138.3 kg BMI 41.25 BMI 41.26 kg/m2 40.86 kg/m2 Lab Results Component Value Date BLOOD, [...] resolved and back to baseline Current Concerns: Pt feels bck to baseline Disposition: RNCM visit scheduled Future Visits Scheduled: Future Appointments-next 60 days Date/Time Provider Specialty Dept Phone 08/11/2023 11:30 AM Mery Calderon RDN [facility] [phone] 08/21/2023 8:30 AM Love Stevens RN [facility] [phone] 09/16/2023 11:00 AM Pharmacist, [facility] [phone] 10/06/2023 2:10 PM (Arrive by 1:55 PM) Bárbara Rios DO Family Medicine [phone] 10/27/2023 8:30 AM (Arrive by 8:15 AM) Lindsey Sheikh CRNP Sleep Disorders [phone] 11/23/2023 8:30 AM (Arrive by 8:15 AM) Evita Brennan CRNP Cardiology [phone] 02/29/2024 3:20 PM (Arrive by 3:05 PM) Shivani Magallon MD Nephrology [phone] 08/08/2024 9:30 AM Nurse [facility] Ancillary [phone] Cassandra Rivero RN documented in this encounter Plan of Treatment Upcoming Encounters Date Type Department Care Team (Latest Contact Info) Description 08/11/2023 11:30 AM EST Scheduled Telephone [facility], [facility] [address] [facility] [place] [address] Mery Calderon RDN [address] [facility] [place] [address] 08/21/2023 8:30 AM EST Home Visit [facility], [facility] 132 [place] [address] Love Stevens, RN 132 [place] [address] 09/16/2023 11:00 AM EDT Telemedicine Pharmacy, [facility] 200 [facility] [place] [address] Pharmacist1, [facility] 200 [facility] [place] [address] 10/06/2023 2:10 PM EDT Office Visit Family [address] [place] [phone] Bárbara Rios[address] [place] [address] 10/27/2023 8:30 AM EDT Office Visit Sleep Disorders Ctr [facility] 132 [place] [phone] Lindsey Sheikh CRNP 132 [place] [address] 11/23/2023 8:30 AM EDT Office Visit Cardiology, [facility] 132 [place] [address] Evita Brennan CRNP 132 [place] [address] 12/31/2023 11:45 AM EDT Hospital Encounter ENDO [facility], Endoscopy Room [facility] 132 [place] [phone] José Miguel Sifuentes MD [address] [place] [address] 12/31/2023 11:45 AM EDT - 12/31/2023 12:15 PM EDT Surgery ENDO [facility], Endoscopy Room [facility] [address] [place] [place] [phone] José Miguel Sifuentes MD [address] [place] [address] COLONOSCOPY FLEXIBLE PROXIMAL DIAGNOSTIC 02/29/2024 3:20 PM EDT Office Visit Nephrology [address] [place] [address] Shivani Magallon MD [address] [place] [address] 08/08/2024 9:30 AM EST Nurse Only Ancillary [address] [place] [address] [place], Nurse Annual [address] [place] [address] Scheduled Procedures Name Priority Associated Diagnoses Date/Ti [...] 05/29/2020, Additional history exists HbA1c 12/11/2023 06/11/2023, 09/2 01/2023, 12/17/2022, Additional history exists GFR 01/27/2024 [...] this encounter Medical Devices Implanted Type Area Digitizer Device Identifier Shelf Expiration Date Model / Serial / Lot Lens Intraoc 21.0 - [id number] - [id number] Implanted:Qty: 1 on 01/22/2017 by Chkeo Mcnamara MD at OR [facility] Right: Eye [employer] 08/05/2021 [id number] / [id number] / [id number] Lens Intraoc 21.5 - [id number] - [id number] Implanted:Qty: 1 on 02/03/2017 by Cheko Mcnamara MD at OR [facility] Left: Eye [employer]OMB 09/02/2021 [id number] / [id number] / [id number] documented as of this encounter Advance Directives [...] and were consensually agreed upon. Care Teams Director Of Community Center Relationship Specialty Start Date End Date Bárbara Rios DO [address] [place] [address] [place] [phone] PCP - General Internal Medicine 08/16/21 documented as of this encounter
--- OUTSIDE RECORDS SUMMARY | 2023-10-20 22:58 | External Medical Summary | Summary of Care ---
Author Name Unknown Organization [facility] Address [address] [facility] [place] [address] Phone [phone] Care Team Providers Care Dredging Inspector Name Role Phone Bárbara Rios Primary Care Provider [phone] Reason for Visit * Reason Onset Date Comments [facility]: Maintenance 08/05/2023 Encounter Details Date Type Department Care Team (Late st Contact Info) Description 08/05/2023 Telephone [facility], [facility] [address] [facility] [place] [address] [facility], Nurse [facility] [address] [place] [place] [address] [facility]: Maintenance Allergies Active Allergy [...] UNITS WITH DINNER PLUS CORRECTION PER [facility] OR DIRECTED UP [...] a week. 9 mL 3 04/09/2023 Active Agqni-2-qsiz Ethyl Esters 1 GM Oral Capsule (Lovaza) [...] in the Comments) Remote Patient Monitoring Vendor: [employer] Concierge Device(s): Connected Scale Self - Management Plan [...] yrs 01/04/2018,08/03/2017,07/03 Pneumococcal Conjugate Vacci ne, 20-valent ([id number]) 06/09/2022 Pneumococcal Polysaccharide PPV23 (Pneumovax) 03/06/2020 Seasonal [...] Miscellaneous Notes * Telephone Encounter - Janeth Kelley LPN - 08/05/2023 10:40 AM EST Images from the original note were not included. Received CB from [facility] Telephonic Nurse Follow-Up Call [facility] Subprogram: Focused Care Management (3-9 months) Follow Up Call Type: Routine follow up call / Status Check Acute issue requiring follow-up call: Other: wt gain Objective: 08/05/2023 9:47 AM 07/29/2023 1:30 PM [...] "LEFT VENTRICULAR EJECTION FRACTION" Remote Patient Monitoring: [facility] Scale: as below Oxygen Needs: NO supplemental oxygen needs identified DME Needs: NO DME needs identified Medications: No medication or dose adjustments made during acute episode Subjective: Condition Status: New symptoms Current Concerns: Denies sx of fluid overload, no CP, SOB, abdominal distention, LE edema. Does report he woke this AM with cold sx. NPC "the mucus gets caught in my throat and wont come up" No fever. Instructed Tylenol /OTC cold medication as needed per package instructions. Ambulate 6X a day, staywell hydrated. Call [facility] for Temp, worsening or new sx. Disposition: Follow up call scheduled for tomorrow with ROSCOE Director Of Loss Prevention Future Visits Scheduled: Future Appointments-next 60 days Date/Time Provider Specialty Dept Phone 08/06/2023 10:00 AM (Arrive by 9:45 AM) Evita Brennan CRNP Cardiology [phone] 08/11/2023 11:30 AM Mery Calderon RDN [facility] [phone] 08/21/2023 8:30 AM Love Stevens RN [facility] [phone] 09/16/2023 11:00 AM Pharmacist, [facility] [phone] 10/06/2023 2:10 PM (Arrive by 1:55 PM) Bárbara Rios DO Family Medicine [phone] 10/27/2023 8:30 AM (Arrive by 8:15 AM) Lindsey Sheikh CRNP Sleep Disorders [phone] 02/29/2024 3:20 PM (Arrive by 3:05 PM) Shivani Magallon MD Nephrology [phone] 08/08/2024 9:30 AM [place] Nurse [facility] [phone] Janeth Kelley LPN * Telephone Encounter - Alexandra Mcgraw LPN [...] answer left requesting a return call to [facility] at [phone] opt#3 documented in this encounter Plan of Treatment Upcoming Encounters Date Type Department Care Team (Latest Contact Info) Description 08/06/2023 10:00 AM EST Office Visit Cardiology, [facility] [address] [place] [address] Evita Brennan CRNP [address] [facility] [place] [address] 08/07/2023 10:00 AM EST Scheduled Telephone [facility], [facility] [address] [place] [address] Coordinator, [facility] [address] [place] [address] 08/11/2023 11:30 AM EST Scheduled Telephone [facility], [facility] [address] [place] [address] Mery Calderon RDN [address] [place] [address] 08/21/2023 8:30 AM EST Home Visit [facility], [facility] [address] [place] [address] Love Stevens, ANNE MARIE [address] [place] [address] 09/16/2023 11:00 AM EDT Telemedicine Pharmacy, [facility] [address] [place] [address] Pharmacist1, [facility] [address] [place] [address] 10/06/2023 2:10 PM EDT Office Visit Family Medicine [address] [place] [phone] Bár[address] Rios[address] [place] [address] 10/27/2023 8:30 AM EDT Office Visit [facility] [address] [place] [phone] Lindsey Sheikh CRNP [address] [place] [address] 12/31/2023 11:45 AM EDT Hospital Encounter ENDO [facility], Endoscopy Room [facility] [address] [place] [phone] José Miguel Sifuentes MD [address] [place] [address] 12/31/2023 11:45 AM EDT - 12/31/2023 12:15 PM EDT Surgery ENDO [facility], Endoscopy Room [facility] [address] [place] [phone] José Miguel Sifuentes MD [address] [place] [address] COLONOSCOPY FLEXIBLE PROXIMAL DIAGNOSTIC 02/29/2024 3:20 PM EDT Office Visit Nephrology [address] [place] [address] Shivani Magallon MD [address] [place] [address] 08/08/2024 9:30 AM EST Nurse Only Ancillary [place] [address] [place] [address] [place], Nurse Annual [address] [place] [address] Scheduled Procedures Name Priority Associated Diagnoses Date/Ti [...] this encounter Medical Devices Implanted Type Area Irrigation Tax Assessor Collector Device Identifier Shelf Expiration Date Model / Serial / Lot Lens Intraoc 21.0 - [id number] - [id number] Implanted:Qty: 1 on 01/22/2017 by Cheko Mcnamara MD at OR [facility] Right: Eye [employer] 08/05/2021 [id number] / [id number] / [id number] Lens Intraoc 21.5 - [id number] - [id number] Implanted:Qty: 1 on 02/03/2017 by Cheko Mcnamara MD at OR [facility] Left: Eye [employer] 09/02/2021 [id number] / [id number] / [id number] documented as of this encounter Advance Directives [...] and were consensually agreed upon. Care Teams Dredging Inspector Relationship Specialty Start Date End Date Bárbara Rios DO [address] [place] [address] [place] [address] PCP - General Internal Medicine 08/16/21 documented as of this encounter
--- OUTSIDE RECORDS SUMMARY | 2023-10-20 22:58 | External Medical Summary | Summary of Care ---
Author Name Unknown Organization [facility] Address [address] [facility] [place] [address] Phone [phone] Care Team Providers Care Stonework Supervisor Name Role Phone Bárbara Rios DO Primary Care Provider [phone] Reason for Referral * Ancillary Services (Within 30 days (routine)) - Authorized Specialty Diagnoses / Procedures Referred By Contac t Referred To Contact Gastroenterology Diagnoses Special screening for malignant neoplasms, colon Bárbara Rios DO [address] [place] [address] [place] [id number] Referral ID Status Reason Start Date Expiration Date Visits Requested Visits Authorized [id number] Authorized Ancillary Services Required 08/05/2023 999 999 Question Answer Referral Priority Within 30 days (routine) Where should this appointment be scheduled? [facility] Comments ALERT: Do not order for pediatric patients (18 years or younger). Cancel off screen and order PEDS GASTROENTEROLOGY CONSULT (Type: 1 visit only-Evaluate and Treat) The following Pt. Instructions are available: - Gastro Colonoscopy Prep Instructions [[id number]] - Gastro Colonoscopy Prep Instructions (Danish Version) [[id number]] Go to the Pt. Instructions section within the Visit Navigator to access. Colonoscopy ASGE Guidelines: Average risk screening (begin at age 50, 10 year intervals) ADDITIONAL INFORMATION 1. Is the patient on Coumadin? No 2. Is the patient on Pradaxa? No Reason for Visit * Reason Comments Adult Annual Wellness Visit, Subsequent Visit Encounter Details Date Type Department Care Team ([facility] Contact Info) Description 08/05/2023 9:30 AM EST Nurse Only Ancillary [place] [address] [place] [address] [place], Nurse Annual Wellness [address] [place] [address] [place] [phone] Adult Annual Wellness Visit, Subsequent Visit Allergies Active Allergy Reactions Criticality Noted Date [...] 32 UNITS WITH DINNER PLUS CORRECTION PER [facility] OR DIRECTED UP TO [...] a week. 9 mL 3 04/09/2023 Active Ieinw-4-rwzr Ethyl Esters 1 GM Oral Capsule (Lovaza) [...] the morning. 90 Tablet 3 07/13/2023 Active Betamethasone Dipropionate 0.05 % External Cream [...] in the Comments) Remote Patient Monitoring Vendor: [facility] Device(s): Connected Scale Self [...] Continues on lovaza 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 [employer] History of tobacco use 08/18/2017 CHAPINCITO on [...] yrs 01/04/2018,08/03/2017,07/03 Pneumococcal Conjugate Vacci ne, 20-valent ([id number]) 06/09/2022 Pneumococcal Polysaccharide PPV23 (Pneumovax) 03/06/2020 Seasonal [...] 1 975 - 1987 Smokeless Tobacco: Never Tobacco Cessation:Counseling Given: Not Answered Alcohol Use Standard Drinks/Week Comments Not Currently [...] Sign Reading Time Taken Comments Blood Pressure 124/60 08/05/2023 9:47 AM EST Pulse 81 08/05/2023 9:47 AM EST Temperature 36.7 C (98 F) 08/05/2023 9:47 AM EST Respiratory Rate - - Oxygen Saturation 93% 08/05/2023 9:47 AM EST Inhaled Oxygen Concentration - - Weight 138 kg (304 lb 3.2 oz) 08/05/2023 9:47 AM EST Height 182.9 cm (6') 08/05/2023 9:47 AM EST Body Mass Index 41.26 08/05/2023 9:47 AM EST documented in this encounter Patient Instructions * Patient Instructions* Jessica Rubio, ANNE MARIE - 08/05/2023 10:04 AM EST Hi Mr. Delong, As your primary care physician, I know that regular visits with my patients who have several chronic conditions can go a long way in helping you stay healthy. Many times, the clinic team and I are in touch with you and/or other care team members between office visits to adjust medications, discuss any changes in your health, and review our care plan to make sure it is still meeting your needs. I am dedicated to helping you take a more active role in your overall care. It is important that there are resources available to you, so I created a personalized plan of care with a Health Calendar for you, which is included on the next page of this letter. Below is a list that summarizes your electronic health record: Health Maintenance Due: Health Maintenance Due Topic Date Due HIV Screening Never done Alpha-1 Antitrypsin Never done COLONOSCOPY-EVERY 5 YRS AGES 18-100 01/01/2023 COVID-19 Vaccine (3 - 2022-24 season) 2023 Depression Screening 07/21/2023 Diabetic Foot Exam 09/02/2023 Current Medication List: (as of Visit date not found (in office), Visit date not found (telemedicine) ) Current Outpatient Medications Medication Sig Dispense Refill [...] at night. CPAP every night at bedtime. OneTouch Delica Lancets 33G Use 3 times [...] every 14 days . 6 Each 3 Metamucil 28.3 % Oral Powder (Psyllium) Take [...] 32 UNITS WITH DINNER PLUS CORRECTION PER [facility] OR DIRECTED UP TO 120 UNITS PER DAY 120 mL 3 hydrALAZINE HCl 25 MG Oral Tablet (Apresoline) TAKE ONE TABLET BY MOUTH EVERY MORNING, ONE TABLET AT NOON, AND ONE TABLET AT BEDTIME 300 Tablet 3 metOLazone 2.5 MG Oral Tablet (Zaroxolyn) ON HOLD as of 01/21. Take 1 tablet by mouth on twice aweek on non-consecutive days, 30 minutes prior to torsemide. 30 Tablet 0 Torsemide 20 MG Oral Tablet (Demadex) Take 2 tablets in the morning and a third tablet at least4 hours later; Take extra tablet as needed for weight gain. (Patient taking differently: Take 2 Tablets by mouth in the morning. Take 2 tablets in the morning and 1 tablet 4 hours later. Continue DTPas ordered. .) 315 Tablet 3 Lisinopril 10 MG Oral Tablet (Prinivil) Take 2 Tablets by mouth in the morning. 180 Tablet 1 Semaglutide (2 MG/DOSE) 8 MG/3ML Subcutaneous Solution Pen-injector (Ozempic) Inject 2 mg underthe skin once a week. 9 mL 3 Utvmh-7-szxg Ethyl Esters 1 GM Oral Capsule (Lovaza) Take 2 Capsules by mouth in the morning and 2 Capsules before bedtime. 360 Capsule 1 Carvedilol 25 MG Oral Tablet (Coreg) TAKE ONE TABLET BY MOUTH EVERY MORNING AND TAKE ONE TABLETBY MOUTH BEFORE BEDTIME 200 Tablet 3 Omeprazole 20 MG Oral Capsule Delayed Release (PriLOSEC) TAKE 1 CAPSULE BY MOUTH IN THE MORNINGAND 1 CAPSULE BEFORE BEDTIME 30 MINUTES BEFORE A MEAL 180 Capsule 1 Evolocumab 140 MG/ML Subcutaneous Solution Auto-injector ([employer]) Inject 140 mg under the skin every 14 days. 6 mL 3 Potassium Chloride Gaviota ER 10 MEQ Oral Tablet Extended Release Take 1 Tablet by mouth in the morning. 90 Tablet 3 DIURETIC TITRATION PLAN If no improvement on day 3, contact heart failure managing provider. 60Each 0 BD Pen Needle Short U/F 31G X 8 MM (Insulin Pen Needle) USE TO INJECT INSULINS 5 TIMES DAILY. DX: E11.9 500 Each 3 Current Facility-Administered Medications Medication Dose Route Frequency Provider Last Rate Last Admin Albuterol Sulfate (Proventil) (5 MG/ML) 0.5% *conc* inhalation solution 2.5 mg 2.5 mg NebulizerPRKhalif Atkinson MD Albuterol Sulfate (Proventil) (2.5 MG/3ML) 0.083% inhalation solution 2.5 mg 2.5 mg Nebulizer PRKhalif Atkinson MD 2.5 mg at 12/18/22 1159 Current List of Allergies: (as of Visit date not found (in office), Visit date not found (telemedicine) ) Review of patient's allergies indicates: Allergen Reactions Sglt2 Inhibitors Other (Please comment) Genital infection Sulfa Antibiotics Rash Other Allergy (See Comments) Rash 1+ cocamidopropyl betaine Most Recent Lab Results: Results for orders placed or performed in visit on 07/29/23 BASIC METABOLIC PANEL Result Value Ref Range BUN 40 (H) 6 - 20 mg/dL Creatinine 2.2 (H) 0.6 - 1.2 mg/dL Estimated Glomerular Filtration Rate 32 (L) >=60 mL/min Sodium 141 135 - 146 mmol/L Potassium 4.6 3.5 - 5.1 mmol/L Chloride 106 98 - 107 mmol/L CO2 24 22 - 32 mmol/L Anion Gap 11 7 - 15 mmol/L Glucose 208 (H) 70 - 120 mg/dL Calcium 9.3 8.4 - 10.2 mg/dL *Note: Due to a large number of results and/or encounters for the requested time period, some results have not been displayed. A complete set of results can be found in Results Review. Sincerely, Bárbara Rios, DO 08/05/2023 [facility] Calendar (as of Visit date not found (in office), Visit date not found (telemedicine) ) Care needs Care needs Last completed Due next HIV screening --- Never done Alpha-1 Antitrypsin --- Never done Colonoscopy - every 5 years 01/01/2018 01/01/2023 COVID-19 Vaccine ( season) 2020 03/06/2023 Diabetic Foot Exam 09/02/2022 09/02/2023 A1C blood sugar test 06/11/2023 12/11/2023 Kidney Function Test 07/29/2023 01/27/2024 Urine albumin/creatinine test 06/11/2023 06/11/2024 Diabetic Eye Exam 07/01/2023 07/01/2024 Yearly COPD oxygen test 07/29/2023 07/29/2024 Arreola's Esophagus Surveilance 06/16/2022 06/16/2025 Diphtheria, tetanus & pertussis vaccines (2 - Td or Tdap) 12/29/2016 12/29/2026 As you look over the recommended services, be sure to check with your insurance company to determine what's covered. [employer] is a great tool that helps you review your medical record online, including test results, doctor notes and your health summary. You can also schedule appointments with me and other members of your care team, request prescription refills and ask for advice related to your medical conditions at [email or web address]. documented in this encounter Progress Notes * Jessica Rubio RN - 08/05/2023 9:52 AM EST AD8 Dementia Screening Interview Person answering questions: patient Remember, "Yes, a change" indicates that there has been a change in the last several years caused by cognitive (thinking and memory) problems 1. Problems with judgement (eg: problems making decisions, bad financial decisions, problems with thinking). No (0) 2. Less interest in hobbies/activities. No (0) 3. Repeats the same things over and over (questions, stories, or statements). No (0) 4. Trouble learning how to use a tool, appliance, or gadget (eg: VCR, computer, microwave, remote control). No (0) 5. Forgets correct month or year. No (0) 6. Trouble handling complicated financial affairs (eg: balancing checkbook, income taxes, paying bills). No (0) 7. Trouble remembering appointments. No (0) 8. Daily problems with thinking and/or memory. No (0) TOTAL AD8: 0 - AD8 Dementia Screening Score The final score is a sum of the number items marked "Yes, A Change". 0 - 1: Normal cognition; 2 or greater: Cognitive impairments is likely to be present - further testing required Adult Annual Wellness Visit: Tony Delong is a 63 year old male who presents for an Adult Annual Wellness Visit. Depression Screening: Did the patient complete the screening questionnaire for Depression? Yes Is the patient's total score for Depression 15 or greater? No, no further intervention needed, unless requested by patient. Did the patient answer positively to the suicide question? No, no further intervention needed, unless requested by patient. In general, compared to other people your age, what would you say that your health is? Fair Ht Readings from Last 1 Encounters: 08/05/23 1.829 m (6') Wt Readings from Last 1 Encounters: 08/05/23 (!) 138 kg (304 lb 3.2 oz) Body Mass Index: BMI Greater than 30 Body mass index is 41.26 kg/m. BP Readings from Last 1 Encounters: 08/05/23 124/60 Medical/Surgical/Family History Reviewed: Yes Past Medical History: Diagnosis Date NEMESIO (acute kidney injury) (HCC) 04/30/2022 Diabetes (HCC) Heart failure, diastolic, due to HTN (HCC) 01/25/2021 High blood pressure High cholesterol CHAPINCITO on CPAP 08/18/2017 ?[id number] Sleep apnea, obstructive Past Surgical History: Procedure Laterality Date ANKLE ARTHROSCOPY/SURGERY Right 07/2016 trimalleloar frac--ext fixation f/b ORIF - U [facility] COLONOSCOPY, DIAGNOSTIC (RECTUM) 01/01/2018 adenomatous polyp, repeat 5 yrs/COLONOSCOPY FLEXIBLE PROXIMAL DIAGNOSTIC performed by Dav Yap MD at ENDOSCOPY [facility] EGD, FLEXIBLE, DIAGNOSTIC 11/13/2021 esophageal polyp, gastritis / ESOPHAGOGASTRODUODENOSCOPY (EGD), FLEXIBLE, TRANSORAL, DIAGNOSTIC performed by Emelia Conley DO at ENDOSCOPY [facility] EGD, FLEXIBLE, DIAGNOSTIC N/A 03/20/2022 ESOPHAGOGASTRODUODENOSCOPY (EGD), FLEXIBLE, TRANSORAL, DIAGNOSTIC performed by Darian Goodman [facility]GD, FLEXIBLE, DIAGNOSTIC N/A 06/16/2022 ESOPHAGOGASTRODUODENOSCOPY (EGD), FLEXIBLE, TRANSORAL, DIAGNOSTIC performed by Darian Goodman MD [facility] EGD, FLEXIBLE, ENDO MUCOSAL RESECTION 01/24/2022 GEJ polyp - LGD, HGD / [facility] EGD, W/ENDOSCOPIC US 11/13/2021 Barretts w/ HGD, fatty liver / ESOPHAGOGASTRODUODENOSCOPY (EGD), FLEXIBLE, TRANSORAL, ENDOSCOPIC ULTRASOUND performed by Emelia Conley DO at ENDOSCOPY [facility] EGD, W/ENDOSCOPIC US 01/24/2022 bile duct stone, enlarged LN - normal bx, eso mass - [facility] SURGERY NEC 1989 LUMBAR / SACRAL EPIDURAL, SINGLE LEVEL 02/04/2018 INJECTION TRANSFORAMINAL EPIDURAL LUMBAR OR SACRAL performed by Uday Masterson DO at OR [facility] REMOVE CATARACT, INSERT LENS PROSTH Right 01/22/2017 right EXTRACAPSULAR CATARACT REMOVAL WITH INTRAOCULAR LENS performed by Cheko Mcnamara MD at OR [facility] REMOVE CATARACT, INSERT LENS PROSTH Left 02/03/2017 left EXTRACAPSULAR CATARACT REMOVAL WITH INTRAOCULAR LENS performed by Cheko Mcnamara MD at OR [facility] SACROILIAC JOINT INJECT W/GUIDANCE 11/20/2021 INJECTION SACROILIAC JOINT performed by Uday Masterson DO at OR [facility] THIGH OR KNEE SURGERY NEC Left 07/2016 [facility]--quad repair US ABDOMEN LIMITED 08/27/2021 Possible cirrhotic liver and also possible fatty metamorphosis of the liver, uncomplicated cholelithiasis Family History Problem Relation Age of Onset Neurological Disorder Mother kidney issues and stroke Eye Problems Mother glaucoma No Known Problems Father No Known Problems Brother Celiac disease Son Celiac disease Son dandy walker syndrome Has patient ever had cancer? No Social History Tobacco Use Smoking status: Former Packs/day: 2.00 Years: 13.00 Additional pack years: 0.00 Total pack years: 26.00 Types: Cigarettes Start date: 1974 Quit date: 1987 Years since quittin.1 Smokeless tobacco: Never Substance Use Topics Alcohol use: Not Currently Comment: quit 1987 Vaping/E-Cigarette Use Vaping/E-Cigarette Use Never User Vaping/E-Cigarette Substances Vaping/E-Cigarette Devices Tobacco/Alcohol screening completed today? Yes Hospital Care: Admissions (within the last year): Not Applicable ER within 30 days: No Does the patient have an Advance Directives/Living Will? Yes Last Physical Exam: Last physical exam: Does patient see primary provider regularly? Yes Does patient see other providers? Yes, Specialist Patient Care Team updated? Yes Review of patient's allergies indicates: Allergen Reactions Sglt2 Inhibitors Other (Please comment) Genital infection Sulfa Antibiotics Rash Other Allergy (See Comments) Rash 1+ cocamidopropyl betaine Immunization History Administered Date(s) Administered COVID-19 mRNA, LNP-s, No Preserve, 2-Dose Series (Moderna) 11/12/2020, 12/10/2020 Hepatitis B, 20+ yrs 07/03/2017, 08/03/2017, 01/04/2018 Pneumococcal Conjugate Vaccine, 20-valent ([id number]) 06/09/2022 Pneumococcal Polysaccharide PPV23 (Pneumovax) 03/06/2020 Seasonal Influenza, PF, 6 M & above, IM , (FluLaval or Fluzone) 08/18/2017, 07/11/2019, 04/18/2020, 03/21/2021, 04/27/2022, 04/01/2023 Seasonal Influenza, Split, IIV3, With Preserve, Inj 04/05/2016 TDAP (age 10 and older)(Boostrix) 12/29/2016 Zoster Vaccine Recombinant (Shingrix) 01/27/2020, 05/29/2020 Current Outpatient Medications Medication Sig Dispense Refill [...] at night. CPAP every night at bedtime. OneTouch Delica Lancets 33G Use 3 times [...] every 14 days . 6 Each 3 Metamucil 28.3 % Oral Powder (Psyllium) Take [...] 32 UNITS WITH DINNER PLUS CORRECTION PER [facility] OR DIRECTED UP TO120 UNITS PER DAY 120 mL 3 hydrALAZINE HCl 25 MG Oral Tablet (Apresoline) TAKE ONE TABLET BY MOUTH EVERY MORNING, ONE TABLET AT NOON, AND ONE TABLET AT BEDTIME 300 Tablet 3 metOLazone 2.5 MG Oral Tablet (Zaroxolyn) ON HOLD as of 01/21. Take 1 tablet by mouth on twice a week on non-consecutive days, 30 minutes prior to torsemide. 30 Tablet 0 Torsemide 20 MG Oral Tablet (Demadex) Take 2 tablets in the morning and a third tablet at least 4 hours later; Take extra tablet as needed for weight gain. (Patient taking differently: Take 2 Tabletsby mouth in the morning. Take 2 tablets in the morning and 1 tablet 4 hours later. Continue DTP as ordered. .) 315 Tablet 3 Lisinopril 10 MG Oral Tablet (Prinivil) Take 2 Tablets by mouth in the morning. 180 Tablet 1 Semaglutide (2 MG/DOSE) 8 MG/3ML Subcutaneous Solution Pen-injector (Ozempic) Inject 2 mg under theskin once a week. 9 mL 3 Deqml-7-uujl Ethyl Esters 1 GM Oral Capsule (Lovaza) [...] mouth in the morning. 90 Tablet 3 DIURETIC TITRATION PLAN If no improvement on [...] Pierre MD 2.5 mg at 12/18/22 1159 Patient Active Problem List Diagnosis Code Type 2 diabetes mellitus with hemoglobin A1c goal of less than 8.0% (HCC) E11.9 DDD (degenerative disc disease), cervical M50.30 H/O colonoscopy with polypectomy Z98.890, Z86.010 Mixed dyslipidemia E78.2 History of tobacco use Z87.891 CHAPINCITO on CPAP G47.33 BMI 40.0-44.9, adult (HCC) Z68.41 Uncontrolled type 2 diabetes mellitus with hyperglycemia [...] and stage 4 chronic kidney disease (HCC) I13.0, I50.32, N18.4 Sacroiliitis ([facility]) M46.1 Chronic heart failure with preserved ejection fraction (HCC) I50.32 Chronic obstructive pulmonary disease (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) I73.89 Coronary artery calcification seen on CT scan I25.10 Medication Compliance: Patient is able to obtain all of his medications? Yes Patient takes medications as prescribed? Yes Patient manages own medications: Yes Patient uses a pill box? Yes, refill(s) completed by self Dental Exam: Yes: Every 6 Months Eye Screening: Yes: Every year Are you having trouble with hearing? No Do you use an assistive device to help your hearing? No Exercise Screening: does not exercise regularly Nutrition Assessment: 2 meals, late breakfast and dinner around 4pm . Patient is on fluid restrictions. Pain Screening: Are you having any pain? Yes. Pain Scale: 2 out of 10; , patient does get worse pain with standing Sleep Screening Tool 'STOP': Do you snore? Yes Do you feel fatigued during the day? No Do you wake up feeling like you haven't slept? No Have you been told you stop breathing at night? No Do you gasp for air or choke while sleeping? No Have you been told you have Sleep Apnea? Yes Do you have high blood pressure or are on medication(s) to control high blood pressure? Yes SCORE: If you check YES to two or more questions, make a referral for Obstructive Sleep Apnea Patient does use cpap nightly Patient and Caregiver Support System: Patient lives with a spouse Means of Transportation: Drives. Concerns identified are: night Patient lives in One Story - with basement stairs: chair lift Community Resources: Not Applicable Functional Status and ADL Skills: Has patient ever had an amputation? No Functional Assessment: 90- Able to carry on normal activity, minor symptoms of disease Ambulation: Patient ambulates with assistive device. Cane Dressing: Gets clothes and dresses without any assistance: Independent Able to move freely in chair or bed including turning over: Independent Repositioning (bed or chair): Not applicable Transfers: Independent Toileting: Goes to bathroom, uses toilet, arranges clothes and returns without any assistance: Independent Toileting: continent of bladder and continent of bowel Feeding: Self Bathing: Self; Shower Chair and walk in shower Requires none assistance with ADLs. Instrumental ADL's: Shopping: Independent Housekeeping: Minimal Assistance Handling Finances: Independent DME Vendor Name: Not Applicable Fall Risk Assessment: Can the patient demonstrate that he can stand from a sitting position? Yes Has the patient had a fall within the last 6 months? Yes Does the patient have a problem with his gait or balance? Yes Does the patient take 4 or more prescription medicines? Yes Does the patient use sedatives or narcotics? No Fall Risk Factors Present: Uses more than 4 medications Uses assistive devices Balance or gait disturbances Visually impaired Pky-Pz-zoa-Go Test: Time began at 930. Patient stood from sitting position and walked approximately 10 feet, returned and sat down. Total time for ksm-ak-jct-go test was 11 seconds. Xis-Hb-qnd-Go Test completed? Yes Gender Specific Preventative Plan: Health Maintenance Topic Date Due HIV Screening Never done Alpha-1 Antitrypsin Never done COLONOSCOPY-EVERY 5 YRS AGES 18-100 01/01/2023 COVID-19 Vaccine ( season) 2023 Depression Screening 07/21/2023 Diabetic Foot Exam 09/02/2023 HbA1c 12/11/2023 GFR 01/27/2024 Albumin/Creatinine Ratio 06/11/2024 Diabetic Eye Exam 07/01/2024 O2 ASSESSMENT COMPLETED IN PAST YEAR FOR COPD 07/29/2024 Arreola's Esophagus Surveilance 06/16/2025 DTaP,Tdap,and Td Vaccines (2 - Td or Tdap) 12/29/2026 Hepatitis B Completed Influenza Vaccine (FLU shot) Completed Zoster Vaccines Completed Pneumococcal Vaccine: Pediatrics (0 to 5 Years) and At-Risk Patients (6 to 64 Years) Completed MENINGOCOCCAL (MENACTRA/MENVEO) Aged Out GARDASIL-HPV IMMUNIZATION SERIES Aged Out Follow Up/ Referrals/Handouts: Depression screening - completed Functional assessment - dong well, patient was injured in a fall in 2017 and legs still give him problems Falls Risk screening - discussed, encouraged to continue using the cane Exercise screening -encourage, although it is difficult for him, patient to contact the [facility] in [facility] to see about pool exercises Nutrition assessment -. Education Provided and Handouts Provided Pain screening - chronic pain from injury Incontinence screening - no complaints today Patient has been verbally educated on the need or importance of Cholesterol, Colon Cancer Screening, Diabetic Eye Exam, Diabetic Foot Exam, GFR, Glucose, Hemoglobin A1c, and Immunizations: covid,flu,shingrix Pt has completed the covid vaccines: No, patient had 2 vaccines and declined most recent Flu and shingrix completed Routine general medical examination at a health care facility (Primary) Special screening for malignant neoplasms, colon - COLONOSCOPY, GI REFERRAL OP Advanced care planning/counseling discussion -Advance Care Planning is important for all adults. Discussed the process of thinking and talking about future healthcare decisions. Patient does have a Living will on file Arreola's esophagus with high grade dysplasia -discussed and is due for EGD 2024 Chronic heart failure with preserved ejection fraction (HCC) - Med reconciliation completed and compliance discussed. - pt to continue present medications. BMI 40.0-44.9, adult (HCC) Body mass index is 41.26 kg/m. - Discussed Healthy lifestyle, importance of exercise - Diet education - Reviewed labs Chronic kidney disease, stage 3b (HCC) - Med reconciliation completed and compliance discussed. - pt to continue present medications. Component Latest Ref Rng 07/29/2023 BUN 6 - 20 mg/dL 40 (H) Creatinine 0.6 - 1.2 mg/dL 2.2 (H) Estimated Glomerular Filtration Rate >=60 mL/min 32 (L) Legend: (H) High (L) Low Chronic obstructive pulmonary disease (HCC) - Med reconciliation completed and compliance discussed. - pt to continue present medications. H/O colonoscopy with polypectomy -scheduled at checkout 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) - Med reconciliation completed and compliance discussed. - pt to continue present medications. BP Readings from Last 3 Encounters: 08/05/23 124/60 07/29/23 132/72 07/22/23 116/62 Mixed dyslipidemia - Med reconciliation completed and compliance discussed. - pt to continue present medications. 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 - pt to continue present medications. Patient does see an eye doctor yearly -patient does follow up with Dr. Castro, rn house supervisor and will request last foot exam. Hemoglobin AIC Results: Lab Results Component Value Date/Time HEMOGLOBIN A1C - [facility] 8.2 (H) 06/11/2023 11:11 AM HEMOGLOBIN A1C - [facility] 7.2 (H) 04/01/2023 03:31 PM HEMOGLOBIN A1C - [facility] 9.4 (H) 12/17/2022 02:38 PM HEMOGLOBIN A1C - [facility] 9.7 12/01/2018 12:00 AM HEMOGLOBIN A1C POCT - [facility] 7.5 (H) 03/21/2021 12:22 PM HEMOGLOBIN A1C POCT - [facility] 8.1 (H) 12/12/2020 09:33 AM HEMOGLOBIN A1C POCT - [facility] 8.8 (H) 09/04/2020 02:16 PM Follow Up: Return in 1 year (on 08/05/2024) for 12 month Subsequent Adult Wellness Visit. | For: 12 month Subsequent Adult Wellness Visit | Check-out note: 12 month Subsequent Adult Wellness Visit Would patient like to schedule next AWV visit? Yes Jessica Rubio RN documented in this encounter Miscellaneous Notes * ACP (Advance Care Planning) - Jessica Rubio RN - 08/05/2023 10:27 AM EST Patient-centered Communication 08/05/2023 The patient/surrogate voluntarily agreed to participate in advance care planning discussion. They were advised that this is a separate service which may incur out of pocket cost in the form of copayment and/or deductibles. Location: Clinic Individual(s) present for conversation: Patient Decisions Synopsis SmartLink Most Recent Value Past ~10 years 10/23/2022 16:34 Decisions CPR decision: Patient chooses CPR 10/23/2022 Patient chooses CPR Intubation/Mechanical Ventilation decision: Patient chooses Intubation/mechanical ventilation 10/23/2022 Patient chooses Intubation/mechanical ventilation Non-invasive ventilation or BIPAP decision: Patient chooses non-invasive ventilation. Select interventions below 10/23/2022 Patient chooses non-invasive ventilation. Select interventions below Non-Invasive Ventilation Interventions: CPAP;BIPAP;NIV 07/02/2022 Antibiotic therapy decision: Patient chooses Antibiotic therapy 10/23/2022 Patient chooses Antibiotic therapy Artificial nutrition decision: Patient chooses Artificial nutrition 10/23/2022 Patient chooses Artificial nutrition IV hydration decision: Patient chooses IV hydration 10/23/2022 Patient chooses IV hydration Blood transfusion decision: Patient chooses Blood transfusion 10/23/2022 Patient chooses Blood transfusion Lab draw decision: Patient chooses Lab draws 10/23/2022 Patient chooses Lab draws Transport decision: Patient chooses Transport 07/02/2022 Dialysis decision: Patient chooses Dialysis 10/23/2022 Patient chooses Dialysis Additional Comments Synopsis SmartLink Most Recent Value Past ~10 years 08/05/2023 10:34 Additional Comments Additional Comments: discuss ACP and pt does have a copy scanned into chart. 08/05/2023 discuss ACP and pt does have a copy scanned into chart. Discerning What Matters Most to the Patient: Synopsis SmartLink Most Recent Value Past ~10 years 01/27/2023 17:35 Discerning What Matters Most to the Patient In their own words, patient's UNDERSTANDING of their illness is: After having DM for 25-30 years mykidneys are slowly quit working 01/27/2023 After having DM for 25-30 years my kidneys are slowly quit working Their current SYMPTOMS include: Shortnes of breath;Reduced overall well being;Tiredness 07/02/2022 They say their illness has CHANGED THEIR LIFE by: Feel like a burden to family/loved ones 07/02/2022 The patient thinks COMPLICATIONS in the future may be: More hospitalizations 07/02/2022 Was PROGNOSIS discussed? Yes 10/23/2022 Progression of illness described as: A gradual decline 10/23/2022 The patient's HOPES are: Avoid further hospitalization;Maintain current functional abilities 05/12/2022 The patient defines LIVING WELL as: a day without stress and a lot of drama 07/02/2022 The patient's FEARS/WORRIES about illness are: Going back to the hospital;Being a burden to family 07/02/2022 The patient considers these as 'UNACCEPTABLE OUTCOMES': "Being a vegetable" (define below);Prolonged hospital stay (define below);Prolonged mechanical ventilation (define below);Unable to talk/interact with loved ones;Prolonged fpc stay (define below);Unable to feed themselves 07/02/2022 The patient's cultural or spiritual BELIEFS that may affect health care decisions: none 07/02/2022 Source: Content from [employer] Aligning Care With What Matters Most: Synopsis SmartLink Most Recent Value Past ~10 years 10/23/2022 16:34 Aligning Care With What Matters Most In their own words, the patient's understanding of their prognosis: I know my heart and my kidneys aren't good and I have to change things if i don't want to live my life in the hospital 05/12/2022 Interventions/Choices: CPR;Intubation/mechanical ventilation;Non-invasive ventilation or BIPAP;Antibiotic therapy;IV hydration;Blood transfusion;Dialysis;Lab draws;Artificial nutrition 10/23/2022 CPR;Intubation/mechanical ventilation;Non-invasive ventilation or BIPAP;Antibiotic therapy;IV hydration;Blood transfusion;Dialysis;Lab draws;Artificial nutrition Rationale for Decisions Source: Content from [employer] 5 minutes spent in direct [id number]-[id number] discussion today, Jessica Rubio RN * Pt Handout (on AVS) - Jessica Rubio RN - 08/05/2023 10:16 AM EST Images from the original note were not included. 62924 Understanding Carbohydrates A car needs the right type of fuel to run. And you need the right kind of food to function. To keepyour energy level up, your body needs food that has carbohydrates (carbs). But carbs raise blood sugar levels higher and faster than other kinds of food. Your dietitian will work with you to figure out the amount of carbs you need. Carbs come in 3 types: starches, sugars, and fiber. Starches Starches are found in grains, some vegetables, and beans. Grain products include bread, pasta, cereal, and tortillas. Starchy vegetables include potatoes, peas, corn, shankar beans, yams, and squash. Kidney beans, shoemaker beans, black beans, garbanzo beans, and lentils also have starches. Sugars Sugars are found naturally in many foods. Or they can be added. Foods that contain natural sugar include fruits and fruit juices, dairy products, honey, and molasses. Added sugars are found in most desserts, processed foods, candy, regular soda, and fruit drinks. These are very helpful to treat lowblood sugar (hypoglycemia). They give you sugar quickly. Try to keep at least 15 to 20 grams of these simple sugars with you at all times. Eat or drink these if you start to have symptoms of low blood sugar. Fiber Fiber comes from plant foods. Your body can't digest most fiber. Instead of raising blood sugar levels like other carbs, fiber stops blood sugar from rising too fast. Fiber is found in fruits, vegetables, whole grains, beans, peas, and many nuts. Carb counting Keep track of the amount of carbs you eat. This can help you keep the right balance of carbs, physical activity, and medicine. The amount of carbs you need will be different from what other people need. How much you need depends on many things. These include your health, the medicines you take, andhow active you are. Your healthcare team will help you figure out the right amount of carbs for you. You may start with 45 to 60 grams of carbs per meal, depending on your case. Carb counting is a system that helps you keep track of the carbohydrates you eat at each meal. Carbs come from many foods. These include grains, starchy vegetables, fruit, milk, beans, and snackfoods. You can either count carbohydrate grams or carbohydrate servings. When you count carbohydrate servings, 1 carbohydrate serving = 15 grams of carbohydrates. Here are some examples of foods that have about 15 grams of carbs (1 serving of carbohydrates): 1/2 cup of canned or frozen fruit A small piece of fresh fruit (4 ounces) 1 slice of bread 1/2 cup of oatmeal 1/3 cup of rice 4 to 6 crackers 1/2 Turkmen muffin 1/2 cup of black beans 1/4 of a large baked potato (3 ounces) 2/3 cup of plain fat-free yogurt 1 cup of soup 1/2 cup of casserole 6 chicken nuggets 7-tzlu-obaxvb brownie or cake without frosting 2 small cookies 1/2 cup of ice cream or sherbet Carb counting is easier when food labels are available. Look at the label to see how many grams of total carbs per serving the food contains. Then you can figure out how much you should eat. If your food doesn't have a nutrition label, you should be able to get an idea how many carbs there are per serving by using a book or website. Two very important lines to look at on the label are the serving size and the total carbohydrate amount per serving. Here are some tips for using food labels to count your carbs: Check the serving size. The information on the label is based on that serving size. If you eat more than the listed serving size, you may have to double or triple the other information on the label. Check the total grams of carbs. Total carbohydrate from the label includes sugar, starch, and fiber. Be sure to use the total carbohydrate number (minus the fiber) and not sugar alone. Know how many grams of carbs you can have. Be familiar with the matching portion sizes. Compare labels. Compare the labels of different products. Look at serving sizes and total carbs to find the products that work best for you. Don't forget protein and fat. With the focus on carb counting, it might be easy to forget protein and fat in your meals. Don't forget to include sources of protein and healthy fat to balance your meals. Also watch how much salt (sodium) you eat. This is especially true if you have high blood pressure. If you have diabetes, limit the amount of sodium to less than 2,300 mg a day. It?s also important to be consistent with the amount of carbs and time you eat when taking a fixed dose of diabetes medicine. Work with your healthcare provider or dietitian if you need more help. They can help you keep track of your carbs. They can also help you figure out how many grams of carbs you should have. Last Reviewed Date: 06/05/202119992459-4271 [employer]. All rights reserved. This information is not intended as a substitute for professional medical care. Always follow your healthcare professional's instructions. * Pt Handout (on AVS) - Jessica Rubio RN - 08/05/2023 10:16 AM EST [id number] Nutrition and MyPl[employer]: Oils Oils are fats that are liquid at room temperature. This includes oils you cook with, plus foods that are mostly oil, such as mayonnaise and salad dressing. Oils are not a food group. But they do provide essential nutrients for your body, such as vitamin E and essential fatty acids, which keep cellsand tissues healthy and help the body heal. Most oils are plant-based. They are also high in the healthier unsaturated fats, and low in the less healthy saturated fats. But some plant oils are high in saturated fats. These include coconut oil, palm oil, and palm kernel oil. These should be consumed less often than other oils. Oils and other fats are also high in calories. Eating too much fat can lead to weight gain and increased risk of heart disease. Fat facts Some fats are liquid. Others are solid. Food labels tell you which fats a food contains. Some are healthier than others: Unsaturated fats. These are often liquid at room temperature. They are found in some oils (such as olive, peanut, and canola), avocado, nuts, seeds, and fish. These are the healthiest fats. They can be good for your heart in moderate amounts. They can even sometimes raise your HDL (good) cholesterol levels. Saturated fats. These are often solid at room temperature. They are found in animal foods, such as butter, lard, beef, pork, and high-fat dairy. These are less healthy and should be limited. They can raise your LDL (bad) cholesterol levels. Trans fats. These are found in some fast food, such as danish fries, snack foods such as like chips and cookies, and some margarines and shortenings. These are the worst fats for you. Stay away from them when you can. They can raise your LDL cholesterol levels and lower your HDL cholesterol levels. Be smart about fats Out with the bad. Check food labels for trans fats. And stay away from foods that have them. Look for the words partially hydrogenated on the ingredients list. Trans fats are mostly found in highly processed foods. So choose less processed, whole foods more often. In with the good. Choose unsaturated fat over saturated when you can. Here's one idea: Use oliveor canola oil instead of lard or butter. What else could you do? Last Reviewed Date: 03/06/202219996139-1122 [employer]. All rights reserved. This information is not intended as a substitute for professional medical care. Always follow your healthcare professional's instructions. * Pt Handout (on AVS) - Jessica Rubio RN - 08/05/2023 10:15 AM EST Images from the original note were not included. 25167 Diabetes: Learning About Serving and Portion Sizes Servings and portions. What?s the difference? These terms can be very confusing. But learning to measure serving sizes can help you figure out how many carbohydrates (carbs) and other foods you eat each day. They're also powerful tools for managing your weight. A good rule of thumb: Devote half your plate to vegetables and green salad. Split the other half between protein and starchy carbohydrates. Fruit makes a good dessert. Servings and portions Many different words are used to describe amounts of food. If your healthcare provider uses a term you?re not sure of, don?t be afraid to ask. It helps to know the difference between servings and portions: A serving size. This is a fixed size. Food producers use this term to describe their products. For example, the label on a cereal box could say that 1 cup of dry cereal = 1 serving. A portion (also called a helping). This is how much you eat or how much you put on your plate sebastien meal. For instance, you might eat 2 cups of cereal at breakfast. Watching serving sizes The portion you choose to eat (such as 2 cups of cereal) may be more than 1 serving as listed on the food label (such as 1 cup of cereal). That?s why it helps to measure or weigh the food you eat. Because the food label values are based on servings, you?ll need to know how many servings you eat at 1 sitting. When you?re planning for a snack or a meal, keep servings in mind. If you don?t have measuring cupsor a scale handy, there are ways to figure out serving sizes. For instance, you can compare the food to the size of your hand (see pictures below). Here are some general tips: About 3 ounces of meat fits in the palm of your hand 1 cup of food is about the size of your fist An open hand holds about 1 to 2 ounces of nuts Ounces: 2 to 3 ounces is about the size of your palm. 1 cup: 1 cup (or a medium-sized piece) is about the size of your fist. 1/2 cup: 1/2 cup is about the size of your cupped hand. Managing portion sizes If your weight is a concern, reducing your portions can help. A portion is the amount of each type of food on your plate. You can eat more than 1 serving of a food at once. But to keep from eating too much at 1 meal, learn how to manage your portions. Portion control will also help with blood sugarmanagement. Last Reviewed Date: 07/06/202119994090-2222 [employer]. All rights reserved. This information is not intended as a substitute for professional medical care. Always follow your healthcare professional's instructions. * Pt Handout (on AVS) - Jessica Rubio RN - 08/05/2023 10:15 AM EST Images from the original note were not included. 17013 5 Steps for Eating Healthier Changing the way you eat can improve your health. It can lower your cholesterol and blood pressure,and help you stay at a healthy weight. Your diet doesn?t have to be bland and boring to be healthy.Just watch your calories and follow these steps: Step 1. Eat fewer unhealthy fats Choose more fish and lean meats instead of fatty cuts of meat. Skip butter and lard, and use less margarine. Replace these with healthier fats, such as olive, canola, or avocado oils. Pass on foods that have palm, coconut, or partially hydrogenated oils. Eat fewer high-fat dairy foods like cheese, ice cream, and whole milk. Get a heart-healthy cookbook and try some new recipes. Step 2. Go light on salt Keep the saltshaker off the table. Limit high-salt ingredients, such as soy sauce, bouillon, and garlic salt. Instead of adding salt when cooking, season your food with herbs, spices, and other flavorings. Try lemon, garlic, onion, vinegar, or salt-free herb seasonings. Limit convenience foods, such as boxed or canned foods and restaurant food. Read food labels and choose lower-sodium options. Buy fresh, frozen, or canned vegetables that don't have added salt. Step 3. Limit sugar Pause before you add sugars to pancakes, cereal, coffee, or tea. This includes white and brown table sugar, syrup, honey, and molasses. Cut your usual amount by half. Swap out sugar-filled soda and other drinks. Buy sugar-free or low-calorie beverages. Remember, water is always the best choice. Try adding lemon juice to water for extra flavor. Read labels and choose foods with less added sugar. Keep in mind that dairy foods and foods withfruit will have some natural sugar. Cut the sugar in recipes by 1/3 to 1/2. Boost the flavor with extracts like almond, vanilla, or orange. Or add spices such as cinnamon or nutmeg. Step 4. Eat more fiber Eat fresh fruits and vegetables every day. Boost your diet with whole grains. Go for oats, whole-grain rice, and bran. Add beans and lentils to your meals. Drink more water to match your fiber increase to help prevent constipation. Step 5. Pay attention to serving sizes Remember that a serving size is a standard measurement. It will let you track the amount of fat,calories, and other nutrients in the food you eat. Read the Nutrition Facts label on packaged foods to learn their serving sizes. Use serving sizes to assess how much food you put on your plate. Pay attention to your portions.How many servings are you eating? Keep in mind that your needs may change if you?re more active or less active, or if you have other factors that change your calorie needs. Use your hand to help you measure serving sizes. For example: o 1 teaspoon: This is about the size of the first joint of your thumb. o 1 tablespoon: This is about the size of the first 2 joints of your thumb. o 1 ounce: This is about what you can fit in your cupped hand. o 2 to 3 ounces: This is about the size of the palm of your hand. o cup: This is also about what you can fit in your cupped hand. o 1 cup: This is about the size of your fist. Last Reviewed Date: 06/05/202219998472-1508 [employer]. All rights reserved. This information is not intended as a substitute for professional medical care. Always follow your healthcare professional's instructions. documented in this encounter Plan of Treatment Upcoming Encounters Date Type Department Care Team (Latest Contact Info) Description 08/06/2023 10:00 AM EST Office Visit Cardiology, [facility] [address] [place] [id number] Evita Brennan CRNP [address] [place] [address] 08/11/2023 11:30 AM EST Scheduled Telephone [facility], [facility] [address] [facility] [place] [address] Mery Calderon RDN [address] [facility] [place] [address] 08/21/2023 8:30 AM EST [facility] Visit [facility], [facility] [address] [place] [address] [place], ANNE MARIE [address] [place] [address] 09/16/2023 11:00 AM EDT Telemedicine Pharmacy, [facility] [address] [facility] [place] [address] Pharmacist1, [facility] [address] [facility] [place] [address] 10/06/2023 2:10 PM EDT Office Visit Family Medicine [address] [phone] Bárbara Rios[address] [place] [address] 10/27/2023 8:30 AM EDT Office Visit Sleep Disorders Ctr [facility] [address] [place] [phone] Lindsey Sheikh CRNP [address] [place] [address] 12/31/2023 11:45 AM EDT Hospital Encounter [facility]O [facility], Endoscopy Room [facility] [address] [place] [phone] José Miguel Sifuentes MD [address] [place] [address] 12/31/2023 11:45 AM EDT - 12/31/2023 12:15 PM EDT Surgery ENDO [facility], Endoscopy Room [facility] [address] [place] [phone] José Miguel Sifuentes MD [address] [place] [address] COLONOSCOPY FLEXIBLE PROXIMAL DIAGNOSTIC 02/29/2024 3:20 PM EDT Office Visit Nephrology [address] [place] [address] Shivani Magallon MD [address] [place] [address] 08/08/2024 9:30 AM EST Nurse Only Ancillary [address] [place] [address] [place], Nurse [address] [place] [address] Scheduled Procedures Name Priority Associated Diagnoses Date/Ti me COLONOSCOPY FLEXIBLE PROXIMA L DIAGNOSTIC Recall Special screening for malignant neoplasms, colon 12/31/2023 11:45 AM EDT ESOPHAGOGASTRODUODENOSCOPY ( EGD), FLEXIBLE, TRANSORAL, DIAGNOSTIC Recall Arreola's esophagus with dysplasia Scheduled Referrals Name Type Priority Associated Diagnoses Orde r Schedule COLONOSCOPY, GI REFERRAL OP Referral Within 30 days (routine) Special screening for malignant neoplasms, colon Ordered: 08/05/2023 Health Maintenance Due Date Last Done Comments [...] this encounter Medical Devices Implanted Type Area Computer Drafter Device Identifier Shelf Expiration Date Model / Serial / Lot Lens Intraoc 21.0 - [id number] - [id number] Implanted:Qty: 1 on 01/22/2017 by Cheko Mcnamara MD at OR [facility] Right: Eye [employer] 08/05/2021 [id number] / [id number] / [id number] Lens Intraoc 21.5 - [id number] - [id number] Implanted:Qty: 1 on 02/03/2017 by Cheko Mcnamara MD at [facility] Left: Eye [employer] 09/02/2021 [id number] / [id number] / [id number] documented as of this encounter Visit Diagnoses Diagnosis Routine general medical examination at a health care facility- Primary Special screening for malignant neoplasms, colon Advanced care planning/counseling discussion Other specified counseling Arreola's esophagus with high grade dysplasia Arreola's esophagus Chronic heart failure with preserved ejection fraction (HCC) BMI 40.0-44.9, adult (HCC) Body Mass Index 40.0-44.9, adult Chronic kidney disease, stage 3b (HCC) Chronic obstructive pulmonary disease (HCC) Chronic airway obstruction, not elsewhere classified H/O colonoscopy with polypectomy Other postprocedural status 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 Care Teams Stonework Supervisor Relationship Specialty Start Date End Date Bárbara Rios DO [address] [place] [address] [place] [address] PCP - General Internal Medicine 08/16/21 documented as of this encounter
--- OUTSIDE RECORDS SUMMARY | 2023-10-20 22:58 | External Medical Summary ---
Author Name Unknown Address Unknown Organization K01:[facility] [place] - [address] [place] [address] Laboratory Report Ordering Provider Test Date Status LIAM ORTEGA 07/29/2023 14:09:55 Final Observation Date Value Abnormality Reference (Units ) Status BUN 07/29/2023 14:09:55 40 Above high normal 6-20 (mg/dL) Final Creatinine 07/29/2023 14:09:55 2.2 Above high normal 0.6-1.2 (mg/dL) Final Glomerular filtration rate/1.73 sq M.predicted [Volume Rate/Area] in Serum, Plasma or Blood by Creatinine-based formula (CKD-EPI) 07/29/2023 14:09:55 32 Below low normal >=60 (mL/min) Final eGFR is calculated based on the CKD-EPI 2020 equation SODIUM 07/29/2023 14:09:55 141 135-146 (m mol/L) Final Potassium 07/29/2023 14:09:55 4.6 3.5-5.1 (m mol/L) Final Cl 07/29/2023 14:09:55 106 98-107 (mm ol/L) Final CO2 07/29/2023 14:09:55 24 22-32 (mmo l/L) Final Anion gap 07/29/2023 14:09:55 11 7-15 (mmol /L) Final Glucose 07/29/2023 14:09:55 208 Above high normal 70 -120 (mg/dL) Final Calcium 07/29/2023 14:09:55 9.3 8.4-10.2 ( mg/dL) Final Performing Location [facility] [place] - [address] [place] [address]
--- OUTSIDE RECORDS SUMMARY | 2023-10-20 22:59 | External Medical Summary | Summary of Care ---
Author Name Unknown Organization [facility] Address [address] [place] [facility] [place] [place] [address] Phone [phone] Care Team Providers Care Boilermaker Apprentice Name Role Phone Bárbara Rios Primary Care Provider [phone] Reason for Visit * Reason Comments Medical Nutrition Therapy Encounter Details Date Type Department Care Team (Latest Contact Info) Description 07/28/2023 10:30 AM EST Nutrition Services [facility], [facility] [address] [facility] [place] [address] Mery Calderon, RDN [address] [facility] [place] [address] 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)* Allergies Active Allergy Reactions Criticality Noted Date Comments Other Allergy (See Comments) Rash Low 10/13/2022 1+ cocamidopropyl betaine Sglt2 Inhibitors Other (Please comment) High 09/04/2020 Genital infection Sulfa Antibiotics Rash 10/15/2016 documented as of this encounter (statuses as of 07/27/2023) Medications Medication Sig Dispensed Refills Start Date [...] a week. 9 mL 3 04/09/2023 Active Jzeja-5-tgbq Ethyl Esters 1 GM Oral Capsule (Lovaza) [...] Evolocumab 140 MG/ML Subcutaneous Solution Auto-injector (Repatha LiquidTextClick)Indicatio ns:Dyslipidemia, goal LDL below 100,Mixed dyslipidemia Inject [...] as of this encounter (statuses as of 07/27/2023) Active Problems Problem Noted Date Diagnosed Date [...] in the Comments) Remote Patient Monitoring Vendor: [employer] Device(s): Connected Scale Self - Management Plan [...] as of this encounter (statuses as of 07/27/2023) Resolved Problems Problem Noted Date Diagnosed Date [...] as of this encounter (statuses as of 07/27/2023) Immunizations Name Administration Dates Next Due COVID-19 mRNA, LNP-s, No Pre serve, 2-Dose Series (Moderna) 12/10/2020,11/12/2020 Hepatitis B, 20+ yrs 01/04/2018,08/03/2017,07/03 Pneumococcal Conjugate Vacci ne, 20-valent ([id number]) 06/09/2022 Pneumococcal Polysaccharide PPV23 (Pneumovax) 03/06/2020 Seasonal Influenza, PF, 6 M & above, IM , (FluLaval or Fluzone) 04/01/2023,04/27/2022,03/21/2021,04/18,07/11/2019,08/18/2017 Seasonal Influenza, Split, I IV3, With Preserve, Inj 04/05/2016 TDAP (age 10 and older)(Boostrix) 12/29/2016 Zoster Vaccine Recombinant (Shingrix) 05/29/2020 ,01/27/2020 documented as of this encounter Social History Tobacco Use Types Packs/Day Years Used Date Smoking Tobacco: Former Cigarettes 2 13 1 975 - 1988 Smokeless Tobacco: Never Alcohol Use Standard Drinks/Week [...] Description 07/29/2023 1:30 PM EST Home Visit [facility] [address] [place] [address] Love Stevens RN 132 [place] [address] 08/05/2023 9:30 AM EST Nurse Only Ancillary [address] [place] [address] [place], Nurse Annual [address] [place] [address] 08/06/2023 10:00 AM EST Office Visit Cardiology, [facility] [address] [place] [address] Evita Brennan CRNP [address] [place] [address] 08/21/2023 8:30 AM EST [facility] Visit [facility] [address] [place] [address] Love Stveens, ANNE MARIE [address] [place] [address] 09/16/2023 11:00 AM EDT Telemedicine Pharmacy, [facility] [address] [facility] [place] [address] Pharmacist1, [facility] [address] [facility] [place] [address] 10/06/2023 2:10 PM EDT Office Visit Family Medicine [address] [place] [phone] Bárbara Rios[address] [place] [address] 10/27/2023 8:30 AM EDT [facility] [address] [place] [phone] Lindsey Sheikh CRNP [address] [place] [address] 02/29/2024 3:20 PM EDT Office Visit Nephrology [address] [place] [address] Shivani Magallon MD 200 [facility] [place] [address] Scheduled Procedures Name Priority Associated Diagnoses Date/Ti [...] this encounter Medical Devices Implanted Type Area Chicken Buyer Device Identifier Shelf Expiration Date Model / Serial / Lot Lens Intraoc 21.0 - [id number] - [id number] Implanted:Qty: 1 on 01/22/2017 by Cheko Mcnamara MD at OR [facility] Right: Eye BAUSCH [employer] LOMB 08/05/2021 [id number] / [id number] / [id number] Lens Intraoc 21.5 - [id number] - [id number] Implanted:Qty: 1 on 02/03/2017 by Cheko Mcnamara MD at OR [facility] Left: Eye BAUSCH & LOMB 09/02/2021 [id number] / [id number] / [id number] documented as of this encounter Visit Diagnoses [...] and were consensually agreed upon. Care Teams Boilermaker Apprentice Relationship Specialty Start Date End Date Bárbara Rios DO [address] [place] [address] [place] [address] PCP - General Internal Medicine 08/16/21 documented as of this encounter
--- OUTSIDE RECORDS SUMMARY | 2023-10-20 22:59 | External Medical Summary | Summary of Care ---
Author Name Unknown Organization [facility] Address [address] [facility] [place] [address] Phone [phone] Care Team Providers Care Histology Supervisor Name Role Phone Bárbara Rios Primary Care Provider [phone] Encounter Details Date Type Department Care Team (Late st Contact Info) Description 07/22/2023 3:00 PM EST Telemedicine [facility], [facility] [address] [place] [address] Sam Gage PA-C [address] [place] [address] Griselda Chong [address] [place] [address] 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)*; BMI 40.0-44.9, adult ([facility]); 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, unspecified whether fdc insulin use (HCC); Chronic obstructive pulmonary disease, unspecified COPD type (HCC); Sacroiliitis (HCC); Other specified peripheral vascular diseases ([facility]); Coronary artery calcification seen on CT scan; Mixed dyslipidemia Allergies Active Allergy Reactions Criticality Noted Date Comments Other Allergy (See Comments) Rash Low 10/13/2022 1+ cocamidopropyl betaine Sglt2 Inhibitors Other (Please comment) High 09/04/2020 Genital infection Sulfa Antibiotics Rash 10/15/2016 documented as of this encounter (statuses as of 07/25/2023) Medications Medication Sig Dispensed Refills Start Date [...] a week. 9 mL 3 04/09/2023 Active Vxjxv-7-ojlg Ethyl Esters 1 GM Oral Capsule (Lovaza) [...] Evolocumab 140 MG/ML Subcutaneous Solution Auto-injector (Repatha HashParadeClick)Indicatio ns:Dyslipidemia, goal LDL below 100,Mixed dyslipidemia Inject [...] as of this encounter (statuses as of 07/25/2023) Active Problems Problem Noted Date Diagnosed Date [...] in the Comments) Remote Patient Monitoring Vendor: [facility] Device(s): Connected Scale Self - Management Plan [...] as of this encounter (statuses as of 07/25/2023) Resolved Problems Problem Noted Date Diagnosed Date [...] as of this encounter (statuses as of 07/25/2023) Immunizations Name Administration Dates Next Due COVID-19 mRNA, LNP-s, No Pre serve, 2-Dose Series (Moderna) 12/10/2020,11/12/2020 Hepatitis B, 20+ yrs 01/04/2018,08/03/2017,07/03 Pneumococcal Conjugate Vacci ne, 20-valent ([id number]) 06/09/2022 Pneumococcal Polysaccharide PPV23 (Pneumovax) 03/06/2020 Seasonal Influenza, PF, 6 M & above, IM , (FluLaval or Fluzone) 04/01/2023,04/27/2022,03/21/2021,04/18,07/11/2019,08/18/2017 Seasonal Influenza, Split, I IV3, With Preserve, Inj 04/05/2016 TDAP (age 10 and older)(Boostrix) 12/29/2016 Zoster Vaccine Recombinant (Shingrix) 05/29/2020 ,01/27/2020 documented as of this encounter Social History Tobacco Use Types Packs/Day Years Used Date Smoking Tobacco: Former Cigarettes 2 13 1 [id number] Smokeless Tobacco: Never Alcohol Use Standard Drinks/Week [...] Sign Reading Time Taken Comments Blood Pressure 116/62 07/22/2023 3:00 PM EST Pulse 64 07/22/2023 3:00 PM EST Temperature 36.6 C (97.9 F) 07/22/2023 3:00 PM ES T Respiratory Rate 20 07/22/2023 3:00 PM EST Oxygen Saturation 96% 07/22/2023 3:00 PM EST Inhaled Oxygen Concentration - - Weight - - Height - - Body Mass Index - - documented in this encounter Progress Notes * Griselda Chong, [employer] Shift Supervisor - 07/22/2023 8:17 PM EST Telemedicine visit: Yes Patient location: HOME. I was not in a hospital or clinic location. After connecting through televideo, patient was verified with two unique identifiers. Patient (or authorized legal customer support representative) was then informed that this was a Telemedicine visit and being conducted confidentially over secure lines. Methods to assure confidentiality were taken. Patient acknowledged consent and understanding of privacy and security of the Telemedicine visit. The patient agreed to participate. Community Health Warehouse Shift Supervisor ([facility]) documentation: [facility] home visit for return telemed with [facility] provider. See assessments/surveys completed this date. BP 116/62 (BP Site: Left Arm, BP Position: Sitting, BP Cuff Size: Regular) | Pulse 64 | Temp 36.6 C (97.9 F) | Resp 20 | SpO2 96% * Sam Gage PA-C - 07/22/2023 3:01 PM EST Images from the original note were not included. [facility] Problem Oriented Charting Provider Visit Date: 07/22/2023 Time: 3:01 PM [facility] Sub-Program: No data was found [facility] Episode Start Date: No linked episodes Assessment and Plan #1 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) (Primary) Assessment & Plan: "RED FLAG" HF Symptoms: [...] in the Comments) Remote Patient Monitoring Vendor: [facility] Device(s): Connected Scale Self - Management Plan Double dose of Torsemide for 3 days Exacerbation Plan BMP Chest X-Ray Additional Comments: Recommended using double torsemide for 3 days in a row, rather than 1 day like he has been doing Continue using AMC scale Low sodium diet #2 BMI 40.0-44.9, adult ([facility]) Overview: Per Obesity protocol - ICD-10 update of inactive diagnosis #3 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, unspecified whether local intermodal truck driver insulin use (HCC) Assessment & Plan: "RED FLAG" Diabetic symptoms: Vision Changes and Nausea / Vomiting Goal HgbA1c <8 Diabetic Complications Vascular (examples: PVD, PAD, CAD, CVA) Neurologic (example: Peripheral Neuropathy) Renal (example: CKD, Proteinuria, Dialysis) Medication Regimen Basal/Long Acting Insulin Bolus/Short Acting Insulin GLP-1 Agonist (ex: Victoza, Trulicity, Ozempic) DM Secondary Prevention ARIANNA Inhibitor / ARB Aspirin Yearly Diabetic Eye Exam Additional Comments Follows with MTCatherine and SUDHIR #4 Chronic obstructive pulmonary disease, unspecified COPD type (HCC) Overview: PFTs done on 12/18/2022 show severe obstructive disease. Not currently requiring any inhaled medications #5 Sacroiliitis (HCC) #6 Other specified peripheral vascular diseases (HCC) #7 Coronary artery calcification seen on CT scan #8 Mixed dyslipidemia Assessment & Plan: Continues on lovaza 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 [employer] Additional Medical Decision Making: Intermittent use of torsemide DTP Otherwise fairly stable Lives with spouse Independent with ADLs Using cane outside for ambulation Scheduled appointments in the next 60 days: Future Appointments-next 60 days Date/Time Provider Specialty Dept Phone 07/28/2023 10:30 AM Mery Calderon RDN [facility] [phone] 07/29/2023 1:30 PM Love Stevens RN [facility] [phone] 08/05/2023 9:30 AM Nurse [place] [facility] Ancillary [phone] 08/06/2023 10:00 AM (Arrive by 9:45 AM) Evita Brennan CRNP Cardiology [phone] 08/21/2023 8:30 AM Love Stevens RN [facility] [phone] 09/16/2023 11:00 AM Pharmacist1, [facility] [phone] 10/06/2023 2:10 PM (Arrive by 1:55 PM) Bárbara Rios DO [facility] Medicine [phone] 10/27/2023 8:30 AM (Arrive by 8:15 AM) Lindsey Sheikh CRNP Sleep Disorders [phone] 02/29/2024 3:20 PM (Arrive by 3:05 PM) Shivani Magallon MD Nephrology [phone] A total of 20 minutes was spent face to face (via video-based telemedicine if designated as a telemedicine visit) Subjective Subjective Is this a Telemedicine Visit? Yes, Patient location: HOME. I was not in a hospital or clinic location. After connecting through televideo, patient was verified with two unique identifiers. Patient (or authorized legal customer support representative) was then informed that this was a Telemedicine visit and being conducted confidentially over secure lines. Methods to assure confidentiality were taken. Patient acknowledged consent and understanding of privacy and security of the Telemedicine visit. The patient agreed to participate. Reason For [facility] Visit: Follow-Up Current Concerns: Tony Delong is a 63 year old male seen today for a [facility] provider visit. Today's concerns are: Slight weight gain and abdominal bloating Reports that he doubled his torsemide on 07/19 and then again today (07/22) Weight today 292.8lbs Feels like his dry weight is around 288lbs, although chart review notes 293lbs for dry weight He continues to weigh daily with AMC scale Following low sodium diet and trying to limit fluids, although reports can be difficult at times Generally he is able to tell when he starts to retain fluid before he even weighs himself Typically starts with abd bloating, leg edema and then progresses to SOB He continues to use CPAP at hs Sleeps with HOB elevated Feels like blood glucose is stable Monitors with cindy CGM Novolog tid with CF Ozempic weekly Additional Objective Objective Vitals: 07/22/23 1500 Temp: 36.6 C (97.9 F) Pulse: 64 Resp: 20 SpO2: 96% BP: 116/62 Last Weights: Wt Readings from Last 3 Encounters: 06/19/23 (!) 138.3 kg (305 lb) 05/25/23 (!) 138.1 kg (304 lb 7.3 oz) 04/01/23 (!) 138.1 kg (304 lb 6.4 oz) Last BPs: BP Readings from Last 4 Encounters: 07/22/23 116/62 06/26/23 158/74 06/19/23 147/65 05/26/23 116/58 General: alert, no distress, and obese Neuro: alert & oriented x 3 with fluent speech Heart: regular rate & rhythm and no murmur Lungs: no chest wall tenderness, lungs clear to auscultation, no wheeze, no rales, no rhonchi Ext: trace edema Lab Review: I have reviewed the following results: Imaging results in the last 6 months No imaging results in the last 6 months BMP results Recent Labs Units 06/11/23 1111 04/27/23 1403 04/21/23 1315 SODIUM - [facility] mmol/L 139 140 141 POTASSIUM - [facility] mmol/L 4.0 4.2 4.0 CHLORIDE - [facility] mmol/L 104 100 102 CO2 - [facility] mmol/L 24 26 25 CREATININE - [facility] mg/dL 2.1* 1.9* 1.8* BUN - [facility] mg/dL 42* 44* 37* Lipid panel results Recent Labs Units 07/10/23 1057 04/01/23 1531 01/05/23 0827 10/23/22 0912 07/23/22 0833 CHOLESTEROL - [facility] mg/dL 175 164 233* 189 216* LDL CHOLESTEROL (CALCULATED) - [facility] mg/dL -- -- 152* 109 135* HDL CHOLESTEROL - [facility] mg/dL 26* 28* 25* 39* 38* TRIGLYCERIDES - [facility] mg/dL 274* 337* 278* 203* 216* CBC results Recent Labs Units 06/11/23 1111 01/31/23 0000 12/17/22 1438 12/12/22 1415 11/26/22 1202 WBC AUTO - [facility] K/uL -- -- 6.11 5.41 5.92 HGB - [facility] g/dL 12.9* -- 13.3* 13.0* 12.8* HEMOGLOBIN-OUTSIDE LAB GM/DL -- 13.6 -- -- -- HCT - [facility] % -- -- 41.2 41.0 41.1 PLATELET AUTO - [facility] K/uL -- -- 151 124* 161 HbA1c results Recent Labs Units 06/11/23 1111 04/01/23 1531 12/17/22 1438 HEMOGLOBIN A1C - [facility] % 8.2* 7.2* 9.4* TSH results Recent Labs Units 04/18/22 1044 TSH - [facility] uIU/mL 2.21 Sam Gage PA-C 3:01 PM *Communication sent to PCP (via autofax if [facility]), [facility] Health Care Team members,relevant Specialty Care Physicians* documented in this encounter Miscellaneous Notes * Assessment & Plan Note - Sam Gage PA-C - 07/25/2023 7:42 PM EST Associated Problem(s): Mixed dyslipidemia Continues on lovaza 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 repatha * Assessment & Plan Note - Sam Gage PA-C - 07/25/2023 7:38 PM EST Associated Problem(s): 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 (HCC) "RED FLAG" Diabetic symptoms: Vision Changes and Nausea / Vomiting Goal HgbA1c <8 Diabetic Complications Vascular (examples: PVD, PAD, CAD, CVA) Neurologic (example: Peripheral Neuropathy) Renal (example: CKD, Proteinuria, Dialysis) Medication Regimen Basal/Long Acting Insulin Bolus/Short Acting Insulin GLP-1 Agonist (ex: Victoza, Trulicity, Ozempic) DM Secondary Prevention ARIANNA Inhibitor / ARB Aspirin Yearly Diabetic Eye Exam Additional Comments Follows with MTM and RDN * Assessment & Plan Note - Sam Gage PA-C - 07/22/2023 3:04 PM EST Associated Problem(s): 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) "RED FLAG" HF Symptoms: Leg Swelling (Examples: [...] in the Comments) Remote Patient Monitoring Vendor: [facility] Device(s): Connected Scale Self - Management Plan Double dose of Torsemide for 3 days Exacerbation Plan BMP Chest X-Ray Additional Comments: Recommended using double torsemide for 3 days in a row, rather than 1 day like he has been doing Continue using AMC scale Low sodium diet documented in this encounter Plan of Treatment Upcoming Encounters Date Type Department Care Team (Late st Contact Info) Description 07/26/2023 11:30 AM EST Scheduled Telephone [facility], [facility] [address] [place] [address] [facility], Nurse [facility] [address] [place] [address] 07/28/2023 10:30 AM EST Nutrition Services [facility], [facility] [address] [facility] [place] [address] Mery Calderon RDN [address] [facility] [place] [address] 07/29/2023 1:30 PM EST Home Visit [facility], [facility] [address] [place] [address] Love Stevens RN [address] [place] [address] 08/05/2023 9:30 AM EST Nurse Only Ancillary [address] [place] [address] [place], Nurse [address] [place] [address] 08/06/2023 10:00 AM EST Office Visit Cardiology, [facility] [address] [facility] [place] [address] Evita Brennan CRNP [address] [place] [address] 08/21/2023 8:30 AM EST [facility] Visit [facility] [place] [address] Love Stevens RN [address] [facility] [place] [address] 09/16/2023 11:00 AM EDT Telemedicine Pharmacy, [facility] [address] [facility] [place] [address] Pharmacist1, [facility] 200 [facility] [place] [address] 10/06/2023 2:10 PM EDT Office Visit Family Medicine [address] [place] [phone] Bárbara Rios[address] [place] [address] 10/27/2023 8:30 AM EDT Office Visit Sleep Disorders Ctr [facility] [address] [facility] [place] [phone] Lindsey Sheikh CRNP [address] [facility] [place] [address] 02/29/2024 3:20 PM EDT Office Visit Nephrology [address] [place] [address] Shivani Magallon MD [address] [facility] [place] [address] Scheduled Procedures Name Priority Associated Diagnoses Date/Ti [...] (2 - Td or Tdap) 12/29/2026 12/29/2016 Lipid Panel 07/10/2028 07/10/2023, 03/07, 01/05/2023, Additional history exists Hepatitis B Completed 01/04/2018, 07/07, 07/03/2017 Zoster [...] this encounter Medical Devices Implanted Type Area Awning Craftsperson Device Identifier Shelf Expiration Date Model / Serial / Lot Lens Intraoc 21.0 - [id number] - [id number] Implanted:Qty: 1 on 01/22/2017 by Cheko Mcnamara MD at OR [facility] Right: Eye [employer]USCH & LOMB 08/05/2021 [id number] / [id number] / [id number] Lens Intraoc 21.5 - [id number] - [id number] Implanted:Qty: 1 on 02/03/2017 by Cheko Mcnamara MD at OR [facility] Left: Eye BAUSCH & LOMB 09/02/2021 [id number] / [id number] / [id number] documented as of this encounter Visit Diagnoses Diagnosis 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)- Primary BMI 40.0-44.9, adult (HCC) Body Mass Index 40.0-44.9, adult 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 Care Teams Histology Supervisor Relationship Specialty Start Date End Date Bárbara Rios DO [address] [place] [address] [place] [address] PCP - General Internal Medicine 08/16/21 documented as of this encounter
--- OUTSIDE RECORDS SUMMARY | 2023-10-20 22:59 | External Medical Summary | Summary of Care ---
Author Name Unknown Organization [facility] Address [address] [facility] [place] [address] Phone [phone] Care Team Providers Care Checkman Name Role Phone Bárbara Rios Primary Care Provider [phone] Reason for Visit * Reason Onset Date Comments [facility]: Maintenance 07/24/2023 Encounter Details Date Type Department Care Team (Late st Contact Info) Description 07/24/2023 1:30 PM EST Scheduled Telephone [facility], [facility] [address] [place] [address] Coordinator, [facility] [address] [place] [address] Allergies Active Allergy Reactions Criticality Noted Date Comments Other Allergy (See Comments) Rash Low 10/13/2022 1+ cocamidopropyl betaine Sglt2 Inhibitors Other (Please comment) High 09/04/2020 Genital infection Sulfa Antibiotics Rash 10/15/2016 documented as of this encounter (statuses as of 07/24/2023) Medications Medication Sig Dispensed Refills Start Date [...] 32 UNITS WITH DINNER PLUS CORRECTION PER [facility] OR DIRECTED UP TO [...] a week. 9 mL 3 04/09/2023 Active Jtvvj-9-ialw Ethyl Esters 1 GM Oral Capsule (Lovaza) [...] Active Evolocumab 140 MG/ML Subcutaneous Solution Auto-injector (Mobicowatha TissuetechClick)Indicatio ns:Dyslipidemia, goal LDL below 100,Mixed dyslipidemia Inject [...] as of this encounter (statuses as of 07/24/2023) Active Problems Problem Noted Date Diagnosed Date Chronic obstructive pulmonary disease 01/21/2023 Last Assessment & Plan: PFTs done on 12/18/2022 show severe obstructive disease. Not currently requiring any inhaled medications. Needs follow-up scheduled with Pulmonary to discuss results and recommendations. Chronic heart failure with preserved ejection fr action 10/03/2022 Sacroiliitis 09/02/2022 Type 2 diabetes mellitus wit h stage 3b chronic kidney disease, with long-term current use of insulin 05/25/2022 Last Assessment & Plan: "RED FLAG" Diabetic [...] better controlled recently. Monitor using freestyle Cindy. Hypertensive heart and kidne y disease with [...] in the Comments) Remote Patient Monitoring Vendor: [facility] Device(s): Connected Scale Self - Management Plan Double dose of Torsemide for 3 days Exacerbation Plan BMP Chest X-Ray Additional Comments: Chronic kidney disease, stage 3b 03/17/2022 Overview: [...] Mixed dyslipidemia 08/18/2017 Last Assessment & Plan: Patient was not taking Repatha due to cost but recently restarted. Will hold fenofibrate due to EGFR less than 30. -already has repeat lipid panel scheduled in 3 months. History of tobacco use 08/18/2017 CHAPIN[place]O on [...] as of this encounter (statuses as of 07/24/2023) Resolved Problems Problem Noted Date Diagnosed Date Resolved Date NEMESIO (acute kidney injury) 04/30/2022 Severe obesity [...] as of this encounter (statuses as of 07/24/2023) Immunizations Name Administration Dates Next Due COVID-19 mRNA, LNP-s, No Pre serve, 2-Dose Series (Moderna) 12/10/2020,11/12/2020 Hepatitis B, 20+ yrs 01/04/2018,08/03/2017,07/03 Pneumococcal Conjugate Vacci ne, 20-valent ([id number]) 06/09/2022 Pneumococcal Polysaccharide PPV23 (Pneumovax) 03/06/2020 Seasonal [...] Telephone Encounter - Parris Francis RN - 07/24/2023 3:17 PM EST Received message with orders from Dr Mulligan. Outgoing call to pt and read the entire message to him. Pt is aware and repeated back that he is to take Torsemide 40 mg BID today, tomorrow and Thursday. F/U call scheduled for tomorrow. Parris CHAMBERLAIN, RN [facility] Intake Triage Coordinator [phone] * Telephone Encounter - Wilfredo Mulligan DO - 07/24/2023 1:56 PM EST [facility] Remote Medical Command [employer] [facility] Subprogram: Focused Care Management (3-9 months) [facility] Episode Start Date: No linked episodes Brief Recommendations: I would have him today the 40mg BID today, tomorrow, and Thursday as it appears to be becoming effective To Do: Please see below for follow up items to be completed and correspondence: JOSE ALFREDO to Tony's Care Team maintenance foreman Pool please work on the following: contact the caller with advice and orders as above Wilfredo Mulligan DO Remote Medical Command - [facility] 07/24/2023 Scheduled appointments in the next 60 days: Future Appointments-next 60 days Date/Time Provider Specialty Dept Phone 07/28/2023 10:30 AM Mery Calderon RDN [facility] [phone] 07/29/2023 1:30 PM Love Stevens RN [facility] [phone] 08/05/2023 9:30 AM [place], Nurse [facility] [phone] 08/06/2023 10:00 AM (Arrive by 9:45 AM) Evita Brennan CRNP Cardiology [phone] 08/21/2023 8:30 AM Love Stevens RN [facility] [phone] 09/16/2023 11:00 AM Pharmacist1, [facility] [phone] 10/06/2023 2:10 PM (Arrive by 1:55 PM) Bárbara Rios DO Family Medicine [phone] 10/27/2023 8:30 AM (Arrive by 8:15 AM) Lindsey Sheikh CRNP Sleep Disorders [phone] 02/29/2024 3:20 PM (Arrive by 3:05 PM) Shivani Magallon MD Nephrology [phone] * Telephone Encounter - Parris Francis RN - 07/24/2023 11:12 AM EST Images from the original note were not included. [facility] Telephonic Nurse Follow-Up Call [facility] Subprogram: Focused Care Management (3-9 months) Follow Up Call Type: 24 hour follow up Acute issue requiring follow-up call: Heart Failure Exacerbation Other: f/u DTP, and assess need for continued DTP Objective: 07/22/2023 3:00 PM 06/26/2023 9:37 AM 06/19/2023 1:37 PM 05/26/2023 11:41 AM 05/25/2023 7:51 AM VITALS ACROSS ENCOUNTERS BP 116/62 158/74 147/65 116/58 Pulse 64 76 67 66 Weight 138.3 kg 138.1 kg BMI 40.79 BMI 40.86 kg/m2 40.79 kg/m2 Lab Results Component Value Date BLOOD, URINE - [facility] Negative 06/11/2023 PROTEIN, URINE - [facility] 30 (A) 06/11/2023 ESTERASE, URINE - [facility] Negative 06/11/2023 WBC, URINE - [facility] 0-2 06/11/2023 NITRITE, URINE - [facility] Negative 06/11/2023 Lab Results Component Value Date HGB - [facility] 12.9 (L) 06/11/2023 Lab Results Component Value Date SODIUM - [facility] 139 06/11/2023 POTASSIUM - [facility] 4.0 06/11/2023 CO2 - [facility] 24 06/11/2023 CREATININE - [facility] 2.1 (H) 06/11/2023 ESTIMATED GLOMERULAR FILTRATION RATE - [facility] 35 (L) 06/11/2023 ALBUMIN - [facility] 4.1 06/11/2023 No results found for: "PRO BNP", "LEFT VENTRICULAR EJECTION FRACTION" Remote Patient Monitoring: [facility] Scale: Oxygen Needs: NO supplemental oxygen needs identified DME Needs: Other: cpap Medications: Current DTP: Double dose of Torsemide for 3 days Avoid excessive fluid intake and avoid salty, processed food Weigh daily Pt did his DTP on 07/22 and 07/23 On 07/23 afternoon pt started Torsemide 40 mg BID The pt did take Torsemide 40 mg this morning Subjective: Condition Status: Improvement in symptoms but not at baseline Current Concerns: Spoke with pt who states that he still feels "a little SOB". Weight loss 3.1 lbs since yesterday. His abdomen is still a little swollen. Denies edema to BLE. He does report that his urinary output is"increased overall". He urinated multiple times for the 1-2 hours prior to going to bed last night.Nocturia x1 over night. Pt still has a cough for clear to yellow sputum. Denies fever or chills. Last BM yesterday. Pt did not apply his compression stockings yesterday or today. Instructed to wear the compression stockings whether or not he has edema to LE. Pt states the he will apply them now. Notified this maintenance foreman will route to Provider to inquire about what dose of Torsemide the pt should take today and for the weekend. Disposition: Routed to [facility] and/or [facility] Care Team for further advice Future Visits Scheduled: Future Appointments-next 60 days Date/Time Provider Specialty Dept Phone 07/24/2023 1:30 PM CoordinatorMorales [facility] [phone] 07/28/2023 10:30 AM Mery Calderon RDN [facility] [phone] 07/29/2023 1:30 PM Love Stevens, ANNE MARIE [facility] [phone] 08/05/2023 9:30 AM Osito Nurse [facility] [phone] 08/06/2023 10:00 AM (Arrive by 9:45 AM) Evita Brennan CRNP Cardiology [phone] 08/21/2023 8:30 AM Love Stevens, RN [facility] [phone] 09/16/2023 11:00 AM Pharmacist1, [facility] [phone] 10/06/2023 2:10 PM (Arrive by 1:55 PM) Bárbara Rios DO Family Medicine [phone] 10/27/2023 8:30 AM (Arrive by 8:15 AM) Lindsey Sheikh CRNP Sleep Disorders [phone] 02/29/2024 3:20 PM (Arrive by 3:05 PM) Shivani Magallon MD Nephrology [phone] Parris Francis, RN documented in this encounter Plan of Treatment Upcoming Encounters Date Type Department Care Team (Late st Contact Info) Description 07/28/2023 10:30 AM EST Nutrition Services [facility], [facility] [address] [facility] [place] [address] Mery Calderon RDN [address] [facility] [place] [address] 07/29/2023 1:30 PM EST Home Visit [facility], [facility] [address] [facility] [place] [address] Love Stevens, RN [address] [facility] [place] [address] 08/05/2023 9:30 AM EST Nurse Only Ancillary [address] [place] [address] [place], Nurse [address] [place] [address] 08/06/2023 10:00 AM EST Office Visit Cardiology, [facility] [place] [address] Evita Brennan CRNP [address] [place] [address] 08/21/2023 8:30 AM EST Home Visit [facility], [facility] [address] [place] [address] Love Stevens, ANNE MARIE [address] [place] [address] 09/16/2023 11:00 AM EDT Telemedicine Pharmacy, [facility] [address] [place] [address] Pharmacist1, [facility] [address] [place] [address] 10/06/2023 2:10 PM EDT Office Visit Family Medicine [address] [place] [phone] Bárbara Rios [address] [place] [address] 10/27/2023 8:30 AM EDT Office Visit Sleep Disorders Ctr [facility] [address] [facility] [place] [phone] Lindsey Sheikh CRNP [address] [facility] [place] [address] 02/29/2024 3:20 PM EDT Office Visit Nephrology [address] [place] [address] Shivani Magallon MD [address] [place] [address] Scheduled Procedures Name Priority Associated Diagnoses Date/Ti [...] this encounter Medical Devices Implanted Type Area Safe Deposit Attendant Device Identifier Shelf Expiration Date Model / Serial / Lot Lens Intraoc 21.0 - [id number] - [id number] Implanted:Qty: 1 on 01/22/2017 by Cheko Mcnamara MD at OR [facility] Right: Eye BAUSCH & LOMB 08/05/2021 [id number] / [id number] / [id number] Lens Intraoc 21.5 - [id number] - [id number] Implanted:Qty: 1 on 02/03/2017 by Cheko Mcnamara MD at OR [facility] Left: Eye BAUSCH & LOMB 09/02/2021 [id number] / [id number] / [id number] documented as of this encounter Advance Directives [...] and were consensually agreed upon. Care Teams Checkman Relationship Specialty Start Date End Date Bárbara Rios DO [address] [place] [address] [place] [phone] PCP - General Internal Medicine 08/16/21 documented as of this encounter
--- OUTSIDE RECORDS SUMMARY | 2023-10-20 22:59 | External Medical Summary | Summary of Care ---
Author Name Unknown Organization [facility] Address [address] [facility] [place] [address] Phone [phone] Care Team Providers Care Grain Receiver Name Role Phone Bárbara Rios Primary Care Provider [phone] Reason for Visit * Reason Onset Date Comments [facility]: Maintenance 07/24/2023 Encounter Details Date Type Department Care Team (Late st Contact Info) Description 07/24/2023 1:30 PM EST Scheduled Telephone [facility], [facility] [address] [place] [address] Coordinator, [facility] [address] [place] [address] Allergies Active Allergy Reactions Criticality Noted Date [...] 32 UNITS WITH DINNER PLUS CORRECTION PER [facility] OR DIRECTED UP TO 120 [...] a week. 9 mL 3 04/09/2023 Active Enskp-7-ftbe Ethyl Esters 1 GM Oral Capsule (Lovaza) [...] Active Evolocumab 140 MG/ML Subcutaneous Solution Auto-injector (Multiplyatha BreathalEyesClick)Indicatio ns:Dyslipidemia, goal LDL below 100,Mixed dyslipidemia Inject [...] in the Comments) Remote Patient Monitoring Vendor: [facility] Device(s): Connected Scale Self - [...] yrs 01/04/2018,08/03/2017,07/03 Pneumococcal Conjugate Vacci ne, 20-valent ([id number]) 06/09/2022 Pneumococcal Polysaccharide PPV23 (Pneumovax) 03/06/2020 Seasonal [...] encounter Miscellaneous Notes * Telephone Encounter - Wilfredo Mulligan DO - 07/24/2023 1:56 PM EST [facility] Remote Medical Command [facility] Subprogram: Focused Care Management (3-9 months) [facility] Episode Start Date: No linked episodes Brief Recommendations: I would have him today the 40mg BID today, tomorrow, and Thursday as it appears to be becoming effective To Do: Please see below for follow up items to be completed and correspondence: JOSE ALFREDO to Tony's Care Team medical genetics director Pool please work on the following: contact the caller with advice and orders as above Wilfredo Mulligan DO Remote Medical Command - [facility] 07/24/2023 Scheduled appointments in the next 60 days: Future Appointments-next 60 days Date/Time Provider Specialty Dept Phone 07/28/2023 10:30 AM Mery Calderon RDN [facility] [phone] 07/29/2023 1:30 PM Love Stevens RN [facility] [phone] 08/05/2023 9:30 AM Nurse [place] [facility] [phone] 08/06/2023 10:00 AM (Arrive by 9:45 AM) Evita Brennan CRNP Cardiology [phone] 08/21/2023 8:30 AM Love Stevens RN [facility] [phone] 09/16/2023 11:00 AM Pharmacist, [facility] [phone] 10/06/2023 2:10 PM (Arrive by 1:55 PM) Bárbara Rios DO Family Medicine [phone] 10/27/2023 8:30 AM (Arrive by 8:15 AM) Lindsey Sheikh CRNP Sleep Disorders [phone] 02/29/2024 3:20 PM (Arrive by 3:05 PM) Shivani Magallon MD Nephrology [phone] * Telephone Encounter - Parris Francis RN [...] he will apply them now. Notified this medical genetics director will route to Provider to inquire about what dose of Torsemide the pt should take today and for the weekend. Disposition: Routed to [facility] and/or [facility] Care Team for further advice Future Visits Scheduled: Future Appointments-next 60 days Date/Time Provider Specialty Dept Phone 07/24/2023 1:30 PM CoordinatorMorales [facility] [phone] 07/28/2023 10:30 AM Mery Calderon RDN [facility] [phone] 07/29/2023 1:30 PM Love Stevens RN [facility] [phone] 08/05/2023 9:30 AM Nurse [place] [facility] [phone] 08/06/2023 10:00 AM (Arrive by 9:45 AM) Evita Brennan CRNP Cardiology [phone] 08/21/2023 8:30 AM Love Stevens RN [facility] [phone] 09/16/2023 11:00 AM Pharmacist1, [facility] [phone] 10/06/2023 2:10 PM (Arrive by 1:55 PM) Bárbara Rios DO [facility] Medicine [phone] 10/27/2023 8:30 AM (Arrive by 8:15 AM) Lindsey Sheikh CRNP Sleep Disorders [phone] 02/29/2024 3:20 PM (Arrive by 3:05 PM) Shivnai Magallon MD Nephrology [phone] Parris Francis, RN documented in this encounter Plan of Treatment Upcoming Encounters Date Type Department Care Team (Late st Contact Info) Description 07/28/2023 10:30 AM EST Nutrition Services [facility], [facility] [address] [facility] [place] [address] Mery Calderon RDN [address] [facility] [place] [address] 07/29/2023 1:30 PM EST [facility] Visit [facility], [facility] [address] [place] [address] Love Stevens RN [address] [facility] [place] [address] 08/05/2023 9:30 AM EST Nurse Only Ancillary [address] [place] [address] [place], Nurse [address] [place] [address] 08/06/2023 10:00 AM EST Office Visit Cardiology, [facility] [address] [place] [address] Evita Brennan CRNP [address] [place] [address] 08/21/2023 8:30 AM EST Home Visit [facility], [facility] [address] [place] [address] Love Stevens, ANNE MARIE [address] [facility] [place] [address] 09/16/2023 11:00 AM EDT Telemedicine Pharmacy, [facility] [place] [address] [facility] [place] [address] Pharmacist1, [facility] [address] [facility] [place] [address] 10/06/2023 2:10 PM EDT Office Visit Family Medicine [address] [place] [phone] Bárbara Rios[address] [place] [address] 10/27/2023 8:30 AM EDT Office Visit [facility] Disorders Ctr [facility] [place] [phone] Lindsey Sheikh CRNP [facility] [place] [address] 02/29/2024 3:20 PM EDT Office Visit Nephrology [address] [place] [address] Shivani Magallon MD [address] [facility] [place] [address] Scheduled Procedures Name Priority Associated Diagnoses Date/Ti [...] this encounter Medical Devices Implanted Type Area Strap Making Machine Operator Device Identifier Shelf Expiration Date Model / Serial / Lot Lens Intraoc 21.0 - [id number] - [id number] Implanted:Qty: 1 on 01/22/2017 by Cheko Mcnamara MD at OR [facility] Right: Eye BAUSCH & LOMB 08/05/2021 [id number] / [id number] / [id number] Lens Intraoc 21.5 - [id number] - [id number] Implanted:Qty: 1 on 02/03/2017 by Cheko Mcnamara MD at [facility] Left: Eye BAUSCH & LOMB 09/02/2021 [id number] / [id number] / [id number] documented as of this encounter Advance Directives [...] and were consensually agreed upon. Care Teams Grain Receiver Relationship Specialty Start Date End Date Bárbara Rios DO [address] [place] [address] [place] [phone] PCP - General Internal Medicine 08/16/21 documented as of this encounter
--- OUTSIDE RECORDS SUMMARY | 2023-10-20 22:59 | External Medical Summary | Summary of Care ---
Author Name Unknown Organization [facility] Address [address] [facility] [place] [address] Phone [phone] Care Team Providers Care Kennel Hand Name Role Phone Bárbara Rios Primary Care Provider [phone] Reason for Visit * Reason Onset Date Comments [facility]: Maintenance 07/25/2023 Encounter Details Date Type Department Care Team (Late st Contact Info) Description 07/25/2023 11:30 AM EST Scheduled Telephone [facility], [facility] [address] [facility] [place] [address] [facility], Nurse [facility] [address] [facility] [place] [address] Allergies Active Allergy Reactions Criticality Noted Date [...] 32 UNITS WITH DINNER PLUS CORRECTION PER [facility] OR DIRECTED UP TO [...] a week. 9 mL 3 04/09/2023 Active Zlxoc-0-whwn Ethyl Esters 1 GM Oral Capsule (Lovaza) [...] Active Evolocumab 140 MG/ML Subcutaneous Solution Auto-injector (Amoobiatha QivivoClick)Indicatio ns:Dyslipidemia, goal LDL below 100,Mixed dyslipidemia Inject [...] yrs 01/04/2018,08/03/2017,07/03 Pneumococcal Conjugate Vacci ne, 20-valent ([id number]) 06/09/2022 Pneumococcal Polysaccharide PPV23 (Pneumovax) 03/06/2020 Seasonal [...] encounter Miscellaneous Notes * Telephone Encounter - Charlene Vila RN - 07/25/2023 12:21 PM EST Communication Note Name: Tony Delong Situation: f/u torsemide 40mg bid Background: CHF, CKD 4 Chart reviewed Wts reviewed via [facility] readings in yesterday's communication Assessment: Unable to locate pt in [facility] system at time of call T/c tp pt No answer LMOM with 833 number asking him to return call Recommendation: Placed on tomorrow's schedule for f/u call documented in this encounter Plan of Treatment Upcoming Encounters Date Type Department Care Team (Late st Contact Info) Description 07/26/2023 11:30 AM EST Scheduled Telephone [facility], [facility] [address] [facility] [place] [address] [facility], Nurse [address] [place] [address] 07/28/2023 10:30 AM EST Nutrition Services [facility], [facility] [address] [facility] [place] [address] Mery Calderon RDN [address] [facility] [place] [address] 07/29/2023 1:30 PM EST Home Visit [facility], [facility] [address] [facility] [place] [address] Love Stevens, ANNE MARIE [address] [facility] [place] [address] 08/05/2023 9:30 AM EST Nurse Only Ancillary [address] [place] [address] [place], Nurse [address] [place] [address] 08/06/2023 10:00 AM EST Office Visit Cardiology, [facility] [address] [place] [address] Evita Brennan CRNP [address] [place] [address] 08/21/2023 8:30 AM EST Home Visit [facility], [facility] [address] [place] [address] Love Stevens, ANNE MARIE [address] [place] [address] 09/16/2023 11:00 AM EDT Telemedicine Pharmacy, [facility] [address] [place] [address] Pharmacist1, [facility] [address] [place] [address] 10/06/2023 2:10 PM EDT Office Visit Family Medicine [address] [place] [phone] Bárbara Rios [address] [place] [address] 10/27/2023 8:30 AM EDT Office Visit Sleep Disorders Ctr [facility] [address] [place] [phone] Lindsey Sheikh CRNP [address] [place] [address] 02/29/2024 3:20 PM EDT Office Visit Nephrology [address] [place] [address] Shivani Magallon MD [address] [place] [address] Scheduled Procedures Name Priority Associated Diagnoses Date/Ti me ESOPHAGOGASTRODUODENOSCOPY ( EGD), FLEXIBLE, TRANSORAL, DIAGNOSTIC Recall Arreola's esophagus with dysplasia COLONOSCOPY FLEXIBLE PROXIMAL DIAGNOSTIC Recall History of colon polyps Health Maintenance Due Date Last Done Comments HIV Screening 1974 Alpha-1 Antitrypsin 1977 COLONOSCOPY-EVERY 5 YRS AGES 18-100 01/01/2023 01/01/2018, 01/01/2018 COVID-19 Vaccine ( - 2022- season) 2023 12/10/2020, 11/12/2020 Depression [...] encounter Medical Devices Implanted Type Area Manual Arts Therapist Device Identifier Shelf Expiration Date Model / Serial / Lot Lens Intraoc 21.0 - [id number] - [id number] Implanted:Qty: 1 on 01/22/2017 by Cheko Mcnamara MD at OR [facility] Right: Eye BAUSCH & LOMB 08/05/2021 [id number] / [id number] / [id number] Lens Intraoc 21.5 - [id number] - [id number] Implanted:Qty: 1 on 02/03/2017 by Cheko Mcnamara MD at OR [facility] Left: Eye BAUSCH & LOMB 09/02/2021 [id number] / [id number] / [id number] documented as of this encounter Advance Directives [...] and were consensually agreed upon. Care Teams Kennel Hand Relationship Specialty Start Date End Date Bárbara Rios DO [address] [place] [address] [place] [address] PCP - General Internal Medicine 08/16/21 documented as of this encounter
--- OUTSIDE RECORDS SUMMARY | 2023-10-20 22:59 | External Medical Summary | Summary of Care ---
Author Name Unknown Organization [facility] Address [address] [facility] [place] [address] Phone [phone] Care Team Providers Care Seal Delivery Vehicle Team Technician Name Role Phone Bárbara Rios Primary Care Provider [phone] Reason for Visit * Reason Onset Date Comments [facility]: Maintenance 07/23/2023 Encounter Details Date Type Department Care Team (Late st Contact Info) Description 07/23/2023 Telephone [facility], [facility] [address] [place] [address] [facility], Nurse [facility] [address] [facility] [place] [place] [address] [facility]: Maintenance Allergies Active Allergy Reactions Criticality Noted Date Comments Other Allergy (See Comments) Rash Low 10/13/2022 1+ cocamidopropyl betaine Sglt2 Inhibitors Other (Please comment) High 09/04/2020 Genital infection Sulfa Antibiotics Rash 10/15/2016 documented as of this encounter (statuses as of 07/23/2023) Medications Medication Sig Dispensed Refills Start Date [...] 32 UNITS WITH DINNER PLUS CORRECTION PER [facility] OR DIRECTED UP TO 120 UNITS [...] a week. 9 mL 3 04/09/2023 Active Efvrw-2-hjvb Ethyl Esters 1 GM Oral Capsule (Lovaza) [...] Active Evolocumab 140 MG/ML Subcutaneous Solution Auto-injector (Audicusatha 9Youick)Indicatio ns:Dyslipidemia, goal LDL below 100,Mixed dyslipidemia Inject [...] as of this encounter (statuses as of 07/23/2023) Active Problems Problem Noted Date Diagnosed Date [...] the Comments) Remote Patient Monitoring Vendor: [facility] Device(s): Connected Scale Self [...] as of this encounter (statuses as of 07/23/2023) Resolved Problems Problem Noted Date Diagnosed Date [...] as of this encounter (statuses as of 07/23/2023) Immunizations Name Administration Dates Next Due COVID-19 mRNA, LNP-s, No Pre serve, 2-Dose Series (Moderna) 12/10/2020,11/12/2020 Hepatitis B, 20+ yrs 01/04/2018,08/03/2017,07/03 Pneumococcal Conjugate Vacci ne, 20-valent ([id number]) 06/09/2022 Pneumococcal Polysaccharide PPV23 (Pneumovax) 03/06/2020 Seasonal [...] Telephone Encounter - Josh Sullivan MD - 07/23/2023 11:18 AM EST This patient has ckd 3b, at risk for NEMESIO with overly aggressive diuresis. Recommend continue current oral DTP if his urine output increased with it. If not, please instruct him to change to 40 mg bid Na and fluid restriction Leg elevation and compression Wt checks Follow-up call tomorrow; red dot * Telephone Encounter - Alexandra Mcgraw LPN - 07/23/2023 10:34 AM EST Images from the original note were not included. [facility] Remote Patient Monitoring Able to contact patient: Trigger type: Abnormal reading(s): AMC (Advanced Monitored Caregiving): Scale: Baseline weight: 293 +3/-10 lbs Trigger weight: 293.5 lbs; weight increased 4.4 lbs in 3 day(s) Trigger priority per AMC: high Patient takes diuretic medication: Yes, reviewed current diuretic use: Name of medication: Torsemide Dose: 40 am 20 mg pm Frequency: daily Symptom review: Edema: ABD SOB: increased Cough: started a couple days ago, reports he gets a cough with fluid retention Diet Reviewed: Yes. Patient has had any foods high in sodium: No Fluid Intake Reviewed: Yes. Patient is on a fluid restriction: Yes, restriction amount in milliliters or liters: 2 Adherent to restriction: Yes Self-Management Plan Reviewed: Red Flags: none listed DTP (Diuretic Titration Protocol): Describe DTP: Name of medication(s): Torsemide Dose: double dose Frequency: x3 days Used in past 2 weeks: Yes, 07/19 Risk assignment recommendation: Moderate risk findings (check [...] WITH symptoms Additional risk selection justification: [facility] trigger for weight gain of 4.4 lbs in 3 days Call to pt states he started DTP yesterday morning, double does of torsemide Pt had telemed visit yesterday with Uma Gage states Sam is aware of weight gain and DTP Pt reports his wt was up on Thursday he took one extra dose of torsemide in the afternoon and wt cameback down on Thursday Pt reports when his wt started to go back up he initiated his DTP started yesterday 07/22 but wt hasgone up instead of down Pt reports he has about 6-7 tablets of metolazone at home but does not take it unless directed to by [facility] Pt reports he is adhering to sodium and fluid restriction Repots increased SOB, +cough, +ABD distention, +slight BLE edema F/u call scheduled for tomorrow Will forward to care team for any further direction. Overall risk and identified plan: High risk: Next day follow up call scheduled Route to RNCM (Registered Nurse Concrete Form Setter And Finisher) and Advance Practitioner Route to RMC (Remote Medical Coordinator) documented in this encounter Plan of Treatment Upcoming Encounters Date Type Department Care Team (Late st Contact Info) Description 07/24/2023 1:30 PM EST Scheduled Telephone [facility], [address] [place] [address] Coordinator, [facility] [address] [place] [address] 07/28/2023 10:30 AM EST Nutrition Services [facility], [facility] [address] [place] [address] Mery Calderon RDN [address] [place] [address] 07/29/2023 1:30 PM EST Home Visit [facility], [facility] [address] [place] [address] Love Stevens, ANNE MARIE [address] [place] [address] 08/05/2023 9:30 AM EST Nurse Only Ancillary [address] [place] [address] [place], Nurse Annual [address] [place] [address] 08/06/2023 10:00 AM EST Office Visit Cardiology, [facility] [address] [place] [address] Evita Brennan CRNP [address] [place] [address] 08/21/2023 8:30 AM EST Home Visit [facility], [facility] [address] [place] [address] Love Stevens, RN 132 [place] [address] 09/16/2023 11:00 AM EDT Telemedicine Pharmacy, [address] [address] Pharmacist1, [facility] [address] [place] [address] 10/06/2023 2:10 PM EDT Office Visit Family Medicine [address] [place] [phone] Bárbara Rios [address] [place] [address] 10/27/2023 8:30 AM EDT Office Visit Sleep Disorders Ctr [facility] [place] [address] [place] [phone] Lindsey Sheikh CRNP [address] [place] [address] 02/29/2024 3:20 PM EDT Office Visit Nephrology [address] [place] [address] Shivani Magallon MD [address] [place] [address] Scheduled Procedures Name Priority Associated Diagnoses Date/Ti [...] this encounter Medical Devices Implanted Type Area Ornament Maker Hand Device Identifier Shelf Expiration Date Model / Serial / Lot Lens Intraoc 21.0 - [id number] - [id number] Implanted:Qty: 1 on 01/22/2017 by Cheko Mcnamara MD at OR [facility] Right: Eye BAUSCH [employer] LOMB 08/05/2021 [id number] / [id number] / [id number] Lens Intraoc 21.5 - [id number] - [id number] Implanted:Qty: 1 on 02/03/2017 by Cheko Mcnamara MD at [facility] Left: Eye BAUSCH & LOMB 09/02/2021 [id number] / [id number] / [id number] documented as of this encounter Advance Directives [...] and were consensually agreed upon. Care Teams Seal Delivery Vehicle Team Technician Relationship Specialty Start Date End Date Bárbara Rios DO [address] [place] [address] [place] [phone] PCP - General Internal Medicine 08/16/21 documented as of this encounter
--- OUTSIDE RECORDS SUMMARY | 2023-10-20 22:59 | External Medical Summary | Summary of Care ---
Author Name Unknown Organization [facility] Address [address] [facility] [place] [address] Phone [phone] Care Team Providers Care Photographic Process Worker Name Role Phone Bárbara Rios Primary Care Provider [phone] Reason for Visit * Reason Onset Date Comments [facility]: Maintenance 07/24/2023 Encounter Details Date Type Department Care Team (Late st Contact Info) Description 07/24/2023 1:30 PM EST Scheduled Telephone [facility], [facility] [address] [place] [address] Coordinator, [facility] [address] [place] [address] Allergies Active Allergy Reactions Criticality Noted Date [...] a week. 9 mL 3 04/09/2023 Active Jlwbv-0-abjo Ethyl Esters 1 GM Oral Capsule (Lovaza) [...] Active Evolocumab 140 MG/ML Subcutaneous Solution Auto-injector (Birds Eye Systemsatha MentiNovaClick)Indicatio ns:Dyslipidemia, goal LDL below 100,Mixed dyslipidemia Inject [...] in the Comments) Remote Patient Monitoring Vendor: [facility] Device(s): Connected Scale [...] yrs 01/04/2018,08/03/2017,07/03 Pneumococcal Conjugate Vacci ne, 20-valent ([id number]) 06/09/2022 Pneumococcal Polysaccharide PPV23 (Pneumovax) 03/06/2020 Seasonal [...] [facility] Telephonic Nurse Follow-Up Call [facility] Subprogram: Focused Care Management (3-9 [...] he will apply them now. Notified this lye bath operator will route to Provider to inquire about what dose of Torsemide the pt should take today and for the weekend. Disposition: Routed to [facility] and/or [facility] Care Team for further advice Future Visits Scheduled: Future Appointments-next 60 days Date/Time Provider Specialty Dept Phone 07/24/2023 1:30 PM Coordinator, [place] [facility] [phone] 07/28/2023 10:30 AM Mery Calderon RDN [facility] [phone] 07/29/2023 1:30 PM Love Stevens RN [facility] [phone] 08/05/2023 9:30 AM Nurse Os[facility] Ancillary [phone] 08/06/2023 10:00 AM (Arrive by 9:45 AM) Evita Brennan CRNP Cardiology [phone] 08/21/2023 8:30 AM Love Stevens RN [facility] [phone] 09/16/2023 11:00 AM Pharmacist1, [facility] [phone] 10/06/2023 2:10 PM (Arrive by 1:55 PM) Bárbara Rios DO Family Medicine [phone] 10/27/2023 8:30 AM (Arrive by 8:15 AM) Lindsey Sheikh CRNP Sleep Disorders [phone] 02/29/2024 3:20 PM (Arrive by 3:05 PM) Shivani Magallon MD Nephrology [phone] Parris Francis, RN documented in this encounter Plan of Treatment Upcoming Encounters Date Type Department Care Team (Late st Contact Info) Description 07/28/2023 10:30 AM EST Nutrition Services [facility], [facility] [address] [facility] [place] [address] Mery Calderon RDN [address] [facility] [place] [address] 07/29/2023 1:30 PM EST [facility] Visit [facility] [place], [facility] [address] [place] [address] Love Stevens RN 132 [facility] [place] [address] 08/05/2023 9:30 AM EST Nurse Only Ancillary [address] [place] [address] [place], Nurse [address] [place] [address] 08/06/2023 10:00 AM EST Office Visit Cardiology, [facility] [address] [place] [address] Evita Brennan CRNP [address] [place] [address] 08/21/2023 8:30 AM EST Home Visit [facility] [place], [facility] [address] [place] [address] Love Stevens, ANNE MARIE [address] [place] [address] 09/16/2023 11:00 AM EDT Telemedicine Pharmacy, Susan Palacios [place] [address] [place] [address] Pharmacist1, [facility] 200 [facility] [place] [address] 10/06/2023 2:10 PM EDT Office Visit Family Medicine [address] [place] [phone] Bárbara Rios[address] [place] [address] 10/27/2023 8:30 AM EDT Office Visit Sleep Disorders Ctr Maximiliano Vega [place] [address] [place] [phone] Lindsey Sheikh CRNP [address] [place] [address] 02/29/2024 3:20 PM EDT Office Visit Nephrology [address] [place] [address] Shivani Magallon MD [address] [facility] [place] [address] Scheduled Procedures Name Priority Associated Diagnoses Date/Ti [...] this encounter Medical Devices Implanted Type Area Drive Man Device Identifier Shelf Expiration Date Model / Serial / Lot Lens Intraoc 21.0 - [id number] - [id number] Implanted:Qty: 1 on 01/22/2017 by Cheko Mcnamara MD at OR [facility] Right: Eye BAUSCH & LOMB 08/05/2021 [id number] / [id number] / [id number] Lens Intraoc 21.5 - [id number] - [id number] Implanted:Qty: 1 on 02/03/2017 by Cheko Mcnamara MD at [facility] Left: Eye BAUSCH & LOMB 09/02/2021 [id number] / [id number] / [id number] documented as of this encounter Advance Directives [...] and were consensually agreed upon. Care Teams Photographic Process Worker Relationship Specialty Start Date End Date Bárbara Rios DO [address] [place] [address] [place] [phone] PCP - General Internal Medicine 08/16/21 documented as of this encounter
--- OUTSIDE RECORDS SUMMARY | 2023-10-20 22:59 | External Medical Summary | Summary of Care ---
Author Name Unknown Organization [facility] Address [address] [place] [facility] [place] [address] Phone [phone] Care Team Providers Care Missile Facilities Repairer Name Role Phone Bárbara Rios Primary Care Provider [phone] Reason for Visit * Reason Comments Medical Nutrition Therapy Encounter Details Date Type Department Care Team (Latest Contact Info) Description 07/28/2023 10:30 AM EST Nutrition Services [facility], [facility] [address] [facility] [place] [address] Mery Calderon, RDN [address] [facility] [place] [address] Hypertensive heart and kidney disease with chronic [...] a week. 9 mL 3 04/09/2023 Active Atoak-5-wkmv Ethyl Esters 1 GM Oral Capsule (Lovaza) [...] Evolocumab 140 MG/ML Subcutaneous Solution Auto-injector (Repatha LivestationClick)Indicatio ns:Dyslipidemia, goal LDL below 100,Mixed dyslipidemia Inject [...] in the Comments) Remote Patient Monitoring Vendor: Reissued Device(s): Connected Scale Self - Management Plan [...] yrs 01/04/2018,08/03/2017,07/03 Pneumococcal Conjugate Vacci ne, 20-valent ([id number]) 06/09/2022 Pneumococcal Polysaccharide PPV23 (Pneumovax) 03/06/2020 Seasonal [...] as of this encounter Progress Notes * Mery Calderon RDN - 07/27/2023 1:43 PM EST NUTRITION PROGRESS NOTE - [facility] TELEPH[facility] Patient Phone Numbers: Call placed to pt as follow-up from initial nutrition assessment from 06/24/23. Patient denies any issues related to diet [...] No Patient continues to live with significant other who will assist with care/food shopping/prepping/cooking of meals Testing BS continues 3-4x daily BS ranging 190's recently (discussed the importance of proper nutrition to better control BS) Followed closely by [facility] (next appt 09/16/23) Appetite and PO intake remain "too good" since last call No po difficulties reported this call SOB has subsided ("I can breathe good now") (provided encouragement) Reinforced the importance of staying active with bedside/chair exercises several times/week--(provided encouragement/info sent previously) Patient admits to not always restricting low sodium/low sugar diet foods/drinks (BLE edema noted) Reiterated the importance of avoiding these foods/healthy options provided/reiterated foods to avoid/consume Possible peritoneal dialysis discussed with Patient if indicated per MD No food insecurity reported this call Patient denies any issues related to changes in wt. Wt Readings from Last 3 Encounters: 06/19/23 (!) 138.3 kg (305 lb) 05/25/23 (!) 138.1 kg (304 lb 7.3 oz) 04/01/23 (!) 138.1 kg (304 lb 6.4 oz) Previous Nutrition Goals: 1) Consume 3 meals/day plus HS snack of nutritious, low sodium/low sugar foods with consistent carbohydrates (reinforced foods to consume/avoid/healthy options provided/sent info previously)--in progress 2) Consume more fruits/vegetables at HS snack vs cookies (discussed My Plate Method/seasonal fruitsand vegs suggested/info sent previously)--in progress 3) Encouraged to do bedside/chair exercises/2-3x per week/walks (info previously sent)--in progress-provided encouragement Reinforced nutrition goals. Encouraged continued progress towards goals Follow up as scheduled. Encouraged pt to contact [facility] at [phone] for any non-emergent changes/concerns. Mery Calderon MS, RDN, LDN Clinical Dietitian [facility] 07/27/2023 1:44 PM documented in this encounter Plan of Treatment Upcoming Encounters Date Type Department Care Team (Late st Contact Info) Description 07/29/2023 1:30 PM EST Home Visit [facility] [place], [address] [place] [address] Love Stevens, ANNE MARIE [address] [place] [address] 08/05/2023 9:30 AM EST Nurse Only Ancillary [address] [place] [address] [place], Nurse [address] [place] [address] 08/06/2023 10:00 AM EST Office Visit Cardiology, [facility] 132 [place] [address] Evita Brennan CRNP 132 [place] [address] 08/21/2023 8:30 AM EST Home Visit [facility], [facility] [address] [place] [address] Love Stevens, ANNE MARIE [address] [place] [address] 09/16/2023 11:00 AM EDT Telemedicine Pharmacy, [facility] [address] [place] [address] Pharmacist1, [facility] 200 [facility] [place] [address] 10/06/2023 2:10 PM EDT Office Visit Family Medicine [address] [place] [phone] [address]ár[address] R[address] [place] [address] 10/27/2023 8:30 AM EDT Office Visit [facility] [address] [place] [phone] Lindsey Sheikh CRNP [address] [place] [address] 02/29/2024 3:20 PM EDT Office Visit Nephrology [address] [place] [address] Shivani Magallon MD [address] [place] [address] Scheduled Procedures Name Priority Associated Diagnoses Date/Ti [...] this encounter Medical Devices Implanted Type Area Machinist Class B Device Identifier Shelf Expiration Date Model / Serial / Lot Lens Intraoc 21.0 - [id number] - [id number] Implanted:Qty: 1 on 01/22/2017 by Cheko Mcnamara MD at OR [facility] Right: Eye BAUSCH & LOMB 08/05/2021 [id number] / [id number] / [id number] Lens Intraoc 21.5 - [id number] - [id number] Implanted:Qty: 1 on 02/03/2017 by Cheko Mcnamara MD at OR [facility] Left: Eye BAUSCH & LOMB 09/02/2021 [id number] / [id number] / [id number] documented as of this encounter Visit Diagnoses [...] and were consensually agreed upon. Care Teams Missile Facilities Repairer Relationship Specialty Start Date End Date Bárbara Rios DO [address] [place] [address] [place] [address] PCP - General Internal Medicine 08/16/21 documented as of this encounter
--- OUTSIDE RECORDS SUMMARY | 2023-10-20 22:59 | External Medical Summary | Summary of Care ---
Author Name Unknown Organization [facility] Address [address] [facility] [place] [address] Phone [phone] Care Team Providers Care Cloth Wire Weaver Name Role Phone Bárbara Rios Primary Care Provider Reason for Visit * Reason Onset Date Comments [facility]: Maintenance 07/23/2023 Encounter Details Date Type Department Care Team (Late st Contact Info) Description 07/23/2023 Telephone [facility], [facility] [address] [facility] [place] [address] [facility], Nurse [facility] [address] [facility] [place] [address] [facility]: Maintenance Allergies Active Allergy [...] UNITS WITH DINNER PLUS CORRECTION PER [facility] OR DIRECTED UP TO 120 [...] a week. 9 mL 3 04/09/2023 Active Umawf-3-dkhz Ethyl Esters 1 GM Oral Capsule (Lovaza) [...] Active Evolocumab 140 MG/ML Subcutaneous Solution Auto-injector (GuardiCoreatha AdSparxick)Indicatio ns:Dyslipidemia, goal LDL below 100,Mixed dyslipidemia Inject [...] in the Comments) Remote Patient Monitoring Vendor: [facility] Device(s): Connected Scale Self [...] yrs 01/04/2018,08/03/2017,07/03 Pneumococcal Conjugate Vacci ne, 20-valent ([id number]) 06/09/2022 Pneumococcal Polysaccharide PPV23 (Pneumovax) 03/06/2020 Seasonal [...] Miscellaneous Notes * Telephone Encounter - Alexandra Mcgraw, MANAGER NON PROFIT - 07/23/2023 10:34 AM EST Images from [...] as applicable): [] Moderate trigger priority on [facility] [] Confirmed tympanic equivalent temperature 100.4-101.9 F [...] 90 WITH symptoms Additional risk selection justification: [facility] trigger for weight gain of 4.4 lbs [...] not take it unless directed to by [facility] Pt reports he is adhering to sodium and fluid restriction Repots increased SOB, +cough, +ABD distention, +slight BLE edema F/u call scheduled for tomorrow Will forward to care team for any further direction. Overall risk and identified plan: High risk: Next day follow up call scheduled Route to RNCM (Registered Nurse Senior Ui Software Engineer) and Advance Practitioner Route to RMC (Remote Medical Coordinator) documented in this encounter Plan of Treatment Upcoming Encounters Date Type Department Care Team (Late st Contact Info) Description 07/24/2023 1:30 PM EST Scheduled Telephone [facility], [facility] [address] [place] [address] Coordinator, [facility] [place] [address] [place] [address] 07/28/2023 10:30 AM EST Nutrition Services [facility], [facility] [address] [facility] [place] [address] Mery Calderon RDN [address] [facility] [place] [address] 07/29/2023 1:30 PM EST [facility] Visit [facility], [facility] [address] [place] [address] Love Stevens, RN [address] [place] [address] 08/05/2023 9:30 AM EST Nurse Only Ancillary [address] [place] [address] [place], Nurse [address] [place] [address] 08/06/2023 10:00 AM EST Office Visit Cardiology, [facility] [address] [place] [address] Evita Brennan CRNP [address] [place] [address] 08/21/2023 8:30 AM EST [facility] Visit [facility], [facility] [address] [place] [address] Love Stevens, RN [address] [place] [address] 09/16/2023 11:00 AM EDT Telemedicine Pharmacy, [facility] 200 [facility] [place] [address] Pharmacist1, [facility] 200 [facility] [address] 10/06/2023 2:10 PM EDT Office Visit Family Medicine [address] [place] [phone] Bárbara Rios[address] [place] [address] 10/27/2023 8:30 AM EDT Office Visit Sleep Disorders Ctr Maximiliano [facility] [place] [address] [place] [phone] Lindsey Sheikh CRNP [address] [place] [address] 02/29/2024 3:20 PM EDT Office Visit Nephrology [address] [place] [address] Shivani Magallon MD [address] [place] [address] Scheduled Procedures Name Priority Associated Diagnoses Date/Ti [...] this encounter Medical Devices Implanted Type Area Grinder Needle Tip Device Identifier Shelf Expiration Date Model / Serial / Lot Lens Intraoc 21.0 - [id number] - [id number] Implanted:Qty: 1 on 01/22/2017 by Cheko Mcnamara MD at OR [facility] Right: Eye BAUSCH & LOMB 08/05/2021 [id number] / [id number] / [id number] Lens Intraoc 21.5 - [id number] - [id number] Implanted:Qty: 1 on 02/03/2017 by Cheko Mcnamara MD at OR [facility] Left: Eye BAUSCH & LOMB 09/02/2021 [id number] / [id number] / [id number] documented as of this encounter Advance Directives [...] and were consensually agreed upon. Care Teams Cloth Wire Weaver Relationship Specialty Start Date End Date Bárbara Rios DO [address] [place] [address] [place] [phone] PCP - General Internal Medicine 08/16/21 documented as of this encounter
--- OUTSIDE RECORDS SUMMARY | 2023-10-20 22:59 | External Medical Summary | Summary of Care ---
Author Name Unknown Organization [facility] Address [address] [place] [facility] [place] [place] [address] Phone [phone] Care Team Providers Care Asset Recovery Specialist Name Role Phone Bárbara Rios Primary Care Provider [phone] Reason for Visit * Reason Comments Medical Nutrition Therapy Encounter Details Date Type Department Care Team (Latest Contact Info) Description 07/28/2023 10:30 AM EST Nutrition Services [facility], 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 9 mL 3 04/09/2023 Active Sbzjg-4-dgry Ethyl Esters 1 GM Oral Capsule (Lovaza) [...] Evolocumab 140 MG/ML Subcutaneous Solution Auto-injector (Repatha Aegis LightwaveClick)Indicatio ns:Dyslipidemia, goal LDL below 100,Mixed dyslipidemia Inject [...] as of this encounter (statuses as of 07/28/2023) Active Problems Problem Noted Date Diagnosed Date [...] in the Comments) Remote Patient Monitoring Vendor: Estrela [employer] Device(s): Connected Scale Self - Management Plan [...] as of this encounter (statuses as of 07/28/2023) Resolved Problems Problem Noted Date Diagnosed Date [...] as of this encounter (statuses as of 07/28/2023) Immunizations Name Administration Dates Next Due COVID-19 mRNA, LNP-s, No Pre serve, 2-Dose Series (Moderna) 12/10/2020,11/12/2020 Hepatitis B, 20+ yrs 01/04/2018,08/03/2017,07/03 Pneumococcal Conjugate Vacci ne, 20-valent (Lcdscfx20) 06/09/2022 Pneumococcal Polysaccharide PPV23 (Pneumovax) 03/06/2020 Seasonal [...] 1:43 PM EST NUTRITION PROGRESS NOTE - [facility] TELEPHONIC [facility] Patient Phone Numbers: Call placed to pt [...] Testing BS continues 3-4x daily BS ranging 190's-210's recently (discussed the importance of proper nutrition to better control BS) Followed closely by [facility] (next appt 09/16/23) Appetite and [...] pt to contact [facility] at [phone] for any non-emergent changes/concerns. Mery Calderon MS, RDN, LDN Clinical Dietitian [facility] 07/27/2023 1:44 PM documented in this encounter Plan of Treatment Upcoming Encounters Date Type Department Care Team (Late st Contact Info) Description 07/29/2023 1:30 PM EST Home Visit [facility] [place], [address] [place] [address] Love Stevens, RN [address] [place] [address] 08/05/2023 9:30 AM EST Nurse Only Ancillary [address] [place] [address] [place], Nurse [address] [place] [address] 08/06/2023 10:00 AM EST Office Visit Cardiology, [facility] 132 [facility] [place] [address] Evita Brennan CRNP [address] [place] [address] 08/11/2023 11:30 AM EST Scheduled Telephone [facility], [facility] [address] [facility] [place] [address] Mery Calderon, VIVIANAN [address] [facility] [address] 08/21/2023 8:30 AM EST Home Visit [facility], [facility] [address] [place] [address] Love Stevens, RN 132 [facility] [place] [address] 09/16/2023 11:00 AM EDT Telemedicine Pharmacy, [facility] [place] 200 [facility] [place] [address] Pharmacist1, [facility] 200 [facility] [place] [address] 10/06/2023 2:10 PM EDT Office Visit Family Medicine [address] [place] [address] Bárbara Rios[address] [place] [address] 10/27/2023 8:30 AM EDT [facility] [address] [place] [phone] Lindsey Sheikh CRNP [address] [place] [address] 02/29/2024 3:20 PM EDT Office Visit Nephrology [address] [place] [address] Shivani Magallon MD [address] [place] [address] Scheduled Procedures Name Priority Associated Diagnoses Date/Ti [...] this encounter Medical Devices Implanted Type Area Roadability Machine Operator Device Identifier Shelf Expiration Date Model / Serial / Lot Lens Intraoc 21.0 - [id number] - [id number] Implanted:Qty: 1 on 01/22/2017 by Cheko Mcnamara MD at OR [facility] Right: Eye BAUSCH & LOMB 08/05/2021 [id number] / [id number] / [id number] Lens Intraoc 21.5 - [id number] - [id number] Implanted:Qty: 1 on 02/03/2017 by Cheko Mcnamara MD at OR [facility] Left: Eye BAUSCH & LOMB 09/02/2021 [id number] / [id number] / [id number] documented as of this encounter Visit Diagnoses [...] and were consensually agreed upon. Care Teams Asset Recovery Specialist Relationship Specialty Start Date End Date Bárbara Rios DO [address] [place] [address] [place] [address] PCP - General Internal Medicine 08/16/21 documented as of this encounter
--- OUTSIDE RECORDS SUMMARY | 2023-10-20 22:59 | External Medical Summary | Summary of Care ---
Author Name Unknown Organization [facility] Address [address] [place] [facility] [place] [address] Phone [phone] Care Team Providers Care Crematory Attendant Name Role Phone Bárbara Rios Primary Care Provider Reason for Visit * Reason Onset Date Comments [facility]: Maintenance 07/23/2023 Encounter Details Date Type Department Care Team (Late st Contact Info) Description 07/23/2023 Telephone [facility], [facility] [address] [facility] [place] [address] [facility], Nurse [facility] [address] [place] [facility] [place] [address] [facility]: Maintenance Allergies Active Allergy [...] 32 UNITS WITH DINNER PLUS CORRECTION PER [facility] OR DIRECTED UP TO 120 [...] a week. 9 mL 3 04/09/2023 Active Ubrsx-6-jmlx Ethyl Esters 1 GM Oral Capsule (Lovaza) [...] Active Evolocumab 140 MG/ML Subcutaneous Solution Auto-injector (South49 Solutionsatha [place])Indicatio ns:Dyslipidemia, goal LDL below 100,Mixed dyslipidemia Inject [...] yrs 01/04/2018,08/03/2017,07/03 Pneumococcal Conjugate Vacci ne, 20-valent (Nfisoet03) 06/09/2022 Pneumococcal Polysaccharide PPV23 (Pneumovax) 03/06/2020 Seasonal [...] Notes * Telephone Encounter - Alexandra Mcgraw, FILLING AND STAPLING MACHINE OPERATOR - 07/23/2023 12:07 PM EST Call to pt made aware of message form Dr Sullivan Pt states no increase in urine noted Pt will start 40 mg Torsemide BID today F/u call tomorrow to assess weight and continued need of DTP * Telephone Encounter - Josh Sullivan MD [...] to contact patient: Trigger type: Abnormal reading(s): [facility] (Advanced Monitored Caregiving): Scale: Baseline weight: 293 [...] 90 WITH symptoms Additional risk selection justification: [facility] trigger for weight gain of 4.4 lbs [...] not take it unless directed to by [facility] Pt reports he is adhering to sodium and fluid restriction Repots increased SOB, +cough, +ABD distention, +slight BLE edema F/u call scheduled for tomorrow Will forward to care team for any further direction. Overall risk and identified plan: High risk: Next day follow up call scheduled Route to RNCM (Registered Nurse Foreign Legal Consultant) and Advance Practitioner Route to RMC (Remote Medical Coordinator) documented in this encounter Plan of Treatment Upcoming Encounters Date Type Department Care Team (Late st Contact Info) Description 07/24/2023 1:30 PM EST Scheduled Telephone [facility], [facility] [place] [address] Coordinator, [facility] [place] [address] 07/28/2023 10:30 AM EST Nutrition Services [facility], [facility] [address] [facility] [place] [address] Mery Calderon RDN [address] [facility] [place] [address] 07/29/2023 1:30 PM EST Home Visit [facility], [facility] [address] [place] [address] Love Stevens RN 132 [facility] [place] [address] 08/05/2023 9:30 AM EST Nurse Only Ancillary [address] [place] [address] [place], Nurse [address] [place] [address] 08/06/2023 10:00 AM EST Office Visit Cardiology, [facility] [address] [place] [address] Evita Brennan CRNP [address] [place] [address] 08/21/2023 8:30 AM EST Home Visit [facility], [facility] 132 [facility] [place] [address] Love Stevens, RN 132 [facility] [place] [address] 09/16/2023 11:00 AM EDT Telemedicine Pharmacy, [facility] 200 [facility] [place] [address] Pharmacist1, [facility] 200 [facility] [place] [address] 10/06/2023 2:10 PM EDT Office Visit Family Medicine [address] [place] [phone] Bárbara Rios[address] [place] [address] 10/27/2023 8:30 AM EDT Office Visit Sleep Disorders Ctr [facility] 132 [facility] [place] [phone] Lindsey Sheikh CRNP 132 [facility] [place] [address] 02/29/2024 3:20 PM EDT Office Visit Nephrology [address] [place] [address] Shivani Magallon MD 200 [facility] [place] [address] Scheduled Procedures Name Priority Associated Diagnoses Date/Ti [...] this encounter Medical Devices Implanted Type Area Access Director Device Identifier Shelf Expiration Date Model / Serial / Lot Lens Intraoc 21.0 - [id number] - [id number] Implanted:Qty: 1 on 01/22/2017 by Cheko Mcnamara MD at OR [facility] Right: Eye BAUSCH & LOMB 08/05/2021 [id number] / [id number] / [id number] Lens Intraoc 21.5 - [id number] - [id number] Implanted:Qty: 1 on 02/03/2017 by Cheko Mcnamara MD at OR [facility] Left: Eye BAUSCH & LOMB 09/02/2021 [id number] / [id number] / [id number] documented as of this encounter Advance Directives [...] and were consensually agreed upon. Care Teams Crematory Attendant Relationship Specialty Start Date End Date Bárbara Rios DO [address] [place] [address] [place] [phone] PCP - General Internal Medicine 08/16/21 documented as of this encounter
--- OUTSIDE RECORDS SUMMARY | 2023-10-20 22:59 | External Medical Summary | Summary of Care ---
Author Name Unknown Organization [facility] Address [address] [place] [facility] [place] [address] Phone [phone] Care Team Providers Care Funeral Workers Name Role Phone Bárbara Rios Primary Care Provider [phone] Reason for Visit * Reason Comments Medical Nutrition Therapy Encounter Details Date Type Department Care Team (Latest Contact Info) Description 07/28/2023 10:30 AM EST Nutrition Services [facility], [facility] [address] [facility] [place] [address] Mery Calderon, RDN 1000 [address] [facility] [place] [address] Hypertensive heart and kidney disease with chronic [...] a week. 9 mL 3 04/09/2023 Active Owdux-0-qhaw Ethyl Esters 1 GM Oral Capsule (Lovaza) [...] Evolocumab 140 MG/ML Subcutaneous Solution Auto-injector (Repatha MetriclyClick)Indicatio ns:Dyslipidemia, goal LDL below 100,Mixed dyslipidemia Inject [...] in the Comments) Remote Patient Monitoring Vendor: Gentronix Device(s): Connected Scale Self - Management Plan [...] yrs 01/04/2018,08/03/2017,07/03 Pneumococcal Conjugate Vacci ne, 20-valent (Xxsnxbf35) 06/09/2022 Pneumococcal Polysaccharide PPV23 (Pneumovax) 03/06/2020 Seasonal [...] 1:43 PM EST NUTRITION PROGRESS NOTE - [facility] TELEPHONIC [facility] Patient Phone Numbers: Call placed to [...] to better control BS) Followed closely by [facility] (next appt 09/16/23) Appetite and [...] pt to contact [facility] at [phone] for any non-emergent changes/concerns. Mery Calderon MS, RDN, LDN Clinical Dietitian [facility] 07/27/2023 1:44 PM documented in this encounter Plan of Treatment Upcoming Encounters Date Type Department Care Team (Late st Contact Info) Description 07/29/2023 1:30 PM EST Home Visit [facility] [place], [address] [place] [address] Love Stevens, ANNE MARIE [address] [place] [address] 08/05/2023 9:30 AM EST Nurse Only Ancillary [address] [place] [address] [place], Nurse [address] [place] [address] 08/06/2023 10:00 AM EST Office Visit Cardiology, [facility] 132 [place] [address] Evita Brennan CRNP 132 [place] [address] 08/21/2023 8:30 AM EST Home Visit [facility], [facility] 132 [place] [address] Love Stevens, ANNE MARIE [address] [place] [address] 09/16/2023 11:00 AM EDT Telemedicine Pharmacy, [facility] [address] [place] [address] Pharmacist1, [facility] 200 [facility] [place] [address] 10/06/2023 2:10 PM EDT Office Visit Family Medicine [address] [place] [address] Bárbara Rios[address] [place] [address] 10/27/2023 8:30 AM EDT Office Visit Sleep Disorders Ctr [facility] 132 [place] [phone] Lindsey Sheikh CRNP [address] [place] [address] 02/29/2024 3:20 PM EDT Office Visit Nephrology [address] [place] [address] Shivani Magallon MD [address] [place] [address] Scheduled Procedures Name Priority Associated Diagnoses Date/Ti [...] this encounter Medical Devices Implanted Type Area Residency Program Coordinator Device Identifier Shelf Expiration Date Model / Serial / Lot Lens Intraoc 21.0 - [id number] - [id number] Implanted:Qty: 1 on 01/22/2017 by Cheko Mcnamara MD at OR [facility] Right: Eye BAUSCH & LOMB 08/05/2021 [id number] / [id number] / [id number] Lens Intraoc 21.5 - [id number] - [id number] Implanted:Qty: 1 on 02/03/2017 by Cheko Mcnamara MD at OR [facility] Left: Eye BAUSCH & LOMB 09/02/2021 [id number] / [id number] / [id number] documented as of this encounter Visit Diagnoses [...] and were consensually agreed upon. Care Teams Funeral Workers Relationship Specialty Start Date End Date Bárbara Rios DO [address] [place] [address] [place] [address] PCP - General Internal Medicine 08/16/21 documented as of this encounter
--- OUTSIDE RECORDS SUMMARY | 2023-10-20 22:59 | External Medical Summary | Summary of Care ---
Author Name Unknown Organization [facility] Address [address] [facility] [place] [address] Phone [phone] Care Team Providers Care Putty Worker Name Role Phone Bárbara Rios Primary Care Provider [phone] Reason for Visit * Reason Onset Date Comments [facility]: Maintenance 07/26/2023 Encounter Details Date Type Department Care Team (Late st Contact Info) Description 07/26/2023 11:30 AM EST Scheduled Telephone [facility], [facility] 132 [facility] [place] [address] [facility], Nurse [facility] 132 [facility] [place] [address] Allergies Active Allergy Reactions Criticality Noted Date Comments Other Allergy (See Comments) Rash Low 10/13/2022 1+ cocamidopropyl betaine Sglt2 Inhibitors Other (Please comment) High 09/04/2020 Genital infection Sulfa Antibiotics Rash 10/15/2016 documented as of this encounter (statuses as of 07/26/2023) Medications Medication Sig Dispensed Refills Start Date [...] 32 UNITS WITH DINNER PLUS CORRECTION PER [facility] OR DIRECTED UP TO 120 UNITS [...] a week. 9 mL 3 04/09/2023 Active Bnnkx-4-urnb Ethyl Esters 1 GM Oral Capsule (Lovaza) [...] Evolocumab 140 MG/ML Subcutaneous Solution Auto-injector (Repatha Nanoscale ComponentsClick)Indicatio ns:Dyslipidemia, goal LDL below 100,Mixed dyslipidemia Inject [...] as of this encounter (statuses as of 07/26/2023) Active Problems Problem Noted Date Diagnosed Date [...] in the Comments) Remote Patient Monitoring Vendor: [employer] Device(s): Connected Scale Self - Management Plan [...] as of this encounter (statuses as of 07/26/2023) Resolved Problems Problem Noted Date Diagnosed Date [...] using freestyle Cindy. NEMESIO (acute kidney injury) 04/30/20223 Severe obesity with body mas s index [...] as of this encounter (statuses as of 07/26/2023) Immunizations Name Administration Dates Next Due COVID-19 mRNA, LNP-s, No Pre serve, 2-Dose Series (Moderna) 12/10/2020,11/12/2020 Hepatitis B, 20+ yrs 01/04/2018,08/03/2017,07/03 Pneumococcal Conjugate Vacci ne, 20-valent (Uxhgcgo54) 06/09/2022 Pneumococcal Polysaccharide PPV23 (Pneumovax) 03/06/2020 Seasonal [...] Telephone Encounter - Carolina Carey RN - 07/26/2023 10:24 AM EST Images from the original note were not included. [facility] Telephonic Nurse Follow-Up Call [facility] Subprogram: Focused Care Management (3-9 months) Follow Up Call Type: Weekend Call Acute issue requiring follow-up call: Remote Patient Monitoring Trigger Torsemide 40mg BID Objective: 07/22/2023 3:00 PM 06/26/2023 9:37 AM [...] "LEFT VENTRICULAR EJECTION FRACTION" Remote Patient Monitoring: [facility] Scale: Oxygen Needs: NO CHANGE from baseline supplemental oxygen needs DME Needs: NO DME needs identified Medications: Current DTP: Other: Torsemide 40mg BID Subjective: Condition Status: [facility] Current Concerns: Left message requesting return call Disposition: RNCM visit scheduled Future Visits Scheduled: Future Appointments-next 60 days Date/Time Provider Specialty Dept Phone 07/26/2023 11:30 AM Serina, Nurse Beni Prakash [facility] [phone] 07/28/2023 10:30 AM Meyr Calderon RDN [facility] [phone] 07/29/2023 1:30 PM Love Stevens RN [facility] [phone] 08/05/2023 9:30 AM Nurse [facility] Ancillary [phone] 08/06/2023 10:00 AM (Arrive by 9:45 AM) Evita Brennan CRNP Cardiology [phone] 08/21/2023 8:30 AM Love Stevens RN [facility] [phone] 09/16/2023 11:00 AM Pharmacist1, [facility] [phone] 10/06/2023 2:10 PM (Arrive by 1:55 PM) Bárbara Rios DO Family Medicine [phone] 10/27/2023 8:30 AM (Arrive by 8:15 AM) Lindsey Sheikh CRNP Sleep Disorders [phone] 02/29/2024 3:20 PM (Arrive by 3:05 PM) Shivani Magallon MD Nephrology [phone] Carolina Carey, RN documented in this encounter Plan of Treatment Upcoming Encounters Date Type Department Care Team (Late st Contact Info) Description 07/28/2023 10:30 AM EST Nutrition Services [facility], [facility] [address] [facility] [place] [address] Mery Calderon RDN 1000 [address] [facility] [place] [address] 07/29/2023 1:30 PM EST Home Visit [facility], [facility] 132 [place] [address] Love Stevens, ANNE MARIE [address] [place] [address] 08/05/2023 9:30 AM EST Nurse Only Ancillary [address] [place] [address] [place], Nurse [address] [place] [address] 08/06/2023 10:00 AM EST Office Visit Cardiology, [facility] 132 [place] [address] Evita Brennan CRNP 132 [place] [address] 08/21/2023 8:30 AM EST Home Visit [facility], [facility] 132 [place] [address] Love Stevens, ANNE MARIE 132 [place] [address] 09/16/2023 11:00 AM EDT Telemedicine Pharmacy, [facility] [address] [place] [address] Pharmacist1, [facility] [address] [place] [address] 10/06/2023 2:10 PM EDT Office Visit Family Medicine [address] [place] [phone] Bárbara Rios [address] [place] [address] 10/27/2023 8:30 AM EDT [facility] [address] [place] [phone] Lindsey Sheikh CRNP [address] [place] [address] 02/29/2024 3:20 PM EDT Office Visit Nephrology [address] [place] [address] Shivani Magallon MD [address] [place] [address] Scheduled Procedures Name Priority Associated Diagnoses Date/Ti [...] 05/29/2020, Additional history exists GFR 12/11/2023 06/11/2023, 1009/2022, 04/21/2023, Additional history exists HbA1c 12/11/2023 06/11/2023, [...] encounter Medical Devices Implanted Type Area Sales Representative Adding Machines Device Identifier Shelf Expiration Date Model / Serial / Lot Lens Intraoc 21.0 - [id number] - [id number] Implanted:Qty: 1 on 01/22/2017 by Cheko Mcnamara MD at OR [facility] Right: Eye BAUSCH & LOMB 08/05/2021 [id number] / [id number] / [id number] Lens Intraoc 21.5 - [id number] - [id number] Implanted:Qty: 1 on 02/03/2017 by Cheko Mcnamara MD at OR [facility] Left: Eye BAUSCH & LOMB 09/02/2021 [id number] / [id number] / [id number] documented as of this encounter Advance Directives [...] and were consensually agreed upon. Care Teams Putty Worker Relationship Specialty Start Date End Date Bárbara Rios DO [address] [place] [address] [place] [address] PCP - General Internal Medicine 08/16/21 documented as of this encounter
--- OUTSIDE RECORDS SUMMARY | 2023-10-20 23:00 | External Medical Summary | Summary of Care ---
Author Name Unknown Organization [facility] Address [address] [facility] [place] [address] Phone [phone] Care Team Providers Care Airport Driver Name Role Phone Bárbara Rios Primary Care Provider [phone] Reason for Visit * Reason Onset Date Comments [facility]: Maintenance 07/19/2023 Encounter Details Date Type Department Care Team (Late st Contact Info) Description 07/19/2023 Telephone [facility], [facility] [address] [facility] [place] [address] [facility], Nurse [facility] [address] [facility] [place] [address] [facility]: Maintenance Allergies Active Allergy Reactions Criticality Noted Date Comments Other Allergy (See Comments) Rash Low 10/13/2022 1+ cocamidopropyl betaine Sglt2 Inhibitors Other (Please comment) High 09/04/2020 Genital infection Sulfa Antibiotics Rash 10/15/2016 documented as of this encounter (statuses as of 07/19/2023) Medications Medication Sig Dispensed Refills Start Date [...] a week. 9 mL 3 04/09/2023 Active Vmmvz-7-oavc Ethyl Esters 1 GM Oral Capsule (Lovaza) [...] Evolocumab 140 MG/ML Subcutaneous Solution Auto-injector (Repatha ChorusClick)Indicatio ns:Dyslipidemia, goal LDL below 100,Mixed dyslipidemia Inject [...] as of this encounter (statuses as of 07/19/2023) Active Problems Problem Noted Date Diagnosed Date [...] Assessment & Plan: "RED FLAG" HF Symptoms: o Leg Swelling (Examples: "I can't wear certain socks or shoes", "My pants feel tight") o Abdominal Bloating (Examples: "I can't wear certain pants", "My belly feels hard", "I look ") o Increased dyspnea on exertion (Example: "I can't walk to the kitchen or up the stairs") o Increased shortness of breath at rest (Example: "I struggle to breathe even when watching TV") Medication Regimen: o Beta Ritchie Therapy: Carvedilol o ARIANNA Inhibitor/ARB Therapy: No ARIANNA/ARB/ARNI secondary to: Currently holding due to NEMESIO o Diuretic therapy: Torsemide Metolazone Self - Management Plan o Other/Additional Comments: Contact Nephrology (Dr. Magallon) for DTP recommendations because of current NEMESIO Exacerbation Plan o Other/Additional Comments: Contact Nephrology (Dr. Magallon) for recommendations due to current NEMESIO Additional Comments: o Appears euvolemic today. o Due to NEMESIO, will hold lisinopril and metolazone and continue torsemide 40 mg a.m. and 20 mg p.m.. o Has follow-up with Nephrology on Thursday. Repeat BMP will be done Thursday morning. Chronic kidney disease, stage 3b 03/17/2022 Overview: [...] as of this encounter (statuses as of 07/19/2023) Resolved Problems Problem Noted Date Diagnosed Date [...] as of this encounter (statuses as of 07/19/2023) Immunizations Name Administration Dates Next Due COVID-19 mRNA, LNP-s, No Pre serve, 2-Dose Series (Moderna) 12/10/2020,11/12/2020 Hepatitis B, 20+ yrs 01/04/2018,08/03/2017,07/03 Pneumococcal Conjugate Vacci ne, 20-valent ([id number]) 06/09/2022 Pneumococcal Polysaccharide PPV23 (Pneumovax) 03/06/2020 Seasonal [...] the money to buy more. Never true 01/28/20 23 Within the past 12 months, t he food you bought just didn't last and you didn't have money to get more. Never true 01/27/2023 Sex and Gender Information Value Date Recorded Sex Assigned at Male 12/06/2018 8:36 AM EDT Gender Identity Male 12/06/2018 8:36 AM EDT Sexual Orientation Straight 12/06/2018 8: 36 AM EDT Job Start Date Occupation Industry Not on file Not on file Not on file documented as of this encounter Miscellaneous Notes * Telephone Encounter - Carolina Carey RN - 07/19/2023 3:00 PM EST Images from the original note were not included. [facility] Remote Patient Monitoring Able to contact patient: Trigger type: Abnormal reading(s): AMC (Advanced Monitored Caregiving): Scale: Symptom review: Abdominal Fullness: carries weight in abdomen Diet Reviewed: Yes. Patient has had any foods high in sodium: No Fluid Intake Reviewed: Yes. Patient is on a fluid restriction: Yes, restriction amount in milliliters or liters: 2L Adherent to restriction: Yes Self-Management Plan Reviewed: Risk assignment recommendation: Moderate [...] symptoms Additional risk selection justification: Spoke with Tony, aware that his weight is up, started his DTP today and will see what weight is tomorrow, having slight SOB, no cough/congestion, no headache,no vertigo, following diet and fluid restrictions, will continue to monitor via AMC scale Overall risk and identified plan: Moderate risk: Route to RNCM (Registered Nurse Glassware Defect Repairer) and Advance Practitioner Initiate DTP (Diuretic Titration Protocol) if applicable BULMARO Muñoz Rock Breaker [facility] documented in this encounter Plan of Treatment Upcoming Encounters Date Type Department Care Team (Late st Contact Info) Description 07/22/2023 10:00 AM EST Nurse Only Ancillary [address] [place] [address] [place], Nurse [address] [place] [address] 07/22/2023 3:00 PM EST Telemedicine [facility] [place], [facility] [address] [facility] [place] [address] Sam Gage PA-C [facility] [place] [address] Griselda Chong Community Health Project Manager/Team Coach [address] [place] [address] [place] [address] 07/28/2023 10:30 AM EST Nutrition Services [facility], [facility] [address] [facility] [place] [address] Mery Calderon RDN [address] [facility] [place] [address] 07/29/2023 1:30 PM EST Home Visit [facility], [facility] [address] [place], [place] [address] Love Stevens RN [address] [place] [address] 08/06/2023 10:00 AM EST Office Visit Cardiology, [facility] [address] [place] [address] Evita Brennan CRNP [address] [place] [address] 08/21/2023 8:30 AM EST Home Visit [facility], [facility] [address] [place] [address] Love Stevens RN [address] [place] [address] 09/16/2023 11:00 AM EDT Telemedicine Pharmacy, [facility] [address] [facility] [place] [address] Pharmacist1, [facility] [address] [facility] [place] [address] 10/06/2023 2:10 PM EDT Office Visit Family Medicine [address] [place] [phone] Bárbara Rios[address] [place] [address] 10/27/2023 8:30 AM EDT Office Visit Sleep Disorders Ctr [facility] 132 [facility] [place] [phone] Lindsey Sheikh CRNP [address] [place] [address] 02/29/2024 3:20 PM EDT Office Visit Neph[address] [place] [address] Shivani Magallon MD [address] [facility] [place], [place] [address] Scheduled Procedures Name Priority Associated Diagnoses Date/Ti [...] 06/11/2024 023, 09/22/2022, 09/02/2022, Additional history exists O2 ASSESSMENT COMPLETED IN PAST YEAR FOR COPD 06/26/2024 06/26/2023 Diabetic Eye Exam 07/01/2024 07/01/2023, , 12/26/2021, Additional history exists Arreola's Esophagus Surveilance 06/16/2025 06/16/2022, 06/16/2022, 03/20/2022, [...] this encounter Medical Devices Implanted Type Area Special Assemblies Supervisor Device Identifier Shelf Expiration Date Model / Serial / Lot Lens Intraoc 21.0 - [id number] - [id number] Implanted:Qty: 1 on 01/22/2017 by Cheko Mcnamara MD at [facility] Right: Eye [employer] LOM[employer] 08/05/2021 [id number] / [id number] / [id number] Lens Intraoc 21.5 - [id number] - [id number] Implanted:Qty: 1 on 02/03/2017 by Cheko Mcnamara MD at OR [facility] Left: Eye [employer] LOMB 09/02/2021 [id number] / [id number] / [id number] documented as of this encounter Advance Directives [...] and were consensually agreed upon. Care Teams Airport Driver Relationship Specialty Start Date End Date Bárbara Rios DO [address] [place] [address] [place] [address] PCP - General Internal Medicine 08/16/21 documented as of this encounter
--- OUTSIDE RECORDS SUMMARY | 2023-10-20 23:00 | External Medical Summary | Summary of Care ---
Author Name Unknown Organization [facility] Address [address] [facility] [place] [address] Phone [phone] Care Team Providers Care Wiener Packer Name Role Phone Bárbara Rios Primary Care Provider Reason for Visit * Reason Comments Outpatient Testing Encounter Details Date Type Department Care Team (Late st Contact Info) Description 07/10/2023 11:10 AM EST Laboratory Laboratory [address] [place] [phone] [place] [address] Dyslipidemia, goal LDL below 100 Allergies Active Allergy Reactions Criticality Noted Date Comments Other Allergy (See Comments) Rash Low 10/13/2022 1+ cocamidopropyl betaine Sglt2 Inhibitors Other (Please comment) High 09/04/2020 Genital infection Sulfa Antibiotics Rash 10/15/2016 documented as of this encounter (statuses as of 07/10/2023) Medications Medication Sig Dispensed Refills Start Date [...] 32 UNITS WITH DINNER PLUS CORRECTION PER [facility] OR DIRECTED [...] a week. 9 mL 3 04/09/2023 Active Dprni-9-zkdx Ethyl Esters 1 GM Oral Capsule (Lovaza) Take 2 Capsules by mouth in the morning and 2 Capsules before bedtime. 360 Capsule 1 04/14/2023 Active Carvedilol 25 MG Oral Tablet (Coreg)Indications: HTN, goal below 140/90 TAKE ONE TABLET BY MOUTH EVERY MORNING AND TAKE ONE TABLET BY MOUTH BEFORE BEDTIME 200 Tablet 3 04/19/2023 4 Active Potassium Chloride Gaviota ER 10 MEQ Oral Tablet Extended ReleaseIndications: 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) Take 1 Tablet by mouth in the morning. 30 Tablet 5 04/24/2023 Active Omeprazole 20 MG Oral Capsule Delayed Release (PriLOSEC) TAKE 1 CAPSULE BY MOUTH IN THE MORNING AND 1 CAPSULE BEFORE BEDTIME 30 MINUTES BEFORE A MEAL 180 Capsule 1 04/28/2023 4 Active Evolocumab 140 MG/ML Subcutaneous Solution Auto-injector (Repatha SureClick)Indicatio ns:Dyslipidemia, goal LDL below 100,Mixed dyslipidemia Inject 140 mg under the skin every 14 days. 6 mL 3 06/19/2023 Active Hospital, Clinic, or Other Facility Administered [...] as of this encounter (statuses as of 07/10/2023) Active Problems Problem Noted Date Diagnosed Date [...] has been better controlled recently. Monitor using Exabloxstyle Cindy. Hypertensive heart and kidne y disease [...] as of this encounter (statuses as of 07/10/2023) Resolved Problems Problem Noted Date Diagnosed Date [...] as of this encounter (statuses as of 07/10/2023) Immunizations Name Administration Dates Next Due COVID-19 mRNA, LNP-s, No Pre serve, 2-Dose Series (Moderna) 12/10/2020,11/12/2020 Hepatitis B, 20+ yrs 01/04/2018,08/03/2017,07/03 Pneumococcal Conjugate Vacci ne, 20-valent ([id number]) 06/09/2022 Pneumococcal Polysaccharide PPV23 (Pneumovax) 03/06/2020 Seasonal [...] Care Team (Late st Contact Info) Description 07/14/2023 9:30 AM EST Telemedicine Cardiology [place] Desiree Christiansonwn [address] [place] [address] [facility] [address] [place] [address] 07/22/2023 10:00 AM EST Nurse Only Ancillary [address] [place] [address] [place], Nurse [address] [place] [address] 07/22/2023 3:00 PM EST Telemedicine [facility], [facility] [address] [place] [address] Sam Gage PA-C 132 [facility] [place] [address] Griselda Chong, Community Health Regulatory Consultant [address] [place] [address] [place] [address] 07/28/2023 10:30 AM EST Nutrition Services [facility], [facility] [address] [facility] [place] [address] Mery Calderon RDN [address] [facility] [place] [address] 07/29/2023 1:30 PM EST Home Visit [facility], [facility] [address] [place] [address] Love Stevens RN [address] [place] [address] 08/06/2023 10:00 AM EST Office Visit Cardiology, [facility] [place] [address] Evita Brennan CRNP [address] [place] [address] 08/21/2023 8:30 AM EST Home Visit [facility], [facility] [address] [place] [address] Love Stevens RN [address] [place] [address] 09/16/2023 11:00 AM EDT Telemedicine Pharmacy, [facility] 200 [facility] [place] [address] Pharmacist1, [facility] 200 [facility] [place] [address] 10/06/2023 2:10 PM EDT Office Visit Family Medicine [address] [place] [phone] Bárbara Rios[address] [place] [address] 10/27/2023 8:30 AM EDT Office Visit Sleep Disorders Ctr [facility] 132 [facility] [place] [phone] Lindsey Sheikh CRNP [address] [place] [address] 02/29/2024 3:20 PM EDT Office Visit Nephrology [address] [place] [address] Shivani Magallon MD 200 [place] [address] Pending Results Name Type Priority Associated Diagnoses Date /Time LIPID PANEL WITH DIRECT LDL IF TG IS HIGH Lab Routine Dyslipidemia, goal LDL below 100 07/10/2023 10:57 AM EST Scheduled Procedures Name Priority Associated Diagnoses [...] Td or Tdap) 12/29/2026 12/29/2016 Lipid Panel 04/01/2028 04/01/2023, 07/0 09/2022, 10/23/2022, Additional history exists Hepatitis B Completed 01/04/2018, [...] this encounter Medical Devices Implanted Type Area Strawhat Blocking Operator Device Identifier Shelf Expiration Date Model / Serial / Lot Lens Intraoc 21.0 - [id number] - [id number] Implanted:Qty: 1 on 01/22/2017 by Cheko Mcnamara MD at OR [facility] Right: Eye [employer] LOMB 08/05/2021 [id number] / [id number] / [id number] Lens Intraoc 21.5 - [id number] - [id number] Implanted:Qty: 1 on 02/03/2017 by Cheko Mcnamara MD at OR [facility] Left: Eye BAUSCH [employer] LOMB 09/02/2021 [id number] / [id number] / [id number] documented as of this encounter Visit Diagnoses Diagnosis Dyslipidemia, goal LDL below 100 Other and unspecified hyperlipidemia documented in this encounter Advance Directives [...] and were consensually agreed upon. Care Teams Wiener Packer Relationship Specialty Start Date End Date Bárbara Rios DO [address] [place] [address] [place] [phone] PCP - General Internal Medicine 08/16/21 documented as of this encounter
--- OUTSIDE RECORDS SUMMARY | 2023-10-20 23:00 | External Medical Summary | Summary of Care ---
Author Name Unknown Organization [facility] Address [address] [place] [facility] [place] [address] Phone [phone] Care Team Providers Care Cooky Packer Name Role Phone Bárbara Rios Primary Care Provider [phone] Encounter Details Date Type Department Care Team ([facility] st Contact Info) Description 07/16/2023 Specialty Pharmacy [facility], [address] [address] Medication, [facility], [address] [address] Allergies Active Allergy Reactions Criticality Noted Date Comments Other Allergy (See Comments) Rash Low 10/13/2022 1+ cocamidopropyl betaine Sglt2 Inhibitors Other (Please comment) High 09/04/2020 Genital infection Sulfa Antibiotics Rash 10/15/2016 documented as of this encounter (statuses as of 07/16/2023) Medications Medication Sig Dispensed Refills Start Date [...] 32 UNITS WITH DINNER PLUS CORRECTION PER [facility] OR DIRECTED UP TO 120 [...] a week. 9 mL 3 04/09/2023 Active Vkxuq-0-evar Ethyl Esters 1 GM Oral Capsule (Lovaza) [...] as of this encounter (statuses as of 07/16/2023) Active Problems Problem Noted Date Diagnosed Date [...] has been better controlled recently. Monitor using SemEquip Cindy. Hypertensive heart and kidne y disease [...] as of this encounter (statuses as of 07/16/2023) Resolved Problems Problem Noted Date Diagnosed Date [...] as of this encounter (statuses as of 07/16/2023) Immunizations Name Administration Dates Next Due COVID-19 mRNA, LNP-s, No Pre serve, 2-Dose Series (Moderna) 12/10/2020,11/12/2020 Hepatitis B, 20+ yrs 01/04/2018,08/03/2017,07/03 Pneumococcal Conjugate Vacci ne, 20-valent ([id number]) 06/09/2022 Pneumococcal Polysaccharide PPV23 (Pneumovax) 03/06/2020 Seasonal [...] as of this encounter Progress Notes * Chelly Pickett PHARM Tech - 07/16/2023 12:40 PM EST Prescribed medication: Medication: repatha Shipment date: 07/21 Delivery method: Specialty Mail Location Medication Delivered too? Prescription Address: [address] [place] [address] Dr Pal LORENZO [address] KARINA Dash [facility] 07/16/2023,12:40 PM documented in this encounter Plan of Treatment Upcoming Encounters Date Type Department Care Team (Late st Contact Info) Description 07/22/2023 10:00 AM EST Nurse Only Ancillary [address] [place] [address] [place], Nurse [address] [place] [address] 07/22/2023 3:00 PM EST Telemedicine [facility], [facility] 132 [facility] [place] [address] Sam Gage PA-C 132 [facility] [place] [address] Griselda Chong [employer] Agriculture Teacher [address] [place] [address] [place] [address] 07/28/2023 10:30 AM EST Nutrition Services [facility], [facility] [address] [facility] [place] [address] Mery Calderon RDN 1000 [address] [facility] [place] [address] 07/29/2023 1:30 PM EST Home Visit [facility], [facility] [address] [place] [address] Love Stevens, ANNE MARIE [address] [place] [address] 08/06/2023 10:00 AM EST Office Visit Cardiology, [facility] [address] [place] [address] Evita Brennan CRNP [address] [place] [address] 08/21/2023 8:30 AM EST Home Visit [facility], [facility] [address] [place] [address] Love Stevens RN [address] [place] [address] 09/16/2023 11:00 AM EDT Telemedicine Pharmacy, [facility] 200 [facility] [address] Pharmacist[address], [facility] 200 [facility] [place] [address] 10/06/2023 2:10 PM EDT Office Visit Family Medicine [address] [phone] Bárbara Rios[address] [place] [address] 10/27/2023 8:30 AM EDT Office Visit Sleep Disorders Ctr [facility] 132 [facility] [place] [phone] Lindsey Sheikh CRNP [address] [place] [address] 02/29/2024 3:20 PM EDT Office Visit Nephrology [address] [place] [address] Shivani Magallon MD 200 [facility], [place] [address] Scheduled Procedures Name Priority Associated Diagnoses Date/Ti [...] this encounter Medical Devices Implanted Type Area Audio Visual Project Manager Device Identifier Shelf Expiration Date Model / Serial / Lot Lens Intraoc 21.0 - [id number] - [id number] Implanted:Qty: 1 on 01/22/2017 by Cheko Mcnamara MD at OR [facility] Right: Eye [employer]OMB 08/05/2021 [id number] / [id number] / [id number] Lens Intraoc 21.5 - [id number] - [id number] Implanted:Qty: 1 on 02/03/2017 by Cheko Mcnamara MD at OR [facility] Left: Eye BAUSCH & LOMB 09/02/2021 [id number] / [id number] / [id number] documented as of this encounter Advance Directives [...] and were consensually agreed upon. Care Teams Cooky Packer Relationship Specialty Start Date End Date Bárbara Rios DO [address] [place] [address] [place] [address] PCP - General Internal Medicine 08/16/21 documented as of this encounter
--- OUTSIDE RECORDS SUMMARY | 2023-10-20 23:00 | External Medical Summary | Summary of Care ---
Author Name Unknown Organization [facility] Address [address] [facility] [place] [place] [address] Phone [phone] Care Team Providers Care Warrant Server Name Role Phone Bárbara Rios Primary Care Provider [phone] Encounter Details Date Type Department Care Team (Late st Contact Info) Description 07/07/2023 Orders Only Cardiology [place] Heather Christianson [address] [facility] [place] [phone] [facility] 21 [facility] [place] [address] Dyslipidemia, goal LDL below 100* Allergies Active Allergy Reactions Criticality Noted Date Comments Other Allergy (See Comments) Rash Low 10/13/2022 1+ cocamidopropyl betaine Sglt2 Inhibitors Other (Please comment) High 09/04/2020 Genital infection Sulfa Antibiotics Rash 10/15/2016 documented as of this encounter (statuses as of 07/07/2023) Medications Medication Sig Dispensed Refills Start Date [...] E11.9, Indications: diabetes, Reported on 07/14/2022 FreeStyle Cnidy 2 SensorIndications:T ype 2 diabetes mellitus with [...] 32 UNITS WITH DINNER PLUS CORRECTION PER [facility] OR DIRECTED UP TO 120 [...] a week. 9 mL 3 04/09/2023 Active Phalx-8-udbm Ethyl Esters 1 GM Oral Capsule (Lovaza) [...] as of this encounter (statuses as of 07/07/2023) Active Problems Problem Noted Date Diagnosed Date [...] as of this encounter (statuses as of 07/07/2023) Resolved Problems Problem Noted Date Diagnosed Date [...] as of this encounter (statuses as of 07/07/2023) Immunizations Name Administration Dates Next Due COVID-19 mRNA, LNP-s, No Pre serve, 2-Dose Series (Moderna) 12/10/2020,11/12/2020 Hepatitis B, 20+ yrs 01/04/2018,08/03/2017,07/03 Pneumococcal Conjugate Vacci ne, 20-valent ([id number]) 06/09/2022 Pneumococcal Polysaccharide PPV23 (Pneumovax) 03/06/2020 Seasonal [...] as of this encounter Progress Notes * Kaylynn Rapp RPh - 07/07/2023 11:20 AM EST Lipid panel ordered Myg sent to patient documented in this encounter Plan of Treatment Upcoming Encounters Date Type Department Care Team (Late st Contact Info) Description 07/08/2023 11:00 AM EST Telemedicine Pharmacy, [facility] [place] [address] Pharmacist1, [facility] 200 [facility] [place] [address] 07/14/2023 9:30 AM EST Telemedicine Cardiology [facility] [address] [facility] [place] [address] [facility] Cardiology [address] [facility] [place] [address] 07/22/2023 10:00 AM EST Nurse Only Ancillary [address] [place] [address] [place], Nurse [address] [place] [address] 07/22/2023 3:00 PM EST Telemedicine [facility], [facility] 132 [place] [address] Sam Gage PA-C [address] [place] [address] Griselda Chong, Community Health Brand Inspector [address] [address] [place] [address] 07/28/2023 10:30 AM EST Nutrition Services [facility], [facility] [address] [facility] [place] [address] Mery Calderon, RDN [address] [facility] [place] [address] 07/29/2023 1:30 PM EST Home Visit [facility], [facility] [address] [place] [address] Love Stevens, RN [address] [place] [address] 08/06/2023 10:00 AM EST Office Visit Cardiology, [facility] [address] [place] [address] Evita Brennan CRNP [address] [place] [address] 08/21/2023 8:30 AM EST Home Visit [facility], [facility] 132 [place] [address] Love Stevens, ANNE MARIE [address] [place] [address] 10/06/2023 2:10 PM EDT Office Visit Family Medicine [address] [place] [phone] Bárbara Rios [address] [place] [address] 10/27/2023 8:30 AM EDT Office Visit Sleep Disorders [facility] [address] [place] [phone] Lindsey Sheikh CRNP [address] [place] [address] 02/29/2024 3:20 PM EDT Office Visit Nephrology [address] [place] [address] Shivani Magallon MD [address] [place] [address] Scheduled Orders Name Type Priority Associated Diagnoses Orde r Schedule LIPID PANEL WITH DIRECT LDL IF TG IS HIGH Lab Routine Dyslipidemia, goal LDL below 100 Expected: 07/08/2023, Expires: 07/07/2024 Scheduled Procedures Name Priority Associated Diagnoses Date/Ti [...] this encounter Medical Devices Implanted Type Area Salesperson Corsets Device Identifier Shelf Expiration Date Model / Serial / Lot Lens Intraoc 21.0 - [id number] - [id number] Implanted:Qty: 1 on 01/22/2017 by Cheko Mcnamara MD at OR [facility] Right: Eye [employer] 08/05/2021 [id number] / [id number] / [id number] Lens Intraoc 21.5 - [id number] - [id number] Implanted:Qty: 1 on 02/03/2017 by Cheko Mcnamara MD at OR [facility] Left: Eye [employer]OMB 09/02/2021 [id number] / [id number] / [id number] documented as of this encounter Visit Diagnoses Diagnosis Dyslipidemia, goal LDL below 100- Primary Other and unspecified hyperlipidemia documented in this [...] and were consensually agreed upon. Care Teams Warrant Server Relationship Specialty Start Date End Date Bárbara Rios DO [address] [address] [place] [address] PCP - General Internal Medicine 08/16/21 documented as of this encounter
--- OUTSIDE RECORDS SUMMARY | 2023-10-20 23:00 | External Medical Summary | Summary of Care ---
Author Name Unknown Organization [facility] Address [address] [facility] [address] Phone [phone] Care Team Providers Care Metal Mockup Maker Name Role Phone Bárbara Rios Primary Care Provider [phone] Reason for Visit * Reason Onset Date Comments Medication Question 07/13/2023 Reroute Encounter Details Date Type Department Care Team (Late st Contact Info) Description 07/13/2023 Telephone Nephrology, Susan Palacios [address] [facility] [place] [address] Shivani Magallon MD [address] [facility] [place] [address] Medication Question (Reroute/) Allergies Active Allergy Reactions Criticality Noted Date Comments Other Allergy (See Comments) Rash Low 10/13/2022 1+ cocamidopropyl betaine Sglt2 Inhibitors Other (Please comment) High 09/04/2020 Genital infection Sulfa Antibiotics Rash 10/15/2016 documented as of this encounter (statuses as of 07/13/2023) Medications Medication Sig Dispensed Refills Start Date [...] 32 UNITS WITH DINNER PLUS CORRECTION PER [facility] OR DIRECTED UP TO 120 [...] a week. 9 mL 3 04/09/2023 Active Dwwcz-7-bgvs Ethyl Esters 1 GM Oral Capsule (Lovaza) [...] as of this encounter (statuses as of 07/13/2023) Active Problems Problem Noted Date Diagnosed Date [...] as of this encounter (statuses as of 07/13/2023) Resolved Problems Problem Noted Date Diagnosed Date [...] as of this encounter (statuses as of 07/13/2023) Immunizations Name Administration Dates Next Due COVID-19 mRNA, LNP-s, No Pre serve, 2-Dose Series (Moderna) 12/10/2020,11/12/2020 Hepatitis B, 20+ yrs 01/04/2018,08/03/2017,07/03 Pneumococcal Conjugate Vacci ne, 20-valent ([id number]) 06/09/2022 Pneumococcal Polysaccharide PPV23 (Pneumovax) 03/06/2020 Seasonal [...] encounter Miscellaneous Notes * Telephone Encounter - Meghan Ro CPhT - 07/13/2023 11:14 AM EST error documented in this encounter Plan of Treatment Upcoming Encounters Date Type Department Care Team (Late st Contact Info) Description 07/14/2023 9:30 AM EST Telemedicine Cardiology [place] [address] [place] [address] [place] [address] Heather [facility] Cardiology [address] [place] [address] [place] [address] 07/22/2023 10:00 AM EST Nurse Only Ancillary [address] [place] [address] [place], Nurse [address] [place] [address] 07/22/2023 3:00 PM EST Telemedicine [facility], [facility] 132 [facility] [place] [address] Sam Gage PA-C [address] [place] [address] Griselda Chong, Community Health Bench Shear Operator [address] [place] [address] [place] [address] 07/28/2023 10:30 AM EST Nutrition Services [facility], [facility] [address] [facility] [place] [address] Mery Calderon, RDN [address] [facility] [place] [address] 07/29/2023 1:30 PM EST Home Visit [facility], [facility] [address] [place] [address] Love Stevens, RN [address] [place] [address] 08/06/2023 10:00 AM EST Office Visit Cardiology, [facility] [address] [place] [address] Evita Brennan CRNP [address] [place] [address] 08/21/2023 8:30 AM EST Home Visit [facility], [facility] [address] [place] [address] Love Stevens, ANNE MARIE 132 [facility] [place] [address] 09/16/2023 11:00 AM EDT Telemedicine Pharmacy, [facility] [address] [facility] [place] [address] Pharmacist1, [facility] 200 [facility] [place] [address] 10/06/2023 2:10 PM EDT Office Visit Family Medicine [address] [phone] Bárbara Rios [address] [place] [address] 10/27/2023 8:30 AM EDT Office Visit Sleep Disorders [facility] 132 [facility] [place] [phone] Lindsey Sheikh CRNP [address] [place] [address] 02/29/2024 3:20 PM EDT Office Visit Nephrology [address] [place] [address] Shivani Magallon MD [address] [place] [address] Scheduled Procedures Name Priority Associated Diagnoses Date/Ti [...] this encounter Medical Devices Implanted Type Area Correspondence Coordinator Device Identifier Shelf Expiration Date Model / Serial / Lot Lens Intraoc 21.0 - [id number] - [id number] Implanted:Qty: 1 on 01/22/2017 by Cheko Mcnamara MD at OR [facility] Right: Eye [employer]OM[employer] 08/05/2021 [id number] / [id number] / [id number] Lens Intraoc 21.5 - [id number] - [id number] Implanted:Qty: 1 on 02/03/2017 by Cheko Mcnamara MD at OR [facility] Left: Eye BAUSCH [employer] LOMB 09/02/2021 [id number] / [id number] / [id number] documented as of this encounter Advance Directives [...] and were consensually agreed upon. Care Teams Metal Mockup Maker Relationship Specialty Start Date End Date Bárbara Rios DO [address] [place] [address] [place] [phone] PCP - General Internal Medicine 08/16/21 documented as of this encounter
--- OUTSIDE RECORDS SUMMARY | 2023-10-20 23:00 | External Medical Summary ---
Author Name Unknown Address Unknown Organization K01:LABORATORY [facility] - [address] [place] [place] [address] Laboratory Report Ordering Provider Test Date Status [place] 07/10/2023 10:57:49 Final Observation Date Value Abnormality Reference (Units ) Status Triglyceride 07/10/2023 10:57:49 274 Above high normal <=174 (mg/dL) Final Triglyceride Reference Range s (mg/dL):
<150 Acceptable
150-174 Borderline high
175-499 High
>=500 Very high Cholesterol 07/10/2023 10:57:49 175 <200 (mg /dL) Final Total Cholesterol Reference Ranges (mg/dL):
<200 Desirable
200-239 Borderline high
>=240 High HDL 07/10/2023 10:57:49 26 Below low normal >39 (mg/dL) Final HDL Cholesterol Reference Ra nges (mg/dL):
>=60 High (Desirable)
<50 Low (Undesirable) For Females
<40 Low (Undesirable) For Males NON-HDL CHOLESTEROL 07/10/2023 10:57:49 149 <=159 (mg/dL) Final Non-HDL Cholesterol Referenc e Range (mg/dL):
<100 Target level for high risk ASCVD patient
<130 Optimal for general population
130-159 Near optimal for general population
160-189 Borderline High
190-219 High
>=220 Very High Performing Location LABORATORY [facility] - [address] [place] [address]
--- OUTSIDE RECORDS SUMMARY | 2023-10-20 23:00 | External Medical Summary | Summary of Care ---
Author Name Unknown Organization [facility] Address [address] [facility] [address] Phone [phone] Care Team Providers Care Solutions Development Analyst Name Role Phone Bárbara Rios Primary Care Provider [phone] Reason for Visit * Reason Comments Dosage Adjustment Via Phone (anticoag Cl inic) Hyperlipidemia Encounter Details Date Type Department Care Team (Late st Contact Info) Description 07/14/2023 9:[address] [facility] Telemedicine Cardiology [place] Desiree Christiansonwn 400 [facility] [place] [address] [facility] 400 [facility] [place] [address] Dyslipidemia, goal LDL below 100* Allergies Active Allergy Reactions Criticality Noted Date Comments Other Allergy (See Comments) Rash Low 10/13/2022 1+ cocamidopropyl betaine Sglt2 Inhibitors Other (Please comment) High 09/04/2020 Genital infection Sulfa Antibiotics Rash 10/15/2016 documented as of this encounter (statuses as of 07/14/2023) Medications Medication Sig Dispensed Refills Start Date [...] UNITS WITH DINNER PLUS CORRECTION PER [facility] OR DIRECTED UP TO 120 UNITS [...] a week. 9 mL 3 04/09/2023 Active Defhz-3-ctlu Ethyl Esters 1 GM Oral Capsule (Lovaza) [...] Evolocumab 140 MG/ML Subcutaneous Solution Auto-injector (Repatha [employer])Indicatio ns:Dyslipidemia, goal LDL below 100,Mixed dyslipidemia Inject [...] as of this encounter (statuses as of 07/14/2023) Active Problems Problem Noted Date Diagnosed Date [...] as of this encounter (statuses as of 07/14/2023) Resolved Problems Problem Noted Date Diagnosed Date [...] as of this encounter (statuses as of 07/14/2023) Immunizations Name Administration Dates Next Due COVID-19 mRNA, LNP-s, No Pre serve, 2-Dose Series (Moderna) 12/10/2020,11/12/2020 Hepatitis B, 20+ yrs 01/04/2018,08/03/2017,07/03 Pneumococcal Conjugate Vacci ne, 20-valent ([id number]) 06/09/2022 Pneumococcal Polysaccharide PPV23 (Pneumovax) 03/06/2020 Seasonal [...] of this encounter Progress Notes * Kaylynn Rapp, [facility] - 07/14/2023 9:29 AM EST PHARMACY CHRONIC DISEASE MANAGEMENT - HYPERLIPIDEMIA After connecting to the patient via telephone, the patient was identified by name and date of . Patient was then informed that this was a telephone call only visit. The patient agreed to participate. Visit Disposition: Routine follow-up Total call duration was 6 minutes. HPI: Tony Delong is a 63 year old year old male. Referred for HLD management by Evita Abel Diet review: not reviewed Exercise review: not exercising Patient Active Problem List Diagnosis Code Type [...] chronic kidney disease (HCC) I13.0, I50.32, N18.4 Type 2 diabetes mellitus with stage 3b chronic kidney disease, with long-term current use of insulin ([facility]) E11.22, N18.32, Z79.4 Sacroiliitis ([facility]) M46.1 Chronic heart failure with preserved ejection fraction ([facility]) I50.32 Chronic obstructive pulmonary disease ([facility]) J44.9 Review of patient's allergies indicates: Allergen Reactions Sglt2 Inhibitors Other (Please comment) Genital infection Sulfa Antibiotics Rash Other Allergy (See Comments) Rash 1+ cocamidopropyl betaine Objective: Lab Results Component Value Date/Time LDL (CALCULATED)-OUTSIDE LAB 110 (A) 12/21/2017 12:00 AM LDL (CALCULATED)-OUTSIDE LAB 106 12/11/2016 12:00 AM LDL CHOLESTEROL (CALCULATED) - [facility] 152 (H) 01/05/2023 08:27 AM LDL CHOLESTEROL (CALCULATED) - [facility] 109 10/23/2022 09:12 AM LDL CHOLESTEROL (CALCULATED) - [facility] 135 (H) 07/23/2022 08:33 AM LDL CHOLESTEROL (DIRECT MEASURE) - [facility] 89 07/10/2023 10:57 AM LDL CHOLESTEROL (DIRECT MEASURE) - [facility] 76 04/01/2023 03:31 PM LDL CHOLESTEROL (DIRECT MEASURE) - [facility] 264 (H) 01/25/2021 11:58 AM Lab Results Component Value Date/Time AST - [facility] 54 (H) 11/19/2022 03:32 PM AST - [facility] 49 04/18/2022 10:44 AM AST - [facility] 64 (H) 03/05/2022 03:28 PM Lab Results Component Value Date/Time ALT - [facility] 45 11/19/2022 03:32 PM ALT - [facility] 52 (H) 04/18/2022 10:44 AM ALT - [facility] 77 (H) 03/05/2022 03:28 PM ALT-OUTSIDE LAB 226 (A) 01/09/2020 12:00 AM ALT-OUTSIDE LAB 250 (A) 05/12/2019 12:00 AM ALT-OUTSIDE LAB 82 (A) 12/01/2018 12:00 AM No results found for: "CK" Lab Results Component Value Date/Time 25-HYDROXY VITAMIN D - [facility] 37 09/02/2022 12:37 PM Lab Results Component Value Date/Time TSH - [facility] 2.21 04/18/2022 10:44 AM TSH - OUTSIDE LAB 2.89 10/05/2018 12:00 AM No results found for: "T4" Lab Results Component Value Date/Time MICROALBUMIN RATIO-OUTSIDE LAB 1,457 (H) 01/09/2020 12:00 AM MICROALBUMIN RATIO-OUTSIDE LAB 21.1 12/11/2016 12:00 AM Current Cardiac Medication(s): Coreg 25 mg BID Lisinopril 20 mg daily-take 10 mg daily Hydralazine 25 mg TID Repatha 140 mg SQ every 2 weeks-started 03/22/21 (obtaining thorough [employer] through 12/2023) Lovaza 2 mg BID- started 04/14/23 Aspirin 81 mg daily Metolazone 2.5 mg twice weekly (Thu, ) Torsemide 40 mg in AM in 20 in PM Current Diabetes Medications Xultophy 50 units daily-started 07/12/20 Tresiba 32 units daily--decreased 07/12/20; pt reports taking 140 units Novolog 25 units with breakfast/lunch and 33 units with dinner + CF 1:20 over 150 -adjusted 07/12/20;pt taking 30-35 units before meals (3 times daily) 07/12/20 Ozempic 1 mg weekly---stopped 07/12/20; awaiting pt assistance renewal Assessment & Plan: 1. Controlled Hyperlipidemia -Goal LDL <100 -Elevated LFTs, would not start statin or zetia (see note 03/22 for details) -Continue current medications Reviewed lipid panel, LDL remains at goal. TG trending down. Pt tolerating Lovaza and is complaint.Will continue current medications. There is an issue with Elmo skelton, working to fix it. See TE 2. Uncontrolled Type 2 Diabetes -Goal HbA1c <7% -Metformin stopped due to renal function -Managed by MT Susan Palacios 3. HFpEF -Continue current medications 4. Uncontrolled Hypertension -Goal BP <140/90 -CKD playing a role -Hx of [place], being treated with CPAP -[facility] Medication changes: none Labs Due: Lipid panel 07/10/24--remind me sent Follow up:none; MT will sign off Kaylynn Rapp RPh Clinical Pharmacist 9:31 AM, 07/14/23 documented in this encounter Plan of Treatment Upcoming Encounters Date Type Department Care Team (Late st Contact Info) Description 07/22/2023 10:00 AM EST Nurse Only Ancillary [place] [place] [address] [place], Nurse [address] [place] [address] 07/22/2023 3:00 PM EST Telemedicine [facility], [facility] 132 [place] [address] Sam Gage PA-C 132 [place] [address] Griselda Chong, Community Health [address] [place] [address] 07/28/2023 10:30 AM EST Nutrition Services [facility], [facility] [address] [facility] [place] [address] Mery Calderon RDN [address] [facility] [place] [address] 07/29/2023 1:30 PM EST Home Visit [facility], [facility] 132 [place] [address] Love Stevens, ANNE MARIE [address] [place] [address] 08/06/2023 10:00 AM EST Office Visit Cardiology, [facility] 132 [place] [address] Evita Brennan CRNP 132 [place] [address] 08/21/2023 8:30 AM EST Home Visit [facility], [facility] 132 [facility] [place] [address] Love Stevens, RN 132 [facility] [place] [address] 09/16/2023 11:00 AM EDT Telemedicine Pharmacy, [facility] 200 [facility] [place] [address] Pharmacist1, [facility] [address] [facility] [place] [address] 10/06/2023 2:10 PM EDT Office Visit Family Medicine [address] [place] [phone] Bárbara Rios[address] [place] [address] 10/27/2023 8:30 AM EDT Office Visit [facility] 132 [facility] [place] [phone] Lindsey Sheikh CRNP 132 [facility] [place] [address] 02/29/2024 3:20 PM EDT Office Visit Nephrology [address] [place] [address] Shivani Magallon MD 200 [facility] [place] [address] Scheduled Procedures Name Priority Associated Diagnoses Date/Ti [...] this encounter Medical Devices Implanted Type Area Jewish Thought Professor Device Identifier Shelf Expiration Date Model / Serial / Lot Lens Intraoc 21.0 - [id number] - [id number] Implanted:Qty: 1 on 01/22/2017 by Cheko Mcnamara MD at OR [facility] Right: Eye [employer] 08/05/2021 [id number] / [id number] / [id number] Lens Intraoc 21.5 - [id number] - [id number] Implanted:Qty: 1 on 02/03/2017 by Cheko Mcnamara MD at OR [facility] Left: Eye [employer] LOMB 09/02/2021 [id number] / [id number] / [id number] documented as of this encounter Visit Diagnoses [...] and were consensually agreed upon. Care Teams Solutions Development Analyst Relationship Specialty Start Date End Date Bárbara Rios DO [address] [place] [address] [place] [address] PCP - General Internal Medicine 08/16/21 documented as of this encounter
--- OUTSIDE RECORDS SUMMARY | 2023-10-20 23:00 | External Medical Summary | Summary of Care ---
Author Name Unknown Organization [facility] Address [address] [facility] [place] [address] Phone [phone] Care Team Providers Care Retail Commission Sales Associate Name Role Phone Bárbara Rios Primary Care Provider [phone] Encounter Details Date Type Department Care Team (Late st Contact Info) Description 07/16/2023 Population Health External Data Unspecified Department Allergies Active Allergy Reactions Criticality Noted Date Comments Other Allergy (See Comments) Rash Low 10/13/2022 1+ cocamidopropyl betaine Sglt2 Inhibitors Other (Please comment) High 09/04/2020 Genital infection Sulfa Antibiotics Rash 10/15/2016 documented as of this encounter (statuses as of 07/20/2023) Medications Medication Sig Dispensed Refills Start Date [...] 32 UNITS WITH DINNER PLUS CORRECTION PER [facility] OR DIRECTED UP TO [...] a week. 9 mL 3 04/09/2023 Active Xuhvb-8-rbmi Ethyl Esters 1 GM Oral Capsule (Lovaza) [...] as of this encounter (statuses as of 07/20/2023) Active Problems Problem Noted Date Diagnosed Date [...] has been better controlled recently. Monitor using [employer] [place] Cindy. Hypertensive heart and kidne y disease [...] as of this encounter (statuses as of 07/20/2023) Resolved Problems Problem Noted Date Diagnosed Date [...] as of this encounter (statuses as of 07/20/2023) Immunizations Name Administration Dates Next Due COVID-19 mRNA, LNP-s, No Pre serve, 2-Dose Series (Moderna) 12/10/2020,11/12/2020 Hepatitis B, 20+ yrs 01/04/2018,08/03/2017,07/03 Pneumococcal Conjugate Vacci ne, 20-valent ([id number]) 06/09/2022 Pneumococcal Polysaccharide PPV23 (Pneumovax) 03/06/2020 Seasonal [...] 07/22/2023 10:00 AM EST Nurse Only Ancillary [address] [place] [address] [place], Nurse [address] [place] [address] 07/22/2023 3:00 PM EST [facility]icine [facility], [facility] 132 [place] [address] Sam Gage PA-C 132 [place] [address] Griselda Chong, Community Health [address] [place] [address] 07/28/2023 10:30 AM EST Nutrition Services [facility], [facility] [address] [facility] [place] [address] Mery Calderon RDN [address] [facility] [place] [address] 07/29/2023 1:30 PM EST Home Visit [facility], [facility] 132 [place] [address] Love Stevens RN [address] [place] [address] 08/06/2023 10:00 AM EST Office Visit Cardiology, [facility] 132 [place] [address] Evita Brennan CRNP 132 [place] [address] 08/21/2023 8:30 AM EST Home Visit [facility], [facility] [address] [place] [address] Love Stevens, ANNE MARIE 132 [facility] [place] [address] 09/16/2023 11:00 AM EDT Telemedicine Pharmacy, [facility] [place] 200 [facility] [place] [address] Pharmacist1, [facility] 200 [facility] [place] [address] 10/06/2023 2:10 PM EDT Office Visit Family Medicine [address] [place] [phone] Bárbara Rios[address] [place] [address] 10/27/2023 8:30 AM EDT Office Visit Sleep Disorders Ctr [facility] 132 [facility] [place] [phone] Lindsey Sheikh CRNP 132 [facility] [place] [address] 02/29/2024 3:20 PM EDT Office Visit Nephrology [address] [place] [address] Shivani Magallon MD 200 [facility] [place] [address] Scheduled Procedures Name Priority Associated Diagnoses Date/Ti [...] this encounter Medical Devices Implanted Type Area Activity Coordinator Device Identifier Shelf Expiration Date Model / Serial / Lot Lens Intraoc 21.0 - [id number] - [id number] Implanted:Qty: 1 on 01/22/2017 by Cheko Mcnamara MD at OR [facility] Right: Eye BAUSCH & LOMB 08/05/2021 [id number] / [id number] / [id number] Lens Intraoc 21.5 - [id number] - [id number] Implanted:Qty: 1 on 02/03/2017 by Cheko Mcnamara MD at OR [facility] Left: Eye BAUSCH & LOMB 09/02/2021 [id number] / [id number] / [id number] documented as of this encounter Advance Directives [...] were consensually agreed upon. Care Teams Retail Commission Sales Associate Relationship Specialty Start Date End Date Bárbara Rios DO [address] [place] [address] [place] [address] PCP - General Internal Medicine 08/16/21 documented as of this encounter
--- OUTSIDE RECORDS SUMMARY | 2023-10-20 23:00 | External Medical Summary | Summary of Care ---
Author Name Unknown Organization [facility] Address [address] [facility] [address] Phone [phone] Care Team Providers Care Supply Planner Name Role Phone Bárbara Rios Primary Care Provider [phone] Reason for Visit * Reason Onset Date Comments Medication Refill 07/13/2023 Encounter Details Date Type Department Care Team (Late st Contact Info) Description 07/13/2023 Refill Nephrology, [place] 200 [facility] [place] [address] Mikal Covington MD 200 [facility] [place] [address] Hypertensive heart and kidney disease with chronic [...] Oral CapsuleIndications :takes in the evening Take by mouth 200 [...] a week. 9 mL 3 04/09/2023 Active Tlasd-4-orxb Ethyl Esters 1 GM Oral Capsule (Lovaza) [...] Evolocumab 140 MG/ML Subcutaneous Solution Auto-injector (Repatha DiViNetworksClick)Indicati ons:Dyslipidemia, goal LDL below 100,Mixed dyslipidemia Inject 140 mg under the skin every 14 days. 6 mL 3 06/19/2023 Active Potassium Chloride Gaviota ER 10 MEQ Oral Tablet Extended ReleaseIndications :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) Take 1 Tablet by mouth in the morning. 90 Tablet 3 07/13/2023 Active Potassium Chloride Gaviota ER 10 MEQ [...] has been better controlled recently. Monitor using [employer] Cindy. Hypertensive heart and kidne y disease [...] Plan o Other/Additional Comments: Contact Nephrology (Dr. Covington) for DTP recommendations because of current NEMESIO Exacerbation Plan o Other/Additional Comments: Contact Nephrology (Dr. Covington) for recommendations due to current NEMESIO Additional [...] yrs 01/04/2018,08/03/2017,07/03 Pneumococcal Conjugate Vacci ne, 20-valent ([id number]) 06/09/2022 Pneumococcal Polysaccharide PPV23 (Pneumovax) 03/06/2020 Seasonal [...] encounter Miscellaneous Notes * Telephone Encounter - Mikal Covington MD - 07/13/2023 3:08 PM ESTSigned Prescriptions: Disp Refills Potassium Chloride Gaviota ER 10 MEQ Oral Tab*90 Tab*3 Sig: Take 1 Tablet by mouth in the morning. Authorizing Provider: MIKAL COVINGTON * Telephone Encounter - Meghan Ro [facility] - 07/13/2023 11:15 AM EST Patient is requesting a 90-day supply, pre-edited RXs as such. Please review and approve if appropriate. Pending Prescriptions: Disp Refills Potassium Chloride Gaviota ER 10 MEQ Oral Ta*90 Tab*3 Sig: Take 1 Tablet by mouth in the morning. Last Visit: 03/13/2023 (in office), Visit date not found (telemedicine) Visit date not found If no future appointments scheduled, and last appointment is greater than a year ago, please schedule patient for an appointment Last date the medication was ordered: 04/24/2023 Patient Phone Numbers Labs: Lab Results Component Value Date/Time CREAT 2.1 (H) 06/11/2023 11:11 AM CREAT 2.96 (A) 01/31/2023 12:00 AM CREAT 0.9 09/08/2017 08:00 AM POTASSIUM 4.0 06/11/2023 11:11 AM POTASSIUM 4.1 01/31/2023 12:00 AM POTASSIUM 3.9 09/08/2017 08:00 AM TSH 2.21 04/18/2022 10:44 AM TSH 2.89 10/05/2018 12:00 AM LDLCALC 152 (H) 01/05/2023 08:27 AM LDLCALC 110 (A) 12/21/2017 12:00 AM LDLDIRECT 89 07/10/2023 10:57 AM ALT 45 11/19/2022 03:32 PM ALT 226 (A) 01/09/2020 12:00 AM HGBA1C 8.2 (H) 06/11/2023 11:11 AM HGBA1C 7.1 (A) 06/25/2022 12:00 AM HGBA1C 11.6 (A) 03/08/2019 08:54 AM HGBA1C 9.7 12/01/2018 12:00 AM documented in this encounter Plan of Treatment Upcoming Encounters Date Type Department Care Team (Late st Contact Info) Description 07/14/2023 9:30 AM EST Telemedicine Cardiology [address] [place] [address] [place], [facility] Cardiology [address] [place] [address] [place] [address] 07/22/2023 10:00 AM EST Nurse Only Ancillary [address] [place] [address] [place], Nurse [address] [place] [address] 07/22/2023 3:00 PM EST Telemedicine [facility], [address] [place] [address] Sam Gage PA-C [address] [place] [address] Griselda Chong, Community Health Photo Print Specialist [address] [place] [address] [place] [address] 07/28/2023 10:30 AM EST Nutrition Services [facility], [facility] [address] [facility] [place] [address] Mery Calderon, VIVIANAN [address] [facility] [place] [address] 07/29/2023 1:30 PM EST Home Visit [facility], [facility] [address] [place] [address] Love Stevens, ANNE MARIE [address] [place] [address] 08/06/2023 10:00 AM EST Office Visit Cardiology, [facility] [address] [place] [address] Evita Brnenan CRNP [address] [place] [address] 08/21/2023 8:30 AM EST Home Visit [facility], [facility] [address] [place] [address] Love Stevens, ANNE MARIE 132 [facility] [place] [address] 09/16/2023 11:00 AM EDT Telemedicine Pharmacy, [facility] 200 [facility] [place] [address] Pharmacist1, [facility] 200 [facility] [place] [address] 10/06/2023 2:10 PM EDT Office Visit Family Medicine [address] [place] [phone] Bárbara Rios [address] [place] [address] 10/27/2023 8:30 AM EDT [facility] [address] [place] [phone] Lindsey Sheikh CRNP [address] [place] [address] 02/29/2024 3:20 PM EDT Office Visit Nephrology [address] [place] [address] Mikal Covington MD [address] [place] [address] Scheduled Procedures Name Priority Associated Diagnoses Date/Ti [...] this encounter Medical Devices Implanted Type Area Handbag Parts Cutter Device Identifier Shelf Expiration Date Model / Serial / Lot Lens Intraoc 21.0 - [id number] - [id number] Implanted:Qty: 1 on 01/22/2017 by Cheko Mcnamara MD at OR [facility] Right: Eye BAUSCH & LOMB 08/05/2021 [id number] / [id number] / [id number] Lens Intraoc 21.5 - [id number] - [id number] Implanted:Qty: 1 on 02/03/2017 by Cheko Mcnamara MD at OR [facility] Left: Eye BAUSCH & LOMB 09/02/2021 [id number] / [id number] / [id number] documented as of this encounter Visit Diagnoses Diagnosis 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) documented in this encounter Advance Directives Latest [...] and were consensually agreed upon. Care Teams Supply Planner Relationship Specialty Start Date End Date Bárbara Rios DO [address] [place] [address] [place] [phone] PCP - General Internal Medicine 08/16/21 documented as of this encounter
--- OUTSIDE RECORDS SUMMARY | 2023-10-20 23:00 | External Medical Summary | Summary of Care ---
Author Name Unknown Organization [facility] Address [address] [facility] [place] [address] Phone [phone] Care Team Providers Care Bicycle Repairer Name Role Phone Bárbara Rios Primary Care Provider [phone] Reason for Visit * Reason Comments Diabetes Follow-Up Dosage Adjustment Via Phone (anticoag Cl inic) Encounter Details Date Type Department Care Team (Late st Contact Info) Description 07/08/2023 11:00 AM [facility] Telemedicine Pharmacy, [facility] 200 [facility] [place] [address] Pharmacist1, [facility] [address] [facility] [place] [address] Type 2 diabetes mellitus with hemoglobin A1c goal of less than 8.0% ([facility])* Allergies Active Allergy Reactions Criticality Noted Date Comments Other Allergy (See Comments) Rash Low 10/13/2022 1+ cocamidopropyl betaine Sglt2 Inhibitors Other (Please comment) High 09/04/2020 Genital infection Sulfa Antibiotics Rash 10/15/2016 documented as of this encounter (statuses as of 07/08/2023) Medications Medication Sig Dispensed Refills Start Date [...] 32 UNITS WITH DINNER PLUS CORRECTION PER [facility] OR DIRECTED UP TO [...] a week. 9 mL 3 04/09/2023 Active Xbari-1-kimg Ethyl Esters 1 GM Oral Capsule (Lovaza) [...] Active Evolocumab 140 MG/ML Subcutaneous Solution Auto-injector ([email or web address] [employer] (ZEEP)Click)Indicatio ns:Dyslipidemia, goal LDL below 100,Mixed dyslipidemia Inject [...] as of this encounter (statuses as of 07/08/2023) Active Problems Problem Noted Date Diagnosed Date [...] as of this encounter (statuses as of 07/08/2023) Resolved Problems Problem Noted Date Diagnosed Date [...] as of this encounter (statuses as of 07/08/2023) Immunizations Name Administration Dates Next Due COVID-19 mRNA, LNP-s, No Pre serve, 2-Dose Series (Moderna) 12/10/2020,11/12/2020 Hepatitis B, 20+ yrs 01/04/2018,08/03/2017,07/03 Pneumococcal Conjugate Vacci ne, 20-valent ([id number]) 06/09/2022 Pneumococcal Polysaccharide PPV23 (Pneumovax) 03/06/2020 Seasonal [...] as of this encounter Progress Notes * Ashley Rivera Adrián, [facility] - 07/08/2023 11:10 AM EST Images from the original note were not included. Medication Therapy Disease Management [facility] - Diabetes Management Progress Note Patient Phone Numbers Tony Delong, identified by name and date of , is a 63 year old male being seen for diabetes management/education. Patient for telephonic return diabetic visit. After connecting to the patient via telephone, the patient was identified by name and date of . Patient was then informed that this was a telephone call only visit. The patient agreed to participate. Visit Disposition: Routine follow-up Total call duration was 6 minutes. DIABETES: Current diabetic medications: Ozempic 2mg weekly - patient assistance (1st week of 2mg) Tresiba (U200) 100 units twice daily Novolog 26 units with breakfast, 26 units with lunch, 32 units with dinner + CF 1:15 over 150 (new sheet given to patient) Medication Injection Site: Abdomen and thigh Lifestyle: Diet: improved History of Treatment Barriers: Lifestyle: None Therapy considerations: None Medication: Metformin IR - ECHO Glucose Review/SMBG: Readings obtained from patient device Hypoglycemia: Does your blood sugar go below 70 mg/dL? Yes, once. Other low readings due to sleeping on sensor. Hyperglycemia symptoms present: none Recent Labs Units 06/11/23 1111 04/01/23 1531 12/17/22 1438 HEMOGLOBIN A1C - [facility] % 8.2* 7.2* 9.4* Recent Labs Units 06/11/23 1111 04/27/23 1403 04/21/23 1315 ESTIMATED GLOMERULAR FILTRATION RATE - [facility] mL/min 35* 39* 43* CREATININE - [facility] mg/dL 2.1* 1.9* 1.8* Lab Results Component Value Date/Time CREATININE - [facility] 2.1 (H) 06/11/2023 11:11 AM CREATININE - [facility] 1.9 (H) 04/27/2023 02:03 PM CREATININE - [facility] 1.8 (H) 04/21/2023 01:15 PM CREATININE - [facility] 0.9 09/08/2017 08:00 [...] daily BP Readings from Last 3 Encounters: 06/26/23 158/74 06/19/23 147/65 05/26/23 116/58 Blood pressure at goal: No, elevated in June Current regimen: Lisinopril 20mg daily Torsemide 40mg daily plus 20mg later in day if needed. Hydralazine 25mg three times daily Blood Pressure Goal: <140/90 mmHg No results for input(s): "MICROALBUMIN" in the last [address] hours. Recent Labs Units 06/11/23 1111 04/27/23 1403 04/21/23 1315 POTASSIUM - [facility] mmol/L 4.0 4.2 4.0 HYPERLIPIDEMIA: Patient is taking moderate or high intensity statin: Fenofibrate 54mg daily, Repatha 140mg every 2 weeks (missed last dose of Repatha - PAP ended. Awaiting new approval) HEALTH MAINTENANCE REVIEW: Health Maintenance Due Topic Date Due HIV Screening Never done Alpha-1 Antitrypsin Never done COLONOSCOPY-EVERY 5 YRS AGES 18-100 01/01/2023 COVID-19 Vaccine ( season) 2023 Depression Screening 07/21/2023 ASSESSMENT & PLAN: ICD-10-CM 1. Type 2 diabetes mellitus with hemoglobin A1c goal of less than 8.0% ([facility]) E11.9 BG Readings - Blood sugars controlled. BG at goal now. Medications - Reviewed current regimen, patient is adherent to regimen. Diet, Exercise, Lifestyle - Diet improved with Ozempic increase. . Discussed with patient todayt Patient is agreeable to wear Cindy. Patient aware to contact clinic if any [...] Date Immunizations: Up to Date Foot Exam: Up to Date Eye Exam: Up to Date Annual Wellness Visit: Up to Date FOLLOW UP: Phone call follow up in 8 weeks 09/16/2023 Adrián Ramirez RPh, CACP, CDE Clinical Pharmacist Medication Therapy Management Clinic 07/08/2023 11:11 AM documented in this encounter Plan of Treatment Upcoming Encounters Date Type Department Care Team (Late st Contact Info) Description 07/14/2023 9:30 AM EST Telemedicine Cardiology [place] [address] [place] [address] [place] [address] [facility] Cardiology [address] [place] [address] [place] [address] 07/22/2023 10:00 AM EST Nurse Only Ancillary [address] [place] [address] [place], Nurse [address] [place] [address] 07/22/2023 3:00 PM EST Telemedicine [facility], [facility] [address] [facility] [place] [address] Sam Gage PA-C [address] [place] [address] Griselda Chong, Community Health Customer Resolution Specialist [address] [place] [address] [place] [address] 07/28/2023 10:30 AM EST Nutrition Services [facility], [facility] [address] [facility] [place] [address] Mery Calderon RDN [address] [facility] [place] [address] 07/29/2023 1:30 PM EST Home Visit [facility], [facility] [address] [place] [address] Love Stevens, ANNE MARIE [address] [place] [address] 08/06/2023 10:00 AM EST Office Visit Cardiology, [facility] [address] [place] [address] Evita Brennan CRNP [address] [place] [address] 08/21/2023 8:30 AM EST Home Visit [facility], [facility] 132 [place] [address] Love Stevens, ANNE MARIE 132 [facility] [place] [address] 09/16/2023 11:00 AM EDT Telemedicine Pharmacy, [facility] 200 [address] [place] [address] Pharmacist1, [facility] [address] [place] [address] 10/06/2023 2:10 PM EDT Office Visit Family Medicine [address] [place] [phone] Bárbara Rios, [address] [place] [address] 10/27/2023 8:30 AM EDT Office Visit Sleep Disorders Ctr [facility] [address] [place] [phone] Lindsey Sheikh CRNP [address] [place] [address] 02/29/2024 3:20 PM EDT Office Visit Nephrology [address] [place] [address] Shivani Magallon MD [address] [place] [address] Scheduled Procedures Name Priority Associated Diagnoses Date/Ti [...] this encounter Medical Devices Implanted Type Area Ceramic Coater Machine Device Identifier Shelf Expiration Date Model / Serial / Lot Lens Intraoc 21.0 - [id number] - [id number] Implanted:Qty: 1 on 01/22/2017 by Cheko Mcnamara MD at OR [facility] Right: Eye BAUSCH & LOMB 08/05/2021 [id number] / [id number] / [id number] Lens Intraoc 21.5 - [id number] - [id number] Implanted:Qty: 1 on 02/03/2017 by Cheko Mcnamara MD at OR [facility] Left: Eye BAUSCH & LOMB 09/02/2021 [id number] / [id number] / [id number] documented as of this encounter Visit Diagnoses Diagnosis Type 2 diabetes mellitus with hemoglobin A1c goal of less than 8.0% (HCC)- Primary documented in this encounter Advance [...] and were consensually agreed upon. Care Teams Bicycle Repairer Relationship Specialty Start Date End Date Bárbara Rios DO [address] [place] [address] [place] [address] PCP - General Internal Medicine 08/16/21 documented as of this encounter
--- OUTSIDE RECORDS SUMMARY | 2023-10-20 23:00 | External Medical Summary ---
Author Name Unknown Address Unknown Organization K01:LABORATORY [facility] - [address] [place] [address] Laboratory Report Ordering Provider Test Date Status [place] RIVERA 07/10/2023 10:57:49 Final Observation Date Value Abnormality Reference (Units ) Status LDL, (direct) 07/10/2023 10:57:49 89 <=129 (mg/dL) Final LDL Cholesterol Reference Ra nges (mg/dL):
<70 Target level for high risk ASCVD patient
<100 Optimal for general population
100-129 Near optimal for general population
130-159 Borderline high
160-189 High
>=190 Very high Performing Location LABORATORY [facility] - [address] [place] [address]
--- OUTSIDE RECORDS SUMMARY | 2023-10-20 23:01 | External Medical Summary | Summary of Care ---
Author Name Unknown Organization [facility] Address [address] [facility] [place] [address] Phone [phone] Care Team Providers Care Seismograph Chief Name Role Phone Bárbara Rios DO Primary Care Provider Encounter Details Date Type Department Care Team (Late st Contact Info) Description 07/03/2023 Orders Only Family Medicine [address] [place] [address] Bárbara Rios DO [address] [place] [address] [place] [phone] Allergies Active Allergy Reactions Criticality Noted Date Comments Other Allergy (See Comments) Rash Low 10/13/2022 1+ cocamidopropyl betaine Sglt2 Inhibitors Other (Please comment) High 09/04/2020 Genital infection Sulfa Antibiotics Rash 10/15/2016 documented as of this encounter (statuses as of 07/03/2023) Medications Medication Sig Dispensed Refills Start Date [...] 32 UNITS WITH DINNER PLUS CORRECTION PER [facility] OR DIRECTED UP [...] a week. 9 mL 3 04/09/2023 Active Kcbqu-7-xcpe Ethyl Esters 1 GM Oral Capsule (Lovaza) [...] as of this encounter (statuses as of 07/03/2023) Active Problems Problem Noted Date Diagnosed Date [...] has been better controlled recently. Monitor using Aframe Cindy. Hypertensive heart and kidne y disease [...] as of this encounter (statuses as of 07/03/2023) Resolved Problems Problem Noted Date Diagnosed Date [...] as of this encounter (statuses as of 07/03/2023) Immunizations Name Administration Dates Next Due COVID-19 mRNA, LNP-s, No Pre serve, 2-Dose Series (Moderna) 12/10/2020,11/12/2020 Hepatitis B, 20+ yrs 01/04/2018,08/03/2017,07/03 Pneumococcal Conjugate Vacci ne, 20-valent ([id number]) 06/09/2022 Pneumococcal Polysaccharide PPV23 (Pneumovax) 03/06/2020 Seasonal [...] Description 07/08/2023 11:00 AM EST Telemedicine Pharmacy, [facility] [place] [address] [facility] [place] [address] Pharmacist1, [facility] 200 [facility] [place] [address] 07/14/2023 9:30 AM EST Telemedicine Cardiology [facility] [address] [facility] [address] [facility] Cardiology [address] [facility] [place] [address] 07/22/2023 10:00 AM EST Nurse Only Ancillary [address] [place] [address] [place], Nurse [address] [place] [address] 07/22/2023 3:00 PM EST Telemedicine [facility], [facility] [address] [facility] [place] [address] Sam Gage PA-C [address] [place] [address] Griselda Chong [facility] Medical Assisting Instructor [address] [place] [address] [place] [address] 07/28/2023 10:30 AM EST Nutrition Services [facility], [facility] [address] [facility] [place] [address] Mery Calderon RDN [address] [facility] [place] [address] 07/29/2023 1:30 PM EST Home Visit [facility], [facility] [address] [place] [address] Love Stevens, ANNE MARIE [address] [place] [address] 08/06/2023 10:00 AM EST Office Visit Cardiology, [facility] [address] [place] [address] Evita Brennan CRNP [address] [place] [address] 08/21/2023 8:30 AM EST Home Visit [facility], [facility] 132 [place] [address] Love Stevens RN [address] [place] [address] 10/06/2023 2:10 PM EDT Office Visit Family Medicine [address] [place] [address] Bárbara R[address] [place] [address] 10/27/2023 8:30 AM EDT Office [facility] [address] [facility] [place] [phone] Lindsey Sheikh CRNP [address] [place] [address] 02/29/2024 3:20 PM EDT Office Visit Nephrology [address] [place] [address] Shivani Magallon MD [address] [facility] [place] [address] Scheduled Procedures Name Priority Associated Diagnoses Date/Ti [...] FOR COPD 06/26/2024 06/26/2023 Diabetic Eye Exam 07/03/2024 07/01/2023, , 12/26/2021, Additional history exists Arreola's Esophagus Surveilance 06/16/2025 06/16/2022, 06/16/2022, 03/20/2022, Additional history exists DTaP,Tdap,and Td Vaccines (2 - Td or Tdap) 12/29/2026 12/29/2016 Lipid Panel 04/01/2028 04/01/2023, 0709/2022, 10/23/2022, Additional history exists Hepatitis B Completed [...] this encounter Medical Devices Implanted Type Area Transportation Aid Device Identifier Shelf Expiration Date Model / Serial / Lot Lens Intraoc 21.0 - [id number] - [id number] Implanted:Qty: 1 on 01/22/2017 by Cheko Mcnamara MD at OR [facility] Right: Eye BAUSCH & LOMB 08/05/2021 [id number] / [id number] / [id number] Lens Intraoc 21.5 - [id number] - [id number] Implanted:Qty: 1 on 02/03/2017 by Cheko Mcnamara MD at OR [facility] Left: Eye BAUSCH & LOMB 09/02/2021 [id number] / [id number] / [id number] documented as of this encounter Procedures Procedure Name Priority Date/Time Associated Diagnosis Comments DIABETIC EYE EXAM Routine 07/01/2023 documented in this encounter Results * DIABETIC EYE EXAM (07/01/2023) 07/01/2023 History Per Patient OTHER OUTSIDE LAB (SEE SCANNED REPORT) documented in this encounter Advance Directives Latest [...] and were consensually agreed upon. Care Teams Seismograph Chief Relationship Specialty Start Date End Date Bárbara Rios DO [address] [place] [address] [place] [phone] PCP - General Internal Medicine 08/16/21 documented as of this encounter
--- OUTSIDE RECORDS SUMMARY | 2023-10-20 23:01 | External Medical Summary | Summary of Care ---
Author Name Unknown Organization [facility] Address [address] [facility] [place] [address] Phone [phone] Care Team Providers Care Professor Of Physical Education Name Role Phone Bárbara Rios Primary Care Provider [phone] Reason for Visit * Reason Comments [facility]: Maintenance Encounter Details Date Type Department Care Team (Late st Contact Info) Description 06/26/2023 8:30 AM EST Home Visit [facility], [facility] [address] [email or web address] [place] [address] Love Stevens, RN [email or web address] [place] [address] Allergies Active Allergy Reactions Criticality Noted Date Comments Other Allergy (See Comments) Rash Low 10/13/2022 1+ cocamidopropyl betaine Sglt2 Inhibitors Other (Please comment) High 09/04/2020 Genital infection Sulfa Antibiotics Rash 10/15/2016 documented as of this encounter (statuses as of 06/26/2023) Medications Medication Sig Dispensed Refills Start Date [...] a week. 9 mL 3 04/09/2023 Active Sitqd-9-uksl Ethyl Esters 1 GM Oral Capsule (Lovaza) [...] Evolocumab 140 MG/ML Subcutaneous Solution Auto-injector (Repatha InfrafoneClick)Indicatio ns:Dyslipidemia, goal LDL below 100,Mixed dyslipidemia Inject [...] as of this encounter (statuses as of 06/26/2023) Active Problems Problem Noted Date Diagnosed Date [...] as of this encounter (statuses as of 06/26/2023) Resolved Problems Problem Noted Date Diagnosed Date [...] as of this encounter (statuses as of 06/26/2023) Immunizations Name Administration Dates Next Due COVID-19 mRNA, LNP-s, No Pre serve, 2-Dose Series (Moderna) 12/10/2020,11/12/2020 Hepatitis B, 20+ yrs 01/04/2018,08/03/2017,07/03 Pneumococcal Conjugate Vacci ne, 20-valent ([id number]) 06/09/2022 Pneumococcal Polysaccharide PPV23 (Pneumovax) 03/06/2020 Seasonal [...] Sign Reading Time Taken Comments Blood Pressure 158/74 06/26/2023 9:37 AM EST Pulse 76 06/26/2023 9:37 AM EST Temperature 36.8 C (98.3 F) 06/26/2023 9:37 AM ES T Respiratory Rate 18 06/26/2023 9:37 AM EST Oxygen Saturation 96% 06/26/2023 9:37 AM EST Inhaled Oxygen Concentration - - Weight - - Height - - Body Mass Index - - documented in this encounter Progress Notes * Love Stevens RN - 06/26/2023 8:35 AM EST Images from the original note were not included. [facility] Visit Date: 06/26/2023 Time: 9:00 AM Name: Tony Delong : 1960 Current Concerns: Patient seen for follow up- CKD4, CHF, COPD, [place], DM2 Reports doing well. Blood sugars- 7 day average 171 Vs wnl Lungs clear but diminished throughout Sob with exertion-baseline No LE edema Weights stable- see below Voiding without difficulty Bowels wnl- per report Appetite good Taking fluids well. Offers no complaints Problems/Symptoms: Review of Systems Constitutional: Negative. HENT: Negative. Eyes: Negative. Respiratory: Positive for shortness of breath. Cardiovascular: Negative. Gastrointestinal: Negative. Endocrine: Negative. Genitourinary: Negative. Musculoskeletal: Negative. Skin: Negative. Allergic/Immunologic: Negative. Neurological: Negative. Hematological: Negative. Psychiatric/Behavioral: Negative. Physical Exam: BP 158/74 (BP Site: Left Arm, BP Position: Sitting, BP Cuff Size: Regular) | Pulse 76 | Temp 36.8 C (98.3 F) (Tympanic) | Resp 18 | SpO2 96% Pain 0 Physical Exam Constitutional: Appearance: Normal appearance. Cardiovascular: Rate and Rhythm: Normal rate and regular rhythm. Pulses: Normal pulses. Pulmonary: Effort: Pulmonary effort is normal. Breath sounds: Normal breath sounds. Abdominal: General: Bowel sounds are normal. Palpations: Abdomen is soft. Musculoskeletal: General: Normal range of motion. Cervical back: Normal range of motion. Skin: General: Skin is warm and dry. Capillary Refill: Capillary refill takes 2 to 3 seconds. Neurological: General: No focal deficit present. Mental Status: He is alert and oriented to person, place, and time. Psychiatric: Mood and Affect: Mood normal. Behavior: Behavior normal. [facility] Completed this Visit: No. Routine visit Treatment/Plan: Low na diet [facility] scales daily Blood sugars QID Continue medications as prescribed Keep all upcoming MD appointnments Fall precautions Fluid restriction RN CM follow up in 6 weeks Home Interventions Provided: Reinforced current Plan of Care, including self-management and medication regimen Patient Needs to Remember: Call [facility] with any medical concerns/ red flags Referrals Needed: N/a Follow Up: Is there cellular connectivity/connectivity in the home? Yes Does the patient have internet in the home? Yes Patient encouraged to call the intake phone number for all urgent but not emergent issues. Scheduled to follow up with patient in 6 weeks. Love Du RN 06/26/2023 9:00AM documented in this encounter Plan of Treatment Upcoming Encounters Date Type Department Care Team (Late st Contact Info) Description 07/08/2023 11:00 AM EST Telemedicine Pharmacy, [facility] 200 [facility] [place] [address] Pharmacist1, [facility] 200 [facility] [place] [address] 07/14/2023 9:30 AM EST Telemedicine Cardiology Heather Stephens [address] [place] [address] [facility] [address] [place] [address] 07/22/2023 10:00 AM EST Nurse Only Ancillary [address] [place] [address] [place], Nurse [address] [place] [address] 07/22/2023 3:00 PM EST Telemedicine [facility], [facility] 132 [place] [address] Sam Gage PA-C [address] [place] [address] Griselda Chong, Community [facility] Sewage Plant Supervisor [address] [place] [address] [place] [address] 07/28/2023 10:30 AM EST Nutrition Services [facility], [facility] [address] [facility] [place] [address] Mery Calderon RDN [address] [facility] [place] [address] 07/29/2023 1:30 PM EST Home Visit [facility], [facility] [address] [place] [address] Love Stevens, ANNE MARIE [address] [place] [address] 08/06/2023 10:00 AM EST Office Visit Cardiology, [facility] [address] [place] [address] Evita Brennan CRNP 132 [place] [address] 08/21/2023 8:30 AM EST Home Visit [facility], [facility] 132 [place] [address] Love Stevens, RN [address] [place] [address] 10/06/2023 2:10 PM EDT Office Visit Family Medicine [address] [place] [address] Bárbara Rios [address] [place] [address] 10/27/2023 8:30 AM EDT Office Visit [facility] Disorders [facility]tr [facility] 132 [facility] [place] [phone] Lindsey Sheikh CRNP 132 [facility] [place] [address] 02/29/2024 3:20 PM EDT Office Visit Nephrology [address] [place] [address] Shivani Magallon MD 200 [facility] [place], [place] [address] Scheduled Procedures Name Priority Associated Diagnoses Date/Ti [...] 12/11/2023 06/11/2023, 03/07, 12/17/2022, Additional history exists Diabetic Eye Exam 01/01/2024 12/31/2022, , 05/28/2021, Additional history exists O2 ASSESSMENT COMPLETED IN PAST YEAR FOR COPD 05/26/2024 05/26/2023 Albumin/Creatinine Ratio 06/11/2024 023, 09/22/2022, 09/02/2022, Additional history exists Arreola's Esophagus Surveilance 06/16/2025 06/16/2022, 06/16/2022, 03/20/2022, Additional history exists DTaP,Tdap,and Td Vaccines (2 - Td or Tdap) 12/29/2026 12/29/2016 Lipid Panel 04/01/2028 04/01/2023, 07/09/2022, 10/23/2022, Additional history exists Hepatitis B Completed [...] this encounter Medical Devices Implanted Type Area Planishing Hammer Operator Device Identifier Shelf Expiration Date Model / Serial / Lot Lens Intraoc 21.0 - [id number] - [id number] Implanted:Qty: 1 on 01/22/2017 by Cheko Mcnamara MD at OR [facility] Right: Eye BAUSCH & LOMB 08/05/2021 [id number] / [id number] / [id number] Lens Intraoc 21.5 - [id number] - [id number] Implanted:Qty: 1 on 02/03/2017 by Cheko Mcnamara MD at [facility] Left: Eye BAUSCH & LOMB 09/02/2021 [id number] / [id number] / [id number] documented as of this encounter Advance Directives [...] and were consensually agreed upon. Care Teams Professor Of Physical Education Relationship Specialty Start Date End Date Bárbara Rios DO [address] [place] [address] [place] [phone] PCP - General Internal Medicine 08/16/21 documented as of this encounter
--- OUTSIDE RECORDS SUMMARY | 2023-10-20 23:01 | External Medical Summary | Summary of Care ---
Author Name Unknown Organization [facility] Address [address] [place] [address] Phone [phone] Care Team Providers Care Joint Runner Name Role Phone Bárbara Rios Primary Care Provider [phone] Reason for Visit * Reason Onset Date Comments Remote Patient Monitoring Alert 07/01/2023 Encounter Details Date Type Department Care Team (Late st Contact Info) Description 07/01/2023 Home Monitoring Care Coordination [address] [place] [address] HepCandy alejo LPN HTN, goal below 140/90* Allergies Active Allergy Reactions Criticality Noted Date Comments Other Allergy (See Comments) Rash Low 10/13/2022 1+ cocamidopropyl betaine Sglt2 Inhibitors Other (Please comment) High 09/04/2020 Genital infection Sulfa Antibiotics Rash 10/15/2016 documented as of this encounter (statuses as of 07/02/2023) Medications Medication Sig Dispensed Refills Start Date [...] DINNER PLUS CORRECTION PER [facility] OR DIRECTED UP TO 120 UNITS [...] a week. 9 mL 3 04/09/2023 Active Kbptw-4-kwqc Ethyl Esters 1 GM Oral Capsule (Lovaza) [...] Evolocumab 140 MG/ML Subcutaneous Solution Auto-injector (Repatha Mark mediaClick)Indicatio ns:Dyslipidemia, goal LDL below 100,Mixed dyslipidemia Inject [...] as of this encounter (statuses as of 07/02/2023) Active Problems Problem Noted Date Diagnosed Date [...] as of this encounter (statuses as of 07/02/2023) Resolved Problems Problem Noted Date Diagnosed Date [...] as of this encounter (statuses as of 07/02/2023) Immunizations Name Administration Dates Next Due COVID-19 mRNA, LNP-s, No Pre serve, 2-Dose Series (Moderna) 12/10/2020,11/12/2020 Hepatitis B, 20+ yrs 01/04/2018,08/03/2017,07/03 Pneumococcal Conjugate Vacci ne, 20-valent ([id number]) 06/09/2022 Pneumococcal Polysaccharide PPV23 (Pneumovax) 03/06/2020 Seasonal [...] Progress Notes * Clary Gregg RPh - 07/02/2023 8:31 AM EST [facility] - Hypertension Management This patient was contacted as part of the [facility] Nephrology 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 Blood Pressure Goal: 130/80 mmHg Type of Alert: Yellow Current Hypertension Medications: Lisinopril 10mg daily Carvedilol 25mg BID Torsemide 20mg - Take 2 tablets in the morning and a third tablet at least 4 hours later; Take extra tablet as needed for weight gain Hydralazine 25mg TID Metolazone (?) ON HOLD as of 01/21 Potassium 10MEQ daily Previous antihypertensive use: n/a Experiencing symptoms related to elevated BP: No BP Readings from Last 3 Encounters: 06/26/23 158/74 06/19/23 147/65 05/26/23 116/58 Pulse Readings from Last 3 Encounters: 06/26/23 76 06/19/23 67 05/26/23 66 Recent Labs Units 06/11/23 1111 04/27/23 1403 04/21/23 1315 SODIUM - [facility] mmol/L 139 140 141 POTASSIUM - [facility] mmol/L 4.0 4.2 4.0 CHLORIDE - [facility] mmol/L 104 100 102 CO2 - [facility] mmol/L 24 26 25 CREATININE - [facility] mg/dL 2.1* 1.9* 1.8* BUN - [facility] mg/dL 42* 44* 37* ASSESSMENT & PLAN: Systolic Diastolic Pulse Systolic Diastolic 149 72 Average 136 66 136 65 147 72 High 72 72 137 66 Low 55 55 132 65 110 55 Range 17 17 139 67 Count 7 7 Recent BP readings including several above goal. Average above goal. Attempted to contact patient to discuss, no answer. Left message to return call to clinic. Clary Gregg RPh Clinical Pharmacist - Shed Workers Supervisor Medication Therapy Management [facility] 07/02/2023, 8:32 AM * Candy Katz LPN - 07/01/2023 4:22 PM EST Tony Delong [id number] Tony Delong is currently participating in the [facility] Hypertension Management Program and hada reading on 07/01/2023 of 149/72. Pt has alerted for an Average BP [...] we can have them changed. Thank you! Candy Katz LPN documented in this encounter Plan of Treatment Upcoming Encounters Date Type Department Care Team (Late st Contact Info) Description 07/08/2023 11:00 AM EST Telemedicine Pharmacy, [facility] 200 [facility] [place] [address] Pharmacist1, [facility] 200 [facility] [place] [address] 07/14/2023 9:30 AM EST Telemedicine Cardiology [facility] 400 [facility] [place] [address] [facility] 400 [facility] [place] [address] 07/22/2023 10:00 AM EST Nurse Only Ancillary [address] [place] [address] [place], Nurse [address] [place] [address] 07/22/2023 3:00 PM EST Telemedicine [facility], [facility] 132 [place] [address] Sam Gage PA-C 132 [place] [address] Griselda Chong, Community Health Rural Carrier [address] [place] [address] [place] [address] 07/28/2023 10:30 AM EST Nutrition Services [facility], [facility] [address] [facility] [place] [address] Mery Calderon RDN [address] [facility] [place] [address] 07/29/2023 1:30 PM EST Home Visit [facility], [facility] 132 [place] [address] Love Stevens RN [address] [place] [address] 08/06/2023 10:00 AM EST Office Visit Cardiology, [facility] 132 [place] [address] Evita Brennan CRNP 132 [place] [address] 08/21/2023 8:30 AM EST Home Visit [facility], [facility] 132 [place] [address] Love Stevens, RN 132 [place] [address] 10/06/2023 2:10 PM EDT Office Visit Family Medicine [address] [place] [address] Bárbara Rios DO [address] [place] [address] [place] [address] 10/27/2023 8:30 AM EDT Office Visit [facility] [address] [place] [phone] Lindsey Sheikh CRNP [address] [place] [address] 02/29/2024 3:20 PM EDT Office Visit Nephrology [address] [place] [address] Shivani Magallon MD [address] [place] [address] Scheduled Procedures Name Priority Associated Diagnoses Date/Ti [...] 01/01/2024 12/31/2022, , 05/28/2021, Additional history exists Albumin/Creatinine Ratio 06/11/2024 023, 09/22/2022, 09/02/2022, Additional history exists O2 ASSESSMENT COMPLETED IN PAST YEAR FOR COPD 06/26/2024 06/26/2023 Arreola's Esophagus Surveilance 06/16/2025 06/16/2022, 06/16/2022, 03/20/2022, [...] this encounter Medical Devices Implanted Type Area Fire Sprinkler Service Technician Device Identifier Shelf Expiration Date Model / Serial / Lot Lens Intraoc 21.0 - [id number] - [id number] Implanted:Qty: 1 on 01/22/2017 by Cheko Mcnamara MD at OR [facility] Right: Eye BAUSCH & LOMB 08/05/2021 [id number] / [id number] / [id number] Lens Intraoc 21.5 - [id number] - [id number] Implanted:Qty: 1 on 02/03/2017 by Cheko Mcnamara MD at OR [facility] Left: Eye BAUSCH & LOMB 09/02/2021 [id number] / [id number] / [id number] documented as of this encounter Visit Diagnoses Diagnosis HTN, goal below 140/90- Primary Unspecified essential hypertension documented in this encounter Advance Directives Latest [...] and were consensually agreed upon. Care Teams Joint Runner Relationship Specialty Start Date End Date Bárbara Rios DO [address] [place] [address] [place] [address] PCP - General Internal Medicine 08/16/21 documented as of this encounter
--- OUTSIDE RECORDS SUMMARY | 2023-10-20 23:01 | External Medical Summary | Summary of Care ---
Author Name Unknown Organization [facility] [address] [facility] [address] Phone [phone] Care Team Providers Care Cloth Winder Machine Operator Name Role Phone Bárbara Rios Primary Care Provider [phone] Reason for Visit * Reason Onset Date Comments Returning Call 07/02/2023 Encounter Details Date Type Department Care Team (Late st Contact Info) Description 07/02/2023 Telephone Pharmacy, [place] Fernandez [address] [place] [address] [place] [address] [address], [facility] [address] [place] [address] Returning Call Allergies Active Allergy Reactions Criticality Noted Date [...] hemoglobin A1c goal of less than 7.0% ([facility]) USE TO INJECT INSULINS 5 TIMES DAILY. [...] a week. 9 mL 3 04/09/2023 Active Gdver-3-tlhp Ethyl Esters 1 GM Oral Capsule (Lovaza) [...] Evolocumab 140 MG/ML Subcutaneous Solution Auto-injector (Repatha [employer]Click)Indicatio ns:Dyslipidemia, goal LDL below 100,Mixed dyslipidemia Inject [...] has been better controlled recently. Monitor using Ushahidi Cindy. 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 Blood Pressure Goal: 130/80 mmHg Type [...] 06/26/23 76 06/19/23 67 05/26/23 66 Recent labs Recent Labs Units 06/11/23 1111 04/27/23 1403 [...] including several above goal. Average above goal. ASSESSMENT & PLAN: Spoke to patient and he stated he has a heal cold now. He has been eating more soup which is salty,a probable cause for the elevated BP the past few days. His BG have been elevated due to being sickalso. Patient educated on the following: Limit sodium intake MEDICATION CHANGES: none Hypertension Medications: Lisinopril 10mg daily Carvedilol 25mg BID Torsemide 20mg - Take 2 tablets in the morning and a third tablet at least 4 hours later; Take extra tablet as needed for weight gain Hydralazine 25mg TID Metolazone (?) ON HOLD as of 01/21 Potassium 10MEQ daily HEALTH MAINTENANCE INTERVENTIONS: Labs: Ordered & Scheduled: Up to date FOLLOW UP: As needed. DM follow up next week Adrián Ramirez RPh, CACP, CDE Clinical Pharmacist [facility] 07/02/2023, 2:33 PM * Telephone Encounter - Tay Blackwell city treasurer - 07/02/2023 12:06 PM EST Caller's name: Marina Preferred call back number(OFFICE NUMBER FOR ): [phone] Reason for call: Received return call from Specialty pharmacy on pt regarding pt BS readings. Thank you, Tay Blackwell [facility] Infectious Disease Physician [facility] Telepharmacy 07/02/2023,12:06 PM documented in this encounter Plan of Treatment Upcoming Encounters Date Type Department Care Team (Late st Contact Info) Description 07/08/2023 11:00 AM EST Telemedicine Pharmacy, [facility] [place] [address] [facility] [place] [address] Pharmacist[address], [facility] 200 [facility] [place] [address] 07/14/2023 9:30 AM EST Telemedicine [place]iology [place] [address] [place] [place] [address] [facility] [address] [place] [place] [address] 07/22/2023 10:00 AM EST Nurse Only Ancillary [address] [place] [address] [place], Nurse [address] [place] [address] 07/22/2023 3:00 PM EST Telemedicine [facility], [facility] [address] [place] [address] Sam Gage PA-C [address] [place] [address] Griselda Chong, Community [facility] [address] [place] [address] 07/28/2023 10:30 AM EST Nutrition Services [facility], [facility] [address] [facility] [place] [address] Mery Calderon RDN [address] [facility] [place] [address] 07/29/2023 1:30 PM EST Home Visit [facility], [facility] [address] [place] [address] Love Stevens RN [address] [place] [address] 08/06/2023 10:00 AM EST Office Visit Cardiology, [facility] [address] [place] [address] Evita Brennan CRNP [address] [place] [address] 08/21/2023 8:30 AM EST Home Visit [facility], [facility] [address] [place] [address] Love Stevens, ANNE MARIE 132 [facility] [place] [address] 10/06/2023 2:10 PM EDT Office Visit Family Medicine [address] [place] [phone] Bárbara Rios[address] [place] [address] 10/27/2023 8:30 AM EDT Office Visit Sleep Disorders Ctr [facility] 132 [facility] [place] [phone] Lindsey Sheikh CRNP 132 [facility] [place] [address] 02/29/2024 3:20 PM EDT Office Visit Nephrology [address] [place] [address] Shivani Magallon MD 200 [facility] [place] [address] Scheduled Procedures Name Priority Associated Diagnoses Date/Ti [...] this encounter Medical Devices Implanted Type Area Fish Processor Device Identifier Shelf Expiration Date Model / Serial / Lot Lens Intraoc 21.0 - [id number] - [id number] Implanted:Qty: 1 on 01/22/2017 by Cheko Mcnamara MD at OR [facility] Right: Eye [employer]USCH & LOMB 08/05/2021 [id number] / [id number] / [id number] Lens Intraoc 21.5 - [id number] - [id number] Implanted:Qty: 1 on 02/03/2017 by Cheko Mcnamara MD at OR [facility] Left: Eye BAUSCH & LOMB 09/02/2021 [id number] / [id number] / [id number] documented as of this encounter Advance Directives [...] were consensually agreed upon. Care Teams Cloth Winder Machine Operator Relationship Specialty Start Date End Date Bárbara Rios DO [address] [place] [address] [place] [address] PCP - General Internal Medicine 08/16/21 documented as of this encounter
--- OUTSIDE RECORDS SUMMARY | 2023-10-20 23:01 | External Medical Summary | Summary of Care ---
Author Name Unknown Organization [facility] Address [address] [facility] [place] [address] Phone [phone] Care Team Providers Care Recreation Manager Name Role Phone Bárbara Rios Primary Care Provider [phone] Reason for Visit * Reason Onset Date Comments [facility]: Maintenance 07/02/2023 Encounter Details Date Type Department Care Team (Late st Contact Info) Description 07/02/2023 Telephone [facility], [facility] [address] [facility] [place] [address] [facility], Nurse [facility] [address] [place] [address] [facility]: Maintenance Allergies Active Allergy [...] WITH DINNER PLUS CORRECTION PER [facility] OR DIRECTED UP [...] a week. 9 mL 3 04/09/2023 Active Muxqw-8-rwzm Ethyl Esters 1 GM Oral Capsule (Lovaza) [...] Evolocumab 140 MG/ML Subcutaneous Solution Auto-injector (Repatha [employer]Click)Indicatio ns:Dyslipidemia, goal LDL below 100,Mixed dyslipidemia Inject [...] yrs 01/04/2018,08/03/2017,07/03 Pneumococcal Conjugate Vacci ne, 20-valent ([id number]) 06/09/2022 Pneumococcal Polysaccharide PPV23 (Pneumovax) 03/06/2020 Seasonal Influenza, PF, 6 M & above, IM , (FluLaval or Fluzone) 04/01/2023,04/27/2022,03/21/2021,04/18,07/11/2019,08/18/2017 Seasonal Influenza, Split, I IV3, With Preserve, Inj 04/05/2016 TDAP (age 10 and older)(Boostrix) 12/29/2016 Zoster Vaccine Recombinant (Shingrix) 05/29/2020 ,01/27/2020 documented as of this encounter Social History Tobacco Use Types Packs/Day Years Used Date Smoking Tobacco: Former Cigarettes 2 13 1 5 - 1987 Smokeless Tobacco: Never Alcohol Use [...] Telephone Encounter - Alexandra Mcgraw LPN - 07/02/2023 1:03 PM EST Images from the original note were not included. [facility] Remote Patient Monitoring Able to contact patient: Trigger type: Abnormal reading(s): AMC (Advanced Monitored Caregiving): Scale: Baseline weight: 293 -10/+3 lbs Trigger weight: 293 lbs; weight increased 2.8 lbs in 1 day(s) Trigger priority per AMC: high Patient takes diuretic medication: Yes, reviewed current diuretic use: Name of medication: Torsemide Dose: 40 mg AM and 20 mg in PM Frequency: daily Symptom review: Edema: little ABD distention Diet Reviewed: Yes. Patient has had any foods high in sodium: Yes, describe: chicken broth Fluid Intake Reviewed: Yes. Patient is on a fluid restriction: Yes, restriction amount in milliliters or liters: 2 Adherent to restriction: Yes Self-Management Plan Reviewed: Red Flags: none listed Risk assignment recommendation: Moderate risk findings (check as applicable): [x] Moderate trigger priority on [facility] [] Confirmed tympanic equivalent temperature 100.4-101.9 F [...] as applicable): [] High trigger priority on [facility] [] Confirmed tympanic equivalent temperature greater than [...] Additional risk selection justification: AMC trigger for 2.8 weight increase in 1 day Reviewed AMC readings pt seems to be at baseline Call to pt states he has hd a cold and has been drinking more water and had chicken broth Pt reports he took extra torsemide today 60 mg in AM and 40 mg in PM Pt reports a little ABD distention Pt denies increase SOB, not on O2, -CP Pt reports cold symptoms started 4-5 days ago. Did not test for covid . Pt states it is just a old fashion cold, +sinus congestion.denies fever, -N, -V, -D Reports it has just about run its course and symptoms are improving Reports he is just still a little tired. Will forward to care team for any further direction. Overall risk and identified plan: Moderate risk: Route to RNCM (Registered Nurse Web Database Developer) and Advance Practitioner documented in this encounter Plan of Treatment Upcoming Encounters Date Type Department Care Team (Late st Contact Info) Description 07/08/2023 11:00 AM EST Telemedicine Pharmacy, [facility] 200 [facility] [place] [address] Pharmacist1, [facility] 200 [facility] [place] [address] 07/14/2023 9:30 AM EST Telemedicine Cardiology [place] [address] [place] [address] [facility] [address] [place] [address] 07/22/2023 10:00 AM EST Nurse Only Ancillary [address] [place] [address] [place], Nurse [address] [place] [address] 07/22/2023 3:00 PM EST Telemedicine [facility], [facility] [address] [place] [address] Sam Gage PA-C [address] [place] [address] Griselda Chong, Community [facility] [address] [place] [address] 07/28/2023 10:30 AM EST Nutrition Services [facility], [facility] [address] [facility] [place] [address] Mery Calderon RDN [address] [facility] [place] [address] 07/29/2023 1:30 PM EST Home Visit [facility], [facility] [address] [place] [address] Love Stevens RN [address] [place] [address] 08/06/2023 10:00 AM EST Office Visit Cardiology, [facility] [address] [place] [address] Evita Brennan CRNP [address] [place] [address] 08/21/2023 8:30 AM EST Home Visit [facility], [facility] [address] [place] [address] Love Stevens, ANNE MARIE [facility] [place] [address] 10/06/2023 2:10 PM EDT Office Visit Family Medicine [address] [place] [phone] Bárbara Rios, [address] [place] [address] 10/27/2023 8:30 AM EDT Office Visit Sleep Disorders Ctr [facility] 132 [facility] [place] [phone] Lindsey Sheikh CRNP 132 [facility] [place] [address] 02/29/2024 3:20 PM EDT Office Visit Nephrology [address] [place] [address] Shivani Magallon MD 200 [facility] [place] [address] Scheduled Procedures Name Priority Associated Diagnoses Date/Ti [...] this encounter Medical Devices Implanted Type Area Field Artillery Fire Control Man Device Identifier Shelf Expiration Date Model / Serial / Lot Lens Intraoc 21.0 - [id number] - [id number] Implanted:Qty: 1 on 01/22/2017 by Cheko Mcnamara MD at [facility] Right: Eye BAUSCH & LOMB 08/05/2021 [id number] / [id number] / [id number] Lens Intraoc 21.5 - [id number] - [id number] Implanted:Qty: 1 on 02/03/2017 by Cheko Mcnamara MD at OR [facility] Left: Eye BAUSCH & LOMB 09/02/2021 [id number] / [id number] / [id number] documented as of this encounter Advance Directives [...] and were consensually agreed upon. Care Teams Recreation Manager Relationship Specialty Start Date End Date Bárbara Rios DO [address] [place] [address] [place] [address] PCP - General Internal Medicine 08/16/21 documented as of this encounter
--- OUTSIDE RECORDS SUMMARY | 2023-10-20 23:01 | External Medical Summary | Summary of Care ---
Author Name Unknown Organization [facility] Address [address] [facility] [place] [address] Phone [phone] Care Team Providers Care Comp Field Case Manager Name Role Phone Bárbara Rios Primary Care Provider [phone] Reason for Visit * Reason Onset Date Comments [facility]: Maintenance 06/21/2023 Encounter Details Date Type Department Care Team (Late st Contact Info) Description 06/21/2023 11:00 AM EST Scheduled Telephone [facility], [facility] 132 [facility] [place] [address] [facility], Nurse [facility] 132 [facility] [place] [address] Allergies Active Allergy Reactions Criticality Noted Date Comments Other Allergy (See Comments) Rash Low 10/13/2022 1+ cocamidopropyl betaine Sglt2 Inhibitors Other (Please comment) High 09/04/2020 Genital infection Sulfa Antibiotics Rash 10/15/2016 documented as of this encounter (statuses as of 06/21/2023) Medications Medication Sig Dispensed Refills Start Date [...] a week. 9 mL 3 04/09/2023 Active Vlnom-9-kfcz Ethyl Esters 1 GM Oral Capsule (Lovaza) [...] Active Evolocumab 140 MG/ML Subcutaneous Solution Auto-injector (Bluebox Now!atha [employer])Indicatio ns:Dyslipidemia, goal LDL below 100,Mixed dyslipidemia Inject [...] as of this encounter (statuses as of 06/21/2023) Active Problems Problem Noted Date Diagnosed Date [...] as of this encounter (statuses as of 06/21/2023) Resolved Problems Problem Noted Date Diagnosed Date [...] as of this encounter (statuses as of 06/21/2023) Immunizations Name Administration Dates Next Due COVID-19 mRNA, LNP-s, No Pre serve, 2-Dose Series (Moderna) 12/10/2020,11/12/2020 Hepatitis B, 20+ yrs 01/04/2018,08/03/2017,07/03 Pneumococcal Conjugate Vacci ne, 20-valent (Vqpodzq80) 06/09/2022 Pneumococcal Polysaccharide PPV23 (Pneumovax) 03/06/2020 Seasonal [...] Telephone Encounter - Charlene Vila RN - 06/21/2023 3:18 PM EST Images from the original note were not included. Situation: ck wt Background: CHF Completed DTP on 06/18/23 (second DTP in 2 weeks) Has not had metolazone since January Assessment: Recommendation: T/c to pt, no answer LMOM asking to call back if having any sob above baseline Encouraged to continue to step on scales Provided with [facility] phone number documented in this encounter Plan of Treatment Upcoming Encounters Date Type Department Care Team (Late st Contact Info) Description 06/24/2023 3:00 PM EST Nutrition Services [facility], [facility] [address] [facility] [place] [address] Mery Calderon RDN [address] [facility] [place] [address] 06/26/2023 8:30 AM EST Home Visit [facility], [facility] 132 [place] [address] Love Stevens, RN [address] [place] [address] 07/08/2023 11:00 AM EST Telemedicine Pharmacy, [facility] [place] 200 Susan [place] [address] Pharmacist1, [facility] [address] [place] [address] 07/14/2023 9:30 AM EST Telemedicine Cardiology [place] [address] [place] [address] Heather [facility] Cardiology [address] [place] [address] [place] [address] 07/22/2023 10:00 AM EST Nurse Only Ancillary [address] [place] [address] [place], Nurse [address] [place] [address] 07/22/2023 3:00 PM EST Telemedicine [facility], [facility] [address] [place] [address] Sam Gage PA-C [address] [place] [address] Griselda Chong [address] [place] [address] 08/06/2023 10:00 AM EST Office Visit Cardiology, [facility] 132 [facility] [place] [address] Evita Brennan CRNP [address] [place] [address] 10/06/2023 2:10 PM EDT Office Visit Family Medicine [address] [place] [phone] Bárbara Rios, [address] [place] [address] 10/27/2023 8:30 AM EDT Office Visit Sleep Disorders Ctr [facility] 132 [facility] [place] [phone] Lindsey Sheikh CRNP [address] [place] [address] 02/29/2024 3:20 PM EDT Office Visit Nephrology [address] [place] [address] Shivani Magallon MD [address] [place] [address] Scheduled Procedures Name Priority Associated Diagnoses Date/Ti [...] history exists Arreola's Esophagus Surveilance 06/16/2025 06/16/2022, 03/20/2022, 11/13/2021 DTaP,Tdap,and Td Vaccines (2 - Td or [...] this encounter Medical Devices Implanted Type Area Certified Physician Assistant Device Identifier Shelf Expiration Date Model / Serial / Lot Lens Intraoc 21.0 - [id number] - [id number] Implanted:Qty: 1 on 01/22/2017 by Cheko Mcnamara MD at OR [facility] Right: Eye BAUSCH & LOMB 08/05/2021 [id number] / [id number] / [id number] Lens Intraoc 21.5 - [id number] - [id number] Implanted:Qty: 1 on 02/03/2017 by Cheko Mcnamara MD at OR [facility] Left: Eye BAUSCH & LOMB 09/02/2021 [id number] / [id number] / [id number] documented as of this encounter Advance Directives [...] and were consensually agreed upon. Care Teams Comp Field Case Manager Relationship Specialty Start Date End Date Bárbara Rios DO [address] [place] [address] [place] [phone] PCP - General Internal Medicine 08/16/21 documented as of this encounter
--- OUTSIDE RECORDS SUMMARY | 2023-10-20 23:01 | External Medical Summary | Summary of Care ---
Author Name Unknown Organization [facility] Address [address] [facility] [place] [address] Phone [phone] Care Team Providers Care Mix Maker Name Role Phone Bárbara Rios Primary Care Provider [phone] Reason for Visit * Reason Comments Medical Nutrition Therapy Encounter Details Date Type Department Care Team (Latest Contact Info) Description 06/24/2023 3:00 PM EST Nutrition Services [facility], [facility] [address] [facility] [place] [address] Mery Calderon, RDN [address] [place] [facility] [place] [address] Type 2 diabetes mellitus with stage 3b chronic kidney disease, with long-term current use of insulin ([facility])* Allergies Active Allergy Reactions Criticality Noted Date Comments Other Allergy (See Comments) Rash Low 10/13/2022 1+ cocamidopropyl betaine Sglt2 Inhibitors Other (Please comment) High 09/04/2020 Genital infection Sulfa Antibiotics Rash 10/15/2016 documented as of this encounter (statuses as of 06/24/2023) Medications Medication Sig Dispensed Refills Start Date [...] 32 UNITS WITH DINNER PLUS CORRECTION PER [facility] OR DIRECTED UP TO [...] a week. 9 mL 3 04/09/2023 Active Erqym-3-yrtw Ethyl Esters 1 GM Oral Capsule (Lovaza) [...] Active Evolocumab 140 MG/ML Subcutaneous Solution Auto-injector (Propeller Healthatha DibspaceClick)Indicatio ns:Dyslipidemia, goal LDL below 100,Mixed dyslipidemia Inject [...] as of this encounter (statuses as of 06/24/2023) Active Problems Problem Noted Date Diagnosed Date [...] as of this encounter (statuses as of 06/24/2023) Resolved Problems Problem Noted Date Diagnosed Date Resolved Date NEMESIO (acute kidney injury) 04/30/2022 Severe obesity with body mas s index (BMI) of 35.0 to 39.9 with serious comorbidity 04/30/2022 Acute on chronic diastolic heart failure 08/16/2021 10/03/2022 Elevated LFTs 08/16/2021 05/25/2022 Hypertensive heart disease w ith chronic diastolic congestive heart failure 01/25/202104/212 Need for pneumococcal vaccination 03/06/2020 05/29/2020 Severe [...] as of this encounter (statuses as of 06/24/2023) Immunizations Name Administration Dates Next Due COVID-19 mRNA, LNP-s, No Pre serve, 2-Dose Series (Moderna) 12/10/2020,11/12/2020 Hepatitis B, 20+ yrs 01/04/2018,08/03/2017,07/03 Pneumococcal Conjugate Vacci ne, 20-valent ([id number]) 06/09/2022 Pneumococcal Polysaccharide PPV23 (Pneumovax) 03/06/2020 Seasonal [...] of this encounter Progress Notes * Mery Calderon, SUDHIR - 06/24/2023 9:39 AM EST NUTRITION PROGRESS NOTE - [facility] [employer] Patient Phone Numbers: Call placed to pt as follow-up from initial nutrition assessment from 05/25/23. Patient denies any issues related to diet [...] a week Alcohol: None Tobacco Use: No Lives with significant other who continues to assist with care/food shopping/prepping/cooking of meals BS continues to be tested 3-4x daily BS ranging 190's recently (reiterated the need for proper nutrition to better control BS) [facility] follows Patient (next appt 07/08/23) Since last call, appetite and PO intake remain "excellent" No po difficulties reported this call Patient reports SOB has greatly lessened ("I feel better") (provided encouragement) Reiterated the need to stay active with bedside/chair exercises 2-3x/week--(provided encouragement/info sent previously) Patient admits to not always adhering to low sodium/low sugar diet restrictions (BLE edema noted) Reinforced the need to avoid these foods/suggested nutritious examples/reinforced foods to avoid/consume Possible peritoneal dialysis discussed [...] sodium/low sugar foods with consistent carbohydrates (reiterated foods to consume/avoid/suggested nutritious examples/sent info previously)--inprogress 2) Consume more fruits/vegetables at HS snack vs cookies (reinforced My Plate Method/seasonal fruits and vegs suggested/info sent previously)--in progress 3) Encouraged to do bedside/chair exercises/2-3x per week/walks (info previously sent)--in progress-provided encouragement Reinforced nutrition goals. Encouraged continued progress towards goals Follow up as scheduled. Encouraged pt to contact [facility] at [phone] for any non-emergent changes/concerns. Mery Calderon MS, RDN, LDN Clinical Dietitian [facility] 06/24/2023 9:40 AM documented in this encounter Plan of Treatment Upcoming Encounters Date Type Department Care Team (Late st Contact Info) Description 06/26/2023 8:30 AM EST [facility] Visit [facility], [facility] 132 [facility] [place] [address] Love Stevens, ANNE MARIE [address] [facility] [place] [address] 07/08/2023 11:00 AM EST Telemedicine Pharmacy, [facility] [place] [address] [place] [address] Pharmacist1, [facility] Sp [address] [place] [address] 07/14/2023 9:30 AM EST Telemedicine Cardiology [place] [facility] [place] [address] [place] [address] [facility] Cardiology [address] [place] [address] 07/22/2023 10:00 AM EST Nurse Only Ancillary [address] [place] [address] [place], Nurse Annual [address] [place] [address] 07/22/2023 3:00 PM EST Telemedicine [facility], [facility] [address] [place] [address] Sam Gage PA-C [address] [place] [address] Griselda Chong [address] [place] [address] 07/28/2023 10:30 AM EST Nutrition Services [facility], [facility] [address] [facility] [place] [address] Mery Calderon RDN [address] [place] [address] 08/06/2023 10:00 AM EST Office Visit Cardiology, [facility] [address] [place] [address] Evita Brennan CRNP [address] [place] [address] 10/06/2023 2:10 PM EDT Office Visit Family Medicine [address] [place] [phone] Bárbara Rios [address] [place] [address] 10/27/2023 8:30 AM EDT Office Visit Sleep Disorders Ctr [facility] [place] [address] [place] [place] [phone] Lindsey Sheikh CRNP [address] [place] [address] 02/29/2024 3:20 PM EDT Office Visit Nephrology [address] [place] [address] Shivani Magallon MD [address] [place] [address] Scheduled Procedures Name Priority Associated Diagnoses Date/Ti [...] this encounter Medical Devices Implanted Type Area Harness Repairer Device Identifier Shelf Expiration Date Model / Serial / Lot Lens Intraoc 21.0 - [id number] - [id number] Implanted:Qty: 1 on 01/22/2017 by Cheko Mcnamara MD at OR [facility] Right: Eye BAUSCH & LOMB 08/05/2021 [id number] / [id number] / [id number] Lens Intraoc 21.5 - [id number] - [id number] Implanted:Qty: 1 on 02/03/2017 by Cheko Mcnamara MD at OR [facility] Left: Eye BAUSCH & LOMB 09/02/2021 [id number] / [id number] / [id number] documented as of this encounter Visit Diagnoses Diagnosis Type 2 diabetes mellitus with stage 3b chronic kidney disease, with long-term current use of insulin (HCC)- Primary documented in this encounter Advance [...] and were consensually agreed upon. Care Teams Mix Maker Relationship Specialty Start Date End Date Bárbara Rios DO [address] [place] [address] [place] [address] PCP - General Internal Medicine 08/16/21 documented as of this encounter
--- OUTSIDE RECORDS SUMMARY | 2023-10-20 23:02 | External Medical Summary | Summary of Care ---
Author Name Unknown Organization [facility] Address [address] [facility] [place] [address] Phone [phone] Care Team Providers Care Sulfonator Operator Name Role Phone Bárbara Rios Primary Care Provider [phone] Reason for Visit * Reason Onset Date Comments [facility]: Maintenance 06/20/2023 Encounter Details Date Type Department Care Team (Late st Contact Info) Description 06/20/2023 Telephone [facility], [facility] [address] [facility] [place] [address] [facility], Nurse [address] [place] [address] [facility]: Maintenance Allergies Active Allergy Reactions Criticality Noted Date Comments Other Allergy (See Comments) Rash Low 10/13/2022 1+ cocamidopropyl betaine Sglt2 Inhibitors Other (Please comment) High 09/04/2020 Genital infection Sulfa Antibiotics Rash 10/15/2016 documented as of this encounter (statuses as of 06/20/2023) Medications Medication Sig Dispensed Refills Start Date [...] a week. 9 mL 3 04/09/2023 Active Nbizu-0-lgta Ethyl Esters 1 GM Oral Capsule (Lovaza) [...] Active Evolocumab 140 MG/ML Subcutaneous Solution Auto-injector (Red Hot Labsatha HomeSphereClick)Indicatio ns:Dyslipidemia, goal LDL below 100,Mixed dyslipidemia Inject [...] as of this encounter (statuses as of 06/20/2023) Active Problems Problem Noted Date Diagnosed Date [...] as of this encounter (statuses as of 06/20/2023) Resolved Problems Problem Noted Date Diagnosed Date [...] as of this encounter (statuses as of 06/20/2023) Immunizations Name Administration Dates Next Due COVID-19 mRNA, LNP-s, No Pre serve, 2-Dose Series (Moderna) 12/10/2020,11/12/2020 Hepatitis B, 20+ yrs 01/04/2018,08/03/2017,07/03 Pneumococcal Conjugate Vacci ne, 20-valent ([id number]) 06/09/2022 Pneumococcal Polysaccharide PPV23 (Pneumovax) 03/06/2020 Seasonal [...] Miscellaneous Notes * Telephone Encounter - Cassandra Rviero RN - 06/20/2023 11:26 AM EST Images from the original note were not included. PC to pt re: [facility] trigger Pt finished DTP on 06/18/23. Second DTP in 2 weeks. He denies eating extra sodium filled foods. States cooks from scratch. He fees ok. Some SOB and feeling tired. Advised him to not have any canned or processed foods and stick to fluid restriction. Pt has not had Metalozone since January. DTP is torsemide increase dosing. Recheck tomorrow. Adding PC for tomorrow. Cassandra Rivero RN [facility] Intake Triage Coordinator [phone] documented in this encounter Plan of Treatment Upcoming Encounters Date Type Department Care Team (Late st Contact Info) Description 06/21/2023 11:00 AM EST Scheduled Telephone [facility] [place], [address] [place] [address] [facility], Nurse [address] [place] [address] 06/24/2023 3:00 PM EST Nutrition Services [facility], [facility] [address] [facility] [place] [address] Mery Calderon RDN [address] [facility] [place] [address] 06/26/2023 8:30 AM EST Home Visit [facility] [place], [facility] 132 [facility] [place] [address] Love Stevens, ANNE MARIE [address] [place] [address] 07/08/2023 11:00 AM EST Telemedicine Pharmacy, [facility] [address] [place] [address] Pharmacist1, [facility] [address] [place] [address] 07/14/2023 9:30 AM EST Telemedicine Cardiology [facility] 400 [facility] [place] [address] [facility] [address] [facility] [place] [address] 07/22/2023 10:00 AM EST Nurse Only Ancillary [address] [place] [address] [place], Nurse [address] [place] [address] 07/22/2023 3:00 PM EST Telemedicine [facility], [facility] [address] [place] [address] Sam Gage PA-C [address] [place] [address] Griselda Chong [facility] [employer] [address] [place] [address] [place] [address] 08/06/2023 10:00 AM EST Office Visit Cardiology, [facility] 132 [place] [address] Evita Brennan CRNP [address] [place] [address] 10/06/2023 2:10 PM EDT Office Visit Family Medicine [address] [place] [phone] Bárbara Rios[address] [place] [address] 10/27/2023 8:30 AM EDT Office Visit Sleep Disorders Ctr [facility] [place] [address] [place] [phone] Lindsey Sheikh CRNP [address] [place] [address] 02/29/2024 3:20 PM EDT Office Visit Nephrology [address] [place] [address] Shivani Magallon MD [address] [place] [address] Scheduled Procedures Name Priority Associated Diagnoses Date/Ti [...] this encounter Medical Devices Implanted Type [place] Program Technician Device Identifier Shelf Expiration Date Model / Serial / Lot Lens Intraoc 21.0 - [id number] - [id number] Implanted:Qty: 1 on 01/22/2017 by Cheko Mcnamara MD at OR [facility] Right: Eye BAUSCH [employer] LOMB 08/05/2021 [id number] / [id number] / [id number] Lens Intraoc 21.5 - [id number] - [id number] Implanted:Qty: 1 on 02/03/2017 by Cheko Mcnamara MD at OR [facility] Left: Eye BAUSCH & LOMB 09/02/2021 [id number] / [id number] / [id number] documented as of this encounter Advance Directives [...] and were consensually agreed upon. Care Teams Sulfonator Operator Relationship Specialty Start Date End Date Bárbara Rios DO [address] [place] [address] [place] [address] PCP - General Internal Medicine 08/16/21 documented as of this encounter
--- OUTSIDE RECORDS SUMMARY | 2023-10-20 23:02 | External Medical Summary | Summary of Care ---
Author Name Unknown Organization [facility] Address [address] [facility] [place] [address] Phone [phone] Care Team Providers Care Security Lead Name Role Phone Bárbara Rios Primary Care Provider [phone] Reason for Visit * Reason Onset Date Comments [facility]: Maintenance 06/17/2023 Encounter Details Date Type Department Care Team (Late st Contact Info) Description 06/17/2023 12:30 PM EST Scheduled Telephone [facility], [facility] [address] [place] [address] Coordinator, [facility] [address] [place] [address] Allergies Active Allergy Reactions Criticality Noted Date Comments Other Allergy (See Comments) Rash Low 10/13/2022 1+ cocamidopropyl betaine Sglt2 Inhibitors Other (Please comment) High 09/04/2020 Genital infection Sulfa Antibiotics Rash 10/15/2016 documented as of this encounter (statuses as of 06/17/2023) Medications Medication Sig Dispensed Refills Start Date [...] when flaring 60 g 0 10/13/2022 Active Evolocumab 140 MG/ML Subcutaneous Solution Auto-injector (Repatha SureClick)Indicatio ns:Dyslipidemia, goal LDL below 100,Mixed dyslipidemia Inject 140 mg under the skin every 14 days. Obtaining through PAP (Amgen) 6 mL 3 01/07/2023 Active Tresiba FlexTouch 200 UNIT/ML Subcutaneous Solution Pen-injectorIndicat ions:Type 2 diabetes mellitus with hemoglobin A1c goal of less than 7.0% (HCC) INJECT UNDER THE SKIN 100 UNITS TWICE DAILY OR DIRECTED 90 mL 3 12/18/2022 Active NovoLOG FlexPen 100 UNIT/ML Subcutaneous Solution [...] a week. 9 mL 3 04/09/2023 Active Uavan-9-akwd Ethyl Esters 1 GM Oral Capsule (Lovaza) [...] MEAL 180 Capsule 1 04/28/2023 4 Active Hospital, Clinic, or Other Facility Administered [...] as of this encounter (statuses as of 06/17/2023) Active Problems Problem Noted Date Diagnosed Date [...] as of this encounter (statuses as of 06/17/2023) Resolved Problems Problem Noted Date Diagnosed Date [...] as of this encounter (statuses as of 06/17/2023) Immunizations Name Administration Dates Next Due COVID-19 mRNA, LNP-s, No Pre serve, 2-Dose Series (Moderna) 12/10/2020,11/12/2020 Hepatitis B, 20+ yrs 01/04/2018,08/03/2017,07/03 Pneumococcal Conjugate Vacci ne, 20-valent ([id number]) 06/09/2022 Pneumococcal Polysaccharide PPV23 (Pneumovax) 03/06/2020 Seasonal [...] Encounter - Mary Jane Moser RN - 06/17/2023 9:46 AM EST Images from the original note were not included. [facility] Telephonic Nurse Follow-Up Call [facility] Subprogram: Focused Care Management (3-9 months) Follow Up Call Type: 24 hour follow up Acute issue requiring follow-up call: Remote Patient Monitoring Trigger Objective: 05/26/2023 11:41 AM 05/25/2023 7:51 AM 04/16/2023 2:03 PM 04/01/2023 2:57 PM 03/23/2023 9:32 AM VITALS ACROSS ENCOUNTERS BP 116/58 158/70 152/84 Pulse 66 64 72 Weight 138.1 kg 138.1 kg 138.8 kg BMI 40.79 41 BMI 40.79 kg/m2 40.78 kg/m2 41 kg/m2 Lab Results Component Value Date BLOOD, [...] NO DME needs identified Medications: Current DTP: Add additional 3 tab to morning dose of Torsemide , 2nd DTP in 2 weeks, start 06/16 Subjective: Condition Status: Improvement in symptoms but not at baseline Current Concerns: Per patient, feels better today. His leg swelling is lessened, belly doesn't feel as big and no problems breathing. He does have " a frog in my throat" this morning, but hoping it will go away . Advised to let us know if any new/additional symptoms arise Complete today/tomorrow of DTP Low salt 2l fluid restriction Elevate legs to hip level when seated Disposition: Issue resolved. All appropriate follow up scheduled. Future Visits Scheduled: Future Appointments-next 60 days Date/Time Provider Specialty Dept Phone 06/17/2023 12:30 PM Coordinator, Beni Prakash Aldana [facility] [phone] 06/18/2023 11:45 AM Coordinator, [facility] [phone] 06/19/2023 1:30 PM (Arrive by 1:15 PM) Luisa Ching PA-C Nephrology [phone] 06/24/2023 3:00 PM Mery Calderon RDN [facility] [phone] 06/26/2023 8:30 AM Love Stevens, RN [facility] [phone] 07/08/2023 11:00 AM Pharmacist1, [facility] [phone] 07/14/2023 9:30 AM Heather [facility] Cardiology Cardiology [phone] 07/22/2023 10:00 AM [place] Nurse Annual Wellness Ancillary [phone] 07/22/2023 3:00 PM Griselda Chong, [facility] [employer] [facility]; Sam Gage PA- C [phone] 08/06/2023 10:00 AM (Arrive by 9:45 AM) Evita Brennan CRNP Cardiology [phone] 10/06/2023 2:10 PM (Arrive by 1:55 PM) Bárbara Rios, Family Medicine [phone] 10/27/2023 8:30 AM (Arrive by 8:15 AM) Lindsey Sheikh CRNP Sleep Disorders [phone] Mary Jane Moser, ANNE MARIE documented in this encounter Plan of Treatment Upcoming Encounters Date Type Department Care Team (Late st Contact Info) Description 06/18/2023 11:45 AM EST Scheduled Telephone [facility], [facility] [address] [place] [address] Coordinator, [facility] [address] [place] [address] 06/19/2023 1:30 PM EST Office Visit Nephrology [address] [place] [address] Luisa Ching PA-C 200 [facility] [place] [address] 06/24/2023 3:00 PM EST Nutrition Services [facility], [facility] [address] [facility] [place] [address] Mery Calderon RDN [address] [facility] [place] [address] 06/26/2023 8:30 AM EST Home Visit [facility], [facility] [address] [place] [address] Love Stevens, ANNE MARIE [address] [place] [address] 07/08/2023 11:00 AM EST Telemedicine Pharmacy, [facility] Suzanne [place] 200 [facility] [place] [address] Pharmacist1, [facility] [address] [place] [address] 07/14/2023 9:30 AM EST Telemedicine Cardiology [facility] [address] [facility] [place] [address] [facility] Cardiology [address] [facility] [place] [address] 07/22/2023 10:00 AM EST Nurse Only Ancillary [address] [place] [address] [place], Nurse [address] [place] [address] 07/22/2023 3:00 PM EST Telemedicine [facility], [facility] [address] [place] [address] Sam Gage PA-C [address] [place] [address] Griselda Chong, [facility] [address] [place] [address] 08/06/2023 10:00 AM EST Office Visit Cardiology, [facility] [address] [place] [address] Evita Brennan CRNP [address] [place] [address] 10/06/2023 2:10 PM EDT Office Visit Family Medicine [address] [place] [phone] Bárbara Rios DO [address] [place] [address] [place] [address] 10/27/2023 8:30 AM EDT Office Visit Sleep Disorders Ctr [facility] [address] [place] [phone] Lindsey Sheikh CRNP [address] [place] [address] Scheduled Procedures Name Priority Associated Diagnoses Date/Ti me ESOPHAGOGASTRODUODENOSCOPY ( EGD), FLEXIBLE, TRANSORAL, DIAGNOSTIC Recall Arreola's esophagus with dysplasia COLONOSCOPY FLEXIBLE PROXIMAL DIAGNOSTIC Recall History of colon polyps Health Maintenance Due Date Last Done Comments HIV Screening 1974 Alpha-1 Antitrypsin 1977 COLONOSCOPY-EVERY 5 YRS AGES 18-100 01/01/2023 01/01/2018, 01/01/2018 COVID-19 Vaccine ( season) 2023 12/10/2020, 11/12/2020 O2 ASSESSMENT COMPLETED IN PAST YEAR FOR COPD 06/16/2023 06/16/2022 Depression Screening 07/21/2023 07/21/2022 Diabetic Foot Exam [...] this encounter Medical Devices Implanted Type Area Gun Perforator Device Identifier Shelf Expiration Date Model / Serial / Lot Lens Intraoc 21.0 - [id number] - [id number] Implanted:Qty: 1 on 01/22/2017 by Cheko Mcnamara MD at OR [facility] Right: Eye BAUSCH [employer] LOMB 08/05/2021 [id number] / [id number] / [id number] Lens Intraoc 21.5 - [id number] - [id number] Implanted:Qty: 1 on 02/03/2017 by Cheko Mcnamara MD at OR [facility] Left: Eye BAUSCH [employer] LOMB 09/02/2021 [id number] / [id number] / [id number] documented as of this encounter Advance Directives [...] were consensually agreed upon. Care Teams Security Lead Relationship Specialty Start Date End Date Bárbara Rios DO [address] [place] [address] [place] [address] PCP - General Internal Medicine 08/16/21 documented as of this encounter
--- OUTSIDE RECORDS SUMMARY | 2023-10-20 23:02 | External Medical Summary | Summary of Care ---
Author Name Unknown Organization [facility] Address [address] [facility] [address] Phone [phone] Care Team Providers Care Air Control/Anti Air Warfare Officer Name Role Phone Bárbara Rios Primary Care Provider Reason for Visit * Reason Comments Chronic Kidney Disease (CKD) Encounter Details Date Type Department Care Team (Late st Contact Info) Description 06/19/2023 1:30 PM EST Office Visit Nephrology [address] [place] [address] Luisa Ching PA-C [address] [facility] [place] [address] Chronic kidney disease, stage 3b (HCC)*; 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); White coat syndrome with diagnosis of hypertension; Albuminuria; Type 2 diabetes mellitus with stage 3b chronic kidney disease, with long-term current use of insulin (HCC) Allergies Active Allergy Reactions Criticality Noted Date Comments Other Allergy (See Comments) Rash Low 10/13/2022 1+ cocamidopropyl betaine Sglt2 Inhibitors Other (Please comment) High 09/04/2020 Genital infection Sulfa Antibiotics Rash 10/15/2016 documented as of this encounter (statuses as of 06/19/2023) Medications Medication Sig Dispensed Refills Start Date [...] 32 UNITS WITH DINNER PLUS CORRECTION PER [facility] OR DIRECTED UP TO [...] a week. 9 mL 3 04/09/2023 Active Putal-8-yqrf Ethyl Esters 1 GM Oral Capsule (Lovaza) [...] as of this encounter (statuses as of 06/19/2023) Active Problems Problem Noted Date Diagnosed Date [...] has been better controlled recently. Monitor using [facility] Cindy. Hypertensive heart and kidne y disease [...] as of this encounter (statuses as of 06/19/2023) Resolved Problems Problem Noted Date Diagnosed Date [...] as of this encounter (statuses as of 06/19/2023) Immunizations Name Administration Dates Next Due COVID-19 mRNA, LNP-s, No Pre serve, 2-Dose Series (Moderna) 12/10/2020,11/12/2020 Hepatitis B, 20+ yrs 01/04/2018,08/03/2017,07/03 Pneumococcal Conjugate Vacci ne, 20-valent ([id number]) 06/09/2022 Pneumococcal Polysaccharide PPV23 (Pneumovax) 03/06/2020 Seasonal [...] Sign Reading Time Taken Comments Blood Pressure 147/65 06/19/2023 1:37 PM EST Pulse 67 06/19/2023 1:37 PM EST Temperature 36.7 C (98 F) 06/19/2023 1:37 PM EST Respiratory Rate - - Oxygen Saturation - - Inhaled Oxygen Concentration - - Weight 138.3 kg (305 lb) 06/19/2023 1:37 PM EST Height - - Body Mass Index 40.86 05/25/2023 7:51 AM EST documented in this encounter Progress Notes * Luisa Ching PA-C - 06/19/2023 1:30 PM EST NEPHROLOGY CLINIC NOTE Nephrology [address] Martín [place] [address] Patient Name: Tony Delong Patient Active Problem List Diagnosis Code Type [...] (HCC) E11.22, N18.32, Z79.4 Sacroiliitis (HCC) M46.1 Chronic heart failure with preserved ejection fraction (HCC) I50.32 Chronic obstructive pulmonary disease (HCC) J44.9 BACKGROUND: 63 year old male presents for f/u of proteinuric CKD 4 with recent NEMESIO Past Medical history includes Barretts esophagus, heart failure with preserved ejection fraction, hepatic steatosis, sleep apnea on CPAP, 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 Followed in the past with Dr.Donelan CASAS and CKD attributed to diabetic kidney disease and hypertensive n ephrosclerosis. Injured L knee 2017 tendons and again 02/2022 >> 04/2022 [facility] . In wake of this had severe sacroilitis, well managed by Dr Masterson for pain. Had been on naproxen as recently as February 2021 but had abrupt decline in eGFR at that time in setting of longstanding albuminuria and stopped nsaids ever since. Follows closely w/ [facility] nursing/case mgt including for daily weights. At hospital d/c in April was 287 lb but has been gaining since. Takes zaroxolyn prn > has taken 4 x since 09/09 which was first he had it. Also stopped bumex and started torsemide on 09/17. In January 2023 in the wake of several issues w/ NEMESIO was feeling improved after several med changes; however prior to this had been feeling so poorly for prior few weeks that he reprted labelling his belongings for distribution after his ; tearful at times reporting this No EtOH. Tries best to limit sodium. Drinks a lot of fluids and struggles w/ this History of genital infection with SGL T2 inhibitor. Has TEDS, does not use much Uses CPAP w/o fail. Due to rapidly progressive renal disease this summer, pt underwent recommended ESRD education > as it was not always clear whether he would have renal recovery Home blood pressure checks: Y History of stones: N Family history of CKD or ESRD: yes M was on HD NSAID use: not now;heavy in past Herbals/supplements: N Limits his fluid intake to 60 oz daily (about 1.8 L). Today 06/19/23 Denies any recent hospitalizations, procedures or infections. Reports not feeling good- feeling low energy and sluggish Reports taking toresemide and continues to work with nursing program - daily morning weight and meds adjusted as needed - states it has been often with the changes Cont with the remote bp program- bp elevated in pass few days -no changes to meds as of yet REVIEW OF SYSTEMS General: + fatigue, No change in weight Head: No significant headache Respiratory: No cough,No wheezing,+shortness of breath with exertion Cardiovascular:No chest pain, No palpitations, and No syncope Gastrointestinal: No nausea, vomiting, diarrhea No blood in stools No abdominal pain Urinary: No dysuira, No hematuria. No flank pain Musculoskeletal: +edema-cental and lower legs Skin: No itching All other systems were reviewed and were negative. Current Outpatient Medications Medication Sig Dispense Refill [...] 0 CoQ10 100 MG Oral Capsule Take by mouth 200 mg daily . CPAP every night at bedtime. OneTouch Delica [...] resolved, then when flaring 60 g 2 Betamethasone Dipropionate 0.05 % External Cream (Diprosone) Apply 2x daily (or more if itchy) to rash on scalp/arms until resolved then when flaring 60 g 0 Tresiba FlexTouch 200 UNIT/ML Subcutaneous Solution Pen-injector INJECT UNDER THE SKIN 100 UNITS TWICE DAILY OR DIRECTED 90 mL 3 NovoLOG FlexPen 100 UNIT/ML Subcutaneous Solution Pen-injector INJECT UNDER THE SKIN 26 UNITS AT BREAKFAST, 26 UNITS AT LUNCH, 32 UNITS WITH DINNER PLUS CORRECTION PER [facility] OR DIRECTED UP TO120 UNITS PER [...] to torsemide. (Patient not taking: Reported on 03/13/2023)30 Tablet 0 DIURETIC TITRATION PLAN If no improvement on day 3, contact heart failure managing provider. 60 Each 0 BD Pen Needle Short U/F 31G X 8 MM (Insulin Pen Needle) USE TO INJECT INSULINS 5 TIMES DAILY. DX: E11.9 500 Each 3 Torsemide 20 MG Oral Tablet (Demadex) [...] theskin once a week. 9 mL 3 Etnts-4-caor Ethyl Esters 1 GM Oral Capsule (Lovaza) Take 2 Capsules by mouth in the morning and 2 Capsules before bedtime. 360 Capsule 1 Carvedilol 25 MG Oral Tablet (Coreg) TAKE ONE TABLET BY MOUTH EVERY MORNING AND TAKE ONE TABLET BY MOUTH BEFORE BEDTIME 200 Tablet 3 Potassium Chloride Gaviota ER 10 MEQ Oral Tablet Extended Release Take 1 Tablet by mouth in the morning. 30 Tablet 5 Omeprazole 20 MG Oral Capsule Delayed Release (PriLOSEC) TAKE 1 CAPSULE BY MOUTH IN THE MORNING AND1 CAPSULE BEFORE BEDTIME 30 MINUTES BEFORE A MEAL 180 Capsule 1 Evolocumab 140 MG/ML Subcutaneous Solution Auto-injector (Repatha SureClick) Inject 140 mg under the skin every 14 days. 6 mL 3 Current Facility-Administered Medications Medication Dose Route Frequency Provider Last Rate Last Admin Albuterol Sulfate (Proventil) (5 MG/ML) 0.5% *conc* inhalation solution 2.5 mg 2.5 mg Nebulizer Khalif Espinosa MD Albuterol Sulfate (Proventil) (2.5 MG/3ML) 0.083% inhalation solution 2.5 mg 2.5 mg Nebulizer PRN Khalif Pierre MD 2.5 mg at 12/18/22 1159 PHYSICAL EXAMINATION Last 4 BP Readings: BP Readings from Last 4 Encounters: 05/26/23 116/58 04/16/23 158/70 04/01/23 152/84 03/16/23 142/70 Last 3 Weights: Wt Readings from Last 3 Encounters: 05/25/23 (!) 138.1 kg (304 lb 7.3 oz) 04/01/23 (!) 138.1 kg (304 lb 6.4 oz) 03/23/23 (!) 138.8 kg (306 lb) BP 147/65 (BP Site: Right Arm, BP Position: Sitting, BP Cuff Size: Large) | Pulse 67 | Temp 36.7 C (98 F) | Wt (!) 138.3 kg (305 lb) | BMI 40.86 kg/m | BSA 2.66 m Wt Readings from Last 1 Encounters: 05/25/23 (!) 138.1 kg (304 lb 7.3 oz) General appearance: alert, no apparent distress. Ambulatory with cane HEAD: Normocephalic, No masses, lesions, tenderness Respiratory: clear to auscultation, no rhonchi, no wheezes, and no crackles Heart: regular rate and regular rhythm Abdomen: abdomen soft, non-tender, and no CVA tenderness EXTREMITIES: No edema, No cyanosis or clubbing Skin: skin color, texture, turgor are normal NEURO: alert & oriented x 3 with fluent speech, no focal motor/sensory deficits No tremor Patient is a reliable historian of events LABS: Latest Reference Range & Units 03/24/23 15:50 04/01/23 15:31 04/21/23 13:15 04/27/23 14:03 06/11/23 11:11 Sodium 135 - 146 mmol/L 139 140 141 140 139 Potassium 3.5 - 5.1 mmol/L 3.9 3.9 4.0 4.2 4.0 Chloride 98 - 107 mmol/L 102 102 102 100 104 CO2 22 - 32 mmol/L 24 25 25 26 24 BUN 6 - 20 mg/dL 32 (H) 30 (H) 37 (H) 44 (H) 42 (H) Creatinine 0.6 - 1.2 mg/dL 1.8 (H) 1.7 (H) 1.8 (H) 1.9 (H) 2.1 (H) Estimated Glomerular Filtration Rate >=60 mL/min 42 (L) 44 (L) 43 (L) 39 (L) 35 (L) Anion Gap 7 - 15 mmol/L 13 13 14 14 11 Glucose 70 - 120 mg/dL 107 225 (H) 172 (H) 215 (H) 166 (H) Calcium 8.4 - 10.2 mg/dL 9.4 9.1 9.6 9.8 8.9 (H): Data is abnormally high (L): Data is abnormally low Latest Reference Range & Units 11/06/21 12:21 05/22/22 09:57 09/02/22 12:37 09/22/22 14:49 06/11/23 11:11 Albumin / Creatinine Ratio, Urine <30 mg/g Creat 693 (H) 353 (H) 1,907 (H) 784 (H) 172 (H) ALBUMIN / CREATININE RATIO, URINE Rpt ! Rpt ! Rpt ! Rpt ! Rpt ! (H): Data is abnormally high !: Data is abnormal Rpt: View report in Results Review for more information ASSESSMENT/PLAN: The patient's most recent labs (from this month) were reviewed and the assessment/plan is as follows: CKD 3B at least w/ 200 mg albuminuria noted this month. Much improved. BMP markedly improved compared to multiple OP readings when renal function was concerning for CKD 4, progressive. Improvement inrenal function encouraging; however wt uptrending currently, certainly at risk for recurrent NEMESIO versus rapid CKD progression given ongoing volume/HFpEF issues. Chemistries acceptable. Chronic kidney disease, stage 3b (HCC) (Primary) 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) White coat syndrome with diagnosis of hypertension HTN ongoing and uncontrolled/ white coat per pt -remote BP monitoring Continue torsemide, hydralazine, coreg current doses Albuminuria Improved with most recent testing to less than 200mg. Cont acei Type 2 diabetes mellitus with stage 3b chronic kidney disease, with long-term current use of insulin (HCC) Elevated blood sugars. A1c at 8.2 . Cont with MTM - tighter glycemic control encouraged. Labs up to date repeat in 6 months No changes to meds- Tighter glycemic control advised Continue current fluid limit, low Na diet, dailystanding wts Avoid medicines like aleve, advil, ibuprofen, aspirin more than 81 mg daily and other NSAIDS which are not good for kidney patients. Take only tylenol (acetaminophen) up to 2000 mg daily as needed for pain or as directed by your primary care provider. Reviewed previous status of kidney function and goals of care. All questions were answered. Check-out note: 3-4 months with alma Ching PA-C Nephrology [address] Martín [place] [address] documented in this encounter Nursing Notes * Cathi Fox LPN - 06/19/2023 1:31 PM EST Return patient- pt stated he doesn't have any energy. No recent illness or hospitalizations. Pt stated he has swelling in legs on and off. documented in this encounter Plan of Treatment Upcoming Encounters Date Type Department Care Team (Late st Contact Info) Description 06/24/2023 3:00 PM EST Nutrition Services [facility], [facility] [address] [facility] [place] [address] Mery Calderon RDN [address] [facility] [place] [address] 06/26/2023 8:30 AM EST Home Visit [facility], [facility] [address] [facility] [place] [address] [place] Stevens, ANNE MARIE 132 [facility] [place] [address] 07/08/2023 11:00 AM EST Telemedicine Pharmacy, [facility] [address] [facility] [place] [address] Pharmacist1, [facility] 200 [facility] [place] [address] 07/14/2023 9:30 AM EST [facility] [address] [facility] [place] [address] [facility] [address] [facility] [place] [address] 07/22/2023 10:00 AM EST Nurse Only Ancillary [address] [place] [address] [place], Nurse [address] [place] [address] 07/22/2023 3:00 PM EST Telemedicine [facility], [facility] [address] [place] [address] Sam Gage PA-C 132 [place] [address] Griselda Chong [address] [place] [address] 08/06/2023 10:00 AM EST Office Visit Cardiology, [facility] 132 [facility] [place] [address] Evita Brennan CRNP 132 [place] [address] 10/06/2023 2:10 PM EDT Office Visit Family Medicine [address] [place] [phone] Bárbara Rios [address] [place] [address] 10/27/2023 8:30 AM EDT Office Visit Sleep Disorders [facility] [address] [facility] [place] [phone] Lindsey Sheikh CRNP 132 [facility] [place] [address] 02/29/2024 3:20 PM EDT Office Visit Nephrology [address] [place] [address] Shivani Magallon MD [address] [facility] [place] [address] Scheduled Orders Name Type Priority Associated Diagnoses Orde r Schedule BASIC METABOLIC PANEL Lab Routine Chronic kidney disease, stage 3b (HCC) Expected: 12/19/2023, Expires: 06/19/2024 Scheduled Procedures Name Priority Associated Diagnoses Date/Ti [...] this encounter Medical Devices Implanted Type Area Audit Control Clerk Device Identifier Shelf Expiration Date Model / Serial / Lot Lens Intraoc 21.0 - [id number] - [id number] Implanted:Qty: 1 on 01/22/2017 by Cheko Mcnamara MD at OR [facility] Right: Eye [employer] 08/05/2021 [id number] / [id number] / [id number] Lens Intraoc 21.5 - [id number] - [id number] Implanted:Qty: 1 on 02/03/2017 by Cheko Mcnamara MD at OR [facility] Left: Eye [employer]OM[employer] 09/02/2021 [id number] / [id number] / [id number] documented as of this encounter Visit Diagnoses Diagnosis Chronic kidney disease, stage 3b (HCC)- Primary 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) White coat syndrome with diagnosis of hypertension Albuminuria Proteinuria Type 2 diabetes mellitus with stage 3b chronic kidney disease, with long-term current use of insulin (HCC) documented in this encounter Advance Directives [...] and were consensually agreed upon. Care Teams Air Control/Anti Air Warfare Officer Relationship Specialty Start Date End Date Bárbara Rios DO [address] [place] [address] [place] [address] PCP - General Internal Medicine 08/16/21 documented as of this encounter
--- OUTSIDE RECORDS SUMMARY | 2023-10-20 23:02 | External Medical Summary | Summary of Care ---
Author Name Unknown Organization [facility] Address [address] [facility] [place] [address] Phone [phone] Care Team Providers Care Retort Setter Name Role Phone Bárbara Rios Primary Care Provider [phone] Reason for Visit * Reason Onset Date Comments [facility]: Maintenance 06/16/2023 Encounter Details Date Type Department Care Team (Late st Contact Info) Description 06/16/2023 Telephone [facility], [facility] [address] [facility] [place] [address] [facility], Nurse [facility] [address] [facility] [place] [place] [address] [facility]: Maintenance Allergies Active Allergy Reactions Criticality Noted Date Comments Other Allergy (See Comments) Rash Low 10/13/2022 1+ cocamidopropyl betaine Sglt2 Inhibitors Other (Please comment) High 09/04/2020 Genital infection Sulfa Antibiotics Rash 10/15/2016 documented as of this encounter (statuses as of 06/16/2023) Medications Medication Sig Dispensed Refills Start Date [...] 32 UNITS WITH DINNER PLUS CORRECTION PER [facility] OR DIRECTED UP TO 120 [...] a week. 9 mL 3 04/09/2023 Active Ulcrj-2-fgah Ethyl Esters 1 GM Oral Capsule (Lovaza) [...] as of this encounter (statuses as of 06/16/2023) Active Problems Problem Noted Date Diagnosed Date [...] as of this encounter (statuses as of 06/16/2023) Resolved Problems Problem Noted Date Diagnosed Date [...] as of this encounter (statuses as of 06/16/2023) Immunizations Name Administration Dates Next Due COVID-19 mRNA, LNP-s, No Pre serve, 2-Dose Series (Moderna) 12/10/2020,11/12/2020 Hepatitis B, 20+ yrs 01/04/2018,08/03/2017,07/03 Pneumococcal Conjugate Vacci ne, 20-valent (Gatirll21) 06/09/2022 Pneumococcal Polysaccharide PPV23 (Pneumovax) 03/06/2020 Seasonal [...] Miscellaneous Notes * Telephone Encounter - Shruti MarquezROSCOE - 06/16/2023 9:57 AM EST Images from the original note were not included. [facility] Remote Patient Monitoring Able to contact patient: Trigger type: Abnormal reading(s): AMC (Advanced Monitored Caregiving): Scale: Trigger weight: 294.4 lbs; weight increased 4 lbs in 1 day(s) Trigger priority per AMC: high Patient takes diuretic medication: Yes, reviewed current diuretic use: Name of medication: Torsemide Dose: 40 mg in morning, 20 mg in afternoon Frequency: daily Symptom review: Edema: BLE Decreased urinary output: not urinating as much Weak/Dizzy: weakness/fatigue Abdominal Fullness: feels bloated Diet Reviewed: Yes. Patient has had any foods high in sodium: No Fluid Intake Reviewed: Yes. Patient is on a fluid restriction: Yes, restriction amount in milliliters or liters: 2L Adherent to restriction: Yes Self-Management Plan Reviewed: Red Flags: not listed DTP (Diuretic Titration Protocol): Describe DTP: Name of medication(s): Torsemide Dose: extra 40 mg morning and extra 20 mg afternoon Frequency: x3 days Used in past 2 weeks: Yes, 06/12/2023 Risk assignment recommendation: Moderate risk findings (check [...] symptoms Additional risk selection justification: Spoke with pt, c/o not feeling good yesterday and today. He "just doesn't feel good, can't put finger on it." He has abdominal bloating, BLE edema, decreased urinary output, weakness, doesn't have energy to walk across room, denies increased SOB. He will take double dose of Torsemide today. Please advise if pt should continue x2 more days. Overall risk and identified plan: High risk: Next day follow up call scheduled Route to RNCM (Registered Nurse Kitchen Food Server) and Advance Practitioner documented in this encounter Plan of Treatment Upcoming Encounters Date Type Department Care Team (Late st Contact Info) Description 06/17/2023 12:30 PM EST Scheduled Telephone [facility] [address] [place] [address] Coordinator, [facility] 132 [place] [address] 06/19/2023 1:30 PM EST Office Visit Nephrology [address] [place] [address] Luisa Ching PA-C [address] [place] [address] 06/24/2023 3:00 PM EST Nutrition Services [facility], [facility] [address] [facility] [place] [address] Mery Calderon, RDN [address] [facility] [place] [address] 06/26/2023 8:30 AM EST Home Visit [facility], [facility] 132 [place] [address] [place], ANNE MARIE 132 [place] [address] 07/08/2023 11:00 AM EST Telemedicine Pharmacy, [facility] 200 [facility] [place] [address] Pharmacist1, [facility] 200 [facility] [place] [address] 07/14/2023 9:30 AM EST Telemedicine Cardiology [facility] [address] [facility] 400 [facility] [place] [address] 07/22/2023 10:00 AM EST Nurse Only Ancillary [address] [place] [address] [place], Nurse [address] [place] [address] 07/22/2023 3:00 PM EST Telemedicine [facility], [facility] 132 [place] [address] Sam Gage PA-C 132 [place] [address] Griselda Chong, [facility] [address] [place] [address] 08/06/2023 10:00 AM EST Office Visit Cardiology, [facility] 132 [place] [address] Evita Brennan CRNP 132 [place] [address] 10/06/2023 2:10 PM EDT Office Visit Family Medicine [address] [place] [phone] Bárbara Rios[address] [place] [address] 10/27/2023 8:30 AM EDT Office Visit Sleep Disorders [facility] 132 [place] [phone] Lindsey Sheikh CRNP 132 [place] [address] Scheduled Procedures Name Priority Associated Diagnoses Date/Ti [...] this encounter Medical Devices Implanted Type Area Fibre Optics Jointer Device Identifier Shelf Expiration Date Model / Serial / Lot Lens Intraoc 21.0 - [id number] - [id number] Implanted:Qty: 1 on 01/22/2017 by Cheko Mcnamara MD at OR [facility] Right: Eye [employer]OM[employer] 08/05/2021 [id number] / [id number] / [id number] Lens Intraoc 21.5 - [id number] - [id number] Implanted:Qty: 1 on 02/03/2017 by Cheko Mcnamara MD at [facility] Left: Eye [employer]OM[employer] 09/02/2021 [id number] / [id number] / [id number] documented as of this encounter Advance Directives [...] and were consensually agreed upon. Care Teams Retort Setter Relationship Specialty Start Date End Date Bárbara Rios DO [address] [place] [address] [place] [phone] PCP - General Internal Medicine 08/16/21 documented as of this encounter
--- OUTSIDE RECORDS SUMMARY | 2023-10-20 23:02 | External Medical Summary | Summary of Care ---
Author Name Unknown Organization [facility] Address [address] [facility] [place] [address] Phone [phone] Care Team Providers Care Computer Programming Manager Name Role Phone Bárbara Rios Primary Care Provider [phone] Reason for Visit * Reason Onset Date Comments [facility]: Maintenance 06/16/2023 Encounter Details Date Type Department Care Team (Late st Contact Info) Description 06/16/2023 Telephone [facility], [facility] [address] [facility] [place] [address] [facility], Nurse [facility] [address] [facility] [place] [address] [facility]: Maintenance Allergies Active Allergy [...] UNITS WITH DINNER PLUS CORRECTION PER [facility] OR DIRECTED UP TO 120 UNITS [...] a week. 9 mL 3 04/09/2023 Active Zqocz-2-wflb Ethyl Esters 1 GM Oral Capsule (Lovaza) [...] yrs 01/04/2018,08/03/2017,07/03 Pneumococcal Conjugate Vacci ne, 20-valent ([id number]) 06/09/2022 Pneumococcal Polysaccharide PPV23 (Pneumovax) 03/06/2020 Seasonal [...] Telephone Encounter - Shruti Marquez LPN - 06/16/2023 4:11 PM EST Pt aware, verbalized understanding * Telephone Encounter - Amador Hernandez PA-C - 06/16/2023 4:06 PM EST [facility] Remote Medical Command Phone Encounter Thank you for your assistance in the care of this patient today. Reviewed phone message. I agree w/ the advice offered via phone by our intake nursing team. DTP for 3 days Please let me know via encounter or TT message if there is any change Thank you in advance, I appreciate it. Amador Hernandez PA-C * Telephone Encounter - Shruti Marquez LPN - 06/16/2023 9:57 AM EST Images from [...] call scheduled Route to RNCM (Registered Nurse Core Sucker) and Advance Practitioner documented in this encounter Plan of Treatment Upcoming Encounters Date Type Department Care Team (Late st Contact Info) Description 06/17/2023 12:30 PM EST Scheduled Telephone [facility], [facility] [address] [facility] [place] [address] Coordinator, [facility] [address] [facility] [place] [address] 06/19/2023 1:30 PM EST Office Visit Nephrology [address] [place] [address] Luisa Ching PA-C 200 [facility] [place] [address] 06/24/2023 3:00 PM EST Nutrition Services [facility], [facility] [address] [facility] [place] [address] Mery Calderon, RDN [address] [facility] [place] [address] 06/26/2023 8:30 AM EST Home Visit [facility], [facility] [address] [place] [address] Love Stevens, ANNE MARIE 132 [facility] [place] [address] 07/08/2023 11:00 AM EST Telemedicine Pharmacy, Susan Pal[place] [facility] [place] [address] Pharmacist1, [facility] 200 [facility] [place] [address] 07/14/2023 9:30 AM EST Telemedicine Cardiology Heather [place] [address] [place] [address] [facility] Card[facility] [address] [place] [address] 07/22/2023 10:00 AM EST Nurse Only Ancillary [address] [place] [address] [place], Nurse [address] [place] [address] 07/22/2023 3:00 PM EST Telemedicine [facility], [facility] [address] [place] [address] Sam Gage PA-C [address] [place] [address] Griselda Chong [address] [place] [address] 08/06/2023 10:00 AM EST Office Visit Cardiology, [facility] [address] [place] [address] Evita Brennan CRNP [address] [place] [address] 10/06/2023 2:10 PM EDT Office Visit Family Medicine [address] [place] [phone] Bárbara R[address] [place] [address] 10/27/2023 8:30 AM EDT Office Visit Sleep Disorders [facility] [address] [place] [phone] Lindsey Sheikh CRNP [address] [place] [address] Scheduled Procedures Name Priority Associated Diagnoses Date/Ti me ESOPHAGOGASTRODUODENOSCOPY ( EGD), FLEXIBLE, TRANSORAL, DIAGNOSTIC Recall Arreola's esophagus with dysplasia COLONOSCOPY FLEXIBLE PROXIMAL DIAGNOSTIC Recall History of colon polyps Health Maintenance Due Date Last Done Comments HIV Screening 1974 Alpha-1 Antitrypsin 1977 COLONOSCOPY-EVERY 5 YRS AGES 18-100 01/01/2023 01/01/2018, 01/01/2018 COVID-19 Vaccine (2022- season) 2023 12/10/2020, 11/12/2020 O2 ASSESSMENT COMPLETED [...] this encounter Medical Devices Implanted Type Area Schedule Analyst Device Identifier Shelf Expiration Date Model / Serial / Lot Lens Intraoc 21.0 - [id number] - [id number] Implanted:Qty: 1 on 01/22/2017 by Cheko Mcnamara MD at OR [facility] Right: Eye [employer]OM[employer] 08/05/2021 [id number] / [id number] / [id number] Lens Intraoc 21.5 - [id number] - [id number] Implanted:Qty: 1 on 02/03/2017 by Cheko Mcnamara MD at OR [facility] Left: Eye BAUSCH & LOMB 09/02/2021 [id number] / [id number] / [id number] documented as of this encounter Advance Directives [...] and were consensually agreed upon. Care Teams Computer Programming Manager Relationship Specialty Start Date End Date Bárbara Rios DO [address] [place] [address] [place] [address] PCP - General Internal Medicine 08/16/21 documented as of this encounter
--- OUTSIDE RECORDS SUMMARY | 2023-10-20 23:02 | External Medical Summary | Summary of Care ---
Author Name Unknown Organization [facility] Address [address] [facility] [place] [address] Phone [phone] Care Team Providers Care Furnace Charger Name Role Phone Bárbara Rios Primary Care Provider [phone] Reason for Visit * Reason Onset Date Comments Patient Assistance Program 05/01/2023 Encounter Details Date Type Department Care Team (Late st Contact Info) Description 05/01/2023 Telephone Cardiology, [facility] 132 [facility] [place] [address] [facility] 21 [facility] [place] [phone] Patient Assistance Program Allergies Active Allergy Reactions Criticality Noted Date [...] Oral CapsuleIndication s:takes in the evening Take by mouth 200 mg daily . 0 Active CPAP every night at bedtime. 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 315 Tablet 3 3 Active Additional Information Patient taking differently: 40 mg Oral Daily(AM), Take 2 tablets in the morning and 1 tablet 4 hours later. Continue DTP as ordered., Reported on 05/07/2023 Lisinopril 10 MG Oral Tablet (Prinivil) Take 2 Tablets by mouth in the morning. 180 Tablet 1 3 Active Semaglutide (2 MG/DOSE) 8 MG/3ML Subcutaneous Solution Pen-injector (Ozempic)Indicati ons:Type 2 diabetes mellitus with hemoglobin A1c goal of less than 8.0% (HCC) Inject 2 mg under the skin once a week. 9 mL 3 3 Active Rpune-5-yjcv Ethyl Esters 1 GM Oral Capsule (Lovaza) Take 2 Capsules by mouth in the morning and 2 Capsules before bedtime. 360 Capsule 1 3 Active Carvedilol 25 MG Oral Tablet (Coreg)Indication s:HTN, goal below 140/90 TAKE ONE TABLET BY MOUTH EVERY MORNING AND TAKE ONE TABLET BY MOUTH BEFORE BEDTIME 200 Tablet 3 3 04/18/20 24 Active Potassium Chloride Gaviota ER 10 MEQ Oral Tablet Extended ReleaseIndication s: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) Take 1 Tablet by mouth in the morning. 30 Tablet 5 3 Active Omeprazole 20 MG Oral Capsule Delayed Release (PriLOSEC) TAKE 1 CAPSULE BY MOUTH IN THE MORNING AND 1 CAPSULE BEFORE BEDTIME 30 MINUTES BEFORE A MEAL 180 Capsule 1 3 04/27/20 24 Active Evolocumab 140 MG/ML Subcutaneous Solution Auto-injector (Repatha SureClick)Indicat ions:Dyslipidemia , goal LDL below 100,Mixed dyslipidemia Inject 140 mg under the skin every 14 days. 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 Obtaining through PAP (Amgen) 6 mL 3 3 06/19/20 23 Discontinued(Re fill) Ozempic (1 MG/DOSE) 4 MG/3ML Subcutaneous Solution Pen-injector (Semaglutide (1 MG/DOSE))Indicati ons:Type 2 diabetes mellitus with hemoglobin A1c goal of less than 8.0% ([facility]) Inject 1 mg under the skin once a week. Until 2mg available 3 mL 1 3 05/13/20 23 Discontinued Hospital, Clinic, or Other Facility Administered [...] has been better controlled recently. Monitor using [employer] Cindy. Hypertensive heart and kidne y disease [...] yrs 01/04/2018,08/03/2017,07/03 Pneumococcal Conjugate Vacci ne, 20-valent (Cehevlm27) 06/09/2022 Pneumococcal Polysaccharide PPV23 (Pneumovax) 03/06/2020 Seasonal Influenza, PF, 6 M & above, IM , (FluLaval or Fluzone) 04/01/2023,04/27/2022,03/21/2021,04/18,07/11/2019,08/18/2017 Seasonal Influenza, Split, I IV3, With Preserve, Inj 04/05/2016 TDAP (age 10 and older)(Boostrix) 12/29/2016 Zoster Vaccine Recombinant (Shingrix) 05/29/2020 ,01/27/2020 documented as of this encounter Social History Tobacco Use Types Packs/Day Years Used Date Smoking Tobacco: Former Cigarettes 2 13 1 975 1987 Smokeless Tobacco: Never Alcohol Use Standard [...] encounter Miscellaneous Notes * Addendum Note - Kaylynn Rapp RPh - 06/19/2023 11:22 AM EST Addended by: KAYLYNN RAPP on: 06/19/2023 11:22 AM Modules accepted: Orders * Telephone Encounter - Kaylynn Rapp RPh - 06/19/2023 11:13 AM EST Pt approved for HW nafisa rather than [employer] PAP program. [facility] Card ID:[id number] Group: [id number] BIN: [id number] PCN: [id number] New Rx sent to [facility] to they can fill with HW nafisa info. Called patient and made aware. Provided [facility] phone number for refills Kaylynn Bueno Clinical Pharmacist Cardiology 06/19/2023,11:14 AM * Telephone Encounter - Kaylynn Rapp RPh - 05/12/2023 9:49 AM EST Noted, if there is a provider portion that needs filled out, please email to me Additionally, I believe nafisa for hypercholesteremia is re-open. May be easier to enroll pt in that if needed Kaylynn Bueno Clinical Pharmacist Cardiology 05/12/2023,9:49 AM * Telephone Encounter - Ya Bertrand OSA - 05/11/2023 2:27 PM EST Spoke with Tony he is faxing over the Application he filled out from [employer] he said tomorrow or Wendesday he will fax it [employer] mailed it to him to fill out once I get it will fax it over to [employer] for re-enrollment spoke with John he is approved from 12/23/2022 - 07/05/2023. CHAPINCITO Schumacher MEDICATION JAR CAPPER PHONE : [phone] FAX: [phone] 05/11/2023,2:30 PM * Telephone Encounter - Kaylynn Rapp RPh - 05/01/2023 4:26 PM EDT Received fax from [employer] patient due for 2023 re-enrollment of Elmo. Applications will be accepted starting 04/24/23 Please help patient reapply documented in this encounter Plan of Treatment Upcoming Encounters Date Type Department Care Team (Late st Contact Info) Description 06/19/2023 1:30 PM EST Office Visit Nephrology [address] [place] [address] Luisa Ching PA-C [address] [place] [address] 06/24/2023 3:00 PM EST Nutrition Services [facility], [facility] [address] [facility] [place] [address] Mery Calderon, RDN [address] [facility] [place] [address] 06/26/2023 8:30 AM EST Home Visit [facility], [facility] 132 [facility] [place] [address] [place], ANNE MARIE 132 [facility] [place] [address] 07/08/2023 11:00 AM EST Telemedicine Pharmacy, [facility] [address] [place] [address] Pharmacist1, [facility] [address] [place] [address] 07/14/2023 9:30 AM EST Telemedicine Cardiology [facility] 400 [facility] [place] [address] [facility] 400 [facility] [place] [address] 07/22/2023 10:00 AM EST Nurse Only Ancillary [address] [place] [address] [place], Nurse [address] [place] [address] 07/22/2023 3:00 PM EST Telemedicine [facility] [place], [facility] [address] [place] [address] Sam Gage PA-C [address] [place] [address] Griselda Chong [address] [place] [address] 08/06/2023 10:00 AM EST Office Visit Cardiology, [facility] [address] [place] [address] Evita Brennan CRNP [address] [place] [address] 10/06/2023 2:10 PM EDT Office Visit Family Medicine [address] [place] [phone] Bárbara Rios[address] [place] [address] 10/27/2023 8:30 AM EDT Office Visit Sleep Disorders [facility] [place] [phone] Lindsey Sheikh CRNP 132 [facility] [place] [address] Scheduled Procedures Name Priority Associated Diagnoses Date/Ti [...] this encounter Medical Devices Implanted Type Area Forging Die Sinker Device Identifier Shelf Expiration Date Model / Serial / Lot Lens Intraoc 21.0 - [id number] - [id number] Implanted:Qty: 1 on 01/22/2017 by Cheko Mcnamara MD at [facility] Right: Eye [employer]OMB 08/05/2021 [id number] / [id number] / [id number] Lens Intraoc 21.5 - [id number] - [id number] Implanted:Qty: 1 on 02/03/2017 by Cheko Mcnamara MD at OR [facility] Left: Eye BAUSCH & LOMB 09/02/2021 [id number] / [id number] / [id number] documented as of this encounter Visit Diagnoses Diagnosis Dyslipidemia, goal LDL below 100 Other and unspecified hyperlipidemia Mixed dyslipidemia Mixed hyperlipidemia documented in this [...] and were consensually agreed upon. Care Teams Furnace Charger Relationship Specialty Start Date End Date Bárbara Rios DO [address] [place] [address] [place] [phone] PCP - General Internal Medicine 08/16/21 documented as of this encounter
--- OUTSIDE RECORDS SUMMARY | 2023-10-20 23:02 | External Medical Summary | Summary of Care ---
Author Name Unknown Organization [facility] Address [address] [facility] [place] [address] Phone [phone] Care Team Providers Care Software Consultant Name Role Phone Bárbara Rios Primary Care Provider [phone] Reason for Visit * Reason Onset Date Comments Patient Assistance Program 05/01/2023 Encounter Details Date Type Department Care Team (Late st Contact Info) Description 05/01/2023 Telephone Cardiology, [facility] 132 [facility] [place] [address] [facility] 21 [facility] [place] [phone] Patient Assistance Program Allergies Active Allergy Reactions Criticality Noted Date Comments Other Allergy (See Comments) Rash Low 10/13/2022 1+ cocamidopropyl betaine Sglt2 Inhibitors Other (Please comment) High 09/04/2020 Genital infection Sulfa Antibiotics Rash 10/15/2016 documented as of this encounter (statuses as of 06/18/2023) Medications Medication Sig Dispensed Refills Start Date [...] when flaring 60 g 0 3 Active Evolocumab 140 MG/ML Subcutaneous Solution Auto-injector (Repatha SureClick)Indicati ons:Dyslipidemia, goal LDL below 100,Mixed dyslipidemia Inject 140 mg under the skin every 14 days. Obtaining through PAP (Amgen) 6 mL 3 3 Active Tresiba FlexTouch 200 UNIT/ML Subcutaneous [...] 32 UNITS WITH DINNER PLUS CORRECTION PER [facility] OR DIRECTED UP TO 120 [...] 3 Active Torsemide 20 MG Oral Tablet (Demadex)Indicatio [...] a week. 9 mL 3 3 Active Renbu-7-nlaq Ethyl Esters 1 GM Oral Capsule (Lovaza) [...] 180 Capsule 1 3 04/27/20 24 Active Triamcinolone Acetonide 0.1 % External Ointment (Aristocort)Indica tions:Allergic dermatitis due to other chemical product Apply 2x daily (or more if itchy instead of scratching) to rash on scalp/trunk/arms and other areas rash appears until resolved 454 g 0 3 05/13/20 23 Discontinued Ozempic (1 MG/DOSE) 4 MG/3ML Subcutaneous Solution Pen-injector (Semaglutide (1 MG/DOSE))Indicatio ns:Type 2 diabetes mellitus with hemoglobin A1c goal of less than 8.0% ([facility]) Inject 1 mg under the skin once [...] as of this encounter (statuses as of 06/18/2023) Active Problems Problem Noted Date Diagnosed Date [...] has been better controlled recently. Monitor using [employer] Cindy. Hypertensive heart and kidne y disease [...] as of this encounter (statuses as of 06/18/2023) Resolved Problems Problem Noted Date Diagnosed Date [...] as of this encounter (statuses as of 06/18/2023) Immunizations Name Administration Dates Next Due COVID-19 mRNA, LNP-s, No Pre serve, 2-Dose Series (Moderna) 12/10/2020,11/12/2020 Hepatitis B, 20+ yrs 01/04/2018,08/03/2017,07/03 Pneumococcal Conjugate Vacci ne, 20-valent (Fyrwllk22) 06/09/2022 Pneumococcal Polysaccharide PPV23 (Pneumovax) 03/06/2020 Seasonal [...] encounter Miscellaneous Notes * Telephone Encounter - Kaylynn Rapp RPh - 05/12/2023 9:49 AM EST Noted, if there is a provider portion that needs filled out, please email to me Additionally, I believe HW nafisa for hypercholesteremia is re-open. May be easier to enroll pt in that if needed Kaylynn Rapp Pharm D Clinical Pharmacist Cardiology 05/12/2023,9:49 AM * Telephone Encounter - Ya Bertrand OSA - 05/11/2023 2:27 PM EST Spoke with Tony he is faxing over the Application he filled out from [employer] he said tomorrow or Wendesday he will fax it [employer] mailed it to him to fill out once I get it will fax it over to [employer] for re-enrollment spoke with John he is approved from 12/23/2022 - 07/05/2023. CHAPINCITO Schumacher MEDICATION ARCHITECTURAL PRACTICE MANAGER PHONE : [phone] FAX: [phone] 05/11/2023,2:30 PM * Telephone Encounter - Kaylynn Rapp RPh - 05/01/2023 4:26 PM EDT Received fax from [employer] patient due for 2023 re-enrollment of Elmo. Applications will be accepted starting 04/24/23 Please help patient reapply documented in this encounter Plan of Treatment Upcoming Encounters Date Type Department Care Team (Late st Contact Info) Description 06/19/2023 1:30 PM EST Office Visit Nephrology [address] [place] [address] Luisa Ching PA-C 200 [facility] [place] [address] 06/24/2023 3:00 PM EST Nutrition Services [facility], [facility] 1000 [address] [facility] [place] [address] Mery Calderon RDN [address] [facility] [place] [address] 06/26/2023 8:30 AM EST Home Visit [facility], [facility] 132 [facility] [place] [address] [place], ANNE MARIE [address] [place] [address] 07/08/2023 11:00 AM EST Telemedicine Pharmacy, [facility] [place] [address] [place] [address] Pharmacist1, [facility] [address] [place] [address] 07/14/2023 9:30 AM EST Telemedicine Cardiology [facility] [place] [address] [place] [address] [facility] [address] [place] [address] 07/22/2023 10:00 AM EST Nurse Only Ancillary [address] [place] [address] [place], Nurse [address] [place] [address] 07/22/2023 3:00 PM EST Telemedicine [facility], [facility] 132 [facility] [place] [address] Sam Gage PA-C 132 [facility] [place] [address] Griselda Chong [address] [place] [address] 08/06/2023 10:00 AM EST Office Visit Cardiology, [facility] 132 [facility] [place] [address] Evita Brennan CRNP 132 [facility] [place] [address] 10/06/2023 2:10 PM EDT Office Visit Family Medicine [address] [place] [phone] Bárbara Rios, [address] [place] [address] 10/27/2023 8:30 AM EDT Office Visit Sleep Disorders [facility] [address] [place] [phone] Lindsey Sheikh CRNP [address] [place] [address] Scheduled Procedures Name Priority Associated Diagnoses Date/Ti [...] encounter Medical Devices Implanted Type Area Certified Pest Control Technician Device Identifier Shelf Expiration Date Model / Serial / Lot Lens Intraoc 21.0 - [id number] - [id number] Implanted:Qty: 1 on 01/22/2017 by Cheko Mcnamara MD at OR [facility] Right: Eye [employer]USCH [employer] LOMB 08/05/2021 [id number] / [id number] / [id number] Lens Intraoc 21.5 - [id number] - [id number] Implanted:Qty: 1 on 02/03/2017 by Cheko Mcnamara MD at OR [facility] Left: Eye BAUSCH & LOMB 09/02/2021 [id number] / [id number] / [id number] documented as of this encounter Advance Directives [...] and were consensually agreed upon. Care Teams Software Consultant Relationship Specialty Start Date End Date Bárbara Rios DO [address] [place] [address] [place] [address] PCP - General Internal Medicine 08/16/21 documented as of this encounter
--- OUTSIDE RECORDS SUMMARY | 2023-10-20 23:02 | External Medical Summary | Summary of Care ---
Author Name Unknown Organization [facility] Address [address] [facility] [place] [address] Phone [phone] Care Team Providers Care Typewriters Functional Tester Name Role Phone Bárbara Rios Primary Care Provider [phone] Reason for Visit * Reason Onset Date Comments [facility]: Maintenance 06/18/2023 Encounter Details Date Type Department Care Team (Late st Contact Info) Description 06/18/2023 11:45 AM EST Scheduled Telephone [facility], [facility] [address] [email or web address] [place] [address] Coordinator, [facility] [address] [place] [address] Allergies Active Allergy Reactions Criticality Noted Date [...] 32 UNITS WITH DINNER PLUS CORRECTION PER [facility] OR DIRECTED UP TO [...] a week. 9 mL 3 04/09/2023 Active Jgccb-5-mtmw Ethyl Esters 1 GM Oral Capsule (Lovaza) Take 2 Capsules by mouth in the morning and 2 Capsules before bedtime. 360 Capsule 1 04/14/2023 Active Carvedilol 25 MG Oral Tablet (Coreg)Indications: HTN, goal below 140/90 TAKE ONE TABLET BY MOUTH EVERY MORNING AND TAKE ONE TABLET BY MOUTH BEFORE BEDTIME 200 Tablet 3 04/19/2023 4 Active Potassium Chloride Gavioat ER 10 MEQ Oral Tablet Extended ReleaseIndications: [...] yrs 01/04/2018,08/03/2017,07/03 Pneumococcal Conjugate Vacci ne, 20-valent ([id number]) 06/09/2022 Pneumococcal Polysaccharide PPV23 (Pneumovax) 03/06/2020 Seasonal [...] Encounter - Mary Jane Moser RN - 06/18/2023 9:26 AM EST Images from the original note were not included. [facility] Telephonic Nurse Follow-Up Call [facility] Subprogram: Focused Care Management (3-9 months) [...] 3 tab to morning dose of Torsemide 2nd DTP in 2 weeks, start 06/16 Subjective: Condition Status: [facility] [[email or web address] Current Concerns: [place], message left for callback Disposition: Issue resolved. All appropriate follow up scheduled. Future Visits Scheduled: Future Appointments-next 60 days Date/Time Provider Specialty Dept Phone 06/18/2023 11:45 AM Morales Ohara [facility] [phone] 06/19/2023 1:30 PM (Arrive by 1:15 PM) Luisa Ching PA-C Nephrology [phone] 06/24/2023 3:00 PM Mery Calderon RDN [facility] [phone] 06/26/2023 8:30 AM Love Stevens RN [facility] [phone] 07/08/2023 11:00 AM Pharmacist1, [facility] [phone] 07/14/2023 9:[facility] [phone] 07/22/2023 10:00 AM Nurse [place] [facility] Ancillary [phone] 07/22/2023 3:00 PM Griselda Chong Community Health Director Asset; Sam Gage PA- C [facility] [phone] 08/06/2023 10:00 AM (Arrive by 9:45 AM) Evita Brennan CRNP Cardiology [phone] 10/06/2023 2:10 PM (Arrive by 1:55 PM) Bárbara Rios, Family Medicine [phone] 10/27/2023 8:30 AM (Arrive by 8:15 AM) Lindsey Sheikh CRNP Sleep Disorders [phone] Mary Jane Moser RN documented in this encounter Plan of Treatment Upcoming Encounters Date Type Department Care Team (Late st Contact Info) Description 06/19/2023 1:30 PM EST Office Visit Nephrology [address] [place] [address] Luisa Ching PA-C [address] [place] [address] 06/24/2023 3:00 PM EST Nutrition Services [facility], [facility] [address] [facility] [place] [address] Mrey Calderon, RDN [address] [facility] [place] [address] 06/26/2023 8:30 AM EST Home Visit [facility], [facility] [address] [facility] [place] [address] Love Stevens, ANNE MARIE 132 [facility] [place] [address] 07/08/2023 11:00 AM EST Telemedicine Pharmacy, [facility] [address] [place] [address] Pharmacist1, [facility] [address] [place] [address] 07/14/2023 9:30 AM EST Telemedicine Cardiology [facility] [address] [facility] [place] [address] [facility] [address] [facility] [place] [address] 07/22/2023 10:00 AM EST Nurse Only Ancillary [address] [place] [address] [place], Nurse [address] [place] [address] 07/22/2023 3:00 PM EST Telemedicine [facility], [facility] [address] [place] [address] Sam Gage PA-C 132 [place] [address] Griselda Chong [address] [place] [address] 08/06/2023 10:00 AM EST Office Visit Cardiology, [facility] [address] [place] [address] Evita Brennan CRNP [address] [place] [address] 10/06/2023 2:10 PM EDT Office Visit Family Medicine [address] [place] [phone] Bárbara Rios[address] [place] [address] 10/27/2023 8:30 AM EDT Office Visit Sleep Disorders [facility] [place] [phone] Lindsey Sheikh CRNP 132 [facility] [place] [address] Scheduled Procedures Name Priority Associated Diagnoses Date/Ti [...] this encounter Medical Devices Implanted Type Area Derrick Boat Runner Device Identifier Shelf Expiration Date Model / Serial / Lot Lens Intraoc 21.0 - [id number] - [id number] Implanted:Qty: 1 on 01/22/2017 by Cheko Mcnamara MD at OR [facility] Right: Eye [employer]OM[employer] 08/05/2021 [id number] / [id number] / [id number] Lens Intraoc 21.5 - [id number] - [id number] Implanted:Qty: 1 on 02/03/2017 by Cheko Mcnamara MD at OR [facility] Left: Eye BAUSCH [employer] LOMB 09/02/2021 [id number] / [id number] / [id number] documented as of this encounter Advance Directives [...] and were consensually agreed upon. Care Teams Typewriters Functional Tester Relationship Specialty Start Date End Date Bárbara Rios DO [address] [place] [address] [place] [address] PCP - General Internal Medicine 08/16/21 documented as of this encounter
--- OUTSIDE RECORDS SUMMARY | 2023-10-20 23:02 | External Medical Summary | Summary of Care ---
Author Name Unknown Organization [facility] Address [address] [facility] [place] [address] Phone [phone] Care Team Providers Care Herpetologist Name Role Phone Bárbara Rios Primary Care Provider [phone] Reason for Visit * Reason Onset Date Comments [facility]: Maintenance 06/16/2023 Encounter Details Date Type Department Care Team (Late st Contact Info) Description 06/16/2023 Telephone [facility], [facility] [address] [facility] [place] [address] [facility], Nurse [facility] [address] [facility] [place] [address] [facility]: Maintenance Allergies Active Allergy [...] UNITS WITH DINNER PLUS CORRECTION PER [facility] OR DIRECTED UP TO [...] a week. 9 mL 3 04/09/2023 Active Topou-6-tfdi Ethyl Esters 1 GM Oral Capsule (Lovaza) [...] yrs 01/04/2018,08/03/2017,07/03 Pneumococcal Conjugate Vacci ne, 20-valent ([id number]) 06/09/2022 Pneumococcal Polysaccharide PPV23 (Pneumovax) 03/06/2020 Seasonal [...] encounter Miscellaneous Notes * Telephone Encounter - Amador Hernandez PA-C - 06/16/2023 4:06 PM EST [facility] Remote Medical Command Phone Encounter [...] call scheduled Route to RNCM (Registered Nurse Attending Ambulatory Care) and Advance Practitioner documented in this encounter Plan of Treatment Upcoming Encounters Date Type Department Care Team (Late st Contact Info) Description 06/17/2023 12:30 PM EST Scheduled Telephone [facility], [facility] 132 [facility] [place] [address] Coordinator, [facility] [place] [address] 06/19/2023 1:30 PM EST Office Visit Nephrology [address] [place] [address] Luisa Ching PA-C 200 [facility] [place] [address] 06/24/2023 3:00 PM EST Nutrition Services [facility], [facility] [address] [facility] [place] [address] Mery Calderon, VIVIANAN [address] [facility] [place] [address] 06/26/2023 8:30 AM EST Home Visit [facility], [facility] [place] [address] Love Stevens, ANNE MARIE [address] [facility] [place] [address] 07/08/2023 11:00 AM EST Telemedicine Pharmacy, [facility] 200 [facility] [place] [address] Pharmacist1, [facility] 200 [place] [address] 07/14/2023 9:30 AM EST Telemedicine Cardiology [place] [facility] [facility] [place] [address] [facility] [address] [place] [place] [address] 07/22/2023 10:00 AM EST Nurse Only Ancillary [address] [place] [address] [place], Nurse Annual [address] [place] [address] 07/22/2023 3:00 PM EST Telemedicine [facility] [place], [facility] [address] [place] [address] Sam Gage PA-C [address] [place] [address] Griselda Chong, Community [address] [place] [address] 08/06/2023 10:00 AM EST Office Visit Cardiology, [facility] [address] [place] [address] Evita Brennan CRNP [address] [place] [address] 10/06/2023 2:10 PM EDT Office Visit Family Medicine [address] [place] [phone] Bárbara Rios[address] [place] [address] 10/27/2023 8:30 AM EDT Office Visit Sleep Disorders C[facility] [address] [place] [phone] Lindsey Sheikh CRNP [address] [facility] [place] [address] Scheduled Procedures Name Priority Associated Diagnoses Date/Ti me ESOPHAGOGASTRODUODENOSCOPY ( EGD), FLEXIBLE, TRANSORAL, DIAGNOSTIC Recall Arreola's esophagus with dysplasia COLONOSCOPY FLEXIBLE PROXIMAL DIAGNOSTIC Recall History of colon polyps Health Maintenance Due Date Last Done Comments HIV Screening 1974 Alpha-1 Antitrypsin 1977 COLONOSCOPY-EVERY 5 YRS AGES 18-100 01/01/2023 01/01/2018, 01/01/2018 COVID-19 Vaccine (3 - 2022- season) 2023 12/10/2020, 11/12/2020 O2 ASSESSMENT COMPLETED [...] this encounter Medical Devices Implanted Type Area Grain Scooper Device Identifier Shelf Expiration Date Model / Serial / Lot Lens Intraoc 21.0 - [id number] - [id number] Implanted:Qty: 1 on 01/22/2017 by Cheko Mcnamara MD at OR [facility] Right: Eye [employer]USCH [employer] LOMB 08/05/2021 [id number] / [id number] / [id number] Lens Intraoc 21.5 - [id number] - [id number] Implanted:Qty: 1 on 02/03/2017 by Cheko Mcnamara MD at OR [facility] Left: Eye BAUSCH & LOMB 09/02/2021 [id number] / [id number] / [id number] documented as of this encounter Advance Directives [...] and were consensually agreed upon. Care Teams Herpetologist Relationship Specialty Start Date End Date Bárbara Rios DO [address] [place] [address] [place] [address] PCP - General Internal Medicine 08/16/21 documented as of this encounter
--- OUTSIDE RECORDS SUMMARY | 2023-10-20 23:03 | External Medical Summary ---
Author Name Unknown Address Unknown Organization K01:LABORATORY [facility] - [address] [place] [address] Laboratory Report Ordering Provider Test Date Status BROCK HINSON 06/11/2023 11:11:17 Final Observation Date Value Abnormality Reference (Units ) Status Hemoglobin 06/11/2023 11:11:17 12.9 Below low normal 14 .0-16.8 (g/dL) Final Performing Location LABORATORY [facility] - [address] [place] [address]
--- OUTSIDE RECORDS SUMMARY | 2023-10-20 23:03 | External Medical Summary | Summary of Care ---
Author Name Unknown Organization [facility] Address [address] [facility] [place] [address] Phone [phone] Care Team Providers Care Anatomic Pathology Manager Name Role Phone Rios Bárbara Sneed Primary Care Provider Reason for Visit * Reason Comments Outpatient Testing Encounter Details Date Type Department Care Team (Late st Contact Info) Description 06/11/2023 11:10 AM EST Laboratory Laboratory [address] [place] [phone] [place] [address] Hypertensive 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 ([facility]); Type 2 diabetes mellitus with hemoglobin A1c goal of less than 8.0% ([facility]); 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 disease ([facility]) Allergies Active Allergy Reactions Criticality Noted Date Comments Other Allergy (See Comments) Rash Low 10/13/2022 1+ cocamidopropyl betaine Sglt2 Inhibitors Other (Please comment) High 09/04/2020 Genital infection Sulfa Antibiotics Rash 10/15/2016 documented as of this encounter (statuses as of 06/11/2023) Medications Medication Sig Dispensed Refills Start Date [...] UNITS WITH DINNER PLUS CORRECTION PER [facility] OR DIRECTED UP TO [...] a week. 9 mL 3 04/09/2023 Active Rencs-8-rdmy Ethyl Esters 1 GM Oral Capsule (Lovaza) [...] as of this encounter (statuses as of 06/11/2023) Active Problems Problem Noted Date Diagnosed Date [...] has been better controlled recently. Monitor using [employer]. Hypertensive heart and kidne y disease [...] as of this encounter (statuses as of 06/11/2023) Resolved Problems Problem Noted Date Diagnosed Date [...] as of this encounter (statuses as of 06/11/2023) Immunizations Name Administration Dates Next Due COVID-19 mRNA, LNP-s, No Pre serve, 2-Dose Series (Moderna) 12/10/2020,11/12/2020 Hepatitis B, 20+ yrs 01/04/2018,08/03/2017,07/03 Pneumococcal Conjugate Vacci ne, 20-valent ([id number]) 06/09/2022 Pneumococcal Polysaccharide PPV23 (Pneumovax) 03/06/2020 SEASONAL INFLUENZA, PF, 6 M & Above, IM , (FLULAVAL or FLUZONE) 04/01/2023,04/27/2022,03/21/2021,04/18,07/11/2019,08/18/2017 Seasonal Influenza, Split, I IV3, With [...] 06/19/2023 1:30 PM EST Office Visit Nephrology [address] [place] [address] Luisa Ching PA-C [address] [place] [address] 06/24/2023 3:00 PM EST Nutrition Services [facility], [facility] [address] [facility] [place] [address] Mery Calderon RDN [address] [facility] [place] [address] 06/26/2023 8:30 AM EST Home Visit [facility], [facility] 132 [facility] [place] [address] Love Stevens, RN 132 [facility] [place] [address] 07/08/2023 11:00 AM EST Telemedicine Pharmacy, [facility] [address] [place] [address] Pharmacist1, [facility] [address] [place] [address] 07/14/2023 9:30 AM EST Telemedicine Cardiology Heather Stephens [address] [place] [address] [facility] Card[facility] [address] [place] [address] 07/22/2023 10:00 AM EST Nurse Only Ancillary [address] [place] [address] [place], Nurse [address] [place] [address] 07/22/2023 3:00 PM EST Telemedicine [facility], [facility] 132 [place] [address] Sam Gage PA-C [address] [place] [address] Griselda Chong, Community Health Medical Records Auditor [address] [place] [address] [place] [address] 08/06/2023 10:00 AM EST Office Visit Cardiology, [facility] 132 [place] [address] Evita Brennan CRNP [address] [address] 10/06/2023 2:10 PM EDT Office Visit Family Medicine [address] [place] [phone] Bárbara Rios, [address] [place] [address] 10/27/2023 8:30 AM EDT Office Visit Sleep Disorders Ctr [facility] 132 [place] [phone] Lindsey Sheikh CRNP [address] [place] [address] Pending Results Name Type Priority Associated Diagnoses Date /Time HEMOGLOBIN A1C Lab Routine Type 2 diabetes mellitus with hemoglobin A1c goal of less than 8.0% ([facility]) 06/11/2023 11:11 AM EST HGB Lab Routine 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 disease ([facility]) 06/11/2023 11:11 AM EST URINALYSIS WITH MICROSCOPIC EXAM Lab Routine 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 disease ([facility]) 06/11/2023 11:11 AM EST ALBUMIN / CREATININE RATIO, URINE Lab Routine 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 disease ([facility]) 06/11/2023 11:11 AM EST RENAL FUNCTION PANEL Lab Routine 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 disease ([facility]) 06/11/2023 11:11 AM EST Scheduled Procedures Name Priority Associated [...] 09/02/2022, 0 08/16/2021, 05/29/2020, Additional history exists Albumin/Creatinine Ratio 09/23/2023 023, 09/02/2022, 05/22/2022, Additional history exists HbA1c 09/30/2023 04/01/2023, 12/04, 09/02/2022, Additional history exists GFR 10/27/2023 04/27/2023, 04/05, 04/01/2023, Additional history exists Diabetic Eye Exam 01/01/2024 12/31/2022, , 05/28/2021, Additional history exists Arreola's Esophagus Surveilance 06/16/2025 [...] this encounter Medical Devices Implanted Type Area Sailing Master Device Identifier Shelf Expiration Date Model / Serial / Lot Lens Intraoc 21.0 - [id number] - [id number] Implanted:Qty: 1 on 01/22/2017 by Cheko Mcnamara MD at OR [facility] Right: Eye BAUSCH [employer] LOMB 08/05/2021 [id number] / [id number] / [id number] Lens Intraoc 21.5 - [id number] - [id number] Implanted:Qty: 1 on 02/03/2017 by Cheko Mcnamara MD at OR [facility] Left: Eye BAUSCH & LOMB 09/02/2021 [id number] / [id number] / [id number] documented as of this encounter Visit Diagnoses Diagnosis Hypertensive 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 ([facility]) Type 2 diabetes mellitus with hemoglobin A1c goal of less than 8.0% ([facility]) Hypertensive heart and kidney disease with [...] and were consensually agreed upon. Care Teams Anatomic Pathology Manager Relationship Specialty Start Date End Date Bárbara Rios DO [address] [place] [address] [place] [phone] PCP - General Internal Medicine 08/16/21 documented as of this encounter
--- OUTSIDE RECORDS SUMMARY | 2023-10-20 23:03 | External Medical Summary ---
Author Name Unknown Address Unknown Organization K01:[facility] - [address] [facility]. [facility] [address] Laboratory Report Ordering Provider Test Date Status ANEL HINSONITIS 06/11/2023 11:11:17 Final Observation Date Value Abnormality Reference (Units ) Status Color of Urine by Auto 06/11/2023 11:11:17 Yellow Colorless, Light Yellow, Yellow, Dark Yellow Final Clarity, Urine 06/11/2023 11:11:17 Clear Clear Final Glucose [Mass/volume] in Urine by Automated test strip 06/11/2023 11:11:17 Negative Negative (mg/dL) Final Bilirubin.total [Presence] in Urine by Automated test strip 06/11/2023 11:11:17 Negative Negative Final Ketones [Mass/volume] in Urine by Automated test strip 06/11/2023 11:11:17 Negative Negative (mg/dL) Final Specific gravity, Urine 06/11/2023 11:11:17 1.017 1.003-1.030 Final Hemoglobin [Presence] in Urine by Automated test strip 06/11/2023 11:11:17 Negative Negative Final pH, Urine 06/11/2023 11:11:17 6.0 5.0-7.5 (Units) Final Protein [Mass/volume] in Urine by Automated test strip 06/11/2023 11:11:17 30 Abnormal Negative (mg/dL) Final Urobilinogen [Mass/volume] in Urine by Automated test strip 06/11/2023 11:11:17 Normal Normal (mg/dL) Final Nitrite [Presence] in Urine by Automated test strip 06/11/2023 11:11:17 Negative Negative Final Leukocyte esterase [Presence] in Urine by Automated test strip 06/11/2023 11:11:17 Negative Negative Final RBC, Urine 06/11/2023 11:11:17 0-2 0-2 (/HPF) Final WBC, Urine 06/11/2023 11:11:17 0-2 0-2 (/HPF) Final Bacteria [#/area] in Urine sediment by Microscopy high power field 06/11/2023 11:11:17 0-25 0-25 (/HPF) Final Hyaline casts, Urine 06/11/2023 11:11:17 5-9 Abnormal None (/LPF) Final Performing Location [facility] - [facility] [address]. [facility] [address]
--- OUTSIDE RECORDS SUMMARY | 2023-10-20 23:03 | External Medical Summary | Summary of Care ---
Author Name Unknown Organization [facility] Address [address] [address] Phone [phone] Care Team Providers Care Onion Farmer Name Role Phone Bárbara Rios Primary Care Provider [phone] Reason for Visit * Reason Onset Date Comments [facility]: Maintenance 06/13/2023 Encounter Details Date Type Department Care Team (Late st Contact Info) Description 06/13/2023 1:00 PM EST Scheduled Telephone [facility], [facility] [address] [place] [address] [facility], Nurse [facility] [address] [place] [address] Allergies Active Allergy Reactions Criticality Noted Date Comments Other Allergy (See Comments) Rash Low 10/13/2022 1+ cocamidopropyl betaine Sglt2 Inhibitors Other (Please comment) High 09/04/2020 Genital infection Sulfa Antibiotics Rash 10/15/2016 documented as of this encounter (statuses as of 06/13/2023) Medications Medication Sig Dispensed Refills Start Date [...] 32 UNITS WITH DINNER PLUS CORRECTION PER [facility] OR DIRECTED UP TO [...] a week. 9 mL 3 04/09/2023 Active Hyfpl-1-xqcn Ethyl Esters 1 GM Oral Capsule (Lovaza) [...] as of this encounter (statuses as of 06/13/2023) Active Problems Problem Noted Date Diagnosed Date [...] as of this encounter (statuses as of 06/13/2023) Resolved Problems Problem Noted Date Diagnosed Date [...] as of this encounter (statuses as of 06/13/2023) Immunizations Name Administration Dates Next Due COVID-19 mRNA, LNP-s, No Pre serve, 2-Dose Series (Moderna) 12/10/2020,11/12/2020 Hepatitis B, 20+ yrs 01/04/2018,08/03/2017,07/03 Pneumococcal Conjugate Vacci ne, 20-valent ([id number]) 06/09/2022 Pneumococcal Polysaccharide PPV23 (Pneumovax) 03/06/2020 SEASONAL [...] Notes * Telephone Encounter - Mary Jane Moesr RN - 06/13/2023 12:09 PM EST Images from the original note were not included. [facility] Telephonic Nurse Follow-Up Call [facility] Subprogram: Focused Care Management (3-9 months) Follow Up Call Type: Weekend Call Acute issue requiring follow-up call: Other: Followup weight gain Objective: 05/26/2023 11:41 AM 05/25/2023 7:51 AM [...] needs identified Medications: Current DTP: Other: Torsemide 80 mg x in AM , 40 mg in afternoon x 2 more days ( 06/12, 06/13, 06/14 ) Subjective: Condition Status: Improvement in symptoms but not at baseline Current Concerns: Spoke with patient. He has improvement in leg swelling and abdominal fullness. Still " a tiny bit" of swelling in LE's No worsening SOB, a little better then yesterday Tomorrow will be the last day of doubled Torsemide doses No current issues/concerns. Disposition: Weekend call scheduled Future Visits Scheduled: Future Appointments-next 60 days Date/Time Provider Specialty Dept Phone 06/13/2023 1:00 PM [facility], Nurse [facility] [phone] 06/14/2023 1:30 PM [facility], Nurse [facility] [phone] 06/19/2023 1:30 PM (Arrive by 1:15 PM) Luisa Ching PA-C Nephrology [phone] 06/24/2023 3:00 PM Mery Calderon RDN [facility] [phone] 06/26/2023 8:30 AM Love Stevens RN [facility] [phone] 07/08/2023 11:00 AM Pharmacist, [facility] [phone] 07/14/2023 9:30 AM Heather [facility] Cardiology Cardiology [phone] 07/22/2023 10:00 AM [place] Nurse [facility] [phone] 07/22/2023 3:00 PM Griselda [facility]am Machine Operator; Sam Gage PA- C [phone] 08/06/2023 10:00 AM (Arrive by 9:45 AM) Evita Brennan CRNP Cardiology [phone] 10/06/2023 2:10 PM (Arrive by 1:55 PM) Bárbara Rios, DO Family Medicine [phone] 10/27/2023 8:30 AM (Arrive by 8:15 AM) Lindsey Sheikh CRNP Sleep Disorders [phone] Mary Jane Moser, RN documented in this encounter Plan of Treatment Upcoming Encounters Date Type Department Care Team (Late st Contact Info) Description 06/14/2023 1:30 PM EST Scheduled Telephone [facility], [facility] [address] [facility] [place] [address] [facility], Nurse [facility] [address] [facility] [place] [address] 06/19/2023 1:30 PM EST Office Visit Nephrology [address] [place] [address] Luisa Ching PA-C 200 [facility] [place] [address] 06/24/2023 3:00 PM EST Nutrition Services [facility], [facility] [address] [facility] [place] [address] Mery Calderon, RDN [address] [facility] [place] [address] 06/26/2023 8:30 AM EST Home Visit [facility], [facility] 132 [facility] [place] [address] Love Stevens, ANNE MARIE 132 [facility] [place] [address] 07/08/2023 11:00 AM EST Telemedicine Pharmacy, [employer] 200 [facility] [place] [address] Pharmacist1, [facility] 200 [facility] [place] [address] 07/14/2023 9:30 AM EST Telemedicine Cardiology [place] [address] [place] [address] [place] [address] Heather [facility] Cardiology [address] [place] [place] [address] 07/22/2023 10:00 AM EST Nurse Only Ancillary [address] [place] [address] [place], Nurse [address] [place] [address] 07/22/2023 3:00 PM EST Telemedicine [facility], [facility] 132 [facility] [place] [address] Sam Gage PA-C 132 [facility] [place] [address] [place] [address] 08/06/2023 10:00 AM EST Office Visit Cardiology, [facility] [place] [address] Evita Brennan CRNP 132 [facility] [place] [address] 10/06/2023 2:10 PM EDT Office Visit Family Medicine [address] [place] [phone] Bárbara Rios [address] [place] [address] 10/27/2023 8:30 AM EDT Office Visit Sleep Disorders Ctr [facility] 132 [facility] [place] [phone] Lindsey Sheikh CRNP [address] [place] [address] Scheduled Procedures Name Priority Associated Diagnoses Date/Ti [...] this encounter Medical Devices Implanted Type Area Bridges And Buildings Supervisor Device Identifier Shelf Expiration Date Model / Serial / Lot Lens Intraoc 21.0 - [id number] - [id number] Implanted:Qty: 1 on 01/22/2017 by Cheko Mcnamara MD at OR [facility] Right: Eye [employer] 08/05/2021 [id number] / [id number] / [id number] Lens Intraoc 21.5 - [id number] - [id number] Implanted:Qty: 1 on 02/03/2017 by Cheko Mcnamara MD at OR [facility] Left: Eye [employer] 09/02/2021 [id number] / [id number] / [id number] documented as of this encounter Advance Directives [...] and were consensually agreed upon. Care Teams Onion Farmer Relationship Specialty Start Date End Date Bárbara Rios DO [address] [place] [address] [place] [address] PCP - General Internal Medicine 08/16/21 documented as of this encounter
--- OUTSIDE RECORDS SUMMARY | 2023-10-20 23:03 | External Medical Summary ---
Author Name Unknown Address Unknown Organization K01:[facility] [place] [address] [facility] [address] [place] [address] Laboratory Report Ordering Provider Test Date Status ANEL HINSONITIS 06/11/2023 11:11:17 Final Observation Date Value Abnormality Reference (Units ) Status BUN 06/11/2023 11:11:17 42 Above high normal 6-20 (mg/dL) Final Creatinine 06/11/2023 11:11:17 2.1 Above high normal 0.6-1.2 (mg/dL) Final Glomerular filtration rate/1.73 sq M.predicted [Volume Rate/Area] in Serum, Plasma or Blood by Creatinine-based formula (CKD-EPI) 06/11/2023 11:11:17 35 Below low normal >=60 (mL/min) Final eGFR is calculated based on the CKD-EPI 2020 equation SODIUM 06/11/2023 11:11:17 139 135-146 (m mol/L) Final Potassium 06/11/2023 11:11:17 4.0 3.5-5.1 (m mol/L) Final Cl 06/11/2023 11:11:17 104 98-107 (mm ol/L) Final CO2 06/11/2023 11:11:17 24 22-32 (mmo l/L) Final Anion gap 06/11/2023 11:11:17 11 7-15 (mmol /L) Final Glucose 06/11/2023 11:11:17 166 Above high normal 70 -120 (mg/dL) Final Calcium 06/11/2023 11:11:17 8.9 8.4-10.2 ( mg/dL) Final Albumin 06/11/2023 11:11:17 4.1 3.8-5.0 (g /dL) Final Phosphate 06/11/2023 11:11:17 4.0 2.5-4.8 (m g/dL) Final Performing Location [facility] [address] [facility] [address]
--- OUTSIDE RECORDS SUMMARY | 2023-10-20 23:03 | External Medical Summary | Summary of Care ---
Author Name Unknown Organization [facility] Address [address] [facility] [place] [address] Phone [phone] Care Team Providers Care Detective Precinct Name Role Phone Bárbara Rios Primary Care Provider Reason for Visit * Reason Onset Date Comments [facility]: Maintenance 06/12/2023 Encounter Details Date Type Department Care Team (Late st Contact Info) Description 06/12/2023 Telephone [facility], [facility] [address] [place] [facility] [place] [address] [facility], Nurse [facility] [address] [facility] [place] [address] [facility]: Maintenance Allergies Active Allergy Reactions Criticality Noted Date Comments Other Allergy (See Comments) Rash Low 10/13/2022 1+ cocamidopropyl betaine Sglt2 Inhibitors Other (Please comment) High 09/04/2020 Genital infection Sulfa Antibiotics Rash 10/15/2016 documented as of this encounter (statuses as of 06/12/2023) Medications Medication Sig Dispensed Refills Start Date [...] 32 UNITS WITH DINNER PLUS CORRECTION PER [facility] OR DIRECTED UP TO [...] a week. 9 mL 3 04/09/2023 Active Ibojk-7-gndv Ethyl Esters 1 GM Oral Capsule (Lovaza) [...] as of this encounter (statuses as of 06/12/2023) Active Problems Problem Noted Date Diagnosed Date [...] as of this encounter (statuses as of 06/12/2023) Resolved Problems Problem Noted Date Diagnosed Date [...] as of this encounter (statuses as of 06/12/2023) Immunizations Name Administration Dates Next Due COVID-19 mRNA, LNP-s, No Pre serve, 2-Dose Series (Moderna) 12/10/2020,11/12/2020 Hepatitis B, 20+ yrs 01/04/2018,08/03/2017,07/03 Pneumococcal Conjugate Vacci ne, 20-valent ([id number]) 06/09/2022 Pneumococcal Polysaccharide PPV23 (Pneumovax) 03/06/2020 SEASONAL [...] Telephone Encounter - Amador Hernandez PA-C - 06/12/2023 4:02 PM EST [facility] Remote Medical Command Phone Encounter Thank you for your assistance in the care of this patient today. Reviewed phone message. I agree w/ the advice offered via phone by our intake nursing team. Please continue DTP for another2 days. Please let me know via encounter or TT message if there is any change Thank you in advance, I appreciate it. Amador Hernandez PA-C * Telephone Encounter - Leanne Le LPN - 06/12/2023 11:34 AM EST Images from the original note were not included. [facility] Remote Patient Monitoring Able to contact patient: Trigger type: Abnormal reading(s): AMC (Advanced Monitored Caregiving): Scale: Trigger weight: 293 lbs; weight increased 4 lbs in 3 day(s) Trigger priority per AMC: high Patient takes diuretic medication: Yes, reviewed current diuretic use: Name of medication: torsemide 20 mg Dose: 40 mg in am and 20 mg in afternoon Frequency: morning and afternoon Symptom review: Edema: BLE SOB: with exertion Abdominal Fullness: feeling bloated Diet Reviewed: Yes. Patient has had any foods high in sodium: No Fluid Intake Reviewed: Yes. Patient is on a fluid restriction: Yes, restriction amount in milliliters or liters: 2 liters Adherent to restriction: Yes Self-Management Plan Reviewed: DTP (Diuretic Titration Protocol): Describe DTP: Name of medication(s): torsemide Dose: 20 mg Frequency: extra 40 mg in am and 20 mg in afternoon Used in past 2 weeks: No Risk [...] symptoms Additional risk selection justification: spoke with patient regarding AMC weight trigger. States heis feeling edema in BLE, sob with exertion and abdominal fullness. Did double his torsemide this morning and will double again this afternoon ( took 80 mg this am and will take 40 mg this afternoon) Please advise if patient should continue x's 2 more days Overall risk and identified plan: Moderate risk: Next day follow up call scheduled Route to RNCM (Registered Nurse Oil Field Technician) and Advance Practitioner Initiate DTP (Diuretic Titration Protocol) if applicable documented in this encounter Plan of Treatment Upcoming Encounters Date Type Department Care Team (Late st Contact Info) Description 06/13/2023 1:00 PM EST Scheduled Telephone [facility] [place], [place] [address] [place] [address] [place] [address] [place], Nurse [facility] [address] [place] [address] 06/19/2023 1:30 PM EST Office Visit Nephrology [address] [place] [address] Luisa Ching PA-C [address] [place] [address] 06/24/2023 3:00 PM EST Nutrition Services [facility], [facility] [address] [facility] [place] [address] Mery Calderon RDN [address] [facility] [place] [address] 06/26/2023 8:30 AM EST Home Visit [facility], [facility] 132 [facility] [place] [address] Love Stevens, ANNE MARIE [address] [place] [address] 07/08/2023 11:00 AM EST Telemedicine Pharmacy, [facility] [address] [place] [address] Pharmacist1, [facility] [address] [place] [address] 07/14/2023 9:30 AM EST Telemedicine Cardiology [facility] 400 [facility] [place] [address] [facility] [address] [facility] [place] [address] 07/22/2023 10:00 AM EST Nurse Only Ancillary [address] [place] [address] [place], Nurse [address] [place] [address] 07/22/2023 3:00 PM EST Telemedicine [facility], [facility] 132 [place] [address] Sam Gage PA-C [address] [place] [address] Griselda Chong, [address] [place] [address] 08/06/2023 10:00 AM EST Office Visit Cardiology, [facility] [address] [place] [address] Evita Brennan CRNP [address] [place] [address] 10/06/2023 2:10 PM EDT Office Visit Family Medicine [address] [place] [phone] Bár[address] R[address] [place] [address] 10/27/2023 8:30 AM EDT Office Visit Sleep Disorders [facility] [place] [phone] Lindsey Sheikh CRNP 132 [facility] [place] [address] Scheduled Procedures Name Priority Associated Diagnoses Date/Ti [...] this encounter Medical Devices Implanted Type Area Online Merchandising Manager Device Identifier Shelf Expiration Date Model / Serial / Lot Lens Intraoc 21.0 - [id number] - [id number] Implanted:Qty: 1 on 01/22/2017 by Cheko Mcnamara MD at OR [facility] Right: Eye [employer] 08/05/2021 [id number] / [id number] / [id number] Lens Intraoc 21.5 - [id number] - [id number] Implanted:Qty: 1 on 02/03/2017 by Cheko Mcanmara MD at OR [facility] Left: Eye [employer]CH [employer]OMB 09/02/2021 [id number] / [id number] / [id number] documented as of this encounter Advance Directives [...] and were consensually agreed upon. Care Teams Detective Precinct Relationship Specialty Start Date End Date Bárbara Rios DO [address] [place] [address] [place] [phone] PCP - General Internal Medicine 08/16/21 documented as of this encounter
--- OUTSIDE RECORDS SUMMARY | 2023-10-20 23:03 | External Medical Summary | Summary of Care ---
Author Name Unknown Organization [facility] Address [address] [facility] [place] [address] Phone [phone] Care Team Providers Care Scaffolding Helper Name Role Phone Bárbara Rios Primary Care Provider [phone] Reason for Visit * Reason Onset Date Comments [facility]: Maintenance 06/12/2023 Encounter Details Date Type Department Care Team (Late st Contact Info) Description 06/12/2023 Telephone [facility], [facility] [address] [place] [facility] [place] [address] [facility], Nurse [facility] [address] [facility] [place] [address] [facility]: Maintenance Allergies Active Allergy [...] 32 UNITS WITH DINNER PLUS CORRECTION PER [facility] OR DIRECTED UP TO [...] a week. 9 mL 3 04/09/2023 Active Hthii-2-ubcx Ethyl Esters 1 GM Oral Capsule (Lovaza) [...] yrs 01/04/2018,08/03/2017,07/03 Pneumococcal Conjugate Vacci ne, 20-valent ([id number]) 06/09/2022 Pneumococcal Polysaccharide PPV23 (Pneumovax) 03/06/2020 SEASONAL [...] Telephone Encounter - Shruti Marquez LPN - 06/12/2023 4:10 PM EST Pt is aware, verbalized understanding * Telephone Encounter - [...] call scheduled Route to RNCM (Registered Nurse Rn Eligibility) and Advance Practitioner Initiate DTP (Diuretic Titration Protocol) if applicable documented in this encounter Plan of Treatment Upcoming Encounters Date Type Department Care Team (Late st Contact Info) Description 06/13/2023 1:00 PM EST Scheduled Telephone [facility], [place] [facility] [address] [place] [address] Region, Nurse [facility] [employer] [facility] [address] [place] [address] [address] 06/14/2023 1:30 PM EST Scheduled Telephone [facility], [facility] [address] [facility] [place] [address] Region, Nurse [facility] [address] [facility] [place] [address] 06/19/2023 1:30 PM EST Office Visit Nephrology [address] [place] [address] Luisa Ching PA-C 200 [facility] [place] [address] 06/24/2023 3:00 PM EST Nutrition Services [facility], [facility] [address] [facility] [address] Mery Calderon, VIVIANAN [address] [facility] [place] [address] 06/26/2023 8:30 AM EST Home Visit [facility], [facility] 132 [place] [address] Love Stevens, ANNE MARIE [facility] [place] [address] 07/08/2023 11:00 AM EST Telemedicine Pharmacy, [employer] 200 [facility] [place] [address] Pharmacist1, [facility] [address] [facility] [place] [address] 07/14/2023 9:30 AM EST Telemedicine Cardiology [place] [address] [place] [address] [place] [address] Heather [facility] Cardiology [address] [place] [address] [place] [address] 07/22/2023 10:00 AM EST Nurse Only Ancillary [address] [place] [address] [place], Nurse Annual [address] [place] [address] 07/22/2023 3:00 PM EST Telemedicine [facility], [facility] 132 [facility] [place] [address] Sam Gage PA-C [facility] [place] [address] Griselda Chong [address] [place] [address] 08/06/2023 10:00 AM EST Office Visit Cardiology, [facility] 132 [facility] [place] [address] Evita Brennan CRNP 132 [facility] [place] [address] 10/06/2023 2:10 PM EDT Office Visit Family Medicine [address] [place] [phone] Bárbara Rios [address] [place] [address] 10/27/2023 8:30 AM EDT Office Visit Sleep Disorders Ctr [facility] 132 [facility] [place] [phone] Lindsey Sheikh CRNP [address] [place] [address] Scheduled Procedures Name Priority Associated Diagnoses Date/Ti [...] this encounter Medical Devices Implanted Type Area Drywall Finisher Device Identifier Shelf Expiration Date Model / Serial / Lot Lens Intraoc 21.0 - [id number] - [id number] Implanted:Qty: 1 on 01/22/2017 by Cheko Mcnamara MD at OR [facility] Right: Eye [employer] 08/05/2021 [id number] / [id number] / [id number] Lens Intraoc 21.5 - [id number] - [id number] Implanted:Qty: 1 on 02/03/2017 by Cheko Mcnamara MD at OR [facility] Left: Eye [employer]CH [employer]OMB 09/02/2021 [id number] / [id number] / [id number] documented as of this encounter Advance Directives [...] and were consensually agreed upon. Care Teams Scaffolding Helper Relationship Specialty Start Date End Date Bárbara Rios DO [address] [place] [address] [place] [phone] PCP - General Internal Medicine 08/16/21 documented as of this encounter
--- OUTSIDE RECORDS SUMMARY | 2023-10-20 23:03 | External Medical Summary ---
Author Name Unknown Address Unknown Organization K01:[facility] [place] [facility] [place] [address] Laboratory Report Ordering Provider Test Date Status ANEL HINSONKERWIN 06/11/2023 11:11:17 Final Normal: <30 mg/g creatinine< br/>High: 30-300 mg/g creatinine
Very High: >300 mg/g creatinine
Nephrotic: >2200 mg/g creatinine Observation Date Value Abnormality Reference (Units ) Status Albumin, Urine 06/11/2023 11:11:17 20.96 (mg/dL) Final Creatinine, Urine 06/11/2023 11:11:17 122 (mg/dL) Final Albumin/Creatinine [Mass Ratio] in Urine 06/11/2023 11:11:17 172 Above high normal <30 (mg/g Creat) Final Performing Location [facility] [place] [address] [place] [address]
--- OUTSIDE RECORDS SUMMARY | 2023-10-20 23:03 | External Medical Summary | Summary of Care ---
Author Name Unknown Organization [facility] Address [address] [facility] [place] [address] Phone [phone] Care Team Providers Care Hydroelectric Component Machinist Name Role Phone Bárbara Rios Primary Care Provider [phone] Reason for Visit * Reason Onset Date Comments [facility]: Maintenance 06/14/2023 Encounter Details Date Type Department Care Team (Late st Contact Info) Description 06/14/2023 1:30 PM EST Scheduled Telephone [facility], [facility] [address] [facility] [place] [address] [facility], Nurse [facility] 1000 [address] [facility] [place] [address] Allergies Active Allergy Reactions Criticality Noted Date [...] 32 UNITS WITH DINNER PLUS CORRECTION [facility] OR DIRECTED UP TO 120 [...] a week. 9 mL 3 04/09/2023 Active Otsqx-4-nxph Ethyl Esters 1 GM Oral Capsule (Lovaza) [...] yrs 01/04/2018,08/03/2017,07/03 Pneumococcal Conjugate Vacci ne, 20-valent ([id number]) 06/09/2022 Pneumococcal Polysaccharide PPV23 (Pneumovax) 03/06/2020 Seasonal [...] Telephone Encounter - Carolina Carey RN - 06/14/2023 3:12 PM EST Images from the original note were not included. [facility] Telephonic Nurse Follow-Up Call [facility] Subprogram: Focused Care Management (3-9 months) Follow Up Call Type: Weekend Call Acute issue requiring follow-up call: Heart Failure Exacerbation Objective: 05/26/2023 11:41 AM 05/25/2023 7:51 AM [...] EJECTION FRACTION" Remote Patient Monitoring: [facility] Scale: see below Oxygen Needs: NO CHANGE from baseline supplemental oxygen needs DME Needs: NO DME needs identified Medications: Current DTP: Double dose of Torsemide for 3 days Subjective: Condition Status: Improvement in symptoms but not at baseline Current Concerns: Spoke with Tony reports that his has been away and is not preparing his foods, spouse comes back tomorrow to prepare his meals, States he does not think he is following a No salt diet, still having swelling to his LE's, some abdominal fullness but it has improved, today is his thirda day of DTP. Will continue to monitor via [facility] scales. Disposition: Routed to [facility] and/or ising at Home Care Team for further advice Future Visits Scheduled: Future Appointments-next 60 days Date/Time Provider Specialty Dept Phone 06/19/2023 1:30 PM (Arrive by 1:15 PM) Luisa Ching PA-C Nephrology [phone] 06/24/2023 3:00 PM Mery Calderon RDN [facility] [phone] 06/26/2023 8:30 AM Love Stevens, RN [facility] [phone] 07/08/2023 11:00 AM Pharmacist1, [facility] [phone] 07/14/2023 9:30 AM [facility] Cardiology Cardiology [phone] 07/22/2023 10:00 AM Nurse [facility] Ancillary [phone] 07/22/2023 3:00 PM Griselda Chong [facility] Correspondence Clerk; Sam Gage PA- C [facility] [phone] 08/06/2023 10:00 AM (Arrive by 9:45 AM) Evita Brennan CRNP Cardiology [phone] 10/06/2023 2:10 PM (Arrive by 1:55 PM) Bárbara Rios DO Family Medicine [phone] 10/27/2023 8:30 AM (Arrive by 8:15 AM) Lindsey Sheikh CRNP Sleep Disorders [phone] Carolina Carey RN documented in this encounter Plan of Treatment Upcoming Encounters Date Type Department Care Team (Late st Contact Info) Description 06/17/2023 12:30 PM EST Scheduled Telephone [facility], [facility] 132 [facility] [place] [address] Coordinator, [facility] [place] [address] 06/19/2023 1:30 PM EST Office Visit Nephrology [address] [place] [address] Luisa Ching PA-C 200 [facility] [place] [address] 06/24/2023 3:00 PM EST Nutrition Services [facility], [facility] [address] [facility] [place] [address] Mery Calderon, VIVIANAN [address] [facility] [place] [address] 06/26/2023 8:30 AM EST Home Visit [facility], [facility] 132 [facility] [place] [address] Love Stevens RN 132 [facility] [place] [address] 07/08/2023 11:00 AM EST Telemedicine Pharmacy, [employer] [address] [place] [address] [address] [address] Pharmacist1, [facility] 200 [facility] [place] [address] 07/14/2023 9:30 AM EST Telemedicine Cardiology Heather Stephens 400 [place] [address] Heather [facility] 400 [facility] [place] [address] 07/22/2023 10:00 AM EST Nurse Only Ancillary [address] [place] [address] [place], Nurse [address] [place] [address] 07/22/2023 3:00 PM EST Telemedicine [facility], [facility] 132 [place] [address] Sam Gage PA-C 132 [place] [address] [place] [address] 08/06/2023 10:00 AM EST Office Visit Cardiology, [facility] 132 [place] [address] Evita Brennan CRNP 132 [place] [address] 10/06/2023 2:10 PM EDT Office Visit Family Medicine [address] [place] [phone] Bárbara Rios [address] [place] [address] 10/27/2023 8:30 AM EDT Office Visit Sleep Disorders Ctr [facility] 132 [place] [phone] Lindsey Sheikh CRNP [address] [place] [address] Scheduled Procedures Name Priority Associated Diagnoses Date/Ti [...] this encounter Medical Devices Implanted Type Area Electorate Officer Device Identifier Shelf Expiration Date Model / Serial / Lot Lens Intraoc 21.0 - [id number] - [id number] Implanted:Qty: 1 on 01/22/2017 by Cheko Mcnamara MD at OR [facility] Right: Eye BAUSCH & LOMB 08/05/2021 [id number] / [id number] / [id number] Lens Intraoc 21.5 - [id number] - [id number] Implanted:Qty: 1 on 02/03/2017 by Cheko Mcnamara MD at OR [facility] Left: Eye BAUSCH & LOMB 09/02/2021 [id number] / [id number] / [id number] documented as of this encounter Advance Directives [...] and were consensually agreed upon. Care Teams Hydroelectric Component Machinist Relationship Specialty Start Date End Date Bárbara Rios DO [address] [place] [address] [place] [address] PCP - General Internal Medicine 08/16/21 documented as of this encounter
--- OUTSIDE RECORDS SUMMARY | 2023-10-20 23:03 | External Medical Summary | Summary of Care ---
Author Name Unknown Organization [facility] Address [address] [facility] [place] [address] Phone [phone] Care Team Providers Care Director Of Outside Sales Name Role Phone Bárbara Rios Primary Care Provider [phone] Reason for Visit * Reason Onset Date Comments [facility]: Maintenance 06/14/2023 Encounter Details Date Type Department Care Team (Late st Contact Info) Description 06/14/2023 1:30 PM EST Scheduled Telephone [facility], [facility] 1000 [address] [facility] [place] [address] [facility], Nurse [facility] 1000 [address] [facility] [place] [address] Allergies Active Allergy Reactions Criticality Noted Date Comments Other Allergy (See Comments) Rash Low 10/13/2022 1+ cocamidopropyl betaine Sglt2 Inhibitors Other (Please comment) High 09/04/2020 Genital infection Sulfa Antibiotics Rash 10/15/2016 documented as of this encounter (statuses as of 06/14/2023) Medications Medication Sig Dispensed Refills Start Date [...] 32 UNITS WITH DINNER PLUS CORRECTION PER [facility] OR DIRECTED UP TO [...] a week. 9 mL 3 04/09/2023 Active Kzuon-9-kvhg Ethyl Esters 1 GM Oral Capsule (Lovaza) [...] as of this encounter (statuses as of 06/14/2023) Active Problems Problem Noted Date Diagnosed Date [...] as of this encounter (statuses as of 06/14/2023) Resolved Problems Problem Noted Date Diagnosed Date Resolved Date NEMEISO (acute kidney injury) 04/30/2022 Severe obesity with [...] as of this encounter (statuses as of 06/14/2023) Immunizations Name Administration Dates Next Due COVID-19 mRNA, LNP-s, No Pre serve, 2-Dose Series (Moderna) 12/10/2020,11/12/2020 Hepatitis B, 20+ yrs 01/04/2018,08/03/2017,07/03 Pneumococcal Conjugate Vacci ne, 20-valent (Bosmuul19) 06/09/2022 Pneumococcal Polysaccharide PPV23 (Pneumovax) 03/06/2020 SEASONAL [...] [facility] Telephonic Nurse Follow-Up Call [facility] Subprogram: Focused Care Management (3-9 months) [...] monitor via [facility] scales. Disposition: [place] [facility] and/or ising at Home Care Team for further advice Future Visits Scheduled: Future Appointments-next 60 days Date/Time Provider Specialty Dept Phone 06/19/2023 1:30 PM (Arrive by 1:15 PM) Luisa Ching PA-C Nephrology [phone] 06/24/2023 3:00 PM Mery Calderon RDN [facility] [phone] 06/26/2023 8:30 AM Love Stevens, RN [facility] [phone] 07/08/2023 11:00 AM Pharmacist1, [facility] [phone] 07/14/2023 9:30 AM [facility] Cardiology Cardiology [phone] 07/22/2023 10:00 AM Nurse [facility] Ancillary [phone] 07/22/2023 3:00 PM Griselda Chong [facility] Hotel Room Attendant; Sam Gage PA- C [facility] [phone] 08/06/2023 10:00 AM (Arrive by 9:45 AM) Evita Brennan CRNP Cardiology [phone] 10/06/2023 2:10 PM (Arrive by 1:55 PM) Bárbara Rios DO Family Medicine [phone] 10/27/2023 8:30 AM (Arrive by 8:15 AM) Lindsey Sheikh CRNP Sleep Disorders [phone] Carolina Carey, RN documented in this encounter Plan of Treatment Upcoming Encounters Date Type Department Care Team (Late st Contact Info) Description 06/19/2023 1:30 PM EST Office Visit Nephrology [address] [place] [address] Luisa Ching PA-C 200 [facility] [place] [address] 06/24/2023 3:00 PM EST Nutrition Services [facility], [facility] 1000 [address] [facility] [place] [address] Mery Calderon RDN 1000 [address] [facility] [place] [address] 06/26/2023 8:30 AM EST Home Visit [facility], [facility] 132 [facility] [place] [address] Love Stevens, ANNE MARIE 132 [facility] [address] 07/08/2023 11:00 AM EST Telemedicine Pharmacy, [facility] 200 [facility] [place] [address] Pharmacist1, [facility] Sp 200 [facility] [address] 07/14/2023 9:30 AM EST Telemedicine Cardiology [facility] [address] [place] [address] [facility] [address] [place] [address] 07/22/2023 10:00 AM EST Nurse Only Ancillary [address] [place] [address] [place], Nurse Annual [address] [place] [address] 07/22/2023 3:00 PM EST Telemedicine [facility], [facility] [address] [place] [address] Sam Gage PA-C [address] [place] [address] Griselda Chong [facility] Hotel Room Attendant [address] [place] [address] [place] [address] 08/06/2023 10:00 AM EST Office Visit Cardiology, [facility] [address] [place] [address] Evita Brennan CRNP [address] [place] [address] 10/06/2023 2:10 PM EDT Office Visit Family Medicine [address] [place] [phone] Bárbara Rios[address] [place] [address] 10/27/2023 8:30 AM EDT Office Visit Sleep Disorders [facility] [place] [phone] Lindsey Sheikh CRNP [address] [place] [address] Scheduled Procedures Name Priority Associated Diagnoses Date/Ti [...] this encounter Medical Devices Implanted Type Area Oracle Erp Developer Device Identifier Shelf Expiration Date Model / Serial / Lot Lens Intraoc 21.0 - [id number] - [id number] Implanted:Qty: 1 on 01/22/2017 by Cheko Mcnamara MD at OR [facility] Right: Eye BAUSCH & LOMB 08/05/2021 [id number] / [id number] / [id number] Lens Intraoc 21.5 - [id number] - [id number] Implanted:Qty: 1 on 02/03/2017 by Cheko Mcnamara MD at OR [facility] Left: Eye BAUSCH & LOMB 09/02/2021 [id number] / [id number] / [id number] documented as of this encounter Advance Directives [...] consensually agreed upon. Care Teams Director Of Outside Sales Relationship Specialty Start Date End Date Bárbara Rios DO [address] [place] [address] [place] [phone] PCP - General Internal Medicine 08/16/21 documented as of this encounter
--- OUTSIDE RECORDS SUMMARY | 2023-10-20 23:03 | External Medical Summary | Summary of Care ---
Author Name Unknown Organization [facility] Address [address] [facility] [place] [address] Phone [phone] Care Team Providers Care Resourcing Consultant Name Role Phone Bárbara Rios Primary Care Provider [phone] Reason for Visit * Reason Onset Date Comments [facility]: Maintenance 06/12/2023 Encounter Details Date Type Department Care Team (Late st Contact Info) Description 06/12/2023 Telephone [facility], [facility] 132 [address] [place] [facility] [place] [address] [facility], Nurse [facility] 1000 E [facility] [place] [address] [facility]: Maintenance Allergies Active Allergy [...] 32 UNITS WITH DINNER PLUS CORRECTION PER [facility] OR DIRECTED UP TO 120 UNITS [...] a week. 9 mL 3 04/09/2023 Active Vsxjo-3-awdv Ethyl Esters 1 GM Oral Capsule (Lovaza) [...] yrs 01/04/2018,08/03/2017,07/03 Pneumococcal Conjugate Vacci ne, 20-valent ([id number]) 06/09/2022 Pneumococcal Polysaccharide PPV23 (Pneumovax) 03/06/2020 SEASONAL [...] call scheduled Route to RNCM (Registered Nurse Cytologist) and Advance Practitioner Initiate DTP (Diuretic Titration Protocol) if applicable documented in this encounter Plan of Treatment Upcoming Encounters Date Type Department Care Team (Late st Contact Info) Description 06/13/2023 1:00 PM EST Scheduled Telephone [facility], [facility] [address] [facility] [place] [address] [facility], Nurse [facility] 2404 [facility] [address] 06/19/2023 1:30 PM EST Office Visit Nephrology [address] [place] [address] Luisa Ching PA-C [address] [place] [address] 06/24/2023 3:00 PM EST Nutrition Services [facility], [facility] 1000 [address] [facility] [place] [address] Mery Calderon, VIVIANAN 1000 [address] [facility] [place] [address] 06/26/2023 8:30 AM EST Home Visit [facility], [facility] [address] [place] [address] Love Stevens, ANNE MARIE 132 [facility] [place] [address] 07/08/2023 11:00 AM EST Telemedicine Pharmacy, [facility] 200 [facility] [place] [address] Pharmacist1, [facility] 200 [facility] [place] [address] 07/14/2023 9:30 AM EST Telemedicine Cardiology [facility] 400 [facility] [place] [address] [facility] Cardiology 400 [facility] [place] [address] 07/22/2023 10:00 AM EST Nurse Only Ancillary [address] [place] [address] [place], Nurse [address] [place] [address] 07/22/2023 3:00 PM EST Telemedicine [facility], [facility] 132 [place] [address] Sam Gage PA-C [address] [place] [address] Griselda Chong, [facility] Tower Erector [address] [place] [address] [place] [address] 08/06/2023 10:00 AM EST Office Visit Cardiology, [facility] 132 [facility] [place] [address] Evita Brennan CRNP 132 [place] [address] 10/06/2023 2:10 PM EDT Office Visit Family Medicine [address] [place] [phone] Bárbara Rios[address] [place] [address] 10/27/2023 8:30 AM EDT Office Visit Sleep Disorders Ctr [facility] [address] [place] [phone] Lindsey Sheikh CRNP 132 [facility] [place] [address] Scheduled Procedures Name Priority Associated Diagnoses Date/Ti [...] Tdap) 12/29/2026 12/29/2016 Lipid Panel 04/01/2028 04/01/2023, 09/2022, 10/23/2022, Additional history exists Hepatitis B [...] this encounter Medical Devices Implanted Type Area Chip Applying Machine Tender Device Identifier Shelf Expiration Date Model / Serial / Lot Lens Intraoc 21.0 - [id number] - [id number] Implanted:Qty: 1 on 01/22/2017 by Cheko Mcnamara MD at OR [facility] Right: Eye BAUSCH & LOMB 08/05/2021 [id number] / [id number] / [id number] Lens Intraoc 21.5 - [id number] - [id number] Implanted:Qty: 1 on 02/03/2017 by Cheko Mcnamara MD at OR [facility] Left: Eye BAUSCH & LOMB 09/02/2021 [id number] / [id number] / [id number] documented as of this encounter Advance Directives [...] and were consensually agreed upon. Care Teams Resourcing Consultant Relationship Specialty Start Date End Date Bárbara Rios DO [address] [place] [address] [place] [address] PCP - General Internal Medicine 08/16/21 documented as of this encounter
--- OUTSIDE RECORDS SUMMARY | 2023-10-20 23:03 | External Medical Summary | Summary of Care ---
Author Name Unknown Organization [facility] Address [address] [place] [address] Phone [phone] Care Team Providers Care Golf Shoe Spike Assembler Name Role Phone Bárbara Rios Primary Care Provider [phone] Reason for Visit * Reason Onset Date Comments Appointment 06/03/2023 Encounter Details Date Type Department Care Team (Late st Contact Info) Description 06/03/2023 Telephone [facility], [facility]7 [place] [address] Services, Scheduling [address] [place] [address] Appointment Allergies Active Allergy Reactions Criticality Noted Date Comments Other Allergy (See Comments) Rash Low 10/13/2022 1+ cocamidopropyl betaine Sglt2 Inhibitors Other (Please comment) High 09/04/2020 Genital infection Sulfa Antibiotics Rash 10/15/2016 documented as of this encounter (statuses as of 06/03/2023) Medications Medication Sig Dispensed Refills Start Date [...] UNITS WITH DINNER PLUS CORRECTION PER [facility] OR DIRECTED UP TO 120 [...] a week. 9 mL 3 04/09/2023 Active Nodun-4-cqxi Ethyl Esters 1 GM Oral Capsule (Lovaza) [...] as of this encounter (statuses as of 06/03/2023) Active Problems Problem Noted Date Diagnosed Date [...] has been better controlled recently. Monitor using [employer] Cindy. Hypertensive heart and kidne y disease [...] as of this encounter (statuses as of 06/03/2023) Resolved Problems Problem Noted Date Diagnosed Date [...] as of this encounter (statuses as of 06/03/2023) Immunizations Name Administration Dates Next Due COVID-19 mRNA, LNP-s, No Pre serve, 2-Dose Series (Moderna) 12/10/2020,11/12/2020 Hepatitis B, 20+ yrs 01/04/2018,08/03/2017,07/03 Pneumococcal Conjugate Vacci ne, 20-valent (Weozuhh59) 06/09/2022 Pneumococcal Polysaccharide PPV23 (Pneumovax) 03/06/2020 SEASONAL [...] encounter Miscellaneous Notes * Telephone Encounter - Lilibeth Dumont OSA - 06/03/2023 3:53 PM EST Lmom for pt to confirm return telemed on 07/22 at 3pm. documented in this encounter Plan of Treatment Upcoming Encounters Date Type Department Care Team (Late st Contact Info) Description 06/19/2023 1:30 PM EST Office Visit Nephrology [address] [place] [address] Luisa Ching PA-C 200 [facility] [place] [address] 06/24/2023 3:00 PM EST Nutrition Services [facility], [facility] [address] [facility] [place] [address] Mery Calderon, RDN [address] [facility] [place] [address] 06/26/2023 8:30 AM EST Home Visit [facility], [facility] 132 [facility] [place] [address] Love Stevens, ANNE MARIE 132 [facility] [place] [address] 07/08/2023 11:00 AM EST Telemedicine Pharmacy, [employer] 200 [facility] [place] [address] Pharmacist1, [facility] Sp [address] [place] [address] 07/14/2023 9:30 AM EST [facility] [address] [place] [address] Heather [facility] Cardiology [address] [place] [address] 07/22/2023 10:00 AM EST Nurse Only Ancillary [address] [place] [address] [place], Nurse [address] [place] [address] 07/22/2023 3:00 PM EST Telemedicine [facility], [facility] [address] [place] [address] Sam Gage PA-C [address] [place] [address] Griselda Chong [facility] Health [address] [place] [address] 08/06/2023 10:00 AM EST Office Visit Cardiology, [facility] [address] [place] [address] Evita Brennan CRNP [address] [place] [address] 10/06/2023 2:10 PM EDT Office Visit Family Medicine [address] [place] [phone] Bárbara Rios [address] [place] [address] 10/27/2023 8:30 AM EDT Office Visit Sleep Disorders Ctr [facility] [address] [place] [phone] Lindsey Sheikh CRNP [address] [place] [address] Scheduled Procedures Name Priority Associated Diagnoses Date/Ti [...] this encounter Medical Devices Implanted Type Area Home Appliances Mechanic Device Identifier Shelf Expiration Date Model / Serial / Lot Lens Intraoc 21.0 - [id number] - [id number] Implanted:Qty: 1 on 01/22/2017 by Cheko Mcnamara MD at OR [facility] [facility] Right: Eye BAUSCH & LOMB 08/05/2021 [id number] / [id number] / [id number] Lens Intraoc 21.5 - [id number] - [id number] Implanted:Qty: 1 on 02/03/2017 by Cheko Mcnamara MD at OR [facility] [address] Left: Eye BAUSCH & LOMB 09/02/2021 [id number] / [id number] / [id number] documented as of this encounter Advance Directives [...] and were consensually agreed upon. Care Teams Golf Shoe Spike Assembler Relationship Specialty Start Date End Date Bárbara Rios DO [address] [place] [address] [place] [phone] PCP - General Internal Medicine 08/16/21 documented as of this encounter
--- OUTSIDE RECORDS SUMMARY | 2023-10-20 23:04 | External Medical Summary | Summary of Care ---
Author Name Unknown Organization [facility] Address [address] [facility] [place] [address] Phone [phone] Care Team Providers Care Fiscal Specialist Name Role Phone Bárbara Rios Primary Care Provider [phone] Reason for Visit * Reason Onset Date Comments Patient Assistance Program 05/01/2023 29 FO LLOW UP Encounter Details Date Type Department Care Team (Late st Contact Info) Description 05/01/2023 Telephone Cardiology, [facility] 132 [facility] [place] [address] [facility] 21 [facility] [place] [address] Patient Assistance Program (29 FOLLOW UP ) Allergies Active Allergy Reactions Criticality Noted Date Comments Other Allergy (See Comments) Rash Low 10/13/2022 1+ cocamidopropyl betaine Sglt2 Inhibitors Other (Please comment) High 09/04/2020 Genital infection Sulfa Antibiotics Rash 10/15/2016 documented as of this encounter (statuses as of 06/02/2023) Medications Medication Sig Dispensed Refills Start Date [...] 32 UNITS WITH DINNER PLUS CORRECTION PER [facility] OR DIRECTED UP TO 120 UNITS [...] a week. 9 mL 3 3 Active Djwkv-8-lrqq Ethyl Esters 1 GM Oral Capsule (Lovaza) [...] goal of less than 8.0% ([facility]) Inject 1 mg under the skin once [...] as of this encounter (statuses as of 06/02/2023) Active Problems Problem Noted Date Diagnosed Date [...] has been better controlled recently. Monitor using Tangler Cindy. Hypertensive heart and kidne y disease [...] as of this encounter (statuses as of 06/02/2023) Resolved Problems Problem Noted Date Diagnosed Date [...] as of this encounter (statuses as of 06/02/2023) Immunizations Name Administration Dates Next Due COVID-19 mRNA, LNP-s, No Pre serve, 2-Dose Series (Moderna) 12/10/2020,11/12/2020 Hepatitis B, 20+ yrs 01/04/2018,08/03/2017,07/03 Pneumococcal Conjugate Vacci ne, 20-valent ([id number]) 06/09/2022 Pneumococcal Polysaccharide PPV23 (Pneumovax) 03/06/2020 SEASONAL [...] over the Application he filled out from [employer] he said tomorrow or Wendesday he will fax it [facility] it to him to fill out once I get it will fax it over to [employer] for re-enrollment spoke with John he is approved from 12/23/2022 - 07/05/2023. CHAPINCITO Schumacher MEDICATION ORAL HYGIENIST PHONE : [phone] FAX: [phone] 05/11/2023,2:30 PM * Telephone Encounter - Kaylynn Rapp RPh - 05/01/2023 4:26 PM EDT Received fax from [employer] patient due for 2023 re-enrollment of Elmo. Applications will be accepted starting 04/24/23 Please help patient reapply documented in this encounter Plan of Treatment Upcoming Encounters Date Type Department Care Team (Late st Contact Info) Description 06/19/2023 1:30 PM EST Office Visit Nephrology [address] [place] [address] Luisa Ching PA-C [address] [facility] [place] [address] 06/24/2023 3:00 PM EST [facility], [facility] [address] [facility] [place] [address] Mery Calderon RDN [address] [facility] [place] [address] 06/26/2023 8:30 AM EST Home Visit [facility], [facility] 132 [place] [address] Love Stevens, ANNE MARIE 132 [facility] [place] [address] 07/08/2023 11:00 AM EST Telemedicine Pharmacy, [facility] [place] [address] [facility] [place] [address] Pharmacist1, [facility] Sp [address] [place] [address] 07/14/2023 9:30 AM EST Telemedicine Cardiology [facility] 400 [facility] [place] [address] [facility] 400 [facility] [place] [address] 07/22/2023 10:00 AM EST Nurse Only Ancillary [address] [place] [address] [place], Nurse [address] [place] [address] 08/06/2023 10:00 AM EST Office Visit Cardiology, [facility] 132 [place] [address] Evita Brennan CRNP [address] [place] [address] 10/06/2023 2:10 PM EDT Office Visit Family Medicine [address] [place] [phone] Bárbara Rios[address] [place] [address] 10/27/2023 8:30 AM EDT Office Visit Sleep Disorders Ctr [facility] 132 [place] [phone] Lindsey Sheikh CRNP [address] [place] [address] Scheduled Procedures Name Priority Associated Diagnoses Date/Ti me ESOPHAGOGASTRODUODENOSCOPY ( EGD), FLEXIBLE, TRANSORAL, DIAGNOSTIC Recall Arreoal's esophagus with dysplasia COLONOSCOPY FLEXIBLE PROXIMAL DIAGNOSTIC Recall History of colon polyps Health Maintenance Due Date Last Done Comments HIV Screening 1974 Alpha-1 Antitrypsin 1977 COLONOSCOPY-EVERY 5 YRS AGES 18-100 01/01/2023 01/01/2018, 01/01/2018 COVID-19 Vaccine ( - 2022- season) 2023 12/10/2020, 11/12/2020 O2 [...] this encounter Medical Devices Implanted Type Area Performance Specialist Device Identifier Shelf Expiration Date Model / Serial / Lot Lens Intraoc 21.0 - [id number] - [id number] Implanted:Qty: 1 on 01/22/2017 by Cheko Mcnamara MD at OR [facility] Right: Eye [employer]OMB 08/05/2021 [id number] / [id number] / [id number] Lens Intraoc 21.5 - [id number] - [id number] Implanted:Qty: 1 on 02/03/2017 by Cheko Mcnamara MD at OR [facility] Left: Eye BAUSCH & LOMB 09/02/2021 [id number] / [id number] / [id number] documented as of this encounter Advance Directives [...] and were consensually agreed upon. Care Teams Fiscal Specialist Relationship Specialty Start Date End Date Bárbara Rios DO [address] [place] [address] [place] [address] PCP - General Internal Medicine 08/16/21 documented as of this encounter
--- OUTSIDE RECORDS SUMMARY | 2023-10-20 23:04 | External Medical Summary | Summary of Care ---
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 9 mL 3 04/09/2023 Active Llgms-6-cybj Ethyl Esters 1 GM Oral Capsule (Lovaza) [...] as of this encounter (statuses as of 05/29/2023) Active Problems Problem Noted Date Diagnosed Date [...] has been better controlled recently. Monitor using [employer] Cindy. Hypertensive heart and kidne y disease [...] as of this encounter (statuses as of 05/29/2023) Resolved Problems Problem Noted Date Diagnosed Date [...] as of this encounter (statuses as of 05/29/2023) Immunizations Name Administration Dates Next Due COVID-19 mRNA, LNP-s, No Pre serve, 2-Dose Series (Moderna) 12/10/2020,11/12/2020 Hepatitis B, 20+ yrs 01/04/2018,08/03/2017,07/03 Pneumococcal Conjugate Vacci ne, 20-valent ([id number]) 06/09/2022 Pneumococcal Polysaccharide PPV23 (Pneumovax) 03/06/2020 SEASONAL [...] as of this encounter Progress Notes * Vickie Purdy RPh - 05/29/2023 1:30 PM EST [facility] - Hypertension Management This patient was contacted as part of the [facility] 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 Blood Pressure Goal: 140/90 mmHg Type of Alert: yellow Current Hypertension Medications: Carvedilol 25 mg BID Lisinopril 10 mg - two tabs daily Hydralazine 25 mg TID Torsemide 20 mg - 3 tabs daily Experiencing symptoms related to elevated BP: No BP Readings from Last 3 Encounters: 05/26/23 116/58 04/16/23 158/70 04/01/23 152/84 Pulse Readings from Last 3 Encounters: 05/26/23 66 04/16/23 64 04/01/23 72 Recent Labs Units 04/27/23 1403 04/21/23 1315 04/01/23 1531 SODIUM - [facility] mmol/L 140 141 140 POTASSIUM - [facility] mmol/L 4.2 4.0 3.9 CHLORIDE - [facility] mmol/L 100 102 102 CO2 - [facility] mmol/L 26 25 25 CREATININE - [facility] mg/dL 1.9* 1.8* 1.7* BUN - [facility] mg/dL 44* 37* 30* ASSESSMENT & PLAN: SBP DBP Pulse 139 70 58 127 60 59 134 67 66 154 73 61 122 59 65 126 65 66 Average 133.6667 65.43545 62.5 No changes warranted. One outlier of elevated BP reading. Continue monitoring and follow up as necessary. MEDICATION CHANGES: none FOLLOW UP: prn Vickie Purdy RPh Clinical Pharmacist - Montessori Lead Teacher [facility] 05/29/2023, 1:30 PM * Tanja Fitch LPN - 05/29/2023 1:18 PM EST Tony Delong [id number] Tony Delong is currently participating in the CC365 Hypertension Management Program and hasalerted for an Average BP over 7 days > 140/90. Parameters are currently set as follows: Average BP over 7 days > 140/90 Singular Systolic BP Reading < 90 or > 180 Singular Diastolic BP Reading <50 or > 120 Patient is not reporting any new symptoms or concerns. The patient does have all his blood pressuremedications and is taking them as prescribed. Please [...] 06/19/2023 1:30 PM EST Office Visit Nephrology [address] [place] [address] Luisa Ching PA-C [address] [place] [address] [place] [address] 06/24/2023 3:00 PM EST Nutrition Services [facility], [facility] 1000 E [facility] [place] [address] Mery Calderon RDN [address] [place] [address] 06/26/2023 8:30 AM EST Home Visit [facility], [facility] 132 [facility] [place] [address] Love Stevens, ANNE MARIE 132 [facility] [place] [address] 07/08/2023 11:00 AM EST Telemedicine Pharmacy, [facility] [place] [address] [place] [address] Pharmacist1, [facility] [address] [place] [address] 07/14/2023 9:30 AM EST Telemedicine Cardiology [place] Desiree Christiansonwn 400 [facility] [place] [address] [facility] 400 [facility] [place] [address] 07/22/2023 10:00 AM EST Nurse Only Ancillary [address] [place] [address] [place], Nurse [address] [place] [address] 08/06/2023 10:00 AM EST [facility] 132 [place] [address] Evita Brennan CRNP [address] [place] [address] 10/06/2023 2:10 PM EDT Office Visit Family Medicine [address] [place] [phone] Bárbara Rios[address] [place] [address] 10/27/2023 8:30 AM EDT Office [facility] 132 [place] [phone] Lindsey Sheikh CRNP [address] [place] [address] Scheduled Procedures Name Priority Associated Diagnoses Date/Ti [...] this encounter Medical Devices Implanted Type Area Multicultural Internship Device Identifier Shelf Expiration Date Model / Serial / Lot Lens Intraoc 21.0 - [id number] - [id number] Implanted:Qty: 1 on 01/22/2017 by Cheko Mcnamara MD at OR [facility] Right: Eye BAUSCH [employer] LOMB 08/05/2021 [id number] / [id number] / [id number] Lens Intraoc 21.5 - [id number] - [id number] Implanted:Qty: 1 on 02/03/2017 by Cheko Mcnamara MD at OR [facility] Left: Eye BAUSCH & LOMB 09/02/2021 [id number] / [id number] / [id number] documented as of this encounter Visit Diagnoses [...] and were consensually agreed upon. Care Teams Rayon Tester Relationship Specialty Start Date End Date Bárbara Rios DO [address] [place] [address] [place] [address] PCP - General Internal Medicine 08/16/21 documented as of this encounter
--- OUTSIDE RECORDS SUMMARY | 2023-10-20 23:04 | External Medical Summary | Summary of Care ---
Author Name Unknown Organization [facility] Address [address] [facility] [place] [address] Phone [phone] Care Team Providers Care Chemical Recovery Operator Name Role Phone Bárbara Rios Primary Care Provider [phone] Encounter Details Date Type Department Care Team (Late st Contact Info) Description 01/27/2023 Population Health External Data Unspecified Department Allergies Active Allergy Reactions Criticality Noted Date Comments Other Allergy (See Comments) Rash Low 10/13/2022 1+ cocamidopropyl betaine Sglt2 Inhibitors Other (Please comment) High 09/04/2020 Genital infection Sulfa Antibiotics Rash 10/15/2016 documented as of this encounter (statuses as of 05/18/2023) Medications Medication Sig Dispensed Refills Start Date [...] Evolocumab 140 MG/ML Subcutaneous Solution Auto-injector (Repatha Wambaick)Indicatio ns:Dyslipidemia, goal LDL below 100,Mixed dyslipidemia Inject 140 mg under the skin every 14 days. Obtaining through PAP ([employer]) 6 mL 3 01/07/2023 Active Tresiba FlexTouch 200 UNIT/ML Subcutaneous Solution Pen-injectorIndicat ions:Type 2 diabetes mellitus with hemoglobin A1c goal of less than 7.0% (HCC) INJECT UNDER THE SKIN 100 UNITS TWICE DAILY OR DIRECTED 90 mL 3 12/18/2022 12/18/2023 Active NovoLOG FlexPen 100 UNIT/ML Subcutaneous Solution Pen-injectorIndicat ions:Type 2 diabetes mellitus with hemoglobin A1c goal of less than 7.0% (HCC) INJECT UNDER THE SKIN 26 UNITS AT BREAKFAST, 26 UNITS AT LUNCH, 32 UNITS WITH DINNER PLUS CORRECTION PER [facility] OR DIRECTED UP TO 120 UNITS PER DAY 120 mL 3 12/18/2022 12/18/2023 Active hydrALAZINE HCl 25 MG Oral Tablet (Apresoline)Indicat ions:HTN, goal below 140/90 TAKE ONE TABLET BY MOUTH EVERY MORNING, ONE TABLET AT NOON, AND ONE TABLET AT BEDTIME 300 Tablet 3 09/02/2022 09/02/2023 Active metOLazone 2.5 MG Oral Tablet (Zaroxolyn) ON HOLD as of 01/21. Take 1 tablet by mouth on twice a week on non-consecutive days, 30 minutes prior to torsemide. 30 Tablet 0 01/26/2023 Active Hospital, Clinic, or Other Facility Administered [...] as of this encounter (statuses as of 05/18/2023) Active Problems Problem Noted Date Diagnosed Date [...] has been better controlled recently. Monitor using [employer] Cindy. Hypertensive heart and kidne y disease [...] as of this encounter (statuses as of 05/18/2023) Resolved Problems Problem Noted Date Diagnosed Date [...] as of this encounter (statuses as of 05/18/2023) Immunizations Name Administration Dates Next Due COVID-19 mRNA, LNP-s, No Pre serve, 2-Dose Series (Moderna) 12/10/2020,11/12/2020 Hepatitis B, 20+ yrs 01/04/2018,08/03/2017,07/03 Pneumococcal Conjugate Vacci ne, 20-valent ([id number]) 06/09/2022 Pneumococcal Polysaccharide PPV23 (Pneumovax) 03/06/2020 SEASONAL INFLUENZA, PF, 6 M & Above, IM , (FLULAVAL or FLUZONE) 04/27/2022,03/21/2021,04/18/2020,07/11,08/18/2017 Seasonal Influenza, Split, I IV3, With Preserve, [...] the money to buy more. Never true 07/11/19 23 Within the past 12 months, t he food you bought just didn't last and you didn't have money to get more. Never true 07/11/2022 Sex and Gender Information Value Date Recorded [...] Care Team (Late st Contact Info) Description 05/25/2023 9:00 AM EST Nutrition Services [facility], [facility] 1000 [address] [facility] [place] [address] eMry Calderon, RDN 1000 [address] [facility] [place] [address] 05/26/2023 4:00 PM EST Home Visit [facility], [facility] 132 [facility] [place] [address] Love Stevens RN 132 [facility] [place] [address] 06/19/2023 1:30 PM EST Office Visit Nephrology [address] [place] [address] Luisa Ching PA-C [address] [place] [address] 07/08/2023 11:00 AM EST Telemedicine Pharmacy, [facility] [address] [place] [address] Pharmacist1, [facility] Sp [address] [place] [address] 07/14/2023 9:30 AM EST Telemedicine Cardiology [place] [facility] 400 [facility] [place] [address] [facility] 400 [facility] [place] [address] 07/22/2023 10:00 AM EST Nurse Only Ancillary [address] [place] [address] [place], Nurse [address] [place] [address] 08/06/2023 10:00 AM EST Office Visit Cardiology, [facility] [address] [place] [address] Evita Brennan CRNP 132 [place] [address] 10/06/2023 2:10 PM EDT Office Visit Family Medicine [address] [place] [phone] Bárbara Rios[address] [place] [address] 10/27/2023 8:30 AM EDT Office Visit Sleep Disorders Ctr [facility] [address] [place] [phone] Lindsey Sheikh CRNP 132 [facility] [place] [address] Scheduled Procedures Name Priority Associated Diagnoses Date/Ti [...] this encounter Medical Devices Implanted Type Area Ear Pull Machine Operator Device Identifier Shelf Expiration Date Model / Serial / Lot Lens Intraoc 21.0 - [id number] - [id number] Implanted:Qty: 1 on 01/22/2017 by Cheko Mcnamara MD at OR [facility] Right: Eye BAUSCH & LOMB 08/05/2021 [id number] / [id number] / [id number] Lens Intraoc 21.5 - [id number] - [id number] Implanted:Qty: 1 on 02/03/2017 by Cheko Mcnamara MD at OR [facility] Left: Eye BAUSCH & LOMB 09/02/2021 [id number] / [id number] / [id number] documented as of this encounter Advance Directives [...] and were consensually agreed upon. Care Teams Chemical Recovery Operator Relationship Specialty Start Date End Date Bárbara Rios DO [address] [place] [address] [place] [address] PCP - General Internal Medicine 08/16/21 documented as of this encounter
--- OUTSIDE RECORDS SUMMARY | 2023-10-20 23:04 | External Medical Summary | Summary of Care ---
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 9 mL 3 04/09/2023 Active Lnqio-9-cepd Ethyl Esters 1 GM Oral Capsule (Lovaza) [...] as of this encounter (statuses as of 05/19/2023) Active Problems Problem Noted Date Diagnosed Date [...] has been better controlled recently. Monitor using [employer] Cindy. Hypertensive heart and kidne y disease [...] as of this encounter (statuses as of 05/19/2023) Resolved Problems Problem Noted Date Diagnosed Date [...] as of this encounter (statuses as of 05/19/2023) Immunizations Name Administration Dates Next Due COVID-19 mRNA, LNP-s, No Pre serve, 2-Dose Series (Moderna) 12/10/2020,11/12/2020 Hepatitis B, 20+ yrs 01/04/2018,08/03/2017,07/03 Pneumococcal Conjugate Vacci ne, 20-valent ([id number]) 06/09/2022 Pneumococcal Polysaccharide PPV23 (Pneumovax) 03/06/2020 SEASONAL [...] as of this encounter Progress Notes * Shivani Magallon MD - 05/19/2023 3:56 PM EST Noted; no changes to care * Tanja Fitch LPN - 05/14/2023 2:13 PM EST Tony Delong [id number] Tony Delong is currently participating in the CC365 Hypertension Management Program and hasalerted for a singular Hypotension reading < 90/50. Parameters are currently set as follows: Average [...] AM EST Nutrition Services [facility], [facility] 1000 [address] [facility] [place] [address] Mery Calderon RDN [address] [facility] [place] [address] 05/26/2023 4:00 PM EST [facility], [facility] [address] [place] [address] Love Stevens, RN [address] [place] [address] 06/19/2023 1:30 PM EST Office Visit Nephrology [address] [place] [address] Luisa Ching PA-C [address] [place] [address] 07/08/2023 11:00 AM EST Telemedicine Pharmacy, [facility] [address] [place] [address] Pharmacist1, [facility] [address] [place] [address] 07/14/2023 9:30 AM EST Telemedicine Cardiology [facility] 400 [facility] [place] [address] [facility] Cardiology 400 [facility] [address] 07/22/2023 10:00 AM EST Nurse Only Ancillary [address] [place] [address] [place], Nurse [address] [place] [address] 08/06/2023 10:00 AM EST Office Visit Cardiology, [facility] [address] [place] [address] Evita Brennan CRNP 132 [place] [address] 10/06/2023 2:10 PM EDT Office Visit Family Medicine [address] [place] [phone] Bár[address] R[address] [place] [address] 10/27/2023 8:30 AM EDT Office Visit Sleep Disorders Ctr [facility] [address] [place] [phone] Lindsey Sheikh CRNP [address] [place] [address] Scheduled Procedures Name Priority Associated Diagnoses Date/Ti [...] 08/16/2021, 05/29/2020, Additional history exists Albumin/Creatinine Ratio 09/23/202309/22/ 023, 09/02/2022, 05/22/2022, Additional history exists HbA1c [...] this encounter Medical Devices Implanted Type Area Dairy Lab Technician Device Identifier Shelf Expiration Date Model / Serial / Lot Lens Intraoc 21.0 - [id number] - [id number] Implanted:Qty: 1 on 01/22/2017 by Cheko Mcnamara MD at OR [facility] Right: Eye [employer]CH [employer] LOMB 08/05/2021 [id number] / [id number] / [id number] Lens Intraoc 21.5 - [id number] - [id number] Implanted:Qty: 1 on 02/03/2017 by Cheko Mcnamara MD at OR [facility] Left: Eye BAUSCH & LOMB 09/02/2021 [id number] / [id number] / [id number] documented as of this encounter Visit Diagnoses [...] and were consensually agreed upon. Care Teams Bleacher [employer] Relationship Specialty Start Date End Date Bárbara Rios DO [address] [place] [address] [place] [phone] PCP - General Internal Medicine 08/16/21 documented as of this encounter
--- OUTSIDE RECORDS SUMMARY | 2023-10-20 23:04 | External Medical Summary | Summary of Care ---
Author Name Unknown Organization [facility] Address [address] [facility] [place] [address] Phone [phone] Care Team Providers Care Regulatory Compliance Engineer Name Role Phone Bárbara Rios Primary Care Provider [phone] Reason for Visit * Reason Onset Date Comments Patient Assistance Program 05/01/2023 29 FO LLOW UP Encounter Details Date Type Department Care Team (Late st Contact Info) Description 05/01/2023 Telephone Cardiology, [facility] [address] [facility] [place] [address] [facility] [address] [facility] [place] [address] Patient Assistance Program (29 FOLLOW UP ) [...] a week. 9 mL 3 3 Active Zkxij-9-zzqj Ethyl Esters 1 GM Oral Capsule (Lovaza) [...] goal of less than 8.0% ([facility]) Inject 1 mg under the skin once [...] has been better controlled recently. Monitor using AetherPal Cindy. Hypertensive heart and kidne y disease [...] yrs 01/04/2018,08/03/2017,07/03 Pneumococcal Conjugate Vacci ne, 20-valent ([id number]) 06/09/2022 Pneumococcal Polysaccharide PPV23 (Pneumovax) 03/06/2020 SEASONAL [...] over the Application he filled out from [employer] he said tomorrow or Wendesday he will fax it [facility] mailed it to him to fill out once I get it will fax it over to [employer] for re-enrollment spoke with John he is approved from 12/23/2022 - 07/05/2023. CHAPINCITO Schumacher MEDICATION QUALITY IMPROVEMENT ENGINEER PHONE : [phone] FAX: [phone] 05/11/2023,2:30 PM * Telephone Encounter - Kaylynn Rapp RPh - 05/01/2023 4:26 PM EDT Received fax from [employer] patient due for 2023 re-enrollment of Elmo. Applications will be accepted starting 04/24/23 Please help patient reapply documented in this encounter Plan of Treatment Upcoming Encounters Date Type Department Care Team (Late st Contact Info) Description 06/19/2023 1:30 PM EST Office Visit Nephrology [address] [place] [address] Luisa Ching PA-C [address] [facility] [address] 06/24/2023 3:00 PM EST Nutrition Services [facility], [facility] [address] [facility] [place] [address] Mery Calderon RDN [address] [facility] [place] [address] 06/26/2023 8:30 AM EST Home Visit [facility], [facility] [address] [place] [address] Love Stevens, ANNE MARIE 132 [facility] [place] [address] 07/08/2023 11:00 AM EST Telemedicine Pharmacy, [facility] [place] [address] [facility] [place] [address] Pharmacist1, [facility] [address] [place] [address] 07/14/2023 9:30 AM EST Telemedicine Cardiology [place] [facility] [address] [facility] [place] [address] [facility] [address] [facility] [place] [address] 07/22/2023 10:00 AM EST Nurse Only Ancillary [address] [place] [address] [place], Nurse [address] [place] [address] 08/06/2023 10:00 AM EST Office Visit Cardiology, [facility] [address] [place] [address] Evita Brennan CRNP [address] [place] [address] 10/06/2023 2:10 PM EDT Office Visit Family Medicine [address] [place] [phone] Bárbara Rios[address] [place] [address] 10/27/2023 8:30 AM EDT Office Visit Sleep Disorders Ctr [facility] 132 [place] [phone] Lindsey Sheikh CRNP [address] [place] [address] Scheduled Procedures Name Priority Associated Diagnoses Date/Ti [...] this encounter Medical Devices Implanted Type Area Senior Merchandiser Device Identifier Shelf Expiration Date Model / Serial / Lot Lens Intraoc 21.0 - [id number] - [id number] Implanted:Qty: 1 on 01/22/2017 by Cheko Mcnamara MD at OR [facility] Right: Eye [employer] 08/05/2021 [id number] / [id number] / [id number] Lens Intraoc 21.5 - [id number] - [id number] Implanted:Qty: 1 on 02/03/2017 by Cheko Mcnamara MD at OR [facility] Left: Eye [employer]OM[employer] 09/02/2021 [id number] / [id number] / [id number] documented as of this encounter Advance Directives [...] and were consensually agreed upon. Care Teams Regulatory Compliance Engineer Relationship Specialty Start Date End Date Bárbara Rios DO [address] [place] [address] [place] [address] PCP - General Internal Medicine 08/16/21 documented as of this encounter
--- OUTSIDE RECORDS SUMMARY | 2023-10-20 23:04 | External Medical Summary | Summary of Care ---
Author Name Unknown Organization [facility] Address [address] [facility] [address] Phone [phone] Care Team Providers Care Mold Runner Name Role Phone Rios Bárbara Sneed Primary Care Provider [phone] Reason for Visit * Reason Comments Dosage Adjustment Via Phone (anticoag Cl inic) Medication Discussion Encounter Details Date Type Department Care Team (Late st Contact Info) Description 05/13/2023 3:10 PM [facility] Telemedicine Pharmacy, [facility] 200 [facility] [place] [address] Pharmacist1, [facility] 200 [facility] [place] [address] Encounter for long-term (current) use of medications*; Type 2 diabetes mellitus with hemoglobin A1c goal of less than 8.0% ([facility]) Allergies Active Allergy Reactions Criticality Noted Date Comments Other Allergy (See Comments) Rash Low 10/13/2022 1+ cocamidopropyl betaine Sglt2 Inhibitors Other (Please comment) High 09/04/2020 Genital infection Sulfa Antibiotics Rash 10/15/2016 documented as of this encounter (statuses as of 05/15/2023) Medications Medication Sig Dispensed Refills Start Date [...] a week. 9 mL 3 3 Active Csmew-2-erov Ethyl Esters 1 GM Oral Capsule (Lovaza) [...] goal of less than 8.0% ([facility]) Inject 1 mg under the skin [...] as of this encounter (statuses as of 05/15/2023) Active Problems Problem Noted Date Diagnosed Date [...] has been better controlled recently. Monitor using Fjuul Cindy. Hypertensive heart and kidne y disease [...] as of this encounter (statuses as of 05/15/2023) Resolved Problems Problem Noted Date Diagnosed Date [...] as of this encounter (statuses as of 05/15/2023) Immunizations Name Administration Dates Next Due COVID-19 mRNA, LNP-s, No Pre serve, 2-Dose Series (Moderna) 12/10/2020,11/12/2020 Hepatitis B, 20+ yrs 01/04/2018,08/03/2017,07/03 Pneumococcal Conjugate Vacci ne, 20-valent ([id number]) 06/09/2022 Pneumococcal Polysaccharide PPV23 (Pneumovax) 03/06/2020 SEASONAL [...] as of this encounter Progress Notes * Satinder Mar, [facility] - 05/13/2023 10:19 AM EST Images from the original note were not included. PHARMACY MTM PROGRESS NOTE [facility] [address] [place] [address] Service Delivery Delivery Method: Phone Outcome: CMR Completed Health Profile Current Conditions: Cardiovascular Disease, COPD, Diabetes, Heart Failure, Heartburn, High Blood Pressure, and High Cholesterol Drug allergies & side effects: Review of patient's allergies indicates: Allergen Reactions Sglt2 Inhibitors Other (Please comment) Genital infection Sulfa Antibiotics Rash Other Allergy (See Comments) Rash 1+ cocamidopropyl betaine Med List Home Medications Provider acetaminophen (TYLENOL) 500 MG Tablet Lilibeth Pineda CRNP Associated Diagnoses: Acute left-sided low back pain with left-sided sciatica Albuterol Sulfate (Proventil) (2.5 MG/3ML) 0.083% inhalation solution 2.5 mg Khalif Pierre MD 2.5 mg, Nebulizer, PRN Other, ONCE FOR PFTStarting on Aida 11/20/22 at 1656, Until Thu11/20/23 at 1655For 365 days Associated Diagnoses: Dyspnea and respiratory abnormalities Albuterol Sulfate (Proventil) (5 MG/ML) 0.5% *conc* inhalation solution 2.5 mg Khalif Pierre MD 2.5 mg, Nebulizer, PRN Other, for Pulmonary Function TestingStarting on Aida 11/20/22 at 1656, Until Thu11/20/23 at 1655For 365 days*Dilute with 0.9% saline IF needed Associated Diagnoses: Dyspnea and respiratory abnormalities Aspirin 81 MG Tablet Patient, History Per Associated Diagnoses: -- B Complex Capsule Patient, History Per Associated Diagnoses: -- BD Pen Needle Short U/F 31G X 8 MM (Insulin Pen Needle) Bárbara Rios, DO USE TO INJECT INSULINS 5 TIMES DAILY. 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 Carvedilol 25 MG Oral Tablet (Coreg) Bárbara Rios, DO TAKE ONE TABLET BY MOUTH EVERY MORNING AND TAKE ONE TABLET BY MOUTH BEFORE BEDTIME Associated Diagnoses: HTN, goal below 140/90 Cholecalciferol (VITAMIN D3) 2000 UNITS Capsule Lilibeth Pineda CRNP Associated Diagnoses: -- Clindamycin Phosphate 1 % External Gel Garima Quiles PA-C Apply 2x daily to spots on scalp/neck until resolved, then when flaring Associated Diagnoses: Folliculitis CoQ10 100 MG Oral Capsule Patient, History Per Associated Diagnoses: -- CPAP Patient, History Per Associated Diagnoses: -- DIURETIC TITRATION PLAN Amador Hernandez PA-C If no improvement on day 3, contact heart failure managing provider. Associated Diagnoses: -- Evolocumab 140 MG/ML Subcutaneous Solution Auto-injector (Repatha SureClick) Evita Brennan CRNP Associated Diagnoses: Dyslipidemia, goal LDL below 100, Mixed dyslipidemia FreeStyle Cidny 2 Sensor Bárbara Rios, DO Use as directed every 14 days . Associated Diagnoses: Type 2 diabetes mellitus with hemoglobin A1c goal of less than 7.0% (HCC) hydrALAZINE HCl 25 MG Oral Tablet (Apresoline) Bárbara Rios DO TAKE ONE TABLET BY MOUTH EVERY MORNING, ONE TABLET AT NOON, AND ONE TABLET AT BEDTIME Associated Diagnoses: HTN, goal below 140/90 Lisinopril 10 MG Oral Tablet (Prinivil) Shivani Magallon MD Take 2 Tablets by mouth in the morning. Associated Diagnoses: -- Metamucil 28.3 % Oral Powder (Psyllium) Patient, History Per Associated Diagnoses: -- metOLazone 2.5 MG Oral Tablet (Zaroxolyn) Shivani Magallon MD Associated Diagnoses: -- NovoLOG FlexPen 100 UNIT/ML Subcutaneous Solution Pen-injector Bárbara Rios DO INJECT UNDER THE SKIN 26 UNITS AT BREAKFAST, 26 UNITS AT LUNCH, 32 UNITS WITH DINNER PLUS CORRECTION PER [facility] OR DIRECTED UP TO 120 UNITS PER DAY Associated Diagnoses: Type 2 diabetes mellitus with hemoglobin A1c goal of less than 7.0% (HCC) Glkvl-1-aszf Ethyl Esters 1 GM Oral Capsule (Lovaza) Evita Brennan CRNP Take 2 Capsules by mouth in the morning and 2 Capsules before bedtime. Associated Diagnoses: -- Omeprazole 20 MG Oral Capsule Delayed Release (PriLOSEC) Bárbara Rios DO TAKE 1 CAPSULE BY MOUTH IN THE MORNING AND 1 CAPSULE BEFORE BEDTIME 30 MINUTES BEFORE A MEAL Associated Diagnoses: -- OneTouch Delica Lancets 33G Bárbara Rios DO Use 3 times daily - E11.9 Patient taking differently: Use 3 times daily - E11.9 Associated Diagnoses: -- OneTouch Verio In Vitro Strip (Glucose Blood) Rios, Bárbara Sneed, DO USE TO TEST BLOOD GLUCOSE 3 TIMES A DAY. DX: E11.9 Patient taking differently: USE TO TEST BLOOD GLUCOSE 3 TIMES A DAY. DX: E11.9 Associated Diagnoses: Uncontrolled type 2 diabetes mellitus with hyperglycemia (HCC) Potassium Chloride Gaviota ER 10 MEQ Oral Tablet Extended Release Shivani Magallon MD Take 1 Tablet by mouth in the morning. Associated Diagnoses: 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) Semaglutide (2 MG/DOSE) 8 MG/3ML Subcutaneous Solution Pen-injector (Ozempic) Bárbara Rios, Inject 2 mg under the skin once a week. Associated Diagnoses: Type 2 diabetes mellitus with hemoglobin A1c goal of less than 8.0% (HCC) Torsemide 20 MG Oral Tablet (Demadex) Shivani Magallon MD Take 2 tablets in the morning and a third tablet at least 4 hours later; Take extra tablet as needed for weight gain. Patient taking differently: Take 2 Tablets by mouth in the morning. Take 2 tablets in the morning and 1 tablet 4 hours later. Continue DTP as ordered. . Associated Diagnoses: Hypertensive 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 heartfailure and stage 3b chronic kidney disease (HCC) Tresiba FlexTouch 200 UNIT/ML Subcutaneous Solution Pen-injector Bárbara Rios, DO INJECT UNDER THE SKIN 100 UNITS TWICE DAILY OR DIRECTED Associated Diagnoses: Type 2 diabetes mellitus with hemoglobin A1c goal of less than 7.0% (HCC) Ongoing Comment Leta Oviedo MD 09/08/2017 9:30 AM 09/08/2017 -Needs to get labs at [facility] on [address] TIPs None Action Plan None Takeaway Service Information Date CMR was completed: 05/13/2023 Who was the recipient of the CMR service: Patient Was the patient in a skilled nursing care (LTC) facility when the CMR was completed? No Pharmacist's availability for questions: Thursday-Thursday 8:00am-4:30pm Takeaway Information Will the Patient Takeaway be sent to the Patient or someone else? Patient Language Template for the Patient Takeaway: Mexican Additional notes for the Patient Takeaway (optional): n/a I attest that I have reviewed and updated the patient's conditions, allergies, and medications to the best of my ability. Patient Access: Is patient utilizing [facility]? Yes Is patient utilizing MyChart? Yes Additional Call Notes N/a Satinder Mar [facility] Clinical Pharmacist [facility] ([facility]) 05/13/2023, 10:19 AM documented in this encounter Plan of Treatment Upcoming Encounters Date Type Department Care Team (Late st Contact Info) Description 05/25/2023 9:00 AM EST Nutrition Services [facility], [facility] [address] [facility] [place] [address] Mery Calderon RDN [address] [facility] [place] [address] 05/26/2023 4:00 PM EST Home Visit [facility], [facility] 132 [facility] [place] [address] Love Stevens, ANNE MARIE 132 [facility] [place] [address] 06/19/2023 1:30 PM EST Office Visit Nephrology [address] [place] [address] Luisa Ching PA-C 200 [facility] [place] [address] 07/08/2023 11:00 AM EST Telemedicine Pharmacy, [facility] 200 [facility] [place] [address] Pharmacist1, [facility] 200 [facility] [place] [address] 07/14/2023 9:30 AM EST Telemedicine Cardiology [place] [facility] [address] [facility] [address] [facility] [place] [address] 07/22/2023 10:00 AM EST Nurse Only Ancillary [address] [place] [address] [place], Nurse [address] [place] [address] 08/06/2023 10:00 AM EST Office Visit Cardiology, [facility] [address] [place] [address] Evita Brennan CRNP [address] [place] [address] 10/06/2023 2:10 PM EDT Office Visit Family Medicine [address] [place] [phone] Bárbara Rios[address] [place] [address] 10/27/2023 8:30 AM EDT Office Visit [facility] Disorders Ctr [facility] [address] [place] [phone] Lindsey Sheikh CRNP 132 [facility] [place] [address] Scheduled Procedures Name Priority Associated Diagnoses Date/Ti [...] this encounter Medical Devices Implanted Type Area Scrap Metal Burner Device Identifier Shelf Expiration Date Model / Serial / Lot Lens Intraoc 21.0 - [id number] - [id number] Implanted:Qty: 1 on 01/22/2017 by Cheko Mcnamara MD at OR [facility] Right: Eye [employer] 08/05/2021 [id number] / [id number] / [id number] Lens Intraoc 21.5 - [id number] - [id number] Implanted:Qty: 1 on 02/03/2017 by Cheko Mcnamara MD at [facility] Left: Eye [employer] LOMB 09/02/2021 [id number] / [id number] / [id number] documented as of this encounter Visit Diagnoses Diagnosis Encounter for long-term (current) use of medications- Primary Encounter for long-term (current) use of other medications Type 2 diabetes mellitus with hemoglobin A1c goal of less than 8.0% (HCC) documented in this encounter Advance Directives [...] and were consensually agreed upon. Care Teams Mold Runner Relationship Specialty Start Date End Date Bárbara Rios DO [address] [place] [address] [place] [address] PCP - General Internal Medicine 08/16/21 documented as of this encounter
--- OUTSIDE RECORDS SUMMARY | 2023-10-20 23:04 | External Medical Summary | Summary of Care ---
Author Name Unknown Organization [facility] Address [address] [facility] [place] [address] Phone [phone] Care Team Providers Care Staff Submarine Warfare Officer Name Role Phone Bárbara Rios Primary Care Provider [phone] Reason for Visit * Reason Comments Medical Nutrition Therapy Encounter Details Date Type Department Care Team (Latest Contact Info) Description 05/25/2023 9:00 AM EST Nutrition Services [facility], [facility] [address] [facility] [place] [address] Mery Calderon, RDN [address] [place] [facility] [place] [address] Type 2 diabetes mellitus with stage 3b chronic kidney disease, with long-term current use of insulin ([facility])* Allergies Active Allergy Reactions Criticality Noted Date Comments Other Allergy (See Comments) Rash Low 10/13/2022 1+ cocamidopropyl betaine Sglt2 Inhibitors Other (Please comment) High 09/04/2020 Genital infection Sulfa Antibiotics Rash 10/15/2016 documented as of this encounter (statuses as of 05/25/2023) Medications Medication Sig Dispensed Refills Start Date [...] 32 UNITS WITH DINNER PLUS CORRECTION PER [facility] OR DIRECTED UP TO [...] a week. 9 mL 3 04/09/2023 Active Pedvp-4-muxc Ethyl Esters 1 GM Oral Capsule (Lovaza) [...] as of this encounter (statuses as of 05/25/2023) Active Problems Problem Noted Date Diagnosed Date [...] as of this encounter (statuses as of 05/25/2023) Resolved Problems Problem Noted Date Diagnosed Date [...] as of this encounter (statuses as of 05/25/2023) Immunizations Name Administration Dates Next Due COVID-19 mRNA, LNP-s, No Pre serve, 2-Dose Series (Moderna) 12/10/2020,11/12/2020 Hepatitis B, 20+ yrs 01/04/2018,08/03/2017,07/03 Pneumococcal Conjugate Vacci ne, 20-valent ([id number]) 06/09/2022 Pneumococcal Polysaccharide PPV23 (Pneumovax) 03/06/2020 SEASONAL INFLUENZA, PF, 6 M & Above, IM , (FLULAVAL or FLUZONE) 04/01/2023,04/27/2022,03/21/2021,04/18,07/11/2019,08/18/2017 Seasonal Influenza, Split, I IV3, With Preserve, Inj 04/05/2016 TDAP (age 10 and older)(Boostrix) 12/29/2016 Zoster Vaccine Recombinant (Shingrix) 05/29/2020 ,01/27/2020 documented as of this encounter Social History Tobacco Use Types Packs/Day Years Used Date Smoking Tobacco: Former Cigarettes 2 13 1 - 1987 Smokeless Tobacco: Never Alcohol Use [...] - Inhaled Oxygen Concentration - - Weight 138.1 kg (304 lb 7.3 oz) 05/25/2023 7:51 AM EST Height 184 cm (6' 0.44") 05/25/2023 7:51 AM EST Body Mass Index 40.79 05/25/2023 7:51 AM EST documented in this encounter Progress Notes * Mery Calderon RDN - 05/25/2023 7:27 AM EST NUTRITION FOLLOW-UP NOTE - OUTPATIENT [facility] Name: Tony Delong Location: [facility] Date: 05/25/2023 Time: 7:27 AM Patient was identified by name and date. After connecting to the patient via telephone, the patient was identified by name and date of . Patient was then informed that this was a telephone call only visit. The patient agreed to participate. Visit Disposition: Routine follow-up Total call duration was 17 minutes. Reason for Nutrition Follow-up: Heart Failure, [...] other pertinent information: Lives with significant other who continues to assist with care/food shopping/prepping/cooking of meals Testing BS 3-4x daily BS ranging 130's-160's recently (discussed the importance of proper nutrition to better control BS) Followed by [facility] (next appt 07/08/23) Appetite and PO intake remain "too good" with no difficulties SOB "comes and goes but I am doing better!" (provided encouragement) Discussed the importance of staying active with bedside/chair exercises 2-3x/week--(provided encouragement/info sent previously) Continues to not always adhere to low sodium/low sugar diet restrictions (BLE edema noted/discussedthe need to avoid these foods/healthy options suggested) Possible peritoneal dialysis discussed with Patient if indicated per MD Medications Changes/Updates: None reported Nutrition-Focused Physical Findings Full nutrition focused physical exam not conducted (telephone nutrition assessment) No open areas reported this call Anthropometric Measurements Current Weight: Wt Readings from Last 1 Encounters: 05/25/23 (!) 138.1 kg (304 lb 7.3 oz) Wt Readings from Last 13 Encounters: 05/25/23 (!) 138.1 kg (304 lb 7.3 oz) 04/01/23 (!) 138.1 kg (304 lb 6.4 oz) 03/23/23 (!) 138.8 kg (306 lb) 03/13/23 (!) 138.8 kg (306 lb) 02/25/23 (!) 136.9 kg (301 lb 12.8 oz) 01/26/23 134.3 kg (296 lb) 01/01/23 135.8 kg (299 lb 6.4 oz) 12/23/22 (!) 137 kg (302 lb) 12/19/22 134.9 kg (297 lb 6.4 oz) 12/18/22 (!) 139.4 kg (307 lb 5.1 oz) 12/17/22 (!) 139.6 kg (307 lb 12.8 oz) 12/17/22 135 kg (297 lb 9.9 oz) 12/01/22 135 kg (297 lb 11.2 oz) Weight Change: increased by 8 pounds in the past 6 months (Patient reports fluctuations due to edema) BMI Readings from Last 1 Encounters: 05/25/23 40.79 kg/m Biochemical Data, Medical Tests, and Procedures Latest Reference Range & Units 04/21/23 13:15 04/27/23 14:03 Sodium 135 - 146 mmol/L 141 140 Potassium 3.5 - 5.1 mmol/L 4.0 4.2 Chloride 98 - 107 mmol/L 102 100 CO2 22 - 32 mmol/L 25 26 BUN 6 - 20 mg/dL 37 (H) 44 (H) Creatinine 0.6 - 1.2 mg/dL 1.8 (H) 1.9 (H) Estimated Glomerular Filtration Rate >=60 mL/min 43 (L) 39 (L) Anion Gap 7 - 15 mmol/L 14 14 Glucose 70 - 120 mg/dL 172 (H) 215 (H) Calcium 8.4 - 10.2 mg/dL 9.6 9.8 (H): Data is abnormally high (L): Data is abnormally low Latest Reference Range & Units 12/17/22 14:38 04/01/23 15:31 Hemoglobin A1C 4.0 - 5.6 % 9.4 (H) 7.2 (H) (H): Data is abnormally high Discussed the negative effects elevated A1C has on the body (greatly improved as indicated above) Previous Nutrition Diagnosis: Food and nutrition-related knowledge deficit related to Lack of exposure to nutritional management of Diabetes/Heart Health/CKD/Obesity as evidenced by Reported diet and/or activity recall Progress towards goals: 1) Consume 3 meals/day plus HS snack of nutritious, low sodium/low sugar foods with consistent carbohydrates (discussed foods to consume/avoid/healthy options suggested/sent info previously)--in progress 2) Consume more fruits/vegetables at HS snack vs cookies (discussed My Plate Method/seasonal fruitsand vegs suggested/info sent previously)--in progress 3) Encouraged to do bedside/chair exercises/2-3x per week walks (info previously sent)--in progress-provided encouragement CURRENT NUTRITION DIAGNOSIS Food and nutrition-related knowledge deficit related to Lack of exposure to nutritional management of Diabetes/Heart Health/CKD/Obesity as evidenced by Reported diet and/or activity recall NUTRITION INTERVENTION: FOOD AND/OR NUTRIENT DELIVERY Meals Snacks NUTRITION EDUCATION Initial/brief nutrition education NUTRITION COUNSELING Strategies Nutrition Prescription: Diet: 2000 mg Sodium Consistent Carbohydrate Good Nutrition Weight Management Nutrition for CKD Amarilloyudelka Singh: Amarilloyudelka Morejon (Male): [phone] (05/25/23 0751) Daily Calorie Needs: 2659 Kcals - 500 Kcals = 2159 Kcals/day (promote weight loss/elevated BMI) Daily Protein Needs: 76 Grams protein (.8g/kg/used AIBW of 210 lbs) Current Goals: 1) Consume 3 meals/day plus HS snack of nutritious, low sodium/low sugar foods with consistent carbohydrates (discussed foods to consume/avoid) 2) Consume more fruits/vegetables at HS snack vs cookies (discussed My Plate Method/suggested seasonal choices) 3) Encouraged [...] Eating, Healthy Eating Away From Home , Snack Ideas, Increased Physical Activity, Lifestyle Changes [...] 15 minutes Medical Nutrition Therapy Time In: 0900 (05/25/23 1349) Time Out: 0917 (05/25/23 1350) 15 min (8-22 min) 30 min (23-37 min) 45 min (38-52 min) 60 min (53-67 min) 75 min (68-82 min) 90 min (83-97 min) 105 min (98-113 min) [facility], [facility] documented in this encounter Plan of Treatment Upcoming Encounters Date Type Department Care Team (Late st Contact Info) Description 05/26/2023 4:00 PM EST Home Visit [facility], [facility] [address] [facility] [place] [address] Love Stevens RN [address] [place] [address] 06/19/2023 1:30 PM EST Office Visit Nephrology [address] [place] [address] Luisa Ching PA-C [address] [facility] [place] [address] 06/24/2023 3:00 PM EST Nutrition Services [facility], [facility] [address] [facility] [place] [address] Mery Calderon RDN [address] [facility] [place] [address] 07/08/2023 11:00 AM EST Telemedicine Pharmacy, [facility] [address] [facility] [place] [address] Pharmacist1, [facility] [address] [facility] [place] [address] 07/14/2023 9:30 AM EST Telemedicine Cardiology [facility] [address] [facility] [place] [address] [facility] Cardiology [address] [facility] [place] [address] 07/22/2023 10:00 AM EST Nurse Only Ancillary [address] [place] [address] [place], Nurse [address] [place] [address] 08/06/2023 10:00 AM EST Office Visit Cardiology, [facility] [address] [place] [address] Evita Brennan CRNP [address] [place] [address] 10/06/2023 2:10 PM EDT Office Visit Family Medicine [address] [place] [phone] Bárbara Rios[address] [place] [address] 10/27/2023 8:30 AM EDT Office Visit [facility] Disorders C[facility] [address] [place] [phone] Lindsey Sheikh CRNP [address] [place] [address] Scheduled Procedures Name Priority Associated Diagnoses Date/Ti [...] this encounter Medical Devices Implanted Type [employer] Flatbed Truck Driver Device Identifier Shelf Expiration Date Model / Serial / Lot Lens Intraoc 21.0 - [id number] - [id number] Implanted:Qty: 1 on 01/22/2017 by Cheko Mcnamara MD at OR [facility] Right: Eye [employer] 08/05/2021 [id number] / [id number] / [id number] Lens Intraoc 21.5 - [id number] - [id number] Implanted:Qty: 1 on 02/03/2017 by Cheko Mcnamara MD at OR [facility] Left: Eye [employer] 09/02/2021 [id number] / [id number] / [id number] documented as of this encounter Visit Diagnoses [...] and were consensually agreed upon. Care Teams Staff Submarine Warfare Officer Relationship Specialty Start Date End Date Bárbara Rios DO [address] [place] [address] [place] [address] PCP - General Internal Medicine 08/16/21 documented as of this encounter
--- OUTSIDE RECORDS SUMMARY | 2023-10-20 23:04 | External Medical Summary | Summary of Care ---
Author Name Unknown Organization [facility] Address [address] [facility] [place] [address] Phone [phone] Care Team Providers Care Jumpbasting Armhole Baster Name Role Phone Bárbara Rios Primary Care Provider Reason for Visit * Reason Comments [facility]: Maintenance Encounter Details Date Type Department Care Team (Late st Contact Info) Description 05/26/2023 4:00 PM EST Home Visit [facility], [facility] [address] [place] [address] Love Stevens, RN [address] [place] [address] Allergies Active Allergy Reactions Criticality Noted Date Comments Other Allergy (See Comments) Rash Low 10/13/2022 1+ cocamidopropyl betaine Sglt2 Inhibitors Other (Please comment) High 09/04/2020 Genital infection Sulfa Antibiotics Rash 10/15/2016 documented as of this encounter (statuses as of 05/27/2023) Medications Medication Sig Dispensed Refills Start Date [...] 32 UNITS WITH DINNER PLUS CORRECTION PER [facility] OR DIRECTED UP TO [...] a week. 9 mL 3 04/09/2023 Active Ynkxn-6-ihhk Ethyl Esters 1 GM Oral Capsule (Lovaza) [...] as of this encounter (statuses as of 05/27/2023) Active Problems Problem Noted Date Diagnosed Date [...] as of this encounter (statuses as of 05/27/2023) Resolved Problems Problem Noted Date Diagnosed Date [...] as of this encounter (statuses as of 05/27/2023) Immunizations Name Administration Dates Next Due COVID-19 mRNA, LNP-s, No Pre serve, 2-Dose Series (Moderna) 12/10/2020,11/12/2020 Hepatitis B, 20+ yrs 01/04/2018,08/03/2017,07/03 Pneumococcal Conjugate Vacci ne, 20-valent ([id number]) 06/09/2022 Pneumococcal Polysaccharide PPV23 (Pneumovax) 03/06/2020 SEASONAL [...] Sign Reading Time Taken Comments Blood Pressure 116/58 05/26/2023 11:41 AM EST Pulse 66 05/26/2023 11:41 AM EST Temperature 35.6 C (96 F) 05/26/2023 11:41 AM EST Respiratory Rate 18 05/26/2023 11:41 AM EST Oxygen Saturation 95% 05/26/2023 11:41 AM EST Inhaled Oxygen Concentration - - Weight - - Height - - Body Mass Index - - documented in this encounter Progress Notes * Love Stevens RN - 05/26/2023 11:20 AM EST Images from the original note were not included. [facility] [employer] Visit Date: 05/26/2023 Time: 11:21 AM Name: Tony Delong : 1960 Current Concerns: Patient seen for follow up- CKD4, CHF, COPD, [place], DM2 Reports doing well. Average blood sugar 7 days- 130 VS wnl Lungs clear bilaterally Sob with exertion No LE edema noted Weight stable- see below Voiding without difficulty Bowels wnl- per report Appetite good Taking fluids well Patient very knowledgeable regarding dx, diet. Compliant Problems/Symptoms: Review of Systems Constitutional: Negative. HENT: Negative. Eyes: Negative. Respiratory: Positive for shortness of breath. Endocrine: Negative. Genitourinary: Negative. Musculoskeletal: Negative. Skin: Negative. Allergic/Immunologic: Negative. Neurological: Negative. Physical Exam: BP 116/58 (BP Site: Left Arm, BP Position: Sitting, BP Cuff Size: Regular) | Pulse 66 | Temp 35.6 C (96 F) (Tympanic) | Resp 18 | SpO2 95% Pain 3 Physical Exam Constitutional: Appearance: Normal [...] and Affect: Mood normal. Behavior: Behavior normal. [facility]-10 Completed this Visit: No. Routine visit Treatment/Plan: Low na diet AMC scales- daily BP daily- monitored by nephrology Blood sugar QID Continue medications as prescribed Keep all upcoming MD appointments Fall precautions Fluids encouraged- keep under 1.5L RN CM follow up in 4 weeks Home Interventions Provided: Reinforced current Plan of Care, including self-management and medication regimen Patient Needs to Remember: Call [facility] with any medical concerns/ red flags Referrals Needed: N/a Follow Up: Is there cellular connectivity/connectivity in the home? Yes Does the patient have internet in the home? Yes Patient encouraged to call the intake phone number for all urgent but not emergent issues. Scheduled to follow up with patient in 4 weeks. Love Du RN 05/26/2023 11:21 AM documented in this encounter Plan of Treatment Upcoming Encounters Date Type Department Care Team (Late st Contact Info) Description 06/19/2023 1:30 PM EST Office Visit Nephrology [address] [place] [address] Luisa Ching PA-C 200 [facility] [place] [address] 06/24/2023 3:00 PM EST Nutrition Services [facility], [facility] [address] [facility] [place] [address] Mery Calderon RDN [address] [facility] [place] [address] 06/26/2023 8:30 AM EST Home Visit [facility], [facility] [place] [address] Love Stevens, ANNE MARIE [address] [facility] [place] [address] 07/08/2023 11:00 AM EST Telemedicine Pharmacy, [facility] 200 [facility] [place] [address] Pharmacist1, [facility] [address] [place] [place] [address] 07/14/2023 9:30 AM EST Telemedicine Cardiology [place] [address] [facility] [place] [address] [facility] Card[facility] [address] [facility] [address] 07/22/2023 10:00 AM EST Nurse Only Ancillary [address] [place] [address] [place], Nurse [address] [place] [address] 08/06/2023 10:00 AM EST Office Visit Cardiology, [facility] [address] [facility] [place] [address] Evita Brennan CRNP [address] [facility] [place] [address] 10/06/2023 2:10 PM EDT Office Visit Family Medicine [address] [place] [phone] Bárbara Rios[address] [place] [address] 10/27/2023 8:30 AM EDT Office Visit Sleep Disorders [facility]tr [facility] [address] [place] [phone] Lindsey Sheikh CRNP [address] [place] [address] Scheduled Procedures Name Priority Associated Diagnoses Date/Ti [...] this encounter Medical Devices Implanted Type Area Video Editing Intern Device Identifier Shelf Expiration Date Model / Serial / Lot Lens Intraoc 21.0 - [id number] - [id number] Implanted:Qty: 1 on 01/22/2017 by Cheko Mcnamara MD at OR [facility] Right: Eye [employer] 08/05/2021 [id number] / [id number] / [id number] Lens Intraoc 21.5 - [id number] - [id number] Implanted:Qty: 1 on 02/03/2017 by Cheko Mcnamara MD at OR [facility] Left: Eye [employer]OM[employer] 09/02/2021 [id number] / [id number] / [id number] documented as of this encounter Advance Directives [...] and were consensually agreed upon. Care Teams Jumpbasting Armhole Baster Relationship Specialty Start Date End Date Bárbara Rios DO [address] [place] [address] [place] [address] PCP - General Internal Medicine 08/16/21 documented as of this encounter
--- OUTSIDE RECORDS SUMMARY | 2023-10-20 23:05 | External Medical Summary | Summary of Care ---
Author Name Unknown Organization [facility] Address [address] [place] [address] Phone [phone] Care Team Providers Care Painting Contractor Name Role Phone Rios Bárbara Sneed Primary Care Provider [phone] Reason for Visit * Reason Comments Dosage Adjustment Via Phone (anticoag Cl inic) Medication Discussion Encounter Details Date Type Department Care Team (Late st Contact Info) Description 05/13/2023 3:10 PM [facility] Telemedicine Pharmacy, [facility] 200 [facility] [place] [address] Pharmacist1, [facility] [address] [place] [address] Encounter for long-term (current) use of medications*; Type 2 diabetes mellitus with hemoglobin A1c goal of less than 8.0% ([facility]) Allergies Active Allergy Reactions Criticality Noted Date Comments Other Allergy (See Comments) Rash Low 10/13/2022 1+ cocamidopropyl betaine Sglt2 Inhibitors Other (Please comment) High 09/04/2020 Genital infection Sulfa Antibiotics Rash 10/15/2016 documented as of this encounter (statuses as of 05/13/2023) Medications Medication Sig Dispensed Refills Start Date [...] 32 UNITS WITH DINNER PLUS CORRECTION PER [facility] OR DIRECTED UP TO [...] a week. 9 mL 3 3 Active Bqiyf-5-owyh Ethyl Esters 1 GM Oral Capsule (Lovaza) [...] hemoglobin A1c goal of less than 8.0% ([facility]) Inject 1 mg under the [...] as of this encounter (statuses as of 05/13/2023) Active Problems Problem Noted Date Diagnosed Date [...] has been better controlled recently. Monitor using Envoy Cindy. Hypertensive heart and kidne y disease [...] as of this encounter (statuses as of 05/13/2023) Resolved Problems Problem Noted Date Diagnosed Date [...] as of this encounter (statuses as of 05/13/2023) Immunizations Name Administration Dates Next Due COVID-19 mRNA, LNP-s, No Pre serve, 2-Dose Series (Moderna) 12/10/2020,11/12/2020 Hepatitis B, 20+ yrs 01/04/2018,08/03/2017,07/03 Pneumococcal Conjugate Vacci ne, 20-valent ([id number]) 06/09/2022 Pneumococcal Polysaccharide PPV23 (Pneumovax) 03/06/2020 SEASONAL [...] this encounter Progress Notes * Satinder Mar, [facility] - 05/13/2023 10:19 AM EST Images from the original note were not included. PHARMACY MTM PROGRESS NOTE [facility] ([facility]) [address] [place] [address] Service Delivery Delivery Method: Phone Outcome: CMR [...] hemoglobin A1c goal of less than 7.0% ([facility]) Betamethasone Dipropionate 0.05 % External Cream [...] goal LDL below 100, Mixed dyslipidemia FreeStyle Cindy 2 Sensor Bárbara Rios, DO Use as [...] 32 UNITS WITH DINNER PLUS CORRECTION PER [facility] OR DIRECTED UP TO 120 UNITS PER DAY Associated Diagnoses: Type 2 diabetes mellitus with hemoglobin A1c goal of less than 7.0% (HCC) Binmd-4-pffw Ethyl Esters 1 GM Oral Capsule (Lovaza) [...] AM 09/08/2017 -Needs to get labs at [facility] on [address] TIPs None Action Plan None Takeaway Service Information Date CMR was completed: 05/13/2023 Who was the recipient of the CMR service: Patient Was the patient in a intermediate project manager care (LTC) facility when the CMR was completed? No Pharmacist's availability for questions: Thursday-Thursday 8:00am-4:30pm Takeaway Information Will the Patient Takeaway be sent to the Patient or someone else? Patient Language Template for the Patient Takeaway: Anguillan Additional notes for the Patient Takeaway (optional): n/a I attest that I have reviewed and updated the patient's conditions, allergies, and medications to the best of my ability. Patient Access: Is patient utilizing [facility]? Yes Is patient utilizing MyChart? Yes Additional Call Notes N/a Satinder Mar [facility] Clinical Pharmacist [facility] ([facility]) 05/13/2023, 10:19 AM documented in this encounter Plan of Treatment Upcoming Encounters Date Type Department Care Team (Late st Contact Info) Description 05/19/2023 12:30 PM EST [facility], [facility] [address] [facility] [place] [address] Love Stevens, ANNE MARIE [address] [place] [address] 05/25/2023 9:00 AM EST Nutrition Services [facility], [facility] [address] [facility] [place] [address] Mery Calderon RDN [address] [facility] [place] [address] 06/19/2023 1:30 PM EST Office Visit Nephrology [address] [place] [address] Luisa Ching PA-C [address] [facility] [place] [address] 07/08/2023 11:00 AM EST Telemedicine Pharmacy, [facility] 200 [facility] [place] [address] Pharmacist1, [facility] [address] [place] [address] 07/14/2023 9:30 AM EST Telemedicine Cardiology [place] [facility] [address] [facility] 400 [facility] [place] [address] 07/22/2023 10:00 AM EST Nurse Only Ancillary [address] [place] [address] [place], Nurse [address] [place] [address] 08/06/2023 10:00 AM EST Office Visit Cardiology, [facility] [address] [place] [address] Evita Brennan CRNP [address] [place] [address] 10/06/2023 2:10 PM EDT Office Visit Family Medicine [address] [place] [phone] Bárbara Rios[address] [place] [address] 10/27/2023 8:30 AM EDT Office Visit Sleep Disorders Ctr [facility] [address] [place] [phone] Lindsey Sheikh CRNP 132 [facility] [place] [address] Scheduled Procedures Name Priority Associated Diagnoses Date/Ti [...] this encounter Medical Devices Implanted Type Area Parts Sales Manager Device Identifier Shelf Expiration Date Model / Serial / Lot Lens Intraoc 21.0 - [id number] - [id number] Implanted:Qty: 1 on 01/22/2017 by Cheko Mcnamara MD at OR [facility] Right: Eye BAUSCH & LOMB 08/05/2021 [id number] / [id number] / [id number] Lens Intraoc 21.5 - [id number] - [id number] Implanted:Qty: 1 on 02/03/2017 by Cheko Mcnamara MD at [facility] Left: Eye BAUSCH & LOMB 09/02/2021 [id number] / [id number] / [id number] documented as of this encounter Visit Diagnoses [...] and were consensually agreed upon. Care Teams Painting Contractor Relationship Specialty Start Date End Date Bárbara Rios DO [address] [place] [address] [place] [address] PCP - General Internal Medicine 08/16/21 documented as of this encounter
--- OUTSIDE RECORDS SUMMARY | 2023-10-20 23:05 | External Medical Summary | Summary of Care ---
Author Name Unknown Organization [facility] Address [address] [facility] [place] [address] Phone [phone] Care Team Providers Care Belt Loop Cutter Name Role Phone RiosBárbara bowman Primary Care Provider [phone] Reason for Visit * Reason Comments Diabetes Management Dosage Adjustment Via Phone (anticoag Cl inic) Encounter Details Date Type Department Care Team (Late st Contact Info) Description 05/13/2023 1:40 PM [facility] Telemedicine Pharmacy, [facility] 200 [place] [address] Pharmacist1, [facility] 200 [facility] [place] [address] Type 2 diabetes mellitus with hemoglobin A1c goal of less than 8.0% ([facility])* Allergies Active Allergy Reactions Criticality Noted [...] 32 UNITS WITH DINNER PLUS CORRECTION PER [facility] OR DIRECTED UP TO [...] a week. 9 mL 3 04/09/2023 Active Xcqhw-0-dvcb Ethyl Esters 1 GM Oral Capsule (Lovaza) [...] yrs 01/04/2018,08/03/2017,07/03 Pneumococcal Conjugate Vacci ne, 20-valent ([id number]) 06/09/2022 Pneumococcal Polysaccharide PPV23 (Pneumovax) 03/06/2020 SEASONAL [...] this encounter Progress Notes * Satinder Mar, [facility] - 05/13/2023 9:51 AM EST Images from the original note were not included. After connecting to the patient via telephone, the patient was identified by name and date of . Patient was then informed that this was a telephone call only visit. The patient agreed to participate. Visit Disposition: Routine follow-up Total call duration was 20 minutes. Medication Therapy Disease Management Clinic - Diabetes Management Progress Note Tony Delong, identified by name and date of , is a 63 year old male being seen for diabetes management/education. Patient presents for return diabetic visit. DIABETES: Current diabetic medications: Ozempic 2mg weekly - patient assistance (1st week of 2mg) Tresiba (U200) 100 units twice daily Novolog 26 units with breakfast, 26 units with lunch, 32 units with dinner + CF 1:15 over 150 (new sheet given to patient) Medication Injection Site: Abdomen and Thigh Lifestyle: Diet: unchanged Glucose Review/SMBG: Readings obtained from patient device Hypoglycemia: Does your blood sugar go below 70 mg/dL? No Hyperglycemia symptoms present: none Recent Labs Units 04/01/23 1531 12/17/22 1438 09/02/22 1237 HEMOGLOBIN A1C - [facility] % 7.2* 9.4* 8.6* Recent Labs Units 04/27/23 1403 04/21/23 1315 04/01/23 1531 ESTIMATED GLOMERULAR FILTRATION RATE - [facility] mL/min 39* 43* 44* CREATININE - [facility] mg/dL 1.9* 1.8* 1.7* HYPERTENSION: Patient on ACEi/ARB: yes BP Readings from Last 3 Encounters: 04/16/23 158/70 04/01/23 152/84 03/16/23 142/70 Blood pressure at goal: yes HYPERLIPIDEMIA: Patient is taking moderate or high intensity statin: yes (PCSK9i) HEALTH MAINTENANCE REVIEW: Health Maintenance Due Topic Date Due HIV Screening Never done Alpha-1 Antitrypsin Never done COLONOSCOPY-EVERY 5 YRS AGES 18-100 01/01/2023 COVID-19 Vaccine ( season) 2023 ASSESSMENT & PLAN: ICD-10-CM 1. Type 2 diabetes mellitus with hemoglobin A1c goal of less than 8.0% (HCC) E11.9 BG Readings - Blood sugars Elevated. Patient denies changes in lifestyle. BG averaging 204 over thelast 2 weeks Medications - Reviewed current regimen, patient is adherent to regimen. Patient just titrated up to2mg dose of ozempic. Has only taken 1 dose so far. Will wait until next visit to adjust insulin dose further given the likelihood his blood sugars may decrease with the increased dose of ozempic overthe next 6 weeks. Diet, Exercise, Lifestyle - No significant lifestyle changes since last visit. Patient is agreeable to SMBG 4 time(s) daily. Patient aware to contact clinic if any hypoglycemia before next visit. MEDICATION CHANGES: no change Diabetic Medications: Ozempic 2mg weekly - patient assistance (1st week of 2mg) Tresiba (U200) 100 units twice daily Novolog 26 units with breakfast, 26 units with lunch, 32 units with dinner + CF 1:15 over 150 (newsheet given to patient) HEALTH MAINTENANCE INTERVENTIONS: Labs: Ordered & Scheduled: HgA1c and BMP/CMP Immunizations: Up to Date Foot Exam: Up to Date Eye Exam: Up to Date Annual Wellness Visit: N/A FOLLOW UP: Return to clinic in 8 weeks 07/08/2023 Satinder Mar [facility] Clinical Pharmacist - International Affairs Vice President Medication Therapy Management Clinic 05/13/2023, 10:01 AM documented in this encounter Plan of Treatment Upcoming Encounters Date Type Department Care Team (Latest Contact Info) Description 05/13/2023 3:10 PM EST Telemedicine Pharmacy, [facility] [address] [place] [address] Pharmacist1, [facility] [address] [place] [address] Encounter for long-term (current) use of medications*; Type 2 diabetes mellitus with hemoglobin A1c goal of less than 8.0% ([facility]) 05/19/2023 12:30 PM EST [facility], [place] [facility] [address] [place] [address] Love Stevens, RN [address] [place] [address] 05/25/2023 9:00 AM EST Nutrition Services [facility], [facility] [address] [facility] [place] [address] Mery Calderon RDN [address] [facility] [place] [address] 06/19/2023 1:30 PM EST Office Visit Nephrology [address] [place] [address] Luisa Ching PA-C [address] [place] [address] 07/08/2023 11:00 AM EST Telemedicine Pharmacy, [facility] [address] [place] [address] Pharmacist1, [facility] [address] [place] [address] 07/14/2023 9:30 AM EST [facility] [address] [facility] [place] [address] [facility] 400 [facility] [place] [address] 07/22/2023 10:00 AM EST Nurse Only Ancillary [address] [place] [address] [place], Nurse [address] [place] [address] 08/06/2023 10:00 AM EST Office Visit Cardiology, [facility] [address] [place] [address] Evita Brennan CRNP [address] [place] [address] 10/06/2023 2:10 PM EDT Office Visit Family Medicine [address] [place] [phone] Bárbara Rios[address] [place] [address] 10/27/2023 8:30 AM EDT Office Visit [facility] Disorders Ctr [facility] [address] [place] [phone] Lindsey Sheikh CRNP 132 [facility] [place] [address] Scheduled Orders Name Type Priority Associated Diagnoses Orde r Schedule HEMOGLOBIN A1C Lab Routine Type 2 diabetes mellitus with hemoglobin A1c goal of less than 8.0% (HCC) Expected: 05/13/2023 (Approximate), Expires: 05/13/2024 BASIC METABOLIC PANEL Lab Routine Type 2 diabetes mellitus with hemoglobin A1c goal of less than 8.0% (HCC) Expected: 05/13/2023 (Approximate), Expires: 05/13/2024 Scheduled Procedures Name Priority Associated Diagnoses Date/Ti [...] this encounter Medical Devices Implanted Type Area Applications Trainer Device Identifier Shelf Expiration Date Model / Serial / Lot Lens Intraoc 21.0 - [id number] - [id number] Implanted:Qty: 1 on 01/22/2017 by Cheko Mcnamara MD at OR [facility] Right: Eye BAUSCH & LOMB 08/05/2021 [id number] / [id number] / [id number] Lens Intraoc 21.5 - [id number] - [id number] Implanted:Qty: 1 on 02/03/2017 by Cheko Mcnamara MD at [facility] Left: Eye BAUSCH & LOMB 09/02/2021 [id number] / [id number] / [id number] documented as of this encounter Visit Diagnoses Diagnosis Type 2 diabetes mellitus with hemoglobin A1c goal of less than 8.0% (HCC)- Primary Encounter for long-term (current) use of medications- [...] and were consensually agreed upon. Care Teams Belt Loop Cutter Relationship Specialty Start Date End Date Bárbara Rios DO [address] [place] [address] [place] [address] PCP - General Internal Medicine 08/16/21 documented as of this encounter
--- OUTSIDE RECORDS SUMMARY | 2023-10-20 23:05 | External Medical Summary | Summary of Care ---
Author Name Unknown Organization [facility] Address [address] [facility] [place] [address] Phone [phone] Care Team Providers Care Forex Trader Name Role Phone Bárbara Rios Primary Care Provider [phone] Reason for Visit * Reason Onset Date Comments [facility]: Maintenance 05/12/2023 Encounter Details Date Type Department Care Team (Late st Contact Info) Description 05/12/2023 10:00 AM EST Scheduled Telephone [facility], [facility] [address] [place] [address] Coordinator, [facility] [address] [place] [address] Allergies Active Allergy Reactions Criticality Noted Date Comments Other Allergy (See Comments) Rash Low 10/13/2022 1+ cocamidopropyl betaine Sglt2 Inhibitors Other (Please comment) High 09/04/2020 Genital infection Sulfa Antibiotics Rash 10/15/2016 documented as of this encounter (statuses as of 05/12/2023) Medications Medication Sig Dispensed Refills Start Date [...] when flaring 60 g 2 06/11/2022 Active Triamcinolone Acetonide 0.1 % External Ointment (Aristocort)Indicat ions:Allergic dermatitis due to other chemical product Apply 2x daily (or more if itchy instead of scratching) to rash on scalp/trunk/arms and other areas rash appears until resolved 454 g 0 10/13/2022 Active Betamethasone Dipropionate 0.05 % External Cream [...] 32 UNITS WITH DINNER PLUS CORRECTION PER [facility] OR DIRECTED UP TO [...] a week. 9 mL 3 04/09/2023 Active Irezn-5-fzjy Ethyl Esters 1 GM Oral Capsule (Lovaza) Take 2 Capsules by mouth in the morning and 2 Capsules before bedtime. 360 Capsule 1 04/14/2023 Active Ozempic (1 MG/DOSE) 4 MG/3ML Subcutaneous Solution Pen-injector (Semaglutide (1 MG/DOSE))Indication s:Type 2 diabetes mellitus with hemoglobin A1c goal of less than 8.0% (HCC) Inject 1 mg under the skin once a week. Until 2mg available 3 mL 1 04/17/2023 Active Carvedilol 25 MG Oral Tablet (Coreg)Indications: [...] as of this encounter (statuses as of 05/12/2023) Active Problems Problem Noted Date Diagnosed Date [...] has been better controlled recently. Monitor using [employer] Cindy. Hypertensive heart and kidne y disease [...] as of this encounter (statuses as of 05/12/2023) Resolved Problems Problem Noted Date Diagnosed Date [...] as of this encounter (statuses as of 05/12/2023) Immunizations Name Administration Dates Next Due COVID-19 mRNA, LNP-s, No Pre serve, 2-Dose Series (Moderna) 12/10/2020,11/12/2020 Hepatitis B, 20+ yrs 01/04/2018,08/03/2017,07/03 Pneumococcal Conjugate Vacci ne, 20-valent ([id number]) 06/09/2022 Pneumococcal Polysaccharide PPV23 (Pneumovax) 03/06/2020 SEASONAL [...] encounter Miscellaneous Notes * Telephone Encounter - Carlos Arias RN - 05/12/2023 1:09 PM EST Images from the original note were not included. PC placed to patient to f/u after DTP. 2lb weight gain over night. Pt doubled torsemide 05/10 and 05/11. Per [facility] wt is down 5lbs since yesterday. Spoke with patient . Identified by name & . States I feel fine. I feel pretty good at this weight when I get up around 296 is start feeling SOB. Denies increased swelling in legs and abdomen. Denies increased SOB. Offers no health complaints, concerns, or needs at this time. Patient encouraged to call [facility] intake phone number for all urgent, non-emergent health issues, phone number provided. documented in this encounter Plan of Treatment Upcoming Encounters Date Type Department Care Team (Late st Contact Info) Description 05/13/2023 1:40 PM EST Telemedicine Pharmacy, [address] [place] [address] Pharmacist1, [facility] [address] [place] [address] 05/13/2023 2:10 PM EST [facility], [facility] [place] [address] [place] [address] Pharmacist1, [facility] [address] [place] [address] 05/19/2023 12:30 PM EST [facility], [facility] 132 [facility] [place] [address] Love Stevens, ANNE MARIE 132 [facility] [place] [address] 05/25/2023 9:00 AM EST Nutrition Services [facility], [facility] [address] [facility] [place] [address] Mery Calderon, RDN [address] [facility] [place] [address] 06/19/2023 1:30 PM EST Office Visit Nephrology [address] [place] [address] Luisa Ching PA-C [address] [place] [address] 07/14/2023 9:30 AM EST Telemedicine Cardiology [facility] 400 [facility] [place] [address] [facility] 400 [facility] [place] [address] 07/22/2023 10:00 AM EST Nurse Only Ancillary [address] [place] [address] [place], Nurse [address] [place] [address] 08/06/2023 10:00 AM EST Office Visit Cardiology, [facility] [address] [place] [address] Evita Brennan CRNP [address] [place] [address] 10/06/2023 2:10 PM EDT Office Visit Family Medicine [address] [place] [phone] Bárbara Rios[address] [place] [address] 10/27/2023 8:30 AM EDT Office Visit Sleep Disorders Ctr [facility] [address] [place] [phone] Lindsey Sheikh CRNP [address] [place] [address] Scheduled Procedures Name Priority Associated Diagnoses Date/Ti [...] this encounter Medical Devices Implanted Type Area Hookman Device Identifier Shelf Expiration Date Model / Serial / Lot Lens Intraoc 21.0 - [id number] - [id number] Implanted:Qty: 1 on 01/22/2017 by Cheko Mcnamara MD at OR [facility] Right: Eye BAUSCH & LOMB 08/05/2021 [id number] / [id number] / [id number] Lens Intraoc 21.5 - [id number] - [id number] Implanted:Qty: 1 on 02/03/2017 by Cheko Mcnamara MD at OR [facility] Left: Eye BAUSCH & LOMB 09/02/2021 [id number] / [id number] / [id number] documented as of this encounter Advance Directives [...] and were consensually agreed upon. Care Teams Forex Trader Relationship Specialty Start Date End Date Bárbara Rios DO [address] [place] [address] [place] [phone] PCP - General Internal Medicine 08/16/21 documented as of this encounter
--- OUTSIDE RECORDS SUMMARY | 2023-10-20 23:05 | External Medical Summary | Summary of Care ---
Author Name Unknown Organization [facility] Address [address] [place] [address] Phone [phone] Care Team Providers Care Computing Consultant Name Role Phone Bárbara Rios Primary Care Provider [phone] Reason for Visit * Reason Onset Date Comments Appointment 05/14/2023 Encounter Details Date Type Department Care Team (Late st Contact Info) Description 05/14/2023 Telephone [facility], [place] [address] [place] [address] [place] [address] Services, Scheduling [address] [place] [address] Appointment (//) Allergies Active Allergy Reactions Criticality Noted Date Comments Other Allergy (See Comments) Rash Low 10/13/2022 1+ cocamidopropyl betaine Sglt2 Inhibitors Other (Please comment) High 09/04/2020 Genital infection Sulfa Antibiotics Rash 10/15/2016 documented as of this encounter (statuses as of 05/14/2023) Medications Medication Sig Dispensed Refills Start Date [...] Evolocumab 140 MG/ML Subcutaneous Solution Auto-injector (Repatha BonteraClick)Indicatio ns:Dyslipidemia, goal LDL below 100,Mixed dyslipidemia Inject [...] 32 UNITS WITH DINNER PLUS CORRECTION PER [facility] OR DIRECTED UP TO [...] a week. 9 mL 3 04/09/2023 Active Dlfsc-3-gtny Ethyl Esters 1 GM Oral Capsule (Lovaza) [...] as of this encounter (statuses as of 05/14/2023) Active Problems Problem Noted Date Diagnosed Date [...] as of this encounter (statuses as of 05/14/2023) Resolved Problems Problem Noted Date Diagnosed Date [...] as of this encounter (statuses as of 05/14/2023) Immunizations Name Administration Dates Next Due COVID-19 mRNA, LNP-s, No Pre serve, 2-Dose Series (Moderna) 12/10/2020,11/12/2020 Hepatitis B, 20+ yrs 01/04/2018,08/03/2017,07/03 Pneumococcal Conjugate Vacci ne, 20-valent ([id number]) 06/09/2022 Pneumococcal Polysaccharide PPV23 (Pneumovax) 03/06/2020 SEASONAL [...] Telephone Encounter - Violette Johnson OSA - 05/14/2023 9:07 AM EST Request to cx and rs the appt on 05/19 and I found 05/26@4 and called and he was agreeable documented in this encounter Plan of Treatment Upcoming Encounters Date Type Department Care Team (Late st Contact Info) Description 05/25/2023 9:00 AM EST Nutrition Services [facility], [facility] [address] [facility] [place] [address] Mery Calderon RDN [address] [facility] [place] [address] 05/26/2023 4:00 PM EST Home Visit [facility], [facility] 132 [facility] [place] [address] Love Stevens, ANNE MARIE 132 [facility] [place] [address] 06/19/2023 1:30 PM EST Office Visit Nephrology [address] [place] [address] Luisa Ching PA-C [address] [place] [address] 07/08/2023 11:00 AM EST Telemedicine Pharmacy, [employer] [address] [place] [address] Pharmacist1, [facility] [address] [place] [address] 07/14/2023 9:30 AM EST Telemedicine Cardiology Heather Stephens [address] [place] [address] Heather [facility] Cardiology [address] [place] [address] 07/22/2023 10:00 AM EST Nurse Only Ancillary [address] [place] [address] [place], Nurse Annual [address] [place] [address] 08/06/2023 10:00 AM EST Office Visit Cardiology, [facility] [address] [place] [address] Evita Brennan CRNP [address] [place] [address] 10/06/2023 2:10 PM EDT Office Visit Family Medicine [address] [place] [phone] Bárbara Rios[address] [place] [address] 10/27/2023 8:30 AM EDT Office Visit Sleep Disorders [facility]tr [facility] [address] [place] [phone] Lindsey Sheikh CRNP [address] [place] [address] Scheduled Procedures Name Priority Associated Diagnoses Date/Ti [...] this encounter Medical Devices Implanted Type Area Rad Tech Device Identifier Shelf Expiration Date Model / Serial / Lot Lens Intraoc 21.0 - [id number] - [id number] Implanted:Qty: 1 on 01/22/2017 by Cheko Mcnamara MD at OR [facility] Right: Eye BAUSCH & LOMB 08/05/2021 [id number] / [id number] / [id number] Lens Intraoc 21.5 - [id number] - [id number] Implanted:Qty: 1 on 02/03/2017 by Cheko Mcnamara MD at OR [facility] Left: Eye BAUSCH & LOMB 09/02/2021 [id number] / [id number] / [id number] documented as of this encounter Advance Directives [...] and were consensually agreed upon. Care Teams Computing Consultant Relationship Specialty Start Date End Date Bárbara Rios DO [address] [place] [address] [place] [phone] PCP - General Internal Medicine 08/16/21 documented as of this encounter
--- OUTSIDE RECORDS SUMMARY | 2023-10-20 23:05 | External Medical Summary | Summary of Care ---
Author Name Unknown Organization [facility] Address [address] [facility] [place] [address] Phone [phone] Care Team Providers Care Assistant Bookkeeper Name Role Phone Rios Bárbara Sneed Primary Care Provider [phone] Reason for Visit * Reason Comments Dosage Adjustment Via Phone (anticoag Cl inic) Medication Discussion Encounter Details Date Type Department Care Team (Late st Contact Info) Description 05/13/2023 3:10 PM [facility] Telemedicine Pharmacy, [facility] 200 [facility] [place] [address] Pharmacist1, [facility] 200 [facility] [address] Encounter for long-term (current) use of medications*; Type 2 diabetes mellitus with hemoglobin A1c goal of less than 8.0% ([facility]) Allergies Active Allergy Reactions Criticality [...] 32 UNITS WITH DINNER PLUS CORRECTION PER [facility] OR DIRECTED UP TO [...] a week. 9 mL 3 3 Active Stjpf-9-rlew Ethyl Esters 1 GM Oral Capsule (Lovaza) [...] A1c goal of less than 8.0% ([facility]) Inject 1 mg under the [...] has been better controlled recently. Monitor using [employer] Cindy. Hypertensive heart and kidne y disease [...] yrs 01/04/2018,08/03/2017,07/03 Pneumococcal Conjugate Vacci ne, 20-valent ([id number]) 06/09/2022 Pneumococcal Polysaccharide PPV23 (Pneumovax) 03/06/2020 SEASONAL [...] this encounter Progress Notes * Satinder Mar, [facility] - 05/13/2023 10:19 AM EST Images from the original note were not included. PHARMACY MTM PROGRESS NOTE [facility] [address] [place] [address] Service Delivery Delivery Method: Phone Outcome: CMR [...] A1c goal of less than 7.0% ([facility]) Betamethasone Dipropionate 0.05 % External [...] 32 UNITS WITH DINNER PLUS CORRECTION PER [facility] OR DIRECTED UP TO 120 UNITS PER DAY Associated Diagnoses: Type 2 diabetes mellitus with hemoglobin A1c goal of less than 7.0% (HCC) Ogkay-0-qyue Ethyl Esters 1 GM Oral Capsule (Lovaza) [...] AM 09/08/2017 -Needs to get labs at [facility] on [address] TIPs None Action Plan None Takeaway Service Information Date CMR was completed: 05/13/2023 Who was the recipient of the CMR service: Patient Was the patient in a terminal make up operator care (LTC) facility when the CMR was completed? No Pharmacist's availability for questions: Thursday-Thursday 8:00am-4:30pm Takeaway Information Will the Patient Takeaway be sent to the Patient or someone else? Patient Language Template for the Patient Takeaway: Wallisian Additional notes for the Patient Takeaway (optional): n/a I attest that I have reviewed and updated the patient's conditions, allergies, and medications to the best of my ability. Patient Access: Is patient utilizing [facility]? Yes Is patient utilizing MyChart? Yes Additional Call Notes N/a Satinder Mar [facility] Clinical Pharmacist [facility] ([facility]) 05/13/2023, 10:19 AM documented in this encounter Plan of Treatment Upcoming Encounters Date Type Department Care Team (Late st Contact Info) Description 05/19/2023 12:30 PM EST Home Visit [facility], [facility] 132 [facility] [place] [address] Love Stevens, ANNE MARIE [address] [place] [address] 05/25/2023 9:00 AM EST Nutrition Services [facility], [facility] [address] [facility] [place] [address] Mery Calderon RDN [address] [facility] [place] [address] 06/19/2023 1:30 PM EST Office Visit Nephrology [address] [place] [address] Luisa Ching PA-C 200 [facility] [place] [address] 07/08/2023 11:00 AM EST Telemedicine Pharmacy, [facility] 200 [facility] [place] [address] Pharmacist1, [facility] 200 [facility] [address] 07/14/2023 9:30 AM EST Telemedicine Cardiology [place] [facility] [address] [facility] 400 [facility] [place] [address] 07/22/2023 10:00 AM EST Nurse Only Ancillary [address] [place] [address] [place], Nurse [address] [place] [address] 08/06/2023 10:00 AM EST Office Visit Cardiology, [facility] [address] [place] [address] Evita Brennan CRNP [address] [place] [address] 10/06/2023 2:10 PM EDT Office Visit Family Medicine [address] [place] [phone] Bárbara Rios[address] [place] [address] 10/27/2023 8:30 AM EDT Office Visit Sleep Disorders Ctr [facility] [address] [place] [phone] Lindsey Sheikh CRNP 132 [facility] [place] [address] Scheduled Procedures Name Priority Associated Diagnoses Date/Ti [...] this encounter Medical Devices Implanted Type Area Counter Clerk Tractor Parts Device Identifier Shelf Expiration Date Model / Serial / Lot Lens Intraoc 21.0 - [id number] - [id number] Implanted:Qty: 1 on 01/22/2017 by Cheko Mcnamara MD at OR [facility] Right: Eye BAUSCH & LOMB 08/05/2021 [id number] / [id number] / [id number] Lens Intraoc 21.5 - [id number] - [id number] Implanted:Qty: 1 on 02/03/2017 by Cheko Mcnamara MD at [facility] Left: Eye BAUSCH & LOMB 09/02/2021 [id number] / [id number] / [id number] documented as of this encounter Visit Diagnoses [...] and were consensually agreed upon. Care Teams Assistant Bookkeeper Relationship Specialty Start Date End Date Bárbara Rios DO [address] [place] [address] [place] [address] PCP - General Internal Medicine 08/16/21 documented as of this encounter
--- OUTSIDE RECORDS SUMMARY | 2023-10-20 23:05 | External Medical Summary | Summary of Care ---
Author Name Unknown Organization [facility] Address [address] [facility] [place] [address] Phone [phone] Care Team Providers Care Neonatal Surgeon Name Role Phone Rios Bárbara Sneed Primary Care Provider [phone] Reason for Visit * Reason Comments Dosage Adjustment Via Phone (anticoag Cl inic) Medication Discussion Encounter Details Date Type Department Care Team (Late st Contact Info) Description 05/13/2023 3:10 PM [facility] Telemedicine Pharmacy, [facility] 200 [facility] [place] [address] Pharmacist1, [facility] 200 [place] [address] Encounter for long-term (current) use of medications*; Type 2 diabetes mellitus with hemoglobin A1c goal of less than 8.0% ([facility]) Allergies Active Allergy Reactions Criticality Noted Date [...] 32 UNITS WITH DINNER PLUS CORRECTION PER [facility] OR DIRECTED UP TO [...] a week. 9 mL 3 3 Active Dacfb-7-uwef Ethyl Esters 1 GM Oral Capsule (Lovaza) [...] less than 8.0% ([facility]) Inject 1 mg under the skin once [...] has been better controlled recently. Monitor using [employer] Cindy. Hypertensive heart and kidne y disease [...] yrs 01/04/2018,08/03/2017,07/03 Pneumococcal Conjugate Vacci ne, 20-valent ([id number]) 06/09/2022 Pneumococcal Polysaccharide PPV23 (Pneumovax) 03/06/2020 SEASONAL [...] NOTE [facility]) [address] [place] [address] Service Delivery Delivery Method: Phone Outcome: CMR [...] of less than 7.0% ([facility]) Betamethasone Dipropionate 0.05 % External Cream (Diprosone) [...] 32 UNITS WITH DINNER PLUS CORRECTION PER [facility] OR DIRECTED UP TO 120 UNITS PER DAY Associated Diagnoses: Type 2 diabetes mellitus with hemoglobin A1c goal of less than 7.0% (HCC) Ewldm-8-fpsx Ethyl Esters 1 GM Oral Capsule (Lovaza) [...] with chronic diastolic congestive heartfailure and stage 4 chronic kidney disease (HCC) [...] 200 UNIT/ML Subcutaneous Solution Pen-injector Bárbara Rios, INJECT UNDER THE SKIN 100 UNITS TWICE DAILY OR DIRECTED Associated Diagnoses: Type 2 diabetes mellitus with hemoglobin A1c goal of less than 7.0% (HCC) Ongoing Comment Leta Oviedo MD 09/08/2017 9:30 AM 09/08/2017 -Needs to get labs at [facility] on [address] TIPs None Action Plan None Takeaway Service Information Date CMR was completed: 05/13/2023 Who was the recipient of the CMR service: Patient Was the patient in a terminal operator care (LTC) facility when the CMR was completed? No Pharmacist's availability for questions: Thursday-Thursday 8:00am-4:30pm Takeaway Information Will the Patient Takeaway be sent to the Patient or someone else? Patient Language Template for the Patient Takeaway: Uzbek Additional notes for the Patient Takeaway (optional): [...] Care Team (Latest Contact Info) Description 05/13/2023 1:40 PM EST Telemedicine Pharmacy, [facility] 200 [facility] [place] [address] Pharmacist1, [facility] [address] [place] [address] Type 2 diabetes mellitus with hemoglobin A1c goal of less than 8.0% ([facility])* 05/19/2023 12:30 PM EST Home [facility], [facility] 132 [facility] [place] [address] Love Stevens, ANNE MARIE 132 [facility] [place] [address] 05/25/2023 9:00 AM EST Nutrition Services [facility], [facility] [address] [facility] [place] [address] Mery Calderon, VIVIANAN [address] [facility] [place] [address] 06/19/2023 1:30 PM EST Office Visit Nephrology [address] [place] [address] Luisa Ching PA-C [address] [place] [address] 07/08/2023 11:00 AM EST Telemedicine Pharmacy, [facility] [place] [address] [place] [address] Pharmacist1, [facility] [address] [place] [address] 07/14/2023 9:30 AM EST Telemedicine Cardiology Heather Stephens [address] [place] [address] Heather [facility] Cardiology [address] [place] [address] 07/22/2023 10:00 AM EST Nurse Only Ancillary [address] [place] [address] [place], Nurse Annual [address] [place] [address] 08/06/2023 10:00 AM EST Office Visit Cardiology, [facility] [address] [place] [address] Evita Brennan CRNP [address] [place] [address] 10/06/2023 2:10 PM EDT Office Visit Family Medicine [address] [place] [phone] Bárbara Rios[address] [place] [address] 10/27/2023 8:30 AM EDT Office Visit Sleep Disorders Ctr [facility] [address] [place] [phone] Lindsey Sheikh CRNP [address] [place] [address] Scheduled Procedures Name Priority Associated Diagnoses Date/Ti [...] this encounter Medical Devices Implanted Type Area Assistant Produce Manager Device Identifier Shelf Expiration Date Model / Serial / Lot Lens Intraoc 21.0 - [id number] - [id number] Implanted:Qty: 1 on 01/22/2017 by Cheko Mcnamara MD at OR [facility] Right: Eye BAUSCH & LOMB 08/05/2021 [id number] / [id number] / [id number] Lens Intraoc 21.5 - [id number] - [id number] Implanted:Qty: 1 on 02/03/2017 by Cheko Mcnamara MD at OR [facility] Left: Eye BAUSCH & LOMB 09/02/2021 [id number] / [id number] / [id number] documented as of this encounter Visit Diagnoses [...] and were consensually agreed upon. Care Teams Neonatal Surgeon Relationship Specialty Start Date End Date Bárbara Rios DO [address] [place] [address] [place] [address] PCP - General Internal Medicine 08/16/21 documented as of this encounter
--- OUTSIDE RECORDS SUMMARY | 2023-10-20 23:05 | External Medical Summary | Summary of Care ---
Author Name Unknown Organization [facility] Address [address] [facility] [place] [address] Phone [phone] Care Team Providers Care Environmental Consultant Name Role Phone Bárbara Rios Primary Care Provider [phone] Reason for Visit * Reason Onset Date Comments Patient Assistance Program 05/01/202305/12 FOLLOW UP Encounter Details Date Type Department Care Team (Late st Contact Info) Description 05/01/2023 Telephone Cardiology, [facility] 132 [facility] [place] [phone] [facility] 21 [facility] [place] [address] Patient Assistance Program (05/12 FOLLOW UP ) Allergies Active Allergy Reactions [...] 32 UNITS WITH DINNER PLUS CORRECTION PER [facility] OR DIRECTED UP TO 120 [...] a week. 9 mL 3 3 Active Gszbr-8-mwoa Ethyl Esters 1 GM Oral Capsule (Lovaza) [...] hemoglobin A1c goal of less than 8.0% ([facility]) Inject 1 mg under the skin once [...] has been better controlled recently. Monitor using [employer] Cindy. Hypertensive heart and kidne y disease [...] yrs 01/04/2018,08/03/2017,07/03 Pneumococcal Conjugate Vacci ne, 20-valent ([id number]) 06/09/2022 Pneumococcal Polysaccharide PPV23 (Pneumovax) 03/06/2020 SEASONAL [...] over the Application he filled out from [employer] he said tomorrow or Wendesday he will fax it [employer] mailed it to him to fill out once I get it will fax it over to [employer] for re-enrollment spoke with John he is approved from 12/23/2022 - 07/05/2023. CHAPINCITO Schumacher [employer] [facility] PHONE : [phone] FAX: [phone] 05/11/2023,2:30 PM * Telephone Encounter - Kaylynn Rapp RPh - 05/01/2023 4:26 PM EDT Received fax from [employer] patient due for 2023 re-enrollment of [place]. Applications will be accepted starting 04/24/23 Please help patient reapply documented in this encounter Plan of Treatment Upcoming Encounters Date Type Department Care Team (Late st Contact Info) Description 05/25/2023 9:00 AM EST Nutrition Services [facility], [facility] [address] [facility] [place] [address] Mery Calderon RDN [address] [facility] [place] [address] 05/26/2023 4:00 PM EST [facility], [facility] 132 [facility] [place] [address] Love Stevens, RN 132 [facility] [place] [address] 06/19/2023 1:30 PM EST Office Visit Nephrology [address] [place] [address] Luisa Ching PA-C 200 [facility] [place] [address] 07/08/2023 11:00 AM EST Telemedicine Pharmacy, [facility] [place] 200 [facility] [place] [address] Pharmacist1, [facility] [address] [place] [address] 07/14/2023 9:30 AM EST Telemedicine Cardiology [place] [facility] [place] [address] [facility] 400 [facility] [place] [address] 07/22/2023 10:00 AM EST Nurse Only Ancillary [address] [place] [address] [place], Nurse [address] [place] [address] 08/06/2023 10:00 AM EST Office Visit Cardiology, [facility] [address] [place] [address] Evita Brennan CRNP [address] [place] [address] 10/06/2023 2:10 PM EDT Office Visit Family Medicine [address] [place] [phone] Bárbara R[address] [place] [address] 10/27/2023 8:30 AM EDT Office Visit Sleep Disorders Ctr [facility] [address] [place] [phone] Lindsey Sheikh CRNP [address] [place] [address] Scheduled Procedures Name Priority Associated Diagnoses Date/Ti [...] this encounter Medical Devices Implanted Type Area Washcloth Folder Device Identifier Shelf Expiration Date Model / Serial / Lot Lens Intraoc 21.0 - [id number] - [id number] Implanted:Qty: 1 on 01/22/2017 by Cheko Mcnamara MD at OR [facility] Right: Eye BAUSCH & LOMB 08/05/2021 [id number] / [id number] / [id number] Lens Intraoc 21.5 - [id number] - [id number] Implanted:Qty: 1 on 02/03/2017 by Cheko Mcnamara MD at OR [facility] Left: Eye BAUSCH & LOMB 09/02/2021 [id number] / [id number] / [id number] documented as of this encounter Advance Directives [...] and were consensually agreed upon. Care Teams Environmental Consultant Relationship Specialty Start Date End Date Bárbara Rios DO [address] [place] [address] [place] [address] PCP - General Internal Medicine 08/16/21 documented as of this encounter
--- OUTSIDE RECORDS SUMMARY | 2023-10-20 23:05 | External Medical Summary | Summary of Care ---
Author Name Unknown Organization [facility] Address [address] [facility] [place] [address] Phone [phone] Care Team Providers Care Chief Orthoptist Name Role Phone Bárbara Rios Primary Care Provider [phone] Reason for Visit * Reason Onset Date Comments Patient Assistance Program 05/01/202305/12 FOLLOW UP Encounter Details Date Type Department Care Team (Late st Contact Info) Description 05/01/2023 Telephone Cardiology, [facility] 132 [facility] [place] [phone] [facility] 21 [facility] [place] [address] Patient Assistance Program (05/12 FOLLOW UP ) [...] WITH DINNER PLUS CORRECTION PER [facility] OR DIRECTED UP TO 120 UNITS [...] a week. 9 mL 3 3 Active Sbqfl-8-bwhl Ethyl Esters 1 GM Oral Capsule (Lovaza) [...] hemoglobin A1c goal of less than 8.0% ([facility]) Inject 1 mg under the skin once [...] has been better controlled recently. Monitor using [employer] Cindy. Hypertensive heart and kidne y disease [...] yrs 01/04/2018,08/03/2017,07/03 Pneumococcal Conjugate Vacci ne, 20-valent (Vshktve92) 06/09/2022 Pneumococcal Polysaccharide PPV23 (Pneumovax) 03/06/2020 SEASONAL [...] over the Application he filled out from [employer] he said tomorrow or Wendesday he will fax it [employer] mailed it to him to fill out once I get it will fax it over to [employer] for re-enrollment spoke with John he is approved from 12/23/2022 - 07/05/2023. CHAPINCITO Schumacher MEDICATION GROOVER OPERATOR PHONE : [phone] FAX: [phone] 05/11/2023,2:30 PM * Telephone Encounter - Kaylynn Rapp RPh - 05/01/2023 4:26 PM EDT Received fax from [employer] patient due for 2023 re-enrollment of Elmo. Applications will be accepted starting 04/24/23 Please help patient reapply documented in this encounter Plan of Treatment Upcoming Encounters Date Type Department Care Team (Late st Contact Info) Description 05/25/2023 9:00 AM EST [facility], [facility] [address] [facility] [place] [address] Mery Calderon RDN 1000 [address] [facility] [place] [address] 05/26/2023 4:00 PM EST [facility], [facility] 132 [facility] [place] [address] Love Stevens, RN 132 [facility] [place] [address] 06/19/2023 1:30 PM EST Office Visit Nephrology [address] [place] [address] Luisa Ching PA-C 200 [facility] [place] [address] 07/08/2023 11:00 AM EST Telemedicine Pharmacy, [facility] [place] 200 [facility] [place] [address] Pharmacist1, [facility] [address] [place] [address] 07/14/2023 9:30 AM EST Telemedicine Cardiology [place] [facility] 400 [facility] [place] [address] [facility] 400 [facility] [place] [address] 07/22/2023 10:00 AM EST Nurse Only Ancillary [address] [place] [address] M[place], Nurse [address] [place] [address] 08/06/2023 10:00 AM EST Office Visit Cardiology, [facility] 132 [place] [address] Evita Brennan CRNP [address] [place] [address] 10/06/2023 2:10 PM EDT Office Visit Family Medicine [address] [place] [address] Bárbara R[address] [place] [address] 10/27/2023 8:30 AM EDT Office Visit Sleep Disorders Ctr [facility] 132 [place] [phone] Lindsey Sheikh CRNP [address] [place] [address] Scheduled Procedures Name Priority Associated Diagnoses Date/Ti [...] this encounter Medical Devices Implanted Type Area Ict Trainer Device Identifier Shelf Expiration Date Model / Serial / Lot Lens Intraoc 21.0 - [id number] - [id number] Implanted:Qty: 1 on 01/22/2017 by Cheko Mcnamara MD at OR [facility] Right: Eye BAUSCH & LOMB 08/05/2021 [id number] / [id number] / [id number] Lens Intraoc 21.5 - [id number] - [id number] Implanted:Qty: 1 on 02/03/2017 by Cheko Mcnamara MD at OR [facility] Left: Eye BAUSCH & LOMB 09/02/2021 [id number] / [id number] / [id number] documented as of this encounter Advance Directives [...] and were consensually agreed upon. Care Teams Chief Orthoptist Relationship Specialty Start Date End Date Bárbara Rios DO [address] [place] [address] [place] [address] PCP - General Internal Medicine 08/16/21 documented as of this encounter
--- OUTSIDE RECORDS SUMMARY | 2023-10-20 23:05 | External Medical Summary | Summary of Care ---
Author Name Unknown Organization [facility] Address [address] [facility] [place] [address] Phone [phone] Care Team Providers Care School Based Therapist Name Role Phone Bárbara Rios Primary Care Provider [phone] Reason for Visit * Reason Onset Date Comments Patient Assistance Program 05/01/202305/12 FOLLOW UP Encounter Details Date Type Department Care Team (Late st Contact Info) Description 05/01/2023 Telephone Cardiology, [facility] 132 [facility] [place] [phone] [facility] 21 [facility] [place] [address] Patient Assistance Program (05/12 FOLLOW UP ) [...] 32 UNITS WITH DINNER PLUS CORRECTION PER [facility] OR DIRECTED UP TO [...] a week. 9 mL 3 3 Active Zeylh-3-bspj Ethyl Esters 1 GM Oral Capsule (Lovaza) [...] goal of less than 8.0% ([facility]) Inject 1 mg under the [...] has been better controlled recently. Monitor using [employer] Cindy. Hypertensive heart and kidne y disease [...] yrs 01/04/2018,08/03/2017,07/03 Pneumococcal Conjugate Vacci ne, 20-valent ([id number]) 06/09/2022 Pneumococcal Polysaccharide PPV23 (Pneumovax) 03/06/2020 SEASONAL [...] over the Application he filled out from [employer] he said tomorrow or Wendesday he will fax it [employer] mailed it to him to fill out once I get it will fax it over to [employer] for re-enrollment spoke with John he is approved from 12/23/2022 - 07/05/2023. CHAPINCITO Schumacher MEDICATION VOLTAGE INSPECTOR PHONE : [phone] FAX: [phone] 05/11/2023,2:30 PM * Telephone Encounter - Kaylynn Rapp RPh - 05/01/2023 4:26 PM EDT Received fax from [employer] patient due for 2023 re-enrollment of Elmo. Applications will be accepted starting 04/24/23 Please help patient reapply documented in this encounter Plan of Treatment Upcoming Encounters Date Type Department Care Team (Late st Contact Info) Description 05/25/2023 9:00 AM EST [facility], [facility] 1000 [address] [facility] [place] [address] Mery Calderon RDN 1000 [address] [facility] [place] [address] 05/26/2023 4:00 PM EST [facility], [facility] 132 [facility] [place] [address] Love Stevens, RN 132 [facility] [place] [address] 06/19/2023 1:30 PM EST Office Visit Nephrology [address] [place] [address] Luisa Ching PA-C 200 [facility] [place] [address] 07/08/2023 11:00 AM EST Telemedicine Pharmacy, [facility] [place] 200 [facility] [place] [address] Pharmacist1, [facility] 200 [place] [address] 07/14/2023 9:30 AM EST Telemedicine Cardiology [place] [facility] 400 [facility] [place] [address] [facility] 400 [facility] [place] [address] 07/22/2023 10:00 AM EST Nurse Only Ancillary [address] [place] [address] [place], Nurse [address] [place] [address] 08/06/2023 10:00 AM EST Office Visit Cardiology, [facility] 132 [place] [address] Evita Brennan CRNP [address] [place] [address] 10/06/2023 2:10 PM EDT Office Visit Family Medicine [address] [place] [address] [address] [place] [address] 10/27/2023 8:30 AM EDT Office Visit Sleep Disorders Ctr [facility] 132 [place] [phone] Lindsey Sheikh CRNP [address] [place] [address] Scheduled Procedures Name Priority Associated Diagnoses Date/Ti [...] encounter Medical Devices Implanted Type Area Senior Applications Analyst Device Identifier Shelf Expiration Date Model / Serial / Lot Lens Intraoc 21.0 - [id number] - [id number] Implanted:Qty: 1 on 01/22/2017 by Cheko Mcnamara MD at OR [facility] Right: Eye BAUSCH & LOMB 08/05/2021 [id number] / [id number] / [id number] Lens Intraoc 21.5 - [id number] - [id number] Implanted:Qty: 1 on 02/03/2017 by Cheko Mcnamara MD at OR [facility] Left: Eye BAUSCH & LOMB 09/02/2021 [id number] / [id number] / [id number] documented as of this encounter Advance Directives [...] and were consensually agreed upon. Care Teams School Based Therapist Relationship Specialty Start Date End Date Bárbara Rios DO [address] [place] [address] [place] [address] PCP - General Internal Medicine 08/16/21 documented as of this encounter
--- OUTSIDE RECORDS SUMMARY | 2023-10-20 23:05 | External Medical Summary | Summary of Care ---
Author Name Unknown Organization [facility] Address [address] [place] [address] Phone [phone] Care Team Providers Care Tinware Lithograph Press Operator Name Role Phone Bárbara Rios Primary Care Provider Reason for Visit * Reason Onset Date Comments Home Monitoring Alarm 05/14/2023 Encounter Details Date Type Department Care Team (Late st Contact Info) Description 05/14/2023 Home Monitoring Care Coordination [address] [place] [address] Tanja Fitch LPN Hypertensive heart [...] a week. 9 mL 3 04/09/2023 Active Maspg-3-jblp Ethyl Esters 1 GM Oral Capsule (Lovaza) [...] has been better controlled recently. Monitor using [employer] Cindy. Hypertensive heart and kidne y disease [...] yrs 01/04/2018,08/03/2017,07/03 Pneumococcal Conjugate Vacci ne, 20-valent ([id number]) 06/09/2022 Pneumococcal Polysaccharide PPV23 (Pneumovax) 03/06/2020 SEASONAL [...] Progress Notes * Tanja Fitch LPN - 05/14/2023 2:13 PM EST Tony Delong [phone] Tony Delong is currently participating in the [...] EST Nutrition Services [facility], [facility] 1000 E [facility] [place] [address] Mery Calderon RDN 1000 [address] [facility] [place] [address] 05/26/2023 4:00 PM EST [facility], [facility] 132 [facility] [place] [address] Love Stevens, ANNE MARIE [address] [place] [address] 06/19/2023 1:30 PM EST Office Visit Nephrology [address] [place] [address] Luisa Ching PA-C [address] [place] [address] 07/08/2023 11:00 AM EST Telemedicine Pharmacy, [facility] [address] [facility] [place] [address] Pharmacist1, [facility] [address] [place] [address] 07/14/2023 9:30 AM EST Telemedicine Cardiology [facility] 400 [place] [address] [facility] Cardiology [address] [place] [address], [place] [address] 07/22/2023 10:00 AM EST Nurse Only Ancillary [address] [place] [address] Lilyalley, Nurse [address] [place] [address] 08/06/2023 10:00 AM EST Office Visit Cardiology, [facility] 132 [facility] [place] [address] Evita Brennan CRNP 132 [facility] [place] [address] 10/06/2023 2:10 PM EDT Office Visit Family Medicine [address] [place] [phone] Bárbara Rios[address] [place] [address] 10/27/2023 8:30 AM EDT Office Visit [facility] Disorders Ctr [facility] [address] [place] [phone] Lindsey Sheikh CRNP [address] [place] [address] Scheduled Procedures Name Priority Associated Diagnoses Date/Ti [...] this encounter Medical Devices Implanted Type Area Branch Specialist Device Identifier Shelf Expiration Date Model / Serial / Lot Lens Intraoc 21.0 - [id number] - [id number] Implanted:Qty: 1 on 01/22/2017 by Cheko Mcnamara MD at OR [facility] Right: Eye BAUSCH & LOMB 08/05/2021 [id number] / [id number] / [id number] Lens Intraoc 21.5 - [id number] - [id number] Implanted:Qty: 1 on 02/03/2017 by Cheko Mcnamara MD at OR [facility] Left: Eye BAUSCH & LOMB 09/02/2021 [id number] / [id number] / [id number] documented as of this encounter Visit Diagnoses [...] and were consensually agreed upon. Care Teams Tinware Lithograph Press Operator Relationship Specialty Start Date End Date Bárbara Rios DO [address] [place] [address] [place] [address] PCP - General Internal Medicine 08/16/21 documented as of this encounter
--- OUTSIDE RECORDS SUMMARY | 2023-10-20 23:06 | External Medical Summary | Summary of Care ---
Author Name Unknown Organization [facility] Address [address] [place] [address] Phone [phone] Care Team Providers Care Odd Job Laborer Name Role Phone Bárbara Rios Primary Care Provider [phone] Encounter Details Date Type Department Care Team (Late st Contact Info) Description 2023 Telephone Family Practice [address] [place] [address] 499 [place] [address] Josh Barreto DO [address] [place] [address] Allergies Active Allergy Reactions Criticality Noted Date Comments Other Allergy (See Comments) Rash Low 10/13/2022 1+ cocamidopropyl betaine Sglt2 Inhibitors Other (Please comment) High 09/04/2020 Genital infection Sulfa Antibiotics Rash 10/15/2016 documented as of this encounter (statuses as of 05/10/2023) Medications Medication Sig Dispensed Refills Start Date [...] goal of less than 7.0% ([facility]) INJECT UNDER THE SKIN 26 UNITS AT BREAKFAST, 26 UNITS AT LUNCH, 32 UNITS WITH DINNER PLUS CORRECTION PER [facility] OR DIRECTED UP [...] as of this encounter (statuses as of 05/10/2023) Active Problems Problem Noted Date Diagnosed Date [...] has been better controlled recently. Monitor using [employer] Cindy. Hypertensive heart and kidne y disease [...] as of this encounter (statuses as of 05/10/2023) Resolved Problems Problem Noted Date Diagnosed Date [...] as of this encounter (statuses as of 05/10/2023) Immunizations Name Administration Dates Next Due COVID-19 mRNA, LNP-s, No Pre serve, 2-Dose Series (Moderna) 12/10/2020,11/12/2020 Hepatitis B, 20+ yrs 01/04/2018,08/03/2017,07/03 Pneumococcal Conjugate Vacci ne, 20-valent ([id number]) 06/09/2022 Pneumococcal Polysaccharide PPV23 (Pneumovax) 03/06/2020 SEASONAL [...] Miscellaneous Notes * Telephone Encounter - Josh Barreto DO - 2023 5:00 PM EDT TT from [facility] CM 8lbs gain in 8 days Torsemide 40mg daily baseline Took additional 20mg last 2 days w/o improvement Additional 40mg dose today x 1 F/u weight in am and further plan documented in this encounter Plan of Treatment Upcoming Encounters Date Type Department Care Team (Late st Contact Info) Description 05/11/2023 1:00 PM EST Scheduled Telephone [facility] 132 [place] [address] Coordinator, [facility] [address] [place] [address] 05/12/2023 10:00 AM EST Scheduled Telephone [facility] 132 [place] [address] Coordinator, [facility] 132 [place] [address] 05/13/2023 1:40 PM EST Telemedicine Pharmacy, [facility] [place] 200 Susan Vaughn [place], [place] [address] Pharmacist1, [facility] 200 [place] [address] 05/13/2023 2:10 PM EST Telemedicine Pharmacy, [facility] [place] [address] [place] [address] Pharmacist1, [facility] [address] [facility] [place] [address] 05/19/2023 12:30 PM EST [facility], [facility] 132 [facility] [place] [address] Love Stevens, ANNE MARIE 132 [facility] [place] [address] 05/25/2023 9:00 AM EST Nutrition Services [facility], [facility] 1000 E [facility] [place] [address] Mery Calderon RDN 1000 [facility] [address] 06/19/2023 1:30 PM EST Office Visit Nephrology [address] [place] [address] Luisa Ching PA-C [address] [place] [address] 07/14/2023 9:30 AM EST Telemedicine Cardiology [facility] 400 [facility] [place] [address] [facility] 400 [facility] [place] [address] 07/22/2023 10:00 AM EST Nurse Only Ancillary [address] [place] [address] [place], Nurse [address] [place] [address] 08/06/2023 10:00 AM EST Office Visit Cardiology, [facility] 132 [place] [address] Evita Brennan CRNP 132 [place] [address] 10/06/2023 2:10 PM EDT Office Visit Family Medicine [address] [place] [phone] Bárbara Rios[address] [place] [address] 10/27/2023 8:30 AM EDT Office Visit [facility] Disorders Ctr [facility] [place] 132 [place] [phone] Lindsey Sheikh CRNP 132 [place] [address] Scheduled Procedures Name Priority Associated Diagnoses Date/Ti [...] this encounter Medical Devices Implanted Type Area Automatic Drill Operator Device Identifier Shelf Expiration Date Model / Serial / Lot Lens Intraoc 21.0 - [id number] - [id number] Implanted:Qty: 1 on 01/22/2017 by Cheko Mcnamara MD at OR [facility] Right: Eye BAUSCH & LOMB 08/05/2021 [id number] / [id number] / [id number] Lens Intraoc 21.5 - [id number] - [id number] Implanted:Qty: 1 on 02/03/2017 by Cheko Mcnamara MD at OR [facility] Left: Eye BAUSCH & LOMB 09/02/2021 [id number] / [id number] / [id number] documented as of this encounter Advance Directives [...] and were consensually agreed upon. Care Teams Odd Job Laborer Relationship Specialty Start Date End Date Bárbara Rios DO [address] [place] [address] [place] [phone] PCP - General Internal Medicine 08/16/21 documented as of this encounter
--- OUTSIDE RECORDS SUMMARY | 2023-10-20 23:06 | External Medical Summary | Summary of Care ---
Author Name Unknown Organization [facility] Address [address] [facility] [place] [address] Phone [phone] Care Team Providers Care Floor Trader Name Role Phone Bárbara Rios Primary Care Provider [phone] Encounter Details Date Type Department Care Team (Late st Contact Info) Description 05/01/2023 Telephone Cardiology, [facility] [address] [facility] [place] [address] [facility] 21 [facility] [place] [phone] Allergies Active Allergy Reactions Criticality Noted Date Comments Other Allergy (See Comments) Rash Low 10/13/2022 1+ cocamidopropyl betaine Sglt2 Inhibitors Other (Please comment) High 09/04/2020 Genital infection Sulfa Antibiotics Rash 10/15/2016 documented as of this encounter (statuses as of 05/11/2023) Medications Medication Sig Dispensed Refills Start Date [...] 32 UNITS WITH DINNER PLUS CORRECTION PER [facility] OR DIRECTED UP TO 120 UNITS [...] weight gain. 315 Tablet 3 03/17/2023 Active Lisinopril 10 MG Oral Tablet (Prinivil) Take 2 Tablets by mouth in the morning. 180 Tablet 1 04/02/2023 Active Semaglutide (2 MG/DOSE) 8 MG/3ML Subcutaneous Solution Pen-injector (Ozempic)Indication s:Type 2 diabetes mellitus with hemoglobin A1c goal of less than 8.0% ([facility]) Inject 2 mg under the skin once a week. 9 mL 3 04/09/2023 Active Yeueu-4-wroh Ethyl Esters 1 GM Oral Capsule (Lovaza) [...] as of this encounter (statuses as of 05/11/2023) Active Problems Problem Noted Date Diagnosed Date [...] has been better controlled recently. Monitor using [employer]. Hypertensive heart and kidne y disease with [...] as of this encounter (statuses as of 05/11/2023) Resolved Problems Problem Noted Date Diagnosed Date [...] as of this encounter (statuses as of 05/11/2023) Immunizations Name Administration Dates Next Due COVID-19 mRNA, LNP-s, No Pre serve, 2-Dose Series (Moderna) 12/10/2020,11/12/2020 Hepatitis B, 20+ yrs 01/04/2018,08/03/2017,07/03 Pneumococcal Conjugate Vacci ne, 20-valent ([id number]) 06/09/2022 Pneumococcal Polysaccharide PPV23 (Pneumovax) 03/06/2020 SEASONAL [...] 05/01/2023 4:26 PM EDT Received fax from [employer] patient due for 2023 [facility]rollment [facility] Applications will be accepted starting 04/24/23 Please help patient reapply documented in this encounter Plan of Treatment Upcoming Encounters Date Type Department Care Team (Late st Contact Info) Description 05/11/2023 1:00 PM EST Scheduled Telephone [facility] 132 [place] [address] Coordinator, [place] [address] [place] [address] 05/12/2023 10:00 AM EST Scheduled Telephone [facility] 132 [place] [address] Coordinator, [facility] [place] [address] 05/13/2023 1:40 PM EST Telemedicine Pharmacy, [facility] 200 [place] [address] Pharmacist1, [facility] [address] [place] [address] 05/13/2023 2:10 PM EST [facility], [facility] [address] [place] [address] Pharmacist1, [facility] [address] [place] [address] 05/19/2023 12:30 PM EST [facility], [facility] 132 [facility] [place] [address] Love Stevens, RN 132 [facility] [place] [address] 05/25/2023 9:00 AM EST Nutrition Services [facility], [facility] 1000 E [facility] [place] [address] Mery Calderon, RDN 1000 E [facility] [place] [address] 06/19/2023 1:30 PM EST Office Visit Nephrology [address] [place] [address] Luisa Ching PA-C [address] [place] [address] 07/14/2023 9:30 AM EST Telemedicine Cardiology [facility] 400 [facility] [place] [address] [facility] 400 [facility] [place] [address] 07/22/2023 10:00 AM EST Nurse Only Ancillary [address] [place] [address] Lilyalley, Nurse [address] [place] [address] 08/06/2023 10:00 AM EST Office Visit Cardiology, [facility] [place] [address] Evita Brennan CRNP [address] [place] [address] 10/06/2023 2:10 PM EDT Office Visit Family Medicine [address] [place]iz [phone] Bárbara Rios[address] [place] [address] 10/27/2023 8:30 AM EDT Office Visit [facility] Disorders Ctr [facility] [address] [place] [phone] Lindsey Sheikh CRNP [address] [place] [address] Scheduled Procedures Name Priority Associated Diagnoses Date/Ti [...] this encounter Medical Devices Implanted Type Area Exhibit Cleaner Device Identifier Shelf Expiration Date Model / Serial / Lot Lens Intraoc 21.0 - [id number] - [id number] Implanted:Qty: 1 on 01/22/2017 by Cheko Mcnamara MD at OR [facility] Right: Eye [employer]CH [employer] LOMB 08/05/2021 [id number] / [id number] / [id number] Lens Intraoc 21.5 - [id number] - [id number] Implanted:Qty: 1 on 02/03/2017 by Cheko Mcnamara MD at OR [facility] [address] Left: Eye BAUSCH & LOMB 09/02/2021 [id number] / [id number] / [id number] documented as of this encounter Advance Directives [...] and were consensually agreed upon. Care Teams Floor Trader Relationship Specialty Start Date End Date Bárbara Rios DO [address] [place] [address] [place] Gaffney [phone] PCP - General Internal Medicine 08/16/21 documented as of this encounter
--- OUTSIDE RECORDS SUMMARY | 2023-10-20 23:06 | External Medical Summary | Summary of Care ---
Author Name Unknown Organization [facility] Address [address] [facility] [place] [address] Phone [phone] Care Team Providers Care Rn Transplant Name Role Phone Bárbara Rios Primary Care Provider [phone] Reason for Visit * Reason Onset Date Comments [facility]: Maintenance 05/11/2023 Encounter Details Date Type Department Care Team (Late st Contact Info) Description 05/11/2023 1:00 PM EST Scheduled Telephone [facility], [facility] [address] [place] [address] Coordinator, [facility] [address] [place] [address] Allergies Active Allergy Reactions Criticality Noted Date [...] 32 UNITS WITH DINNER PLUS CORRECTION PER [facility] OR DIRECTED UP TO [...] a week. 9 mL 3 04/09/2023 Active Buykx-3-dqho Ethyl Esters 1 GM Oral Capsule (Lovaza) [...] has been better controlled recently. Monitor using [employer] Cindy. Hypertensive heart and kidne y disease [...] yrs 01/04/2018,08/03/2017,07/03 Pneumococcal Conjugate Vacci ne, 20-valent ([id number]) 06/09/2022 Pneumococcal Polysaccharide PPV23 (Pneumovax) 03/06/2020 SEASONAL [...] Telephone Encounter - Janeth Kelley LPN - 05/11/2023 12:06 PM EST Images from the original note were not included. [facility] Telephonic Nurse Follow-Up Call [facility] Subprogram: Focused Care Management (3-9 months) Follow Up Call Type: 24 hour follow up Acute issue requiring follow-up call: Heart Failure Exacerbation Objective: 04/16/2023 2:03 PM 04/01/2023 2:57 PM 03/23/2023 9:32 AM 03/16/2023 2:23 PM 03/13/2023 2:10 PM VITALS ACROSS ENCOUNTERS BP 158/70 152/84 142/70 150/68 Pulse 64 72 68 68 Weight 138.1 kg 138.8 kg BMI 41 BMI 40.78 kg/m2 41 kg/m2 No results found for: "BLOOD", "PROTEIN", "ESTERASE", "WBC", "NITRITE", "QUANT URINE CULTURE GROWTH", "BLOOD,", "PROTEIN,", "ESTERASE,", "WBC,", "NITRITE, URINE - [facility]" No results found for: "WBC AUTO - [facility]", "HGB - [facility]", "PLATELET AUTO - [facility]" Lab Results Component Value Date SODIUM - [facility] 140 04/27/2023 POTASSIUM - [facility] 4.2 04/27/2023 CO2 - [facility] 26 04/27/2023 CREATININE - [facility] 1.9 (H) 04/27/2023 ESTIMATED GLOMERULAR FILTRATION RATE - [facility] 39 (L) 04/27/2023 No results found for: "PRO BNP", "LEFT VENTRICULAR EJECTION FRACTION" Remote Patient Monitoring: [facility] Scale: as below Oxygen Needs: NO supplemental oxygen needs identified DME Needs: NO DME needs identified Medications: Dose adjustment(s) made: DTP initiated pt to take Torsemide 80 mg AM, 40 mg PM X 3 days on 05/10. LM requesting return call. Future Visits Scheduled: Future Appointments-next 60 days Date/Time Provider Specialty Dept Phone 05/11/2023 1:00 PM Coordinator, [facility] [phone] 05/12/2023 10:00 AM Coordinator, [facility] [phone] 05/13/2023 1:40 PM Pharmacist1, [facility] [phone] 05/13/2023 2:10 PM Pharmacist1, [facility] [phone] 05/19/2023 12:30 PM Love Stevens, RN [facility] [phone] 05/25/2023 9:00 AM Mery Calderon RDN [facility] [phone] 06/19/2023 1:30 PM (Arrive by 1:15 PM) Luisa Ching PA-C Nephrology [phone] 07/14/2023 9:30 AM [facility] [phone] 07/22/2023 10:00 AM [place] Nurse Annual Wellness Ancillary [phone] 08/06/2023 10:00 AM (Arrive by 9:45 AM) Evita Brennan CRNP Cardiology [phone] 10/06/2023 2:10 PM (Arrive by 1:55 PM) Bárbara Rios, Family Medicine [phone] 10/27/2023 8:30 AM (Arrive by 8:15 AM) Lindsey Sheikh CRNP Sleep Disorders [phone] Janeth Kelley LPN documented in this encounter Plan of Treatment Upcoming Encounters Date Type Department Care Team (Late st Contact Info) Description 05/12/2023 10:00 AM EST Scheduled Telephone [facility], [facility] [address] [place] [address] Coordinator, [facility] [address] [place] [address] 05/13/2023 1:40 PM EST Telemedicine Pharmacy, [facility] [address] Pharmacist1, [facility] [address] 05/13/2023 2:10 PM EST Telemedicine Pharmacy, [facility] [address] [facility] [address] Pharmacist1, [facility] 200 [facility] [address] 05/19/2023 12:30 PM EST Home Visit [facility], [facility] [address] [place] [address] Love Stevens, ANNE MARIE [address] [place] [address] 05/25/2023 9:00 AM EST Nutrition Services [facility], [facility] [address] [facility] [place] [address] Mery Calderon RDN [address] [facility] [place] [address] 06/19/2023 1:30 PM EST Office Visit Nephrology [address] [place] [address] Luisa Ching PA-C [address] [place] [address] 07/14/2023 9:30 AM EST Telemedicine Cardiology [place] 400 [facility] [place] [address] [facility] 400 [facility] [place] [address] 07/22/2023 10:00 AM EST Nurse Only Ancillary [address] [place] [address] [place], Nurse [address] [place] [address] 08/06/2023 10:00 AM EST Office Visit Cardiology, [facility] [address] [place] [address] Evita Brennan CRNP [address] [place] [address] 10/06/2023 2:10 PM EDT Office Visit Family Medicine [address] [place] [address] Bárbara Rios, [address] [place] [address] 10/27/2023 8:30 AM EDT Office Visit Sleep Disorders [facility] [address] [place] [phone] Lindsey Sheikh CRNP [address] [place] [address] Scheduled Procedures Name Priority Associated Diagnoses Date/Ti [...] this encounter Medical Devices Implanted Type Area Communications Maintainer Device Identifier Shelf Expiration Date Model / Serial / Lot Lens Intraoc 21.0 - [id number] - [id number] Implanted:Qty: 1 on 01/22/2017 by Cheko Mcnamara MD at OR [facility] Right: Eye BAUSCH & LOMB 08/05/2021 [id number] / [id number] / [id number] Lens Intraoc 21.5 - [id number] - [id number] Implanted:Qty: 1 on 02/03/2017 by Cheko Mcnamara MD at OR [facility] Left: Eye BAUSCH & LOMB 09/02/2021 [id number] / [id number] / [id number] documented as of this encounter Advance Directives [...] were consensually agreed upon. Care Teams Rn Transplant Relationship Specialty Start Date End Date Bárbara Rios DO [address] [place] [address] [place] [address] PCP - General Internal Medicine 08/16/21 documented as of this encounter
--- OUTSIDE RECORDS SUMMARY | 2023-10-20 23:06 | External Medical Summary | Summary of Care ---
Author Name Unknown Organization [facility] Address [address] [facility] [place] [address] Phone [phone] Care Team Providers Care Reception Clerk Name Role Phone Bárbara Rios Primary Care Provider [phone] Encounter Details Date Type Department Care Team (Late st Contact Info) Description 05/01/2023 Telephone Cardiology, [facility] [address] [facility] [place] [address] [facility] 21 [facility] [place] [phone] Allergies Active Allergy Reactions Criticality Noted Date Comments Other Allergy (See Comments) Rash Low 10/13/2022 1+ cocamidopropyl betaine Sglt2 Inhibitors Other (Please comment) High 09/04/2020 Genital infection Sulfa Antibiotics Rash 10/15/2016 documented as of this encounter (statuses as of 05/08/2023) Medications Medication Sig Dispensed Refills Start Date [...] UNITS WITH DINNER PLUS CORRECTION PER [facility] OR DIRECTED UP TO [...] a week. 9 mL 3 04/09/2023 Active Dprlb-8-qxwg Ethyl Esters 1 GM Oral Capsule (Lovaza) [...] as of this encounter (statuses as of 05/08/2023) Active Problems Problem Noted Date Diagnosed Date [...] has been better controlled recently. Monitor using [employer]. Hypertensive heart and kidne y disease with [...] as of this encounter (statuses as of 05/08/2023) Resolved Problems Problem Noted Date Diagnosed Date [...] as of this encounter (statuses as of 05/08/2023) Immunizations Name Administration Dates Next Due COVID-19 mRNA, LNP-s, No Pre serve, 2-Dose Series (Moderna) 12/10/2020,11/12/2020 Hepatitis B, 20+ yrs 01/04/2018,08/03/2017,07/03 Pneumococcal Conjugate Vacci ne, 20-valent ([id number]) 06/09/2022 Pneumococcal Polysaccharide PPV23 (Pneumovax) 03/06/2020 SEASONAL [...] 05/01/2023 4:26 PM EDT Received fax from [employer] patient due for 2023 re-enrollment of [employer] systems[employer]. Applications will be accepted starting 04/24/23 Please help patient reapply documented in this encounter Plan of Treatment Upcoming Encounters Date Type Department Care Team (Late st Contact Info) Description 05/13/2023 1:40 PM EST Telemedicine Pharmacy, [facility] [address] [place] [address] [address] Pharmacist1, [facility] [address] [place] [address] 05/13/2023 2:10 PM EST Telemedicine Pharmacy, [facility] [address] [place] [address] [address] Pharmacist1, [facility] [address] [place] [place] [address] 05/19/2023 12:30 PM EST [facility] Visit [facility], [facility] [address] [place] [address] Love Stevens, RN [address] [place] [address] 05/25/2023 9:00 AM EST Nutrition Services [facility], [facility] [address] [facility] [place] [address] RorominghassanMery, RDN [address] [facility] [place] [address] 06/19/2023 1:30 PM EST Office Visit Nephrology [address] [place] [address] Luisa Ching PA-C 200 [facility] [place] [address] 07/14/2023 9:30 AM EST [facility] 400 [facility] [place] [address] [facility] 400 [facility] [place] [address] 07/22/2023 10:00 AM EST Nurse Only Ancillary [address] [place] [address] [place], Nurse [address] [place] [address] 08/06/2023 10:00 AM EST Office Visit Cardiology, [facility] 132 [place] [address] Evita Brennan CRNP [address] [place] [address] 10/06/2023 2:10 PM EDT Office Visit Family Medicine [address] [place] [phone] Bárbara Rios, [address] [place] [address] 10/27/2023 8:30 AM EDT Office Visit Sleep Disorders Ctr [facility] [address] [place] [address] Lindsey Sheikh CRNP [address] [place] [address] Scheduled Procedures Name Priority Associated Diagnoses Date/Ti [...] 08/16/2021, 05/29/2020, Additional history exists Albumin/Creatinine Ratio 09/23/202309/22/2 023, 09/02/2022, 05/22/2022, Additional history exists HbA1c [...] this encounter Medical Devices Implanted Type Area Truck Mechanic Device Identifier Shelf Expiration Date Model / Serial / Lot Lens Intraoc 21.0 - [id number] - [id number] Implanted:Qty: 1 on 01/22/2017 by Cheko Mcnamara MD at OR [facility] Right: Eye BAUSCH & LOMB 08/05/2021 [id number] / [id number] / [id number] Lens Intraoc 21.5 - [id number] - [id number] Implanted:Qty: 1 on 02/03/2017 by Cheko Mcnamara MD at OR [facility] Left: Eye BAUSCH & LOMB 09/02/2021 [id number] / [id number] / [id number] documented as of this encounter Advance Directives [...] and were consensually agreed upon. Care Teams Reception Clerk Relationship Specialty Start Date End Date Bárbara Rios DO [address] [place] [address] [place] [address] PCP - General Internal Medicine 08/16/21 documented as of this encounter
--- OUTSIDE RECORDS SUMMARY | 2023-10-20 23:06 | External Medical Summary | Summary of Care ---
Author Name Unknown Organization [facility] Address [address] [facility] [place] [address] Phone [phone] Care Team Providers Care Soil Specialist Name Role Phone Bárbara Rios Primary Care Provider [phone] Reason for Visit * Reason Onset Date Comments Patient Assistance Program 05/01/202305/12 FOLLOW UP Encounter Details Date Type Department Care Team (Late st Contact Info) Description 05/01/2023 Telephone Cardiology, [facility] 132 [facility] [place] [phone] [facility] 21 [facility] [place] [address] Patient Assistance Program (05/12 FOLLOW UP ) [...] a week. 9 mL 3 04/09/2023 Active Biaac-3-odjp Ethyl Esters 1 GM Oral Capsule (Lovaza) [...] has been better controlled recently. Monitor using [employer] Cindy. Hypertensive heart and kidne y [...] yrs 01/04/2018,08/03/2017,07/03 Pneumococcal Conjugate Vacci ne, 20-valent ([id number]) 06/09/2022 Pneumococcal Polysaccharide PPV23 (Pneumovax) 03/06/2020 SEASONAL [...] encounter Miscellaneous Notes * Telephone Encounter - Ya Bertrand [place] - 05/11/2023 2:27 PM EST Spoke with Tony he is faxing over the Application he filled out from [employer] he said tomorrow or Wendesday he will fax it [employer] mailed it to him to fill out once I get it will fax it over to [employer] for re-enrollment spoke with John he is approved from 12/23/2022 - 07/05/2023. CHAPINCITO Schumacher MEDICATION METER SHOP SUPERINTENDENT PHONE : [phone] FAX: [phone] 05/11/2023,2:30 PM * Telephone Encounter - Kaylynn Rapp [facility] - 05/01/2023 4:26 PM EDT Received fax from [employer] patient due for 2023 re-enrollment of Repatha. Applications will be accepted starting 04/24/23 Please help patient reapply documented in this encounter Plan of Treatment Upcoming Encounters Date Type Department Care Team (Late st Contact Info) Description 05/12/2023 10:00 AM EST Scheduled Telephone [facility], [facility] [address] [facility] [place] [address] Coordinator, [facility] 132 [facility] [place] [address] 05/13/2023 1:40 PM EST Telemedicine Pharmacy, [facility] [address] [place] [address] Pharmacist1, [facility] 200 [facility] [address] 05/13/2023 2:10 PM EST Telemedicine Pharmacy, [facility] [address] [place] [address] Pharmacist1, [facility] 200 [facility] [place] [address] 05/19/2023 12:30 PM EST Home Visit [facility], [facility] [address] [facility] [place] [address] Love Stevens RN 132 [facility] [place] [address] 05/25/2023 9:00 AM EST Nutrition Services [facility], [facility] 1000 [address] [facility] [place] [address] Mery Calderon RDN [address] [facility] [place] [address] 06/19/2023 1:30 PM EST Office Visit Nephrology [address] [place] [address] Luisa Ching PA-C 200 [facility] [place] [address] 07/14/2023 9:30 AM EST Telemedicine Cardiology [place] [address] [place] [address] [facility] [address] [place] [address] 07/22/2023 10:00 AM EST Nurse Only Ancillary [address] [place] [address] [place], Nurse [address] [place] [address] 08/06/2023 10:00 AM EST Office Visit Cardiology, [facility] 132 [place] [address] Evita Brennan CRNP [address] [place] [address] 10/06/2023 2:10 PM EDT Office Visit Family Medicine [address] [place] [address] Bárbara R[address] [place] [address] 10/27/2023 8:30 AM EDT Office Visit Sleep Disorders Ctr [facility] 132 [place] [phone] Lindsey Sheikh CRNP [address] [place] [address] Scheduled Procedures Name Priority Associated Diagnoses Date/Ti [...] this encounter Medical Devices Implanted Type Area Converting Technician Device Identifier Shelf Expiration Date Model / Serial / Lot Lens Intraoc 21.0 - [id number] - [id number] Implanted:Qty: 1 on 01/22/2017 by Cheko Mcnamara MD at OR [facility] Right: Eye BAUSCH & LOMB 08/05/2021 [id number] / [id number] / [id number] Lens Intraoc 21.5 - [id number] - [id number] Implanted:Qty: 1 on 02/03/2017 by Cheko Mcnamara MD at OR [facility] Left: Eye BAUSCH & LOMB 09/02/2021 [id number] / [id number] / [id number] documented as of this encounter Advance Directives [...] and were consensually agreed upon. Care Teams Soil Specialist Relationship Specialty Start Date End Date Bárbara Rios DO [address] [place] [address] [place] [address] PCP - General Internal Medicine 08/16/21 documented as of this encounter
--- OUTSIDE RECORDS SUMMARY | 2023-10-20 23:06 | External Medical Summary | Summary of Care ---
Author Name Unknown Organization [facility] Address [address] [facility] [place] [address] Phone [phone] Care Team Providers Care Liquified Natural Gas Specialist Name Role Phone Bárbara Rios Primary Care Provider [phone] Reason for Visit * Reason Onset Date Comments Patient Assistance Program 05/01/202305/12 FOLLOW UP Encounter Details Date Type Department Care Team (Late st Contact Info) Description 05/01/2023 Telephone Cardiology, [facility] 132 [facility] [place] [phone] [facility] 21 [facility] [place] [address] Patient Assistance Program (05/12 FOLLOW UP ) [...] a week. 9 mL 3 04/09/2023 Active Fjrpu-8-vayc Ethyl Esters 1 GM Oral Capsule (Lovaza) [...] has been better controlled recently. Monitor using [employer] Cindy. Hypertensive heart and kidne y disease [...] yrs 01/04/2018,08/03/2017,07/03 Pneumococcal Conjugate Vacci ne, 20-valent ([id number]) 06/09/2022 Pneumococcal Polysaccharide PPV23 (Pneumovax) 03/06/2020 SEASONAL [...] over the Application he filled out from [employer] he said tomorrow or Wendesday he will fax it [employer] mailed it to him to fill out once I get it will fax it over to [employer] for re-enrollment spoke with John he is approved from 12/23/2022 - 07/05/2023. CHAPINCITO Schumacher MEDICATION ATTENDING PHYSICIAN PHONE : [phone] FAX: [phone] 05/11/2023,2:30 PM * Telephone Encounter - Kaylynn Rapp [facility] - 05/01/2023 4:26 PM EDT Received fax from [employer] patient due for 2023 re-enrollment of Repatha. Applications will be accepted starting 04/24/23 Please help patient reapply Electronically signed by Kaylynn Rapp [facility] at 05/01/2023 4:26 PM EDT documented in this encounter Plan of Treatment Upcoming Encounters Date Type Department Care Team (Late st Contact Info) Description 05/12/2023 10:00 AM EST Scheduled Telephone [facility], [facility] 132 [facility] [place] [address] Coordinator, [facility] 132 [facility] [place] [address] 05/13/2023 1:40 PM EST Telemedicine Pharmacy, [facility] [address] [place] [address] Pharmacist1, [facility] 200 [facility] [place] [address] 05/13/2023 2:10 PM EST Telemedicine Pharmacy, [facility] [address] [place] [address] Pharmacist1, [facility] 200 [facility] [place] [address] 05/19/2023 12:30 PM EST Home Visit [facility], [facility] 132 [facility] [place] [address] Love Stevens RN 132 [facility] [place] [address] 05/25/2023 9:00 AM EST Nutrition Services [facility], [facility] 1000 [address] [facility] [place] [address] Mery Calderon RDN 1000 [address] [facility] [place] [address] 06/19/2023 1:30 PM EST Office Visit Nephrology [address] [place] [address] Luisa Ching PA-C [address] [facility] [place] [address] 07/14/2023 9:30 AM EST Telemedicine Cardiology [place] Meg[place] [address] [place] [address] [facility] [address] [place] [address] 07/22/2023 10:00 AM EST Nurse Only Ancillary [address] [place] [address] [place], Nurse [address] [place] [address] 08/06/2023 10:00 AM EST Office Visit Cardiology, [facility] 132 [place] [address] Evita Brennan CRNP [address] [place] [address] 10/06/2023 2:10 PM EDT Office Visit Family Medicine [address] [place] [phone] Bárbara Rios[address] [place] [address] 10/27/2023 8:30 AM EDT Office Visit Sleep Disorders Ctr [facility] 132 [place] [phone] Lindsey Sheikh CRNP [address] [place] [address] Scheduled Procedures Name Priority Associated Diagnoses Date/Ti [...] this encounter Medical Devices Implanted Type Area X Ray Equipment Mechanic Device Identifier Shelf Expiration Date Model / Serial / Lot Lens Intraoc 21.0 - [id number] - [id number] Implanted:Qty: 1 on 01/22/2017 by Cheko Mcnamara MD at OR [facility] Right: Eye BAUSCH & LOMB 08/05/2021 [id number] / [id number] / [id number] Lens Intraoc 21.5 - [id number] - [id number] Implanted:Qty: 1 on 02/03/2017 by Cheko Mcnamara MD at OR [facility] Left: Eye BAUSCH & LOMB 09/02/2021 [id number] / [id number] / [id number] documented as of this encounter Advance Directives [...] and were consensually agreed upon. Care Teams Liquified Natural Gas Specialist Relationship Specialty Start Date End Date Bárbara Rios DO [address] [place] [address] [place] [address] PCP - General Internal Medicine 08/16/21 documented as of this encounter
--- OUTSIDE RECORDS SUMMARY | 2023-10-20 23:06 | External Medical Summary | Summary of Care ---
Author Name Unknown Organization [facility] Address [address] [facility] [place] [address] Phone [phone] Care Team Providers Care Singing Waiter Or Waitress Name Role Phone Bárbara Rios Primary Care Provider [phone] Reason for Visit * Reason Onset Date Comments [facility]: Maintenance 05/11/2023 Encounter Details Date Type Department Care Team (Late st Contact Info) Description 05/11/2023 1:00 PM EST Scheduled Telephone [facility], [facility] [address] [place] [address] Coordinator, [facility] [address] [place] [address] Allergies Active Allergy Reactions Criticality Noted Date [...] 32 UNITS WITH DINNER PLUS CORRECTION PER [facility] OR DIRECTED UP TO 120 [...] a week. 9 mL 3 04/09/2023 Active Mzrbz-7-jtjs Ethyl Esters 1 GM Oral Capsule (Lovaza) [...] has been better controlled recently. Monitor using [employer] Cindy. Hypertensive heart and kidne y disease [...] yrs 01/04/2018,08/03/2017,07/03 Pneumococcal Conjugate Vacci ne, 20-valent ([id number]) 06/09/2022 Pneumococcal Polysaccharide PPV23 (Pneumovax) 03/06/2020 SEASONAL [...] Telephone Encounter - Leanne Le LPN - 05/11/2023 1:10 PM EST Received return call from patient States he is feeling "ok" States he is getting SOB with exertion and does have some BLE edema. States symptoms are minimal right now but "knows what's coming". Continuing DTP today for next 2 days States he does have 2.5 mg of metolazone at home as well and takes "when we tell him to" Will forward to care team and [facility] for recommendations. * Telephone Encounter - Janeth Kelley LPN - 05/11/2023 12:06 PM EST Images from the original note were not included. [facility] Telephonic Nurse Follow-Up Call [facility] Subprogram: Focused Care Management (3-9 months) [...] EJECTION FRACTION" Remote Patient Monitoring: AMC Scale: as below Oxygen Needs: NO supplemental oxygen needs identified DME Needs: NO DME needs identified Medications: Dose adjustment(s) made: DTP initiated pt to take Torsemide 80 mg AM, 40 mg PM X 3 days on 05/10. LM requesting return call. Future Visits Scheduled: Future Appointments-next 60 days Date/Time Provider Specialty Dept Phone 05/11/2023 1:00 PM Coordinator, Beni Prakash Aldana [facility] [phone] 05/12/2023 10:00 AM Coordinator, [facility] [phone] 05/13/2023 1:40 PM Pharmacist1, [facility] [phone] 05/13/2023 2:10 PM Pharmacist1, [facility] [phone] 05/19/2023 12:30 PM Love Stevens RN [facility] [phone] 05/25/2023 9:00 AM Mery Calderon RDN [facility] [phone] 06/19/2023 1:30 PM (Arrive by 1:15 PM) Luisa Ching PA-C Nephrology [phone] 07/14/2023 9:30 AM Heather [facility] Cardiology Cardiology [phone] 07/22/2023 10:00 AM Nurse [facility] [phone] 08/06/2023 10:00 AM (Arrive by 9:45 AM) Evita Brennan CRNP Cardiology [phone] 10/06/2023 2:10 PM (Arrive by 1:55 PM) Bárbara Rios, DO Family Medicine [phone] 10/27/2023 8:30 AM (Arrive by 8:15 AM) Lindsey Sheikh CRNP Sleep Disorders [phone] Janeth Kelley LPN documented in this encounter Plan of Treatment Upcoming Encounters Date Type Department Care Team (Late st Contact Info) Description 05/12/2023 10:00 AM EST Scheduled Telephone [facility], [facility] 132 [facility] [place] [address] Coordinator, [facility] 132 [facility] [place] [address] 05/13/2023 1:40 PM EST Telemedicine Pharmacy, [facility] [address] [place] [address] Pharmacist1, [facility] [address] [place] [address] 05/13/2023 2:10 PM EST Telemedicine Pharmacy, [facility] [address] [place] [address] Pharmacist1, [facility] [address] [place] [address] 05/19/2023 12:30 PM EST Home Visit [facility], [facility] [address] [place] [address] Love Stevens, ANNE MARIE [address] [place] [address] 05/25/2023 9:00 AM EST Nutrition Services [facility], [facility] [address] [facility] [place] [address] Mery Calderon RDN [address] [facility] [place] [address] 06/19/2023 1:30 PM EST Office Visit Nephrology [address] [place] [address] Luisa Ching PA-C [address] [facility] [address] 07/14/2023 9:30 AM EST Telemedicine Cardiology [facility] [address] [facility] [place] [address] [facility] [place] [address] 07/22/2023 10:00 AM EST Nurse Only Ancillary [address] [place] [address] [place], Nurse Annual [address] [place] [address] 08/06/2023 10:00 AM EST Office Visit Cardiology, [facility] [address] [place] [address] Evita Brennan CRNP [address] [place] [address] 10/06/2023 2:10 PM EDT Office Visit Family Medicine [address] [place] [phone] Bárbara Rios[address] [place] [address] 10/27/2023 8:30 AM EDT Office Visit Sleep Disorders Ctr [facility] [address] [place] [phone] Lindsey Sheikh CRNP [address] [place] [address] Scheduled Procedures Name Priority Associated Diagnoses Date/Ti [...] this encounter Medical Devices Implanted Type Area Crown Ceramist Device Identifier Shelf Expiration Date Model / Serial / Lot Lens Intraoc 21.0 - [id number] - [id number] Implanted:Qty: 1 on 01/22/2017 by Cheko Mcnamara MD at OR [facility] Right: Eye [employer]OM[employer] 08/05/2021 [id number] / [id number] / [id number] Lens Intraoc 21.5 - [id number] - [id number] Implanted:Qty: 1 on 02/03/2017 by Cheko Mcnamara MD at OR [facility] Left: Eye BAUSCH & LOMB 09/02/2021 [id number] / [id number] / [id number] documented as of this encounter Advance Directives [...] and were consensually agreed upon. Care Teams Singing Waiter Or Waitress Relationship Specialty Start Date End Date Bárbara Rios DO [address] [place] [address] [place] [phone] PCP - General Internal Medicine 08/16/21 documented as of this encounter
--- OUTSIDE RECORDS SUMMARY | 2023-10-20 23:06 | External Medical Summary | Summary of Care ---
Author Name Unknown Organization [facility] Address [address] [facility] [place] [address] Phone [phone] Care Team Providers Care Branch Coordinator Name Role Phone Bárbara Rios Primary Care Provider [phone] Reason for Visit * Reason Onset Date Comments [facility]: Maintenance 05/11/2023 Encounter Details Date Type Department Care Team (Late st Contact Info) Description 05/11/2023 1:00 PM EST Scheduled Telephone [facility], [facility] [address] [place] [address] Coordinator, [facility] [address] [place] [address] Allergies Active Allergy Reactions Criticality Noted Date [...] WITH DINNER PLUS CORRECTION PER [facility] OR DIRECTED UP TO [...] a week. 9 mL 3 04/09/2023 Active Jpwpc-6-ians Ethyl Esters 1 GM Oral Capsule (Lovaza) [...] has been better controlled recently. Monitor using [employer] Cindy. Hypertensive heart and kidne y disease [...] yrs 01/04/2018,08/03/2017,07/03 Pneumococcal Conjugate Vacci ne, 20-valent ([id number]) 06/09/2022 Pneumococcal Polysaccharide PPV23 (Pneumovax) 03/06/2020 SEASONAL [...] Miscellaneous Notes * Telephone Encounter - Wilfredo Mullgian DO - 05/11/2023 1:20 PM EST [facility] Remote Medical Command [facility] Subprogram: Focused Care Management (3-9 months) [facility] Episode Start Date: Noted: 05/05/2022 Brief Recommendations: I think it would be reasonable to take a dose of Metolazone to accelerate diureses To Do: Please see below for follow up items to be completed and correspondence: Telephonic [facility] please work on the following: relay advice as above surrounding Tony's remote patient monitoring Wilfredo Mulligan DO Remote Medical Command - [facility] 05/11/2023 Scheduled appointments in the next 60 days: Future Appointments-next 60 days Date/Time Provider Specialty Dept Phone 05/12/2023 10:00 AM CoordinatorMorales [facility] [phone] 05/13/2023 1:40 PM Pharmacist1, [facility] [phone] 05/13/2023 2:10 PM Pharmacist1, [facility] [phone] 05/19/2023 12:30 PM Love Stevens, RN [facility] [phone] 05/25/2023 9:00 AM Mery Calderon RDN [facility] [phone] 06/19/2023 1:30 PM (Arrive by 1:15 PM) Luisa Ching PA-C Nephrology [phone] 07/14/2023 9:30 AM [facility] [phone] 07/22/2023 10:00 AM Nurse [facility] [phone] 08/06/2023 10:00 AM (Arrive by 9:45 AM) Evita Brennan CRNP Cardiology [phone] 10/06/2023 2:10 PM (Arrive by 1:55 PM) Bárbara Rios DO Family Medicine [phone] 10/27/2023 8:30 AM (Arrive by 8:15 AM) Lindsey Sheikh CRNP Sleep Disorders [phone] * Telephone Encounter - Leanne Le LPN [...] to" Will forward to care team and [facility] for recommendations. * Telephone Encounter - Janeth Kelley LPN - 05/11/2023 12:06 PM EST Images from the original note were not included. [facility] Telephonic Nurse Follow-Up Call [facility] Subprogram: Focused Care Management (3-9 [...] Specialty Dept Phone 05/11/2023 1:00 PM Coordinator, [facility] [phone] 05/12/2023 10:00 AM Coordinator, [facility] [phone] 05/13/2023 1:40 PM Pharmacist1, [facility] [phone] 05/13/2023 2:10 PM Pharmacist1, [facility] [phone] 05/19/2023 12:30 PM Love Stevens, RN [facility] [phone] 05/25/2023 9:00 AM Mery Calderon RDN [facility] [phone] 06/19/2023 1:30 PM (Arrive by 1:15 PM) Luisa Ching PA-C Nephrology [phone] 07/14/2023 9:30 AM Heather [facility] Cardiology Cardiology [phone] 07/22/2023 10:00 AM Osito Nurse Annual Wellness Ancillary [phone] 08/06/2023 10:00 AM (Arrive by 9:45 AM) Evita Brennan CRNP Cardiology [phone] 10/06/2023 2:10 PM (Arrive by 1:55 PM) Bárbara Rios, Family Medicine [phone] 10/27/2023 8:30 AM (Arrive by 8:15 AM) Lindsey Sheikh CRNP Sleep Disorders [phone] Janeth Kelley LPN documented in this encounter Plan of Treatment Upcoming Encounters Date Type Department Care Team (Late st Contact Info) Description 05/12/2023 10:00 AM EST Scheduled Telephone [facility], [facility] 132 [facility] [place] [address] Coordinator, [facility] [address] [place] [address] 05/13/2023 1:40 PM EST Telemedicine Pharmacy, [facility] [address] [place] [address] Pharmacist1, [facility] [address] [facility] [place] [address] 05/13/2023 2:10 PM EST Telemedicine Pharmacy, [facility] [address] [place] [address] Pharmacist1, [facility] [address] [facility] [place] [address] 05/19/2023 12:30 PM EST Home Visit [facility], [facility] 132 [facility] [place] [address] Love Stevens, RN 132 [facility] [place] [address] 05/25/2023 9:00 AM EST Nutrition Services [facility], [facility] [address] [facility] [place] [address] Mery Calderon, RDN [address] [facility] [place] [address] 06/19/2023 1:30 PM EST Office Visit Nephrology [address] [place] [address] Luisa Ching PA-C [address] [place] [address] 07/14/2023 9:30 AM EST Telemedicine Cardiology [facility] [address] [facility] [place] [address] [facility] [address] [facility] [place] [address] 07/22/2023 10:00 AM EST Nurse Only Ancillary [address] [place] [address] [place], Nurse [address] [place] [address] 08/06/2023 10:00 AM EST Office Visit Cardiology, [facility] 132 [facility] [place] [address] Evita Brennan CRNP [address] [place] [address] 10/06/2023 2:10 PM EDT Office Visit Family Medicine [address] [place] [phone] [address] [place] [address] 10/27/2023 8:30 AM EDT Office Visit Sleep Disorders Ctr [facility] [place] [phone] Lindsey Sheikh CRNP [address] [place] [address] Scheduled Procedures Name Priority Associated Diagnoses Date/Ti [...] this encounter Medical Devices Implanted Type Area Carbon Sequestration Plant Engineer Device Identifier Shelf Expiration Date Model / Serial / Lot Lens Intraoc 21.0 - [id number] - [id number] Implanted:Qty: 1 on 01/22/2017 by Cheko Mcnamara MD at OR [facility] Right: Eye [employer]OM[employer] 08/05/2021 [id number] / [id number] / [id number] Lens Intraoc 21.5 - [id number] - [id number] Implanted:Qty: 1 on 02/03/2017 by Cheko Mcnamara MD at OR [facility] Left: Eye BAUSCH & LOMB 09/02/2021 [id number] / [id number] / [id number] documented as of this encounter Advance Directives [...] and were consensually agreed upon. Care Teams Branch Coordinator Relationship Specialty Start Date End Date Bárbara Rios DO [address] [place] [address] [place] [address] PCP - General Internal Medicine 08/16/21 documented as of this encounter
--- OUTSIDE RECORDS SUMMARY | 2023-10-20 23:06 | External Medical Summary | Summary of Care ---
Author Name Unknown Organization [facility] Address [address] [facility] [place] [address] Phone [phone] Care Team Providers Care Manager Hospital Name Role Phone Bárbara Rios Primary Care Provider [phone] Reason for Visit * Reason Onset Date Comments [facility]: Maintenance 05/10/2023 Encounter Details Date Type Department Care Team (Late st Contact Info) Description 05/10/2023 3:30 PM EST Scheduled Telephone [facility], [facility] 132 [facility] [place] [address] [facility], Nurse [facility] 132 [facility] [place] [address] Allergies Active Allergy Reactions Criticality Noted Date [...] 32 UNITS WITH DINNER PLUS CORRECTION PER [facility] OR DIRECTED UP TO [...] a week. 9 mL 3 04/09/2023 Active Bdfvw-6-tjzt Ethyl Esters 1 GM Oral Capsule (Lovaza) [...] has been better controlled recently. Monitor using [employer] Cindy. Hypertensive heart and kidne y disease [...] yrs 01/04/2018,08/03/2017,07/03 Pneumococcal Conjugate Vacci ne, 20-valent (Yheblyw50) 06/09/2022 Pneumococcal Polysaccharide PPV23 (Pneumovax) 03/06/2020 SEASONAL [...] Telephone Encounter - Harmony Singh RN - 05/10/2023 4:13 PM EST Images from the original note were not included. Pt called for f/u of [facility] trigger - had 2 lbs wt gain overnight and over 5 lbs in past week Spoke with pt and he reports that he did already double his torsemide this am He states his weight and blood sugar were both elevated this am and states "I havent' been eating very well" Denies increased edema but does feel he is a little more SOB today. Pt is going to do DTP on file of double torsemide to equal 80mg in am and 40mg in pm today, tomorrow and Thursday Will add for f/u calls the next two days to monitor. Pt agrees and verbalizes understanding Advised to call with any worsening s/s. documented in this encounter Plan of Treatment Upcoming Encounters Date Type Department Care Team (Late st Contact Info) Description 05/11/2023 1:00 PM EST Scheduled Telephone [facility], [facility] 132 [facility] [place] [address] Coordinator, [facility] [place] [address] 05/12/2023 10:00 AM EST Scheduled Telephone [facility], [facility] [place] [address] Coordinator, [facility] [place] [address] 05/13/2023 1:40 PM EST Telemedicine Pharmacy, [facility] 200 [facility] [place] [address] Pharmacist1, [facility] 200 [facility] [place] [address] 05/13/2023 2:10 PM EST Telemedicine Pharmacy, [facility] 200 [facility] [place] [address] Pharmacist1, [facility] 200 [facility] [place] [address] 05/19/2023 12:30 PM EST Home Visit [facility], [facility] 132 [facility] [place]UDI [place] [address] Love Stevens, ANNE MARIE 132 [facility] [place] [address] 05/25/2023 9:00 AM EST Nutrition Services [facility], [facility] [address] [facility] [place] [address] Mery Calderon RDN [address] [facility] [place] [address] 06/19/2023 1:30 PM EST Office Visit Nephrology [address] [place] [address] Luisa Ching PASuzette 200 [facility] [place] [address] 07/14/2023 9:30 AM EST Telemedicine Cardiology [place] [facility] [address] [place] [address] [place] [address] [facility] [address] [place] [address] [address] 07/22/2023 10:00 AM EST Nurse Only Ancillary [address] [place] [address] [place], Nurse [address] [place] [address] 08/06/2023 10:00 AM EST Office Visit Cardiology, [facility] [address] [place] [address] Evita Brennan CRNP [address] [place] [address] 10/06/2023 2:10 PM EDT Office Visit Family Medicine [address] [place] [phone] Bárbara Rios[address] [place] [address] 10/27/2023 8:30 AM EDT Office Visit Sleep Disorders Ctr [facility] [address] [place] [phone] Lindsey Sheikh CRNP [address] [place] [address] Scheduled Procedures Name Priority Associated Diagnoses Date/Ti me ESOPHAGOGASTRODUODENOSCOPY ( EGD), FLEXIBLE, TRANSORAL, DIAGNOSTIC Recall Arreola's esophagus with dysplasia COLONOSCOPY FLEXIBLE PROXIMAL DIAGNOSTIC Recall History of colon polyps Health Maintenance Due Date Last Done Comments HIV Screening 1974 Alpha-1 Antitrypsin 1977 COLONOSCOPY-EVERY 5 YRS AGES 18-100 01/01/2023 01/01/2018, 01/01/2018 COVID-19 Vaccine ( - season) 2023 12/10/2020, 11/12/2020 O2 ASSESSMENT COMPLETED [...] this encounter Medical Devices Implanted Type Area Shift Supervisor Device Identifier Shelf Expiration Date Model / Serial / Lot Lens Intraoc 21.0 - [id number] - [id number] Implanted:Qty: 1 on 01/22/2017 by Cheko Mcnamara MD at OR [facility] Right: Eye BAUSCH [employer] LOMB 08/05/2021 [id number] / [id number] / [id number] Lens Intraoc 21.5 - [id number] - [id number] Implanted:Qty: 1 on 02/03/2017 by Cheko Mcnamara MD at OR [facility] Left: Eye BAUSCH & LOMB 09/02/2021 [id number] / [id number] / [id number] documented as of this encounter Advance Directives [...] were consensually agreed upon. Care Teams Manager Hospital Relationship Specialty Start Date End Date Bárbara Rios DO [address] [place] [address] [place] [address] PCP - General Internal Medicine 08/16/21 documented as of this encounter
--- OUTSIDE RECORDS SUMMARY | 2023-10-20 23:06 | External Medical Summary | Summary of Care ---
Author Name Unknown Organization [facility] Address [address] [facility] [place] [address] Phone [phone] Care Team Providers Care Inspector Scales Name Role Phone Bárbara Rios Primary Care Provider [phone] Reason for Visit * Reason Onset Date Comments [facility]: Maintenance 05/08/2023 Encounter Details Date Type Department Care Team (Late st Contact Info) Description 05/08/2023 Telephone [facility], [facility] [address] [facility] [place] [address] [facility], Nurse [facility] [address] [facility] [place] [address] [facility]: Maintenance Allergies Active Allergy [...] UNITS WITH DINNER PLUS CORRECTION PER [facility] OR DIRECTED UP TO [...] a week. 9 mL 3 04/09/2023 Active Obeec-3-oqig Ethyl Esters 1 GM Oral Capsule (Lovaza) [...] has been better controlled recently. Monitor using [employer] Cindy. Hypertensive heart and kidne y disease [...] yrs 01/04/2018,08/03/2017,07/03 Pneumococcal Conjugate Vacci ne, 20-valent ([id number]) 06/09/2022 Pneumococcal Polysaccharide PPV23 (Pneumovax) 03/06/2020 SEASONAL [...] Telephone Encounter - Amador Hernandez PA-C - 05/08/2023 10:13 AM EDT [facility] Remote Medical Command Phone Encounter Thank you for your assistance in the care of this patient today. Reviewed phone message. I agree w/ the advice offered via phone by our intake nursing team. Please let me know via encounter or TT message if there is any change Thank you in advance, I appreciate it. Amador Hernandez PA-C * Telephone Encounter - Alexandra Mcgraw LPN - 05/08/2023 9:45 AM EDT Images from the original note were not included. [facility] Remote Patient Monitoring Able to contact patient: Trigger type: Abnormal reading(s): AMC (Advanced Monitored Caregiving): Scale: Baseline weight: 293 -10/+3 lbs Trigger weight: 293.9 lbs; weight increased 3.7 lbs in 3 day(s) Trigger priority per AMC: high Patient takes diuretic medication: Yes, reviewed current diuretic use: Name of medication: Torsemide Dose: 40 mg AM and 20 PM pm Frequency: daily Symptom review: Asymptomatic Diet Reviewed: Yes. Patient has had any foods high in sodium: No Fluid Intake Reviewed: Yes. Patient is on a fluid restriction: Yes, restriction amount in milliliters or liters: 2 Adherent to restriction: Yes Self-Management Plan Reviewed: Red Flags: none Risk assignment recommendation: Moderate risk findings (check as applicable): [x] Moderate trigger priority on [facility] [place] [] Confirmed tympanic equivalent temperature 100.4-101.9 F [...] as applicable): [] High trigger priority on [facility] [place] [] Confirmed tympanic equivalent temperature greater than [...] 90 WITH symptoms Additional risk selection justification: call to pt states he feels ok. Reports he was having lightheadedness and dizziness with low BP yesterday. Reports he was instructed by nephrology (notes in chart) to hold PM dose of torsemide yesterday and today he starts a reduced dose of torsemide 40 mg AMand 20 mg pm. Denies increased SOB, -CP, -cough, -BLE edema, -ABD distention. Will continue to monitor. Instructed pt to call [facility] at [phone]# with any new or worsening symptoms Overall risk and identified plan: Will forward to care team and [facility] for any further direction documented in this encounter Plan of Treatment Upcoming Encounters Date Type Department Care Team (Late st Contact Info) Description 05/13/2023 1:40 PM EST Telemedicine Pharmacy, [facility] [address] [facility] [address] [place] [address] Pharmacist1, [facility] [address] [facility] [place] [address] 05/13/2023 2:10 PM EST Telemedicine Pharmacy, [facility] [address] [facility] [place] [address] Pharmacist1, [facility] [address] [facility] [place] [address] 05/19/2023 12:30 PM EST Home Visit [facility], [facility] 132 [facility] [place] [address] Love Stevens, RN 132 [facility] [place] [address] 05/25/2023 9:00 AM EST Nutrition Services [facility], [facility] [address] [facility] [place] [address] Mery Calderon RDN [address] [facility] [place] [address] 06/19/2023 1:30 PM EST Office Visit Nephrology [address] [place] [address] Luisa Ching PA-C [address] [facility] [place] [address] 07/14/2023 9:30 AM EST Telemedicine Cardiology Heather Stephens 400 [place] [address] [facility] Card[facility] [address] [place] [address] 07/22/2023 10:00 AM EST Nurse Only Ancillary [address] [place] [address] [place], Nurse [address] [place] [address] 08/06/2023 10:00 AM EST Office Visit Cardiology, [facility] [address] [place] [address] Evita Brennan CRNP [address] [place] [address] 10/06/2023 2:10 PM EDT Office Visit Family Medicine [address] [place] [address] Bárbara Rios[address] [place] [address] 10/27/2023 8:30 AM EDT Office Visit Sleep Disorders [facility] [address] [place] [phone] Lindsey Sheikh CRNP [address] [place] [address] Scheduled Procedures Name Priority Associated Diagnoses Date/Ti [...] this encounter Medical Devices Implanted Type Area C Unix Developer Device Identifier Shelf Expiration Date Model / Serial / Lot Lens Intraoc 21.0 - [id number] - [id number] Implanted:Qty: 1 on 01/22/2017 by Cheko Mcnamara MD at OR [facility] Right: Eye [employer]OM[employer] 08/05/2021 [id number] / [id number] / [id number] Lens Intraoc 21.5 - [id number] - [id number] Implanted:Qty: 1 on 02/03/2017 by Cheko Mcnamraa MD at OR [facility] Left: Eye BAUSCH [employer] LOMB 09/02/2021 [id number] / [id number] / [id number] documented as of this encounter Advance Directives [...] and were consensually agreed upon. Care Teams Inspector Scales Relationship Specialty Start Date End Date Bárbara Rios DO [address] [place] [address] [place] [address] PCP - General Internal Medicine 08/16/21 documented as of this encounter
--- OUTSIDE RECORDS SUMMARY | 2023-10-20 23:06 | External Medical Summary | Summary of Care ---
Author Name Unknown Organization [facility] Address [address] [facility] [place] [address] Phone [phone] Care Team Providers Care Automatic Mold Sander Name Role Phone Bárbara Rios Primary Care Provider [phone] Reason for Visit * Reason Onset Date Comments [facility]: Maintenance 05/11/2023 Encounter Details Date Type Department Care Team (Late st Contact Info) Description 05/11/2023 1:00 PM EST Scheduled Telephone [facility], [facility] [address] [place] [place] [address] Coordinator, [facility] [address] [place] [place] [address] Allergies Active Allergy Reactions Criticality Noted Date [...] UNITS WITH DINNER PLUS CORRECTION PER [facility] OR DIRECTED UP TO 120 [...] a week. 9 mL 3 04/09/2023 Active Jdjnv-3-qhhh Ethyl Esters 1 GM Oral Capsule (Lovaza) [...] has been better controlled recently. Monitor using [employer] Cindy. Hypertensive heart and kidne y disease [...] yrs 01/04/2018,08/03/2017,07/03 Pneumococcal Conjugate Vacci ne, 20-valent (Yzydxvv01) 06/09/2022 Pneumococcal Polysaccharide PPV23 (Pneumovax) 03/06/2020 SEASONAL [...] encounter Miscellaneous Notes * Telephone Encounter - Christy Choudhury LPN - 05/11/2023 1:32 PM EST Call to patient with recommendations to take metolazone 2.5mg today Spoke to patient and verbazlied understanding and follow up call tomorrow * Telephone Encounter - Wilfredo Mulligan DO - 05/11/2023 1:20 PM EST [facility] Remote Medical Command QuickNote [facility] Subprogram: Focused Care Management (3-9 months) [facility] Episode Start Date: Noted: 05/05/2022 Brief Recommendations: I think it would be reasonable to take a dose of Metolazone to accelerate diureses To Do: Please see below for follow up items to be completed and correspondence: Telephonic [employer] INSTALLER Pool please work on the following: relay advice as above surrounding Tony's remote patient monitoring Wilfredo Mulligan DO Remote Medical Command - [facility] 05/11/2023 Scheduled appointments in the next 60 days: Future Appointments-next 60 days Date/Time Provider Specialty Dept Phone 05/12/2023 10:00 AM Coordinator, Beniamber Aldana [facility] [phone] 05/13/2023 1:40 PM Pharmacist1, [facility] [phone] 05/13/2023 2:10 PM Pharmacist1, [facility] [phone] 05/19/2023 12:30 PM Love Stevens, RN [facility] [phone] 05/25/2023 9:00 AM Mery Calderon RDN [facility] [phone] 06/19/2023 1:30 PM (Arrive by 1:15 PM) Luisa Ching PA-C Nephrology [phone] 07/14/2023 9:30 AM [facility] [phone] 07/22/2023 10:00 AM Nurse [facility] [facility] Ancillary [phone] 08/06/2023 10:00 AM (Arrive by 9:45 AM) Evita Brennan CRNP Cardiology [phone] 10/06/2023 2:10 PM (Arrive by 1:55 PM) Bárbara Rios DO Family Medicine [phone] 10/27/2023 8:30 AM (Arrive by 8:15 AM) Lindsey Sheikh CRNP Sleep Disorders [phone] * Telephone Encounter - Leanne Le LPN [...] to" Will forward to care team and [facility] for recommendations. * Telephone Encounter - Janeth Kelley LPN - 05/11/2023 12:06 PM EST Images from the original note were not included. [facility] Telephonic Nurse Follow-Up Call [facility] Subprogram: Focused Care Management [...] Specialty Dept Phone 05/11/2023 1:00 PM Coordinator, Beniamber Prakash [facility] [phone] 05/12/2023 10:00 AM Coordinator, Beni Prakash Aldana [facility] [phone] 05/13/2023 1:40 PM Pharmacist1, [facility] [phone] 05/13/2023 2:10 PM Pharmacist1, [facility] [phone] 05/19/2023 12:30 PM Love Stevens, RN [facility] [phone] 05/25/2023 9:00 AM Mery Calderon RDN [facility] [phone] 06/19/2023 1:30 PM (Arrive by 1:15 PM) Luisa Ching PA-C Nephrology [phone] 07/14/2023 9:30 AM [facility] Cardiology [phone] 07/22/2023 10:00 AM Nurse [facility] Ancillary [phone] 08/06/2023 10:00 AM (Arrive by 9:45 AM) Evita Brennan CRNP Cardiology [phone] 10/06/2023 2:10 PM (Arrive by 1:55 PM) Bárbara Rios, DO Family Medicine [phone] 10/27/2023 8:30 AM (Arrive by 8:15 AM) Lindsey Sheikh CRNP Sleep Disorders [phone] Janeth Kelley LPN documented in this encounter Plan of Treatment Upcoming Encounters Date Type Department Care Team (Late st Contact Info) Description 05/12/2023 10:00 AM EST Scheduled Telephone [facility], [facility] [address] [place] [address] Coordinator, Beni Prakash Aldana 132 [facility] [place] [address] 05/13/2023 1:40 PM EST Telemedicine Pharmacy, [facility] 200 [facility] [place] [address] Pharmacist1, [facility] 200 [facility] [place] [address] 05/13/2023 2:10 PM EST Telemedicine Pharmacy, [facility] 200 [facility] [place] [address] Pharmacist1, [facility] [address] [place] [address] 05/19/2023 12:30 PM EST Home Visit [facility], [facility] 132 [facility] [place] [address] Love Stevens, ANNE MARIE 132 [facility] [place] [address] 05/25/2023 9:00 AM EST Nutrition Services [facility], [facility] [address] [facility] [place] [address] Mery Calderon, VIVIANAN [address] [facility] [place] [address] 06/19/2023 1:30 PM EST Office Visit Nephrology [address] [place] [address] Luisa Ching PA-C 200 [facility] [place] [address] 07/14/2023 9:30 AM EST Telemedicine Cardiology [facility] [place] 400 [facility] [place] [address] [facility] [address] 07/22/2023 10:00 AM EST Nurse Only Ancillary [address] [place] [address] [place], Nurse Annual [address] [place] [address] 08/06/2023 10:00 AM EST Office Visit Cardiology, [facility] 132 [facility] [place] [address] Evita Brennan CRNP 132 [facility] [place] [address] 10/06/2023 2:10 PM EDT Office Visit Family Medicine [address] [place] [phone] Bárbara Rios[address] [place] [address] 10/27/2023 8:30 AM EDT Office Visit Sleep Disorders Ctr [facility] 132 [facility] [place] [phone] Lindsey Sheikh CRNP 132 [facility] [place] [address] Scheduled Procedures Name Priority Associated Diagnoses Date/Ti [...] this encounter Medical Devices Implanted Type Area Mononitrotoluene Operator Device Identifier Shelf Expiration Date Model / Serial / Lot Lens Intraoc 21.0 - [id number] - [id number] Implanted:Qty: 1 on 01/22/2017 by Cheko Mcnamara MD at OR [facility] Right: Eye [employer]OM[employer] 08/05/2021 [id number] / [id number] / [id number] Lens Intraoc 21.5 - [id number] - [id number] Implanted:Qty: 1 on 02/03/2017 by Cheko Mcnamara MD at OR [facility] Left: Eye BAUSCH [employer] LOMB 09/02/2021 [id number] / [id number] / [id number] documented as of this encounter Advance Directives [...] and were consensually agreed upon. Care Teams Automatic Mold Sander Relationship Specialty Start Date End Date Bárbara Rios DO [address] [place] [address] [place] [address] PCP - General Internal Medicine 08/16/21 documented as of this encounter
--- OUTSIDE RECORDS SUMMARY | 2023-10-20 23:06 | External Medical Summary | Summary of Care ---
Author Name Unknown Organization [facility] Address [address] [facility] [place] [address] Phone [phone] Care Team Providers Care Bus Monitor Name Role Phone Bárbara Rios Primary Care Provider [phone] Reason for Visit * Reason Onset Date Comments Patient Assistance Program 05/01/202305/12 FOLLOW UP Encounter Details Date Type Department Care Team (Late st Contact Info) Description 05/01/2023 Telephone Cardiology, [facility] 132 [facility] [place] [phone] [facility] 21 [facility] [place] [address] Patient Assistance Program (05/12 FOLLOW UP ) [...] 32 UNITS WITH [facility] OR DIRECTED UP TO [...] a week. 9 mL 3 04/09/2023 Active Iugvu-7-sqyw Ethyl Esters 1 GM Oral Capsule (Lovaza) [...] has been better controlled recently. Monitor using [employer] Cindy. Hypertensive heart and kidne y disease [...] yrs 01/04/2018,08/03/2017,07/03 Pneumococcal Conjugate Vacci ne, 20-valent (Qbqmbwi79) 06/09/2022 Pneumococcal Polysaccharide PPV23 (Pneumovax) 03/06/2020 SEASONAL [...] over the Application he filled out from [employer] he said tomorrow or Wendesday he will fax [facility] out once I get it will fax it over to [employer] for re-enrollment spoke with John he is approved from 12/23/2022 - 07/05/2023. CHAPINCITO Schumacher MEDICATION DIRECTOR OF PERSONNEL PHONE : [phone] FAX: [phone] 05/11/2023,2:30 PM * Telephone Encounter - Kaylynn Rapp RPh - 05/01/2023 4:26 PM EDT Received fax from [employer] patient due for 2023 re-enrollment of [place]. Applications will be accepted starting 04/24/23 Please help patient reapply documented in this encounter Plan of Treatment Upcoming Encounters Date Type Department Care Team (Late st Contact Info) Description 05/12/2023 10:00 AM EST Scheduled Telephone [facility], [facility] [address] [place] [address] Coordinator, [facility] [address] [place] [address] 05/13/2023 1:40 PM EST Telemedicine Pharmacy, [facility] 200 [facility] [place], [place] [address] Pharmacist1, [facility] 200 [place] [address] 05/13/2023 2:10 PM EST Telemedicine Pharmacy, [facility] 200 [facility] [place] [address] Pharmacist1, [facility] 200 [place] [address] 05/19/2023 12:30 PM EST Home Visit [facility], [facility] 132 [place] [address] Love Stevens RN [address] [place] [address] 05/25/2023 9:00 AM EST Nutrition Services [facility], [facility] [address] [facility] [place] [address] Mery Calderon, RDN [address] [facility] [place] [address] 06/19/2023 1:30 PM EST Office Visit Nephrology [address] [place] [address] Luisa Ching PA-C [address] [place] [address] 07/14/2023 9:30 AM EST Telemedicine Cardiology [facility] 400 [facility] [place] [address] [facility] Cardiology [address] [place] [address] [facility] [address] 07/22/2023 10:00 AM EST Nurse Only Ancillary [address] [place] [address] [place], Nurse [address] [place] [address] 08/06/2023 10:00 AM EST Office Visit Cardiology, [facility] 132 [facility] [place] [address] Evita Brennan CRNP [address] [place] [address] 10/06/2023 2:10 PM EDT Office Visit Family Medicine [address] [place] [phone] Bárbara Rios, [address] [place] [address] 10/27/2023 8:30 AM EDT Office [facility] [address] [place] [address] Lindsey Sheikh CRNP [address] [place] [address] Scheduled Procedures Name Priority Associated Diagnoses Date/Ti [...] this encounter Medical Devices Implanted Type Area Tag Press Operator Device Identifier Shelf Expiration Date Model / Serial / Lot Lens Intraoc 21.0 - [id number] - [id number] Implanted:Qty: 1 on 01/22/2017 by Cheko Mcnamara MD at OR [facility] Right: Eye [employer]OM[employer] 08/05/2021 [id number] / [id number] / [id number] Lens Intraoc 21.5 - [id number] - [id number] Implanted:Qty: 1 on 02/03/2017 by Cheko Mcnamara MD at OR [facility] Left: Eye BAUSCH [employer] LOMB 09/02/2021 [id number] / [id number] / [id number] documented as of this encounter Advance Directives [...] and were consensually agreed upon. Care Teams Bus Monitor Relationship Specialty Start Date End Date Bárbara Rios DO [address] [place] [address] [place] [address] PCP - General Internal Medicine 08/16/21 documented as of this encounter
--- OUTSIDE RECORDS SUMMARY | 2023-10-20 23:07 | External Medical Summary | Summary of Care ---
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)* Allergies Active Allergy Reactions Criticality Noted Date Comments Other Allergy (See Comments) Rash Low 10/13/2022 1+ cocamidopropyl betaine Sglt2 Inhibitors Other (Please comment) High 09/04/2020 Genital infection Sulfa Antibiotics Rash 10/15/2016 documented as of this encounter (statuses as of 05/07/2023) Medications Medication Sig Dispensed Refills Start Date [...] hemoglobin A1c goal of less than 7.0% ([facility]) INJECT UNDER THE SKIN 26 UNITS AT [...] hemoglobin A1c goal of less than 7.0% ([facility]) USE TO INJECT INSULINS 5 [...] a week. 9 mL 3 04/09/2023 Active Yjzuu-3-ukjr Ethyl Esters 1 GM Oral Capsule (Lovaza) [...] as of this encounter (statuses as of 05/07/2023) Active Problems Problem Noted Date Diagnosed Date [...] has been better controlled recently. Monitor using [employer] Cindy. Hypertensive heart and kidne y disease [...] as of this encounter (statuses as of 05/07/2023) Resolved Problems Problem Noted Date Diagnosed Date [...] as of this encounter (statuses as of 05/07/2023) Immunizations Name Administration Dates Next Due COVID-19 mRNA, LNP-s, No Pre serve, 2-Dose Series (Moderna) 12/10/2020,11/12/2020 Hepatitis B, 20+ yrs 01/04/2018,08/03/2017,07/03 Pneumococcal Conjugate Vacci ne, 20-valent ([id number]) 06/09/2022 Pneumococcal Polysaccharide PPV23 (Pneumovax) 03/06/2020 SEASONAL [...] as of this encounter Progress Notes * Leora Beth RN - 05/07/2023 2:36 PM EDT TE with pt regarding change in Torsemide dose-40mg in AM and 20mg PM. Pt also aware to hold afternoon dose today. He will continue with daily weights and DTP. He will also continue with the Remote blood pressure monitoring. * Shivani Magallon MD - 05/07/2023 2:29 PM EDT Recommend No PM torsemide dose today Starting tomorrow do 40 mg torse AM/20 mg PM Continue DTP Continue remote BP monitoring * Leora Beth RN - 05/07/2023 2:11 PM EDT TE with pt. States he is currently resting in recliner as position changes make him feel lightheaded. Weights for the past 5 days- 292.4 289.5 290.2 291.5 293.3 He reports that his swelling is very much improved. He is not taking any Metolazone at this time. He is taking Torsemide 40mg twice daily. While on the call, I had him recheck pressure. Sitting bp 126/55 Standing 107/48-feels slightly ligh headed but not as bad as it was previously. Please advise. * Shivani Magallon MD - 05/07/2023 1:49 PM EDT Update received re symptomatic hypotension 04/30/23 15:01 05/01/23 15:04 05/02/23 15:21 05/04/23 15:14 05/06/23 11:56 05/07/23 Systolic BP 124 mm/Hg [1] 102 mm/Hg [1] 125 mm/Hg [1] 121 mm/Hg [1] 121 mm/Hg [1] 96 mm/Hg [1] Diastolic BP 64 mm/Hg [1] 51 mm/Hg [1] 64 mm/Hg [1] 55 mm/Hg [1] 59 mm/Hg [1] 49 mm/Hg [1] Pulse 63 bpm [1] 63 bpm [1] 65 bpm [1] 63 bpm [1] 70 bpm [1] 65 bpm [1] RENAL NURSE pls call pt and find out > recent weights past 5 days (was 291-294.4 on 04/24) >pls find out how is edema >what dose metolazone, torsemide is he currently taking >pls have him recheck BP/ find out how he's feeling now -please reinforced with patient low threshold for ER evaluation Please let him know you will be back in touch with next steps once this is reported back to me CARE TEAM FYI * Tanja Fitch LPN - 05/07/2023 1:44 PM EDT Tony Delong [id number] Tony Darian Delong is participating in CC365 HTN Program and had BP alert today for a singular Hypotension reading < 90/50 with a reading today of 85/44 and repeat of 96/49 with symptoms of feeling like he going to faint. Call placed 139p to cell, spoke with pt, he is c/o feeling like he is going to faint. Declines 911 at this time, advised if symptoms worsen to call 911, also advised cautionwhen changing positions to avoid a fall, pt verbalized understanding. He does note, there have been some changes made to his bp medications. Aware I will be sending thisto Dr Magallon. Please review the recent history of home RPM readings in Epic Synopsis Flowsheets and work with your clinical staff if any additional actions or interventions are required. Follow up with clinic staff for patient management - Please reply to acknowledge receipt of alert. Thank you, Tanja Fitch LPN documented in this encounter Plan of Treatment Upcoming Encounters Date Type Department Care Team (Late st Contact Info) Description 05/13/2023 1:40 PM EST Telemedicine Pharmacy, [facility] 200 [facility] [place] [address] Pharmacist1, [facility] 200 [facility] [place] [address] 05/13/2023 2:10 PM EST Telemedicine Pharmacy, [facility] 200 [facility] [place] [address] Pharmacist1, [facility] 200 [facility] [place] [address] 05/19/2023 12:30 PM EST [facility], [facility] 132 [facility] [place] [address] Love Stevens, RN [address] [place] [address] 05/25/2023 9:00 AM EST Nutrition Services [facility], [facility] [address] [facility] [place] [address] Mery Calderon RDN [address] [facility] [place] [address] 06/19/2023 1:30 PM EST Office Visit Nephrology [address] [place] [address] Luisa Ching PA-C [address] [place] [address] 07/14/2023 9:30 AM EST Telemedicine Cardiology [facility] 400 [facility] [place] [address] [facility] 400 [facility] [address] 07/22/2023 10:00 AM EST Nurse Only Ancillary [address] [place] [address] [place], Nurse [address] [place] [address] 08/06/2023 10:00 AM EST Office Visit Cardiology, [facility] [address] [place] [address] Evita Brennan CRNP [address] [place] [address] 10/06/2023 2:10 PM EDT Office Visit Family Medicine [address] [place] [phone] Bárbara Rios [address] [place] [address] 10/27/2023 8:30 AM EDT Office Visit Sleep Disorders Ctr [facility] [address] [place] [phone] Lindsey Sheikh CRNP [address] [place] [address] Scheduled Procedures Name Priority Associated Diagnoses Date/Ti [...] Medical Devices Implanted Type Area X Ray Nurse Device Identifier Shelf Expiration Date Model / Serial / Lot Lens Intraoc 21.0 - [id number] - [id number] Implanted:Qty: 1 on 01/22/2017 by Cheko Mcnamara MD at OR [facility] Right: Eye BAUSCH & LOMB 08/05/2021 [id number] / [id number] / [id number] Lens Intraoc 21.5 - [id number] - [id number] Implanted:Qty: 1 on 02/03/2017 by Cheko Mcnamara MD at OR [facility] Left: Eye BAUSCH & LOMB 09/02/2021 [id number] / [id number] / [id number] documented as of this encounter Visit Diagnoses [...] and were consensually agreed upon. Care Teams Plastic Surgery Technician Relationship Specialty Start Date End Date Bárbara Rios DO [address] [place] [address] [place] [phone] PCP - General Internal Medicine 08/16/21 documented as of this encounter
--- OUTSIDE RECORDS SUMMARY | 2023-10-20 23:07 | External Medical Summary | Summary of Care ---
Author Name Unknown Organization [facility] Address [address] [place] [address] Phone [phone] Care Team Providers Care Critical Care Rn Name Role Phone Bárbara Rios Primary Care Provider Reason for Visit * Reason Onset Date Comments Home Monitoring Alarm 05/07/2023 Encounter Details Date Type Department Care Team (Late st Contact Info) Description 05/07/2023 Home Monitoring Care Coordination [address] [place] [address] Tanja Fitch LPN Hypertensive heart [...] 32 UNITS WITH DINNER PLUS CORRECTION PER [facility] OR DIRECTED UP [...] goal of less than 7.0% ([facility]) USE TO INJECT INSULINS 5 [...] a week. 9 mL 3 04/09/2023 Active Loixh-2-htye Ethyl Esters 1 GM Oral Capsule (Lovaza) [...] has been better controlled recently. Monitor using [employer] Cindy. Hypertensive heart and kidne y disease [...] Plan o Other/Additional Comments: Contact Nephrology (Dr. Magallno) for recommendations due to current NEMESIO Additional [...] yrs 01/04/2018,08/03/2017,07/03 Pneumococcal Conjugate Vacci ne, 20-valent ([id number]) 06/09/2022 Pneumococcal Polysaccharide PPV23 (Pneumovax) 03/06/2020 SEASONAL [...] money to buy more. Never true 07/11/19 Within the past 12 months, t he [...] Progress Notes * Shivani Magallon MD - 05/07/2023 2:29 [...] to me CARE TEAM FYI * Tanja Fitch, ROSCOE - 05/07/2023 1:44 PM EDT Tony Delong [id number] Tony Delong is participating in 365 HTN Program and had BP alert today [...] Description 05/13/2023 1:40 PM EST Telemedicine Pharmacy, [facility] 200 [facility] [place] [address] Pharmacist1, [facility] 200 [facility] [place] [address] 05/13/2023 2:10 PM EST Telemedicine Pharmacy, [facility] 200 [facility] [place] [address] Pharmacist1, [facility] 200 [facility] [place] [address] 05/19/2023 12:30 PM EST [facility], [facility] 132 [facility] [place] [address] Love Stevens, ANNE MARIE 132 [facility] [place] [address] 05/25/2023 9:00 AM EST Nutrition Services [facility], [facility] 1000 [address] [facility] [place] [address] Mery Calderon, RDN 1000 [address] [facility] [place] [address] 06/19/2023 1:30 PM EST Office Visit Nephrology [address] [place] [address] Luisa Ching PA-C 200 [facility] [place] [address] 07/14/2023 9:30 AM EST Telemedicine Cardiology [place] Desiree Christiansonwn 400 [facility] [place] [address] [facility] 400 [place] [address] 07/22/2023 10:00 AM EST Nurse Only Ancillary [address] [place] [address] [place], Nurse Annual [address] [place] [address] 08/06/2023 10:00 AM EST Office Visit Cardiology, [facility] 132 [facility] [place] [address] Evita Brennan CRNP 132 [facility] [place] [address] 10/06/2023 2:10 PM EDT Office Visit Family Medicine [address] [place] [phone] Bárbara Rios, [address] [place] [address] 10/27/2023 8:30 AM EDT Office Visit Sleep Disorders [facility]tr [facility] 132 [facility] [place] [phone] Lindsey Sheikh CRNP 132 [facility] [place] [address] Scheduled Procedures Name Priority Associated Diagnoses Date/Ti [...] this encounter Medical Devices Implanted Type Area Waste Specialist Device Identifier Shelf Expiration Date Model / Serial / Lot Lens Intraoc 21.0 - [id number] - [id number] Implanted:Qty: 1 on 01/22/2017 by Cheko Mcnamara MD at OR [facility] Right: Eye BAUSCH & LOMB 08/05/2021 [id number] / [id number] / [id number] Lens Intraoc 21.5 - [id number] - [id number] Implanted:Qty: 1 on 02/03/2017 by Cheko Mcnamara MD at [facility] Left: Eye BAUSCH & LOMB 09/02/2021 [id number] / [id number] / [id number] documented as of this encounter Visit Diagnoses [...] and were consensually agreed upon. Care Teams Critical Care Rn Relationship Specialty Start Date End Date Bárbara Rios DO [address] [place] [address] [place] [address] PCP - General Internal Medicine 08/16/21 documented as of this encounter
--- OUTSIDE RECORDS SUMMARY | 2023-10-20 23:07 | External Medical Summary | Summary of Care ---
Author Name Unknown Organization [facility] Address [address] [place] [address] Phone [phone] Care Team Providers Care Machine Steak Tenderizer Name Role Phone Bárbara Rios Primary Care Provider [phone] Reason for Visit * Reason Onset Date Comments Home Monitoring Alarm 05/07/2023 Encounter Details Date Type Department Care Team (Late st Contact Info) Description 05/07/2023 Home Monitoring Care Coordination [address] [place] [address] Tanja Fitch LPN Hypertensive heart [...] hemoglobin A1c goal of less than 7.0% ([facility]) USE TO INJECT INSULINS 5 TIMES [...] hemoglobin A1c goal of less than 8.0% ([facility]) Inject 2 mg under the skin once a week. 9 mL 3 04/09/2023 Active Bpihh-7-wdkg Ethyl Esters 1 GM Oral Capsule (Lovaza) [...] has been better controlled recently. Monitor using [employer] Cindy. Hypertensive heart and kidne y disease [...] yrs 01/04/2018,08/03/2017,07/03 Pneumococcal Conjugate Vacci ne, 20-valent ([id number]) 06/09/2022 Pneumococcal Polysaccharide PPV23 (Pneumovax) 03/06/2020 SEASONAL [...] Notes * Shivani Magallon MD - 05/07/2023 1:49 [...] - 05/07/2023 1:44 PM EDT Tony Delong [id number] Tony Delong is participating in CC365 HTN Program [...] Description 05/13/2023 1:40 PM EST Telemedicine Pharmacy, [facility] 200 [facility] [place] [address] Pharmacist1, [facility] 200 [facility] [place] [address] 05/13/2023 2:10 PM EST Telemedicine Pharmacy, [facility] 200 [facility] [place] [address] Pharmacist1, [facility] 200 [facility] [place] [address] 05/19/2023 12:30 PM EST Home Visit [facility] [place], [facility] 132 [facility] [place] [address] Love Stevens, ANNE MARIE 132 [facility] [place] [address] 05/25/2023 9:00 AM EST Nutrition Services [facility], [facility] 1000 E [facility] [place] [address] Mery Calderon, RDN [address] [facility] [place] [address] 06/19/2023 1:30 PM EST Office Visit Nephrology [address] [place] [address] Luisa Ching PA-C [address] [place] [address] 07/14/2023 9:30 AM EST Telemedicine Cardiology [place] 400 [facility] [place] [address] [facility] [address] [place] [address] [place] [address] 07/22/2023 10:00 AM EST Nurse Only Ancillary [address] [place] [address] [place], Nurse [address] [place] [address] 08/06/2023 10:00 AM EST Office Visit Cardiology, [facility] [address] [place] [address] Evita Brennan CRNP [address] [place] [address] 10/06/2023 2:10 PM EDT Office Visit Family Medicine [address] [place] [phone] Bárbara Rios, [address] [place] [address] 10/27/2023 8:30 AM EDT Office Visit Sleep Disorders Ctr [facility] [address] [place] [phone] Lindsey Sheikh CRNP [address] [place] [address] Scheduled Procedures Name Priority Associated Diagnoses Date/Ti [...] this encounter Medical Devices Implanted Type Area Manager Data Center Device Identifier Shelf Expiration Date Model / Serial / Lot Lens Intraoc 21.0 - [id number] - [id number] Implanted:Qty: 1 on 01/22/2017 by Cheko Mcnamara MD at OR [facility] Right: Eye BAUSCH & LOMB 08/05/2021 [id number] / [id number] / [id number] Lens Intraoc 21.5 - [id number] - [id number] Implanted:Qty: 1 on 02/03/2017 by Cheko Mcnamara MD at OR [facility] Left: Eye BAUSCH & LOMB 09/02/2021 [id number] / [id number] / [id number] documented as of this encounter Visit Diagnoses [...] and were consensually agreed upon. Care Teams Machine Steak Tenderizer Relationship Specialty Start Date End Date Bárbara Rios DO [address] [place] [address] [place] [address] PCP - General Internal Medicine 08/16/21 documented as of this encounter
--- OUTSIDE RECORDS SUMMARY | 2023-10-20 23:07 | External Medical Summary | Summary of Care ---
Author Name Unknown Organization [facility] Address [address] [place] [address] Phone [phone] Care Team Providers Care Roll Cutter Name Role Phone Bárbara Rios Primary Care Provider [phone] Reason for Visit * Reason Onset Date Comments Medication Refill 04/24/2023 Encounter Details Date Type Department Care Team (Late st Contact Info) Description 04/24/2023 Hospital Laboratory Technician Telephone Care Coordination [address] [place], [place] [phone] Christy Garcia, ANNE MARIE [address] [place], [place] [id number] Medication Refill Allergies Active Allergy Reactions Criticality Noted Date Comments Other Allergy (See Comments) Rash Low 10/13/2022 1+ cocamidopropyl betaine Sglt2 Inhibitors Other (Please comment) High 09/04/2020 Genital infection Sulfa Antibiotics Rash 10/15/2016 documented as of this encounter (statuses as of 04/28/2023) Medications Medication Sig Dispensed Refills Start Date [...] 32 UNITS WITH DINNER PLUS CORRECTION PER [facility] OR DIRECTED UP TO [...] a week. 9 mL 3 04/09/2023 Active Tmkoc-3-bbqo Ethyl Esters 1 GM Oral Capsule (Lovaza) [...] 04/17/2023 Active Carvedilol 25 MG Oral Tablet (Coreg)Indications [...] MINUTES BEFORE A MEAL 180 Capsule 1 10/23/2022 3 Discontinu ed(Refill) Hospital, Clinic, or Other Facility [...] as of this encounter (statuses as of 04/28/2023) Active Problems Problem Noted Date Diagnosed Date [...] has been better controlled recently. Monitor using [employer] Cindy. Hypertensive heart and kidne y disease [...] as of this encounter (statuses as of 04/28/2023) Resolved Problems Problem Noted Date Diagnosed Date [...] as of this encounter (statuses as of 04/28/2023) Immunizations Name Administration Dates Next Due COVID-19 mRNA, LNP-s, No Pre serve, 2-Dose Series (Moderna) 12/10/2020,11/12/2020 Hepatitis B, 20+ yrs 01/04/2018,08/03/2017,07/03 Pneumococcal Conjugate Vacci ne, 20-valent ([id number]) 06/09/2022 Pneumococcal Polysaccharide PPV23 (Pneumovax) 03/06/2020 SEASONAL [...] encounter Miscellaneous Notes * Telephone Encounter - Cathi Fox LPN - 04/28/2023 10:36 AM EDT Sent myg to patient requesting weight log and asking for update on edema. * Telephone Encounter - Leora Beth RN - 04/24/2023 4:14 PM EDT TE with pt . He is aware to increase Torsemide to 40mg BID and Metaolozone 2.5mg today and on Thursday. Order pended for potassium 10meq . * Telephone Encounter - Shivani Magallon MD - 04/24/2023 2:07 PM EDT ON THURSDAY when he comes for labs -call or myG LOG of weights over past week not just 1-2 days. -let us know how he's doing for fluid status/edema For now for TODAY -increase torsemide to 40 mg bid -take metolazone 2.5 mg today and thursday -start potassium 10 mEq daily Pls reach out to me on 04/27 w/ results on above * Telephone Encounter - Christy Garcia RN - 04/24/2023 1:08 PM EDT CKD CM pt concern Pt called in to report that his wt is up, he had torsemide increased by [facility] provider. For last two days has been taking Torsemide 80mg in AM and 40mg in pm. Wt yesterday 294.1 today 294.4 Pt reports that today he is getting SOB without exertion. Pt reports abdominal edema. No significant increase in urinary output noted by pt. Review of med list indicates that he has taken metolazone 2.5 mg in the past twice per week. Pt does have metolazone in the home. He is going to have BMP done on Thursday. Reviewed red flags, if pt has continued wt gain, SOB edema over the weekend contact [facility], or go to ED. Recommendations? Thank you, Christy Garcia RN CKD Hospital Laboratory Technician documented in this encounter Plan of Treatment Upcoming Encounters Date Type Department Care Team (Late st Contact Info) Description 05/13/2023 1:40 PM EST Telemedicine Pharmacy, [facility] 200 [facility] [place] [address] Pharmacist1, [facility] 200 [facility] [place] [address] 05/13/2023 2:10 PM EST Telemedicine Pharmacy, [facility] 200 [facility] [place] [address] Pharmacist1, [facility] 200 [facility] [place] [address] 05/19/2023 12:30 PM EST [facility] [place], [facility] 132 [place] [address] Love Stevens, ANNE MARIE [address] [place] [address] 05/25/2023 9:00 AM EST Nutrition Services [facility], [facility] 1000 E [facility] [place] [address] Mery Calderon, RDN 1000 [address] [facility] [place] [address] 06/19/2023 1:30 PM EST Office Visit Nephrology [address] [place] [address] Luisa Ching PA-C [address] [place] [address] 07/14/2023 9:30 AM EST Telemedicine Cardiology [facility] 400 [facility] [place] [address] [facility] Card[facility] [address] [place], [place] [address] [address] 07/22/2023 10:00 AM EST Nurse Only Ancillary [address] [place] [address] [place], Nurse [address] [place] [address] 08/06/2023 10:00 AM EST Office Visit Cardiology, [facility] [address] [place] [address] Evita Brennan CRNP [address] [place] [address] 10/06/2023 2:10 PM EDT Office Visit Family Medicine [address] [place] [phone] Bárbara Rios[address] [place] [address] 10/27/2023 8:30 AM EDT Office Visit [facility] Ctr [facility] [address] [place] [phone] Lindsey Sheikh CRNP [address] [place] [address] Scheduled Procedures Name Priority Associated Diagnoses Date/Ti [...] 10/27/2023 04/27/2023, 04/05, 04/01/2023, Additional history exists DIABETES-EYE EXAM 01/01/2024 12/31/2022, , 05/28/2021, Additional history exists [...] this encounter Medical Devices Implanted Type Area Tip Stitcher Device Identifier Shelf Expiration Date Model / Serial / Lot Lens Intraoc 21.0 - [id number] - [id number] Implanted:Qty: 1 on 01/22/2017 by Cheko Mcnamara MD at OR [facility] Right: Eye BAUSCH & LOMB 08/05/2021 [id number] / [id number] / [id number] Lens Intraoc 21.5 - [id number] - [id number] Implanted:Qty: 1 on 02/03/2017 by Cheko Mcnamara MD at OR [facility] Left: Eye BAUSCH & LOMB 09/02/2021 [id number] / [id number] / [id number] documented as of this encounter Visit Diagnoses [...] and were consensually agreed upon. Care Teams Roll Cutter Relationship Specialty Start Date End Date Bárbara Rios DO [address] [place] [address] [place] [address] PCP - General Internal Medicine 08/16/21 documented as of this encounter
--- OUTSIDE RECORDS SUMMARY | 2023-10-20 23:07 | External Medical Summary | Summary of Care ---
Author Name Unknown Organization [facility] Address [address] [facility] [place] [address] Phone [phone] Care Team Providers Care Senior Controls Analyst Name Role Phone Bárbara Rios Primary Care Provider [phone] Encounter Details Date Type Department Care Team (Late st Contact Info) Description 05/01/2023 Telephone Cardiology, [facility] [address] [facility] [place] [address] Kaylynn [facility] [place] 21 [facility] [place] [phone] Allergies Active Allergy Reactions Criticality Noted Date Comments Other Allergy (See Comments) Rash Low 10/13/2022 1+ cocamidopropyl betaine Sglt2 Inhibitors Other (Please comment) High 09/04/2020 Genital infection Sulfa Antibiotics Rash 10/15/2016 documented as of this encounter (statuses as of 05/01/2023) Medications Medication Sig Dispensed Refills Start Date [...] a week. 9 mL 3 04/09/2023 Active Oepbb-5-mswz Ethyl Esters 1 GM Oral Capsule (Lovaza) [...] as of this encounter (statuses as of 05/01/2023) Active Problems Problem Noted Date Diagnosed Date [...] has been better controlled recently. Monitor using [employer]. Hypertensive heart and kidne y disease with [...] Therapy: Carvedilol o ARIANNA Inhibitor/ARB Therapy: No AIRANNA/ARB/ARNI secondary to: Currently holding due to NEMESIO [...] as of this encounter (statuses as of 05/01/2023) Resolved Problems Problem Noted Date Diagnosed Date [...] as of this encounter (statuses as of 05/01/2023) Immunizations Name Administration Dates Next Due COVID-19 mRNA, LNP-s, No Pre serve, 2-Dose Series (Moderna) 12/10/2020,11/12/2020 Hepatitis B, 20+ yrs 01/04/2018,08/03/2017,07/03 Pneumococcal Conjugate Vacci ne, 20-valent ([id number]) 06/09/2022 Pneumococcal Polysaccharide PPV23 (Pneumovax) 03/06/2020 SEASONAL [...] 05/01/2023 4:26 PM EDT Received fax from [employer] patient due for 2023 [facility]rollment of [facility] Applications will be accepted starting 04/24/23 Please help patient reapply documented in this encounter Plan of Treatment Upcoming Encounters Date Type Department Care Team (Late st Contact Info) Description 05/13/2023 1:40 PM EST Telemedicine Pharmacy, [facility] [address] [place] [address] [address] Pharmacist1, [facility] [address] [place] [address] 05/13/2023 2:10 PM EST Telemedicine Pharmacy, [facility] [address] [place] [address] [address] Pharmacist1, [facility] [address] [place] [address] 05/19/2023 12:30 PM EST [facility], [facility] [address] [place] [address] Love Stevens, RN 132 [place] [address] 05/25/2023 9:00 AM EST Nutrition Services [facility], [facility] [address] [facility] [place] [address] RorominghassanMery, RDN [address] [facility] [place] [address] 06/19/2023 1:30 PM EST Office Visit Nephrology [address] [place] [address] Luisa Ching PA-C 200 [facility] [place] [address] 07/14/2023 9:30 AM EST [facility] 400 [facility] [place] [address] [facility] 400 [facility] [place] [address] 07/22/2023 10:00 AM EST Nurse Only Ancillary [address] [place] [address] [place], Nurse [address] [place] [address] 08/06/2023 10:00 AM EST Office Visit Cardiology, [facility] [address] [place] [address] [address] Evita Brennan CRNP 132 [place] [address] [address] 10/06/2023 2:10 PM EDT Office Visit Family Medicine [address] [place] [phone] Bárbara Rois, [address] [place] [address] 10/27/2023 8:30 AM EDT Office Visit Sleep Disorders Ctr [facility]iano [facility] [address] [place] [address] Lindsey Sheikh CRNP [address] [place] [address] Scheduled Procedures Name Priority Associated Diagnoses Date/Ti [...] this encounter Medical Devices Implanted Type Area Bend Up Device Identifier Shelf Expiration Date Model / Serial / Lot Lens Intraoc 21.0 - [id number] - [id number] Implanted:Qty: 1 on 01/22/2017 by Cheko Mcnamara MD at OR [facility] Right: Eye BAUSCH & LOMB 08/05/2021 [id number] / [id number] / [id number] Lens Intraoc 21.5 - [id number] - [id number] Implanted:Qty: 1 on 02/03/2017 by Cheko Mcnamara MD at OR [facility] Left: Eye BAUSCH & LOMB 09/02/2021 [id number] / [id number] / [id number] documented as of this encounter Advance Directives [...] and were consensually agreed upon. Care Teams Senior Controls Analyst Relationship Specialty Start Date End Date Bárbara Rios DO [address] [place] [address] [place] [address] PCP - General Internal Medicine 08/16/21 documented as of this encounter
--- OUTSIDE RECORDS SUMMARY | 2023-10-20 23:07 | External Medical Summary | Summary of Care ---
Author Name Unknown Organization [facility] Address [address] [facility] [place] [address] Phone [phone] Care Team Providers Care Senior User Experience Architect Name Role Phone Bárbara Rios DO Primary Care Provider Reason for Visit * Reason Onset Date Comments Medication Management 04/30/2023 Encounter Details Date Type Department Care Team (Late st Contact Info) Description 04/30/2023 Telephone Family Medicine [address] [place] [address] Bárbara Rios DO [address] [place] [address] [place] [address] Medication Management Allergies Active Allergy Reactions Criticality Noted Date Comments Other Allergy (See Comments) Rash Low 10/13/2022 1+ cocamidopropyl betaine Sglt2 Inhibitors Other (Please comment) High 09/04/2020 Genital infection Sulfa Antibiotics Rash 10/15/2016 documented as of this encounter (statuses as of 04/30/2023) Medications Medication Sig Dispensed Refills Start Date [...] UNITS WITH DINNER PLUS CORRECTION PER [facility] OR DIRECTED UP TO 120 [...] a week. 9 mL 3 04/09/2023 Active Sfyec-3-vsjm Ethyl Esters 1 GM Oral Capsule (Lovaza) [...] as of this encounter (statuses as of 04/30/2023) Active Problems Problem Noted Date Diagnosed Date [...] has been better controlled recently. Monitor using [employer] Cindy. Hypertensive heart and kidne y disease [...] as of this encounter (statuses as of 04/30/2023) Resolved Problems Problem Noted Date Diagnosed Date [...] as of this encounter (statuses as of 04/30/2023) Immunizations Name Administration Dates Next Due COVID-19 mRNA, LNP-s, No Pre serve, 2-Dose Series (Moderna) 12/10/2020,11/12/2020 Hepatitis B, 20+ yrs 01/04/2018,08/03/2017,07/03 Pneumococcal Conjugate Vacci ne, 20-valent ([id number]) 06/09/2022 Pneumococcal Polysaccharide PPV23 (Pneumovax) 03/06/2020 SEASONAL [...] encounter Miscellaneous Notes * Telephone Encounter - Theresa Gardiner LPN - 04/30/2023 3:42 PM EDT Concepción received from patient assistance program. In med frie. Pt aware. documented in this encounter Plan of Treatment Upcoming Encounters Date Type Department Care Team (Late st Contact Info) Description 05/13/2023 1:40 PM EST Telemedicine Pharmacy, [facility] 200 [facility] [place] [address] Pharmacist1, [facility] [address] [place] [address] 05/13/2023 2:10 PM EST Telemedicine Pharmacy, [facility] 200 [facility] [place] [address] Pharmacist1, [facility] [address] [place] [address] 05/19/2023 12:30 PM EST [facility] 132 [facility] [place] [address] Love Stevens RN 132 [facility] [place] [address] 05/25/2023 9:00 AM EST Nutrition Services [facility], [facility] 1000 [address] [facility] [place] [address] Mery Calderon, RDN 1000 [address] [facility] [place] [address] 06/19/2023 1:30 PM EST Office Visit Nephrology [address] [place] [address] Luisa Ching PA-C [address] [place] [address] 07/14/2023 9:30 AM EST [facility] 400 [facility] [place] [address] [facility] 400 [facility] [place] [address] 07/22/2023 10:00 AM EST Nurse Only Ancillary [address] [place] [address] [place], Nurse [address] [place] [address] 08/06/2023 10:00 AM EST Office Visit Cardiology, [facility] [address] [place] [address] Evita Brennan CRNP [address] [place] [address] 10/06/2023 2:10 PM EDT Office Visit Family Medicine [address] [place] [phone] Bárbara Rios, [address] [place] [address] 10/27/2023 8:30 AM EDT Office Visit Sleep Disorders Ctr Maximiliano [facility] [address] [place] [address] Lindsey Sheikh CRNP [address] [place] [address] Scheduled Procedures Name Priority Associated Diagnoses Date/Ti [...] this encounter Medical Devices Implanted Type Area Metal Flooring Installer Device Identifier Shelf Expiration Date Model / Serial / Lot Lens Intraoc 21.0 - [id number] - [id number] Implanted:Qty: 1 on 01/22/2017 by Cheko Mcnamara MD at OR [facility] Right: Eye BAUSCH & LOMB 08/05/2021 [id number] / [id number] / [id number] Lens Intraoc 21.5 - [id number] - [id number] Implanted:Qty: 1 on 02/03/2017 by Cheko Mcnamara MD at OR [facility] Left: Eye BAUSCH & LOMB 09/02/2021 [id number] / [id number] / [id number] documented as of this encounter Advance Directives [...] were consensually agreed upon. Care Teams Senior User Experience Architect Relationship Specialty Start Date End Date Bárbara Rios DO [address] [place] [address] [place] [phone] PCP - General Internal Medicine 08/16/21 documented as of this encounter
--- OUTSIDE RECORDS SUMMARY | 2023-10-20 23:07 | External Medical Summary | Summary of Care ---
Author Name Unknown Organization [facility] Address [address] [facility] [place] [address] Phone [phone] Care Team Providers Care Trailer Body Assembler Name Role Phone Bárbara Rios Primary Care Provider [phone] Encounter Details Date Type Department Care Team (Late st Contact Info) Description 05/01/2023 Telephone Cardiology, [facility] 132 [facility] [place] [address] [address] [facility] 21 [facility] [place] [phone] Allergies Active Allergy Reactions Criticality Noted Date Comments Other Allergy (See Comments) Rash Low 10/13/2022 1+ cocamidopropyl betaine Sglt2 Inhibitors Other (Please comment) High 09/04/2020 Genital infection Sulfa Antibiotics Rash 10/15/2016 documented as of this encounter (statuses as of 05/04/2023) Medications Medication Sig Dispensed Refills Start Date [...] a week. 9 mL 3 04/09/2023 Active Cvkfc-7-doza Ethyl Esters 1 GM Oral Capsule (Lovaza) [...] as of this encounter (statuses as of 05/04/2023) Active Problems Problem Noted Date Diagnosed Date [...] has been better controlled recently. Monitor using [employer]. Hypertensive heart and kidne y disease with [...] as of this encounter (statuses as of 05/04/2023) Resolved Problems Problem Noted Date Diagnosed Date [...] as of this encounter (statuses as of 05/04/2023) Immunizations Name Administration Dates Next Due COVID-19 mRNA, LNP-s, No Pre serve, 2-Dose Series (Moderna) 12/10/2020,11/12/2020 Hepatitis B, 20+ yrs 01/04/2018,08/03/2017,07/03 Pneumococcal Conjugate Vacci ne, 20-valent (Ihljnkg06) 06/09/2022 Pneumococcal Polysaccharide PPV23 (Pneumovax) 03/06/2020 SEASONAL [...] 05/01/2023 4:26 PM EDT Received fax from [employer] patient due for 2023 [facility]ment [facility]. Applications will be accepted starting 04/24/23 Please help patient reapply documented in this encounter Plan of Treatment Upcoming Encounters Date Type Department Care Team (Late st Contact Info) Description 05/13/2023 1:40 PM EST Telemedicine Pharmacy, [facility] [address] [place] [address] [address] Pharmacist1, [facility] [address] [place] [address] [address] 05/13/2023 2:10 PM EST Telemedicine Pharmacy, [facility] [address] [place] [address] Pharmacist1, [facility] [address] [place] [address] 05/19/2023 12:30 PM EST [facility], [facility] [address] [place] [address] Love Stevens, RN 132 [place] [address] 05/25/2023 9:00 AM EST Nutrition Services [facility], [facility] 1000 [address] [facility] [place] [address] RorominghassanMery, RDN 1000 [address] [facility] [place] [address] 06/19/2023 1:30 PM EST Office Visit Nephrology [address] [place] [address] Luisa Ching PA-C 200 [facility] [place] [address] 07/14/2023 9:30 AM EST [facility] 400 [facility] [place] [address] [facility] 400 [facility] [place] [address] 07/22/2023 10:00 AM EST Nurse Only Ancillary [address] [place] [address] [place], Nurse [address] [place] [address] 08/06/2023 10:00 AM EST Office Visit Cardiology, [facility] 132 [place] [address] Evita Brennan CRNP 132 [place] [address] 10/06/2023 2:10 PM EDT Office Visit Family Medicine [address] [place] [phone] Bárbara Rios, [address] [place] [address] 10/27/2023 8:30 AM EDT Office Visit Sleep Disorders Ctr Maxim[facility]iano [facility] [address] [place] [address] Lindsey Sheikh CRNP [address] [place] [address] Scheduled Procedures Name Priority Associated Diagnoses Date/Ti [...] this encounter Medical Devices Implanted Type Area Traffic Controller Cable Device Identifier Shelf Expiration Date Model / Serial / Lot Lens Intraoc 21.0 - [id number] - [id number] Implanted:Qty: 1 on 01/22/2017 by Cheko Mcnamara MD at OR [facility] Right: Eye BAUSCH & LOMB 08/05/2021 [id number] / [id number] / [id number] Lens Intraoc 21.5 - [id number] - [id number] Implanted:Qty: 1 on 02/03/2017 by Cheko Mcnamara MD at OR [facility] Left: Eye BAUSCH & LOMB 09/02/2021 [id number] / [id number] / [id number] documented as of this encounter Advance Directives [...] and were consensually agreed upon. Care Teams Trailer Body Assembler Relationship Specialty Start Date End Date Bárbara Rios DO [address] [place] [address] [place] [address] PCP - General Internal Medicine 08/16/21 documented as of this encounter
--- OUTSIDE RECORDS SUMMARY | 2023-10-20 23:07 | External Medical Summary | Summary of Care ---
Author Name Unknown Organization [facility] Address [address] [facility] [place] [address] Phone [phone] Care Team Providers Care Grinder And Plater Name Role Phone Bárbara Rios Primary Care Provider [phone] Reason for Visit * Reason Onset Date Comments [facility]: Maintenance 05/08/2023 Encounter Details Date Type Department Care Team (Late st Contact Info) Description 05/08/2023 Telephone [facility], [facility] [address] [facility] [place] [address] [facility], Nurse [facility] 1000 [address] [facility] [place] [address] [facility]: Maintenance Allergies Active Allergy [...] 32 UNITS WITH DINNER PLUS CORRECTION PER [facility] OR DIRECTED UP TO 120 [...] a week. 9 mL 3 04/09/2023 Active Jgcbq-3-cifu Ethyl Esters 1 GM Oral Capsule (Lovaza) [...] has been better controlled recently. Monitor using [employer] Cindy. Hypertensive heart and kidne y disease [...] yrs 01/04/2018,08/03/2017,07/03 Pneumococcal Conjugate Vacci ne, 20-valent (Mhrcomw53) 06/09/2022 Pneumococcal Polysaccharide PPV23 (Pneumovax) 03/06/2020 SEASONAL [...] as applicable): [x] Moderate trigger priority on [facility] [] Confirmed tympanic equivalent [...] as applicable): [] High trigger priority on [facility] [] Confirmed tympanic equivalent temperature greater than [...] continue to monitor. Instructed pt to call [facility] at [phone]# with any new or worsening symptoms Overall risk and identified plan: Will forward to care team and [facility] for any further direction documented in this encounter Plan of Treatment Upcoming Encounters Date Type Department Care Team (Late st Contact Info) Description 05/13/2023 1:40 PM EST Telemedicine Pharmacy, [facility] 200 [facility] [address] [place] [address] Pharmacist1, [facility] 200 [facility] [place] [address] 05/13/2023 2:10 PM EST Telemedicine Pharmacy, [facility] 200 [facility] [place] [address] Pharmacist1, [facility] 200 [facility] [place] [address] 05/19/2023 12:30 PM EST [facility] Visit [facility], [facility] 132 [facility] [place] [address] Love Stevens, RN 132 [facility] [place] [address] 05/25/2023 9:00 AM EST Nutrition Services [facility], [facility] [address] [facility] [place] [address] Mery Calderon RDN [address] [facility] [place] [address] 06/19/2023 1:30 PM EST Office Visit Nephrology [address] [place] [address] Luisa Ching PA-C 200 [facility] [place] [address] 07/14/2023 9:30 AM EST Telemedicine Cardiology [place] 400 [place] [address] [facility] 400 [place] [address] 07/22/2023 10:00 AM EST Nurse Only Ancillary [address] [place] [address] [place], Nurse [address] [place] [address] 08/06/2023 10:00 AM EST Office Visit Cardiology, [facility] [address] [place] [address] Evita Brennan CRNP [address] [place] [address] 10/06/2023 2:10 PM EDT Office Visit Family Medicine [address] [place] [phone] Bárbara Rios[address] [place] [address] 10/27/2023 8:30 AM EDT Office Visit Sleep Disorders [facility] [address] [place] [phone] Lindsey Sheikh CRNP [address] [place] [address] Scheduled Procedures Name Priority Associated Diagnoses Date/Ti [...] this encounter Medical Devices Implanted Type Area Pipe Stem Repairer Device Identifier Shelf Expiration Date Model / Serial / Lot Lens Intraoc 21.0 - [id number] - [id number] Implanted:Qty: 1 on 01/22/2017 by Cheko Mcnamara MD at OR [facility] Right: Eye BAUSCH & LOMB 08/05/2021 [id number] / [id number] / [id number] Lens Intraoc 21.5 - [id number] - [id number] Implanted:Qty: 1 on 02/03/2017 by Cheko Mcnamara MD at OR [facility] Left: Eye BAUSCH & LOMB 09/02/2021 [id number] / [id number] / [id number] documented as of this encounter Advance Directives [...] and were consensually agreed upon. Care Teams Grinder And Plater Relationship Specialty Start Date End Date Bárbara Rios DO [address] [place] [address] [place] [address] PCP - General Internal Medicine 08/16/21 documented as of this encounter
--- OUTSIDE RECORDS SUMMARY | 2023-10-20 23:07 | External Medical Summary | Summary of Care ---
Author Name Unknown Organization [facility] Address [address] [place] [address] Phone [phone] Care Team Providers Care Hard Tile Setter Name Role Phone Bárbara Rios Primary Care Provider [phone] Reason for Visit * Reason Onset Date Comments Home Monitoring Alarm 05/07/2023 Encounter Details Date Type Department Care Team (Late st Contact Info) Description 05/07/2023 Home Monitoring Care Coordination [address] [place] [address] Tanja Fitch LPN Hypertensive heart [...] UNITS WITH DINNER PLUS CORRECTION PER [facility] OR DIRECTED UP TO 120 UNITS [...] a week. 9 mL 3 04/09/2023 Active Kfbvy-7-vhnq Ethyl Esters 1 GM Oral Capsule (Lovaza) [...] has been better controlled recently. Monitor using [employer] Cindy. Hypertensive heart and kidne y disease [...] yrs 01/04/2018,08/03/2017,07/03 Pneumococcal Conjugate Vacci ne, 20-valent (Djwjpcg22) 06/09/2022 Pneumococcal Polysaccharide PPV23 (Pneumovax) 03/06/2020 SEASONAL [...] Notes * Leora Beth RN - 05/07/2023 2:11 [...] - 05/07/2023 1:44 PM EDT Tony Delong [id number] Tony Delong is participating in CC365 HTN [...] st Contact Info) Description 05/13/2023 1:40 PM [facility] Telemedicine Pharmacy, [address] [place] [address] Pharmacist1, [facility] [address] [place] [address] 05/13/2023 2:10 PM EST Telemedicine Pharmacy, [facility] [place] [address] [place] [address] Pharmacist1, [facility] [address] [place] [place] [address] 05/19/2023 12:30 PM EST [facility] Visit [facility], [facility] [address] [place] [address] Love Stevens, ANNE MARIE [address] [place] [address] 05/25/2023 9:00 AM EST Nutrition Services [facility], [facility] 1000 E [facility] [place] [address] Mery Calderon, VIVIANAN 1000 [facility] [address] 06/19/2023 1:30 PM EST Office Visit Nephrology [address] [place] [address] Luisa Ching PA-C [address] [place] [address] 07/14/2023 9:30 AM EST Telemedicine Cardiology [facility] 400 [facility] [place] [address] [facility] 400 [facility] [place] [address] 07/22/2023 10:00 AM EST Nurse Only Ancillary [address] [place] [address] [place], Nurse [address] [place] [address] 08/06/2023 10:00 AM EST Office Visit Cardiology, [facility] [address] [place] [address] Evita Brennan CRNP [address] [place] [address] 10/06/2023 2:10 PM EDT Office Visit Family [address] [phone] Bárbara Rios[address] [place] [address] 10/27/2023 8:30 AM EDT Office Visit Sleep Disorders Ctr [facility] [address] [place] [phone] Lindsey Sheikh CRNP 132 [facility] [place] [address] Scheduled Procedures Name Priority Associated Diagnoses Date/Ti [...] this encounter Medical Devices Implanted Type Area Income Tax Expert Device Identifier Shelf Expiration Date Model / Serial / Lot Lens Intraoc 21.0 - [id number] - [id number] Implanted:Qty: 1 on 01/22/2017 by Cheko Mcnamara MD at OR [facility] Right: Eye BAUSCH & LOMB 08/05/2021 [id number] / [id number] / [id number] Lens Intraoc 21.5 - [id number] - [id number] Implanted:Qty: 1 on 02/03/2017 by Cheko Mcnamara MD at OR [facility] Left: Eye BAUSCH & LOMB 09/02/2021 [id number] / [id number] / [id number] documented as of this encounter Visit Diagnoses [...] were consensually agreed upon. Care Teams Hard Tile Setter Relationship Specialty Start Date End Date Bárbara Rios DO [address] [place] [address] [place] [address] PCP - General Internal Medicine 08/16/21 documented as of this encounter
--- OUTSIDE RECORDS SUMMARY | 2023-10-20 23:07 | External Medical Summary | Summary of Care ---
Author Name Unknown Organization [facility] Address [address] [facility] [place] [address] Phone [phone] Care Team Providers Care Microeconomics Professor Name Role Phone Bárbara Rios DO Primary Care Provider Reason for Visit * Reason Onset Date Comments Medication Management 04/30/2023 Encounter Details Date Type Department Care Team (Late st Contact Info) Description 04/30/2023 Telephone Family Medicine [address] [place] [phone] Bárbara Rios DO [address] [place] [address] [place] [address] Medication Management Allergies Active Allergy Reactions Criticality [...] a week. 9 mL 3 04/09/2023 Active Iuujk-4-rwwc Ethyl Esters 1 GM Oral Capsule (Lovaza) [...] has been better controlled recently. Monitor using [employer] Cindy. Hypertensive heart and kidne y [...] yrs 01/04/2018,08/03/2017,07/03 Pneumococcal Conjugate Vacci ne, 20-valent ([id number]) 06/09/2022 Pneumococcal Polysaccharide PPV23 (Pneumovax) 03/06/2020 SEASONAL [...] encounter Miscellaneous Notes * Telephone Encounter - Cayla Parsons - 05/01/2023 3:51 PM EDT Tony Fregoso's spouse, came in the office to pickle processor the Ozempic for Tony. * Telephone Encounter - Theresa Gardiner LPN - 04/30/2023 3:42 PM EDT Ozempic received from patient assistance program. In [facility]. Pt aware. documented in this encounter Plan of Treatment Upcoming Encounters Date Type Department Care Team (Late st Contact Info) Description 05/13/2023 1:40 PM EST Telemedicine Pharmacy, [facility] [place] [address] [place] [address] Pharmacist1, [facility] [address] [place] [address] 05/13/2023 2:10 PM EST Telemedicine Pharmacy, [facility] [place] [address] [place] [address] [address] [address] Pharmacist1, [facility] [address] [place] [address] 05/19/2023 12:30 PM EST [facility], [facility] [address] [place] [address] Love Stevens, ANNE MARIE 132 [facility] [place] [address] 05/25/2023 9:00 AM EST Nutrition Services [facility], [facility] [address] [facility] [place] [address] Mery Calderon RDN [address] [facility] [place] [address] 06/19/2023 1:30 PM EST Office Visit Nephrology [address] [place] [address] Luisa Ching PA-C [address] [place] [address] 07/14/2023 9:30 AM EST Telemedicine Cardiology [facility] [address] [facility] [place] [address] [facility] Cardiology [address] [facility] [address] 07/22/2023 10:00 AM EST Nurse Only Ancillary [address] [place] [address] [place], Nurse [address] [place] [address] 08/06/2023 10:00 AM EST Office Visit Cardiology, [facility] [address] [place] [address] Evita Brennan CRNP [address] [place] [address] 10/06/2023 2:10 PM EDT Office Visit Family Medicine [address] [place] [phone] Bárbara Rios [address] [place] [address] 10/27/2023 8:30 AM EDT Office Visit [facility] Disorders Ctr [facility] [address] [place] [phone] Lindsey Sheikh CRNP [address] [place] [address] Scheduled Procedures Name Priority Associated Diagnoses Date/Ti [...] this encounter Medical Devices Implanted Type Area Bending Roll Hand Device Identifier Shelf Expiration Date Model / Serial / Lot Lens Intraoc 21.0 - [id number] - [id number] Implanted:Qty: 1 on 01/22/2017 by Cheko Mcnamara MD at OR [facility] Right: Eye [employer]USCH [employer] LOMB 08/05/2021 [id number] / [id number] / [id number] Lens Intraoc 21.5 - [id number] - [id number] Implanted:Qty: 1 on 02/03/2017 by Cheko Mcnamara MD at OR [facility] Left: Eye BAUSCH [employer] LOMB 09/02/2021 [id number] / [id number] / [id number] documented as of this encounter Advance Directives [...] and were consensually agreed upon. Care Teams Microeconomics Professor Relationship Specialty Start Date End Date Bárbara Rios DO [address] [place] [address] [place] [address] PCP - General Internal Medicine 08/16/21 documented as of this encounter
--- OUTSIDE RECORDS SUMMARY | 2023-10-20 23:07 | External Medical Summary | Summary of Care ---
Author Name Unknown Organization [facility] Address [address] [place] [address] Phone [phone] Care Team Providers Care Learning Support Resource Room Teacher Name Role Phone Bárbara Rios Primary Care Provider Reason for Visit * Reason Onset Date Comments Home Monitoring Alarm 05/07/2023 Encounter Details Date Type Department Care Team (Late st Contact Info) Description 05/07/2023 Home Monitoring Care Coordination [address] [place] [address] Tanja Fitch LPN Hypertensive heart [...] A1c goal of less than 7.0% ([facility]) INJECT UNDER THE SKIN 26 UNITS AT BREAKFAST, 26 UNITS AT LUNCH, 32 UNITS WITH DINNER PLUS CORRECTION PER [facility] OR DIRECTED UP TO [...] A1c goal of less than 7.0% ([facility]) USE TO INJECT INSULINS 5 TIMES DAILY. [...] a week. 9 mL 3 04/09/2023 Active Jdkoy-1-pezl Ethyl Esters 1 GM Oral Capsule (Lovaza) [...] has been better controlled recently. Monitor using [employer] Cindy. Hypertensive heart and kidne y disease [...] yrs 01/04/2018,08/03/2017,07/03 Pneumococcal Conjugate Vacci ne, 20-valent ([id number]) 06/09/2022 Pneumococcal Polysaccharide PPV23 (Pneumovax) 03/06/2020 SEASONAL [...] as of this encounter Progress Notes * Evita Brennan CRNP - 05/07/2023 3:13 PM EDT Thank you for the update. REGGIE Villanueva * Leora Beth RN - 05/07/2023 2:36 [...] - 05/07/2023 1:44 PM EDT Tony Delong [id number] Tony Delong is participating in CC365 HTN [...] Description 05/13/2023 1:40 PM EST Telemedicine Pharmacy, [facility] 200 [facility] [place] [address] Pharmacist1, [facility] 200 [facility] [place] [address] 05/13/2023 2:10 PM EST Telemedicine Pharmacy, [facility] 200 [facility] [place] [address] Pharmacist1, [facility] 200 [facility] [place] [address] 05/19/2023 12:30 PM EST [facility], [facility] [place] [address] Love Stevens, ANNE MARIE [address] [place] [address] 05/25/2023 9:00 AM EST Nutrition Services [facility], [facility] [address] [facility] [place] [address] Mery Calderon, RDN [address] [facility] [place] [address] 06/19/2023 1:30 PM EST Office Visit Nephrology [address] [place] [address] Luisa Ching PA-C [address] [place] [address] 07/14/2023 9:30 AM EST Telemedicine Cardiology [facility] 400 [facility] [place] [address] [facility] [address] [place], [place] [address] [address] 07/22/2023 10:00 AM EST Nurse Only Ancillary [address] [place] [address] [place], Nurse [address] [place] [address] 08/06/2023 10:00 AM EST Office Visit Cardiology, [facility] 132 [facility] [place] [address] Evita Brennan CRNP [address] [place] [address] 10/06/2023 2:10 PM EDT Office Visit Family Medicine [address] [place] [phone] Bárbara Rios, [address] [place] [address] 10/27/2023 8:30 AM EDT Office Visit Sleep Disorders Ctr [facility] [address] [place] [phone] Lindsey Sheikh CRNP [address] [place] [address] Scheduled Procedures Name Priority Associated Diagnoses Date/Ti [...] this encounter Medical Devices Implanted Type Area Civil Engineering Professional Device Identifier Shelf Expiration Date Model / Serial / Lot Lens Intraoc 21.0 - [id number] - [id number] Implanted:Qty: 1 on 01/22/2017 by Cheko Mcnamara MD at OR [facility] Right: Eye [employer]CH [employer] LOMB 08/05/2021 [id number] / [id number] / [id number] Lens Intraoc 21.5 - [id number] - [id number] Implanted:Qty: 1 on 02/03/2017 by Cheko Mcnamara MD at OR [facility] Left: Eye BAUSCH [employer] LOMB 09/02/2021 [id number] / [id number] / [id number] documented as of this encounter Visit Diagnoses [...] and were consensually agreed upon. Care Teams Learning Support Resource Room Teacher Relationship Specialty Start Date End Date Bárbara Rios DO [address] [place] [address] [place] [address] PCP - General Internal Medicine 08/16/21 documented as of this encounter
--- OUTSIDE RECORDS SUMMARY | 2023-10-20 23:07 | External Medical Summary | Summary of Care ---
Author Name Unknown Organization [facility] Address [address] [facility] [place] [address] Phone [phone] Care Team Providers Care Form Building Supervisor Name Role Phone Bárbara Rios Primary Care Provider [phone] Encounter Details Date Type Department Care Team (Late st Contact Info) Description 05/01/2023 Telephone Cardiology, [facility] [address] [facility] [place] [address] [facility] 21 [facility] [place] [phone] Allergies Active Allergy Reactions Criticality Noted Date [...] 32 UNITS WITH DINNER PLUS CORRECTION PER [facility] OR DIRECTED UP TO [...] a week. 9 mL 3 04/09/2023 Active Zmjqi-1-nldo Ethyl Esters 1 GM Oral Capsule (Lovaza) [...] has been better controlled recently. Monitor using [employer]. Hypertensive heart and kidne y disease with [...] yrs 01/04/2018,08/03/2017,07/03 Pneumococcal Conjugate Vacci ne, 20-valent ([id number]) 06/09/2022 Pneumococcal Polysaccharide PPV23 (Pneumovax) 03/06/2020 SEASONAL [...] 05/01/2023 4:26 PM EDT Received fax from [employer] patient due for 2023 re-enrollment of [facility]ybil. Applications will be accepted starting 04/24/23 Please help patient reapply documented in this encounter Plan of Treatment Upcoming Encounters Date Type Department Care Team (Late st Contact Info) Description 05/13/2023 1:40 PM EST Telemedicine Pharmacy, [facility] [address] [place] [address] [address] Pharmacist1, [facility] [address] [place] [address] 05/13/2023 2:10 PM EST Telemedicine Pharmacy, [facility] [address] [place] [address] [address] [address] Pharmacist1, [facility] [address] [place] [address] 05/19/2023 12:30 PM EST [facility], [facility] [address] [place] [address] Love Stevens, RN [address] [place] [address] 05/25/2023 9:00 AM EST Nutrition Services [facility], [facility] [address] [facility] [place] [address] RorominghassanMery, RDN [address] [facility] [place] [address] 06/19/2023 1:30 PM EST Office Visit Nephrology [address] [place] [address] Luisa Ching PA-C 200 [facility] [place] [address] 07/14/2023 9:30 AM EST [facility] [place] [address] [facility] 400 [facility] [place]ES[place]MA[place] [address] 07/22/2023 10:00 AM EST Nurse Only Ancillary [address] [place] [address] [place], Nurse [address] [place] [address] 08/06/2023 10:00 AM EST Office Visit Cardiology, [facility] [address] [place] [address] Evita Brennan CRNP [address] [place] [address] 10/06/2023 2:10 PM EDT Office Visit Family Medicine [address] [place] [phone] Brábara Rios, [address] [place] [address] 10/27/2023 8:30 AM EDT Office Visit Sleep Disorders Ctr [facility] [address] [place] [phone] Lindsey Sheikh CRNP [address] [place] [address] Scheduled Procedures Name Priority Associated Diagnoses Date/Ti [...] this encounter Medical Devices Implanted Type Area Long Wall Mining Machine Helper Device Identifier Shelf Expiration Date Model / Serial / Lot Lens Intraoc 21.0 - [id number] - [id number] Implanted:Qty: 1 on 01/22/2017 by Cheko Mcnamara MD at OR [facility] Right: Eye BAUSCH [employer] LOMB 08/05/2021 [id number] / [id number] / [id number] Lens Intraoc 21.5 - [id number] - [id number] Implanted:Qty: 1 on 02/03/2017 by Cheko Mcnamara MD at OR [facility] Left: Eye BAUSCH & LOMB 09/02/2021 [id number] / [id number] / [id number] documented as of this encounter Advance Directives [...] and were consensually agreed upon. Care Teams Form Building Supervisor Relationship Specialty Start Date End Date Bárbara Rios DO [address] [place] [address] [place] [address] PCP - General Internal Medicine 08/16/21 documented as of this encounter
--- OUTSIDE RECORDS SUMMARY | 2023-10-20 23:08 | External Medical Summary | Summary of Care ---
Author Name Unknown Organization [facility] Address [address] [place] [address] Phone [phone] Care Team Providers Care Marketing Trainee Name Role Phone Bárbara Rios Primary Care Provider [phone] Reason for Visit * Reason Onset Date Comments case management 04/24/2023 CKD CM pt concer n/wt gain Encounter Details Date Type Department Care Team Description 04/24/2023 Lapping Machine Set Up Operator Telephone Care Coordination [address] [place], [place] [phone] Christy Garcia, ANNE MARIE [address] [place], [place] [phone] case management (CKD CM pt concern/wt gain) Allergies Active Allergy Reactions Severity Noted Date Comments Other Allergy (See Comments) Rash Low 10/13/2022 1+ cocamidopropyl betaine Sglt2 Inhibitors Other (Please comment) High 09/04/2020 Genital infection Sulfa Antibiotics Rash 10/15/2016 documented as of this encounter (statuses as of 04/24/2023) Medications Medication Sig Dispensed Refills Start Date [...] DAY 120 mL 3 12/18/2022 4 Active Omeprazole 20 MG Oral Capsule Delayed Release (PriLOSEC) TAKE 1 CAPSULE BY MOUTH IN THE MORNING AND 1 CAPSULE BEFORE BEDTIME 30 MINUTES BEFORE A MEAL 180 Capsule 1 10/23/2022 4 Active hydrALAZINE HCl 25 MG Oral [...] a week. 9 mL 3 04/09/2023 Active Wpfhb-3-jhvi Ethyl Esters 1 GM Oral Capsule (Lovaza) [...] BEFORE BEDTIME 200 Tablet 3 04/19/2023 Active Potassium Chloride Gaviota ER 10 MEQ Oral Tablet Extended ReleaseIndications: 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) Take 1 Tablet by mouth in the morning. 30 Tablet 5 04/24/2023 Active Hospital, Clinic, or Other Facility Administered [...] as of this encounter (statuses as of 04/24/2023) Active Problems Problem Noted Date Chronic obstructive pulmonary disease Last Assessment & Plan: PFTs done on 12/18/2022 show severe obstructive disease. Not currently requiring any inhaled medications. Needs follow-up scheduled with Pulmonary to discuss results and recommendations. Chronic heart failure with preserved eje ction fraction 10/03/2022 Sacroiliitis 09/02/2022 Type 2 diabetes mellitus [...] has been better controlled recently. Monitor using [employer] Cindy. Hypertensive heart and kidne y disease [...] Thursday morning. 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 Will hold fenofibrate due to EGFR less than 30. -already has repeat lipid panel scheduled in 3 months. History of tobacco use 08/18/2017 CHAPINCITO on CPAP 08/18/2017 Overview: ?18cwp Type 2 diabetes mellitus with hemoglobin A1c [...] as of this encounter (statuses as of 04/24/2023) Resolved Problems Problem Noted Date Resolved Date NEMESIO (acute kidney injury) 04/30/20222022 Severe obesity with body mas s index (BMI) of 35.0 to 39.9 with serious comorbidity 04/30/2022 09/02/2022 Acute on chronic diastolic heart failure 022 10/03/2022 Elevated LFTs 08/16/2021 05/25/2022 Hypertensive heart disease w ith chronic diastolic congestive heart failure 01/25/2021 04/21/2022 Need for pneumococcal vaccination 03/06/2020 05/29/2020 Severe obesity with body mas s index (BMI) of 35.0 to 39.9 with serious comorbidity 07/11/2019 07/21/2019 Severe obesity with body mas s index (BMI) of 35.0 to 39.9 with serious comorbidity 08/18/2017 04/20/2019 Overview: Per Obesity protocol - ICD-10 update of inactive diagnosis Mild single current episode of major depressive disorder 12/31/2016 08/18/2017 HTN, goal below 140/90 12/31/2016 2 Cataract of both eyes 12/31/2016 08/18/2017 documented as of this encounter (statuses as of 04/24/2023) Immunizations Name Administration Dates Next Due COVID-19 mRNA, LNP-s, No Pre serve, 2-Dose Series (Moderna) 12/10/2020,11/12/2020 Hepatitis B, 20+ yrs 01/04/2018,08/03/2017,07/03 Pneumococcal Conjugate Vacci ne, 20-valent ([id number]) 06/09/2022 Pneumococcal Polysaccharide PPV23 (Pneumovax) 03/06/2020 SEASONAL [...] drink = 0.6 oz pur e alcohol) Food Insecurity Answer Date Recorded Within the past 12 months, y ou worried that your food would run out before you got money to buy more. Never true 07/11/2022 Within the past 12 months, t he food you bought just didn't last and you didn't have money to get more. Never true 07/11/2022 Sex Assigned at Date Recorded Male 12/06/2018 8:36 AM E DT Job Start Date Occupation Industry Not on file Not on file Not on file documented as of this encounter Miscellaneous Notes * Telephone Encounter - Leora Beth RN [...] Recommendations? Thank you, Christy Garcia RN CKD Lapping Machine Set Up Operator documented in this encounter Plan of Treatment Upcoming Encounters Date Type Specialty Care Team Description 05/13/2023 Telemedicine Pharmacy Pharmacist1, [facility] [address] [facility] [place] [address] 05/13/2023 Telemedicine Pharmacy Pharmacist1, [facility] 200 [facility] [place] [address] 05/19/2023 [facility] Love Stevens RN [address] [place] [address] 05/25/2023 Nutrition Services [facility] Mery Calderon RDN [address] [facility] [place] [address] 06/19/2023 Office Visit Nephrology Luisa Ching PA-C 200 [facility] [place] [address] 07/14/2023 Telemedicine Cardiology [facility] 400 [facility] [place] [phone] 07/22/2023 Nurse Only Ancillary [place], Nurse Annual [address] [place] [address] 08/06/2023 Office Visit Cardiology Evita Brennan CRNP [address] [place] [address] 10/06/2023 Office Visit Family Medicine Bárbara Rios[address] [place] [address] 10/27/2023 Office Visit Sleep Disorders Lindsey Sheikh CRNP [address] [place] [address] Scheduled Procedures Name Priority Associated Diagnoses Date/Ti [...] 04/01/2023, 12/04, 09/02/2022, Additional history exists GFR 10/21/2023 04/21/2023, 03/07, 03/24/2023, Additional history exists DIABETES-EYE EXAM 01/01/2024 12/31/2022, [...] this encounter Medical Devices Implanted Type Area Professor Of Art History Device Identifier Shelf Expiration Date Model / Serial / Lot Lens Intraoc 21.0 - [id number] - [id number] Implanted:Qty: 1 on 01/22/2017 by Cheko Mcnamara MD at OR [facility] [address] [facility] Right: Eye [employer]CH [employer] LOMB 08/05/2021 [id number] / [id number] / [id number] Lens Intraoc 21.5 - [id number] - [id number] Implanted:Qty: 1 on 02/03/2017 by Cheko Mcnamara MD at OR [facility] Left: Eye BAUSCH & LOMB 09/02/2021 [id number] / [id number] / [id number] documented as of this encounter Visit Diagnoses [...] and were consensually agreed upon. Care Teams Marketing Trainee Relationship Specialty Start Date End Date Bárbara Rios[address] [place] [address] PCP - General Internal Medicine 08/16/21 documented as of this encounter
--- OUTSIDE RECORDS SUMMARY | 2023-10-20 23:08 | External Medical Summary | Summary of Care ---
Author Name Unknown Organization [facility] Address [address] [place] [address] Phone [phone] Care Team Providers Care Turbo Generator Oiler Name Role Phone Bárbara Rios Primary Care Provider [phone] Reason for Visit * Reason Onset Date Comments Medication Refill 04/24/2023 Encounter Details Date Type Department Care Team (Late st Contact Info) Description 04/24/2023 Air Intelligence Officer Telephone Care Coordination [address], [place] [phone] Christy Garcia, ANNE MARIE [address], [place] [phone] Medication Refill Allergies Active Allergy Reactions Criticality Noted Date Comments Other Allergy (See Comments) Rash Low 10/13/2022 1+ cocamidopropyl betaine Sglt2 Inhibitors Other (Please comment) High 09/04/2020 Genital infection Sulfa Antibiotics Rash 10/15/2016 documented as of this encounter (statuses as of 04/27/2023) Medications Medication Sig Dispensed Refills Start Date [...] a week. 9 mL 3 04/09/2023 Active Nxjpq-1-qvll Ethyl Esters 1 GM Oral Capsule (Lovaza) [...] as of this encounter (statuses as of 04/27/2023) Active Problems Problem Noted Date Diagnosed Date [...] has been better controlled recently. Monitor using [employer] Cindy. Hypertensive heart and kidne y disease [...] as of this encounter (statuses as of 04/27/2023) Resolved Problems Problem Noted Date Diagnosed Date [...] as of this encounter (statuses as of 04/27/2023) Immunizations Name Administration Dates Next Due COVID-19 mRNA, LNP-s, No Pre serve, 2-Dose Series (Moderna) 12/10/2020,11/12/2020 Hepatitis B, 20+ yrs 01/04/2018,08/03/2017,07/03 Pneumococcal Conjugate Vacci ne, 20-valent ([id number]) 06/09/2022 Pneumococcal Polysaccharide PPV23 (Pneumovax) 03/06/2020 SEASONAL [...] Recommendations? Thank you, Christy Garcia RN CKD Air Intelligence Officer documented in this encounter Plan of Treatment Upcoming Encounters Date Type Department Care Team (Late st Contact Info) Description 05/13/2023 1:40 PM EST Telemedicine Pharmacy, [facility] 200 [facility] [place] [address] Pharmacist1, [facility] 200 [facility] [place] [address] 05/13/2023 2:10 PM EST Telemedicine Pharmacy, [facility] 200 [facility] [place] [address] Pharmacist1, [facility] [address] [facility] [place] [address] 05/19/2023 12:30 PM EST [facility], [facility] 132 [facility] [place] [address] Love Stevens, RN 132 [facility] [place] [address] 05/25/2023 9:00 AM EST Nutrition Services [facility], [facility] [address] [facility] [place] [address] Mery Calderon RDN [address] [facility] [place] [address] 06/19/2023 1:30 PM EST Office Visit Nephrology [address] [place] [address] Luisa Ching PA-C [address] [place] [address] 07/14/2023 9:30 AM EST Telemedicine Cardiology [place] [facility] [place] [address] [facility] 400 [facility] [place] [address] 07/22/2023 10:00 AM EST Nurse Only Ancillary [address] [place] [address] [place], Nurse [address] [place] [address] 08/06/2023 10:00 AM EST Office Visit Cardiology, [facility] [address] [place] [address] Evita Brennan CRNP [address] [place] [address] 10/06/2023 2:10 PM EDT Office Visit Family Medicine [address] [place] [phone] Bárbara Rios[address] [place] [address] 10/27/2023 8:30 AM EDT Office Visit Sleep Disorders [facility] [address] [place] [phone] Lindsey Sheikh CRNP [address] [place] [address] Scheduled Procedures Name Priority Associated Diagnoses Date/Ti [...] this encounter Medical Devices Implanted Type Area Histologist Device Identifier Shelf Expiration Date Model / Serial / Lot Lens Intraoc 21.0 - [id number] - [id number] Implanted:Qty: 1 on 01/22/2017 by Cheko Mcnamara MD at OR [facility] Right: Eye BAUSCH & LOMB 08/05/2021 [id number] / [id number] / [id number] Lens Intraoc 21.5 - [id number] - [id number] Implanted:Qty: 1 on 02/03/2017 by Cheko Mcnamara MD at OR [facility] Left: Eye BAUSCH & LOMB 09/02/2021 [id number] / [id number] / [id number] documented as of this encounter Visit Diagnoses [...] and were consensually agreed upon. Care Teams Turbo Generator Oiler Relationship Specialty Start Date End Date Bárbara Rios DO [address] [place] [address] [place] [address] PCP - General Internal Medicine 08/16/21 documented as of this encounter
--- OUTSIDE RECORDS SUMMARY | 2023-10-20 23:08 | External Medical Summary | Summary of Care ---
Author Name Unknown Organization [facility] Address [address] [place] [address] Phone [phone] Care Team Providers Care Muck Miner Blasting Name Role Phone Bárbara Rios Primary Care Provider [phone] Reason for Visit * Reason Onset Date Comments case management 04/24/2023 CKD CM pt concer n/wt gain Encounter Details Date Type Department Care Team Description 04/24/2023 Cellar Supervisor Telephone Care Coordination [address] [place], [place] [phone] Christy Garcia, ANNE MARIE [address] [place], [place] [phone] case management (CKD CM pt concern/wt gain) [...] UNITS WITH DINNER PLUS CORRECTION PER [facility] OR DIRECTED UP TO [...] a week. 9 mL 3 04/09/2023 Active Zgjzt-5-dsld Ethyl Esters 1 GM Oral Capsule (Lovaza) [...] has been better controlled recently. Monitor using Pin digital Cindy. Hypertensive heart and kidne y disease [...] yrs 01/04/2018,08/03/2017,07/03 Pneumococcal Conjugate Vacci ne, 20-valent ([id number]) 06/09/2022 Pneumococcal Polysaccharide PPV23 (Pneumovax) 03/06/2020 SEASONAL [...] Recommendations? Thank you, Christy Garcia RN CKD Cellar Supervisor documented in this encounter Plan of Treatment Upcoming Encounters Date Type Specialty Care Team Description 05/13/2023 Telemedicine Pharmacy Pharmacist1, [facility] 200 [facility] [place] [address] 05/13/2023 Telemedicine Pharmacy Pharmacist1, [facility] 200 [facility] [place] [address] 05/19/2023 Home Visit [facility] Love Stevens RN [address] [place] [address] 05/25/2023 Nutrition Services [facility] Mery Calderon RDN 1000 [address] [facility] [place] [address] 06/19/2023 Office Visit Nephrology Luisa Ching PA-C 200 [facility] [place] [address] 07/14/2023 Telemedicine Cardiology [facility] [place] [phone] 07/22/2023 Nurse Only Ancillary [place], Nurse Annual [address] [place] [address] 08/06/2023 Office Visit Cardiology Evita Brennan CRNP [address] [place] [address] 10/06/2023 Office Visit Family Medicine Bárbara Rios[address] [place] [address] 10/27/2023 Office Visit Sleep Disorders Lindsey Sheikh CRNP [address] [place] [address] Scheduled Procedures Name Priority Associated Diagnoses Date/Ti [...] this encounter Medical Devices Implanted Type Area Trailhead Construction Worker Device Identifier Shelf Expiration Date Model / Serial / Lot Lens Intraoc 21.0 - [id number] - [id number] Implanted:Qty: 1 on 01/22/2017 by Cheko Mcnamara MD at OR [facility] Right: Eye BAUSCH & LOMB 08/05/2021 [id number] / [id number] / [id number] Lens Intraoc 21.5 - [id number] - [id number] Implanted:Qty: 1 on 02/03/2017 by Cheko Mcnamara MD at OR [facility] Left: Eye BAUSCH & LOMB 09/02/2021 [id number] / [id number] / [id number] documented as of this encounter Visit Diagnoses [...] and were consensually agreed upon. Care Teams Muck Miner Blasting Relationship Specialty Start Date End Date Bárbara Rios[address] [place] [address] PCP - General Internal Medicine 08/16/21 documented as of this encounter
--- OUTSIDE RECORDS SUMMARY | 2023-10-20 23:08 | External Medical Summary | Summary of Care ---
Author Name Unknown Organization [facility] Address [address] [place] [address] Phone [phone] Care Team Providers Care Jewel Stripper Name Role Phone Sridhar rAshad Primary Care Provider Reason for Visit * Reason Comments Medication Refill Encounter Details Date Type Department Care Team (Late st Contact Info) Description 04/27/2023 Refill [facility], [facility] 132 [facility] [place] [address] Lucie Swan PA-C [address] [place], [place] [phone] Allergies Active Allergy Reactions Criticality Noted Date [...] a week. 9 mL 3 04/09/2023 Active Nvzam-6-akxq Ethyl Esters 1 GM Oral Capsule (Lovaza) [...] MEAL 180 Capsule 1 04/28/2023 4 Active Omeprazole 20 MG Oral Capsule [...] has been better controlled recently. Monitor using [employer] Cindy. Hypertensive heart and kidne y disease [...] yrs 01/04/2018,08/03/2017,07/03 Pneumococcal Conjugate Vacci ne, 20-valent (Rzsckgq10) 06/09/2022 Pneumococcal Polysaccharide PPV23 (Pneumovax) 03/06/2020 SEASONAL [...] Telephone Encounter - Sridhar Arshad DO - 04/28/2023 8:31 AM EDTSigned Prescriptions: Disp Refills Omeprazole 20 MG Oral Capsule Delayed Rele*180 Ca*1 Sig: TAKE 1 CAPSULE BY MOUTH IN THE MORNING AND 1 CAPSULE BEFORE BEDTIME 30 MINUTES BEFORE A MEAL Authorizing Provider: SRIDHAR ARSHAD * Telephone Encounter - Alexandra Mcgraw LPN - 04/27/2023 5:03 PM EDTPending Prescriptions: Disp Refills Omeprazole 20 MG Oral Capsule Delayed Rele*180 Ca*1 Sig: TAKE 1 CAPSULE BY MOUTH IN THE MORNING AND 1 CAPSULE BEFORE BEDTIME 30 MINUTES BEFORE A MEAL * Telephone Encounter - Stephanie Sheriff RP - 04/27/2023 9:58 AM EDTPending Prescriptions: Disp Refills Omeprazole 20 MG Oral Capsule Delayed Rele*180 Ca*1 Sig: TAKE 1 CAPSULE BY MOUTH IN THE MORNING AND 1 CAPSULE BEFORE BEDTIME 30 MINUTES BEFORE A MEAL documented in this encounter Plan of Treatment Upcoming Encounters Date Type Department Care Team (Late st Contact Info) Description 05/13/2023 1:40 PM EST Telemedicine Pharmacy, [facility] 200 [facility] [place], [place] [address] Pharmacist1, [facility] 200 [facility] [place], [place] [address] 05/13/2023 2:10 PM EST Telemedicine Pharmacy, [facility] 200 [facility] [place], [place] [address] Pharmacist1, [facility] 200 [facility], [place] [address] 05/19/2023 12:30 PM EST Home Visit [facility], [facility] 132 [place] [address] Love Stevens, ANNE MARIE 132 [place] [address] 05/25/2023 9:00 AM EST Nutrition Services [facility], [facility] 1000 [address] [facility] [place] [address] Mery Calderon, RDN 1000 [address] [facility] [place] [address] 06/19/2023 1:30 PM EST Office Visit Nephrology [address] [place] [address] Luisa Ching PA-C [address] [place] [address] 07/14/2023 9:30 AM EST Telemedicine Cardiology [facility] 400 [facility] [place] [address] [facility] 400 [facility] [place] [address] 07/22/2023 10:00 AM EST Nurse Only Ancillary [address] [place] [address] [place], Nurse [address] [place] [address] 08/06/2023 10:00 AM EST Office Visit Cardiology, [facility] 132 [facility] [place] [address] Evita Brennan CRNP 132 [facility] [place] [address] 10/06/2023 2:10 PM EDT Office Visit Family Medicine [address] [place] [phone] Sridhar Arshad, [address] [place] [address] 10/27/2023 8:30 AM EDT Office Visit Sleep Disorders [facility] 132 [facility] [place] [phone] Lindsey Sheikh CRNP [address] [place] [address] Scheduled Procedures Name Priority Associated Diagnoses Date/Ti [...] this encounter Medical Devices Implanted Type Area Underwear Welter Device Identifier Shelf Expiration Date Model / Serial / Lot Lens Intraoc 21.0 - [id number] - [id number] Implanted:Qty: 1 on 01/22/2017 by Cheko Mcnamara MD at OR [facility] Right: Eye BAUSCH & LOMB 08/05/2021 [id number] / [id number] / [id number] Lens Intraoc 21.5 - [id number] - [id number] Implanted:Qty: 1 on 02/03/2017 by Cheko Mcnamara MD at OR [facility] Left: Eye BAUSCH & LOMB 09/02/2021 [id number] / [id number] / [id number] documented as of this encounter Advance Directives [...] and were consensually agreed upon. Care Teams Jewel Stripper Relationship Specialty Start Date End Date Sridhar Arshad DO [address] [place] [address] [place] [phone] PCP - General Internal Medicine 08/16/21 documented as of this encounter
--- OUTSIDE RECORDS SUMMARY | 2023-10-20 23:08 | External Medical Summary ---
Author Name Unknown Address Unknown Organization K01:[facility] [address] [place] [address] Laboratory Report Ordering Provider Test Date Status JANKAREEN 04/27/2023 14:03:16 Final Observation Date Value Abnormality Reference (Units ) Status BUN 04/27/2023 14:03:16 44 Above high normal 6-20 (mg/dL) Final Creatinine 04/27/2023 14:03:16 1.9 Above high normal 0.6-1.2 (mg/dL) Final Glomerular filtration rate/1.73 sq M.predicted [Volume Rate/Area] in Serum, Plasma or Blood by Creatinine-based formula (CKD-EPI) 04/27/2023 14:03:16 39 Below low normal >=60 (mL/min) Final eGFR is calculated based on the CKD-EPI 2020 equation SODIUM 04/27/2023 14:03:16 140 135-146 (m mol/L) Final Potassium 04/27/2023 14:03:16 4.2 3.5-5.1 (m mol/L) Final Cl 04/27/2023 14:03:16 100 98-107 (mm ol/L) Final CO2 04/27/2023 14:03:16 26 22-32 (mmo l/L) Final Anion gap 04/27/2023 14:03:16 14 7-15 (mmol /L) Final Glucose 04/27/2023 14:03:16 215 Above high normal 70 -120 (mg/dL) Final Calcium 04/27/2023 14:03:16 9.8 8.4-10.2 ( mg/dL) Final Performing Location [facility] [address] [place] [address]
--- OUTSIDE RECORDS SUMMARY | 2023-10-20 23:08 | External Medical Summary | Summary of Care ---
Author Name Unknown Organization [facility] Address [address] [facility] [place] [address] Phone [phone] Care Team Providers Care Aircraft Machinist Name Role Phone Bárbara Rios Primary Care Provider [phone] Reason for Visit * Reason Onset Date Comments [facility]: Maintenance 04/24/2023 Encounter Details Date Type Department Care Team Description 04/24/2023 Scheduled Telephone [facility], [facility] 132 [facility] [place] [address] Coordinator, [facility] 132 [facility] [place] [address] Allergies Active Allergy Reactions Severity Noted Date [...] 32 UNITS WITH DINNER PLUS CORRECTION PER [facility] OR DIRECTED UP [...] a week. 9 mL 3 04/09/2023 Active Wkhup-9-aqee Ethyl Esters 1 GM Oral Capsule (Lovaza) [...] BEFORE BEDTIME 200 Tablet 3 04/19/2023 Active Hospital, Clinic, or Other Facility Administered [...] has been better controlled recently. Monitor using [employer] Cindy. Hypertensive heart and kidne y disease [...] yrs 01/04/2018,08/03/2017,07/03 Pneumococcal Conjugate Vacci ne, 20-valent (Bctomdo92) 06/09/2022 Pneumococcal Polysaccharide PPV23 (Pneumovax) 03/06/2020 SEASONAL [...] encounter Miscellaneous Notes * Telephone Encounter - John Bradford DO - 04/24/2023 10:12 AM EDT [facility] Phone Encounter Reviewed phone message. I agree w/ the advice offered via phone by our intake nursing team. Please let me know via encounter or TT message if there is any change Thank you in advance, I appreciate it. John Bradford DO [facility] Plumbing Assembler Installer - [facility] 04/24/2023 * Telephone Encounter - Ara Lizama RN - 04/24/2023 9:52 AM EDT Images from the original note were not included. [facility] Telephonic Nurse Follow-Up Call [facility] Subprogram: Focused Care Management (3-9 months) Follow [...] kg/m2 41 kg/m2 No results found for: BLOOD, PROTEIN, ESTERASE, WBC, NITRITE, QUANT URINE CULTURE GROWTH No results found for: WBC AUTO - [facility], HGB - [facility], PLATELET AUTO - [facility] Lab Results Component Value Date SODIUM - [facility] 141 04/21/2023 POTASSIUM - [facility] 4.0 04/21/2023 CO2 - [facility] 25 04/21/2023 CREATININE - [facility] 1.8 (H) 04/21/2023 ESTIMATED GLOMERULAR FILTRATION RATE - [facility] 43 (L) 04/21/2023 No results found for: PRO BNP, LEFT VENTRICULAR EJECTION FRACTION Remote Patient Monitoring: [facility] Scale: scale Oxygen Needs: NO supplemental oxygen needs identified DME Needs: NO DME needs identified Medications: Current DTP: Double dose of Torsemide for 2 days, started 04/22 in the afternoon Subjective: Condition Status: Improvement in symptoms but not at baseline Current Concerns: Called and spoke with patient , he states he "feels alright today". He will complete 2 day DTP this morning with Torsemide. Denies SOB or lower extremity swelling, but abdomen is a little bloated . No other complaints . Reminded to have blood work drawn on Thursday as ordered and to call [facility] with any change in condition. Disposition: [facility]ed [facility] for further advice Future Visits Scheduled: Future Appointments-next 60 days Date/Time Provider Specialty Dept Phone 04/24/2023 10:30 AM [facility] Cleaning Laborer [facility] [phone] 05/13/2023 1:40 PM [facility] Sp Pharmacist1 Pharmacy [phone] 05/13/2023 2:10 PM [facility] Sp Pharmacist1 Pharmacy [phone] 05/19/2023 12:30 PM Love Stevens RN [facility] [phone] 05/25/2023 9:00 AM Mery Calderon RDN [facility] [phone] 06/19/2023 1:30 PM (Arrive by 1:15 PM) Luisa Ching PA-C Nephrology [phone] 07/14/2023 9:30 AM [facility] Cardiology [facility] [phone] 07/22/2023 10:00 AM Nurse [facility] Ancillary [phone] 08/06/2023 10:00 AM (Arrive by 9:45 AM) REGGIE Dubon Cardiology [phone] 10/06/2023 2:10 PM (Arrive by 1:55 PM) Bárbara Rios DO Family Medicine [phone] 10/27/2023 8:30 AM (Arrive by 8:15 AM) REGGIE Olivera Sleep Disorders [phone] [place] Lizama fluid power mechanicAutomobile Mechanic Apprentice [facility] documented in this encounter Plan of Treatment Upcoming Encounters Date Type Specialty Care Team Description 05/13/2023 Telemedicine Pharmacy Pharmacist1, [facility] 200 [facility] [place] [address] 05/13/2023 Telemedicine Pharmacy Pharmacist1, [facility] 200 [facility] [place] [address] 05/19/2023 Home Visit [facility] Love Stevens, ANNE MARIE [address] [place] [address] 05/25/2023 Nutrition Services [facility] Mery Calderon, VIVIANAN [address] [facility] [place] [address] 06/19/2023 Office Visit Nephrology Luisa Ching PA-C [address] [place] [address] 07/14/2023 Telemedicine Cardiology [facility] Cardiology 400 [facility] [place] [address] 07/22/2023 Nurse Only Ancillary [place], Nurse [address] [place] [address] 08/06/2023 Office Visit Cardiology Evita Brennan CRNP [address] [place] [address] 10/06/2023 Office Visit Family Medicine Bárbara Rios DO [facility] [place] [address] 10/27/2023 Office Visit Sleep Disorders Lindsey Sheikh CRNP [address] [place] [address] Scheduled Procedures Name Priority Associated Diagnoses Date/Ti [...] this encounter Medical Devices Implanted Type Area Sleep Lab Technician Device Identifier Shelf Expiration Date Model / Serial / Lot Lens Intraoc 21.0 - [id number] - [id number] Implanted:Qty: 1 on 01/22/2017 by Cheko Mcnamara MD at OR [facility] Right: Eye BAUSCH & LOMB 08/05/2021 [id number] / [id number] / [id number] Lens Intraoc 21.5 - [id number] - [id number] Implanted:Qty: 1 on 02/03/2017 by Cheko Mcnamara MD at OR [facility] Left: Eye BAUSCH & LOMB 09/02/2021 [id number] / [id number] / [id number] documented as of this encounter Advance Directives [...] were consensually agreed upon. Care Teams Aircraft Machinist Relationship Specialty Start Date End Date Bárbara Rios, [address] [place] [address] PCP - General Internal Medicine 08/16/21 documented as of this encounter
--- OUTSIDE RECORDS SUMMARY | 2023-10-20 23:08 | External Medical Summary | Summary of Care ---
Author Name Unknown Organization [facility] Address [address] [facility] [place] [address] Phone [phone] Care Team Providers Care Health And Safety Director Name Role Phone Bárbara Rios Primary Care Provider Reason for Visit * Reason Comments Outpatient Testing Encounter Details Date Type Department Care Team (Late st Contact Info) Description 04/27/2023 1:50 PM EDT Laboratory Laboratory [address] [place] [phone] [place] [address] Hypertensive heart and kidney disease with chronic [...] UNITS WITH DINNER PLUS CORRECTION PER [facility] OR DIRECTED UP TO [...] a week. 9 mL 3 04/09/2023 Active Zerru-1-zgof Ethyl Esters 1 GM Oral Capsule (Lovaza) [...] has been better controlled recently. Monitor using [address] Cindy. Hypertensive heart and kidne y disease [...] yrs 01/04/2018,08/03/2017,07/03 Pneumococcal Conjugate Vacci ne, 20-valent ([id number]) 06/09/2022 Pneumococcal Polysaccharide PPV23 (Pneumovax) 03/06/2020 SEASONAL [...] 05/13/2023 1:40 PM EST Telemedicine Pharmacy, [facility] [address] [facility] [place] [address] Pharmacist1, [facility] [address] 05/13/2023 2:10 PM EST Telemedicine Pharmacy, [facility] [address] [facility] [place] [address] Pharmacist1, [facility] [address] [facility] [address] 05/19/2023 12:30 PM EST [facility], [facility] 132 [facility] [place] [address] Love Stevens, ANNE MARIE 132 [facility] [place] [address] 05/25/2023 9:00 AM EST Nutrition Services [facility], [facility] [address] [facility] [place] [address] Mery Calderon RDN [address] [facility] [place] [address] 06/19/2023 1:30 PM EST Office Visit Nephrology [address] [place] [address] Luisa Ching PA-C [address] [place] [address] 07/14/2023 9:30 AM EST Telemedicine Cardiology [place] Dio Cerulean [address] [facility] [place] [address] [facility] [address] [facility] [place] [address] 07/22/2023 10:00 AM EST Nurse Only Ancillary [address] [place] [address] [place], Nurse [address] [place] [address] 08/06/2023 10:00 AM EST Office Visit Cardiology, [facility] [address] [place] [address] Evita Brennan CRNP [address] [place] [address] 10/06/2023 2:10 PM EDT Office Visit Family Medicine [address] [place] [phone] Bárbara Rios [address] [place] [address] 10/27/2023 8:30 AM EDT Office Visit Sleep Disorders Ctr [facility] 132 [place] [phone] Lindsey Sheikh CRNP [address] [place] [address] Pending Results Name Type Priority Associated Diagnoses Date /Time BASIC METABOLIC PANEL Lab Routine 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) 04/27/2023 2:03 PM EDT Scheduled Procedures Name Priority Associated [...] this encounter Medical Devices Implanted Type Area Movie Editor Device Identifier Shelf Expiration Date Model / Serial / Lot Lens Intraoc 21.0 - [id number] - [id number] Implanted:Qty: 1 on 01/22/2017 by Cheko Mcnamara MD at OR [facility] Right: Eye [employer]USCH [employer] LOMB 08/05/2021 [id number] / [id number] / [id number] Lens Intraoc 21.5 - [id number] - [id number] Implanted:Qty: 1 on 02/03/2017 by Cheko Mcnamara MD at OR [facility] Left: Eye BAUSCH & LOMB 09/02/2021 [id number] / [id number] / [id number] documented as of this encounter Visit Diagnoses [...] and were consensually agreed upon. Care Teams Health And Safety Director Relationship Specialty Start Date End Date Bárbara Rios DO [address] [place] [address] [place] [phone] PCP - General Internal Medicine 08/16/21 documented as of this encounter
[2023-10-21] MEDS ORDERED: CARBOHYDRATES FOR HYPOGLYCEMIA PO PRN (00:52)
[2023-10-21] MEDS ORDERED: CLOTRIMAZOLE/BETAMETHASONE CR 15 GM TUBE EXT PRN (00:52)
[2023-10-21] MEDS ORDERED: ONDANSETRON INJ 2 MG/ML 2 ML VIAL IV PRN (00:52)
[2023-10-21] MEDS ORDERED: GLUCOSE 40% GEL 15 GM TUBE PO PRN (00:52)
[2023-10-21] MEDS ORDERED: PHARMACY GLYCEMIC MGMT CONSULT PRN (00:52)
[2023-10-21] MEDS ORDERED: DEXTROSE 50% 50 ML SYRINGE IV PRN (00:52)
[2023-10-21] MEDS ORDERED: POLYETHYLENE (MIRALAX) 17 GM PACK PO PRN (00:52)
[2023-10-21] MEDS ORDERED: GLUCAGON FOR INJ 1 MG VIAL SQ PRN (00:52)
[2023-10-21] MEDS ORDERED: GLUCOSE 10 TAB/TUBE PO PRN (00:52)
[2023-10-21] MEDS ORDERED: NITROGLYCERIN SL 0.4 MG/TAB TAB SL PRN (00:52)
[2023-10-21] MEDS ORDERED: ACETAMINOPHEN 325 MG TAB PO PRN (00:52)
[2023-10-21] MEDS: PANTOprazole 40 MG TAB PO SCH (02:10)
[2023-10-21] MEDS: carvediloL 25 MG TAB PO SCH (02:12)
[2023-10-21] MEDS: hydrALAZINE HCL 25 MG TAB PO SCH (02:12)
[2023-10-21] MEDS: INSULIN ASPART PER UNIT CHARGE SC SCH (02:31)
[2023-10-21] MEDS: LANTUS PER UNIT CHARGE SC SCH ×2 (02:31→21:12)
[2023-10-21] MEDS: SODIUM CHLORIDE 0.9% 1,000 ML IV SCH (02:34)
--- OUTSIDE RECORDS SUMMARY | 2023-10-21 04:12 | External Medical Summary | Summary of Care ---
Author Name Unknown Organization [facility] Address [address] [facility] [place] [address] Phone [phone] Care Team Providers Care Sales Closer Name Role Phone Bárbara Rios DO Primary Care Provider [phone] Reason for Visit * Reason Comments Re-Check Pt was told to hold lisnopril and torsemide as of this morning. Encounter Details Date Type Department Care Team (Latest Contact Info) Description 10/20/2023 11:10 AM EDT Office Visit Family Medicine [address] [place] [phone] Bárbara Rios DO [address] [place] [address] [place] [address] NEMESIO (acute kidney injury) ([facility])*; Type 2 diabetes mellitus with diabetic polyneuropathy, with long-term current use of insulin ([facility]); Type 2 diabetes mellitus with peripheral vascular disease ([facility]); Uncontrolled type 2 diabetes mellitus with hyperglycemia, with long-term current use of insulin ([facility]); Coronary artery calcification seen on CT scan Allergies Active Allergy Reactions Criticality Noted Date [...] DX: E11.9 300 Strip 3 09/23/2023 Active Ycjio-6-mybn Ethyl Esters 1 GM Oral Capsule (Lovaza) [...] If no improvement on day 3, contact [facility] for a possible home visit [...] performed? Mobile Problem Noted Date Diagnosed Date Uncontrolled type 2 diabetes mellitus with hyperglycemia, with long-term current use of insulin 10/20/2023 Type 2 diabetes mellitus wit h severe [...] failure with preserved ejection fr action 10/03/2022 Hypertensive heart and kidne y disease with [...] Remote Patient Monitoring Vendor: [facility] Device(s): Connected Scale Self [...] Problem Noted Date Diagnosed Date Resolved Date Sacroiliitis 09/02/2022 10/20/2023 Type 2 diabetes mellitus wit h stage [...] yrs 01/04/2018,08/03/2017,07/03 Pneumococcal Conjugate Vacci ne, 20-valent ([id number]) 06/09/2022 Pneumococcal Polysaccharide PPV23 (Pneumovax) 03/06/2020 Seasonal [...] Sign Reading Time Taken Comments Blood Pressure 124/58 10/20/2023 11:11 AM EDT Pulse 62 10/20/2023 11:11 AM EDT Temperature 36.1 C (96.9 F) 10/20/2023 1 1:11 AM EDT Respiratory Rate - - Oxygen Saturation 95% 10/20/2023 11: 11 AM EDT Inhaled Oxygen Concentration - - Weight 134.9 kg (297 lb 6.4 oz) 024 11:11 AM EDT Height - - Body Mass Index 40.33 09/03/2023 10:26 AM EST documented in this encounter Progress Notes * Bárbara Rios, DO - 10/20/2023 11:18 AM EDT Subjective: Tony Delong is a 63 year old male. Chief Complaint Patient presents with Re-Check Pt was told to hold lisnopril and torsemide as of this morning. HPI: Tony Delong presents today for routine follow up. He has had problems with his weights and has had increased torsemide, lasix, and was also given metolazone x 1 dose. Today he reports that he has not felt good since Thursday when he took the metolazone. He feels tired, weak, nauseaous, and short of breath. Doesn't feel like eating. His notes that his behavior is not normal for him and indicative that he doesn't feel well. PMH: Patient Active Problem List Diagnosis Code Type 2 diabetes mellitus with hemoglobin A1c goal of less than 8.0% ([facility]) E11.9 DDD (degenerative disc disease), cervical M50.30 [...] E11.42, Z79.4 Chronic kidney disease, stage 3b ([facility]) N18.32 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 disease ([facility]) I13.0, I50.32, N18.4 Sacroiliitis ([facility]) M46.1 Chronic heart failure with preserved ejection fraction ([facility]) I50.32 Chronic obstructive pulmonary disease ([facility]) J44.9 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 Take 1 tablet by mouth on twice a week on non-consecutive days, 30 minutes prior to torsemide. (Patient not taking: Reported on 08/12/2023)30 Tablet 0 BD Pen Needle Short U/F 31G X 8 MM (Insulin Pen Needle) USE TO INJECT INSULINS 5 TIMES DAILY 500 Each 3 Semaglutide (2 MG/DOSE) 8 MG/3ML Subcutaneous Solution Pen-injector (Ozempic) Inject 2 mg under theskin once a week. 9 mL 3 Carvedilol 25 MG Oral Tablet (Coreg) TAKE [...] skin every 14 days. 6 mL 3 hydrALAZINE HCl 25 MG Oral Tablet (Apresoline) Take 1 Tablet by mouth in the morning and 1 Tablet at noon and 1 Tablet before bedtime. 300 Tablet 3 Lisinopril 20 MG Oral Tablet (Prinivil) Take 1 Tablet by mouth in the morning. 100 Tablet 3 Clotrimazole-Betamethasone 1-0.05 % External Cream (Lotrisone) APPLY TOPICALLY TO AFFECTED AREA(S) TWO TIMES A DAY. 90 g 1 Potassium Chloride Gaviota ER 10 MEQ Oral Tablet Extended Release Take 1 Tablet by mouth in the morning and 1 Tablet before bedtime. 180 Tablet 3 OneTouch Verio In Vitro Strip (Glucose Blood) USE TO TEST BLOOD GLUCOSE 3 TIMES A DAY. DX: E11.9 300 Strip 3 Nfegd-4-pesu Ethyl Esters 1 GM Oral Capsule (Lovaza) Take 2 Capsules by mouth in the morning and 2 Capsules before bedtime. 360 Capsule 1 Torsemide 20 MG Oral Tablet (Demadex) Take 3 Tablets by mouth in the morning and 3 Tablets in the evening. 180 Tablet 3 DIURETIC TITRATION PLAN If no improvement on day 3, contact [facility] for a possible home visit 1 Each 0 Current Facility-Administered Medications Medication Dose Route Frequency Provider Last Rate Last Admin Albuterol Sulfate (Proventil) (5 MG/ML) 0.5% *conc* inhalation solution 2.5 mg 2.5 mg Nebulizer Khalif Espinosa MD Albuterol Sulfate (Proventil) (2.5 MG/3ML) 0.083% inhalation solution 2.5 mg 2.5 mg Nebulizer Khalif Browning Ramon, MD 2.5 mg at 12/18/22 8488 Review of patient's allergies indicates: Allergen Reactions Sglt2 Inhibitors Other (Please comment) Genital infection Sulfa Antibiotics Rash Other Allergy (See Comments) Rash 1+ cocamidopropyl betaine Objective: BP 124/58 | Pulse 62 | Temp 36.1 C (96.9 F) | Wt 134.9 kg (297 lb 6.4 oz) | SpO2 95% | BMI 40.33 kg/m | BSA 2.62 m General: alert, appears unwell. Neck: supple, no adenopathy Heart: regular rate & rhythm and (+) murmur Lungs: chest symmetric with normal AP diameter, no chest deformities noted, normal respiratory rateand rhythm, lungs clear to auscultation Abdomen: abdomen soft and non-tender Extremities: no joint deformities, effusion, or inflammation, no edema Neuro Exam: alert & oriented x 3 with fluent speech, no focal motor/sensory deficits, ambulateswith a cane, appears weak ASSESSMENT/PLAN: NEMESIO (acute kidney injury) (HCC) (Primary) - creatinine is up to 4.5 on labs yesterday and he fells weak, nauseous, etc. I recommend ER for IV fluids and recheck of renal function. He is agreeable. Renal function occurred in the context of increased diuresis. His symptoms seem suggestive of right heart failure. I am unsure if he has had right heart cath to evaluate for pulmonary HTN, but would likely benefit from this if it has not been done. Type 2 diabetes mellitus with diabetic polyneuropathy, with long-term current use of insulin (HCC) - DIABETES FOOT EXAM Type 2 diabetes mellitus with peripheral vascular disease (HCC) Uncontrolled type 2 diabetes mellitus with hyperglycemia, with long-term current use of insulin ([facility]) - will address at next visit. Coronary artery calcification seen on CT scan Check-out note: Follow up pending ER visit. Bárbara Rios DO I spent a total of 30-39 minutes (exact time 30 mins) on the date of service in preparation, delivery, and documentation of the care provided to Tony Delong excluding any time spent in the performance of separately billed services. * Viola Zhou LPN - 10/20/2023 11:12 AM EDT Socks and Shoes Removed for Annual Diabetic Foot Screening RIGHT FOOT: No Reddened, Cracking, Or Open Areas Noted. RIGHT Dorsalis Pedis Pulse: Unable to locate RIGHT Posterior Tibial Pulse: Unable to locate RIGHT Monofilament:Patient reports difficulty feeling monofilament at Great toe- plantar surface, Third toe-plantar surface, Ball of Foot-base of great toe, Ball of Foot-base of 3rd toe, and Ball of Foot-base of little toe LEFT FOOT: No Reddened, Cracking or Open Areas Noted. LEFT Dorsalis Pedis Pulse: Unable to locate LEFT Posterior Tibial Pulse: Unable to locate LEFT Monofilament:Patient reports difficulty feeling monofilament at Great toe- plantar surface, Third toe-plantar surface, Ball of Foot-base of great toe, Ball of Foot-base of 3rd toe, and Ball of Foot-base of little toe documented in this encounter Plan of Treatment Upcoming Encounters Date Type Department Care Team (Latest Contact Info) Description 10/21/2023 2:40 PM EDT Office Visit Nephrology [address] [place] [address] Shivani Magallon MD 200 [facility] [place] [address] 10/27/2023 8:30 AM EDT Office Visit Sleep Disorders Ctr [facility] [place] 132 [facility] [place] [phone] Lindsey Sheikh CRNP [address] [place] [address] 10/29/2023 11:30 AM EDT Scheduled Telephone [facility], [facility] [address] [facility] [place] [address] Mery Calderon, VIVIANAN [address] [facility] [address] 11/11/2023 11:00 AM EDT Telemedicine Pharmacy, [facility] 200 [facility] [place] [address] Pharmacist1, [facility] [place] [address] 11/11/2023 11:30 AM EDT Telemedicine Pharmacy, [facility] 200 [facility] [place] [address] Pharmacist1, [facility] [place] [address] 11/20/2023 2:30 PM EDT Home Visit [facility], [facility] [address] [place] [address] Love Stevens, RN [address] [place] [address] 12/31/2023 11:45 AM EDT Hospital Encounter ENDO OSSC, Endoscopy Room [facility] [address] [place] [phone] José Miguel Sifuentes MD [address] [place] [address] 12/31/2023 11:45 AM EDT - 12/31/2023 12:15 PM EDT Surgery ENDO O[facility]C, Endoscopy Room [facility] [address] [place] [phone] José Miguel Sifuentes MD [address] [place] [address] COLONOSCOPY FLEXIBLE PROXIMAL DIAGNOSTIC 01/14/2024 12:30 PM EDT Cardiac Studies Cardiac Studies [address] [place] [address] 08/08/2024 9:30 AM EST Nurse Only Ancillary [address] [place] [address] [place], Nurse Annual [address] [place] [address] Scheduled Procedures Name Priority Associated Diagnoses Date/Ti me COLONOSCOPY FLEXIBLE PROXIMA L DIAGNOSTIC Recall Special screening for malignant neoplasms, colon 12/31/2023 11:45 AM EDT ESOPHAGOGASTRODUODENOSCOPY ( EGD), FLEXIBLE, TRANSORAL, DIAGNOSTIC Recall Arreola's esophagus with dysplasia Health Maintenance Due Date Last Done Comments HIV Screening 1974 Alpha-1 Antitrypsin 1977 COLONOSCOPY-EVERY 5 YRS AGES 18-100 01/01/2023 01/01/2018, 01/01/2018 COVID-19 Vaccine ( season) 2023 12/10/2020, 11/12/2020 HbA1c 12/11/2023 06/11/2023, 03/07, 12/17/2022, Additional history exists GFR 04/19/2024 10/19/2023, 08/07, 08/24/2023, Additional history exists Albumin/Creatinine Ratio 06/11/2024 023, 09/22/2022, 09/02/2022, Additional history exists Diabetic Eye Exam 07/01/2024 07/01/2023, , 02/12/2023, Additional history exists Depression Screening 08/05/2024 08/05/2023 Diabetic Foot Exam 10/19/2024 10/20/2023, 0 09/02/2022, 08/16/2021, Additional history exists O2 ASSESSMENT COMPLETED IN PAST YEAR FOR COPD 10/19/2024 10/20/2023 Arreola's Esophagus Surveilance 06/16/2025 06/16/2022, 06/16/2022, 03/20/2022, [...] this encounter Medical Devices Implanted Type Area Road Machine Runner Device Identifier Shelf Expiration Date Model / Serial / Lot Lens Intraoc 21.0 - [id number] - [id number] Implanted:Qty: 1 on 01/22/2017 by Cheko Mcnamara MD at OR [facility] Right: Eye [employer] LOMB 08/05/2021 [id number] / [id number] / [id number] Lens Intraoc 21.5 - [id number] - [id number] Implanted:Qty: 1 on 02/03/2017 by Cheko Mcnamara MD at OR [facility] Left: Eye BAUSCH [employer] LOMB 09/02/2021 [id number] / [id number] / [id number] documented as of this encounter Visit Diagnoses Diagnosis NEMESIO (acute kidney injury) (HCC)- Primary Acute kidney failure, unspecified Type 2 diabetes mellitus with diabetic polyneuropathy, with long-term current use of insulin (HCC) Type 2 diabetes mellitus with peripheral vascular disease (HCC) Uncontrolled type 2 diabetes mellitus with hyperglycemia, with long-term current use of insulin (HCC) Coronary artery calcification seen on CT scan Special screening for malignant neoplasms, colon documented [...] and were consensually agreed upon. Care Teams Sales Closer Relationship Specialty Start Date End Date Bárbara Rios DO [address] [place] [address] [place] [address] PCP - General Internal Medicine 08/16/21 documented as of this encounter
--- OUTSIDE RECORDS SUMMARY | 2023-10-21 04:12 | External Medical Summary | Summary of Care ---
Author Name Unknown Organization [facility] Address [address] [facility] [place] [address] Phone [phone] Care Team Providers Care Manager Of Operations Name Role Phone Bárbara Rios Primary Care Provider [phone] Reason for Visit * Reason Onset Date Comments Follow Up 10/19/2023 Encounter Details Date Type Department Care Team (Late st Contact Info) Description 10/19/2023 Telephone [facility], [facility] [address] [place] [address] Love Stevens RN [address] [place] [address] Follow Up Allergies Active Allergy Reactions Criticality [...] Active Evolocumab 140 MG/ML Subcutaneous Solution Auto-injector (ProspectNow)Indicatio ns:Dyslipidemia, goal LDL below 100,Mixed dyslipidemia Inject [...] DX: E11.9 300 Strip 3 09/23/2023 Active Oboio-9-ydfl Ethyl Esters 1 GM Oral Capsule (Lovaza) [...] If no improvement on day 3, contact [facility] for a possible home visit 1 [...] in the Comments) Remote Patient Monitoring Vendor: [facility] Device(s): Connected Scale Self - Management Plan [...] Continues on lovaza 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 [place] History of tobacco use 08/18/2017 [place]O on [...] yrs 01/04/2018,08/03/2017,07/03 Pneumococcal Conjugate Vacci ne, 20-valent ([id number]) 06/09/2022 Pneumococcal Polysaccharide PPV23 (Pneumovax) 03/06/2020 Seasonal [...] encounter Miscellaneous Notes * Telephone Encounter - Bárbara Rios DO - 10/20/2023 1:03 PM EDT Pt seen and sent to ER. * Telephone Encounter - Leona Rogers CRNP - 10/20/2023 8:48 AM EDT TT communication with Dr. Magallon--patient was advised by [facility] to hold lisinopril for now. Per Dr. Verduzco, patient can hold diuretic for now and she will re-evaluate tomorrow. * Telephone Encounter - Love Stevens RN - 10/19/2023 4:27 PM EDT Images from the original note were not included. Dr. Rios and Dr. Magallon- FYI DTP initiated 10/10. (Torsemide 80mg BID x [...] his kidney function. Had patient go to [facility] to have lab work due to upcoming appointments with PCP tomorrow and Nephrology 10/20. Please see the weight trends below. documented in this encounter Plan of Treatment Upcoming Encounters Date Type Department Care Team (Latest Contact Info) Description 10/21/2023 2:40 PM EDT Office Visit Nephrology [place] [address] [place] [address] Shivani Magallon MD 200 [facility] [place] [address] 10/27/2023 8:30 AM EDT Office Visit Sleep Disorders Ctr [facility] [place] 132 [facility] [place] [phone] Lindsey Sheikh CRNP [address] [place] [address] 10/29/2023 11:30 AM EDT Scheduled Telephone [facility], [facility] [address] [facility] [place] [address] [place] Precious, RDN [address] [facility] [place] [address] 11/11/2023 11:00 AM EDT Telemedicine Pharmacy, [facility] 200 [place] [address] Pharmacist1, [facility] 200 [facility] [place] [address] 11/11/2023 11:30 AM EDT Telemedicine Pharmacy, [facility] [address] Pharmacist1, [facility] 200 [facility] [place] [address] 11/20/2023 2:30 PM EDT Home Visit [facility], [facility] [address] [place] [address] Love Stevens RN [address] [place] [address] 12/31/2023 11:45 AM EDT Hospital Encounter ENDO OSSC, Endoscopy Room [facility] [address] [place] [phone] José Miguel Sifuentes MD [address] [place] [address] 12/31/2023 11:45 AM EDT - 12/31/2023 12:15 PM EDT Surgery ENDO [facility], Endoscopy Room [facility] [address] [place] [phone] José Migeul Sifuentes MD [address] [place] [address] COLONOSCOPY FLEXIBLE PROXIMAL DIAGNOSTIC 01/14/2024 12:30 PM EDT Cardiac Studies Cardiac Studies [address] [place] [address] 08/08/2024 9:30 AM EST Nurse Only Ancillary [address] [place] [address] [place], Nurse Annual [address] [place] [address] Scheduled Procedures Name Priority Associated Diagnoses Date/Ti [...] this encounter Medical Devices Implanted Type Area Research Chief Engineer Device Identifier Shelf Expiration Date Model / Serial / Lot Lens Intraoc 21.0 - [id number] - [id number] Implanted:Qty: 1 on 01/22/2017 by Cheko Mcnamara MD at OR [facility] Right: Eye BAUSCH [employer] LOMB 08/05/2021 [id number] / [id number] / [id number] Lens Intraoc 21.5 - [id number] - [id number] Implanted:Qty: 1 on 02/03/2017 by Cheko Mcnamara MD at OR [facility] Left: Eye BAUSCH & LOMB 09/02/2021 [id number] / [id number] / [id number] documented as of this encounter Advance Directives [...] consensually agreed upon. Care Teams Manager Of Operations Relationship Specialty Start Date End Date Bárbara Rios DO [address] [place] [address] [place] [address] PCP - General Internal Medicine 08/16/21 documented as of this encounter
[2023-10-21 05:38] LABS: Calcium 8.6 mg/dl (8.6-10.3); Creatinine Clr Calc Pharmacy 25.7 ml/min; Est GFR (African American) 18.3 ml/min; Est GFR (Non-African American) 15.8 ml/min; Magnesium 2.9 mg/dl (1.7-2.4); Potassium 3.7 mmol/L (3.5-5.1)
[2023-10-21 05:55] LABS: Basophils % (auto) 1.7 %; Eosinophils # (auto) 0.25 K/uL (0.00-0.50); Eosinophils % (auto) 4.3 %; Hemoglobin 11.9 g/dl (14.0-18.0); Immature Granulocytes # (auto) 0.01 K/uL (0.01-0.20); Immature Granulocytes % (auto) 0.2 %; Lymphocytes % (auto) 39.1 %; Mean Corpuscular Hemoglobin 28.3 pg (25.0-34.0); Mean Corpuscular Volume 83.1 fL (80.0-100.0); Mean Platelet Volume 10.7 fL (9.4-12.4); Monocytes # (auto) 0.58 K/uL (0.11-0.59); Monocytes % (auto) 9.9 %; Neutrophils # (auto) 2.64 K/uL (1.40-6.50); Neutrophils % (auto) 44.8 %; Platelet Count 127 K/uL (130-400); RDW Coefficient of Variation 14.1 % (11.5-14.5); RDW Standard Deviation 42.7 fL (36.4-46.3); Red Blood Count 4.21 M/uL (4.70-6.10); White Blood Count 5.88 K/ul (4.8-10.8)
--- NOTE | 2023-10-21 07:42 | Cardiology Consultation ---
Date of Consultation October 21, 2023 Assessment & Plan (1) Acute kidney injury superimposed on chronic kidney disease: (2) Chronic diastolic heart failure: (3) RHF (right heart failure): Plan IMPRESSION: Medically complex 63-year-old male with known chronic kidney disease presents with NEMESIO after multiple DTPs/outpatient IV Lasix. Admitting creatinine was 4.5/4.2. Improving 3.79 this a.m. after holding of diuretics plus IV fluids. PLAN: NEMESIO on CKD: Home dose of Torsemide (60 mg BID) and Lisinopril (20 mg daily) on hold. Appreciate nephrology recommendations regarding volume/renal management -- Normally follows with Dr. Magallon as an outpatient. Chronic HFpEF/RHF: Volume status compensated/hypovolemic. Renal function improving with IVF. Known CHAPINCITO- encourage compliance with CPAP over night. Known moderate aortic sclerosis, systolic murmur auscultated on exam-- echo pending Hypertension: BP normally well controlled. As above Lisinopril on hold Continue Coreg and hydralazine as ordered. Case discussed with Dr. Hunter. Further recommendations pending assessment. I spent a total of 40 minutes on the date of service in preparation, delivery, and documentation of the care provided to the patient excluding any time spent in the performance of separately billed services. REGGIE Yates Department of Cardiology, [facility] This chart was completed in part utilizing Speech Voice Recognition Software. Grammatical errors, random word insertions, pronoun errors, and incomplete sentences are an occasional consequence of this system due to software limitations, ambient noise, and hardware issues. Any formal questions or concerns about the content, text, or information contained within the body of this dictation should be directly addressed to the provider for clarification. Supervising Physician Co-Signing Physician Notes Patient seen and personally examined. Full assessment and plan as outlined above by advanced provider. Care and management discussed and personally endorsed Appreciate nephrology input. 63-year-old male requiring high-dose diuretics for management of right heart failure symptoms, abdominal bloating and distention. Subsequent decline in renal function now slowly improving Cardiology will continue to follow History of Present Illness Reason for Consultation: CHF Requesting Physician: Aurelia Hospitalist Attending Physician: Ginger Mckenzie MD History of Present Illness Medically complex 63-year-old male with known HFpEF/RHF and CKD presented to [facility] ED with symptoms of generalized malaise. Found to have an acute kidney injury on top of CKD. As an outpatient approximately 1 week ago patient started to have symptoms of fluid retention with weight gain shortness of breath and abdominal bloating. DTP initiated 10/10. (Torsemide 80mg BID x 3 days.) Home visit 10/11- received IV Lasix 100mg. Home visit 10/13- received IV Lasix 160mg Lasix effective x 1 day then rebounded. Home visit 10/15- Metolazone 2.5mg x1- was started on DTP that afternoon through the weekend. Diuresed nicely but back up 2.6lbs the following day. Torsemide increased to 60mg BID routinely On 10/19 patient was evaluated by his PCP. Noted to be feeling poorly with symptoms of weakness fatigue and nauseousness. Shortness of breath also worsen ing. BMP showed an NEMESIO on CKD with a creatinine of 4.5. Baseline roughly 1.7-2.0. Patient was referred to the ED. In the ED: Torsemide and lisinopril held-received IVF (500 cc)- nephrology consulted. Scr 4.28>>3.79 this am. Echo pending Upon entrance into the room patient resting comfortably in bed. Notes that he is feeling more like himself after receiving Zofran and fluids. He denies any chest pain or shortness of breath. Has chronic orthopnea. No lower extremity edema. Abdomen is bloated however notes that it is back to his baseline. No palpitations or lightheadedness. Primary Process Architect: Dr. Herman Past medical history: 1.Chronic diastolic CHF with RHF. 2.Hypertensive heart disease a.History of elevated calcium on HCTZ 3.Hyperlipidemia-- on Repatha a.Mildly elevated LFTs 4.Obesity 5.Type 2 Diabetes 6.CHAPINCITO, on CPAP 7.CKD stage 3b-4 with history of proteinuria-- Follows with Dr. Magallon Allergies Allergy/AdvReac Type Severity Reaction Status Date / Time Sulfa (Sulfonamide AdvReac Intermediate Hives Verified 10/20/23 18:21 Antibiotics) Home Medications Medication Instructions Recorded Confirmed Type aspirin 81 mg tablet,delayed 81 mg PO QAM 12/12/20 10/20/23 History release (John Low Dose Aspirin) clotrimazole-betamethasone 1 1 applic topical QAM PRN AFFECTED 12/12/20 10/20/23 History %-0.05 % topical cream AREAS insulin aspart U-100 100 unit/mL 0 sliding scale dose subcut TID 12/12/20 10/20/23 History (3 mL) subcutaneous pen (Novolog per sliding scale FlexPen U-100 Insulin aspart) vitamin B complex 1 tab PO QAM 12/12/20 10/20/23 History acetaminophen 500 mg tablet 500 mg PO Q6H PRN Pain 01/28/21 10/20/23 History (Tylenol Extra Strength) carvedilol 25 mg tablet 25 mg PO BID #180 tabs 05/28/21 10/20/23 Rx evolocumab 140 mg/mL subcutaneous 140 mg subcut .COMPLEX 05/28/21 10/20/23 History pen injector (Elmo SureJeradick) hydralazine 25 mg tablet 25 mg PO TID 05/28/21 10/20/23 History insulin degludec 100 unit/mL (3 100 unit subcut BID 07/12/21 10/20/23 History mL) subcutaneous pen (Tresiba FlexTouch U-100 insulin) cholecalciferol (vitamin D3) 125 125 mcg PO DAILY 04/21/22 10/20/23 History mcg (5,000 unit) tablet (Vitamin D3) omeprazole magnesium 20 mg 20 mg PO BID 05/06/22 10/20/23 History capsule,delayed release (Acid Centrifugal Spinner (omeprazole)) coQ10 (ubiquinol) 200 mg capsule 200 mg PO DAILY 10/20/23 10/20/23 History lisinopril 20 mg tablet 20 mg PO DAILY 10/20/23 10/20/23 History torsemide 20 mg tablet 60 mg PO BID 10/20/23 10/20/23 History Patient History Medical History LVH (left ventricular hypertrophy) severe Arreola's esophagus Chronic diastolic heart failure EF 59%, Grade 2 diastolic dysfunction, follows with [facility] cardiology Hyperlipidemia Chronic kidney disease G2/A3, baseline Cr 1.2, follows with [facility] Hepatic steatosis CHAPINCITO on CPAP Degenerative disc disease Hypertension Type 2 diabetes mellitus IDDM Surgical History Hx of arthroscopy of left knee History of colonoscopy History of cataract surgery bilateral History of ankle surgery right Family History Other No pertinent family history Social History Smoking Status: Never smoker Second Hand Exposure: No; Do You Dip or Chew Tobacco: No; Hx Alcohol Use: No Hx Substance Use: No Preferred Language: Indian Communication Ability: Effective 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 Required: No Beliefs That Will Affect Care: None marital status: Current Living Situation: Spouse Feels Safe at Home: Yes Assistive Devices: Cane and CPAP Review of Systems Review of Systems: All systems reviewed & are unremarkable except as noted in HPI & below Physical Exam Constitutional: WD/WN, vitals as above + obese Eyes: PERRL, conjunctivae normal, anicteric sclerae Neck: normal visual inspection and trachea midline Respiratory: normal respiratory effort; no respiratory distress Auscult ation: + diminished lung sounds; no rales, no rhonchi and no wheezes Cardiovascular: RRR, no murmur, no edema Heart Sounds: + murmur (+2/6 systolic ) Vessels: no JVD Extremities: no edema Gastrointestinal (Abdomen): normal bowel sounds, soft, nontender, no hepatosplenomegaly Skin: no rashes, warm and dry Neurologic: PERRL, EOMI, accommodation nl, no face palsy, no dysarthria Psychiatric: A+Ox3, euthymic affect Results & Data Vital Signs (Past 12 Hours) Vital Signs Pulse Pulse Pulse Resp BP Pulse Ox Pulse Ox 10/21/23 07:06 56 L 10/21/23 06:38 133/65 10/21/23 05:49 60 13 137/60 96 10/21/23 03:32 94 10/21/23 02:12 58 L 16 137/60 96 10/21/23 00:16 58 L 10/20/23 23:29 63 19 148/72 H 97 10/20/23 23:07 60 19 137/75 95 10/20/23 22:00 64 19 10/20/23 21:00 61 20 94 10/20/23 20:00 62 22 95 O2 Del Method O2 Del Method 10/21/23 07:06 10/21/23 06:38 10/21/23 05:49 Room Air 10/21/23 03:32 BiPAP 10/21/23 02:12 Room Air 10/21/23 00:16 10/20/23 23:29 Room Air 10/20/23 23:07 10/20/23 22:00 10/20/23 21:00 10/20/23 20:00 Laboratory Results Cardiac Enzymes 10/20/23 10/20/23 10/20/23 Range/Units 16:00 18:14 19:04 AST 61 H (13-39) U/L Troponin I High Sens 26.5 H 26.6 H (0-20) pg/ml B-Natriuretic Peptide 48 (0-100) pg/ml Coagulation 10/20/23 Range/Units 19:04 B-Natriuretic Peptide 48 (0-100) pg/ml CBC 10/20/23 10/21/23 Range/Units 16:00 04:43 WBC 7.54 5.88 (4.8-10.8) K/ul RBC 4.43 L 4.21 L (4.70-6.10) M/uL Hgb 12.5 L 11.9 L (14.0-18.0) g/dl Hct 36.9 L 35.0 L (42.0-52.0) % Plt Count 146 127 L (130-400) K/uL Neut # (Auto) 4.39 2.64 (1.40-6.50) K/uL Lymph # (Auto) 2.03 2.30 (1.20-3.40) K/uL [place] # (Auto) 0.69 H 0.58 (0.11-0.59) K/uL Eos # (Auto) 0.26 0.25 (0.00-0.50) K/uL Baso # (Auto) 0.14 0.10 (0.00-0.20) K/uL Comprehensive Metabolic Panel 10/20/23 10/21/23 Range/Units 16:00 04:43 Sodium 135 L 137 (136-145) mmol/L Potassium 3.9 3.7 (3.5-5.1) mmol/L Chloride 99 102 (98-107) mmol/L Carbon Dioxide 23 25 (21-32) mmol/L BUN 90 H 91 H (6-23) mg/dl Creatinine 4.28 H 3.79 H D (0.6-1.4) mg/dl Glucose 206 H 103 H (70-99(Fasting)) mg/dl Calcium 9.0 8.6 (8.6-10.3) mg/dl AST 61 H (13-39) U/L ALT 60 H (7-52) U/L Alkaline Phosphatase 71 (34-104) U/L Total Protein 7.9 (6.0-8.3) gm/dl Albumin 4.0 (3.4-5.0) gm/dl Intake and Output 10/20/23 10/21/23 10/21/23 22:59 06:59 14:59 Other: Weight 114.5 kg Weight Measurement Method Built in [facility] Diagnostic Findings OUTPATIENT Echo 09/2022 Interpretation Summary The left ventricular endocardium is inadequately assessed. Consider a repeat examination using ultrasonic contrast. The qualitative LV ejection fraction is 55-59% (normal). The LV wall thickness is severely increased (concentric). The right ventricular cavity is mildly dilated. The right ventricular systolic function is normal as assessed by tricuspid annular plane systolic excursion (TAPSE) (normal >1.7 cm). The left ventricular diastolic function is moderately abnormal (grade II). Poorly visualized valvular anatomy. Moderate aortic valve sclerosis is present. Mild tricuspid regurgitation is present. There is no evidence of pulmonary hypertension. The aortic root and proximal ascending aorta are mildly enlarged. Compared to last available study changes are noted as follows: Mild aortic root enlargement visualized.
--- NOTE | 2023-10-21 08:19 | Hospitalist Progress Note ---
Date of Service October 21, 2023 Assessment & Plan (1) Acute kidney injury superimposed on chronic kidney disease: Plan Pt is a 63yoM with past medical history significant for type 2 diabetes, hyperlipidemia, diabetic retinopathy, peripheral vascular disease, polyneuropathy, obstructive sleep apnea on CPAP, COPD, CKD stage III/ IV, diastolic CHF, history of CAD, obesity, hepatic steatosis, Arreola's esophagus with high-grade dysplasia, degenerative disc disease, history of tobacco abuse presenting with generalized malaise and NEMESIO after taking increased doses of diuretics at home. NEMESIO on CKD stage III/IV Baseline creatinine around 2 On admission, creatinine of 4.28 currently downtrending to 3.79 Was getting higher dose of diuretics at home for increased weight gain On admission, held home torsemide and lisinopril and was started on gentle f luids for total of 500 ml Nephrology consulted, appreciate recs -d/c fluids today -continue to hold home diuretics and other nephrotoxic meds Continue to monitor Chronic diastolic CHF Holding diuretics as above Repeat echo pending Cardiology consulted, appreciate recs Elevated troponin Trop elevated but flat EKG sinus with RBBB and first degree block Doubt ACS Likely elevated in setting of demand or kidney failure noted above Cirrhosis Noted on CT abd/pelvis Given pt's abd tenderness and distention, dedicated ascites/US abdomen ordered Hypermagnesemia Mag elevated at 2.9 on admission Likely elevated in setting of renal failure noted above Currently improving Continue to monitor Anemia, Chronic Baseline approximately Hgb 12-13 Likely in setting of CKD Consider further workup with iron studies, b12, folate Continue to monitor with AM labs Thrombocytopenia Platelets slightly decreased at 127 Continue to monitor Hypertension On Coreg, hydralazine Holding lisinopril and torsemide Will monitor DMII Hgba1c of 7.6 Basal with ISS while hospitalized Glycemic consult Holding home meds, resume on discharge Obstructive sleep apnea CPAP nightly Hyperlipidemia On Repatha Obesity Encourage weight loss GERD Arreola's esophagus Continue ppi Diet: HH/DMII DVT prophylaxis: Heparin subcuq Dispo: PT/OT ordered Admission and Anticipated Discharge Date Admission Date: October 20, 2023 Subjective Pt was seen while still down in the ED. Noting abdominal pain. Otherwise denied acute concerns. Review of Systems Review of Systems: All systems reviewed & are unremarkable except as noted in Subjective Physical Exam Physical Exam: General: Alert, oriented. No acute distress Psych: Appropriate mood and affect Neuro: No gross deficits HEENT: NC/AT CV: RRR Resp: Breath sounds decreased bilaterally, no increased effort of breathing. Abdomen: tender, distended. Extremities: No edema in lower extremities bilaterally. Results & Data Results & Data Vital Signs (Past 12 Hours) Vital Signs Pulse Pulse Pulse Resp BP Pulse Ox Pulse Ox 10/21/23 07:06 56 L 10/21/23 06:38 133/65 10/21/23 05:49 60 13 137/60 96 10/21/23 03:32 94 10/21/23 02:12 58 L 16 137/60 96 10/21/23 00:16 58 L 10/20/23 23:29 63 19 148/72 H 97 10/20/23 23:07 60 19 137/75 95 10/20/23 22:00 64 19 10/20/23 21:00 61 20 94 O2 Del Method O2 Del Method 10/21/23 07:06 10/21/23 06:38 10/21/23 05:49 Room Air 10/21/23 03:32 BiPAP 10/21/23 02:12 Room Air 10/21/23 00:16 10/20/23 23:29 Room Air 10/20/23 23:07 10/20/23 22:00 10/20/23 21:00
[2023-10-21 08:41] LABS: Estimated Average Glucose 171 mg/dl; Hemoglobin A1C 7.6 % (4.5-5.6)
[2023-10-21] MEDS: VITAMIN B COMPLEX TAB PO SCH (09:56)
[2023-10-21] MEDS: ASPIRIN 81 MG ECTAB PO SCH (09:57)
[2023-10-21] MEDS: CHOLECALCIFEROL 125 MCG (5,000 UNITS) TAB PO SCH (09:57)
[2023-10-21] MEDS: HEPARIN SOD 5,000 UNIT/0.5 ML VIAL SQ SCH (09:58)
--- NOTE | 2023-10-21 10:34 | Pharmacy Report ---
Pharmacy Glycemic Short Note 2 - Date of Service October 21, 2023 - Glycemic Short BSG Results (Last 24 hours): 10/20/23 10/21/23 10/21/23 16:00 02:24 04:43 Glucose 206 H 103 H POC Glucose 115 H 10/21/23 08:06 Glucose POC Glucose 120 H OUTPATIENT ANTIDIABETIC REGIMEN: * Tresiba 100 units SC BID * Novolog 26 units SC w/ breakfast and lunch, 32 units SC w/ dinner HbA1c: 7.6% (10/21/23) ASSESSMENT: * DM is a 63 year old male who presented to ED on 10/20/23 w/ feeling of general unwellness x 1 week (shortness of breath, fatigue, etc.) * Found to have NEMESIO, SCr 4.28 mg/dL (baseline of ~2 mg/dL per H&P) * Patient with reportedly very high doses of insulin as an outpatient. However, past inpatient data suggests much lesser insulin requirements while hospitalized. * Pertinent PMH includes T2DM, NEMESIO/CKD, CHF, and obesity * Will use past inpatient glycemic data to guide initial dosing PLAN FOR INPATIENT GLYCEMIC CONTROL: * Basal insulin * Lantus 30 units SQ x 1 * Lantus 15 units SC BID * Bolus insulin * NovoLog per scale ACHS or Q6hrs while NPO * Goal Range: Low 110 mg/dL - High 140 mg/dL * Correction Factor: 20 mg/dL/unit * Nutritional / Prandial insulin per carb ratio of 1 unit per 7 grams CHO consumed
--- NOTE | 2023-10-21 10:37 | Electrocardiogram Report ---
Test Reason : Blood Pressure : / mmHG Vent. Rate : 067 BPM Atrial Rate : 067 BPM P-R Int : 252 ms QRS Dur : 138 ms QT Int : 422 ms P-R-T Axes : 027 -25 028 degrees QTc Int : 445 ms Sinus rhythm with 1st degree A-V block Right bundle branch block Abnormal ECG Confirmed by Satinder Galvez ([id number]) on 10/21/2023 10:37:07 AM Referred By: Bárbara Rios Confirmed By:Quoc Galvez
--- NOTE | 2023-10-21 11:00 | Nephrology Consultation ---
Date of Consultation October 21, 2023 Assessment & Plan (1) Acute kidney injury superimposed on chronic kidney disease: At this point will have to assume NEMESIO is from Volume Depletion/Diuresis. vary fluctuating creat last 1 year. Somewhere close to 2 is his baseline for now. Creat is trending in right direction down from 4.5 to 3.7 today in 2 day span. Urine was very bland again consistent with volume Depletion. CT abdomen done and is negative for [place]/ will Stop iv fluid later today but hold diuretics and let renal function stabilize. he has no edema and normally retains fluid only in is belly area. But with central obesity it does become hard to assess fluid status. But CXR reported as pulm congestion Also dont give ARIANNA/ARB/Contrast agents/nephrotoxic Abx for now. Daily labs and I and O. History of Present Illness Attending Physician: Ginger Mckenzie MD History of Present Illness 63-year-old male with past medical history significant for type 2 diabetes, hyperlipidemia, diabetic retinopathy, peripheral vascular disease, polyneuropathy, obstructive sleep apnea on CPAP, COPD, CKD stage III/ IV, diastolic CHF, history of CAD, obesity, hepatic steatosis, Arreola's esophagus with high-grade dysplasia came to hospital because of not feeling well and NEMESIO. Creat was 4.5 on 10/19/2023 as outpt. prior to that had creat of 1.8 but on review very fluctuating creatinine and multiple episodes of acute kidney injury in the last 1 year. patient states his weight has been rising and he was taking higher doses of torsemide. Generally takes torsemide 40 mg in the mor ben and 40 mg at night. Since about a week his dose was increased initially to 80 mg twice daily then 60 mg twice daily. He also took 1 dose of metolazone last Thursday. He also took 3 days of IV Lasix at home as per . Since he took metolazone is not feeling well. His weight has decreased. But he has some abdominal discomfort. Having poor appetite. Feeling nauseous. Some shortness of breath on exertion. While resting no sob. Denies any chest pain. No cough. Feeling nauseous. No fevers. No headache. No runny nose or sore throat. Appetite is down. Today didn't Micturate much. Normal bowel movements. Denies bloody or black stools. No fevers. Since being admitted he did receive some gentle hydration and diuretics have been held. CT abdomen did not show any hydronephrosis. Creatinine has gone down from 4.5 two days ago to 3.7 earlier today. Making urine. ROS--see HPI. 12 systems reviewed and is otherwise negative Physical Exam Physical Exam: General- Not in distress. Head- atraumatic Eyes- PERRL. ENT- oropharynx clear Neck- supple, no JVD Lungs- clear to auscultation no wheezing or crackles. Heart- regular rate and rhythm; no murmur, no gallop. Abdomen- normal bowel sounds, soft, mild diffuse discomfort no distension Extremities- no pretibial edema, no erythema seen Neuro- alert, oriented PERRL, no facial palsy; no dysarthria; moves extremities. Allergies Allergy/AdvReac Type Severity Reaction Status Date / Time Sulfa (Sulfonamide AdvReac Intermediate Hives Verified 10/20/23 18:21 Antibiotics) Home Medications Medication Instructions Recorded Confirmed Type aspirin 81 mg tablet,delayed 81 mg PO QAM 12/12/20 10/20/23 History release (John Low Dose Aspirin) clotrimazole-betamethasone 1 1 applic topical QAM PRN AFFECTED 12/12/20 10/20/23 History %-0.05 % topical cream AREAS insulin aspart U-100 100 unit/mL 0 sliding scale dose subcut TID 12/12/20 10/20/23 History (3 mL) subcutaneous pen (Novolog per sliding scale FlexPen U-100 Insulin aspart) vitamin B complex 1 tab PO QAM 12/12/20 10/20/23 History acetaminophen 500 mg tablet 500 mg PO Q6H PRN Pain 01/28/21 10/20/23 History (Tylenol Extra Strength) carvedilol 25 mg tablet 25 mg PO BID #180 tabs 05/28/21 10/20/23 Rx evolocumab 140 mg/mL subcutaneous 140 mg subcut .COMPLEX 05/28/21 10/20/23 History pen injector (Elmo Shine) hydralazine 25 mg tablet 25 mg PO TID 05/28/21 10/20/23 History insulin degludec 100 unit/mL (3 100 unit subcut BID 07/12/21 10/20/23 History mL) subcutaneous pen (Tresiba FlexTouch U-100 insulin) cholecalciferol (vitamin D3) 125 125 mcg PO DAILY 04/21/22 10/20/23 History mcg (5,000 unit) tablet (Vitamin D3) omeprazole magnesium 20 mg 20 mg PO BID 05/06/22 10/20/23 History capsule,delayed release (Acid Er Tech (omeprazole)) coQ10 (ubiquinol) 200 mg capsule 200 mg PO DAILY 10/20/23 10/20/23 History lisinopril 20 mg tablet 20 mg PO DAILY 10/20/23 10/20/23 History torsemide 20 mg tablet 60 mg PO BID 10/20/23 10/20/23 History Patient History Medical History LVH (left ventricular hypertrophy) severe Arreola's esophagus Chronic diastolic heart failure EF 59%, Grade 2 diastolic dysfunction, follows with [facility] Hyperlipidemia Chronic kidney disease G2/A3, baseline Cr 1.2, follows with [facility] Hepatic steatosis CHAPINCITO on CPAP Degenerative disc disease Hypertension Type 2 diabetes mellitus IDDM Surgical History Hx of arthroscopy of left knee History of colonoscopy History of cataract surgery bilateral History of ankle surgery right Family History Other No pertinent family history Social History Smoking Status: Never smoker Second Hand Exposure: No; Do You Dip or Chew Tobacco: No; Hx Alcohol Use: No Hx Substance Use: No Preferred Language: Jamaican Communication Ability: Effective Medical Unit Secretary Required: No Beliefs That Will Affect Care: None marital status: Current Living Situation: Spouse Feels Safe at Home: Yes Assistive Devices: Cane, CPAP, Glasses and Stair Lift Results & Data Vital Signs (Past 12 Hours) Vital Signs Pulse Pulse Pulse Resp BP Pulse Ox Pulse Ox 10/21/23 10:04 59 L 20 147/73 H 96 10/21/23 07:06 56 L 10/21/23 06:38 133/65 10/21/23 05:49 60 13 137/60 96 10/21/23 03:32 94 10/21/23 02:12 58 L 16 137/60 96 10/21/23 00:16 58 L 10/20/23 23:29 63 19 148/72 H 97 10/20/23 23:07 60 19 137/75 95 O2 Del Method O2 Del Method 10/21/23 10:04 Room Air 10/21/23 07:06 10/21/23 06:38 10/21/23 05:49 Room Air 10/21/23 03:32 BiPAP 10/21/23 02:12 Room Air 10/21/23 00:16 10/20/23 23:29 Room Air 10/20/23 23:07 Laboratory Results reviewed Diagnostic Findings CXR and CT reviewed.
--- NOTE | 2023-10-21 17:06 | Ultrasound Report ---
US abdomen ltd ascites CLINICAL HISTORY: cirrhosis noted on ct/abd pelvis, abdominal pain and distention. COMPARISON STUDY: CT of the abdomen and pelvis October 20, 2023. TECHNIQUE: Sonography of the abdomen and pelvis was performed to evaluate for ascites. FINDINGS: No ascites is identified within the abdomen or pelvis. The liver is cirrhotic. Please note that a dedicated liver ultrasound was not performed. IMPRESSION: No ascites. ACT 112: Negative or not required by law. Electronically signed by: Jared Cruz M.D. 10/21/2023 5:04 PM
[2023-10-22 04:10] LABS: Basophils # (auto) 0.08 K/uL (0.00-0.20); Basophils % (auto) 1.6 %; Eosinophils # (auto) 0.27 K/uL (0.00-0.50); Eosinophils % (auto) 5.3 %; Hematocrit (blood only) 35.6 % (42.0-52.0); Hemoglobin 11.9 g/dl (14.0-18.0); Immature Granulocytes # (auto) 0.01 K/uL (0.01-0.20); Immature Granulocytes % (auto) 0.2 %; Lymphocytes # (auto) 2.05 K/uL (1.20-3.40); Mean Corpuscular Hemoglobin 28.3 pg (25.0-34.0); Mean Corpuscular Hgb Conc 33.4 g/dL (32.0-36.0); Mean Corpuscular Volume 84.6 fL (80.0-100.0); Mean Platelet Volume 10.9 fL (9.4-12.4); Monocytes # (auto) 0.51 K/uL (0.11-0.59); Monocytes % (auto) 9.9 %; Neutrophils # (auto) 2.21 K/uL (1.40-6.50); Platelet Count 113 K/uL (130-400); RDW Coefficient of Variation 13.8 % (11.5-14.5); RDW Standard Deviation 42.8 fL (36.4-46.3); Red Blood Count 4.21 M/uL (4.70-6.10); White Blood Count 5.13 K/ul (4.8-10.8)
[2023-10-22 04:17] LABS: Albumin Level 3.8 gm/dl (3.4-5.0); BUN Creatinine Ratio 24.7 (10-20); Bilirubin,Total 0.9 mg/dl (0.2-1.0); Calcium 8.8 mg/dl (8.6-10.3); Creatinine Clr Calc Pharmacy 35.5 ml/min; Est GFR (Non-African American) 23.3 ml/min; Globulin 3.8 gm/dl (2.5-4.0); Magnesium 2.8 mg/dl (1.7-2.4); Phosphorus 3.7 mg/dl (2.5-4.9); Potassium 3.7 mmol/L (3.5-5.1); Total Protein 7.6 gm/dl (6.0-8.3)
--- NOTE | 2023-10-22 07:40 | Cardiology Progress Note ---
Date of Service October 22, 2023 Assessment & Plan (1) Acute kidney injury superimposed on chronic kidney disease: (2) Chronic diastolic heart failure: (3) RHF (right heart failure): Plan IMPRESSION: Medically complex 63-year-old male with known chronic kidney disease presents with NEMESIO after multiple DTPs/outpatient IV Lasix. Admitting creatinine was 4.5/4.2. Improving 2.8 this am after holding of diuretics plus IV fluids. PLAN: NEMESIO on CKD: Home dose of Torsemide (60 mg BID) and Lisinopril (20 mg daily) on hold. Appreciate nephrology recommendations regarding volume/renal management -- Normally follows with Dr. Magallon as an outpatient. Patient's renal function has been improving, however, not quite at baseline-- consider starting Torsemide tomorrow at reduced dose of 40 mg daily with weekly BMPs as an outpatient and close follow up with nephrology and cardiology. Okay for discharge from a cardiology standpoint, will await nephrology's recommendations. Chronic HFpEF/RHF: Volume status compensated. Renal function improving. Known CHAPINCITO- encourage compliance with CPAP over night. Known moderate aortic sclerosis, systolic murmur auscultated on exam. Hypertension: BP normally well controlled. As above Lisinopril on hold Continue Coreg and hydralazine as ordered. Case discussed with Dr. Hunter. Will follow. I spent a total of 40 minutes on the date of service in preparation, delivery, and documentation of the care provided to the patient excluding any time spent in the performance of separately billed services. REGGIE Yates Department of Cardiology, [facility] This chart was completed in part utilizing Speech Voice Recognition Software. Grammatical errors, random word insertions, pronoun errors, and incomplete sentences are an occasional consequence of this system due to software limitations, ambient noise, and hardware issues. Any formal questions or concerns about the content, text, or information contained within the body of this dictation should be directly addressed to the provider for clarification. Admission and Anticipated Discharge Date Admission Date: October 20, 2023 Supervising Physician Co-Signing Physician Notes Patient seen and examined, chart, medications, telemetry reviewed. Full assessment and plan as outlined by advanced provider above. Care and management reflect my personal endorsement Acute renal insufficiency improving. Multifactorial etiology but predominantly significant diuretic usage due to signs and symptoms of chronic right heart failure/volume overload Currently stable for discharge. No further Would resume diuretic cautiously in a.m. with torsemide 40 mg/day. May require cautious upward titration CHF instructions Daily weights Weekly BMP until stability is sure I spent a total of 20 minutes on the date of service in preparation, delivery, and documentation of the care provided to the patient excluding any time spent in the performance of separately billed services. Subjective Medically complex 63-year-old male requiring high-dose diuretics for management of right heart failure symptoms, abdominal bloating and distention in the outpatient setting. Subsequent decline in renal function prompting ED presentation. Nephrology consulted. Renal function improving with IVF and holding of diuretics (4.5/4.2>>3.79) 10/22/2023: I/O: +406 mL Weight: 114.5 kg Labs: Scr 4.2>>3.8>>2.75. Potassium 3.7. Mag 2.8. Sodium 135. Upon entrance into the room patient sitting in the chair feeling well. Feeling back to baseline. chest pain, shortness of breath, palpitations, dizziness, syncope or near syncope. No orthopnea, PND, or increased lower extremity edema. No fever, chills, cough, hematochezia, melena, or hemoptysis. Eager for discharge. Review of Systems Review of Systems: All systems reviewed & are unremarkable except as noted in HPI & below Physical Exam Constitutional: WD/WN, vitals as above + obese Eyes: PERRL, conjunctivae normal, anicteric sclerae Neck: normal visual inspection and trachea midline Respiratory: normal respiratory effort; no respiratory distress Auscultation: + diminished lung sounds; no rales, no rhonchi and no wheezes Cardiovascular: RRR, no murmur, no edema Heart Sounds: + murmur (+2/6 systolic ) Vessels: no JVD Extremities: no edema Gastrointestinal (Abdomen): normal bowel sounds, soft, nontender, no hepatosplenomegaly Skin: no rashes, warm and dry Neurologic: PERRL, EOMI, accommodation nl, no face palsy, no dysarthria Psychiatric: A+Ox3, euthymic affect Results & Data Vital Signs (Past 12 Hours) Vital Signs Pulse Pulse Pulse Resp BP Pulse Ox Pulse Ox 10/22/23 07:14 56 L 10/22/23 03:00 96 10/22/23 00:38 58 L 58 L 18 150/74 H 96 10/21/23 23:06 59 L 10/21/23 22:49 57 L 20 133/70 94 O2 Del Method O2 Del Method 10/22/23 07:14 10/22/23 03:00 Room Air 10/22/23 00:38 CPAP 10/21/23 23:06 10/21/23 22:49 Room Air Laboratory Results Cardiac Enzymes 10/22/23 Range/Units 03:13 AST 56 H (13-39) U/L CBC 10/22/23 Range/Units 03:13 WBC 5.13 (4.8-10.8) K/ul RBC 4.21 L (4.70-6.10) M/uL Hgb 11.9 L (14.0-18.0) g/dl Hct 35.6 L (42.0-52.0) % Plt Count 113 L (130-400) K/uL Neut # (Auto) 2.21 (1.40-6.50) K/uL Lymph # (Auto) 2.05 (1.20-3.40) K/uL [place] # (Auto) 0.51 (0.11-0.59) K/uL Eos # (Auto) 0.27 (0.00-0.50) K/uL Baso # (Auto) 0.08 (0.00-0.20) K/uL Comprehensive Metabolic Panel 10/22/23 Range/Units 03:13 Sodium 135 L (136-145) mmol/L Potassium 3.7 (3.5-5.1) mmol/L Chloride 104 (98-107) mmol/L Carbon Dioxide 23 (21-32) mmol/L BUN 68 H D (6-23) mg/dl Creatinine 2.75 H D (0.6-1.4) mg/dl Glucose 133 H (70-99(Fasting)) mg/dl Calcium 8.8 (8.6-10.3) mg/dl AST 56 H (13-39) U/L ALT 54 H (7-52) U/L Alkaline Phosphatase 61 (34-104) U/L Total Protein 7.6 (6.0-8.3) gm/dl Albumin 3.8 (3.4-5.0) gm/dl Intake and Output 0410/22/23 10/22/23 22:59 06:59 14:59 Intake Total . Balance Intake: Oral Other: # Unmeasured Voids 1 Weight 114.5 kg Weight Measurement Method Built in [facility]
--- NOTE | 2023-10-22 10:04 | Hospitalist Progress Note ---
Date of Service October 22, 2023 Assessment & Plan (1) Acute kidney injury superimposed on chronic kidney disease: Plan Pt is a 63yoM with past medical history significant for type 2 diabetes, hyperlipidemia, diabetic retinopathy, peripheral vascular disease, polyneuropathy, obstructive sleep apnea on CPAP, COPD, CKD stage III/ IV, diastolic CHF, history of CAD, obesity, hepatic steatosis, Arreola's esophagus with high-grade dysplasia, degenerative disc disease, history of tobacco abuse presenting with generalized malaise and NEMESIO after taking increased doses of diuretics at home. NEMESIO on CKD stage III/IV Baseline creatinine around 2 On admission, creatinine of 4.28 currently downtrending to 3.79 Was getting higher dose of diuretics at home for increased weight gain On admission, held home torsemide and lisinopril and was started on gentle f luids for total of 500 ml Nephrology consulted, appreciate recs -d/c fluids today -continue to hold home diuretics and other nephrotoxic meds Continue to monitor 10/21- discussed with Nephrology Dr Vyas, agreeable to resume torsemide at 40mg in AM per cardiology recs .Ordered. Chronic diastolic CHF Holding diuretics as above Consider repeat echo Cardiology consulted, appreciate recs 10/21- discussed with Nephrology Dr Vyas, agreeable to resume torsemide at 40mg in AM per cardiology recs . Ordered. Elevated troponin Trop elevated but flat EKG sinus with RBBB and first degree block Doubt ACS Likely elevated in setting of demand or kidney failure noted above Cirrhosis Noted on CT abd/pelvis Given pt's abd tenderness and distention, dedicated ascites/US abdomen ordered- noted no ascites Hypermagnesemia Mag elevated at 2.9 on admission Likely elevated in setting of renal failure noted above Currently improving Continue to monitor Anemia, Chronic Baseline approximately Hgb 12-13 Likely in setting of CKD Consider further workup with iron studies, b12, folate Continue to monitor with AM labs Thrombocytopenia Platelets slightly decreased at 127 Continue to monitor Hypertension On Coreg, hydralazine Holding lisinopril and torsemide Will monitor DMII Hgba1c of 7.6 Basal with ISS while hospitalized Glycemic consult Holding home meds, resume on discharge Obstructive sleep apnea CPAP nightly Hyperlipidemia On Repatha Obesity Encourage weight loss GERD Arreola's esophagus Continue ppi Diet: HH/DMII DVT prophylaxis: Heparin subcuq Dispo: PT/OT ordered Admission and Anticipated Discharge Date Admission Date: October 20, 2023 Subjective Pt was seen multiple times. Initially down in the ED. Stated he was anxious to go home, waiting on specialist eval. Later after further discussion with respective specilaists discussion of him staying an additional night and need to resume diuretics tomorrow. Pt agreeable. Review of Systems Review of Systems: All systems reviewed & are unremarkable except as noted in Subjective Physical Exam Physical Exam: General: Alert, oriented. No acute distress Psych: Appropriate mood and affect Neuro: No gross deficits HEENT: NC/AT CV: RRR Resp: Breath sounds decreased bilaterally, no increased effort of breathing. Abdomen: tender, distended. Extremities: No edema in lower extremities bilaterally. Results & Data Results & Data Vital Signs (Past 12 Hours) Vital Signs Pulse Pulse Pulse Resp BP Pulse Ox Pulse Ox 10/22/23 08:19 95 10/22/23 07:14 56 L 10/22/23 03:00 96 10/22/23 00:38 58 L 58 L 18 150/74 H 96 10/21/23 23:06 59 L 10/21/23 22:49 57 L 20 133/70 94 O2 Del Method O2 Del Method 10/22/23 08:19 Room Air 10/22/23 07:14 10/22/23 03:00 Room Air 10/22/23 00:38 CPAP 10/21/23 23:06 10/21/23 22:49 Room Air
--- NOTE | 2023-10-22 14:12 | Pharmacy Report ---
Pharmacy Glycemic Short Note 2 - Date of Service October 22, 2023 - Glycemic Short BSG Results (Last 24 hours): 10/21/23 10/22/23 10/22/23 19:06 03:13 08:07 Glucose 133 H POC Glucose 118 H 140 H 10/22/23 13:06 Glucose POC Glucose 194 H OUTPATIENT ANTIDIABETIC REGIMEN: * Tresiba 100 units SC BID * Novolog 26 units SC w/ breakfast and lunch, 32 units SC w/ dinner HbA1c: 7.6% (10/21/23) ASSESSMENT: 10/22/23: * Tony received 55 units of SC insulin yesterday * 45 units of basal + 10 units of bolus * BSGs: 120, 117, 118 mg/dL * Of note, patient refusing some BSG checks and short acting insulin * Fasting BSG is near goal, 133 mg/dL. If fasting continues to trend upward, will increase basal to 15-20 units BID tomorrow. * Lunch BSG is slightly above goal, however patient refused insulin with b reakfast. No change to CF and CR for now. 10/21/23: * DM is a 63 year old male who presented to ED on 10/20/23 w/ feeling of general unwellness x 1 week (shortness of breath, fatigue, etc.) * Found to have NEMESIO, SCr 4.28 mg/dL (baseline of ~2 mg/dL per H&P) * Patient with reportedly very high doses of insulin as an outpatient. However, past inpatient data suggests much lesser insulin requirements while hospitalized. * Pertinent PMH includes T2DM, NEMESIO/CKD, CHF, and obesity * Will use past inpatient glycemic data to guide initial dosing PLAN FOR INPATIENT GLYCEMIC CONTROL: * Basal insulin * Lantus 15 units SC BID * Bolus insulin * NovoLog per scale ACHS or Q6hrs while NPO * Goal Range: Low 110 mg/dL - High 140 mg/dL * Correction Factor: 20 mg/dL/unit * Nutritional / Prandial insulin per carb ratio of 1 unit per 7 grams CHO consumed
[2023-10-23 07:01] LABS: Basophils # (auto) 0.08 K/uL (0.00-0.20); Basophils % (auto) 1.6 %; Eosinophils # (auto) 0.28 K/uL (0.00-0.50); Eosinophils % (auto) 5.5 %; Hematocrit (blood only) 35.8 % (42.0-52.0); Immature Granulocytes # (auto) 0.01 K/uL (0.01-0.20); Immature Granulocytes % (auto) 0.2 %; Lymphocytes # (auto) 1.81 K/uL (1.20-3.40); Lymphocytes % (auto) 35.4 %; Mean Corpuscular Hemoglobin 28.3 pg (25.0-34.0); Mean Corpuscular Hgb Conc 33.5 g/dL (32.0-36.0); Mean Corpuscular Volume 84.4 fL (80.0-100.0); Monocytes # (auto) 0.53 K/uL (0.11-0.59); Monocytes % (auto) 10.4 %; Neutrophils # (auto) 2.41 K/uL (1.40-6.50); Neutrophils % (auto) 46.9 %; Platelet Count 114 K/uL (130-400); RDW Coefficient of Variation 13.7 % (11.5-14.5); Red Blood Count 4.24 M/uL (4.70-6.10); White Blood Count 5.12 K/ul (4.8-10.8)
[2023-10-23 07:24] LABS: Albumin Level 3.8 gm/dl (3.4-5.0); BUN Creatinine Ratio 20.7 (10-20); Bilirubin,Total 1.1 mg/dl (0.2-1.0); Calcium 9.1 mg/dl (8.6-10.3); Creatinine Clr Calc Pharmacy 45.2 ml/min; Est GFR (African American) 33.2 ml/min; Est GFR (Non-African American) 28.6 ml/min; Globulin 3.7 gm/dl (2.5-4.0); Magnesium 2.6 mg/dl (1.7-2.4); Phosphorus 3.3 mg/dl (2.5-4.9); Potassium 3.9 mmol/L (3.5-5.1); Total Protein 7.5 gm/dl (6.0-8.3)
[2023-10-23] MEDS: LANTUS PER UNIT CHARGE SC SCH (08:24)
[2023-10-23] MEDS: TORSEMIDE 20 MG TAB PO SCH (08:26)
--- NOTE | 2023-10-23 09:49 | Nephrology Progress Note ---
Date of Service October 23, 2023 Assessment & Plan Admission and Anticipated Discharge Date Admission Date: October 20, 2023 Subjective Assessment & Plan (1) Acute kidney injury superimposed on chronic kidney disease: At this point will have to assume NEMESIO is from Volume Depletion/Diuresis. vary fluctuating creat last 1 year. Somewhere close to 2 is his baseline for now. Creat is trending in right direction down from 4.5 to 3.7 today in 2 day span. Urine was very bland again consistent with volume Depletion. CT abdomen done and is negative for Lykens/ will Stop iv fluid later today but hold diuretics and let renal function stabilize. he has no edema and normally retains fluid only in is belly area. But with central obesity it does become hard to assess fluid status. But CXR reported as pulm congestion torsemide 40 daily to continue. Stable for discharge from renal Standpoint. Creat getting close to baseline now. S--feels better now. No edema and no SOB. Labs better Physical Exam Physical Exam: General- Not in distress. Head- atraumatic Eyes- PERRL. ENT- oropharynx clear Neck- supple, no JVD Lungs- clear to auscultation no wheezing or crackles. Heart- regular rate and rhythm; no murmur, no gallop. Abdomen- normal bowel sounds, soft, mild diffuse discomfort no distension Extremities- no pretibial edema, no erythema seen Neuro- alert, oriented PERRL, no facial palsy; no dysarthria; moves extremities. Results & Data Vital Signs (Past 12 Hours) Vital Signs Temp Pulse Resp BP Pulse Ox O2 Del Method 10/23/23 07:43 36.4 C L 57 L 20 132/73 97 Room Air 10/23/23 03:25 36.5 C 57 L 18 135/76 98 CPAP 10/22/23 22:53 37.0 C 59 L 20 151/79 H 96 CPAP
--- NOTE | 2023-10-23 12:39 | Pharmacy Report ---
Pharmacy Glycemic Short Note 2 - Date of Service October 23, 2023 - Glycemic Short BSG Results (Last 24 hours): 10/22/23 10/22/23 10/22/23 13:06 16:25 20:13 Glucose POC Glucose 194 H 140 H 138 H 10/23/23 10/23/23 10/23/23 06:16 07:41 11:24 Glucose 99 POC Glucose 118 H 142 H OUTPATIENT ANTIDIABETIC REGIMEN: * Tresiba 100 units SC BID * Novolog 26 units SC w/ breakfast and lunch, 32 units SC w/ dinner HbA1c: 7.6% (10/21/23) ASSESSMENT: 10/23/23: * Tony received 49 units of SC insulin yesterday with adequate glycemic control * 30 units of basal + 19 units of bolus * BSGs: 140, 194, 140, 138 mg/dL * Scr slowly improving * Fasting BSG trending down. Will slightly decrease basal insulin. * Post prandial BSGs are near goal. Will continue current CF and CR. 10/22/23: * Tony received 55 units of SC insulin yesterday * 45 units of basal + 10 units of bolus * BSGs: 120, 117, 118 mg/dL * Of note, patient refusing some BSG checks and short acting insulin * Fasting BSG is near goal, 133 mg/dL. If fasting continues to trend upward, will increase basal to 15-20 units BID tomorrow. * Lunch BSG is slightly above goal, however patient refused insulin with breakfast. No change to CF and CR for now. 10/21/23: * DM is a 63 year old male who presented to ED on 10/20/23 w/ feeling of general unwellness x 1 week (shortness of breath, fatigue, etc.) * Found to have NEMESIO, SCr 4.28 mg/dL (baseline of ~2 mg/dL per H&P) * Patient with reportedly very high doses of insulin as an outpatient. However, past inpatient data suggests much lesser insulin requirements while hospitalized. * Pertinent PMH includes T2DM, NEMESIO/CKD, CHF, and obesity * Will use past inpatient glycemic data to guide initial dosing PLAN FOR INPATIENT GLYCEMIC CONTROL: * Basal insulin * Lantus 13 units SC BID * Bolus insulin * NovoLog per scale ACHS or Q6hrs while NPO * Goal Range: Low 110 mg/dL - High 140 mg/dL * Correction Factor: 20 mg/dL/unit * Nutritional / Prandial insulin per carb ratio of 1 unit per 7 grams CHO consumed
--- NOTE | 2023-10-23 13:37 | Discharge Summary ---
Discharge Summary Date of Service October 23, 2023 Notes For Next Care Provider Please repeat BMP in 3 days to ensure renal function stability after resuming diuretics Please ensure close Nephrology followup Please ensure close Cardiology follow up Consider further workup of patient's noted anemia and thrombocytopenia Medication Changes From Visit Torsemide 40mg DAILY per nephrology and cardiology Discontinue lisinopril in setting of acute on chronic kidney disease Admission HPI Per Admitting Provider 63-year-old male with past medical history significant for type 2 diabetes, hyperlipidemia, diabetic retinopathy, peripheral vascular disease, polyneuropathy, obstructive sleep apnea on CPAP, COPD, CKD stage III/ IV, diastolic CHF, history of CAD, obesity, hepatic steatosis, Arreola's esophagus with high-grade dysplasia, degenerative disc disease, history of tobacco abuse comes because of not feeling well and NEMESIO. Patient states his weight has been fluctuating lately and he was taking higher doses of torsemide. Generally takes torsemide 40 mg in the morning and 40 mg at night. Since about a week his dose was increased initially to 80 mg twice daily then 60 mg twice daily. He also took 1 dose of metolazone last Thursday. He also took 3 days of IV Lasix at home as per patient. Since he took metolazone is not feeling well. His weight has decreased. But he has some abdominal discomfort. Having poor appetite. Feeling nauseous. Some shortness of breath on exertion. Went to see PCP today. Outpatient labs done yesterday showed creatinine of 4.5 and advised to come to the hospital. Currently resting comfortably and hemodynamically stable. While resting no sob. Denies any chest pain. No cough. Feeling nauseous. No fevers. No headache. No runny nose or sore throat. Appetite is down. Today didn't Micturate much. Normal bowel movements. Denies bloody or black stools. No fevers. Past medical history. As mentioned above Past surgical history. Right knee arthroscopy. Colonoscopy and EGD. EGD with endoscopic ultrasound. Lumbosacral epidural. Bilateral cataract surgeries. S acroiliac joint injection. Left quad repair. Social history. . Smoked 2 packs a day for 13 years. Quit smoking 1987. Not drinking alcohol currently. No drug use. Family history. Son has celiac disease. Mother has kidney issues and stroke and glaucoma. Admission Exam Per Admitting Provider General- Not in distress. Head- atraumatic Eyes- PERRL. ENT- oropharynx clear Neck- supple, no JVD Lungs- clear to auscultation no wheezing or crackles. Heart- regular rate and rhythm; no murmur, no gallop. Abdomen- normal bowel sounds, soft, mild diffuse discomfort no distension Extremities- no pretibial edema, no erythema seen Neuro- alert, oriented PERRL, no facial palsy; no dysarthria; moves extrem ities. Principal Dx & Hospital Course #1 = Principal Diagnosis (1) Acute kidney injury superimposed on chronic kidney disease: Plan Pt is a 63yoM with past medical history significant for type 2 diabetes, hyperlipidemia, diabetic retinopathy, peripheral vascular disease, polyneuropathy, obstructive sleep apnea on CPAP, COPD, CKD stage III/ IV, diastolic CHF, history of CAD, obesity, hepatic steatosis, Arreola's esophagus with high-grade dysplasia, degenerative disc disease, history of tobacco abuse presenting with generalized malaise and NEMESIO in setting of CKD after taking increased doses of diuretics at home. NEMESIO on CKD stage III/IV Baseline creatinine around 2 On admission, creatinine of 4.28 currently downtrending to 3.79 Was getting higher dose of diuretics at home for increased weight gain On admission, held home torsemide and lisinopril and was started on gentle fluids Nephrology consulted, appreciate recs -discontinued fluids -continued to hold home diuretics and other nephrotoxic meds -diuretics resumed on 10/22 at dose of torsemide 40mg daily only Please repeat BMP in 3 days to ensure renal function stability after resuming diuretics Please ensure close Nephrology followup Chronic diastolic CHF Held diuretics as above Cardiology consulted, appreciate recs -diuretics per Nephrology, torsemide 40mg daily Cardiology followup after discharge Elevated troponin Trop elevated but flat EKG sinus with RBBB and first degree block Doubt ACS Likely elevated in setting of demand and kidney failure noted above Cirrhosis Noted on CT abd/pelvis Given pt's abd tenderness and distention, dedicated ascites/US abdomen ordered- noted no ascites PCP followup Hypermagnesemia Mag elevated at 2.9 on admission Likely elevated in setting of renal failure noted above Improved, 2.6 on discharge PCP followup for continued monitoring Anemia, Chronic Baseline approximately Hgb 12-13 Likely in setting of CKD Consider further workup with iron studies, b12, folate PCP followup Thrombocytopenia Platelets slightly decreased at 127 on admission, down to 114 on discharge PCP followup for outpt workup Hypertension On Coreg, hydralazine, continue Held lisinopril in setting of kideny failure, continue to hold on discharge Resumed torsemide at 40mg daily BP controlled PCP followup DMII Hgba1c of 7.6 Basal with ISS while hospitalized Resume home meds on discharge with close pcp followup for optimal control Obstructive sleep apnea CPAP nightly Hyperlipidemia On Repatha Obesity Encourage weight loss GERD Arreola's esophagus Continue ppi Discharge Exam General: Alert, oriented. No acute distress Psych: Appropriate mood and affect Neuro: No gross deficits HEENT: NC/AT CV: RRR Resp: Breath sounds decreased bilaterally, no increased effort of breathing. Abdomen: nontender, protuberant Extremities: No edema in lower extremities bilaterally. Updated Medication List Medication Instructions Recorded Confirmed Type aspirin 81 mg tablet,delayed 81 mg PO QAM 12/12/20 10/20/23 History release (John Low Dose Aspirin) clotrimazole-betamethasone 1 1 applic topical QAM PRN AFFECTED 12/12/20 10/20/23 History %-0.05 % topical cream AREAS insulin aspart U-100 100 unit/mL 0 sliding scale dose subcut TID 12/12/20 10/20/23 History (3 mL) subcutaneous pen (Novolog per sliding scale FlexPen U-100 Insulin aspart) vitamin B complex 1 tab PO QAM 12/12/20 10/20/23 History acetaminophen 500 mg tablet 500 mg PO Q6H PRN Pain 01/28/21 10/20/23 History (Tylenol Extra Strength) carvedilol 25 mg tablet 25 mg PO BID #180 tabs 05/28/21 10/20/23 Rx evolocumab 140 mg/mL subcutaneous 140 mg subcut .COMPLEX 05/28/21 10/20/23 History pen injector (Repatha SureClick) hydralazine 25 mg tablet 25 mg PO TID 05/28/21 10/20/23 History insulin degludec 100 unit/mL (3 100 unit subcut BID 07/12/21 10/20/23 History mL) subcutaneous pen (Tresiba FlexTouch U-100 insulin) cholecalciferol (vitamin D3) 125 125 mcg PO DAILY 04/21/22 10/20/23 History mcg (5,000 unit) tablet (Vitamin D3) omeprazole magnesium 20 mg 20 mg PO BID 05/06/22 10/20/23 History capsule,delayed release (Acid Financial Planning Advisor (omeprazole)) coQ10 (ubiquinol) 200 mg capsule 200 mg PO DAILY 10/20/23 10/20/23 History lisinopril 20 mg tablet 20 mg PO DAILY 10/20/23 10/20/23 History torsemide 20 mg tablet 60 mg PO BID 10/20/23 10/20/23 History torsemide 20 mg tablet 40 mg (2 x 20 mg) PO QAM #60 tabs 10/23/23 Rx Hospital Stay Data Consultations 10/20/23 18:28 ED Decision to Admit Stat 10/21/23 08:00 Consult Cardiology Routine Consult Nephrology Routine Diagnostic Imagining Performed 10/20/23 18:27 CT Abd and Pelvis [CT abd pelvis wo con] Stat 10/21/23 15:54 US abdomen ltd ascites Urgent Chest X-Ray 10/20/23 16:51 SINGLE VIEW CHEST CLINICAL HISTORY: Dyspnea FINDINGS: 2 AP, portable, upright chest radiographs are compared to study dated 04/21/2022. The heart is enlarged. There is mild pulmonary vascular congestion. Atelectasis is seen at the lung bases. No airspace consolidation or large pleural effusion is identified. No pneumothorax is seen. The skeletal structures are osteopenic. The bony thorax is grossly intact. IMPRESSION: Cardiomegaly with mild pulmonary vascular congestion. ACT 112: Negative or not required by law. Electronically signed by: Chilango Rivas M.D. 10/20/2023 5:35 PM Abdomen/Pelvis CT 10/20/23 18:27 Exam(s): CT ABDOMEN + PELVIS Without Contrast EXAM: CT Abdomen and Pelvis Without Intravenous Contrast CLINICAL HISTORY: Reason for exam: NEMESIO on CKD. TECHNIQUE: Axial computed tomography images of the abdomen and pelvis without intravenous contrast. CTDI is 28.14 mGy and DLP is 1499.82 mGy-cm. Automated exposure control was utilized for the study. A dose lowering technique was utilized adhering to the principles of ALARA. COMPARISON: No relevant prior studies available. FINDINGS: Lung bases: Unremarkable. No mass. No consolidation. ABDOMEN: Liver: Hepatic cirrhosis. Gallbladder and bile ducts: Cholelithiasis. No ductal dilation. Pancreas: Unremarkable. No ductal dilation. Spleen: Unremarkable. No splenomegaly. Adrenals: Unremarkable. No mass. Kidneys and ureters: Unremarkable. No hydronephrosis or nephrolithiasis. Stomach and bowel: Diverticulosis, without acute diverticulitis. No bowel obstruction. No free air. PELVIS: Appendix: No findings to suggest acute appendicitis. Bladder: Unremarkable. No stones. Reproductive: Unremarkable as visualized. ABDOMEN and PELVIS: Intraperitoneal space: See above. Bones/joints: Degenerative changes of the spine. No acute fracture. No dislocation. Soft tissues: Small fat-containing bilateral where hernias. Vasculature: Atherosclerotic changes of the aorta. No abdominal aortic aneurysm. Lymph nodes: Unremarkable. No enlarged lymph nodes. IMPRESSION: 1. No hydronephrosis or nephrolithiasis. 2. Cholelithiasis. 3. Hepatic cirrhosis. 4. Diverticulosis, without acute diverticulitis. No bowel obstruction. No free air. Electronically signed by: Parish Jeter MD 10/20/23 20:08 PM Abdomen Ultrasound 10/21/23 15:54 US abdomen ltd ascites CLINICAL HISTORY: cirrhosis noted on ct/abd pelvis, abdominal pain and distention. COMPARISON STUDY: CT of the abdomen and pelvis October 20, 2023. TECHNIQUE: Sonography of the abdomen and pelvis was performed to evaluate for ascites. FINDINGS: No ascites is identified within the abdomen or pelvis. The liver is c irrhotic. Please note that a dedicated liver ultrasound was not performed. IMPRESSION: No ascites. ACT 112: Negative or not required by law. Electronically signed by: Jared Cruz M.D. 10/21/2023 5:04 PM Discharge Instructions Given to Patient (Per Discharging Provider) Mr. Delong, You were seen by both the sql data architect and drug counselor for your heart failure symptoms and your kidney disease. They held your diuretics while you were here to help with your kidney function which improved. Nephrology and cardiology recommended restarting the home torsemide today which we did. Please take Torsemide 40mg DAILY. It is very important that you keep close followup with your primary care prov ider over the next few days to ensure your renal function remains stable. Please also keep close followup with Nephrology as scheduled. Please also keep close follow up with Cardiology. Please do not hesitate to come back to the emergency room if your symptoms worsen or return. It was a pleasure taking care of you while you were here. Total Time Total Time Spent Total Time Spent (In Minutes): > 30 minutes
== END 2023-10-23 15:10 | disposition home or self-care (01) | DRG 683 ==
LOC: ED 14:55 → EDINP 20:18 → 2S 10-21 00:52

== ENCOUNTER 2024-08-25 17:41 | Observation (INO) ==
--- NOTE | 2024-08-25 18:18 | Emergency Department Note ---
Impression & Plan NEMESIO (acute kidney injury), Acute hyponatremia, Transaminitis ED Provider Note NAME: YADY TAYLOR AGE: 64 SEX: M : 1960 ARRIVES VIA: Walk-In INFORMANT: Patient ED PROVIDER(S): Errol Patterson DO CHIEF COMPLAINT: Renal failure HPI: Patient is a 64-year-old male who presents to the ER with a past medical history of CHF, right heart failure, NEMESIO, diabetes and hypertension for renal failure. He notes that for the past 3 days he has been a little nauseated. He has no belly pain. Admits to a mild headache. No change in vision. No chest pain or shortness of breath. No dysuria, urgency, or frequency. He has not been eating or drinking much. Friend who is present at bedside provides additional history that nausea and vomiting did occur on Thursday but has not resolved. ADDITIONAL HISTORY OBTAINED: Per HPI Chronic Medical/Social Conditions Affecting Care: Per HPI PAST MEDICAL HISTORY:See Below PAST SURGICAL HISTORY:See Below FAMILY HISTORY:See Below SOCIAL HISTORY:See Below HOME MEDICATIONS:See Below ALLERGIES:See Below VITALS:See Below PHYSICAL EXAMINATION: GENERAL: Sitting up in bed, alert, well appearing, well nourished, no distress, non-toxic EYE EXAM: normal conjunctiva. PERRL and EOM's grossly intact. OROPHARYNX: no exudate, no erythema, lips, buccal mucosa, and tongue normal and mucous membranes are moist NECK: supple, no nuchal rigidity, no adenopathy, non-tender LUNGS: Clear to auscultation. Normal chest wall mechanics HEART: no murmurs, S1 normal and S2 normal ABDOMEN: abdomen soft, non-tender, normo-active bowel sounds, no masses, no rebound or guarding. UPPER EXTREMITIES: upper extremities are grossly normal. LOWER EXTREMITIES: No pitting edema. NEURO EXAM: Normal sensorium, cranial nerves II-XII grossly intact, normal speech, no gross weakness of arms, no gross weakness of legs. MEDICAL DECISION MAKING: Patient is a 64-year-old male who presents ER for the below stated complaint. IV was established and blood work was obtained. Labs showed no significant leukocytosis or anemia. BMP with an NEMESIO and a creatinine 3.2 up from a baseline of 2.3. LFTs with mild transaminitis. T. bili at 1.1. Lipase at 109. UA was clean. Viral panel was negative. Chest x-ray was unremarkable. Patient was given IV fluids. Patient was updated at bedside. I discussed the case with the hospitalist on-call for further evaluation management and treatment. Consults/Care Managements Discussions: Per MDM Triage Nursing notes reviewed. Limited review of prior medical records performed Vital Signs: reviewed and remarkable for HTN Differential diagnosis: Infection, dehydration, metabolic abnormality, hypo/hyperglycemia, electrolyte disturbance, anemia, hypoxia, cardiac sources, intracerebral event, toxicologic, neurologic, as well as other pathologies. ER treatment provided: See below Diagnostics interpreted by me include EKG and cardiac monitoring as listed below: -Cardiac Monitoring: An order was placed for continuous cardiac monitoring. The monitor shows a rate of 60 with sinus rhythm. -ECG: none -Laboratory studies:Interpreted by me as stated above in MDM and shown below. Imaging studies: Xrays: As interpreted by me: Portable AP upright 1 view of the chest shows no focal infiltrate CTs show: none Procedures:none Critical Care: None Past Med/Surg History Problem List (Updated 08/25/24 @ 22:52 by Errol Patterson DO) Transaminitis (Acute) Acute hyponatremia (Acute) NEMESIO (acute kidney injury) (Acute) CKD stage 4 due to type 2 diabetes mellitus RHF (right heart failure) Chronic diastolic heart failure EF 59%, Grade 2 diastolic dysfunction, follows with [facility] cardiology Non-ST elevation SD (NSTEMI) (Acute) Acute kidney injury superimposed on chronic kidney disease (Acute) Shortness of breath (Acute) Abdominal pain (Acute) Vitamin D deficiency NEMESIO (acute kidney injury) Acute on chronic diastolic CHF (congestive heart failure) Congestive heart failure (Acute) Esophageal polyp Chronic kidney disease G2/A3, baseline Cr 1.2, follows with [facility] Encounter for pre-operative examination Mixed dyslipidemia History of tobacco use Uncontrolled type 2 diabetes mellitus with hyperglycemia Heart failure, diastolic, due to HTN Proteinuria Hepatic steatosis [place] on CPAP Degenerative disc disease Type 2 diabetes mellitus IDDM Hypertension Medical History LVH (left ventricular hypertrophy) severe Arreola's esophagus Hyperlipidemia Surgical History Hx of arthroscopy of left knee History of colonoscopy History of cataract surgery bilateral History of ankle surgery right Family History Other No pertinent family history Social History Smoking Status: Never smoker Second Hand Exposure: No; Do You Dip or Chew Tobacco: No; Hx Alcohol Use: No Hx Substance Use: No Preferred Language: Cameroonian Communication Ability: Effective Basic Acoustic Analyst Required: No Beliefs That Will Affect Care: None marital status: Current Living Situation: Spouse Feels Safe at Home: Yes Assistive Devices: Cane and CPAP Allergies Allergies Allergy/AdvReac Type Severity Reaction Status Date / Time Sulfa (Sulfonamide AdvReac Intermediate Hives Verified 08/25/24 20:23 Antibiotics) Home Meds Home Medications Medication Instructions Recorded Confirmed aspirin 81 mg tablet,delayed 81 mg PO QAM 12/12/20 08/25/24 release (John Low Dose Aspirin) clotrimazole-betamethasone 1 1 applic topical QAM PRN AFFECTED 12/12/20 08/25/24 %-0.05 % topical cream AREAS insulin aspart U-100 100 unit/mL 0 sliding scale dose subcut TID 12/12/20 08/25/24 (3 mL) subcutaneous pen (Novolog per sliding scale FlexPen U-100 Insulin aspart) vitamin B complex 1 tab PO QAM 12/12/20 08/25/24 acetaminophen 500 mg tablet 500 mg PO Q6H PRN Pain 01/28/21 08/25/24 (Tylenol Extra Strength) evolocumab 140 mg/mL subcutaneous 140 mg subcut .COMPLEX 05/28/21 08/25/24 pen injector (Repatha SureClick) insulin degludec 100 unit/mL (3 116 unit subcut BID 07/12/21 08/25/24 mL) subcutaneous pen (Tresiba FlexTouch U-100 insulin) cholecalciferol (vitamin D3) 125 125 mcg PO DAILY 04/21/22 08/25/24 mcg (5,000 unit) tablet (Vitamin D3) omeprazole magnesium 20 mg 20 mg PO BID 05/06/22 08/25/24 capsule,delayed release (Acid Supervisor Engine Assembly (omeprazole)) coQ10 (ubiquinol) 200 mg capsule 200 mg PO DAILY 10/20/23 08/25/24 metolazone 2.5 mg tablet 2.5 mg PO DAILY PRN Weight Gain 08/25/24 08/25/24 potassium chloride 20 mEq 40 meq PO BID 08/25/24 08/25/24 tablet,extended release(part/cryst) pravastatin 20 mg tablet 20 mg PO DAILY 08/25/24 08/25/24 spironolactone 25 mg tablet 25 mg PO DAILY 08/25/24 08/25/24 torsemide 20 mg tablet 80 mg PO QAM 08/25/24 08/25/24 Previous Rx's Medication Instructions Recorded carvedilol 25 mg tablet 25 mg PO BID #180 tabs 05/28/21 Results & Data (ED) Vital Signs Vital Signs - 24 hr 08/25/24 17:42 08/25/24 18:47 Temperature 36.9 C Temperature Source Temporal Artery Scan Pulse Rate 63 Pulse Rate [Finger] 60 Respiratory Rate 19 18 Respiratory Effort / Characteristics Non-Labored Spontaneous Respiratory Depth Normal Blood Pressure 158/82 H Blood Pressure [Left Arm] 120/65 Blood Pressure Mean 107 Blood Pressure Mean [Left Arm] 83 Blood Pressure Position [Left Arm] Semi-fowlers Pulse Oximetry 98 97 Oxygen Delivery Method Room Air Room Air Sepsis Recent Fever Within 48 Hours No Sepsis New/Unexplained Change in Mental Status N/A Sepsis Action Taken by Nursing No Action Required Laboratory Data 08/25/24 17:49 08/25/24 17:49 Lab Results 08/25/24 Range/Units 17:49 WBC 6.71 (4.8-10.8) K/ul RBC 4.41 L (4.70-6.10) M/uL Hgb 12.5 L (14.0-18.0) g/dl Hct 36.9 L (42.0-52.0) % MCV 83.7 (80.0-100.0) fL MCH 28.3 (25.0-34.0) pg MCHC 33.9 (32.0-36.0) g/dL RDW Std Deviation 54.3 H (36.4-46.3) fL RDW Coeff of Javi 18.0 H (11.5-14.5) % Plt Count 151 (130-400) K/uL MPV 11.0 (9.4-12.4) fL Immature Gran % (Auto) 0.4 % Neut % (Auto) 55.9 % Lymph % (Auto) 27.3 % Whitfield % (Auto) 8.8 % Eos % (Auto) 7.0 % Baso % (Auto) 0.6 % Neut # (Auto) 3.75 (1.40-6.50) K/uL Lymph # (Auto) 1.83 (1.20-3.40) K/uL Whitfield # (Auto) 0.59 (0.11-0.59) K/uL Eos # (Auto) 0.47 (0.00-0.50) K/uL Baso # (Auto) 0.04 (0.00-0.20) K/uL Immature Gran # (Auto) 0.03 (0.01-0.20) K/uL Sodium 134 L (136-145) mmol/L Potassium 3.7 (3.5-5.1) mmol/L Chloride 97 L (98-107) mmol/L Carbon Dioxide 27 (21-32) mmol/L Anion Gap 10 (3-11) BUN 68 H (6-23) mg/dl Creatinine 3.21 H (0.6-1.4) mg/dl Est Cr Clr Drug Dosing 27.3 ml/min eGFR 20.61 BUN/Creatinine Ratio 21.2 H (10-20) Glucose 158 H (70-99(Fasting)) mg/dl Calcium 9.8 (8.6-10.3) mg/dl Magnesium 2.5 H (1.7-2.4) mg/dl Total Bilirubin 1.1 H (0.2-1.0) mg/dl AST 95 H (13-39) U/L ALT 87 H (7-52) U/L Alkaline Phosphatase 102 (34-104) U/L Total Protein 8.4 H (6.0-8.3) gm/dl Albumin 4.4 (3.4-5.0) gm/dl Globulin 4.0 (2.5-4.0) gm/dl Albumin/Globulin Ratio 1.1 (0.9-2) Lipase 109 H (11-82) U/L Administered Medications Discontinued Medications Carvedilol (Carvedilol 3.125 Mg Tab) 3.125 mg PO NOW ONE Stop: 08/25/24 21:13 Last Admin: 08/25/24 22:05 Dose: 3.125 mg Documented By: JAVIER Sodium Chloride (Nss) 1,000 mls @ 999 mls/hr IV .Q1H1M ONE Stop: 08/25/24 19:18 Last Infusion: 08/25/24 19:52 Dose: Infused Documented By: Admin: 08/25/24 18:43 Dose: 999 mls/hr Documented By: CEF Albumin Human (Albumin 25%) 25 gm in 100 mls @ 50 mls/hr IV ONE ONE Stop: 08/25/24 22:05 Last Admin: 08/25/24 21:33 Dose: 50 mls/hr Documented By: JAVIER Imaging Data Radiologist's Impression: Chest X-Ray 08/25/24 19:32 EXAM: Portable AP chest radiograph TECHNIQUE: AP portable radiograph of the chest was obtained. INDICATION: Shortness of breath Comparison: Chest radiograph October 20, 2023 FINDINGS: LINES and TUBES: None CARDIOVASCULAR: Cardiac silhouette is stably enlarged in size. LUNGS/PLEURA: Mild pulmonary vascular congestion. No focal consolidation identified. No significant pleural fluid. No discernible pneumothorax. OSSEOUS/OTHER: No displaced acute osseous process identified. IMPRESSION: Mild congestive changes of the cardiovascular system which appears similar to previous radiograph from October 20, 2023. Electronically signed by Aly Sadler 08-25-2024 8:05 PM Discharge Plan Visit Data Chief Complaint: Flank Pain Stated Complaint: KIDNEY FAILURE ED Provider: Errol Patterson Discharge Problem: NEMESIO (acute kidney injury), Acute hyponatremia, Transaminitis Patient Disposition: Admitted As Inpatient Discharge Instructions Interventions: ED Discharge Assessment Last Done: 08/25/24 22:09
[2024-08-25 18:36] LABS: Basophils # (auto) 0.04 K/uL (0.00-0.20); Basophils % (auto) 0.6 %; Eosinophils # (auto) 0.47 K/uL (0.00-0.50); Hematocrit (blood only) 36.9 % (42.0-52.0); Hemoglobin 12.5 g/dl (14.0-18.0); Immature Granulocytes # (auto) 0.03 K/uL (0.01-0.20); Immature Granulocytes % (auto) 0.4 %; Lymphocytes # (auto) 1.83 K/uL (1.20-3.40); Lymphocytes % (auto) 27.3 %; Mean Corpuscular Hemoglobin 28.3 pg (25.0-34.0); Mean Corpuscular Hgb Conc 33.9 g/dL (32.0-36.0); Mean Corpuscular Volume 83.7 fL (80.0-100.0); Monocytes # (auto) 0.59 K/uL (0.11-0.59); Monocytes % (auto) 8.8 %; Neutrophils # (auto) 3.75 K/uL (1.40-6.50); Neutrophils % (auto) 55.9 %; Platelet Count 151 K/uL (130-400); RDW Standard Deviation 54.3 fL (36.4-46.3); Red Blood Count 4.41 M/uL (4.70-6.10); White Blood Count 6.71 K/ul (4.8-10.8)
[2024-08-25] MEDS: SODIUM CHLORIDE 0.9% 1,000 ML IV ONE (18:43)
[2024-08-25 18:48] LABS: Albumin Globulin Ratio 1.1 (0.9-2); Albumin Level 4.4 gm/dl (3.4-5.0); BUN Creatinine Ratio 21.2 (10-20); Bilirubin,Total 1.1 mg/dl (0.2-1.0); Calcium 9.8 mg/dl (8.6-10.3); Creatinine Clr Calc Pharmacy 27.3 ml/min; Potassium 3.7 mmol/L (3.5-5.1); Total Protein 8.4 gm/dl (6.0-8.3)
[2024-08-25 19:52] LABS: Magnesium 2.5 mg/dl (1.7-2.4)
--- NOTE | 2024-08-25 19:54 | History & Physical Report ---
Date of Service August 25, 2024 Assessment & Plan (1) Acute kidney injury superimposed on chronic kidney disease: (2) CKD stage 4 due to type 2 diabetes mellitus: (3) Chronic diastolic heart failure: (4) Type 2 diabetes mellitus: (5) Hepatic steatosis: (6) CHAPINCITO on CPAP: (7) Hypertension: Plan This is a 64-year-old male who has a significant past medical history of chronic diastolic CHF, hypertensive heart disease, hyperlipidemia on Repatha and statin, insulin-dependent T2DM with ( nephropathy, severe nonproliferative retinopathy, PVD and polyneuropathy), morbid obesity, CHAPINCITO on CPAP, CKD stage IV, COPD, Arreola's esophagus, hepatic cirrhosis, gout and history of tobacco abuse who presents to ED at the referral of PCP due to NEMESIO and abnormal labs. Please refer to Dr. Garcia Addendum for details regarding A/P. I spent a total of 50 minutes coordinating, documenting and providing care for this patient excluding time spent in the performance of separately billed services or time spent by another provider/QHP. History of Present Illness Chief Complaint: Referred in by PCP Due to NEMESIO/Abnormal labs. Primary Care Provider: Igor Mcconnell DO This is a 64-year-old male who has a significant past medical history of chronic diastolic CHF, hypertensive heart disease, hyperlipidemia on Repatha and statin, insulin-dependent T2DM with ( nephropathy, severe nonproliferative retinopathy, PVD and polyneuropathy), morbid obesity, CHAPINCITO on CPAP, CKD stage IV, COPD, Arreola's esophagus, hepatic cirrhosis, gout and history of tobacco abuse who presents to ED at the referral of PCP due to NEMESIO and abnormal labs. History obtained from patient, friend at bedside and external chart review. Patient fol james Moses at home. He was seen for a home visit on 08/24 by RN. Per external chart review patient reported ill feeling, nausea, vomiting and difficulty with oral intake. He generally felt unwell. He also reports taking his metolazone due to being up 3 pounds which worked well for him. His baseline weight is around 272. Lab work was ordered and upon further review he was found to have a creatinine of 4.0 today which is up from baseline. A follow-up was done today for which the patient continued to feel unwell and Aurelia at home provider recommended referral to ED for further evaluation. He has generally felt unwell for the last few days. In ED patient remained hemodynamically stable. His CBC and CMP was remarkable for BUN and creatinine of 68 and 3.21, sodium 134, chloride 97, AST 95, ALT 87 and H&H of 12.5 and 36.9. He received IV fluid in ED and admission was recommended. Patient states on Thursday he became acutely ill feeling nausea and having vomiting. Since Thursday he has had overall poor intake. He has been able to tolerate liquids. He has no longer having vomiting. He denies eating anything different. He denies any sick contacts. He states today he felt lightheaded and dizzy like he could pass out. He has held his diuretics for the past 2 days at the instruction of Aurelia at home. He reports his weight has remained stable. He denies any lower extremity swelling or increased abdominal bloating. He states his sugars have been running on the higher side. He denies any fever, chills, sweats, lightheadedness, dizziness, chest pain, shortness of breath, cough or URI symptoms, diarrhea, melena or hematochezia. He is still producing urine. Allergies Allergy/AdvReac Type Severity Reaction Status Date / Time Sulfa (Sulfonamide AdvReac Intermediate Hives Verified 08/25/24 20:23 Antibiotics) Home Medications Medication Instructions Recorded Confirmed Type aspirin 81 mg tablet,delayed 81 mg PO QAM 12/12/20 08/25/24 History release (John Low Dose Aspirin) clotrimazole-betamethasone 1 1 applic topical QAM PRN AFFECTED 12/12/20 08/25/24 History %-0.05 % topical cream AREAS insulin aspart U-100 100 unit/mL 0 sliding scale dose subcut TID 12/12/20 08/25/24 History (3 mL) subcutaneous pen (Novolog per sliding scale FlexPen U-100 Insulin aspart) vitamin B complex 1 tab PO QAM 12/12/20 08/25/24 History acetaminophen 500 mg tablet 500 mg PO Q6H PRN Pain 01/28/21 08/25/24 History (Tylenol Extra Strength) carvedilol 25 mg tablet 25 mg PO BID #180 tabs 05/28/21 08/25/24 Rx evolocumab 140 mg/mL subcutaneous 140 mg subcut .COMPLEX 05/28/21 08/25/24 History pen injector (Repatha SureClick) insulin degludec 100 unit/mL (3 116 unit subcut BID 07/12/21 08/25/24 History mL) subcutaneous pen (Tresiba FlexTouch U-100 insulin) cholecalciferol (vitamin D3) 125 125 mcg PO DAILY 04/21/22 08/25/24 History mcg (5,000 unit) tablet (Vitamin D3) omeprazole magnesium 20 mg 20 mg PO BID 05/06/22 08/25/24 History capsule,delayed release (Acid Junior Mechanical Engineer (omeprazole)) coQ10 (ubiquinol) 200 mg capsule 200 mg PO DAILY 10/20/23 08/25/24 History metolazone 2.5 mg tablet 2.5 mg PO DAILY PRN Weight Gain 08/25/24 08/25/24 History potassium chloride 20 mEq 40 meq PO BID 08/25/24 08/25/24 History tablet,extended release(part/cryst) pravastatin 20 mg tablet 20 mg PO DAILY 08/25/24 08/25/24 History spironolactone 25 mg tablet 25 mg PO DAILY 08/25/24 08/25/24 History torsemide 20 mg tablet 80 mg PO QAM 08/25/24 08/25/24 History Past Med/Surg History Problem List (Updated 08/25/24 @ 22:52 by Errol Patterson DO) Transaminitis (Acute) Acute hyponatremia (Acute) NEMESIO (acute kidney injury) (Acute) CKD stage 4 due to type 2 diabetes mellitus RHF (right heart failure) Chronic diastolic heart failure EF 59%, Grade 2 diastolic dysfunction, follows with [facility] cardiology Non-ST elevation [place] (NSTEMI) (Acute) Acute kidney injury superimposed on chronic kidney disease (Acute) Shortness of breath (Acute) Abdominal pain (Acute) Vitamin D deficiency NEMESIO (acute kidney injury) Acute on chronic diastolic CHF (congestive heart failure) Congestive heart failure (Acute) Esophageal polyp Chronic kidney disease G2/A3, baseline Cr 1.2, follows with [place] [facility] Encounter for pre-operative examination Mixed dyslipidemia History of tobacco use Uncontrolled type 2 diabetes mellitus with hyperglycemia Heart failure, diastolic, due to HTN Proteinuria Hepatic steatosis CHAPINCITO on CPAP Degenerative disc disease Type 2 diabetes mellitus IDDM Hypertension Medical History LVH (left ventricular hypertrophy) severe Arreola's esophagus Hyperlipidemia Surgical History Hx of arthroscopy of left knee History of colonoscopy History of cataract surgery bilateral History of ankle surgery right Family History Other No pertinent family history Social History Smoking Status: Never smoker Second Hand Exposure: No; Do You Dip or Chew Tobacco: No; Hx Alcohol Use: No Hx Substance Use: No Preferred Language: Mozambican Communication Ability: Effective Director Immunology Required: No Beliefs That Will Affect Care: None marital status: Current Living Situation: Significant Other Other Information That Helps Us Care for You: No Feels Safe at Home: Yes Safety Concerns: Feels Safe At This Time Assistive Devices: Cane and CPAP Review of Systems Review of Systems: All systems reviewed & are unremarkable except as noted in HPI & below Physical Exam Physical Exam: Constitutional: WD/WN, vitals as above, NAD, sitting up in bed, pleasant, conversing easily Head: Normocephalic, Atraumatic Eyes: PERRL, conjunctivae normal, anicteric sclerae ENMT: external ear and nose normal, oropharynx normal Neck: trachea midline, no thyromegaly normal visual inspection Respiratory: normal respiratory effort, lungs clear to auscultation, no wheeze, rales, rhonchi. Normal insp/exp effort, no accessory muscle use Cardiovascular: RRR, no murmur, no edema Vessels: no JVD or carotid bruit Chest: normal inspection of chest Abdomen: protuberant abd, normal bowel sounds, soft, nontender, no hepatosplenomegaly Musculoskeletal: no cyanosis or clubbing, extremities motor strength 5/5 Skin: no rashes, warm and dry normal turgor Neurologic: PERRL, EOMI, accommodation nl, no face palsy, no dysarthria CN's II-XI intact bilaterally and moves all extremities Psychiatric: A+Ox3, euthymic affect Lymphatic: no cervical or axillary lymphadenopathy : deferred Results & Data Results & Data Vital Signs (Past 12 Hours) Vital Signs Temp Pulse Pulse Resp BP BP Pulse Ox 08/25/24 18:47 60 18 120/65 97 08/25/24 17:42 36.9 C 63 19 158/82 H 98 O2 Del Method 08/25/24 18:47 Room Air 08/25/24 17:42 Room Air Laboratory Results I have independently reviewed and interpreted patient's admitting labs including CBC, CMP, lipase Medications Administered Medication List Discontinued Medications Sodium Chloride (Nss) 1,000 mls @ 999 mls/hr IV .Q1H1M ONE Stop: 08/25/24 19:18 Last Admin: 08/25/24 18:43 Dose: 999 mls/hr Documented By: CEF COVID-19 Results Results COVID-19 Adm Lab Results: RBC 4.41 M/uL (4.70-6.10) L 08/25/24 WBC 6.71 K/ul (4.8-10.8) 08/25/24 Hgb 12.5 g/dl (14.0-18.0) L 08/25/24 Hct 36.9 % (42.0-52.0) L 08/25/24 Plt Count 151 K/uL (130-400) 08/25/24 Neutrophils (%) (Auto) 55.9 % 08/25/24 Lymphocytes (%) (Auto) 27.3 % 08/25/24 Monocytes # (Auto) 0.59 K/uL (0.11-0.59) 08/25/24 Eosinophils # (Auto) 0.47 K/uL (0.00-0.50) 08/25/24 Immature Granulocyte % (Auto) 0.4 % 08/25/24 Neutrophils # (Auto) 3.75 K/uL (1.40-6.50) 08/25/24 Lymphocytes # (Auto) 1.83 K/uL (1.20-3.40) 08/25/24 Monocytes # (Auto) 0.59 K/uL (0.11-0.59) 08/25/24 Eosinophils # (Auto) 0.47 K/uL (0.00-0.50) 08/25/24 Basophils # (Auto) 0.04 K/uL (0.00-0.20) 08/25/24 Immature Granulocyte # (Auto) 0.03 K/uL (0.01-0.20) 5 Na 134 mmol/L (136-145) L 08/25/24 K 3.7 mmol/L (3.5-5.1) 08/25/24 Cl 97 mmol/L (98-107) L 08/25/24 CO2 27 mmol/L (21-32) 08/25/24 Anion Gap 10 (3-11) 08/25/24 BUN 68 mg/dl (6-23) H 08/25/24 Creatinine 3.21 mg/dl (0.6-1.4) H 08/25/24 BUN/Creatinine Ratio 21.2 (10-20) H 08/25/24 Glucose Level 158 mg/dl (70-99(Fasting)) H 08/25/24 Ca 9.8 mg/dl (8.6-10.3) 08/25/24 Total Bilirubin 1.1 mg/dl (0.2-1.0) H 08/25/24 AST/SGOT 95 U/L (13-39) H 08/25/24 ALT/SGPT 87 U/L (7-52) H 08/25/24 Alkaline Phosphatase 102 U/L (34-104) 08/25/24 Total Protein 8.4 gm/dl (6.0-8.3) H 08/25/24 Albumin 4.4 gm/dl (3.4-5.0) 08/25/24 Globulin 4.0 gm/dl (2.5-4.0) 08/25/24 Albumin/Globulin Ratio 1.1 (0.9-2) 08/25/24 Adenovirus (PCR) Not Detected (NotDetected) 08/25/24 B. parapertussis DNA (PCR) Not Detected (NotDetected) 08/07 B. pertussis DNA (PCR) Not Detected (NotDetected) 08/25/24 C. pneumoniae DNA (PCR) Not Detected (NotDetected) 5 Coronavirus Type OC43 (PCR) Not Detected (NotDetected) Coronavirus Type HKU1 (PCR) Not Detected (NotDetected) Coronavirus Type 229E (PCR) Not Detected (NotDetected) COVID-19 PCR Not Detected (NotDetected) 08/25/24 Coronavirus Type NL63 (PCR) Not Detected (NotDetected) Human Metapneumovirus (PCR) Not Detected (NotDetected) Influenza Virus Type A (PCR) Not Detected (NotDetected) Influenza Virus Type B (PCR) Not Detected (NotDetected) M. pneumoniae (PCR) Not Detected (NotDetected) 08/25/24 Parainfluenza Type 1 (PCR) Not Detected (NotDetected) 08/07 Parainfluenza Type 2 (PCR) Not Detected (NotDetected) 08/07 Parainfluenza Type 3 (PCR) Not Detected (NotDetected) 08/07 Parainfluenza Type 4 (PCR) Not Detected (NotDetected) 08/07 RSV (PCR) Not Detected (NotDetected) 08/25/24 Enterovirus/Rhinovirus (PCR) Not Detected (NotDetected) Chest X-Ray 08/25/24 Code Status & VTE Plan Code Status FULL CODE Supervising Physician Co-Signing Physician Notes IM ATTENDING : Patient seen and examined. History obtained from patient and records. Concur with salient points upon review of preceding documentation by Ms. Theresa Miller PA-C. I take responsibility for plan of care below. FINAL ASSESSMENT AND PLAN as follows : ARF on CKD Baseline creatinine 3 Recent viral illness Chronic diastolic heart failure (EF 55%, TTE 2023), equivocal volume status given congestion on imaging, patient intravascularly dry Hypertension, stable Hyperlipidemia on statin Rx CAD/PVD as per records COPD, lung status at baseline CHAPINCITO on CPAP DM2 insulin requiring, suboptimal control as of recent hemoglobin A1c of 9.06 June 2024 GERD on PPI Transaminitis secondary to NAFLD Past tobacco abuse OBS Admit to med/tele given equivocal volume status Baseline UA Monitor creatinine response to IV albumin Hold home diuretic for now until creatinine back to baseline Nephrology consult if without improvement Basal bolus insulin adjusted for decreased renal function, ISS BG goal 1 10-1 40, carb count coverage DVT prophylaxis. Heparin subcu Full code I spent a total of 20 minutes coordinating, documenting, and providing care for this patientexcludingtime spent by another provider/QHP. Text document was generated using [employer] voice recognition software. It may contain grammatical or spelling errors. Kindly contact undersigned for clarification of any documentation item in question.
--- NOTE | 2024-08-25 20:06 | XRay Report ---
EXAM: Portable AP chest radiograph TECHNIQUE: AP portable radiograph of the chest was obtained. INDICATION: Shortness of breath Comparison: Chest radiograph October 20, 2023 FINDINGS: LINES and TUBES: None CARDIOVASCULAR: Cardiac silhouette is stably enlarged in size. LUNGS/PLEURA: Mild pulmonary vascular congestion. No focal consolidation identified. No significant pleural fluid. No discernible pneumothorax. OSSEOUS/OTHER: No displaced acute osseous process identified. IMPRESSION: Mild congestive changes of the cardiovascular system which appears similar to previous radiograph from October 20, 2023. Electronically signed by Aly Sadler 08-25-2024 8:05 PM
[2024-08-25 20:52] LABS: Adenovirus PCR Not Detected (NotDetected); Bordetella parapertussis PCR Not Detected (NotDetected); Bordetella pertussis PCR Not Detected (NotDetected); Chlamydia pneumoniae PCR Not Detected (NotDetected); Coronavirus 229E PCR Not Detected (NotDetected); Coronavirus CoV-2 (COVID19)PCR Not Detected (NotDetected); Coronavirus HKU1 PCR Not Detected (NotDetected); Coronavirus NL63 PCR Not Detected (NotDetected); Coronavirus OC43PCR Not Detected (NotDetected); Human Metapneumovirus PCR Not Detected (NotDetected); Influenza A PCR Not Detected (NotDetected); Influenza B PCR Not Detected (NotDetected); Mycoplasma pneumoniae PCR Not Detected (NotDetected); Parainfluenza Virus 1 PCR Not Detected (NotDetected); Parainfluenza Virus 2 PCR Not Detected (NotDetected); Parainfluenza Virus 3 PCR Not Detected (NotDetected); Parainfluenza Virus 4 PCR Not Detected (NotDetected); Respiratory Syncytial VirusPCR Not Detected (NotDetected); Rhinovirus/Enterovirus PCR Not Detected (NotDetected)
[2024-08-25] MEDS ORDERED: ACETAMINOPHEN 500 MG TAB PO PRN (21:04)
[2024-08-25] MEDS ORDERED: oxyCODONE HCL IR 5 MG TAB (IMMEDIATE RELEASE) PO PRN (21:04)
[2024-08-25] MEDS ORDERED: PROMETHAZINE 12.5 MG/50.5 ML BAG IV PRN (21:04)
[2024-08-25] MEDS: ALBUMIN 25% 25 GM/100 ML VIAL IV ONE (21:33)
[2024-08-25 21:44] LABS: Appearance Urine Clear (Clear); Bilirubin Urine Negative (Negative); Blood Urine Negative (Negative); Color Urine Yellow; Glucose Urine UA Negative (Negative); Ketones Urine Negative (Negative); Leukocyte Esterase Urine Negative (Negative); Nitrite Urine Negative (Negative); Protein Urine Negative (Negative); Specific Gravity Urine 1.012 (1.000-1.030); Urobilinogen Urine Negative (Negative); pH Urine 7.5 (4.5-7.5)
[2024-08-25] MEDS: carvediloL 3.125 MG TAB PO ONE (22:05)
[2024-08-25] MEDS ORDERED: GLUCAGON FOR INJ 1 MG VIAL SQ PRN (22:09)
[2024-08-25] MEDS ORDERED: DEXTROSE 50% 50 ML SYRINGE IV PRN (22:09)
[2024-08-25] MEDS ORDERED: GLUCOSE 40% GEL 15 GM TUBE PO PRN (22:09)
[2024-08-25] MEDS ORDERED: GLUCOSE 10 TAB/TUBE PO PRN (22:09)
[2024-08-25] MEDS ORDERED: CARBOHYDRATES FOR HYPOGLYCEMIA PO PRN (22:09)
[2024-08-25] MEDS: INSULIN ASPART PER UNIT CHARGE SC SCH (23:23)
--- OUTSIDE RECORDS SUMMARY | 2024-08-26 02:19 | External Medical Summary | Summary of Care ---
Author Name Unknown Organization [facility] Address [address] [facility] [place] [address] Phone [phone] Care Team Providers Care Corporate Controller Name Role Phone Igor Mcconnell DO Primary Care Provider [phone] Reason for Visit * Reason Onset Date Comments [facility]: Maintenance 08/25/2024 Encounter Details Date Type Department Care Team (Late st Contact Info) Description 08/25/2024 10:15 AM EST Scheduled Telephone [facility], [facility] [address] [place] [id number] [facility], Nurse [facility] [address] [place] [address] Allergies Active Allergy Reactions Criticality Noted Date Comments Metolazone Renal complications 11/10/2023 Note prior DTP with metolazone resulted in acute renal failure Other Allergy (See Comments) Rash Low 10/13/2022 1+ cocamidopropyl betaine Sglt2 Inhibitors Other (Please comment) High 09/04/2020 Genital infection Sulfa Antibiotics Rash 10/15/2016 documented as of this encounter (statuses as of 08/25/2024) Medications Aspirin 81 MG Tablet Take 1 Tablet by mouth every evening. Active B Complex Capsule Take 1 Cap by mouth daily. Active CPAP every night at bedtime. Active OneTouch Delica Lancets 33G Use 3 times daily - E11.9 300 Each 3 09/07/19 22 Active Additional Information Patient taking differently:, Use 3 times daily - E11.9,Indications: diabetes, Reported on 08/08/2024 FreeStyle Cindy 2 SensorIndications:Ty pe 2 diabetes mellitus with hemoglobin A1c goal of less than 7.0% (HCC) Use as directed every 14 days . 6 Each 3 04/24/20 22 Active OneTouch Verio In Vitro Strip (Glucose Blood)Indications:Un controlled type 2 diabetes mellitus with hyperglycemia (HCC) USE TO TEST BLOOD GLUCOSE 3 TIMES A DAY. DX: E11.9 300 Strip 3 4 4:43 PM EDT 09/23/19 24 Active Ondansetron 4 MG Oral Tablet Disintegrating (Zofran) Place 1 Tablet on tongue every 8 hours as needed for Nausea. 30 Tablet 4 1:03 PM EDT 01/18/20 24 Active Vitamin D 125 MCG (5000 UT) Oral Capsule Take 1 Capsule by mouth in the morning. Active Coenzyme Q10 200 MG Oral Capsule Take 1 Capsule by mouth at bedtime. Active Acetaminophen ER 650 MG Oral Tablet Extended Release (Tylenol ER) Take 1-2 Tablets by mouth every 8 hours as needed. (Max dose 3000 mg per day) Active Clotrimazole-Betamet hasone 1-0.05 % External Cream (Lotrisone) Apply small amount of cream to scrotal area two times a day 90 g 1 4 5:44 PM EDT 03/02/20 24 Active Allopurinol 300 MG Oral Tablet (Zyloprim)Indication s:Gout, arthropathy Take 1 Tablet by mouth in the morning. 100 Tablet 3 4 11:17 AM EST 03/17/20 24 Active NovoLOG FlexPen 100 UNIT/ML Subcutaneous Solution Pen-injectorIndicati ons:Type 2 diabetes mellitus with hemoglobin A1c goal of less than 7.0% (HCC) INJECT UNDER THE SKIN 20 UNITS AT BREAKFAST, 26 UNITS AT LUNCH, 38 UNITS WITH DINNER PLUS CORRECTION PER [facility] OR DIRECTED UP TO 120 UNITS PER DAY 120 mL 3 4 11:17 AM EST 03/21/20 24 Active DIURETIC TITRATION PLAN If no improvement on day 3, contact [facility] for possible home visit 1 Each 03/24/20 24 Active Evolocumab 140 MG/ML Subcutaneous Solution Auto-injector (Repatha SureClick)Indication s:Dyslipidemia, goal LDL below 100,Mixed dyslipidemia Inject 140 mg under the skin every 14 days. 6 mL 3 4 11:42 AM EST 03/24/20 24 Active Additional Information Patient taking differently:140 mg Subcutaneous [id number],Om Fridays, Reported on 08/24/2024 Unifine Pentips 31G X 8 MM (Insulin Pen Needle)Indications:T ype 2 diabetes mellitus with hemoglobin A1c goal of less than 7.0% (HCC) USE TO INJECT INSULINS 5 TIMES DAILY 500 Each 3 5 5:15 PM EST 04/18/20 24 Active [id number] Ethyl Esters 1 GM Oral Capsule (Lovaza) Take 2 Capsules by mouth in the morning and 2 Capsules before bedtime. 360 Capsule 1 4 6:26 AM EST 04/18/20 24 Active metOLazone 2.5 MG Oral Tablet (Zaroxolyn)Indicatio ns: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) Take 1 tablet by mouth as needed for > 3 lb weight gain in 1 day, or > 5 lb weight gain in 1 week. 100 Tablet 5 4 7:46 AM EDT 04/18/20 24 Active Omeprazole 20 MG Oral Capsule Delayed Release (PriLOSEC) TAKE 1 CAPSULE BY MOUTH IN THE MORNING AND 1 CAPSULE BEFORE BEDTIME 30 MINUTES BEFORE A MEAL 180 Capsule 1 5 7:13 AM EST 05/02/20 24 025 Active Carvedilol 25 MG Oral Tablet (Coreg)Indications:H TN, goal below 140/90 TAKE ONE TABLET BY MOUTH EVERY MORNING AND TAKE ONE TABLET BY MOUTH BEFORE BEDTIME 200 Tablet 3 5 11:04 AM EST 05/17/20 24 025 Active Potassium Chloride Gaviota ER 20 MEQ Oral Tablet Extended Release Take 2 Tablets by mouth in the morning and 2 Tablets before bedtime. 360 Tablet 3 05/30/20 24 Active Spironolactone 25 MG Oral Tablet (Aldactone) Take 1 Tablet by mouth in the morning. 90 Tablet 3 5 11:04 AM EST 05/30/20 24 Active Pravastatin Sodium 20 MG Oral Tablet (Pravachol) Take 1 Tablet by mouth daily. 30 Tablet 11 4 1:13 PM EST 06/21/20 24 Active Torsemide 20 MG Oral Tablet (Demadex)Indications :Chronic heart failure with preserved ejection fraction (HCC),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 Or take as directed 800 Tablet 3 4 6:26 AM EST 06/27/20 24 Active Insulin Degludec FlexTouch 200 UNIT/ML Subcutaneous Solution Pen-injectorIndicati ons:Type 2 diabetes mellitus with hemoglobin A1c goal of less than 7.0% ([facility]) Inject 116 Units under the skin in the morning and 116 Units in the evening. 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 2 mL 11 5 9:37 AM EST 08/01/19 25 026 Active documented as of this encounter (statuses as of 08/25/2024) Active Problems Patient Care Coordination No te Formatting of this note migh t be different from the original. Heart Failure Self-Management and Exacerbation Plan "RED FLAG" HF Symptoms: Leg Swelling Abdominal Bloating Increased dyspnea on exertion Increased shortness of breath at rest Orthopnea Remote Patient Monitoring Vendor: [facility] [place] Device(s): Connected Scale Self - Management Plan Add metolazone (Zaroxolyn) 2.5-5mg for 2 days. If using a potassium supplement, double the dose of the supplement will be given on the day of and on the day after the metolazone Exacerbation Plan Anticipated IV Lasix dose: 200 mg CMP Pro-BNP Additional Comments: Add Mag level Loop in both Cards/Renal if giving IV Lasix Problem Noted Date Diagnosed Date Essential (primary) hypertension 08/01/2024 Calcification of coronary artery 08/01/2024 Gout, arthropathy 07/01/2024 Hepatic cirrhosis 02/12/2024 Type 2 diabetes mellitus wit h stage 4 chronic kidney disease, with long-term current use of insulin 02/12/2024 Uncontrolled type 2 diabetes mellitus with hyperglycemia, with long-term current use of insulin 10/20/2023 Chronic obstructive pulmonary disease 01/21/2023 Overview (07/25/2023): PFTs done on 12/18/2022 show severe obstructive disease. Not currently requiring any inhaled medications Assessment & Plan (01/21/2023 12:47 PM EDT): PFTs done on 12/18/2022 show severe obstructive disease. Not currently requiring any inhaled medications. Needs follow-up scheduled with Pulmonary to discuss results and recommendations. Chronic heart failure with preserved ejection fr action 10/03/2022 Hypertensive heart and kidne y 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 4 chronic kidney disease 04/17/2022 Assessment & Plan (07/25/2023 7:36 PM EST): "RED FLAG" HF Symptoms: Leg Swelling (Examples: [...] in the Comments) Remote Patient Monitoring Vendor: [facility] [place] Device(s): Connected Scale Self - Management Plan Double dose of Torsemide for 3 days Exacerbation Plan BMP Chest X-Ray Additional Comments: Recommended using double torsemide for 3 days in a row, rather than 1 day like he has been doing Continue using [facility] scale Low sodium diet Assessment & Plan (01/21/2023 12:54 PM EDT): "RED FLAG" HF Symptoms: o Leg Swelling [...] Repeat BMP will be done Thursday morning. Assessment & Plan (12/19/2022 11:11 AM EDT): Current Status: "Stable" for patient / At or near baseline Degree of Condition Awareness: Demonstrates very good awareness of condition, disease course, and prognosis "RED FLAG" HF Symptoms: o Leg Swelling (Examples: "I can't wear certain socks or shoes", "My pants feel tight") o Abdominal Bloating (Examples: "I can't wear certain pants", "My belly feels hard", "I look ") o Increased dyspnea on exertion (Example: "I can't walk to the kitchen or up the stairs") Current Heart Failure Classifications: o With ordinary activity such as doing housework, yard work or shopping ([employer] CLASS [employer]) Diagnostic Review: Recent Labs Units 12/17/22 1438 12/12/22 1415 11/26/22 1202 11/24/22 1017 LEFT VENTRICULAR EJECTION FRACTION % -- -- -- 55 BNP (NT-PRO-BNP) - [facility] pg/mL -- 853* -- -- ESTIMATED GLOMERULAR FILTRATION RATE - [facility] mL/min 28* 31* < > -- HGB - [facility] g/dL 13.3* 13.0* < > -- < > = values in this interval not displayed. Medication Regimen: o Beta Ritchie Therapy: Carvedilol o ARIANNA Inhibitor/ARB Therapy: Other: none o Diuretic therapy: Torsemide Metolazone Self - Management Plan o Other/Additional Comments: recently changed by PCP. added metolatzone thursday Exacerbation Plan o BMP o Pro-BNP Assessment & Plan (10/23/2022 4:30 PM EDT): Current Status: Actively exacerbating Degree of Condition Awareness: Demonstrates very good awareness of condition, disease course, and prognosis "RED FLAG" HF Symptoms: o Leg Swelling (Examples: "I can't wear certain socks or shoes", "My pants feel tight") Current Heart Failure Classifications: o With ordinary activity such as doing housework, yard work or shopping ([employer] CLASS II) Diagnostic Review: Recent Labs Units 10/23/22 0912 10/02/22 1224 10/02/22 1131 09/16/22 1556 09/12/22 1148 LEFT VENTRICULAR EJECTION FRACTION % -- -- 55 -- -- BNP (NT-PRO-BNP) - [facility] pg/mL -- -- -- -- 388* ESTIMATED GLOMERULAR FILTRATION RATE - [facility] mL/min 34* < > -- < > 34* HGB - [facility] g/dL -- -- -- -- 14.5 < > = values in this interval not displayed. Medication Regimen: o Beta Ritchie Therapy: Carvedilol o ARIANNA Inhibitor/ARB Therapy: Other: none o Diuretic therapy: Torsemide Self - Management Plan o Double dose of Torsemide for 3 days o Other/Additional Comments: see blue sticky Exacerbation Plan o BMP Assessment & Plan (05/25/2022 8:25 AM EST): Current Status: "Stable" for patient / At or near baseline Degree of Condition Awareness: Demonstrates very good awareness of condition, disease course, and prognosis "RED FLAG" HF Symptoms: o Leg Swelling (Examples: "I can't wear certain socks or shoes", "My pants feel tight") o Abdominal Bloating (Examples: "I can't wear certain pants", "My belly feels hard", "I look ") Current Heart Failure Classifications: o With ordinary activity such as doing housework, yard work or shopping ([employer] CLASS II) Diagnostic Review: Recent Labs Units 05/14/22 0800 05/05/22 0800 04/18/22 1044 01/25/21 1158 01/21/21 0906 LEFT VENTRICULAR EJECTION FRACTION % -- -- -- -- 59 BNP (NT-PRO-BNP) - [facility] pg/mL 817* -- 1,146* < > -- ESTIMATED GLOMERULAR FILTRATION RATE - [facility] mL/min 40* < > 39* < > -- EGFR-OUTSIDE LAB -- -- -- < > -- HGB - [facility] g/dL -- -- 12.5* < > -- HEMOGLOBIN-OUTSIDE LAB -- -- -- < > -- < > = values in this interval not displayed. Medication Regimen: o Beta Ritchie Therapy: Carvedilol o ARIANNA Inhibitor/ARB Therapy: No ARIANNA/ARB/ARNI o Diuretic therapy: Bumex Self - Management Plan o Avoid excessive fluid intake and avoid salty, processed food o Weigh daily o Self-Management Plan still in process of being defined and education to patient is ongoing Exacerbation Plan o Pro-BNP o Chest Xray o Exacerbation plan still being defined and education ongoing Type 2 diabetes mellitus with peripheral vascula r disease 03/05/2022 Type 2 diabetes mellitus wit h diabetic polyneuropathy, with long-term current use of insulin 03/05/2022 Arreola's esophagus with high grade dysplasia Assessment & Plan (12/19/2022 11:20 AM EDT): omeprazole 20 mg BID Assessment & Plan (10/23/2022 4:32 PM EDT): Rx for omeprazole 20 mg BID sent 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 Will hold fenofibrate due to EGFR less than 30. -already has repeat lipid panel scheduled in 3 months. Assessment & Plan (10/23/2022 4:31 PM EDT): Continue repatha, fenofibrate History of tobacco use 08/18/2017 CHAPINCITO on CPAP 08/18/2017 Overview (08/18/2017): ?18cwp Type 2 diabetes mellitus wit h hemoglobin A1c goal of less than 8.0% 12/31/2016 Assessment & Plan (10/23/2022 4:32 PM EDT): Current Status: "Stable" for patient / At [...] as of this encounter (statuses as of 08/25/2024) Resolved Problems Problem Noted Date Diagnosed Date Resolved Date Hypertensive heart and kidne y 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 08/01/202407/07 Type 2 diabetes mellitus wit h severe nonproliferative retinopathy of right eye and macular edema 07/25/2023 02/12/2024 Assessment & Plan (07/25/2023 7:42 PM EST): "RED FLAG" Diabetic symptoms: Vision Changes and [...] and RDN Other specified peripheral vascular diseases 4 02/12/2024 Coronary artery calcification seen on CT scan 07/25/19 24 08/01/2024 Sacroiliitis 09/02/2022 10/20/2023 Type 2 diabetes mellitus wit h stage 3b chronic kidney disease, with long-term current use of insulin 05/25/2022 07/25/2023 Assessment & Plan (01/21/2023 12:45 PM EDT): "RED FLAG" Diabetic symptoms: o Other: No [...] has been better controlled recently. Monitor using [employer] Cindy. Assessment & Plan (12/19/2022 11:13 AM EDT): Last hemoglobin A1c 9.4 Regimen changed yesterday by pharmacy Current Status: Actively exacerbating Degree of Condition Awareness: Demonstrates very good awareness of condition, disease course, and prognosis "RED FLAG" Diabetic symptoms: o none Goal HgbA1c o <7 Diabetic Complications o Vascular (examples: PVD, PAD, CAD, CVA) o Renal (example: CKD, Proteinuria, Dialysis) Medication Regimen o Bolus/Short Acting Insulin o Other: tresiba DM Secondary Prevention o statin Assessment & Plan (05/25/2022 8:27 AM EST): Degree of Condition Awareness: Demonstrates very good awareness of condition, disease course, and prognosis "RED FLAG" Diabetic symptoms: o none Goal HgbA1c o <8 Diabetic Complications o Renal (example: CKD, Proteinuria, Dialysis) Medication Regimen o Basal/Long Acting Insulin o Bolus/Short Acting Insulin DM Secondary Prevention o Moderate-High Intensity Statin o Aspirin NEMESIO (acute kidney injury) 04/30/2022 Severe obesity with body mas s index (BMI) of 35.0 to 39.9 with serious comorbidity 04/30/2022 Chronic kidney disease, stage 3b 03/17/2022 03/01/2024 Overview: Per CKD protocol Acute on chronic diastolic heart failure 08/16/2021 10/03/2022 Elevated LFTs 08/16/2021 05/25/2022 Hypertensive heart disease w ith chronic diastolic congestive heart failure 01/25/202104/21 Hepatic steatosis 05/29/2020 02/12/2024 Need for pneumococcal vaccination 03/06/2020 05/29/2020 Uncontrolled type 2 diabetes mellitus with hyperglycemia 07/11/2019 02/12/2024 Severe obesity with body mas s index (BMI) of 35.0 to 39.9 with serious comorbidity 07/11/2019 BMI 40.0-44.9, adult 04/18/2019 024 Overview: Per Obesity protocol - ICD-10 update of inactive diagnosis Severe obesity with body mas s index (BMI) of 35.0 to 39.9 with serious comorbidity 08/18/2017 Overview: Per Obesity protocol - ICD-10 update of inactive diagnosis Mild single current episode of major depressive disorder 12/31/2016 08/18/2017 HTN, goal below 140/90 12/31/201605/25 Cataract of both eyes 12/31/20162017 documented as of this encounter (statuses as of 08/25/2024) Immunizations Name Administration Dates Next Due COVID-19 mRNA, LNP-s, No Pre serve, 2-Dose Series (Moderna) 12/10/2020,11/12/2020 Hepatitis B, 20+ yrs 01/04/2018,08/03/2017,07/03 Pneumococcal Conjugate Vacci ne, 20-valent ([id number]) 06/09/2022 Pneumococcal Polysaccharide PPV23 (Pneumovax) 03/06/2020 RSV Vac., Bivalent, Perfusio n F, Pf,0.5 Ml (Abrysvo) 02/12/2024 Seasonal Influenza Vac., MDV , IM, 0.5 mL (Fluzone) 04/05/2016 Seasonal Influenza, High Dos e, Trivalent, PF, IM (Fluzone HD) 03/11/2024 Seasonal Influenza, PF, 6 M & above, IM , (FluLaval or Fluzone) 04/01/2023,04/27/2022,03/21/2021,04/18,07/11/2019,08/18/2017 TDAP (age 10 and older)(Boostrix) 12/29/2016 Zoster [...] Date Recorded PHQ Adult Total Score 0 08/08/2024 Hunger Vital Sign Answer Date Recorded Within the past 12 months, y ou worried that your food would run out before you got the money to buy more. Never true 05/02/20 24 Within the past 12 months, t he food you bought just didn't last and you didn't have money to get more. Never true 05/02/2024 Childcare Answer Date Recorded Do you feel overwhelmed with taking care of a child, family member or friend? No 05/02/2024 Does your family need help f inding childcare? (Household - for ages 0-17 years) Not on file 05/02/2024 Clothing Answer Date Recorded Have you been unable to get clothing when it was really needed? No 05/02/2024 Is your family able to get c lothes or diapers when needed? (Household - for ages 0-17 years) Not on file 05/02/2024 Personal Safety Answer Date Recorded Do you feel unsafe or have concerns for your saf ety? No 05/02/2024 Do you have concerns for you r family's safety? (Household - for ages 0-17 years) Not on file 05/02/2024 Utilities Answer Date Recorded Do you have trouble paying y our heating, water, or electric bill? No 05/02/2024 Is your family able to pay t he heat, water, or electric bill? (Household - for ages 0-17 years) Not on file 05/02/2024 Does your family have access to good internet? (Household - for ages 0-17 years) Not on file 05/02/2024 Employment Status Answer Date Recorded Are you unemployed or without regular income? No 05/02/2024 Does the household have a re lar source of income? (Household - for ages 0-17 years) Not on file 05/02/2024 Social Connections Answer Date Recorded How often do you feel lonely or isolated from th ose around you? Never 05/02/2024 Financial Resource Strain Answer Date R ecorded Do you have any trouble payi ng for your medications, or do you think you might in the future? No 05/02/2024 Does your family have troubl e paying for medicine? (Household - for ages 0-17 years) Not on file 05/02/2024 Transportation Needs Answer Date Record ed Do you have trouble getting a ride to medical visits or work? (Adult - for ages 18 years and over) Not on file 05/02/2024 Does your family have a hard time getting a ride to doctors visits? (Household - for ages 0-17 years) Not on file 05/02/2024 Has lack of transportation k ept you from medical appointments, meetings, work, or from getting things needed for daily living? Check all that apply. No 05/02/2024 Do you (or your family) have trouble finding or paying for a ride (transportation)? (Household - for ages 0-17 years) Not on file 05/02/2024 Housing Stability Answer Date Recorded Do you currently live in a s helter or have no steady place to sleep at night? No 05/02/2024 Do you think you are at risk of becoming homeless? (Adult - for ages 18 years and over) Not on file 05/02/2024 Does your family worry about paying for your home or becoming homeless? (Household - for ages 0-17 years) Not on file 1 Are you homeless or worried that you might be in the future? No 05/02/2024 Are you (or your family) edgar eless or worried that you might be in the future? (Household - for ages 0-17 years) Not on file Food Insecurity Answer Date Recorded Do you need food for this week? No 05/02/2024 Are you able to get enough f ood for your family? (Household - for ages 0-17 years) Not on file 05/02/2024 Does your family need food t his week? (Household - for ages 0-17 years) Not on file 05/02/2024 Do you always have enough fo od for your family? (Household - for ages 0-17 years) Not on file 05/02/2024 Food Insecurity Answer Date Recorded Within the past 12 months, y ou worried that your food would run out before you got the money to buy more. Never true 05/02/20 24 Within the past 12 months, t he food you bought just didn't last and you didn't have money to get more. Never true 05/02/2024 Do you need food for this week? No 05/02/2024 Sex and Gender Information Value Date Recorded Sex Assigned at Male 12/06/2018 8:36 AM EDT Legal Sex Male 12:32 PM EDT Gender Identity Male 12/06/2018 8:36 AM EDT Sexual Orientation Straight 12/06/2018 8: 36 AM EDT documented as of this encounter Miscellaneous Notes * Telephone Encounter - Love Stevens RN - 08/25/2024 1:39 PM EST Spoke with patient- Made aware of [facility] recommendations. Agreeable to go but has some things to get in order before he goes. Will sent TT to get on hospital list. * Telephone Encounter - Josh Sullivan MD - 08/25/2024 1:14 PM EST Due to poor po intake, wt gain (presumed fluid overload), and worsening kidney function (cr 3.0 in Dec, now 4.0), I think it would be best for him to be seen in ED today. I don't think [facility] can safely offer additional home-based management of this condition. TT sent to Love Christiansen, and Drs. Mcconnell and Naun Sullivan MD, [facility] [place] [facility], [employer] [place] [place] [facility] Available on [employer] * Telephone Encounter - Delia Cohen RN - 08/25/2024 10:32 AM EST Images from the original note were not included. [facility] Telephonic Nurse Follow-Up Call [facility] Subprogram: Focused Care Management (3-9 months) Follow Up Call Type: 24 hour follow up Acute issue requiring follow-up call: Acute Kidney Injury Objective: 08/24/2024 11:20 AM 08/08/2024 9:45 AM 08/01/2024 2:28 PM 07/26/2024 11:10 AM 07/01/2024 2:15 PM VITALS ACROSS ENCOUNTERS BP 132/74 128/70 126/64 129/68 136/78 Pulse 64 69 68 64 70 Weight 122.4 kg 128.4 kg 128.8 kg 127.1 kg BMI 38.12 38.51 38.01 BMI 36.34 kg/m2 38.12 kg/m2 38.52 kg/m2 38.02 kg/m2 Remote Patient Monitoring: Current Health Device: Oxygen Needs: NO supplemental oxygen needs identified DME Needs: NO DME needs identified Medications: Has there been any recent medication changes? Dose adjustment(s) made: 08/24 dose of torsemide held, to resume on 08/25 Subjective: Condition Status: No change in symptoms Current Concerns: Pt seen 08/24 for acute home visit, not feeling well for few days, +n/v evening prior. Pt required two doses of metolazone over 9 days due to weight gain, is followed by nephrology. At time of visit, pt tolerating PO clears, voiding and moving bowels WNL. BMP and Mg drawn, pt instructed to hold torsemide on 08/24 and resume 08/25. Today, spoke with pt, reports he continues to feel unwell today, feels like "head is spinning." He hasn't had anything PO since last night. He is going to try some tea now. No further vomiting but continues to have uneasy GI feeling. Urinating and moving bowels without issues, states urine does not seem darker than usual. Has been able to get around his house to do some chores, with adding in rest periods. He did skip torsemide and potassium today until further direction, took all other meds. Pt encouraged to try sips of clears as tolerated. Weight today is 273.1 lbs on CH scale. This is up from yesterday's wt of 269.9 but pt reports his baseline is 272-273 lbs. See labs resulted below, with prior labs from 07/01 below that for comparison: Disposition: Routed to [facility] and/or david at [place] Care Team for further advice Future Visits Scheduled: Future Appointments-next 60 days Date/Time Provider Specialty Dept Phone 08/30/2024 8:30 AM Love Stevens RN [facility] [phone] 09/08/2024 11:10 AM (Arrive by 10:55 AM) Gael Orr [address] [place] [address] Arrive at: Patient's Home [phone] 09/27/2024 11:30 AM Gael Zuniga Cardiology [facility] Cardiology Arrive at: Patient's Home [phone] 09/30/2024 2:20 PM (Arrive by 2:05 PM) Igor Mcconnell, Family Medicine [phone] 10/27/2024 1:00 PM (Arrive by 12:45 PM) Lindsey Sheikh CRNP Sleep Disorders [phone] 11/18/2024 2:00 PM (Arrive by 1:45 PM) Luisa Ching PA-C Nephrology [phone] 08/09/2025 10:30 AM Osito Nurse Annual Wellness Ancillary [phone] Delia Cohen RN documented in this encounter Plan of Treatment Upcoming Encounters Date Type Department Care Team (Late st Contact Info) Description 08/30/2024 8:30 AM EST Home Visit [facility], [facility] 132 [facility] [place] [address] Love Stevens, ANNE MARIE 132 [facility] [place] [address] 09/08/2024 11:10 AM EST Telemedicine Family Practice [address] [place] [address] [address] [place] [address] College, Pharmacist [address] [place] [address] 09/27/2024 11:30 AM EDT Telemedicine Cardiology [facility] [place] [address] [place] [address] [place] [address], Pharmacist Cardiology [facility] [address] [place] [address] 09/30/2024 2:20 PM EDT Office Visit Family Practice [address] [place] [address] [address] [place] [phone] Igor Mcconnell, 293 [place] [address] 10/27/2024 1:00 PM EDT Office Visit [facility] Disorders Ctr [facility] [address] Lindsey Sheikh [facility]NP [facility] [address] 11/18/2024 2:00 PM EDT Office Visit Nephrology [address] [place] [address] Luisa Ching PA-C [address] [place] [address] 08/09/2025 10:30 AM EST Nurse Only Ancillary [address] [place] [address] [place], Nurse [address] [place] [address] Scheduled Procedures Name Priority Associated Diagnoses Date/Ti ne COLONOSCOPY FLEXIBLE PROXIMA L DIAGNOSTIC Recall History of colonic polyps Health Maintenance Due Date Last Done Comments Alpha-1 Antitrypsin 1977 Cologuard 02/09/2004 Fecal Occult Blood Test 02/09/2004 Sigmoidoscopy 02/09/2004 COVID-19 Vaccine ( season) 2024 12/10/2020, 11/12/2020 Diabetic Foot Exam 10/19/2024 10/20/2023, 0 09/02/2022, 08/16/2021, Additional history exists HbA1c 12/30/2024 07/01/2024, 080 03/2024, 10/21/2023, Additional history exists GFR 02/21/2025 08/24/2024, 06/06, 06/13/2024, Additional history exists PTH 05/13/2025 05/13/2024, 08/3 07/2021, 09/12/2020 Phosphate 05/13/2025 05/13/2024, 10/05, 10/23/2023, Additional history exists Albumin/Creatinine Ratio 05/18/2025 024, 05/13/2024, 06/11/2023, Additional history exists Nephrology Referral 05/30/2025 05/30/2024 Colonoscopy 06/13/2025 06/13/2024, 120 03/2024, 01/01/2018, Additional history exists Colorectal Cancer Screening 06/13/2025 O2 ASSESSMENT COMPLETED IN PAST YEAR FOR COPD 06/13/2025 06/13/2024 Arreola's Esophagus Surveilance 06/16/2025 06/16/2022, 06/16/2022, 03/20/2022, Additional history exists Hgb 07/01/2025 07/01/2024, 110 02/2024, 03/11/2024, Additional history exists Diabetic Eye Exam 07/20/2025 07/20/2024, , 05/19/2024, Additional history exists Depression Screening 08/08/2025 08/08/2024, 08/01/19 25 DTap/Tdap Vaccines (2 - Td or Tdap) 12/29/2026 12/29/2016 Hepatitis B Vaccine Completed 01/04/2018, 08/03/2017, 07/03/2017 Zoster Vaccines Completed 05/29/2020, 01/27/2020 Pneumococcal Vaccine: 50+ Years Completed 06/09/2022, 03/06/2020 AAA Screening Completed 10/20/2023, 01/29/2021 Influenza Vaccine (FLU shot) Completed 03/11/2024, 04/01/2023, 04/27/2022, Additional history exists RETIRED - COLONOSCOPY-EVERY 5 YRS AGES 18-100 Discontinued 06/13/2024, 06/13/2024, 01/01/2018, Additional history exists HPV (Gardasil) Vaccine Aged Out No lo nger eligible based on patient's age to complete this topic MENINGOCOCCAL (MENACTRA/MENVEO) Aged Out No longer eligible based on patient's age to complete this topic Meningitis B Vaccine (Bexsero/Trumemba) Aged Out No longer eligible based on patient's age to complete this topic documented as of this encounter Medical Devices Implanted Type Area Jockey Room Custodian Device Identifier Shelf Expiration Date Model / Serial / Lot Lens Intraoc 21.0 - [id number] - [id number] Implanted:Qty: 1 on 01/22/2017 by Cheko Mcnamara MD at OR [facility] Right: Eye [employer] 08/05/2021 [id number] / [id number] / [id number] Lens Intraoc 21.5 - [id number] - [id number] Implanted:Qty: 1 on 02/03/2017 by Cheko Mcnamara MD at OR [facility] Left: Eye BAUSCH [employer] LOMB 09/02/2021 [id number] / [id number] / [id number] Hemostatic Clip Res 235cm - [id number] Implanted:Qty: 4 on 06/13/2024 by José Miguel Sifuentes MD at ENDOSCOPY [facility] [employer] : ENDOSCOPY 10/12/2026 [id number] / / [id number] Hemostatic Clip Res 235cm - [id number] Implanted:Qty: 4 on 06/13/2024 by José Miguel Sifuentes MD at ENDOSCOPY [facility] : ENDOSCOPY 03/18/2027 [id number] / / [id number] documented as of this encounter Advance Directives * Full Code (Latest Code Status on File) Date Activated Date Inactivated Comments 02/03/2017 6:20 AM 02/03/2017 12:46 PM This order re flects the patients wishes and were consensually agreed upon. * Full Code Date Activated Date Inactivated Comments 01/22/2017 6:38 AM 01/22/2017 1:19 PM This order r eflects the patients wishes and were consensually agreed upon. Care Teams Corporate Controller Relationship Specialty Start Date End Date Igor Mcconnell DO [address] [place] [address] PCP - General Internal Medicine 02/12/24 documented as of this encounter
--- OUTSIDE RECORDS SUMMARY | 2024-08-26 02:20 | External Medical Summary ---
Author Name Unknown Address Unknown Organization K01:[facility] [place] - [address] [place] [address] Laboratory Report Ordering Provider Test Date Status RC ESCOBEDO 08/24/2024 11:58:38 Final Observation Date Value Abnormality Reference (Units ) Status BUN 08/24/2024 11:58:38 78 Above high normal 6-20 (mg/dL) Final Creatinine 08/24/2024 11:58:38 4.0 Above high normal 0.6-1.2 (mg/dL) Final Glomerular filtration rate/1.73 sq M.predicted [Volume Rate/Area] in Serum, Plasma or Blood by Creatinine-based formula (CKD-EPI) 08/24/2024 11:58:38 16 Below low normal >=60 (mL/min) Final eGFR is calculated based on the CKD-EPI 2020 equation. Sodium 08/24/2024 11:58:38 140 135-146 (m mol/L) Final Potassium 08/24/2024 11:58:38 4.3 3.5-5.1 (m mol/L) Final Cl 08/24/2024 11:58:38 95 Below low normal 98- 107 (mmol/L) Final CO2 08/24/2024 11:58:38 28 22-32 (mmo l/L) Final Anion gap 08/24/2024 11:58:38 17 Above high normal 7- 15 (mmol/L) Final Glucose 08/24/2024 11:58:38 115 70-120 (mg /dL) Final Albumin 08/24/2024 11:58:38 4.7 3.8-5.0 (g /dL) Final AST (Aspartate aminotransferase) 08/24/2024 11:58:38 85 Above high normal 10-50 (U/L) Final Alk Phos 08/24/2024 11:58:38 128 35-130 (U/ L) Final Bilirubin, Total 08/24/2024 11:58:38 1.4 Above high no rmal <=1.2 (mg/dL) Final Calcium 08/24/2024 11:58:38 10.3 Above high normal 8. 4-10.2 (mg/dL) Final Protein 08/24/2024 11:58:38 8.4 Above high normal 6. 0-8.3 (g/dL) Final ALT (Alanine aminotransferase) 08/24/2024 11:58:38 92 Above high normal 10-50 (U/L) Final Performing Location [facility] [place] - [address] [facility] [address]
--- OUTSIDE RECORDS SUMMARY | 2024-08-26 02:20 | External Medical Summary | Summary of Care ---
Author Name Unknown Organization [facility] Address [address] [facility] [place] [address] Phone [phone] Care Team Providers Care Quality Control Associate Name Role Phone Igor Mcconnell DO Primary Care Provider [phone] Encounter Details Date Type Department Care Team (Late st Contact Info) Description 05/25/2024 Telephone [facility], [facility] [address] [place] [address] Janeth Kelley, PUBLIC RELATIONS COORDINATOR [address] [facility] [place] [address] Allergies Active Allergy Reactions Criticality Noted Date [...] daily - E11.9 300 Each 3 09/07/19 Active Additional Information Patient taking differently:, Use 3 times daily - E11.9,Indications: diabetes, Reported on 08/08/2024 [employer] Cindy 2 SensorIndications: Type 2 diabetes mellitus with hemoglobin A1c goal of less than 7.0% (HCC) Use as directed every 14 days . 6 Each 3 04/24/20 22 Active OneTouch Verbob In Vitro Strip (Glucose Blood)Indications: Uncontrolled type [...] (Max dose 3000 mg per day) Active Clotrimazole-Betam ethasone 1-0.05 % External Cream (Lotrisone) Apply small amount of cream to scrotal area two times a day 90 g 1 4 5:44 PM EDT 03/02/20 24 Active Allopurinol 300 MG Oral Tablet (Zyloprim)Indicati ons:Gout, arthropathy Take 1 Tablet by mouth in the morning. 100 Tablet 3 4 11:17 AM EST 03/17/20 24 Active NovoLOG FlexPen 100 UNIT/ML Subcutaneous Solution Pen-injectorIndica tions:Type 2 diabetes mellitus with hemoglobin A1c goal of less than 7.0% (HCC) INJECT UNDER THE SKIN 20 UNITS AT BREAKFAST, 26 UNITS AT LUNCH, 38 UNITS WITH DINNER PLUS CORRECTION PER [facility] OR DIRECTED UP TO 120 UNITS PER DAY 120 mL 3 4 11:17 AM EST 03/21/20 24 Active DIURETIC TITRATION PLAN If no improvement on day 3, contact [facility] for possible home visit 1 Each 03/24/20 24 Active Evolocumab 140 MG/ML Subcutaneous Solution Auto-injector (Repatha SureClick)Indicati ons:Dyslipidemia, goal LDL below 100,Mixed dyslipidemia Inject 140 mg under the skin every 14 days. 6 mL 3 4 11:42 AM EST 03/24/20 24 Active Additional Information Patient taking differently:140 mg Subcutaneous [id number],Om Fridays, Reported on 08/24/2024 Unifine Pentips 31G X 8 MM (Insulin Pen Needle)Indications :Type 2 diabetes mellitus with hemoglobin A1c goal of less than 7.0% (HCC) USE TO INJECT INSULINS 5 TIMES DAILY 500 Each 3 5 5:15 PM EST 04/18/20 24 Active Qxfjb-5-kfhr Ethyl Esters 1 GM Oral Capsule (Lovaza) Take 2 Capsules by mouth in the morning and 2 Capsules before bedtime. 360 Capsule 1 4 6:26 AM EST 04/18/20 24 Active metOLazone 2.5 MG Oral Tablet (Zaroxolyn)Indicat ions:Hypertensive 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 [...] 025 Active Carvedilol 25 MG Oral Tablet (Coreg)Indications :HTN, goal below 140/90 TAKE ONE TABLET BY MOUTH EVERY MORNING AND TAKE ONE TABLET BY MOUTH BEFORE BEDTIME 200 Tablet 3 5 11:04 AM EST 05/17/20 24 025 Active documented as of this encounter (statuses as of 08/25/2024) Active Problems Patient Care Coordination No te Formatting of this note migh t be different from the original. Heart Failure Self-Management and Exacerbation Plan "RED FLAG" HF Symptoms: Leg Swelling Abdominal Bloating Increased dyspnea on exertion Increased shortness of breath at rest Orthopnea Remote Patient Monitoring Vendor: [facility] [...] in the Comments) Remote Patient Monitoring Vendor: Sitemasher Device(s): Connected Scale Self - Management Plan [...] and RDN Other specified peripheral vascular diseases 02/12/2024 Coronary artery calcification seen on CT scan 07/25/1908/01/2024 Sacroiliitis 09/02/2022 10/20/2023 Type 2 diabetes mellitus [...] better controlled recently. Monitor using freestyle Cindy. Assessment & Plan (12/19/2022 11:13 AM [...] serious comorbidity 07/11/2019 BMI 40.0-44.9, adult 04/18/2019 0809/2 024 Overview: Per Obesity protocol - ICD-10 [...] yrs 01/04/2018,08/03/2017,07/03 Pneumococcal Conjugate Vacci ne, 20-valent ([id number]) 06/09/2022 Pneumococcal Polysaccharide PPV23 (Pneumovax) 03/06/2020 RSV [...] money to buy more. Never true 05/02/20 Within the past 12 months, t he [...] Telephone Encounter - Wilfredo Mulligan DO - 05/26/2024 9:01 AM EST [facility] Remote Medical Command [employer] [facility] Subprogram: Focused Care Management (3-9 months) Recommendations: I reviewed this with [facility] operations in Mar. This would be a removal from the CC365 program and transition to [facility] Program for scale, BP cuff, Pulse Ox, etc. This was supposed to happen in Mar - please see my encounters from then Orders: No orders of the defined types were placed in this encounter. To Do: Please see below for follow up items to be completed and correspondence: Telephonic ROSCOE Parekh please work on the following: see above Wilfredo Mulligan DO Remote Medical Command - [facility] 05/26/2024 Scheduled appointments in the next 60 days: Future Appointments-next 60 days Date/Time Provider Specialty Dept Phone 05/30/2024 1:00 PM [place], Pharmacist Cardiology [facility] Arrive at: Patient's Home [phone] 05/30/2024 2:20 PM (Arrive by 2:05 PM) Shviani Magallon MD Nephrology [phone] 05/31/2024 3:30 PM Mery Calderon RDN [facility] [phone] 06/28/2024 2:30 PM Love Stevens, RN [facility] [phone] 07/01/2024 2:20 PM (Arrive by 2:05 PM) Igor Mcconnell DO Family Medicine [phone] 08/08/2024 9:30 AM Nurse [place] Annual Well[facility] Ancillary [phone] 10/27/2024 1:00 PM (Arrive by 12:45 PM) Lindsey Sheikh CRNP Sleep Disorders [phone] * Telephone Encounter - Janeth Kelley LPN - 05/25/2024 12:57 PM EST Received Im request to assist w coordination of [facility] POX and scale. Pt is already enrolled in BP monitoring w [facility]. In jaguar text to Pulse team- It is not possible for pt to have monitoring by 2 separate locations/programs. Pt is actively using an [facility] scale. Shall we continue [facility] until [facility] monitoring is completed? documented in this encounter Plan of Treatment Upcoming Encounters Date Type Department Care Team (Late st Contact Info) Description 08/25/2024 10:15 AM EST Scheduled Telephone [facility], [facility] [address] [facility] [place] [address] [facility], Nurse [facility] [address] [facility] [place] [address] 08/30/2024 8:30 AM EST Home Visit [facility], [facility] [address] [facility] [place] [address] Love Stevens RN 132 [facility] [place] [address] 09/08/2024 11:10 AM EST Telemedicine Family Practice [address] [place] [address] 293 [place] [address] College, Pharmacist [address] [place] [address], [place] [address] 09/27/2024 11:30 AM EDT Telemedicine Cardiology [facility] [place] [address] [place] [address] [place] [address], Pharmacist Cardiology [facility] [address] [place] [address] 09/30/2024 2:20 PM EDT Office Visit Family Practice [address] [place] [address] 293 [place] [address] Igor Mcconnell, 293 [place] [address] 10/27/2024 1:00 PM EDT Office Visit Sleep Disorders Ctr [facility] 132 [facility] [place] [phone] Lindsey Sheikh CRNP [address] [place] [address] 11/18/2024 2:00 PM EDT Office Visit Nephrology [address] [place] [address] ZeLuisa reyes PA-C [address] [place] [address] 08/09/2025 10:30 AM EST Nurse Only Ancillary [address] [place] [address] [place], Nurse Annual [address] [place] [address] Scheduled Procedures Name Priority Associated Diagnoses Date/Ti me COLONOSCOPY FLEXIBLE PROXIMA L DIAGNOSTIC Recall History [...] Nephrology Referral 05/30/2025 05/30/2024 Colonoscopy 06/13/2025 06/13/2024, 03/2024, 01/01/2018, Additional history exists Colorectal Cancer Screening 06/13/2025 O2 ASSESSMENT COMPLETED IN PAST YEAR FOR COPD 06/13/2025 06/13/2024 Arreola's Esophagus Surveilance 06/16/2025 06/16/2022, 06/16/2022, 03/20/2022, Additional history exists Hgb 07/01/2025 07/01/2024, 02/2024, 03/11/2024, Additional history exists Diabetic Eye [...] this encounter Medical Devices Implanted Type Area Quality Control Associate Device Identifier Shelf Expiration Date Model / Serial / Lot Lens Intraoc 21.0 - [id number] - [id number] Implanted:Qty: 1 on 01/22/2017 by Cheko Mcnamara MD at OR [facility] Right: Eye [employer] 08/05/2021 [id number] / [id number] / [id number] Lens Intraoc 21.5 - [id number] - [id number] Implanted:Qty: 1 on 02/03/2017 by Cheko Mcnamara MD at OR [facility] Left: Eye [employer]OM[employer] 09/02/2021 [id number] / [id number] / [id number] Hemostatic Clip Res 235cm - [id number] Implanted:Qty: 4 on 06/13/2024 by José Miguel Sifuentes MD at ENDOSCOPY [facility] [employer] : ENDOSCOPY 10/12/2026 [id number] / / [id number] Hemostatic Clip Res 235cm - [id number] Implanted:Qty: 4 on 06/13/2024 by José Miguel Sifuentes MD at ENDOSCOPY [facility] [employer] : ENDOSCOPY 03/18/2027 [id number] / / [id number] documented as of this encounter Advance Directives [...] and were consensually agreed upon. Care Teams Quality Control Associate Relationship Specialty Start Date End Date Igor Mcconnell DO [address] [place] [address] PCP - General Internal Medicine 02/12/24 documented as of this encounter
--- OUTSIDE RECORDS SUMMARY | 2024-08-26 02:20 | External Medical Summary | Summary of Care ---
Author Name Unknown Organization [facility] Address [address] [facility] [place] [address] Phone [phone] Care Team Providers Care Service Delivery Management Consultant Name Role Phone Igor Mcconnell DO Primary Care Provider [phone] Reason for Visit * Reason Onset Date Comments [facility]: Maintenance 03/25/2024 Encounter Details Date Type Department Care Team (Late st Contact Info) Description 03/25/2024 12:15 PM EDT Scheduled Telephone [facility], [facility] [address] [place] [address] Coordinator, [facility] [address] [place] [address] Allergies Active Allergy Reactions Criticality Noted Date Comments Metolazone Renal complications 11/10/2023 Note prior DTP with metolazone resulted in acute renal failure Other Allergy (See Comments) Rash Low 10/13/2022 1+ cocamidopropyl betaine Sglt2 Inhibitors Other (Please comment) High 09/04/2020 Genital infection Sulfa Antibiotics Rash 10/15/2016 documented as of this encounter (statuses as of 07/27/2024) Medications Aspirin 81 MG Tablet Take 1 [...] 38 UNITS WITH DINNER PLUS CORRECTION PER [facility] OR DIRECTED UP TO 120 UNITS PER DAY 120 mL 3 4 11:17 AM EST 03/21/20 24 Active DIURETIC TITRATION PLAN If no improvement on day 3, contact [facility] for possible home visit 1 Each 03/24/20 24 Active Evolocumab 140 MG/ML Subcutaneous Solution Auto-injector (Repatha SureClick)Indicati ons:Dyslipidemia, goal LDL below 100,Mixed dyslipidemia Inject 140 mg under the skin every 14 days. 6 mL 3 4 11:42 AM EST 03/24/20 24 Active Additional Information Patient taking differently:140 mg Subcutaneous [id number],Om Fridays, Reported on 07/26/2024 documented as of this encounter (statuses as of 07/27/2024) Active Problems Patient Care Coordination No te Formatting of this note migh t be different from the original. Heart Failure Self-Management and Exacerbation Plan "RED FLAG" HF Symptoms: Leg Swelling Abdominal Bloating Increased dyspnea on exertion Increased shortness of breath at rest Orthopnea Remote Patient Monitoring Vendor: [facility] [place](s): Connected Scale Self - Management Plan [...] IV Lasix Problem Noted Date Diagnosed Date Gout, arthropathy 07/01/2024 Hepatic cirrhosis 02/12/2024 Type 2 diabetes mellitus wit h stage 4 chronic kidney disease, with long-term current use of insulin 02/12/2024 Uncontrolled type 2 diabetes mellitus with hyperglycemia, with long-term current use of insulin 10/20/2023 Coronary artery calcification seen on CT scan Chronic obstructive pulmonary disease 01/21/2023 Overview (07/25/2023): [...] in the Comments) Remote Patient Monitoring Vendor: [employer] Device(s): Connected Scale Self - Management Plan Double dose of Torsemide for 3 days Exacerbation Plan BMP Chest X-Ray Additional Comments: Recommended using double torsemide for 3 days in a row, rather than 1 day like he has been doing Continue using [employer] scale Low sodium diet Assessment & Plan [...] as of this encounter (statuses as of 07/27/2024) Resolved Problems Problem Noted Date Diagnosed Date [...] RDN Other specified peripheral vascular diseases 02/12/2024 Sacroiliitis 09/02/2022 10/20/2023 Type 2 diabetes mellitus [...] has been better controlled recently. Monitor using [employer] Cindy. Assessment & Plan (12/19/2022 11:13 AM [...] as of this encounter (statuses as of 07/27/2024) Immunizations Name Administration Dates Next Due COVID-19 mRNA, LNP-s, No Pre serve, 2-Dose Series (Moderna) 12/10/2020,11/12/2020 Hepatitis B, 20+ yrs 01/04/2018,08/03/2017,07/03 Pneumococcal Conjugate Vacci ne, 20-valent ([id number]) 06/09/2022 Pneumococcal Polysaccharide PPV23 (Pneumovax) 03/06/2020 RSV [...] No 05/02/2024 Does the household have a [facility] of income? (Household - for ages [...] 05/02/2024 Transportation Needs Answer Date Record ed READ ONLY Do you have troubl e getting a ride to medical visits or work? Never True 05/02/2024 Does your family have a hard [...] place to sleep at night? No 05/02/2024 READ ONLY Do you think you a re at risk of becoming homeless? No 05/02/2024 Does your family worry about paying [...] ages 0-17 years) Not on file 05/02/2024 Sex and Gender Information Value Date Recorded Sex Assigned at Male 12/06/2018 8:36 AM EDT Legal Sex Male 12:32 PM EDT Gender Identity Male 12/06/2018 8:36 AM EDT Sexual Orientation Straight 12/06/2018 8: 36 AM EDT documented as of this encounter Miscellaneous Notes * Telephone Encounter - Janeth Kelley LPN - 03/25/2024 10:02 AM EDT Images from the original note were not included. [facility] Telephonic Nurse Follow-Up Call [facility] Subprogram: Focused Care Management (3-9 months) Follow Up Call Type: 24 hour follow up Acute issue requiring follow-up call: Remote Patient Monitoring Trigger Heart Failure Exacerbation Objective: 03/16/2024 2:50 PM 03/11/2024 8:19 AM 03/03/2024 3:04 PM 03/01/2024 2:23 PM 02/29/2024 2:43 PM VITALS ACROSS ENCOUNTERS BP 124/60 122/68 130/54 120/60 144/62 Pulse 72 62 67 70 70 Weight 124.2 kg 130.6 kg 132.2 kg 130.6 kg BMI 39.05 BMI 37.15 kg/m2 39.06 kg/m2 39.53 kg/m2 39.06 kg/m2 Remote Patient Monitoring: AMC Scale: Wt decreased 3.3 lbs Oxygen Needs: NO supplemental oxygen needs identified DME Needs: NO DME needs identified Medications: Current DTP: Add metolazone (Zaroxolyn) 2.5-5mg for 2 days. If using a potassium supplement, doublethe dose of the supplement will be given on the day of and on the day after the metolazone Subjective: Condition Status: Improvement in symptoms but not at baseline Current Concerns: Spokee with pt feeling better, edema improving. Planning another dose of Metolazone today. Pt reports his happy wt is ~271. Disposition: Weekend call scheduled Future Visits Scheduled: Future Appointments-next 60 days Date/Time Provider Specialty Dept Phone 03/25/2024 12:15 PM Coordinator, [facility] [phone] 04/15/2024 8:30 AM Mery Calderon RDN [facility] [phone] 05/09/2024 1:40 PM (Arrive by 1:25 PM) Shivani Magallon MD Nephrology [phone] 05/30/2024 1:00 PM Gael Zuniga Cardiology [facility] Arrive at: Patient's Home [phone] 07/01/2024 2:20 PM (Arrive by 2:05 PM) Igor Mcconnell DO Family Medicine [phone] 08/08/2024 9:30 AM [place], Nurse [facility] Anc[facility] [phone] 10/27/2024 1:00 PM (Arrive by 12:45 PM) Lindsey Shekih CRNP Sleep Disorders [phone] Janeth Kelley LPN documented in this encounter Plan of Treatment Upcoming Encounters Date Type Department Care Team (Late st Contact Info) Description 08/01/2024 2:20 PM EST Office Visit Family Practice [address] [place] [address] [address] [place] [phone] Igor Mcconnell, [address] [place] [address] 08/01/2024 3:00 PM EST Office Visit Family Practice [address] [facility] [address] [place] [phone] College, Pharmacist [address] [place] [address] 08/08/2024 9:30 AM EST Nurse Only Ancillary [address] [place] [address] [place] Nurse Annual [address] [place] [address] 08/30/2024 8:30 AM EST [facility] [place], [facility] [address] [facility] [place] [address] Love Stevens, ANNE MARIE [address] [facility] [place] [address] 09/27/2024 11:30 AM EDT Telemedicine Cardiology [facility], [place] [address] [place] [address] [facility], Pharmacist Cardiology [place] [address] [place] [address] 10/27/2024 1:00 PM EDT Office Visit [facility] [place] [address] [place] [phone] Lindsey Sheikh CRNP [address] [place] [address] 11/18/2024 2:00 PM EDT Office Visit Nephrology [address] [place] [address] ZeLuisa reyes PA-C [address] [place] [address] Scheduled Procedures Name Priority Associated Diagnoses Date/Ti me COLONOSCOPY FLEXIBLE PROXIMA L DIAGNOSTIC Recall History of colonic polyps Health Maintenance Due Date Last Done Comments Alpha-1 Antitrypsin 1977 Cologuard 02/09/2004 Fecal Occult Blood Test 02/09/2004 Sigmoidoscopy 02/09/2004 COVID-19 Vaccine ( season) 2024 12/10/2020, 11/12/2020 Depression Screening 08/05/2024 08/05/2023 Diabetic Foot Exam 10/19/2024 10/20/2023, 0 09/02/2022, 08/16/2021, Additional history exists GFR 12/30/2024 07/01/2024, 12/0 03/2024, 05/26/2024, Additional history exists HbA1c 12/30/2024 07/01/2024, 08/0 03/2024, 10/21/2023, Additional history exists PTH 05/13/2025 05/13/2024, 08/3 07/2021, 09/12/2020 Phosphate 05/13/2025 05/13/2024, 042 08/2023, 10/23/2023, Additional history exists Albumin/Creatinine Ratio 05/18/2025 024, 05/13/2024, 06/11/2023, Additional history exists Diabetic Eye Exam 05/19/2025 05/19/2024, , 04/11/2024, Additional history exists Nephrology Referral 05/30/2025 05/30/2024 Colonoscopy 06/13/2025 06/13/2024, 03/2024, 01/01/2018, Additional history exists Colorectal Cancer Screening 06/13/2025 O2 ASSESSMENT COMPLETED IN PAST YEAR FOR COPD 06/13/2025 06/13/2024 Arreola's Esophagus Surveilance 06/16/2025 06/16/2022, 06/16/2022, 03/20/2022, Additional history exists Hgb 07/01/2025 07/01/2024, 02/2024, 03/11/2024, Additional history exists DTap/Tdap Vaccines (2 - Td or Tdap) [...] this encounter Medical Devices Implanted Type Area Wire Coiner Device Identifier Shelf Expiration Date Model / Serial / Lot Lens Intraoc 21.0 - [id number] - [id number] Implanted:Qty: 1 on 01/22/2017 by Cheko Mcnamara MD at OR [facility] Right: Eye [employer] 08/05/2021 [id number] / [id number] / [id number] Lens Intraoc 21.5 - [id number] - [id number] Implanted:Qty: 1 on 02/03/2017 by Cheko Mcnamara MD at OR [facility] Left: Eye [employer] 09/02/2021 [id number] / [id number] / [id number] Hemostatic Clip Res 235cm - [id number] Implanted:Qty: 4 on 06/13/2024 by José Miguel Sifuentes MD at ENDOSCOPY [facility] : ENDOSCOPY 10/12/2026 [id number] / / [id number] Hemostatic Clip Res 235cm - [id number] Implanted:Qty: 4 on 06/13/2024 by José Miguel Sifuentes MD at ENDOSCOPY [facility] : ENDOSCOPY 03/18/2027 [id number] / / [id number] documented as of this encounter Advance Directives [...] were consensually agreed upon. Care Teams Service Delivery Management Consultant Relationship Specialty Start Date End Date Igor Mcconnell DO [address] [facility] [address] PCP - General Internal Medicine 02/12/24 documented as of this encounter
--- OUTSIDE RECORDS SUMMARY | 2024-08-26 02:20 | External Medical Summary | Summary of Care ---
Author Name Unknown Organization [facility] Address [address] [facility] [place] [address] Phone [phone] Care Team Providers Care Aquaculture And Fisheries Professor Name Role Phone Igor Mcconnell DO Primary Care Provider Encounter Details Date Type Department Care Team (Late st Contact Info) Description 08/24/2024 11:30 AM EST [facility] [address] [facility] [place] [address] Love Stevens RN [address] [facility] [address] Hypertensive heart and kidney disease with chronic [...] 38 UNITS WITH DINNER PLUS CORRECTION PER [facility] OR DIRECTED UP TO 120 UNITS PER DAY 120 mL 3 4 11:17 AM EST 03/21/20 24 Active DIURETIC TITRATION PLAN If no improvement on day 3, contact [facility] for possible home visit 1 Each 03/24/20 24 Active Evolocumab 140 MG/ML Subcutaneous Solution Auto-injector (Repatha SureClick)Indication s:Dyslipidemia, goal LDL below 100,Mixed dyslipidemia Inject 140 mg under the skin every 14 days. 6 mL 3 4 11:42 AM EST 03/24/20 24 Active Additional Information Patient taking differently:140 mg Subcutaneous [id number],Om Fridays, Reported on 08/24/2024 Unifine Pentips 31G X 8 MM (Insulin Pen Needle)Indications:T ype 2 diabetes mellitus with hemoglobin A1c goal of less than 7.0% (HCC) USE TO INJECT INSULINS 5 TIMES DAILY 500 Each 3 5 5:15 PM EST 04/18/20 24 Active [id number]-7-[id number] Ethyl Esters 1 GM Oral Capsule (Lovaza) [...] A1c goal of less than 7.0% ([facility]) Inject 116 Units under the skin in the morning and 116 Units in the evening. 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 Monitor using Gradient X Cindy. Assessment & Plan (12/19/2022 11:13 AM [...] yrs 01/04/2018,08/03/2017,07/03 Pneumococcal Conjugate Vacci ne, 20-valent ([id number]) 06/09/2022 Pneumococcal Polysaccharide PPV23 (Pneumovax) 03/06/2020 RSV [...] AM EDT documented as of this encounter Last Filed Vital Signs Vital Sign Reading Time Taken Comments Blood Pressure 132/74 08/24/2024 11:20 AM EST Pulse 64 08/24/2024 11:20 AM EST Temperature 36.1 C (97 F) 08/24/2024 11: 20 AM EST Respiratory Rate 18 08/24/2024 11:2 0 AM EST Oxygen Saturation 98% 08/24/2024 11: 20 AM EST Inhaled Oxygen Concentration - - Weight 122.4 kg (269 lb 12.8 oz) 2024 11:20 AM EST Height - - Body Mass Index 36.34 08/08/2024 9:45 AM EST documented in this encounter Progress Notes * Love Stevens RN - 08/24/2024 10:47 AM EST Images from the original note were not included. Current Concerns: Patient seen for acute visit- received message from patient reporting, " I feel like my kidneys aresick again." " I don't feel well at all." Recent weights- see below. Has required two doses of metolazone in last nine days. He is following direction of representative- takes one dose with 3lb weight gain/24 hours Metolazone is effective. Reports nausea and vomiting last evening. Has not eaten or drank anything since 5:30pm. Is tolerating clear soda to present this am. Had chicken yesterday that wasn't thoroughly cooked- feels as though this contributed to his N&V BRAT diet encouraged Low sodium Gently hydrate- fluid restriction VS wnl Lungs clear but diminished Sob with exertion No LE edema noted Voiding without difficulty Bowels wnl Appetite poor/fair TT to Dr. Mulligan BMP, Mg Hold Torsemide today- resume tomorrow BMP, Mg obtained left antecubital- labs taken to [facility] Synopsis SmartLink Most Recent Value Past ~8 weeks 08/24/2024 08:55 08/23/2024 08/22/2024 Remote Monitoring Intermittent Vitals Systolic BP 137 mm/Hg CH:VITAL_READING_TYPE=SPOT CH:PERIPHERAL_BRAND=IHEALTH 08/23/2024 137 mm/Hg CH:VITAL_READING_TYPE=SPOT CH:PERIPHERAL_BRAND=IHEALTH 125 mm/Hg CH:VITAL_READING_TYPE=SPOT CH:PERIPHERAL_BRAND=IHEALTH Diastolic BP 68 mm/Hg CH:VITAL_READING_TYPE=SPOT CH:PERIPHERAL_BRAND=IHEALTH 08/23/2024 68 mm/Hg CH:VITAL_READING_TYPE=SPOT CH:PERIPHERAL_BRAND=IHEALTH 70 mm/Hg CH:VITAL_READING_TYPE=SPOT CH:PERIPHERAL_BRAND=IHEALTH Pulse 77 bpm CH:VITAL_READING_TYPE=SPOT CH:PERIPHERAL_BRAND=NONIN 08/23/2024 77 bpm CH:VITAL_READING_TYPE=SPOT CH:PERIPHERAL_BRAND=NONIN 67 bpm CH:VITAL_READING_TYPE=SPOT CH:PERIPHERAL_BRAND=NONIN Oxygen Sat 96 % CH:VITAL_READING_TYPE=SPOT CH:PERIPHERAL_BRAND=NONIN 08/23/2024 96 % CH:VITAL_READING_TYPE=SPOT CH:PERIPHERAL_BRAND=NONIN 94 % CH:VITAL_READING_TYPE=SPOT CH:PERIPHERAL_BRAND=NONIN Weight 122.3 kg (269 lb 8.7 oz) CH:VITAL_READING_TYPE=SPOT CH:PERIPHERAL_BRAND=WITHINGS 08/24/2024 122.3 kg (269 lb 8.7 oz) CH:VITAL_READING_TYPE=SPOT CH:PERIPHERAL_BRAND=WITHINGS 123.8 kg (272 lb 15.1 oz) CH:VITAL_READING_TYPE=SPOT CH:PERIPHERAL_BRAND=WITHINGS 124.2 kg (273 lb 11.4 oz) CH:VITAL_READING_TYPE=SPOT CH:PERIPHERAL_BRAND=WITHINGS More values are hidden. Newest values shown. Go to activity for more data. Physical Exam: Physical Exam Constitutional: Appearance: Normal appearance. He is ill-appearing. Cardiovascular: Rate and Rhythm: Normal rate and [...] and Affect: Mood normal. Behavior: Behavior normal. Review of Systems: Review of Systems Constitutional: Negative. Respiratory: Positive for shortness of breath. Cardiovascular: Negative. Gastrointestinal: Negative. Genitourinary: Negative. Musculoskeletal: Negative. Skin: Negative. Neurological: Positive for weakness. Hematological: Negative. Psychiatric/Behavioral: Negative. Care Plan Goal Progress: Orders Placed: No orders of the defined types were placed in this encounter. Medications Given: Care Gaps: Care Gaps Care gaps closed this contact: Education;Lab/radiology testing coordinated (08/24/241719) Type of education: Clinical/disease (08/24/241719) documented in this encounter Plan of Treatment Upcoming Encounters Date Type Department Care Team (Late st Contact Info) Description 08/25/2024 10:15 AM EST Scheduled Telephone [facility], [address] [place] [address] [place], Nurse [facility] [address] 08/30/2024 8:30 AM EST Home Visit [facility], [facility] 132 [facility] [place] [address] Love Stevens RN 132 [place] [address] 09/08/2024 11:10 AM EST Telemedicine Family Practice [address] [place] [phone] College, Pharmacist [address] [place] [phone] 09/27/2024 11:30 AM EDT Telemedicine Cardiology [facility] [place] [address] [place] [address] [place] [address], Pharmacist Cardiology [facility] [address] [place] [address] 09/30/2024 2:20 PM EDT Office Visit Family Practice [address] [place] [phone] Igor Mcconnell, DO [address] [place] [address] 10/27/2024 1:00 PM EDT [facility] [phone] Lindsey Sheikh CRNP [address] [facility] [place] [address] 11/18/2024 2:00 PM EDT Office Visit Nephrology [address] [place] [address] Zemaitis, Luisa Guzman PA-C [address] [place] [address] 08/09/2025 10:30 AM EST Nurse Only Ancillary [address] [place] [address] [place], Nurse [address] [place] [address] Scheduled Procedures Name Priority Associated Diagnoses Date/Ti [...] 03/20/2022, Additional history exists Hgb 07/01/2025 07/01/2024, 11/0 02/2024, 03/11/2024, Additional history exists Diabetic Eye [...] encounter Medical Devices Implanted Type Area Gun Numberer Device Identifier Shelf Expiration Date Model / Serial / Lot Lens Intraoc 21.0 - [id number] - [id number] Implanted:Qty: 1 on 01/22/2017 by Cheko Mcnamara MD at OR [facility] Right: Eye [employer] 08/05/2021 [id number] / [id number] / [id number] Lens Intraoc 21.5 - [id number] - [id number] Implanted:Qty: 1 on 02/03/2017 by Cheko Mcnamara MD at OR [facility] Left: Eye [employer] 09/02/2021 [id number] / [id number] / [id number] Hemostatic Clip Res 235cm - [id number] Implanted:Qty: 4 on 06/13/2024 by José Miguel Sifuentes MD at ENDOSCOPY [facility] [employer] : ENDOSCOPY 10/12/2026 [id number] / / [id number] Hemostatic Clip Res 235cm - [id number] Implanted:Qty: 4 on 06/13/2024 by José Miguel Sifuentes MD at ENDOSCOPY [facility] [employer] : ENDOSCOPY 03/18/2027 [id number] / / [id number] documented as of this encounter Procedures Procedure Name Priority Date/Time Associated Diagnosis Comments COMPREHENSIVE METABOLIC PANEL Routine 08/24/2024 11:58 AM EST 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) MAGNESIUM Routine 08/24/2024 11:58 AM EST 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) documented in this encounter Results * MAGNESIUM (08/24/2024 11:58 AM EST) Magnesium 2.6 1.5 - 2.6 mg/dL 08/24/2024 10:50 PM EST [facility] Blood Venous blood specimen / Unknown Venipuncture / Unknown 08/24/2024 11:58 AM EST 08/24/2024 12:02 PM EST us Wilfredo Mulligan DO LAB BLOOD ORDERABLES Final Re sult [facility] [address] [place] [address] * (ABNORMAL) COMPREHENSIVE METABOLIC PANEL (08/24/2024 11:58 AM EST) BUN 78(H) 6 - 20 mg/dL 08/24/2024 10:50 PM EST [facility] CREATININE 4.0(H) 0.6 - 1.2 mg/dL 08/24/2024 10:50 PM EST [facility] EGFR 16(L) >=60 mL/min 08/24/2024 10:50 PM EST [facility] Comment:eGFR is calculated b ased on the CKD-EPI 2020 equation. SODIUM 140 135 - 146 mmol/L 08/24/2024 10:50 PM EST [facility] POTASSIUM 4.3 3.5 - 5.1 mmol/L 08/24/2024 10:50 PM EST [facility] CHLORIDE 95(L) 98 - 107 mmol/L 08/24/2024 10:50 PM EST [facility] CO2 28 22 - 32 mmol/L 08/24/2024 10:50 PM EST [facility] ANION GAP 17(H) 7 - 15 mmol/L 08/24/2024 10:50 PM EST [facility] GLUCOSE 115 70 - 120 mg/dL 08/24/2024 10:50 PM EST [facility] Albumin 4.7 3.8 - 5.0 g/dL 08/24/2024 10:50 PM EST [facility] AST 85(H) 10 - 50 U/L 08/24/2024 10:50 PM EST [facility] Alkaline Phosphatase 128 35 - 130 U/L 08/24/2024 10:50 PM EST [facility] Bilirubin, Total 1.4(H) <=1.2 mg/dL 08/24/2024 10:50 PM EST [facility] CALCIUM 10.3(H) 8.4 - 10.2 mg/dL 08/24/2024 10:50 PM EST [facility] Protein 8.4(H) 6.0 - 8.3 g/dL 08/24/2024 10:50 PM EST [facility] ALT 92(H) 10 - 50 U/L 08/24/2024 10:50 PM EST [facility] Blood Venous blood specimen / Unknown Venipuncture / Unknown 08/24/2024 11:58 AM EST 08/24/2024 12:02 PM EST us Wilfredo Mulligan DO LAB BLOOD ORDERABLES Final Re sult [facility] [address] [place] [address] documented in this encounter Visit Diagnoses Diagnosis Hypertensive 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 (HCC)- Primary CHAPINCITO on CPAP Obstructive sleep apnea (adult) (pediatric) Type 2 diabetes mellitus with stage 3b chronic kidney disease, with long-term current use of insulin (HCC) Advanced care planning/counseling discussion- Primary Other specified counseling Hypertensive 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 (HCC) CHAPINCITO on CPAP Obstructive sleep apnea (adult) (pediatric) Mixed dyslipidemia Mixed hyperlipidemia Type 2 diabetes mellitus with hemoglobin A1c goal of less than 8.0% (HCC) Arreola's esophagus with high grade dysplasia Arreola's esophagus Hypertensive 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 (HCC)- Primary Type 2 diabetes mellitus with stage 3b chronic kidney disease, with long-term current use of insulin (HCC) Arreola's esophagus with high grade dysplasia Arreola's esophagus 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)- Primary Chronic obstructive pulmonary disease, unspecified COPD type (HCC) Type 2 diabetes mellitus with stage 3b chronic kidney disease, with long-term current use of insulin (HCC) Mixed dyslipidemia Mixed hyperlipidemia 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)- Primary BMI 40.0-44.9, adult (HCC) Body Mass Index 40.0-44.9, adult 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, unspecified whether half-way insulin use (HCC) Chronic obstructive pulmonary disease, unspecified COPD type (HCC) Sacroiliitis (HCC) Sacroiliitis, not elsewhere classified Other specified peripheral vascular diseases (HCC) Coronary artery calcification seen on CT scan Mixed dyslipidemia Mixed hyperlipidemia 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) documented in this encounter Advance Directives * Full Code (Latest Code Status on File) Date Activated Date Inactivated Comments 02/03/2017 6:20 AM 02/03/2017 12:46 PM This order re flects the patients wishes and were consensually agreed upon. * Full Code Date Activated Date Inactivated Comments 01/22/2017 6:38 AM 01/22/2017 1:19 PM This order r eflects the patients wishes and were consensually agreed upon. Care Teams Aquaculture And Fisheries Professor Relationship Specialty Start Date End Date Igor Mcconnell DO [address] [place] [place] [address] PCP - General Internal Medicine 02/12/24 documented as of this encounter
--- OUTSIDE RECORDS SUMMARY | 2024-08-26 02:20 | External Medical Summary | Summary of Care ---
Author Name Unknown Organization [facility] Address [address] [place] [address] Phone [phone] Care Team Providers Care Ethylene Oxide Panelboard Operator Name Role Phone Igor Mcconnell DO Primary Care Provider [phone] Reason for Visit * Reason Comments Adult Annual Wellness Visit, Subsequent Visit Encounter Details Date Type Department Care Team (Late st Contact Info) Description 08/08/2024 9:30 AM EST Nurse Only Ancillary [address] [place] [address] [place], Nurse [address] [place] [address] Adult Annual Wellness Visit, Subsequent Visit Allergies Active Allergy Reactions Criticality Noted Date Comments Metolazone Renal complications 11/10/2023 Note prior DTP with metolazone resulted in acute renal failure Other Allergy (See Comments) Rash Low 10/13/2022 1+ cocamidopropyl betaine Sglt2 Inhibitors Other (Please comment) High 09/04/2020 Genital infection Sulfa Antibiotics Rash 10/15/2016 documented as of this encounter (statuses as of 08/08/2024) Medications Aspirin 81 MG Tablet Take 1 [...] 38 UNITS WITH DINNER PLUS CORRECTION PER [facility] OR DIRECTED UP TO 120 UNITS PER DAY 120 mL 3 4 11:17 AM EST 03/21/20 24 Active DIURETIC TITRATION PLAN If no improvement on day 3, contact [facility] for possible home visit 1 Each 03/24/20 24 Active Evolocumab 140 MG/ML Subcutaneous Solution Auto-injector (Repatha SureClick)Indication s:Dyslipidemia, goal LDL below 100,Mixed dyslipidemia Inject 140 mg under the skin every 14 days. 6 mL 3 4 11:42 AM EST 03/24/20 24 Active Additional Information Patient taking differently:140 mg Subcutaneous H0UTVCC,Om Fridays, Reported on 08/08/2024 Unifine Pentips 31G X 8 MM (Insulin Pen Needle)Indications:T ype 2 diabetes mellitus with hemoglobin A1c goal of less than 7.0% (HCC) USE TO INJECT INSULINS 5 TIMES DAILY 500 Each 3 5 5:15 PM EST 04/18/20 24 Active [id number]-8-pmma Ethyl Esters 1 GM Oral Capsule (Lovaza) [...] BY MOUTH BEFORE BEDTIME 200 Tablet 3 4 2:43 PM EST 05/17/20 24 025 Active Potassium Chloride Gaviota ER 20 MEQ Oral Tablet Extended Release Take 2 Tablets by mouth in the morning and 2 Tablets before bedtime. 360 Tablet 3 05/30/20 24 Active Spironolactone 25 MG Oral Tablet (Aldactone) Take 1 Tablet by mouth in the morning. 90 Tablet 3 4 1:44 PM EST 05/30/20 24 Active Pravastatin Sodium 20 [...] goal of less than 7.0% ([facility]) Inject 116 Units under the skin in the morning and 116 Units in the evening. 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 2 mL 11 5 9:37 AM EST 08/01/19 25 026 Active documented as of this encounter (statuses as of 08/08/2024) Active Problems Patient Care Coordination No te Formatting of this note migh t be different from the original. Heart Failure Self-Management and Exacerbation Plan "RED FLAG" HF Symptoms: Leg Swelling Abdominal Bloating Increased dyspnea on exertion Increased shortness of breath at rest Orthopnea Remote Patient Monitoring Vendor: [facility] [...] as of this encounter (statuses as of 08/08/2024) Resolved Problems Problem Noted Date Diagnosed Date [...] has been better controlled recently. Monitor using [email or web address] Cindy. Assessment & Plan (12/19/2022 11:13 AM [...] serious comorbidity 07/11/2019 BMI 40.0-44.9, adult 04/18/2019 08/ 024 Overview: Per Obesity protocol - ICD-10 [...] as of this encounter (statuses as of 08/08/2024) Immunizations Name Administration Dates Next Due COVID-19 mRNA, LNP-s, No Pre serve, 2-Dose Series (Moderna) 12/10/2020,11/12/2020 Hepatitis B, 20+ yrs 01/04/2018,08/03/2017,07/03 Pneumococcal Conjugate Vacci ne, 20-valent ([id number]) 06/09/2022 Pneumococcal Polysaccharide PPV23 (Pneumovax) 03/06/2020 RSV [...] 05/02/2024 Does the household have a re gular source of income? (Household - for ages [...] Sign Reading Time Taken Comments Blood Pressure 128/70 08/08/2024 9:45 AM EST Pulse 69 08/08/2024 9:45 AM EST Temperature 36.4 C (97.5 F) 08/08/2024 9:45 AM ES T Respiratory Rate - - Oxygen Saturation 94% 08/08/2024 9:45 AM EST Inhaled Oxygen Concentration - - Weight 128.4 kg (283 lb) 08/08/2024 9:45 AM EST Height 183.5 cm (6' 0.25") 08/08/2024 9:45 AM ES T Body Mass Index 38.12 08/08/2024 9:45 AM EST documented in this encounter Patient Instructions * Patient Instructions* Jessica Rubio RN - 08/08/2024 10:07 AM EST Hi Mr. Delong, As your [...] Due: Health Maintenance Due Topic Date Due Alpha-1 Antitrypsin Never done COVID-19 Vaccine ( season) 2024 Current Medication List: (as of Visit date not found (in office), Visit date not found (telemedicine) ) Current Outpatient Medications Medication Sig Dispense Refill Aspirin 81 MG Tablet Take 1 Tablet by mouth every evening. B Complex Capsule Take 1 Cap by mouth daily. CPAP every night at bedtime. OneTouch Delica Lancets 33G Use 3 times daily - E11.9 (Patient taking differently: Use 3 times daily - E11.9) 300 Each 3 FreeStyle Cindy 2 Sensor Use as directed every 14 days . 6 Each 3 OneTouch Verio In Vitro Strip (Glucose Blood) USE TO TEST BLOOD GLUCOSE 3 TIMES A DAY. DX: E11.9 300 Strip 3 Ondansetron 4 MG Oral Tablet Disintegrating (Zofran) Place 1 Tablet on tongue every 8 hours as needed for Nausea. 30 Tablet 0 Vitamin D 125 MCG (5000 UT) Oral Capsule Take 1 Capsule by mouth in the morning. Coenzyme Q10 200 MG Oral Capsule Take 1 Capsule by mouth at bedtime. Acetaminophen ER 650 MG Oral Tablet Extended Release (Tylenol ER) Take 1-2 Tablets by mouth every 8hours as needed. (Max dose 3000 mg per day) Clotrimazole-Betamethasone 1-0.05 % External Cream (Lotrisone) Apply small amount of cream to scrotal area two times a day 90 g 1 Allopurinol 300 MG Oral Tablet (Zyloprim) Take 1 Tablet by mouth in the morning. 100 Tablet 3 NovoLOG FlexPen 100 UNIT/ML Subcutaneous Solution Pen-injector INJECT UNDER THE SKIN 20 UNITS AT BREAKFAST, 26 UNITS AT LUNCH, 38 UNITS WITH DINNER PLUS CORRECTION PER [facility] OR DIRECTED UP TO120 UNITS PER DAY 120 mL 3 DIURETIC TITRATION PLAN If no improvement on day 3, contact [facility] for possible home visit 1 Each 0 Evolocumab 140 MG/ML Subcutaneous Solution Auto-injector (Repatha B-Bridge InternationalClick) Inject 140 mg under the skin every 14 days. (Patient taking differently: Inject 140 mg under the skin every 14 days. Om Fridays) 6 mL 3 Unifine Pentips 31G X 8 MM (Insulin Pen Needle) USE TO INJECT INSULINS 5 TIMES DAILY 500 Each 3 Rxbcw-8-dsuo Ethyl Esters 1 GM Oral Capsule (Lovaza) Take 2 Capsules by mouth in the morning and 2 Capsules before bedtime. 360 Capsule 1 metOLazone 2.5 MG Oral Tablet (Zaroxolyn) Take 1 tablet by mouth as needed for > 3 lb weight gain in 1 day, or > 5 lb weight gain in 1 week. 100 Tablet 5 Omeprazole 20 MG Oral Capsule Delayed Release (PriLOSEC) TAKE 1 CAPSULE BY MOUTH IN THE MORNING AND1 CAPSULE BEFORE BEDTIME 30 MINUTES BEFORE A MEAL 180 Capsule 1 Carvedilol 25 MG Oral Tablet (Coreg) TAKE ONE TABLET BY MOUTH EVERY MORNING AND TAKE ONE TABLET BY MOUTH BEFORE BEDTIME 200 Tablet 3 Potassium Chloride Gaviota ER 20 MEQ Oral Tablet Extended Release Take 2 Tablets by mouth in the morning and 2 Tablets before bedtime. 360 Tablet 3 Spironolactone 25 MG Oral Tablet (Aldactone) Take 1 Tablet by mouth in the morning. 90 Tablet 3 Pravastatin Sodium 20 MG Oral Tablet (Pravachol) Take 1 Tablet by mouth daily. 30 Tablet 11 Torsemide 20 MG Oral Tablet (Demadex) Take 4 Tablets by mouth 2 times a day. Or take as directed 800 Tablet 3 Insulin Degludec FlexTouch 200 UNIT/ML Subcutaneous Solution Pen-injector Inject 116 Units under the skin in the morning and 116 Units in the evening. 108 mL 2 Mounjaro 2.5 MG/0.5ML Subcutaneous Solution Auto-injector (Tirzepatide) Inject 2.5 mg under the skin once a week. 2 mL 11 No current facility-administered medications for this visit. Current List of Allergies: (as of Visit date not found (in office), Visit date not found (telemedicine) ) Review of patient's allergies indicates: Allergen Reactions Sglt2 Inhibitors Other (Please comment) Genital infection Metolazone Renal complications Note prior DTP with metolazone resulted in acute renal failure Sulfa Antibiotics Rash Other Allergy (See Comments) Rash 1+ cocamidopropyl betaine Most Recent Lab Results: Results for orders placed or performed in visit on 07/18/24 HEPATIC FUNCTION PANEL Result Value Ref Range Albumin 4.5 3.8 - 5.0 g/dL AST 76 (H) 10 - 50 U/L Alkaline Phosphatase 182 (H) 35 - 130 U/L ALT 85 (H) 10 - 50 U/L Bilirubin, Total 0.7 <=1.2 mg/dL Bilirubin, Direct 0.4 (H) 0.0 - 0.3 mg/dL Protein 7.9 6.0 - 8.3 g/dL *Note: Due to a large number of results and/or encounters for the requested time period, some results have not been displayed. A complete set of results can be found in Results Review. Sincerely, Igor Mcconnell, DO 08/08/2024 [employer] [facility] Calendar (as of Visit date not found (in office), Visit date not found (telemedicine) ) Care needs Care needs Last completed Due next Alpha-1 Antitrypsin --- Never done COVID-19 Vaccine ( season) 2020 03/06/2024 Diabetic Foot Exam 10/20/2023 10/19/2024 A1C blood sugar test 07/01/2024 12/30/2024 Kidney Function Test 07/01/2024 12/30/2024 PHOSPHORUS MONITORING 05/13/2024 05/13/2025 PARATHYROID HORMONE MONITORING (KIDNEY DISEASE) 05/13/2024 05/13/2025 Urine albumin/creatinine test 05/18/2024 05/18/2025 Discussion about referral to kidney specialist 05/30/2024 05/30/2025 Colorectal cancer screening (colonoscopy 10 years, sigmoidoscopy 5 years, Cologuard 3 years, stool sample 1 year) 06/13/2024 06/13/2025 Yearly COPD oxygen test 06/13/2024 06/13/2025 Arreola's Esophagus Surveilance 06/16/2022 06/16/2025 ANEMIA MONITORING 07/01/2024 07/01/2025 Diabetic Eye Exam 07/20/2024 07/20/2025 Diphtheria, tetanus & pertussis vaccines (2 - Td or Tdap) 12/29/2016 12/29/2026 As you look over the recommended services, be sure to check with your insurance company to determine what's covered. [employer] is a great tool that helps you review your medical record online, including test results, doctor notes and your health summary. You can also schedule appointments with me and other members of your care team, request prescription refills and ask for advice related to your medical conditions at [email or web address]. With the new year your insurance will offer [employer] incentive gift cards for the following: Flu Education Fall Risk Education Urinary Incontinence Education Physical Activity Education [facility] patients can access incentive list online through [employer] or by calling option #1 documented in this encounter Progress Notes * Jessica Rubio RN - 08/08/2024 9:52 AM EST AD8 Dementia Screening Interview [...] Annual Wellness Visit: Tony Delong is a 64 year old male who presents for an [...] Fair Ht Readings from Last 1 Encounters: 08/08/24 6' 0.25" (1.835 m) Wt Readings from Last 1 Encounters: 08/08/24 283 lb (128.4 kg) Body Mass Index: BMI Greater than 30 Body mass index is 38.12 kg/m. BP Readings from Last 1 Encounters: 08/08/24 128/70 Medical/Surgical/Family History Reviewed: Yes Past Medical History: Diagnosis Date NEMESIO (acute kidney injury) ([facility]) 04/30/2022 NEMESIO (acute kidney injury) ([facility]) 10/20/2023 creat 4.5 [facility] Diabetes ([facility]) Gout, arthropathy 07/01/2024 Heart failure, diastolic, due to HTN ([facility]) 01/25/2021 High blood pressure High cholesterol CHAPINCITO on CPAP 08/18/2017 ?[id number] Sleep apnea, obstructive Past Surgical History: Procedure Laterality Date ANKLE ARTHROSCOPY/SURGERY Right 07/2016 trimalleloar frac--ext fixation f/b ORIF - [facility] [place] [facility] COLONOSCOPY, DIAGNOSTIC (RECTUM) 01/01/2018 adenomatous polyp, repeat 5 yrs/COLONOSCOPY FLEXIBLE PROXIMAL DIAGNOSTIC performed by Dav Yap MD at ENDOSCOPY [facility] COLONOSCOPY, DIAGNOSTIC (RECTUM) 06/13/2024 poor prep/diverticulosis/hemorrhoids/multiple polyps/biopsies show adenomatous polyps/recall 1 year/COLONOSCOPY FLEXIBLE PROXIMAL DIAGNOSTIC performed by José Miguel Sifuentes MD at ENDOSCOPY [facility] EGD, FLEXIBLE, DIAGNOSTIC 11/13/2021 esophageal polyp, gastritis / ESOPHAGOGASTRODUODENOSCOPY (EGD), FLEXIBLE, TRANSORAL, DIAGNOSTIC performed by Emelia Conley DO at ENDOSCOPY [facility] EGD, FLEXIBLE, DIAGNOSTIC N/A 03/20/2022 ESOPHAGOGASTRODUODENOSCOPY (EGD), FLEXIBLE, TRANSORAL, DIAGNOSTIC [place] [facility] [place], FLEXIBLE, DIAGNOSTIC N/A 06/16/2022 ESOPHAGOGASTRODUODENOSCOPY (EGD), FLEXIBLE, TRANSORAL, DIAGNOSTIC performed [place] Darian [place] [facility] [place], FLEXIBLE, ENDO MUCOSAL RESECTION 01/24/2022 GEJ polyp - LGD, HGD / [facility] EGD, W/ENDOSCOPIC US 11/13/2021 [place] w/ HGD, fatty liver / ESOPHAGOGASTRODUODENOSCOPY (EGD), FLEXIBLE, TRANSORAL, ENDOSCOPIC ULTRASOUND performed by Emelia Conley DO at ENDOSCOPY [facility] EGD, W/ENDOSCOPIC US 01/24/2022 bile duct stone, enlarged LN - normal bx, eso mass - [facility]EARM/WRIST SURGERY NEC 1989 LUMBAR / SACRAL EPIDURAL, SINGLE LEVEL 02/04/2018 INJECTION TRANSFORAMINAL EPIDURAL LUMBAR OR SACRAL performed by Uday Masterson DO at OR [facility] REMOVE CATARACT, INSERT LENS PROSTH Right 01/22/2017 right EXTRACAPSULAR CATARACT REMOVAL WITH INTRAOCULAR LENS performed by Cheko Mcnamara MD at OR [facility] REMOVE CATARACT, INSERT LENS PROSTH Left 02/03/2017 left EXTRACAPSULAR CATARACT REMOVAL WITH INTRAOCULAR LENS performed by Cheko Mcnamara MD at OR [facility] SACROILIAC JOINT INJECT W/GUIDANCE 11/20/2021 INJECTION SACROILIAC JOINT performed by Uday Masterson DO at OR [facility] THIGH OR KNEE SURGERY NEC Left 07/2016 [facility]--quad repair US ABDOMEN LIMITED 08/27/2021 Possible cirrhotic liver and also possible fatty metamorphosis of the liver, uncomplicated cholelithiasis Family History Problem Relation Name Age of Onset Neurological Disorder Mother kidney issues and stroke Eye Problems Mother glaucoma No Known Problems Father No Known Problems Brother Celiac disease Son Jeramie Celiac disease Son Seamus dandy walker syndrome Has patient ever had cancer? No Social History Tobacco Use Smoking status: Former Current packs/day: 0.00 Average packs/day: 2.0 packs/day for 13.0 years (26.0 ttl pk-yrs) Types: Cigarettes Start date: 1974 Quit date: [...] Yes Last Physical Exam: Last physical exam: 07/2024 Does patient see primary provider regularly? Yes Does patient see other providers? Yes, Specialist Patient Care Team updated? Yes Review of patient's allergies indicates: Allergen Reactions Sglt2 Inhibitors Other (Please comment) Genital infection Metolazone Renal complications Note prior DTP with metolazone resulted in acute renal failure Sulfa Antibiotics Rash Other Allergy (See Comments) Rash 1+ cocamidopropyl betaine Immunization History Administered Date(s) Administered COVID-19 mRNA, LNP-s, No Preserve, 2-Dose Series (Moderna) 11/12/2020, 12/10/2020 Hepatitis B, 20+ yrs 07/03/2017, 08/03/2017, 01/04/2018 Pneumococcal Conjugate Vaccine, 20-valent (Doespti21) 06/09/2022 Pneumococcal Polysaccharide PPV23 (Pneumovax) 03/06/2020 RSV Vac., Bivalent, Perfusion F, Pf,0.5 Ml (Abrysvo) 02/12/2024 Seasonal Influenza Vac., MDV, IM, 0.5 mL (Fluzone) 04/05/2016 Seasonal Influenza, High Dose, Trivalent, PF, IM (Fluzone HD) 03/11/2024 Seasonal Influenza, PF, 6 M & above, IM , (FluLaval or Fluzone) 08/18/2017, 07/11/2019, 04/18/2020, 03/21/2021, 04/27/2022, 04/01/2023 TDAP (age 10 and older)(Boostrix) 12/29/2016 Zoster Vaccine Recombinant (Shingrix) 01/27/2020, 05/29/2020 Current Outpatient Medications Medication Sig Dispense Refill Aspirin 81 MG Tablet Take 1 Tablet by mouth every evening. B Complex Capsule Take 1 Cap by mouth daily. CPAP every night at bedtime. OneTouch Delica Lancets 33G Use 3 times daily - E11.9 (Patient taking differently: Use 3 times daily - E11.9) 300 Each 3 FreeStyle Cindy 2 Sensor Use as directed every 14 days . 6 Each 3 OneTouch Verio In Vitro Strip (Glucose Blood) USE TO TEST BLOOD GLUCOSE 3 TIMES A DAY. DX: E11.9 300 Strip 3 Ondansetron 4 MG Oral Tablet Disintegrating (Zofran) Place 1 Tablet on tongue every 8 hours as needed for Nausea. 30 Tablet 0 Vitamin D 125 MCG (5000 UT) Oral Capsule Take 1 Capsule by mouth in the morning. Coenzyme Q10 200 MG Oral Capsule Take 1 Capsule by mouth at bedtime. Acetaminophen ER 650 MG Oral Tablet Extended Release (Tylenol ER) Take 1-2 Tablets by mouth every 8hours as needed. (Max dose 3000 mg per day) Clotrimazole-Betamethasone 1-0.05 % External Cream (Lotrisone) Apply small amount of cream to scrotal area two times a day 90 g 1 Allopurinol 300 MG Oral Tablet (Zyloprim) Take 1 Tablet by mouth in the morning. 100 Tablet 3 NovoLOG FlexPen 100 UNIT/ML Subcutaneous Solution Pen-injector INJECT UNDER THE SKIN 20 UNITS AT BREAKFAST, 26 UNITS AT LUNCH, 38 UNITS WITH DINNER PLUS CORRECTION PER [facility] OR DIRECTED UP TO120 UNITS PER DAY 120 mL 3 Evolocumab 140 MG/ML Subcutaneous Solution Auto-injector (Repatha SureClick) Inject 140 mg under the skin every 14 days. (Patient taking differently: Inject 140 mg under the skin every 14 days. Om Fridays) 6 mL 3 Unifine Pentips 31G X 8 MM (Insulin Pen Needle) USE TO INJECT INSULINS 5 TIMES DAILY 500 Each 3 Wvkpp-1-sgck Ethyl Esters 1 GM Oral Capsule (Lovaza) Take 2 Capsules by mouth in the morning and 2 Capsules before bedtime. 360 Capsule 1 metOLazone 2.5 MG Oral Tablet (Zaroxolyn) Take 1 tablet by mouth as needed for > 3 lb weight gain in 1 day, or > 5 lb weight gain in 1 week. 100 Tablet 5 Omeprazole 20 MG Oral Capsule Delayed Release (PriLOSEC) TAKE 1 CAPSULE BY MOUTH IN THE MORNING AND1 CAPSULE BEFORE BEDTIME 30 MINUTES BEFORE A MEAL 180 Capsule 1 Carvedilol 25 MG Oral Tablet (Coreg) TAKE ONE TABLET BY MOUTH EVERY MORNING AND TAKE ONE TABLET BY MOUTH BEFORE BEDTIME 200 Tablet 3 Potassium Chloride Gaviota ER 20 MEQ Oral Tablet Extended Release Take 2 Tablets by mouth in the morning and 2 Tablets before bedtime. 360 Tablet 3 Spironolactone 25 MG Oral Tablet (Aldactone) Take 1 Tablet by mouth in the morning. 90 Tablet 3 Pravastatin Sodium 20 MG Oral Tablet (Pravachol) Take 1 Tablet by mouth daily. 30 Tablet 11 Torsemide 20 MG Oral Tablet (Demadex) Take 4 Tablets by mouth 2 times a day. Or take as directed 800 Tablet 3 Insulin Degludec FlexTouch 200 UNIT/ML Subcutaneous Solution Pen-injector Inject 116 Units under the skin in the morning and 116 Units in the evening. 108 mL 2 DIURETIC TITRATION PLAN If no improvement on day 3, contact [facility] for possible home visit 1 Each 0 Mounjaro 2.5 MG/0.5ML Subcutaneous Solution Auto-injector (Tirzepatide) Inject 2.5 mg under the skin once a week. 2 mL 11 No current facility-administered medications for this visit. 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) Arreola's esophagus with high grade dysplasia Type 2 diabetes mellitus with peripheral vascular disease (HCC) Type 2 diabetes mellitus with diabetic polyneuropathy, with long-term current use of insulin (HCC) 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) Chronic heart failure with preserved ejection fraction (HCC) Chronic obstructive pulmonary disease (HCC) Uncontrolled type 2 diabetes mellitus with hyperglycemia, with long-term current use of insulin (HCC) Hepatic cirrhosis (HCC) Type 2 diabetes mellitus with stage 4 chronic kidney disease, with long-term current use of insulin(HCC) Gout, arthropathy Essential (primary) hypertension Calcification of coronary artery Medication Compliance: Patient is able to obtain [...] Screening: does not exercise regularly Nutrition Assessment: twice daily, main meal at 4, snacks Pain Screening: Are you having any pain? Yes. Pain Scale: 1 out of 10; Sleep Screening Tool 'STOP': Do you snore? Yes Do you feel fatigued during the day? No Do you wake up feeling like you haven't slept? Yes Have you been told you stop breathing at night? Yes Do you gasp for air or choke while sleeping? Yes Have you been told you have Sleep Apnea? Yes Do you have high blood pressure or are on medication(s) to control high blood pressure? Yes SCORE: If you check YES to two or more questions, make a referral for Obstructive Sleep Apnea Patient does use cpap nightly Patient and Caregiver Support System: Patient lives [place], [place] Means of Transportation: Drives. Concerns identified are: night Patient lives in One Story - with basement stairs: finished room with chair lift Community Resources: Not Applicable Functional [...] continent of bowel Feeding: Self Bathing: Self; walk in shower, with grab bars, Requires none assistance with ADLs. Instrumental ADL's: Shopping: Independent Housekeeping: Minimal Assistance Handling Finances: Minimal Assistance DME Vendor Name: Not Applicable Fall Risk Assessment: Fall Risk Assessment Questionnaire & Timed Up and Go Test (TUG) None Can the patient demonstrate that he can [...] Uses assistive devices Balance or gait disturbances Lower extremity weakness Visually impaired Usa-Ex-bwh-Go Test: Time began at 930. Patient stood from sitting position and walked approximately 10 feet, returned and sat down. Total time for vui-gl-uks-go test was 10 seconds. Sjo-Iv-asc-Go Test completed? Yes Gender Specific Preventative Plan: Health Maintenance Topic Date Due Alpha-1 Antitrypsin Never done COVID-19 Vaccine () 03/06/2024 Diabetic Foot Exam 10/19/2024 HbA1c 12/30/2024 GFR 12/30/2024 Phosphate 05/13/2025 PTH 05/13/2025 Albumin/Creatinine Ratio 05/18/2025 Nephrology Referral 05/30/2025 Colorectal Cancer Screening 06/13/2025 O2 ASSESSMENT COMPLETED IN PAST YEAR FOR COPD 06/13/2025 Arreola's Esophagus Surveilance 06/16/2025 Hgb 07/01/2025 Diabetic Eye Exam 07/20/2025 Depression Screening 08/08/2025 DTap/Tdap Vaccines (2 - Td or Tdap) 12/29/2026 Hepatitis B Vaccine Completed Influenza Vaccine (FLU shot) Completed AAA Screening Completed Zoster Vaccines Completed Pneumococcal Vaccine: 50+ Years Completed MENINGOCOCCAL (MENACTRA/MENVEO) Aged Out HPV (Gardasil) Vaccine Aged Out RETIRED - COLONOSCOPY-EVERY 5 YRS AGES 18-100 Discontinued Follow Up/ Referrals/Handouts: Depression screening - completed Functional assessment - doing well, struggles with CKD and sugars Falls Risk screening - discussed, Exercise screening - encouraged to stay active and check out the [facility] for swimming Nutrition assessment -. Education Provided Pain screening - discussed Incontinence screening - no concerns today Patient has been verbally educated on the need or importance of Cholesterol, Creatinine, Diabetic Eye Exam, Diabetic Foot Exam, Glucose, Hemoglobin A1c, Potassium, COVID, Flu Vaccine, RSV , and Shingles Vaccine Pt has completed the covid vaccines: No declined most recent Flu,shingrix and RSV completed Routine general medical examination at a health care facility (Primary) Arreola's esophagus with high grade dysplasia Patient will discuss next scope with pcp, patient due 06/2025 Chronic heart failure with preserved ejection fraction (HCC) Chronic obstructive pulmonary disease (HCC) - Med reconciliation completed and compliance discussed. - pt to continue present medications. Essential (primary) hypertension - Med reconciliation completed and compliance discussed. - pt to continue present medications. BP Readings from Last 3 Encounters: 08/08/24 128/70 08/01/24 126/64 07/26/24 129/68 Gout, arthropathy - Med reconciliation completed and compliance discussed. - pt to continue present medications. Doing much better on meds H/O colonoscopy with polypectomy Patient had colonoscopy done but struggles with the prep and his BS, he did not feel well at all. 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 - pt to continue present medications. - Discussed Healthy lifestyle, importance of exercise - Diet education - Reviewed labs Hemoglobin AIC Results: Lab Results Component Value Date/Time HEMOGLOBIN A1C - [facility] 9.2 (H) 07/01/2024 02:59 PM HEMOGLOBIN A1C - [facility] 8.5 (H) 02/12/2024 02:38 PM HEMOGLOBIN A1C - [facility] 8.2 (H) 06/11/2023 11:11 AM HEMOGLOBIN A1C - [facility] 9.7 12/01/2018 12:00 AM HEMOGLOBIN A1C POCT - [facility] 7.5 (H) 03/21/2021 12:22 PM HEMOGLOBIN A1C POCT - [facility] 8.1 (H) 12/12/2020 09:33 AM HEMOGLOBIN A1C POCT - [facility] 8.8 (H) 09/04/2020 02:16 PM Follow Up: Return in 1 year (on 08/08/2025) for 12 month Subsequent Adult Wellness Visit. | For: 12 month Subsequent Adult Wellness Visit | Check-out note: 12 month Subsequent Adult Wellness Visit Would patient like to schedule next AWV visit? Yes Jessica Rubio RN documented in this encounter Plan of Treatment Upcoming Encounters Date Type Department Care Team (Late st Contact Info) Description 08/30/2024 8:30 AM EST Home Visit [facility] 132 [facility] [place] [address] Love Stevens, ANNE MARIE 132 [facility] [place] [address] 09/08/2024 11:10 AM EST Telemedicine Family Practice [address] [place] [address] [address] [place] [phone] College, Pharmacist [address] [place] [phone] 09/27/2024 11:30 AM EDT Telemedicine Cardiology [facility] [address] [place] [address] [place] [address], Pharmacist Cardiology [place] [address] [place] [address] 09/30/2024 2:20 PM EDT Office Visit Family Practice [address] [place] [address] [address] [place] [phone] Igor Mcconnell, [address] [place] [address] 10/27/2024 1:00 PM EDT [facility] 132 [facility] [place] [phone] Lindsey Sheikh CRNP [facility] [address] 11/18/2024 2:00 PM EDT Office Visit Nephrology [address] [place] [address] Luisa Ching PA-C [address] [place] [address] 08/09/2025 10:30 AM EST Nurse Only Ancillary [address] [place] [address] [place], Nurse [address] [place] [phone] Scheduled Procedures Name Priority Associated Diagnoses Date/Ti me COLONOSCOPY FLEXIBLE PROXIMA L DIAGNOSTIC Recall History of colonic polyps Health Maintenance Due Date Last Done Comments Alpha-1 Antitrypsin 1977 Cologuard 02/09/2004 Fecal Occult Blood Test 02/09/2004 Sigmoidoscopy 02/09/2004 COVID-19 Vaccine ( season) 2024 12/10/2020, 11/12/2020 Diabetic Foot Exam 10/19/2024 10/20/2023, 0 09/02/2022, 08/16/2021, Additional history exists GFR 12/30/2024 07/01/2024, 120 03/2024, 05/26/2024, Additional history exists HbA1c 12/30/2024 07/01/2024, 08/0 03/2024, 10/21/2023, Additional history exists PTH 05/13/2025 05/13/2024, 08/3 07/2021, 09/12/2020 Phosphate 05/13/2025 05/13/2024, 04/2 08/2023, 10/23/2023, Additional history exists Albumin/Creatinine Ratio 05/18/202505/18/ 024, 05/13/2024, 06/11/2023, Additional history exists Nephrology Referral 05/30/2025 05/30/2024 Colonoscopy 06/13/2025 06/13/2024, 12/0 03/2024, 01/01/2018, Additional history exists Colorectal Cancer [...] this encounter Medical Devices Implanted Type Area Electrical Technician Instructor Device Identifier Shelf Expiration Date Model / Serial / Lot Lens Intraoc 21.0 - [id number] - [id number] Implanted:Qty: 1 on 01/22/2017 by Cheko Mcnamara MD at OR [facility] Right: Eye [employer] 08/05/2021 [id number] / [id number] / [id number] Lens Intraoc 21.5 - [id number] - [id number] Implanted:Qty: 1 on 02/03/2017 by Cheko Mcnamara MD at OR [facility] Left: Eye [employer] 09/02/2021 [id number] / [id number] / [id number] Hemostatic Clip Res 235cm - [id number] Implanted:Qty: 4 on 06/13/2024 by José Miguel Sifuentes MD at ENDOSCOPY [facility] : ENDOSCOPY 10/12/2026 [id number] / / [id number] Hemostatic Clip Res 235cm - [id number] Implanted:Qty: 4 on 06/13/2024 by José Miguel Sifuentes MD at ENDOSCOPY [facility] : ENDOSCOPY 03/18/2027 [id number] / / [id number] documented as of this encounter Visit Diagnoses [...] right eye and macular edema, unspecified whether terminal press operator insulin use (HCC) Chronic obstructive pulmonary disease, unspecified COPD type (HCC) Sacroiliitis (HCC) Sacroiliitis, not elsewhere classified Other specified peripheral vascular diseases (HCC) Coronary artery calcification seen on CT scan Mixed dyslipidemia Mixed hyperlipidemia Routine general medical examination at a health care facility- Primary Arreola's esophagus with high grade dysplasia Arreola's esophagus Chronic heart failure with preserved ejection fraction (HCC) Chronic obstructive pulmonary disease (HCC) Chronic airway obstruction, not elsewhere classified Essential (primary) hypertension Unspecified essential hypertension Gout, arthropathy Gouty arthropathy, unspecified H/O colonoscopy with polypectomy Other postprocedural status 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) Type 2 diabetes mellitus with diabetic polyneuropathy, with long-term current use of insulin (HCC) Type 2 diabetes mellitus with hemoglobin A1c goal of less than 8.0% (HCC) Type 2 diabetes mellitus with peripheral vascular disease (HCC) 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 * Full Code Date Activated Date Inactivated Comments 01/22/2017 6:38 AM 01/22/2017 1:19 PM This order r eflects the patients wishes and were consensually agreed upon. Care Teams Ethylene Oxide Panelboard Operator Relationship Specialty Start Date End Date Igor Mcconnell DO [address] [place] [address] PCP - General Internal Medicine 02/12/24 documented as of this encounter
--- OUTSIDE RECORDS SUMMARY | 2024-08-26 02:20 | External Medical Summary | Summary of Care ---
Author Name Unknown Organization [facility] Address [address] [place] [address] Phone [phone] Care Team Providers Care [place] Name Role Phone Igor Mcconnell Swati FREEDMAN Primary Care Provider [phone] Encounter Details Date Type Department Care Team (Late st Contact Info) Description 08/16/2024 Population Health External Data Unspecified Department Allergies Active Allergy Reactions Criticality Noted Date Comments Metolazone Renal complications 11/10/2023 Note prior DTP with metolazone resulted in acute renal failure Other Allergy (See Comments) Rash Low 10/13/2022 1+ cocamidopropyl betaine Sglt2 Inhibitors Other (Please comment) High 09/04/2020 Genital infection Sulfa Antibiotics Rash 10/15/2016 documented as of this encounter (statuses as of 08/17/2024) Medications Aspirin 81 MG Tablet Take 1 [...] If no improvement on day 3, contact [facility] for possible home visit 1 Each 03/24/20 24 Active Evolocumab 140 MG/ML Subcutaneous Solution Auto-injector (Repatha SureClick)Indication s:Dyslipidemia, goal LDL below 100,Mixed dyslipidemia Inject 140 mg under the skin every 14 days. 6 mL 3 4 11:42 AM EST 03/24/20 24 Active Additional Information Patient taking differently:140 mg Subcutaneous [id number],Om Fridays, Reported on 08/08/2024 Unifine Pentips 31G X 8 MM (Insulin Pen Needle)Indications:T ype 2 diabetes mellitus with hemoglobin A1c goal of less than 7.0% (HCC) USE TO INJECT INSULINS 5 TIMES DAILY 500 Each 3 5 5:15 PM EST 04/18/20 24 Active Kkwxh-0-zucg Ethyl Esters 1 GM Oral Capsule (Lovaza) [...] A1c goal of less than 7.0% (HCC) Inject 116 Units under the skin in the morning and 116 Units in the evening. 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 2 mL 11 5 9:37 AM EST 08/01/19 25 026 Active documented as of this encounter (statuses as of 08/17/2024) Active Problems Patient Care Coordination No te Formatting of this note migh t be different from the original. Heart Failure Self-Management and Exacerbation Plan "RED FLAG" HF Symptoms: Leg Swelling Abdominal Bloating Increased dyspnea on exertion Increased shortness of breath at rest Orthopnea Remote Patient Monitoring Vendor: [facility] – [...] in the Comments) Remote Patient Monitoring Vendor: [employer] Device(s): Connected Scale Self - Management Plan Double dose of Torsemide for 3 days Exacerbation Plan BMP Chest X-Ray Additional Comments: Recommended using double torsemide for 3 days in a row, rather than 1 day like he has been doing Continue using Snapvine scale Low sodium diet Assessment & Plan [...] recently changed by PCP. added metolatzone thursday thr Exacerbation Plan o BMP o Pro-BNP Assessment [...] as of this encounter (statuses as of 08/17/2024) Resolved Problems Problem Noted Date Diagnosed Date [...] has been better controlled recently. Monitor using [employer] Cindy. Assessment & Plan (12/19/2022 11:13 AM [...] as of this encounter (statuses as of 08/17/2024) Immunizations Name Administration Dates Next Due COVID-19 mRNA, LNP-s, No Pre serve, 2-Dose Series (Moderna) 12/10/2020,11/12/2020 Hepatitis B, 20+ yrs 01/04/2018,08/03/2017,07/03 Pneumococcal Conjugate Vacci ne, 20-valent (Eyzogcj17) 06/09/2022 Pneumococcal Polysaccharide PPV23 (Pneumovax) 03/06/2020 RSV [...] AM EDT documented as of this encounter Plan of Treatment Upcoming Encounters Date Type Department Care Team (Late st Contact Info) Description 08/30/2024 8:30 AM EST [facility] 132 [facility] [place] [address] Love Stevens RN 132 [facility] [place] [address] 09/08/2024 11:10 AM EST Telemedicine Family Practice [address] [place] [phone] College, Pharmacist [address] [place] [address] 09/27/2024 11:30 AM EDT Telemedicine Cardiology [facility], [place] [address] [place] [address] [place] [address], Pharmacist Cardiology [facility] [address] [place] [address] 09/30/2024 2:20 PM EDT Office Visit Family Practice [address] [facility] 293 [place] [address] Igor Mcconnell, 293 [facility] [place] [address] 10/27/2024 1:00 PM EDT Office Visit Sleep Disorders Ctr [facility] 132 [facility] [place] [phone] Lindsey Sheikh CRNP 132 [facility] [place] [address] 11/18/2024 2:00 PM EDT Office Visit Nephrology [address] [place] [address] ZemaLuisa leslie PA-C [address] [place] [address] 08/09/2025 10:30 AM EST Nurse Only Ancillary [address] [place] [address] [place], Nurse Annual [address] [place] [address] Scheduled Procedures Name Priority Associated Diagnoses Date/Ti me COLONOSCOPY FLEXIBLE PROXIMA L DIAGNOSTIC Recall History of colonic polyps Health Maintenance Due Date Last Done Comments Alpha-1 Antitrypsin 1977 Cologuard 02/09/2004 Fecal Occult Blood Test 02/09/2004 Sigmoidoscopy 02/09/2004 COVID-19 Vaccine ( season) 2024 12/10/2020, 11/12/2020 Diabetic Foot Exam 10/19/2024 10/20/2023, 0 09/02/2022, 08/16/2021, Additional history exists GFR 12/30/2024 07/01/2024, 03/2024, 05/26/2024, Additional history exists HbA1c 12/30/2024 07/01/2024, 03/2024, 10/21/2023, Additional history exists PTH 05/13/2025 [...] encounter Medical Devices Implanted Type Area Wire Stripping Machine Operator Device Identifier Shelf Expiration Date Model / Serial / Lot Lens Intraoc 21.0 - [id number] - [id number] Implanted:Qty: 1 on 01/22/2017 by Cheko Mcnamara MD at OR [facility] Right: Eye [employer] 08/05/2021 [id number] / [id number] / [id number] Lens Intraoc 21.5 - [id number] - [id number] Implanted:Qty: 1 on 02/03/2017 by Cheko Mcnamara MD at OR [facility] Left: Eye [employer] 09/02/2021 [id number] / [id number] / [id number] Hemostatic Clip Res 235cm - [id number] Implanted:Qty: 4 on 06/13/2024 by José Miguel Sifuentes MD at ENDOSCOPY [facility] [employer] : ENDOSCOPY 10/12/2026 [id number] / / [id number] Hemostatic Clip Res 235cm - [id number] Implanted:Qty: 4 on 06/13/2024 by José Miguel Sifuentes MD at ENDOSCOPY [facility] [employer] : ENDOSCOPY 03/18/2027 [id number] / / [id number] documented as of this encounter Advance Directives [...] and were consensually agreed upon. Care Teams [place] Relationship Specialty Start Date End Date Igor Mcconnell DO [address] [place] [address] PCP - General Internal Medicine 02/12/24 documented as of this encounter
--- OUTSIDE RECORDS SUMMARY | 2024-08-26 02:20 | External Medical Summary ---
Author Name Unknown Address Unknown Organization K01:[facility] [address] [place] [address] Laboratory Report Ordering Provider Test Date Status RC ESCOBEDO 08/24/2024 11:58:38 Final Observation Date Value Abnormality Reference (Units ) Status Magnesium 08/24/2024 11:58:38 2.6 1.5-2.6 (m g/dL) Final Performing Location [facility] [address] [place] [id number]
--- OUTSIDE RECORDS SUMMARY | 2024-08-26 02:21 | External Medical Summary | Summary of Care ---
Author Name Unknown Organization [facility] Address [address] [facility] [place] [address] Phone [phone] Care Team Providers Care Tube Machine Operator Helper Name Role Phone Igor Mcconnell DO Primary Care Provider Reason for Visit * Reason Onset Date Comments Pre Cert/Prior Auth 07/15/2024 Tresiba flex touch 200 unit Encounter Details Date Type Department Care Team (Late st Contact Info) Description 07/15/2024 Telephone Family Medicine [address] [place] [address] B[address]bara Rios[address] [place] [address] Pre Cert/Prior Auth (Tresiba flextouch 200... Allergies Active Allergy Reactions Criticality Noted Date Comments Metolazone Renal complications 11/10/2023 Note prior DTP with metolazone resulted in acute renal failure Other Allergy (See Comments) Rash Low 10/13/2022 1+ cocamidopropyl betaine Sglt2 Inhibitors Other (Please comment) High 09/04/2020 Genital infection Sulfa Antibiotics Rash 10/15/2016 documented as of this encounter (statuses as of 07/20/2024) Medications Aspirin 81 MG Tablet Take 1 [...] . 6 Each 3 04/24/20 22 Active Metamucil 28.3 % Oral Powder (Psyllium) Take by mouth daily. At least 1 hour after other medications Active OneTouch Verio In Vitro Strip (Glucose [...] 38 UNITS WITH DINNER PLUS CORRECTION PER [facility] OR DIRECTED UP TO 120 UNITS PER DAY 120 mL 3 4 11:17 AM EST 03/21/20 24 Active DIURETIC TITRATION PLAN If no improvement on day 3, contact [facility] for possible home visit 1 Each 03/24/20 24 Active Evolocumab 140 MG/ML Subcutaneous Solution Auto-injector (Repatha SureClick)Indicati ons:Dyslipidemia, goal LDL below 100,Mixed dyslipidemia Inject 140 mg under the skin every 14 days. 6 mL 3 4 11:42 AM EST 03/24/20 Active Additional Information Patient taking differently:140 mg Subcutaneous [id number],Om Fridays, Reported on 07/01/2024 Unifine Pentips 31G X 8 MM (Insulin Pen Needle)Indications :Type 2 diabetes mellitus with hemoglobin A1c goal of less than 7.0% (HCC) USE TO INJECT INSULINS 5 TIMES DAILY 500 Each 3 5 5:15 PM EST 04/18/20 Active Pqhlp-0-bidh Ethyl Esters 1 GM Oral Capsule (Lovaza) [...] Tablet 5 4 7:46 AM EDT 04/18/20 Active Omeprazole 20 MG Oral Capsule Delayed Release (PriLOSEC) TAKE 1 CAPSULE BY MOUTH IN THE MORNING AND 1 CAPSULE BEFORE BEDTIME 30 MINUTES BEFORE A MEAL 180 Capsule 1 4 7:11 AM EDT 05/02/20 24 025 Active Carvedilol 25 MG [...] 90 Tablet 3 4 1:44 PM EST 11/25/20 24 Active Pravastatin Sodium 20 MG Oral Tablet (Pravachol) Take 1 Tablet by mouth daily. 30 Tablet 11 4 1:13 PM EST 06/21/20 24 Active Ozempic (2 MG/DOSE) 8 MG/3ML Subcutaneous Solution Pen-injector (Semaglutide (2 MG/DOSE))Indicatio ns:Type 2 diabetes mellitus with stage 4 chronic kidney disease, with long-term current use of insulin (HCC) Inject 2 mg under the skin once a week. 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 Or take as directed 800 Tablet 3 4 6:26 AM EST 06/27/20 24 Active Insulin Degludec FlexTouch 200 UNIT/ML Subcutaneous Solution Pen-injectorIndica tions:Type 2 diabetes mellitus with hemoglobin A1c goal of less than 7.0% (HCC) Inject 116 Units under the skin in the morning and 116 Units in the evening. 108 mL 2 07/20/19 25 Active Tresiba FlexTouch 200 UNIT/ML Subcutaneous Solution Pen-injectorIndica tions:Type 2 diabetes mellitus with hemoglobin A1c goal of less than 7.0% (HCC) INJECT UNDER THE SKIN 100 UNITS TWICE DAILY OR DIRECTED 90 mL 3 4 10:11 AM EDT 01/18/20 24 025 Discontin ued(Refil l) Tresiba FlexTouch 200 UNIT/ML Subcutaneous Solution Pen-injectorIndica tions:Type 2 diabetes mellitus with hemoglobin A1c goal of less than 7.0% (HCC) Inject 116 Units under the skin in the morning and 116 Units in the evening. 90 mL 2 07/15/19 25 025 Discontin ued(Refil l) documented as of this encounter (statuses as of 07/20/2024) Active Problems Patient Care Coordination No te Formatting of this note migh t be different from the original. Heart Failure Self-Management and Exacerbation Plan "RED FLAG" HF Symptoms: Leg Swelling Abdominal Bloating Increased dyspnea on exertion Increased shortness of breath at rest Orthopnea Remote Patient Monitoring Vendor: [facility] Device(s): Connected Scale Self - Management Plan [...] the Comments) Remote Patient Monitoring Vendor: [facility] Device(s): Connected Scale Self - Management Plan [...] as of this encounter (statuses as of 07/20/2024) Resolved Problems Problem Noted Date Diagnosed Date [...] has been better controlled recently. Monitor using [employer] Cindy. Assessment & Plan (12/19/2022 11:13 AM [...] as of this encounter (statuses as of 07/20/2024) Immunizations Name Administration Dates Next Due COVID-19 mRNA, LNP-s, No Pre serve, 2-Dose Series (Moderna) 12/10/2020,11/12/2020 Hepatitis B, 20+ yrs 01/04/2018,08/03/2017,07/03 Pneumococcal Conjugate Vacci ne, 20-valent ([id number]) 06/09/2022 Pneumococcal Polysaccharide PPV23 (Pneumovax) 03/06/2020 RSV [...] No 05/02/2024 Does the household have a up health systemr source of income? (Household - for ages [...] encounter Miscellaneous Notes * Addendum Note - Bianca Dowell RPh - 07/20/2024 2:10 PM ESTAddended by: BIANCA DOWELL on: 07/20/2024 02:10 PM Modules accepted: Orders * Telephone Encounter - Bianca Dowell RPh - 07/20/2024 2:10 PM EST Rx resent for generic Thank you, Bianca Dowell PharmD, FILIBERTO Clinical Pharmacist [facility] 07/20/24 2:10 PM [phone] * Telephone Encounter - Myrtle Hui PHARM Tech - 07/20/2024 1:54 PM EST Please remove ave from Tresiba FlexTouch 200 UNIT/ML Subcutaneous Solution Pen-injector Also need 108 ml , [facility] you, [facility] Organic Extractions Technician II [facility] 07/20/2024,1:54 PM * Telephone Encounter - Randa Myrick PHARM Tech - 07/15/2024 4:51 PM EST Patients insurance would like to inform the office that TRESIBA FLEXTOUCH 200 UNIT/ML is not requiring review because this is now generic NDC:[id number]. No PA for generic required. Thank you, Randa Myrick [facility] Orthotics Assistant II [facility] 07/15/2024,4:51 PM * Telephone Encounter - Snow Boone RP - 07/15/2024 2:40 PM EST Per 07/11/24 MTDM visit: Tresiba (U200) 116 units twice daily (decrease to 110 units BID if sugars < 70) Reason for Request: missing or invalid quantity dispensed Sent script with appropriate directions. Pending Prescriptions: Disp Refills Tresiba FlexTouch 200 UNIT/ML Subcutaneou*90 mL 2 Sig: Inject 116 Units under the skin in the morning and 116 Units in the evening. Thanks, Snow Boone [facility] Clinical Pharmacist [facility] ([facility]) [phone] * Telephone Encounter - Juvenal Maddox CPhT - 07/15/2024 2:38 PM EST This is a new PA request. Upon review of this prior authorization request, I verified this request is appropriate. This is prescribed by a department for which [facility] is authorized to review prior authorizations This is not a duplicate encounter regarding the same prior authorization The patient is planning to use insurance The insurance information listed in previous note is correct and the plan that is requiring prior authorization The insurance does not cover either brand or generic forms of this script as written without prior authorization The insurance does not cover any NDCs of this script without prior authorization RX Estimate tool confirms this script needs prior authorization Of note, there is nothing currently pending in Center for this request. Please advise how to proceed. Thank you, Eleuterio Maddox (editing computer publisher) Orthotics Assistant III [facility] 07/15/2024, 2:38 PM * Telephone Encounter - Charlene Hays CPhT - 07/15/2024 12:20 PM EST Pharmacy calling to inform doctor that the patient's insurance will not pay for this medication without a completed prior authorization. Did confirm this information with the pharmacy. Pt's current insurance information is as follows: Patient name: Tony Delong ID number: [id number] BIN number: [id number] PCN number: [id number] Group number: none Subscriber name: Tony Delong Primary or Secondary Insurance:Primary Medication: tresiba flextouch 200 unit Reason for Request: missing or invalid quantity dispensed Pharmacy and phone number: [facility] [phone] Rx plan and phone number: [facility] [phone] Is this a new medication for the patient? Yes What alternative medications does the pharmacy have in stock?: none Thank you, Charlene Hays CphT Orthotics Assistant III [facility] 07/15/24 documented in this encounter Plan of Treatment Upcoming Encounters Date Type Department Care Team (Late st Contact Info) Description 07/26/2024 8:30 AM EST [facility] [address] [facility] [place] [address] [place], [place] [facility] [address] 08/01/2024 2:20 PM EST Office Visit Family [facility] [address] [facility] [address] [place] [phone] Igor Mcconnell, [address] [place] [address] 08/01/2024 3:00 PM EST Office Visit Family Practice [address] [facility] [address] [place] [phone] College, Pharmacist [address] [place] [address] 08/08/2024 9:30 AM EST Nurse Only Ancillary [address] [place] [address] [place], Nurse [address] [place] [address] 09/27/2024 11:30 AM EDT Telemedicine Cardiology [facility] [place] [address] [place] [address] [place] [address], Pharmacist Cardiology [place] [address] [place] [address] 10/27/2024 1:00 PM EDT Office Visit Sleep Disorders Ctr [facility] [address] [facility] [place] [phone] Lindsey Sheikh CRNP [address] [facility] [place] [address] 11/18/2024 2:00 PM EDT Office Visit Nephrology [address] [place] [address] Luisa Ching PA-C [address] [place], [place] [address] Scheduled Procedures Name Priority Associated Diagnoses Date/Ti [...] 05/26/2024, Additional history exists HbA1c 12/30/2024 07/01/2024, 080 03/2024, 10/21/2023, Additional history exists PTH 05/13/2025 05/13/2024, 08/3 07/2021, 09/12/2020 Phosphate 05/13/2025 05/13/2024, 04/2 08/2023, 10/23/2023, Additional history exists Albumin/Creatinine Ratio 05/18/202505/18/ 024, 05/13/2024, 06/11/2023, Additional history exists Diabetic Eye Exam 05/19/2025 05/19/2024, , 04/11/2024, Additional history exists Nephrology Referral 05/30/2025 05/30/2024 Colonoscopy 06/13/2025 06/13/2024, 1203/2024, 01/01/2018, Additional history exists Colorectal Cancer Screening 06/13/2025 O2 ASSESSMENT COMPLETED IN PAST YEAR FOR COPD 06/13/2025 06/13/2024 Arreola's Esophagus Surveilance 06/16/2025 06/16/2022, 06/16/2022, 03/20/2022, Additional history exists Hgb 07/01/2025 07/01/2024, 11/0 02/2024, 03/11/2024, Additional history exists DTap/Tdap Vaccines [...] this encounter Medical Devices Implanted Type Area Frame Wirer Device Identifier Shelf Expiration Date Model / Serial / Lot Lens Intraoc 21.0 - [id number] - [id number] Implanted:Qty: 1 on 01/22/2017 by Cheko Mcnamara MD at OR [facility] Right: Eye [employer] 08/05/2021 [id number] / [id number] / [id number] Lens Intraoc 21.5 - [id number] - [id number] Implanted:Qty: 1 on 02/03/2017 by Cheko Mcnamara MD at OR [facility] Left: Eye [employer]OMB 09/02/2021 [id number] / [id number] / [id number] Hemostatic Clip Res 235cm - [id number] Implanted:Qty: 4 on 06/13/2024 by José Miguel Sifuentes MD at ENDOSCOPY [facility] [employer] : ENDOSCOPY 10/12/2026 [id number] / / [id number] Hemostatic Clip Res 235cm - [id number] Implanted:Qty: 4 on 06/13/2024 by José Miguel Sifuentes MD at ENDOSCOPY [facility] : ENDOSCOPY 03/18/2027 [id number] / / [id number] documented as of this encounter Visit Diagnoses [...] right eye and macular edema, unspecified whether jail insulin use (HCC) Chronic obstructive pulmonary disease, unspecified COPD type (HCC) Sacroiliitis (HCC) Sacroiliitis, not elsewhere classified Other specified peripheral vascular diseases (HCC) Coronary artery calcification seen on CT scan Mixed dyslipidemia Mixed hyperlipidemia Type 2 diabetes mellitus with hemoglobin A1c goal of less than 7.0% (HCC) documented in this encounter Advance Directives [...] and were consensually agreed upon. Care Teams Tube Machine Operator Helper Relationship Specialty Start Date End Date Igor Mcconnell DO [address] [facility] [place] [address] PCP - General Internal Medicine 02/12/24 documented as of this encounter
--- OUTSIDE RECORDS SUMMARY | 2024-08-26 02:21 | External Medical Summary | Summary of Care ---
Author Name Unknown Organization [facility] Address [address] [facility] [place] [address] Phone [phone] Care Team Providers Care Warp Clamper Name Role Phone EnedinaIgor DO Primary Care Provider [phone] Encounter Details Date Type Department Care Team (Late st Contact Info) Description 07/25/2024 Population Health External Data Unspecified Department Allergies Active Allergy Reactions Criticality Noted Date Comments Metolazone Renal complications 11/10/2023 Note prior DTP with metolazone resulted in acute renal failure Other Allergy (See Comments) Rash Low 10/13/2022 1+ cocamidopropyl betaine Sglt2 Inhibitors Other (Please comment) High 09/04/2020 Genital infection Sulfa Antibiotics Rash 10/15/2016 documented as of this encounter (statuses as of 07/25/2024) Medications Aspirin 81 MG Tablet Take 1 [...] A1c goal of less than 7.0% ([facility]) Use as directed every 14 days . [...] If no improvement on day 3, contact [facility] for possible home visit 1 Each 03/24/20 24 Active Evolocumab 140 MG/ML Subcutaneous Solution Auto-injector (Repatha SureClick)Indicati ons:Dyslipidemia, goal LDL below 100,Mixed dyslipidemia Inject 140 mg under the skin every 14 days. 6 mL 3 4 11:42 AM EST 03/24/20 24 Active Additional Information Patient taking differently:140 mg Subcutaneous [id number],Om Fridays, Reported on 07/01/2024 Unifine Pentips 31G X 8 MM (Insulin Pen Needle)Indications :Type 2 diabetes mellitus with hemoglobin A1c goal of less than 7.0% ([facility]) USE TO INJECT INSULINS 5 TIMES DAILY 500 Each 3 5 5:15 PM EST 04/18/20 24 Active Vbxhu-9-elfn Ethyl Esters 1 GM Oral Capsule (Lovaza) [...] current use of insulin ([facility]) Inject 2 mg under the [...] A1c goal of less than 7.0% ([facility]) Inject 116 Units under the skin in the morning and 116 Units in the evening. 108 mL 2 5 10:47 AM EST 07/20/19 25 Active documented as of this encounter (statuses as of 07/25/2024) Active Problems Patient Care Coordination No te Formatting of this note migh t be different from the original. Heart Failure Self-Management and Exacerbation Plan "RED FLAG" HF Symptoms: Leg Swelling Abdominal Bloating Increased dyspnea on exertion Increased shortness of breath at rest Orthopnea Remote Patient Monitoring Vendor: [facility] [...] in the Comments) Remote Patient Monitoring Vendor: [employer] Device(s): Connected Scale Self - Management Plan [...] as of this encounter (statuses as of 07/25/2024) Resolved Problems Problem Noted Date Diagnosed Date [...] has been better controlled recently. Monitor using [employer]Q Cindy. Assessment & Plan (12/19/2022 11:13 AM [...] as of this encounter (statuses as of 07/25/2024) Immunizations Name Administration Dates Next Due COVID-19 mRNA, LNP-s, No Pre serve, 2-Dose Series (Moderna) 12/10/2020,11/12/2020 Hepatitis B, 20+ yrs 01/04/2018,08/03/2017,07/03 Pneumococcal Conjugate Vacci ne, 20-valent ([id number]) 06/09/2022 Pneumococcal Polysaccharide PPV23 (Pneumovax) 03/06/2020 RSV [...] Description 07/26/2024 8:30 AM EST [facility] Visit [facility] [address] [place] [address] [place], [place] [address] [facility] [place] [address] 08/01/2024 2:20 PM EST Office Visit Family Practice [address] [place] [address] [address] [place] [address] Igor Mcconnell DO [address] [place] [address] 08/01/2024 3:00 PM EST Office Visit Family Practice [address] [facility] [address] [place] [address] College, Pharmacist [address] [place] [address] 08/08/2024 9:30 AM EST Nurse Only Ancillary [address] [place] [address] [facility], Nurse [address] [place] [address] 09/27/2024 11:30 AM EDT Telemedicine Cardiology [facility], [place] [address] [facility] [place] [address] [facility], Pharmacist Cardiology [facility] [address] [place] [address] 10/27/2024 1:00 PM EDT [facility] [address] [place] [phone] Lindsey Sheikh CRNP [address] [place] [address] 11/18/2024 2:00 PM EDT Office Visit Nephrology [address] [place] [address] ZemaitisLuisa PA-C [address] [place] [address] Scheduled Procedures Name Priority Associated Diagnoses Date/Ti [...] this encounter Medical Devices Implanted Type Area Hose Inspector Device Identifier Shelf Expiration Date Model / Serial / Lot Lens Intraoc 21.0 - [id number] - [id number] Implanted:Qty: 1 on 01/22/2017 by Cheko Mcnamara MD at OR [facility] Right: Eye [employer] 08/05/2021 [id number] / [id number] / [id number] Lens Intraoc 21.5 - [id number] - [id number] Implanted:Qty: 1 on 02/03/2017 by Cheko Mcnamara MD at OR [facility] Left: Eye [employer] 09/02/2021 [id number] / [id number] / [id number] Hemostatic Clip Res 235cm - [id number] Implanted:Qty: 4 on 06/13/2024 by José Miguel Sifuentes MD at ENDOSCOPY [facility] [employer] : ENDOSCOPY 10/12/2026 [id number] / / [id number] Hemostatic Clip Res 235cm - [id number] Implanted:Qty: 4 on 06/13/2024 by José Miguel Sifuentes MD at ENDOSCOPY [facility] [employer] : ENDOSCOPY 03/18/2027 [id number] / / [id number] documented as of this encounter Advance Directives [...] and were consensually agreed upon. Care Teams Warp Clamper Relationship Specialty Start Date End Date Igor Mcconnell DO [address] [facility] [place] [address] PCP - General Internal Medicine 02/12/24 documented as of this encounter
--- OUTSIDE RECORDS SUMMARY | 2024-08-26 02:21 | External Medical Summary | Summary of Care ---
Author Name Unknown Organization [facility] Address [address] [place] [address] Phone [phone] Care Team Providers Care Meat Boner And Slicer Name Role Phone Igor Mcconnell DO Primary Care Provider [phone] Encounter Details Date Type Department Care Team (Late st Contact Info) Description 07/19/2024 Orders Only Cardiology [facility] for [facility] [address] [place], [place] [id number] Garima Prado, [facility] 400 [facility] [place] [address] Abnormal LFTs* Allergies Active Allergy Reactions Criticality Noted Date Comments Metolazone Renal complications 11/10/2023 Note prior DTP with metolazone resulted in acute renal failure Other Allergy (See Comments) Rash Low 10/13/2022 1+ cocamidopropyl betaine Sglt2 Inhibitors Other (Please comment) High 09/04/2020 Genital infection Sulfa Antibiotics Rash 10/15/2016 documented as of this encounter (statuses as of 07/19/2024) Medications Aspirin 81 MG Tablet Take 1 [...] least 1 hour after other medications Active OneBrit Jameson In Vitro Strip (Glucose Blood)Indications: Uncontrolled type [...] 38 UNITS WITH DINNER PLUS CORRECTION [facility] OR DIRECTED UP TO 120 UNITS PER DAY 120 mL 3 4 11:17 AM EST 03/21/20 24 Active DIURETIC TITRATION PLAN If no improvement on day 3, contact [facility] for possible home visit 1 Each 03/24/20 24 Active Evolocumab 140 MG/ML Subcutaneous Solution Auto-injector (Repatha SureClick)Indicati ons:Dyslipidemia, goal LDL below 100,Mixed dyslipidemia Inject 140 mg under the skin every 14 days. 6 mL 3 4 11:42 AM EST 03/24/20 24 Active Additional Information Patient taking differently:140 mg Subcutaneous [id number],Om Fridays, Reported on 07/01/2024 Unifine Pentips 31G X 8 MM (Insulin Pen Needle)Indications :Type 2 diabetes mellitus with hemoglobin A1c goal of less than 7.0% (HCC) USE TO INJECT INSULINS 5 TIMES DAILY 500 Each 3 5 5:15 PM EST 04/18/20 24 Active Jxawt-1-zqcy Ethyl Esters 1 GM Oral Capsule (Lovaza) [...] hemoglobin A1c goal of less than 7.0% ([facility]) Inject 116 Units under the skin in the morning and 116 Units in the evening. 90 mL 2 07/15/19 25 Active documented as of this encounter (statuses as of 07/19/2024) Active Problems Patient Care Coordination No te Formatting of this note migh t be different from the original. Heart Failure Self-Management and Exacerbation Plan "RED FLAG" HF Symptoms: Leg Swelling Abdominal Bloating Increased dyspnea on exertion Increased shortness of breath at rest Orthopnea Remote Patient Monitoring Vendor: [employer] [...] Coronary artery calcification seen on CT scan 01 / Chronic obstructive pulmonary disease 01/21/2023 Overview (07/25/2023): [...] on Thursday. Repeat BMP will be done Thursday. Assessment & Plan (12/19/2022 11:11 AM EDT): [...] as of this encounter (statuses as of 07/19/2024) Resolved Problems Problem Noted Date Diagnosed Date [...] has been better controlled recently. Monitor using [employer] Cindy. Assessment & Plan (12/19/2022 11:13 AM [...] as of this encounter (statuses as of 07/19/2024) Immunizations Name Administration Dates Next Due COVID-19 mRNA, LNP-s, No Pre serve, 2-Dose Series (Moderna) 12/10/2020,11/12/2020 Hepatitis B, 20+ yrs 01/04/2018,08/03/2017,07/03 Pneumococcal Conjugate Vacci ne, 20-valent ([id number]) 06/09/2022 Pneumococcal Polysaccharide PPV23 (Pneumovax) 03/06/2020 RSV [...] AM EDT documented as of this encounter Progress Notes * Garima Prado RPh - 07/19/2024 10:05 AM EST LFTs ordered to be completed with lipid panel in September. Garima Prado, PharmD Clinical Pharmacist - [facility] 07/19/2024 10:05 AM documented in this encounter Plan of Treatment Upcoming Encounters Date Type Department Care Team (Late st Contact Info) Description 07/26/2024 8:30 AM EST Home Visit [facility] [place], [facility] [address] [facility] [place] [address] Love Stevens, RN 132 [facility] [place] [address] 08/01/2024 2:20 PM EST Office Visit Family Practice [address] [place] [address] 293 [facility] [place] [address] Igor Mcconnell, 293 [facility] [place] [address] 08/01/2024 3:00 PM EST Office Visit Family Practice [address] [facility] 293 [facility] [place] [address] College, Pharmacist [address] [place] [address] 08/08/2024 9:30 AM EST Nurse Only Ancillary [address] [place] [address] [place], Nurse [address] [place] [address] 09/27/2024 11:30 AM EDT Telemedicine Cardiology [facility] [place] [address] [place] [address] [facility], Pharmacist Cardiology [facility] [address] [place] [address] 10/27/2024 1:00 PM EDT Office Visit [facility] Disorders Ctr [facility] [address] [facility] [place] [address] Lindsey Sheikh CRNP 132 [facility] [place] [address] 11/18/2024 2:00 PM EDT Office Visit Nephrology [address] [place] [address] Zemaitis, Luisa Guzman PA-C [address] [place] [address] Scheduled Orders Name Type Priority Associated Diagnoses Orde r Schedule HEPATIC FUNCTION PANEL Lab Routine Abnormal LFTs Expected: 09/19/2024 (Approximate), Expires: 07/19/2025 Scheduled Procedures Name Priority Associated Diagnoses Date/Ti [...] this encounter Medical Devices Implanted Type Area Industrial Mechanic Device Identifier Shelf Expiration Date Model / Serial / Lot Lens Intraoc 21.0 - [id number] - [id number] Implanted:Qty: 1 on 01/22/2017 by Cheko Mcnamara MD at OR [facility] Right: Eye [employer] 08/05/2021 [id number] / [id number] / [id number] Lens Intraoc 21.5 - [id number] - [id number] Implanted:Qty: 1 on 02/03/2017 by Cheko Mcnamara MD at OR [facility] Left: Eye [employer]OM[employer] 09/02/2021 [id number] / [id number] / [id number] Hemostatic Clip Res 235cm - [id number] Implanted:Qty: 4 on 06/13/2024 by José Miguel Sifuentes MD at ENDOSCOPY [facility] [employer] : ENDOSCOPY 10/12/2026 [id number] / / [id number] Hemostatic Clip Res 235cm - [id number] Implanted:Qty: 4 on 06/13/2024 by José Miguel Sifuentes MD at ENDOSCOPY [facility] [employer] : ENDOSCOPY 03/18/2027 [id number] / / [id number] documented as of this encounter Visit Diagnoses Diagnosis Hypertensive 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 (HCC)- Primary [place]IN[place]O on CPAP Obstructive sleep apnea (adult) (pediatric) Type 2 diabetes mellitus with stage 3b chronic kidney disease, with long-term current use of insulin ([facility]) Advanced care planning/counseling discussion- Primary Other specified counseling Hypertensive 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 (HCC) [place]IN[place]O on CPAP Obstructive sleep apnea (adult) (pediatric) Mixed dyslipidemia Mixed hyperlipidemia Type 2 diabetes mellitus with hemoglobin A1c goal of less than 8.0% ([facility]) Arreola's esophagus with high grade dysplasia Arreola's [...] right eye and macular edema, unspecified whether powerhouse mechanic insulin use (HCC) Chronic obstructive pulmonary disease, unspecified COPD type (HCC) Sacroiliitis (HCC) Sacroiliitis, not elsewhere classified Other specified peripheral vascular diseases (HCC) Coronary artery calcification seen on CT scan Mixed dyslipidemia Mixed hyperlipidemia Abnormal LFTs- Primary Other abnormal blood chemistry documented in this encounter Advance Directives * [...] and were consensually agreed upon. Care Teams Meat Boner And Slicer Relationship Specialty Start Date End Date Igor Mcconnell DO [address] [place] [address] PCP - General Internal Medicine 02/12/24 documented as of this encounter
--- OUTSIDE RECORDS SUMMARY | 2024-08-26 02:21 | External Medical Summary | Summary of Care ---
Author Name Unknown Organization [facility] Address [address] [facility] [place] [address] Phone [phone] Care Team Providers Care Director Of Outreach Name Role Phone Igor Mcconnell DO Primary Care Provider [phone] Encounter Details Date Type Department Care Team (Late st Contact Info) Description 07/26/2024 8:30 AM EST [facility] [address] [place] [address] Love Stevens, ANNE MARIE [address] [facility] [place] [address] Allergies Active Allergy Reactions Criticality Noted Date Comments Metolazone Renal complications 11/10/2023 Note prior DTP with metolazone resulted in acute renal failure Other Allergy (See Comments) Rash Low 10/13/2022 1+ cocamidopropyl betaine Sglt2 Inhibitors Other (Please comment) High 09/04/2020 Genital infection Sulfa Antibiotics Rash 10/15/2016 documented as of this encounter (statuses as of 07/26/2024) Medications Aspirin 81 MG Tablet Take 1 [...] . 6 Each 3 04/24/20 22 Active OneLuis Eduardouch Verio In Vitro Strip (Glucose Blood)Indications: Uncontrolled [...] UNITS WITH DINNER PLUS CORRECTION PER [facility] OR DIRECTED UP TO 120 UNITS PER DAY 120 mL 3 4 11:17 AM EST 03/21/20 24 Active DIURETIC TITRATION PLAN If no improvement on day 3, contact [facility] for possible home visit 1 Each 03/24/20 24 Active Evolocumab 140 MG/ML Subcutaneous Solution Auto-injector (Repatha SureClick)Indicati ons:Dyslipidemia, goal LDL below 100,Mixed dyslipidemia Inject 140 mg under the skin every 14 days. 6 mL 3 4 11:42 AM EST 03/24/20 24 Active Additional Information Patient taking differently:140 mg Subcutaneous [id number],Om Fridays, Reported on 07/26/2024 Unifine Pentips 31G X 8 MM (Insulin Pen Needle)Indications :Type 2 diabetes mellitus with hemoglobin A1c goal of less than 7.0% (HCC) USE TO INJECT INSULINS 5 TIMES DAILY 500 Each 3 5 5:15 PM EST 04/18/20 24 Active Vnlth-4-vzyy Ethyl Esters 1 GM Oral Capsule (Lovaza) [...] hemoglobin A1c goal of less than 7.0% ([facility]) Inject 116 Units under the skin in the morning and 116 Units in the evening. 108 mL 2 5 10:47 AM EST 07/20/19 25 Active Metamucil 28.3 % Oral Powder (Psyllium) Take by mouth daily. At least 1 hour after other medications 025 Discontin ued(Medic ation List Clean Up) documented as of this encounter (statuses as of 07/26/2024) Active Problems Patient Care Coordination No te Formatting of this note migh t be different from the original. Heart Failure Self-Management and Exacerbation Plan "RED FLAG" HF Symptoms: Leg Swelling Abdominal Bloating Increased dyspnea on exertion Increased shortness of breath at rest Orthopnea Remote Patient Monitoring Vendor: [facility] [...] in the Comments) Remote Patient Monitoring Vendor: [email or web address] Device(s): Connected Scale Self - Management Plan [...] as of this encounter (statuses as of 07/26/2024) Resolved Problems Problem Noted Date Diagnosed Date [...] has been better controlled recently. Monitor using [employer] [place] Cindy. Assessment & Plan (12/19/2022 11:13 AM [...] serious comorbidity 07/11/2019 BMI 40.0-44.9, adult 04/18/2019 08 024 Overview: Per Obesity protocol - ICD-10 [...] as of this encounter (statuses as of 07/26/2024) Immunizations Name Administration Dates Next Due COVID-19 mRNA, LNP-s, No Pre serve, 2-Dose Series (Moderna) 12/10/2020,11/12/2020 Hepatitis B, 20+ yrs 01/04/2018,08/03/2017,07/03 Pneumococcal Conjugate Vacci ne, 20-valent (Cprmnvc26) 06/09/2022 Pneumococcal Polysaccharide PPV23 (Pneumovax) 03/06/2020 RSV [...] Sign Reading Time Taken Comments Blood Pressure 129/68 07/26/2024 11:10 AM EST Pulse 64 07/26/2024 11:10 AM EST Temperature - - Respiratory Rate 18 07/26/2024 11:10 AM EST Oxygen Saturation 96% 07/26/2024 11:10 AM EST Inhaled Oxygen Concentration - - Weight - - Height - - Body Mass Index - - documented in this encounter Progress Notes * Love Stevens, ANNE MARIE - 07/26/2024 10:53 AM EST Current Concerns: Patient seen for follow up- CKD4, CHF, COPD, [place]IN[place]O, DM2 Patient does NOT have [facility] equipment in home. CH BP cuff/ Spo2 and scale- scale not registering. Notified Janeth Kelley Vitals transmitting without difficulty Reports doing well. 7 day Average glucose- 199 Weights stable- has required 2 doses Metolazone in the last two weeks. Adhering to Low na diet. VS wnl Lungs clear but diminished Sob with exertion No LE edema noted Voiding without difficulty Bowels wnl Appetite good Taking fluids well. Physical Exam: Physical Exam Constitutional: Appearance: Normal appearance. Cardiovascular: [...] Negative. Neurological: Negative. Hematological: Negative. Psychiatric/Behavioral: Negative. Care Plan Goal Progress: GS - Patient/caregiver will verbalize proper technique in daily weight monitoring with heart failure. (Progressing) Start: 03/16/24 Expected End: 10/26/24 GS - Patient/caregiver will verbalize importance of fluid restriction compliance in the management of heart failure (Progressing) Start: 03/16/24 Expected End: 11/23/24 GS - Patient/caregiver will verbalize importance of a heart failure action plan in the management of heart failure. (Progressing) Start: 03/16/24 Expected End: 11/23/24 GS - Patient/caregiver will verbalize importance of managing blood pressure to reduce progression of heart failure. (Progressing) Start: 03/16/24 Expected End: 11/23/24 GS - Patient/caregiver will verbalize importance of regular physical activity in the management of heart failure. (Progressing) Start: 03/16/24 Expected End: 11/23/24 GS - Patient/caregiver will verbalize an understanding of diagnosis, treatment and self management of heart failure (Progressing) Start: 03/16/24 Expected End: 10/26/24 GS - Patient/caregiver will verbalize heart failure action plan and activation triggers. (Progressing) Start: 03/16/24 Expected End: 11/23/24 GS - Patient/caregiver will notify provider with weight gain with heart failure as per established limits set by provider. (Progressing) Start: 03/16/24 Expected End: 10/26/24 GS - Patient/caregiver will verbalize understanding of complications related to heart failure. (Progressing) Start: 03/16/24 Expected End: 10/26/24 Orders Placed: No orders of the defined types were placed in this encounter. Medications Given: Care Gaps: Care Gaps Care gaps closed this contact: Education (07/26/24 8260) Type of education: Clinical/disease (07/26/24 4490) documented in this encounter Plan of Treatment Upcoming Encounters Date Type Department Care Team (Late st Contact Info) Description 08/01/2024 2:20 PM EST Office Visit Family Practice [address] [place] [address] 293 [place] [address] Igor Mcconnell, 293 [facility] [place] [address] 08/01/2024 3:00 PM EST Office Visit Family Practice [facility] 293 [place] [phone] College, Pharmacist [address] [place] [address] 08/08/2024 9:30 AM EST Nurse Only Ancillary [address] [place] [address] [place], Nurse [address] [place] [address] 08/30/2024 8:30 AM EST [facility] 132 [facility] [place] [address] Love Stevens RN 132 [facility] [place] [address] 09/27/2024 11:30 AM EDT Telemedicine Cardiology [facility], [place] [address] [place] [address] [facility], Pharmacist Cardiology [facility] [address] [place] [address] 10/27/2024 1:00 PM EDT [facility] 132 [facility] [place] [phone] Lindsey Sheikh CRNP [address] [place] [address] 11/18/2024 2:00 PM EDT Office Visit Nephrology [address] [place] [address] ZemaitisLuisa PA-C [address] [place] [address] Scheduled Procedures Name Priority Associated Diagnoses Date/Ti [...] this encounter Medical Devices Implanted Type Area Fruit Coordinator Device Identifier Shelf Expiration Date Model / Serial / Lot Lens Intraoc 21.0 - [id number] - [id number] Implanted:Qty: 1 on 01/22/2017 by Cheko Mcnamara MD at OR [facility] Right: Eye [employer]OM[employer] 08/05/2021 [id number] / [id number] / [id number] Lens Intraoc 21.5 - [id number] - [id number] Implanted:Qty: 1 on 02/03/2017 by Cheko Mcnamara MD at OR [facility] Left: Eye [employer]USCH [employer] LOMB 09/02/2021 [id number] / [id number] / [id number] Hemostatic Clip Res 235cm - [id number] Implanted:Qty: 4 on 06/13/2024 by José Miguel Sifuentes MD at ENDOSCOPY [facility] : ENDOSCOPY 10/12/2026 [id number] / / [id number] Hemostatic Clip Res 235cm - [id number] Implanted:Qty: 4 on 06/13/2024 by José Miguel Sifuentes MD at ENDOSCOPY [facility] : ENDOSCOPY 03/18/2027 [id number] / / [id number] documented as of this encounter Advance Directives [...] consensually agreed upon. Care Teams Director Of Outreach Relationship Specialty Start Date End Date Igor Mcconnell DO [address] [place] [address] PCP - General Internal Medicine 02/12/24 documented as of this encounter
--- OUTSIDE RECORDS SUMMARY | 2024-08-26 02:21 | External Medical Summary | Summary of Care ---
Author Name Unknown Organization [facility] Address [address] [facility] [place] [address] Phone [phone] Care Team Providers Care Manager Personnel Selection Name Role Phone Igor Mcconnell DO Primary Care Provider [phone] Reason for Visit * Reason Onset Date Comments [facility]: Maintenance 07/23/2024 Encounter Details Date Type Department Care Team (Late st Contact Info) Description 07/23/2024 Telephone [facility], [place] [address] [place], [place] [address] [address] Christy Choudhury, [employer] [address] [facility] [place] [address] [facility]: Maintenance Allergies Active Allergy Reactions Criticality Noted Date Comments Metolazone Renal complications 11/10/2023 Note prior DTP with metolazone resulted in acute renal failure Other Allergy (See Comments) Rash Low 10/13/2022 1+ cocamidopropyl betaine Sglt2 Inhibitors Other (Please comment) High 09/04/2020 Genital infection Sulfa Antibiotics Rash 10/15/2016 documented as of this encounter (statuses as of 07/23/2024) Medications Aspirin 81 MG Tablet Take 1 [...] 38 UNITS WITH DINNER PLUS CORRECTION PER [facility] OR DIRECTED UP TO 120 UNITS PER DAY 120 mL 3 4 11:17 AM EST 03/21/20 24 Active DIURETIC TITRATION PLAN If no improvement on day 3, contact [facility] for possible home visit 1 Each 03/24/20 24 Active Evolocumab 140 MG/ML Subcutaneous Solution Auto-injector (Repatha SureClick)Indicati ons:Dyslipidemia, goal LDL below 100,Mixed dyslipidemia Inject 140 mg under the skin every 14 days. 6 mL 3 4 11:42 AM EST 03/24/20 24 Active Additional Information Patient taking differently:140 mg Subcutaneous Y8ALEMI,Om Fridays, Reported on 07/01/2024 Unifine Pentips 31G X 8 MM (Insulin Pen Needle)Indications :Type 2 diabetes mellitus with hemoglobin A1c goal of less than 7.0% (HCC) USE TO INJECT INSULINS 5 TIMES DAILY 500 Each 3 5 5:15 PM EST 04/18/20 24 Active Xrzcc-8-hgff Ethyl Esters 1 GM Oral Capsule (Lovaza) [...] disease, with long-term current use of insulin ([facility]) Inject 2 mg under the [...] hemoglobin A1c goal of less than 7.0% ([facility]) Inject 116 Units under the skin in the morning and 116 Units in the evening. 108 mL 2 5 10:47 AM EST 07/20/19 Active documented as of this encounter (statuses as of 07/23/2024) Active Problems Patient Care Coordination No te Formatting of this note migh t be different from the original. Heart Failure Self-Management and Exacerbation Plan "RED FLAG" HF Symptoms: Leg Swelling Abdominal Bloating Increased dyspnea on exertion Increased shortness of breath at rest Orthopnea Remote Patient Monitoring Vendor: [employer] Device(s): Connected Scale Self - Management Plan [...] in the Comments) Remote Patient Monitoring Vendor: [employer] Device(s): Connected Scale Self - Management Plan [...] as of this encounter (statuses as of 07/23/2024) Resolved Problems Problem Noted Date Diagnosed Date [...] has been better controlled recently. Monitor using [employer] Touch Cindy. Assessment & Plan (12/19/2022 11:13 AM [...] as of this encounter (statuses as of 07/23/2024) Immunizations Name Administration Dates Next Due COVID-19 mRNA, LNP-s, No Pre serve, 2-Dose Series (Moderna) 12/10/2020,11/12/2020 Hepatitis B, 20+ yrs 01/04/2018,08/03/2017,07/03 Pneumococcal Conjugate Vacci ne, 20-valent (Qmfeuwf38) 06/09/2022 Pneumococcal Polysaccharide PPV23 (Pneumovax) 03/06/2020 RSV [...] Telephone Encounter - Christy Choudhury LPN - 07/23/2024 11:26 AM EST Received message in CH from patient cannot get scale to transmit Sent chat to reach out to patient regarding issue and made patient aware they will contact to assist documented in this encounter Plan of Treatment Upcoming Encounters Date Type Department Care Team (Late st Contact Info) Description 07/26/2024 8:30 AM EST [facility] Visit [facility] [address] [place] [address] Love Stevens RN 132 [facility] [place] [address] 08/01/2024 2:20 PM EST Office Visit Family Practice 65 [facility] 293 [facility], [place] [address] Igor Mcconnell DO 293 [facility] [address] 08/01/2024 3:00 PM EST Office Visit Family Practice 65 [facility] 293 [facility] [address] College, Pharmacist [address] [facility] 293 [facility] [place] [address] 08/08/2024 9:30 AM EST Nurse Only Ancillary [address] [place] [address] [place], Nurse [address] [place] [address] 09/27/2024 11:30 AM EDT Telemedicine Cardiology [facility], [place] [address] [place] [address] [facility], Pharmacist Cardiology [facility] [address] [place] [address] 10/27/2024 1:00 PM EDT Office Visit [facility] Ctr [facility] [address] [facility] [address] Lindsey Sheikh CRNP [address] [facility] [place] [address] 11/18/2024 2:00 PM EDT Office Visit Nephrology [address] [place] [address] Zemaitis, Luisa Guzman PA-C [address] [place], [place] [address] Scheduled Procedures Name Priority Associated Diagnoses Date/Ti [...] 05/13/2024, 08/3 07/2021, 09/12/2020 Phosphate 05/13/2025 05/13/2024, 0408/2023, 10/23/2023, Additional history exists Albumin/Creatinine Ratio 05/18/2025 [...] encounter Medical Devices Implanted Type Area Certified Shorthand Reporter Device Identifier Shelf Expiration Date Model / Serial / Lot Lens Intraoc 21.0 - [id number] - [id number] Implanted:Qty: 1 on 01/22/2017 by Cheko Mcnamara MD at OR [facility] Right: Eye [employer] 08/05/2021 [id number] / [id number] / [id number] Lens Intraoc 21.5 - [id number] - [id number] Implanted:Qty: 1 on 02/03/2017 by Cheko Mcnamara MD at OR [facility] Left: Eye [employer]USCH [employer] LOMB 09/02/2021 [id number] / [id number] / [id number] Hemostatic Clip Res 235cm - [id number] Implanted:Qty: 4 on 06/13/2024 by José Miguel Sifuentes MD at ENDOSCOPY [facility] [employer] : ENDOSCOPY 10/12/2026 [id number] / / [id number] Hemostatic Clip Res 235cm - [id number] Implanted:Qty: 4 on 06/13/2024 by José Miguel Sifuentes MD at ENDOSCOPY [facility] [employer] : ENDOSCOPY 03/18/2027 [id number] / / [id number] documented as of this encounter Advance Directives [...] were consensually agreed upon. Care Teams Manager Personnel Selection Relationship Specialty Start Date End Date Igor Mcconnell DO [address] [place] [address] PCP - General Internal Medicine 02/12/24 documented as of this encounter
--- OUTSIDE RECORDS SUMMARY | 2024-08-26 02:21 | External Medical Summary | Summary of Care ---
Author Name Unknown Organization [facility] Address [address] [facility] [place] [address] Phone [phone] Care Team Providers Care Consulting Sales Manager Name Role Phone Igor Mcconnell DO Primary Care Provider [phone] Reason for Referral * Medication Prior Authorization - Closed Specialty Diagnoses / Procedures Referred By Christin t Referred To Contact Diagnoses Type 2 diabetes mellitus with hemoglobin A1c goal of less than 7.0% ([facility]) Snow Boone, [facility] [address] [place] [address] Phone: tel: fax: Referral ID Status Reason Start Date Expiration Date Visits Re quested Visits Authorized [id number] Closed [phone] Reason for Visit * Reason Onset Date Comments Pre Cert/Prior Auth 07/15/2024 Tresiba flex touch 200 unit Encounter Details Date Type Department Care Team (Late st Contact Info) Description 07/15/2024 Telephone Family Medicine [address] [place] [phone] Bárbara Rios DO [address] [place] [address] [place] [address] Pre Cert/Prior Auth (Tresiba flextouch 200... Allergies [...] 38 UNITS WITH DINNER PLUS CORRECTION PER [facility] OR DIRECTED UP TO 120 UNITS PER DAY 120 mL 3 4 11:17 AM EST 03/21/20 Active DIURETIC TITRATION PLAN If no improvement on day 3, contact [facility] for possible home visit 1 Each 03/24/20 Active Evolocumab 140 MG/ML Subcutaneous Solution Auto-injector (Repatha SureClick)Indicati ons:Dyslipidemia, goal LDL below 100,Mixed dyslipidemia Inject 140 mg under the skin every 14 days. 6 mL 3 4 11:42 AM EST 03/24/20 Active Additional Information Patient taking differently:140 mg Subcutaneous [id number],Om Fridays, Reported on 07/01/2024 Unifine Pentips 31G X 8 MM (Insulin Pen Needle)Indications :Type 2 diabetes mellitus with hemoglobin A1c goal of less than 7.0% (HCC) USE TO INJECT INSULINS 5 TIMES DAILY 500 Each 3 5 5:15 PM EST 04/18/20 Active Nqech-6-rpuw Ethyl Esters 1 GM Oral Capsule (Lovaza) Take 2 Capsules by mouth in the morning and 2 Capsules before bedtime. 360 Capsule 1 4 6:26 AM EST 04/18/20 Active metOLazone 2.5 MG Oral Tablet (Zaroxolyn)Indicat [...] 4 6:26 AM EST 06/27/20 24 Active Tresiba FlexTouch 200 UNIT/ML Subcutaneous Solution Pen-injectorIndica tions:Type 2 diabetes mellitus with hemoglobin A1c goal of less than 7.0% (HCC) Inject 116 Units under the skin in the morning and 116 Units in the evening. 90 mL 2 07/15/19 25 Active Tresiba FlexTouch 200 UNIT/ML Subcutaneous Solution Pen-injectorIndica tions:Type 2 diabetes mellitus with hemoglobin A1c goal of less than 7.0% (HCC) INJECT UNDER THE SKIN 100 UNITS TWICE DAILY OR DIRECTED 90 mL 3 4 10:11 AM EDT 01/18/20 24 025 Discontin ued(Refil l) documented as of this encounter (statuses as of 07/20/2024) Active Problems Patient Care Coordination No te Formatting of this note migh t be different from the original. Heart Failure Self-Management and Exacerbation Plan "RED FLAG" HF Symptoms: Leg Swelling Abdominal Bloating Increased dyspnea on exertion Increased shortness of breath at rest Orthopnea Remote Patient Monitoring Vendor: [facility] Device(s): Connected Scale Self - Management Plan [...] Remote Patient Monitoring Vendor: [facility] Device(s): Connected Scale Self - Management Plan [...] yrs 01/04/2018,08/03/2017,07/03 Pneumococcal Conjugate Vacci ne, 20-valent ([id number]) 06/09/2022 Pneumococcal Polysaccharide PPV23 (Pneumovax) 03/06/2020 RSV [...] No 05/02/2024 Does the household have a [facility] source of income? (Household - for ages [...] encounter Miscellaneous Notes * Telephone Encounter - Myrtle Hui clocksmith - 07/20/2024 1:54 PM EST Please remove ave from Tresiba FlexTouch 200 UNIT/ML Subcutaneous Solution Pen-injector Also need 108 ml , Thank you, Myrtle Hui,[facility] Can Washer II [facility] ([facility]) 07/20/2024,1:54 PM * Telephone Encounter - Randa Myrick PHARM Tech - 07/15/2024 4:51 PM EST Patients insurance would like to inform the office that TRESIBA FLEXTOUCH 200 UNIT/ML is not requiring review because this is now generic NDC:[id number]. No PA for generic required. Thank you, Randa Myrick CPhT Wire Products Inspector II [facility] ([facility]) 07/15/2024,4:51 PM * Telephone Encounter - Snow Boone RPh - 07/15/2024 2:40 PM EST Per 07/11/24 [...] Units in the evening. Thanks, Snow Boone [facility] Clinical Pharmacist [facility] Services ([facility]) [phone] * Telephone Encounter - Juvenal Maddox CPhT - 07/15/2024 2:38 PM EST This is a new PA request. Upon review of this prior authorization request, I verified this request is appropriate. This is prescribed by a department for which [facility] is authorized to review prior authorizations This [...] note, there is nothing currently pending in [facility] for this request. Please advise how to proceed. Thank you, Eleuterio Maddox ([facility]) Wire Products Inspector III [facility] ([facility]) 07/15/2024, 2:38 PM * Telephone Encounter - Charlene Hays CPhT - 07/15/2024 12:20 PM EST Pharmacy calling to inform doctor that the patient's insurance will not pay for this medication without a completed prior authorization. Did confirm this information with the pharmacy. Pt's current insurance information is as follows: Patient name: Tony Delong ID number: [id number] BIN number: [id number] PCN number: [id number] Group number: none Subscriber name: Tony Delong Primary or Secondary Insurance:Primary Medication: tresiba flextouch 200 unit Reason for Request: missing or invalid quantity dispensed Pharmacy and phone number: [facility] [phone] Rx plan and phone number: counts include [facility] beds at the [facility] [phone] Is this a new medication for the patient? Yes What alternative medications does the pharmacy have in stock?: none Thank you, Charlene Hays CphT Wire Products Inspector III [facility]) 07/15/24 documented in this encounter Plan of Treatment Upcoming Encounters Date Type Department Care Team (Late st Contact Info) Description 07/26/2024 8:30 AM EST Home Visit [facility] at [facility] [address] [place] [address] Love Stevens, ANNE MARIE 132 [place] [address] 08/01/2024 2:20 PM EST Office Visit Family Practice 65 [facility], [place] 293 [facility] [place] [address] Igor Mcconnell, 293 [place] [address] 08/01/2024 3:00 PM EST Office Visit Family Practice 65 [facility], [place] 293 [facility], [place] [address] College, Pharmacist [address], [place] [address] 08/08/2024 9:30 AM EST Nurse Only Ancillary [address] [place] [address] [place], Nurse [address] [place] [address] 09/27/2024 11:30 AM EDT Telemedicine Cardiology [facility], [place] [address] [place] [address] [place] [address], Pharmacist Cardiology [facility] [address] [place] [address] 10/27/2024 1:00 PM EDT Office Visit Sleep Disorders Ctr [facility] 132 [place] [phone] Lindsey Sheikh CRNP 132 [place] [address] 11/18/2024 2:00 PM EDT Office Visit Nephrology [address] [place] [address] ZemaitisLuisa PA-C [address] [place], [place] [address] Scheduled Procedures Name Priority Associated Diagnoses Date/Ti [...] 03/20/2022, Additional history exists Hgb 07/01/2025 07/01/2024, 1102/2024, 03/11/2024, Additional history exists DTap/Tdap Vaccines (2 [...] this encounter Medical Devices Implanted Type Area Copper Flotation Operator Device Identifier Shelf Expiration Date Model / Serial / Lot Lens Intraoc 21.0 - [id number] - [id number] Implanted:Qty: 1 on 01/22/2017 by Cheko Mcnamara MD at OR [facility] Right: Eye [employer]USCH [employer] LOMB 08/05/2021 [id number] / [id number] / [id number] Lens Intraoc 21.5 - [id number] - [id number] Implanted:Qty: 1 on 02/03/2017 by Cheko Mcnamara MD at OR [facility] Left: Eye BAUSCH & LOMB 09/02/2021 [id number] / [id number] / [id number] Hemostatic Clip Res 235cm - [id number] Implanted:Qty: 4 on 06/13/2024 by José Miguel Sifuentes MD at ENDOSCOPY [facility] : ENDOSCOPY 10/12/2026 [id number] / / [id number] Hemostatic Clip Res 235cm - [id number] Implanted:Qty: 4 on 06/13/2024 by José Miguel Sifuentes MD at ENDOSCOPY [facility] [employer] : ENDOSCOPY 03/18/2027 [id number] / / [id number] documented as of this encounter Visit Diagnoses [...] eye and macular edema, unspecified whether terminal operator insulin use (HCC) Chronic obstructive pulmonary [...] and were consensually agreed upon. Care Teams Consulting Sales Manager Relationship Specialty Start Date End Date Igor Mcconnell DO 293 [place] [address] PCP - General Internal Medicine 02/12/24 documented as of this encounter
--- OUTSIDE RECORDS SUMMARY | 2024-08-26 02:21 | External Medical Summary | Summary of Care ---
Author Name Unknown Organization [facility] Address [address] [facility] [place] [address] Phone [phone] Care Team Providers Care Phy Therapist Name Role Phone EnedinaIgor DO Primary Care Provider [phone] Encounter Details Date Type Department Care Team (Late st Contact Info) Description 07/19/2024 Population Health External Data Unspecified Department Allergies [...] hemoglobin A1c goal of less than 7.0% ([facility]) Use as directed every 14 [...] 38 UNITS WITH DINNER PLUS CORRECTION PER [facility] OR DIRECTED UP TO 120 UNITS PER DAY 120 mL 3 4 11:17 AM EST 03/21/20 24 Active DIURETIC TITRATION PLAN If no improvement on day 3, contact [facility] for possible home visit 1 Each 03/24/20 24 Active Evolocumab 140 MG/ML Subcutaneous Solution Auto-injector (Repatha SureClick)Indicati ons:Dyslipidemia, goal LDL below 100,Mixed dyslipidemia Inject 140 mg under the skin every 14 days. 6 mL 3 4 11:42 AM EST 03/24/20 24 Active Additional Information Patient taking differently:140 mg Subcutaneous [id number],Om Fridays, Reported on 07/01/2024 Unifine Pentips 31G X 8 MM (Insulin Pen Needle)Indications :Type 2 diabetes mellitus with hemoglobin A1c goal of less than 7.0% ([facility]) USE TO INJECT INSULINS 5 TIMES DAILY 500 Each 3 5 5:15 PM EST 04/18/20 24 Active Udvhh-7-razn Ethyl Esters 1 GM Oral Capsule (Lovaza) [...] disease, with long-term current use of insulin ([facility]) Inject 2 mg under the [...] hemoglobin A1c goal of less than 7.0% ([facility]) Inject 116 Units under the [...] at rest Orthopnea Remote Patient Monitoring Vendor: [facility] [...] in the Comments) Remote Patient Monitoring Vendor: [employer] Device(s): Connected Scale Self - Management Plan Double dose of Torsemide for 3 days Exacerbation Plan BMP Chest X-Ray Additional Comments: Recommended using double torsemide for 3 days in a row, rather than 1 day like he has been doing Continue using [employer] scale Low sodium diet Assessment & Plan [...] has been better controlled recently. Monitor using [employer] Cindy. Assessment & Plan (12/19/2022 11:13 AM [...] yrs 01/04/2018,08/03/2017,07/03 Pneumococcal Conjugate Vacci ne, 20-valent ([id number]) 06/09/2022 Pneumococcal Polysaccharide PPV23 (Pneumovax) 03/06/2020 RSV [...] Description 07/26/2024 8:30 AM EST Home Visit [facility] 132 [facility] [place] [address] Love Stevens, ANNE MARIE 132 [facility] [place] [address] 08/01/2024 2:20 PM EST Office Visit Family Practice [address] [place] [address] 293 [place] [address] Igor Mcconnell DO 293 [place] [address] 08/01/2024 3:00 PM EST Office Visit Family Practice [address] [place] [address] 293 [place] [phone] College, Pharmacist [address] [place] [address] 08/08/2024 9:30 AM EST Nurse Only Ancillary [address] [place] [address] [place], Nurse [address] [place] [address] 09/27/2024 11:30 AM EDT Telemedicine Cardiology [facility], [place] [address] [facility] [place] [address] [facility], Pharmacist Cardiology [facility] [address] [facility] [address] 10/27/2024 1:00 PM EDT [facility] [address] [place] [address] Lindsey Sheikh CRNP [address] [place] [address] 11/18/2024 2:00 PM EDT Office Visit Nephrology [address] [place] [address] ZemaLuisa leslie PA-C [address] [place] [address] Scheduled Procedures Name Priority Associated Diagnoses Date/Ti [...] this encounter Medical Devices Implanted Type Area Mobility Manager Device Identifier Shelf Expiration Date Model / Serial / Lot Lens Intraoc 21.0 - [id number] - [id number] Implanted:Qty: 1 on 01/22/2017 by Cheko Mcnamara MD at OR [facility] Right: Eye BAUSCH [employer] LOMB 08/05/2021 [id number] / [id number] / [id number] Lens Intraoc 21.5 - [id number] - [id number] Implanted:Qty: 1 on 02/03/2017 by Cheko Mcnamara MD at OR [facility] Left: Eye BAUSCH & LOMB 09/02/2021 [id number] / [id number] / [id number] Hemostatic Clip Res 235cm - [id number] Implanted:Qty: 4 on 06/13/2024 by José Miguel Sifuentes MD at ENDOSCOPY [facility] : ENDOSCOPY 10/12/2026 [id number] / / [id number] Hemostatic Clip Res 235cm - [id number] Implanted:Qty: 4 on 06/13/2024 by José Miguel Sifuentes MD at ENDOSCOPY [facility] : ENDOSCOPY 03/18/2027 [id number] / / [id number] documented as of this encounter Advance Directives [...] and were consensually agreed upon. Care Teams Phy Therapist Relationship Specialty Start Date End Date Igor Mcconnell DO 293 [facility] [address] PCP - General Internal Medicine 02/12/24 documented as of this encounter
--- OUTSIDE RECORDS SUMMARY | 2024-08-26 02:22 | External Medical Summary | Summary of Care ---
Author Name Unknown Organization [facility] Address [address] [facility] [place] [address] Phone [phone] Care Team Providers Care Copier Repair Technician Name Role Phone Igor Mcconnell DO Primary Care Provider [phone] Reason for Referral * Medication Prior Authorization - Pending Review Specialty Diagnoses / Procedures Referred By Contcoby t Referred To Contact Diagnoses Type 2 diabetes mellitus with hemoglobin A1c goal of less than 7.0% ([facility]) Snow Boone, [facility] [address] [place] [address] Phone: tel: fax: Referral ID Status Reason Start Date Expiration Date V isits Requested Visits Authorized [id number] Pending Review 999 440 Reason for Visit * Reason Onset Date Comments Pre Cert/Prior Auth 07/15/2024 Tresiba flex touch 200 unit Encounter Details Date Type Department Care Team (Late st Contact Info) Description 07/15/2024 Telephone Family Medicine [address] [place] [phone] Bárbara Rios DO [address] [place] [address] [place] [address] Pre Cert/Prior Auth (Tresiba flextouch 200... Allergies Active Allergy Reactions Criticality Noted Date Comments Metolazone Renal complications 11/10/2023 Note prior DTP with metolazone resulted in acute renal failure Other Allergy (See Comments) Rash Low 10/13/2022 1+ cocamidopropyl betaine Sglt2 Inhibitors Other (Please comment) High 09/04/2020 Genital infection Sulfa Antibiotics Rash 10/15/2016 documented as of this encounter (statuses as of 07/15/2024) Medications Aspirin 81 MG Tablet Take 1 [...] Tablet 3 4 11:17 AM EST 03/17/20 Active NovoLOG FlexPen 100 UNIT/ML Subcutaneous Solution Pen-injectorIndica tions:Type 2 diabetes mellitus with hemoglobin A1c goal of less than 7.0% (HCC) INJECT UNDER THE SKIN 20 UNITS AT BREAKFAST, 26 UNITS AT LUNCH, 38 UNITS WITH DINNER PLUS CORRECTION PER [facility] OR DIRECTED UP TO 120 UNITS PER DAY 120 mL 3 4 11:17 AM EST 03/21/20 Active DIURETIC TITRATION PLAN If no improvement on day 3, contact [facility] for possible home visit 1 Each 03/24/20 Active Evolocumab 140 MG/ML Subcutaneous Solution Auto-injector (Repatha SureClick)Indicati ons:Dyslipidemia, goal LDL below 100,Mixed dyslipidemia Inject 140 mg under the skin every 14 days. 6 mL 3 4 11:42 AM EST 03/24/20 Active Additional Information Patient taking differently:140 mg Subcutaneous [id number],Om Fridays, Reported on 07/01/2024 Unifine Pentips 31G X 8 MM (Insulin Pen Needle)Indications :Type 2 diabetes mellitus with hemoglobin A1c goal of less than 7.0% (HCC) USE TO INJECT INSULINS 5 TIMES DAILY 500 Each 3 4 7:46 AM EDT 04/18/20 Active Isvod-2-idta Ethyl Esters 1 GM Oral Capsule (Lovaza) [...] as of this encounter (statuses as of 07/15/2024) Active Problems Patient Care Coordination No te Formatting of this note migh t be different from the original. Heart Failure Self-Management and Exacerbation Plan "RED FLAG" HF Symptoms: Leg Swelling Abdominal Bloating Increased dyspnea on exertion Increased shortness of breath at rest Orthopnea Remote Patient Monitoring Vendor: [facility] Device(s): Connected Scale [...] in the Comments) Remote Patient Monitoring Vendor: [facility] Device(s): Connected Scale [...] as of this encounter (statuses as of 07/15/2024) Resolved Problems Problem Noted Date Diagnosed Date [...] as of this encounter (statuses as of 07/15/2024) Immunizations Name Administration Dates Next Due COVID-19 mRNA, LNP-s, No Pre serve, 2-Dose Series (Moderna) 12/10/2020,11/12/2020 Hepatitis B, 20+ yrs 01/04/2018,08/03/2017,07/03 Pneumococcal Conjugate Vacci ne, 20-valent ([id number]) 06/09/2022 Pneumococcal Polysaccharide PPV23 (Pneumovax) 03/06/2020 RSV [...] encounter Miscellaneous Notes * Telephone Encounter - Randa Myrick, bin worker - 07/15/2024 4:51 PM EST Patients insurance would like to inform the office that TRESIBA FLEXTOUCH 200 UNIT/ML is not requiring review because this is now generic NDC:[id number]. No PA for generic required. Thank you, Randa Myrick information security director Industrial Retrofit Designer II [facility] ([facility]) 07/15/2024,4:51 PM * Telephone Encounter - Snow Boone [facility] - 07/15/2024 2:40 PM EST Per 07/11/24 [...] Units in the evening. Thanks, Snow Boone [facility] Clinical Pharmacist [facility] ([facility]) [phone] * Telephone Encounter - Juvenal Maddox CPhT - 07/15/2024 2:38 PM EST This is a new PA request. Upon review of this prior authorization request, I verified this request is appropriate. This is prescribed by a department for which [facility] is authorized to review prior authorizations [...] Please advise how to proceed. Thank you, Elueterio Maddox ([facility]) Industrial Retrofit Designer III [facility] ([facility]) 07/15/2024, 2:38 PM * Telephone Encounter - Charlene Hays CPhT - 07/15/2024 12:20 PM EST Pharmacy calling to inform doctor that the patient's insurance will not pay for this medication without a completed prior authorization. Did confirm this information with the pharmacy. Pt's current insurance information is as follows: Patient name: Tony Delong ID number: [id number] BIN number: [id number] PCN number: [id number] Group number: none Subscriber name: Tony Delong Primary or Secondary Insurance:Primary Medication: tresiba flextouch 200 unit Reason for Request: missing or invalid quantity dispensed Pharmacy and phone number: [facility] [phone] Rx plan and phone number: [facility] [phone] Is this a new medication for the patient? Yes What alternative medications does the pharmacy have in stock?: none Thank you, Charlene Hays CphT Industrial Retrofit Designer III [facility]) 07/15/24 documented in this encounter Plan of Treatment Upcoming Encounters Date Type Department Care Team (Late st Contact Info) Description 07/26/2024 8:30 AM EST Home Visit [facility] at [place], [facility] 132 [facility] [place] [address] Love Stevens RN 132 [facility] [place] [address] 08/01/2024 2:20 PM EST Office Visit Family Practice 65 [facility] 293 [place] [phone] Igor Mcconnell DO 293 [facility] [place] [address] 08/01/2024 3:00 PM EST Office Visit Family Practice 65 [facility] 293 [facility], [place] [phone] College, Pharmacist [address] [place] [address] 08/08/2024 9:30 AM EST Nurse Only Ancillary [address] [place] [address] [place], Nurse [address] [place] [address] 09/27/2024 11:30 AM EDT Telemedicine [facility] [place] [address] [place] [address] [facility], Pharmacist Cardiology [facility] [address] [place] [address] 10/27/2024 1:00 PM EDT Office Visit Sleep Disorders Ctr [place] [address] [place] [place] [address] Lindsey Sheikh CRNP [address] [place] [address] 11/18/2024 2:00 PM EDT Office Visit Nephrology [address] [place] [address] Zemaitis, Luisa Guzman PA-C [address] [place] [address] Scheduled Procedures Name Priority Associated Diagnoses Date/Ti [...] 10/21/2023, Additional history exists PTH 05/13/2025 05/13/2024, 3 07/2021, 09/12/2020 Phosphate 05/13/2025 05/13/2024, 2 08/2023, 10/23/2023, Additional history exists Albumin/Creatinine Ratio [...] this encounter Medical Devices Implanted Type Area Oim Architect Device Identifier Shelf Expiration Date Model / Serial / Lot Lens Intraoc 21.0 - [id number] - [id number] Implanted:Qty: 1 on 01/22/2017 by Cheko Mcnamara MD at OR [facility] Right: Eye BAUSCH [employer] LOMB 08/05/2021 [id number] / [id number] / [id number] Lens Intraoc 21.5 - [id number] - [id number] Implanted:Qty: 1 on 02/03/2017 by Cheko Mcnamara MD at OR [facility] Left: Eye BAUSCH & LOMB 09/02/2021 [id number] / [id number] / [id number] Hemostatic Clip Res 235cm - [id number] Implanted:Qty: 4 on 06/13/2024 by José Miguel Sifuentes MD at ENDOSCOPY [facility] [employer] : ENDOSCOPY 10/12/2026 [id number] / / [id number] Hemostatic Clip Res 235cm - [id number] Implanted:Qty: 4 on 06/13/2024 by José Miguel Sifuentes MD at ENDOSCOPY [facility] [employer] : ENDOSCOPY 03/18/2027 [id number] / / [id number] documented as of this encounter Visit Diagnoses Diagnosis Hypertensive 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 (HCC)- Primary [place] on CPAP Obstructive sleep apnea (adult) (pediatric) Type 2 diabetes mellitus with stage 3b chronic kidney disease, with long-term current use of insulin ([facility]) Advanced care planning/counseling discussion- Primary Other [...] right eye and macular edema, unspecified whether intermission coordinator insulin use (HCC) Chronic obstructive pulmonary disease, [...] and were consensually agreed upon. Care Teams Copier Repair Technician Relationship Specialty Start Date End Date Igor Mcconnell DO 293 [facility] [place] [address] PCP - General Internal Medicine 02/12/24 documented as of this encounter
--- OUTSIDE RECORDS SUMMARY | 2024-08-26 02:22 | External Medical Summary | Summary of Care ---
Author Name Unknown Organization [facility] Address [address] [facility] [place] [address] Phone [phone] Care Team Providers Care Auto Body Repair Estimator Name Role Phone Igor Mcconnell DO Primary Care Provider [phone] Reason for Visit * Reason Comments Outpatient Testing Encounter Details Date Type Department Care Team (Late st Contact Info) Description 07/18/2024 9:40 AM EST Laboratory Laboratory [address] [place] [phone] [place] [address] Abnormal LFTs Allergies Active Allergy Reactions Criticality Noted Date Comments Metolazone Renal complications 11/10/2023 Note prior DTP with metolazone resulted in acute renal failure Other Allergy (See Comments) Rash Low 10/13/2022 1+ cocamidopropyl betaine Sglt2 Inhibitors Other (Please comment) High 09/04/2020 Genital infection Sulfa Antibiotics Rash 10/15/2016 documented as of this encounter (statuses as of 07/18/2024) Medications Aspirin 81 MG Tablet Take 1 [...] 38 UNITS WITH DINNER PLUS CORRECTION PER [facility] OR DIRECTED UP TO 120 UNITS PER DAY 120 mL 3 4 11:17 AM EST 03/21/20 24 Active DIURETIC TITRATION PLAN If no improvement on day 3, contact [facility] for possible home visit 1 Each 03/24/20 24 Active Evolocumab 140 MG/ML Subcutaneous Solution Auto-injector (Repatha SureClick)Indicati ons:Dyslipidemia, goal LDL below 100,Mixed dyslipidemia Inject 140 mg under the skin every 14 days. 6 mL 3 4 11:42 AM EST 03/24/20 24 Active Additional Information Patient taking differently:140 mg Subcutaneous D5AQPAR,Om Fridays, Reported on 07/01/2024 Unifine Pentips 31G X 8 MM (Insulin Pen Needle)Indications :Type 2 diabetes mellitus with hemoglobin A1c goal of less than 7.0% (HCC) USE TO INJECT INSULINS 5 TIMES DAILY 500 Each 3 5 5:15 PM EST 04/18/20 24 Active Verbh-6-fiax Ethyl Esters 1 GM Oral Capsule (Lovaza) [...] of less than 7.0% ([facility]) Inject 116 Units under the skin in the morning and 116 Units in the evening. 90 mL 2 07/15/19 25 Active documented as of this encounter (statuses as of 07/18/2024) Active Problems Patient Care Coordination No te Formatting of this note migh t be different from the original. Heart Failure Self-Management and Exacerbation Plan "RED FLAG" HF Symptoms: Leg Swelling Abdominal Bloating Increased dyspnea on exertion Increased shortness of breath at rest Orthopnea Remote Patient Monitoring Vendor: [facility] Device(s): Connected Scale Self - Management Plan [...] in the Comments) Remote Patient Monitoring Vendor: [employer] Device(s): Connected Scale Self - Management Plan [...] as of this encounter (statuses as of 07/18/2024) Resolved Problems Problem Noted Date Diagnosed Date [...] has been better controlled recently. Monitor using [employer] Cindy. Assessment & Plan (12/19/2022 11:13 AM [...] as of this encounter (statuses as of 07/18/2024) Immunizations Name Administration Dates Next Due COVID-19 mRNA, LNP-s, No Pre serve, 2-Dose Series (Moderna) 12/10/2020,11/12/2020 Hepatitis B, 20+ yrs 01/04/2018,08/03/2017,07/03 Pneumococcal Conjugate Vacci ne, 20-valent ([id number]) 06/09/2022 Pneumococcal Polysaccharide PPV23 (Pneumovax) 03/06/2020 RSV [...] Description 07/26/2024 8:30 AM EST Home Visit [facility] [address] [place] [address] Love Stevens RN 132 [facility] [place] [address] 08/01/2024 2:20 PM EST Office Visit Family Practice [address] [place] [phone] Igor Mcconnell, [address] [place] [address] 08/01/2024 3:00 PM EST Office Visit Family Practice 65 [facility] 293 [place] [address] College, Pharmacist [address] [address] 08/08/2024 9:30 AM EST Nurse Only Ancillary [address] [place] [address] [place], Nurse [address] [place] [address] 09/27/2024 11:30 AM EDT Telemedicine Cardiology [address] [address] [place], Pharmacist Cardiology [facility] [address] [facility] [place] [address] 10/27/2024 1:00 PM EDT Office Visit Sleep Disorders Ctr [facility]iano [facility] [address] [place] [phone] Lindsey Sheikh CRNP [address] [place] [address] 11/18/2024 2:00 PM EDT Office Visit Nephrology [address] [place] [phone] ZeLuisa reyes PA-C [address] [place] [address] Pending Results Name Type Priority Associated Diagnoses Date /Time HEPATIC FUNCTION PANEL Lab Routine Abnormal LFTs 07/18/2024 9:41 AM EST Scheduled Procedures Name Priority Associated [...] this encounter Medical Devices Implanted Type Area Instructor Physical Device Identifier Shelf Expiration Date Model / Serial / Lot Lens Intraoc 21.0 - [id number] - [id number] Implanted:Qty: 1 on 01/22/2017 by Cheko Mcnamara MD at OR [facility] Right: Eye [employer] 08/05/2021 [id number] / [id number] / [id number] Lens Intraoc 21.5 - [id number] - [id number] Implanted:Qty: 1 on 02/03/2017 by Cheko Mcnamara MD at [facility] Left: Eye [employer]OM[employer] 09/02/2021 [id number] / [id number] / [id number] Hemostatic Clip Res 235cm - [id number] Implanted:Qty: 4 on 06/13/2024 by José Miguel Sifuentes MD at ENDOSCOPY [facility] [employer] : ENDOSCOPY 10/12/2026 [id number] / / [id number] Hemostatic Clip Res 235cm - [id number] Implanted:Qty: 4 on 06/13/2024 by José Miguel Sifuentes MD at ENDOSCOPY [facility] [employer] : ENDOSCOPY 03/18/2027 [id number] / / [id number] documented as of this encounter Visit Diagnoses Diagnosis Hypertensive 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 (HCC)- Primary [place]APIN[place]O on CPAP Obstructive sleep apnea (adult) (pediatric) Type 2 diabetes mellitus with stage 3b chronic kidney disease, with long-term current use of insulin ([facility]) Advanced care planning/counseling discussion- Primary Other specified [...] right eye and macular edema, unspecified whether exterminator termite insulin use (HCC) Chronic obstructive pulmonary disease, unspecified COPD type (HCC) Sacroiliitis (HCC) Sacroiliitis, not elsewhere classified Other specified peripheral vascular diseases (HCC) Coronary artery calcification seen on CT scan Mixed dyslipidemia Mixed hyperlipidemia Abnormal LFTs Other abnormal blood chemistry documented in this [...] and were consensually agreed upon. Care Teams Auto Body Repair Estimator Relationship Specialty Start Date End Date Igor Mcconnell DO [address] [place] [place] [address] PCP - General Internal Medicine 02/12/24 documented as of this encounter
--- OUTSIDE RECORDS SUMMARY | 2024-08-26 02:22 | External Medical Summary | Summary of Care ---
Author Name Unknown Organization [facility] Address [address] [facility] [place] [address] Phone [phone] Care Team Providers Care Security Manager Name Role Phone Igor Mcconnell DO Primary Care Provider [phone] Encounter Details Date Type Department Care Team (Late st Contact Info) Description 07/13/2024 Orders Only Cardiology, [place] [address] [facility] [place] [address] [facility] [address] [facility] [place] [address] Dyslipidemia, goal LDL below 100; Abnormal LFTs Allergies Active Allergy Reactions Criticality Noted Date Comments Metolazone Renal complications 11/10/2023 Note prior DTP with metolazone resulted in acute renal failure Other Allergy (See Comments) Rash Low 10/13/2022 1+ cocamidopropyl betaine Sglt2 Inhibitors Other (Please comment) High 09/04/2020 Genital infection Sulfa Antibiotics Rash 10/15/2016 documented as of this encounter (statuses as of 07/13/2024) Medications Aspirin 81 MG Tablet Take 1 [...] 4 1:03 PM EDT 01/18/20 24 Active Tresiba FlexTouch 200 UNIT/ML Subcutaneous Solution Pen-injectorIndica tions:Type 2 diabetes mellitus with hemoglobin A1c goal of less than 7.0% (HCC) INJECT UNDER THE SKIN 100 UNITS TWICE DAILY OR DIRECTED 90 mL 3 4 10:11 AM EDT 01/18/20 24 025 Active Additional Information Patient taking differently: 116 Units Subcutaneous BID(Non-Specified), Reported on 07/01/2024 Vitamin D 125 MCG (5000 UT) Oral [...] If no improvement on day 3, contact [facility] for possible home visit 1 Each 03/24/20 24 Active Evolocumab 140 MG/ML Subcutaneous Solution Auto-injector (Repatha SureClick)Indicati ons:Dyslipidemia, goal LDL below 100,Mixed dyslipidemia Inject 140 mg under the skin every 14 days. 6 mL 3 4 11:42 AM EST 03/24/20 Active Additional Information Patient taking differently:140 mg Subcutaneous O2NPVUT,Om Fridays, Reported on 07/01/2024 Unifine Pentips 31G X 8 MM (Insulin Pen Needle)Indications :Type 2 diabetes mellitus with hemoglobin A1c goal of less than 7.0% (HCC) USE TO INJECT INSULINS 5 TIMES DAILY 500 Each 3 4 7:46 AM EDT 04/18/20 24 Active Wcorr-9-cngq Ethyl Esters 1 GM Oral Capsule (Lovaza) [...] Tablets before bedtime. 360 Tablet 3 05/30/20 Active Spironolactone 25 MG Oral Tablet (Aldactone) Take 1 Tablet by mouth in the morning. 90 Tablet 3 4 1:44 PM EST 05/30/20 Active Pravastatin Sodium 20 MG Oral Tablet (Pravachol) Take 1 Tablet by mouth daily. 30 Tablet 11 4 1:13 PM EST 06/21/20 Active Ozempic (2 MG/DOSE) 8 MG/3ML Subcutaneous Solution Pen-injector (Semaglutide (2 MG/DOSE))Indicatio ns:Type 2 diabetes mellitus with stage 4 chronic kidney disease, with long-term current use of insulin (HCC) Inject 2 mg under the skin once a week. 9 mL 1 06/28/20 Active Torsemide 20 MG Oral Tablet (Demadex)Indicatio ns:Chronic heart failure with preserved ejection fraction (HCC),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 Or take as directed 800 Tablet 3 4 6:26 AM EST 06/27/20 Active documented as of this encounter (statuses as of 07/13/2024) Active Problems Patient Care Coordination No te Formatting of this note migh t be different from the original. Heart Failure Self-Management and Exacerbation Plan "RED FLAG" HF Symptoms: Leg Swelling Abdominal Bloating Increased dyspnea on exertion Increased shortness of breath at rest Orthopnea Remote Patient Monitoring Vendor: [facility] [...] in the Comments) Remote Patient Monitoring Vendor: [employer] Device(s): Connected Scale Self - Management Plan [...] as of this encounter (statuses as of 07/13/2024) Resolved Problems Problem Noted Date Diagnosed Date [...] has been better controlled recently. Monitor using [email or web address] Cindy. Assessment & Plan (12/19/2022 11:13 AM [...] as of this encounter (statuses as of 07/13/2024) Immunizations Name Administration Dates Next Due COVID-19 mRNA, LNP-s, No Pre serve, 2-Dose Series (Moderna) 12/10/2020,11/12/2020 Hepatitis B, 20+ yrs 01/04/2018,08/03/2017,07/03 Pneumococcal Conjugate Vacci ne, 20-valent ([id number]) 06/09/2022 Pneumococcal Polysaccharide PPV23 (Pneumovax) 03/06/2020 RSV [...] Description 07/26/2024 8:30 AM EST [facility] [address] [place] [address] Love Stevens RN 132 [facility] [place] [address] 08/01/2024 2:20 PM EST Office Visit Family Practice [address] [place] [address] 293 [facility] [place] [phone] Igor Mcconnell, 293 [place] [address] 08/01/2024 3:00 PM EST Office Visit Family Practice 65 [facility] 293 [facility] [place] [address] College, Pharmacist [address] [place] [address] 08/08/2024 9:30 AM EST Nurse Only Ancillary [address] [place] [address] [place], Nurse [address] [place] [address] 09/27/2024 11:30 AM EDT Telemedicine Cardiology [facility] [place] [address] [facility] [place] [address] [facility], Pharmacist Cardiology [facility] [address] [place] [facility] [place] [address] 10/27/2024 1:00 PM EDT Office Visit Sleep Disorders Ctr Maximiliano [place] [address] [place] [phone] Lindsey Sheikh CRNP [address] [facility] [place] [address] 11/18/2024 2:00 PM EDT Office Visit Nephrology [address] [place] [address] ZemaLuisa leslie PA-C [address] [place] [address] Scheduled Orders Name Type Priority Associated Diagnoses Orde r Schedule HEPATIC FUNCTION PANEL Lab Routine Abnormal LFTs Expected: 08/03/2024 (Approximate), Expires: 06/21/2025 Scheduled Procedures Name Priority Associated Diagnoses Date/Ti me COLONOSCOPY FLEXIBLE PROXIMA L DIAGNOSTIC Recall History of colonic polyps Health Maintenance Due Date Last Done Comments Alpha-1 Antitrypsin 1977 Cologuard 02/09/2004 Fecal Occult Blood Test 02/09/2004 Sigmoidoscopy 02/09/2004 COVID-19 Vaccine ( season) 2024 12/10/2020, 11/12/2020 Depression Screening 08/05/2024 08/05/2023 Diabetic Foot Exam 10/19/2024 10/20/2023, 0 09/02/2022, 08/16/2021, Additional history exists GFR 12/30/2024 07/01/2024, 1203/2024, 05/26/2024, Additional history exists HbA1c 12/30/2024 07/01/2024, [...] this encounter Medical Devices Implanted Type Area Railroad Watchman Device Identifier Shelf Expiration Date Model / Serial / Lot Lens Intraoc 21.0 - [id number] - [id number] Implanted:Qty: 1 on 01/22/2017 by Cheko Mcnamara MD at OR [facility] Right: Eye [employer]OM[employer] 08/05/2021 [id number] / [id number] / [id number] Lens Intraoc 21.5 - [id number] - [id number] Implanted:Qty: 1 on 02/03/2017 by Cheko Mcnamara MD at OR [facility] Left: Eye BAUSCH & LOMB 09/02/2021 [id number] / [id number] / [id number] Hemostatic Clip Res 235cm - [id number] Implanted:Qty: 4 on 06/13/2024 by José Miguel Sifuentes MD at ENDOSCOPY [facility] [employer] : ENDOSCOPY 10/12/2026 [id number] / / [id number] Hemostatic Clip Res 235cm - [id number] Implanted:Qty: 4 on 06/13/2024 by José Miguel Sifuentes MD at ENDOSCOPY [facility] [employer] : ENDOSCOPY 03/18/2027 [id number] / / [id number] documented as of this encounter Visit Diagnoses Diagnosis Hypertensive 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 (HCC)- Primary CHAPIN[place]O on CPAP Obstructive sleep apnea (adult) (pediatric) Type 2 diabetes mellitus with stage 3b chronic kidney disease, with long-term current use of insulin ([facility]) Advanced care planning/counseling discussion- Primary Other specified counseling Hypertensive 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 (HCC) CHAPINCITO on CPAP Obstructive sleep apnea (adult) (pediatric) Mixed dyslipidemia Mixed hyperlipidemia Type 2 diabetes mellitus with hemoglobin A1c goal of less than 8.0% ([facility]) Arreola's esophagus with high grade dysplasia Arreola's [...] right eye and macular edema, unspecified whether mcc insulin use (HCC) Chronic obstructive pulmonary disease, unspecified COPD type (HCC) Sacroiliitis (HCC) Sacroiliitis, not elsewhere classified Other specified peripheral vascular diseases (HCC) Coronary artery calcification seen on CT scan Mixed dyslipidemia Mixed hyperlipidemia Dyslipidemia, goal LDL below 100 Other and [...] were consensually agreed upon. Care Teams Security Manager Relationship Specialty Start Date End Date Igor Mcconnell DO 293 [place] [address] PCP - General Internal Medicine 02/12/24 documented as of this encounter
--- OUTSIDE RECORDS SUMMARY | 2024-08-26 02:22 | External Medical Summary ---
Author Name Unknown Address Unknown Organization K01:[facility] - [address] [place] [address] Laboratory Report Ordering Provider Test Date Status DARRICKTY 07/18/2024 09:41:12 Final Observation Date Value Abnormality Reference (Units ) Status Albumin 07/18/2024 09:41:12 4.5 3.8-5.0 (g/dL) Final AST (Aspartate aminotransferase) 07/18/2024 09:41:12 76 Above high normal 10-50 (U/L) Final Alk Phos 07/18/2024 09:41:12 182 Above high normal 35-130 (U/L) Final ALT (Alanine aminotransferase) 07/18/2024 09:41:12 85 Above high normal 10-50 (U/L) Final Bilirubin, Total 07/18/2024 09:41:12 0.7 <=1.2 (mg/dL) Final Bilirubin, Direct 07/18/2024 09:41:12 0.4 Above high normal 0.0-0.3 (mg/dL) Final Protein 07/18/2024 09:41:12 7.9 6.0-8.3 (g/dL) Final Performing Location [facility] - [address] [place] [address]
--- OUTSIDE RECORDS SUMMARY | 2024-08-26 02:22 | External Medical Summary | Summary of Care ---
Author Name Unknown Organization [facility] Address [address] [facility] [place] [address] Phone [phone] Care Team Providers Care Director Of Institutional Sales Name Role Phone Igor Mcconnell DO Primary Care Provider [phone] Reason for Referral * Medication Prior Authorization - Pending Review Specialty Diagnoses / Procedures Referred By Contcoby t Referred To Contact Diagnoses Type 2 diabetes mellitus with hemoglobin A1c goal of less than 7.0% ([facility]) Snow Boone, [facility] [address] [place] [address] Phone: tel: fax: Referral ID Status Reason Start Date Expiration Date V isits Requested Visits Authorized [id number] Pending Review [id number] Reason for Visit * Reason Onset Date Comments Pre Cert/Prior Auth 07/15/2024 Tresiba flex touch 200 unit Encounter Details Date Type Department Care Team (Late st Contact Info) Description 07/15/2024 Telephone Family Medicine [address] [place] [phone] Bárbara Rios DO [address] [place] [address] [place] [address] Pre Cert/Prior Auth (Tresiba flextouch 200... Allergies [...] 38 UNITS WITH DINNER PLUS CORRECTION PER [facility] OR DIRECTED UP TO 120 UNITS PER DAY 120 mL 3 4 11:17 AM EST 03/21/20 Active DIURETIC TITRATION PLAN If no improvement on day 3, contact [facility] for possible home visit 1 Each 03/24/20 Active Evolocumab 140 MG/ML Subcutaneous Solution Auto-injector (Repatha SureClick)Indicati ons:Dyslipidemia, goal LDL below 100,Mixed dyslipidemia Inject 140 mg under the skin every 14 days. 6 mL 3 4 11:42 AM EST 03/24/20 Active Additional Information Patient taking differently:140 mg Subcutaneous [id number],Om Fridays, Reported on 07/01/2024 Unifine Pentips 31G X 8 MM (Insulin Pen Needle)Indications :Type 2 diabetes mellitus with hemoglobin A1c goal of less than 7.0% (HCC) USE TO INJECT INSULINS 5 TIMES DAILY 500 Each 3 4 7:46 AM EDT 04/18/20 Active Pcays-2-iqle Ethyl Esters 1 GM Oral Capsule (Lovaza) [...] at rest Orthopnea Remote Patient Monitoring Vendor: [facility] [...] yrs 01/04/2018,08/03/2017,07/03 Pneumococcal Conjugate Vacci ne, 20-valent ([id number]) 06/09/2022 Pneumococcal Polysaccharide PPV23 (Pneumovax) 03/06/2020 RSV [...] encounter Miscellaneous Notes * Telephone Encounter - Snow Boone, [facility] - 07/15/2024 2:40 PM EST Per 07/11/24 [facility] visit: Tresiba (U200) 116 units twice daily (decrease to 110 units BID if sugars < 70) Reason for Request: missing or invalid quantity dispensed Sent script with appropriate directions. Pending Prescriptions: Disp Refills Tresiba FlexTouch 200 UNIT/ML Subcutaneou*90 mL 2 Sig: Inject 116 Units under the skin in the morning and 116 Units in the evening. Thanks, Snow Boone [facility] Clinical Pharmacist [facility] ([facility]) [phone] Electronically signed by Snow Boone [facility] at 07/15/2024 2:42 PM EST * Telephone Encounter - Juvenal Maddox CPhT - 07/15/2024 2:38 PM EST This is a new PA request. Upon review of this prior authorization request, I verified this request is appropriate. This is prescribed by a department for which [facility] is authorized to review prior authorizations This [...] note, there is nothing currently pending in [facility] for this request. Please advise how to proceed. Thank you, Eleuterio Maddox ([facility]) Childcare Administrator III [facility] ([facility]) 07/15/2024, 2:38 PM * Telephone Encounter - Charlene Hays CPhT - 07/15/2024 12:20 PM EST Pharmacy calling to inform doctor that the patient's insurance will not pay for this medication without a completed prior authorization. Did confirm this information with the pharmacy. Pt's current insurance information is as follows: Patient name: Tony Delong ID number: [id number] BIN number: [id number] PCN number: [id number] Group number: none Subscriber name: Tony Delong Primary or Secondary Insurance:Primary Medication: tresiba flextouch 200 unit Reason for Request: missing or invalid quantity dispensed Pharmacy and phone number: [facility] [phone] Rx plan and phone number: [facility] [phone] Is this a new medication for the patient? Yes What alternative medications does the pharmacy have in stock?: none Thank you, Charlene Hays CphT Childcare Administrator III [facility]) 07/15/24 documented in this encounter Plan of Treatment Upcoming Encounters Date Type Department Care Team (Late st Contact Info) Description 07/26/2024 8:30 AM EST [facility], [facility] [address] [facility] [place] [address] Love Stevens RN 132 [place] [address] 08/01/2024 2:20 PM EST Office Visit Family Practice [address] [place] [phone] Igor Mcconnell DO [address] [place] [address] 08/01/2024 3:00 PM EST Office Visit Family Practice [address] [place] [phone] College, Pharmacist [address] [place] [address] 08/08/2024 9:30 AM EST Nurse Only Ancillary [address] [place] [address] [place], Nurse [address] [place] [address] 09/27/2024 11:30 AM EDT Telemedicine Cardiology [address] [address] [facility], Pharmacist Cardiology [place] [address] [place] [address] 10/27/2024 1:00 PM EDT Office Visit [facility] [place] [address] [place] [phone] Lindsey Sheikh CRNP [address] [place] [address] 11/18/2024 2:00 PM EDT Office Visit Nephrology [address] [place] [address] ZemaLuisa leslie PA-C [address] [place] [address] Scheduled Procedures Name Priority Associated Diagnoses Date/Ti [...] encounter Medical Devices Implanted Type Area Home Performance Consultant Device Identifier Shelf Expiration Date Model / Serial / Lot Lens Intraoc 21.0 - [id number] - [id number] Implanted:Qty: 1 on 01/22/2017 by Cheko Mcnamara MD at OR [facility] Right: Eye [employer] 08/05/2021 [id number] / [id number] / [id number] Lens Intraoc 21.5 - [id number] - [id number] Implanted:Qty: 1 on 02/03/2017 by Cheko Mcnamara MD at OR [facility] Left: Eye [employer]OM[employer] 09/02/2021 [id number] / [id number] / [id number] Hemostatic Clip Res 235cm - [id number] Implanted:Qty: 4 on 06/13/2024 by José Miguel Sifuentes MD at ENDOSCOPY [facility] [employer] : ENDOSCOPY 10/12/2026 [id number] / / [id number] Hemostatic Clip Res 235cm - [id number] Implanted:Qty: 4 on 06/13/2024 by José Miguel Sifuentes MD at ENDOSCOPY [facility] [employer] : ENDOSCOPY 03/18/2027 [id number] / / [id number] documented as of this encounter Visit Diagnoses Diagnosis Hypertensive 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 (HCC)- Primary CHAPINCITO on CPAP Obstructive sleep apnea (adult) (pediatric) Type 2 diabetes mellitus with stage 3b chronic kidney disease, with long-term current use of insulin ([facility]) Advanced care planning/counseling discussion- Primary Other [...] kidney disease (HCC)- Primary BMI 40.0-44.9, adult ([facility]) Body Mass Index 40.0-44.9, adult 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 Care Teams Director Of Institutional Sales Relationship Specialty Start Date End Date Igor Mcconnell DO [address] [facility], [place] [address] PCP - General Internal Medicine 02/12/24 documented as of this encounter
--- OUTSIDE RECORDS SUMMARY | 2024-08-26 02:23 | External Medical Summary | Summary of Care ---
Author Name Unknown Organization [facility] Address [address] [facility] [place] [address] Phone [phone] Care Team Providers Care Station Cook Name Role Phone Igor Mcconnell DO Primary Care Provider [phone] Encounter Details Date Type Department Care Team (Late st Contact Info) Description 06/28/2024 2:30 PM EST [facility], [facility] [address] [place] [address] Love Stevens, ANNE MARIE [address] [facility] [address] Allergies Active Allergy Reactions Criticality Noted Date Comments Metolazone Renal complications 11/10/2023 Note prior DTP with metolazone resulted in acute renal failure Other Allergy (See Comments) Rash Low 10/13/2022 1+ cocamidopropyl betaine Sglt2 Inhibitors Other (Please comment) High 09/04/2020 Genital infection Sulfa Antibiotics Rash 10/15/2016 documented as of this encounter (statuses as of 07/07/2024) Medications Aspirin 81 MG Tablet Take 1 [...] 38 UNITS WITH DINNER PLUS CORRECTION PER [facility] OR DIRECTED UP TO 120 UNITS [...] Additional Information Patient taking differently:140 mg Subcutaneous [id number],Om Fridays, Reported on 07/01/2024 Unifine Pentips 31G X 8 MM (Insulin Pen Needle)Indications :Type 2 diabetes mellitus with hemoglobin A1c goal of less than 7.0% (HCC) USE TO INJECT INSULINS 5 TIMES DAILY 500 Each 3 4 7:46 AM EDT 04/18/20 24 Active Iscgi-3-heeo Ethyl Esters 1 GM Oral Capsule (Lovaza) [...] 11 4 1:13 PM EST 06/21/20 Active Torsemide 20 MG Oral Tablet (Demadex)Indicatio ns:Chronic heart failure with preserved ejection fraction (HCC),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 Or take as directed 800 Tablet 3 4 6:26 AM EST 06/27/20 Active Ozempic (2 MG/DOSE) 8 MG/3ML Subcutaneous Solution Pen-injector (Semaglutide (2 MG/DOSE))Indicatio ns:Type 2 diabetes mellitus with stage 4 chronic kidney disease, with long-term current use of insulin ([facility]) Inject 2 mg under the skin once a week. 2 mL 11 4 1:20 PM EDT 02/16/20 024 Discontin ued(Refil l) documented as of this encounter (statuses as of 07/07/2024) Active Problems Patient Care Coordination No te [...] in the Comments) Remote Patient Monitoring Vendor: [employer] Device(s): Connected Scale Self - Management Plan [...] as of this encounter (statuses as of 07/07/2024) Resolved Problems Problem Noted Date Diagnosed Date [...] has been better controlled recently. Monitor using Software [employer]istry[employer] Cindy. Assessment & Plan (12/19/2022 11:13 AM [...] as of this encounter (statuses as of 07/07/2024) Immunizations Name Administration Dates Next Due COVID-19 mRNA, LNP-s, No Pre serve, 2-Dose Series (Moderna) 12/10/2020,11/12/2020 Hepatitis B, 20+ yrs 01/04/2018,08/03/2017,07/03 Pneumococcal Conjugate Vacci ne, 20-valent ([id number]) 06/09/2022 Pneumococcal Polysaccharide PPV23 (Pneumovax) 03/06/2020 RSV [...] Sign Reading Time Taken Comments Blood Pressure 124/64 06/28/2024 9:13 AM EST Pulse 76 06/28/2024 9:13 AM EST Temperature 36.8 C (98.2 F) 06/28/2024 9:13 AM ES T Respiratory Rate 18 06/28/2024 9:13 AM EST Oxygen Saturation 95% 06/28/2024 9:13 AM EST Inhaled Oxygen Concentration - - Weight - - Height - - Body Mass Index - - documented in this encounter Progress Notes * Love Stevens, ANNE MARIE - 06/28/2024 9:09 AM EST Images from the original note were not included. Current Concerns: Patient seen for follow up- CKD4, CHF, COPD, CHAPINCITO, DM2 Reports doing well Weighing daily- CH scale, BP,Spo2 monitor- see below Has PRN Metolazone- weight gain 3-5lbs per nephrology. Reports he will be taking dose today Average 14 day glucose- 264 VS wnl Lungs clear but diminished Sob with exertion No LE edema noted Voiding without difficulty Bowels wnl Appetite good- low na encouraged Taking fluids well. Synopsis SmartLink Most Recent Value Past ~8 weeks 06/28/2024 06/27/2024 06/26/2024 Remote Monitoring Intermittent Vitals Systolic BP 120 mm/Hg CH:VITAL_READING_TYPE=SPOT CH:PERIPHERAL_BRAND=IHEALTH 06/28/2024 120 mm/Hg CH:VITAL_READING_TYPE=SPOT CH:PERIPHERAL_BRAND=IHEALTH 131 mm/Hg CH:VITAL_READING_TYPE=SPOT CH:PERIPHERAL_BRAND=IHEALTH 145 mm/Hg CH:VITAL_READING_TYPE=SPOT CH:PERIPHERAL_BRAND=IHEALTH Diastolic BP 67 mm/Hg CH:VITAL_READING_TYPE=SPOT CH:PERIPHERAL_BRAND=IHEALTH 06/28/2024 67 mm/Hg CH:VITAL_READING_TYPE=SPOT CH:PERIPHERAL_BRAND=IHEALTH 69 mm/Hg CH:VITAL_READING_TYPE=SPOT CH:PERIPHERAL_BRAND=IHEALTH 72 mm/Hg CH:VITAL_READING_TYPE=SPOT CH:PERIPHERAL_BRAND=IHEALTH Pulse 74 bpm CH:VITAL_READING_TYPE=SPOT CH:PERIPHERAL_BRAND=IHEALTH 06/28/2024 74 bpm CH:VITAL_READING_TYPE=SPOT CH:PERIPHERAL_BRAND=IHEALTH 71 bpm CH:VITAL_READING_TYPE=SPOT CH:PERIPHERAL_BRAND=IHEALTH 68 bpm CH:VITAL_READING_TYPE=SPOT CH:PERIPHERAL_BRAND=NONIN Oxygen Sat 95 % CH:VITAL_READING_TYPE=SPOT CH:PERIPHERAL_BRAND=NONIN 06/28/2024 95 % CH:VITAL_READING_TYPE=SPOT CH:PERIPHERAL_BRAND=NONIN 93 % CH:VITAL_READING_TYPE=SPOT CH:PERIPHERAL_BRAND=NONIN 97 % CH:VITAL_READING_TYPE=SPOT CH:PERIPHERAL_BRAND=NONIN Weight 125.9 kg (277 lb 10.2 oz) CH:VITAL_READING_TYPE=SPOT CH:PERIPHERAL_BRAND=WITHINGS 06/28/2024 125.9 kg (277 lb 10.2 oz) CH:VITAL_READING_TYPE=SPOT CH:PERIPHERAL_BRAND=WITHINGS 124.6 kg (274 lb 9.8 oz) CH:VITAL_READING_TYPE=SPOT CH:PERIPHERAL_BRAND=WITHINGS 124.9 kg (275 lb 3.9 oz) CH:VITAL_READING_TYPE=SPOT CH:PERIPHERAL_BRAND=WITHINGS More abnormal values are hidden. Newest values shown. Go to activity for more data. More values are hidden. Newest values shown. Go to activity for more data. Physical Exam: Physical Exam Constitutional: Appearance: Normal appearance. Cardiovascular: Rate and Rhythm: Normal rate and regular rhythm. Pulses: Normal pulses. Pulmonary: Effort: Pulmonary effort is normal. Breath sounds: Normal breath sounds. Abdominal: General: Bowel sounds are normal. Palpations: Abdomen is soft. Skin: General: Skin is warm and dry. [...] Goal Progress: GS - Patient/caregiver will verbalize importance of managing blood pressure to reduce progression of heart failure. (Progressing) Start: 03/16/24 Expected End: 07/23/24 GS - Patient/caregiver will verbalize importance of regular physical activity in the management of heart failure. (Progressing) Start: 03/16/24 Expected End: 07/23/24 GS - Patient/caregiver will verbalize importance of sodium restriction in the management of heart failure. (Progressing) Start: 03/16/24 Expected End: 07/23/24 GS - Patient/caregiver will verbalize understanding of diuretic titration protocol (Progressing) Start: 03/16/24 Expected End: 07/23/24 GS - Patient/caregiver will notify provider with weight gain with heart failure as per established limits set by provider. (Progressing) Start: 03/16/24 Expected End: 10/26/24 GS - Patient/caregiver will verbalize understanding of complications related to heart failure. (Progressing) Start: 03/16/24 Expected End: 10/26/24 GS - Patient/caregiver will verbalize non-pharmacological treatments for heart failure. (Progressing) Start: 03/16/24 Expected End: 10/26/24 Orders Placed: No orders of the defined types were placed in this encounter. Medications Given: Care Gaps: Care Gaps Care gaps closed this contact: Education (06/28/24 9624) Type of education: Clinical/disease (06/28/24 8595) documented in this encounter Plan of Treatment Upcoming Encounters Date Type Department Care Team (Late st Contact Info) Description 07/11/2024 11:20 AM EST Telemedicine Family Practice [address] [facility] 293 [facility] [place] [address] College, Pharmacist [address] [place] [address] 07/26/2024 8:30 AM EST [facility], [facility] 132 [facility] [place] [address] Love Stevens RN 132 [facility] [place] [address] 08/01/2024 2:20 PM EST Office Visit Family Practice [address] [place] [address] 293 [facility] [place] [address] Igor cMconnell, 293 [place] [address] 08/08/2024 9:30 AM EST Nurse Only Ancillary [address] [place] [address] [place], Nurse [address] [place] [address] 09/27/2024 11:30 AM EDT Telemedicine Cardiology [facility], [place] [address] [place] [address] [facility], Pharmacist Cardiology [place] [address] [place] [address] 10/27/2024 1:00 PM EDT Office Visit [facility] Disorders Ctr [facility] [address] [facility] [place] [address] Lindsey Sheikh CRNP [address] [facility] [place] [address] 11/18/2024 2:00 PM EDT Office Visit Nephrology [address] [place] [address] ZeLuisa reyes PA-C [address] [place] [address] Scheduled Procedures Name Priority Associated Diagnoses Date/Ti [...] this encounter Medical Devices Implanted Type Area Automotive Title Clerk Device Identifier Shelf Expiration Date Model / Serial / Lot Lens Intraoc 21.0 - [id number] - [id number] Implanted:Qty: 1 on 01/22/2017 by Cheko Mcnamara MD at OR [facility] Right: Eye [employer] 08/05/2021 [id number] / [id number] / [id number] Lens Intraoc 21.5 - [id number] - [id number] Implanted:Qty: 1 on 02/03/2017 by Cheko Mcnamara MD at OR [facility] Left: Eye [employer]CH [employer]OMB 09/02/2021 [id number] / [id number] / [id number] Hemostatic Clip Res 235cm - [id number] Implanted:Qty: 4 on 06/13/2024 by José Miguel Sifuentes MD at ENDOSCOPY [facility] : ENDOSCOPY 10/12/2026 [id number] / / [id number] Hemostatic Clip Res 235cm - [id number] Implanted:Qty: 4 on 06/13/2024 by José Miguel Sifuentes MD at ENDOSCOPY [facility] : ENDOSCOPY 03/18/2027 [id number] / / [id number] documented as of this encounter Advance Directives [...] and were consensually agreed upon. Care Teams Station Cook Relationship Specialty Start Date End Date Igor Mcconnell DO [address] [place] [address] PCP - General Internal Medicine 02/12/24 documented as of this encounter
--- OUTSIDE RECORDS SUMMARY | 2024-08-26 02:23 | External Medical Summary ---
Author Name Unknown Address Unknown Organization K01[place] [place] [address] [place] [address] Laboratory Report Ordering Provider Test Date Status ANGE GARCÍA 07/01/2024 14:59:13 Final Observation Date Value Abnormality Reference (Units ) Status TSH 07/01/2024 14:59:13 1.72 0.27-4.20 (uIU/mL) Final Performing Location [facility] [address] [place] [address]
--- OUTSIDE RECORDS SUMMARY | 2024-08-26 02:23 | External Medical Summary | Summary of Care ---
Author Name Unknown Organization [facility] Address [address] [address] Phone [phone] Care Team Providers Care Fisher Diving Name Role Phone Igor Mcconnell DO Primary Care Provider [phone] Reason for Visit * Reason Comments Dosage Adjustment Via Phone (anticoag Cl inic) Diabetes Follow-Up Encounter Details Date Type Department Care Team (Late st Contact Info) Description 07/04/2024 11:30 AM EST Telemedicine Family Practice [address] [address] [place], Pharmacist [address] [address] Type 2 diabetes mellitus with stage 4 chronic kidney disease, with long-term current use of insulin ([facility])*; Medication management Allergies Active Allergy Reactions Criticality Noted Date Comments Metolazone Renal complications 11/10/2023 Note prior DTP with metolazone resulted in acute renal failure Other Allergy (See Comments) Rash Low 10/13/2022 1+ cocamidopropyl betaine Sglt2 Inhibitors Other (Please comment) High 09/04/2020 Genital infection Sulfa Antibiotics Rash 10/15/2016 documented as of this encounter (statuses as of 07/04/2024) Medications Aspirin 81 MG Tablet Take 1 [...] 38 UNITS WITH DINNER PLUS CORRECTION PER [facility] OR DIRECTED UP TO 120 UNITS PER DAY 120 mL 3 4 11:17 AM EST 03/21/20 Active DIURETIC TITRATION PLAN If no improvement on day 3, contact [facility] for possible home visit 1 Each 03/24/20 24 Active Evolocumab 140 MG/ML Subcutaneous Solution Auto-injector (Repatha SureClick)Indicati ons:Dyslipidemia, goal LDL below 100,Mixed dyslipidemia Inject 140 mg under the skin every 14 days. 6 mL 3 4 11:42 AM EST 03/24/20 Active Additional Information Patient taking differently:140 mg Subcutaneous [id number],Om Fridays, Reported on 07/01/2024 Unifine Pentips 31G X 8 MM (Insulin Pen Needle)Indications :Type 2 diabetes mellitus with hemoglobin A1c goal of less than 7.0% (HCC) USE TO INJECT INSULINS 5 TIMES DAILY 500 Each 3 4 7:46 AM EDT 04/18/20 24 Active Jpbwe-0-kfqg Ethyl Esters 1 GM Oral Capsule (Lovaza) Take 2 Capsules by mouth in the morning and 2 Capsules before bedtime. 360 Capsule 1 4 7:46 AM EDT 04/18/20 24 Active metOLazone 2.5 MG Oral [...] Or take as directed 800 Tablet 3 06/27/20 Active documented as of this encounter (statuses as of 07/04/2024) Active Problems Patient Care Coordination No te Formatting of this note migh t be different from the original. Heart Failure Self-Management and Exacerbation Plan "RED FLAG" HF Symptoms: Leg Swelling Abdominal Bloating Increased dyspnea on exertion Increased shortness of breath at rest Orthopnea Remote Patient Monitoring Vendor: [facility] [...] in the Comments) Remote Patient Monitoring Vendor: [employer] Device(s): Connected Scale Self - Management Plan [...] as of this encounter (statuses as of 07/04/2024) Resolved Problems Problem Noted Date Diagnosed Date [...] has been better controlled recently. Monitor using [employer] Cindy. Assessment & Plan (12/19/2022 11:13 AM [...] as of this encounter (statuses as of 07/04/2024) Immunizations Name Administration Dates Next Due COVID-19 mRNA, LNP-s, No Pre serve, 2-Dose Series (Moderna) 12/10/2020,11/12/2020 Hepatitis B, 20+ yrs 01/04/2018,08/03/2017,07/03 Pneumococcal Conjugate Vacci ne, 20-valent ([id number]) 06/09/2022 Pneumococcal Polysaccharide PPV23 (Pneumovax) 03/06/2020 RSV [...] as of this encounter Progress Notes * Delia Angulo, [facility] - 07/04/2024 11:24 AM EST Images from the original note were not included. Diabetes telephone follow - up 07/04/2024 Patient Phone Numbers - Reason for contacting patient: Following up with patient on recent blood sugars. He reports he's been trying to eat better, but yesterday had takeout chicken fingers and fries. Reports only eating a banana in the mornings usually. - Current diabetic medications: Ozempic 2mg weekly (cordell nordisk) Increase Tresiba (U200) 116 units twice daily Novolog with each meal - do not administer two novolog doses within 3 hours of one another. ([id number] units per meal) Schedule yesterday (07/03) - got up and gave 32 units novolog and at a banana - went to judaism - lunch: take out from [employer] - chicken tenders and gibraltarian fries - snack: bowl of fruit - beverages: diet pepsi Schedule Monday 07/02: - breakfast: banana - lunch: doesn't remember - dinner: scalloped potatoes, chicken breast - Glucose review/ SMBG: (Champ) Therapy Management Assessment/Plan: 1) Diabetes: Discussed with patient need to give Novolog ahead of meals to prevent highs. Also discussed avoiding high fat/high carb meals when possible. Patient advised to increase protein intake and to have protein with every meal. Ozempic 2mg weekly (cordell nordisk) Tresiba (U200) 116 units twice daily (decrease to 110 units BID if sugars < 70) Novolog 40-70 units with each meal - do not administer two novolog doses within 3 hours of one another. Follow up in 1 week or sooner as needed. Delia Diza RP, Pharm D Clinical Pharmacist Medication Therapy [facility] 07/04/2024, 11:24 AM documented in this encounter Plan of Treatment Upcoming Encounters Date Type Department Care Team (Late st Contact Info) Description 07/11/2024 11:20 AM EST Telemedicine Family Practice [address] [place] [phone] College, Pharmacist [address] [place] [address] 07/26/2024 8:30 AM EST Home Visit [facility] [address] [facility] [place] [address] Love Stevens RN 132 [facility] [place] [address] 08/01/2024 2:20 PM EST Office Visit Family [address] [address] Igor Mcconnell DO [address] [place] [address] 08/08/2024 9:30 AM EST Nurse Only Ancillary [address] [place] [address] [place], Nurse [address] [place] [address] 09/27/2024 11:30 AM EDT Telemedicine Cardiology [facility] [place] [address] [place] [facility] [address] [facility], Pharmacist [facility] [address] [facility] [address] 10/27/2024 1:00 PM EDT [facility] [address] [place] [phone] Lindsey Sheikh CRNP [address] [place] [address] 11/18/2024 2:00 PM EDT Office Visit Nephrology [address] [place] [address] Zemaitis, Luisa Guzman PA-C [address] [place] [address] Scheduled Procedures Name Priority Associated Diagnoses Date/Ti [...] 10/21/2023, Additional history exists PTH 05/13/2025 05/13/2024, 083 07/2021, 09/12/2020 Phosphate 05/13/2025 05/13/2024, 10/05, 10/23/2023, [...] encounter Medical Devices Implanted Type Area Machine Feeder Raw Stock Device Identifier Shelf Expiration Date Model / Serial / Lot Lens Intraoc 21.0 - [id number] - [id number] Implanted:Qty: 1 on 01/22/2017 by Cheko Mcnamara MD at OR [facility] Right: Eye [employer]USCH [employer] LOMB 08/05/2021 [id number] / [id number] / [id number] Lens Intraoc 21.5 - [id number] - [id number] Implanted:Qty: 1 on 02/03/2017 by Cheko Mcnamara MD at OR [facility] Left: Eye BAUSCH [employer] LOMB 09/02/2021 [id number] / [id number] / [id number] Hemostatic Clip Res 235cm - [id number] Implanted:Qty: 4 on 06/13/2024 by José Miguel Sifuentes MD at [facility]COPY [facility] : END[facility]COPY 10/12/2026 [id number] / / [id number] Hemostatic Clip Res 235cm - [id number] Implanted:Qty: 4 on 06/13/2024 by José Miguel Sifuentes MD at END[facility]COPY [facility] : END[facility]COPY 03/18/2027 [id number] / / [id number] documented as of this encounter Visit Diagnoses Diagnosis Hypertensive 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 (HCC)- Primary CHAPINCITO on CPAP Obstructive sleep apnea (adult) (pediatric) Type 2 diabetes mellitus with stage 3b chronic kidney disease, with long-term current use of insulin ([facility]) Advanced care planning/counseling discussion- Primary Other [...] right eye and macular edema, unspecified whether buttermaker continuous churn insulin use (HCC) Chronic obstructive pulmonary disease, unspecified COPD type (HCC) Sacroiliitis (HCC) Sacroiliitis, not elsewhere classified Other specified peripheral vascular diseases (HCC) Coronary artery calcification seen on CT scan Mixed dyslipidemia Mixed hyperlipidemia Type 2 diabetes mellitus with stage 4 chronic kidney disease, with long-term current use of insulin (HCC)- Primary Medication management Encounter for long-term (current) use of other medications documented in this encounter Advance Directives * [...] and were consensually agreed upon. Care Teams Fisher Diving Relationship Specialty Start Date End Date Igor cMconnell DO [address] [facility] [place] [address] PCP - General Internal Medicine 02/12/24 documented as of this encounter
--- OUTSIDE RECORDS SUMMARY | 2024-08-26 02:23 | External Medical Summary | Summary of Care ---
Author Name Unknown Organization [facility] Address [address] [place] [address] Phone [phone] Care Team Providers Care Plastic Parts Fabricator Trimmer Name Role Phone Igor Mcconnell DO Primary Care Provider [phone] Reason for Visit * Reason Onset Date Comments Test Results 07/08/202407/08 Encounter Details Date Type Department Care Team (Late st Contact Info) Description 07/08/2024 Telephone Family Practice [address] [place] [address] [place] [address] Igor Mcconnell DO [address] [place] [address] Test Results (07/08) Allergies Active Allergy Reactions Criticality Noted Date Comments Metolazone Renal complications 11/10/2023 Note prior DTP with metolazone resulted in acute renal failure Other Allergy (See Comments) Rash Low 10/13/2022 1+ cocamidopropyl betaine Sglt2 Inhibitors Other (Please comment) High 09/04/2020 Genital infection Sulfa Antibiotics Rash 10/15/2016 documented as of this encounter (statuses as of 07/08/2024) Medications Aspirin 81 MG Tablet Take 1 [...] If no improvement on day 3, contact [facility] for possible home visit 1 Each 03/24/20 24 Active Evolocumab 140 MG/ML Subcutaneous Solution Auto-injector (Repatha SureClick)Indicati ons:Dyslipidemia, goal LDL below 100,Mixed dyslipidemia Inject 140 mg under the skin every 14 days. 6 mL 3 4 11:42 AM EST 03/24/20 Active Additional Information Patient taking differently:140 mg Subcutaneous T5PKCTC,Om Fridays, Reported on 07/01/2024 Unifine Pentips 31G X 8 MM (Insulin Pen Needle)Indications :Type 2 diabetes mellitus with hemoglobin A1c goal of less than 7.0% (HCC) USE TO INJECT INSULINS 5 TIMES DAILY 500 Each 3 4 7:46 AM EDT 04/18/20 24 Active Shdti-0-fpbs Ethyl Esters 1 GM Oral Capsule (Lovaza) [...] once a week. 9 mL 1 06/28/20 24 Active Torsemide 20 MG Oral [...] as of this encounter (statuses as of 07/08/2024) Active Problems Patient Care Coordination No te Formatting of this note migh t be different from the original. Heart Failure Self-Management and Exacerbation Plan "RED FLAG" HF Symptoms: Leg Swelling Abdominal Bloating Increased dyspnea on exertion Increased shortness of breath at rest Orthopnea Remote Patient Monitoring Vendor: [facility] Device(s): Connected Scale Self [...] in the Comments) Remote Patient Monitoring Vendor: [employer] Device(s): Connected Scale Self - Management Plan Double dose of Torsemide for 3 days Exacerbation Plan BMP Chest X-Ray Additional Comments: Recommended using double torsemide for 3 days in a row, rather than 1 day like he has been doing Continue using [employer] scale Low sodium diet Assessment & Plan [...] as of this encounter (statuses as of 07/08/2024) Resolved Problems Problem Noted Date Diagnosed Date [...] has been better controlled recently. Monitor using [employer] Cindy. Assessment & Plan (12/19/2022 11:13 AM [...] as of this encounter (statuses as of 07/08/2024) Immunizations Name Administration Dates Next Due COVID-19 mRNA, LNP-s, No Pre serve, 2-Dose Series (Moderna) 12/10/2020,11/12/2020 Hepatitis B, 20+ yrs 01/04/2018,08/03/2017,07/03 Pneumococcal Conjugate Vacci ne, 20-valent ([id number]) 06/09/2022 Pneumococcal Polysaccharide PPV23 (Pneumovax) 03/06/2020 RSV [...] encounter Miscellaneous Notes * Telephone Encounter - Zulema Frazier LPN - 07/08/2024 1:15 PM EST Patient is aware and will comply. Thank you * Telephone Encounter - Haleigh Ozuna OSA - 07/08/2024 10:46 AM EST Patent called back and said you may call him now he can answer. Thanks * Telephone Encounter - Zulema Frazier LPN - 07/08/2024 10:32 AM EST Called, left message for patient to return call. Thank you * Telephone Encounter - Zulema Frazier LPN - 07/08/2024 10:27 AM EST ----- Message from Igor Mcconnell DO sent at 07/08/2024 10:02 AM EST ----- Cirrhosis present which is a chronic finding. Gallstones are present without cholecystitis , and no pancreatic disease on US. Continue current medications. documented in this encounter Plan of Treatment Upcoming Encounters Date Type Department Care Team (Late st Contact Info) Description 07/11/2024 11:20 AM EST Telemedicine Family Practice 65 [facility] 293 [place] [address] College, Pharmacist [address] [place] [address] 07/26/2024 8:30 AM EST [facility] Visit [facility] 132 [facility] [place] [address] Love Stevens, ANNE MARIE 132 [facility] [place] [address] 08/01/2024 2:20 PM EST Office Visit Family Practice [address] [place] [address] 293 [place] [address] Igor Mcconnell, 293 [facility] [place] [address] 08/08/2024 9:30 AM EST Nurse Only Ancillary [address] [place] [address] [place], Nurse [address] [place] [address] 09/27/2024 11:30 AM EDT Telemedicine Cardiology [facility] [place] [address] [place] [address] [facility], Pharmacist Cardiology [facility] [address] [place] [address] 10/27/2024 1:00 PM EDT Office Visit Sleep Disorders Ctr [facility] 132 [facility] [place] [phone] Lindsey Sheikh CRNP 132 [facility] [place] [address] 11/18/2024 2:00 PM EDT Office Visit Nephrology [address] [place] [address] ZemaLuisa leslie PA-C [address] [place] [address] Scheduled Procedures Name Priority Associated Diagnoses Date/Ti [...] 05/26/2024, Additional history exists HbA1c 12/30/2024 07/01/2024, 0 03/2024, 10/21/2023, Additional history exists PTH 05/13/2025 [...] this encounter Medical Devices Implanted Type Area Poultry Field Service Technician Device Identifier Shelf Expiration Date Model / Serial / Lot Lens Intraoc 21.0 - [id number] - [id number] Implanted:Qty: 1 on 01/22/2017 by Cheko Mcnamara MD at OR [facility] Right: Eye BAUSCH [employer] LOMB 08/05/2021 [id number] / [id number] / [id number] Lens Intraoc 21.5 - [id number] - [id number] Implanted:Qty: 1 on 02/03/2017 by Cheko Mcnamara MD at OR [facility] Left: Eye BAUSCH & LOMB 09/02/2021 [id number] / [id number] / [id number] Hemostatic Clip Res 235cm - [id number] Implanted:Qty: 4 on 06/13/2024 by José Miguel Sifuentes MD at ENDOSCOPY [facility] : ENDOSCOPY 10/12/2026 [id number] / / [id number] Hemostatic Clip Res 235cm - [id number] Implanted:Qty: 4 on 06/13/2024 by José Miguel Sifuentes MD at ENDOSCOPY [facility] : ENDOSCOPY 03/18/2027 [id number] / / [id number] documented as of this encounter Advance Directives [...] were consensually agreed upon. Care Teams Plastic Parts Fabricator Trimmer Relationship Specialty Start Date End Date Igor Mcconnell DO [address] [facility] [place] [address] PCP - General Internal Medicine 02/12/24 documented as of this encounter
--- OUTSIDE RECORDS SUMMARY | 2024-08-26 02:23 | External Medical Summary ---
Author Name Unknown Address Unknown Organization K01:[place] [facility] [place] [address] [place] [address] Laboratory Report Ordering Provider Test Date Status ANGE GARCÍA 07/01/2024 14:59:13 Final Observation Date Value Abnormality Reference (Units ) Status HbA1C 07/01/2024 14:59:13 9.2 Above high normal 4. 0-5.6 (%) Final The use of HbA1c to monitor glycemic status is based on normal hemoglobin and HbA composition. This test should not be used in patients with abnormal hemoglobin that affects the half life of the red blood cell or the in vivo glycation rates. Glucose, estimated average 07/01/2024 14:59:13 217 Above high normal <126 (mg/dL) Greg sanchez Performing Location [facility] [place] [address] [place] [address]
--- OUTSIDE RECORDS SUMMARY | 2024-08-26 02:23 | External Medical Summary ---
Author Name Unknown Address Unknown Organization K01:LABORATORY [facility] [place] - [address] [facility] [address] [place] [address] Laboratory Report Ordering Provider Test Date Status ANGE GARCÍA 07/01/2024 14:59:13 Final Observation Date Value Abnormality Reference (Units ) Status SYNC LEUKOCYTES IN BLOOD BY AUTOMATED COUNT 07/01/2024 14:59:13 6.62 4.00-10.80 (K/uL) Final Segs 07/01/2024 14:59:13 64.8 40.0-75.0 (%) Final Lymphs % 07/01/2024 14:59:13 19.6 18.0-42.0 (%) Final Monos 07/01/2024 14:59:13 7.7 1.0-11.0 (%) Final Eosinophils 07/01/2024 14:59:13 5.9 0.0-6.0 (%) Final Basos 07/01/2024 14:59:13 1.8 0.0-2.0 (%) Final Immature Granulocyte, Percent 07/01/2024 14:59:13 0.2 0.0-2.0 (%) Final Absolute Segs 07/01/2024 14:59:13 4.29 1.80-7.70 (K/uL) Final Lymphs, absolute 07/01/2024 14:59:13 1.30 1.00-4.80 (K/ul) Final Monos, Abs 07/01/2024 14:59:13 0.51 0.00-1.10 (K/uL) Final Eos, Abs 07/01/2024 14:59:13 0.39 0.00-0.70 (K/uL) Final Basos, Abs 07/01/2024 14:59:13 0.12 0.00-0.20 (K/uL) Final Immature Granulocytes, Number 07/01/2024 14:59:13 0.01 0.00-0.20 (K/uL) Final Performing Location LABORATORY [facility] - [address] [facility] [address]
--- OUTSIDE RECORDS SUMMARY | 2024-08-26 02:23 | External Medical Summary | Summary of Care ---
Author Name Unknown Organization [facility] Address [address] [facility] [address] Phone [phone] Care Team Providers Care Military Science Instructor Name Role Phone Igor Mcconnell DO Primary Care Provider [phone] Reason for Visit * Reason Comments Dosage Adjustment Via Phone (anticoag Cl inic) Diabetes Follow-Up Encounter Details Date Type Department Care Team (Late st Contact Info) Description 07/11/2024 11:20 AM EST Telemedicine Family Practice [address] [phone] [place], Pharmacist [address] [address] Type 2 diabetes mellitus with hemoglobin A1c goal of less than 8.0% ([facility])* Allergies Active Allergy Reactions Criticality Noted Date Comments Metolazone Renal complications 11/10/2023 Note prior DTP with metolazone resulted in acute renal failure Other Allergy (See Comments) Rash Low 10/13/2022 1+ cocamidopropyl betaine Sglt2 Inhibitors Other (Please comment) High 09/04/2020 Genital infection Sulfa Antibiotics Rash 10/15/2016 documented as of this encounter (statuses as of 07/11/2024) Medications Aspirin 81 MG Tablet Take 1 [...] 38 UNITS WITH DINNER PLUS CORRECTION PER [facility] OR DIRECTED UP TO 120 UNITS PER DAY 120 mL 3 4 11:17 AM EST 03/21/20 Active DIURETIC TITRATION PLAN If no improvement on day 3, contact [facility] for possible home visit 1 Each 03/24/20 24 Active Evolocumab 140 MG/ML Subcutaneous Solution Auto-injector (Repatha SureClick)Indicati ons:Dyslipidemia, goal LDL below 100,Mixed dyslipidemia Inject 140 mg under the skin every 14 days. 6 mL 3 4 11:42 AM EST 03/24/20 Active Additional Information Patient taking differently:140 mg Subcutaneous [id number],Om Fridays, Reported on 07/01/2024 Unifine Pentips 31G X 8 MM (Insulin Pen Needle)Indications :Type 2 diabetes mellitus with hemoglobin A1c goal of less than 7.0% (HCC) USE TO INJECT INSULINS 5 TIMES DAILY 500 Each 3 4 7:46 AM EDT 04/18/20 24 Active Jtwht-9-gzek Ethyl Esters 1 GM Oral Capsule (Lovaza) [...] 4 6:26 AM EST 06/27/20 24 Active documented as of this encounter (statuses as of 07/11/2024) Active Problems Patient Care Coordination No te Formatting of this note migh t be different from the original. Heart Failure Self-Management and Exacerbation Plan "RED FLAG" HF Symptoms: Leg Swelling Abdominal Bloating Increased dyspnea on exertion Increased shortness of breath at rest Orthopnea Remote Patient Monitoring Vendor: [facility] Device(s): Connected Scale Self - Management Plan [...] the Comments) Remote Patient Monitoring Vendor: [facility] Device(s): Connected Scale Self - Management Plan [...] as of this encounter (statuses as of 07/11/2024) Resolved Problems Problem Noted Date Diagnosed Date [...] has been better controlled recently. Monitor using [employer] Cindy. Assessment & Plan (12/19/2022 11:13 AM [...] as of this encounter (statuses as of 07/11/2024) Immunizations Name Administration Dates Next Due COVID-19 mRNA, LNP-s, No Pre serve, 2-Dose Series (Moderna) 12/10/2020,11/12/2020 Hepatitis B, 20+ yrs 01/04/2018,08/03/2017,07/03 Pneumococcal Conjugate Vacci ne, 20-valent ([id number]) 06/09/2022 Pneumococcal Polysaccharide PPV23 (Pneumovax) 03/06/2020 RSV [...] as of this encounter Progress Notes * Meghana Colunga, Delia Linton, [facility] - 07/11/2024 11:48 AM EST Images from the original note were not included. Diabetes telephone follow - up 07/11/2024 Patient Phone Numbers - Reason for contacting patient: following up with patient on recent hypo- and hyper-glycemia. Per patient his sensor stopped Thursday and Ranjan didn't have an order sent so they sent today and will be a few days until he gets new ones. He does have a glucometer at home and reports BGs have beenthe same. - Current diabetic medications: Ozempic 2mg weekly (cordell nordisk) Tresiba (U200) 116 units twice daily (decrease to 110 units BID if sugars < 70) Novolog 40-70 units with each meal - do not administer two novolog doses within 3 hours of one another. Upon further questioning, patient giving first dose of novolog when he gets up, often 2-3 hours prior to first meal. - Glucose review/ SMBG: Therapy Management Assessment/Plan: 1) Diabetes: Patient's blood sugars have been going into goal overnight, but elevating significantly throughout the day. I suspect that his novolog is wearing off ahead of lunch meal and then he's having to play catch up the rest of the day. Advised patient to adjust insulin as follows below and tokeep track of all his food for at least one 24 hour period. Ozempic 2mg weekly Tresiba (U200) 116 units twice daily (decrease to 110 units BID if sugars < 70) Novolog: do not administer two novolog doses within 3 hours of one another. First thing in am with Banana/shake - 20 units Lunch - 50 units Dinner 70-80 units Follow up in 3 weeks due to lack of sensor currently. Advised patient to call once he gets a sensorif he needs sooner follow up. Delia Diaz [facility], Pharm D Clinical Pharmacist Medication Therapy Management Clinic 07/11/2024, 11:48 AM documented in this encounter Plan of Treatment Upcoming Encounters Date Type Department Care Team (Late st Contact Info) Description 07/26/2024 8:30 AM EST Home Visit [facility] [address] [place] [address] Love Stevens RN 132 [facility] [place] [address] 08/01/2024 2:20 PM EST Office Visit Family Practice [address] [place] [address], [place] [phone] Igor Mcconnell DO 293 [place] [address] 08/01/2024 3:00 PM EST Office Visit Family Practice [address] [place] [address] 293 [facility] [place] [phone] College, Pharmacist [address] [place] [address], [place] [address] 08/08/2024 9:30 AM EST Nurse Only Ancillary [address] [place] [address] [place], Nurse [address] [place] [address] 09/27/2024 11:30 AM EDT Telemedicine Cardiology [facility] [place] [address] [place] [facility] [place] [address] [place] [address], Pharmacist Cardiology [facility] [address] [place] [address] 10/27/2024 1:00 PM EDT Office Visit [facility] [place] [address] [place] [phone] Lindsey Sheikh CRNP [address] [place] [address] 11/18/2024 2:00 PM EDT Office Visit Nephrology [address] [place] [address] Zemaitis, Luisa Guzman PA-C [address] [place] [address] Scheduled Procedures Name Priority Associated Diagnoses Date/Ti [...] 05/13/2024, 083 07/2021, 09/12/2020 Phosphate 05/13/2025 05/13/2024, 04/08/2023, 10/23/2023, Additional history exists Albumin/Creatinine Ratio 05/18/2025 [...] this encounter Medical Devices Implanted Type Area Editor Greeting Card Device Identifier Shelf Expiration Date Model / Serial / Lot Lens Intraoc 21.0 - [id number] - [id number] Implanted:Qty: 1 on 01/22/2017 by Cheko Mcnamara MD at [facility] Right: Eye [employer] 08/05/2021 [id number] / [id number] / [id number] Lens Intraoc 21.5 - [id number] - [id number] Implanted:Qty: 1 on 02/03/2017 by Cheko Mcnamara MD at [facility] Left: Eye [employer] 09/02/2021 [id number] / [id number] / [id number] Hemostatic Clip Res 235cm - [id number] Implanted:Qty: 4 on 06/13/2024 by José Miguel Sifuentes MD at [facility] 10/12/2026 [id number] / / [id number] Hemostatic Clip Res 235cm - [id number] Implanted:Qty: 4 on 06/13/2024 by José Miguel Sifuentes MD at [facility] [employer] : ENDOSCOPY 03/18/2027 [id number] / / [id number] documented as of this encounter Visit Diagnoses Diagnosis Hypertensive 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 (HCC)- Primary [place]APIN[place]O on CPAP Obstructive sleep apnea (adult) (pediatric) Type 2 diabetes mellitus with stage 3b chronic kidney disease, with long-term current use of insulin ([facility]) Advanced care planning/counseling discussion- Primary [...] right eye and macular edema, unspecified whether nursing home insulin use (HCC) Chronic obstructive pulmonary disease, unspecified COPD type (HCC) Sacroiliitis (HCC) Sacroiliitis, not elsewhere classified Other specified peripheral vascular diseases (HCC) Coronary artery calcification seen on CT scan Mixed dyslipidemia Mixed hyperlipidemia Type 2 diabetes mellitus with hemoglobin A1c goal of less than 8.0% (HCC)- Primary documented in this encounter Advance Directives * [...] and were consensually agreed upon. Care Teams Military Science Instructor Relationship Specialty Start Date End Date Igor Mcconnell DO 293 [place] [address] PCP - General Internal Medicine 02/12/24 documented as of this encounter
--- OUTSIDE RECORDS SUMMARY | 2024-08-26 02:23 | External Medical Summary | Summary of Care ---
Author Name Unknown Organization [facility] Address [address] [facility] [place] [address] Phone [phone] Care Team Providers Care Exterminator Helper Termite Name Role Phone EnedinaIgor DO Primary Care Provider [phone] Encounter Details Date Type Department Care Team (Late st Contact Info) Description 07/07/2024 Population Health External Data Unspecified Department Allergies Active Allergy Reactions Criticality Noted Date Comments Metolazone Renal complications 11/10/2023 Note prior DTP with metolazone resulted in acute renal failure Other Allergy (See Comments) Rash Low 10/13/2022 1+ cocamidopropyl betaine Sglt2 Inhibitors Other (Please comment) High 09/04/2020 Genital infection Sulfa Antibiotics Rash 10/15/2016 documented as of this encounter (statuses as of 07/12/2024) Medications Aspirin 81 MG Tablet Take 1 [...] hemoglobin A1c goal of less than 7.0% ([facility]) Use as directed every 14 [...] If no improvement on day 3, contact [facility] for possible home visit 1 Each 03/24/20 24 Active Evolocumab 140 MG/ML Subcutaneous Solution Auto-injector (Repatha SureClick)Indicati ons:Dyslipidemia, goal LDL below 100,Mixed dyslipidemia Inject 140 mg under the skin every 14 days. 6 mL 3 4 11:42 AM EST 03/24/20 24 Active Additional Information Patient taking differently:140 mg Subcutaneous [id number],Om Fridays, Reported on 07/01/2024 Unifine Pentips 31G X 8 MM (Insulin Pen Needle)Indications :Type 2 diabetes mellitus with hemoglobin A1c goal of less than 7.0% (HCC) USE TO INJECT INSULINS 5 TIMES DAILY 500 Each 3 4 7:46 AM EDT 04/18/20 24 Active Gnozv-2-uoip Ethyl Esters 1 GM Oral Capsule (Lovaza) [...] as of this encounter (statuses as of 07/12/2024) Active Problems Patient Care Coordination No te Formatting of this note migh t be different from the original. Heart Failure Self-Management and Exacerbation Plan "RED FLAG" HF Symptoms: Leg Swelling Abdominal Bloating Increased dyspnea on exertion Increased shortness of breath at rest Orthopnea Remote Patient Monitoring Vendor: [facility] Device(s): Connected Scale Self - Management Plan [...] in the Comments) Remote Patient Monitoring Vendor: No [employer] Device(s): Connected Scale Self - Management Plan [...] as of this encounter (statuses as of 07/12/2024) Resolved Problems Problem Noted Date Diagnosed Date [...] has been better controlled recently. Monitor using [employer]. Assessment & Plan (12/19/2022 11:13 AM EDT): [...] as of this encounter (statuses as of 07/12/2024) Immunizations Name Administration Dates Next Due COVID-19 mRNA, LNP-s, No Pre serve, 2-Dose Series (Moderna) 12/10/2020,11/12/2020 Hepatitis B, 20+ yrs 01/04/2018,08/03/2017,07/03 Pneumococcal Conjugate Vacci ne, 20-valent ([id number]) 06/09/2022 Pneumococcal Polysaccharide PPV23 (Pneumovax) 03/06/2020 RSV [...] AM EST Home Visit [facility], [facility] 132 [facility] [place] [address] Love Stevens RN 132 [facility] [place] [address] 08/01/2024 2:20 PM EST Office Visit Family Practice [address] [place] [phone] Igor Mcconnell DO 293 [place] [address] 08/01/2024 3:00 PM EST Office Visit Family Practice [address] [place] [phone] College, Pharmacist [address] [place] [address] 08/08/2024 9:30 AM EST Nurse Only Ancillary [address] [place] [address] [place], Nurse [address] [place] [address] 09/27/2024 11:30 AM EDT Telemedicine Cardiology [facility] [place] [address] [address] [facility] [place] [address] [facility], Pharmacist Cardiology [place] [address] [place] [address] 10/27/2024 1:00 PM EDT Office Visit [facility] [place] [address] [place] [phone] Lindsey Sheikh CRNP [address] [place] [place] [address] 11/18/2024 2:00 PM EDT Office Visit Nephrology [address] [place] [address] ZemaLuisa leslie PA-C [address] [place] [address] Scheduled Procedures Name Priority Associated Diagnoses Date/Ti [...] this encounter Medical Devices Implanted Type Area Tensioning Machine Operator Device Identifier Shelf Expiration Date Model / Serial / Lot Lens Intraoc 21.0 - [id number] - [id number] Implanted:Qty: 1 on 01/22/2017 by Cheko Mcnamara MD at OR [facility] Right: Eye [employer] 08/05/2021 [id number] / [id number] / [id number] Lens Intraoc 21.5 - [id number] - [id number] Implanted:Qty: 1 on 02/03/2017 by Cheko Mcnamara MD at OR [facility] Left: Eye [employer] 09/02/2021 [id number] / [id number] / [id number] Hemostatic Clip Res 235cm - [id number] Implanted:Qty: 4 on 06/13/2024 by José Miguel Sifuentes MD at ENDOSCOPY [facility] [employer] : ENDOSCOPY 10/12/2026 [id number] / / [id number] Hemostatic Clip Res 235cm - [id number] Implanted:Qty: 4 on 06/13/2024 by José Miguel Sifuentes MD at ENDOSCOPY [facility] [employer] : ENDOSCOPY 03/18/2027 [id number] / / [id number] documented as of this encounter Advance Directives [...] and were consensually agreed upon. Care Teams Exterminator Helper Termite Relationship Specialty Start Date End Date Igor Mcconnell DO [address] [place] [address] PCP - General Internal Medicine 02/12/24 documented as of this encounter
--- OUTSIDE RECORDS SUMMARY | 2024-08-26 02:23 | External Medical Summary | Summary of Care ---
Author Name Unknown Organization [facility] Address [address] [place] [address] Phone [phone] Care Team Providers Care Field Naturalist Name Role Phone Igor Mcconnell DO Primary Care Provider [phone] Reason for Visit * Reason Comments Follow Up Encounter Details Date Type Department Care Team (Late st Contact Info) Description 07/01/2024 2:20 PM EST Office Visit Family Practice [address] [place] [address] [place] [address] Igor Mcconnell DO [address] [place] [address] Hyperglycemia*; 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); Type 2 diabetes mellitus with stage 4 chronic kidney disease, with long-term current use of insulin (HCC); Secondary biliary cirrhosis (HCC); CHAPINCITO on CPAP; Mixed dyslipidemia; DDD (degenerative disc disease), cervical; Type 2 diabetes mellitus with peripheral vascular disease (HCC); Chronic obstructive pulmonary disease, unspecified COPD type (HCC); Gout, arthropathy Allergies Active Allergy Reactions Criticality Noted Date Comments Metolazone Renal complications 11/10/2023 Note prior DTP with metolazone resulted in acute renal failure Other Allergy (See Comments) Rash Low 10/13/2022 1+ cocamidopropyl betaine Sglt2 Inhibitors Other (Please comment) High 09/04/2020 Genital infection Sulfa Antibiotics Rash 10/15/2016 documented as of this encounter (statuses as of 07/01/2024) Medications Aspirin 81 MG Tablet Take 1 [...] 14 days . 6 Each 3 04/24/20 Active Metamucil 28.3 % Oral Powder (Psyllium) [...] g 1 4 5:44 PM EDT 03/02/20 Active Allopurinol 300 MG Oral Tablet (Zyloprim)Indicati [...] 38 UNITS WITH DINNER PLUS CORRECTION PER [facility] OR DIRECTED UP TO 120 UNITS PER DAY 120 mL 3 4 11:17 AM EST 03/21/20 Active DIURETIC TITRATION PLAN If no improvement on day 3, contact [facility] for possible home visit 1 Each 03/24/20 Active Evolocumab 140 MG/ML Subcutaneous Solution Auto-injector (Repatha SureClick)Indicati ons:Dyslipidemia, goal LDL below 100,Mixed dyslipidemia Inject 140 mg under the skin every 14 days. 6 mL 3 4 11:42 AM EST 03/24/20 Active Additional Information Patient taking differently:140 mg Subcutaneous [id number],Om Fridays, Reported on 07/01/2024 Unifine Pentips 31G X 8 MM (Insulin Pen Needle)Indications :Type 2 diabetes mellitus with hemoglobin A1c goal of less than 7.0% (HCC) USE TO INJECT INSULINS 5 TIMES DAILY 500 Each 3 4 7:46 AM EDT 04/18/20 Active Bkubu-2-tgnb Ethyl Esters 1 GM Oral Capsule (Lovaza) Take 2 Capsules by mouth in the morning and 2 Capsules before bedtime. 360 Capsule 1 4 7:46 AM EDT 04/18/20 Active metOLazone 2.5 MG Oral Tablet [...] take as directed 800 Tablet 3 06/27/20 24 Active documented as of this encounter (statuses as of 07/01/2024) Active Problems Patient Care Coordination No te Formatting of this note migh t be different from the original. Heart Failure Self-Management and Exacerbation Plan "RED FLAG" HF Symptoms: Leg Swelling Abdominal Bloating Increased dyspnea on exertion Increased shortness of breath at rest Orthopnea Remote Patient Monitoring Vendor: [facility] Device(s): Connected Scale Self - [...] in the Comments) Remote Patient Monitoring Vendor: [employer] Device(s): Connected Scale Self - Management Plan [...] as of this encounter (statuses as of 07/01/2024) Resolved Problems Problem Noted Date Diagnosed Date [...] has been better controlled recently. Monitor using Lumexisstyle Cindy. Assessment & Plan (12/19/2022 11:13 AM [...] as of this encounter (statuses as of 07/01/2024) Immunizations Name Administration Dates Next Due COVID-19 mRNA, LNP-s, No Pre serve, 2-Dose Series (Moderna) 12/10/2020,11/12/2020 Hepatitis B, 20+ yrs 01/04/2018,08/03/2017,07/03 Pneumococcal Conjugate Vacci ne, 20-valent ([id number]) 06/09/2022 Pneumococcal Polysaccharide PPV23 (Pneumovax) 03/06/2020 RSV [...] 1988 Smokeless Tobacco: Never Tobacco Cessation:Counseling Given: Yes Alcohol Use Standard Drinks/Week Comments Not Currently [...] Sign Reading Time Taken Comments Blood Pressure 136/78 07/01/2024 2:15 PM EST Pulse 70 07/01/2024 2:15 PM EST Temperature 35.7 C (96.2 F) 07/01/2024 2:15 PM ES T Respiratory Rate 14 07/01/2024 2:15 PM EST Oxygen Saturation 97% 07/01/2024 2:15 PM EST Inhaled Oxygen Concentration - - Weight 127.1 kg (280 lb 4.8 oz) 07/01/2024 2:15 PM EST Height 182.9 cm (6') 07/01/2024 2:15 PM EST Body Mass Index 38.02 07/01/2024 2:15 PM EST documented in this encounter Progress Notes * Igor Mcconnell, - 07/01/2024 3:51 PM EST SUBJECTIVE: Tony Delong is a 64 year old male. Chief Complaint Patient presents with Follow Up HPI: Patient is a 64 year old male with a history of DM type II, CKD stage IV, Diastolic CHF, COPD, Hyperlipidemia, HTN, Gout, and Sleep Apnea that is seen for Hyperglycemia. He has elevated glucose for the last 3 weeks. Glucose was 600 yesterday. MTM increased insulin yesterday and glucose has improveda little. He has not increased his food intake recently. He does not have chest pain. Chronic shortness of breath is stable. He ambulates with a cane. No cough, chills, fever or dysuria are present. Patient Active Problem List Diagnosis Type 2 [...] fraction (HCC) Chronic obstructive pulmonary disease (HCC) Coronary artery calcification seen on CT scan Uncontrolled type 2 diabetes mellitus with hyperglycemia, with long-term current use of insulin (HCC) Hepatic cirrhosis (HCC) Type 2 diabetes mellitus with stage 4 chronic kidney disease, with long-term current use of insulin(HCC) Gout, arthropathy Current Outpatient Medications Medication Sig Dispense Refill Aspirin 81 MG Tablet Take 1 Tablet by mouth every evening. B Complex Capsule Take 1 Cap by mouth daily. CPAP every night at bedtime. Ondansetron 4 MG Oral Tablet Disintegrating (Zofran) [...] needed. (Max dose 3000 mg per day) Allopurinol 300 MG Oral Tablet (Zyloprim) Take 1 Tablet by mouth in the morning. 100 Tablet 3 Evolocumab 140 MG/ML Subcutaneous Solution Auto-injector ([employer]) Inject 140 mg under the skin every 14 days. (Patient taking differently: Inject 140 mg under the skin every 14 days. Om Fridays) 6 mL 3 Aulen-0-jwuq Ethyl Esters 1 GM Oral Capsule (Lovaza) [...] Tablet by mouth daily. 30 Tablet 11 Ozempic (2 MG/DOSE) 8 MG/3ML Subcutaneous Solution Pen-injector (Semaglutide (2 MG/DOSE)) Inject 2 mg under the skin once a week. 9 mL 1 Torsemide 20 MG Oral Tablet (Demadex) Take 4 Tablets by mouth 2 times a day. Or take as directed 800 Tablet 3 OneTouch Delica Lancets 33G Use 3 times daily - E11.9 (Patient taking differently: Use 3 times daily - E11.9) 300 Each 3 FreeStyle Cindy 2 Sensor Use as directed every 14 days . 6 Each 3 Metamucil 28.3 % Oral Powder (Psyllium) Take by mouth daily. At least 1 hour after other medications (Patient not taking: Reported on 05/02/2024) OneTouch Verio In Vitro Strip (Glucose Blood) USE TO TEST BLOOD GLUCOSE 3 TIMES A DAY. DX: E11.9 300 Strip 3 Tresiba FlexTouch 200 UNIT/ML Subcutaneous Solution Pen-injector INJECT UNDER THE SKIN 100 UNITS TWICE DAILY OR DIRECTED (Patient taking differently: Inject 116 Units under the skin 2 times a day.) 90 mL 3 Clotrimazole-Betamethasone 1-0.05 % External Cream (Lotrisone) Apply small amount of cream to scrotal area two times a day 90 g 1 NovoLOG FlexPen 100 UNIT/ML Subcutaneous Solution Pen-injector INJECT UNDER THE SKIN 20 UNITS AT BREAKFAST, 26 UNITS AT LUNCH, 38 UNITS WITH DINNER PLUS CORRECTION PER [facility] OR DIRECTED UP TO120 UNITS PER DAY 120 mL 3 DIURETIC TITRATION PLAN If no improvement on day 3, contact [facility] for possible home visit 1 Each 0 Unifine Pentips 31G X 8 MM (Insulin Pen Needle) USE TO INJECT INSULINS 5 TIMES DAILY 500 Each 3 No current facility-administered medications for this visit. The patient's medication list was reviewed and updated as needed. Past Medical History: Diagnosis Date NEMESIO (acute kidney injury) ([facility]) 04/30/2022 NEMESIO (acute kidney injury) ([facility]) 10/20/2023 creat 4.5 [facility] Diabetes ([facility]) Gout, arthropathy 07/01/2024 Heart failure, diastolic, due to HTN ([facility]) 01/25/2021 High blood pressure High cholesterol CHAPINCITO on CPAP 08/18/2017 ?[id number] Sleep apnea, obstructive Past Surgical History: Procedure Laterality Date ANKLE ARTHROSCOPY/SURGERY Right 07/2016 trimalleloar fra--ext fixation f/b [facility]IF - [facility] [place] [facility] COLONOSCOPY, DIAGNOSTIC (RECTUM) 01/01/2018 adenomatous polyp, repeat 5 yrs/COLONOSCOPY FLEXIBLE PROXIMAL DIAGNOSTIC performed by Dav Yap MD at ENDOSCOPY [facility] COLONOSCOPY, DIAGNOSTIC (RECTUM) 06/13/2024 poor prep/diverticulosis/hemorrhoids/multiple polyps/biopsies show adenomatous polyps/recall 1 year/COLONOSCOPY FLEXIBLE PROXIMAL DIAGNOSTIC performed by José Miguel Sifuentes MD at [facility]COPY [facility] EGD, FLEXIBLE, DIAGNOSTIC 11/13/2021 esophageal polyp, gastritis / ESOPHAGOGASTRODUODENOSCOPY (EGD), FLEXIBLE, TRANSORAL, DIAGNOSTIC performed by Emelia Conley DO at ENDOSCOPY [facility] EGD, FLEXIBLE, DIAGNOSTIC N/A 03/20/2022 ESOPHAGOGASTRODUODENOSCOPY (EGD), FLEXIBLE, TRANSORAL, DIAGNOSTIC performed by Darian [place] [facility] [place]GD, FLEXIBLE, DIAGNOSTIC N/A 06/16/2022 ESOPHAGOGASTRODUODENOSCOPY (EGD), FLEXIBLE, TRANSORAL, DIAGNOSTIC performed by Darian [place] MD [facility] [place]GD, FLEXIBLE, ENDO MUCOSAL RESECTION 01/24/2022 GEJ polyp - LGD, HGD / [facility] EGD, W/ENDOSCOPIC US 11/13/2021 [place] w/ HGD, fatty liver / ESOPHAGOGASTRODUODENOSCOPY (EGD), FLEXIBLE, TRANSORAL, ENDOSCOPIC ULTRASOUND performed by Emelia Conley DO at END[facility]COPY [facility] EGD, W/ENDOSCOPIC US 01/24/2022 bile duct stone, enlarged LN - normal bx, eso mass - [facility] SURGERY NEC 1989 LUMBAR / SACRAL EPIDURAL, SINGLE LEVEL 02/04/2018 INJECTION TRANSFORAMINAL EPIDURAL LUMBAR OR SACRAL performed by Uday Masterson DO at OR [facility] REMOVE CATARACT, INSERT LENS PROSTH Right 01/22/2017 right EXTRACAPSULAR CATARACT REMOVAL WITH INTRAOCULAR LENS performed by Cheko Mcnamara MD at [facility] REMOVE CATARACT, INSERT LENS PROSTH Left 02/03/2017 left EXTRACAPSULAR CATARACT REMOVAL WITH INTRAOCULAR LENS performed by Cheko Mcnamara MD at [facility] SACROILIAC JOINT INJECT W/GUIDANCE 11/20/2021 INJECTION SACROILIAC JOINT performed by Uday Masterson DO at [facility] THIGH OR KNEE SURGERY NEC Left 07/2016 sg [facility]--quad repair US ABDOMEN LIMITED 08/27/2021 Possible cirrhotic liver and also possible fatty metamorphosis of the liver, uncomplicated cholelithiasis Review of patient's allergies indicates: Allergen Reactions Sglt2 Inhibitors Other (Please comment) Genital infection Metolazone Renal complications Note prior DTP with metolazone resulted in acute renal failure Sulfa Antibiotics Rash Other Allergy (See Comments) Rash 1+ cocamidopropyl betaine Review of Systems Constitutional: Positive for fatigue. Negative for appetite change, chills, fever and unexpected weight change. HENT: Negative for congestion, rhinorrhea, sinus pressure and sore throat. Respiratory: Positive for shortness of breath. Negative for cough and wheezing. Cardiovascular: Negative for chest pain, palpitations and leg swelling. Gastrointestinal: Negative for abdominal pain, blood in stool, constipation, diarrhea, nausea and vomiting. Genitourinary: Negative for dysuria, frequency and hematuria. Neurological: Negative for dizziness, syncope and headaches. Psychiatric/Behavioral: Negative for confusion, decreased concentration and sleep disturbance. OBJECTIVE: BP 136/78 | Pulse 70 | Temp 96.2 F (35.7 C) | Resp 14 | Ht 6' (1.829 m) | Wt 280 lb 4.8 oz (127.1 kg) | SpO2 97% | BMI 38.02 kg/m | BSA 2.54 m Physical Exam Vitals and nursing note reviewed. Constitutional: General: He is not in acute distress. Appearance: Normal appearance. He is not toxic-appearing. HENT: Head: Normocephalic and atraumatic. Cardiovascular: Rate and Rhythm: Normal rate and regular rhythm. Heart sounds: Normal heart sounds. No murmur heard. No gallop. Pulmonary: Effort: Pulmonary effort is normal. Breath sounds: Normal breath sounds. No wheezing, rhonchi or rales. Abdominal: General: Bowel sounds are normal. There is no distension. Palpations: Abdomen is soft. Tenderness: There is no abdominal tenderness. Musculoskeletal: Right lower leg: No edema. Left lower leg: No edema. Neurological: Mental Status: He is alert and oriented to person, place, and time. Mental status is at baseline. Gait: Gait abnormal. Psychiatric: Mood and Affect: Mood normal. Behavior: Behavior normal. Thought Content: Thought content normal. PLAN AND ASSESSMENT: Hyperglycemia (Primary) - CORTISOL; Future; Expected date: 07/01/2024 - TSH WITH FREE T4 IF INDICATED; Future; Expected date: 07/01/2024 - URINALYSIS, POINT OF CARE (ENTER/EDIT) - CORTISOL - TSH WITH FREE T4 IF INDICATED Continue Ozempic, Novolog, and Tresiba per MTM 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) - COMPREHENSIVE METABOLIC PANEL; Future; Expected date: 07/01/2024 - CBC WITH WBC DIFFERENTIAL; Future; Expected date: 07/01/2024 - URINALYSIS, POINT OF CARE (ENTER/EDIT) - COMPREHENSIVE METABOLIC PANEL - CBC WITH WBC DIFFERENTIAL Continue Torsemide, Spironolactone, Carvedilol, and Metolazone Type 2 diabetes mellitus with stage 4 chronic kidney disease, with long-term current use of insulin(HCC) - HEMOGLOBIN A1C; Future; Expected date: 07/01/2024 - HEMOGLOBIN A1C Continue Ozempic, Novolog, and Tresiba per MTM Secondary biliary cirrhosis (HCC) CHAPINCITO on CPAP Mixed dyslipidemia Continue Evolocumab, and Pravastatin per Cardiology DDD (degenerative disc disease), cervical Type 2 diabetes mellitus with peripheral vascular disease (HCC) Chronic obstructive pulmonary disease, unspecified COPD type (HCC) Gout, arthropathy Continue Allopurinol Follow Up: Return in about 1 month (around 08/01/2024), or if symptoms worsen or fail to improve. Igor Mcconnell DO 3:51 PM 07/01/2024 * Zulema Frazier LPN - 07/01/2024 2:10 PM EST States on 06/29/2024 used over 30 U of novolog, 22 U yesterday. documented in this encounter Plan of Treatment Upcoming Encounters Date Type Department Care Team (Late st Contact Info) Description 07/04/2024 11:30 AM EST Telemedicine Family Practice [address] [facility] [address] [place] [phone] College, Pharmacist [address] [place] [address], [place] [id number] 07/26/2024 8:30 AM EST Home Visit [facility] [address] [facility] [place] [address] Love Stevens RN [address] [facility] [place] [address] 08/01/2024 2:20 PM EST Office Visit Family Practice [address] [facility] [address] [facility] [phone] Igor [facility] [address] [facility] [address] 08/08/2024 9:30 AM EST Nurse Only Ancillary [address] [place] [address] [place], Nurse [address] [place] [address] 09/27/2024 11:30 AM EDT Telemedicine Cardiology [facility] [place] [address] [place] [address] [place] [address], Pharmacist Cardiology [facility] [address] [place] [address] 10/27/2024 1:00 PM EDT [facility] [address] [place] [phone] Lindsey Sheikh CRNP [address] [place] [address] 11/18/2024 2:00 PM EDT Office Visit Nephrology [address] [place] [address] ZeLuisa reyes PA-C [address] [place] [address] Pending Results Name Type Priority Associated Diagnoses Date /Time CORTISOL Lab Routine Hyperglycemia 07/01/2024 2:59 PM EST TSH WITH FREE T4 IF INDICATED Lab Routine Hyperglycemia 07/01/2024 2:59 PM EST HEMOGLOBIN A1C Lab Routine Type 2 diabetes mellitus with stage 4 chronic kidney disease, with long-term current use of insulin ([facility]) 07/01/2024 2:59 PM EST COMPREHENSIVE METABOLIC PANEL Lab Routine 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 disease ([facility]) 07/01/2024 2:59 PM EST CBC WITH WBC DIFFERENTIAL Lab Routine 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 disease ([facility]) 07/01/2024 2:59 PM EST CBC Lab Routine 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 disease ([facility]) 07/01/2024 2:59 PM EST DIFFERENTIAL, AUTOMATED Lab Routine 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 disease ([facility]) 07/01/2024 2:59 PM EST Scheduled Orders Name Type Priority Associated Diagnoses Order Schedule CORTISOL Lab Routine Hyperglycemia Expected: 07/01/2024 (Approximate), Expires: 07/01/2025 TSH WITH FREE T4 IF INDICATED Lab Routine Hyperglycemia Expected: 07/01/2024 (Approximate), Expires: 07/01/2025 HEMOGLOBIN A1C Lab Routine Type 2 diabetes mellitus with stage 4 chronic kidney disease, with long-term current use of insulin (HCC) Expected: 07/01/2024 (Approximate), Expires: 07/01/2025 COMPREHENSIVE METABOLIC PANEL Lab Routine 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) Expected: 07/01/2024 (Approximate), Expires: 07/01/2025 CBC WITH WBC DIFFERENTIAL Lab Routine 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) Expected: 07/01/2024 (Approximate), Expires: 07/01/2025 URINALYSIS, POINT OF CARE (ENTER/EDIT) Point of Care Testing Routine 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) Hyperglycemia Ordered: 07/01/2024 Scheduled Procedures Name Priority Associated Diagnoses Date/Ti me COLONOSCOPY FLEXIBLE PROXIMA L DIAGNOSTIC Recall History of colonic polyps Health Maintenance Due Date Last Done Comments Alpha-1 Antitrypsin 1977 Cologuard 02/09/2004 Fecal Occult Blood Test 02/09/2004 Sigmoidoscopy 02/09/2004 COVID-19 Vaccine ( season) 2024 12/10/2020, 11/12/2020 Postponed from 03/06/2024 (Patient Declined After Education) Depression Screening 08/05/2024 08/05/2023 HbA1c 08/14/2024 02/12/2024, 04/01/2024, 06/11/2023, Additional history exists Diabetic Foot Exam 10/19/2024 10/20/2023, 0 09/02/2022, 08/16/2021, Additional history exists GFR 12/12/2024 06/13/2024, 05/07, 05/13/2024, Additional history exists Hgb 05/13/2025 05/13/2024, 09/0 12/2023, 02/24/2024, Additional history exists PTH 05/13/2025 05/13/2024, 02/05, 09/12/2020 Phosphate 05/13/2025 05/13/2024, 10/05, 10/23/2023, Additional [...] 06/16/2025 06/16/2022, 06/16/2022, 03/20/2022, Additional history exists DTap/Tdap Vaccines (2 - [...] this encounter Medical Devices Implanted Type Area Costume Specialist Device Identifier Shelf Expiration Date Model / Serial / Lot Lens Intraoc 21.0 - [id number] - [id number] Implanted:Qty: 1 on 01/22/2017 by Cheko Mcnamara MD at [facility] Right: Eye [employer] 08/05/2021 [id number] / [id number] / [id number] Lens Intraoc 21.5 - [id number] - [id number] Implanted:Qty: 1 on 02/03/2017 by Cheko Mcnamara MD at [facility] Left: Eye [employer] 09/02/2021 [id number] / [id number] / [id number] Hemostatic Clip Res 235cm - [id number] Implanted:Qty: 4 on 06/13/2024 by José Miguel Sifuentes MD at ENDOSCOPY [facility] [employer] [facility] ENDOSCOPY 10/12/2026 [id number] / / [id number] Hemostatic Clip Res 235cm - [id number] Implanted:Qty: 4 on 06/13/2024 by José Miguel Sifuentes MD at ENDOSCOPY [facility] [employer] [facility] ENDOSCOPY 03/18/2027 [id number] / / [id number] documented as of this encounter Visit Diagnoses Diagnosis Hypertensive 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 (HCC)- Primary CHAPINCITO on CPAP Obstructive sleep apnea (adult) (pediatric) Type 2 diabetes mellitus with stage 3b chronic kidney disease, with long-term current use of insulin ([facility]) Advanced care planning/counseling discussion- Primary Other [...] right eye and macular edema, unspecified whether health advocate insulin use (HCC) Chronic obstructive pulmonary disease, unspecified COPD type (HCC) Sacroiliitis (HCC) Sacroiliitis, not elsewhere classified Other specified peripheral vascular diseases (HCC) Coronary artery calcification seen on CT scan Mixed dyslipidemia Mixed hyperlipidemia Hyperglycemia- Primary Other abnormal glucose 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) Type 2 diabetes mellitus with stage 4 chronic kidney disease, with long-term current use of insulin (HCC) Secondary biliary cirrhosis (HCC) Biliary cirrhosis CHAPINCITO on CPAP Obstructive sleep apnea (adult) (pediatric) Mixed dyslipidemia Mixed hyperlipidemia DDD (degenerative disc disease), cervical Degeneration of cervical intervertebral disc Type 2 diabetes mellitus with peripheral vascular disease (HCC) Chronic obstructive pulmonary disease, unspecified COPD type (HCC) Gout, arthropathy Gouty arthropathy, unspecified documented in this encounter Advance Directives * [...] and were consensually agreed upon. Care Teams Field Naturalist Relationship Specialty Start Date End Date Igor Mcconnell DO [address] [place] [address] PCP - General Internal Medicine 02/12/24 documented as of this encounter
--- OUTSIDE RECORDS SUMMARY | 2024-08-26 02:23 | External Medical Summary | Summary of Care ---
Author Name Unknown Organization [facility] Address [address] [place] [address] Phone [phone] Care Team Providers Care Transformer Assembly Supervisor Name Role Phone Igor Mcconnell DO Primary Care Provider [phone] Reason for Visit * Reason Onset Date Comments Test Results 07/05/202407/05 Encounter Details Date Type Department Care Team (Late st Contact Info) Description 07/05/2024 Telephone Family Practice 65 [facility] [place] [address] [place] [address] Igor Mcconnell DO [address] [place] [address] Test Results (07/05 ) Allergies Active Allergy Reactions Criticality Noted Date Comments Metolazone Renal complications 11/10/2023 Note prior DTP with metolazone resulted in acute renal failure Other Allergy (See Comments) Rash Low 10/13/2022 1+ cocamidopropyl betaine Sglt2 Inhibitors Other (Please comment) High 09/04/2020 Genital infection Sulfa Antibiotics Rash 10/15/2016 documented as of this encounter (statuses as of 07/05/2024) Medications Aspirin 81 MG Tablet Take 1 [...] 38 UNITS WITH DINNER PLUS CORRECTION PER [place] [...] Additional Information Patient taking differently:140 mg Subcutaneous [id number],Om Fridays, Reported on 07/01/2024 Unifine Pentips 31G X 8 MM (Insulin Pen Needle)Indications :Type 2 diabetes mellitus with hemoglobin A1c goal of less than 7.0% (HCC) USE TO INJECT INSULINS 5 TIMES DAILY 500 Each 3 4 7:46 AM EDT 04/18/20 24 Active Qusnd-4-esyx Ethyl Esters 1 GM Oral Capsule (Lovaza) [...] as of this encounter (statuses as of 07/05/2024) Active Problems Patient Care Coordination No te Formatting of this note migh t be different from the original. Heart Failure Self-Management and Exacerbation Plan "RED FLAG" HF Symptoms: Leg Swelling Abdominal Bloating Increased dyspnea on exertion Increased shortness of breath at rest Orthopnea Remote Patient Monitoring Vendor: [employer] [...] in the Comments) Remote Patient Monitoring Vendor: [employer] Device(s): Connected Scale Self - Management Plan Double dose of Torsemide for 3 days Exacerbation Plan BMP Chest X-Ray Additional Comments: Recommended using double torsemide for 3 days in a row, rather than 1 day like he has been doing Continue using [employer] scale Low sodium diet Assessment & Plan [...] as of this encounter (statuses as of 07/05/2024) Resolved Problems Problem Noted Date Diagnosed Date [...] has been better controlled recently. Monitor using [employer] Cindy. Assessment & Plan (12/19/2022 11:13 AM [...] as of this encounter (statuses as of 07/05/2024) Immunizations Name Administration Dates Next Due COVID-19 mRNA, LNP-s, No Pre serve, 2-Dose Series (Moderna) 12/10/2020,11/12/2020 Hepatitis B, 20+ yrs 01/04/2018,08/03/2017,07/03 Pneumococcal Conjugate Vacci ne, 20-valent ([id number]) 06/09/2022 Pneumococcal Polysaccharide PPV23 (Pneumovax) 03/06/2020 RSV [...] Miscellaneous Notes * Telephone Encounter - Lilibeth Simmons OSA - 07/05/2024 10:01 AM EST Spoke with patient and scheduled. * Telephone Encounter - Zulema Frazier LPN - 07/05/2024 9:10 AM EST Patient is aware and will comply. Thank you * Telephone Encounter - Zulema Frazier LPN - 07/05/2024 9:05 AM EST ----- Message from Igor Mcconnell DO sent at 07/04/2024 3:47 PM EST ----- Anemia is stable Thyroid function and cortisol are normal Hgba1c is up and insulin already adjusted by MTM today LFT are normal. Alkaline Phophatase is up AST and ALT are stable. Check US liver, gallbladder and pancreas documented in this encounter Plan of Treatment Upcoming Encounters Date Type Department Care Team (Late st Contact Info) Description 07/07/2024 10:30 AM EST Imaging Radiology [address] [place] [address] 07/11/2024 11:20 AM EST Telemedicine Family Practice [address] [place] [address] 293 [place] [phone] College, Pharmacist [address] [place] [address] 07/26/2024 8:30 AM EST [facility] Visit [facility], [facility] 132 [facility] [place] [address] Love Stevens, ANNE MARIE 132 [place] [address] 08/01/2024 2:20 PM EST Office Visit Family Practice 65 [facility] 293 [place] [address] Igor Mcconnell, [address] [place] [address] 08/08/2024 9:30 AM EST Nurse Only Ancillary [address] [place] [address] [place], Nurse [address] [place] [address] 09/27/2024 11:30 AM EDT Telemedicine Cardiology [facility] [place] [address] [place] [address] [place] [address], Pharmacist Cardiology [facility] [address] [place] [address] 10/27/2024 1:00 PM EDT [facility] 132 [facility] [place] [phone] Lindsey Sheikh CRNP 132 [facility] [place] [address] 11/18/2024 2:00 PM EDT Office Visit Nephrology [address] [place] [address] ZeLuisa reyes PA-C 200 [facility] [place] [address] Scheduled Orders Name Type Priority Associated Diagnoses Orde r Schedule US ABDOMEN LIMITED Medical Imaging Routine Elevated LFTs Expected: 07/06/2024, Expires: 08/05/2025 Scheduled Procedures Name Priority Associated Diagnoses Date/Ti [...] this encounter Medical Devices Implanted Type Area Process Control Supervisor Device Identifier Shelf Expiration Date Model / Serial / Lot Lens Intraoc 21.0 - [id number] - [id number] Implanted:Qty: 1 on 01/22/2017 by Cheko Mcnamara MD at OR [facility] Right: Eye [employer] 08/05/2021 [id number] / [id number] / [id number] Lens Intraoc 21.5 - [id number] - [id number] Implanted:Qty: 1 on 02/03/2017 by Cheko Mcnamara MD at OR [facility] Left: Eye BA[employer]CH [employer] LOMB 09/02/2021 [id number] / [id number] / [id number] Hemostatic Clip Res 235cm - [id number] Implanted:Qty: 4 on 06/13/2024 by José Miguel Sifuentes MD at ENDOSCOPY [facility] : ENDOSCOPY 10/12/2026 [id number] / / [id number] Hemostatic Clip Res 235cm - [id number] Implanted:Qty: 4 on 06/13/2024 by José Miguel Sifuentes MD at ENDOSCOPY [facility] : ENDOSCOPY 03/18/2027 [id number] / / [id number] documented as of this encounter Visit Diagnoses Diagnosis Hypertensive 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 (HCC)- Primary CHAPINCITO on CPAP Obstructive sleep apnea (adult) (pediatric) Type 2 diabetes mellitus with stage 3b chronic kidney disease, with long-term current use of insulin ([facility]) Advanced care planning/counseling discussion- Primary [...] eye and macular edema, unspecified whether 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 Care Teams Transformer Assembly Supervisor Relationship Specialty Start Date End Date Igor Mcconnell DO [address] [place] [facility] [place] [address] PCP - General Internal Medicine 02/12/24 documented as of this encounter
--- OUTSIDE RECORDS SUMMARY | 2024-08-26 02:24 | External Medical Summary ---
Author Name Unknown Address Unknown Organization K01:[facility] - [address] [place] [facility] [place] [address] Laboratory Report Ordering Provider Test Date Status ANGE GARCÍA 07/01/2024 14:59:13 Final Observation Date Value Abnormality Reference (Units ) Status BUN 07/01/2024 14:59:13 63 Above high normal 6-20 (mg/dL) Final Creatinine 07/01/2024 14:59:13 3.0 Above high normal 0.6-1.2 (mg/dL) Final Glomerular filtration rate/1.73 sq M.predicted [Volume Rate/Area] in Serum, Plasma or Blood by Creatinine-based formula (CKD-EPI) 07/01/2024 14:59:13 22 Below low normal >=60 (mL/min) Final eGFR is calculated based on the CKD-EPI 2020 equation. Sodium 07/01/2024 14:59:13 132 Below low normal 135 -146 (mmol/L) Final Potassium 07/01/2024 14:59:13 4.8 3.5-5.1 (m mol/L) Final Cl 07/01/2024 14:59:13 91 Below low normal 98- 107 (mmol/L) Final CO2 07/01/2024 14:59:13 25 22-32 (mmo l/L) Final Anion gap 07/01/2024 14:59:13 16 Above high normal 7- 15 (mmol/L) Final Glucose 07/01/2024 14:59:13 427 Above high normal 70 -120 (mg/dL) Final Albumin 07/01/2024 14:59:13 4.2 3.8-5.0 (g /dL) Final AST (Aspartate aminotransferase) 07/01/2024 14:59:13 93 Above high normal 10-50 (U/L) Final Alk Phos 07/01/2024 14:59:13 170 Above high normal 35 -130 (U/L) Final Bilirubin, Total 07/01/2024 14:59:13 0.7 <=1 .2 (mg/dL) Final Calcium 07/01/2024 14:59:13 9.8 8.4-10.2 ( mg/dL) Final Protein 07/01/2024 14:59:13 8.0 6.0-8.3 (g /dL) Final ALT (Alanine aminotransferase) 07/01/2024 14:59:13 86 Above high normal 10-50 (U/L) Final Performing Location [facility] [place] - [address] [facility] [address]
--- OUTSIDE RECORDS SUMMARY | 2024-08-26 02:24 | External Medical Summary | Summary of Care ---
Author Name Unknown Organization [facility] Address [address] [place] [address] Phone [phone] Care Team Providers Care Supervisor Blasting Name Role Phone Igor Mcconnell DO Primary Care Provider [phone] Reason for Visit * Reason Onset Date Comments Advice 06/30/2024 BSG Encounter Details Date Type Department Care Team (Late st Contact Info) Description 06/30/2024 Telephone Family Practice 65 [facility] [place] [address] [place] [address] Igor Mcconnell DO [address] [place] [address] Advice (BSG) Allergies Active Allergy Reactions Criticality Noted Date Comments Metolazone Renal complications 11/10/2023 Note prior DTP with metolazone resulted in acute renal failure Other Allergy (See Comments) Rash Low 10/13/2022 1+ cocamidopropyl betaine Sglt2 Inhibitors Other (Please comment) High 09/04/2020 Genital infection Sulfa Antibiotics Rash 10/15/2016 documented as of this encounter (statuses as of 06/30/2024) Medications Aspirin 81 MG Tablet Take 1 [...] 025 Active Additional Information Patient taking differently: 100 Units Subcutaneous BID(Non-Specified), Reported on 06/28/2024 Vitamin D 125 MCG (5000 UT) Oral [...] 38 UNITS WITH DINNER PLUS CORRECTION PER [facility] OR DIRECTED UP TO 120 UNITS PER DAY 120 mL 3 4 11:17 AM EST 03/21/20 24 Active DIURETIC TITRATION PLAN If no improvement on day 3, contact [facility] for possible home visit 1 Each 03/24/20 24 Active Evolocumab 140 MG/ML Subcutaneous Solution Auto-injector (Repatha SureClick)Indicati ons:Dyslipidemia, goal LDL below 100,Mixed dyslipidemia Inject 140 mg under the skin every 14 days. 6 mL 3 4 11:42 AM EST 03/24/20 24 Active Additional Information Patient taking differently:140 mg Subcutaneous [id number],Om Fridays, Reported on 06/07/2024 Unifine Pentips 31G X 8 MM (Insulin Pen Needle)Indications :Type 2 diabetes mellitus with hemoglobin A1c goal of less than 7.0% (HCC) USE TO INJECT INSULINS 5 TIMES DAILY 500 Each 3 4 7:46 AM EDT 04/18/20 24 Active Ymosb-2-numi Ethyl Esters 1 GM Oral Capsule (Lovaza) [...] 200 Tablet 3 4 2:43 PM EST 11/12/ 025 Active Potassium Chloride [place] ER 20 [...] as of this encounter (statuses as of 06/30/2024) Active Problems Patient Care Coordination No te Formatting of this note migh t be different from the original. Heart Failure Self-Management and Exacerbation Plan "RED FLAG" HF Symptoms: Leg Swelling Abdominal Bloating Increased dyspnea on exertion Increased shortness of breath at rest Orthopnea Remote Patient Monitoring Vendor: [facility] [...] IV Lasix Problem Noted Date Diagnosed Date Hepatic cirrhosis 02/12/2024 Type 2 diabetes mellitus [...] as of this encounter (statuses as of 06/30/2024) Resolved Problems Problem Noted Date Diagnosed Date [...] has been better controlled recently. Monitor using [employer] Cindy. Assessment & Plan (12/19/2022 11:13 AM [...] as of this encounter (statuses as of 06/30/2024) Immunizations Name Administration Dates Next Due COVID-19 mRNA, LNP-s, No Pre serve, 2-Dose Series (Moderna) 12/10/2020,11/12/2020 Hepatitis B, 20+ yrs 01/04/2018,08/03/2017,07/03 Pneumococcal Conjugate Vacci ne, 20-valent ([id number]) 06/09/2022 Pneumococcal Polysaccharide PPV23 (Pneumovax) 03/06/2020 RSV [...] encounter Miscellaneous Notes * Telephone Encounter - Delia Angulo, [facility] - 06/30/2024 12:11 PM EST Diabetes telephone follow - up 06/30/2024 Patient Phone Numbers mobile [phone] - Reason for contacting patient: Patient reports his sugars have been up over 600 the last two days. He thinks that restarting a statin is to blame and reports he's not ever taking statins again. He reports with the holiday, he's not eating perfectly but that he's never seen sugars like this. Patient denies any signs/symptoms of infection including negative for cough/URI, fever, etc. Also denies any other potential reasons for high sugars. Reports he doesn't believe any of his insulin is or encountered heat/freezing. Confirms changing needles frequently. - Current diabetic medications: Increase Ozempic 2mg weekly (cordell nordisk) via titration Increase Tresiba (U200) 100 units twice daily - (increased on own to 110 the last two days) Decrease Novolog 20 units with breakfast, 26 units with lunch, 38 units with dinner + CF 1:15 over 150 (increased on own to 70 units with meals and gave > 300 units yesterday alone) - Glucose review/ SMBG: Breakfast: pre meal - Splenda protein shake and a banana Lunch/Dinner - mid afternoon - soup; chicken and baked potatoes Evening: chips, ice cream, "garbage" Beverages: iced tea - homemade with no sweetner, diet pepsi, maybe a little water Therapy Management Assessment/Plan: 1) Diabetes:Advised patient that I don't believe his pravastatin is to blame for the increased blood sugars. Advised to increase Tresiba and not to give 2 novolog doses within 3 hours of one another.Patient to follow up with PCP tomorrow and we will get CMP/CBC. Ozempic 2mg weekly (cordell nordisk) Increase Tresiba (U200) 116 units twice daily Novolog 70 units with each meal - do not administer two novolog doses within 3 hours of one another. Follow up in 1 day with PCP, phone call in 4 days with MTDM. Delia Diaz [facility], Pharm D Clinical Pharmacist Medication Therapy [facility] 06/30/2024, 12:11 PM * Telephone Encounter - Hermila Jung OSA - 06/30/2024 11:05 AM EST Is having issues managing his diabetes Blood sugar up to 600 yesterday Is having a lot of problems Wants to speak to Delia Please advise documented in this encounter Plan of Treatment Upcoming Encounters Date Type Department Care Team (Late st Contact Info) Description 07/01/2024 2:20 PM EST Office Visit Family Practice [address] [place] [address] 293 [place] [address] Igor Mcconnell DO 293 [facility] [address] 07/04/2024 11:30 AM EST Telemedicine Family Practice 65 [facility] 293 [facility] [phone] College, Pharmacist [address] [place] [address] [place] [address] 07/26/2024 8:30 AM EST Home Visit [facility] 132 [facility] [place] [address] [place], RN [address] [place] [address] 08/08/2024 9:30 AM EST Nurse Only Ancillary [address] [place] [address] [place], Nurse [address] [place] [address] 09/27/2024 11:30 AM EDT Telemedicine Cardiology [facility] [place] [address] [place], [place] [id number] [place] [address], Pharmacist Cardiology [facility] [address] [place] [address] 10/27/2024 1:00 PM EDT Office Visit Sleep Disorders Ctr [facility]iliano [facility] [place] [facility] [place] [phone] Lindsey Sheikh CRNP [address] [place] [address] 11/18/2024 2:00 PM EDT Office Visit Nephrology [address] [place] [address] Zemaitis, Luisa Guzman PA-C [address] [place] [address] Scheduled Procedures Name Priority Associated Diagnoses Date/Ti me COLONOSCOPY FLEXIBLE PROXIMA L DIAGNOSTIC Recall History of colonic polyps Health Maintenance Due Date Last Done Comments Alpha-1 Antitrypsin 1977 Cologuard 02/09/2004 Fecal Occult Blood Test 02/09/2004 Sigmoidoscopy 02/09/2004 COVID-19 Vaccine ( season) 2024 12/10/2020, 11/12/2020 Depression Screening 08/05/2024 08/05/2023 HbA1c 08/14/2024 02/12/2024, 10/04, 06/11/2023, Additional history exists Diabetic Foot Exam 10/19/2024 10/20/2023, 0 09/02/2022, 08/16/2021, Additional history exists GFR 12/12/2024 06/13/2024, 05/07, 05/13/2024, Additional history exists Hgb 05/13/2025 05/13/2024, 12/2023, 02/24/2024, Additional history exists PTH 05/13/2025 [...] this encounter Medical Devices Implanted Type Area News Internship Device Identifier Shelf Expiration Date Model / Serial / Lot Lens Intraoc 21.0 - [id number] - [id number] Implanted:Qty: 1 on 01/22/2017 by Cheko Mcnamara MD at OR [facility] Right: Eye [employer]OM[employer] 08/05/2021 [id number] / [id number] / [id number] Lens Intraoc 21.5 - [id number] - [id number] Implanted:Qty: 1 on 02/03/2017 by Cheko Mcnamara MD at OR [facility] Left: Eye BAUSCH [employer] LOMB 09/02/2021 [id number] / [id number] / [id number] Hemostatic Clip Res 235cm - [id number] Implanted:Qty: 4 on 06/13/2024 by José Miguel Sifuentes MD at ENDOSCOPY [facility] : ENDOSCOPY 10/12/2026 [id number] / / [id number] Hemostatic Clip Res 235cm - [id number] Implanted:Qty: 4 on 06/13/2024 by José Miguel Sifuentes MD at ENDOSCOPY [facility] : ENDOSCOPY 03/18/2027 [id number] / / [id number] documented as of this encounter Visit Diagnoses Diagnosis Hypertensive 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 (HCC)- Primary CHAPINCITO on CPAP Obstructive sleep apnea (adult) (pediatric) Type 2 diabetes mellitus with stage 3b chronic kidney disease, with long-term current use of insulin ([facility]) Advanced care planning/counseling discussion- Primary Other specified counseling Hypertensive 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 (HCC) CHAPINCITO on CPAP Obstructive sleep apnea (adult) (pediatric) Mixed dyslipidemia Mixed hyperlipidemia Type 2 diabetes mellitus with hemoglobin A1c goal of less than 8.0% ([facility]) Arreola's esophagus with high grade dysplasia Arreola's [...] eye and macular edema, unspecified whether terminal carman insulin use (HCC) Chronic obstructive pulmonary disease, unspecified COPD type (HCC) Sacroiliitis (HCC) Sacroiliitis, not elsewhere classified Other specified peripheral vascular diseases (HCC) Coronary artery calcification seen on CT scan Mixed dyslipidemia Mixed hyperlipidemia Type 2 diabetes mellitus with stage 4 chronic kidney disease, with long-term current use of insulin (HCC)- Primary Type 2 diabetes mellitus with hemoglobin A1c [...] were consensually agreed upon. Care Teams Supervisor Blasting Relationship Specialty Start Date End Date Igor Mcconnell DO 293 [place] [address] PCP - General Internal Medicine 02/12/24 documented as of this encounter
--- OUTSIDE RECORDS SUMMARY | 2024-08-26 02:24 | External Medical Summary | Summary of Care ---
Author Name Unknown Organization [facility] Address [address] [facility] [place] [address] Phone [phone] Care Team Providers Care Tire Bladder Maker Name Role Phone Igor Mcconnell DO Primary Care Provider [phone] Encounter Details Date Type Department Care Team (Late st Contact Info) Description 06/28/2024 2:30 PM EST [facility] [address] [place] [address] Love Stevens, [place] MAR[place] [address] [place] [address] Allergies Active Allergy Reactions Criticality Noted Date Comments Metolazone Renal complications 11/10/2023 Note prior DTP with metolazone resulted in acute renal failure Other Allergy (See Comments) Rash Low 10/13/2022 1+ cocamidopropyl betaine Sglt2 Inhibitors Other (Please comment) High 09/04/2020 Genital infection Sulfa Antibiotics Rash 10/15/2016 documented as of this encounter (statuses as of 06/28/2024) Medications Aspirin 81 MG Tablet Take 1 [...] 38 UNITS WITH DINNER PLUS CORRECTION PER [facility] OR DIRECTED UP TO 120 UNITS PER DAY 120 mL 3 4 11:17 AM EST 03/21/20 24 Active DIURETIC TITRATION PLAN If no improvement on day 3, contact [facility] for possible home visit 1 Each 03/24/20 24 Active Evolocumab 140 MG/ML Subcutaneous Solution Auto-injector (Repatha SureClick)Indicati ons:Dyslipidemia, goal LDL below 100,Mixed dyslipidemia Inject 140 mg under the skin every 14 days. 6 mL 3 4 11:42 AM EST 03/24/20 24 Active Additional Information Patient taking differently:140 mg Subcutaneous [id number],Om Fridays, Reported on 06/07/2024 Unifine Pentips 31G X 8 MM (Insulin Pen Needle)Indications :Type 2 diabetes mellitus with hemoglobin A1c goal of less than 7.0% (HCC) USE TO INJECT INSULINS 5 TIMES DAILY 500 Each 3 4 7:46 AM EDT 04/18/20 24 Active Zvava-9-jdba Ethyl Esters 1 GM Oral Capsule (Lovaza) [...] as directed 800 Tablet 3 06/27/20 Active Ozempic (2 MG/DOSE) 8 MG/3ML Subcutaneous Solution Pen-injector (Semaglutide (2 MG/DOSE))Indicatio ns:Type 2 diabetes mellitus with stage 4 chronic kidney disease, with long-term current use of insulin ([facility]) Inject 2 mg under the skin once a week. 2 mL 11 4 1:20 PM EDT 02/16/20 024 Discontin ued(Refil l) documented as of this encounter (statuses as of 06/28/2024) Active Problems Patient Care Coordination No te Formatting of this note migh t be different from the original. Heart Failure Self-Management and Exacerbation Plan "RED FLAG" HF Symptoms: Leg Swelling Abdominal Bloating Increased dyspnea on exertion Increased shortness of breath at rest Orthopnea Remote Patient Monitoring Vendor: [facility] Device(s): Connected Scale Self - Management Plan [...] in the Comments) Remote Patient Monitoring Vendor: [employer] Device(s): Connected Scale Self - Management Plan [...] as of this encounter (statuses as of 06/28/2024) Resolved Problems Problem Noted Date Diagnosed Date [...] has been better controlled recently. Monitor using Nuvilex Cindy. Assessment & Plan (12/19/2022 11:13 AM [...] as of this encounter (statuses as of 06/28/2024) Immunizations Name Administration Dates Next Due COVID-19 mRNA, LNP-s, No Pre serve, 2-Dose Series (Moderna) 12/10/2020,11/12/2020 Hepatitis B, 20+ yrs 01/04/2018,08/03/2017,07/03 Pneumococcal Conjugate Vacci ne, 20-valent ([id number]) 06/09/2022 Pneumococcal Polysaccharide PPV23 (Pneumovax) 03/06/2020 RSV [...] Progress Notes * Love Stevens RN - 06/28/2024 9:09 AM EST Images from [...] Care gaps closed this contact: Education (06/28/24 0035) Type of education: Clinical/disease (06/28/24 7673) documented in this encounter Plan of Treatment Upcoming Encounters Date Type Department Care Team (Late st Contact Info) Description 07/01/2024 2:20 PM EST Office Visit Family Practice [address] [place] [address], [place] [facility] [address] Igor Mcconnell, 293 [facility] [address] 07/26/2024 8:30 AM EST [facility] Visit [facility] [address] [place] [address] Love Stevens, ANNE MARIE [address] [place] [address] 08/08/2024 9:30 AM EST Nurse Only Ancillary [address] [place] [address] [place], Nurse [address] [place] [address] 09/27/2024 11:30 AM EDT Telemedicine Cardiology [facility], [place] [address] [place] [address] [place] [address], Pharmacist Cardiology [facility] [address] [place] [address] 10/27/2024 1:00 PM EDT Office Visit [facility] Disorders Ctr [facility] [address] [place] [phone] Lindsey Sheikh CRNP [address] [place] [address] 11/18/2024 2:00 PM EDT Office Visit Nephrology [address] [place] [address] Luisa Ching PA-C [address] [place] [address] Health Maintenance Due Date Last Done Comments [...] 02/24/2024, Additional history exists PTH 05/13/2025 05/13/2024, 08/3 07/2021, 09/12/2020 Phosphate 05/13/2025 05/13/2024, 10/05, 10/23/2023, Additional history exists Albumin/Creatinine Ratio 05/18/202505/18/ 024, 05/13/2024, 06/11/2023, Additional history exists Diabetic Eye Exam 05/19/2025 05/19/2024, , 04/11/2024, Additional history exists Nephrology Referral 05/30/2025 05/30/2024 O2 ASSESSMENT COMPLETED IN PAST YEAR FOR COPD 06/13/2025 06/13/2024 Arreola's Esophagus Surveilance 06/16/2025 06/16/2022, 06/16/2022, 03/20/2022, Additional history exists DTap/Tdap Vaccines (2 - Td or Tdap) 12/29/2026 12/29/2016 Colonoscopy 06/13/2029 06/13/2024, 12/0 03/2024, 01/01/2018, Additional history exists Colorectal Cancer Screening 06/13/2029 Hepatitis B Vaccine Completed 01/04/2018, 08/03/2017, 07/03/2017 Zoster Vaccines Completed 05/29/2020, 01/27/2020 Pneumococcal Vaccine: 65+ Years Completed 06/09/2022, 03/06/2020 AAA Screening Completed [...] this encounter Medical Devices Implanted Type Area Mysql Database Developer Device Identifier Shelf Expiration Date Model / Serial / Lot Lens Intraoc 21.0 - [id number] - [id number] Implanted:Qty: 1 on 01/22/2017 by Cheko Mcnamara MD at OR [facility] Right: Eye BAUSCH & LOMB 08/05/2021 [id number] / [id number] / [id number] Lens Intraoc 21.5 - [id number] - [id number] Implanted:Qty: 1 on 02/03/2017 by Cheko Mcnamara MD at OR [facility] Left: Eye BAUSCH & LOMB 09/02/2021 [id number] / [id number] / [id number] Hemostatic Clip Res 235cm - [id number] Implanted:Qty: 4 on 06/13/2024 by José Miguel Sifuentes MD at ENDOSCOPY [facility] [employer] : ENDOSCOPY 10/12/2026 [id number] / / [id number] Hemostatic Clip Res 235cm - [id number] Implanted:Qty: 4 on 06/13/2024 by José Miguel Sifuentes MD at ENDOSCOPY [facility] [employer] : ENDOSCOPY 03/18/2027 [id number] / / [id number] documented as of this encounter Advance Directives [...] and were consensually agreed upon. Care Teams Tire Bladder Maker Relationship Specialty Start Date End Date Igor Mcconnell DO [address] [place] [address] PCP - General Internal Medicine 02/12/24 documented as of this encounter
--- OUTSIDE RECORDS SUMMARY | 2024-08-26 02:24 | External Medical Summary | Summary of Care ---
Author Name Unknown Organization [facility] Address [address] [facility] [place] [address] Phone [phone] Care Team Providers Care Plate Preparer Name Role Phone Igor Mcconnell DO Primary Care Provider [phone] Reason for Visit * Reason Onset Date Comments Appointment 06/30/2024 Encounter Details Date Type Department Care Team (Late st Contact Info) Description 06/30/2024 Telephone Gastroenterology, [facility] system [address] [place] [address] José Miguel Sifuentes MD [address] [place] [address] Appointment Allergies Active Allergy Reactions Criticality Noted [...] 38 UNITS WITH DINNER PLUS CORRECTION PER [facility] OR DIRECTED UP TO 120 UNITS PER DAY 120 mL 3 4 11:17 AM EST 03/21/20 24 Active DIURETIC TITRATION PLAN If no improvement on day 3, contact [facility] for possible home visit 1 Each 03/24/20 24 Active Evolocumab 140 MG/ML Subcutaneous Solution Auto-injector (Repatha SureClick)Indicati ons:Dyslipidemia, goal LDL below 100,Mixed dyslipidemia Inject 140 mg under the skin every 14 days. 6 mL 3 4 11:42 AM EST 03/24/20 24 Active Additional Information Patient taking differently:140 mg Subcutaneous [id number],Om Fridays, Reported on 06/07/2024 Unifine Pentips 31G X 8 MM (Insulin Pen Needle)Indications :Type 2 diabetes mellitus with hemoglobin A1c goal of less than 7.0% (HCC) USE TO INJECT INSULINS 5 TIMES DAILY 500 Each 3 4 7:46 AM EDT 04/18/20 24 Active Epeur-9-hkde Ethyl Esters 1 GM Oral Capsule (Lovaza) [...] at rest Orthopnea Remote Patient Monitoring Vendor: [facility] Device(s): Connected Scale [...] the Comments) Remote Patient Monitoring Vendor: [facility] Device(s): Connected Scale [...] has been better controlled recently. Monitor using Ziva Software Cindy. Assessment & Plan (12/19/2022 11:13 AM [...] yrs 01/04/2018,08/03/2017,07/03 Pneumococcal Conjugate Vacci ne, 20-valent ([id number]) 06/09/2022 Pneumococcal Polysaccharide PPV23 (Pneumovax) 03/06/2020 RSV [...] encounter Miscellaneous Notes * Telephone Encounter - Lizeth Brewer OSA - 06/30/2024 10:15 AM EST Pt to have repeat colonoscopy 06/13/25. Please call when schedules are available. Thank you. documented in this encounter Plan of Treatment Upcoming Encounters Date Type Department Care Team (Late st Contact Info) Description 07/01/2024 2:20 PM EST Office Visit Family Practice [address] [facility], [place] 293 [place] [address] Igor Mcconnell, 293 [place] [address] 07/26/2024 8:30 AM EST Home Visit [facility] 132 [place] [address] Love Stevens, ANNE MARIE 132 [facility] [place] [address] 08/08/2024 9:30 AM EST Nurse Only Ancillary [address] [place] [address] [place], Nurse [address] [place] [address] 09/27/2024 11:30 AM EDT Telemedicine [facility] [place] [address] [facility] [address] [facility], Pharmacist Cardiology [facility] [address] [facility] [place] [address] 10/27/2024 1:00 PM EDT Office Visit Sleep Disorders Ctr [facility] V[place] [address] [place] [phone] Lindsey Sheikh CRNP [address] [place] [address] 11/18/2024 2:00 PM EDT Office Visit Nephrology [address] [place] [address] Zemaitis, Luisa Guzman PA-C [address] [place] [address] Scheduled Procedures Name Priority Associated Diagnoses Date/Ti [...] 02/24/2024, Additional history exists PTH 05/13/2025 05/13/2024, 0807/2021, 09/12/2020 Phosphate 05/13/2025 05/13/2024, 10/05, 10/23/2023, Additional [...] encounter Medical Devices Implanted Type Area Field Horticultural Specialty Grower Device Identifier Shelf Expiration Date Model / Serial / Lot Lens Intraoc 21.0 - [id number] - [id number] Implanted:Qty: 1 on 01/22/2017 by Cheko Mcnamara MD at OR [facility] Right: Eye BAUSCH & LOMB 08/05/2021 [id number] / [id number] / [id number] Lens Intraoc 21.5 - [id number] - [id number] Implanted:Qty: 1 on 02/03/2017 by Cheko Mcnamara MD at [facility] Left: Eye BAUSCH & LOMB 09/02/2021 [id number] / [id number] / [id number] Hemostatic Clip Res 235cm - [id number] Implanted:Qty: 4 on 06/13/2024 by José Miguel Sifuentes MD at ENDOSCOPY [facility] [employer] : ENDOSCOPY 10/12/2026 [id number] / / [id number] Hemostatic Clip Res 235cm - [id number] Implanted:Qty: 4 on 06/13/2024 by José Miguel Sifuentes MD at ENDOSCOPY [facility] [employer] : ENDOSCOPY 03/18/2027 [id number] / / [id number] documented as of this encounter Advance Directives [...] were consensually agreed upon. Care Teams Plate Preparer Relationship Specialty Start Date End Date Igor Mcconnell DO [address] [place] [address] PCP - General Internal Medicine 02/12/24 documented as of this encounter
--- OUTSIDE RECORDS SUMMARY | 2024-08-26 02:24 | External Medical Summary ---
Author Name Unknown Address Unknown Organization K01:[facility] [place] [facility] [address] [facility] [place] [address] Laboratory Report Ordering Provider Test Date Status ANGE GARCÍA 07/01/2024 14:59:13 Final Observation Date Value Abnormality Reference (Units ) Status WBC, Total 07/01/2024 14:59:13 6.62 4.00-10.80 (K/uL) Final RBC 07/01/2024 14:59:13 4.41 4.50-5.25 (M/uL) Final Hemoglobin 07/01/2024 14:59:13 11.9 Below low normal 14.0-16.8 (g/dL) Final HCT 07/01/2024 14:59:13 37.1 Below low normal 40.0-48.4 (%) Final MCV 07/01/2024 14:59:13 84.1 82.0-99.5 (fL) Final MCH 07/01/2024 14:59:13 27.0 27.0-34.0 (pg) Final MCHC 07/01/2024 14:59:13 32.1 32.0-36.0 (g/dL) Final RDW 07/01/2024 14:59:13 15.9 11.5-15.5 (%) Final Platelets 07/01/2024 14:59:13 150 140-400 (K/uL) Final MPV 07/01/2024 14:59:13 11.3 6.6-11.1 (fL) Final Nucleated erythrocytes/100 leukocytes [Ratio] in Blood by Automated count 07/01/2024 14:59:13 0 <=0 (/100 WBCs) Final Performing Location [facility] [place] [facility] [address] [facility] [place] [address]
--- OUTSIDE RECORDS SUMMARY | 2024-08-26 02:24 | External Medical Summary | Summary of Care ---
Author Name Unknown Organization [facility] Address [address] [place] [address] Phone [phone] Care Team Providers Care Synthetic Cloth Binding Cutter Name Role Phone Igor Mcconnell DO Primary Care Provider [phone] Reason for Visit * Reason Onset Date Comments Advice 06/30/2024 BSG Encounter Details Date Type Department Care Team (Late st Contact Info) Description 06/30/2024 Telephone Family Practice [address] [facility] [place] [address] [place] [address] Igor Mcconnell DO 293 [place] [address] Advice (BSG) Allergies Active Allergy Reactions Criticality [...] 38 UNITS WITH DINNER PLUS CORRECTION PER [facility] OR DIRECTED UP TO 120 UNITS PER DAY 120 mL 3 4 11:17 AM EST 03/21/20 24 Active DIURETIC TITRATION PLAN If no improvement on day 3, contact [facility] for possible home visit 1 Each 03/24/20 24 Active Evolocumab 140 MG/ML Subcutaneous Solution Auto-injector (Repatha SureClick)Indicati ons:Dyslipidemia, goal LDL below 100,Mixed dyslipidemia Inject 140 mg under the skin every 14 days. 6 mL 3 4 11:42 AM EST 03/24/20 24 Active Additional Information Patient taking differently:140 mg Subcutaneous [id number],Om Fridays, Reported on 06/07/2024 Unifine Pentips 31G X 8 MM (Insulin Pen Needle)Indications :Type 2 diabetes mellitus with hemoglobin A1c goal of less than 7.0% (HCC) USE TO INJECT INSULINS 5 TIMES DAILY 500 Each 3 4 7:46 AM EDT 04/18/20 24 Active Vzuah-7-nrgj Ethyl Esters 1 GM Oral Capsule (Lovaza) [...] at rest Orthopnea Remote Patient Monitoring Vendor: [facility] Device(s): Connected Scale Self [...] in the Comments) Remote Patient Monitoring Vendor: [facility] Device(s): Connected Scale Self [...] has been better controlled recently. Monitor using Acrolinx Cindy. Assessment & Plan (12/19/2022 11:13 AM [...] yrs 01/04/2018,08/03/2017,07/03 Pneumococcal Conjugate Vacci ne, 20-valent ([id number]) 06/09/2022 Pneumococcal Polysaccharide PPV23 (Pneumovax) 03/06/2020 RSV [...] Notes * Telephone Encounter - Delia Angulo, [facility] - 06/30/2024 12:11 PM EST Diabetes telephone follow - up 06/30/2024 Patient Phone Numbers mobile [phone] - Reason for contacting patient: Patient reports [...] in 4 days with MTDM. Delia Diaz [facility], Pharm D Clinical Pharmacist Medication Therapy Management [...] 2:20 PM EST Office Visit Family Practice [address] [place] [address] 293 [place] [address] Igor Mcconnell DO 293 [facility] [address] 07/04/2024 11:30 AM EST Telemedicine Family Practice 65 [facility] 293 [facility] [phone] College, Pharmacist [address] [place] [address] [place] [address] 07/26/2024 8:30 AM EST Home Visit [facility] 132 [facility] [place] [address] [place], RN [address] [place] [address] 08/08/2024 9:30 AM EST Nurse Only Ancillary [address] [place] [address] [place], Nurse [address] [place] [address] 09/27/2024 11:30 AM EDT Telemedicine Cardiology [facility] [place] [address] [place], [place] [phone] [place] [address], Pharmacist Cardiology [facility] [address] [place] [address] 10/27/2024 1:00 PM EDT Office Visit Sleep Disorders Ctr [facility] [place] [facility] [place] [phone] Lindsey Sheikh CRNP [address] [place] [address] 11/18/2024 2:00 PM EDT Office Visit Nephrology [address] [place] [address] Zemaitis, Luisa Guzman PA-C [address] [place] [address] Scheduled Procedures Name Priority Associated Diagnoses Date/Ti [...] this encounter Medical Devices Implanted Type Area Bridge Leverman Device Identifier Shelf Expiration Date Model / Serial / Lot Lens Intraoc 21.0 - [id number] - [id number] Implanted:Qty: 1 on 01/22/2017 by Cheko Mcnamara MD at OR [facility] Right: Eye BAUSCH & LOMB 08/05/2021 [id number] / [id number] / [id number] Lens Intraoc 21.5 - [id number] - [id number] Implanted:Qty: 1 on 02/03/2017 by Cheko Mcnamara MD at OR [facility] Left: Eye BAUSCH & LOMB 09/02/2021 [id number] / [id number] / [id number] Hemostatic Clip Res 235cm - [id number] Implanted:Qty: 4 on 06/13/2024 by José Miguel Sifuentes MD at ENDOSCOPY [facility] : ENDOSCOPY 10/12/2026 [id number] / / [id number] Hemostatic Clip Res 235cm - [id number] Implanted:Qty: 4 on 06/13/2024 by José Miguel Sifuentes MD at ENDOSCOPY [facility] [employer] : ENDOSCOPY 03/18/2027 [id number] / / [id number] documented as of this encounter Visit Diagnoses Diagnosis Hypertensive 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 (HCC)- Primary [place] on CPAP Obstructive sleep apnea (adult) (pediatric) Type 2 diabetes mellitus with stage 3b chronic kidney disease, with long-term current use of insulin ([facility]) Advanced care planning/counseling discussion- Primary Other specified counseling Hypertensive 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 (HCC) [place] on CPAP Obstructive sleep apnea (adult) (pediatric) Mixed dyslipidemia Mixed hyperlipidemia Type 2 diabetes mellitus with hemoglobin A1c goal of less than 8.0% ([facility]) Arreola's esophagus with high grade dysplasia [...] right eye and macular edema, unspecified whether marine oil terminal superintendent insulin use (HCC) Chronic obstructive pulmonary disease, [...] and were consensually agreed upon. Care Teams Synthetic Cloth Binding Cutter Relationship Specialty Start Date End Date Igor Mcconnell DO 293 [place] [address] PCP - General Internal Medicine 02/12/24 documented as of this encounter
--- OUTSIDE RECORDS SUMMARY | 2024-08-26 02:24 | External Medical Summary ---
Author Name Unknown Address Unknown Organization K01:[facility] [place] [facility] [address] [place] [address] Laboratory Report Ordering Provider Test Date Status ANGE GARCÍA 07/01/2024 14:59:13 Final Observation Date Value Abnormality Reference (Units ) Status Cortisol 07/01/2024 14:59:13 7.8 2.5-19.5 ( ug/dL) Final AM Reference Range: 4.8 - 19 .5 ug/dL
PM Reference Range: 2.5 - 11.9 ug/dL Performing Location [facility] [place] [facility] N [place] [address]
--- OUTSIDE RECORDS SUMMARY | 2024-08-26 02:25 | External Medical Summary | Summary of Care ---
Author Name Unknown Organization [facility] Address [address] [facility] [place] [address] Phone [phone] Care Team Providers Care Drum Cleaner Name Role Phone Raquel Mcconnell DO Primary Care Provider [phone] Reason for Visit * Reason Comments Medication Refill Encounter Details Date Type Department Care Team (Late st Contact Info) Description 06/27/2024 Refill [facility], [facility] [address] [facility] [place] [address] Shivani Magallon MD [address] [facility] [place] [address] Chronic heart failure with preserved ejection fraction [...] as of this encounter (statuses as of 06/27/2024) Medications Aspirin 81 MG Tablet Take 1 [...] hemoglobin A1c goal of less than 7.0% ([facility]) Use as directed every 14 days . 6 Each 3 04/24/20 22 Active Metamucil 28.3 % Oral Powder (Psyllium) Take by mouth daily. At least 1 hour after other medications Active OneTouch Verio In Vitro Strip (Glucose Blood)Indications: Uncontrolled type 2 diabetes mellitus with hyperglycemia ([facility]) USE TO TEST BLOOD GLUCOSE 3 TIMES [...] hemoglobin A1c goal of less than 7.0% ([facility]) INJECT UNDER THE SKIN 100 UNITS TWICE DAILY OR DIRECTED 90 mL 3 4 10:11 AM EDT 01/18/20 24 025 Active Additional Information Patient taking differently: 100 Units Subcutaneous BID(Non-Specified), Reported on 06/13/2024 Vitamin D 125 MCG (5000 UT) Oral Capsule Take 1 Capsule by mouth in the morning. Active Coenzyme Q10 200 MG Oral Capsule Take 1 Capsule by mouth at bedtime. Active Acetaminophen ER 650 MG Oral Tablet Extended Release (Tylenol ER) Take 1-2 Tablets by mouth every 8 hours as needed. (Max dose 3000 mg per day) Active Ozempic (2 MG/DOSE) 8 MG/3ML Subcutaneous Solution Pen-injector (Semaglutide (2 MG/DOSE))Indicatio ns:Type 2 diabetes mellitus with stage 4 chronic kidney disease, with long-term current use of insulin (HCC) Inject 2 mg under the skin once a week. 2 mL 11 4 1:20 PM EDT 02/16/20 24 Active Additional Information Patient taking differently:2 mg Subcutaneous QWEEK,, Reported on 06/07/2024 Clotrimazole-Betam ethasone 1-0.05 % External Cream (Lotrisone) [...] 38 UNITS WITH DINNER PLUS CORRECTION PER [facility] OR DIRECTED UP TO 120 UNITS PER DAY 120 mL 3 4 11:17 AM EST 03/21/20 Active DIURETIC TITRATION PLAN If no improvement on day 3, contact [facility] for possible home visit 1 Each 03/24/20 Active Evolocumab 140 MG/ML Subcutaneous Solution Auto-injector (Repatha SureClick)Indicati ons:Dyslipidemia, goal LDL below 100,Mixed dyslipidemia Inject 140 mg under the skin every 14 days. 6 mL 3 4 11:42 AM EST 03/24/20 Active Additional Information Patient taking differently:140 mg Subcutaneous [id number],Om Fridays, Reported on 06/07/2024 Unifine Pentips 31G X 8 MM (Insulin Pen Needle)Indications :Type 2 diabetes mellitus with hemoglobin A1c goal of less than 7.0% (HCC) USE TO INJECT INSULINS 5 TIMES DAILY 500 Each 3 4 7:46 AM EDT 04/18/20 24 Active Rzzvv-1-dabg Ethyl Esters 1 GM Oral Capsule (Lovaza) [...] directed 800 Tablet 3 06/27/20 24 Active Torsemide 20 MG Oral Tablet (Demadex)Indicatio ns:Chronic heart failure with preserved ejection fraction (HCC),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) Take 4 Tablets by mouth in the morning and 4 Tablets before bedtime. Or take as directed. 240 Tablet 5 4 4:03 PM EDT 01/22/20 24 024 Discontin ued(Refil l) documented as of this encounter (statuses as of 06/27/2024) Active Problems Patient Care Coordination No te Formatting of this note migh t be different from the original. Heart Failure Self-Management and Exacerbation Plan "RED FLAG" HF Symptoms: Leg Swelling Abdominal Bloating Increased dyspnea on exertion Increased shortness of breath at rest Orthopnea Remote Patient Monitoring Vendor: [facility] [...] as of this encounter (statuses as of 06/27/2024) Resolved Problems Problem Noted Date Diagnosed Date [...] serious comorbidity 07/11/2019 BMI 40.0-44.9, adult 04/18/2019 0809/ 024 Overview: Per Obesity protocol - ICD-10 [...] as of this encounter (statuses as of 06/27/2024) Immunizations Name Administration Dates Next Due COVID-19 mRNA, LNP-s, No Pre serve, 2-Dose Series (Moderna) 12/10/2020,11/12/2020 Hepatitis B, 20+ yrs 01/04/2018,08/03/2017,07/03 Pneumococcal Conjugate Vacci ne, 20-valent ([id number]) 06/09/2022 Pneumococcal Polysaccharide PPV23 (Pneumovax) 03/06/2020 RSV [...] encounter Miscellaneous Notes * Telephone Encounter - Raquel Mcconnell DO - 06/27/2024 2:35 PM ESTSigned Prescriptions: Disp Refills Torsemide 20 MG Oral Tablet (Demadex) 800 Ta*3 Sig: Take 4 Tablets by mouth 2 times a day. Or take as directed Authorizing Provider: RAQUEL MCCONNELL * Telephone Encounter - Raquel Mcconnell DO - 06/27/2024 2:35 PM ESTSigned Prescriptions: Disp Refills Torsemide 20 MG Oral Tablet (Demadex) 800 Ta*3 Sig: Take 4 Tablets by mouth 2 times a day. Or take as directed Authorizing Provider: RAQUEL MCCONNELL * Telephone Encounter - Raquel Mcconnell DO - 06/27/2024 2:35 PM ESTSigned Prescriptions: Disp Refills Torsemide 20 MG Oral Tablet (Demadex) 800 Ta*3 Sig: Take 4 Tablets by mouth 2 times a day. Or take as directed Authorizing Provider: RAQUEL MCCONNELL * Telephone Encounter - Raquel Mcconnell DO - 06/27/2024 1:07 PM ESTPending Prescriptions: Disp Refills Torsemide 20 MG Oral Tablet (Demadex) 240 Ta*5 Sig: Take 4 Tablets by mouth in the morning and 4 Tablets before bedtime. Or take as directed. * Telephone Encounter - Raquel Mcconnell DO - 06/27/2024 1:06 PM EST Confirm dose of Torsemide with the patient. * Telephone Encounter - Bárbara Emmanuel, WORM PICKER - 06/27/2024 11:36 AM EST Did you pend patient's preferred pharmacy and medication before forwarding?yes Pharmacy: [facility] Pending Prescriptions: Disp Refills Torsemide 20 MG Oral Tablet (Demadex) 240 Ta*5 Sig: Take 4 Tablets by mouth in the morning and 4 Tablets before bedtime. Or take as directed. Last Visit: Visit date not found (in office), 07/22/2023 (telemedicine) Next Visit: 06/28/2024 If no future appointments scheduled, and last appointment is greater than a year ago, please schedule patient for a follow-up appointment Last date the medication was ordered: 04/17/24 Is this request for a controlled substance?No Urine Drug Screen:No results found. However, due to the size of the patient record, not all encounters were searched. Please check Results Review for a complete set of results. Patient Phone Numbers Labs: Lab Results Component Value Date/Time CREAT 2.9 (H) 06/13/2024 09:48 AM CREAT 2.32 (A) 10/23/2023 12:00 AM CREAT 1.20 12/19/2020 12:22 PM CREAT 0.9 09/08/2017 08:00 AM POTASSIUM 4.2 06/13/2024 09:48 AM POTASSIUM 3.9 10/23/2023 12:00 AM POTASSIUM 3.8 12/19/2020 12:22 PM POTASSIUM 3.9 09/08/2017 08:00 AM TSH 1.37 08/24/2023 02:21 PM TSH 2.89 10/05/2018 12:00 AM LDL 126 05/13/2024 01:07 PM LDLCALC 110 (A) 12/21/2017 12:00 AM ALT 55 (H) 05/13/2024 01:07 PM ALT 226 (A) 01/09/2020 12:00 AM HGBA1C 8.5 (H) 02/12/2024 02:38 PM HGBA1C 7.6 10/21/2023 12:00 AM HGBA1C 11.6 (A) 03/08/2019 08:54 AM HGBA1C 9.7 12/01/2018 12:00 AM * Telephone Encounter - Stephanie Lopez [facility] - 06/27/2024 8:30 AM EST Pending Prescriptions: Disp Refills Torsemide 20 MG Oral Tablet (Demadex) 240 Ta*5 Sig: Take 4 Tablets by mouth in the morning and 4 Tablets before bedtime. Or take as directed. documented in this encounter Plan of Treatment Upcoming Encounters Date Type Department Care Team (Late st Contact Info) Description 06/28/2024 2:30 PM EST Home Visit [facility] [address] [facility] [place] [address] Love Stevens, ANNE MARIE 132 [place] [address] 07/01/2024 2:20 PM EST Office Visit Family Practice [address] [place] [address] [address] [place] [address] Raquel Mcconnell, [address] [place] [address] 08/08/2024 9:30 AM EST Nurse Only Ancillary Lazaro Hyde[address] [place] [address] Osito Nurse [address] [place] [address] 09/27/2024 11:30 AM EDT Telemedicine Cardiology [address] [address] [place], Pharmacist Cardiology [facility] [address] [facility] [place] [address] 10/27/2024 1:00 PM EDT Office Visit Sleep Disorders Ctr Maximiliano V[facility] [place] [address] [place] [phone] Lindsey Sheihk CRNP [address] [place] [address] 11/18/2024 2:00 PM EDT Office Visit Nephrology [address] [place] [phone] Luisa Ching PA-C [address] [place] [address] Health Maintenance Due Date Last Done Comments Alpha-1 Antitrypsin 1977 Cologuard 02/09/2004 Fecal Occult Blood Test 02/09/2004 Sigmoidoscopy 02/09/2004 COVID-19 Vaccine ( season) 2024 12/10/2020, 11/12/2020 Depression Screening 08/05/2024 08/05/2023 HbA1c 08/14/2024 02/12/2024, 10/04, 06/11/2023, Additional history exists Diabetic Foot Exam 10/19/2024 10/20/2023, 0 09/02/2022, 08/16/2021, Additional history exists GFR 12/12/2024 06/13/2024, 05/07, 05/13/2024, Additional history exists Hgb 05/13/2025 05/13/2024, 0912/2023, 02/24/2024, Additional history exists PTH 05/13/2025 05/13/2024, 02/05, 09/12/2020 Phosphate 05/13/2025 05/13/2024, 10/05, 10/23/2023, Additional history exists Albumin/Creatinine Ratio 05/18/202505/18/2 024, 05/13/2024, 06/11/2023, Additional history exists Diabetic Eye Exam 05/19/2025 05/19/2024, , 04/11/2024, Additional history exists Nephrology Referral 05/30/2025 05/30/2024 O2 ASSESSMENT COMPLETED IN PAST YEAR FOR COPD 06/13/2025 06/13/2024 Arreola's Esophagus Surveilance 06/16/2025 06/16/2022, 06/16/2022, 03/20/2022, Additional history exists DTap/Tdap Vaccines (2 - Td or Tdap) 12/29/2026 12/29/2016 Colonoscopy 06/13/2029 06/13/2024, 03/2024, 01/01/2018, Additional history exists Colorectal [...] this encounter Medical Devices Implanted Type Area Career Transition Specialist Device Identifier Shelf Expiration Date Model / Serial / Lot Lens Intraoc 21.0 - [id number] - [id number] Implanted:Qty: 1 on 01/22/2017 by Cheko Mcnamara MD at [facility] Right: Eye [employer] 08/05/2021 [id number] / [id number] / [id number] Lens Intraoc 21.5 - [id number] - [id number] Implanted:Qty: 1 on 02/03/2017 by Cheko Mcnamara MD at OR [facility] Left: Eye [employer]CH [employer]OM[employer] 09/02/2021 [id number] / [id number] / [id number] Hemostatic Clip Res 235cm - [id number] Implanted:Qty: 4 on 06/13/2024 by José Miguel Sifuentes MD at ENDOSCOPY [facility] 10/12/2026 [id number] / / [id number] Hemostatic Clip Res 235cm - [id number] Implanted:Qty: 4 on 06/13/2024 by José Miguel Sifuentes MD at ENDOSCOPY [facility] : ENDOSCOPY 03/18/2027 [id number] / / [id number] documented as of this encounter Visit Diagnoses Diagnosis Hypertensive 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 (HCC)- Primary CHAPINCITO on CPAP Obstructive sleep apnea (adult) (pediatric) Type 2 diabetes mellitus with stage 3b chronic kidney disease, with long-term current use of insulin ([facility]) Advanced care planning/counseling discussion- Primary Other specified counseling Hypertensive 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 (HCC) CHAPINCITO on CPAP Obstructive sleep apnea (adult) (pediatric) Mixed dyslipidemia Mixed hyperlipidemia Type 2 diabetes mellitus with hemoglobin A1c goal of less than 8.0% ([facility]) Arreola's esophagus with high grade dysplasia Arreola's esophagus Hypertensive 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 (HCC)- Primary Type 2 diabetes mellitus with stage 3b chronic kidney disease, with long-term current use of insulin ([facility]) Arreola's esophagus with high grade dysplasia Arreola's esophagus 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)- Primary Chronic obstructive pulmonary disease, unspecified COPD type ([facility]) Type 2 diabetes mellitus with stage 3b chronic kidney disease, with long-term current use of insulin ([facility]) Mixed dyslipidemia Mixed hyperlipidemia 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)- Primary BMI 40.0-44.9, adult ([facility]) Body Mass Index 40.0-44.9, adult 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 Care Teams Drum Cleaner Relationship Specialty Start Date End Date Raquel Mcconnell DO [address] [facility] [address] PCP - General Internal Medicine 02/12/24 documented as of this encounter
--- OUTSIDE RECORDS SUMMARY | 2024-08-26 02:25 | External Medical Summary | Summary of Care ---
Author Name Unknown Organization [facility] Address [address] [place] [place] [address] Phone [phone] Care Team Providers Care Insurance Salesperson Name Role Phone Igor Mcconnell DO Primary Care Provider [phone] Reason for Visit * Reason Comments Medication Refill Encounter Details Date Type Department Care Team (Late st Contact Info) Description 06/25/2024 Refill [facility], [facility] [address] [facility] [place] [address] Shivani Magallon MD [address] [facility] [place] [address] Chronic heart failure with preserved ejection fraction [...] goal of less than 7.0% ([facility]) Use as directed every 14 days . 6 Each 3 04/24/20 22 Active Metamucil 28.3 % Oral Powder (Psyllium) Take by mouth daily. At least 1 hour after other medications Active OneTouch Verio In Vitro Strip (Glucose Blood)Indications: Uncontrolled type 2 diabetes mellitus with hyperglycemia ([facility]) USE TO TEST BLOOD GLUCOSE 3 TIMES [...] goal of less than 7.0% ([facility]) INJECT UNDER THE SKIN 100 UNITS TWICE DAILY OR DIRECTED 90 mL 3 4 10:11 AM EDT 01/18/20 24 025 Active Additional Information Patient taking differently: 100 Units Subcutaneous BID(Non-Specified), Reported on 06/13/2024 Torsemide 20 MG Oral Tablet (Demadex)Indicatio ns:Chronic heart failure with preserved ejection fraction (HCC),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) Take 4 Tablets by mouth in the morning and 4 Tablets before bedtime. Or take as directed. 240 Tablet 5 4 4:03 PM EDT 01/22/20 24 Active Additional Information Patient taking differently:80 mg OralBID(Non-Specified), Morning and afternoon, Reported on 06/13/2024 Vitamin D 125 MCG [...] mL 11 4 1:20 PM EDT 02/16/20 Active Additional Information Patient taking differently:2 mg Subcutaneous QWEEK,, Reported on 06/07/2024 Clotrimazole-Betam ethasone 1-0.05 % External Cream (Lotrisone) Apply small amount of cream to scrotal area two times a day 90 g 1 4 5:44 PM EDT 03/02/20 Active Allopurinol 300 MG Oral Tablet (Zyloprim)Indicati ons:Gout, arthropathy Take 1 Tablet by mouth in the morning. 100 Tablet 3 4 7:16 AM EDT 03/17/20 Active NovoLOG FlexPen 100 UNIT/ML Subcutaneous Solution Pen-injectorIndica tions:Type 2 diabetes mellitus with hemoglobin A1c goal of less than 7.0% (HCC) INJECT UNDER THE SKIN 20 UNITS AT BREAKFAST, 26 UNITS AT LUNCH, 38 UNITS WITH DINNER PLUS CORRECTION PER [facility] OR DIRECTED UP TO 120 UNITS PER DAY 120 mL 3 4 7:52 AM EDT 03/21/20 Active DIURETIC TITRATION PLAN If no improvement on day 3, contact [facility] for possible home visit 1 Each 03/24/20 Active Evolocumab 140 MG/ML Subcutaneous Solution Auto-injector (Repatha SureClick)Indicati ons:Dyslipidemia, goal LDL below 100,Mixed dyslipidemia Inject 140 mg under the skin every 14 days. 6 mL 3 4 11:42 AM EST 03/24/20 Active Additional Information Patient taking differently:140 mg Subcutaneous [id number],Om Fridays, Reported on 06/07/2024 Unifine Pentips 31G X 8 MM (Insulin Pen Needle)Indications :Type 2 diabetes mellitus with hemoglobin A1c goal of less than 7.0% (HCC) USE TO INJECT INSULINS 5 TIMES DAILY 500 Each 3 4 7:46 AM EDT 04/18/20 24 Active Verga-6-nwon Ethyl Esters 1 GM Oral Capsule (Lovaza) [...] 4 1:13 PM EST 06/21/20 24 Active documented as of this encounter (statuses as of 06/27/2024) Active Problems Patient Care Coordination No te Formatting of this note migh t be different from the original. Heart Failure Self-Management and Exacerbation Plan "RED FLAG" HF Symptoms: Leg Swelling Abdominal Bloating Increased dyspnea on exertion Increased shortness of breath at rest Orthopnea Remote Patient Monitoring Vendor: [facility] [...] in the Comments) Remote Patient Monitoring Vendor: [email or web address] Device(s): Connected Scale Self - Management Plan [...] has been better controlled recently. Monitor using CareParentyle Cindy. Assessment & Plan (12/19/2022 11:13 AM [...] yrs 01/04/2018,08/03/2017,07/03 Pneumococcal Conjugate Vacci ne, 20-valent ([id number]) 06/09/2022 Pneumococcal Polysaccharide PPV23 (Pneumovax) 03/06/2020 RSV [...] encounter Miscellaneous Notes * Telephone Encounter - Verito Nguyen ink maker - 06/27/2024 6:15 AM EST No prescriptions requested or ordered in this encounter documented in this encounter Plan of Treatment Upcoming Encounters Date Type Department Care Team (Late st Contact Info) Description 06/28/2024 2:30 PM EST Home Visit [facility] [address] [place] [address] Love Stevens, RN [address] [place] [address] 07/01/2024 2:20 PM EST Office Visit Family Practice [address], [place] [address] [place] [address] Igor Mcconnell, [address] [place] [address] 08/08/2024 9:30 AM EST Nurse Only Ancillary [address] [place] [address] [place], Nurse [address] [place] [address] 09/27/2024 11:30 AM EDT Telemedicine Cardiology [facility], [place] [address] [place], [place] [phone] [place] [address], Pharmacist Cardiology [place] [address] [address] [place], [place] [phone] 10/27/2024 1:00 PM EDT Office Visit Sleep Disorders Ctr [facility] 132 [facility] [phone] Lindsey Sheikh CRNP 132 [place] [address] 11/18/2024 2:00 PM EDT Office Visit Nephrology [address] [place] [address] Zemaitis, Luisa Guzman PA-C [address] [place] [address] Health Maintenance Due Date Last Done Comments Alpha-1 Antitrypsin 1977 Cologuard 02/09/2004 Fecal Occult Blood Test 02/09/2004 Sigmoidoscopy 02/09/2004 COVID-19 Vaccine ( season) 2024 12/10/2020, 11/12/2020 Depression Screening 08/05/2024 08/05/2023 HbA1c 08/14/2024 02/12/2024, 10/04, 06/11/2023, Additional history exists Diabetic Foot Exam 10/19/2024 10/20/2023, 0 09/02/2022, 08/16/2021, Additional history exists GFR 12/12/2024 06/13/2024, 05/07, 05/13/2024, Additional history exists Hgb 05/13/2025 05/13/2024, 090 12/2023, 02/24/2024, Additional history exists PTH 05/13/2025 05/13/2024, 08/07/2021, 09/12/2020 Phosphate 05/13/2025 05/13/2024, 10/05, 10/23/2023, Additional [...] or Tdap) 12/29/2026 12/29/2016 Colonoscopy 06/13/2029 06/13/2024, 1203/2024, 01/01/2018, Additional history exists Colorectal [...] this encounter Medical Devices Implanted Type Area Environmental Communications Specialist Device Identifier Shelf Expiration Date Model / Serial / Lot Lens Intraoc 21.0 - [id number] - [id number] Implanted:Qty: 1 on 01/22/2017 by Cheko Mcnamara MD at OR [facility] Right: Eye [employer]OM[employer] 08/05/2021 [id number] / [id number] / [id number] Lens Intraoc 21.5 - [id number] - [id number] Implanted:Qty: 1 on 02/03/2017 by Cheko Mcnamara MD at OR [facility] Left: Eye BAUSCH [employer] LOMB 09/02/2021 [id number] / [id number] / [id number] Hemostatic Clip Res 235cm - [id number] Implanted:Qty: 4 on 06/13/2024 by José Miguel Sifuentes MD at ENDOSCOPY [facility] : ENDOSCOPY 10/12/2026 [id number] / / [id number] Hemostatic Clip Res 235cm - [id number] Implanted:Qty: 4 on 06/13/2024 by José Miguel Sifuentes MD at ENDOSCOPY [facility] : [facility]OSCOPY 03/18/2027 [id number] / / [id number] documented as of this encounter Visit Diagnoses Diagnosis Hypertensive 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 (HCC)- Primary CHAPINCITO on CPAP Obstructive sleep apnea (adult) (pediatric) Type 2 diabetes mellitus with stage 3b chronic kidney disease, with long-term current use of insulin ([facility]) Advanced care planning/counseling discussion- Primary Other specified counseling 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 Care Teams Insurance Salesperson Relationship Specialty Start Date End Date Igor Mcconnell DO [address] [place] [address] PCP - General Internal Medicine 02/12/24 documented as of this encounter
--- OUTSIDE RECORDS SUMMARY | 2024-08-26 02:25 | External Medical Summary | Summary of Care ---
Author Name Unknown Organization [facility] Address [address] [place] [address] Phone [phone] Care Team Providers Care Prn Occupational Therapist Name Role Phone Raquel Mcconnell DO Primary Care Provider [phone] Reason for Visit * Reason Comments Medication Refill Encounter Details Date Type Department Care Team (Late st Contact Info) Description 06/27/2024 Refill Family Practice [address], [place] [address] [place] [address] Raquel Mcconnell DO [address] [place] [address] Type 2 diabetes mellitus with stage 4 chronic kidney disease, with long-term current use of insulin ([facility]) Allergies Active Allergy Reactions Criticality Noted Date [...] UNITS WITH DINNER PLUS CORRECTION PER [facility] OR DIRECTED UP TO 120 UNITS PER DAY 120 mL 3 4 11:17 AM EST 03/21/20 Active DIURETIC TITRATION PLAN If no improvement on day 3, contact [facility] for possible home visit 1 Each 03/24/20 Active Evolocumab 140 MG/ML Subcutaneous Solution Auto-injector (Repatha SureClick)Indicati ons:Dyslipidemia, goal LDL below 100,Mixed dyslipidemia Inject 140 mg under the skin every 14 days. 6 mL 3 4 11:42 AM EST 03/24/20 Active Additional Information Patient taking differently:140 mg Subcutaneous V1CTRCC,Om Fridays, Reported on 06/07/2024 Unifine Pentips 31G X 8 MM (Insulin Pen Needle)Indications :Type 2 diabetes mellitus with hemoglobin A1c goal of less than 7.0% (HCC) USE TO INJECT INSULINS 5 TIMES DAILY 500 Each 3 4 7:46 AM EDT 04/18/20 24 Active Tkeuw-1-udxl Ethyl Esters 1 GM Oral Capsule (Lovaza) [...] directed 800 Tablet 3 06/27/20 24 Active Ozempic (2 MG/DOSE) 8 MG/3ML Subcutaneous Solution Pen-injector (Semaglutide (2 MG/DOSE))Indicatio ns:Type 2 diabetes mellitus with stage 4 chronic kidney disease, with long-term current use of insulin (HCC) Inject 2 mg under the skin once a week. 2 mL 11 4 1:20 PM EDT 02/16/20 24 024 Discontin ued(Refil l) documented as of this encounter (statuses as of 06/28/2024) Active Problems Patient Care Coordination No te Formatting of this note migh t be different from the original. Heart Failure Self-Management and Exacerbation Plan "RED FLAG" HF Symptoms: Leg Swelling Abdominal Bloating Increased dyspnea on exertion Increased shortness of breath at rest Orthopnea Remote Patient Monitoring Vendor: [facility] Device(s): Connected Scale Self - Management Plan [...] the Comments) Remote Patient Monitoring Vendor: [facility] Device(s): Connected Scale Self - Management Plan [...] has been better controlled recently. Monitor using HipSnipstyle Cindy. Assessment & Plan (12/19/2022 11:13 AM [...] yrs 01/04/2018,08/03/2017,07/03 Pneumococcal Conjugate Vacci ne, 20-valent ([id number]) 06/09/2022 Pneumococcal Polysaccharide PPV23 (Pneumovax) 03/06/2020 RSV [...] No 05/02/2024 Does the household have a presbyterian kaseman hospitallar source of income? (Household - for [...] encounter Miscellaneous Notes * Telephone Encounter - Candelario Agustin RPh - 06/28/2024 12:30 PM ESTSigned Prescriptions: Disp Refills Ozempic (2 MG/DOSE) 8 MG/3ML Subcutaneous *9 mL 1 Sig: Inject 2 mg under the skin once a week. Authorizing Provider: RAQUEL MCCONNELL User: CANDELARIO AGUSTIN * Telephone Encounter - Candelario Agustin RPh - 06/28/2024 12:26 PM EST RX sent on 02/15 for 2 ml with 11 refills. Package comes in qty 3 ml for 30 days. RX resent to pharmacy for 90 day supply with 1 refill. Thank you, Candelario Agustin PharmD Clinical Pharmacist [facility] [phone] 06/28/2024, 12:29 PM documented in this encounter Plan of Treatment Upcoming Encounters Date Type Department Care Team (Late st Contact Info) Description 06/28/2024 2:30 PM EST [facility] Visit [facility] [place], [facility] 132 [facility] [place] [address] Love Stevens, RN 132 [facility] [place] [address] 07/01/2024 2:20 PM EST Office Visit Family Practice [address] [place] [address] 293 [place] [address] Raquel Mcconnell DO [address] [place] [address] 07/26/2024 8:30 AM EST [facility] Visit [facility] [place], [facility] 132 [facility] [place] [address] Love Stevens, ANNE MARIE 132 [place] [address] 08/08/2024 9:30 AM EST Nurse Only Ancillary [address] [place] [address] [place], Nurse [address] [place] [address] 09/27/2024 11:30 AM EDT Telemedicine Cardiology [facility], [place] [address] [place] [address] [facility], Pharmacist Cardiology [place] [address] [place] [address] 10/27/2024 1:00 PM EDT Office Visit [facility] [place] [address] [place] [phone] Lindsey Sheikh CRNP [address] [place] [address] 11/18/2024 2:00 PM EDT Office Visit Nephrology [address] [place] [address] ZeLuisa reyes PA-C [address] [place] [address] Health Maintenance Due Date Last Done Comments [...] this encounter Medical Devices Implanted Type Area Tin Whiz Machine Operator Device Identifier Shelf Expiration Date Model / Serial / Lot Lens Intraoc 21.0 - [id number] - [id number] Implanted:Qty: 1 on 01/22/2017 by Cheko Mcnamara MD at OR [facility] Right: Eye BAUSCH [employer] LOMB 08/05/2021 [id number] / [id number] / [id number] Lens Intraoc 21.5 - [id number] - [id number] Implanted:Qty: 1 on 02/03/2017 by Cheko Mcnamara MD at OR [facility] Left: Eye BAUSCH & LOMB 09/02/2021 [id number] / [id number] / [id number] Hemostatic Clip Res 235cm - [id number] Implanted:Qty: 4 on 06/13/2024 by José Miguel Sifuentes MD at ENDOSCOPY [facility] : ENDOSCOPY 10/12/2026 [id number] / / [id number] Hemostatic Clip Res 235cm - [id number] Implanted:Qty: 4 on 06/13/2024 by José Miguel Sifuentes MD at ENDOSCOPY [facility] [place] [employer] : ENDOSCOPY 03/18/2027 [id number] / / [id number] documented as of this encounter Visit Diagnoses Diagnosis Hypertensive 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 (HCC)- Primary [place] on CPAP Obstructive sleep apnea (adult) (pediatric) Type 2 diabetes mellitus with stage 3b chronic kidney disease, with long-term current use of insulin ([facility]) Advanced care planning/counseling discussion- Primary Other specified [...] kidney disease (HCC)- Primary BMI 40.0-44.9, adult ([facility]) Body Mass Index 40.0-44.9, adult 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 Care Teams Prn Occupational Therapist Relationship Specialty Start Date End Date Raquel Mcconnell DO [address] [facility], [place] [address] PCP - General Internal Medicine 02/12/24 documented as of this encounter
--- OUTSIDE RECORDS SUMMARY | 2024-08-26 02:25 | External Medical Summary | Summary of Care ---
Author Name Unknown Organization [facility] Address [address] [place] [address] Phone [phone] Care Team Providers Care Customer Support Specialist Name Role Phone Igor Mcconnell DO Primary Care Provider [phone] Reason for Visit * Reason Onset Date Comments Medication Question 06/22/2024 Medication Encounter Details Date Type Department Care Team (Late st Contact Info) Description 06/22/2024 Telephone Family Practice 65 [facility], [place] [address] [place] [address] Igor Mcconnell DO [address] [place] [address] Medication Question (Medication) Allergies Active Allergy Reactions Criticality Noted Date Comments Metolazone Renal complications 11/10/2023 Note prior DTP with metolazone resulted in acute renal failure Other Allergy (See Comments) Rash Low 10/13/2022 1+ cocamidopropyl betaine Sglt2 Inhibitors Other (Please comment) High 09/04/2020 Genital infection Sulfa Antibiotics Rash 10/15/2016 documented as of this encounter (statuses as of 06/22/2024) Medications Aspirin 81 MG Tablet Take 1 [...] If no improvement on day 3, contact [facility] for possible home visit 1 Each 03/24/20 Active Evolocumab 140 MG/ML Subcutaneous Solution Auto-injector (Repatha SureClick)Indicati ons:Dyslipidemia, goal LDL below 100,Mixed dyslipidemia Inject 140 mg under the skin every 14 days. 6 mL 3 4 11:42 AM EST 03/24/20 Active Additional Information Patient taking differently:140 mg Subcutaneous [id number],Om Fridays, Reported on 06/07/2024 Unifine Pentips 31G X 8 MM (Insulin Pen Needle)Indications :Type 2 diabetes mellitus with hemoglobin A1c goal of less than 7.0% (HCC) USE TO INJECT INSULINS 5 TIMES DAILY 500 Each 3 4 7:46 AM EDT 04/18/20 24 Active Rrjrf-4-dndm Ethyl Esters 1 GM Oral Capsule (Lovaza) [...] as of this encounter (statuses as of 06/22/2024) Active Problems Patient Care Coordination No te Formatting of this note migh t be different from the original. Heart Failure Self-Management and Exacerbation Plan "RED FLAG" HF Symptoms: Leg Swelling Abdominal Bloating Increased dyspnea on exertion Increased shortness of breath at rest Orthopnea Remote Patient Monitoring Vendor: [facility] Device(s): Connected Scale Self - [...] in the Comments) Remote Patient Monitoring Vendor: [employer] Device(s): Connected Scale Self - Management Plan [...] as of this encounter (statuses as of 06/22/2024) Resolved Problems Problem Noted Date Diagnosed Date [...] has been better controlled recently. Monitor using OR Productivityyle Cindy. Assessment & Plan (12/19/2022 11:13 AM [...] as of this encounter (statuses as of 06/22/2024) Immunizations Name Administration Dates Next Due COVID-19 mRNA, LNP-s, No Pre serve, 2-Dose Series (Moderna) 12/10/2020,11/12/2020 Hepatitis B, 20+ yrs 01/04/2018,08/03/2017,07/03 Pneumococcal Conjugate Vacci ne, 20-valent (Stgzfuv58) 06/09/2022 Pneumococcal Polysaccharide PPV23 (Pneumovax) 03/06/2020 RSV [...] encounter Miscellaneous Notes * Telephone Encounter - Bradley Stewart RPh - 06/22/2024 3:37 PM EST Spoke to patient. Answered all questions about letter, insurance coverage, costs, co-pays etc. * Telephone Encounter - Hermila Jung OSA - 06/22/2024 11:18 AM EST Received letter from [facility] that his insulin is not going to be covered Please advise documented in this encounter Plan of Treatment Upcoming Encounters Date Type Department Care Team (Late st Contact Info) Description 06/28/2024 2:30 PM EST [facility] Visit [facility] [place] [place] [address] Love Stevens, ANNE MARIE [address] [place] [address] 07/01/2024 2:20 PM EST Office Visit Family Practice [address], [place] 293 [place] [phone] Igor Mcconnell, 293 [facility] [place] [address] 08/08/2024 9:30 AM EST Nurse Only Ancillary [address] [place] [address] [place], Nurse [address] [place] [address] 09/27/2024 11:30 AM EDT Telemedicine Cardiology [facility], [place] [address] [place] [address] [place] [address], Pharmacist Cardiology [place] [address] [place] [address] 10/27/2024 1:00 PM EDT Office Visit Sleep Disorders Ctr [facility] 132 [place] [phone] Lindsey Sheikh CRNP [facility] [address] 11/18/2024 2:00 PM EDT Office Visit Nephrology [address] [place] [address] ZemaLuisa leslie PA-C [address] [place] [address] Health Maintenance Due Date Last Done Comments Alpha-1 Antitrypsin 1977 Cologuard 02/09/2004 Fecal Occult Blood Test 02/09/2004 Sigmoidoscopy 02/09/2004 COVID-19 Vaccine ( season) 2024 12/10/2020, 11/12/2020 Depression Screening 08/05/2024 08/05/2023 HbA1c 08/14/2024 02/12/2024, 04/1 01/2024, 06/11/2023, Additional history exists Diabetic Foot Exam 10/19/2024 10/20/2023, 0 09/02/2022, 08/16/2021, Additional history exists GFR 12/12/2024 06/13/2024, 05/07, 05/13/2024, Additional history exists Hgb 05/13/2025 05/13/2024, 09/0 12/2023, 02/24/2024, Additional history exists PTH 05/13/2025 05/13/2024, 08/3 07/2021, 09/12/2020 Phosphate 05/13/2025 05/13/2024, 2 08/2023, [...] this encounter Medical Devices Implanted Type Area Filter Plant Operator Device Identifier Shelf Expiration Date Model / Serial / Lot Lens Intraoc 21.0 - [id number] - [id number] Implanted:Qty: 1 on 01/22/2017 by Cheko Mcnamara MD at OR [facility] Right: Eye BAUSCH & LOMB 08/05/2021 [id number] / [id number] / [id number] Lens Intraoc 21.5 - [id number] - [id number] Implanted:Qty: 1 on 02/03/2017 by Cheko Mcnamara MD at OR [facility] Left: Eye BAUSCH & LOMB 09/02/2021 [id number] / [id number] / [id number] Hemostatic Clip Res 235cm - [id number] Implanted:Qty: 4 on 06/13/2024 by José Miguel Sifuentes MD at ENDOSCOPY [facility] [employer] : ENDOSCOPY 10/12/2026 [id number] / / [id number] Hemostatic Clip Res 235cm - [id number] Implanted:Qty: 4 on 06/13/2024 by José Miguel Sifuentes MD at ENDOSCOPY [facility] [employer] : ENDOSCOPY 03/18/2027 [id number] / / [id number] documented as of this encounter Advance Directives [...] and were consensually agreed upon. Care Teams Customer Support Specialist Relationship Specialty Start Date End Date Igor Mcconnell DO [address] [place] [address] PCP - General Internal Medicine 02/12/24 documented as of this encounter
--- OUTSIDE RECORDS SUMMARY | 2024-08-26 02:25 | External Medical Summary | Summary of Care ---
Author Name Unknown Organization [facility] Address [address] [place] [facility] [place] [address] Phone [phone] Care Team Providers Care Store Facility Technician Name Role Phone Igor Mcconnell DO Primary Care Provider Reason for Visit * Reason Comments Medication Refill Encounter Details Date Type Department Care Team (Late st Contact Info) Description 06/27/2024 Refill [facility], [facility] 132 [facility] [place] [address] Shivani Magallon MD 200 [facility] [place] [address] Chronic heart failure with preserved ejection fraction [...] goal of less than 7.0% ([facility]) Use as directed every 14 days . 6 Each 3 04/24/20 22 Active Metamucil 28.3 % Oral Powder (Psyllium) Take by mouth daily. At least 1 hour after other medications Active OneTouch Verio In Vitro Strip (Glucose Blood)Indications: Uncontrolled type 2 diabetes mellitus with hyperglycemia ([facility]) USE TO TEST BLOOD GLUCOSE 3 TIMES [...] goal of less than 7.0% ([facility]) INJECT UNDER THE SKIN 100 UNITS TWICE [...] improvement on day 3, contact [facility] for possible home visit 1 Each 03/24/20 Active Evolocumab 140 MG/ML Subcutaneous Solution Auto-injector (Repatha SureClick)Indicati ons:Dyslipidemia, goal LDL below 100,Mixed dyslipidemia Inject 140 mg under the skin every 14 days. 6 mL 3 4 11:42 AM EST 03/24/20 Active Additional Information Patient taking differently:140 mg Subcutaneous K4PUDDQ,Om Fridays, Reported on 06/07/2024 Unifine Pentips 31G X 8 MM (Insulin Pen Needle)Indications :Type 2 diabetes mellitus with hemoglobin A1c goal of less than 7.0% (HCC) USE TO INJECT INSULINS 5 TIMES DAILY 500 Each 3 4 7:46 AM EDT 04/18/20 24 Active Fcqbk-1-bxig Ethyl Esters 1 GM Oral Capsule (Lovaza) [...] at rest Orthopnea Remote Patient Monitoring Vendor: [facility] [...] in the Comments) Remote Patient Monitoring Vendor: [employer] Device(s): Connected Scale Self - Management Plan [...] has been better controlled recently. Monitor using WiQuest Communicationsyle Cindy. Assessment & Plan (12/19/2022 11:13 AM [...] yrs 01/04/2018,08/03/2017,07/03 Pneumococcal Conjugate Vacci ne, 20-valent (Jtnccvs02) 06/09/2022 Pneumococcal Polysaccharide PPV23 (Pneumovax) 03/06/2020 RSV [...] Notes * Telephone Encounter - Verito Nguyen incoming inspector - 06/27/2024 6:15 AM EST No prescriptions requested or ordered in this encounter documented in this encounter Plan of Treatment Upcoming Encounters Date Type Department Care Team (Late st Contact Info) Description 06/28/2024 2:30 PM EST Home Visit [facility] 132 [place] [address] Love Stevens, RN 132 [place] [address] 07/01/2024 2:20 PM EST Office Visit Family Practice [address], [place] [address] [place] [address] Igor Mcconnell, 293 [place] [address] 08/08/2024 9:30 AM EST Nurse Only Ancillary [address] [place] [address] [place], Nurse [address] [place] [address] 09/27/2024 11:30 AM EDT Telemedicine Cardiology [facility], [place] [address] [place], [place] [phone] [place] [address], Pharmacist Cardiology [place] [address] [address] [place], [place] [phone] 10/27/2024 1:00 PM EDT Office Visit Sleep Disorders Ctr [facility] 132 [place] [phone] Lindsey Sheikh CRNP 132 [place] [address] 11/18/2024 2:00 PM EDT Office Visit Nephrology [address] [place] [address] Zemaitis, Luisa Guzman PA-C [address] [place] [address] Health Maintenance Due Date Last Done Comments [...] encounter Medical Devices Implanted Type Area Social Worker Masters Device Identifier Shelf Expiration Date Model / Serial / Lot Lens Intraoc 21.0 - [id number] - [id number] Implanted:Qty: 1 on 01/22/2017 by Cheko Mcnamara MD at OR [facility] Right: Eye BAUSCH & LOMB 08/05/2021 [id number] / [id number] / [id number] Lens Intraoc 21.5 - [id number] - [id number] Implanted:Qty: 1 on 02/03/2017 by Cheko Mcnamara MD at OR [facility] Left: Eye BAUSCH & LOMB 09/02/2021 [id number] / [id number] / [id number] Hemostatic Clip Res 235cm - [id number] Implanted:Qty: 4 on 06/13/2024 by José Miguel Sifuentes MD at ENDOSCOPY [facility] [employer] : ENDOSCOPY 10/12/2026 [id number] / / [id number] Hemostatic Clip Res 235cm - [id number] Implanted:Qty: 4 on 06/13/2024 by José Miguel Sifuentes MD at ENDOSCOPY [facility] [employer] : ENDOSCOPY 03/18/2027 [id number] / / [id number] documented as of this encounter Visit Diagnoses [...] right eye and macular edema, unspecified whether psych coordinator insulin use (HCC) Chronic obstructive pulmonary [...] and were consensually agreed upon. Care Teams Store Facility Technician Relationship Specialty Start Date End Date Igor Mcconnell DO [address] [place] [address] PCP - General Internal Medicine 02/12/24 documented as of this encounter
--- OUTSIDE RECORDS SUMMARY | 2024-08-26 02:25 | External Medical Summary | Summary of Care ---
Author Name Unknown Organization [facility] Address [address] [place] [address] Phone [phone] Care Team Providers Care Body Wirer Name Role Phone Igor Mcconnell DO Primary Care Provider [phone] Reason for Visit * Reason Comments Dosage Adjustment Via Phone (anticoag Cl inic) Hypercholesterolemia Encounter Details Date Type Department Care Team (Late st Contact Info) Description 06/21/2024 2:30 PM EST Telemedicine Cardiology [facility], [place] [address], [place] [phone] [place] [address], Pharmacist Cardiology [facility] [address] [place], [place] [phone] Dyslipidemia, goal LDL below 100*; Abnormal LFTs Allergies Active Allergy Reactions Criticality Noted Date Comments Metolazone Renal complications 11/10/2023 Note prior DTP with metolazone resulted in acute renal failure Other Allergy (See Comments) Rash Low 10/13/2022 1+ cocamidopropyl betaine Sglt2 Inhibitors Other (Please comment) High 09/04/2020 Genital infection Sulfa Antibiotics Rash 10/15/2016 documented as of this encounter (statuses as of 06/21/2024) Medications Aspirin 81 MG Tablet Take 1 [...] 38 UNITS WITH DINNER PLUS CORRECTION PER [facility] OR DIRECTED UP TO 120 UNITS PER DAY 120 mL 3 4 7:52 AM EDT 03/21/20 Active DIURETIC TITRATION PLAN If no improvement on day 3, contact [facility] for possible home visit 1 Each 03/24/20 Active Evolocumab 140 MG/ML Subcutaneous Solution Auto-injector (Repatha SureClick)Indicati ons:Dyslipidemia, goal LDL below 100,Mixed dyslipidemia Inject 140 mg under the skin every 14 days. 6 mL 3 4 11:42 AM EST 03/24/20 Active Additional Information Patient taking differently:140 mg Subcutaneous [id number],Om Fridays, Reported on 06/07/2024 Unifine Pentips 31G X 8 MM (Insulin Pen Needle)Indications :Type 2 diabetes mellitus with hemoglobin A1c goal of less than 7.0% (HCC) USE TO INJECT INSULINS 5 TIMES DAILY 500 Each 3 4 7:46 AM EDT 04/18/20 24 Active Rgafa-2-[id number] Ethyl Esters 1 GM Oral Capsule (Lovaza) [...] Tablet by mouth daily. 30 Tablet 11 06/21/20 24 Active documented as of this encounter (statuses as of 06/21/2024) Active Problems Patient Care Coordination No te [...] in the Comments) Remote Patient Monitoring Vendor: [employer] Medical Device(s): Connected Scale Self - Management [...] interval not displayed. Medication Regimen: o Beta Rithcie Therapy: Carvedilol o ARIANNA Inhibitor/ARB Therapy: Other: [...] as of this encounter (statuses as of 06/21/2024) Resolved Problems Problem Noted Date Diagnosed Date [...] has been better controlled recently. Monitor using [employer] C[employer]. Assessment & Plan (12/19/2022 11:13 AM [...] as of this encounter (statuses as of 06/21/2024) Immunizations Name Administration Dates Next Due COVID-19 mRNA, LNP-s, No Pre serve, 2-Dose Series (Moderna) 12/10/2020,11/12/2020 Hepatitis B, 20+ yrs 01/04/2018,08/03/2017,07/03 Pneumococcal Conjugate Vacci ne, 20-valent ([id number]) 06/09/2022 Pneumococcal Polysaccharide PPV23 (Pneumovax) 03/06/2020 RSV [...] of this encounter Progress Notes * Garima Prado, [facility] - 06/21/2024 2:27 PM EST PHARMACY CHRONIC DISEASE MANAGEMENT - HYPERLIPIDEMIA After connecting to the patient via telephone, the patient was identified by name and date of . Patient was then informed that this was a telephone call only visit. The patient agreed to participate. Visit Disposition: Routine follow-up Total call duration was 5 minutes. HPI: Tony Delong is a 64 year old year old male. Referred for HLD management by Gilbert Hunter MD. History of statin intolerance: yes Statin names, doses, frequency tried and outcome: Atorvastatin 40 mg daily, 80 mg daily Rosuvastatin 5 mg daily-- elevated LFTs Any contraindications to HLD medications: none, mild LFT elevations- monitor Current medications which can be contributing: diuretics and beta blockers Family history of HLD: unknown Current genetic disorder diagnosis: no Smoking history: Former, per chart review Alcohol use: No Diagnosis of diabetes: yes Clinical ASCVD/Risk Score: The ASCVD Risk score (Chris ROWE, et al., 2019) failed to calculate for the following reasons: Risk score cannot be calculated because patient has a medical history suggesting prior/existing ASCVD Diet review: Consume a dietary pattern that emphasized intake of vegetables, fruits, and whole-grains; includes low-fat dairy products, poultry, fish, legumes, non- tropical vegetable oils, and nuts; and limit intake of sweets, sugar-sweetened beverages, cheeses, fried foods and red meats. Exercise review: Engage in aerobic physical activity at least 3 to 4 sessions weekly, lasting on average 40 minutes per session and involving mtaaxryb-ol-mzulleud intensity physical activity. Patient Active Problem List Diagnosis Type 2 [...] disease, with long-term current use of insulin(HCC) Review of patient's allergies indicates: Allergen Reactions [...] 12:00 AM LDL CHOLESTEROL (CALCULATED) - [facility] 126 05/13/2024 01:07 PM LDL CHOLESTEROL (CALCULATED) - [facility] 83 02/12/2024 02:38 PM LDL CHOLESTEROL (CALCULATED) - [facility] 152 (H) 01/05/2023 08:27 AM LDL CHOLESTEROL (DIRECT MEASURE) - [facility] 89 07/10/2023 10:57 AM LDL CHOLESTEROL (DIRECT MEASURE) - [facility] 76 04/01/2023 03:31 PM LDL CHOLESTEROL (DIRECT MEASURE) - [facility] 264 (H) 01/25/2021 11:58 AM Lab Results Component Value Date/Time AST - [facility] 60 (H) 05/13/2024 01:07 PM AST - [facility] 59 (H) 04/13/2024 10:22 AM AST - [facility] 75 (H) 04/01/2024 02:26 PM Lab Results Component Value Date/Time ALT - [facility] 55 (H) 05/13/2024 01:07 PM ALT - [facility] 48 04/13/2024 10:22 AM ALT - [facility] 61 (H) 04/01/2024 02:26 PM ALT-OUTSIDE LAB 226 (A) 01/09/2020 12:00 AM ALT-OUTSIDE LAB 250 (A) 05/12/2019 12:00 AM ALT-OUTSIDE LAB 82 (A) 12/01/2018 12:00 AM No results found for: "CK" Lab Results Component Value Date/Time 25-HYDROXY VITAMIN D - [facility] 69 05/13/2024 01:07 PM Lab Results Component Value Date/Time TSH - [facility] 1.37 08/24/2023 02:21 PM TSH - OUTSIDE LAB 2.89 10/05/2018 12:00 AM No results found for: "T4" Lab Results Component Value Date/Time MICROALBUMIN RATIO-OUTSIDE LAB 1,457 (H) 01/09/2020 12:00 AM MICROALBUMIN RATIO-OUTSIDE LAB 21.1 12/11/2016 12:00 AM No components found for: "[id number]" Latest Reference Range & Units 03/11/24 08:04 04/01/24 14:26 04/13/24 10:22 05/13/24 13:07 Albumin 3.8 - 5.0 g/dL 3.8 4.3 4.3 4.2 AST 10 - 50 U/L 40 75 (H) 59 (H) 60 (H) ALT 10 - 50 U/L 49 61 (H) 48 55 (H) Alkaline Phosphatase 35 - 130 U/L 117 112 131 (H) 128 Bilirubin, Total <=1.2 mg/dL 0.5 1.0 0.7 0.7 Bilirubin, Direct 0.0 - 0.3 mg/dL <0.2 0.3 0.3 0.3 Current Hyperlipidemia Medication(s): Repatha 140 mg SQ every 2 weeks Assessment & Plan: Uncontrolled Hyperlipidemia - LDL target <55 per ADA (at least <70) - Start pravastatin 20 mg daily - LFTs in 3 weeks, lipid panel in 12 weeks Reviewed most recent lipid panel results with patient; discussed each component of lipid panel and optimal levels of such components. LDL elevated at 126. Regarding medications, patient has history of mild LFT elevations for which atorvastatin was stopped in the past (2019). More recently, patient was started on rosuvastatin 5 mg daily (03/24/24), afterwhich LFTs bumped up again and rosuvastatin was stopped (04/04/24)- see LFT trend above. Of note, patient does also have NAFLD with cirrhosis which may be contributing. Patient confirms utmost compliance with Repatha. Given LFT elevations, statins and Zetia have been avoided for this patient. Additionally, patient has gout with elevated UA (9.9) and recent gout exacerbation which brought patient to tears, so wouldalso avoid bempedoic acid. [facility]. [facility] who noted patient's LFT elevation to be insignificant and likely not statin induced. Dr. Diego recommended rechallenging with pravastatin 20 mgdaily and rechecking LFTs within 2-4 weeks of starting pravastatin (TE 05/31/24). PCP Dr. Mcconnell agreeable to plan as well. Discussed this with patient and he is agreeable. Will start pravastatin 20 mg daily with LFT check in 3 weeks. Coronary Artery Calcifications - Per CT Chest 11/2022 and CXR 07/2019 Uncontrolled Type 2 Diabetes - HbA1c goal <7% - Follows with MTM [facility] Nonalcoholic Fatty Liver Disease - [place] 05/2019 shows enlarged liver with fat infiltration Hypertension Obesity Chronic Diastolic CHF Medication changes: Start pravastatin 20 mg daily Labs Due: LFTs 3 weeks Lipid panel 12 weeks Follow up: 12 weeks I spent a total of 10-19 minutes (exact time 10 mins) on the date of service in preparation, delivery, and documentation of the care provided to Tony Delong excluding any time spent in the performance of separately billed services or time spent by another provider/QHP. Garima Prado, [facility] Clinical Pharmacist 2:12 PM, 06/07/24 documented in this encounter Plan of Treatment Upcoming Encounters Date Type Department Care Team (Late st Contact Info) Description 06/28/2024 2:30 PM EST Home Visit [facility] [address] [facility] [place] [address] Love Stevens, RN [address] [facility] [place] [address] 07/01/2024 2:20 PM EST Office Visit Family Practice [address] [place] [address] [address] [place] [address] Igor Mcconnell DO [address] [place] [address] 08/08/2024 9:30 AM EST Nurse Only Ancillary [address] [place] [address] [place], Nurse [address] [place] [address] 09/27/2024 11:30 AM EDT Telemedicine Cardiology [facility] [address] [place] [address] [place] [address], Pharmacist Cardiology [facility] [address] [place] [address] 10/27/2024 1:00 PM EDT [facility] [address] [facility] [place] [phone] Lindsey Sheikh CRNP [address] [place] [address] 11/18/2024 2:00 PM EDT Office Visit Nephrology [address] [place] [address] Luisa Ching PA-C [address] [facility] [place], [place] [address] Scheduled Orders Name Type Priority Associated Diagnoses Orde r Schedule HEPATIC FUNCTION PANEL Lab Routine Abnormal LFTs Expected: 07/12/2024 (Approximate), Expires: 06/21/2025 LIPID PANEL WITH DIRECT LDL IF TG IS HIGH Lab Routine Dyslipidemia, goal LDL below 100 Expected: 09/19/2024 (Approximate), Expires: 06/21/2025 Health Maintenance Due Date Last Done Comments [...] this encounter Medical Devices Implanted Type Area Risk Control Director Device Identifier Shelf Expiration Date Model / Serial / Lot Lens Intraoc 21.0 - [id number] - [id number] Implanted:Qty: 1 on 01/22/2017 by Cheko Mcnamara MD at OR [facility] Right: Eye [employer] 08/05/2021 [id number] / [id number] / [id number] Lens Intraoc 21.5 - [id number] - [id number] Implanted:Qty: 1 on 02/03/2017 by Cheko Mcnamara MD at OR [facility] Left: Eye [employer] 09/02/2021 [id number] / [id number] / [id number] Hemostatic Clip Res 235cm - [id number] Implanted:Qty: 4 on 06/13/2024 by José Miguel Sifuentes MD at ENDOSCOPY [facility] : ENDOSCOPY 10/12/2026 [id number] / / [id number] Hemostatic Clip Res 235cm - [id number] Implanted:Qty: 4 on 06/13/2024 by José Miguel Sifuentes MD at ENDOSCOPY [facility] : ENDOSCOPY 03/18/2027 [id number] / / [id number] documented as of this encounter Visit Diagnoses Diagnosis Hypertensive 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 (HCC)- Primary CHAPINCITO on CPAP Obstructive sleep apnea (adult) (pediatric) Type 2 diabetes mellitus with stage 3b chronic kidney disease, with long-term current use of insulin ([facility]) Advanced care planning/counseling discussion- Primary Other specified counseling Hypertensive 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 (HCC) CHAPIN[place]O on CPAP Obstructive sleep apnea (adult) (pediatric) Mixed dyslipidemia Mixed hyperlipidemia Type 2 diabetes mellitus with hemoglobin A1c goal of less than 8.0% ([facility]) Arreola's esophagus with high grade dysplasia Arreola's esophagus Hypertensive 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 (HCC)- Primary Type 2 diabetes mellitus with stage 3b chronic kidney disease, with long-term current use of insulin ([facility]) Arreola's esophagus with high grade dysplasia Arreola's esophagus 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)- Primary Chronic obstructive pulmonary disease, unspecified COPD type (HCC) Type 2 diabetes mellitus with stage 3b chronic kidney disease, with long-term current use of insulin ([facility]) Mixed dyslipidemia Mixed hyperlipidemia 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)- Primary BMI 40.0-44.9, adult ([facility]) Body Mass Index 40.0-44.9, adult 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 Care Teams Body Wirer Relationship Specialty Start Date End Date Igor Mcconnell DO [address] [place] [address] PCP - General Internal Medicine 02/12/24 documented as of this encounter
--- OUTSIDE RECORDS SUMMARY | 2024-08-26 02:26 | External Medical Summary | Summary of Care ---
Author Name Unknown Organization [facility] Address [address] [place] [address] Phone [phone] Care Team Providers Care Leather Splitter Name Role Phone Igor Mcconnell DO Primary Care Provider [phone] Reason for Visit * Auth/Cert Specialty Diagnoses / Procedures Referred By Christin fernandez Referred To Contact Diagnoses Special screening for malignant neoplasms, colon Special screening for malignant neoplasms, colon [Z12.11] Procedures COLONOSCOPY, DIAGNOSTIC (RECTUM) COLONOSCOPY FLEXIBLE PROXIMAL DIAGNOSTIC José Miguel Sifuentes MD [address] [place] [address] Phone: tel: fax: ENDO [facility], Endoscopy Room [facility] [address] [place] [address] Phone: tel: Referral ID Status Reason Start Date Expiration Date Visits Re quested Visits Authorized [id number] Encounter Details Date Type Department Care Team (Latest Contact Info) Description 06/13/2024 9:57 AM EST - 06/13/2024 12:49 PM [facility] Hospital Encounter ENDO [facility], Endoscopy Room [facility] [address] [place] [address] José Miguel Sifuentes MD [address] [place] [address] Colonoscopy Discharge Disposition: Home - Self Care Allergies Active Allergy Reactions Criticality Noted Date Comments Metolazone Renal complications 11/10/2023 Note prior DTP with metolazone resulted in acute renal failure Other Allergy (See Comments) Rash Low 10/13/2022 1+ cocamidopropyl betaine Sglt2 Inhibitors Other (Please comment) High 09/04/2020 Genital infection Sulfa Antibiotics Rash 10/15/2016 documented as of this encounter (statuses as of 06/14/2024) Medications Aspirin 81 MG Tablet Take 1 [...] Uncontrolled type 2 diabetes mellitus with hyperglycemia ([facility]) USE TO TEST BLOOD GLUCOSE [...] Tablet 5 4 4:03 PM EDT 01/22/20 Active Additional Information Patient taking differently:80 mg [...] hemoglobin A1c goal of less than 7.0% ([facility]) INJECT UNDER THE SKIN 20 UNITS AT BREAKFAST, 26 UNITS AT LUNCH, 38 UNITS WITH DINNER PLUS CORRECTION PER [facility] OR DIRECTED UP TO 120 UNITS PER DAY 120 mL 3 4 7:52 AM EDT 03/21/20 Active DIURETIC TITRATION PLAN If no improvement on day 3, contact [facility] for possible home visit 1 Each 03/24/20 Active Evolocumab 140 MG/ML Subcutaneous Solution Auto-injector (Repatha SureClick)Indicati ons:Dyslipidemia, goal LDL below 100,Mixed dyslipidemia Inject 140 mg under the skin every 14 days. 6 mL 3 03/24/20 24 Active Additional Information Patient taking differently:140 mg Subcutaneous [id number],Om Fridays, Reported on 06/07/2024 Unifine Pentips 31G X 8 MM (Insulin Pen Needle)Indications :Type 2 diabetes mellitus with hemoglobin A1c goal of less than 7.0% ([facility]) USE TO INJECT INSULINS 5 TIMES DAILY 500 Each 3 4 7:46 AM EDT 04/18/20 24 Active Kstzu-6-ztsl Ethyl Esters 1 GM Oral Capsule (Lovaza) [...] 4 1:44 PM EST 05/30/20 24 Active documented as of this encounter (statuses as of 06/14/2024) Active Problems Patient Care Coordination No te Formatting of this note migh t be different from the original. Heart Failure Self-Management and Exacerbation Plan "RED FLAG" HF Symptoms: Leg Swelling Abdominal Bloating Increased dyspnea on exertion Increased shortness of breath at rest Orthopnea Remote Patient [place] V[place] [facility] [place] Connected Scale Self - [...] in the Comments) Remote Patient Monitoring Vendor: [employer] Device(s): Connected Scale Self - Management Plan [...] as of this encounter (statuses as of 06/14/2024) Resolved Problems Problem Noted Date Diagnosed Date [...] has been better controlled recently. Monitor using Scaled Inferencestyle Cindy. Assessment & Plan (12/19/2022 11:13 AM [...] as of this encounter (statuses as of 06/14/2024) Immunizations Name Administration Dates Next Due COVID-19 mRNA, LNP-s, No Pre serve, 2-Dose Series (Moderna) 12/10/2020,11/12/2020 Hepatitis B, 20+ yrs 01/04/2018,08/03/2017,07/03 Pneumococcal Conjugate Vacci ne, 20-valent (Peoaeoy08) 06/09/2022 Pneumococcal Polysaccharide PPV23 (Pneumovax) 03/06/2020 RSV [...] 05/02/2024 Does the household have a [facility] source of income? (Household - for ages [...] Sign Reading Time Taken Comments Blood Pressure 118/66 06/13/2024 12:23 PM EST Pulse 66 06/13/2024 12:23 PM EST Temperature 36.1 C (97 F) 06/13/2024 12:23 PM EST Respiratory Rate 16 06/13/2024 12:23 PM EST Oxygen Saturation 98% 06/13/2024 12:23 PM EST Inhaled Oxygen Concentration - - Weight 124.7 kg (275 lb) 06/07/2024 9:54 AM EST Height 182.9 cm (6') 06/07/2024 9:54 AM EST Body Mass Index 37.3 06/07/2024 9:54 AM EST documented in this encounter H&P Notes * José Miguel Sifuentes MD - 06/13/2024 11:13 AM EST Endoscopy Pre-Procedure Assessment Name: Tony Delong Date: 06/13/2024 Time: 11:13 AM Procedure: Colonoscopy; with Indication(s) of colon polyp surveillance Endoscopy Pre-Procedure Assessment: Prior to the procedure, the patient was identified. The patient's history, medications and allergies were reviewed as per the Anesthesia Assessment. The patient is competent. The risks and benefits of the proposed procedure and the planned sedation were discussed with the patient. All questions were answered and informed consent for the procedure was obtained. This patient has undergone a preprocedural evaluation. A determination has been made to proceed with the planned procedure under [facility] [place] procedural guidelines and the [facility] Non-Emergent, Elective Medical Services and Treatment Recommendations (published on 10-11-19). The community and hospital prevalence of COVID-19 has been discussed as well as this patient's specific risks associated with SARS-CoV-19 infection. Based upon the clinical acuity and patient-specific care considerations, this procedure is deemed a Tier II - Intermediate acuity treatment or service with either progression or the threat of progressive disease related to the delay in treatment. Not providing the service has the potential for increasing morbidity or mortality. BP 118/65 | Pulse 62 | Temp 36.3 C (97.4 F) (Tympanic) | Resp 16 | Ht 1.829 m (6') | Wt 124.7 kg (275 lb) | SpO2 100% | BMI 37.30 kg/m | BSA 2.52 m Prior to Admission medications Medication Sig Last Dose Discont. Potassium Chloride Gavioat ER 20 MEQ Oral Tablet Extended Release Take 2 Tablets by mouth in the morning and 2 Tablets before bedtime. 06/12/2024 Spironolactone 25 MG Oral Tablet (Aldactone) Take 1 Tablet by mouth in the morning. 06/12/2024 Carvedilol 25 MG Oral Tablet (Coreg) TAKE ONE TABLET BY MOUTH EVERY MORNING AND TAKE ONE TABLET BY MOUTH BEFORE BEDTIME 06/13/2024 Omeprazole 20 MG Oral Capsule Delayed Release (PriLOSEC) TAKE 1 CAPSULE BY MOUTH IN THE MORNING AND1 CAPSULE BEFORE BEDTIME 30 MINUTES BEFORE A MEAL 06/13/2024 metOLazone 2.5 MG Oral Tablet (Zaroxolyn) Take 1 tablet by mouth as needed for > 3 lb weight gain in 1 day, or > 5 lb weight gain in 1 week. Past Week Hsequ-8-jiib Ethyl Esters 1 GM Oral Capsule (Lovaza) Take 2 Capsules by mouth in the morning and 2 Capsules before bedtime. 06/12/2024 Evolocumab 140 MG/ML Subcutaneous Solution Auto-injector (Repatha SureClick) Inject 140 mg under the skin every 14 days. Patient taking differently: Inject 140 mg under the skin every 14 days. Om Fridays Past Week NovoLOG FlexPen 100 UNIT/ML Subcutaneous Solution Pen-injector INJECT UNDER THE SKIN 20 UNITS AT BREAKFAST, 26 UNITS AT LUNCH, 38 UNITS WITH DINNER PLUS CORRECTION PER [facility] OR DIRECTED UP TO120 UNITS PER DAY 06/12/2024 Allopurinol 300 MG Oral Tablet (Zyloprim) Take 1 Tablet by mouth in the morning. 06/12/2024 Ozempic (2 MG/DOSE) 8 MG/3ML Subcutaneous Solution Pen-injector (Semaglutide (2 MG/DOSE)) Inject 2 mg under the skin once a week. Patient taking differently: Inject 2 mg under the skin once a week. 06/09/2024 Acetaminophen ER 650 MG Oral Tablet Extended Release (Tylenol ER) Take 1-2 Tablets by mouth every 8hours as needed. (Max dose 3000 mg per day) Past Month Coenzyme Q10 200 MG Oral Capsule Take 1 Capsule by mouth at bedtime. 06/12/2024 Vitamin D 125 MCG (5000 UT) Oral Capsule Take 1 Capsule by mouth in the morning. 06/12/2024 Torsemide 20 MG Oral Tablet (Demadex) Take 4 Tablets by mouth in the morning and 4 Tablets before bedtime. Or take as directed. Patient taking differently: Take 4 Tablets by mouth 2 times a day. Morning and afternoon 06/12/2024 Tresiba FlexTouch 200 UNIT/ML Subcutaneous Solution Pen-injector INJECT UNDER THE SKIN 100 UNITS TWICE DAILY OR DIRECTED Patient taking differently: Inject 100 Units under the skin 2 times a day. 06/10/2024 FreeStyle Cindy 2 Sensor Use as directed every 14 days . 06/07/2024 Morning CPAP every night at bedtime. 06/12/2024 B Complex Capsule Take 1 Cap by mouth daily. 06/12/2024 Aspirin 81 MG Tablet Take 1 Tablet by mouth every evening. 06/12/2024 Unifine Pentips 31G X 8 MM (Insulin Pen Needle) USE TO INJECT INSULINS 5 TIMES DAILY DIURETIC TITRATION PLAN If no improvement on day 3, contact [facility] for possible home visit Clotrimazole-Betamethasone 1-0.05 % External Cream (Lotrisone) Apply small amount of cream to scrotal area two times a day Ondansetron 4 MG Oral Tablet Disintegrating (Zofran) Place 1 Tablet on tongue every 8 hours as needed for Nausea. Over 30 Days OneTouch Verio In Vitro Strip (Glucose Blood) USE TO TEST BLOOD GLUCOSE 3 TIMES A DAY. DX: E11.9 Metamucil 28.3 % Oral Powder (Psyllium) Take by mouth daily. At least 1 hour after other medications Patient not taking: Reported on 05/02/2024 Not Taking OneTouch Delica Lancets 33G Use 3 times daily - E11.9 Patient taking differently: Use 3 times daily - E11.9 Review of patient's allergies indicates: Allergen Reactions Sglt2 Inhibitors Other (Please comment) Genital infection Metolazone Renal complications Note prior DTP with metolazone resulted in acute renal failure Sulfa Antibiotics Rash Other Allergy (See Comments) Rash 1+ cocamidopropyl betaine Physical Exam: Mental Status Examination: alert and oriented. General: nad, calm Airway Examination: normal oropharyngeal airway and neck mobility. CV: no JVD Respiratory Examination: symmetrical excursion Abd:soft/ntd ASA Grade: III - A patient with severe systemic disease. After reviewing the risks and benefits, the patient was deemed in satisfactory condition to undergothe procedure. The anesthesia plan was to use general anesthesia. José Miguel Sifuentes MD 06/13/2024 documented in this encounter Procedure Notes * Igor Mcconnell DO - 06/13/2024 11:13 AM ESTAssociated Order(s): COLONOSCOPY [facility] Patient Name: Tony Delong Procedure Date: 06/13/2024 11:13 AM Date of : 1960 Admit Type: Outpatient Note Status: Finalized Date of : 1960 Admit Type: Outpatient Age: 64 Room: Endo 2 Gender: Male Note Status: Finalized Procedure: Colonoscopy Indications: High risk colon cancer surveillance: Personal history of non- advanced adenoma Providers: José Miguel Sifuentes MD (Doctor) Referring MD: Igor Mcconnell DO (Referring MD) Medicines: Propofol per Anesthesia Complications: No immediate complications. Estimated blood loss: None. Procedure: Pre-Anesthesia Assessment: - - Prior to the procedure, a History and Physical was performed, patient medications, allergies and sensitivities were reviewed. The patient's tolerance of previous anesthesia was reviewed. [facility] for [facility]. - The risks, benefits, and alternatives of the procedure including the sedation options and risks were discussed with the patient. All questions were answered and informed consent was obtained. - Patient identification and proposed procedure were verified prior to the procedure by the physician and the nurse. The procedure was verified in the procedure room. - See [facility] for documentation of the pre-procedure assessment including ASA status. - After I obtained informed consent, the scope was carefully and meticulously passed under direct vision only when the lumen was definitively identified. CO2 insufflation was utilized throughout the entire procedure exclusively. After I obtained informed consent, the scope was passed under direct vision. All instruments were visually inspected immediately before and after removal from the patient to ensure they are fully intact. Throughout the procedure, the patient's blood pressure, pulse, and oxygen saturations were monitored continuously. The [id number] Colonoscope ([id number]) was introduced through the anus and advanced to the cecum, identified by appendiceal orifice and ileocecal valve. The colonoscopy was performed without difficulty. The patient tolerated the procedure well. The quality of the bowel preparation was fair. Findings & Specimens: Two sessile polyps were found in the ascending colon. The polyps were 2 to 8 mm in size. These polyps were removed with a cold snare. Resection and retrieval were complete. The pathology specimen was placed into Bottle Number 1. To prevent bleeding post-intervention, one hemostatic clip was successfully placed (MR conditional). There was no bleeding during, or at the end, of the procedure. A 9 mm polyp was found in the transverse colon. The polyp was sessile. The polyp was removed with a cold snare. Resection and retrieval were complete. The pathology specimen was placed into Bottle Number 2. To prevent bleeding post-intervention, one hemostatic clip was successfully placed (MR conditional). There was no bleeding during, or at the end, of the procedure. Two sessile polyps were found in the descending colon. The polyps were 8 to 10 mm in size. These polyps were removed with a cold snare. Resection and retrieval were complete. The pathology specimen was placed into Bottle Number 3. To prevent bleeding post-intervention, six hemostatic clips were successfully placed (MR conditional). Bleeding had stopped at the end of the procedure. Multiple small-mouthed diverticula were found in the sigmoid colon. Internal hemorrhoids were found during retroflexion. The exam was otherwise without abnormality on direct and retroflexion views. Impression: - Preparation of the colon was fair. - Two 2 to 8 mm polyps in the ascending colon, removed with a cold snare. Resected and retrieved. Clip (MR conditional) was placed. - One 9 mm polyp in the transverse colon, removed with a cold snare. Resected and retrieved. Clip (MR conditional) was placed. - Two 8 to 10 mm polyps in the descending colon, removed with a cold snare. Resected and retrieved. Clips (MR conditional) were placed. - Diverticulosis in the sigmoid colon. - Internal hemorrhoids. - The examination was otherwise normal on direct and retroflexion views. Recommendation: - Discharge patient to home (with escort). - Repeat colonoscopy in 1 year for surveillance based on pathology results. - Return to referring physician as previously scheduled. - Patient has a contact number available for emergencies. The signs and symptoms of potential delayed complications were discussed with the patient. Return to normal activities tomorrow. Written discharge instructions were provided to the patient. José Miguel Sifuentes MD 06/13/2024 12:06:00 PM This report has been signed electronically. documented in this encounter Nursing Notes * Karen Lazaro, RN - 06/13/2024 12:48 PM EST Patient is alert, pain free, passing flatus and tolerating po fluids prior to discharge. Patient has been visited by Dr. Sifuentes. Patient has received and demonstrates understanding of discharge instructions. Patient is transported via w/c to private auto accompanied by endo staff. * Devyn Russo RN - 06/13/2024 12:08 PM EST Specimen(s) and location(s) verified with physician post procedure 12:08 PM Devyn Russo RN Mid abdominal pressure given per Dr. Sifuentes to assist with scope advancement. Pt tolerated well See anesthesia record for medication administered during procedure. Devyn Russo RN Pre cleaning of scope at the bedside started by office systems technology instructor. * Karen Lazaro RN - 06/13/2024 12:08 PM EST Patient transferred to post endo s/p colonoscopy. Patient awake/drowsy Respirations are even and unlabored on room air. NSR in the 60s on the monitor. Abdomen soft and non distended. Vital signs stable. * Farhana Quinn RN - 06/13/2024 11:05 AM EST Pt prepped and ready for anesthesia to assess. Call aguilar in reach. Pt's brought back to bedside. * Farhana Quinn RN - 06/13/2024 10:50 AM EST R eye very red and blood shot, pt gets injections into that eye, last eye injection 06/06/24. documented in this encounter Plan of Treatment Upcoming Encounters Date Type Department Care Team (Late st Contact Info) Description 06/21/2024 2:30 PM EST Telemedicine Cardiology [address] [address] [place], Pharmacist Cardiology [facility] [address] [facility] [place] [address] 06/28/2024 2:30 PM EST [facility] Visit [facility] [address] [place] [address] Love Stevens, ANNE MARIE [address] [place] [address] 07/01/2024 2:20 PM EST Office Visit Family Practice [address] [place] [address] [address] [place] [phone] Igor Mcconnell DO [address] [place] [address] 08/08/2024 9:30 AM EST Nurse Only Ancillary [address] [place] [address] [place], Nurse [address] [place] [address] 10/27/2024 1:00 PM EDT Office Visit Sleep Disorders Ctr [facility] [address] [facility] [place] [phone] Lindsey Sheikh CRNP [address] [place] [address] 11/18/2024 2:00 PM EDT Office Visit Nephrology [address] [place] [address] ZeLuisa reyes PA-C [address] [place] [address] Pending Results Name Type Priority Associated Diagnoses Date /Time SURGICAL PATHOLOGY Pathology Routine Special screening for malignant neoplasms, colon 06/13/2024 12:04 PM EST Scheduled Orders Name Type Priority Associated Diagnoses Order Schedule GLUCOSE METER, POINT OF CARE (COMMUNICATION ORDER) Point of Care Testing Routine As Needed until discontinued starting 06/13/2024 SURGICAL PATHOLOGY Pathology Routine Special screening for malignant neoplasms, colon Release Upon Ordering for 1 Occurrences starting 06/13/2024, 1 completed Health Maintenance Due Date Last Done Comments [...] or Tdap) 12/29/2026 12/29/2016 Colonoscopy 06/13/2029 06/13/2024, 12/05, 01/01/2018 Colorectal Cancer Screening 06/13/2029 Hepatitis B Vaccine Completed 01/04/2018, 08/03/2017, 07/03/2017 Zoster Vaccines Completed 05/29/2020, 01/27/2020 Pneumococcal Vaccine: 65+ Years Completed 06/09/2022, 03/06/2020 AAA Screening Completed 10/20/2023, 01/29/2021 Influenza Vaccine (FLU shot) Completed 03/11/2024, 04/01/2023, 04/27/2022, Additional history exists RETIRED - COLONOSCOPY-EVERY 5 YRS AGES 18-100 Discontinued 06/13/2024, 01/01/2018, 01/01/2018 HPV (Gardasil) Vaccine Aged Out No lo nger eligible based on patient's age to complete this topic MENINGOCOCCAL (MENACTRA/MENVEO) Aged Out No longer eligible based on patient's age to complete this topic documented as of this encounter Medical Devices Implanted Type Area Facility Mechanic Device Identifier Shelf Expiration Date Model / Serial / Lot Lens Intraoc 21.0 - [id number] - [id number] Implanted:Qty: 1 on 01/22/2017 by Cheko Mcnamara MD at OR [facility] Right: Eye [employer] 08/05/2021 [id number] / [id number] / [id number] Lens Intraoc 21.5 - [id number] - [id number] Implanted:Qty: 1 on 02/03/2017 by Cheko Mcnamara MD at OR [facility] Left: Eye [employer] 09/02/2021 [id number] / [id number] / [id number] Hemostatic Clip Res 235cm - [id number] Implanted:Qty: 4 on 06/13/2024 by José Miguel Sifuentes MD at ENDOSCOPY [facility] [employer] : ENDOSCOPY 10/12/2026 [id number] / / [id number] Hemostatic Clip Res 235cm - [id number] Implanted:Qty: 4 on 06/13/2024 by José Miguel Sifuentes MD at ENDOSCOPY [facility] [employer] : ENDOSCOPY 03/18/2027 [id number] / / [id number] documented as of this encounter Procedures Procedure Name Priority Date/Time Associated Diagnosis Comments COLONOSCOPY 06/13/2024 11:13 AM EST GLUCOSE METER, POINT OF CARE ALEXANDER 06/13/2024 11:02 AM EST documented in this encounter Results * COLONOSCOPY (06/13/2024 11:13 AM EST) 06/13/2024 11:1 3 AM EST Narrative Procedure Note Igor Mcconnell DO - 06/13/2024 11:13 AM EST [facility] Patient Name: Tony Delong Procedure Date: 06/13/2024 11:13 AM Date of : 1960 Admit Type: Outpatient Note Status:Finalized Date of : 1960 Admit Type: Outpatient Age: 64 Room: [facility] 2 Gender: Male Note Status: Finalized Procedure: Colonoscopy Indications: High risk colon cancer surveillance: Personalhistory of non- advanced adenoma Providers: José Miguel Sifuentes MD (Doctor) Referring MD: Igor Mcconnell DO (Referring MD) Medicines: Propofol per Anesthesia Complications: No immediate complications. Estimated blood loss:None. Procedure: Pre-Anesthesia Assessment: - - Prior to the procedure, a History and Physicalwas performed, patient medications, allergies and sensitivities were reviewed. Thepatient's tolerance of previous anesthesia was reviewed. [facility] for [facility]. - The risks, benefits, and alternatives of theprocedure including the sedation options and risks were discussed with the patient.All questions were answered and informed consent was obtained. - Patient identification and proposed procedurewere verified prior to the procedure by the physician and the nurse. The procedure wasverified in the procedure room. - See [facility] for documentation of the pre-procedureassessment including ASA status. - After I obtained informed consent, the scope wascarefully and meticulously passed under direct vision only when the lumen wasdefinitively identified. CO2 insufflation was utilized throughout the entire procedureexclusively. After I obtained informed consent, the scope waspassed under direct vision. All instruments were visually inspected immediatelybefore and after removal from the patient to ensure they are fully intact. Throughout the procedure, the patient's bloodpressure, pulse, and oxygen saturations were monitored continuously. The [id number] ([id number]) was introduced through the anus and advanced to the cecum,identified by appendiceal orifice and ileocecal valve. The colonoscopy was performedwithout difficulty. The patient tolerated the procedure well. The quality of thebowel preparation was fair. Findings & Specimens: Two sessile polyps were found in the ascending colon. The polyps were2 to 8 mm in size. These polyps were removed with a cold snare. Resection and retrieval werecomplete. The pathology specimen was placed into Bottle Number 1. To prevent bleeding post-intervention,one hemostatic clip was successfully placed (MR conditional). There was no bleeding during,or at the end, of the procedure. A 9 mm polyp was found in the transverse colon. The polyp wassessile. The polyp was removed with a cold snare. Resection and retrieval were complete. The pathologyspecimen was placed into Bottle Number 2. To prevent bleeding post-intervention, one hemostatic clip wassuccessfully placed (MR conditional). There was no bleeding during, or at the end, of the procedure. Two sessile polyps were found in the descending colon. The polypswere 8 to 10 mm in size. These polyps were removed with a cold snare. Resection and retrieval werecomplete. The pathology specimen was placed into Bottle Number 3. To prevent bleeding post-intervention,six hemostatic clips were successfully placed (MR conditional). Bleeding had stopped at the endof the procedure. Multiple small-mouthed diverticula were found in the sigmoid colon. Internal hemorrhoids were found during retroflexion. The exam was otherwise without abnormality on direct and retroflexionviews. Impression: - Preparation of the colon was fair. - Two 2 to 8 mm polyps in the ascending colon,removed with a cold snare. Resected and retrieved. Clip (MR conditional) was placed. - One 9 mm polyp in the transverse colon, removedwith a cold snare. Resected and retrieved. Clip (MR conditional) was placed. - Two 8 to 10 mm polyps in the descending colon,removed with a cold snare. Resected and retrieved. Clips (MR conditional) wereplaced. - Diverticulosis in the sigmoid colon. - Internal hemorrhoids. - The examination was otherwise normal on directand retroflexion views. Recommendation: - Discharge patient to home (with escort). - Repeat colonoscopy in 1 year for surveillancebased on pathology results. - Return to referring physician as previouslyscheduled. - Patient has a contact number available foremergencies. The signs and symptoms of potential delayed complications were discussed withthe patient. Return to normal activities tomorrow. Written discharge instructionswere provided to the patient. José Miguel Sifuentes MD 06/13/2024 12:06:00 PM This report has been signed electronically. us Igor Mcconnell DO GASTRO LOWER Final Result * (ABNORMAL) GLUCOSE METER, POINT OF CARE (06/13/2024 11:02 AM EST) GLUCOSE - POCT 141(H) 70 - 120 mg/dL 06/13/2024 11:06 AM EST [facility]00 Blood Whole blood specimen / Unknown 06/13/2024 11:02 AM EST 06/13/2024 11:05 AM EST us José Miguel Sifuentes MD LAB POINT OF CARE TE ST DOCKED DEVICE UNSOLICITED RESULTS Final Result [facility] [place] [address] documented in this encounter Visit Diagnoses Diagnosis [...] right eye and macular edema, unspecified whether prison insulin use (HCC) Chronic obstructive pulmonary disease, unspecified COPD type (HCC) Sacroiliitis (HCC) Sacroiliitis, not elsewhere classified Other specified peripheral vascular diseases (HCC) Coronary artery calcification seen on CT scan Mixed dyslipidemia Mixed hyperlipidemia Special screening for malignant neoplasms, colon documented in this encounter Administered Medications Inactive Administered Medications - up to 3 most recent administrations Medication Order MAR Action Action Date Dose Rate Site Isolyte-S pH 7.4 infusion Intravenous, at 25 mL/hr, for Outpatient patient Plasma-LYTE 148, isolyte-S, and isolyte-S pH 7.4 are considered equivalent - including for MAR barcode scanning., CONTINUOUS, Starting on Thu06/13/24 at 1115, Until Thu06/13/24 at 1649, Pre-Op Continue from Pre-Op 06/13/2024 11:23 AM EST 25 mL/hr New Bag 06/13/2024 11:05 AM EST 25 mL/hr 25 mL/hr documented in this encounter Active and Recently Administered Medications Times are shown in EST. Continuous Medication Order 06/11/2024 06/12/2024 06/13/2024 Isolyte-S pH 7.4 infusion Intravenous, at 25 mL/hr, for Outpatient patient Plasma-LYTE 148, isolyte-S, and isolyte-S pH 7.4 are considered equivalent - including for MAR barcode scanning., CONTINUOUS, Starting on Thu06/13/24 at 1115, Until Thu06/13/24 at 1649, Pre-Op 1105 (New Bag - Prov ider: Farhana Quinn RN)1123 (Continue from Pre-Op - Provider: Ricardo Wilson CRNA)1157 (Anes Intra-Op Fluid - Provider: Ricardo Wilson CRNA) documented in this encounter Advance Directives * [...] and were consensually agreed upon. Care Teams Leather Splitter Relationship Specialty Start Date End Date Igor Mcconnell DO [address] [facility] [place] [address] PCP - General Internal Medicine 02/12/24 documented as of this encounter
--- OUTSIDE RECORDS SUMMARY | 2024-08-26 02:26 | External Medical Summary ---
Author Name Unknown Address Unknown Organization K01:LABORATORY [facility] - [address] [place] [address] Laboratory Report Ordering Provider Test Date Status ADRIA REN 06/13/2024 09:48:45 Final Observation Date Value Abnormality Reference (Units ) Status Uric Acid 06/13/2024 09:48:45 7.9 Above high normal 3. 4-7.0 (mg/dL) Final Performing Location LABORATORY [facility] - [address] [place] [address]
--- OUTSIDE RECORDS SUMMARY | 2024-08-26 02:26 | External Medical Summary | Summary of Care ---
Author Name Unknown Organization [facility] Address [address] [place] [address] Phone [phone] Care Team Providers Care Chemical Operations And Training Name Role Phone Igor Mcconnell DO Primary Care Provider [phone] Reason for Visit * Reason Onset Date Comments Home Monitoring Orders Only 06/08/2024 Encounter Details Date Type Department Care Team (Latest Contact Info) Description 06/08/2024 Home Monitoring Care Coordination and Integration [address] [place] [address] Lucie Cao OSA [address] [employer], [place] [id number] Vital capacity reduced* Allergies Active Allergy Reactions Criticality Noted Date Comments Metolazone Renal complications 11/10/2023 Note prior DTP with metolazone resulted in acute renal failure Other Allergy (See Comments) Rash Low 10/13/2022 1+ cocamidopropyl betaine Sglt2 Inhibitors Other (Please comment) High 09/04/2020 Genital infection Sulfa Antibiotics Rash 10/15/2016 documented as of this encounter (statuses as of 06/08/2024) Medications Aspirin 81 MG Tablet Take 1 [...] differently: 100 Units Subcutaneous BID(Non-Specified), Reported on 06/07/2024 Torsemide 20 MG Oral Tablet (Demadex)Indicatio ns:Chronic [...] mg OralBID(Non-Specified), Morning and afternoon, Reported on 06/07/2024 Vitamin D 125 MCG (5000 UT) Oral [...] 38 UNITS WITH DINNER PLUS CORRECTION PER [facility] OR DIRECTED UP TO 120 UNITS PER DAY 120 mL 3 4 7:52 AM EDT 03/21/20 Active DIURETIC TITRATION PLAN If no improvement on day 3, contact [facility] for possible home visit 1 Each 03/24/20 Active Evolocumab 140 MG/ML Subcutaneous Solution Auto-injector (Repatha SureClick)Indicati ons:Dyslipidemia, goal LDL below 100,Mixed dyslipidemia Inject 140 mg under the skin every 14 days. 6 mL 3 03/24/20 Active Additional Information Patient taking differently:140 mg Subcutaneous [id number],Om Fridays, Reported on 06/07/2024 Unifine Pentips 31G X 8 MM (Insulin Pen Needle)Indications :Type 2 diabetes mellitus with hemoglobin A1c goal of less than 7.0% (HCC) USE TO INJECT INSULINS 5 TIMES DAILY 500 Each 3 4 7:46 AM EDT 04/18/20 Active Zjvyb-3-ouhp Ethyl Esters 1 GM Oral Capsule (Lovaza) Take 2 Capsules by mouth in the morning and 2 Capsules before bedtime. 360 Capsule 1 4 7:46 AM EDT 10/14/20 24 Active metOLazone 2.5 MG Oral Tablet [...] as of this encounter (statuses as of 06/08/2024) Active Problems Patient Care Coordination No te [...] in the Comments) Remote Patient Monitoring Vendor: [employer] Device(s): Connected Scale Self - Management Plan Double dose of Torsemide for 3 days Exacerbation Plan BMP Chest X-Ray Additional Comments: Recommended using double torsemide for 3 days in a row, rather than 1 day like he has been doing Continue using [employer] scale Low sodium diet Assessment & Plan [...] as of this encounter (statuses as of 06/08/2024) Resolved Problems Problem Noted Date Diagnosed Date [...] has been better controlled recently. Monitor using Langostyle Cindy. Assessment & Plan (12/19/2022 11:13 AM [...] as of this encounter (statuses as of 06/08/2024) Immunizations Name Administration Dates Next Due COVID-19 mRNA, LNP-s, No Pre serve, 2-Dose Series (Moderna) 12/10/2020,11/12/2020 Hepatitis B, 20+ yrs 01/04/2018,08/03/2017,07/03 Pneumococcal Conjugate Vacci ne, 20-valent ([id number]) 06/09/2022 Pneumococcal Polysaccharide PPV23 (Pneumovax) 03/06/2020 RSV [...] as of this encounter Progress Notes * Lucie Cao OSA - 06/08/2024 8:25 AM EST Patient has been successfully enrolled to the [employer] [facility] [employer] program and will be provided with the [email or web address] Wearable device to facilitate their participation in remote monitoring: BP O2 Scale Patient has been oriented to remote patient monitoring by their Scrap Collector. The disease case manager rn has also provided the patient with instruction and education regarding the program. [facility] to assist with initial device set-up. Delivery Method: Vendor supplied Patient understands that this monitoring should not be used as a replacement for emergency and/or urgent care. If patient experiences any urgent symptoms, they are aware to call their manager maritime for additional instructions. In emergency situations, they will either call 911 or report directly to the ED for further evaluation. Per an order the member is supposed to be enrolled in BP Cuff, Scale and Pulse Ox, however member was enrolled in [facility] with just Scale and Pulse Ox: Message Patient is already enrolled with [email or web address]. He does have a scale and a pulse ox but he was also suppose to get a BP cuff which he did not receive. He just needs the BP cuff. Number of Visits Requested: 999 Associated Diagnosis: Type 2 diabetes mellitus with hemoglobin A1c goal of less than 8.0% (HCC) (E11.9) CHAPINCITO on CPAP (G47.33) Chronic heart failure with preserved ejection fraction (HCC) (I50.32) Hepatic cirrhosis (HCC) (K74.60) Order Specific Questions: Referral Priority: Within 3 days (urgent) Where should this appointment be scheduled? [facility]: Current Health Device(s) Requested: BP Cuff Device(s) Requested: Pulse Ox Device(s) Requested: Scale Alarm Settings: Standard per protocol Therefor we need to dis enroll the member currently and then reenroll to add the BP Cuff. Before disenrollment member currently shows in as: Tony Delong [id number] Feb, SCALE O2 Dec 3, 9:41am Name Tony Delong Date of Feb, (age 64) Admission date Jun 01, 7:38am (7 days) Kit name - Preferred language Swedish ([place]) Contact number Patient Cameron Number Patient care [address] [facility] [address] Location [facility] Care provider [place] stev[place] Patient status -- Program [facility] Population [facility] [place] Department -- Primary diagnoses for monitoring Vital Sign Trending Tony Delong: Kit Base Kit Assign kit narrow chive ten Nonin 3230 Pulse Oximeter Nonin 3230 Pulse Oximeter [id number] Scales Scales [id number] Remove narrow chive ten Personal Smartphone or Tablet BYOD [employer] Patient Cameron Phone number: Resend Invite Edit Discharge I have now reenrolled the member to include BP Cuff, Scale and O2. A note was provided to that we are no reenrolling with the BP Cuff Addition and also made note of the current kit the member has: narrow chive ten After re-enrollment member now shows in as: Tony Delong [id number] Feb, BP O2 SCALE Jun 07, 9:41am Name Tony Delong Date of Feb, (age 64) Admission date Jun 08, 8:29am (0 hours) Kit name - Preferred language Swedish ([place]) Contact number Patient Cameron Number Patient care address [address] [place] [address] Location [facility] Care provider [place] Patient status -- Program [facility] Population [facility] [place] Department -- Primary diagnoses for monitoring Vital Sign Trending Tony Delong: Kit Base Kit Assign kit narrow chive ten Nonin 3230 Pulse Oximeter Nonin 3230 Pulse Oximeter [id number] Scales Scales [id number] Remove narrow chive ten Personal Smartphone or Tablet [employer] Patient Cameron Phone number: Resend Invite Edit Discharge documented in this encounter Plan of Treatment Upcoming Encounters Date Type Department Care Team (Late st Contact Info) Description 06/13/2024 11:15 AM EST Hospital Encounter ENDO OSSC, Endoscopy Room [facility] [address] [place] [phone] José Miguel Sifuentes MD [address] [place] [address] 06/13/2024 11:15 AM EST - 06/13/2024 11:45 AM EST Surgery ENDO OSSC, Endoscopy Room [facility] [address] [place] [phone] José Miguel Sifuentes MD [address] [place] [address] COLONOSCOPY FLEXIBLE PROXIMAL DIAGNOSTIC 06/21/2024 2:30 PM EST Telemedicine Cardiology [facility] [place] [address] [facility] [place] [address] [place] [address], Pharmacist Cardiology [facility] [address] [place] [facility] [place] [address] 06/28/2024 2:30 PM EST [facility] Visit [facility] [address] [place] [address] [place] RN [address] [place] [address] 07/01/2024 2:20 PM EST Office Visit Family Practice [address] [facility] [place] [address] [facility] [place] [phone] Igor Mcconnell, [address] [place] [address] 08/08/2024 9:30 AM EST Nurse Only Ancillary [address] [place] [address] [place], Nurse [address] [place] [address] 10/27/2024 1:00 PM EDT Office Visit Sleep Disorders Ctr [facility] [address] [facility] [place] [phone] Lindsey Sheikh CRNP [address] [facility] [place] [address] 11/18/2024 2:00 PM EDT Office Visit Nephrology [address] [place] [address] ZemaLuisa leslie PA-C [address] [place] [address] Scheduled Procedures Name Priority Associated Diagnoses Date/Ti me COLONOSCOPY FLEXIBLE PROXIMAL DIAGNOSTIC Recall Special screening for malignant neoplasms, colon 06/13/2024 11:15 AM EST Health Maintenance Due Date Last Done Comments Alpha-1 Antitrypsin 1977 Cologuard 02/09/2004 Fecal Occult Blood Test 02/09/2004 Sigmoidoscopy 02/09/2004 Colonoscopy 01/01/2023 01/01/2018, 01/01/2018 Colorectal Cancer Screening 01/01/2023 COVID-19 Vaccine ( season) 2024 12/10/2020, 11/12/2020 Depression Screening 08/05/2024 08/05/2023 HbA1c 08/14/2024 02/12/2024, 04/1 01/2024, 06/11/2023, Additional history exists Diabetic Foot Exam 10/19/2024 10/20/2023, 0 09/02/2022, 08/16/2021, Additional history exists GFR 11/23/2024 05/26/2024, 110 02/2024, 04/13/2024, Additional history exists Hgb 05/13/2025 05/13/2024, 09/0 12/2023, 02/24/2024, Additional history exists PTH 05/13/2025 05/13/2024, 08/3 07/2021, 09/12/2020 Phosphate 05/13/2025 05/13/2024, 10/05, 10/23/2023, Additional history exists Albumin/Creatinine Ratio 05/18/2025 024, 05/13/2024, 06/11/2023, Additional history exists Diabetic Eye Exam 05/19/2025 05/19/2024, , 04/11/2024, Additional history exists Nephrology Referral 05/30/2025 05/30/2024 O2 ASSESSMENT COMPLETED IN PAST YEAR FOR COPD 05/30/2025 05/30/2024 Arreola's Esophagus Surveilance 06/16/2025 06/16/2022, 06/16/2022, 03/20/2022, Additional history exists DTap/Tdap Vaccines (2 - Td or Tdap) 12/29/2026 12/29/2016 RETIRED - COLONOSCOPY-EVERY 5 YRS AGES 18-100 Discontinued 01/01/2018, 01/01/2018 Hepatitis B Vaccine Completed 01/04/2018, 08/03/2017, 07/03/2017 Zoster Vaccines Completed 05/29/2020, 01/27/2020 Pneumococcal Vaccine: 65+ Years Completed 06/09/2022, 03/06/2020 AAA Screening Completed 10/20/2023, 01/29/2021 Influenza Vaccine (FLU shot) Completed 03/11/2024, 04/01/2023, 04/27/2022, Additional history exists HPV (Gardasil) Vaccine Aged Out No lo nger eligible based on patient's age to complete this topic MENINGOCOCCAL (MENACTRA/MENVEO) Aged Out No longer eligible based on patient's age to complete this topic documented as of this encounter Medical Devices Implanted Type Area Central Station Operator Device Identifier Shelf Expiration Date Model / Serial / Lot Lens Intraoc 21.0 - [id number] - [id number] Implanted:Qty: 1 on 01/22/2017 by Cheko Mcnamara MD at OR [facility] Right: Eye [employer] 08/05/2021 [id number] / [id number] / [id number] Lens Intraoc 21.5 - [id number] - [id number] Implanted:Qty: 1 on 02/03/2017 by Cheko Mcnamara MD at OR [facility] Left: Eye [employer] 09/02/2021 [id number] / [id number] / [id number] documented as of this encounter Visit Diagnoses Diagnosis Hypertensive 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 (HCC)- Primary CHAPINCITO on CPAP Obstructive sleep apnea (adult) (pediatric) Type 2 diabetes mellitus with stage 3b chronic kidney disease, with long-term current use of insulin ([facility]) Advanced care planning/counseling discussion- Primary Other specified counseling Hypertensive 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 (HCC) CHAPINCITO on CPAP Obstructive sleep apnea (adult) (pediatric) Mixed dyslipidemia Mixed hyperlipidemia Type 2 diabetes mellitus with hemoglobin A1c goal of less than 8.0% ([facility]) Arreola's esophagus with high grade dysplasia [...] pulmonary disease, unspecified COPD type ([facility]) Type 2 diabetes mellitus with stage 3b chronic kidney disease, with long-term current use of insulin ([facility]) Mixed dyslipidemia Mixed hyperlipidemia 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)- Primary BMI 40.0-44.9, adult ([facility]) Body Mass Index 40.0-44.9, adult 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 Care Teams Chemical Operations And Training Relationship Specialty Start Date End Date Igor Mcconnell DO [address] [place] [place] [address] PCP - General Internal Medicine 02/12/24 documented as of this encounter
--- OUTSIDE RECORDS SUMMARY | 2024-08-26 02:26 | External Medical Summary ---
Author Name Unknown Address Unknown Organization : Laboratory Report Ordering Provider Test Date Status MESFIN VILLAFUERTE 06/13/2024 11:02:55 Final Observation Date Value Abnormality Reference (Units ) Status Glucose Point of Care 06/13/2024 11:02:55 141 Above high normal 70-120 (mg/dL) Final Performing Location
--- OUTSIDE RECORDS SUMMARY | 2024-08-26 02:26 | External Medical Summary | Summary of Care ---
Author Name Unknown Organization [facility] Address [address] [facility] [address] Phone [phone] Care Team Providers Care Pharmacology Teacher Name Role Phone Igor Mcconnell DO Primary Care Provider [phone] Reason for Visit * Reason Comments Outpatient Testing Encounter Details Date Type Department Care Team (Late st Contact Info) Description 06/13/2024 10:00 AM EST Laboratory [facility], [facility] [phone] [facility] [address] [facility] [address] Hypertensive heart and kidney disease with chronic [...] as of this encounter (statuses as of 06/13/2024) Medications Aspirin 81 MG Tablet Take 1 Tablet by mouth every evening. Suspended B Complex Capsule Take 1 Cap by mouth daily. Suspended CPAP every night at bedtime. Suspended OneTouch Delica Lancets 33G Use 3 times daily - E11.9 300 Each 3 09/07/19 22 Suspended Additional Information Patient taking differently:, Use 3 times daily - E11.9,Indications: diabetes, Reported on 07/14/2022 FreeStyle Cindy 2 SensorIndications :Type 2 diabetes mellitus with hemoglobin A1c goal of less than 7.0% ([facility]) Use as directed every 14 days . 6 Each 3 04/24/20 22 Suspended Metamucil 28.3 % Oral Powder (Psyllium) Take by mouth daily. At least 1 hour after other medications Suspended OneTouch Verio In Vitro Strip (Glucose Blood)Indications :Uncontrolled type 2 diabetes mellitus with hyperglycemia ([facility]) USE TO TEST BLOOD GLUCOSE 3 TIMES A DAY. DX: E11.9 300 Strip 3 4 4:43 PM EDT 09/23/19 24 Suspended Ondansetron 4 MG Oral Tablet Disintegrating (Zofran) Place 1 Tablet on tongue every 8 hours as needed for Nausea. 30 Tablet 4 1:03 PM EDT 01/18/20 24 Suspended Tresiba FlexTouch 200 UNIT/ML Subcutaneous Solution Pen-injectorIndic ations:Type 2 diabetes mellitus with hemoglobin A1c goal of less than 7.0% ([facility]) INJECT UNDER THE SKIN 100 UNITS TWICE DAILY OR DIRECTED 90 mL 3 4 10:11 AM EDT 01/18/20 24 025 Suspended Additional Information Patient taking differently: 100 Units Subcutaneous BID(Non-Specified), Reported on 06/07/2024 Torsemide 20 MG Oral Tablet (Demadex)Indicati ons:Chronic heart failure with preserved ejection fraction (HCC),Hypertensiv e 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 chronic kidney disease (HCC) Take 4 Tablets by mouth in the morning and 4 Tablets before bedtime. Or take as directed. 240 Tablet 5 4 4:03 PM EDT 01/22/20 24 Suspended Additional Information Patient taking differently:80 mg OralBID(Non-Specified), Morning and afternoon, Reported on 06/07/2024 Vitamin D 125 MCG (5000 UT) Oral Capsule Take 1 Capsule by mouth in the morning. Suspended Coenzyme Q10 200 MG Oral Capsule Take 1 Capsule by mouth at bedtime. Suspended Acetaminophen ER 650 MG Oral Tablet Extended Release (Tylenol ER) Take 1-2 Tablets by mouth every 8 hours as needed. (Max dose 3000 mg per day) Suspended Ozempic (2 MG/DOSE) 8 MG/3ML Subcutaneous Solution Pen-injector (Semaglutide (2 MG/DOSE))Indicati ons:Type 2 diabetes mellitus with stage 4 chronic kidney disease, with long-term current use of insulin (HCC) Inject 2 mg under the skin once a week. 2 mL 11 4 1:20 PM EDT 02/16/20 Suspended Additional Information Patient taking differently:2 mg Subcutaneous QWEEK,, Reported on 06/07/2024 Clotrimazole-Beta methasone 1-0.05 % External Cream (Lotrisone) Apply small amount of cream to scrotal area two times a day 90 g 1 4 5:44 PM EDT 03/02/20 24 Suspended Allopurinol 300 MG Oral Tablet (Zyloprim)Indicat ions:Gout, arthropathy Take 1 Tablet by mouth in the morning. 100 Tablet 3 4 7:16 AM EDT 03/17/20 24 Suspended NovoLOG FlexPen 100 UNIT/ML Subcutaneous Solution Pen-injectorIndic ations:Type 2 diabetes mellitus with hemoglobin A1c goal of less than 7.0% (HCC) INJECT UNDER THE SKIN 20 UNITS AT BREAKFAST, 26 UNITS AT LUNCH, 38 UNITS WITH DINNER PLUS CORRECTION PER [facility] OR DIRECTED UP TO 120 UNITS PER DAY 120 mL 3 4 7:52 AM EDT 03/21/20 24 Suspended DIURETIC TITRATION PLAN If no improvement on day 3, contact [facility] for possible home visit 1 Each 03/24/20 Suspended Evolocumab 140 MG/ML Subcutaneous Solution Auto-injector (Repatha SureClick)Indicat ions:Dyslipidemia , goal LDL below 100,Mixed dyslipidemia Inject 140 mg under the skin every 14 days. 6 mL 3 03/24/20 24 Suspended Additional Information Patient taking differently:140 mg Subcutaneous [id number],Om Fridays, Reported on 06/07/2024 Unifine Pentips 31G X 8 MM (Insulin Pen Needle)Indication s:Type 2 diabetes mellitus with hemoglobin A1c goal of less than 7.0% (HCC) USE TO INJECT INSULINS 5 TIMES DAILY 500 Each 3 4 7:46 AM EDT 04/18/20 24 Suspended Bhtwb-6-[id number] Ethyl Esters 1 GM Oral Capsule (Lovaza) Take 2 Capsules by mouth in the morning and 2 Capsules before bedtime. 360 Capsule 1 4 7:46 AM EDT 04/18/20 24 Suspended metOLazone 2.5 MG Oral Tablet (Zaroxolyn)Indica tions:Hypertensiv e 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 chronic kidney disease (HCC) Take 1 tablet by mouth as needed for > 3 lb weight gain in 1 day, or > 5 lb weight gain in 1 week. 100 Tablet 5 4 7:46 AM EDT 04/18/20 24 Suspended Omeprazole 20 MG Oral Capsule Delayed Release (PriLOSEC) TAKE 1 CAPSULE BY MOUTH IN THE MORNING AND 1 CAPSULE BEFORE BEDTIME 30 MINUTES BEFORE A MEAL 180 Capsule 1 4 7:11 AM EDT 05/02/20 24 025 Suspended Carvedilol 25 MG Oral Tablet (Coreg)Indication s:HTN, goal below 140/90 TAKE ONE TABLET BY MOUTH EVERY MORNING AND TAKE ONE TABLET BY MOUTH BEFORE BEDTIME 200 Tablet 3 4 2:43 PM EST 05/17/20 24 025 Suspended Potassium Chloride Gaviota ER 20 MEQ Oral Tablet Extended Release Take 2 Tablets by mouth in the morning and 2 Tablets before bedtime. 360 Tablet 3 05/30/20 24 Suspended Spironolactone 25 MG Oral Tablet (Aldactone) Take 1 Tablet by mouth in the morning. 90 Tablet 3 4 1:44 PM EST 05/30/20 24 Suspended documented as of this encounter (statuses as of 06/13/2024) Active Problems Patient Care Coordination No te Formatting of this note migh t be different from the original. Heart Failure Self-Management and Exacerbation Plan "RED FLAG" HF Symptoms: Leg Swelling Abdominal Bloating Increased dyspnea on exertion Increased shortness of breath at rest Orthopnea Remote Patient Monitoring Vendor: [facility] Device(s): Connected Scale Self - Management [...] in the Comments) Remote Patient Monitoring Vendor: [facility] Device(s): Connected Scale Self - Management [...] as of this encounter (statuses as of 06/13/2024) Resolved Problems Problem Noted Date Diagnosed Date [...] has been better controlled recently. Monitor using [employer] Cindy. Assessment & Plan (12/19/2022 11:13 AM [...] as of this encounter (statuses as of 06/13/2024) Immunizations Name Administration Dates Next Due COVID-19 mRNA, LNP-s, No Pre serve, 2-Dose Series (Moderna) 12/10/2020,11/12/2020 Hepatitis B, 20+ yrs 01/04/2018,08/03/2017,07/03 Pneumococcal Conjugate Vacci ne, 20-valent ([id number]) 06/09/2022 Pneumococcal Polysaccharide PPV23 (Pneumovax) 03/06/2020 RSV [...] Description 06/21/2024 2:30 PM EST [facility] [address] [place] [address] [place] [address], Pharmacist Cardiology [facility] [address] [place] [address] 06/28/2024 2:30 PM EST Home Visit [facility] 132 [facility] [place] [address] Love Stevens RN [address] [facility] [address] 07/01/2024 2:20 PM EST Office Visit Family Practice [address] [facility] [place] 293 [facility] [place] [address] Igor Mcconnell DO 293 [place] [address] 08/08/2024 9:30 AM EST Nurse Only Ancillary [address] [place] [address] [place], Nurse Annual [address] [place] [address] 10/27/2024 1:00 PM EDT [facility] [address] [place] [phone] Lindsey Sheikh CRNP [address] [place] [address] 11/18/2024 2:00 PM EDT Office Visit Nephrology [address] [place] [address] Luisa Ching PA-C [address] [place] [address] Pending Results Name Type Priority Associated Diagnoses Date /Time BASIC METABOLIC PANEL Lab Routine 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) 06/13/2024 9:48 AM EST URIC ACID Lab Routine 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) 06/13/2024 9:48 AM EST Scheduled Procedures Name Priority Associated [...] Depression Screening 08/05/2024 08/05/2023 HbA1c 08/14/2024 02/12/2024, 0401/2024, 06/11/2023, Additional history exists Diabetic Foot Exam 10/19/2024 10/20/2023, 0 09/02/2022, 08/16/2021, Additional history exists GFR 11/23/2024 05/26/2024, 02/2024, 04/13/2024, Additional history exists Hgb 05/13/2025 05/13/2024, 12/2023, [...] this encounter Medical Devices Implanted Type Area Starter Cup Powder Mixer Device Identifier Shelf Expiration Date Model / Serial / Lot Lens Intraoc 21.0 - [id number] - [id number] Implanted:Qty: 1 on 01/22/2017 by Cheko Mcnamara MD at OR [facility] Right: Eye [employer]OM[employer] 08/05/2021 [id number] / [id number] / [id number] Lens Intraoc 21.5 - [id number] - [id number] Implanted:Qty: 1 on 02/03/2017 by Cheko Mcnamara MD at OR [facility] Left: Eye [employer]CH [employer] LOMB 09/02/2021 [id number] / [id number] / [id number] documented as of this encounter Visit Diagnoses Diagnosis Hypertensive 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 (HCC)- Primary [place] on CPAP Obstructive sleep apnea (adult) (pediatric) Type 2 diabetes mellitus with stage 3b chronic kidney disease, with long-term current use of insulin ([facility]) Advanced care planning/counseling discussion- Primary [...] Chronic obstructive pulmonary disease, unspecified COPD type ([facility]) Type 2 diabetes mellitus with stage 3b chronic kidney disease, with long-term current use of insulin ([facility]) Mixed dyslipidemia Mixed hyperlipidemia 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)- Primary BMI 40.0-44.9, adult ([facility]) Body Mass Index 40.0-44.9, adult 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 Care Teams Pharmacology Teacher Relationship Specialty Start Date End Date Igor Mcconnell DO [address] [place] [address] PCP - General Internal Medicine 02/12/24 documented as of this encounter
--- OUTSIDE RECORDS SUMMARY | 2024-08-26 02:26 | External Medical Summary ---
Author Name Unknown Address Unknown Organization K0G:[facility] [address] [place] [address] Laboratory Report Ordering Provider Test Date Status ADRIA REN 06/13/2024 09:48:45 Final Observation Date Value Abnormality Reference (Units ) Status BUN 06/13/2024 09:48:45 62 Above high normal 6-20 (mg/dL) Final Creatinine 06/13/2024 09:48:45 2.9 Above high normal 0.6-1.2 (mg/dL) Final Glomerular filtration rate/1.73 sq M.predicted [Volume Rate/Area] in Serum, Plasma or Blood by Creatinine-based formula (CKD-EPI) 06/13/2024 09:48:45 24 Below low normal >=60 (mL/min) Final eGFR is calculated based on the CKD-EPI 2020 equation. Sodium 06/13/2024 09:48:45 128 Below low normal 135 -146 (mmol/L) Final Results rechecked Potassium 06/13/2024 09:48:45 4.2 3.5-5.1 (m mol/L) Final Cl 06/13/2024 09:48:45 89 Below low normal 98- 107 (mmol/L) Final CO2 06/13/2024 09:48:45 23 22-32 (mmo l/L) Final Anion gap 06/13/2024 09:48:45 16 Above high normal 7- 15 (mmol/L) Final Glucose 06/13/2024 09:48:45 132 Above high normal 70 -120 (mg/dL) Final Calcium 06/13/2024 09:48:45 9.7 8.4-10.2 ( mg/dL) Final Performing Location [facility] [address] [place] [address]
--- OUTSIDE RECORDS SUMMARY | 2024-08-26 02:27 | External Medical Summary | Summary of Care ---
Author Name Unknown Organization [facility] Address [address] [place] [address] Phone [phone] Care Team Providers Care Lead Installer Name Role Phone Igor Mcconnell DO Primary Care Provider [phone] Reason for Visit * Reason Onset Date Comments [facility]: Maintenance 06/06/2024 Encounter Details Date Type Department Care Team (Late st Contact Info) Description 06/06/2024 Telephone [facility], [place] [address] [place] [address] [phone] Cindi Sylvester, [place] [address] [place], [place] [phone] [facility]: Maintenance Allergies Active Allergy Reactions Criticality Noted Date Comments Metolazone Renal complications 11/10/2023 Note prior DTP with metolazone resulted in acute renal failure Other Allergy (See Comments) Rash Low 10/13/2022 1+ cocamidopropyl betaine Sglt2 Inhibitors Other (Please comment) High 09/04/2020 Genital infection Sulfa Antibiotics Rash 10/15/2016 documented as of this encounter (statuses as of 06/07/2024) Medications Aspirin 81 MG Tablet Take 1 [...] 025 Active Additional Information Patient taking differently: 90 Units Subcutaneous BID(Non-Specified), Reported on 05/30/2024 Torsemide 20 MG Oral Tablet (Demadex)Indicatio ns:Chronic [...] mg OralBID(Non-Specified), Morning and afternoon, Reported on 05/30/2024 Vitamin D 125 MCG (5000 UT) Oral [...] 11 4 1:20 PM EDT 02/16/20 Active Clotrimazole-Betam ethasone 1-0.05 % External Cream [...] 38 UNITS WITH DINNER PLUS CORRECTION PER [facility] OR DIRECTED UP TO 120 UNITS PER DAY 120 mL 3 4 7:52 AM EDT 03/21/20 Active DIURETIC TITRATION PLAN If no improvement on day 3, contact [facility] for possible home visit 1 Each 03/24/20 Active Evolocumab 140 MG/ML Subcutaneous Solution Auto-injector (Repatha SureClick)Indicati ons:Dyslipidemia, goal LDL below 100,Mixed dyslipidemia Inject 140 mg under the skin every 14 days. 6 mL 3 03/24/20 24 Active Unifine Pentips 31G X 8 MM (Insulin Pen Needle)Indications :Type 2 diabetes mellitus with hemoglobin A1c goal of less than 7.0% (HCC) USE TO INJECT INSULINS 5 TIMES DAILY 500 Each 3 4 7:46 AM EDT 04/18/20 Active Lfkju-5-mbcn Ethyl Esters 1 GM Oral Capsule (Lovaza) [...] as of this encounter (statuses as of 06/07/2024) Active Problems Patient Care Coordination No te Formatting of this note migh t be different from the original. Heart Failure Self-Management and Exacerbation Plan "RED FLAG" HF Symptoms: Leg Swelling Abdominal Bloating Increased dyspnea on exertion Increased shortness of breath at rest Orthopnea Remote Patient Monitoring Vendor: [facility] Device(s): Connected Scale Self [...] the Comments) Remote Patient Monitoring Vendor: [facility] Device(s): Connected Scale Self [...] Therapy: Carvedilol o ARIANNA Inhibitor/ARB Therapy: No RAIANNA/ARB/ARNI secondary to: Currently holding due to NEMESIO [...] as of this encounter (statuses as of 06/07/2024) Resolved Problems Problem Noted Date Diagnosed Date [...] has been better controlled recently. Monitor using [employer] Cindy. Assessment & Plan (12/19/2022 11:13 AM [...] 35.0 to 39.9 with serious comorbidity 04/30/2022 02 / Chronic kidney disease, stage 3b 03/17/2022 03/01/2024 [...] as of this encounter (statuses as of 06/07/2024) Immunizations Name Administration Dates Next Due COVID-19 mRNA, LNP-s, No Pre serve, 2-Dose Series (Moderna) 12/10/2020,11/12/2020 Hepatitis B, 20+ yrs 01/04/2018,08/03/2017,07/03 Pneumococcal Conjugate Vacci ne, 20-valent ([id number]) 06/09/2022 Pneumococcal Polysaccharide PPV23 (Pneumovax) 03/06/2020 RSV [...] encounter Miscellaneous Notes * Telephone Encounter - Cindi Sylvester OSA - 06/06/2024 9:38 AM EST Incoming call from pt. Stating he was supposed to receive a BP cuff. He said provider spoke to him about supplying one. I see two DME orders. Not seeing the BP cuff. Forward to AP to advise and do a new order for BP cuff. Once order is in the chart will submit to TH. documented in this encounter Plan of Treatment Upcoming Encounters Date Type Department Care Team (Late st Contact Info) Description 06/13/2024 11:15 AM EST Hospital Encounter ENDO OSS[facility], Endoscopy Room [facility] [address] [place] [phone] José Miguel Sifuentes MD [address] [place] [address] 06/13/2024 11:15 AM EST - 06/13/2024 11:45 AM EST Surgery ENDO OSS, Endoscopy Room [facility] [address] [place] [phone] José Miguel Sifuentes MD [address] [place] [address] COLONOSCOPY FLEXIBLE PROXIMAL DIAGNOSTIC 06/21/2024 2:30 PM EST Telemedicine Cardiology [address] [place] [address] [place], Pharmacist Cardiology [facility] [address] [place] [address] 06/28/2024 2:30 PM EST [facility] Visit [facility], [facility] 132 [facility] [place] [address] Love Stevens, ANNE MARIE 132 [place] [address] 07/01/2024 2:20 PM EST Office Visit Family Practice [address] [place] [address] 293 [place] [phone] Igor Mcconnell DO [address] [place] [address] 08/08/2024 9:30 AM EST Nurse Only Ancillary [address] [place] [address] [place], Nurse [address] [place] [address] 10/27/2024 1:00 PM EDT Office Visit [facility] [phone] Lindsey Sheikh CRNP 132 [facility] [address] 11/18/2024 2:00 PM EDT Office Visit Nephrology [address] [place] [address] ZeLuisa reyes PA-C [address] [place] [address] Scheduled Procedures Name Priority Associated Diagnoses Date/Ti [...] 08/16/2021, Additional history exists GFR 11/23/2024 05/26/2024, 11/0 02/2024, 04/13/2024, Additional history exists Hgb 05/13/2025 05/13/2024, 09/0 12/2023, 02/24/2024, Additional history exists PTH 05/13/2025 05/13/2024, 08/3 07/2021, 09/12/2020 Phosphate 05/13/2025 05/13/2024, 04/2 08/2023, 10/23/2023, Additional history exists Albumin/Creatinine Ratio 05/18/202505/18/2 [...] this encounter Medical Devices Implanted Type Area Printed Forms Proofreader Device Identifier Shelf Expiration Date Model / Serial / Lot Lens Intraoc 21.0 - [id number] - [id number] Implanted:Qty: 1 on 01/22/2017 by Cheko Mcnamara MD at OR [facility] Right: Eye [employer]OM[employer] 08/05/2021 [id number] / [id number] / [id number] Lens Intraoc 21.5 - [id number] - [id number] Implanted:Qty: 1 on 02/03/2017 by Cheko Mcnamara MD at OR [facility] Left: Eye BAUSCH [employer] LOMB 09/02/2021 [id number] / [id number] / [id number] documented as of this encounter Advance Directives [...] and were consensually agreed upon. Care Teams Lead Installer Relationship Specialty Start Date End Date Igor Mcconnell DO [address] [place] [address] PCP - General Internal Medicine 02/12/24 documented as of this encounter
--- OUTSIDE RECORDS SUMMARY | 2024-08-26 02:27 | External Medical Summary | Summary of Care ---
Author Name Unknown Organization [facility] Address [address] [place] [address] Phone [phone] Care Team Providers Care Egg Pasteurizer Name Role Phone Igor Mcconnell DO Primary Care Provider [phone] Reason for Visit * Reason Onset Date Comments Home Monitoring Orders Only 06/08/2024 Encounter Details Date Type Department Care Team (Latest Contact Info) Description 06/08/2024 Home Monitoring Care Coordination and Integration [address] [place] [address] Lucie Cao OSA [address], [place] [id number] Abnormal vital signs* Allergies Active Allergy Reactions Criticality Noted Date [...] 38 UNITS WITH DINNER PLUS CORRECTION PER [facility] OR DIRECTED UP TO 120 UNITS PER DAY 120 mL 3 4 7:52 AM EDT 03/21/20 Active DIURETIC TITRATION PLAN If no improvement on day 3, contact [facility] for possible home visit 1 Each 03/24/20 Active Evolocumab 140 MG/ML Subcutaneous Solution Auto-injector (Repatha SureClick)Indicati ons:Dyslipidemia, goal LDL below 100,Mixed dyslipidemia Inject 140 mg under the skin every 14 days. 6 mL 3 03/24/20 Active Additional Information Patient taking differently:140 mg Subcutaneous [id number],Om Fridays, Reported on 06/07/2024 Unifine Pentips 31G X 8 MM (Insulin Pen Needle)Indications :Type 2 diabetes mellitus with hemoglobin A1c goal of less than 7.0% (HCC) USE TO INJECT INSULINS 5 TIMES DAILY 500 Each 3 4 7:46 AM EDT 04/18/20 Active Ekgoz-7-ivbq Ethyl Esters 1 GM Oral Capsule (Lovaza) [...] at rest Orthopnea Remote Patient Monitoring Vendor: [facility] Device(s): Connected Scale [...] in the Comments) Remote Patient Monitoring Vendor: [employer] Device(s): Connected Scale Self - Management Plan Double dose of Torsemide for 3 days Exacerbation Plan BMP Chest X-Ray Additional Comments: Recommended using double torsemide for 3 days in a row, rather than 1 day like he has been doing Continue using [employer] scale Low sodium diet Assessment & Plan [...] has been better controlled recently. Monitor using Draftsterstyle Cindy. Assessment & Plan (12/19/2022 11:13 AM [...] yrs 01/04/2018,08/03/2017,07/03 Pneumococcal Conjugate Vacci ne, 20-valent ([id number]) 06/09/2022 Pneumococcal Polysaccharide PPV23 (Pneumovax) 03/06/2020 RSV [...] Notes * Lucie Cao OSA - 06/08/2024 8:18 AM EST Per an order the member is supposed to be enrolled in TATI Cuff, Scale and Pulse Ox, however member is currently enrolled in with just Scale and Pulse Ox: Message Patient is already enrolled with [facility] [employer]. He does have a scale and a [...] member currently shows in as: Tony Delong [id number] Feb, SCALE O2 Jun 3, 9:41am Name Tony Delong Date of Feb, (age 64) Admission date Jun 01, 7:38am (7 days) Kit name - Preferred language Uzbek ([place]) Contact number Patient Cameron Number Patient care address [address] [place] [address] [place] [address] Location [facility] Care provider Love stevens Patient status -- Program [facility] Population [facility] [place] Department -- Primary diagnoses for monitoring Vital Sign Trending Tony Delong: Kit Base Kit Assign kit narrow chive ten Nonin 3230 Pulse Oximeter Nonin 3230 Pulse Oximeter [id number] Scales Scales [id number] Remove narrow chive ten Personal Smartphone or Tablet BYProximagen Patient Cameron Phone number: Resend Invite Edit Discharge A note was provided to during the disenroll that we are disenrolling to reenroll with the BP Cuff Addition and also made note of the current kit the member has: narrow chive ten documented in this encounter Plan of Treatment Upcoming Encounters Date Type Department Care Team (Late st Contact Info) Description 06/13/2024 11:15 AM EST Hospital Encounter ENDO OSSC, Endoscopy Room [facility] [address] [place] [phone] José Miguel Sifuentes MD [address] [place] [address] 06/13/2024 11:15 AM EST - 06/13/2024 11:45 AM EST Surgery ENDO OSSC, Endoscopy Room [facility] [address] [place] [phone] José Miguel Sifuentes MD [address] [place] [address] COLONOSCOPY FLEXIBLE PROXIMAL DIAGNOSTIC 06/21/2024 2:30 PM EST Telemedicine Cardiology [facility], [address] [place] [address] [facility], Pharmacist Cardiology [facility] [address] [place] [address] 06/28/2024 2:30 PM EST [facility] Visit [facility], [facility] [address] Love Stevens, RN 132 [place] [address] 07/01/2024 2:20 PM EST Office Visit Family Practice [address] [place] [address] 293 [place] [address] Igor Mcconnell DO [address] [place] [address] 08/08/2024 9:30 AM EST Nurse Only Ancillary [address] [place] [address] [place], Nurse [address] [place] [address] 10/27/2024 1:00 PM EDT Office Visit [facility] Disorders Ctr [facility] 132 [place] [phone] Lindsey Sheikh CRNP 132 [place] [address] 11/18/2024 2:00 PM EDT Office Visit Nephrology [address] [place] [address] Zemaitis, Luisa Guzman PA-C [address] [facility] [place] [address] Scheduled Procedures Name Priority Associated Diagnoses Date/Ti [...] this encounter Medical Devices Implanted Type Area Credit Reporter Device Identifier Shelf Expiration Date Model / Serial / Lot Lens Intraoc 21.0 - [id number] - [id number] Implanted:Qty: 1 on 01/22/2017 by Cheko Mcnamara MD at OR [facility] Right: Eye BAUSCH & LOMB 08/05/2021 [id number] / [id number] / [id number] Lens Intraoc 21.5 - [id number] - [id number] Implanted:Qty: 1 on 02/03/2017 by Cheko Mcnamara MD at OR [facility] Left: Eye BAUSCH & LOMB 09/02/2021 [id number] / [id number] / [id number] documented as of this encounter Visit Diagnoses Diagnosis Hypertensive 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 (HCC)- Primary CHAPINCITO on CPAP Obstructive sleep apnea (adult) (pediatric) Type 2 diabetes mellitus with stage 3b chronic kidney disease, with long-term current use of insulin ([facility]) Advanced care planning/counseling discussion- Primary Other specified counseling Hypertensive 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 (HCC) [place]APIN[place]O on CPAP Obstructive sleep apnea (adult) (pediatric) Mixed dyslipidemia Mixed hyperlipidemia Type 2 diabetes mellitus with hemoglobin A1c goal of less than 8.0% ([facility]) Arreola's esophagus with high grade dysplasia Arreola's esophagus Hypertensive 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 (HCC)- Primary Type 2 diabetes mellitus with stage 3b chronic kidney disease, with long-term current use of insulin ([facility]) Arreola's esophagus with high grade dysplasia Arreola's [...] right eye and macular edema, unspecified whether bed bug exterminator insulin use (HCC) Chronic obstructive pulmonary disease, unspecified COPD type (HCC) Sacroiliitis (HCC) Sacroiliitis, not elsewhere classified Other specified peripheral vascular diseases (HCC) Coronary artery calcification seen on CT scan Mixed dyslipidemia Mixed hyperlipidemia Abnormal vital signs- Primary Special screening for malignant neoplasms, colon [...] and were consensually agreed upon. Care Teams Egg Pasteurizer Relationship Specialty Start Date End Date Igor Mcconnell DO [address] [place] [address] PCP - General Internal Medicine 02/12/24 documented as of this encounter
--- OUTSIDE RECORDS SUMMARY | 2024-08-26 02:27 | External Medical Summary | Summary of Care ---
Author Name Unknown Organization [facility] Address [address] [facility] [address] Phone [phone] Care Team Providers Care Merchandise Planning Manager Name Role Phone Igor Mcconnell DO Primary Care Provider [phone] Reason for Visit * Reason Onset Date Comments [facility]: Maintenance 06/07/2024 Encounter Details Date Type Department Care Team (Late st Contact Info) Description 06/07/2024 9:00 AM EST Scheduled Telephone [facility], [facility] [address] [place] [address] Coordinator, [facility] [address] [place] [address] Allergies Active Allergy Reactions Criticality Noted Date [...] Additional Information Patient taking differently:140 mg Subcutaneous J4NYXUX,Om Fridays, Reported on 06/07/2024 Unifine Pentips 31G X 8 MM (Insulin Pen Needle)Indications :Type 2 diabetes mellitus with hemoglobin A1c goal of less than 7.0% (HCC) USE TO INJECT INSULINS 5 TIMES DAILY 500 Each 3 4 7:46 AM EDT 04/18/20 Active Aanux-7-pnwi Ethyl Esters 1 GM Oral Capsule (Lovaza) [...] has been better controlled recently. Monitor using Miyowastyle Cindy. Assessment & Plan (12/19/2022 11:13 AM [...] yrs 01/04/2018,08/03/2017,07/03 Pneumococcal Conjugate Vacci ne, 20-valent (Syctmsh90) 06/09/2022 Pneumococcal Polysaccharide PPV23 (Pneumovax) 03/06/2020 RSV [...] Telephone Encounter - Alexandra Mcgraw LPN - 06/07/2024 10:02 AM EST Images from the original note were not included. Pt on for f/u call today to check if CHM has been received and is transmitting. D/c [facility] if CHM is transmitting Review of CHM pt was assigned a peripheral kit only with scale and pulse ox. Readings are transmitting daily since 06/06 Call to pt no answer left VM making pt aware [facility] will be discharged at this time since CHM is up and running. Pt will be contacted by [facility] for picker packer/shipping instructions. documented in this encounter Plan of Treatment Upcoming Encounters Date Type Department Care Team (Late st Contact Info) Description 06/07/2024 2:00 PM EST Telemedicine Cardiology [facility], [place] [address] [place] [address] [facility], Pharmacist Cardiology [facility] [address] [place] [address] Arrived 06/13/2024 11:15 AM EST Hospital Encounter ENDO OSSC, Endoscopy Room [facility] [address] [place] [phone] José Miguel Sifuentes MD [address] [place] [address] 06/13/2024 11:15 AM EST - 06/13/2024 11:45 AM EST Surgery ENDO OSS, Endoscopy Room [facility] [address] [place] [phone] José Miguel Sifuentes MD [address] [place] [address] COLONOSCOPY FLEXIBLE PROXIMAL DIAGNOSTIC 06/28/2024 2:30 PM EST [facility] Visit [facility] 132 [facility] [place] [address] Love Stevens RN 132 [facility] [place] [address] 07/01/2024 2:20 PM EST Office Visit Family Practice [address] [place] [address] 293 [place] [phone] Igor Mcconnell, 293 [place] [address] 08/08/2024 9:30 AM EST Nurse Only Ancillary [address] [place] [address] [place], Nurse [address] [place] [address] 10/27/2024 1:00 PM EDT Office Visit Sleep Disorders Ctr [facility] 132 [facility] [place] [phone] Lindsey Sheikh CRNP [address] [place] [address] 11/18/2024 2:00 PM EDT Office Visit Nephrology [address] [place] [address] Luisa Ching PA-C [address] [place] [address] Scheduled Procedures Name Priority Associated Diagnoses Date/Ti [...] 08/16/2021, Additional history exists GFR 11/23/2024 05/26/2024, 1102/2024, 04/13/2024, Additional history exists Hgb 05/13/2025 05/13/2024, [...] this encounter Medical Devices Implanted Type Area Community Support Professional Device Identifier Shelf Expiration Date Model / Serial / Lot Lens Intraoc 21.0 - [id number] - [id number] Implanted:Qty: 1 on 01/22/2017 by Cheko Mcnamara MD at OR [facility] Right: Eye BAUSCH & LOMB 08/05/2021 [id number] / [id number] / [id number] Lens Intraoc 21.5 - [id number] - [id number] Implanted:Qty: 1 on 02/03/2017 by Cheko Mcnamara MD at OR [facility] Left: Eye BAUSCH & LOMB 09/02/2021 [id number] / [id number] / [id number] documented as of this encounter Advance Directives [...] and were consensually agreed upon. Care Teams Merchandise Planning Manager Relationship Specialty Start Date End Date Igor Mcconnell DO [address] [place] [address] PCP - General Internal Medicine 02/12/24 documented as of this encounter
--- OUTSIDE RECORDS SUMMARY | 2024-08-26 02:27 | External Medical Summary | Summary of Care ---
Author Name Unknown Organization [facility] Address [address] [place] [address] Phone [phone] Care Team Providers Care Newborn Photographer Name Role Phone Igor Mcconnell DO Primary Care Provider [phone] Reason for Visit * Reason Comments Dosage Adjustment Via Phone (anticoag Cl inic) Hypercholesterolemia Encounter Details Date Type Department Care Team (Late st Contact Info) Description 06/07/2024 2:00 PM EST Telemedicine Cardiology [facility], [place] [address] [place], [place] [id number] [place] [address], Pharmacist Cardiology [facility] [address] [place], [place] [phone] Dyslipidemia, goal LDL below 100* Allergies Active [...] If no improvement on day 3, contact [facility] for possible home visit 1 Each 03/24/20 Active Evolocumab 140 MG/ML Subcutaneous Solution Auto-injector (Repatha SureClick)Indicati ons:Dyslipidemia, goal LDL below 100,Mixed dyslipidemia Inject 140 mg under the skin every 14 days. 6 mL 3 03/24/20 Active Additional Information Patient taking differently:140 mg Subcutaneous A2SOZVT,Om Fridays, Reported on 06/07/2024 Unifine Pentips 31G X 8 MM (Insulin Pen Needle)Indications :Type 2 diabetes mellitus with hemoglobin A1c goal of less than 7.0% (HCC) USE TO INJECT INSULINS 5 TIMES DAILY 500 Each 3 4 7:46 AM EDT 04/18/20 Active Orptq-9-xtqh Ethyl Esters 1 GM Oral Capsule (Lovaza) [...] at rest Orthopnea Remote Patient Monitoring Vendor: [facility] [...] in the Comments) Remote Patient Monitoring Vendor: [employer] Device(s): Connected Scale Self - Management Plan [...] has been better controlled recently. Monitor using FabZat Cindy. Assessment & Plan (12/19/2022 11:13 AM [...] yrs 01/04/2018,08/03/2017,07/03 Pneumococcal Conjugate Vacci ne, 20-valent (Hyurohd61) 06/09/2022 Pneumococcal Polysaccharide PPV23 (Pneumovax) 03/06/2020 RSV [...] this encounter Progress Notes * Garima Prado, [facility] - 06/07/2024 2:07 PM EST PHARMACY CHRONIC DISEASE MANAGEMENT - [...] average 40 minutes per session and involving ivshnmbl-hq-icktlrto intensity physical activity. Patient Active Problem List [...] 02/12/2024 02:38 PM LDL CHOLESTEROL (CALCULATED) - [facility] 152 (H) [...] 12/11/2016 12:00 AM No components found for: "[id number]" Latest Reference Range & Units 03/11/24 08:04 [...] target <55 per ADA (at least <70) Reviewed most recent lipid panel results with [...] 2-4 weeks of starting pravastatin (TE 05/31/24). Discussed this with patient and he is agreeable, so long as PCP Dr. Mcconnell and dissolver operator Dr. Magallon are on board as well. [facility]TM will loop in patient's providers for input. Coronary Artery Calcifications - Per CT Chest 11/2022 and CXR 07/2019 Uncontrolled Type 2 Diabetes - HbA1c goal <7% - Follows with MTM 64 fwd [place] Nonalcoholic Fatty Liver Disease - [place] 05/2019 shows enlarged liver with fat infiltration Hypertension Obesity Chronic Diastolic CHF Medication changes: None Labs Due: None Follow up: 2 weeks I spent a total of 10-19 minutes (exact time 10 mins) on the date of service in preparation, delivery, and documentation of the care provided to Tony Delong excluding any time spent in the performance of separately billed services or time spent by another provider/QHP. Garima Prado RPh Clinical Pharmacist 2:12 PM, 06/07/24 documented in this encounter Plan of Treatment Upcoming Encounters Date Type Department Care Team (Late st Contact Info) Description 06/13/2024 11:15 AM EST Hospital Encounter ENDO OSSC, Endoscopy Room [facility] [place] [phone] José Miguel [facility]ifuentes MD [facility] [place] [address] 06/13/2024 11:15 AM EST - 06/13/2024 11:45 AM EST Surgery ENDO OSS, Endoscopy Room [facility] [place] [phone] José Miguel Sifuentes MD [address] [place] [address] COLONOSCOPY FLEXIBLE PROXIMAL DIAGNOSTIC 06/21/2024 2:30 PM EST Telemedicine Cardiology [facility] [address] [place] [address] [place] [address], Pharmacist Cardiology [place] [address] [place] [address] 06/28/2024 2:30 PM EST [facility], [facility] 132 [facility] [place] [address] Love Stevens, ANNE MARIE 132 [facility] [place] [address] 07/01/2024 2:20 PM EST Office Visit Family Practice [address] [place] [address] 293 [place] [address] Igor Mcconnell, 293 [place] [address] 08/08/2024 9:30 AM EST Nurse Only Ancillary [place] [place] [address] [place], Nurse [address] [place] [address] 10/27/2024 1:00 PM EDT [facility] [address] [place] [phone] Lindsey Sheikh CRNP [address] [place] [address] 11/18/2024 2:00 PM EDT Office Visit Nephrology [address] [place] [address] ZemaLuisa leslie PA-C [address] [place] [address] Scheduled Procedures Name Priority Associated Diagnoses Date/Ti [...] 04/13/2024, Additional history exists Hgb 05/13/2025 05/13/2024, 0912/2023, 02/24/2024, Additional history exists PTH 05/13/2025 05/13/2024, 3 [...] this encounter Medical Devices Implanted Type Area Pencil Inspector Device Identifier Shelf Expiration Date Model / Serial / Lot Lens Intraoc 21.0 - [id number] - [id number] Implanted:Qty: 1 on 01/22/2017 by Cheko Mcnamara MD at OR [facility] Right: Eye BAUSCH & LOMB 08/05/2021 [id number] / [id number] / [id number] Lens Intraoc 21.5 - [id number] - [id number] Implanted:Qty: 1 on 02/03/2017 by Cheko Mcnamara MD at OR [facility] Left: Eye BAUSCH & LOMB 09/02/2021 [id number] / [id number] / [id number] documented as of this encounter Visit Diagnoses [...] right eye and macular edema, unspecified whether long wall shear operator insulin use (HCC) Chronic obstructive pulmonary disease, unspecified COPD type (HCC) Sacroiliitis (HCC) Sacroiliitis, not elsewhere classified Other specified peripheral vascular diseases (HCC) Coronary artery calcification seen on CT scan Mixed dyslipidemia Mixed hyperlipidemia Dyslipidemia, goal LDL below 100- Primary Other and unspecified hyperlipidemia Special screening for malignant neoplasms, colon [...] and were consensually agreed upon. Care Teams Newborn Photographer Relationship Specialty Start Date End Date Igor Mcconnell DO [address] [place] [address] PCP - General Internal Medicine 02/12/24 documented as of this encounter
--- OUTSIDE RECORDS SUMMARY | 2024-08-26 02:27 | External Medical Summary | Summary of Care ---
Author Name Unknown Organization [facility] Address [address] [place] [address] Phone [phone] Care Team Providers Care Manager Distribution Name Role Phone Igor Mcconnell DO Primary Care Provider [phone] Encounter Details Date Type Department Care Team (Late st Contact Info) Description 05/31/2024 Telephone Cardiology [facility] [address] [place] [address] [facility] [address] Allergies Active Allergy Reactions Criticality Noted Date [...] Additional Information Patient taking differently:140 mg Subcutaneous [id number],Om Fridays, Reported on 06/07/2024 Unifine Pentips 31G X 8 MM (Insulin Pen Needle)Indications :Type 2 diabetes mellitus with hemoglobin A1c goal of less than 7.0% (HCC) USE TO INJECT INSULINS 5 TIMES DAILY 500 Each 3 4 7:46 AM EDT 04/18/20 Active Ipden-6-uzds Ethyl Esters 1 GM Oral Capsule (Lovaza) [...] rest Orthopnea Remote Patient Monitoring Vendor: [facility] Device(s): Connected Scale Self - Management Plan [...] in the Comments) Remote Patient Monitoring Vendor: [employer] Device(s): Connected Scale Self - Management [...] has been better controlled recently. Monitor using [employer] Cindy. Assessment & Plan (12/19/2022 11:13 AM [...] yrs 01/04/2018,08/03/2017,07/03 Pneumococcal Conjugate Vacci ne, 20-valent ([id number]) 06/09/2022 Pneumococcal Polysaccharide PPV23 (Pneumovax) 03/06/2020 RSV [...] encounter Miscellaneous Notes * Telephone Encounter - Igor Mcconnell DO - 06/07/2024 9:22 PM EST I have no objection to trial of Pravastatin 20 mg daily with close follow up of LFTs. * Telephone Encounter - Garima Prado RP - 06/03/2024 12:[address] Mcconnell, Please see recommendation from Dr. Diego, lipid specialist regarding trial of pravastatin with repeat LFTs: "I reviewed patient's chart. His LFTs are not significantly elevated, unlikely to be statin induced. You can try rechallenging him with pravastatin 20 mg daily, rechecking LFTs within 2-4 weeks of starting pravastatin. If compliance with Repatha is an issue, switching to Inclisiran with supervised in-clinic administration would be another option. " I did speak with patient today and confirmed he is fully compliant with Repatha, reports never missing doses. Would you be agreeable to this plan? Thank you, Garima Prado, PharmD Clinical Pharmacist - Department Assistant [facility] 06/03/2024 1:24 PM * Telephone Encounter - Garima Prado RPh - 05/31/2024 10:22 AM EST Dylan Diego, This patient was referred to [facility] for lipid management. Was unable to reach patient for appointment today but per chart review patient has history of LFT elevations on Zetia and statins. LDL in February was 83 (ideal target <55 for CAC and T2DM). LFTs had normalized and thus patient was started back on Crestor 5 mg daily in March, but LFTs bumped up again and Crestor was discontinued after a few weeks of therapy. Most recently, LDL further uncontrolled at 126 while on Repatha monotherapy. Avoiding statins and Zetia d/t liver enzyme concern. Bempedoic acid also not ideal option given patient history of gout and elevated UA (9.9 in March). I would appreciate any input you have regarding next steps. Would referral to your lipid clinic be appropriate? Thank you! Garima Prado, PharmD Clinical Pharmacist - Department Assistant [facility] 05/31/2024 11:53 AM documented in this encounter Plan of Treatment Upcoming Encounters Date Type Department Care Team (Late st Contact Info) Description 06/13/2024 11:15 AM EST Hospital Encounter ENDO OSS[facility], Endoscopy Room [facility] 132 [place] [phone] José Miguel Sifuentes MD [address] [place] [address] 06/13/2024 11:15 AM EST - 06/13/2024 11:45 AM EST Surgery ENDO OSSC, Endoscopy Room [facility] 132 [place] [phone] José Miguel Sifuentes MD [address] [place] [address] COLONOSCOPY FLEXIBLE PROXIMAL DIAGNOSTIC 06/21/2024 2:30 PM EST Telemedicine Cardiology [address] [address] [place], Pharmacist Cardiology [facility] [address] [facility] [place], [place] [address] 06/28/2024 2:30 PM EST [facility] 132 [facility] [place] [address] Love Stevens, ANNE MARIE 132 [facility] [place] [address] 07/01/2024 2:20 PM EST Office Visit Family Practice [address] [place] [address] 293 [place] [address] Igor Mcconnell DO 293 [place] [address] 08/08/2024 9:30 AM EST Nurse Only Ancillary [address] [place] [address] [place], Nurse [address] [place] [address] 10/27/2024 1:00 PM EDT Office Visit [facility] Ctr [facility] 132 [facility] [phone] Lindsey Sheikh CRNP 132 [facility] [place] [address] 11/18/2024 2:00 PM EDT Office Visit Nephrology [address] [place] [address] ZemaLuisa leslie PA-C [address] [place] [place] [address] Scheduled Procedures Name Priority Associated Diagnoses Date/Ti [...] Depression Screening 08/05/2024 08/05/2023 HbA1c 08/14/2024 02/12/2024, 041 01/2024, 06/11/2023, Additional history exists Diabetic Foot [...] encounter Medical Devices Implanted Type Area Community Education Coordinator Device Identifier Shelf Expiration Date Model / Serial / Lot Lens Intraoc 21.0 - [id number] - [id number] Implanted:Qty: 1 on 01/22/2017 by Cheko Mcnamara MD at OR [facility] Right: Eye BAUSCH & LOMB 08/05/2021 [id number] / [id number] / [id number] Lens Intraoc 21.5 - [id number] - [id number] Implanted:Qty: 1 on 02/03/2017 by Cheko Mcnamara MD at OR [facility] Left: Eye BAUSCH & LOMB 09/02/2021 [id number] / [id number] / [id number] documented as of this encounter Advance Directives [...] were consensually agreed upon. Care Teams Manager Distribution Relationship Specialty Start Date End Date Igor Mcconnell DO [address] [facility] [place] [address] PCP - General Internal Medicine 02/12/24 documented as of this encounter
--- OUTSIDE RECORDS SUMMARY | 2024-08-26 02:28 | External Medical Summary | Summary of Care ---
Author Name Unknown Organization [facility] Address [address] [facility] [place] [address] Phone [phone] Care Team Providers Care Flavoring Oil Filterer Name Role Phone Igor Mcconnell DO Primary Care Provider [phone] Reason for Visit * Reason Onset Date Comments [facility]: Maintenance 06/05/2024 Encounter Details Date Type Department Care Team (Late st Contact Info) Description 06/05/2024 1:30 PM EST Scheduled Telephone [facility], [facility] 132 [facility] [place] [address] [facility], Nurse [facility] 132 [facility] [place] [address] Allergies Active Allergy Reactions Criticality Noted Date Comments Metolazone Renal complications 11/10/2023 Note prior DTP with metolazone resulted in acute renal failure Other Allergy (See Comments) Rash Low 10/13/2022 1+ cocamidopropyl betaine Sglt2 Inhibitors Other (Please comment) High 09/04/2020 Genital infection Sulfa Antibiotics Rash 10/15/2016 documented as of this encounter (statuses as of 06/05/2024) Medications Aspirin 81 MG Tablet Take 1 [...] 38 UNITS WITH DINNER PLUS CORRECTION PER [facility] OR DIRECTED UP TO [...] 3 4 7:46 AM EDT 04/18/20 Active Tqiwl-7-maqa Ethyl Esters 1 GM Oral Capsule (Lovaza) [...] as of this encounter (statuses as of 06/05/2024) Active Problems Patient Care Coordination No te Formatting of this note migh t be different from the original. Heart Failure Self-Management and Exacerbation Plan "RED FLAG" HF Symptoms: Leg Swelling Abdominal Bloating Increased dyspnea on exertion Increased shortness of breath at rest Orthopnea Remote Patient Monitoring Vendor: [facility] [...] as of this encounter (statuses as of 06/05/2024) Resolved Problems Problem Noted Date Diagnosed Date [...] has been better controlled recently. Monitor using [employer] Cindy. Assessment & Plan (12/19/2022 11:13 AM [...] as of this encounter (statuses as of 06/05/2024) Immunizations Name Administration Dates Next Due COVID-19 mRNA, LNP-s, No Pre serve, 2-Dose Series (Moderna) 12/10/2020,11/12/2020 Hepatitis B, 20+ yrs 01/04/2018,08/03/2017,07/03 Pneumococcal Conjugate Vacci ne, 20-valent ([id number]) 06/09/2022 Pneumococcal Polysaccharide PPV23 (Pneumovax) 03/06/2020 RSV [...] Telephone Encounter - Harmony Singh RN - 06/05/2024 10:16 AM EST Images from the original note were not included. Pt called for f/u of weight gain yesterday Took Metolazone dose and weight came down 2.9 No answer on pt's number Left message to return call. documented in this encounter Plan of Treatment Upcoming Encounters Date Type Department Care Team (Late st Contact Info) Description 06/07/2024 9:00 AM EST Scheduled Telephone [facility], [facility] 132 [place] [address] Coordinator, [facility] 132 [place] [address] 06/07/2024 2:00 PM EST Telemedicine Cardiology [facility] [place] [address] [facility] [address] [place] [address], Pharmacist Cardiology [facility] [address] [place] [address] 06/13/2024 11:15 AM EST Hospital Encounter ENDO [facility], Endoscopy Room [facility] 132 [place] [phone] José Miguel Sifuentes MD 132 [facility] [place] [address] 06/13/2024 11:15 AM EST - 06/13/2024 11:45 AM EST Surgery ENDO [facility], Endoscopy Room [facility] [address] [place] [phone] José Miguel Sifuentes MD 132 [facility] [place] [address] COLONOSCOPY FLEXIBLE PROXIMAL DIAGNOSTIC 06/28/2024 2:30 PM EST Home Visit [facility], [facility] [address] [place] [address] Love Stevens RN 132 [facility] [place] [address] 07/01/2024 2:20 PM EST Office Visit Family Practice [address] [place] [address] 293 [place] [address] Igor Mcconnell DO 293 [facility] [place] [address] 08/08/2024 9:30 AM EST Nurse Only Ancillary [address] [place] [address] [place], Nurse [address] [place] [address] 10/27/2024 1:00 PM EDT Office Visit Sleep Disorders Ctr [facility] 132 [facility] [place] [phone] Lindsey Sheikh CRNP 132 [facility] [place] [address] 11/18/2024 2:00 PM EDT Office Visit Nephrology [address] [place] [address] ZemaLuisa leslie PA-C [address] [place] [address] Scheduled Procedures Name Priority Associated Diagnoses Date/Ti [...] 04/13/2024, Additional history exists Hgb 05/13/2025 05/13/2024, 090 [...] this encounter Medical Devices Implanted Type Area Directory Operator Device Identifier Shelf Expiration Date Model / Serial / Lot Lens Intraoc 21.0 - [id number] - [id number] Implanted:Qty: 1 on 01/22/2017 by Cheko Mcnamara MD at OR [facility] Right: Eye BAUSCH & LOMB 08/05/2021 [id number] / [id number] / [id number] Lens Intraoc 21.5 - [id number] - [id number] Implanted:Qty: 1 on 02/03/2017 by Cheko Mcnamara MD at OR [facility] Left: Eye BAUSCH & LOMB 09/02/2021 [id number] / [id number] / [id number] documented as of this encounter Advance Directives [...] and were consensually agreed upon. Care Teams Flavoring Oil Filterer Relationship Specialty Start Date End Date Igor Mcconnell DO 293 [place] [address] PCP - General Internal Medicine 02/12/24 documented as of this encounter
--- OUTSIDE RECORDS SUMMARY | 2024-08-26 02:28 | External Medical Summary | Summary of Care ---
Author Name Unknown Organization [facility] Address [address] [facility] [address] Phone [phone] Care Team Providers Care Associate Dean Of Women Name Role Phone Igor Mcconnell DO Primary Care Provider [phone] Reason for Visit * Reason Onset Date Comments [facility]: Maintenance 06/07/2024 Encounter Details Date Type Department Care Team (Late st Contact Info) Description 06/07/2024 9:00 AM EST Scheduled Telephone [facility], [facility] [address] [place] [address] Coordinator, [facility] [address] [place] [address] Allergies Active Allergy Reactions Criticality Noted Date [...] 38 UNITS WITH DINNER PLUS CORRECTION PER [facility] OR DIRECTED UP TO 120 UNITS PER DAY 120 mL 3 4 7:52 AM EDT 03/21/20 Active DIURETIC TITRATION PLAN If no improvement on day 3, contact [facility] for possible home visit 1 Each 03/24/20 Active Evolocumab 140 MG/ML Subcutaneous Solution Auto-injector (Repatha SureClick)Indicati ons:Dyslipidemia, goal LDL below 100,Mixed dyslipidemia Inject 140 mg under the skin every 14 days. 6 mL 3 03/24/20 24 Active Additional Information Patient taking differently:140 mg Subcutaneous [id number],Om Fridays, Reported on 06/07/2024 Unifine Pentips 31G X 8 MM (Insulin Pen Needle)Indications :Type 2 diabetes mellitus with hemoglobin A1c goal of less than 7.0% (HCC) USE TO INJECT INSULINS 5 TIMES DAILY 500 Each 3 4 7:46 AM EDT 04/18/20 Active Mslfv-5-uyoe Ethyl Esters 1 GM Oral Capsule (Lovaza) [...] at rest Orthopnea Remote Patient Monitoring Vendor: [facility] Device(s): Connected Scale Self - [...] in the Comments) Remote Patient Monitoring Vendor: [facility] Device(s): Connected Scale Self - [...] ARIANNA/ARB/ARNI secondary to: Currently holding due to NEMESOI o Diuretic therapy: Torsemide Metolazone Self - [...] has been better controlled recently. Monitor using B[employer] Cindy. Assessment & Plan (12/19/2022 11:13 AM [...] yrs 01/04/2018,08/03/2017,07/03 Pneumococcal Conjugate Vacci ne, 20-valent ([id number]) 06/09/2022 Pneumococcal Polysaccharide PPV23 (Pneumovax) 03/06/2020 RSV [...] and running. 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 documented in this encounter Plan of Treatment Upcoming Encounters Date Type Department Care Team (Late st Contact Info) Description 06/07/2024 2:00 PM EST Telemedicine Cardiology [facility] [place] [address] [place] [address] [facility], Pharmacist Cardiology [facility] [address] [place] [address] Arrived 06/13/2024 11:15 AM EST Hospital Encounter ENDO OSSC, Endoscopy Room [facility] [address] [place] [phone] José Miguel Sifuentes MD [address] [place] [address] 06/13/2024 11:15 AM EST - 06/13/2024 11:45 AM EST Surgery ENDO OSS, Endoscopy Room [facility] [address] [place] [phone] José Miguel Sifuentes MD [address] [place] [address] COLONOSCOPY FLEXIBLE PROXIMAL DIAGNOSTIC 06/28/2024 2:30 PM EST [facility] Visit [facility] 132 [facility] [place] [address] Love Stevens RN 132 [facility] [place] [address] 07/01/2024 2:20 PM EST Office Visit Family Practice [address] [place] [address] [facility] [place] [address] Igor Mcconnell, 293 [place] [address] 08/08/2024 9:30 AM EST Nurse Only Ancillary [address] [place] [address] [place], Nurse [address] [place] [address] 10/27/2024 1:00 PM EDT Office Visit [facility] Disorders Ctr [facility] 132 [facility] [place] [phone] Lindsye Sheikh CRNP [address] [place] [address] 11/18/2024 2:00 PM EDT Office Visit Nephrology [address] [place] [address] Luisa Ching PA-C [address] [place] [address] Scheduled Procedures Name Priority Associated Diagnoses Date/Ti [...] this encounter Medical Devices Implanted Type Area Final Inspector Device Identifier Shelf Expiration Date Model / Serial / Lot Lens Intraoc 21.0 - [id number] - [id number] Implanted:Qty: 1 on 01/22/2017 by Cheko Mcnamara MD at OR [facility] Right: Eye BAUSCH & LOMB 08/05/2021 [id number] / [id number] / [id number] Lens Intraoc 21.5 - [id number] - [id number] Implanted:Qty: 1 on 02/03/2017 by Cheko Mcnamara MD at OR [facility] Left: Eye BAUSCH & LOMB 09/02/2021 [id number] / [id number] / [id number] documented as of this encounter Advance Directives [...] and were consensually agreed upon. Care Teams Associate Dean Of Women Relationship Specialty Start Date End Date Igor Mcconnell DO 293 [place] [address] PCP - General Internal Medicine 02/12/24 documented as of this encounter
--- OUTSIDE RECORDS SUMMARY | 2024-08-26 02:28 | External Medical Summary | Summary of Care ---
Author Name Unknown Organization [facility] Address [address] [facility] [place] [address] Phone [phone] Care Team Providers Care Security Inspector Name Role Phone Igor Mcconnell DO Primary Care Provider [phone] Reason for Visit * Reason Onset Date Comments Follow Up 06/04/2024 Encounter Details Date Type Department Care Team (Late st Contact Info) Description 06/04/2024 1:30 PM EST Scheduled Telephone [facility] 132 [facility] [place] [address] [facility], Nurse [facility] 132 [facility] [place] [address] Allergies Active Allergy Reactions Criticality Noted Date Comments Metolazone Renal complications 11/10/2023 Note prior DTP with metolazone resulted in acute renal failure Other Allergy (See Comments) Rash Low 10/13/2022 1+ cocamidopropyl betaine Sglt2 Inhibitors Other (Please comment) High 09/04/2020 Genital infection Sulfa Antibiotics Rash 10/15/2016 documented as of this encounter (statuses as of 06/04/2024) Medications Aspirin 81 MG Tablet Take 1 [...] WITH DINNER PLUS CORRECTION PER [facility] OR DIRECTED UP TO 120 UNITS PER DAY 120 mL 3 4 7:52 AM EDT 03/21/20 Active DIURETIC TITRATION PLAN If no improvement on day 3, contact [facility] for possible home visit 1 Each 03/24/20 Active Evolocumab 140 MG/ML Subcutaneous Solution Auto-injector (Repatha SureClick)Indicati ons:Dyslipidemia, goal LDL below 100,Mixed dyslipidemia Inject 140 mg under the skin every 14 days. 6 mL 03/24/20 Active Unifine Pentips 31G X 8 MM (Insulin Pen Needle)Indications :Type 2 diabetes mellitus with hemoglobin A1c goal of less than 7.0% (HCC) USE TO INJECT INSULINS 5 TIMES DAILY 500 Each 3 4 7:46 AM EDT 04/18/20 Active Uixin-7-slrf Ethyl Esters 1 GM Oral Capsule (Lovaza) [...] as of this encounter (statuses as of 06/04/2024) Active Problems Patient Care Coordination No te Formatting of this note migh t be different from the original. Heart Failure Self-Management and Exacerbation Plan "RED FLAG" HF Symptoms: Leg Swelling Abdominal Bloating Increased dyspnea on exertion Increased shortness of breath at rest Orthopnea Remote Patient Monitoring Vendor: [facility] [...] when watching TV") Medication Regimen: o Beta Irtchie Therapy: Carvedilol o ARIANNA Inhibitor/ARB Therapy: No [...] as of this encounter (statuses as of 06/04/2024) Resolved Problems Problem Noted Date Diagnosed Date [...] has been better controlled recently. Monitor using [employer] Cindy. Assessment & Plan (12/19/2022 11:13 AM [...] as of this encounter (statuses as of 06/04/2024) Immunizations Name Administration Dates Next Due COVID-19 mRNA, LNP-s, No Pre serve, 2-Dose Series (Moderna) 12/10/2020,11/12/2020 Hepatitis B, 20+ yrs 01/04/2018,08/03/2017,07/03 Pneumococcal Conjugate Vacci ne, 20-valent ([id number]) 06/09/2022 Pneumococcal Polysaccharide PPV23 (Pneumovax) 03/06/2020 RSV [...] Miscellaneous Notes * Telephone Encounter - Delia Delcid RN - 06/04/2024 2:01 PM EST Images from the original note were not included. Call scheduled for [facility] weight trigger OBC to primary # on chart, Tony receives call and is pleasant on phone. States he is doing alright. States he has been on the high side with his weight for the last few days. States his breathing is "not bad". Denies swelling in legs, but knows if his weight goes up any more he is likely to start with symptoms. 272-273 lb is what he thinks is a dry weight. Per metolazone prescription order, pt to take 1 tablet with weight gain of 5 lb in 1 week. Since this is applicable, patient states he will take one today. F/u call scheduled for tomorrow. Reinforced low sodium diet. Knows to call [facility] # with any new/worsening symptoms. Delia Delcid RN, BSN Arch Cushion Skiving Machine Operator [facility] [phone] documented in this encounter Plan of Treatment Upcoming Encounters Date Type Department Care Team (Late st Contact Info) Description 06/05/2024 1:30 PM EST Scheduled Telephone [facility] [place], [facility] 132 [facility] [place] [address] [facility], Nurse [address] [place] [address] 06/07/2024 9:00 AM EST Scheduled Telephone [facility], [facility] [address] [place] [address] Coordinator, [place] [address] [place] [address] 06/07/2024 2:00 PM EST Telemedicine Cardiology [facility] [place] [address] [place] [address] [place] [address], Pharmacist Cardiology [facility] [address] [place] [facility] [place] [address] 06/13/2024 11:15 AM EST Hospital Encounter ENDO OSSC, Endoscopy Room [facility] [address] [place] [phone] José Miguel Sifuentes MD 132 [facility] [place] [address] 06/13/2024 11:15 AM EST - 06/13/2024 11:45 AM EST Surgery ENDO O[facility], Endoscopy Room [facility] [address] [place] [phone] José Miguel Sifuentes MD 132 [facility] [place] [address] COLONOSCOPY FLEXIBLE PROXIMAL DIAGNOSTIC 06/28/2024 2:30 PM EST Home Visit [facility], [facility] [address] [place] [address] Love Stevens, RN 132 [facility] [place] [address] 07/01/2024 2:20 PM EST Office Visit Family Practice [address] [place] [address] 293 [place] [address] Igor Mcconnell, 293 [place] [address] 08/08/2024 9:30 AM EST Nurse Only Ancillary [address] [place] [address] [place], Nurse [address] [place] [address] 10/27/2024 1:00 PM EDT [facility] [address] [place] [phone] Lindsey Sheikh CRNP [address] [place] [address] 11/18/2024 2:00 PM EDT Office Visit Nephrology [address] [place] [address] Zemaitis, Luisa Guzman PA-C [address] [place] [address] Scheduled Procedures Name Priority Associated Diagnoses Date/Ti [...] 05/13/2025 05/13/2024, 02/05, 09/12/2020 Phosphate 05/13/2025 05/13/2024, 04/2 08/2023, 10/23/2023, [...] this encounter Medical Devices Implanted Type Area Registry Nurse Device Identifier Shelf Expiration Date Model / Serial / Lot Lens Intraoc 21.0 - [id number] - [id number] Implanted:Qty: 1 on 01/22/2017 by Cheko Mcnamara MD at OR [facility] Right: Eye BAUSCH & LOMB 08/05/2021 [id number] / [id number] / [id number] Lens Intraoc 21.5 - [id number] - [id number] Implanted:Qty: 1 on 02/03/2017 by Cheko Mcnamara MD at OR [facility] Left: Eye BAUSCH & LOMB 09/02/2021 [id number] / [id number] / [id number] documented as of this encounter Advance Directives [...] were consensually agreed upon. Care Teams Security Inspector Relationship Specialty Start Date End Date Igor Mcconnell DO [address] [place] [place] [address] PCP - General Internal Medicine 02/12/24 documented as of this encounter
--- OUTSIDE RECORDS SUMMARY | 2024-08-26 02:28 | External Medical Summary | Summary of Care ---
Author Name Unknown Organization [facility] Address [address] [place] [address] Phone [phone] Care Team Providers Care Machine Precision Engraver Name Role Phone Igor Mcconnell DO Primary Care Provider [phone] Reason for Referral * Evaluate & Treat - Unlimited Visits (Within 3 days (urgent)) - Authorized Specialty Diagnoses / Procedures Referred By Christin fernandez Referred To Contact Geriatric Nurse Assistant Diagnoses Type 2 diabetes mellitus with hemoglobin A1c goal of less than 8.0% (HCC) [place]IN[place] on CPAP Chronic heart failure with preserved ejection fraction (HCC) Hepatic cirrhosis (HCC) Wilfredo Mulligan DO [address] [place] [address] Phone: tel: fax: Referral ID Status Reason Start Date Expiration Date Visits Requested Visits Authorized [id number] Authorized Specialty Services Required 06/06/[phone] Question Answer Referral Priority Within 3 days (urgent) Where should this appointment be scheduled? [facility] Current Health Device(s) Requested BP Cuff, Pulse Ox, Scale Alarm Settings Standard per protocol Reason for Visit * Reason Onset Date Comments [facility]: Maintenance 06/06/2024 Encounter Details Date Type Department Care Team (Late st Contact Info) Description 06/06/2024 Telephone [facility], [address] [place] [address] Leanne Le, FIRE CAPTAIN MARINE [address] [facility] [place] [address] [facility]: Maintenance Allergies Active Allergy Reactions Criticality Noted Date Comments Metolazone Renal complications 11/10/2023 Note prior DTP with metolazone resulted in acute renal failure Other Allergy (See Comments) Rash Low 10/13/2022 1+ cocamidopropyl betaine Sglt2 Inhibitors Other (Please comment) High 09/04/2020 Genital infection Sulfa Antibiotics Rash 10/15/2016 documented as of this encounter (statuses as of 06/06/2024) Medications Aspirin 81 MG Tablet Take 1 [...] disease, with long-term current use of insulin ([facility]) Inject 2 mg under the skin once a week. 2 mL 11 4 1:20 PM EDT 02/16/20 24 Active Clotrimazole-Betam ethasone 1-0.05 % External Cream (Lotrisone) Apply small amount of cream to scrotal area two times a day 90 g 1 4 5:44 PM EDT 03/02/20 24 Active Allopurinol 300 MG Oral Tablet (Zyloprim)Indicati ons:Gout, arthropathy Take 1 Tablet by mouth in the morning. 100 Tablet 3 4 7:16 AM EDT 03/17/20 24 Active NovoLOG FlexPen 100 UNIT/ML Subcutaneous Solution Pen-injectorIndica tions:Type 2 diabetes mellitus with hemoglobin A1c goal of less than 7.0% ([facility]) INJECT UNDER THE SKIN 20 UNITS AT BREAKFAST, 26 UNITS AT LUNCH, 38 UNITS WITH DINNER PLUS CORRECTION PER [facility] OR DIRECTED UP TO 120 UNITS PER DAY 120 mL 3 4 7:52 AM EDT 03/21/20 24 Active DIURETIC TITRATION PLAN If no improvement on day 3, contact [facility] for possible home visit 1 Each [...] 3 4 7:46 AM EDT 04/18/20 Active Bmzph-3-iewz Ethyl Esters 1 GM Oral Capsule (Lovaza) [...] as of this encounter (statuses as of 06/06/2024) Active Problems Patient Care Coordination No te Formatting of this note migh t be different from the original. Heart Failure Self-Management and Exacerbation Plan "RED FLAG" HF Symptoms: Leg Swelling Abdominal Bloating Increased dyspnea on exertion Increased shortness of breath at rest Orthopnea Remote Patient Monitoring Vendor: [facility] Device(s): Connected Scale Self - Management Plan [...] Comments) Remote Patient Monitoring Vendor: [facility] Device(s): Connected Scale Self - Management Plan [...] as of this encounter (statuses as of 06/06/2024) Resolved Problems Problem Noted Date Diagnosed Date [...] has been better controlled recently. Monitor using Gen9style Cindy. Assessment & Plan (12/19/2022 11:13 AM [...] as of this encounter (statuses as of 06/06/2024) Immunizations Name Administration Dates Next Due COVID-19 mRNA, LNP-s, No Pre serve, 2-Dose Series (Moderna) 12/10/2020,11/12/2020 Hepatitis B, 20+ yrs 01/04/2018,08/03/2017,07/03 Pneumococcal Conjugate Vacci ne, 20-valent ([id number]) 06/09/2022 Pneumococcal Polysaccharide PPV23 (Pneumovax) 03/06/2020 RSV [...] Telephone Encounter - Leanne Le LPN - 06/06/2024 12:08 PM EST Received message to place referral for BP cuff, Scale and pulse ox. Patient does have scale and pulse ox but needs bp cuff Referral placed documented in this encounter Plan of Treatment Upcoming Encounters Date Type Department Care Team (Late st Contact Info) Description 06/07/2024 9:00 AM EST Scheduled Telephone [facility] [place], [facility] [address] [place] [address] Coordinator, [facility] [place] [address] 06/07/2024 2:00 PM EST Telemedicine Cardiology [facility] [place] [address] [facility] [place] [address] [place] [address], Pharmacist Cardiology [facility] [address] [place] [facility] [place] [address] 06/13/2024 11:15 AM EST Hospital Encounter ENDO [facility], Endoscopy Room [facility] [address] [facility] [place] [phone] José Miguel Sifuentes MD 132 [facility] [place] [address] 06/13/2024 11:15 AM EST - 06/13/2024 11:45 AM EST Surgery ENDO [facility], Endoscopy Room [facility] [address] [place] [phone] José Miguel Sifuentes MD 132 [facility] [place] [address] COLONOSCOPY FLEXIBLE PROXIMAL DIAGNOSTIC 06/28/2024 2:30 PM EST [facility] Visit [facility], [facility] [address] [place] [address] Love Stevens, RN [address] [place] [address] 07/01/2024 2:20 PM EST Office Visit Family Practice [address] [place] [address], [place] 293 [facility] [place] [address] Igor Mcconnell DO 293 [facility] [place] [address] 08/08/2024 9:30 AM EST Nurse Only Ancillary [address] [place] [address] [place], Nurse [address] [place] [address] 10/27/2024 1:00 PM EDT [facility] [address] [place] [phone] Lindsey Sheikh CRNP [address] [place] [address] 11/18/2024 2:00 PM EDT Office Visit Nephrology [address] [place] [address] Luisa Ching PA-C [address] [place] [address] Scheduled Procedures Name Priority Associated Diagnoses Date/Ti me COLONOSCOPY FLEXIBLE PROXIMAL DIAGNOSTIC Recall Special screening for malignant neoplasms, colon 06/13/2024 11:15 AM EST Scheduled Referrals Name Type Priority Associated Diagnoses Orde r Schedule REMOTE PATIENT MONITORING REFERRAL Referral Within 3 days (urgent) Type 2 diabetes mellitus with hemoglobin A1c goal of less than 8.0% (HCC) [place]APIN[place]O on CPAP Chronic heart failure with preserved ejection fraction (HCC) Hepatic cirrhosis (HCC) Ordered: 06/06/2024 Health Maintenance Due Date Last Done Comments [...] 05/13/2025 05/13/2024, 02/05, 09/12/2020 Phosphate 05/13/2025 05/13/2024, 042 08/2023, 10/23/2023, [...] this encounter Medical Devices Implanted Type Area Policy Intern Device Identifier Shelf Expiration Date Model / Serial / Lot Lens Intraoc 21.0 - [id number] - [id number] Implanted:Qty: 1 on 01/22/2017 by Cheko Mcnamara MD at OR [facility] Right: Eye BAUSCH & LOMB 08/05/2021 [id number] / [id number] / [id number] Lens Intraoc 21.5 - [id number] - [id number] Implanted:Qty: 1 on 02/03/2017 by Cheko Mcnamara MD at OR [facility] Left: Eye BAUSCH & LOMB 09/02/2021 [id number] / [id number] / [id number] documented as of this encounter Visit Diagnoses Diagnosis Hypertensive 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 (HCC)- Primary CHAPINCITO on CPAP Obstructive sleep apnea (adult) (pediatric) Type 2 diabetes mellitus with stage 3b chronic kidney disease, with long-term current use of insulin ([facility]) Advanced care planning/counseling discussion- Primary Other specified counseling Hypertensive 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 (HCC) CHAPINCITO on CPAP Obstructive sleep apnea (adult) (pediatric) Mixed dyslipidemia Mixed hyperlipidemia Type 2 diabetes mellitus with hemoglobin A1c goal of less than 8.0% ([facility]) Arreola's esophagus with high grade dysplasia Arreola's esophagus Hypertensive 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 (HCC)- Primary Type 2 diabetes mellitus with stage 3b chronic kidney disease, with long-term current use of insulin ([facility]) Arreola's esophagus with high grade dysplasia Arreola's esophagus 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)- Primary Chronic obstructive pulmonary disease, unspecified COPD type ([facility]) Type 2 diabetes mellitus with stage 3b chronic kidney disease, with long-term current use of insulin ([facility]) Mixed dyslipidemia Mixed hyperlipidemia 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)- Primary BMI 40.0-44.9, adult ([facility]) Body Mass Index 40.0-44.9, adult 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, unspecified whether shelter insulin use ([facility]) Chronic obstructive pulmonary disease, unspecified COPD type (HCC) Sacroiliitis (HCC) Sacroiliitis, not elsewhere classified Other specified peripheral vascular diseases (HCC) Coronary artery calcification seen on CT scan Mixed dyslipidemia Mixed hyperlipidemia Chronic heart failure with preserved ejection fraction (HCC)- Primary Type 2 diabetes mellitus with hemoglobin A1c goal of less than 8.0% (HCC) CHAPINCITO on CPAP Obstructive sleep apnea (adult) (pediatric) Hepatic cirrhosis (HCC) Cirrhosis of liver without mention of alcohol Special screening for malignant neoplasms, colon documented [...] were consensually agreed upon. Care Teams Machine Precision Engraver Relationship Specialty Start Date End Date Igor Mcconnell DO [address] [place] [address] PCP - General Internal Medicine 02/12/24 documented as of this encounter
--- OUTSIDE RECORDS SUMMARY | 2024-08-26 02:28 | External Medical Summary | Summary of Care ---
Author Name Unknown Organization [facility] Address [address] [place] [address] Phone [phone] Care Team Providers Care Electronic Warfare Operator Name Role Phone Igor Mcconnell DO Primary Care Provider Reason for Visit * Reason Onset Date Comments [facility]: Maintenance 06/06/2024 Encounter Details Date Type Department Care Team (Late st Contact Info) Description 06/06/2024 Telephone [facility], [place] [address] [place] [phone] Cindi Sylvester, [place] [address] [place], [place] [phone] [facility]: Maintenance Allergies Active Allergy [...] UNITS WITH DINNER PLUS CORRECTION PER [facility] OR DIRECTED UP TO 120 UNITS PER DAY 120 mL 3 4 7:52 AM EDT 03/21/20 Active DIURETIC TITRATION PLAN If no improvement on day 3, contact [facility] for possible home visit 1 Each 03/24/20 [...] 3 4 7:46 AM EDT 04/18/20 Active Dyddd-4-yltz Ethyl Esters 1 GM Oral Capsule (Lovaza) [...] rest Orthopnea Remote Patient Monitoring Vendor: [facility] [...] has been better controlled recently. Monitor using Semantics3yle Cindy. Assessment & Plan (12/19/2022 11:13 AM [...] yrs 01/04/2018,08/03/2017,07/03 Pneumococcal Conjugate Vacci ne, 20-valent ([id number]) 06/09/2022 Pneumococcal Polysaccharide PPV23 (Pneumovax) 03/06/2020 RSV [...] 9:00 AM EST Scheduled Telephone [facility] [place], [facility] [address] [place] [address] Coordinator, [facility] [address] [place] [address] 06/07/2024 2:00 PM EST Telemedicine Cardiology [facility], [place] [address] [facility] [address] [facility], Pharmacist Cardiology [facility] [address] [facility] [address] 06/13/2024 11:15 AM EST Hospital Encounter ENDO [facility], Endoscopy Room [facility] [address] [place] [phone] José Miguel Sifuentes MD [address] [place] [address] 06/13/2024 11:15 AM EST - 06/13/2024 11:45 AM EST Surgery ENDO [facility], Endoscopy Room [facility] [address] [place] [phone] José Miguel Sifuentes MD [address] [place] [address] COLONOSCOPY FLEXIBLE PROXIMAL DIAGNOSTIC 06/28/2024 2:30 PM EST Home Visit [facility], [facility] [address] [place] [address] Love Stevens RN [address] [place] [address] 07/01/2024 2:20 PM EST Office Visit Family Practice [address] [place] [address] 293 [place] [address] Igor Mcconnell, 293 [place] [address] 08/08/2024 9:30 AM EST Nurse Only Ancillary [address] [place] [address] [place], Nurse [address] [place] [address] 10/27/2024 1:00 PM EDT Office Visit Sleep Disorders Ctr [facility] 132 [facility] [place] [phone] Lindsey Sheikh CRNP [address] [place] [address] 11/18/2024 2:00 PM EDT Office Visit Nephrology [address] [place] [address] Luisa Ching PA-C [address] [place] [address] Scheduled Procedures Name Priority Associated Diagnoses Date/Ti [...] this encounter Medical Devices Implanted Type Area Toll Operator Device Identifier Shelf Expiration Date Model / Serial / Lot Lens Intraoc 21.0 - [id number] - [id number] Implanted:Qty: 1 on 01/22/2017 by Cheko Mcnamara MD at OR [facility] Right: Eye BAUSCH & LOMB 08/05/2021 [id number] / [id number] / [id number] Lens Intraoc 21.5 - [id number] - [id number] Implanted:Qty: 1 on 02/03/2017 by Cheko Mcnamara MD at OR [facility] Left: Eye BAUSCH & LOMB 09/02/2021 [id number] / [id number] / [id number] documented as of this encounter Advance Directives [...] and were consensually agreed upon. Care Teams Electronic Warfare Operator Relationship Specialty Start Date End Date Igor Mcconnell DO [address] [facility] [place] [address] PCP - General Internal Medicine 02/12/24 documented as of this encounter
--- OUTSIDE RECORDS SUMMARY | 2024-08-26 02:29 | External Medical Summary | Summary of Care ---
Author Name Unknown Organization [facility] Address [address] [place] [address] Phone [phone] Care Team Providers Care Harbor Boat Pilot Name Role Phone Igor Mcconnell DO Primary Care Provider [phone] Encounter Details Date Type Department Care Team (Late st Contact Info) Description 05/31/2024 Telephone Cardiology [facility] [address] [place] [address] [facility] [address] [facility] [phone] Allergies Active Allergy Reactions Criticality Noted Date Comments Metolazone Renal complications 11/10/2023 Note prior DTP with metolazone resulted in acute renal failure Other Allergy (See Comments) Rash Low 10/13/2022 1+ cocamidopropyl betaine Sglt2 Inhibitors Other (Please comment) High 09/04/2020 Genital infection Sulfa Antibiotics Rash 10/15/2016 documented as of this encounter (statuses as of 06/03/2024) Medications Aspirin 81 MG Tablet Take 1 [...] 38 UNITS WITH DINNER PLUS CORRECTION PER [facility] OR DIRECTED UP TO 120 UNITS PER DAY 120 mL 3 4 7:52 AM EDT 03/21/20 Active DIURETIC TITRATION PLAN If no improvement on day 3, contact [facility] for possible home visit 1 Each 03/24/20 Active Evolocumab 140 MG/ML Subcutaneous Solution Auto-injector (Repatha SureClick)Indicati ons:Dyslipidemia, goal LDL below 100,Mixed dyslipidemia Inject 140 mg under the skin every 14 days. 6 mL 3 03/24/20 Active Unifine Pentips 31G X 8 MM (Insulin Pen Needle)Indications :Type 2 diabetes mellitus with hemoglobin A1c goal of less than 7.0% (HCC) USE TO INJECT INSULINS 5 TIMES DAILY 500 Each 3 4 7:46 AM EDT 04/18/20 Active Jonra-0-ntaw Ethyl Esters 1 GM Oral Capsule (Lovaza) [...] as of this encounter (statuses as of 06/03/2024) Active Problems Patient Care Coordination No te [...] in the Comments) Remote Patient Monitoring Vendor: Uniplaces Device(s): Connected Scale Self - Management Plan [...] Plan (07/25/2023 7:42 PM EST): Continues on anju 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 repatha Assessment & [...] as of this encounter (statuses as of 06/03/2024) Resolved Problems Problem Noted Date Diagnosed Date [...] has been better controlled recently. Monitor using PassivSystems Cindy. Assessment & Plan (12/19/2022 11:13 AM [...] as of this encounter (statuses as of 06/03/2024) Immunizations Name Administration Dates Next Due COVID-19 mRNA, LNP-s, No Pre serve, 2-Dose Series (Moderna) 12/10/2020,11/12/2020 Hepatitis B, 20+ yrs 01/04/2018,08/03/2017,07/03 Pneumococcal Conjugate Vacci ne, 20-valent ([id number]) 06/09/2022 Pneumococcal Polysaccharide PPV23 (Pneumovax) 03/06/2020 RSV [...] encounter Miscellaneous Notes * Telephone Encounter - Garima Prado [facility] - 06/03/2024 12:[address] Mcconnell, [...] you, Garima Prado, PharmD Clinical Pharmacist - [facility] 06/03/2024 1:24 PM * Telephone Encounter - Garima Prado RP - 05/31/2024 10:22 AM EST Dylan Diego, This patient was referred to [facility] for lipid management. Was unable [...] you! Garima Prado, PharmD Clinical Pharmacist - [facility] 05/31/2024 11:53 AM documented in this encounter Plan of Treatment Upcoming Encounters Date Type Department Care Team (Late st Contact Info) Description 06/07/2024 9:00 AM EST Scheduled Telephone [facility], [facility] [address] [place] [address] Coordinator, [facility] [address] [place] [address] 06/07/2024 2:00 PM EST Telemedicine Cardiology [facility] [place] [address] [place] [address] [place] [address], Pharmacist Cardiology [facility] [address] [place] [address] 06/13/2024 11:15 AM EST Hospital Encounter [facility]O [facility], Endoscopy Room [facility] [address] [place] [phone] José Miguel Sifuentes MD [address] [place] [address] 06/13/2024 11:15 AM EST - 06/13/2024 11:45 AM EST Surgery ENDO [facility], Endoscopy Room [facility] [address] [place] [phone] José Miguel Sifuentes MD [address] [place] [address] COLONOSCOPY FLEXIBLE PROXIMAL DIAGNOSTIC 06/28/2024 2:30 PM EST [facility], [facility] [place] [address] Love Stevens, ANNE MARIE [address] [place] [address] 07/01/2024 2:20 PM EST Office Visit Family Practice [address] [place] [address] 293 [place] [address] Igor Mcconnell, 293 [place] [address] 08/08/2024 9:30 AM EST Nurse Only Ancillary [address] [place] [address] [place], Nurse [address] [place] [address] 10/27/2024 1:00 PM EDT Office Visit Sleep Disorders Ctr [facility] 132 [facility] [place] [phone] Lindsey Sheikh CRNP 132 [facility] [place] [address] 11/18/2024 2:00 PM EDT Office Visit Nephrology [address] [place] [address] ZemaitisLuisa PA-C [address] [place] [address] Scheduled Procedures Name Priority Associated Diagnoses Date/Ti [...] this encounter Medical Devices Implanted Type Area Naval Marine Engineer Device Identifier Shelf Expiration Date Model / Serial / Lot Lens Intraoc 21.0 - [id number] - [id number] Implanted:Qty: 1 on 01/22/2017 by Cheko Mcnamara MD at OR [facility] Right: Eye BAUSCH & LOMB 08/05/2021 [id number] / [id number] / [id number] Lens Intraoc 21.5 - [id number] - [id number] Implanted:Qty: 1 on 02/03/2017 by Cheko Mcnamara MD at OR [facility] Left: Eye BAUSCH & LOMB 09/02/2021 [id number] / [id number] / [id number] documented as of this encounter Advance Directives [...] and were consensually agreed upon. Care Teams Harbor Boat Pilot Relationship Specialty Start Date End Date Igor Mcconnell DO [address] [place] [facility] [place] [address] PCP - General Internal Medicine 02/12/24 documented as of this encounter
--- OUTSIDE RECORDS SUMMARY | 2024-08-26 02:29 | External Medical Summary | Summary of Care ---
Author Name Unknown Organization [facility] Address [address] [facility] [place] [address] Phone [phone] Care Team Providers Care Architectural Representative Name Role Phone Igor Mcconnell DO Primary Care Provider [phone] Reason for Referral * Evaluate & Treat - Unlimited Visits (Within 10 days (routine)) - Authorized Specialty Diagnoses / Procedures Referred By Christin fernandez Referred To Contact Coal Picker Diagnoses Type 2 diabetes mellitus with hemoglobin A1c goal of less than 8.0% (HCC) CHAPIN[place]O on CPAP Chronic heart failure with preserved ejection fraction (HCC) Hepatic cirrhosis (HCC) Chilango Trujillo MD [address] [place] [address] Phone: tel: fax: Referral ID Status Reason Start Date Expiration Date Visits Requested Visits Authorized [id number] Authorized Specialty Services Required 4 [phone] Question Answer Referral Priority Within 10 days (routine) Where should this appointment be scheduled? [facility] Current Health Device(s) Requested Pulse Ox, Scale Alarm Settings Standard per protocol Comments Current Health Monitor Ordering Form: Method of Delivery: Vendor Supplied Enrollment Diagnosis: Vital Sign Trending Patient Requires Use of Cameron: Yes Reason for Visit * Reason Onset Date Comments [facility]: Maintenance 05/30/2024 Encounter Details Date Type Department Care Team (Late st Contact Info) Description 05/30/2024 Telephone [facility] [address] [place] [phone] Janeth Kelley LPN [address] [address] [facility]: Maintenance Allergies Active Allergy Reactions Criticality Noted Date Comments Metolazone Renal complications 11/10/2023 Note prior DTP with metolazone resulted in acute renal failure Other Allergy (See Comments) Rash Low 10/13/2022 1+ cocamidopropyl betaine Sglt2 Inhibitors Other (Please comment) High 09/04/2020 Genital infection Sulfa Antibiotics Rash 10/15/2016 documented as of this encounter (statuses as of 05/31/2024) Medications Aspirin 81 MG Tablet Take 1 [...] disease, with long-term current use of insulin ([facility]) Inject 2 mg under the [...] hemoglobin A1c goal of less than 7.0% ([facility]) INJECT UNDER THE SKIN 20 UNITS AT BREAKFAST, 26 UNITS AT LUNCH, 38 UNITS WITH DINNER PLUS CORRECTION PER [facility] OR DIRECTED UP TO 120 UNITS PER DAY 120 mL 3 4 7:52 AM EDT 03/21/20 24 Active DIURETIC TITRATION PLAN If no improvement on day 3, contact [facility] for possible home visit 1 Each 03/24/20 [...] 4 7:46 AM EDT 04/18/20 24 Active Rongr-9-xbzh Ethyl Esters 1 GM Oral Capsule (Lovaza) [...] as of this encounter (statuses as of 05/31/2024) Active Problems Patient Care Coordination No te Formatting of this note migh t be different from the original. Heart Failure Self-Management and Exacerbation Plan "RED FLAG" HF Symptoms: Leg Swelling Abdominal Bloating Increased dyspnea on exertion Increased shortness of breath at rest Orthopnea Remote Patient Monitoring Vendor: [facility] Device(s): Connected Scale [...] in the Comments) Remote Patient Monitoring Vendor: [facility] Device(s): Connected Scale [...] as of this encounter (statuses as of 05/31/2024) Resolved Problems Problem Noted Date Diagnosed Date [...] as of this encounter (statuses as of 05/31/2024) Immunizations Name Administration Dates Next Due COVID-19 mRNA, LNP-s, No Pre serve, 2-Dose Series (Moderna) 12/10/2020,11/12/2020 Hepatitis B, 20+ yrs 01/04/2018,08/03/2017,07/03 Pneumococcal Conjugate Vacci ne, 20-valent ([id number]) 06/09/2022 Pneumococcal Polysaccharide PPV23 (Pneumovax) 03/06/2020 RSV [...] encounter Miscellaneous Notes * Addendum Note - Janeth Kelley LPN - 05/31/2024 4:41 PM ESTAddended by: JANETH KELLEY on: 05/31/2024 04:41 PM Modules accepted: Orders * Telephone Encounter - Janeth Kelley LPN - 05/30/2024 4:18 PM EST RPM DC task sent to DC BP monitoring documented in this encounter Plan of Treatment Upcoming Encounters Date Type Department Care Team (Late st Contact Info) Description 06/07/2024 2:00 PM EST Telemedicine [facility]iology [facility] [place] [address] [place] [address] [place] [address], Pharmacist Cardiology [facility] [address] [place] [address] 06/13/2024 11:15 AM EST Hospital Encounter ENDO OSSC, Endoscopy Room [facility] [address] [place] [phone] José Miguel Sifuentes MD [address] [place] [address] 06/13/2024 11:15 AM EST - 06/13/2024 11:45 AM EST Surgery ENDO OSSC, Endoscopy Room [facility] [address] [place] [phone] José Miguel Sifuentes MD [address] [place] [address] COLONOSCOPY FLEXIBLE PROXIMAL DIAGNOSTIC 06/28/2024 2:30 PM EST Home Visit [facility] [address] [place] [address] Love Stevens, ANNE MARIE [address] [place] [address] 07/01/2024 2:20 PM EST Office Visit Family Practice [address], [place] [address] [place] [address] Igor Mcconnell DO [address] [place] [address] 08/08/2024 9:30 AM EST Nurse Only Ancillary [address] [place] [address] [place], [address] [place] [address] 10/27/2024 1:00 PM EDT [facility] [address] [place] [phone] Lindsey Sheikh CRNP [address] [place] [address] 11/18/2024 2:00 PM EDT Office Visit Nephrology [address] [place] [address] ZeLuisa reyes PA-C [address] [place] [address] Scheduled Procedures Name Priority Associated Diagnoses Date/Ti nm COLONOSCOPY FLEXIBLE PROXIMAL DIAGNOSTIC Recall Special screening for malignant neoplasms, colon 06/13/2024 11:15 AM EST Scheduled Referrals Name Type Priority Associated Diagnoses Orde r Schedule REMOTE PATIENT MONITORING REFERRAL Referral Within 10 days (routine) Type 2 diabetes mellitus with hemoglobin A1c goal of less than 8.0% (HCC) CHAPINCITO on CPAP Chronic heart failure with preserved ejection fraction (HCC) Hepatic cirrhosis (HCC) Ordered: 05/31/2024 Health Maintenance Due Date Last Done Comments [...] this encounter Medical Devices Implanted Type Area Website Optimization Strategist Device Identifier Shelf Expiration Date Model / Serial / Lot Lens Intraoc 21.0 - [id number] - [id number] Implanted:Qty: 1 on 01/22/2017 by Cheko Mcnamara MD at OR [facility] Right: Eye BAUSCH [employer] LOMB 08/05/2021 [id number] / [id number] / [id number] Lens Intraoc 21.5 - [id number] - [id number] Implanted:Qty: 1 on 02/03/2017 by Cheko Mcnamara MD at OR [facility] Left: Eye BAUSCH & LOMB 09/02/2021 [id number] / [id number] / [id number] documented as of this encounter Visit Diagnoses Diagnosis Hypertensive 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 (HCC)- Primary CHAPINCITO on CPAP Obstructive sleep apnea (adult) (pediatric) Type 2 diabetes mellitus with stage 3b chronic kidney disease, with long-term current use of insulin ([facility]) Advanced care planning/counseling discussion- Primary Other specified counseling Hypertensive 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 (HCC) CHAPINCITO on CPAP Obstructive sleep apnea (adult) (pediatric) Mixed dyslipidemia Mixed hyperlipidemia Type 2 diabetes mellitus with hemoglobin A1c goal of less than 8.0% ([facility]) Arreola's esophagus with high grade dysplasia Arreola's esophagus Hypertensive 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 (HCC)- Primary Type 2 diabetes mellitus with stage 3b chronic kidney disease, with long-term current use of insulin ([facility]) Arreola's esophagus with high grade dysplasia Arreola's esophagus 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)- Primary Chronic obstructive pulmonary disease, unspecified COPD type ([facility]) Type 2 diabetes mellitus with stage 3b chronic kidney disease, with long-term current use of insulin ([facility]) Mixed dyslipidemia Mixed hyperlipidemia 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)- Primary BMI 40.0-44.9, adult ([facility]) Body Mass Index 40.0-44.9, adult 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 Care Teams Architectural Representative Relationship Specialty Start Date End Date Igor Mcconnell DO [address] [place] [address] PCP - General Internal Medicine 02/12/24 documented as of this encounter
--- OUTSIDE RECORDS SUMMARY | 2024-08-26 02:29 | External Medical Summary | Summary of Care ---
Author Name Unknown Organization [facility] Address [address] [place] [address] Phone [phone] Care Team Providers Care Iron Worker Foreman Name Role Phone Igor Mcconnell DO Primary Care Provider [phone] Encounter Details Date Type Department Care Team (Late st Contact Info) Description 05/31/2024 Telephone Cardiology [facility] [address] [place] [address] [facility] [address] [facility] [phone] Allergies Active Allergy Reactions Criticality [...] 38 UNITS WITH DINNER PLUS CORRECTION PER [facility] OR DIRECTED UP TO [...] 3 4 7:46 AM EDT 04/18/20 Active Ggylo-8-mcwg Ethyl Esters 1 GM Oral Capsule (Lovaza) [...] mouth in the morning. 90 Tablet 3 05/30/20 24 Active documented as of this encounter (statuses as of 05/31/2024) Active Problems Patient Care Coordination No te Formatting of this note migh t be different from the original. Heart Failure Self-Management and Exacerbation Plan "RED FLAG" HF Symptoms: Leg Swelling Abdominal Bloating Increased dyspnea on exertion Increased shortness of breath at rest Orthopnea Remote Patient Monitoring Vendor: [facility] [...] in the Comments) Remote Patient Monitoring Vendor: [employer] Device(s): Connected Scale Self - Management [...] has been better controlled recently. Monitor using [employer] Cindy. Assessment & Plan (12/19/2022 11:13 AM [...] yrs 01/04/2018,08/03/2017,07/03 Pneumococcal Conjugate Vacci ne, 20-valent ([id number]) 06/09/2022 Pneumococcal Polysaccharide PPV23 (Pneumovax) 03/06/2020 RSV [...] Notes * Telephone Encounter - Garima Prado RPh - 05/31/2024 10:22 AM EST Dylan Diego, This patient was referred to [facility] for lipid management. Was unable to reach [...] you! Garima Prado, PharmD Clinical Pharmacist - Event Marketing Intern [facility] 05/31/2024 11:53 AM documented in this encounter Plan of Treatment Upcoming Encounters Date Type Department Care Team (Late st Contact Info) Description 05/31/2024 3:30 PM EST Scheduled Telephone [facility], [facility] [address] [facility] [place] [address] Mery Calderon, VIVIANAN [address] [facility] [place] [address] 06/07/2024 2:00 PM EST Telemedicine Cardiology [facility] [place] [address] [place] [address] [place], Pharmacist Cardiology [facility] [address] [facility], [place] [address] 06/13/2024 11:15 AM EST Hospital Encounter ENDO O[facility], Endoscopy Room [facility] [address] [place] [phone] José Miguel Sifuentes MD [address] [place] [address] 06/13/2024 11:15 AM EST - 06/13/2024 11:45 AM EST Surgery ENDO OSS, Endoscopy Room [facility] [address] [place] [phone] José Miguel Sifuentes MD [address] [place] [address] COLONOSCOPY FLEXIBLE PROXIMAL DIAGNOSTIC 06/28/2024 2:30 PM EST [facility] Visit [facility], [facility] [address] [facility] [place] [address] [place], RN [address] [place] [address] 07/01/2024 2:20 PM EST Office Visit Family Practice [address] [place] [address] 293 [facility] [place] [address] Igor Mcconnell, [address] [place] [address] 08/08/2024 9:30 AM EST Nurse Only Ancillary [address] [place] [address] [place], Nurse [address] [place] [address] 10/27/2024 1:00 PM EDT Office Visit Sleep Disorders Ctr Maximiliano [place] [address] [place] [phone] Lindsey Sheikh CRNP [address] [place] [address] 11/18/2024 2:00 PM EDT Office Visit Nephrology [address] [place] [address] ZemaLuisa leslie PA-C [address] [place] [address] Scheduled Procedures Name Priority Associated Diagnoses Date/Ti [...] 02/24/2024, Additional history exists PTH 05/13/2025 05/13/2024, 083 [...] this encounter Medical Devices Implanted Type Area Split Leather Department Supervisor Device Identifier Shelf Expiration Date Model / Serial / Lot Lens Intraoc 21.0 - [id number] - [id number] Implanted:Qty: 1 on 01/22/2017 by Cheko Mcnamara MD at OR [facility] Right: Eye BAUSCH [employer] LOMB 08/05/2021 [id number] / [id number] / [id number] Lens Intraoc 21.5 - [id number] - [id number] Implanted:Qty: 1 on 02/03/2017 by Cheko Mcnamara MD at OR [facility] Left: Eye BAUSCH & LOMB 09/02/2021 [id number] / [id number] / [id number] documented as of this encounter Advance Directives [...] and were consensually agreed upon. Care Teams Iron Worker Foreman Relationship Specialty Start Date End Date Igor Mcconnell DO [address] [facility] [place] [address] PCP - General Internal Medicine 02/12/24 documented as of this encounter
--- OUTSIDE RECORDS SUMMARY | 2024-08-26 02:29 | External Medical Summary | Summary of Care ---
Author Name Unknown Organization [facility] Address [address] [place] [address] Phone [phone] Care Team Providers Care Paper Maker Name Role Phone EnedinaIgor DO Primary Care Provider [phone] Reason for Visit * Reason Onset Date Comments Advice 05/30/2024 Encounter Details Date Type Department Care Team (Late st Contact Info) Description 05/30/2024 Telephone Cardiology [address] ADDRESS AVAILABLE Advice Allergies Active Allergy Reactions Criticality Noted Date [...] A1c goal of less than 7.0% ([facility]) Use as directed every 14 days . 6 Each 3 04/24/20 22 Active Metamucil 28.3 % Oral Powder (Psyllium) Take by mouth daily. At least 1 hour after other medications Active OneTouch Verbob In Vitro Strip (Glucose Blood)Indications: Uncontrolled type 2 diabetes mellitus with hyperglycemia ([facility]) USE TO TEST BLOOD GLUCOSE 3 TIMES [...] A1c goal of less than 7.0% ([facility]) INJECT UNDER THE SKIN 100 UNITS TWICE DAILY OR DIRECTED 90 mL 3 4 10:11 AM EDT 01/18/20 24 025 Active Additional Information Patient taking differently: 90 Units Subcutaneous BID(Non-Specified), Reported on 05/30/2024 Torsemide 20 MG Oral Tablet (Demadex)Indicatio ns:Chronic heart failure with preserved ejection fraction (HCC),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 disease ([facility]) Take 4 Tablets by mouth in the [...] with long-term current use of insulin ([facility]) Inject 2 mg under the skin once [...] 38 UNITS WITH DINNER PLUS CORRECTION PER [facility] OR DIRECTED UP TO 120 UNITS PER DAY 120 mL 3 4 7:52 AM EDT 03/21/20 Active DIURETIC TITRATION PLAN If no improvement on day 3, contact [facility] for possible home visit 1 Each [...] 3 4 7:46 AM EDT 04/18/20 Active Zbpjv-6-etkp Ethyl Esters 1 GM Oral Capsule (Lovaza) [...] in the Comments) Remote Patient Monitoring Vendor: [employer] Device(s): Connected Scale Self - Management Plan [...] Comments: recently changed by PCP. added metolatzone michael thrusday Exacerbation Plan o BMP o Pro-BNP Assessment [...] Plan (07/25/2023 7:42 PM EST): Continues on lovyolandaa 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 repatha Assessment & [...] has been better controlled recently. Monitor using [employer]. Assessment & Plan (12/19/2022 11:13 AM EDT): [...] yrs 01/04/2018,08/03/2017,07/03 Pneumococcal Conjugate Vacci ne, 20-valent ([id number]) 06/09/2022 Pneumococcal Polysaccharide PPV23 (Pneumovax) 03/06/2020 RSV [...] Encounter - Garima Prado RPh - 05/31/2024 3:27 PM EST Returned patient's call. Discussed current medication limitations noted in my TE to Dr. Diego. Will await response from Dr. Diego regarding whether patient will proceed with MTM appt on 06/[address] Diego lipid clinic. Patient agreeable to plan and will await MyG with updates. Of note, patient would like expressive music therapist Dr. Magallon looped in regarding any medication changes being considered. Garima Prado, PharmD Clinical Pharmacist - [employer] Console Operator Track [facility] 05/31/2024 3:29 PM * Telephone Encounter - Xochitl Kyle OSA - 05/31/2024 9:16 AM EST Person calling: Tony Relationship to patient: self Phone/Fax to return call: [phone] Reason for call(brief): returning call Pharmacy: na Provider Name:sammi Detailed message to office:Tony returning call. Stated when he picked up call dropped. Please advise. * Telephone Encounter - Iveth Kulkarni OSA - 05/30/2024 9:37 AM EST Person calling: Tony Relationship to patient: self Phone/Fax to return call: [phone] Reason for call(brief): Later appt Pharmacy: Provider Name:NYASIA Detailed message to office: Tony is calling to move appt to later time or another day if unable to reschedule to later time. Please advise documented in this encounter Plan of Treatment Upcoming Encounters Date Type Department Care Team (Late st Contact Info) Description 06/07/2024 2:00 PM EST Telemedicine Cardiology [facility] [place] [address] [facility] [place] [address] [place] [address], Pharmacist Cardiology [facility] [address] [place] [address] 06/13/2024 11:15 AM EST Hospital Encounter ENDO [facility] [place] [phone] José Miguel Sifuentes MD [address] [place] [address] 06/13/2024 11:15 AM EST - 06/13/2024 11:45 AM EST Surgery ENDO [facility], Endoscopy Room [facility] [place] [phone] José Miguel Sifuentes MD [address] [place] [address] COLONOSCOPY FLEXIBLE PROXIMAL DIAGNOSTIC 06/28/2024 2:30 PM EST Home Visit [facility] 132 [facility] [place] [address] Love Stevens, ANNE MARIE [address] [place] [address] 07/01/2024 2:20 PM EST Office Visit Family Practice [address] [facility] [place] 293 [place] [address] Igor Mcconnell DO 293 [place] [address] 08/08/2024 9:30 AM EST Nurse Only Ancillary [address] [place] [address] [place], Nurse [address] [place] [address] 10/27/2024 1:00 PM EDT Office Visit Sleep Disorders Ctr [facility] [address] [place] [place] [phone] Lindsey Sheikh CRNP [address] [place] [address] 11/18/2024 2:00 PM EDT Office Visit Nephrology [address] [place] [address] ZemaLuisa leslie PA-C [address] [place] [address] Scheduled Procedures Name Priority Associated Diagnoses Date/Ti [...] this encounter Medical Devices Implanted Type Area Nutrition Services Worker Device Identifier Shelf Expiration Date Model / Serial / Lot Lens Intraoc 21.0 - [id number] - [id number] Implanted:Qty: 1 on 01/22/2017 by Cheko Mcnamara MD at OR [facility] Right: Eye BAUSCH [employer] LOMB 08/05/2021 [id number] / [id number] / [id number] Lens Intraoc 21.5 - [id number] - [id number] Implanted:Qty: 1 on 02/03/2017 by Cheko Mcnamara MD at OR [facility] Left: Eye BAUSCH & LOMB 09/02/2021 [id number] / [id number] / [id number] documented as of this encounter Advance Directives [...] and were consensually agreed upon. Care Teams Paper Maker Relationship Specialty Start Date End Date Igor Mcconnell DO [address] [facility] [place] [address] PCP - General Internal Medicine 02/12/24 documented as of this encounter
--- OUTSIDE RECORDS SUMMARY | 2024-08-26 02:29 | External Medical Summary | Summary of Care ---
Author Name Unknown Organization [facility] Address [address] [place] [address] Phone [phone] Care Team Providers Care Precision Lens Polisher Name Role Phone Igor Mcconnell DO Primary Care Provider [phone] Reason for Visit * Reason Onset Date Comments Home Monitoring Orders Only 06/01/2024 Encounter Details Date Type Department Care Team (Late st Contact Info) Description 06/01/2024 Home Monitoring Family Practice [address], [place] [address] [place] [id number] Igor Mcconnell DO [address] [place] [address] Hypertension* Allergies Active Allergy Reactions Criticality Noted Date Comments Metolazone Renal complications 11/10/2023 Note prior DTP with metolazone resulted in acute renal failure Other Allergy (See Comments) Rash Low 10/13/2022 1+ cocamidopropyl betaine Sglt2 Inhibitors Other (Please comment) High 09/04/2020 Genital infection Sulfa Antibiotics Rash 10/15/2016 documented as of this encounter (statuses as of 06/01/2024) Medications Aspirin 81 MG Tablet Take 1 [...] 38 UNITS WITH DINNER PLUS CORRECTION PER [facility] OR DIRECTED UP TO 120 UNITS PER DAY 120 mL 3 4 7:52 AM EDT 03/21/20 Active DIURETIC TITRATION PLAN If no improvement on day 3, contact [facility] for possible home visit 1 Each 03/24/20 [...] 3 4 7:46 AM EDT 04/18/20 Active Bsbax-1-yrhg Ethyl Esters 1 GM Oral Capsule (Lovaza) [...] as of this encounter (statuses as of 06/01/2024) Active Problems Patient Care Coordination No te Formatting of this note migh t be different from the original. Heart Failure Self-Management and Exacerbation Plan "RED FLAG" HF Symptoms: Leg Swelling Abdominal Bloating Increased dyspnea on exertion Increased shortness of breath at rest Orthopnea Remote Patient Monitoring Vendor: [facility] Device(s): Connected Scale Self - Management Plan [...] the Comments) Remote Patient Monitoring Vendor: [employer] Device(s): Connected Scale Self - Management Plan [...] as of this encounter (statuses as of 06/01/2024) Resolved Problems Problem Noted Date Diagnosed Date [...] has been better controlled recently. Monitor using ITC Cindy. Assessment & Plan (12/19/2022 11:13 AM [...] as of this encounter (statuses as of 06/01/2024) Immunizations Name Administration Dates Next Due COVID-19 mRNA, LNP-s, No Pre serve, 2-Dose Series (Moderna) 12/10/2020,11/12/2020 Hepatitis B, 20+ yrs 01/04/2018,08/03/2017,07/03 Pneumococcal Conjugate Vacci ne, 20-valent ([id number]) 06/09/2022 Pneumococcal Polysaccharide PPV23 (Pneumovax) 03/06/2020 RSV [...] as of this encounter Progress Notes * Bárbara Vallejo OSA - 06/01/2024 7:38 AM EST Patient has been successfully enrolled to the [id number] [facility] program and will be provided with the Altitude Digital Wearable device to facilitate their participation in remote monitoring: Scale O2 Patient has been oriented to remote patient monitoring by their Lodging Facilities Attendant. The heel caser has also provided the patient with instruction and education regarding the program. [employer] to assist with initial device set-up. Delivery Method: Vendor supplied Patient understands that this monitoring should not be used as a replacement for emergency and/or urgent care. If patient experiences any urgent symptoms, they are aware to call their security services manager for additional instructions. In emergency situations, they will either call 911 or report directly to the ED for further evaluation. documented in this encounter Plan of Treatment Upcoming Encounters Date Type Department Care Team (Late st Contact Info) Description 06/07/2024 9:00 AM EST Scheduled Telephone [facility], [facility] [address] [place] [address] Coordinator, [facility] [address] [place] [address] 06/07/2024 2:00 PM EST Telemedicine Cardiology [facility], [place] [address] [place] [address] [place] [address], Pharmacist Cardiology [facility] [address] [place] [address] 06/13/2024 11:15 AM EST Hospital Encounter ENDO [facility], Endoscopy Room OSS [address] [place] [phone] José Miguel Sifuentes MD [address] [place] [address] 06/13/2024 11:15 AM EST - 06/13/2024 11:45 AM EST Surgery ENDO O[facility], Endoscopy Room [facility] [address] [place] [phone] José Miguel Sifuentes MD [address] [place] [address] COLONOSCOPY FLEXIBLE PROXIMAL DIAGNOSTIC 06/28/2024 2:30 PM EST Home Visit [facility], [facility] [address] [place] [address] Love Stevens RN [address] [place] [address] 07/01/2024 2:20 PM EST Office Visit Family Practice [address] [place] [address] 293 [place] [address] Igor Mcconnell, [address] [place] [address] 08/08/2024 9:30 AM EST Nurse Only Ancillary [address] [place] [address] [place], Nurse [address] [place] [address] 10/27/2024 1:00 PM EDT Office Visit Sleep Disorders Ctr [facility] 132 [facility] [place] [phone] Lindsey Sheikh CRNP [address] [place] [address] 11/18/2024 2:00 PM EDT Office Visit Nephrology [address] [place] [address] ZeLuisa reyes PA-C [address] [place] [address] Scheduled Procedures Name Priority Associated Diagnoses Date/Ti [...] this encounter Medical Devices Implanted Type Area Skein Bleacher Device Identifier Shelf Expiration Date Model / Serial / Lot Lens Intraoc 21.0 - [id number] - [id number] Implanted:Qty: 1 on 01/22/2017 by Cheko Mcnamara MD at OR [facility] Right: Eye BAUSCH & LOMB 08/05/2021 [id number] / [id number] / [id number] Lens Intraoc 21.5 - [id number] - [id number] Implanted:Qty: 1 on 02/03/2017 by Cheko Mcnamara MD at OR [facility] Left: Eye BAUSCH & LOMB 09/02/2021 [id number] / [id number] / [id number] documented as of this encounter Visit Diagnoses [...] on CT scan Mixed dyslipidemia Mixed hyperlipidemia Hypertension- Primary Unspecified essential hypertension Special screening for malignant neoplasms, colon documented [...] were consensually agreed upon. Care Teams Precision Lens Polisher Relationship Specialty Start Date End Date Igor Mcconnell DO [address] [place] [address] PCP - General Internal Medicine 02/12/24 documented as of this encounter
--- OUTSIDE RECORDS SUMMARY | 2024-08-26 02:29 | External Medical Summary | Summary of Care ---
Author Name Unknown Organization [facility] Address [address] [facility] [address] Phone [phone] Care Team Providers Care Lathe Mechanic Name Role Phone Igor Mcconnell DO Primary Care Provider [phone] Reason for Visit * Reason Onset Date Comments Medical Nutrition Therapy 05/31/2024 Encounter Details Date Type Department Care Team (Latest Contact Info) Description 05/31/2024 3:30 PM EST Scheduled Telephone [facility], [facility] [address] [facility] [address] Mery Calderon, RDN [address] [facility] [address] Type 2 diabetes mellitus with hemoglobin A1c goal of less than 8.0% ([facility])* Allergies Active Allergy Reactions Criticality Noted [...] 38 UNITS WITH DINNER PLUS CORRECTION PER [facility] OR DIRECTED UP TO 120 UNITS PER DAY 120 mL 3 4 7:52 AM EDT 03/21/20 Active DIURETIC TITRATION PLAN If no improvement on day 3, contact [facility] for possible home visit 1 Each [...] 4 7:46 AM EDT 04/18/20 24 Active Ixkck-5-yech Ethyl Esters 1 GM Oral Capsule (Lovaza) [...] at rest Orthopnea Remote Patient Monitoring Vendor: [facility] [place] Device(s): Connected Scale Self - Management Plan [...] in the Comments) Remote Patient Monitoring Vendor: [employer] Device(s): Connected Scale Self - Management Plan [...] has been better controlled recently. Monitor using [employer] Cindy. Assessment & Plan (12/19/2022 11:13 AM [...] yrs 01/04/2018,08/03/2017,07/03 Pneumococcal Conjugate Vacci ne, 20-valent ([id number]) 06/09/2022 Pneumococcal Polysaccharide PPV23 (Pneumovax) 03/06/2020 RSV [...] Telephone Encounter - Mery Calderon RDN - 05/31/2024 11:29 AM EST NUTRITION PROGRESS NOTE - [facility] AT HOME TELEPHONIC [facility] Upon review of EMR and multiple conversations with Patient; Patient's PO intake/appetite are good, no food insecurity reported, and no open areas reported. This dietitian has been placing nutrition reinforcement calls since 11/25 to encourage Patient to limit/avoid/restrict low sodium/low sugar foods in all meals/snacks due to H/O DM and Cardiac Disease (info provided and mailed multiple times). All nutrition support/goals for Patient have been exhausted at this time. No further nutrition assistance will be provided at this time. No future phone calls will be scheduled. Encouraged Patient to contact [facility] at [phone] for any non- emergent changes/concerns while actively enrolled. Mery Calderon MS, RDN, LDN Clinical Dietitian [facility] 05/31/2024 documented in this encounter Plan of Treatment Upcoming Encounters Date Type Department Care Team (Late st Contact Info) Description 06/07/2024 2:00 PM EST Telemedicine Cardiology [facility], [place] [address] [place] [address] [facility], Pharmacist Cardiology [facility] [address] [place], [place] [id number] 06/13/2024 11:15 AM EST Hospital Encounter ENDO OSS, Endoscopy Room OSS [address] [place] [phone] José Miguel Sifuentes MD [address] [place] [address] 06/13/2024 11:15 AM EST - 06/13/2024 11:45 AM EST Surgery ENDO OSSC, Endoscopy Room [facility] [address] [place] [phone] José Miguel Sifuentes MD [address] [place] [address] COLONOSCOPY FLEXIBLE PROXIMAL DIAGNOSTIC 06/28/2024 2:30 PM EST Home Visit [facility], [facility] [place] [address] Love Stevens RN [address] [place] [address] 07/01/2024 2:20 PM EST Office Visit Family Practice [address] [place] [address] 293 [place] [address] Igor Mcconnell, 293 [facility] [place] [address] 08/08/2024 9:30 AM EST Nurse Only Ancillary [address] [place] [address] [place], Nurse [address] [place] [address] 10/27/2024 1:00 PM EDT Office Visit Sleep Disorders Ctr [facility] 132 [facility] [place] [phone] Lindsey Sheikh CRNP [address] [place] [address] 11/18/2024 2:00 PM EDT Office Visit Nephrology [address] [place] [address] ZeLuisa reyes PA-C [address] [place] [address] Scheduled Procedures Name Priority Associated Diagnoses Date/Ti [...] this encounter Medical Devices Implanted Type Area Pull Socket Assembler Device Identifier Shelf Expiration Date Model / Serial / Lot Lens Intraoc 21.0 - [id number] - [id number] Implanted:Qty: 1 on 01/22/2017 by Cheko Mcnamara MD at OR [facility] Right: Eye BAUSCH [employer] LOMB 08/05/2021 [id number] / [id number] / [id number] Lens Intraoc 21.5 - [id number] - [id number] Implanted:Qty: 1 on 02/03/2017 by Cheko Mcnamara MD at OR [facility] Left: Eye BAUSCH & LOMB 09/02/2021 [id number] / [id number] / [id number] documented as of this encounter Visit Diagnoses [...] right eye and macular edema, unspecified whether district manager insulin use (HCC) Chronic obstructive pulmonary disease, [...] and were consensually agreed upon. Care Teams Lathe Mechanic Relationship Specialty Start Date End Date Igor Mcconnell DO [address] [place] [address] PCP - General Internal Medicine 02/12/24 documented as of this encounter
--- OUTSIDE RECORDS SUMMARY | 2024-08-26 02:30 | External Medical Summary | Summary of Care ---
Author Name Unknown Organization [facility] Address [address] [facility] [place] [address] Phone [phone] Care Team Providers Care Septic Cleaner Name Role Phone Igor Mcconnell DO Primary Care Provider [phone] Reason for Visit * Reason Onset Date Comments [facility]: Maintenance 05/30/2024 Encounter Details Date Type Department Care Team (Late st Contact Info) Description 05/30/2024 Telephone [facility], [facility] [address] [facility] [place] [address] Janeth Kelley, [facility] [address] [facility] [address] [facility]: Maintenance Allergies Active Allergy Reactions Criticality Noted Date Comments Metolazone Renal complications 11/10/2023 Note prior DTP with metolazone resulted in acute renal failure Other Allergy (See Comments) Rash Low 10/13/2022 1+ cocamidopropyl betaine Sglt2 Inhibitors Other (Please comment) High 09/04/2020 Genital infection Sulfa Antibiotics Rash 10/15/2016 documented as of this encounter (statuses as of 05/30/2024) Medications Aspirin 81 MG Tablet Take 1 [...] A1c goal of less than 7.0% ([facility]) INJECT UNDER THE SKIN 100 UNITS TWICE [...] 38 UNITS WITH DINNER PLUS CORRECTION PER [facility] OR DIRECTED UP TO 120 UNITS PER DAY 120 mL 3 4 7:52 AM EDT 03/21/20 Active DIURETIC TITRATION PLAN If no improvement on day 3, contact [facility] for possible home visit 1 [...] 3 4 7:46 AM EDT 04/18/20 Active Nlath-1-owuo Ethyl Esters 1 GM Oral Capsule (Lovaza) [...] as of this encounter (statuses as of 05/30/2024) Active Problems Patient Care Coordination No te Formatting of this note migh t be different from the original. Heart Failure Self-Management and Exacerbation Plan "RED FLAG" HF Symptoms: Leg Swelling Abdominal Bloating Increased dyspnea on exertion Increased shortness of breath at rest Orthopnea Remote Patient Monitoring Vendor: [facility] [...] in the Comments) Remote Patient Monitoring Vendor: [facility] Device(s): Connected Scale Self - Management Plan [...] as of this encounter (statuses as of 05/30/2024) Resolved Problems Problem Noted Date Diagnosed Date [...] has been better controlled recently. Monitor using anchor.travel Cindy. Assessment & Plan (12/19/2022 11:13 AM [...] as of this encounter (statuses as of 05/30/2024) Immunizations Name Administration Dates Next Due COVID-19 mRNA, LNP-s, No Pre serve, 2-Dose Series (Moderna) 12/10/2020,11/12/2020 Hepatitis B, 20+ yrs 01/04/2018,08/03/2017,07/03 Pneumococcal Conjugate Vacci ne, 20-valent ([id number]) 06/09/2022 Pneumococcal Polysaccharide PPV23 (Pneumovax) 03/06/2020 RSV [...] Team (Late st Contact Info) Description 05/31/2024 9:00 AM EST Telemedicine Cardiology [facility], [place] [address] [place] [address] [place] [address], Pharmacist Cardiology [place] [address] [place] [address] 05/31/2024 3:30 PM EST Scheduled Telephone [facility], [facility] [address] [facility] [place] [address] Mery Calderon RDN [address] [facility] [place] [address] 06/13/2024 11:15 AM EST Hospital Encounter ENDO OSSC, Endoscopy Room OSS [address] [place] [phone] José Miguel Sifuentes MD [address] [place] [address] 06/13/2024 11:15 AM EST - 06/13/2024 11:45 AM EST Surgery ENDO O[facility]C, Endoscopy Room OSS 132 [facility] [place] [phone] José Miguel Sifuentes MD 132 [facility] [place] [address] COLONOSCOPY FLEXIBLE PROXIMAL DIAGNOSTIC 06/28/2024 2:30 PM EST Home Visit [facility], [facility] 132 [facility] [place] [address] Love Stevens, ANNE MARIE 132 [facility] [place] [address] 07/01/2024 2:20 PM EST Office Visit Family Practice [address] [place] [address] 293 [facility] [place] [address] Igor Mcconnell, 293 [place] [address] 08/08/2024 9:30 AM EST Nurse Only Ancillary [address] [place] [address] [place], Nurse [address] [place] [address] 10/27/2024 1:00 PM EDT Office Visit Sleep Disorders Ctr [facility] 132 [facility] [place] [phone] Lindsey Sheikh CRNP 132 [facility] [place] [address] 11/18/2024 2:00 PM EDT Office Visit Nephrology [address] [place] [address] ZeLuisa reeys PA-C [address] [place] [address] Scheduled Procedures Name Priority Associated Diagnoses Date/Ti [...] this encounter Medical Devices Implanted Type Area Jammer Hooker Device Identifier Shelf Expiration Date Model / Serial / Lot Lens Intraoc 21.0 - [id number] - [id number] Implanted:Qty: 1 on 01/22/2017 by Cheko Mcnamara MD at OR [facility] Right: Eye BAUSCH & LOMB 08/05/2021 [id number] / [id number] / [id number] Lens Intraoc 21.5 - [id number] - [id number] Implanted:Qty: 1 on 02/03/2017 by Cheko Mcnamara MD at OR [facility] Left: Eye BAUSCH & LOMB 09/02/2021 [id number] / [id number] / [id number] documented as of this encounter Advance Directives [...] and were consensually agreed upon. Care Teams Septic Cleaner Relationship Specialty Start Date End Date Igor Mcconnell DO [address] [place] [address] PCP - General Internal Medicine 8/9/24 documented as of this encounter
--- OUTSIDE RECORDS SUMMARY | 2024-08-26 02:30 | External Medical Summary | Summary of Care ---
Author Name Unknown Organization [facility] Address [address] [place] [address] Phone [phone] Care Team Providers Care Latent Fingerprint Examiner Name Role Phone FaizachuIgor DO Primary Care Provider [phone] Reason for Visit * Reason Onset Date Comments Remote Patient Monitoring Alert 05/30/2024 Encounter Details Date Type Department Care Team (Late st Contact Info) Description 05/30/2024 Home Monitoring Care Coordination [address] [place] [address] HepCandy alejo LPN HTN, goal below 130/80* Allergies Active Allergy Reactions Criticality Noted Date [...] goal of less than 7.0% ([facility]) Use as directed every 14 days . 6 Each 3 04/24/20 22 Active Metamucil 28.3 % Oral Powder (Psyllium) Take by mouth daily. At least 1 hour after other medications Active OneTouch Verio In Vitro Strip (Glucose Blood)Indications: Uncontrolled type 2 diabetes mellitus with hyperglycemia ([facility]) USE TO TEST BLOOD GLUCOSE 3 TIMES [...] goal of less than 7.0% ([facility]) INJECT UNDER THE SKIN 100 UNITS TWICE DAILY OR DIRECTED 90 mL 3 4 10:11 AM EDT 01/18/20 24 025 Active Additional Information Patient taking differently: 90 Units Subcutaneous BID(Non-Specified), Reported on 05/30/2024 Torsemide 20 MG Oral Tablet (Demadex)Indicatio ns:Chronic heart failure with preserved ejection fraction ([facility]),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 disease ([facility]) Take 4 Tablets by mouth in the [...] current use of insulin ([facility]) Inject 2 mg under the skin once [...] 38 UNITS WITH DINNER PL[facility] CORRE[facility] OR DIRECTED UP TO 120 UNITS PER DAY 120 mL 3 4 7:52 AM EDT 03/21/20 Active DIURETIC TITRATION PLAN If no improvement on day 3, contact [facility] for possible home visit 1 Each [...] 4 7:46 AM EDT 04/18/20 24 Active Ytozp-[id number]-[id number] Ethyl Esters 1 GM Oral Capsule (Lovaza) [...] at rest Orthopnea Remote Patient Monitoring Vendor: [facility] Device(s): Connected Scale Self - Management Plan [...] in the Comments) Remote Patient Monitoring Vendor: [employer] Device(s): Connected Scale Self - Management Plan [...] has been better controlled recently. Monitor using Content [employer]. Assessment & Plan (12/19/2022 11:13 AM EDT): [...] yrs 01/04/2018,08/03/2017,07/03 Pneumococcal Conjugate Vacci ne, 20-valent ([id number]) 06/09/2022 Pneumococcal Polysaccharide PPV23 (Pneumovax) 03/06/2020 RSV [...] Progress Notes * Clary Gregg RPh - 05/30/2024 3:51 PM EST 05/21/24 16:53 05/22/24 16:22 05/23/24 11:18 05/24/24 09:44 05/25/24 10:34 05/26/24 17:06 05/27/24 12:21 05/29/24 19:14 Systolic BP 128 mm/Hg [1] 128 mm/Hg [1] 128 mm/Hg [1] 124 mm/Hg [1] 130 mm/Hg [1] 131 mm/Hg [1] 126mm/Hg [1] 141 mm/Hg (H) [1] Diastolic BP 64 mm/Hg [1] 70 mm/Hg [1] 59 mm/Hg [1] 58 mm/Hg [1] 59 mm/Hg [1] 63 mm/Hg [1] 59 mm/Hg[1] 61 mm/Hg [1] Pulse 75 bpm [1] 74 bpm [1] 70 bpm [1] 72 bpm [1] 63 bpm [1] 65 bpm [1] 69 bpm [1] 69 bpm [1] (H): Data is abnormally high [1] CH:VITAL_READING_TYPE=SPOT CH:PERIPHERAL_BRAND=[facility] BP at goal. OV with nephrology today, BP controlled. Clary Gregg RPh, PharmD Clinical Pharmacist - [facility] 05/30/2024, 3:51 PM [phone] * Candy Katz LPN - 05/30/2024 8:57 AM EST Tony Delong [id number] Tony Delong is currently participating in the [facility] Hypertension Management Program and hada reading on 05/29/2024 of 141/61. Pt has alerted for an Average BP over 7 days >/= 130/80 . Parameters are currently set as follows: Average BP over 7 days >/= 130/80 Singular Systolic BP Reading </= 90 or >/=180 Singular Diastolic BP Reading </= 50 or >/=120 Patient is not reporting new symptoms or [...] Description 05/31/2024 9:00 AM EST Telemedicine Cardiology [facility] [place] [address] [place] [address] [place] [address], Pharmacist Cardiology [facility] [address] [place] [address] 05/31/2024 3:30 PM EST Scheduled Telephone [facility], [facility] [address] [facility] [place] [address] Mery Calderon, SUDHIR [address] [facility] [place] [address] 06/13/2024 11:15 AM EST Hospital Encounter ENDO [facility], Endoscopy Room [facility] [address] [place] [phone] José Miguel Sifuentes MD [address] [place] [address] 06/13/2024 11:15 AM EST - 06/13/2024 11:45 AM EST Surgery ENDO [facility], Endoscopy Room [facility] [address] [place] [phone] José Miguel Sifuentes MD [address] [place] [address] COLONOSCOPY FLEXIBLE PROXIMAL DIAGNOSTIC 06/28/2024 2:30 PM EST [facility] Visit [facility], [facility] [address] [facility] [place] [address] Love Stevens, ANNE MARIE [address] [place] [address] 07/01/2024 2:20 PM EST Office Visit Family Practice [address] [place] [address] [address] [place] [address] Igor Mcconnell, [address] [facility] [place] [address] 08/08/2024 9:30 AM EST Nurse Only Ancillary [address] [place] [address] [place], Nurse [address] [place] [address] 10/27/2024 1:00 PM EDT Office Visit [facility] [address] [facility] [place] [phone] Lindsey Sheikh CRNP [address] [facility] [place] [address] 11/18/2024 2:00 PM EDT Office Visit Nephrology [address] [place] [address] Luisa Ching PA-C [address] [place] [address] Scheduled Procedures Name Priority Associated Diagnoses Date/Ti [...] this encounter Medical Devices Implanted Type Area Logistics Operations Manager Device Identifier Shelf Expiration Date Model / Serial / Lot Lens Intraoc 21.0 - [id number] - [id number] Implanted:Qty: 1 on 01/22/2017 by Cheko Mcnamara MD at OR [facility] Right: Eye [employer] 08/05/2021 [id number] / [id number] / [id number] Lens Intraoc 21.5 - [id number] - [id number] Implanted:Qty: 1 on 02/03/2017 by Cheko Mcnamara MD at OR [facility] Left: Eye [employer] 09/02/2021 [id number] / [id number] / [id number] documented as of this encounter Visit Diagnoses [...] right eye and macular edema, unspecified whether alf insulin use (HCC) Chronic obstructive pulmonary disease, unspecified COPD type (HCC) Sacroiliitis (HCC) Sacroiliitis, not elsewhere classified Other specified peripheral vascular diseases (HCC) Coronary artery calcification seen on CT scan Mixed dyslipidemia Mixed hyperlipidemia HTN, goal below 130/80- Primary Unspecified essential hypertension Special screening for [...] and were consensually agreed upon. Care Teams Latent Fingerprint Examiner Relationship Specialty Start Date End Date Igor Mcconnell DO [address] [facility] [place] [address] PCP - General Internal Medicine 02/12/24 documented as of this encounter
--- OUTSIDE RECORDS SUMMARY | 2024-08-26 02:30 | External Medical Summary | Summary of Care ---
Author Name Unknown Organization [facility] Address [address] [facility] [address] Phone [phone] Care Team Providers Care Rx Specialist Name Role Phone Raquel Mcconnell DO Primary Care Provider [phone] Reason for Visit * Reason Comments Chronic Kidney Disease (CKD) Encounter Details Date Type Department Care Team (Late st Contact Info) Description 05/30/2024 2:20 PM EST Office Visit Nephrology [address] [place] [phone] Mikal Covington MD [address] [facility] [place] [address] 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)*; HTN, goal below 130/80; Albuminuria; History of acute renal failure; Gout, unspecified cause, unspecified chronicity, unspecified site Allergies Active Allergy Reactions Criticality Noted Date [...] times daily - E11.9 300 Each 3 022 Active Additional Information Patient taking differently:, Use 3 times daily - E11.9,Indications: diabetes, Reported on 07/14/2022 FreeStyle Cindy 2 SensorIndications :Type 2 diabetes mellitus with hemoglobin A1c goal of less than 7.0% (HCC) Use as directed every 14 days . 6 Each 3 Active Metamucil 28.3 % Oral Powder (Psyllium) Take by mouth daily. At least 1 hour after other medications Active OneTouch Verio In Vitro Strip (Glucose Blood)Indications :Uncontrolled type 2 diabetes mellitus with hyperglycemia (HCC) USE TO TEST BLOOD GLUCOSE 3 TIMES A DAY. DX: E11.9 300 Strip 3 09/23/19 24 4:43 PM EDT Active Ondansetron 4 MG Oral Tablet Disintegrating (Zofran) Place 1 Tablet on tongue every 8 hours as needed for Nausea. 30 Tablet 01/19/20 24 1:03 PM EDT Active Tresiba FlexTouch 200 UNIT/ML Subcutaneous Solution Pen-injectorIndic ations:Type 2 diabetes mellitus with hemoglobin A1c goal of less than 7.0% (HCC) INJECT UNDER THE SKIN 100 UNITS TWICE DAILY OR DIRECTED 90 mL 3 04/25/20 24 10:11 AM EDT 024 2024 Active Additional Information Patient taking differently: 90 Units Subcutaneous BID(Non-Specified), Reported on 05/30/2024 Torsemide 20 MG Oral Tablet (Demadex)Indicati ons:Chronic heart failure with preserved ejection fraction (HCC),Hypertensiv e 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 chronic kidney disease (HCC) Take 4 Tablets by mouth in the morning and 4 Tablets before bedtime. Or take as directed. 240 Tablet 5 04/18/20 24 4:03 PM EDT 024 Active Additional Information Patient taking differently:80 mg [...] skin once a week. 2 mL 11 04/28/20 1:20 PM EDT Active Clotrimazole-Beta methasone 1-0.05 % External Cream (Lotrisone) Apply small amount of cream to scrotal area two times a day 90 g 1 03/02/20 5:44 PM EDT Active Allopurinol 300 MG Oral Tablet (Zyloprim)Indicat ions:Gout, arthropathy Take 1 Tablet by mouth in the morning. 100 Tablet 03/18/20 7:16 AM EDT Active NovoLOG FlexPen 100 UNIT/ML Subcutaneous Solution Pen-injectorIndic ations:Type 2 diabetes mellitus with hemoglobin A1c goal of less than 7.0% (HCC) INJECT UNDER THE SKIN 20 UNITS AT BREAKFAST, 26 UNITS AT LUNCH, 38 UNITS WITH DINNER PLUS CORRECTION PER [facility] OR DIRECTED UP TO 120 UNITS PER DAY 120 mL 03/22/20 7:52 AM EDT 024 Active DIURETIC TITRATION PLAN If no improvement on day 3, contact [facility] for possible home visit 1 Each Active Evolocumab 140 MG/ML Subcutaneous Solution Auto-injector (Repatha SureClick)Indicat ions:Dyslipidemia , goal LDL below 100,Mixed dyslipidemia Inject 140 mg under the skin every 14 days. 6 mL 3 Active Unifine Pentips 31G X 8 MM (Insulin Pen Needle)Indication s:Type 2 diabetes mellitus with hemoglobin A1c goal of less than 7.0% (HCC) USE TO INJECT INSULINS 5 TIMES DAILY 500 Each 3 04/19/20 7:46 AM EDT 024 Active Aylso-6-bztj Ethyl Esters 1 GM Oral Capsule (Lovaza) Take 2 Capsules by mouth in the morning and 2 Capsules before bedtime. 360 Capsule 1 10/15/20 24 7:46 AM EDT Active metOLazone 2.5 MG Oral Tablet (Zaroxolyn)Indica tions:Hypertensiv e 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 chronic kidney disease (HCC) Take 1 tablet by mouth as needed for > 3 lb weight gain in 1 day, or > 5 lb weight gain in 1 week. 100 Tablet 5 04/19/20 24 7:46 AM EDT Active Omeprazole 20 MG Oral Capsule Delayed Release (PriLOSEC) TAKE 1 CAPSULE BY MOUTH IN THE MORNING AND 1 CAPSULE BEFORE BEDTIME 30 MINUTES BEFORE A MEAL 180 Capsule 1 05/04/20 24 7:11 AM EDT 2024 Active Carvedilol 25 MG Oral Tablet (Coreg)Indication s:HTN, goal below 140/90 TAKE ONE TABLET BY MOUTH EVERY MORNING AND TAKE ONE TABLET BY MOUTH BEFORE BEDTIME 200 Tablet 3 05/19/20 24 2:43 PM EST 2024 Active Potassium Chloride Gaviota ER 20 MEQ Oral Tablet Extended Release Take 2 Tablets by mouth in the morning and 2 Tablets before bedtime. 360 Tablet 3 Active Spironolactone 25 MG Oral Tablet (Aldactone) Take 1 Tablet by mouth in the morning. 90 Tablet 3 Active hydrALAZINE HCl 25 MG Oral Tablet (Apresoline)Indic ations:HTN, goal below 140/90 Take 1 Tablet by mouth in the morning and 1 Tablet at noon and 1 Tablet before bedtime. 300 Tablet 3 04/04/20 24 5:37 PM EDT 2023 Discontinued predniSONE 5 MG Oral Tablet (Deltasone) As directed for first part of taper. 20 mg (4 tabs) x 5 days, then 10 mg (2 tabs) x 5 days, then 5 mg (1 tab) x 5 days, then 2 mg (separate prescription) x 5 days then stop. 35 Tablet 024 2023 Discontinued predniSONE 1 MG Oral Tablet (Deltasone) As directed for last part of taper >> 20 mg (separate prescription) x 5 days, then 10 mg (separate prescription) x 5 days, then 5 mg (separate prescription) x 5 days, then 2 mg (2 tabs) x 5 days then stop. 10 Tablet 024 2023 Discontinued Potassium Chloride Gaviota ER 20 MEQ Oral Tablet Extended Release Take 2 tablets by mouth in morning 1 tablet at noon and 2 tablets at bedtime 450 Tablet 3 05/24/20 24 11:14 AM EST 024 2023 Discontinued documented as of this encounter (statuses as of 05/30/2024) Active Problems Patient Care Coordination No te Formatting of this note migh t be different from the original. Heart Failure Self-Management and Exacerbation Plan "RED FLAG" HF Symptoms: Leg Swelling Abdominal Bloating Increased dyspnea on exertion Increased shortness of breath at rest Orthopnea Remote Patient Monitoring Vendor: Myla Device(s): Connected Scale Self - Management Plan [...] stairs") Medication Regimen: Beta Ritchie Therapy: Carvedilol BINTA Inhibitor/ARB Therapy: Lisinopril Diuretic therapy: Torsemide SGLT2 Inhibitor: No Current SGLT2 (Describe in the Comments) Remote Patient Monitoring Vendor: Myla Device(s): Connected Scale Self - Management Plan [...] Regimen: o Beta Ritchie Therapy: Carvedilol o BINTA Inhibitor/ARB Therapy: No BINTA/ARB/ARNI secondary to: Currently holding due to NEMESIO [...] Regimen: o Beta Ritchie Therapy: Carvedilol o BINTA Inhibitor/ARB Therapy: Other: none o Diuretic therapy: [...] Regimen: o Beta Ritchie Therapy: Carvedilol o BINTA Inhibitor/ARB Therapy: Other: none o Diuretic therapy: [...] Regimen: o Beta Ritchie Therapy: Carvedilol o BINTA Inhibitor/ARB Therapy: No BINTA/ARB/ARNI o Diuretic therapy: Bumex Self - Management [...] (ex: Victoza, Trulicity, Ozempic) DM Secondary Prevention BINTA Inhibitor / ARB Aspirin Yearly Diabetic Eye [...] has been better controlled recently. Monitor using Baihe Cindy. Assessment & Plan (12/19/2022 11:13 AM [...] yrs 01/04/2018,08/03/2017,07/03 Pneumococcal Conjugate Vacci ne, 20-valent ([id number]) 06/09/2022 Pneumococcal Polysaccharide PPV23 (Pneumovax) 03/06/2020 RSV [...] Reading Time Taken Comments Blood Pressure 118/66 05/30/2024 2:42 PM EST Pulse 68 05/30/2024 2:42 PM EST Temperature 36.9 C (98.4 F) 05/30/2024 2:42 PM ES T Respiratory Rate 18 05/30/2024 2:42 PM EST Oxygen Saturation 98% 05/30/2024 2:42 PM EST Inhaled Oxygen Concentration - - Weight 129.3 kg (285 lb) 05/30/2024 2:42 PM EST Height - - Body Mass Index 38.65 03/01/2024 2:23 PM EDT documented in this encounter Patient Instructions * Patient Instructions* Mikal Covington MD - 05/30/2024 2:57 PM EST -stop hydralazine -lower potassium to 40 mEq (2 x 20 mEq tabs) twice daily -start spironolactone 25 mg daily -after about 10 days, check lab -keep doing weights, blood pressures for G@H -avoid medicines like aleve, advil, ibuprofen, aspirin more than 81 mg daily and other NSAIDS whichare not good for kidney patients. Take only tylenol (acetaminophen) up to 2000 mg daily as needed for pain or as directed by your primary care provider. documented in this encounter Progress Notes * Mikal Covington MD - 05/30/2024 2:41 PM EST NEPHROLOGY CLINIC NOTE Nephrology [address] [place] [address] 05/30/2024, 2:41 PM Patient Name: Tony Delong BACKGROUND: 64 year old male presents for f/u of proteinuric CKD 4 w/ frequent NEMESIO; s/p December 2023 for hospital for [facility] admission October 19 to 2023 for stage II NEMESIO on CKD. CKD 4 attributed to diabetic kidney disease and HTN nephrosclerosis. 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 Followed in the past with Dr.Donelan CASAS. Injured L knee 2017 tendons and again 02/2022 >> 04/2022 [facility] . In wake of this had severe sacroilitis, follows w/ pain mgt. Had been on naproxen as recently as February 2021 but had abrupt decline in eGFR at that time in setting of longstanding albuminuria and stopped nsaids ever since. Follows closely w/ [facility] nursing/case mgt including for daily weights. At hospital d/c in April 2023 was 287 lb. More recently 12/13/23, weights were running in the 287-288 range but did get as high as 290 in 291 during the first 10 days of December. In January 2023 in the wake of several issues w/ NEMESIO was feeling improved after several med changes; however prior to this had been feeling so poorly for prior few weeks that he reprted labelling his belongings for distribution after his ; tearful at times reporting this -Admitted to [facility] 10/19-10/22 w/ stage II NEMESIO on CKD >> presentign creat 4.3, down to 3.8 by hosp d/c w/ d/c on 40 mg daily torsemide. Prior baseline had been 2. Presumptive cause volume depletion/overdiuretsis No EtOH. Tries best to limit sodium. Drinks a lot of fluids and struggles w/ this History of genital infection with SGLT2 inhibitor. Has TEDS, does not use much [...] to 60 oz daily (about 1.8 L). CKD to ESRD Status CKD Education: , Modality Education: 03/2023 Preferred Modality: undecided Access Surgeon Referral: , Access Placed: , Transplant Listing: , TODAY 12/16/2023: . Nephrology consultation, last Nephrology progress note, discharge summary from this visit were all reviewed in detail with the office visit Since hosp d/c, followed closely by [facility] and he feels they've kept him out of hospital. Current diuretics: torse 40 x 2; K 20 x 2 Fell 11/30 after passing out while sitting down on toilet; crashed through shower doors; incontinentof bowels; wts again up slightly in 290-291 lb range after running more in 287-288. Had N and fell;had n/v/d. Had fallen 1-2 wks prior to that while out fishing in rain / rain gear >> legs gave out getting out of boat. No other falls in year prior; some minor lacerations both times but no serious injuries. DTP triggered 12/12 b/c of wt gain from 287-288 lbb > 290-291 lb>> plan was torse 100 mg bidx 4 days started by nephro 12/10. Just finished today. Lost 4 lb first day and then nothing and wts even upcrept Not perfect on diet or fluid intake >> not sure what to do differently; feels right on edge of not being able to breathe. Follows 60 oz daily FR and does his best on low sodium. 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 Pt does admit he cheats but does follow most days. Does speak w/ provider contracting consultant re low Na diet. Using CPAP faithfully/no fail. Continues w/ remote BP monitoring and bluetooth weights Daily wts running mid- low 270s and needed metolazone once past 10 days for 278 lb February 2024 TODAY 05/30/2024: joint pain markedly improved after mutliple courses of prednisone and uptitrationof allopurinol. Working at wt loss on ozempic. Dry weight is 270-272 lb lately. Used to do remote BP plus G@H weights >> now all BP weights under G@H. Carries edema when he gets it around diaphragm >> feeling good lately. Tires quickly >> but able to do part of a day; not shut down as he was by pain at last OV REVIEW OF SYSTEMS General: + fatigue, wts as above Respiratory: No cough,No wheezing,+shortness of breath with exertion worsening Cardiovascular:No chest pain, No palpitations, and No syncope; no worsening orthopnea Gastrointestinal: No nausea, vomiting, diarrhea No blood in stools No abdominal pain Urinary: No dysuira, No hematuria. No flank pain Musculoskeletal: denies abd wall tightness or edema; minimal LE edema Skin: No itching No presyncopal or orthostatic symptoms; no falls Current Outpatient Medications Medication Sig Dispense Refill Aspirin 81 MG Tablet Take 1 Tablet by mouth every evening. B Complex Capsule Take 1 Cap by mouth daily. CPAP every night at bedtime. Tresiba FlexTouch 200 UNIT/ML Subcutaneous Solution Pen-injector INJECT UNDER THE SKIN 100 UNITS TWICE DAILY OR DIRECTED (Patient taking differently: Inject 90 Units under the skin 2 times a day.)90 mL 3 Torsemide 20 MG Oral Tablet (Demadex) Take 4 Tablets by mouth in the morning and 4 Tablets before bedtime. Or take as directed. (Patient taking differently: Take 4 Tablets by mouth 2 times a day. Morning and afternoon) 240 Tablet 5 Vitamin D 125 MCG (5000 UT) Oral Capsule Take 1 Capsule by mouth in the morning. Coenzyme Q10 200 MG Oral Capsule Take 1 Capsule by mouth at bedtime. Acetaminophen ER 650 MG Oral Tablet Extended Release (Tylenol ER) Take 1-2 Tablets by mouth every 8hours as needed. (Max dose 3000 mg per day) Ozempic (2 MG/DOSE) 8 MG/3ML Subcutaneous Solution Pen-injector (Semaglutide (2 MG/DOSE)) Inject 2 mg under the skin once a week. 2 mL 11 Allopurinol 300 MG Oral Tablet (Zyloprim) Take 1 Tablet by mouth in the morning. 100 Tablet 3 NovoLOG FlexPen 100 UNIT/ML Subcutaneous Solution Pen-injector INJECT UNDER THE SKIN 20 UNITS AT BREAKFAST, 26 UNITS AT LUNCH, 38 UNITS WITH DINNER PLUS CORRECTION PER [facility] OR DIRECTED UP TO120 UNITS PER DAY 120 mL 3 DIURETIC TITRATION PLAN If no improvement on day 3, contact [facility] for possible home visit 1 Each 0 Evolocumab 140 MG/ML Subcutaneous Solution Auto-injector (BonafideClick) Inject 140 mg under the skin every 14 days. 6 mL 3 Wuyzd-1-rriw Ethyl Esters 1 GM Oral Capsule (Lovaza) [...] mouth in the morning. 90 Tablet 3 OneTouch Delica Lancets 33G Use 3 times daily - E11.9 (Patient taking differently: Use 3 times daily - E11.9) 300 Each 3 FreeStyle Cindy 2 Sensor Use as directed every 14 days . 6 Each 3 Metamucil 28.3 % Oral Powder (Psyllium) Take by mouth daily. At least 1 hour after other medications (Patient not taking: Reported on 05/30/2024) OneTouch Verio In Vitro Strip (Glucose Blood) USE TO TEST BLOOD GLUCOSE 3 TIMES A DAY. DX: E11.9 300 Strip 3 Ondansetron 4 MG Oral Tablet Disintegrating (Zofran) Place 1 Tablet on tongue every 8 hours as needed for Nausea. 30 Tablet 0 Clotrimazole-Betamethasone 1-0.05 % External Cream (Lotrisone) Apply small amount of cream to scrotal area two times a day 90 g 1 Unifine Pentips 31G X 8 MM (Insulin Pen Needle) USE TO INJECT INSULINS 5 TIMES DAILY 500 Each 3 No current facility-administered medications for this visit. Review of patient's allergies indicates: Allergen Reactions Sglt2 Inhibitors Other (Please comment) Genital infection Metolazone Renal complications Note prior DTP with metolazone resulted in acute renal failure Sulfa Antibiotics Rash Other Allergy (See Comments) Rash 1+ cocamidopropyl betaine PHYSICAL EXAMINATION: BP Readings from Last 6 Encounters: 05/30/24 118/66 05/24/24 124/58 05/02/24 122/58 03/29/24 132/58 03/16/24 124/60 03/11/24 122/68 Wt Readings from Last 6 Encounters: 05/30/24 129.3 kg (285 lb) 03/16/24 124.2 kg (273 lb 14.4 oz) 03/11/24 130.6 kg (288 lb) 03/03/24 132.2 kg (291 lb 8 oz) 03/01/24 130.6 kg (288 lb) 02/12/24 134.8 kg (297 lb 3.2 oz) Pulse Readings from Last 6 Encounters: 05/30/24 68 05/24/24 72 05/02/24 70 03/29/24 72 03/16/24 72 03/11/24 62 NAD, oriented x 3, ambulatory w/ cane, obese RRR w/o g/r; SM, no edema CTAB w/ reasonable air mvt NT abd, +BS, soft No cyanosis or clubbing No rash No tremor, focal or global weakness; fluent speech, excellent historian LABS: Recent Labs Units 05/26/24 1023 05/13/24 1307 04/13/24 1022 04/01/24 1426 SODIUM - [facility] mmol/L 137 139 137 137 POTASSIUM - [facility] mmol/L 3.5 3.3* 3.0* 3.0* CHLORIDE - [facility] mmol/L 95* 94* 93* 93* CO2 - [facility] mmol/L 27 27 ESTIMATED GLOMERULAR FILTRATION RATE - [facility] mL/min 34* 27* 32* 23* BUN - [facility] mg/dL 56* 77* 70* 63* CREATININE - [facility] mg/dL 2.1* 2.6* 2.3* 3.0* Latest Reference Range & Units 02/24/24 14:26 03/01/24 12:12 03/11/24 08:04 04/01/24 14:26 Uric Acid 3.4 - 7.0 mg/dL 14.5 (H) 12.9 (H) 10.2 (H) 9.9 (H) (H): Data is abnormally high Recent Labs Units 05/13/24 1307 03/11/24 0804 02/24/24 1426 02/12/24 1438 10/19/23 1258 08/24/23 1421 11/26/22 1202 11/19/22 1532 HGB g/dL 11.4* 10.4* 11.0* 10.2* < > 12.0* < > 12.3* FERRITIN - [facility] ng/mL 63 -- -- -- -- 181 -- 105 TRANSFERRIN SATURATION PERCENT - [facility] % 9* -- -- -- -- 12* -- 19 < > = values in this interval not displayed. Recent Labs Units 05/26/24 1023 05/13/24 1307 04/13/24 1022 04/01/24 1426 11/06/23 1550 10/26/23 0844 10/23/23 0000 07/29/23 1409 06/11/23 1111 09/12/22 1148 09/02/22 1237 CALCIUM - [facility] mg/dL 9.0 9.8 9.6 10.0 < > 9.2 -- < > 8.9 < > 9.0 PHOSPHORUS - [facility] mg/dL -- 4.3 -- -- -- 2.8 -- -- 4.0 -- -- PHOSPHORUS-OUTSIDE LAB MG/DL -- -- -- -- -- -- 3.3 -- -- -- -- 25-HYDROXY VITAMIN D - [facility] ng/mL -- 69 -- -- -- -- -- -- -- -- 37 PTH - [facility] pg/mL -- 72* -- -- -- -- -- -- -- -- -- < > = values in this interval not displayed. Recent Labs Units 02/12/24 1438 10/21/23 0000 06/11/23 1111 04/01/23 1531 HEMOGLOBIN A1C - [facility] % 8.5* -- 8.2* 7.2* HEMOGLOBIN, O3C-NIIOSBS LAB -- 7.6 -- -- Recent Labs Units 05/18/24 0648 05/13/24 1307 06/11/23 1111 09/22/22 1449 ALBUMIN / CREATININE RATIO, URINE - [facility] mg/g Creat 30* 19 172* 784* Recent Labs Units 06/11/23 1111 09/22/22 1449 CLARITY, URINE - [facility] Clear Clear GLUCOSE, URINE - [facility] mg/dL Negative 100* BILIRUBIN, URINE - [facility] Negative Negative KETONE, URINE - [facility] mg/dL Negative Negative SPECIFIC GRAVITY, URINE - [facility] 1.017 1.011 BLOOD, URINE - [facility] Negative Negative PH, URINE - [facility] Units 6.0 6.0 PROTEIN, URINE - [facility] mg/dL 30* 30* UROBILINOGEN, URINE - [facility] mg/dL Normal Normal NITRITE, URINE - [facility] Negative Negative ESTERASE, URINE - [facility] Negative Negative BACTERIA, URINE - [facility] /HPF 0-25 0-25 WBC, URINE - [facility] /HPF 0-2 0-2 RBC, URINE - [facility] /HPF 0-2 0-2 ASSESSMENT AND PLAN: 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) (Primary) - NEPHROLOGY FOLLOW UP APPT (DEPARTMENT USE ONLY); Future; Expected date: 09/27/2024 - BASIC METABOLIC PANEL; Future; Expected date: 06/06/2024 - URIC ACID; Future; Expected date: 06/06/2024 HTN, goal below 130/80 Albuminuria History of acute renal failure Gout, unspecified cause, unspecified chronicity, unspecified site Other orders - Potassium Chloride Gaviota ER 20 MEQ Oral Tablet Extended Release; Take 2 Tablets by mouth in the morning and 2 Tablets before bedtime. - Spironolactone 25 MG Oral Tablet (Aldactone); Take 1 Tablet by mouth in the morning. CKD 4 (eGFR 25-35 but off of junior antag and Binta/ARB) w/ 30 mg proteinuria Clinically stable -work at getting back on GDMT for HF and CKD >> start w/ spironolactone as below then losartan -did not otlerate SGLT2i -K adjustment and f/u labs as below BP at goal but needs right meds -cont remote monitoring w/ G@[facility] and work at accessing those as needed -cont torsemide, coreg, emtolozone current doses -change hdyralazine for anika as above H/o hyperuricemia >> f/u uric acid levels and titrate allopurinol as needed Patient Instructions -stop hydralazine -lower potassium to 40 mEq (2 x 20 mEq tabs) twice daily -start spironolactone 25 mg daily -after about 10 days, check lab -keep doing weights, blood pressures for G@H -avoid medicines like aleve, advil, ibuprofen, aspirin more than 81 mg daily and other NSAIDS whichare not good for kidney patients. Take only tylenol (acetaminophen) up to 2000 mg daily as needed for pain or as directed by your primary care provider. Mikal Covington MD Nephrology [address] [place] [address] CC: REF: MIKAL COVINGTON [address] [place] [address] (office) [phone] (fax) PCP: RAQUEL MCCONNELL [place], [place] [id number] This chart was completed in part utilizing [employer] Speech Voice Recognition Software. Randomword insertions, pronoun errors, and incomplete sentences are an occasional consequence of this system due to software limitations, and ambient noise. Any questions or concerns about the content, text, or information contained within the body of this dictation should be directly addressed to the provider for clarification. documented in this encounter Nursing Notes * Leora Beth RN - 05/30/2024 2:44 PM EST Follow up visit today. Transitioning to [facility] bp and weight monitoring. documented in this encounter Plan of Treatment Upcoming Encounters Date Type Department Care Team (Late st Contact Info) Description 05/31/2024 9:00 AM EST Telemedicine Cardiology [facility] [place] [address] [place] [address] [facility], Pharmacist Cardiology [facility] [address] [place], [place] [id number] 05/31/2024 3:30 PM EST Scheduled Telephone [facility], [facility] [address] [facility] [place] [address] Kvng Mery Ann, RDN [address] [facility] [place] [address] 06/13/2024 11:15 AM EST Hospital Encounter ENDO OSS, Endoscopy Room [facility] [address] [facility] [place] [phone] José Miguel Sifuentes MD 132 [facility] [place] [address] 06/13/2024 11:15 AM EST - 06/13/2024 11:45 AM EST Surgery ENDO OSS, Endoscopy Room [facility] 132 [facility] [place] [phone] José Miguel Sifuentes MD 132 [facility] [place] [address] COLONOSCOPY FLEXIBLE PROXIMAL DIAGNOSTIC 06/28/2024 2:30 PM EST Home Visit [facility], [facility] [address] [facility] [place] [address] Love Stevens RN 132 [facility] [place] [address] 07/01/2024 2:20 PM EST Office Visit Family Practice [address] [place] [address], [place] [address] [place] [phone] Raquel Mcconnell DO [address] [place] [address] 08/08/2024 9:30 AM EST Nurse Only Ancillary Lazaro Hyde[address] [place] [address] [place], Nurse [address] [place] [address] 10/27/2024 1:00 PM EDT Office Visit [facility] [address] [place] [phone] Lindsey Sheikh CRNP [address] [place] [address] 11/18/2024 2:00 PM EDT Office Visit Nephrology [address] [place] [address] Luisa Ching PA-C [address] [place] [address] Scheduled Orders Name Type Priority Associated Diagnoses Orde r Schedule BASIC METABOLIC PANEL Lab Routine 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) Expected: 06/06/2024 (Approximate), Expires: 05/30/2025 URIC ACID Lab Routine 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) Expected: 06/06/2024, Expires: 05/30/2025 Scheduled Procedures Name Priority Associated Diagnoses Date/Ti [...] 05/13/2024, 083 07/2021, 09/12/2020 Phosphate 05/13/2025 05/13/2024, 042 08/2023, [...] this encounter Medical Devices Implanted Type Area Palliative Care Nurse Device Identifier Shelf Expiration Date Model / Serial / Lot Lens Intraoc 21.0 - [id number] - [id number] Implanted:Qty: 1 on 01/22/2017 by Cheko Mcnamara MD at OR [facility] Right: Eye [employer] 08/05/2021 [id number] / [id number] / [id number] Lens Intraoc 21.5 - [id number] - [id number] Implanted:Qty: 1 on 02/03/2017 by Cheko Mcnamara MD at OR [facility] Left: Eye [employer] 09/02/2021 [id number] / [id number] / [id number] documented as of this encounter Visit Diagnoses Diagnosis Hypertensive 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 (HCC)- Primary [place]O on CPAP Obstructive sleep apnea (adult) (pediatric) Type 2 diabetes mellitus with stage 3b chronic kidney disease, with long-term current use of insulin ([facility]) Advanced care planning/counseling discussion- Primary Other specified counseling Hypertensive 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 (HCC) [place]O on CPAP Obstructive sleep apnea (adult) (pediatric) Mixed dyslipidemia Mixed hyperlipidemia Type 2 diabetes mellitus with hemoglobin A1c goal of less than 8.0% ([facility]) Arreola's esophagus with high grade dysplasia Arreola's esophagus Hypertensive 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 (HCC)- Primary Type 2 diabetes mellitus with stage 3b chronic kidney disease, with long-term current use of insulin ([facility]) Arreola's esophagus with high grade dysplasia Arreola's esophagus 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)- Primary Chronic obstructive pulmonary disease, unspecified COPD type ([facility]) Type 2 diabetes mellitus with stage 3b chronic kidney disease, with long-term current use of insulin ([facility]) Mixed dyslipidemia Mixed hyperlipidemia 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)- Primary BMI 40.0-44.9, adult ([facility]) Body Mass Index 40.0-44.9, adult 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, unspecified whether medical terminologist insulin use ([facility]) Chronic obstructive pulmonary disease, unspecified COPD type (HCC) Sacroiliitis (HCC) Sacroiliitis, not elsewhere classified Other specified peripheral vascular diseases (HCC) Coronary artery calcification seen on CT scan Mixed dyslipidemia Mixed hyperlipidemia 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)- Primary HTN, goal below 130/80 Unspecified essential hypertension Albuminuria Proteinuria History of acute renal failure Personal history of other disorder of urinary system Gout, unspecified cause, unspecified chronicity, unspecified site Special screening for malignant neoplasms, colon documented [...] and were consensually agreed upon. Care Teams Rx Specialist Relationship Specialty Start Date End Date Raquel Mcconnell DO [address] [place] [address] PCP - General Internal Medicine 02/12/24 documented as of this encounter
--- OUTSIDE RECORDS SUMMARY | 2024-08-26 02:31 | External Medical Summary | Summary of Care ---
Author Name Unknown Organization [facility] Address [address] [place] [address] Phone [phone] Care Team Providers Care Internal Audit Director Name Role Phone FaizachuIgor DO Primary Care Provider [phone] Reason for Visit * Reason Onset Date Comments Home Monitoring Orders Only 05/30/2024 Encounter Details Date Type Department Care Team (Late st Contact Info) Description 05/30/2024 Home Monitoring Care Coordination [address], [place] [id number] Shivani Magallon MD [address] [facility] [place] [id number] Hypertension* Allergies Active Allergy Reactions Criticality Noted [...] least 1 hour after other medications Active Evolocumab 140 MG/ML Subcutaneous Solution Auto-injector (Repatha SureClick)Indicati ons:Dyslipidemia, goal LDL below 100,Mixed dyslipidemia Inject 140 mg under the skin every 14 days. 6 mL 3 4 3:24 PM EDT 06/19/20 23 Active hydrALAZINE HCl 25 MG Oral Tablet (Apresoline)Indica tions:HTN, goal below 140/90 Take 1 Tablet by mouth in the morning and 1 Tablet at noon and 1 Tablet before bedtime. 300 Tablet 3 4 5:37 PM EDT 08/12/19 24 Active OneTouch Verio In Vitro Strip (Glucose Blood)Indications: Uncontrolled type 2 diabetes mellitus with hyperglycemia ([facility] [...] differently: 90 Units Subcutaneous BID(Non-Specified), Reported on 02/12/2024 Torsemide 20 MG Oral Tablet (Demadex)Indicatio ns:Chronic [...] mg OralBID(Non-Specified), Morning and afternoon, Reported on 02/12/2024 Vitamin D 125 MCG (5000 UT) Oral [...] use of insulin ([facility]) Inject 2 mg under the skin once a week. 2 mL 11 4 1:20 PM EDT 02/16/20 Active Clotrimazole-Betam ethasone 1-0.05 % External Cream (Lotrisone) Apply small amount of cream to scrotal area two times a day 90 g 1 4 5:44 PM EDT 03/02/20 24 Active predniSONE 5 MG Oral Tablet (Deltasone) As directed for first part of taper. 20 mg (4 tabs) x 5 days, then 10 mg (2 tabs) x 5 days, then 5 mg (1 tab) x 5 days, then 2 mg (separate prescription) x 5 days then stop. 35 Tablet 03/03/20 24 Active predniSONE 1 MG Oral Tablet (Deltasone) As directed for last part of taper >> 20 mg (separate prescription) x 5 days, then 10 mg (separate prescription) x 5 days, then 5 mg (separate prescription) x 5 days, then 2 mg (2 tabs) x 5 days then stop. 10 Tablet 03/03/20 24 Active Allopurinol 300 MG Oral Tablet (Zyloprim)Indicati ons:Gout, arthropathy Take 1 Tablet by mouth in the morning. 100 Tablet 3 4 7:16 AM EDT 03/17/20 Active NovoLOG FlexPen 100 UNIT/ML Subcutaneous Solution Pen-injectorIndica tions:Type 2 diabetes mellitus with hemoglobin A1c goal of less than 7.0% ([facility]) INJECT UNDER THE SKIN 20 UNITS AT BREAKFAST, 26 UNITS AT LUNCH, 38 UNITS WITH DINNER PLUS CORRECTION PER [place] [facility] OR DIRECTED UP TO 120 UNITS PER DAY 120 mL 3 4 7:52 AM EDT 03/21/20 24 Active DIURETIC TITRATION PLAN If no improvement on day 3, contact [facility] for possible home visit 1 Each 03/24/20 [...] 4 7:46 AM EDT 04/18/20 24 Active [id number] Ethyl Esters 1 GM Oral Capsule (Lovaza) [...] 2 tablets at bedtime 450 Tablet 3 4 11:14 AM EST 05/23/20 24 Active documented as of this encounter (statuses as of 05/30/2024) Active Problems Patient Care Coordination No te Formatting of this note migh t be different from the original. Heart Failure Self-Management and Exacerbation Plan "RED FLAG" HF Symptoms: Leg Swelling Abdominal Bloating Increased dyspnea on exertion Increased shortness of breath at rest Orthopnea Remote Patient Monitoring Vendor: [facility] Device(s): Connected Scale Self - Management Plan [...] the Comments) Remote Patient Monitoring Vendor: [facility] Device(s): Connected Scale Self - Management Plan [...] yrs 01/04/2018,08/03/2017,07/03 Pneumococcal Conjugate Vacci ne, 20-valent ([id number]) 06/09/2022 Pneumococcal Polysaccharide PPV23 (Pneumovax) 03/06/2020 RSV [...] No 05/02/2024 Does the household have a [facility] source of income? (Household - for ages [...] as of this encounter Progress Notes * Oswaldo Jones Community Health Writer Technical Publications - 05/30/2024 9:[address] Magallon, Patient has been transferred to at . Pérez at will readmit him to remote blood pressure monitoringthrough their program and order him a new blood pressure cuff. Thank you, Oswaldo Jones Community Programs Specialist documented in this encounter Plan of Treatment Upcoming Encounters Date Type Department Care Team (Late st Contact Info) Description 05/30/2024 1:00 PM EST Telemedicine Cardiology [facility] [place] [address] [place] [facility] [address] [facility], Pharmacist Cardiology [facility] [address] [place] [facility] [address] Arrived 05/30/2024 2:20 PM EST Office Visit Nephrology [address] [place] [address] Shivani Magallon MD [address] [place] [address] 05/31/2024 3:30 PM EST Scheduled Telephone [facility], [facility] [address] [facility] [place] [address] M[address] Calderon RDN [address] [facility] [place] [address] 06/13/2024 11:15 AM EST Hospital Encounter ENDO OSS[facility], Endoscopy Room [facility] [address] [place] [phone] José Miguel Sifuentes MD [address] [place] [address] 06/13/2024 11:15 AM EST - 06/13/2024 11:45 AM EST Surgery ENDO OSSC, Endoscopy Room [facility] [address] [place] [phone] José Miguel Sifuentes MD [address] [place] [address] COLONOSCOPY FLEXIBLE PROXIMAL DIAGNOSTIC 06/28/2024 2:30 PM EST Home Visit [facility], [facility] [address] [place] [address] Love Stevens RN [address] [place] [address] 07/01/2024 2:20 PM EST Office Visit Family Practice [address] [place] [address], [place] [address] [place] [address] Igor Mcconnell DO [address] [place] [address] 08/08/2024 9:30 AM EST Nurse Only Ancillary Lazaro Hyde[address] [place] [address] [place], Nurse [address] [place] [address] 10/27/2024 1:00 PM EDT Office Visit Sleep Disorders Ctr [facility] [address] [facility] [place] [phone] Lindsey Sheikh CRNP [address] [facility] [place] [address] Scheduled Procedures Name Priority Associated Diagnoses Date/Ti [...] 11/23/2024 05/26/2024, 02/2024, 04/13/2024, Additional history exists Nephrology Referral 03/03/2025 03/03/2024 Hgb 05/13/2025 05/13/2024, 12/2023, 02/24/2024, Additional history exists PTH 05/13/2025 05/13/2024, 02/05, 09/12/2020 Phosphate 05/13/2025 05/13/2024, 10/05, 10/23/2023, Additional history exists Albumin/Creatinine Ratio 05/18/2025 024, 05/13/2024, 06/11/2023, Additional history exists Diabetic Eye Exam 05/19/2025 05/19/2024, , 04/11/2024, Additional history exists O2 ASSESSMENT COMPLETED IN PAST YEAR FOR COPD 05/24/2025 05/24/2024 Arreola's Esophagus Surveilance 06/16/2025 06/16/2022, 06/16/2022, 03/20/2022, [...] this encounter Medical Devices Implanted Type Area Ore Dryer Device Identifier Shelf Expiration Date Model / Serial / Lot Lens Intraoc 21.0 - [id number] - [id number] Implanted:Qty: 1 on 01/22/2017 by Cheko Mcnamara MD at OR [facility] Right: Eye [employer] 08/05/2021 [id number] / [id number] / [id number] Lens Intraoc 21.5 - [id number] - [id number] Implanted:Qty: 1 on 02/03/2017 by Cheko Mcnamara MD at OR [facility] Left: Eye [employer]OMB 09/02/2021 [id number] / [id number] / [id number] documented as of this encounter Visit Diagnoses [...] hemoglobin A1c goal of less than 8.0% ([facility]) Arreola's esophagus with high grade dysplasia Arreola's esophagus Hypertensive 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 (HCC)- Primary Type 2 diabetes mellitus with stage 3b chronic kidney disease, with long-term current use of insulin ([facility]) Arreola's esophagus with high grade [...] eye and macular edema, unspecified whether intermediate insulin use ([facility]) Chronic obstructive pulmonary disease, unspecified COPD type ([facility]) Sacroiliitis (HCC) Sacroiliitis, not elsewhere classified Other specified peripheral vascular diseases ([facility]) Coronary artery calcification seen on CT scan [...] and were consensually agreed upon. Care Teams Internal Audit Director Relationship Specialty Start Date End Date Igor Mcconnell DO [address] [facility] [place] [address] PCP - General Internal Medicine 02/12/24 documented as of this encounter
--- OUTSIDE RECORDS SUMMARY | 2024-08-26 02:31 | External Medical Summary | Summary of Care ---
Author Name Unknown Organization [facility] Address [address] [place] [address] Phone [phone] Care Team Providers Care Supportive Employment Case Manager Name Role Phone Igor Mcconnell DO Primary Care Provider Reason for Visit * Reason Comments Dosage Adjustment Via Phone (anticoag Cl inic) Hyperlipidemia Encounter Details Date Type Department Care Team (Late st Contact Info) Description 03/24/2024 2:10 PM EDT Telemedicine Cardiology [facility] [address], [place] [id number] [place] [address], Pharmacist Cardiology Hf [address], [place] [id number] Mixed dyslipidemia*; Dyslipidemia, goal LDL below 100 Allergies Active [...] every 14 days . 6 Each 3 022 Active Metamucil 28.3 % Oral Powder (Psyllium) Take by mouth daily. At least 1 hour after other medications Active hydrALAZINE HCl 25 MG Oral Tablet (Apresoline)Indic ations:HTN, goal below 140/90 Take 1 Tablet by mouth in the morning and 1 Tablet at noon and 1 Tablet before bedtime. 300 Tablet 3 04/04/20 24 5:37 PM EDT 024 Active OneTouch Verio In Vitro Strip (Glucose Blood)Indications :Uncontrolled type 2 diabetes mellitus with hyperglycemia ([facility]) USE TO TEST BLOOD GLUCOSE 3 TIMES A DAY. DX: E11.9 300 Strip 3 09/23/19 24 4:43 PM EDT 024 Active Ondansetron 4 MG Oral Tablet Disintegrating (Zofran) Place 1 Tablet on tongue every 8 hours as needed for Nausea. 30 Tablet 01/19/20 24 1:03 PM EDT 024 Active Tresiba FlexTouch 200 UNIT/ML Subcutaneous Solution Pen-injectorIndic ations:Type 2 diabetes mellitus with hemoglobin A1c goal of less than 7.0% (HCC) INJECT UNDER THE SKIN 100 UNITS TWICE DAILY OR DIRECTED 90 mL 3 04/25/20 24 10:11 AM EDT 024 2024 Active Additional Information Patient taking differently: 90 Units Subcutaneous BID(Non-Specified), Reported on 02/12/2024 Torsemide 20 MG Oral Tablet (Demadex)Indicati ons:Chronic [...] disease, with long-term current use of insulin ([facility]) Inject 2 mg under the skin once a week. 2 mL 11 04/28/20 24 1:20 PM EDT Active Clotrimazole-Beta methasone 1-0.05 % External Cream (Lotrisone) Apply small amount of cream to scrotal area two times a day 90 g 1 03/02/20 5:44 PM EDT Active predniSONE 5 MG Oral Tablet (Deltasone) As directed for first part of taper. 20 mg (4 tabs) x 5 days, then 10 mg (2 tabs) x 5 days, then 5 mg (1 tab) x 5 days, then 2 mg (separate prescription) x 5 days then stop. 35 Tablet Active predniSONE 1 MG Oral Tablet (Deltasone) As directed for last part of taper >> 20 mg (separate prescription) x 5 days, then 10 mg (separate prescription) x 5 days, then 5 mg (separate prescription) x 5 days, then 2 mg (2 tabs) x 5 days then stop. 10 Tablet Active Allopurinol 300 MG Oral Tablet (Zyloprim)Indicat ions:Gout, arthropathy Take 1 Tablet by mouth in the morning. 100 Tablet 03/18/20 24 7:16 AM EDT Active NovoLOG FlexPen 100 UNIT/ML Subcutaneous Solution Pen-injectorIndic ations:Type 2 diabetes mellitus with hemoglobin A1c goal of less than 7.0% ([facility]) INJECT UNDER THE SKIN 20 UNITS AT BREAKFAST, 26 UNITS AT LUNCH, 38 UNITS WITH DINNER PLUS CORRECTION PER [facility] OR DIRECTED UP TO 120 UNITS PER DAY 120 mL 3 03/22/20 24 7:52 AM EDT Active DIURETIC TITRATION PLAN If no improvement on day 3, contact [facility] for possible home visit 1 Each 024 Active Evolocumab 140 MG/ML Subcutaneous Solution Auto-injector (Repatha SureClick)Indicat ions:Dyslipidemia , goal LDL below 100,Mixed dyslipidemia Inject 140 mg under the skin every 14 days. 6 mL 3 024 Active BD Pen Needle Short U/F 31G X 8 MM (Insulin Pen Needle)Indication s:Type 2 diabetes mellitus with hemoglobin A1c goal of less than 7.0% (HCC) USE TO INJECT INSULINS 5 TIMES DAILY 500 Each 3 08/31/19 24 12:07 PM EST 023 2023 Discontinued(R efill) Carvedilol 25 MG Oral Tablet (Coreg)Indication s:HTN, goal below 140/90 TAKE ONE TABLET BY MOUTH EVERY MORNING AND TAKE ONE TABLET BY MOUTH BEFORE BEDTIME 200 Tablet 3 02/08/20 24 3:20 PM EDT 023 2023 Discontinued(R efill) Evolocumab 140 MG/ML Subcutaneous Solution Auto-injector (Repatha SureClick)Indicat ions:Dyslipidemia , goal LDL below 100,Mixed dyslipidemia Inject 140 mg under the skin every 14 days. 6 mL 3 03/28/20 24 3:24 PM EDT 023 2023 Discontinued(R efill) Nrbki-2-ooec Ethyl Esters 1 GM Oral Capsule (Lovaza) Take 2 Capsules by mouth in the morning and 2 Capsules before bedtime. 360 Capsule 1 12/10/19 24 10:00 AM EDT 024 2023 Discontinued(R efill) Omeprazole 20 MG Oral Capsule Delayed Release (PriLOSEC) TAKE 1 CAPSULE BY MOUTH IN THE MORNING AND 1 CAPSULE BEFORE BEDTIME 30 MINUTES BEFORE A MEAL 180 Capsule 1 01/25/20 24 6:53 AM EDT 024 2023 Discontinued(R efill) Potassium Chloride Gaviota ER 20 MEQ Oral Tablet Extended Release Take 1 Tablet by mouth in the morning and 1 Tablet before bedtime. 180 Tablet 3 02/19/20 24 2:08 PM EDT 024 2023 Discontinued metOLazone 2.5 MG Oral Tablet (Zaroxolyn)Indica tions:Hypertensiv e 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 chronic kidney disease (HCC) Take 1 tablet as needed for > 3 lb weight gain in 1 day, or > 5 lb weight gain in 1 week. Do not start before March 14, 2024. 024 2023 Discontinued Rosuvastatin Calcium 5 MG Oral Tablet (Crestor)Indicati ons:Mixed dyslipidemia Take 1 Tablet by mouth in the morning. 90 Tablet 3 03/24/20 24 3:01 PM EDT 024 2023 Discontinued(M edication/Dose Changed) documented as of this encounter (statuses as of 05/30/2024) Active Problems Patient Care Coordination No te Formatting of this note migh t be different from the original. Heart Failure Self-Management and Exacerbation Plan "RED FLAG" HF Symptoms: Leg Swelling Abdominal Bloating Increased dyspnea on exertion Increased shortness of breath at rest Orthopnea Remote Patient Monitoring Vendor: [facility] [...] in the Comments) Remote Patient Monitoring Vendor: GiveNext Device(s): Connected Scale Self - Management Plan [...] yrs 01/04/2018,08/03/2017,07/03 Pneumococcal Conjugate Vacci ne, 20-valent ([id number]) 06/09/2022 Pneumococcal Polysaccharide PPV23 (Pneumovax) 03/06/2020 RSV [...] as of this encounter Progress Notes * Willa Parr, [facility] - 03/24/2024 1:53 PM EDT PCSK-9 Inhibitor Follow Up After connecting to the patient via telephone, the patient was identified by name and date of . Patient was then informed that this was a telephone call only visit. The patient agreed to participate Visit Disposition: Status check/routine follow up Duration: 5 minutes Primary Patient Care Nursing Assistant/Ordering Provider: Gilbert Hunter MD HPI: Tony Delong is a 64 year old year old male. History: Dyslipidemia, T2DM, Coronary Calcification, Liver Cirrhosis Target LDL: < 55 Clinical ASCVD/Risk Score: The ASCVD Risk score (Chris ROWE, et al., 2019) failed to calculate for the following reasons: The patient has a prior ID or stroke diagnosis Patient Active Problem List Diagnosis Type 2 [...] Allergy (See Comments) Rash 1+ cocamidopropyl betaine LABS: Lab Results Component Value Date/Time LDL (CALCULATED)-OUTSIDE LAB 110 (A) 12/21/2017 12:00 AM LDL (CALCULATED)-OUTSIDE LAB 106 12/11/2016 12:00 AM LDL CHOLESTEROL (CALCULATED) - [facility] 83 02/12/2024 02:38 PM LDL CHOLESTEROL (CALCULATED) - [facility] 152 (H) 01/05/2023 08:27 AM LDL CHOLESTEROL (CALCULATED) - [facility] 109 10/23/2022 09:12 AM LDL CHOLESTEROL (DIRECT MEASURE) - [facility] 89 07/10/2023 10:57 AM LDL CHOLESTEROL (DIRECT MEASURE) - [facility] 76 04/01/2023 03:31 PM LDL CHOLESTEROL (DIRECT MEASURE) - [facility] 264 (H) 01/25/2021 11:58 AM ASSESSMENT There are no diagnoses linked to this encounter. Patient is on the following medication(s): Lovaza 1 g, 2 caps BID Repatha 140 mg SC every 14 days PLAN OF ACTION Medication Regimen: INITIATE Rosuvastatin 5 mg for patient is still not at goal LDL < 55. The patient's PCP, Dr. Mcconnell, was contacted prior to initiating and is in agreement to start a low dose statin due to resolved elevated LFTs (see TE 03/24) Labs Needed: yes; Lipid panel and liver function test in ~10 weeks; prior to [facility] telemed appt (ordered) Follow-Up Appointment(s): Pharmacist: Cherie Olivares pharmacist 2 (05/30/24) Physician: No follow up needed Willa Parr RPh [facility] Clinical Pharmacist Cardiology Department 03/24/2024,1:53 PM documented in this encounter Miscellaneous Notes * Addendum Note - Willa Parr RPh - 05/30/2024 2:14 PM ESTAddended by: WILLA PARR on: 05/30/2024 02:14 PM Modules accepted: Orders documented in this encounter Plan of Treatment Upcoming Encounters Date Type Department Care Team (Late st Contact Info) Description 05/30/2024 2:20 PM EST Office Visit Nephrology [address] [place] [address] Shivani Magallon MD [address] [place] [address] Arrived 05/31/2024 9:00 AM EST Telemedicine Cardiology [facility] [place] [address] [place] [address] [place] [address], Pharmacist Cardiology [facility] [address] [place] [facility] [place] [address] 05/31/2024 3:30 PM EST Scheduled Telephone [facility], [facility] [address] [facility] [place] [address] Mery Calderon RDN [address] [facility] [place] [address] 06/13/2024 11:15 AM EST Hospital Encounter ENDO OSSC, Endoscopy Room [facility] [address] [place] [phone] José Miguel Sifuentes MD [address] [place] [address] 06/13/2024 11:15 AM EST - 06/13/2024 11:45 AM EST Surgery ENDO OSSC, Endoscopy Room [facility] [address] [address] [place] [phone] José Miguel Sifuentes MD [address] [place] [address] COLONOSCOPY FLEXIBLE PROXIMAL DIAGNOSTIC 06/28/2024 2:30 PM EST Home Visit [facility], [facility] [address] [place] [address] Love Stevens RN [address] [place] [address] 07/01/2024 2:20 PM EST Office Visit Family Practice [address] [facility] [place] [address] [place] [address] Igor Mcconnell DO 293 [place] [address] 08/08/2024 9:30 AM EST Nurse Only Ancillary Lazaro Hyde[address] [place] [address] [place], Nurse [address] [place] [address] 10/27/2024 1:00 PM EDT Office Visit Sleep Disorders Ctr [facility] [address] [facility] [place] [phone] Lindsey Sheikh CRNP 132 [facility] [place] [address] Scheduled Procedures Name Priority Associated Diagnoses Date/Ti [...] 05/26/2024, 11/0 02/2024, 04/13/2024, Additional history exists Nephrology Referral 03/03/2025 03/03/2024 Hgb 05/13/2025 05/13/2024, 09/0 12/2023, 02/24/2024, Additional [...] this encounter Medical Devices Implanted Type Area Perforator Operator Device Identifier Shelf Expiration Date Model / Serial / Lot Lens Intraoc 21.0 - [id number] - [id number] Implanted:Qty: 1 on 01/22/2017 by NaimaCheko colon MD at OR [facility] [address] [address] Right: Eye [employer] LOMB 08/05/2021 [id number] / [id number] / [id number] Lens Intraoc 21.5 - [id number] - [id number] Implanted:Qty: 1 on 02/03/2017 by Cheko Mcnamara MD at OR [facility] [address] [address] Left: Eye BAUSCH & LOMB 09/02/2021 [id number] / [id number] / [id number] documented as of this encounter Results * (ABNORMAL) LIPID PANEL WITH DIRECT LDL IF TG IS HIGH (05/13/2024 1:07 PM EST) Triglycerides 216(H) <=174 mg/dL 05/14/2024 4:04 AM EST [facility] Comment: Triglyceride Reference Ranges (mg/dL): <150 Acceptable 150-174 Borderline high 175-499 High >=500 Very high Cholesterol 196 <200 mg/dL 05/14/2024 4:04 AM EST [facility] Comment: Total Cholesterol Reference Ranges (mg/dL): <200 Desirable 200-239 Borderline high >=240 High HDL Cholesterol 27(L) >39 mg/dL 4:04 AM EST [facility] Comment: HDL Cholesterol Reference Ranges (mg/dL): >=60 High (Desirable) <50 Low (Undesirable) For Females <40 Low (Undesirable) For Males Non-HDL Cholesterol 169(H) <=159 mg/dL 05/14/2024 4:04 AM EST [facility] Comment: Non-HDL Cholesterol Reference Range (mg/dL): <100 Target level for high risk ASCVD patient <130 Optimal for general population 130-159 Near optimal for general population 160-189 Borderline High 190-219 High >=220 Very High LDL Cholesterol 126 <=129 mg/dL 05/14/2024 4:04 AM EST [facility] Comment: LDL Cholesterol Reference Ranges (mg/dL): <70 Target level for high risk ASCVD patient <100 Optimal for general population 100-129 Near optimal for general population 130-159 Borderline high 160-189 High >=190 Very high Blood Venous blood specimen / Unknown Venipuncture / Unknown 05/13/2024 1:07 PM EST 05/13/2024 1:07 PM EST Willa Chanell [facility] LAB BLOOD ORDERABLES Fin al Result Performing Organization Address [facility] Co de Phone Number [facility] [address] [place] [address] * (ABNORMAL) HEPATIC FUNCTION PANEL (04/01/2024 2:26 PM EDT) [facility] Albumin 4.3 3.8 - 5.0 g/dL 04/02/2024 12:59 AM EDT LABORATORY [facility] AST 75(H) 10 - 50 U/L 04/02/2024 12:59 AM EDT [facility] Alkaline Phosphatase 112 35 - 130 U/L 04/02/2024 12:59 AM EDT [facility] ALT 61(H) 10 - 50 U/L 04/02/2024 12:59 AM EDT [facility] Bilirubin, Total 1.0 <=1.2 mg/dL 04/02/2024 12:59 AM EDT [facility] Bilirubin, Direct 0.3 0.0 - 0.3 mg/dL 04/02/2024 12:59 AM EDT LABORATORY [facility] Protein 8.3 6.0 - 8.3 g/dL 04/02/2024 12:59 AM EDT [facility] Blood Venous blood specimen / Unknown Venipuncture / Unknown 04/01/2024 2:26 PM EDT 04/01/2024 2:26 PM EDT Willa Lua [facility] LAB BLOOD ORDERABLES Fin al Result Performing Organization Address City/[facility]/ZIP Co de Phone Number [facility] [address] [place] [address] documented in this encounter Visit Diagnoses Diagnosis [...] on CT scan Mixed dyslipidemia Mixed hyperlipidemia Mixed dyslipidemia- Primary Mixed hyperlipidemia Dyslipidemia, goal LDL below 100 Other and unspecified hyperlipidemia Special screening for [...] and were consensually agreed upon. Care Teams Supportive Employment Case Manager Relationship Specialty Start Date End Date Igor Mcconnell DO [address] [facility] [place] [address] PCP - General Internal Medicine 02/12/24 documented as of this encounter
--- OUTSIDE RECORDS SUMMARY | 2024-08-26 02:31 | External Medical Summary | Summary of Care ---
Author Name Unknown Organization [facility] Address [address] [place] [address] Phone [phone] Care Team Providers Care Solvent Plant Treater Name Role Phone Igor Mcconnell DO Primary Care Provider [phone] Reason for Visit * Reason Comments Hyperlipidemia Encounter Details Date Type Department Care Team (Late st Contact Info) Description 05/30/2024 1:00 PM EST Telemedicine Cardiology [facility] [address] [place] [address] [place] [address], Pharmacist Cardiology [facility] [address] [place] [address] Dyslipidemia, goal LDL below 100* Allergies Active [...] 2 diabetes mellitus with hyperglycemia ([facility]) USE TO TEST BLOOD GLUCOSE 3 TIMES [...] long-term current use of insulin ([facility]) Inject 2 mg under the skin once a week. 2 mL 11 4 1:20 PM EDT 02/16/20 Active Clotrimazole-Betam ethasone 1-0.05 % External Cream (Lotrisone) Apply small amount of cream to scrotal area two times a day 90 g 1 4 5:44 PM EDT 03/02/20 Active predniSONE 5 MG Oral Tablet (Deltasone) As directed for first part of taper. 20 mg (4 tabs) x 5 days, then 10 mg (2 tabs) x 5 days, then 5 mg (1 tab) x 5 days, then 2 mg (separate prescription) x 5 days then stop. 35 Tablet 03/03/20 Active predniSONE 1 MG Oral Tablet (Deltasone) As directed for last part of taper >> 20 mg (separate prescription) x 5 days, then 10 mg (separate prescription) x 5 days, then 5 mg (separate prescription) x 5 days, then 2 mg (2 tabs) x 5 days then stop. 10 Tablet 03/03/20 Active Allopurinol 300 MG Oral Tablet (Zyloprim)Indicati ons:Gout, arthropathy Take 1 Tablet by mouth in the morning. 100 Tablet 3 4 7:16 AM EDT 03/17/20 Active NovoLOG FlexPen 100 UNIT/ML Subcutaneous Solution Pen-injectorIndica tions:Type 2 diabetes mellitus with hemoglobin A1c goal of less than 7.0% ([facility]) INJECT UNDER THE SKIN 20 UNITS AT BREAKFAST, 26 UNITS AT LUNCH, 38 UNITS WITH DINNER PLUS CORRECTION PER [facility] OR DIRECTED UP TO 120 UNITS PER DAY 120 mL 3 4 7:52 AM EDT 03/21/20 Active DIURETIC TITRATION PLAN If no improvement on day 3, contact [facility] for possible home visit 1 Each 09/19/20 24 Active Evolocumab 140 MG/ML Subcutaneous Solution [...] 4 7:46 AM EDT 04/18/20 24 Active [id number] Ethyl Esters 1 GM Oral Capsule (Lovaza) [...] 4 11:14 AM EST 05/23/20 24 Active Evolocumab 140 MG/ML Subcutaneous Solution Auto-injector (Repatha SureClick)Indicati ons:Dyslipidemia, goal LDL below 100,Mixed dyslipidemia Inject 140 mg under the skin every 14 days. 6 mL 3 4 3:24 PM EDT 06/19/20 23 024 Discontin ued(Refil l) documented as of [...] yrs 01/04/2018,08/03/2017,07/03 Pneumococcal Conjugate Vacci ne, 20-valent ([id number]) 06/09/2022 Pneumococcal Polysaccharide PPV23 (Pneumovax) 03/06/2020 RSV [...] as of this encounter Progress Notes * Cirilo Ansari RPh - 05/30/2024 2:04 PM EST Received message that patient was unavailable for 1:00 apt today and would like a later time or to be rescheduled. Called @ 2pm and pt stated he was not available at this time. Appt rescheduled for 05/31/2024 [place], Pharmacist Cardiology [facility] Cirilo Ansari RPh, PharmD [facility] Pharmacist Medication Therapy Disease Management 05/30/2024, 2:04 PM documented in this encounter Plan of Treatment Upcoming Encounters Date Type Department Care Team (Late st Contact Info) Description 05/31/2024 9:00 AM EST Telemedicine [facility]iology [facility] [place] [address] [place] [address] [place] [address], Pharmacist Cardiology [facility] [address] [place] [address] 05/31/2024 3:30 PM EST Scheduled Telephone [facility], [facility] [address] [facility] [place] [address] Mery Calderon, RDN [address] [facility] [place] [address] 06/13/2024 11:15 AM EST Hospital Encounter ENDO OSSC, Endoscopy Room [facility] [address] [place] [address] José Miguel Sifuentes MD [address] [place] [address] 06/13/2024 11:15 AM EST - 06/13/2024 11:45 AM EST Surgery ENDO OSSC, Endoscopy Room [facility] [address] [place] [phone] José Miguel Sifuentes MD [address] [place] [address] COLONOSCOPY FLEXIBLE PROXIMAL DIAGNOSTIC 06/28/2024 2:30 PM EST Home Visit [facility], [facility] [address] [place] [address] Love Stevens, ANNE MARIE [address] [place] [address] 07/01/2024 2:20 PM EST Office Visit Family Practice [address] [facility] [place] [address] [place] [address] Igor Mcconnell DO 293 [facility] [place] [address] 08/08/2024 9:30 AM EST Nurse Only Ancillary Lazaro Hyde[address] [place] [address] [place], Nurse [address] [place] [address] 10/27/2024 1:00 PM EDT [facility] 132 [facility] [place] [phone] Lindsey Sheikh CRNP [address] [facility] [address] Scheduled Procedures Name Priority Associated Diagnoses Date/Ti [...] this encounter Medical Devices Implanted Type Area Smasher Hand Device Identifier Shelf Expiration Date Model / Serial / Lot Lens Intraoc 21.0 - [id number] - [id number] Implanted:Qty: 1 on 01/22/2017 by Cheko Mcnamara MD at OR [facility] Right: Eye [employer]CH [employer] LOMB 08/05/2021 [id number] / [id number] / [id number] Lens Intraoc 21.5 - [id number] - [id number] Implanted:Qty: 1 on 02/03/2017 by Cheko Mcnamara MD at [facility] Left: Eye BAUSCH & LOMB 09/02/2021 [id number] / [id number] / [id number] documented as of this encounter Visit Diagnoses [...] right eye and macular edema, unspecified whether halfway insulin use (HCC) Chronic obstructive pulmonary disease, [...] and were consensually agreed upon. Care Teams Solvent Plant Treater Relationship Specialty Start Date End Date Igor Mcconnell DO [address] [facility] [place] [address] PCP - General Internal Medicine 02/12/24 documented as of this encounter
--- OUTSIDE RECORDS SUMMARY | 2024-08-26 02:31 | External Medical Summary | Summary of Care ---
Author Name Unknown Organization [facility] Address [address] [facility] [place] [address] Phone [phone] Care Team Providers Care Field Manager Name Role Phone Igor Mcconnell DO Primary Care Provider [phone] Reason for Visit * Reason Onset Date Comments [facility]: Maintenance 05/27/2024 Encounter Details Date Type Department Care Team (Late st Contact Info) Description 05/27/2024 10:00 AM EST Scheduled Telephone [facility], [facility] [address] [place] [address] Coordinator, [facility] [address] [place] [address] Allergies Active Allergy Reactions Criticality Noted Date Comments Metolazone Renal complications 11/10/2023 Note prior DTP with metolazone resulted in acute renal failure Other Allergy (See Comments) Rash Low 10/13/2022 1+ cocamidopropyl betaine Sglt2 Inhibitors Other (Please comment) High 09/04/2020 Genital infection Sulfa Antibiotics Rash 10/15/2016 documented as of this encounter (statuses as of 05/27/2024) Medications Aspirin 81 MG Tablet Take 1 [...] Uncontrolled type 2 diabetes mellitus with hyperglycemia ([facility]) USE TO TEST BLOOD GLUCOSE 3 TIMES [...] current use of insulin ([facility]) Inject 2 mg under the skin [...] hemoglobin A1c goal of less than 7.0% ([facility]) INJECT UNDER THE SKIN 20 UNITS AT BREAKFAST, 26 UNITS AT LUNCH, 38 UNITS WITH DINNER PLUS CORRECTION PER [facility] OR DIRECTED UP TO 120 UNITS PER DAY 120 mL 3 4 7:52 AM EDT 03/21/20 24 Active DIURETIC TITRATION PLAN If no improvement on day 3, contact [facility] for possible home visit 1 Each 03/24/20 24 Active Evolocumab 140 MG/ML Subcutaneous Solution Auto-injector (Repatha SureClick)Indicati ons:Dyslipidemia, goal LDL below 100,Mixed dyslipidemia Inject 140 mg under the skin every 14 days. 6 mL 3 03/24/20 24 Active Unifine Pentips 31G X 8 MM (Insulin Pen Needle)Indications :Type 2 diabetes mellitus with hemoglobin A1c goal of less than 7.0% ([facility]) USE TO INJECT INSULINS 5 TIMES DAILY 500 Each 3 4 7:46 AM EDT 04/18/20 24 Active Dagti-9-jrsl Ethyl Esters 1 GM Oral Capsule (Lovaza) [...] as of this encounter (statuses as of 05/27/2024) Active Problems Patient Care Coordination No te [...] as of this encounter (statuses as of 05/27/2024) Resolved Problems Problem Noted Date Diagnosed Date [...] as of this encounter (statuses as of 05/27/2024) Immunizations Name Administration Dates Next Due COVID-19 mRNA, LNP-s, No Pre serve, 2-Dose Series (Moderna) 12/10/2020,11/12/2020 Hepatitis B, 20+ yrs 01/04/2018,08/03/2017,07/03 Pneumococcal Conjugate Vacci ne, 20-valent (Nearkyb07) 06/09/2022 Pneumococcal Polysaccharide PPV23 (Pneumovax) 03/06/2020 RSV [...] Telephone Encounter - Christy Choudhury LPN - 05/27/2024 8:57 AM EST Images from the original note were not included. [facility] Telephonic Nurse Follow-Up Call [facility] Subprogram: Focused Care Management (3-9 months) Follow Up Call Type: 24 hour follow up Acute issue requiring follow-up call: Other: [facility] weight Objective: 05/24/2024 9:44 AM 05/02/2024 3:00 PM 03/29/2024 2:16 PM 03/16/2024 2:50 PM 03/11/2024 8:19 AM VITALS ACROSS ENCOUNTERS BP 124/58 122/58 132/58 124/60 122/68 Pulse 72 70 72 72 62 Weight 124.2 kg 130.6 kg BMI 37.15 kg/m2 39.06 kg/m2 Remote Patient Monitoring: [facility] Scale: daily weights Oxygen Needs: NO supplemental oxygen needs identified DME Needs: NO DME needs identified Medications: Dose adjustment(s) made: took metolazone yesterday Subjective: Condition Status: Symptoms resolved and back to baseline Current Concerns: Spoke to patient denies any increased SOB or edema will call with any issues Disposition: Issue resolved. All appropriate follow up scheduled. Future Visits Scheduled: Future Appointments-next 60 days Date/Time Provider Specialty Dept Phone 05/27/2024 10:00 AM CoordinatorMorales [facility] [phone] 05/30/2024 1:00 PM Gael Zuniga Cardiology [facility] Arrive at: Patient's Home [phone] 05/30/2024 2:20 PM (Arrive by 2:05 PM) Shivani Magallon MD Nephrology [phone] 05/31/2024 3:30 PM Mery Calderon RDN [facility] [phone] 06/28/2024 2:30 PM Love Stevens RN [facility] [phone] 07/01/2024 2:20 PM (Arrive by 2:05 PM) Igor Mcconnell DO Family Medicine [phone] 08/08/2024 9:30 AM [place] Nurse [facility] Ancillary [phone] 10/27/2024 1:00 PM (Arrive by 12:45 PM) Lindsey Sheikh CRNP Sleep Disorders [phone] Christy Choudhury LPN documented in this encounter Plan of Treatment Upcoming Encounters Date Type Department Care Team (Late st Contact Info) Description 05/30/2024 1:00 PM EST Telemedicine Cardiology [facility] [place] [address] [facility], [place] [address] [place], Pharmacist Cardiology [facility] [address] [place] [address] 05/30/2024 2:20 PM EST Office Visit Nephrology [address] [place] [address] Shivani Magallon MD 200 [place] [address] 05/31/2024 3:30 PM EST Scheduled Telephone [facility], [facility] [address] [facility] [place] [address] Mery Calderon RDN [address] [facility] [place] [address] 06/13/2024 11:15 AM EST Hospital Encounter ENDO OSSC, Endoscopy Room [facility] [address] [place] [phone] José Miguel Sifuentes MD [address] [place] [address] 06/13/2024 11:15 AM EST - 06/13/2024 11:45 AM EST Surgery ENDO OSSC, Endoscopy Room [facility] [address] [place] [phone] José Miguel Sifuentes MD [address] [place] [address] COLONOSCOPY FLEXIBLE PROXIMAL DIAGNOSTIC 06/28/2024 2:30 PM EST Home Visit [facility], [facility] [address] [place] [address] Love Stevens RN [address] [place] [address] 07/01/2024 2:20 PM EST Office Visit Family Practice [address] [place] [address], [place] 293 [place] [address] Igor Mcconnell DO 293 [place] [address] 08/08/2024 9:30 AM EST Nurse Only Ancillary Lazaro Hyde[address] [place] [address] [place], Nurse [address] [place] [address] 10/27/2024 1:00 PM EDT Office Visit Sleep Disorders Ctr [facility] [address] [place] [phone] Lindsey Sheikh CRNP 132 [facility] [place] [address] Scheduled Procedures Name Priority Associated Diagnoses Date/Ti [...] Nephrology Referral 03/03/2025 03/03/2024 Hgb 05/13/2025 05/13/2024, 0912/2023, 02/24/2024, Additional history [...] this encounter Medical Devices Implanted Type Area Infrastructure Consultant Device Identifier Shelf Expiration Date Model / Serial / Lot Lens Intraoc 21.0 - [id number] - [id number] Implanted:Qty: 1 on 01/22/2017 by Cheko Mcnamara MD at OR [facility] Right: Eye [employer]OMB 08/05/2021 [id number] / [id number] / [id number] Lens Intraoc 21.5 - [id number] - [id number] Implanted:Qty: 1 on 02/03/2017 by Cheko Mcnamara MD at OR [facility] Left: Eye BAUSCH [employer] LOMB 09/02/2021 [id number] / [id number] / [id number] documented as of this encounter Advance Directives [...] were consensually agreed upon. Care Teams Field Manager Relationship Specialty Start Date End Date Igor Mcconnell DO [address] [place] [address] PCP - General Internal Medicine 02/12/24 documented as of this encounter
--- OUTSIDE RECORDS SUMMARY | 2024-08-26 02:32 | External Medical Summary | Summary of Care ---
Author Name Unknown Organization [facility] Address [address] [place] [address] Phone [phone] Care Team Providers Care Groundskeeper Porter Name Role Phone Igor Mcconnell DO Primary Care Provider [phone] Encounter Details Date Type Department Care Team (Late st Contact Info) Description 05/24/2024 Orders Only Family Practice [address] [facility] 293 [place] [address] Igor Mcconnell DO 293 [place] [address] Allergies Active Allergy Reactions Criticality Noted Date Comments Metolazone Renal complications 11/10/2023 Note prior DTP with metolazone resulted in acute renal failure Other Allergy (See Comments) Rash Low 10/13/2022 1+ cocamidopropyl betaine Sglt2 Inhibitors Other (Please comment) High 09/04/2020 Genital infection Sulfa Antibiotics Rash 10/15/2016 documented as of this encounter (statuses as of 05/24/2024) Medications Aspirin 81 MG Tablet Take 1 [...] type 2 diabetes mellitus with hyperglycemia ([facility]) USE TO TEST BLOOD GLUCOSE 3 [...] with long-term current use of insulin ([facility]) Inject 2 mg under the skin [...] less than 7.0% ([facility]) INJECT UNDER THE SKIN 20 UNITS AT BREAKFAST, 26 UNITS AT LUNCH, 38 UNITS WITH DINNER PLUS CORRECTION PER [facility] OR DIRECTED UP TO 120 UNITS PER DAY 120 mL 3 4 7:52 AM EDT 03/21/20 24 Active DIURETIC TITRATION PLAN If no improvement on day 3, contact [facility] for possible home visit 1 Each [...] 4 7:46 AM EDT 04/18/20 24 Active Uiaxm-2-dmig Ethyl Esters 1 GM Oral Capsule (Lovaza) [...] as of this encounter (statuses as of 05/24/2024) Active Problems Patient Care Coordination No te [...] in the Comments) Remote Patient Monitoring Vendor: [employer] Device(s): Connected Scale Self - Management Plan [...] as of this encounter (statuses as of 05/24/2024) Resolved Problems Problem Noted Date Diagnosed Date [...] as of this encounter (statuses as of 05/24/2024) Immunizations Name Administration Dates Next Due COVID-19 mRNA, LNP-s, No Pre serve, 2-Dose Series (Moderna) 12/10/2020,11/12/2020 Hepatitis B, 20+ yrs 01/04/2018,08/03/2017,07/03 Pneumococcal Conjugate Vacci ne, 20-valent ([id number]) 06/09/2022 Pneumococcal Polysaccharide PPV23 (Pneumovax) 03/06/2020 RSV [...] Description 05/30/2024 1:00 PM EST Telemedicine Cardiology [facility] [place] [address] [facility] [place] [address] [facility], Pharmacist Cardiology [facility] [address] [facility] [place] [address] 05/30/2024 2:20 PM EST Office Visit Nephrology [address] [place] [address] Shivani Magallon MD 200 [facility] [place] [address] 05/31/2024 3:30 PM EST Scheduled Telephone [facility], [facility] [address] [facility] [place] [address] Mery Calderon Precious, RDN [address] [facility] [place] [address] 06/13/2024 11:15 AM EST Hospital Encounter ENDO OSSC, Endoscopy Room [facility] [address] [facility] [place] [phone] José Miguel Sifuentes MD 132 [facility] [place] [address] 06/13/2024 11:15 AM EST - 06/13/2024 11:45 AM EST Surgery ENDO OSSC, Endoscopy Room [facility] [address] [place] [phone] José Miguel Sifuentes MD [address] [place] [address] COLONOSCOPY FLEXIBLE PROXIMAL DIAGNOSTIC 06/28/2024 2:30 PM EST Home Visit [facility], [facility] [address] [place] [address] Love Stevens RN [address] [place] [address] 07/01/2024 2:20 PM EST Office Visit Family Practice 65 [facility] [place] 293 [facility] [place] [address] Igor Mcconnell DO 293 [place] [address] 08/08/2024 9:30 AM EST Nurse Only Ancillary [address] [place] [address] [place] Nurse Annual Wellness [address] [place] [address] [place] [address] 10/27/2024 1:00 PM EDT Office Visit Sleep Disorders Ctr [facility] [address] [place] [phone] Lindsey Sheikh, REGGIE [address] [place] [address] Scheduled Procedures Name Priority Associated Diagnoses Date/Ti [...] 0 09/02/2022, 08/16/2021, Additional history exists GFR 11/10/2024 05/13/2024, 1003/2024, 04/01/2024, Additional history exists Nephrology Referral 03/03/2025 03/03/2024 O2 ASSESSMENT COMPLETED IN PAST YEAR FOR COPD 05/02/2025 05/02/2024 Hgb 05/13/2025 05/13/2024, 09/0 12/2023, 02/24/2024, Additional history exists PTH 05/13/2025 05/13/2024, 083 07/2021, 09/12/2020 Phosphate 05/13/2025 05/13/2024, 10/05, 10/23/2023, Additional history exists Albumin/Creatinine Ratio 05/18/20252 024, 05/13/2024, 06/11/2023, Additional history exists Diabetic Eye Exam 05/24/2025 05/19/2024, , 04/11/2024, Additional history exists Arreola's Esophagus Surveilance 06/16/2025 [...] this encounter Medical Devices Implanted Type Area Steam Power Plant Operator Device Identifier Shelf Expiration Date Model / Serial / Lot Lens Intraoc 21.0 - [id number] - [id number] Implanted:Qty: 1 on 01/22/2017 by Cheko Mcnamara MD at OR [facility] Right: Eye BAUSCH [employer] LOMB 08/05/2021 [id number] / [id number] / [id number] Lens Intraoc 21.5 - [id number] - [id number] Implanted:Qty: 1 on 02/03/2017 by Cheko Mcnamara MD at OR [facility] Left: Eye BAUSCH & LOMB 09/02/2021 [id number] / [id number] / [id number] documented as of this encounter Procedures Procedure Name Priority Date/Time Associated Diagnosis Comments DIABETIC EYE EXAM Routine 05/19/2024 documented in this encounter Results * DIABETIC EYE EXAM (05/19/2024) 05/19/2024 us History Per Patient OTHER Final Result OUTSIDE LAB (SEE SCANNED REPORT) documented in this encounter Advance Directives * [...] and were consensually agreed upon. Care Teams Groundskeeper Porter Relationship Specialty Start Date End Date Igor Mcconnell DO [address] [facility] [place] [address] PCP - General Internal Medicine 02/12/24 documented as of this encounter
--- OUTSIDE RECORDS SUMMARY | 2024-08-26 02:32 | External Medical Summary | Summary of Care ---
Author Name Unknown Organization [facility] Address [address] [facility] [place] [address] Phone [phone] Care Team Providers Care Marketing Support Assistant Name Role Phone Igor Mcconnell DO Primary Care Provider [phone] Reason for Visit * Reason Onset Date Comments [facility]: Maintenance 05/26/2024 Encounter Details Date Type Department Care Team (Late st Contact Info) Description 05/26/2024 Telephone [facility], [employer] [facility] [address] [place], [place] [address] [address] Christy Choudhury, SOFTWARE TESTER [address] [facility] [place] [address] [facility]: Maintenance Allergies Active Allergy Reactions Criticality Noted Date Comments Metolazone Renal complications 11/10/2023 Note prior DTP with metolazone resulted in acute renal failure Other Allergy (See Comments) Rash Low 10/13/2022 1+ cocamidopropyl betaine Sglt2 Inhibitors Other (Please comment) High 09/04/2020 Genital infection Sulfa Antibiotics Rash 10/15/2016 documented as of this encounter (statuses as of 05/26/2024) Medications Aspirin 81 MG Tablet Take 1 [...] type 2 diabetes mellitus with hyperglycemia ([facility]) USE TO TEST BLOOD GLUCOSE 3 [...] with long-term current use of insulin ([facility]) Inject 2 mg under the skin [...] A1c goal of less than 7.0% ([facility]) INJECT UNDER THE SKIN 20 UNITS AT BREAKFAST, 26 UNITS AT LUNCH, 38 UNITS WITH DINNER PLUS CORRECTION PER [facility] OR DIRECTED UP TO [...] 4 7:46 AM EDT 04/18/20 24 Active Jhdip-3-yhpb Ethyl Esters 1 GM Oral Capsule (Lovaza) [...] EST 05/17/20 24 025 Active Potassium Chloride Gvaiota ER 20 MEQ Oral Tablet Extended Release Take 2 tablets by mouth in morning 1 tablet at noon and 2 tablets at bedtime 450 Tablet 3 4 11:14 AM EST 05/23/20 24 Active documented as of this encounter (statuses as of 05/26/2024) Active Problems Patient Care Coordination No te Formatting of this note migh t be different from the original. Heart Failure Self-Management and Exacerbation Plan "RED FLAG" HF Symptoms: Leg Swelling Abdominal Bloating Increased dyspnea on exertion Increased shortness of breath at rest Orthopnea Remote Patient Monitoring Vendor: [facility] Device(s): Connected Scale Self - Management Plan [...] in the Comments) Remote Patient Monitoring Vendor: [facility] Device(s): Connected Scale Self - Management Plan [...] as of this encounter (statuses as of 05/26/2024) Resolved Problems Problem Noted Date Diagnosed Date [...] has been better controlled recently. Monitor using [employer]ummZummstyle Cindy. Assessment & Plan (12/19/2022 11:13 AM [...] as of this encounter (statuses as of 05/26/2024) Immunizations Name Administration Dates Next Due COVID-19 mRNA, LNP-s, No Pre serve, 2-Dose Series (Moderna) 12/10/2020,11/12/2020 Hepatitis B, 20+ yrs 01/04/2018,08/03/2017,07/03 Pneumococcal Conjugate Vacci ne, 20-valent (Fionrfp25) 06/09/2022 Pneumococcal Polysaccharide PPV23 (Pneumovax) 03/06/2020 RSV [...] Telephone Encounter - Christy Choudhury LPN - 05/26/2024 12:37 PM EST Noted Call to patient to make aware Follow up call tomorrow * Telephone Encounter - Chilango Trujillo MD - 05/26/2024 12:28 PM EST Recommendations: Have patient get back on to typical diuretic regimen and contiue to weight is no improvement over the next few days would consider DTP vs home visit for IV diuretics. No orders of the defined types were placed in this encounter. E * Telephone Encounter - Christy Choudhury LPN - 05/26/2024 11:33 AM EST Images from the original note were not included. [facility] Remote Patient Monitoring Able to contact patient: Trigger type: Abnormal reading(s): [facility] ([facility]): Scale: Baseline weight: 268 to 271 lbs Trigger weight: 278.1 lbs; weight increased 4.4 lbs in 1 day(s) Trigger priority per [facility]: moderate Patient takes diuretic medication: Yes, reviewed current diuretic use: Name of medication: Torsemide Dose: 80mg Frequency: BID Symptom review: Abdomen bloating Diet Reviewed: Yes. Patient has had any foods high in sodium: Yes, describe: he ate out for anniversary and had some foods with salt he states Fluid Intake Reviewed: Yes. Patient is on a fluid restriction: Yes, restriction amount in milliliters or liters: 64oz Adherent to restriction: Yes Self-Management Plan Reviewed: Red Flags: Increased BLE edema SOB weight gain DTP (Diuretic Titration Protocol): Describe DTP: Name of medication(s): Metolazone Dose: 2.5mg Used in past 2 weeks: Yes, today he took metolazone this am Risk assignment recommendation: Moderate risk findings (check [...] WITH symptoms Additional risk selection justification: Spoke to patient states has Abdomen bloating denies LE edema has some SOB denies chest pain his Last BM today ate out last night and had some food with salt, will watch his salt/ sodium intake states he did not take his evening pills took pills out for the wrong day he did take Metolazone 2.5 mg this am will route for any other recommendations follow up call tomorrow Overall risk and identified plan: Moderate risk: Next day follow up call scheduled Route to RNCM (Registered Nurse Sales Support Advisor) and Advance Practitioner Route to RMC (Remote Medical Coordinator) documented in this encounter Plan of Treatment Upcoming Encounters Date Type Department Care Team (Late st Contact Info) Description 05/27/2024 10:00 AM EST Scheduled Telephone [facility] at [facility] [address] [place] [address] Coordinator, [facility] 132 [place] [address] 05/30/2024 1:00 PM EST Telemedicine Cardiology [facility] [place] [address] [place] [address] [place] [address], Pharmacist Cardiology [facility] [address] [place] [address] 05/30/2024 2:20 PM EST Office Visit Nephrology [address] [place] [address] Shivani Magallon MD 200 [facility] [place] [address] 05/31/2024 3:30 PM EST Scheduled Telephone [facility], [facility] [address] [facility] [place] [address] Mery Calderon, RDN [address] [facility] [place] [address] 06/13/2024 11:15 AM EST Hospital Encounter ENDO OSSC, Endoscopy Room [facility] [address] [place] [phone] José Miguel [facility]uentes MD [facility] [place] [address] 06/13/2024 11:15 AM EST - 06/13/2024 11:45 AM EST Surgery ENDO OSS, Endoscopy Room [facility] [address] [place] [phone] José Miguel Sifuentes MD [address] [place] [address] COLONOSCOPY FLEXIBLE PROXIMAL DIAGNOSTIC 06/28/2024 2:30 PM EST Home Visit [facility], [facility] [address] [place] [address] Love Stevens RN [address] [place] [address] 07/01/2024 2:20 PM EST Office Visit Family Practice [address] [place] [address], [place] 293 [place] [address] Igor Mcconnell, 293 [place] [address] 08/08/2024 9:30 AM EST Nurse Only Ancillary Lazaro Hyde[address] [place] [address] [place], Nurse [address] [place] [address] 10/27/2024 1:00 PM EDT Office Visit Sleep Disorders Ctr Maximiliano Vega [place] [facility] [place] [phone] Lindsey Sheikh CRNP [address] [place] [address] Scheduled Procedures Name Priority Associated Diagnoses Date/Ti [...] 08/16/2021, Additional history exists GFR 11/10/2024 05/13/2024, 03/2024, 04/01/2024, Additional history exists Nephrology Referral 03/03/2025 [...] this encounter Medical Devices Implanted Type Area Potato Loader Device Identifier Shelf Expiration Date Model / Serial / Lot Lens Intraoc 21.0 - [id number] - [id number] Implanted:Qty: 1 on 01/22/2017 by Cheko Mcnamara MD at OR [facility] Right: Eye [employer]OMB 08/05/2021 [id number] / [id number] / [id number] Lens Intraoc 21.5 - [id number] - [id number] Implanted:Qty: 1 on 02/03/2017 by Cheko Mcnamara MD at OR [facility] Left: Eye BAUSCH [employer] LOMB 09/02/2021 [id number] / [id number] / [id number] documented as of this encounter Advance Directives [...] were consensually agreed upon. Care Teams Marketing Support Assistant Relationship Specialty Start Date End Date Igor Mcconnell DO 293 [place] [address] PCP - General Internal Medicine 02/12/24 documented as of this encounter
--- OUTSIDE RECORDS SUMMARY | 2024-08-26 02:32 | External Medical Summary | Summary of Care ---
Author Name Unknown Organization [facility] Address [address] [facility] [place] [address] Phone [phone] Care Team Providers Care Manpower Development Advisor Name Role Phone Igor Mcconnell DO Primary Care Provider [phone] Encounter Details Date Type Department Care Team (Late st Contact Info) Description 05/24/2024 8:30 AM EST [facility] [address] [place] [address] Love Stevens, ANNE MARIE [address] [place] [address] Allergies Active Allergy Reactions Criticality Noted Date Comments Metolazone Renal complications 11/10/2023 Note prior DTP with metolazone resulted in acute renal failure Other Allergy (See Comments) Rash Low 10/13/2022 1+ cocamidopropyl betaine Sglt2 Inhibitors Other (Please comment) High 09/04/2020 Genital infection Sulfa Antibiotics Rash 10/15/2016 documented as of this encounter (statuses as of 05/25/2024) Medications Aspirin 81 MG Tablet Take 1 [...] Uncontrolled type 2 diabetes mellitus with hyperglycemia ([facility]) USE TO TEST BLOOD GLUCOSE [...] disease, with long-term current use of insulin ([facility]) Inject 2 mg under [...] of less than 7.0% ([facility]) INJECT UNDER THE SKIN 20 UNITS AT BREAKFAST, 26 UNITS AT LUNCH, 38 UNITS WITH DINNER PLUS CORRECTION PER [facility] OR DIRECTED UP TO 120 [...] 4 7:46 AM EDT 04/18/20 24 Active Zyknj-4-scxa Ethyl Esters 1 GM Oral Capsule (Lovaza) [...] as of this encounter (statuses as of 05/25/2024) Active Problems Patient Care Coordination No te [...] as of this encounter (statuses as of 05/25/2024) Resolved Problems Problem Noted Date Diagnosed Date [...] as of this encounter (statuses as of 05/25/2024) Immunizations Name Administration Dates Next Due COVID-19 mRNA, LNP-s, No Pre serve, 2-Dose Series (Moderna) 12/10/2020,11/12/2020 Hepatitis B, 20+ yrs 01/04/2018,08/03/2017,07/03 Pneumococcal Conjugate Vacci ne, 20-valent ([id number]) 06/09/2022 Pneumococcal Polysaccharide PPV23 (Pneumovax) 03/06/2020 RSV [...] No 05/02/2024 Does the household have a [facility] source of income? (Household - for [...] Reading Time Taken Comments Blood Pressure 124/58 05/24/2024 9:44 AM EST Pulse 72 05/24/2024 9:44 AM EST Temperature 36.9 C (98.4 F) 05/24/2024 9:44 AM ES T Respiratory Rate 18 05/24/2024 9:44 AM EST Oxygen Saturation 93% 05/24/2024 9:44 AM EST Inhaled Oxygen Concentration - - Weight - - Height - - Body Mass Index - - documented in this encounter Progress Notes * Love Stevens RN - 05/24/2024 9:31 AM EST Images from the original note were not included. Current Concerns: Patient seen for follow up- CKD4, CHF, COPD, [place], DM2 Weight trigger today. Reports appetite isn't very good. Watches his sodium. Took Metolazone this am- weight trigger Blood sugar- average 295- followed by MTM VS wnl Lungs clear bilaterally Sob with exertion No LE edema Voiding without difficulty Bowels wnl Appetite good Taking fluids well. In process of transitioning patient to CH scale versus [facility]C scale. Physical Exam: Physical Exam Constitutional: Appearance: Normal [...] Systems: Review of Systems Constitutional: Negative. Respiratory: Negative. Cardiovascular: Negative. Gastrointestinal: Negative. Genitourinary: Negative. Musculoskeletal: Positive for gait problem. Skin: Negative. Hematological: Negative. Psychiatric/Behavioral: Negative. Care Plan Goal Progress: GS - Patient/caregiver will verbalize proper technique in daily weight monitoring with heart failure. (Progressing) Start: 03/16/24 Expected End: 05/16/24 GS - Patient/caregiver will verbalize importance of fluid restriction compliance in the management of heart failure (Progressing) Start: 03/16/24 Expected End: 07/23/24 GS [...] protocol (Progressing) Start: 03/16/24 Expected End: 07/23/24 Orders Placed: No orders of the defined types were placed in this encounter. Medications Given: Care Gaps: Care Gaps Care gaps closed this contact:: Education (05/24/24 1010) Type of education: Clinical/disease (05/24/24 1010) documented in this encounter Plan of Treatment Upcoming Encounters Date Type Department Care Team (Late st Contact Info) Description 05/30/2024 1:00 PM EST Telemedicine Cardiology [facility], [place] [address] [place] [address] [place] [address], Pharmacist Cardiology [place] [address] [place] [address] 05/30/2024 2:20 PM EST Office Visit Nephrology [address] [place] [address] Shivani Magallon MD [address] [place] [address] [place] [address] 05/31/2024 3:30 PM EST Scheduled Telephone [facility], [facility] [address] [facility] [place] [address] Mery Calderon, RDN [address] [place] [address] 06/13/2024 11:15 AM EST Hospital Encounter ENDO [facility], Endoscopy Room [facility] [address] [place] [phone] José Miguel Sifuentes MD [address] [place] [address] 06/13/2024 11:15 AM EST - 06/13/2024 11:45 AM EST Surgery ENDO [facility], Endoscopy Room [facility] [address] [place] [phone] José Miguel Sifuentes MD [address] [place] [address] COLONOSCOPY FLEXIBLE PROXIMAL DIAGNOSTIC 06/28/2024 2:30 PM EST [facility] [address] [place] [address] Love Stevens, ANNE MARIE 132 [facility] [place] [address] 07/01/2024 2:20 PM EST Office Visit Family Practice [address] [place] [address] [address] [place] [address] Igor Mcconnell DO 293 [place] [address] 08/08/2024 9:30 AM EST Nurse Only Ancillary [address] [place] [address] [place], Nurse [address] [place] [address] 10/27/2024 1:00 PM EDT Office Visit Sleep Disorders Ctr [facility] [address] [place] [phone] Lindsey Sheikh CRNP 132 [facility] [place] [address] Scheduled Procedures Name Priority Associated Diagnoses Date/Ti [...] 08/16/2021, Additional history exists GFR 11/10/2024 05/13/2024, 100 03/2024, 04/01/2024, Additional history exists Nephrology Referral 03/03/2025 03/03/2024 Hgb 05/13/2025 05/13/2024, 090 12/2023, 02/24/2024, Additional [...] this encounter Medical Devices Implanted Type Area Police District Switchboard Operator Device Identifier Shelf Expiration Date Model / Serial / Lot Lens Intraoc 21.0 - [id number] - [id number] Implanted:Qty: 1 on 01/22/2017 by Cheko Mcnamara MD at OR [facility] Right: Eye BAUSCH & LOMB 08/05/2021 [id number] / [id number] / [id number] Lens Intraoc 21.5 - [id number] - [id number] Implanted:Qty: 1 on 02/03/2017 by Cheko Mcnamara MD at OR [facility] Left: Eye BAUSCH & LOMB 09/02/2021 [id number] / [id number] / [id number] documented as of this encounter Advance Directives [...] and were consensually agreed upon. Care Teams Manpower Development Advisor Relationship Specialty Start Date End Date Igor Mcconnell DO 293 [facility] [place] [address] PCP - General Internal Medicine 02/12/24 documented as of this encounter
--- OUTSIDE RECORDS SUMMARY | 2024-08-26 02:32 | External Medical Summary | Summary of Care ---
Author Name Unknown Organization [facility] Address [address] [facility] [place] [address] Phone [phone] Care Team Providers Care Supervisor Bit And Shank Department Name Role Phone Igor Mcconnell DO Primary Care Provider [phone] Reason for Visit * Reason Comments Outpatient Testing Encounter Details Date Type Department Care Team (Late st Contact Info) Description 05/26/2024 10:20 AM EST Laboratory Laboratory [address] [place] [phone] [place] [address] HTN, goal below 130/80; Stage 3b chronic kidney disease (HCC) Allergies Active [...] insulin ([facility]) Inject 2 mg under the [...] [facility]) INJECT UNDER THE SKIN 20 UNITS AT BREAKFAST, 26 UNITS AT LUNCH, 38 UNITS WITH DINNER PLUS CORRECTION PER [facility] OR DIRECTED UP TO 120 UNITS PER DAY 120 mL 3 4 7:52 AM EDT 03/21/20 24 Active DIURETIC TITRATION PLAN If no improvement on day 3, contact Health system for possible home visit 1 Each 03/24/20 [...] 4 7:46 AM EDT 04/18/20 24 Active Nlcke-1-drmf Ethyl Esters 1 GM Oral Capsule (Lovaza) [...] at rest Orthopnea Remote Patient Monitoring Vendor: [facility] Device(s): Connected Scale Self - Management Plan [...] Remote Patient Monitoring Vendor: [facility] Device(s): Connected Scale Self - Management Plan [...] yrs 01/04/2018,08/03/2017,07/03 Pneumococcal Conjugate Vacci ne, 20-valent ([id number]) 06/09/2022 Pneumococcal Polysaccharide PPV23 (Pneumovax) 03/06/2020 RSV [...] Description 05/30/2024 1:00 PM EST Telemedicine Cardiology [facility], [place] [address] [place] [address] [facility], Pharmacist Cardiology [facility] [address] [place] [address] 05/30/2024 2:20 PM EST Office Visit Nephrology [address] [place] [address] Shivani Magallon MD 200 [facility] [place] [address] 05/31/2024 3:30 PM EST Scheduled Telephone [facility], [facility] [address] [facility] [place] [address] Mery Calderon RDN [address] [facility] [place] [address] 06/13/2024 11:15 AM EST Hospital Encounter ENDO [facility], Endoscopy Room [facility] [address] [place] [phone] José Miguel Sifuentes MD [address] [place] [address] 06/13/2024 11:15 AM EST - 06/13/2024 11:45 AM EST Surgery ENDO [facility], Endoscopy Room [facility] [address] [place] [phone] José Miguel Sifuentes MD [address] [place] [address] COLONOSCOPY FLEXIBLE PROXIMAL DIAGNOSTIC 06/28/2024 2:30 PM EST [facility] [address] [place] [address] Love Stevens, RN [address] [place] [address] 07/01/2024 2:20 PM EST Office Visit Family Practice [address] [place] [address] 293 [place] [address] Igor Mcconnell DO 293 [place] [address] 08/08/2024 9:30 AM EST Nurse Only Ancillary Lazaro Hyde [address] [place] [address] [place], Nurse [address] [place] [address] 10/27/2024 1:00 PM EDT Office Visit Sleep Disorders Ctr [facility] [address] [place] [phone] Lindsey Sheikh CRNP [address] [place] [address] Pending Results Name Type Priority Associated Diagnoses Date /Time BASIC METABOLIC PANEL Lab Routine HTN, goal below 130/80 Stage 3b chronic kidney disease (HCC) 05/26/2024 10:23 AM EST Scheduled Procedures Name Priority Associated [...] encounter Medical Devices Implanted Type Area Inspector Aligning Device Identifier Shelf Expiration Date Model / Serial / Lot Lens Intraoc 21.0 - [id number] - [id number] Implanted:Qty: 1 on 01/22/2017 by Cheko Mcnamara MD at [facility] Right: Eye BAUSCH [employer] LOMB 08/05/2021 [id number] / [id number] / [id number] Lens Intraoc 21.5 - [id number] - [id number] Implanted:Qty: 1 on 02/03/2017 by Cheko Mcnamara MD at [facility] Left: Eye BAUSCH & LOMB 09/02/2021 [id number] / [id number] / [id number] documented as of this encounter Visit Diagnoses [...] eye and macular edema, unspecified whether exterminator helper termite insulin use (HCC) Chronic obstructive pulmonary disease, unspecified COPD type (HCC) Sacroiliitis (HCC) Sacroiliitis, not elsewhere classified Other specified peripheral vascular diseases (HCC) Coronary artery calcification seen on CT scan Mixed dyslipidemia Mixed hyperlipidemia HTN, goal below 130/80 Unspecified essential hypertension Stage 3b chronic kidney disease (HCC) Special screening [...] were consensually agreed upon. Care Teams Supervisor Bit And Shank Department Relationship Specialty Start Date End Date Igor Mcconnell DO [address] [place] [address] PCP - General Internal Medicine 02/12/24 documented as of this encounter
--- OUTSIDE RECORDS SUMMARY | 2024-08-26 02:32 | External Medical Summary ---
Author Name Unknown Address Unknown Organization K01:[facility] [place] [facility] [address] [place] [address] Laboratory Report Ordering Provider Test Date Status ADRIA REN 05/26/2024 10:23:38 Final Observation Date Value Abnormality Reference (Units ) Status BUN 05/26/2024 10:23:38 56 Above high normal 6-20 (mg/dL) Final Creatinine 05/26/2024 10:23:38 2.1 Above high normal 0.6-1.2 (mg/dL) Final Glomerular filtration rate/1.73 sq M.predicted [Volume Rate/Area] in Serum, Plasma or Blood by Creatinine-based formula (CKD-EPI) 05/26/2024 10:23:38 34 Below low normal >=60 (mL/min) Final eGFR is calculated based on the CKD-EPI 2020 equation. Sodium 05/26/2024 10:23:38 137 135-146 (m mol/L) Final Potassium 05/26/2024 10:23:38 3.5 3.5-5.1 (m mol/L) Final Cl 05/26/2024 10:23:38 95 Below low normal 98- 107 (mmol/L) Final CO2 05/26/2024 10:23:38 26 22-32 (mmo l/L) Final Anion gap 05/26/2024 10:23:38 16 Above high normal 7- 15 (mmol/L) Final Glucose 05/26/2024 10:23:38 265 Above high normal 70 -120 (mg/dL) Final Calcium 05/26/2024 10:23:38 9.0 8.4-10.2 ( mg/dL) Final Performing Location [facility] [place] [facility] [place] [address]
--- OUTSIDE RECORDS SUMMARY | 2024-08-26 02:32 | External Medical Summary | Summary of Care ---
Author Name Unknown Organization [facility] Address [address] [facility] [place] [address] Phone [phone] Care Team Providers Care City Supervisor Name Role Phone Igor Mcconnell DO Primary Care Provider [phone] Reason for Visit * Reason Onset Date Comments [facility]: Maintenance 05/26/2024 Encounter Details Date Type Department Care Team (Late st Contact Info) Description 05/26/2024 Telephone [facility], [place] [facility] [address] [place], [place] [address] [address] Christy Choudhury, PRIZE JACKER [address] [facility] [place] [address] [facility]: Maintenance Allergies Active Allergy [...] Uncontrolled type 2 diabetes mellitus with hyperglycemia ([facility]) USE TO TEST BLOOD GLUCOSE 3 TIMES [...] disease, with long-term current use of insulin ([facility]) Inject 2 mg under the skin once [...] hemoglobin A1c goal of less than 7.0% ([facility]) INJECT UNDER THE SKIN 20 UNITS AT BREAKFAST, 26 UNITS AT LUNCH, 38 UNITS WITH DINNER PLUS CORRECTION PER [facility] OR DIRECTED UP TO 120 UNITS PER DAY 120 mL 3 4 7:52 AM EDT 03/21/20 24 Active DIURETIC TITRATION PLAN If no improvement on day 3, contact [facility] for possible home visit 1 [...] 4 7:46 AM EDT 04/18/20 24 Active Fndvs-4-qnbj Ethyl Esters 1 GM Oral Capsule (Lovaza) [...] at rest Orthopnea Remote Patient Monitoring Vendor: [facility] Device(s): Connected Scale Self - Management Plan [...] in the Comments) Remote Patient Monitoring Vendor: [facility] Device(s): Connected Scale Self - Management Plan [...] has been better controlled recently. Monitor using BeOnDeskstyle Cindy. Assessment & Plan (12/19/2022 11:13 AM [...] yrs 01/04/2018,08/03/2017,07/03 Pneumococcal Conjugate Vacci ne, 20-valent ([id number]) 06/09/2022 Pneumococcal Polysaccharide PPV23 (Pneumovax) 03/06/2020 RSV [...] [facility] ([facility]): Scale: Baseline weight: 268 to 271 lbs [...] call scheduled Route to RNCM (Registered Nurse Repairer Sash And Door) and Advance Practitioner Route to RMC (Remote Medical Coordinator) documented in this encounter Plan of Treatment Upcoming Encounters Date Type Department Care Team (Late st Contact Info) Description 05/27/2024 10:00 AM EST Scheduled Telephone [facility], [facility] 132 [facility] [place] [address] Coordinator, [facility] [address] [facility] [place] [address] 05/30/2024 1:00 PM EST Telemedicine Cardiology [facility], [place] [address] [place] [address] [place] [address], Pharmacist Cardiology [facility] [address] [place] [address] 05/30/2024 2:20 PM EST Office Visit Nephrology [address] [place] [address] Shivani Magallon MD [address] [place] [address] [place] [address] 05/31/2024 3:30 PM EST Scheduled Telephone [facility], [facility] [address] [facility] [address] Mery Calderon RDN [address] [facility] [place] [address] 06/13/2024 11:15 AM EST Hospital Encounter ENDO [facility], Endoscopy Room [facility] [address] [place] [address] José Miguel Sifuentes MD [address] [place] [address] 06/13/2024 11:15 AM EST - 06/13/2024 11:45 AM EST Surgery ENDO [facility], Endoscopy Room [facility] [address] [place] [phone] José Miguel Sifuentes MD [address] [place] [address] COLONOSCOPY FLEXIBLE PROXIMAL DIAGNOSTIC 06/28/2024 2:30 PM EST Home Visit [facility] [place] [address] Love Stevens RN 132 [facility] [place] [address] 07/01/2024 2:20 PM EST Office Visit Family Practice [address] [place] [address] 293 [place] [address] Igor Mcconnell DO 293 [place] [address] 08/08/2024 9:30 AM EST Nurse Only Ancillary [address] [place] [address] [place], Nurse [address] [place] [address] 10/27/2024 1:00 PM EDT Office Visit [facility] Disorders Ctr [facility] 132 [facility] [place] [phone] Lindsey Sheikh CRNP [facility] [place] [address] Scheduled Procedures Name Priority Associated Diagnoses Date/Ti [...] 08/16/2021, Additional history exists GFR 11/10/2024 05/13/2024, 10/0 03/2024, 04/01/2024, Additional history exists Nephrology Referral [...] this encounter Medical Devices Implanted Type Area Feather Shaper Device Identifier Shelf Expiration Date Model / Serial / Lot Lens Intraoc 21.0 - [id number] - [id number] Implanted:Qty: 1 on 01/22/2017 by Cheko Mcnamara MD at OR [facility] Right: Eye BAUSCH [employer] LOMB 08/05/2021 [id number] / [id number] / [id number] Lens Intraoc 21.5 - [id number] - [id number] Implanted:Qty: 1 on 02/03/2017 by Cheko Mcnamara MD at OR [facility] Left: Eye BAUSCH & LOMB 09/02/2021 [id number] / [id number] / [id number] documented as of this encounter Advance Directives [...] and were consensually agreed upon. Care Teams City Supervisor Relationship Specialty Start Date End Date Igor Mcconnell DO [address] [place] [address] PCP - General Internal Medicine 02/12/24 documented as of this encounter
--- OUTSIDE RECORDS SUMMARY | 2024-08-26 02:32 | External Medical Summary | Summary of Care ---
Author Name Unknown Organization [facility] Address [address] [facility] [place] [address] Phone [phone] Care Team Providers Care Wet Process Technician Name Role Phone Igor Mcconnell DO Primary Care Provider [phone] Reason for Visit * Reason Onset Date Comments [facility]: Maintenance 05/26/2024 Encounter Details Date Type Department Care Team (Late st Contact Info) Description 05/26/2024 Telephone [facility], [place] [facility] [address] [place], [place] [address] [address] Christy Choudhury, DIRECT MARKETING MANAGER [address] [facility] [place] [address] [facility]: Maintenance Allergies Active Allergy [...] Uncontrolled type 2 diabetes mellitus with hyperglycemia ([facility]) USE TO TEST BLOOD GLUCOSE 3 [...] disease, with long-term current use of insulin ([facility]) Inject 2 mg under the skin [...] A1c goal of less than 7.0% ([facility]) INJECT UNDER THE SKIN 20 UNITS AT BREAKFAST, 26 UNITS AT LUNCH, 38 UNITS WITH DINNER PLUS CORRECTION PER [facility] OR DIRECTED UP TO 120 UNITS PER DAY 120 mL 3 4 7:52 AM EDT 03/21/20 24 Active DIURETIC TITRATION PLAN If no improvement on day 3, contact [facility] for possible home visit 1 Each [...] 4 7:46 AM EDT 04/18/20 24 Active Nshxe-1-qmzl Ethyl Esters 1 GM Oral Capsule (Lovaza) [...] rest Orthopnea Remote Patient Monitoring Vendor: [facility] Device(s): Connected Scale [...] the Comments) Remote Patient Monitoring Vendor: [facility] [place] Device(s): Connected Scale [...] has been better controlled recently. Monitor using YumZingstyle Cindy. Assessment & Plan (12/19/2022 11:13 AM [...] yrs 01/04/2018,08/03/2017,07/03 Pneumococcal Conjugate Vacci ne, 20-valent ([id number]) 06/09/2022 Pneumococcal Polysaccharide PPV23 (Pneumovax) 03/06/2020 RSV [...] encounter. E * Telephone Encounter - Christy ChoudhuryROSCOE - 05/26/2024 11:33 AM EST Images from [...] call scheduled Route to RNCM (Registered Nurse Clinical Immunologist) and Advance Practitioner Route to RMC (Remote Medical Coordinator) documented in this encounter Plan of Treatment Upcoming Encounters Date Type Department Care Team (Late st Contact Info) Description 05/27/2024 10:00 AM EST Scheduled Telephone [facility] [address] [facility] [place] [address] Coordinator, [facility] [address] [facility] [place] [address] 05/30/2024 1:00 PM EST Telemedicine Cardiology [facility] [place] [address] [place] [address] [place] [address], Pharmacist Cardiology [place] [address] [place] [address] 05/30/2024 2:20 PM EST Office Visit Nephrology [address] [place] [phone] Shivani Magallon MD 200 [facility] [place], [place] [id number] 05/31/2024 3:30 PM EST Scheduled Telephone [facility], [facility] [address] [facility] [place] [address] Mery Calderon, RDN [address] [facility] [place] [address] 06/13/2024 11:15 AM EST Hospital Encounter ENDO OSSC, [facility] [place] [address] José Miguel Sifuentes MD [address] [place] [address] 06/13/2024 11:15 AM EST - 06/13/2024 11:45 AM EST Surgery ENDO OSS, Endoscopy Room [facility] [place] [phone] José Miguel Sifuentes MD [address] [place] [address] COLONOSCOPY FLEXIBLE PROXIMAL DIAGNOSTIC 06/28/2024 2:30 PM EST Home Visit [facility], [facility] [address] [facility] [place] [address] Love Stevens RN [address] [place] [address] 07/01/2024 2:20 PM EST Office Visit Family Practice [address] [facility] [place] 293 [place] [address] Igor Mcconnell, 293 [facility] [place] [address] 08/08/2024 9:30 AM EST Nurse Only Ancillary [address] [place] [address] [place], Nurse [address] [place] [address] 10/27/2024 1:00 PM EDT Office Visit Sleep Disorders Ctr [facility] [address] [place] [address] Lindsey Sheikh CRNP [address] [place] [address] Scheduled Procedures Name Priority Associated Diagnoses Date/Ti [...] this encounter Medical Devices Implanted Type Area Seed District Sales Manager Device Identifier Shelf Expiration Date Model / Serial / Lot Lens Intraoc 21.0 - [id number] - [id number] Implanted:Qty: 1 on 01/22/2017 by Cheko Mcnamara MD at OR [facility] Right: Eye BAUSCH & LOMB 08/05/2021 [id number] / [id number] Lens Intraoc 21.5 - [id number] - [id number] Implanted:Qty: 1 on 02/03/2017 by Cheko Mcnamara MD at OR [facility] Left: Eye BAUSCH & LOMB 09/02/2021 [id number] / [id number] / [id number] documented as of this encounter Advance Directives [...] and were consensually agreed upon. Care Teams Wet Process Technician Relationship Specialty Start Date End Date Igor Mcconnell DO 293 [place] [address] PCP - General Internal Medicine 02/12/24 documented as of this encounter
--- OUTSIDE RECORDS SUMMARY | 2024-08-26 02:33 | External Medical Summary | Summary of Care ---
Author Name Unknown Organization [facility] Address [address] [facility] [place] [address] Phone [phone] Care Team Providers Care Private Mortgage Banker Safe Name Role Phone EnedinaIgor DO Primary Care Provider [phone] Encounter Details Date Type Department Care Team (Late st Contact Info) Description 05/12/2024 Population Health External Data Unspecified Department Allergies Active Allergy Reactions Criticality Noted Date Comments Metolazone Renal complications 11/10/2023 Note prior DTP with metolazone resulted in acute renal failure Other Allergy (See Comments) Rash Low 10/13/2022 1+ cocamidopropyl betaine Sglt2 Inhibitors Other (Please comment) High 09/04/2020 Genital infection Sulfa Antibiotics Rash 10/15/2016 documented as of this encounter (statuses as of 05/19/2024) Medications Aspirin 81 MG Tablet Take 1 [...] of less than 7.0% ([facility]) Use as directed every 14 [...] of less than 7.0% ([facility]) INJECT UNDER THE SKIN 100 [...] disease, with long-term current use of insulin ([facility]) Inject 2 mg under [...] of less than 7.0% ([facility]) INJECT UNDER THE SKIN 20 UNITS AT BREAKFAST, 26 UNITS AT LUNCH, 38 UNITS WITH DINNER PLUS CORRECTION PER [facility] OR DIRECTED UP TO 120 UNITS PER DAY 120 mL 3 4 7:52 AM EDT 03/21/20 Active DIURETIC TITRATION PLAN If no improvement on day 3, contact [facility] for possible home visit 1 Each 03/24/20 Active Evolocumab 140 MG/ML Subcutaneous Solution Auto-injector (Repatha SureClick)Indicati ons:Dyslipidemia, goal LDL below 100,Mixed dyslipidemia Inject 140 mg under the skin every 14 days. 6 mL 3 03/24/20 24 Active Potassium Chloride Gaviota ER 20 MEQ Oral Tablet Extended Release Take 1 Tablet by mouth in the morning and 1 Tablet at noon and 1 Tablet before bedtime. 180 Tablet 3 4 4:59 PM EDT 04/14/20 24 Active Unifine Pentips 31G X 8 MM (Insulin Pen Needle)Indications :Type 2 diabetes mellitus with hemoglobin A1c goal of less than 7.0% (HCC) USE TO INJECT INSULINS 5 TIMES DAILY 500 Each 3 4 7:46 AM EDT 04/18/20 24 Active Zqdhd-9-euwv Ethyl Esters 1 GM Oral Capsule (Lovaza) [...] 7:11 AM EDT 05/02/20 24 025 Active documented as of this encounter (statuses as of 05/19/2024) Active Problems Patient Care Coordination No te [...] in the Comments) Remote Patient Monitoring Vendor: [employer] Device(s): Connected Scale Self - Management Plan [...] as of this encounter (statuses as of 05/19/2024) Resolved Problems Problem Noted Date Diagnosed Date [...] as of this encounter (statuses as of 05/19/2024) Immunizations Name Administration Dates Next Due COVID-19 mRNA, LNP-s, No Pre serve, 2-Dose Series (Moderna) 12/10/2020,11/12/2020 Hepatitis B, 20+ yrs 01/04/2018,08/03/2017,07/03 Pneumococcal Conjugate Vacci ne, 20-valent ([id number]) 06/09/2022 Pneumococcal Polysaccharide PPV23 (Pneumovax) 03/06/2020 RSV [...] Description 05/24/2024 8:30 AM EST Home Visit [facility] 132 [facility] [place] [address] Love Stevens, RN 132 [facility] [place] [address] 05/30/2024 1:00 PM EST Telemedicine Cardiology [facility] [address] [place] [address] [place], Pharmacist Cardiology [facility] [address] [place] [address] 05/30/2024 2:20 PM EST Office Visit Nephrology [address] [place] [phone] Shivani Magallon MD 200 [place] [address] 05/31/2024 3:30 PM EST Scheduled Telephone [facility], [facility] [address] [facility] [place] [address] Mery Calderon, VIVIANAN [address] [facility] [place] [address] 06/13/2024 11:15 AM EST Hospital Encounter ENDO OSSC, Endoscopy Room [facility] [address] [facility] [place] [phone] José Miguel Sifuentes MD [address] [place] [address] 06/13/2024 11:15 AM EST - 06/13/2024 11:45 AM EST Surgery ENDO OSSC, Endoscopy Room [facility] [place] [phone] José Miguel Sifuentes MD [address] [place] [address] COLONOSCOPY FLEXIBLE PROXIMAL DIAGNOSTIC 07/01/2024 2:20 PM EST Office Visit Family Practice [address] [place] [address] 293 [facility] [place] [address] Igor Mcconnell, 293 [place] [address] 08/08/2024 9:30 AM EST Nurse Only Ancillary [address] [place] [address] [place], Nurse [address] [place] [address] 10/27/2024 1:00 PM EDT Office Visit Sleep Disorders Ctr [facility] [address] [place] [phone] Lindsey Sheikh CRNP [address] [place] [address] Scheduled Procedures Name Priority Associated Diagnoses Date/Ti [...] Additional history exists Nephrology Referral 03/03/2025 03/03/2024 Diabetic Eye Exam 04/11/2025 04/11/2024, , 03/23/2024, Additional history exists O2 ASSESSMENT COMPLETED IN PAST YEAR FOR COPD 05/02/2025 05/02/2024 Hgb 05/13/2025 05/13/2024, 09/0 12/2023, 02/24/2024, Additional history exists PTH 05/13/2025 05/13/2024, 08/3 07/2021, 09/12/2020 Phosphate 05/13/2025 05/13/2024, 04/2 08/2023, 10/23/2023, Additional history exists Albumin/Creatinine Ratio 05/18/2025 024, 05/13/2024, 06/11/2023, Additional history exists Arreola's Esophagus Surveilance 06/16/2025 [...] this encounter Medical Devices Implanted Type Area Linux Administrator Device Identifier Shelf Expiration Date Model / Serial / Lot Lens Intraoc 21.0 - [id number] - [id number] Implanted:Qty: 1 on 01/22/2017 by Cheko Mcnamara MD at OR [facility] Right: Eye BAUSCH & LOMB 08/05/2021 [id number] / [id number] / [id number] Lens Intraoc 21.5 - [id number] - [id number] Implanted:Qty: 1 on 02/03/2017 by Cheko Mcnamara MD at OR [facility] Left: Eye BAUSCH & LOMB 09/02/2021 [id number] / [id number] / [id number] documented as of this encounter Advance Directives [...] and were consensually agreed upon. Care Teams Private Mortgage Banker Safe Relationship Specialty Start Date End Date Igor Mcconnell DO [address] [place] [address] PCP - General Internal Medicine 02/12/24 documented as of this encounter
--- OUTSIDE RECORDS SUMMARY | 2024-08-26 02:33 | External Medical Summary | Summary of Care ---
Author Name Unknown Organization [facility] Address [address] [facility] [address] Phone [phone] Care Team Providers Care Director Of Retention Name Role Phone Igor Mcconnell DO Primary Care Provider [phone] Reason for Visit * Reason Onset Date Comments [facility]: Maintenance 05/24/2024 Encounter Details Date Type Department Care Team (Late st Contact Info) Description 05/24/2024 Telephone [facility], [facility] [address] [facility] [place] [address] Alexandra Mcgraw, EMT/PARAMEDIC [address] [place] [address] [facility]: Maintenance Allergies Active Allergy [...] type 2 diabetes mellitus with hyperglycemia ([facility]) USE TO TEST BLOOD GLUCOSE 3 TIMES [...] with long-term current use of insulin ([facility]) Inject 2 mg under the skin once [...] goal of less than 7.0% ([facility]) INJECT UNDER THE SKIN 20 UNITS AT BREAKFAST, 26 UNITS AT LUNCH, 38 UNITS WITH DINNER PLUS CORRECTION PER [facility] OR DIRECTED UP TO 120 UNITS PER DAY 120 mL 3 4 7:52 AM EDT 03/21/20 24 Active DIURETIC TITRATION PLAN If no improvement on day 3, contact [facility] for possible home visit 1 [...] 4 7:46 AM EDT 04/18/20 24 Active Qvlxl-0-iali Ethyl Esters 1 GM Oral Capsule (Lovaza) [...] 2 tablets at bedtime 450 Tablet 3 05/23/20 24 Active documented as of this [...] yrs 01/04/2018,08/03/2017,07/03 Pneumococcal Conjugate Vacci ne, 20-valent ([id number]) 06/09/2022 Pneumococcal Polysaccharide PPV23 (Pneumovax) 03/06/2020 RSV [...] Telephone Encounter - Alexandra Mcgraw LPN - 05/24/2024 9:53 AM EST Images from the original note were not included. [facility] trigger for weight gain TT to [facility] RNCM, she is with pt now and is aware of trigger No call placed documented in this encounter Plan of Treatment Upcoming Encounters Date Type Department Care Team (Late st Contact Info) Description 05/30/2024 1:00 PM EST Telemedicine [facility]iology [facility] [place] [address] [place] [address] [facility], Pharmacist Cardiology [facility] [address] [place] [address] 05/30/2024 2:20 PM EST Office Visit Nephrology [address] [place] [address] Shivani Magallon MD [address] [place] [address] 05/31/2024 3:30 PM EST Scheduled Telephone [facility], [facility] [address] [facility] [place] [address] Mery Calderon RDN [address] [facility] [place] [address] 06/13/2024 11:15 AM EST Hospital Encounter ENDO [facility]C, Endoscopy Room [facility] [place] [phone] José Miguel Sifuentes MD 132 [facility] [place] [address] 06/13/2024 11:15 AM EST - 06/13/2024 11:45 AM EST Surgery ENDO [facility], Endoscopy Room [facility] [place] [phone] José Miguel Sifuentes MD [facility] [place] [address] COLONOSCOPY FLEXIBLE PROXIMAL DIAGNOSTIC 07/01/2024 2:20 PM EST Office Visit Family Practice [address] [place] [address] 293 [place] [address] Igor Mcconnell, 293 [place] [address] 08/08/2024 9:30 AM EST Nurse Only Ancillary Lazaro Hyde[address] [place] [address] [place], Nurse [address] [place] [address] 10/27/2024 1:00 PM EDT [facility] [address] [place] [phone] Lindsey Sheikh CRNP [address] [place] [address] Scheduled Procedures Name Priority Associated Diagnoses Date/Ti [...] encounter Medical Devices Implanted Type Area Bridge Inspector Device Identifier Shelf Expiration Date Model / Serial / Lot Lens Intraoc 21.0 - [id number] - [id number] Implanted:Qty: 1 on 01/22/2017 by Cheko Mcnamara MD at OR [facility] Right: Eye BAUSCH & LOMB 08/05/2021 [id number] / [id number] / [id number] Lens Intraoc 21.5 - [id number] - [id number] Implanted:Qty: 1 on 02/03/2017 by Cheko Mcnamara MD at [facility] Left: Eye BAUSCH & LOMB 09/02/2021 [id number] / [id number] / [id number] documented as of this encounter Advance Directives [...] consensually agreed upon. Care Teams Director Of Retention Relationship Specialty Start Date End Date Igor Mcconnell DO [address] [place] [address] PCP - General Internal Medicine 02/12/24 documented as of this encounter
--- OUTSIDE RECORDS SUMMARY | 2024-08-26 02:33 | External Medical Summary | Summary of Care ---
Author Name Unknown Organization [facility] Address [address] [facility] [address] Phone [phone] Care Team Providers Care Pipe Fitter Ammonia Name Role Phone FaizachuIgor DO Primary Care Provider [phone] Encounter Details Date Type Department Care Team (Late st Contact Info) Description 05/23/2024 Refill Nephrology, Susan Palacios 200 [facility] [place] [address] Mikal Covington MD 200 [facility] [place] [address] HTN, goal below 130/80*; Stage 3b chronic kidney disease (HCC) Allergies Active Allergy Reactions Criticality Noted Date Comments Metolazone Renal complications 11/10/2023 Note prior DTP with metolazone resulted in acute renal failure Other Allergy (See Comments) Rash Low 10/13/2022 1+ cocamidopropyl betaine Sglt2 Inhibitors Other (Please comment) High 09/04/2020 Genital infection Sulfa Antibiotics Rash 10/15/2016 documented as of this encounter (statuses as of 05/23/2024) Medications Aspirin 81 MG Tablet Take 1 [...] of less than 7.0% ([facility]) Use as directed every 14 [...] Uncontrolled type 2 diabetes mellitus with hyperglycemia ([facility]) USE TO TEST BLOOD GLUCOSE [...] ([facility]) INJECT UNDER THE SKIN 100 [...] 38 UNITS WITH DINNER PLUS CORRECTION PER [facility] OR DIRECTED UP TO 120 UNITS PER DAY 120 mL 3 4 7:52 AM EDT 03/21/20 24 Active DIURETIC TITRATION PLAN If no improvement on day 3, contact [facility] for possible home visit 1 [...] 4 7:46 AM EDT 04/18/20 24 Active Atzmw-2-pavo Ethyl Esters 1 GM Oral Capsule (Lovaza) [...] Oral Tablet Extended Release Take 2 tablets in AM 1 tablet at noon and 2 tablets at bedtime 450 Tablet 3 05/23/20 24 Active Potassium Chloride Gaviota ER 20 MEQ Oral Tablet Extended Release Take 1 Tablet by mouth in the morning and 1 Tablet at noon and 1 Tablet before bedtime. 180 Tablet 3 4 4:59 PM EDT 04/14/20 24 024 Discontin ued(Refil l) documented as of this encounter (statuses as of 05/23/2024) Active Problems Patient Care Coordination No te [...] in the Comments) Remote Patient Monitoring Vendor: [employer] Device(s): Connected Scale Self - Management Plan [...] as of this encounter (statuses as of 05/23/2024) Resolved Problems Problem Noted Date Diagnosed Date [...] as of this encounter (statuses as of 05/23/2024) Immunizations Name Administration Dates Next Due COVID-19 mRNA, LNP-s, No Pre serve, 2-Dose Series (Moderna) 12/10/2020,11/12/2020 Hepatitis B, 20+ yrs 01/04/2018,08/03/2017,07/03 Pneumococcal Conjugate Vacci ne, 20-valent ([id number]) 06/09/2022 Pneumococcal Polysaccharide PPV23 (Pneumovax) 03/06/2020 RSV [...] Telephone Encounter - Mikal Covington MD - 05/23/2024 4:53 PM ESTSigned Prescriptions: Disp Refills Potassium Chloride Gaviota ER 20 MEQ Oral Tab*450 Ta*3 Sig: Take 2 tablets in AM 1 tablet at noon and 2 tablets at bedtimeAuthorizing Provider: MIKAL COVINGTON---- * Telephone Encounter - Marisa Alcocer LPN - 05/23/2024 12:52 PM EST Followed up with pt via TE Pt does admit to taking Kcl 20 meq tid as orderd has increased dose per MyG message instructions from Dr Covington but will need new Rx to mail order Pt will repeat labs prior to f/u visit MD please approve Rx * Telephone Encounter - Marisa Alcocer LPN - 05/23/2024 12:48 PM EST ----- Message from Mikal Covington MD sent at 05/20/2024 4:56 PM EST ----- Kidney labs stable w/ advanced CKD (stage 4), low potassium. Proteinuria better. Currently on K 20 mEq 3 times a day Please verify >> is he taking this dose of potassium? If so, increase to 2 x 20 mEQ tabs AM and PM AND continue midday dose 20 mEq If not, start taking as rx'd Then repeat BMP 1-2 days before 05/30 appt MyG sent; neph nurse pls check in w/ pt//update med list and orders documented in this encounter Plan of Treatment Upcoming Encounters Date Type Department Care Team (Late st Contact Info) Description 05/24/2024 8:30 AM EST Home Visit [facility] [address] [address] Love Stevens, ANNE MARIE [address] [place] [address] 05/30/2024 1:00 PM EST Telemedicine Cardiology [facility] [place] [address] [place] [address] [facility], Pharmacist Cardiology [facility] [address] [place] [address] 05/30/2024 2:20 PM EST Office Visit Nephrology [address] [place] [address] Mikal Covington MD [address] [place] [address] 05/31/2024 3:30 PM EST Scheduled Telephone [facility], [facility] [address] [facility] [place] [address] Mery Calderon RDN 1000 [address] [facility] [place] [address] 06/13/2024 11:15 AM EST Hospital Encounter ENDO OSSC, Endoscopy Room [facility] [address] [place] [phone] José Miguel Sifuentes MD [address] [place] [address] 06/13/2024 11:15 AM EST - 06/13/2024 11:45 AM EST Surgery ENDO OSSC, Endoscopy Room [facility] [address] [place] [phone] José Miguel Sifuentes MD [facility] [place] [address] COLONOSCOPY FLEXIBLE PROXIMAL DIAGNOSTIC 07/01/2024 2:20 PM EST Office Visit Family Practice [address] [place] [address], [place] 293 [facility] [place] [address] Igor Mcconnell, 293 [place] [address] 08/08/2024 9:30 AM EST Nurse Only Ancillary Lazaro Hyde[address] [place] [address] [place], Nurse [address] [place] [address] 10/27/2024 1:00 PM EDT Office Visit Sleep Disorders Ctr Maximiliano [place] [address] [place] [phone] Lindsey Sheikh CRNP [address] [place] [address] Scheduled Orders Name Type Priority Associated Diagnoses Orde r Schedule BASIC METABOLIC PANEL Lab Routine HTN, goal below 130/80 Stage 3b chronic kidney disease (HCC) Expected: 05/23/2024 (Approximate), Expires: 05/23/2025 Scheduled Procedures Name Priority Associated Diagnoses Date/Ti [...] 05/13/2024, 083 07/2021, 09/12/2020 Phosphate 05/13/2025 05/13/2024, 0408/2023, 10/23/2023, [...] this encounter Medical Devices Implanted Type Area Marker Hand Device Identifier Shelf Expiration Date Model / Serial / Lot Lens Intraoc 21.0 - [id number] - [id number] Implanted:Qty: 1 on 01/22/2017 by Cheko Mcnamara MD at OR [facility] Right: Eye BAUSCH & LOMB 08/05/2021 [id number] / [id number] / [id number] Lens Intraoc 21.5 - [id number] - [id number] Implanted:Qty: 1 on 02/03/2017 by Cheko Mcnamara MD at OR [facility] Left: Eye BAUSCH & LOMB 09/02/2021 [id number] / [id number] / [id number] documented as of this encounter Visit Diagnoses [...] right eye and macular edema, unspecified whether skilled nursing insulin use (HCC) Chronic obstructive pulmonary disease, unspecified COPD type (HCC) Sacroiliitis (HCC) Sacroiliitis, not elsewhere classified Other specified peripheral vascular diseases (HCC) Coronary artery calcification seen on CT scan Mixed dyslipidemia Mixed hyperlipidemia HTN, goal below 130/80- Primary Unspecified essential hypertension Stage 3b chronic kidney [...] and were consensually agreed upon. Care Teams Pipe Fitter Ammonia Relationship Specialty Start Date End Date Igor Mcconnell DO [address] [place] [address] PCP - General Internal Medicine 02/12/24 documented as of this encounter
--- OUTSIDE RECORDS SUMMARY | 2024-08-26 02:33 | External Medical Summary | Summary of Care ---
Author Name Unknown Organization [facility] Address [address] [facility] [place] [address] Phone [phone] Care Team Providers Care Tankroom Tender Name Role Phone Igor Mcconnell DO Primary Care Provider [phone] Reason for Visit * Reason Onset Date Comments [facility]: Maintenance 05/22/2024 Encounter Details Date Type Department Care Team (Late st Contact Info) Description 05/22/2024 12:00 PM EST Scheduled Telephone [facility], [facility] [address] [facility] [place] [address] [facility], Nurse [facility] [address] [facility] [place] [address] Allergies Active Allergy Reactions Criticality Noted Date Comments Metolazone Renal complications 11/10/2023 Note prior DTP with metolazone resulted in acute renal failure Other Allergy (See Comments) Rash Low 10/13/2022 1+ cocamidopropyl betaine Sglt2 Inhibitors Other (Please comment) High 09/04/2020 Genital infection Sulfa Antibiotics Rash 10/15/2016 documented as of this encounter (statuses as of 05/22/2024) Medications Aspirin 81 MG Tablet Take 1 [...] type 2 diabetes mellitus with hyperglycemia ([facility]) USE TO TEST BLOOD GLUCOSE [...] current use of insulin ([facility]) Inject 2 mg under the [...] A1c goal of less than 7.0% ([facility]) INJECT UNDER THE SKIN 20 UNITS AT BREAKFAST, 26 UNITS AT LUNCH, 38 UNITS WITH DINNER PLUS CORRECTION PER [facility] OR DIRECTED UP TO 120 UNITS PER DAY 120 mL 3 4 7:52 AM EDT 03/21/20 24 Active DIURETIC TITRATION PLAN If no improvement on day 3, contact [facility] for possible home visit 1 Each 03/24/20 24 Active Evolocumab 140 MG/ML Subcutaneous Solution Auto-injector (FirstC[employer].comath[employer]elligent Apps (mytaxi)Click)Indicati ons:Dyslipidemia, goal LDL below 100,Mixed dyslipidemia Inject [...] 4 7:46 AM EDT 04/18/20 24 Active Isduw-3-bwqu Ethyl Esters 1 GM Oral Capsule (Lovaza) [...] 2:43 PM EST 05/17/20 24 025 Active documented as of this encounter (statuses as of 05/22/2024) Active Problems Patient Care Coordination No te Formatting of this note migh t be different from the original. Heart Failure Self-Management and Exacerbation Plan "RED FLAG" HF Symptoms: Leg Swelling Abdominal Bloating Increased dyspnea on exertion Increased shortness of breath at rest Orthopnea Remote Patient Monitoring Vendor: [facility] [...] as of this encounter (statuses as of 05/22/2024) Resolved Problems Problem Noted Date Diagnosed Date [...] as of this encounter (statuses as of 05/22/2024) Immunizations Name Administration Dates Next Due COVID-19 mRNA, LNP-s, No Pre serve, 2-Dose Series (Moderna) 12/10/2020,11/12/2020 Hepatitis B, 20+ yrs 01/04/2018,08/03/2017,07/03 Pneumococcal Conjugate Vacci ne, 20-valent ([id number]) 06/09/2022 Pneumococcal Polysaccharide PPV23 (Pneumovax) 03/06/2020 RSV [...] Encounter - Mary Jane Moser RN - 05/22/2024 3:14 PM EST Images from the original note were not included. [facility] Telephonic Nurse Follow-Up Call [facility] Subprogram: Focused Care Management (3-9 months) Follow Up Call Type: Weekend Call Acute issue requiring follow-up call: Remote Patient Monitoring Trigger Objective: 05/02/2024 3:00 PM 03/29/2024 2:16 PM 03/16/2024 2:50 PM 03/11/2024 8:19 AM 03/03/2024 3:04 PM VITALS ACROSS ENCOUNTERS BP 122/58 132/58 124/60 122/68 130/54 Pulse 70 72 72 62 67 Weight 124.2 kg 130.6 kg 132.2 kg BMI 37.15 kg/m2 39.06 kg/m2 39.53 kg/m2 Remote Patient Monitoring: AMC Scale: x Oxygen Needs: NO supplemental oxygen needs identified DME Needs: NO DME needs identified Medications: Current DTP: Add metolazone (Zaroxolyn) 2.5-5mg for 2 days. If using a potassium supplement, doublethe dose of the supplement will be given on the day of and on the day after the metolazone, [id number] Subjective: Condition Status: No change in symptoms Current Concerns: Pt frustrated, reports not sure why this up and down with his weight happens all the time. cooks with no salt, buys low sodium food, if he does take a bite of something when out and it is salty,it is overwhelming because he isn't used to it Take meds as ordered, staying active as much as he can Advised to start DTP of Metolazone 2.5 mg today and tomorrow. He had already taken today's dose before the call Disposition: Issue resolved. All appropriate follow up scheduled. Future Visits Scheduled: Future Appointments-next 60 days Date/Time Provider Specialty Dept Phone 05/24/2024 8:30 AM Love Stevens RN [facility] [phone] 05/30/2024 1:00 PM [place] Pharmacist Cardiology [facility] Arrive at: Patient's Home [phone] 05/30/2024 2:20 PM (Arrive by 2:05 PM) Shivani Magallon MD Nephrology [phone] 05/31/2024 3:30 PM Mery Calderon RDN [facility] [phone] 07/01/2024 2:20 PM (Arrive by 2:05 PM) Igor Mcconnell, DO Family Medicine [phone] 08/08/2024 9:30 AM [place], Nurse [facility] [phone] 10/27/2024 1:00 PM (Arrive by 12:45 PM) Lindsey Sheikh CRNP Sleep Disorders [phone] Mary Jane Moser, RN documented in this encounter Plan of Treatment Upcoming Encounters Date Type Department Care Team (Late st Contact Info) Description 05/24/2024 8:30 AM EST Home Visit [facility], [facility] [address] [place] [address] Love Stveens, ANNE MARIE [address] [place] [address] 05/30/2024 1:00 PM EST Telemedicine Cardiology [facility], [place] [address] [place] [address] [place], Pharmacist Cardiology [facility] [address] [place] [address] 05/30/2024 2:20 PM EST Office Visit Nephrology [address] [place] [address] Shivani Magallon MD [address] [place] [address], [place] [address] 05/31/2024 3:30 PM EST Scheduled Telephone [facility], [facility] [address] [facility] [place] [address] Mery Calderon RDN [address] [place] [address] 06/13/2024 11:15 AM EST Hospital Encounter ENDO [facility], Endoscopy Room [facility] 132 [place] [phone] José Miguel Sifuentes MD [address] [place] [address] 06/13/2024 11:15 AM EST - 06/13/2024 11:45 AM EST Surgery ENDO [facility], Endoscopy Room [facility] [address] [place] [phone] José Miguel Sifuentes MD 132 [facility] [place] [address] COLONOSCOPY FLEXIBLE PROXIMAL DIAGNOSTIC 07/01/2024 2:20 PM EST Office Visit Family [address] 293 [place] [phone] Igor Mcconnell, 293 [place] [address] 08/08/2024 9:30 AM EST Nurse Only Ancillary [address] [place] [address] [place], Nurse [address] [place] [address] 10/27/2024 1:00 PM EDT Office Visit Sleep Disorders Ctr [facility] [address] [place] [phone] Lindsey Sheikh CRNP 132 [facility] [place] [address] Scheduled Procedures Name Priority Associated Diagnoses Date/Ti [...] this encounter Medical Devices Implanted Type Area Drill Instructor Device Identifier Shelf Expiration Date Model / Serial / Lot Lens Intraoc 21.0 - [id number] - [id number] Implanted:Qty: 1 on 01/22/2017 by Cheko Mcnamara MD at OR [facility] Right: Eye [employer] 08/05/2021 [id number] / [id number] / [id number] Lens Intraoc 21.5 - [id number] - [id number] Implanted:Qty: 1 on 02/03/2017 by Cheko Mcnamara MD at OR [facility] Left: Eye BAUSCH [employer] LOMB 09/02/2021 [id number] / [id number] / [id number] documented as of this encounter Advance Directives [...] and were consensually agreed upon. Care Teams Tankroom Tender Relationship Specialty Start Date End Date Igor Mcconnell DO 293 [facility] [place] [address] PCP - General Internal Medicine 02/12/24 documented as of this encounter
--- OUTSIDE RECORDS SUMMARY | 2024-08-26 02:34 | External Medical Summary ---
Author Name Unknown Address Unknown Organization K1H:[facility] - [address] [facility] [address] Laboratory Report Ordering Provider Test Date Status KIMMY HORAN 05/18/2024 06:48:00 Final Normal: <30 mg/g creatinine< br/>High: 30-300 mg/g creatinine
Very High: >300 mg/g creatinine
Nephrotic: >2200 mg/g creatinine Observation Date Value Abnormality Reference (Units ) Status Albumin, Urine 05/18/2024 06:48:00 1.70 (mg/d L) Final This testing was performed a s part of a [facility] Care-[employer] fulfillment initiative Creatinine, Urine 05/18/2024 06:48:00 57 (m g/dL) Final Albumin/Creatinine [Mass Ratio] in Urine 05/18/2024 06:48:00 30 Above high normal <30 (mg /g Creat) Final Performing Location [facility] - [address] [facility] [address]
--- OUTSIDE RECORDS SUMMARY | 2024-08-26 02:34 | External Medical Summary | Summary of Care ---
Author Name Unknown Organization [facility] Address [address] [place] [address] Phone [phone] Care Team Providers Care Pediatric Allergist Name Role Phone FaizachuIgor DO Primary Care Provider [phone] Reason for Visit * Reason Onset Date Comments Remote Patient Monitoring Alert 05/16/2024 Encounter Details Date Type Department Care Team (Late st Contact Info) Description 05/16/2024 Home Monitoring Care Coordination [address] [place] [address] Leona Eckert LPN HTN, goal below 130/80* Allergies Active Allergy Reactions Criticality Noted Date Comments Metolazone Renal complications 11/10/2023 Note prior DTP with metolazone resulted in acute renal failure Other Allergy (See Comments) Rash Low 10/13/2022 1+ cocamidopropyl betaine Sglt2 Inhibitors Other (Please comment) High 09/04/2020 Genital infection Sulfa Antibiotics Rash 10/15/2016 documented as of this encounter (statuses as of 05/16/2024) Medications Aspirin 81 MG Tablet Take 1 [...] goal of less than 7.0% ([facility]) Use as directed every 14 days . 6 Each 3 04/24/20 22 Active Metamucil 28.3 % Oral Powder (Psyllium) Take by mouth daily. At least 1 hour after other medications Active Carvedilol 25 MG Oral Tablet (Coreg)Indications :HTN, goal below 140/90 TAKE ONE TABLET BY MOUTH EVERY MORNING AND TAKE ONE TABLET BY MOUTH BEFORE BEDTIME 200 Tablet 3 4 3:20 PM EDT 04/19/20 23 024 Active Evolocumab 140 MG/ML Subcutaneous Solution [...] DINNER PLUS CORRECTION PER [facility] OR DIRECTED UP TO 120 [...] 14 days. 6 mL 3 03/24/20 Active Potassium Chloride Gaviota ER 20 MEQ Oral Tablet Extended Release Take 1 Tablet by mouth in the morning and 1 Tablet at noon and 1 Tablet before bedtime. 180 Tablet 3 4 4:59 PM EDT 04/14/20 Active Unifine Pentips 31G X 8 MM (Insulin Pen Needle)Indications :Type 2 diabetes mellitus with hemoglobin A1c goal of less than 7.0% (HCC) USE TO INJECT INSULINS 5 TIMES DAILY 500 Each 3 4 7:46 AM EDT 04/18/20 Active Zvmsh-7-zdov Ethyl Esters 1 GM Oral Capsule (Lovaza) [...] as of this encounter (statuses as of 05/16/2024) Active Problems Patient Care Coordination No te Formatting of this note migh t be different from the original. Heart Failure Self-Management and Exacerbation Plan "RED FLAG" HF Symptoms: Leg Swelling Abdominal Bloating Increased dyspnea on exertion Increased shortness of breath at rest Orthopnea Remote Patient Monitoring Vendor: [facility] [...] in the Comments) Remote Patient Monitoring Vendor: [employer]ory Device(s): Connected Scale Self - Management Plan [...] as of this encounter (statuses as of 05/16/2024) Resolved Problems Problem Noted Date Diagnosed Date [...] as of this encounter (statuses as of 05/16/2024) Immunizations Name Administration Dates Next Due COVID-19 mRNA, LNP-s, No Pre serve, 2-Dose Series (Moderna) 12/10/2020,11/12/2020 Hepatitis B, 20+ yrs 01/04/2018,08/03/2017,07/03 Pneumococcal Conjugate Vacci ne, 20-valent ([id number]) 06/09/2022 Pneumococcal Polysaccharide PPV23 (Pneumovax) 03/06/2020 RSV [...] No 05/02/2024 Does the household have a [facility] source of income? (Household - for [...] Progress Notes * Clary Gregg RPh - 05/16/2024 11:11 AM EST Systolic Diastolic Pulse Systolic Diastolic 122 62 Average 127 64 120 64 136 66 High 71 71 121 63 Low 55 55 117 55 130 68 Range 16 16 120 60 Count 11 11 127 61 137 71 130 63 136 71 BP at goal, no changes at this time. Clary Gregg RPh, PharmD Clinical Pharmacist - Medical Records Specialist Medication Therapy [facility] 05/16/2024, 11:11 AM [phone] * Leona Eckert LPN - 05/16/2024 11:08 AM EST Tony Delong [phone] Tony Delong is currently participating in the [employer] Hypertension Management Program and hada reading on 05/14 of 136/66. Pt has alerted for an Average BP [...] we can have them changed. Thank you! LEONA ECKERT LPN documented in this encounter Plan of Treatment Upcoming Encounters Date Type Department Care Team (Late st Contact Info) Description 05/24/2024 8:30 AM EST [facility] Visit [facility], [facility] 132 [facility] [place] [address] Love Stevens, RN 132 [facility] [place] [address] 05/30/2024 1:00 PM EST Telemedicine Cardiology [facility] [place] [address] [place] [facility] [place] [address] [place] [address], Pharmacist Cardiology [facility] [address] [place] [facility] [place] [address] 05/30/2024 2:20 PM EST Office Visit Nephrology [address] [place] [address] Shivani Magallon MD [address] [place] [address] [place] [address] 05/31/2024 3:30 PM EST Scheduled Telephone [facility], [facility] [address] [facility] [place] [address] Mery Calderon, RDN [address] [facility] [place] [address] 06/13/2024 11:15 AM EST Hospital Encounter ENDO [facility], Endoscopy Room [facility] [address] [place] [phone] José Miguel Sifuentes MD [address] [place] [address] 06/13/2024 11:15 AM EST - 06/13/2024 11:45 AM EST Surgery ENDO [facility], Endoscopy Room [facility] [address] [place] [phone] José Miguel [facility]uentes MD [facility] [place] [address] COLONOSCOPY FLEXIBLE PROXIMAL DIAGNOSTIC 07/01/2024 2:20 PM EST Office Visit Family Practice [address] [place] [address] 293 [place] [address] Igor Mcconnell, 293 [place] [address] 08/08/2024 9:30 AM EST Nurse Only Ancillary [address] [place] [address] [place], Nurse [address] [place] [address] 10/27/2024 1:00 PM EDT Office Visit Sleep Disorders Ctr [facility] [address] [place] [phone] Lindsey Sheikh CRNP [address] [place] [address] Scheduled Procedures Name Priority Associated Diagnoses Date/Ti [...] IN PAST YEAR FOR COPD 05/02/2025 05/02/2024 Albumin/Creatinine Ratio 05/13/20252 024, 06/11/2023, 09/22/2022, Additional history exists Hgb 05/13/2025 05/13/2024, 09/0 12/2023, 02/24/2024, Additional history exists PTH 05/13/2025 05/13/2024, 08/3 07/2021, 09/12/2020 Phosphate 05/13/2025 05/13/2024, 042 08/2023, 10/23/2023, Additional history exists Arreola's Esophagus Surveilance 06/16/2025 [...] this encounter Medical Devices Implanted Type Area Salesman/Owner Device Identifier Shelf Expiration Date Model / Serial / Lot Lens Intraoc 21.0 - [id number] - [id number] Implanted:Qty: 1 on 01/22/2017 by Cheko Mcnamara MD at OR [facility] Right: Eye [employer] LOMB 08/05/2021 [id number] / [id number] / [id number] Lens Intraoc 21.5 - [id number] - [id number] Implanted:Qty: 1 on 02/03/2017 by Cheko Mcnamara MD at OR [facility] Left: Eye BAUSCH & LOMB 09/02/2021 [id number] / [id number] / [id number] documented as of this encounter Visit Diagnoses [...] right eye and macular edema, unspecified whether long-term insulin use (HCC) Chronic obstructive pulmonary disease, [...] and were consensually agreed upon. Care Teams Pediatric Allergist Relationship Specialty Start Date End Date Igor Mcconnell DO [address] [place] [address] PCP - General Internal Medicine 02/12/24 documented as of this encounter
--- OUTSIDE RECORDS SUMMARY | 2024-08-26 02:34 | External Medical Summary | Summary of Care ---
Author Name Unknown Organization [facility] Address [address] [facility] [address] Phone [phone] Care Team Providers Care Clinical Documentation Manager Name Role Phone Igor Mcconnell DO Primary Care Provider [phone] Reason for Visit * Reason Onset Date Comments [facility]: Maintenance 05/17/2024 Encounter Details Date Type Department Care Team (Late st Contact Info) Description 05/17/2024 Telephone [facility], [facility] [address] [facility] [place] [address] Alexandra Mcgraw, SIGHTSEEING GUIDE [address] [place] [address] [facility]: Maintenance Allergies Active Allergy Reactions Criticality Noted Date Comments Metolazone Renal complications 11/10/2023 Note prior DTP with metolazone resulted in acute renal failure Other Allergy (See Comments) Rash Low 10/13/2022 1+ cocamidopropyl betaine Sglt2 Inhibitors Other (Please comment) High 09/04/2020 Genital infection Sulfa Antibiotics Rash 10/15/2016 documented as of this encounter (statuses as of 05/17/2024) Medications Aspirin 81 MG Tablet Take 1 [...] disease, with long-term current use of insulin ([facility]) Inject 2 mg under [...] UNITS WITH DINNER PLUS CORRECTION PER [facility] OR DIRECTED UP TO 120 UNITS PER DAY 120 mL 3 4 7:52 AM EDT 03/21/20 24 Active DIURETIC TITRATION PLAN If no improvement on day 3, contact [facility] for possible home visit 1 Each 03/24/20 Active Evolocumab 140 MG/ML Subcutaneous Solution Auto-injector ([employer] Onion Corporationick)Indicati ons:Dyslipidemia, goal LDL below 100,Mixed dyslipidemia Inject [...] 4 7:46 AM EDT 04/18/20 24 Active Yyejp-1-vcwq Ethyl Esters 1 GM Oral Capsule (Lovaza) [...] MINUTES BEFORE A MEAL 180 Capsule 1 7:11 AM EDT 05/02/20 24 025 Active documented as of this encounter (statuses as of 05/17/2024) Active Problems Patient Care Coordination No te [...] as of this encounter (statuses as of 05/17/2024) Resolved Problems Problem Noted Date Diagnosed Date [...] as of this encounter (statuses as of 05/17/2024) Immunizations Name Administration Dates Next Due COVID-19 mRNA, LNP-s, No Pre serve, 2-Dose Series (Moderna) 12/10/2020,11/12/2020 Hepatitis B, 20+ yrs 01/04/2018,08/03/2017,07/03 Pneumococcal Conjugate Vacci ne, 20-valent ([id number]) 06/09/2022 Pneumococcal Polysaccharide PPV23 (Pneumovax) 03/06/2020 RSV [...] Telephone Encounter - Alexandra Mcgraw LPN - 05/17/2024 9:18 AM EST Images from the original note were not included. [facility] Remote Patient Monitoring Able to contact patient: Trigger type: Abnormal reading(s): AMC (Advanced Monitored Caregiving): Scale: Baseline weight: not set lbs Trigger weight: 275.7 lbs; weight increased 3.6 lbs in 1 day(s) Trigger priority per AMC: high Patient takes diuretic medication: Yes, reviewed current diuretic use: Name of medication: Torsemide Dose: 80 mg Frequency: daily Symptom review: asymptomatic Diet Reviewed: Yes. Patient has had any foods high in sodium: No Fluid Intake Reviewed: Yes. Patient is on a fluid restriction: Yes, restriction amount in milliliters or liters: 2 Adherent to restriction: No, pt reports he went over fluid restriction yesterday Self-Management Plan Reviewed: Risk assignment recommendation: [...] as applicable): [] High trigger priority on [facility] [] Confirmed tympanic equivalent temperature greater than [...] 90 WITH symptoms Additional risk selection justification: [facility] trigger for weight gain of 3.6 lbs in one day Call to pt reports he feels fine Denies increased SOB, not on O2, -CP, -cough, BLE edema at base line, -ABD distention Pt reports he went over fluid restriction yesterday Pt reports he took metolazone today when he saw his weight was up over 3 lbs in one day F/u call scheduled for tomorrow Pt is aware to call [facility] at [phone]# with any new or worsening symptoms Overall risk and identified plan: Moderate risk: Next day follow up call scheduled Route to RNCM (Registered Nurse Plodding Machine Operator) and Advance Practitioner documented in this encounter Plan of Treatment Upcoming Encounters Date Type Department Care Team (Late st Contact Info) Description 05/18/2024 10:00 AM EST Scheduled Telephone [facility], [facility] [address] [facility] [place] [address] Coordinator, [facility] 132 [facility] [place] [address] 05/24/2024 8:30 AM EST Home Visit [facility], [facility] 132 [facility] [place] [address] Love Stevens RN 132 [facility] [place] [address] 05/30/2024 1:00 PM EST Telemedicine Cardiology [facility], [place] [address] [place] [address] [place], Pharmacist Cardiology [facility] [address] [place] [address] 05/30/2024 2:20 PM EST Office Visit Nephrology [address] [place] [address] Shivani Magallon MD [address] [place] [address] [place] [address] 05/31/2024 3:30 PM EST Scheduled Telephone [facility], [facility] [address] [facility] [place] [address] Mery Calderon RDN [address] [facility] [place] [address] 06/13/2024 11:15 AM EST Hospital Encounter ENDO [facility], Endoscopy Room [facility] [address] [place] [phone] José Miguel Sifuentes MD [address] [place] [address] 06/13/2024 11:15 AM EST - 06/13/2024 11:45 AM EST Surgery ENDO O[facility], Endoscopy Room [facility] [address] [place] [phone] José Miguel Sifuentes MD [address] [place] [address] COLONOSCOPY FLEXIBLE PROXIMAL DIAGNOSTIC 07/01/2024 2:20 PM EST Office Visit Family Practice [address] [place] [address] 293 [place] [address] Igor Mcconnell DO 293 [place] [address] 08/08/2024 9:30 AM EST Nurse Only Ancillary [address] [place] [address] [place], Nurse [address] [place] [address] 10/27/2024 1:00 PM EDT Office Visit [facility] Disorders Ctr [facility] [place] [phone] Lindsey Sheikh CRNP [address] [facility] [place] [address] Scheduled Procedures Name Priority Associated Diagnoses Date/Ti [...] YEAR FOR COPD 05/02/2025 05/02/2024 Albumin/Creatinine Ratio 05/13/2025 024, 06/11/2023, 09/22/2022, Additional history exists Hgb 05/13/2025 05/13/2024, 09/0 12/2023, 02/24/2024, Additional history exists PTH 05/13/2025 05/13/2024, 08/3 07/2021, 09/12/2020 Phosphate 05/13/2025 05/13/2024, 04/2 08/2023, 10/23/2023, Additional history exists Arreola's Esophagus [...] this encounter Medical Devices Implanted Type Area Needle Loom Tender Device Identifier Shelf Expiration Date Model / Serial / Lot Lens Intraoc 21.0 - [id number] - [id number] Implanted:Qty: 1 on 01/22/2017 by Cheko Mcnamara MD at OR [facility] Right: Eye [employer]OMB 08/05/2021 [id number] / [id number] / [id number] Lens Intraoc 21.5 - [id number] - [id number] Implanted:Qty: 1 on 02/03/2017 by Cheko Mcnamara MD at OR [facility] Left: Eye BAUSCH [employer] LOMB 09/02/2021 [id number] / [id number] / [id number] documented as of this encounter Advance Directives [...] and were consensually agreed upon. Care Teams Clinical Documentation Manager Relationship Specialty Start Date End Date Igor Mcconnell DO [address] [facility] [place] [address] PCP - General Internal Medicine 02/12/24 documented as of this encounter
--- OUTSIDE RECORDS SUMMARY | 2024-08-26 02:34 | External Medical Summary | Summary of Care ---
Author Name Unknown Organization [facility] Address [address] [facility] [place] [address] Phone [phone] Care Team Providers Care Seed Cleaning Manager Name Role Phone Raquel Mcconnell DO Primary Care Provider [phone] Reason for Visit * Reason Comments Medication Refill Encounter Details Date Type Department Care Team (Late st Contact Info) Description 05/16/2024 Refill Family Medicine [address] [place] [phone] [address] [place] [address] HTN, goal below 140/90 Allergies Active Allergy Reactions Criticality Noted Date [...] hemoglobin A1c goal of less than 7.0% ([facility]) Use as directed every 14 [...] Uncontrolled type 2 diabetes mellitus with hyperglycemia ([facility]) USE TO TEST BLOOD GLUCOSE [...] current use of insulin ([facility]) Inject 2 mg under the [...] hemoglobin A1c goal of less than 7.0% ([facility]) INJECT UNDER THE SKIN 20 UNITS AT BREAKFAST, 26 UNITS AT LUNCH, 38 UNITS WITH DINNER PLUS CORRECTION PER [facility] OR DIRECTED UP TO 120 UNITS PER DAY 120 mL 3 4 7:52 AM EDT 03/21/20 24 Active DIURETIC TITRATION PLAN If no improvement on day 3, contact [facility] for possible home visit 1 Each [...] 4 7:46 AM EDT 04/18/20 24 Active Tltns-8-chdw Ethyl Esters 1 GM Oral Capsule (Lovaza) [...] BY MOUTH BEFORE BEDTIME 200 Tablet 3 05/17/20 24 025 Active Carvedilol 25 MG Oral Tablet (Coreg)Indications :HTN, goal below 140/90 TAKE ONE TABLET BY MOUTH EVERY MORNING AND TAKE ONE TABLET BY MOUTH BEFORE BEDTIME 200 Tablet 3 4 3:20 PM EDT 04/19/20 23 024 Discontin ued(Refil l) documented as [...] in the Comments) Remote Patient Monitoring Vendor: blueKiwi Device(s): Connected Scale Self - Management Plan [...] Other specified peripheral vascular diseases 4 02/12/2024 Sacroiliitis 09/02/2022 10/20/2023 Type 2 diabetes [...] has been better controlled recently. Monitor using [employer] Cindy. Assessment & Plan (12/19/2022 11:13 AM [...] yrs 01/04/2018,08/03/2017,07/03 Pneumococcal Conjugate Vacci ne, 20-valent ([id number]) 06/09/2022 Pneumococcal Polysaccharide PPV23 (Pneumovax) 03/06/2020 RSV [...] encounter Miscellaneous Notes * Telephone Encounter - Ellis Chang, [facility] - 05/17/2024 11:30 AM ESTSigned Prescriptions: Disp Refills Carvedilol 25 MG Oral Tablet (Coreg) 200 Ta*3 Sig: TAKE ONE TABLET BY MOUTH EVERY MORNING AND TAKE ONE TABLET BY MOUTH BEFORE BEDTIMEAuthorizing Provider: RAQUEL MCCONNELL User: ELLIS CHANG documented in this encounter Plan of Treatment Upcoming Encounters Date Type Department Care Team (Late st Contact Info) Description 05/18/2024 10:00 AM EST Scheduled Telephone [facility], [facility] [address] [facility] [place] [address] Coordinator, [facility] [place] [address] 05/24/2024 8:30 AM EST Home Visit [facility], [facility] [address] [place] [address] Love Stevens, RN 132 [facility] [place] [address] 05/30/2024 1:00 PM EST Telemedicine Cardiology [facility], [place] [address] [place] [address] [place], Pharmacist Cardiology [place] [address] [place] [address] 05/30/2024 2:20 PM EST Office Visit Nephrology [address] [place] [phone] Shivani Magallon MD [address] [place] [address] [place] [address] 05/31/2024 3:30 PM EST Scheduled Telephone [facility], [place] [address] [address] [facility] [place] [address] Mery Calderon, RDN [address] [facility] [place] [address] 06/13/2024 11:15 AM EST Hospital Encounter ENDO [facility], Endoscopy Room [facility] [address] [place] [phone] José Miguel Sifuentes MD [address] [place] [address] 06/13/2024 11:15 AM EST - 06/13/2024 11:45 AM EST Surgery ENDO [facility], Endoscopy Room [facility] [address] [place] [phone] José Miguel Sifuentes MD [address] [place] [address] COLONOSCOPY FLEXIBLE PROXIMAL DIAGNOSTIC 07/01/2024 2:20 PM EST Office Visit Family Practice [address] [place] [address] 293 [facility] [address] Raquel Mcconnell, 293 [facility] [place] [address] 08/08/2024 9:30 AM EST Nurse Only Ancillary [address] [place] [address] [place], Nurse [address] [place] [address] 10/27/2024 1:00 PM EDT Office Visit Sleep Disorders Ctr [facility] 132 [facility] [place] [phone] Lindsey Sheikh CRNP [address] [place] [address] Scheduled Procedures Name Priority Associated Diagnoses Date/Ti [...] this encounter Medical Devices Implanted Type Area House Cleaner Supervisor Device Identifier Shelf Expiration Date Model / Serial / Lot Lens Intraoc 21.0 - [id number] - [id number] Implanted:Qty: 1 on 01/22/2017 by Cheko Mcnamara MD at OR [facility] Right: Eye [employer] 08/05/2021 [id number] / [id number] / [id number] Lens Intraoc 21.5 - [id number] - [id number] Implanted:Qty: 1 on 02/03/2017 by Cheko Mcnamara MD at OR [facility] Left: Eye [employer] 09/02/2021 [id number] / [id number] / [id number] documented as of this encounter Visit Diagnoses [...] Mixed dyslipidemia Mixed hyperlipidemia HTN, goal below 140/90 Unspecified essential hypertension Special screening for malignant [...] were consensually agreed upon. Care Teams Seed Cleaning Manager Relationship Specialty Start Date End Date Raquel Mcconnell DO [address] [facility] [place] [address] PCP - General Internal Medicine 02/12/24 documented as of this encounter
--- OUTSIDE RECORDS SUMMARY | 2024-08-26 02:34 | External Medical Summary | Summary of Care ---
Author Name Unknown Organization [facility] Address [address] [facility] [address] Phone [phone] Care Team Providers Care Coal Handler Name Role Phone Igor Mcconnell DO Primary Care Provider [phone] Reason for Visit * Reason Onset Date Comments [facility]: Maintenance 05/18/2024 Encounter Details Date Type Department Care Team (Late st Contact Info) Description 05/18/2024 10:00 AM EST Scheduled Telephone [facility], [facility] [address] [place] [address] Coordinator, [facility] [address] [place] [address] Allergies Active Allergy Reactions Criticality Noted Date Comments Metolazone Renal complications 11/10/2023 Note prior DTP with metolazone resulted in acute renal failure Other Allergy (See Comments) Rash Low 10/13/2022 1+ cocamidopropyl betaine Sglt2 Inhibitors Other (Please comment) High 09/04/2020 Genital infection Sulfa Antibiotics Rash 10/15/2016 documented as of this encounter (statuses as of 05/18/2024) Medications Aspirin 81 MG Tablet Take 1 [...] type 2 diabetes mellitus with hyperglycemia ([facility]) USE TO TEST BLOOD GLUCOSE 3 TIMES [...] insulin ([facility]) Inject 2 mg under the skin once [...] A1c goal of less than 7.0% ([facility]) INJECT UNDER THE SKIN 20 UNITS AT BREAKFAST, 26 UNITS AT LUNCH, 38 UNITS WITH DINNER PLUS CORRECTION PER [facility] OR DIRECTED UP TO 120 UNITS PER DAY 120 mL 3 4 7:52 AM EDT 03/21/20 24 Active DIURETIC TITRATION PLAN If no improvement on day 3, contact [facility] for possible home visit 1 Each 03/24/20 24 Active Evolocumab 140 MG/ML Subcutaneous Solution Auto-injector (GamadorathReferStarClick)Indicati ons:Dyslipidemia, goal LDL below 100,Mixed dyslipidemia Inject [...] 4 7:46 AM EDT 04/18/20 24 Active Qlyrx-2-tjlk Ethyl Esters 1 GM Oral Capsule (Lovaza) [...] 200 Tablet 3 05/17/20 24 025 Active documented as of this encounter (statuses as of 05/18/2024) Active Problems Patient Care Coordination No te Formatting of this note migh t be different from the original. Heart Failure Self-Management and Exacerbation Plan "RED FLAG" HF Symptoms: Leg Swelling Abdominal Bloating Increased dyspnea on exertion Increased shortness of breath at rest Orthopnea Remote Patient Monitoring Vendor: [facility] [...] as of this encounter (statuses as of 05/18/2024) Resolved Problems Problem Noted Date Diagnosed Date [...] as of this encounter (statuses as of 05/18/2024) Immunizations Name Administration Dates Next Due COVID-19 mRNA, LNP-s, No Pre serve, 2-Dose Series (Moderna) 12/10/2020,11/12/2020 Hepatitis B, 20+ yrs 01/04/2018,08/03/2017,07/03 Pneumococcal Conjugate Vacci ne, 20-valent ([id number]) 06/09/2022 Pneumococcal Polysaccharide PPV23 (Pneumovax) 03/06/2020 RSV [...] Telephone Encounter - Alexandra Mcgraw LPN - 05/18/2024 1:16 PM EST Images from the original note were not included. [facility] Telephonic Nurse Follow-Up Call [facility] Subprogram: Focused Care Management (3-9 months) Follow Up Call Type: 24 hour follow up Acute issue requiring follow-up call: Other: post metolazone yesterday Objective: 05/02/2024 3:00 PM 03/29/2024 2:16 PM 03/16/2024 2:50 PM 03/11/2024 8:19 AM 03/03/2024 3:04 PM VITALS ACROSS ENCOUNTERS BP 122/58 132/58 124/60 122/68 130/54 Pulse 70 72 72 62 67 Weight 124.2 kg 130.6 kg 132.2 kg BMI 37.15 kg/m2 39.06 kg/m2 39.53 kg/m2 Remote Patient Monitoring: Oxygen Needs: NO supplemental oxygen needs identified DME Needs: NO DME needs identified Medications: Current DTP: Add metolazone (Zaroxolyn) 2.5-5mg for 1 days. If using a potassium supplement, doublethe dose of the supplement will be given on the day of and on the day after the metolazone Subjective: Condition Status: Symptoms resolved and back to baseline Current Concerns: Review of [facility] new weight from yesterday 273.2 lbs, no weight transmitted form today Call to pt he reports his weight today was 273.2 lbs. States he doesn't know why it is saying that weight was from yesterday it is from today Pt reports his scale was this morning and he replaced the batteries maybe that is why it has the wrong date Review of [facility] and weight of 273.2 lbs dated 05/17 was actually transmitted today 05/18 Pt will reboot [facility] modem when he gets home Pt reports he feels fine, symptomatic Will continue to monitor Instructed to call [facility] at [phone]# with any new or worsening symptoms Disposition: Issue resolved. All appropriate follow up scheduled. Future Visits Scheduled: Future Appointments-next 60 days Date/Time Provider Specialty Dept Phone 05/24/2024 8:30 AM Love Stevens RN [facility] [phone] 05/30/2024 1:00 PM Gael Zuniga Cardiology [facility] Arrive at: Patient's Home [phone] 05/30/2024 2:20 PM (Arrive by 2:05 PM) Shivani Magallon MD Nephrology [phone] 05/31/2024 3:30 PM Mery Calderon RDN [facility] [phone] 07/01/2024 2:20 PM (Arrive by 2:05 PM) Igor Mcconnell, Family Medicine [phone] 08/08/2024 9:30 AM Nurse [facility] Ancillary [phone] 10/27/2024 1:00 PM (Arrive by 12:45 PM) Lindsey Sheikh CRNP Sleep Disorders [phone] Alexandra Mcgraw LPN documented in this encounter Plan of Treatment Upcoming Encounters Date Type Department Care Team (Late st Contact Info) Description 05/24/2024 8:30 AM EST Home Visit [facility], [facility] 132 [facility] [place] [address] Love Stevens, RN 132 [facility] [place] [address] 05/30/2024 1:00 PM EST Telemedicine Cardiology [facility], [place] [address] [place] [address] [place] [address], Pharmacist Cardiology [facility] [address] [place] [address] 05/30/2024 2:20 PM EST Office Visit Nephrology [address] [place] [phone] Shivani Magallon MD [address] [place] [address] [place] [address] 05/31/2024 3:30 PM EST Scheduled Telephone [facility], [facility] [address] [facility] [place] [address] Mery Calderon RDN [address] [place] [address] 06/13/2024 11:15 AM EST Hospital Encounter ENDO [facility], Endoscopy Room [facility] 132 [facility] [place] [phone] José Miguel Sifuentes MD [address] [place] [address] 06/13/2024 11:15 AM EST - 06/13/2024 11:45 AM EST Surgery ENDO [facility], Endoscopy Room [facility] [address] [place] [phone] José Miguel Sifuentes MD [address] [place] [address] COLONOSCOPY FLEXIBLE PROXIMAL DIAGNOSTIC 07/01/2024 2:20 PM EST Office Visit Family Practice [address] [place] [address] 293 [facility] [place] [address] Igor Mcconnell DO 293 [facility] [place] [address] 08/08/2024 9:30 AM EST Nurse Only Ancillary [address] [place] [address] [place], Nurse [address] [place] [address] 10/27/2024 1:00 PM EDT Office Visit Sleep Disorders Ctr [facility] [address] [place] [phone] Lindsey Sheikh CRNP 132 [facility] [place] [address] Scheduled Procedures Name Priority Associated Diagnoses Date/Ti [...] this encounter Medical Devices Implanted Type Area Trackless Trolley Driver Device Identifier Shelf Expiration Date Model / Serial / Lot Lens Intraoc 21.0 - [id number] - [id number] Implanted:Qty: 1 on 01/22/2017 by Cheko Mcnamara MD at OR [facility] Right: Eye [employer] 08/05/2021 [id number] / [id number] / [id number] Lens Intraoc 21.5 - [id number] - [id number] Implanted:Qty: 1 on 02/03/2017 by Cheko Mcnamara MD at OR [facility] Left: Eye [employer]OM[employer] 09/02/2021 [id number] / [id number] / [id number] documented as of this encounter Advance Directives [...] and were consensually agreed upon. Care Teams Coal Handler Relationship Specialty Start Date End Date Igor Mcconnell DO [address] [place] [place] [address] PCP - General Internal Medicine 02/12/24 documented as of this encounter
--- OUTSIDE RECORDS SUMMARY | 2024-08-26 02:35 | External Medical Summary ---
Author Name Unknown Address Unknown Organization K01:[facility] - [address] [place] [address] Laboratory Report Ordering Provider Test Date Status ANGE GARCÍA 05/13/2024 13:07:57 Final Observation Date Value Abnormality Reference (Units ) Status Bilirubin, Total 05/13/2024 13:07:57 0.7 <=1 .2 (mg/dL) Final Performing Location LAB[facility]ATORY [facility] - [address] [place] [address]
--- OUTSIDE RECORDS SUMMARY | 2024-08-26 02:35 | External Medical Summary ---
Author Name Unknown Address Unknown Organization K01:[facility] - [address] [place] [address] Laboratory Report Ordering Provider Test Date Status ANGE GARCÍA 05/13/2024 13:07:57 Final Observation Date Value Abnormality Reference (Units ) Status Bilirubin, Direct 05/13/2024 13:07:57 0.3 0. 0-0.3 (mg/dL) Final Performing Location LABORATORY [facility] - [address] [place] [address]
--- OUTSIDE RECORDS SUMMARY | 2024-08-26 02:35 | External Medical Summary ---
Author Name Unknown Address Unknown Organization K01:[facility] - [address] [place] [address] Laboratory Report Ordering Provider Test Date Status ADRIA REN 05/13/2024 13:07:57 Final Observation Date Value Abnormality Reference (Units ) Status Ferritin 05/13/2024 13:07:57 63 30-400 (ng /mL) Final Performing Location [facility] - [address] [place] [address]
--- OUTSIDE RECORDS SUMMARY | 2024-08-26 02:35 | External Medical Summary | Summary of Care ---
Author Name Unknown Organization [facility] Address [address] [facility] [address] Phone [phone] Care Team Providers Care Rice Field Worker Name Role Phone Igor Mcconnell DO Primary Care Provider [phone] Reason for Visit * Reason Onset Date Comments [facility]: Maintenance 05/11/2024 Encounter Details Date Type Department Care Team (Late st Contact Info) Description 05/11/2024 Telephone [facility], [facility] [address] [facility] [place] [address] Bárbara Emmanuel, [place] [address] [facility] [place] [address] [facility]: Maintenance Allergies Active Allergy Reactions Criticality Noted Date Comments Metolazone Renal complications 11/10/2023 Note prior DTP with metolazone resulted in acute renal failure Other Allergy (See Comments) Rash Low 10/13/2022 1+ cocamidopropyl betaine Sglt2 Inhibitors Other (Please comment) High 09/04/2020 Genital infection Sulfa Antibiotics Rash 10/15/2016 documented as of this encounter (statuses as of 05/11/2024) Medications Medication Sig Dispensed Refills Start Date End Date Status Aspirin 81 MG Tablet Take 1 Tablet by mouth every evening. Active B Complex Capsule Take 1 Cap by mouth daily. Active CPAP every night at bedtime. Active OneTouch Delica Lancets 33G Use 3 times daily - E11.9 300 Each 3 09/06/2021 Active Additional Information Patient taking differently:, Use 3 times daily - E11.9,Indications: diabetes, Reported on 07/14/2022 FreeStyle Cindy 2 SensorIndications:Ty pe 2 diabetes mellitus with hemoglobin A1c goal of less than 7.0% (HCC) Use as directed every 14 days . 6 Each 3 04/24/2022 Active Metamucil 28.3 % Oral Powder (Psyllium) Take by mouth daily. At least 1 hour after other medications Active Carvedilol 25 MG Oral Tablet (Coreg)Indications:H TN, goal below 140/90 TAKE ONE TABLET BY MOUTH EVERY MORNING AND TAKE ONE TABLET BY MOUTH BEFORE BEDTIME 200 Tablet 3 04/19/2023 4 Active Evolocumab 140 MG/ML Subcutaneous Solution Auto-injector (Repatha SureClick)Indication s:Dyslipidemia, goal LDL below 100,Mixed dyslipidemia Inject 140 mg under the skin every 14 days. 6 mL 3 06/19/2023 Active hydrALAZINE HCl 25 MG Oral Tablet (Apresoline)Indicati ons:HTN, goal below 140/90 Take 1 Tablet by mouth in the morning and 1 Tablet at noon and 1 Tablet before bedtime. 300 Tablet 3 08/12/2023 Active OneTouch Verio In Vitro Strip (Glucose Blood)Indications:Un controlled type 2 diabetes mellitus with hyperglycemia (HCC) USE TO TEST BLOOD GLUCOSE 3 TIMES A DAY. DX: E11.9 300 Strip 3 09/23/2023 Active Ondansetron 4 MG Oral Tablet Disintegrating (Zofran) Place 1 Tablet on tongue every 8 hours as needed for Nausea. 30 Tablet 01/18/2024 Active Tresiba FlexTouch 200 UNIT/ML Subcutaneous Solution Pen-injectorIndicati ons:Type 2 diabetes mellitus with hemoglobin A1c goal of less than 7.0% (HCC) INJECT UNDER THE SKIN 100 UNITS TWICE DAILY OR DIRECTED 90 mL 3 01/18/2024 5 Active Additional Information Patient taking differently: 90 Units Subcutaneous BID(Non-Specified), Reported on 02/12/2024 Torsemide 20 MG Oral Tablet (Demadex)Indications :Chronic heart failure with preserved ejection fraction (HCC),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) Take 4 Tablets by mouth in the morning and 4 Tablets before bedtime. Or take as directed. 240 Tablet 5 01/22/2024 Active Additional Information Patient taking differently:80 mg [...] 8 MG/3ML Subcutaneous Solution Pen-injector (Semaglutide (2 MG/DOSE))Indications :Type 2 diabetes mellitus with stage 4 chronic kidney disease, with long-term current use of insulin ([facility]) Inject 2 mg under the skin once a week. 2 mL 11 02/16/2024 Active Clotrimazole-Betamet hasone 1-0.05 % External Cream (Lotrisone) Apply small amount of cream to scrotal area two times a day 90 g 1 03/02/2024 Active predniSONE 5 MG Oral Tablet (Deltasone) As directed for first part of taper. 20 mg (4 tabs) x 5 days, then 10 mg (2 tabs) x 5 days, then 5 mg (1 tab) x 5 days, then 2 mg (separate prescription) x 5 days then stop. 35 Tablet 03/03/2024 Active predniSONE 1 MG Oral Tablet (Deltasone) As directed for last part of taper >> 20 mg (separate prescription) x 5 days, then 10 mg (separate prescription) x 5 days, then 5 mg (separate prescription) x 5 days, then 2 mg (2 tabs) x 5 days then stop. 10 Tablet 03/03/2024 Active Allopurinol 300 MG Oral Tablet (Zyloprim)Indication s:Gout, arthropathy Take 1 Tablet by mouth in the morning. 100 Tablet 3 03/17/2024 Active NovoLOG FlexPen 100 UNIT/ML Subcutaneous Solution Pen-injectorIndicati ons:Type 2 diabetes mellitus with hemoglobin A1c goal of less than 7.0% ([facility]) INJECT UNDER THE SKIN 20 UNITS AT BREAKFAST, 26 UNITS AT LUNCH, 38 UNITS WITH DINNER PLUS CORRECTION PER [facility] OR DIRECTED UP TO 120 UNITS PER DAY 120 mL 3 03/21/2024 Active DIURETIC TITRATION PLAN If no improvement on day 3, contact [facility] for possible home visit 1 Each 03/24/2024 Active Evolocumab 140 MG/ML Subcutaneous Solution Auto-injector (Repatha SureClick)Indication s:Dyslipidemia, goal LDL below 100,Mixed dyslipidemia Inject 140 mg under the skin every 14 days. 6 mL 3 03/24/2024 Active Potassium Chloride Gaviota ER 20 MEQ Oral Tablet Extended Release Take 1 Tablet by mouth in the morning and 1 Tablet at noon and 1 Tablet before bedtime. 180 Tablet 3 04/14/2024 Active Unifine Pentips 31G X 8 MM (Insulin Pen Needle)Indications:T ype 2 diabetes mellitus with hemoglobin A1c goal of less than 7.0% ([facility]) USE TO INJECT INSULINS 5 TIMES DAILY 500 Each 3 04/18/2024 Active Cidcq-3-nvuv Ethyl Esters 1 GM Oral Capsule (Lovaza) Take 2 Capsules by mouth in the morning and 2 Capsules before bedtime. 360 Capsule 1 04/18/2024 Active metOLazone 2.5 MG Oral Tablet (Zaroxolyn)Indicatio ns: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) Take 1 tablet by mouth as needed for > 3 lb weight gain in 1 day, or > 5 lb weight gain in 1 week. 100 Tablet 5 04/18/2024 Active Omeprazole 20 MG Oral Capsule Delayed Release (PriLOSEC) TAKE 1 CAPSULE BY MOUTH IN THE MORNING AND 1 CAPSULE BEFORE BEDTIME 30 MINUTES BEFORE A MEAL 180 Capsule 1 05/02/2024 5 Active documented as of this encounter (statuses as of 05/11/2024) Active Problems Patient Care Coordination No te [...] in the Comments) Remote Patient Monitoring Vendor: [employer] Device(s): Connected Scale Self - Management Plan Double dose of Torsemide for 3 days Exacerbation Plan BMP Chest X-Ray Additional Comments: Recommended using double torsemide for 3 days in a row, rather than 1 day like he has been doing Continue using [facility] scale Low sodium diet Type 2 diabetes mellitus with peripheral vascula [...] as of this encounter (statuses as of 05/11/2024) Resolved Problems Problem Noted Date Diagnosed Date Resolved Date 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 (Household - for ages [...] Miscellaneous Notes * Telephone Encounter - Bárbara Emmanuel LPN - 05/11/2024 8:28 AM EST Images from the original note were not included. [facility] Remote Patient Monitoring Unable to contact patient: Trigger type: Abnormal reading(s): Device(s) Triggered: AMC (Advanced Monitored Caregiving): Scale: Trigger priority per AMC: 278.3 documented in this encounter Plan of Treatment Upcoming Encounters Date Type Department Care Team (Late st Contact Info) Description 05/11/2024 9:20 AM EST Telemedicine Pharmacy, [address] [place] [address] [place] [address] 05/24/2024 8:30 AM EST Home Visit [facility], [facility] [address] [place] [address] Love Stevens RN [address] [place] [address] 05/30/2024 1:00 PM EST Telemedicine Cardiology [facility], [place] [address] [place] [address] [place] [address], Pharmacist Cardiology [facility] [address] [place] [address] 05/30/2024 2:20 PM EST Office Visit Nephrology [address] [place] [address] Shivani Magallon MD [address] [place] [address] 05/31/2024 3:30 PM EST Scheduled Telephone [facility], [facility] [address] [facility] [place] [address] Mery Calderon RDN [address] [facility] [place] [address] 06/13/2024 11:15 AM EST Hospital Encounter ENDO [facility], Endoscopy Room [facility] [address] [place] [phone] José Miguel Sifuentes MD [address] [place] [address] 06/13/2024 11:15 AM EST - 06/13/2024 11:45 AM EST Surgery ENDO [facility], Endoscopy Room [facility] [address] [place] [address] Jos éMiguel Sifuentes MD [address] [facility] [place] [address] COLONOSCOPY FLEXIBLE PROXIMAL DIAGNOSTIC 07/01/2024 2:20 PM EST Office Visit Family Practice [address] [place] [address], [place] 293 [place] [address] Igor Mcconnell, [address] [place] [address] 08/08/2024 9:30 AM EST Nurse Only Ancillary [address] [place] [address] [place], Nurse [address] [place] [address] 10/27/2024 1:00 PM EDT Office Visit Sleep Disorders Ctr [facility] [address] [facility] [place] [phone] Lindsey Sheikh CRNP [address] [facility] [place] [address] Scheduled Procedures Name Priority Associated Diagnoses Date/Ti me COLONOSCOPY FLEXIBLE PROXIMAL DIAGNOSTIC Recall Special screening for malignant neoplasms, colon 06/13/2024 11:15 AM EST Health Maintenance Due Date Last Done Comments Alpha-1 Antitrypsin 1977 Cologuard 02/09/2004 Fecal Occult Blood Test 02/09/2004 Sigmoidoscopy 02/09/2004 Colonoscopy 01/01/2023 01/01/2018, 01/01/2018 Colorectal Cancer Screening 01/01/2023 PTH 03/05/2023 03/05/2022, 09/12/2020 COVID-19 Vaccine ( season) 2024 12/10/2020, 11/12/2020 Albumin/Creatinine Ratio 06/11/2024 023, 09/22/2022, 09/02/2022, Additional history exists Depression Screening 08/05/2024 08/05/2023 HbA1c 08/14/2024 02/12/2024, 10/04, 06/11/2023, Additional history exists GFR 10/12/2024 04/13/2024, 03/07, 03/11/2024, Additional history exists Diabetic Foot Exam 10/19/2024 10/20/2023, 0 09/02/2022, 08/16/2021, Additional history exists Phosphate 10/25/2024 10/26/2023, 10/04, 06/11/2023, Additional history exists Nephrology Referral 03/03/2025 03/03/2024 Hgb 03/11/2025 03/11/2024, 02/04, 02/12/2024, Additional history exists Diabetic Eye Exam 04/11/2025 04/11/2024, , 03/23/2024, Additional history exists O2 ASSESSMENT COMPLETED IN PAST YEAR FOR COPD 05/02/2025 05/02/2024 Arreola's Esophagus Surveilance 06/16/2025 06/16/2022, 06/16/2022, 03/20/2022, [...] this encounter Medical Devices Implanted Type Area Block Greaser Device Identifier Shelf Expiration Date Model / Serial / Lot Lens Intraoc 21.0 - [id number] - [id number] Implanted:Qty: 1 on 01/22/2017 by Cheko Mcnamara MD at OR [facility] Right: Eye [employer]OM[employer] 08/05/2021 [id number] / [id number] / [id number] Lens Intraoc 21.5 - [id number] - [id number] Implanted:Qty: 1 on 02/03/2017 by Cheko Mcnamara MD at OR [facility] Left: Eye [employer]USCH [employer] LOMB 09/02/2021 [id number] / [id number] / [id number] documented as of this encounter Advance Directives [...] and were consensually agreed upon. Care Teams Rice Field Worker Relationship Specialty Start Date End Date Igor Mcconnell DO [address] [place] [address] PCP - General Internal Medicine 02/12/24 documented as of this encounter
--- OUTSIDE RECORDS SUMMARY | 2024-08-26 02:35 | External Medical Summary ---
Author Name Unknown Address Unknown Organization K01:[facility] - [address] [place] [address] Laboratory Report Ordering Provider Test Date Status ANGE GARCÍA 05/13/2024 13:07:57 Final Observation Date Value Abnormality Reference (Units ) Status Protein 05/13/2024 13:07:57 8.3 6.0-8.3 (g /dL) Final Performing Location [facility] - [address] [place] [address]
--- OUTSIDE RECORDS SUMMARY | 2024-08-26 02:35 | External Medical Summary ---
Author Name Unknown Address Unknown Organization [id number][facility] [place] [address] [place] [address] Laboratory Report Ordering Provider Test Date Status ADRIA REN 05/13/2024 13:07:57 Final Deficient: <20 ng/mL
Ins ufficient: 20-29 ng/mL
Recommended/Optimum:30-50 ng/mL

Vitamin D intoxication is rare. If suspicious of Vitamin D toxicity, evaluation of serum Calcium and PTH is recommended. Observation Date Value Abnormality Reference (Units ) Status 25-OH Vitamin D total 05/13/2024 13:07:57 69 >19 (ng/mL) Final Performing Location [facility] - [address] [place] [address]
--- OUTSIDE RECORDS SUMMARY | 2024-08-26 02:35 | External Medical Summary | Summary of Care ---
Author Name Unknown Organization [facility] Address [address] [facility] [place] [address] Phone [phone] Care Team Providers Care Singing Telegram Performer Name Role Phone Igor Mcconnell DO Primary Care Provider [phone] Reason for Visit * Reason Onset Date Comments [facility]: Maintenance 05/06/2024 Encounter Details Date Type Department Care Team (Late st Contact Info) Description 05/06/2024 1:15 PM EDT Scheduled Telephone [facility], [facility] [address] [facility] [place] [address] Coordinator, [facility] [address] [facility] [place] [address] Allergies Active Allergy Reactions Criticality Noted Date Comments Metolazone Renal complications 11/10/2023 Note prior DTP with metolazone resulted in acute renal failure Other Allergy (See Comments) Rash Low 10/13/2022 1+ cocamidopropyl betaine Sglt2 Inhibitors Other (Please comment) High 09/04/2020 Genital infection Sulfa Antibiotics Rash 10/15/2016 documented as of this encounter (statuses as of 05/06/2024) Medications Medication Sig Dispensed Refills Start Date [...] disease, with long-term current use of insulin ([facility]) Inject 2 mg under the [...] less than 7.0% ([facility]) INJECT UNDER THE SKIN 20 UNITS AT BREAKFAST, 26 UNITS AT LUNCH, 38 UNITS WITH DINNER PLUS CORRECTION PER [facility] OR DIRECTED UP TO 120 UNITS PER DAY 120 mL 3 03/21/2024 Active DIURETIC TITRATION PLAN If no improvement on day 3, contact [facility] for possible home visit 1 Each 03/24/2024 [...] less than 7.0% ([facility]) USE TO INJECT INSULINS 5 TIMES DAILY 500 Each 3 04/18/2024 Active Bhkvd-5-sckm Ethyl Esters 1 GM Oral Capsule (Lovaza) [...] as of this encounter (statuses as of 05/06/2024) Active Problems Patient Care Coordination No te Formatting of this note migh t be different from the original. Heart Failure Self-Management and Exacerbation Plan "RED FLAG" HF Symptoms: Leg Swelling Abdominal Bloating Increased dyspnea on exertion Increased shortness of breath at rest Orthopnea Remote Patient Monitoring Vendor: [facility] Device(s): Connected Scale Self - Management Plan [...] in the Comments) Remote Patient Monitoring Vendor: [employer] Device(s): Connected Scale Self - Management Plan [...] as of this encounter (statuses as of 05/06/2024) Resolved Problems Problem Noted Date Diagnosed Date [...] with serious comorbidity 07/11/2019 BMI 40.0-44.9, adult 04/18/201902/11/ 024 Overview: Per Obesity protocol - ICD-10 update of inactive diagnosis Severe obesity with body mas s index (BMI) of 35.0 to 39.9 with serious comorbidity 08/18/2017 Overview: Per Obesity protocol - ICD-10 update of inactive diagnosis Mild single current episode of major depressive disorder 12/31/2016 08/18/2017 HTN, goal below 140/90 12/31/2016 11/20 /2022 Cataract of both eyes 12/31/20162017 documented as of this encounter (statuses as of 05/06/2024) Immunizations Name Administration Dates Next Due COVID-19 mRNA, LNP-s, No Pre serve, 2-Dose Series (Moderna) 12/10/2020,11/12/2020 Hepatitis B, 20+ yrs 01/04/2018,08/03/2017,07/03 Pneumococcal Conjugate Vacci ne, 20-valent ([id number]) 06/09/2022 Pneumococcal Polysaccharide PPV23 (Pneumovax) 03/06/2020 RSV [...] No 05/02/2024 Does the household have a [facility] source of income? (Household - for ages [...] Telephone Encounter - Bárbara Emmanuel LPN - 05/06/2024 1:07 PM EDT Images from the original note were not included. [facility] Telephonic Nurse Follow-Up Call [facility] Subprogram: Focused Care Management (3-9 [...] 39.06 kg/m2 39.53 kg/m2 Remote Patient Monitoring: [facility] Scale: patient will weigh in shortly Oxygen Needs: NO supplemental oxygen needs identified DME Needs: NO DME needs identified Medications: No medication or dose adjustments made during acute episode Subjective: Condition Status: Symptoms resolved and back to baseline Current Concerns: Spoke with Tony feeling much better than yesterday denies SOB at this time . Tony was resting but will take [facility] weight and BP shortly after lunch . Tony will call [facility] with questions and concerns . Aware I will be watching to see if readings are transmitted Disposition: Routed to [facility] and/or [facility] Care Team for further advice Future Visits Scheduled: Future Appointments-next 60 days Date/Time Provider Specialty Dept Phone 05/11/2024 9:20 AM [facility] Arrive at: Patient's Home [phone] 05/24/2024 8:30 AM Love Stevens RN [facility] [phone] 05/30/2024 1:00 PM [place] Pharmacist Cardiology [facility] Arrive at: Patient's Home [phone] 05/30/2024 2:20 PM (Arrive by 2:05 PM) Shivani Magallon MD Nephrology [phone] 05/31/2024 3:30 PM Mery Calderon RDN [facility] [phone] 07/01/2024 2:20 PM (Arrive by 2:05 PM) Igor Mcconnell DO Family Medicine [phone] 08/08/2024 9:30 AM [place] Nurse Annual Wellness Ancillary [phone] 10/27/2024 1:00 PM (Arrive by 12:45 PM) Lindsey Sheikh CRNP Sleep Disorders [phone] Bárbara Emmanuel LPN documented in this encounter Plan of Treatment Upcoming Encounters Date Type Department Care Team (Late st Contact Info) Description 05/11/2024 9:20 AM EST Telemedicine Pharmacy, [address] [place] [address] [place] [address] 05/24/2024 8:30 AM EST Home Visit [facility], [facility] [address] [place] [address] Love Stevens, ANNE MARIE [address] [place] [address] 05/30/2024 1:00 PM EST Telemedicine Cardiology [facility], [place] [address] [place] [address] [place] [address], Pharmacist Cardiology [place] [address] [place] [address] 05/30/2024 2:20 PM EST Office Visit Nephrology [address] [place] [address] Shivani Magallon MD [address] [place] [address], [place] [address] 05/31/2024 3:30 PM EST Scheduled Telephone [facility], [facility] [address] [facility] [place] [address] Mery Calderon RDN [address] [facility] [place] [address] 06/13/2024 11:15 AM EST Hospital Encounter ENDO [facility], Endoscopy Room [facility] [address] [place] [phone] José Miguel Sifuentes MD [address] [place] [address] 06/13/2024 11:15 AM EST - 06/13/2024 11:45 AM EST Surgery ENDO [facility], Endoscopy Room [facility] 132 [facility] [place] [phone] José Miguel Sifuentes MD [address] [place] [address] COLONOSCOPY FLEXIBLE PROXIMAL DIAGNOSTIC 07/01/2024 2:20 PM EST Office Visit Family Practice [address] [place] [address] 293 [facility] [place] [address] Igor Mcconnell, 293 [place] [address] 08/08/2024 9:30 AM EST Nurse Only Ancillary [address] [place] [address] [place], Nurse [address] [place] [address] 10/27/2024 1:00 PM EDT Office Visit Sleep Disorders Ctr [facility] [address] [facility] [place] [phone] Lindsey Sheikh CRNP 132 [facility] [place] [address] Scheduled Procedures Name Priority Associated Diagnoses Date/Ti [...] this encounter Medical Devices Implanted Type Area Agricultural Research Technician Device Identifier Shelf Expiration Date Model / Serial / Lot Lens Intraoc 21.0 - [id number] - [id number] Implanted:Qty: 1 on 01/22/2017 by Cheko Mcnamara MD at OR [facility] Right: Eye [employer] 08/05/2021 [id number] / [id number] / [id number] Lens Intraoc 21.5 - [id number] - [id number] Implanted:Qty: 1 on 02/03/2017 by Cheko Mcnamara MD at OR [facility] Left: Eye BAUSCH [employer] LOMB 09/02/2021 [id number] / [id number] / [id number] documented as of this encounter Advance Directives [...] were consensually agreed upon. Care Teams Singing Telegram Performer Relationship Specialty Start Date End Date Igor Mcconnell DO [address] [place] [address] PCP - General Internal Medicine 02/12/24 documented as of this encounter
--- OUTSIDE RECORDS SUMMARY | 2024-08-26 02:35 | External Medical Summary ---
Author Name Unknown Address Unknown Organization K01:[facility] [place] [address] [place] [address] Laboratory Report Ordering Provider Test Date Status ANGE GARCÍA 05/13/2024 13:07:57 Final Observation Date Value Abnormality Reference (Units ) Status AST (Aspartate aminotransferase) 05/13/2024 13:07:57 60 Above high normal 10-50 (U/L) Final Performing Location [facility] [place] [address] [place] [address]
--- OUTSIDE RECORDS SUMMARY | 2024-08-26 02:35 | External Medical Summary ---
Author Name Unknown Address Unknown Organization K01:[facility] - [address] [place] [address] Laboratory Report Ordering Provider Test Date Status ANGE GARCÍA 05/13/2024 13:07:57 Final Observation Date Value Abnormality Reference (Units ) Status Alk Phos 05/13/2024 13:07:57 128 35-130 (U/ L) Final Performing Location [facility] - [address] [place] [address]
--- OUTSIDE RECORDS SUMMARY | 2024-08-26 02:35 | External Medical Summary | Summary of Care ---
Author Name Unknown Organization [facility] Address [address] [facility] [place] [address] Phone [phone] Care Team Providers Care Milling Machine Set Up Operator Name Role Phone Igor Mcconnell DO Primary Care Provider [phone] Reason for Visit * Reason Comments Outpatient Testing Encounter Details Date Type Department Care Team (Late st Contact Info) Description 05/13/2024 1:20 PM EST Laboratory Laboratory [address] [place] [phone] [place] [address] Mixed dyslipidemia; Abnormal liver enzymes; 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); Vitamin D deficiency Allergies Active Allergy Reactions Criticality Noted Date Comments Metolazone Renal complications 11/10/2023 Note prior DTP with metolazone resulted in acute renal failure Other Allergy (See Comments) Rash Low 10/13/2022 1+ cocamidopropyl betaine Sglt2 Inhibitors Other (Please comment) High 09/04/2020 Genital infection Sulfa Antibiotics Rash 10/15/2016 documented as of this encounter (statuses as of 05/13/2024) Medications Aspirin 81 MG Tablet Take 1 [...] Evolocumab 140 MG/ML Subcutaneous Solution Auto-injector (Repatha Car[employer])Indicati ons:Dyslipidemia, goal LDL below 100,Mixed dyslipidemia Inject [...] DINNER PLUS CORRECTION PER [facility] OR DIRECTED UP TO 120 UNITS PER DAY 120 mL 3 4 7:52 AM EDT 03/21/20 24 Active DIURETIC TITRATION PLAN If no improvement on day 3, contact [facility] for possible home visit 1 [...] 4 7:46 AM EDT 04/18/20 24 Active Fnndd-6-wcwu Ethyl Esters 1 GM Oral Capsule (Lovaza) [...] as of this encounter (statuses as of 05/13/2024) Active Problems Patient Care Coordination No te Formatting of this note migh t be different from the original. Heart Failure Self-Management and Exacerbation Plan "RED FLAG" HF Symptoms: Leg Swelling Abdominal Bloating Increased dyspnea on exertion Increased shortness of breath at rest Orthopnea Remote Patient Monitoring Vendor: [facility]s): Connected Scale Self [...] in the Comments) Remote Patient Monitoring Vendor: [facility] Device(s): Connected Scale Self [...] as of this encounter (statuses as of 05/13/2024) Resolved Problems Problem Noted Date Diagnosed Date [...] has been better controlled recently. Monitor using [employer] Cindy. Assessment & Plan (12/19/2022 11:13 AM [...] as of this encounter (statuses as of 05/13/2024) Immunizations Name Administration Dates Next Due COVID-19 mRNA, LNP-s, No Pre serve, 2-Dose Series (Moderna) 12/10/2020,11/12/2020 Hepatitis B, 20+ yrs 01/04/2018,08/03/2017,07/03 Pneumococcal Conjugate Vacci ne, 20-valent ([id number]) 06/09/2022 Pneumococcal Polysaccharide PPV23 (Pneumovax) 03/06/2020 RSV [...] Description 05/24/2024 8:30 AM EST Home Visit [facility]inger at [facility] [address] [place] [address] Love Stevens RN [address] [place] [address] 05/30/2024 1:00 PM EST Telemedicine Cardiology [facility] [place] [address] [place] [address] [facility], Pharmacist Cardiology [facility] [address] [place] [facility] [address] 05/30/2024 2:20 PM EST Office Visit Nephrology [address] [place] [address] Shivani Magallon MD [address] [place] [address] 05/31/2024 3:30 PM EST Scheduled Telephone [facility], [facility] [address] [facility] [place] [address] Mery Calderon RDN [address] [facility] [address] 06/13/2024 11:15 AM EST Hospital Encounter ENDO OSS[facility], Endoscopy Room [facility] 132 [facility] [place] [phone] José Miguel Sifuentes MD 132 [facility] [place] [address] 06/13/2024 11:15 AM EST - 06/13/2024 11:45 AM EST Surgery ENDO [facility], Endoscopy Room [facility] [place] [phone] José Miguel Sifuentes MD [address] [facility] [place] [address] COLONOSCOPY FLEXIBLE PROXIMAL DIAGNOSTIC 07/01/2024 2:20 PM EST Office Visit Family Practice [address] [place] [address] [address] [place] [address] Igor Mcconnell, 293 [facility] [place] [address] 08/08/2024 9:30 AM EST Nurse Only Ancillary Lazaro Hyde[address] [place] [address] [place], Nurse [address] [place] [address] 10/27/2024 1:00 PM EDT Office Visit [facility] Disorders Ctr [facility] [address] [place] [phone] Lindsey Sheikh CRNP [address] [place] [address] Pending Results Name Type Priority Associated Diagnoses Date /Time LIPID PANEL WITH DIRECT LDL IF TG IS HIGH Lab Routine Mixed dyslipidemia 05/13/2024 1:07 PM EST 25-HYDROXY VITAMIN D Lab STAT 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) Vitamin D deficiency 05/13/2024 1:07 PM EST ALBUMIN / CREATININE RATIO, URINE Lab STAT 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) 05/13/2024 1:07 PM EST HGB Lab STAT 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) 05/13/2024 1:07 PM EST FERRITIN Lab STAT 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) 05/13/2024 1:07 PM EST IRON SCREEN, INCLUDING TIBC Lab STAT 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) 05/13/2024 1:07 PM EST PTH Lab STAT 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) 05/13/2024 1:07 PM EST RENAL FUNCTION PANEL Lab STAT 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) 05/13/2024 1:07 PM EST ALKALINE PHOSPHATASE Lab Routine Abnormal liver enzymes 05/13/2024 1:07 PM EST PROTEIN Lab Routine Abnormal liver enzymes 05/13/2024 1:07 PM EST AST Lab Routine Abnormal liver enzymes 05/13/2024 1:07 PM EST ALT Lab Routine Abnormal liver enzymes 05/13/2024 1:07 PM EST BILIRUBIN, DIRECT Lab Routine Abnormal liver enzymes 05/13/2024 1:07 PM EST BILIRUBIN, TOTAL Lab Routine Abnormal liver enzymes 05/13/2024 1:07 PM EST Scheduled Procedures Name Priority Associated [...] encounter Medical Devices Implanted Type Area Regional Director Device Identifier Shelf Expiration Date Model / Serial / Lot Lens Intraoc 21.0 - [id number] - [id number] Implanted:Qty: 1 on 01/22/2017 by Cheko Mcnamara MD at OR [facility] Right: Eye [employer]OMB 08/05/2021 [id number] / [id number] / [id number] Lens Intraoc 21.5 - [id number] - [id number] Implanted:Qty: 1 on 02/03/2017 by Cheko Mcnamara MD at OR [facility] Left: Eye BAUSCH [employer] LOMB 09/02/2021 [id number] / [id number] / [id number] documented as of this encounter Visit Diagnoses [...] CT scan Mixed dyslipidemia Mixed hyperlipidemia Mixed dyslipidemia Mixed hyperlipidemia Abnormal liver enzymes Other nonspecific abnormal serum enzyme levels 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) Vitamin D deficiency Unspecified vitamin D deficiency Special screening for malignant neoplasms, colon documented [...] and were consensually agreed upon. Care Teams Milling Machine Set Up Operator Relationship Specialty Start Date End Date Igor Mcconnell DO [address] [place] [address] PCP - General Internal Medicine 02/12/24 documented as of this encounter
--- OUTSIDE RECORDS SUMMARY | 2024-08-26 02:35 | External Medical Summary ---
Author Name Unknown Address Unknown Organization [id number]:[facility] - [address] [facility] [place] [address] Laboratory Report Ordering Provider Test Date Status CASANDRA CHAPMAN 05/13/2024 13:07:57 Final Observation Date Value Abnormality Reference (Units ) Status Triglyceride 05/13/2024 13:07:57 216 Above high normal <=174 (mg/dL) Final Triglyceride Reference Range s (mg/dL):
<150 Acceptable
150-174 Borderline high
175-499 High
>=500 Very high Cholesterol 05/13/2024 13:07:57 196 <200 (mg /dL) Final Total Cholesterol Reference Ranges (mg/dL):
<200 Desirable
200-239 Borderline high
>=240 High HDL 05/13/2024 13:07:57 27 Below low normal >39 (mg/dL) Final HDL Cholesterol Reference Ra nges (mg/dL):
>=60 High (Desirable)
<50 Low (Undesirable) For Females
<40 Low (Undesirable) For Males NON-HDL CHOLESTEROL 05/13/2024 13:07:57 169 Above high normal <=159 (mg/dL) Final Non-HDL Cholesterol Referenc e Range (mg/dL):
<100 Target level for high risk ASCVD patient
<130 Optimal for general population
130-159 Near optimal for general population
160-189 Borderline High
190-219 High
>=220 Very High LDL, (calculated) 05/13/2024 13:07:57 126 <= 129 (mg/dL) Final LDL Cholesterol Reference Ra nges (mg/dL):
<70 Target level for high risk ASCVD patient
<100 Optimal for general population
100-129 Near optimal for general population
130-159 Borderline high
160-189 High
>=190 Very high Performing Location [facility] - [address] [facility] [address]
--- OUTSIDE RECORDS SUMMARY | 2024-08-26 02:35 | External Medical Summary ---
Author Name Unknown Address Unknown Organization K01:[facility] - [address] [place] [address] Laboratory Report Ordering Provider Test Date Status ADRIA REN 05/13/2024 13:07:57 Final Observation Date Value Abnormality Reference (Units ) Status Iron 05/13/2024 13:07:57 35 Below low normal 45-176 (ug/dL) Final Iron-binding capacity 05/13/2024 13:07:57 388 250-425 (ug/dL) Final Transferrin Sat % 05/13/2024 13:07:57 9 Below low normal 15-55 (%) Final Performing Location [facility] - [address] [place] [address]
--- OUTSIDE RECORDS SUMMARY | 2024-08-26 02:35 | External Medical Summary | Summary of Care ---
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) Shivani Magallon MD [address] [place] [facility] [place] [address] Referral ID Status Reason Start Date Expiration Date Visits Requested Visits Authorized [id number] Authorized Specialty Services Required 03/24/2024 09/20/2024 99 99 Encounter Details Date Type Department Care Team (Late st Contact Info) Description 05/11/2024 9:20 AM [facility] Telemedicine Pharmacy, [address] [place] [address] [place] [address] Hypertensive heart and kidney disease with chronic [...] DAILY OR DIRECTED 90 mL 3 01/18/2024 Active Additional Information Patient taking differently: 90 [...] 38 UNITS WITH DINNER PLUS CORRECTION PER [facility] OR DIRECTED UP TO 120 UNITS PER DAY 120 mL 3 03/21/2024 Active DIURETIC TITRATION PLAN If no improvement on day 3, contact [facility] for possible home visit 1 Each [...] TIMES DAILY 500 Each 3 04/18/2024 Active Yyihm-5-reid Ethyl Esters 1 GM Oral Capsule (Lovaza) [...] 08/18/2017 Last Assessment & Plan: Continues on [employer] 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 [employer] History of tobacco use 08/18/2017 [place] on [...] yrs 01/04/2018,08/03/2017,07/03 Pneumococcal Conjugate Vacci ne, 20-valent ([id number]) 06/09/2022 Pneumococcal Polysaccharide PPV23 (Pneumovax) 03/06/2020 RSV [...] of this encounter Progress Notes * Clary Gregg, [facility] - 05/11/2024 9:17 AM EST Patient location: HOME. I was in a hospital or clinic location. After connecting through televideo,patient was verified with two unique identifiers. Patient (or authorized legal order entry representative) was then informed that this was a Telemedicine visit and being conducted confidentially over secure lines. Methods to assure confidentiality were taken. Patient acknowledged consent and understanding of pr ivacy and security of the Telemedicine visit. The patient agreed to participate. Able to connect via video, however patient soon started to have technical difficulties. Remainder of visit completed telephonically. Patient Phone Numbers PHARMACY CHRONIC DISEASE MANAGEMENT - HYPERTENSION HPI: Tony Delong is a 64 year old year old male. Referred for HTN management by Shivani Magallon MD . Blood pressure goal: 130/80 Does patient monitor BP at home? yes Home BP log results: Systolic Diastolic Pulse Systolic Diastolic 130 68 Average 128 67 120 60 127 61 High 94 94 137 71 Low 59 59 130 63 136 71 Range 35 35 121 59 Count 11 11 118 60 126 69 129 66 131 94 Does patient monitor HR at home? yes Home HR log results: Diet review: Discussed below Exercise review: Discussed below Patient Active Problem List Diagnosis Type 2 [...] Comments) Rash 1+ cocamidopropyl betaine Objective: BP Readings from Last 3 Encounters: 05/02/24 122/58 03/29/24 132/58 03/16/24 124/60 Pulse Readings from Last 3 Encounters: 05/02/24 70 03/29/24 72 03/16/24 72 Wt Readings from Last 3 Encounters: 03/16/24 124.2 kg (273 lb 14.4 oz) 03/11/24 130.6 kg (288 lb) 03/03/24 132.2 kg (291 lb 8 oz) Lab Results Component Value Date/Time MICROALBUMIN RATIO-OUTSIDE LAB 1,457 (H) 01/09/2020 12:00 AM MICROALBUMIN RATIO-OUTSIDE LAB 21.1 12/11/2016 12:00 AM Current Hypertension Medication(s): Carvedilol 25mg BID Torsemide 20mg - Take 4 tablets BID Hydralazine 25mg TID Metolazone 2.5mg Take 1 tablet by mouth as needed for > 3 lb weight gain in 1 day, or > 5 lb weight gain in 1 week. Potassium 20MEQ daily TID Assessment & Plan: Patient currently enrolled in [facility] remote monitoring program. Connected today for general HTN review. Reviewed remote BP log, overall remaining at goal. Denies any s/sx of hypotension. Reviewed and confirmed medication list as well as adherence. Denies any issues. Reviewed low sodium diet with patient and the importance of this with current disease states. Patient does note this is something he works on, but can do better at times. Reviewed lab work ordered to obtain prior to nephro OV on 05/30. Patient plans to do so. Overall BP remaining at goal. Compliant with current medications. Enrolled in [facility] program and continuing to monitor BP regularly. Agreeable to continue to follow up upon [facility] alerts. Provided MTM number to contact clinic with any questions or concerns. Medication Changes: Carvedilol 25mg BID Torsemide 20mg - Take 4 tablets BID Hydralazine 25mg TID Metolazone 2.5mg Take 1 tablet by mouth as needed for > 3 lb weight gain in 1 day, or > 5 lb weight gain in 1 week. Potassium 20MEQ daily TID Labs Due: Planning to obtain Follow up: Upon [facility] alerts I spent a total of 30-39 minutes (exact time 30 mins) on the date of service in preparation, delivery, and documentation of the care provided to Tony Delong excluding any time spent in the performance of separately billed services or time spent by another provider/QHP. Clary Gregg [facility] Clinical Pharmacist 9:19 AM, 05/11/24 documented in this encounter Plan of Treatment Upcoming Encounters Date Type Department Care Team (Late st Contact Info) Description 05/24/2024 8:30 AM EST Home Visit [facility], [facility] [address] [place] [address] Love Stevens RN [address] [place] [address] 05/30/2024 1:00 PM EST Telemedicine Cardiology [facility] [place] [address] [place] [address] [place] [address], Pharmacist Cardiology [facility] [address] [place] [address] 05/30/2024 2:20 PM EST Office Visit Nephrology [address] [place] [address] Shivani Magallon MD [address] [place] [address], [place] [address] 05/31/2024 3:30 PM EST Scheduled Telephone [facility], [facility] [address] [facility] [place] [address] Mery Calderon RDN [address] [facility] [place] [address] 06/13/2024 11:15 AM EST Hospital Encounter ENDO [facility], Endoscopy Room [facility] [address] [place] [phone] José Miguel Sifuentes MD [address] [place] [address] 06/13/2024 11:15 AM EST - 06/13/2024 11:45 AM EST Surgery ENDO [facility] [place] [phone] José Miguel Sifuentes MD 132 [facility] [place] [address] COLONOSCOPY FLEXIBLE PROXIMAL DIAGNOSTIC 07/01/2024 2:20 PM EST Office Visit Family Practice [address] [place] [address] [address] [place] [address] Igor Mcconnell, 293 [facility] [address] 08/08/2024 9:30 AM EST Nurse Only Ancillary [address] [place] [address] [place], Nurse [address] [place] [address] 10/27/2024 1:00 PM EDT Office Visit [facility] Disorders Ctr [facility] 132 [facility] [place] [phone] Lindsey Sheikh CRNP 132 [facility] [place] [address] Scheduled Procedures Name Priority Associated Diagnoses Date/Ti me COLONOSCOPY FLEXIBLE PROXIMAL DIAGNOSTIC Recall Special screening for malignant neoplasms, colon 06/13/2024 11:15 AM EST Scheduled Referrals Name Type Priority Associated Diagnoses Orde r Schedule PHARMACIST MEDS THERAPY MGMT REFERRAL OP Referral Within 10 days (routine) 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) Ordered: 03/24/2024 Health Maintenance Due Date Last Done Comments [...] this encounter Medical Devices Implanted Type Area Construction Technician Device Identifier Shelf Expiration Date Model / Serial / Lot Lens Intraoc 21.0 - [id number] - [id number] Implanted:Qty: 1 on 01/22/2017 by Cheko Mcnamara MD at OR [facility] Right: Eye [employer]OMB 08/05/2021 [id number] / [id number] / [id number] Lens Intraoc 21.5 - [id number] - [id number] Implanted:Qty: 1 on 02/03/2017 by Cheko Mcnamara MD at OR [facility] Left: Eye BAUSCH & LOMB 09/02/2021 [id number] / [id number] / [id number] documented as of this encounter Visit Diagnoses [...] consensually agreed upon. Care Teams Security Incident Handler Relationship Specialty Start Date End Date Igor Mcconnell DO [address] [place] [address] PCP - General Internal Medicine 02/12/24 documented as of this encounter
--- OUTSIDE RECORDS SUMMARY | 2024-08-26 02:35 | External Medical Summary | Summary of Care ---
Author Name Unknown Organization [facility] Address [address] [facility] [address] Phone [phone] Care Team Providers Care Plant Accountant Name Role Phone Igor Mcconnell DO Primary Care Provider [phone] Reason for Visit * Reason Onset Date Comments [facility]: Maintenance 05/10/2024 Encounter Details Date Type Department Care Team (Late st Contact Info) Description 05/10/2024 Telephone [facility], [facility] 132 [facility] [place] [address] Leanne Le, RODEO RIDER 2407 Counts Include 234 [place] [address] [facility]: Maintenance Allergies Active Allergy Reactions Criticality Noted Date Comments Metolazone Renal complications 11/10/2023 Note prior DTP with metolazone resulted in acute renal failure Other Allergy (See Comments) Rash Low 10/13/2022 1+ cocamidopropyl betaine Sglt2 Inhibitors Other (Please comment) High 09/04/2020 Genital infection Sulfa Antibiotics Rash 10/15/2016 documented as of this encounter (statuses as of 05/10/2024) Medications Medication Sig Dispensed Refills Start Date [...] controlled type 2 diabetes mellitus with hyperglycemia ([facility]) USE TO TEST BLOOD GLUCOSE 3 TIMES [...] of insulin ([facility]) Inject 2 mg under the skin [...] than 7.0% ([facility]) INJECT UNDER THE SKIN 20 UNITS AT BREAKFAST, 26 UNITS AT LUNCH, 38 UNITS WITH DINNER PLUS CORRECTION PER [facility] OR DIRECTED UP TO 120 UNITS PER DAY 120 mL 3 03/21/2024 Active DIURETIC TITRATION PLAN If no improvement on day 3, contact [facility] for possible home visit 1 Each [...] than 7.0% ([facility]) USE TO INJECT INSULINS 5 TIMES DAILY 500 Each 3 04/18/2024 Active Iquhb-4-lbmc Ethyl Esters 1 GM Oral Capsule (Lovaza) [...] as of this encounter (statuses as of 05/10/2024) Active Problems Patient Care Coordination No te Formatting of this note migh t be different from the original. Heart Failure Self-Management and Exacerbation Plan "RED FLAG" HF Symptoms: Leg Swelling Abdominal Bloating Increased dyspnea on exertion Increased shortness of breath at rest Orthopnea Remote Patient Monitoring Vendor: [facility] Device(s): Connected Scale [...] in the Comments) Remote Patient Monitoring Vendor: [employer] Device(s): Connected Scale Self - Management Plan Double dose of Torsemide for 3 days Exacerbation Plan BMP Chest X-Ray Additional Comments: Recommended using double torsemide for 3 days in a row, rather than 1 day like he has been doing Continue using [employer] scale Low sodium diet Type 2 diabetes [...] 08/18/2017 Last Assessment & Plan: Continues on [employer] 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 repatha History of [...] as of this encounter (statuses as of 05/10/2024) Resolved Problems Problem Noted Date Diagnosed Date [...] as of this encounter (statuses as of 05/10/2024) Immunizations Name Administration Dates Next Due COVID-19 mRNA, LNP-s, No Pre serve, 2-Dose Series (Moderna) 12/10/2020,11/12/2020 Hepatitis B, 20+ yrs 01/04/2018,08/03/2017,07/03 Pneumococcal Conjugate Vacci ne, 20-valent ([id number]) 06/09/2022 Pneumococcal Polysaccharide PPV23 (Pneumovax) 03/06/2020 RSV [...] 05/02/2024 Does the household have a [facility] source of income? (Household - for [...] Telephone Encounter - Leanne Le LPN - 05/10/2024 2:57 PM EST Images from the original note were not included. [facility] Remote Patient Monitoring Unable to contact patient: Trigger type: Abnormal reading(s): Device(s) Triggered: AMC (Advanced Monitored Caregiving): Scale: Trigger weight: 278.1 lbs; weight increased 6.4 lbs in 10 day(s) Plan: call placed to patient for AMC weight trigger. Left message on mobile number for return call to [facility] documented in this encounter Plan of Treatment Upcoming Encounters Date Type Department Care Team (Late st Contact Info) Description 05/11/2024 9:20 AM EST Telemedicine Pharmacy, [address] [place] [address] [place] [address] 05/24/2024 8:30 AM EST Home Visit [facility], [facility] 132 [place] [address] Love Stevens, ANNE MARIE [address] [place] [address] 05/30/2024 1:00 PM EST Telemedicine Cardiology [facility] [place] [address] [place] [address] [place] [address], Pharmacist Cardiology [place] [address] [place] [address] 05/30/2024 2:20 PM EST Office Visit Nephrology [address] [place] [address] Shivani Magallon MD [facility] [address] 05/31/2024 3:30 PM EST Scheduled Telephone [facility], [facility] [address] [facility] [place] [address] Mery Calderon RDN [address] [facility] [place] [address] 06/13/2024 11:15 AM EST Hospital Encounter ENDO [facility], Endoscopy Room [facility] 132 [place] [phone] José Miguel Sifuentes MD 132 [place] [address] 06/13/2024 11:15 AM EST - 06/13/2024 11:45 AM EST Surgery ENDO [facility], Endoscopy Room [facility] 132 [facility] [place] [phone] José Miguel Sifuentes MD [address] [place] [address] COLONOSCOPY FLEXIBLE PROXIMAL DIAGNOSTIC 07/01/2024 2:20 PM EST Office Visit Family Practice [address] [place] [address] [address] [place] [address] Igor Mcconnell, 293 [place] [address] 08/08/2024 9:30 AM EST Nurse Only Ancillary [address] [place] [address] [place], Nurse [address] [place] [address] 10/27/2024 1:00 PM EDT Office Visit Sleep Disorders [facility] 132 [facility] [place] [phone] Lindsey Sheikh CRNP 132 [facility] [place] [address] Scheduled Procedures Name Priority Associated Diagnoses Date/Ti [...] this encounter Medical Devices Implanted Type Area Contour Grinder Device Identifier Shelf Expiration Date Model / Serial / Lot Lens Intraoc 21.0 - [id number] - [id number] Implanted:Qty: 1 on 01/22/2017 by Cheko Mcnamara MD at OR [facility] Right: Eye BAUSCH [employer] LOMB 08/05/2021 [id number] / [id number] / [id number] Lens Intraoc 21.5 - [id number] - [id number] Implanted:Qty: 1 on 02/03/2017 by Cheko Mcnamara MD at OR [facility] Left: Eye BAUSCH & LOMB 09/02/2021 [id number] / [id number] / [id number] documented as of this encounter Advance Directives [...] were consensually agreed upon. Care Teams Plant Accountant Relationship Specialty Start Date End Date Igor Mcconnell DO [address] [place] [address] PCP - General Internal Medicine 02/12/24 documented as of this encounter
--- OUTSIDE RECORDS SUMMARY | 2024-08-26 02:35 | External Medical Summary ---
Author Name Unknown Address Unknown Organization K01:[facility] [place] [address] [place] [address] Laboratory Report Ordering Provider Test Date Status ADRIA REN 05/13/2024 13:07:57 Final Normal: <30 mg/g creatinine< br/>High: 30-300 mg/g creatinine
Very High: >300 mg/g creatinine
Nephrotic: >2200 mg/g creatinine Observation Date Value Abnormality Reference (Units ) Status Albumin, Urine 05/13/2024 13:07:57 2.00 (mg/dL) Final Creatinine, Urine 05/13/2024 13:07:57 106 (mg/dL) Final Albumin/Creatinine [Mass Ratio] in Urine 05/13/2024 13:07:57 19 <30 (mg/g Creat) Final Performing Location [facility] [address] [place] [address]
--- OUTSIDE RECORDS SUMMARY | 2024-08-26 02:35 | External Medical Summary | Summary of Care ---
Author Name Unknown Organization [facility] Address [address] [facility] [place] [address] Phone [phone] Care Team Providers Care Weigher Bulker Name Role Phone Igor Mcconnell DO Primary Care Provider [phone] Reason for Visit * Reason Onset Date Comments [facility]: Maintenance 05/06/2024 Encounter Details Date Type Department Care Team (Late st Contact Info) Description 05/06/2024 1:15 PM EDT Scheduled Telephone [facility], [facility] [address] [facility] [place] [address] Coordinator, [facility] [address] [facility] [place] [address] Allergies Active Allergy Reactions Criticality Noted Date [...] disease, with long-term current use of insulin ([facility]) Inject 2 mg under the skin once [...] hemoglobin A1c goal of less than 7.0% ([facility]) INJECT UNDER THE SKIN 20 UNITS AT BREAKFAST, 26 UNITS AT LUNCH, 38 UNITS WITH DINNER PLUS CORRECTION PER [facility] OR DIRECTED UP TO 120 UNITS PER DAY 120 mL 3 03/21/2024 Active DIURETIC TITRATION PLAN If no improvement on day 3, contact [facility] for possible home visit 1 [...] hemoglobin A1c goal of less than 7.0% ([facility]) USE TO INJECT INSULINS 5 TIMES DAILY 500 Each 3 04/18/2024 Active Wrqau-3-vels Ethyl Esters 1 GM Oral Capsule (Lovaza) [...] at rest Orthopnea Remote Patient Monitoring Vendor: [facility] [...] in the Comments) Remote Patient Monitoring Vendor: [employer] Device(s): Connected Scale Self - Management Plan [...] yrs 01/04/2018,08/03/2017,07/03 Pneumococcal Conjugate Vacci ne, 20-valent (Fshmelo75) 06/09/2022 Pneumococcal Polysaccharide PPV23 (Pneumovax) 03/06/2020 RSV [...] No 05/02/2024 Does the household have a [facility] source of income? (Household - for ages [...] Emmanuel LPN - 05/06/2024 1:07 PM EDT [facility] Telephonic Nurse Follow-Up Call [facility] Subprogram: Focused Care Management (3-9 [...] 39.06 kg/m2 39.53 kg/m2 Remote Patient Monitoring: [facility] Scale: patient will weigh in shortly Oxygen Needs: NO supplemental oxygen needs identified DME Needs: NO DME needs identified Medications: No medication or dose adjustments made during acute episode Subjective: Condition Status: Symptoms resolved and back to baseline Current Concerns: Spoke with Tony feeling much better than yesterday denies SOB at this time . Tony was resting but will take [facility] weight and BP shortly after lunch . Tony will call [facility] with questions and concerns . Aware I will be watching to see if readings are transmitted Disposition: Routed to [facility] and/or [facility] Care Team for further advice Future Visits Scheduled: Future Appointments-next 60 days Date/Time Provider Specialty Dept Phone 05/11/2024 9:20 AM Barrett [facility] Arrive at: Patient's Home [phone] 05/24/2024 8:30 AM Love Stevens, ANNE MARIE [facility] [phone] 05/30/2024 1:00 PM Efrain, Pharmacist Cardiology [facility] Arrive at: Patient's Home [phone] 05/30/2024 2:20 PM (Arrive by 2:05 PM) Shivani Magallon MD Nephrology [phone] 05/31/2024 3:30 PM Mery Calderon RDN [facility] [phone] 07/01/2024 2:20 PM (Arrive by 2:05 PM) Igor Mcconnell DO Family Medicine [phone] 08/08/2024 9:30 AM Osito Nurse [facility] Ancillary [phone] 10/27/2024 1:00 PM (Arrive by 12:45 PM) Lindsey Sheikh CRNP Sleep Disorders [phone] Bárbara Emmanuel LPN documented in this encounter Plan of Treatment Upcoming Encounters Date Type Department Care Team (Late st Contact Info) Description 05/11/2024 9:20 AM EST Telemedicine Pharmacy, [address] [place] [address] [place] [address] 05/24/2024 8:30 AM EST Home Visit [facility], [facility] [address] [place] [address] Love Stevens RN [address] [place] [address] 05/30/2024 1:00 PM EST Telemedicine Cardiology [facility] [place] [address] [place] [address] [place] [address], Pharmacist Cardiology [place] [address] [place] [address] 05/30/2024 2:20 PM EST Office Visit Nephrology [address] [place] [address] Shivani Magallon MD [address] [place] [address], [place] [address] 05/31/2024 3:30 PM EST Scheduled Telephone [facility], [facility] [address] [facility] [place] [address] Mery Calderon RDN [address] [facility] [place] [address] 06/13/2024 11:15 AM EST Hospital Encounter ENDO [facility], Endoscopy Room [facility] 132 [place] [phone] José Miguel Sifuentes MD [address] [place] [address] 06/13/2024 11:15 AM EST - 06/13/2024 11:45 AM EST Surgery ENDO [facility], [facility] [address] [facility] [place] [phone] José Miguel Sifuentes MD [address] [place] [address] COLONOSCOPY FLEXIBLE PROXIMAL DIAGNOSTIC 07/01/2024 2:20 PM EST Office Visit Family Practice [address] [place] [address] 293 [place] [address] Igor Mcconnell, 293 [place] [address] 08/08/2024 9:30 AM EST Nurse Only Ancillary [address] [place] [address] [place], Nurse [address] [place] [address] 10/27/2024 1:00 PM EDT Office Visit [facility] Disorders Ctr [facility] [address] [facility] [place] [phone] Lindsey Sheikh CRNP 132 [facility] [place] [address] Scheduled Procedures Name Priority Associated Diagnoses Date/Ti [...] this encounter Medical Devices Implanted Type Area Pet Crematory Worker Device Identifier Shelf Expiration Date Model / Serial / Lot Lens Intraoc 21.0 - [id number] - [id number] Implanted:Qty: 1 on 01/22/2017 by Cheko Mcnamara MD at OR [facility] Right: Eye BAUSCH [employer] LOMB 08/05/2021 [id number] / [id number] / [id number] Lens Intraoc 21.5 - [id number] - [id number] Implanted:Qty: 1 on 02/03/2017 by Cheko Mcnamara MD at OR [facility] Left: Eye BAUSCH & LOMB 09/02/2021 [id number] / [id number] / [id number] documented as of this encounter Advance Directives [...] and were consensually agreed upon. Care Teams Weigher Bulker Relationship Specialty Start Date End Date Igor Mcconnell DO [address] [place] [address] PCP - General Internal Medicine 02/12/24 documented as of this encounter
--- OUTSIDE RECORDS SUMMARY | 2024-08-26 02:35 | External Medical Summary ---
Author Name Unknown Address Unknown Organization K01:[facility] [place] [address] [place] [address] Laboratory Report Ordering Provider Test Date Status ADRIA REN 05/13/2024 13:07:57 Final Observation Date Value Abnormality Reference (Units ) Status Hemoglobin 05/13/2024 13:07:57 11.4 Below low normal 14 .0-16.8 (g/dL) Final Performing Location LABORATORY [facility] - [address] [place] [address]
--- OUTSIDE RECORDS SUMMARY | 2024-08-26 02:36 | External Medical Summary | Summary of Care ---
Author Name Unknown Organization [facility] Address [address] [facility] [address] Phone [phone] Care Team Providers Care Admissions Representative Name Role Phone Igor Mcconnell DO Primary Care Provider [phone] Reason for Visit * Reason Onset Date Comments [facility]: Maintenance 05/05/2024 Encounter Details Date Type Department Care Team (Late st Contact Info) Description 05/05/2024 Telephone [facility], [facility] [address] [facility] [place] [address] Bárbara Emmanuel, ROSCOE [address] [facility] [address] [facility]: Maintenance Allergies Active Allergy Reactions Criticality Noted Date Comments Metolazone Renal complications 11/10/2023 Note prior DTP with metolazone resulted in acute renal failure Other Allergy (See Comments) Rash Low 10/13/2022 1+ cocamidopropyl betaine Sglt2 Inhibitors Other (Please comment) High 09/04/2020 Genital infection Sulfa Antibiotics Rash 10/15/2016 documented as of this encounter (statuses as of 05/05/2024) Medications Medication Sig Dispensed Refills Start Date [...] long-term current use of insulin ([facility]) Inject 2 mg under the [...] goal of less than 7.0% ([facility]) INJECT UNDER THE SKIN 20 UNITS AT BREAKFAST, 26 UNITS AT LUNCH, 38 UNITS WITH DINNER PLUS CORRECTION PER [facility] OR DIRECTED UP TO 120 UNITS PER DAY 120 mL 3 03/21/2024 Active DIURETIC TITRATION PLAN If no improvement on day 3, contact [facility] for possible home visit 1 Each 03/24/2024 [...] goal of less than 7.0% ([facility]) USE TO INJECT INSULINS 5 TIMES DAILY 500 Each 3 04/18/2024 Active Wcwam-1-pwua Ethyl Esters 1 GM Oral Capsule (Lovaza) [...] as of this encounter (statuses as of 05/05/2024) Active Problems Patient Care Coordination No te Formatting of this note migh t be different from the original. Heart Failure Self-Management and Exacerbation Plan "RED FLAG" HF Symptoms: Leg Swelling Abdominal Bloating Increased dyspnea on exertion Increased shortness of breath at rest Orthopnea Remote Patient Monitoring Vendor: [facility] Device(s): Connected Scale Self - Management Plan [...] in the Comments) Remote Patient Monitoring Vendor: [employer] Device(s): Connected Scale Self - Management Plan [...] as of this encounter (statuses as of 05/05/2024) Resolved Problems Problem Noted Date Diagnosed Date [...] as of this encounter (statuses as of 05/05/2024) Immunizations Name Administration Dates Next Due COVID-19 mRNA, LNP-s, No Pre serve, 2-Dose Series (Moderna) 12/10/2020,11/12/2020 Hepatitis B, 20+ yrs 01/04/2018,08/03/2017,07/03 Pneumococcal Conjugate Vacci ne, 20-valent ([id number]) 06/09/2022 Pneumococcal Polysaccharide PPV23 (Pneumovax) 03/06/2020 RSV [...] No 05/02/2024 Does the household have a [employer] source of income? (Household - for [...] Telephone Encounter - Bárbara Emmanuel LPN - 05/05/2024 10:14 AM EDT Images from the original note were not included. Called Tony to follow up after speaking with Love ,Tony stated he did take am medications and feels a little better as well as breathing has improved slightly. Tony denies edema, fever /chills at this time when asked if he voided Tony stated he was afraid much today due to weight increase I encouraged patient to keep hydrated and keep a bottle of water near by . Tony will call [facility] with any concerns and aware follow up call added for tomorrow 05/06 [facility] Remote Patient Monitoring Able to contact patient: Trigger type: Abnormal reading(s): AMC (Advanced Monitored Caregiving): Scale: Trigger priority per AMC: 277.9 Symptom review: SOB: since he woke up today Diet Reviewed: Yes. Patient has had any foods high in sodium: No Fluid Intake Reviewed: Yes. Patient is on a fluid restriction: Yes, restriction amount in milliliters or liters: 2L Adherent to restriction: Yes Self-Management Plan Reviewed: Red Flags: increased edema , SOB, increased weight 2lb in 24 hours DTP (Diuretic Titration Protocol): Describe DTP: Name of medication(s): Torsemide Used in past 2 weeks: No Risk assignment recommendation: Moderate risk findings (check as applicable): [x] Moderate trigger priority on [facility] [] Confirmed tympanic equivalent temperature 100.4-101.9 F [...] selection justification: spoke with Tony stated he isn't feeling well , states he has SOB and zero energy since he woke up today denies edema at this time. Tony has not taken any medication yet today still laying down Overall risk and identified plan: High risk: Next day follow up call scheduled Route to RNCM (Registered Nurse Grooming Assistant) and Advance Practitioner Route to RMC (Remote Medical Coordinator) documented in this encounter Plan of Treatment Upcoming Encounters Date Type Department Care Team (Late st Contact Info) Description 05/11/2024 9:20 AM EST Telemedicine Pharmacy, [address] [place] [address] [place] [address] 05/24/2024 8:30 AM EST Home Visit [facility], [facility] [place] [address] Love Stevens RN [facility] [address] 05/30/2024 1:00 PM EST Telemedicine Cardiology [facility] [place] [address] [place] [address] [place] [address], Pharmacist Cardiology [facility] [address] [place] [address] 05/30/2024 2:20 PM EST Office Visit Nephrology [address] [place] [address] Shivani Magallon MD [address] [place] [address], [place] [address] 05/31/2024 3:30 PM EST Scheduled Telephone [facility], [facility] [address] [facility] [place] [address] Mery Calderon RDN [address] [facility] [place] [address] 06/13/2024 11:15 AM EST Hospital Encounter ENDO [facility], Endoscopy Room [facility] [address] [place] [phone] José Miguel Sifuentes MD [address] [place] [address] 06/13/2024 11:15 AM EST - 06/13/2024 11:45 AM EST Surgery ENDO [facility], Endoscopy Room [facility] [place] [phone] José Miguel Sifuentes MD [facility] [place] [address] COLONOSCOPY FLEXIBLE PROXIMAL DIAGNOSTIC 07/01/2024 2:20 PM EST Office Visit Family [address] 293 [place] [address] Igor Mcconnell, 293 [place] [address] 08/08/2024 9:30 AM EST Nurse Only Ancillary [address] [place] [address] [place], Nurse [address] [place] [address] 10/27/2024 1:00 PM EDT Office Visit Sleep Disorders Ctr [facility] 132 [facility] [place] [phone] Lindsey Sheikh CRNP [address] [place] [address] Scheduled Procedures Name Priority Associated Diagnoses Date/Ti [...] this encounter Medical Devices Implanted Type Area Mail Distribution Scheme Examiner Device Identifier Shelf Expiration Date Model / Serial / Lot Lens Intraoc 21.0 - [id number] - [id number] Implanted:Qty: 1 on 01/22/2017 by Cheko Mcnamara MD at OR [facility] Right: Eye [employer]USCH [employer]OMB 08/05/2021 [id number] / [id number] / [id number] Lens Intraoc 21.5 - [id number] - [id number] Implanted:Qty: 1 on 02/03/2017 by Cheko Mcnamara MD at OR [facility] Left: Eye BAUSCH & LOMB 09/02/2021 [id number] / [id number] / [id number] documented as of this encounter Advance Directives [...] and were consensually agreed upon. Care Teams Admissions Representative Relationship Specialty Start Date End Date Igor Mcconnell DO 293 [place] [address] PCP - General Internal Medicine 02/12/24 documented as of this encounter
--- OUTSIDE RECORDS SUMMARY | 2024-08-26 02:36 | External Medical Summary | Summary of Care ---
Author Name Unknown Organization [facility] Address [address] [facility] [address] Phone [phone] Care Team Providers Care Customer Assistant Name Role Phone Igor Mcconnell DO Primary Care Provider [phone] Reason for Visit * Reason Onset Date Comments [facility]: Maintenance 05/05/2024 Encounter Details Date Type Department Care Team (Late st Contact Info) Description 05/05/2024 Telephone [facility], [facility] [address] [facility] [place] [address] Bárbara Emmanuel, [place] [address] [place] [address] [facility]: Maintenance Allergies Active Allergy [...] disease, with long-term current use of insulin ([facility]) Inject 2 mg under the skin [...] FOR BEHAVIORAL HEALTH) INJECT UNDER THE SKIN 20 UNITS AT BREAKFAST, 26 UNITS AT LUNCH, 38 UNITS WITH DINNER PLUS CORRECTION PER PICO [...] than 7.0% ([facility]) USE TO INJECT INSULINS 5 TIMES DAILY 500 Each 3 04/18/2024 Active Thacj-0-sooh Ethyl Esters 1 GM Oral Capsule (Lovaza) [...] at rest Orthopnea Remote Patient Monitoring Vendor: [facility] Device(s): Connected Scale Self - Management Plan [...] in the Comments) Remote Patient Monitoring Vendor: [employer] Device(s): Connected Scale Self - Management Plan [...] yrs 01/04/2018,08/03/2017,07/03 Pneumococcal Conjugate Vacci ne, 20-valent ([id number]) 06/09/2022 Pneumococcal Polysaccharide PPV23 (Pneumovax) 03/06/2020 RSV [...] Does the household have a [facility] source of income? (Household - for [...] call scheduled Route to RNCM (Registered Nurse Biofuels Operations Manager) and Advance Practitioner Route to RMC (Remote Medical Coordinator) documented in this encounter Plan of Treatment Upcoming Encounters Date Type Department Care Team (Late st Contact Info) Description 05/11/2024 9:20 AM EST Telemedicine Pharmacy, [address] [place] [address] [place] [address] 05/24/2024 8:30 AM EST Home Visit [facility], [facility] [address] [place] [address] Love Stevens RN [address] [place] [address] 05/30/2024 1:00 PM EST Telemedicine Cardiology [facility] [place] [address] [place] [address] [place] [address], Pharmacist Cardiology [place] [address] [place] [address] 05/30/2024 2:20 PM EST Office Visit Nephrology [address] [place] [address] Shivani Magallon MD 200 [facility] [place] [address] 05/31/2024 3:30 PM EST Scheduled Telephone [facility], [facility] [address] [facility] [place] [address] Mery Calderon RDN [address] [facility] [place] [address] 06/13/2024 11:15 AM EST Hospital Encounter ENDO [facility], Endoscopy Room [facility] [address] [place] [phone] José Miguel Sifuentes MD [address] [place] [address] 06/13/2024 11:15 AM EST - 06/13/2024 11:45 AM EST Surgery ENDO OSSC, Endoscopy Room [facility] [address] [place] [phone] JoséM iguel Sifuentes MD [address] [place] [address] COLONOSCOPY FLEXIBLE PROXIMAL DIAGNOSTIC 07/01/2024 2:20 PM EST Office Visit Family [address] [place] [address] Igor Mcconnell, 293 [place] [address] 08/08/2024 9:30 AM EST Nurse Only Ancillary [address] [place] [address] [place], Nurse [address] [place] [address] 10/27/2024 1:00 PM EDT Office Visit Sleep Disorders Ctr [facility] [address] [place] [phone] Lindsey Sheikh CRNP 132 [facility] [place] [address] Scheduled Procedures Name Priority Associated Diagnoses Date/Ti [...] this encounter Medical Devices Implanted Type Area Lugger Device Identifier Shelf Expiration Date Model / Serial / Lot Lens Intraoc 21.0 - [id number] - [id number] Implanted:Qty: 1 on 01/22/2017 by Cheko Mcnamara MD at OR [facility] Right: Eye BAUSCH & LOMB 08/05/2021 [id number] / [id number] / [id number] Lens Intraoc 21.5 - [id number] - [id number] Implanted:Qty: 1 on 02/03/2017 by Cheko Mcnamara MD at OR [facility] Left: Eye BAUSCH & LOMB 09/02/2021 [id number] / [id number] / [id number] documented as of this encounter Advance Directives [...] were consensually agreed upon. Care Teams Customer Assistant Relationship Specialty Start Date End Date Igor Mcconnell DO [address] [place] [address] PCP - General Internal Medicine 02/12/24 documented as of this encounter
--- OUTSIDE RECORDS SUMMARY | 2024-08-26 02:36 | External Medical Summary | Summary of Care ---
Author Name Unknown Organization [facility] Address [address] [facility] [address] Phone [phone] Care Team Providers Care Gun Tester Name Role Phone Igor Mcconnell DO Primary Care Provider [phone] Reason for Visit * Reason Onset Date Comments [facility]: Maintenance 05/05/2024 Encounter Details Date Type Department Care Team (Late st Contact Info) Description 05/05/2024 Telephone [facility], [facility] [address] [facility] [place] [address] Bárbara Emmanuel, [place] [address] [place] [address] [facility]: Maintenance Allergies Active Allergy [...] disease, with long-term current use of insulin ([facility]) Inject 2 mg under the [...] hemoglobin A1c goal of less than 7.0% ([facility]) INJECT UNDER THE SKIN 20 UNITS AT BREAKFAST, 26 UNITS AT LUNCH, 38 UNITS WITH DINNER PLUS CORRECTION PER [facility] OR DIRECTED UP TO 120 UNITS PER DAY 120 mL 3 03/21/2024 Active DIURETIC TITRATION PLAN If no improvement on day 3, contact [facility] for possible home visit 1 [...] hemoglobin A1c goal of less than 7.0% ([facility]) USE TO INJECT INSULINS 5 TIMES DAILY 500 Each 3 04/18/2024 Active Bwrkk-3-xfrb Ethyl Esters 1 GM Oral Capsule (Lovaza) [...] in the Comments) Remote Patient Monitoring Vendor: [employer] Device(s): Connected Scale Self - Management Plan [...] yrs 01/04/2018,08/03/2017,07/03 Pneumococcal Conjugate Vacci ne, 20-valent ([id number]) 06/09/2022 Pneumococcal Polysaccharide PPV23 (Pneumovax) 03/06/2020 RSV [...] No 05/02/2024 Does the household have a [facility] source of income? (Household - for ages [...] call scheduled Route to RNCM (Registered Nurse Enamel Buffer) and Advance Practitioner Route to RMC (Remote Medical Coordinator) documented in this encounter Plan of Treatment Upcoming Encounters Date Type Department Care Team (Late st Contact Info) Description 05/11/2024 9:20 AM EST Telemedicine Pharmacy, [address] [place] [address] [place] [address] 05/24/2024 8:30 AM EST Home Visit [facility], [facility] [address] [place] [address] Love Stevens RN [address] [place] [address] 05/30/2024 1:00 PM EST Telemedicine Cardiology [facility] [place] [address] [place] [address] [place] [address], Pharmacist Cardiology [place] [address] [place] [address] 05/30/2024 2:20 PM EST Office Visit Nephrology [address] [place] [address] Shivani Magallon MD 200 [facility] [place] [place] [address] 05/31/2024 3:30 PM EST Scheduled Telephone [facility], [facility] [address] [facility] [place] [address] Mery Calderon RDN [address] [facility] [place] [address] 06/13/2024 11:15 AM EST Hospital Encounter ENDO OSSC, Endoscopy Room OSS [address] [place] [phone] José Miguel Sifuentes MD [address] [place] [address] 06/13/2024 11:15 AM EST - 06/13/2024 11:45 AM EST Surgery ENDO O[facility], Endoscopy Room [facility] [address] [place] [phone] José Miguel Sifuentes MD [address] [place] [address] COLONOSCOPY FLEXIBLE PROXIMAL DIAGNOSTIC 07/01/2024 2:20 PM EST Office Visit Family [address] [place] [address] Igor Mcconnell, 293 [place] [address] 08/08/2024 9:30 AM EST Nurse Only Ancillary [address] [place] [address] [place], Nurse [address] [place] [address] 10/27/2024 1:00 PM EDT Office Visit Sleep Disorders Ctr [facility] [address] [place] [phone] Lindsey Sheikh CRNP 132 [facility] [place] [address] Scheduled Procedures Name Priority Associated Diagnoses Date/Ti [...] this encounter Medical Devices Implanted Type Area Grades 7 8 Tutor Device Identifier Shelf Expiration Date Model / Serial / Lot Lens Intraoc 21.0 - [id number] - [id number] Implanted:Qty: 1 on 01/22/2017 by Cheko Mcnamara MD at OR [facility] Right: Eye BAUSCH & LOMB 08/05/2021 [id number] / [id number] / [id number] Lens Intraoc 21.5 - [id number] - [id number] Implanted:Qty: 1 on 02/03/2017 by Cheko Mcnamara MD at OR [facility] Left: Eye BAUSCH & LOMB 09/02/2021 [id number] / [id number] / [id number] documented as of this encounter Advance Directives [...] and were consensually agreed upon. Care Teams Gun Tester Relationship Specialty Start Date End Date Igor Mcconnell DO [address] [facility] [place] [address] PCP - General Internal Medicine 02/12/24 documented as of this encounter
--- OUTSIDE RECORDS SUMMARY | 2024-08-26 02:36 | External Medical Summary | Summary of Care ---
Author Name Unknown Organization [facility] Address [address] [facility] [place] [address] Phone [phone] Care Team Providers Care Architectural Administrative Assistant Name Role Phone FaizachuIgor DO Primary Care Provider [phone] Encounter Details Date Type Department Care Team (Late st Contact Info) Description 05/03/2024 Orders Only PATIENT PORTAL DO NOT DELETE THIS DEPT USED BY [place] [id number] Allergies Active Allergy Reactions Criticality Noted Date Comments Metolazone Renal complications 11/10/2023 Note prior DTP with metolazone resulted in acute renal failure Other Allergy (See Comments) Rash Low 10/13/2022 1+ cocamidopropyl betaine Sglt2 Inhibitors Other (Please comment) High 09/04/2020 Genital infection Sulfa Antibiotics Rash 10/15/2016 documented as of this encounter (statuses as of 05/03/2024) Medications Medication Sig Dispensed Refills Start Date [...] 38 UNITS WITH DINNER PLUS CORRECTION PER [facility] OR DIRECTED UP TO 120 UNITS PER DAY 120 mL 3 03/21/2024 Active DIURETIC TITRATION PLAN If no improvement on day 3, contact [facility] for possible home visit 1 Each [...] TIMES DAILY 500 Each 3 04/18/2024 Active Ghvhi-5-cgge Ethyl Esters 1 GM Oral Capsule (Lovaza) [...] BEFORE A MEAL 180 Capsule 1 05/02/2024 Active documented as of this encounter (statuses as of 05/03/2024) Active Problems Patient Care Coordination No te Formatting of this note migh t be different from the original. Heart Failure Self-Management and Exacerbation Plan "RED FLAG" HF Symptoms: Leg Swelling Abdominal Bloating Increased dyspnea on exertion Increased shortness of breath at rest Orthopnea Remote Patient Monitoring Vendor: [facility] Device(s): Connected Scale Self - Management Plan [...] in the Comments) Remote Patient Monitoring Vendor: [employer] Device(s): Connected Scale Self - Management Plan [...] as of this encounter (statuses as of 05/03/2024) Resolved Problems Problem Noted Date Diagnosed Date [...] as of this encounter (statuses as of 05/03/2024) Immunizations Name Administration Dates Next Due COVID-19 mRNA, LNP-s, No Pre serve, 2-Dose Series (Moderna) 12/10/2020,11/12/2020 Hepatitis B, 20+ yrs 01/04/2018,08/03/2017,07/03 Pneumococcal Conjugate Vacci ne, 20-valent ([id number]) 06/09/2022 Pneumococcal Polysaccharide PPV23 (Pneumovax) 03/06/2020 RSV [...] No 05/02/2024 Does the household have a [facility] source of income? (Household - for ages [...] Description 05/11/2024 9:20 AM EST Telemedicine Pharmacy, [address] [place] [address] [place] [address] 05/24/2024 8:30 AM EST [facility] [address] [place] [address] Love Stevens, ANNE MARIE [address] [place] [address] 05/30/2024 1:00 PM EST Telemedicine Cardiology [facility] [place] [address] [place], [place] [id number] [place] [address], Pharmacist Cardiology [facility] [address] [place] [address] 05/30/2024 2:20 PM EST Office Visit Nephrology [address] [place] [address] Shivani Magallon MD [address] [place] [address] 05/31/2024 3:30 PM EST Scheduled Telephone [facility], [facility] [address] [facility] [place] [address] IMery abbasi, RDN [address] [facility] [place] [address] 06/13/2024 11:15 AM EST Hospital Encounter ENDO OSS, Endoscopy Room [facility] [address] [facility] [place] [phone] José Miguel Sifuentes MD 132 [place] [address] 06/13/2024 11:15 AM EST - 06/13/2024 11:45 AM EST Surgery ENDO OSS, Endoscopy Room [facility] [address] [facility] [place] [phone] José Miguel S[facility]uentes [facility] [address] COLONOSCOPY FLEXIBLE PROXIMAL DIAGNOSTIC 07/01/2024 2:20 PM EST Office Visit Family Practice [address] [place] [address], [place] 293 [place] [address] Igor Mcconnell, 293 [place] [address] 08/08/2024 9:30 AM EST Nurse Only Ancillary [address] [place] [address] [place], Nurse [address] [place] [address] 10/27/2024 1:00 PM EDT Office Visit Sleep Disorders Ctr [facility] [address] [place] [phone] Lindsey Sheikh CRNP [address] [place] [address] Scheduled Procedures Name Priority Associated Diagnoses Date/Ti [...] this encounter Medical Devices Implanted Type Area Development Planner Device Identifier Shelf Expiration Date Model / Serial / Lot Lens Intraoc 21.0 - [id number] - [id number] Implanted:Qty: 1 on 01/22/2017 by Cheko Mcnamara MD at OR [facility] Right: Eye BAUSCH & LOMB 08/05/2021 [id number] / [id number] / [id number] Lens Intraoc 21.5 - [id number] - [id number] Implanted:Qty: 1 on 02/03/2017 by Cheko Mcnamara MD at OR [facility] Left: Eye BAUSCH & LOMB 09/02/2021 [id number] / [id number] / [id number] documented as of this encounter Advance Directives [...] were consensually agreed upon. Care Teams Architectural Administrative Assistant Relationship Specialty Start Date End Date Igor Mcconnell DO [address] [place] [address] PCP - General Internal Medicine 02/12/24 documented as of this encounter
--- OUTSIDE RECORDS SUMMARY | 2024-08-26 02:36 | External Medical Summary | Summary of Care ---
Author Name Unknown Organization [facility] Address [address] [facility] [place] [address] Phone [phone] Care Team Providers Care Associate Accountant Name Role Phone Igor Mcconnell DO Primary Care Provider [phone] Reason for Visit * Reason Comments Medication Refill Encounter Details Date Type Department Care Team (Late st Contact Info) Description 05/02/2024 Refill [facility], [facility] [address] [facility] [place] [address] [address] [place] [address] Allergies Active Allergy Reactions Criticality Noted Date Comments Metolazone Renal complications 11/10/2023 Note prior DTP with metolazone resulted in acute renal failure Other Allergy (See Comments) Rash Low 10/13/2022 1+ cocamidopropyl betaine Sglt2 Inhibitors Other (Please comment) High 09/04/2020 Genital infection Sulfa Antibiotics Rash 10/15/2016 documented as of this encounter (statuses as of 05/02/2024) Medications Medication Sig Dispensed Refills Start Date [...] medications Active Carvedilol 25 MG Oral Tablet (Coreg)Indications: HTN, goal below 140/90 TAKE ONE TABLET BY MOUTH EVERY MORNING AND TAKE ONE TABLET BY MOUTH BEFORE BEDTIME 200 Tablet 3 3 05/24/20 24 Active Evolocumab 140 MG/ML Subcutaneous Solution [...] before bedtime. 300 Tablet 3 4 Active OneTouch Verio In Vitro Strip (Glucose Blood)Indications:U ncontrolled type 2 diabetes mellitus with hyperglycemia (HCC) USE TO TEST BLOOD GLUCOSE 3 TIMES A DAY. DX: E11.9 300 Strip 3 4 Active Ondansetron 4 MG Oral Tablet Disintegrating (Zofran) Place 1 Tablet on tongue every 8 hours as needed for Nausea. 30 Tablet 4 Active Tresiba FlexTouch 200 UNIT/ML Subcutaneous Solution Pen-injectorIndicat ions:Type 2 diabetes mellitus with hemoglobin A1c goal of less than 7.0% (HCC) INJECT UNDER THE SKIN 100 UNITS TWICE DAILY OR DIRECTED 90 mL 3 4 01/18/20 25 Active Additional Information Patient taking differently: 90 Units Subcutaneous BID(Non-Specified), Reported on 02/12/2024 Torsemide 20 MG Oral Tablet (Demadex)Indication s:Chronic heart failure with preserved ejection fraction (HCC),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) Take 4 Tablets by mouth in the morning and 4 Tablets before bedtime. Or take as directed. 240 Tablet 5 4 Active Additional Information Patient taking differently:80 mg [...] 8 MG/3ML Subcutaneous Solution Pen-injector (Semaglutide (2 MG/DOSE))Indication s:Type 2 diabetes mellitus with stage 4 chronic kidney disease, with long-term current use of insulin ([facility]) Inject 2 mg under the skin once a week. 2 mL 11 4 Active Clotrimazole-Betame thasone 1-0.05 % External Cream (Lotrisone) Apply small amount of cream to scrotal area two times a day 90 g 1 4 Active predniSONE 5 MG Oral Tablet (Deltasone) As directed for first part of taper. 20 mg (4 tabs) x 5 days, then 10 mg (2 tabs) x 5 days, then 5 mg (1 tab) x 5 days, then 2 mg (separate prescription) x 5 days then stop. 35 Tablet 4 Active predniSONE 1 MG Oral Tablet (Deltasone) As directed for last part of taper >> 20 mg (separate prescription) x 5 days, then 10 mg (separate prescription) x 5 days, then 5 mg (separate prescription) x 5 days, then 2 mg (2 tabs) x 5 days then stop. 10 Tablet 4 Active Allopurinol 300 MG Oral Tablet (Zyloprim)Indicatio ns:Gout, arthropathy Take 1 Tablet by mouth in the morning. 100 Tablet 3 4 Active NovoLOG FlexPen 100 UNIT/ML Subcutaneous Solution Pen-injectorIndicat ions:Type 2 diabetes mellitus with hemoglobin A1c goal of less than 7.0% ([facility]) INJECT UNDER THE SKIN 20 UNITS AT BREAKFAST, 26 UNITS AT LUNCH, 38 UNITS WITH DINNER PLUS CORRECTION PER [facility] OR DIRECTED UP TO 120 UNITS PER DAY 120 mL 3 4 Active DIURETIC TITRATION PLAN If no improvement on day 3, contact [facility] for possible home visit 1 Each 4 Active Evolocumab 140 MG/ML Subcutaneous Solution Auto-injector (Repatha SureClick)Indicatio ns:Dyslipidemia, goal LDL below 100,Mixed dyslipidemia Inject 140 mg under the skin every 14 days. 6 mL 3 4 Active Potassium Chloride Gaviota ER 20 MEQ Oral Tablet Extended Release Take 1 Tablet by mouth in the morning and 1 Tablet at noon and 1 Tablet before bedtime. 180 Tablet 3 4 Active Unifine Pentips 31G X 8 MM (Insulin Pen Needle)Indications: Type 2 diabetes mellitus with hemoglobin A1c goal of less than 7.0% (HCC) USE TO INJECT INSULINS 5 TIMES DAILY 500 Each 3 4 Active Ljprj-4-bvhi Ethyl Esters 1 GM Oral Capsule (Lovaza) Take 2 Capsules by mouth in the morning and 2 Capsules before bedtime. 360 Capsule 1 4 Active metOLazone 2.5 MG Oral Tablet (Zaroxolyn)Indicati ons: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) Take 1 tablet by mouth as needed for > 3 lb weight gain in 1 day, or > 5 lb weight gain in 1 week. 100 Tablet 5 4 Active Omeprazole 20 MG Oral Capsule Delayed Release (PriLOSEC) TAKE 1 CAPSULE BY MOUTH IN THE MORNING AND 1 CAPSULE BEFORE BEDTIME 30 MINUTES BEFORE A MEAL 180 Capsule 1 4 05/02/20 25 Active Omeprazole 20 MG Oral Capsule Delayed Release (PriLOSEC) TAKE 1 CAPSULE BY MOUTH IN THE MORNING AND 1 CAPSULE BEFORE BEDTIME 30 MINUTES BEFORE A MEAL 180 Capsule 1 4 05/02/20 24 Discontinu ed(Refill) documented as of this encounter (statuses as of 05/02/2024) Active Problems Patient Care Coordination No te Formatting of this note migh t be different from the original. Heart Failure Self-Management and Exacerbation Plan "RED FLAG" HF Symptoms: Leg Swelling Abdominal Bloating Increased dyspnea on exertion Increased shortness of breath at rest Orthopnea Remote Patient Monitoring Vendor: [facility] Device(s): Connected Scale Self - Management Plan [...] in the Comments) Remote Patient Monitoring Vendor: [employer] Device(s): Connected Scale Self - Management [...] as of this encounter (statuses as of 05/02/2024) Resolved Problems Problem Noted Date Diagnosed Date [...] has been better controlled recently. Monitor using [employer] Cindy. NEMESIO (acute kidney injury) 04/30/2022 Severe [...] as of this encounter (statuses as of 05/02/2024) Immunizations Name Administration Dates Next Due COVID-19 mRNA, LNP-s, No Pre serve, 2-Dose Series (Moderna) 12/10/2020,11/12/2020 Hepatitis B, 20+ yrs 01/04/2018,08/03/2017,07/03 Pneumococcal Conjugate Vacci ne, 20-valent ([id number]) 06/09/2022 Pneumococcal Polysaccharide PPV23 (Pneumovax) 03/06/2020 RSV [...] No 05/02/2024 Does the household have a [facility] hospitallar source of income? (Household - for [...] encounter Miscellaneous Notes * Telephone Encounter - Shannon Wheeler PA-C - 05/02/2024 5:52 PM EDTSigned Prescriptions: Disp Refills Omeprazole 20 MG Oral Capsule Delayed Rele*180 Ca*1 Sig: TAKE 1 CAPSULE BY MOUTH IN THE MORNING AND 1 CAPSULE BEFORE BEDTIME 30 MINUTES BEFORE A MEAL Authorizing Provider: SHANNON WHEELER * Telephone Encounter - Alexandra Mcgraw LPN - 05/02/2024 5:08 PM EDTPending Prescriptions: Disp Refills Omeprazole 20 MG Oral Capsule Delayed Rele*180 Ca*1 Sig: TAKE 1 CAPSULE BY MOUTH IN THE MORNING AND 1 CAPSULE BEFORE BEDTIME 30 MINUTES BEFORE A MEAL * Telephone Encounter - Stephanie Lopez RPh - 05/02/2024 8:09 AM EDT Pending Prescriptions: Disp Refills Omeprazole 20 MG Oral Capsule Delayed Rele*180 Ca*1 Sig: TAKE 1CAPSULE BY MOUTH IN THE MORNING AND 1 CAPSULE BEFORE BEDTIME 30 MINUTES BEFORE A MEAL documented in this encounter Plan of Treatment Upcoming Encounters Date Type Department Care Team (Late st Contact Info) Description 05/11/2024 9:20 AM EST Telemedicine Pharmacy, [address] [place] [address] [place] [address] 05/24/2024 8:30 AM EST [facility] Visit [facility] [address] [place] [address] Love Stevens RN [address] [place] [address] 05/30/2024 1:00 PM EST Telemedicine Cardiology [facility], [place] [address] [place] [address] [facility], Pharmacist Cardiology [facility] [address] [place] [address] 05/30/2024 2:20 PM EST Office Visit Nephrology [address] [place] [id number] Shivani Magallon MD [address] [place] [address] 05/31/2024 3:30 PM EST Scheduled Telephone [facility], [facility] [address] [facility] [place] [address] Mery Calderon RDN [address] [facility] [place] [address] 06/13/2024 11:15 AM EST Hospital Encounter ENDO OSS, Endoscopy Room [facility] 132 [facility] [place] [phone] José Miguel Sifuentes MD [address] [place] [address] 06/13/2024 11:15 AM EST - 06/13/2024 11:45 AM EST Surgery ENDO OSS, Endoscopy Room [facility] [address] [place] [phone] José Miguel Sifuentes MD [address] [place] [address] COLONOSCOPY FLEXIBLE PROXIMAL DIAGNOSTIC 07/01/2024 2:20 PM EST Office Visit Family Practice [address], [place] 293 [facility] [address] Igor Mcconnell, 293 [place] [address] 08/08/2024 9:30 AM EST Nurse Only Ancillary Lazaro Hyde[address] [place] [address] [place], Nurse [address] [place] [address] 10/27/2024 1:00 PM EDT [facility] [address] [facility] [place] [phone] Lindsey Sheikh CRNP 132 [facility] [place] [address] Scheduled Procedures Name Priority Associated Diagnoses Date/Ti [...] this encounter Medical Devices Implanted Type Area Ice Carver Device Identifier Shelf Expiration Date Model / Serial / Lot Lens Intraoc 21.0 - [id number] - [id number] Implanted:Qty: 1 on 01/22/2017 by Cheko Mcnamara MD at [facility] Right: Eye [employer] 08/05/2021 [id number] / [id number] / [id number] Lens Intraoc 21.5 - [id number] - [id number] Implanted:Qty: 1 on 02/03/2017 by Cheko Mcnamara MD at OR [facility] Left: Eye [employer] 09/02/2021 [id number] / [id number] / [id number] documented as of this encounter Advance Directives [...] were consensually agreed upon. Care Teams Associate Accountant Relationship Specialty Start Date End Date Igor Mcconnell DO [address] [place] [address] PCP - General Internal Medicine 02/12/24 documented as of this encounter
--- OUTSIDE RECORDS SUMMARY | 2024-08-26 02:36 | External Medical Summary | Summary of Care ---
Author Name Unknown Organization [facility] Address [address] [facility] [place] [address] Phone [phone] Care Team Providers Care Service Station Operator Name Role Phone Igor Mcconnell DO Primary Care Provider Encounter Details Date Type Department Care Team (Late st Contact Info) Description 05/02/2024 2:30 PM EDT [facility] [address] [place] [address] Love Stevens, [place] [address] [place] [address] Allergies Active Allergy Reactions Criticality Noted Date Comments Metolazone Renal complications 11/10/2023 Note prior DTP with metolazone resulted in acute renal failure Other Allergy (See Comments) Rash Low 10/13/2022 1+ cocamidopropyl betaine Sglt2 Inhibitors Other (Please comment) High 09/04/2020 Genital infection Sulfa Antibiotics Rash 10/15/2016 documented as of this encounter (statuses as of 05/04/2024) Medications Medication Sig Dispensed Refills Start Date [...] 38 UNITS WITH DINNER PLUS CORRECTION PER [facility] OR DIRECTED UP TO 120 UNITS PER DAY 120 mL 3 4 Active DIURETIC TITRATION PLAN If no improvement on day 3, contact [facility] for possible home visit 1 Each 4 [...] TIMES DAILY 500 Each 3 4 Active Tvcrg-9-fqhv Ethyl Esters 1 GM Oral Capsule (Lovaza) [...] as of this encounter (statuses as of 05/04/2024) Active Problems Patient Care Coordination No te Formatting of this note migh t be different from the original. Heart Failure Self-Management and Exacerbation Plan "RED FLAG" HF Symptoms: Leg Swelling Abdominal Bloating Increased dyspnea on exertion Increased shortness of breath at rest Orthopnea Remote Patient Monitoring Vendor: [facility] Device(s): Connected Scale [...] in the Comments) Remote Patient Monitoring Vendor: [employer] Device(s): Connected Scale Self - Management Plan [...] as of this encounter (statuses as of 05/04/2024) Resolved Problems Problem Noted Date Diagnosed Date [...] as of this encounter (statuses as of 05/04/2024) Immunizations Name Administration Dates Next Due COVID-19 mRNA, LNP-s, No Pre serve, 2-Dose Series (Moderna) 12/10/2020,11/12/2020 Hepatitis B, 20+ yrs 01/04/2018,08/03/2017,07/03 Pneumococcal Conjugate Vacci ne, 20-valent ([id number]) 06/09/2022 Pneumococcal Polysaccharide PPV23 (Pneumovax) 03/06/2020 RSV [...] No 05/02/2024 Does the household have a [facility] source of income? (Household - for [...] Sign Reading Time Taken Comments Blood Pressure 122/58 05/02/2024 3:00 PM EDT Pulse 70 05/02/2024 3:00 PM EDT Temperature 36.6 C (97.8 F) 05/02/2024 3:00 PM ED T Respiratory Rate 18 05/02/2024 3:00 PM EDT Oxygen Saturation 95% 05/02/2024 3:00 PM EDT Inhaled Oxygen Concentration - - Weight - - Height - - Body Mass Index - - documented in this encounter Progress Notes * Love Stevens RN - 05/02/2024 2:59 PM EDT Images from the original note were not included. Current Concerns: Patient seen for follow up- CKD4, CHF, COPD, [place], DM2 Has upcoming MTM visit for blood pressure management. Patient does have concerns. He understands the importance of blood pressure control- does not want additional medication added if he can help it. Weight trigger- today took additional Metolazone- took one yesterday per report.States it normally requires a second dose for it to be effective. Blood sugar- 7 day average- 185 VS wnl Lungs clear but diminished Sob with exertion No LE edema noted Voiding without difficulty Bowels wnl- per report Appetite good- adhering to low na diet Taking fluids well. Physical Exam: Physical Exam Constitutional: Appearance: Normal appearance. Cardiovascular: Rate and Rhythm: Normal rate and regular rhythm. Pulses: Normal pulses. Pulmonary: Effort: Pulmonary effort is normal. Breath sounds: Normal breath sounds. Abdominal: General: There is distension. Palpations: Abdomen is soft. [...] of Systems: Review of Systems Constitutional: Negative. HENT: Negative. Cardiovascular: Positive for leg swelling. Gastrointestinal: Positive for abdominal distention. Genitourinary: Negative. Musculoskeletal: Positive for gait problem. Skin: Negative. Hematological: Negative. Psychiatric/Behavioral: Negative. Care Plan Goal Progress: GS - Patient/caregiver will verbalize proper technique in daily weight monitoring with heart failure. (Progressing) Start: 03/16/24 Expected End: 05/16/24 GS - Patient/caregiver will verbalize importance of fluid restriction compliance in the management of heart failure (Progressing) Start: 03/16/24 Expected End: 05/16/24 GS [...] End: 05/16/24 GS - Patient/caregiver will verbalize benefit of telehealth monitoring in the management of heart failure. (Progressing) Start: 03/16/24 Expected End: 05/16/24 GS - Patient/caregiver will verbalize understanding of diuretic titration protocol (Progressing) Start: 03/16/24 Expected End: 05/16/24 GS - Patient/caregiver will verbalize an understanding of diagnosis, treatment and self management of heart failure (Progressing) Start: 03/16/24 Expected End: 05/16/24 Orders Placed: No orders of the defined types were placed in this encounter. Medications Given: Care Gaps: Care Gaps Care gaps closed this contact:: Education (05/04/24 5774) Type of education: Clinical/disease (05/04/24 3077) documented in this encounter Plan of Treatment Upcoming Encounters Date Type Department Care Team (Late st Contact Info) Description 05/11/2024 9:20 AM EST Telemedicine Pharmacy, [address] [place] [address] [place] [address] 05/24/2024 8:30 AM EST [facility] Visit [facility], [facility] 132 [facility] [place] [address] Love Stevens, ANNE MARIE 132 [facility] [place] [address] 05/30/2024 1:00 PM EST Telemedicine Cardiology [facility], [place] [address] [facility] [place] [address] [place] [address], Pharmacist Cardiology [facility] [address] [facility] [place] [address] 05/30/2024 2:20 PM EST Office Visit Nephrology [address] [place] [address] Shivani Magallon MD [address] [place] [address] 05/31/2024 3:30 PM EST Scheduled Telephone [facility], [facility] [address] [facility] [place] [address] Mery Calderon RDN [address] [facility] [address] 06/13/2024 11:15 AM EST Hospital Encounter ENDO OSSC, [facility] [place] [phone] José Miguel Sifuentes MD 132 [facility] [place] [address] 06/13/2024 11:15 AM EST - 06/13/2024 11:45 AM EST Surgery ENDO OSSC, Endoscopy Room [facility] [address] [facility] [place] [phone] José Miguel Sifuentes MD [address] [facility] [place] [address] COLONOSCOPY FLEXIBLE PROXIMAL DIAGNOSTIC 07/01/2024 2:20 PM EST Office Visit Family Practice [address] [place] [address] [address] [place] [address] Igor Mcconnell, 293 [place] [address] 08/08/2024 9:30 AM EST Nurse Only Ancillary Lazaro Hyde[address] [place] [address] [place], Nurse [address] [place] [address] 10/27/2024 1:00 PM EDT Office Visit Sleep Disorders Ctr [facility] [address] [place] [phone] Lindsey Sheikh CRNP [address] [place] [address] Scheduled Procedures Name Priority Associated Diagnoses Date/Ti [...] this encounter Medical Devices Implanted Type Area Newspaper Stuffer Device Identifier Shelf Expiration Date Model / Serial / Lot Lens Intraoc 21.0 - [id number] - [id number] Implanted:Qty: 1 on 01/22/2017 by Cheko Mcnamara MD at OR [facility] Right: Eye [employer] 08/05/2021 [id number] / [id number] / [id number] Lens Intraoc 21.5 - [id number] - [id number] Implanted:Qty: 1 on 02/03/2017 by Cheko Mcnamara MD at OR [facility] Left: Eye [employer] 09/02/2021 [id number] / [id number] / [id number] documented as of this encounter Advance Directives [...] were consensually agreed upon. Care Teams Service Station Operator Relationship Specialty Start Date End Date Igor Mcconnell DO [address] [place] [address] PCP - General Internal Medicine 02/12/24 documented as of this encounter
--- OUTSIDE RECORDS SUMMARY | 2024-08-26 02:36 | External Medical Summary | Summary of Care ---
Author Name Unknown Organization [facility] Address [address] [facility] [place] [address] Phone [phone] Care Team Providers Care Asbestos Cement Sheet Supervisor Name Role Phone Igor Mcconnell DO Primary Care Provider [phone] Reason for Visit * Reason Onset Date Comments [facility]: Maintenance 05/01/2024 Encounter Details Date Type Department Care Team (Late st Contact Info) Description 05/01/2024 12:30 PM EDT Scheduled Telephone [facility], [facility] [address] [facility] [place] [address] [facility], Nurse [facility] [address] [facility] [place] [address] Allergies Active Allergy Reactions Criticality Noted Date Comments Metolazone Renal complications 11/10/2023 Note prior DTP with metolazone resulted in acute renal failure Other Allergy (See Comments) Rash Low 10/13/2022 1+ cocamidopropyl betaine Sglt2 Inhibitors Other (Please comment) High 09/04/2020 Genital infection Sulfa Antibiotics Rash 10/15/2016 documented as of this encounter (statuses as of 05/01/2024) Medications Medication Sig Dispensed Refills Start Date [...] DX: E11.9 300 Strip 3 09/23/2023 Active Omeprazole 20 MG Oral Capsule Delayed Release (PriLOSEC) TAKE 1 CAPSULE BY MOUTH IN THE MORNING AND 1 CAPSULE BEFORE BEDTIME 30 MINUTES BEFORE A MEAL 180 Capsule 1 10/28/2023 5 Active Ondansetron 4 MG Oral Tablet Disintegrating [...] If no improvement on day 3, contact [facility] for possible home visit 1 [...] TIMES DAILY 500 Each 3 04/18/2024 Active Njbru-0-mspc Ethyl Esters 1 GM Oral Capsule (Lovaza) [...] 1 week. 100 Tablet 5 04/18/2024 Active documented as of this encounter (statuses as of 05/01/2024) Active Problems Patient Care Coordination No te Formatting of this note migh t be different from the original. Heart Failure Self-Management and Exacerbation Plan "RED FLAG" HF Symptoms: Leg Swelling Abdominal Bloating Increased dyspnea on exertion Increased shortness of breath at rest Orthopnea Remote Patient Monitoring Vendor: [facility] Device(s): Connected Scale [...] in the Comments) Remote Patient Monitoring Vendor: [employer] Device(s): Connected Scale Self - Management Plan [...] 08/18/2017 Last Assessment & Plan: Continues on [employer] 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 repatha History of [...] as of this encounter (statuses as of 05/01/2024) Resolved Problems Problem Noted Date Diagnosed Date [...] as of this encounter (statuses as of 05/01/2024) Immunizations Name Administration Dates Next Due COVID-19 mRNA, LNP-s, No Pre serve, 2-Dose Series (Moderna) 12/10/2020,11/12/2020 Hepatitis B, 20+ yrs 01/04/2018,08/03/2017,07/03 Pneumococcal Conjugate Vacci ne, 20-valent ([id number]) 06/09/2022 Pneumococcal Polysaccharide PPV23 (Pneumovax) 03/06/2020 RSV [...] money to get more. Never true 08/05/2023 Childcare Answer Date Recorded Do you feel overwhelmed with taking care of a child, family member or friend? No 08/05/2023 Does your family need help f inding childcare? (Household - for ages 0-17 years) Not on file 08/05/2023 Clothing Answer Date Recorded Have you been unable to get clothing when it was really needed? No 08/05/2023 Is your family able to get c lothes or diapers when needed? (Household - for ages 0-17 years) Not on file 08/05/2023 Personal Safety Answer Date Recorded Do you feel unsafe or have concerns for your saf ety? No 08/05/2023 Do you have concerns for you r family's safety? (Household - for ages 0-17 years) Not on file 08/05/2023 Utilities Answer Date Recorded Do you have trouble paying y our heating, water, or electric bill? No 08/05/2023 Is your family able to pay t he heat, water, or electric bill? (Household - for ages 0-17 years) Not on file 08/05/2023 Does your family have access to good internet? (Household - for ages 0-17 years) Not on file 08/05/2023 Employment Status Answer Date Recorded Are you unemployed or without regular income? No 08/05/2023 Does the household have a [facility] source of income? (Household - for ages 0-17 years) Not on file 08/05/2023 Social Connections Answer Date Recorded How often do you feel lonely or isolated from th ose around you? Never 08/05/2023 Financial Resource Strain Answer Date R ecorded Do you have any trouble payi ng for your medications, or do you think you might in the future? No 08/05/2023 Does your family have troubl e paying for medicine? (Household - for ages 0-17 years) Not on file 08/05/2023 Transportation Needs Answer Date Record ed READ ONLY Do you have troubl e getting a ride to medical visits or work? Never True 08/05/2023 Does your family have a hard time getting a ride to doctors visits? (Household - for ages 0-17 years) Not on file 08/05/2023 Has lack of transportation k ept you from medical appointments, meetings, work, or from getting things needed for daily living? Check all that apply. (Adult - for ages 18 years and over) Not on file 08/05/2023 Do you (or your family) have trouble finding or paying for a ride (transportation)? (Household - for ages 0-17 years) Not on file 08/05/2023 Housing Stability Answer Date Recorded Do you currently live in a s helter or have no steady place to sleep at night? No 08/05/2023 READ ONLY Do you think you a re at risk of becoming homeless? No 08/05/2023 Does your family worry about paying for your home or becoming homeless? (Household - for ages 0-17 years) Not on file 0 08/05/2023 Are you homeless or worried that you might be in the future? (Adult - for ages 18 years and over) Not on file Are you (or your family) edgar eless or worried that you might be in the future? (Household - for ages 0-17 years) Not on file Food Insecurity Answer Date Recorded Do you need food for this week? No 08/05/2023 Are you able to get enough f ood for your family? (Household - for ages 0-17 years) Not on file 08/05/2023 Does your family need food t his week? (Household - for ages 0-17 years) Not on file 08/05/2023 Do you always have enough fo od for your family? (Household - for ages 0-17 years) Not on file 08/05/2023 Sex and Gender Information Value Date Recorded Sex Assigned at Male 12/06/2018 8:36 AM EDT Gender Identity Male 12/06/2018 8:36 AM EDT Sexual Orientation Straight 12/06/2018 8: 36 AM EDT Job Start Date Occupation Industry Not on file Not on file Not on file documented as of this encounter Miscellaneous Notes * Telephone Encounter - Mary Jane Moser RN - 05/01/2024 2:41 PM EDT Images from the original note were not included. [facility] Telephonic Nurse Follow-Up Call [facility] Subprogram: Focused Care Management (3-9 months) Follow Up Call Type: Weekend Call Acute issue requiring follow-up call: Remote Patient Monitoring Trigger Objective: 03/29/2024 2:16 PM 03/16/2024 2:50 PM 03/11/2024 8:19 AM 03/03/2024 3:04 PM 03/01/2024 2:23 PM VITALS ACROSS ENCOUNTERS BP 132/58 124/60 122/68 130/54 120/60 Pulse 72 72 62 67 70 Weight 124.2 kg 130.6 kg 132.2 kg 130.6 kg BMI 39.05 BMI 37.15 kg/m2 39.06 kg/m2 39.53 kg/m2 39.06 kg/m2 Remote Patient Monitoring: AMC Scale: x Oxygen Needs: NO supplemental oxygen needs identified DME Needs: NO DME needs identified Medications: Current DTP: Other: Patient did take Metolazone 2.5 mg this AM due to weight up > 3 lbs 1 day Subjective: Condition Status: No change in symptoms Current Concerns: Patient reports slight SOB, not too bad Did take the Metolazone this AM, has not noticed an increase in urine output, but that usually doesn't happen until day after taking it Aware to watch fluid intake, avoid salt, call GA for worsening SOB, edema noted, abd bloating, etc. Or if weight not down tomorrow Am, Disposition: Issue resolved. All appropriate follow up scheduled. Future Visits Scheduled: Future Appointments-next 60 days Date/Time Provider Specialty Dept Phone 05/02/2024 2:30 PM Love Stevens RN [facility] [phone] 05/11/2024 9:20 AM [facility] Arrive at: Patient's Home [phone] 05/30/2024 1:00 PM [place] Pharmacist Cardiology [facility] Arrive at: Patient's Home [phone] 05/30/2024 2:20 PM (Arrive by 2:05 PM) Shivani Magallon MD Nephrology [phone] 05/31/2024 3:30 PM Mery Calderon RDN [facility] [phone] 07/01/2024 2:20 PM (Arrive by 2:05 PM) Igor Mcconnell DO Family Medicine [phone] 08/08/2024 9:30 AM [place], Nurse [facility] [phone] 10/27/2024 1:00 PM (Arrive by 12:45 PM) Lindsey Sheikh CRNP Sleep Disorders [phone] Mary Jane Moser, RN documented in this encounter Plan of Treatment Upcoming Encounters Date Type Department Care Team (Late st Contact Info) Description 05/02/2024 2:30 PM EDT Home Visit [facility], [facility] [address] [facility] [place] [address] Love Stevens, RN [address] [facility] [place] [address] 05/11/2024 9:20 AM EST Telemedicine Pharmacy, [address] [place] [address] [place] [address] 05/30/2024 1:00 PM EST Telemedicine Cardiology [facility], [place] [address] [place] [address] [place] [address], Pharmacist Cardiology [facility] [address] [place] [address] 05/30/2024 2:20 PM EST Office Visit Nephrology [address] [place] [address] Shivani Magallon MD [address] [place] [address], [place] [address] 05/31/2024 3:30 PM EST Scheduled Telephone [facility], [facility] [address] [facility] [place] [address] Mery Calderon RDN [address] [facility] [place] [address] 06/13/2024 11:15 AM EST Hospital Encounter ENDO [facility], Endoscopy Room [facility] [address] [place] [phone] José Miguel Sifuentes MD [address] [place] [address] 06/13/2024 11:15 AM EST - 06/13/2024 11:45 AM EST Surgery ENDO [facility], Endoscopy Room [facility] [address] [place] [phone] José Miguel Sifuentes MD [address] [place] [address] COLONOSCOPY FLEXIBLE PROXIMAL DIAGNOSTIC 07/01/2024 2:20 PM EST Office Visit Family Practice [address] [place] [address] [address] [place] [address] Igor Mcconnell DO 293 [facility] [place] [address] 08/08/2024 9:30 AM EST Nurse Only Ancillary [address] [place] [address] [place], Nurse [address] [place] [address] 10/27/2024 1:00 PM EDT Office Visit Sleep Disorders Ctr [facility] [address] [place] [phone] Lindsey Sheikh CRNP [address] [place] [address] Scheduled Procedures Name Priority Associated Diagnoses Date/Ti [...] 03/11/2025 03/11/2024, 02/04, 02/12/2024, Additional history exists O2 ASSESSMENT COMPLETED IN PAST YEAR FOR COPD 03/29/2025 03/29/2024 Diabetic Eye Exam 04/11/2025 04/11/2024, , 03/23/2024, Additional history exists Arreola's Esophagus Surveilance 06/16/2025 [...] this encounter Medical Devices Implanted Type Area Hoop Maker Machine Device Identifier Shelf Expiration Date Model / Serial / Lot Lens Intraoc 21.0 - [id number] - [id number] Implanted:Qty: 1 on 01/22/2017 by Cheko Mcnamara MD at OR [facility] Right: Eye [employer] 08/05/2021 [id number] / [id number] / [id number] Lens Intraoc 21.5 - [id number] - [id number] Implanted:Qty: 1 on 02/03/2017 by Cheko Mcnamara MD at OR [facility] Left: Eye BAUSCH [employer] LOMB 09/02/2021 [id number] / [id number] / [id number] documented as of this encounter Advance Directives [...] and were consensually agreed upon. Care Teams Asbestos Cement Sheet Supervisor Relationship Specialty Start Date End Date Igor Mcconnell DO [address] [place] [address] PCP - General Internal Medicine 02/12/24 documented as of this encounter
--- OUTSIDE RECORDS SUMMARY | 2024-08-26 02:36 | External Medical Summary | Summary of Care ---
Author Name Unknown Organization [facility] Address [address] [facility] [address] Phone [phone] Care Team Providers Care Dispute Resolution Specialist Name Role Phone FaizachuIgor DO Primary Care Provider [phone] Reason for Visit * Reason Onset Date Comments Outpatient Testing 04/27/2024 Encounter Details Date Type Department Care Team (Late st Contact Info) Description 04/27/2024 Telephone Nephrology, [facility] [address] [facility] [place] [address] Shivani Magallon MD [address] [facility] [place] [address] Outpatient Testing Allergies Active Allergy Reactions Criticality Noted Date Comments Metolazone Renal complications 11/10/2023 Note prior DTP with metolazone resulted in acute renal failure Other Allergy (See Comments) Rash Low 10/13/2022 1+ cocamidopropyl betaine Sglt2 Inhibitors Other (Please comment) High 09/04/2020 Genital infection Sulfa Antibiotics Rash 10/15/2016 documented as of this encounter (statuses as of 04/27/2024) Medications Medication Sig Dispensed Refills Start Date [...] system for possible home visit 1 Each 03/24/2024 [...] [facility]) USE TO INJECT INSULINS 5 TIMES DAILY 500 Each 3 04/18/2024 Active Eyqmr-5-cpao Ethyl Esters 1 GM Oral Capsule (Lovaza) [...] as of this encounter (statuses as of 04/27/2024) Active Problems Patient Care Coordination No te [...] in the Comments) Remote Patient Monitoring Vendor: [facility] [...] as of this encounter (statuses as of 04/27/2024) Resolved Problems Problem Noted Date Diagnosed Date [...] as of this encounter (statuses as of 04/27/2024) Immunizations Name Administration Dates Next Due COVID-19 mRNA, LNP-s, No Pre serve, 2-Dose Series (Moderna) 12/10/2020,11/12/2020 Hepatitis B, 20+ yrs 01/04/2018,08/03/2017,07/03 Pneumococcal Conjugate Vacci ne, 20-valent ([id number]) 06/09/2022 Pneumococcal Polysaccharide PPV23 (Pneumovax) 03/06/2020 RSV [...] No 08/05/2023 Does the household have a [facility] source [facility] income? (Household - for [...] Telephone Encounter - Leora Beth RN - 04/27/2024 2:05 PM EDT Message sent via Prylos. CKD labs ordered per protocol. documented in this encounter Plan of Treatment Upcoming Encounters Date Type Department Care Team (Late st Contact Info) Description 05/30/2024 1:00 PM EST Telemedicine Cardiology [facility] [place] [address] [place], [place] [id number] [facility], Pharmacist Cardiology Hf [address] [place], [place] [phone] 05/30/2024 2:20 PM EST Office Visit Nephrology [address] [place] [address] Shivani Magallon MD [address] [place] [address] 05/31/2024 3:30 PM EST Scheduled Telephone [facility], [facility] [address] [facility] [place] [address] Kvng Merykolby Lang, RDN [address] [facility] [place] [address] 06/13/2024 11:15 AM EST Hospital Encounter ENDO [facility], Endoscopy Room [facility] 132 [facility] [place] [phone] José Miguel [facility]ifuentes MD [address] [facility] [address] 06/13/2024 11:15 AM EST - 06/13/2024 11:45 AM EST Surgery ENDO [facility], Endoscopy Room [facility] 132 [facility] [place] [phone] José Miguel Sifuentes MD 132 [facility] [place] [address] COLONOSCOPY FLEXIBLE PROXIMAL DIAGNOSTIC 07/01/2024 2:20 PM EST Office Visit Family Practice [address] [place] [address], [place] [address] [facility] [place] [address] Igor Mcconnell, 293 [facility] [place] [address] 08/08/2024 9:30 AM EST Nurse Only Ancillary [address] [place] [address] [place], Nurse [address] [place] [address] 10/27/2024 1:00 PM EDT Office Visit Sleep Disorders Ctr [facility] [address] [place] [phone] Lindsey Sheikh CRNP [address] [place] [address] Scheduled Orders Name Type Priority Associated Diagnoses Orde r Schedule 25-HYDROXY VITAMIN D Lab STAT 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) Vitamin D deficiency Expected: 04/27/2024, Expires: 04/27/2025 ALBUMIN / CREATININE RATIO, URINE Lab STAT 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) Expected: 04/27/2024, Expires: 04/27/2025 HGB Lab STAT 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) Expected: 04/27/2024, Expires: 04/27/2025 FERRITIN Lab STAT 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) Expected: 04/27/2024, Expires: 04/27/2025 IRON SCREEN, INCLUDING TIBC Lab STAT 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) Expected: 04/27/2024, Expires: 04/27/2025 PTH Lab STAT 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) Expected: 04/27/2024, Expires: 04/27/2025 RENAL FUNCTION PANEL Lab STAT 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) Expected: 04/27/2024, Expires: 04/27/2025 Scheduled Procedures Name Priority Associated Diagnoses Date/Ti [...] this encounter Medical Devices Implanted Type Area Health Information Management Director Device Identifier Shelf Expiration Date Model / Serial / Lot Lens Intraoc 21.0 - [id number] - [id number] Implanted:Qty: 1 on 01/22/2017 by Cheko Mcnamara MD at OR [facility] Right: Eye BA[employer]CH [employer] LOM[employer] 08/05/2021 [id number] / [id number] / [id number] Lens Intraoc 21.5 - [id number] - [id number] Implanted:Qty: 1 on 02/03/2017 by Cheko Mcnamara MD at OR [facility] Left: Eye BAUSCH & LOMB 09/02/2021 [id number] / [id number] / [id number] documented as of this encounter Visit Diagnoses Diagnosis 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)- Primary Vitamin D deficiency Unspecified vitamin D deficiency [...] and were consensually agreed upon. Care Teams Dispute Resolution Specialist Relationship Specialty Start Date End Date Igor Mcconnell DO [address] [facility] [place] [address] PCP - General Internal Medicine 02/12/24 documented as of this encounter
--- OUTSIDE RECORDS SUMMARY | 2024-08-26 02:36 | External Medical Summary | Summary of Care ---
Author Name Unknown Organization [facility] Address [address] [facility] [place] [address] Phone [phone] Care Team Providers Care Casting And Pasting Supervisor Name Role Phone Igor Mcconnell DO Primary Care Provider [phone] Reason for Visit * Reason Onset Date Comments [facility]: Maintenance 04/24/2024 Encounter Details Date Type Department Care Team (Late st Contact Info) Description 04/24/2024 10:00 AM EDT Scheduled Telephone [facility], [facility] [address] [place] [address] [facility], Nurse [facility] [address] [place] [address] Allergies Active Allergy Reactions Criticality Noted Date Comments Metolazone Renal complications 11/10/2023 Note prior DTP with metolazone resulted in acute renal failure Other Allergy (See Comments) Rash Low 10/13/2022 1+ cocamidopropyl betaine Sglt2 Inhibitors Other (Please comment) High 09/04/2020 Genital infection Sulfa Antibiotics Rash 10/15/2016 documented as of this encounter (statuses as of 04/24/2024) Medications Medication Sig Dispensed Refills Start Date [...] disease, with long-term current use of insulin ([facility]) Inject 2 mg under the [...] hemoglobin A1c goal of less than 7.0% ([facility]) INJECT UNDER THE SKIN 20 UNITS AT BREAKFAST, 26 UNITS AT LUNCH, 38 UNITS WITH DINNER PLUS CORRECTION PER [facility] OR DIRECTED UP TO 120 UNITS PER DAY 120 mL 3 03/21/2024 Active DIURETIC TITRATION PLAN If no improvement on day 3, contact [facility] for possible home visit 1 Each 03/24/2024 [...] hemoglobin A1c goal of less than 7.0% ([facility]) USE TO INJECT INSULINS 5 TIMES DAILY 500 Each 3 04/18/2024 Active Giaxf-3-eyur Ethyl Esters 1 GM Oral Capsule (Lovaza) [...] as of this encounter (statuses as of 04/24/2024) Active Problems Patient Care Coordination No te [...] in the Comments) Remote Patient Monitoring Vendor: [employer] Device(s): Connected Scale Self - Management Plan [...] 08/18/2017 Last Assessment & Plan: Continues on WebLayersaza 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 repatha History of [...] as of this encounter (statuses as of 04/24/2024) Resolved Problems Problem Noted Date Diagnosed Date [...] as of this encounter (statuses as of 04/24/2024) Immunizations Name Administration Dates Next Due COVID-19 mRNA, LNP-s, No Pre serve, 2-Dose Series (Moderna) 12/10/2020,11/12/2020 Hepatitis B, 20+ yrs 01/04/2018,08/03/2017,07/03 Pneumococcal Conjugate Vacci ne, 20-valent ([id number]) 06/09/2022 Pneumococcal Polysaccharide PPV23 (Pneumovax) 03/06/2020 RSV [...] No 08/05/2023 Does the household have a [facility] source of income? (Household - [...] Telephone Encounter - Cassandra Rivero RN - 04/24/2024 3:29 PM EDT Images from the original note were not included. PC to pt regarding weight and trigger. Pt reports he took Metolozone today. He is not SOB. He is out at a clkub with friends watching football. Advised to watch his intake. Continue to monitor. Cassandra Rivero RN [facility] Intake [phone] documented in this encounter Plan of Treatment Upcoming Encounters Date Type Department Care Team (Late st Contact Info) Description 05/09/2024 1:40 PM EST Office Visit Nephrology, Susan Palacios [address] [place] [address] Shivani Magallon MD 200 [facility] [place] [address] 05/30/2024 1:00 PM EST Telemedicine Cardiology [facility] [place] [address] [place] [address] [facility], Pharmacist Cardiology Hf [address] [place], [place] [id number] 05/31/2024 3:30 PM EST Scheduled Telephone [facility], [facility] [address] [facility] [place] [address] Mery Calderon RDN [address] [facility] [place] [address] 06/13/2024 11:15 AM EST Hospital Encounter ENDO OSSC, Endoscopy Room [facility] [address] [place] [phone] José Miguel Sifuentes MD [address] [place] [address] 06/13/2024 11:15 AM EST - 06/13/2024 11:45 AM EST Surgery ENDO OSS[facility], Endoscopy Room [facility] [address] [place] [phone] José Miguel Sifuentes MD [address] [facility] [place] [address] COLONOSCOPY FLEXIBLE PROXIMAL DIAGNOSTIC 07/01/2024 2:20 PM EST Office Visit Family Practice [address] [facility], [place] 293 [place] [address] Igor Mcconnell, 293 [place] [address] 08/08/2024 9:30 AM EST Nurse Only Ancillary Lazaro Hyde [address] [place] [address] [facility], Nurse [address] [place] [address] 10/27/2024 1:00 PM EDT Office Visit Sleep Disorders Ctr Maximiliano Vega [place] [address] [place] [phone] Lindsey Sheikh CRNP [address] [place] [address] Scheduled Procedures Name Priority Associated Diagnoses Date/Ti [...] this encounter Medical Devices Implanted Type Area District Sales Manager Device Identifier Shelf Expiration Date Model / Serial / Lot Lens Intraoc 21.0 - [id number] - [id number] Implanted:Qty: 1 on 01/22/2017 by Cheko Mcnamara MD at OR [facility] Right: Eye BAUSCH & LOMB 08/05/2021 [id number] / [id number] / [id number] Lens Intraoc 21.5 - [id number] - [id number] Implanted:Qty: 1 on 02/03/2017 by Cheko Mcnamara MD at OR [facility] Left: Eye BAUSCH & LOMB 09/02/2021 [id number] / [id number] / [id number] documented as of this encounter Advance Directives [...] and were consensually agreed upon. Care Teams Casting And Pasting Supervisor Relationship Specialty Start Date End Date Igor Mcconnell DO [address] [facility] [place] [address] PCP - General Internal Medicine 02/12/24 documented as of this encounter
--- OUTSIDE RECORDS SUMMARY | 2024-08-26 02:37 | External Medical Summary | Summary of Care ---
Author Name Unknown Organization [facility] Address [address] [facility] [place] [address] Phone [phone] Care Team Providers Care Marine Rigger Name Role Phone Igor Mcconnell DO Primary Care Provider [phone] Reason for Visit * Reason Onset Date Comments [facility]: Maintenance 04/22/2024 Encounter Details Date Type Department Care Team (Late st Contact Info) Description 04/22/2024 Telephone [facility], [facility] [address] [facility] [place] [address] Shruti Marquez CORE ASSEMBLY SUPERVISOR [address] [facility] [place] [address] [facility]: Maintenance Allergies Active Allergy Reactions Criticality Noted Date Comments Metolazone Renal complications 11/10/2023 Note prior DTP with metolazone resulted in acute renal failure Other Allergy (See Comments) Rash Low 10/13/2022 1+ cocamidopropyl betaine Sglt2 Inhibitors Other (Please comment) High 09/04/2020 Genital infection Sulfa Antibiotics Rash 10/15/2016 documented as of this encounter (statuses as of 04/22/2024) Medications Medication Sig Dispensed Refills Start Date [...] less than 7.0% ([facility]) INJECT UNDER THE SKIN 20 [...] TIMES DAILY 500 Each 3 04/18/2024 Active Gdoox-3-xljh Ethyl Esters 1 GM Oral Capsule (Lovaza) [...] as of this encounter (statuses as of 04/22/2024) Active Problems Patient Care Coordination No te Formatting of this note migh t be different from the original. Heart Failure Self-Management and Exacerbation Plan "RED FLAG" HF Symptoms: Leg Swelling Abdominal Bloating Increased dyspnea on exertion Increased shortness of breath at rest Orthopnea Remote Patient Monitoring Vendor: [facility] Device(s): Connected Scale [...] in the Comments) Remote Patient Monitoring Vendor: [employer] Device(s): Connected Scale Self - Management Plan [...] 08/18/2017 Last Assessment & Plan: Continues on Blueflyaza 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 repatha History of [...] as of this encounter (statuses as of 04/22/2024) Resolved Problems Problem Noted Date Diagnosed Date [...] as of this encounter (statuses as of 04/22/2024) Immunizations Name Administration Dates Next Due COVID-19 mRNA, LNP-s, No Pre serve, 2-Dose Series (Moderna) 12/10/2020,11/12/2020 Hepatitis B, 20+ yrs 01/04/2018,08/03/2017,07/03 Pneumococcal Conjugate Vacci ne, 20-valent ([id number]) 06/09/2022 Pneumococcal Polysaccharide PPV23 (Pneumovax) 03/06/2020 RSV [...] No 08/05/2023 Does the household have a [facility] source of income? (Household - for [...] Miscellaneous Notes * Telephone Encounter - Shruti Marquez, ROSCOE - 04/22/2024 9:18 AM EDT Images from the original note were not included. [facility] Remote Patient Monitoring Able to contact patient: Trigger type: Abnormal reading(s): AMC (Advanced Monitored Caregiving): Scale: Trigger weight: 275.7 lbs; weight increased 5.3 lbs in 2 day(s) Trigger priority per AMC: high Patient takes diuretic medication: Yes, reviewed current diuretic use: Name of medication: torsemide Dose: 80 mg Frequency: BID Symptom review: Denies new/worsening Diet Reviewed: Yes. Patient has had any foods high in sodium: No Fluid Intake Reviewed: Yes. Patient is on a fluid restriction: Yes, restriction amount in milliliters or liters: 2L Adherent to restriction: Yes Self-Management Plan Reviewed: Red Flags: Increase edema BLE Sob above baseline Weight gain 2lbs/24 hours- 3-5lbs in one week DTP (Diuretic Titration Protocol): Describe DTP: Name of medication(s): metolazone Dose: 2.5 mg Frequency: x 2 days Used in past 2 weeks: No Risk assignment recommendation: Moderate risk findings (check as applicable): [x] Moderate trigger priority on AMC [] Confirmed tympanic equivalent temperature 100.4-101.9 F onehour post administration of antipyretic [] Weight gain of 2.1-4.9 lbs over 1-2 days [] Confirmed new sustained resting HR greater than 105 WITHOUT symptoms [x] Weight gain of greater than or [...] Additional risk selection justification: Spoke with pt denies increased SOB, - edema, - abdominal fullness, - cough/congestion. He denies any missed doses of medication, adherent to sodium/fluid restriction. He did take metolazone this morning due to wt increase. F/U call scheduled for tomorrow. Overall risk and identified plan: Moderate risk: Next day follow up call scheduled Route to RNCM (Registered Nurse Sql Server Architect) and Advance Practitioner documented in this encounter Plan of Treatment Upcoming Encounters Date Type Department Care Team (Late st Contact Info) Description 04/23/2024 11:45 AM EDT Scheduled Telephone [facility], [facility] 132 [facility] [place] [address] [facility], Nurse [facility] 132 [facility] [place] [address] 05/09/2024 1:40 PM EST Office Visit Nephrology, [facility] 200 [place] [address] Shivani Magallon MD 200 [facility] [place] [address] 05/30/2024 1:00 PM EST Telemedicine Cardiology [facility] [place] [address] [place] [address] [place] [address], Pharmacist Cardiology [facility] [address] [place] [address] 05/31/2024 3:30 PM EST Scheduled Telephone [facility], [facility] [address] [facility] [place] [address] Mery Calderon RDN [address] [facility] [place] [address] 06/13/2024 11:15 AM EST Hospital Encounter ENDO [facility], Endoscopy Room [facility] 132 [facility] [place] [phone] José Miguel Sifuentes MD 132 [facility] [place] [address] 06/13/2024 11:15 AM EST - 06/13/2024 11:45 AM EST Surgery ENDO [facility], Endoscopy Room [facility] [address] [place] [phone] José Miguel Sifuentes MD [address] [place] [address] COLONOSCOPY FLEXIBLE PROXIMAL DIAGNOSTIC 07/01/2024 2:20 PM EST Office Visit Family Practice [address] [place] [address] 293 [place] [address] Igor Mcconnell, 293 [place] [address] 08/08/2024 9:30 AM EST Nurse Only Ancillary [address] [place] [address] [place], Nurse [address] [place] [address] 10/27/2024 1:00 PM EDT Office Visit Sleep Disorders Ctr [facility] [address] [place] [phone] Lindsey Sheikh CRNP 132 [facility] [place] [address] Scheduled Procedures Name Priority Associated Diagnoses Date/Ti [...] this encounter Medical Devices Implanted Type Area Therapy Coordinator Device Identifier Shelf Expiration Date Model / Serial / Lot Lens Intraoc 21.0 - [id number] - [id number] Implanted:Qty: 1 on 01/22/2017 by Cheko Mcnamara MD at OR [facility] Right: Eye BAUSCH & LOMB 08/05/2021 [id number] / [id number] / [id number] Lens Intraoc 21.5 - [id number] - [id number] Implanted:Qty: 1 on 02/03/2017 by Cheko Mcnamara MD at OR [facility] Left: Eye BAUSCH & LOMB 09/02/2021 [id number] / [id number] / [id number] documented as of this encounter Advance Directives [...] and were consensually agreed upon. Care Teams Marine Rigger Relationship Specialty Start Date End Date Igor Mcconnell DO [address] [place] [address] PCP - General Internal Medicine 02/12/24 documented as of this encounter
--- OUTSIDE RECORDS SUMMARY | 2024-08-26 02:37 | External Medical Summary | Summary of Care ---
Author Name Unknown Organization [facility] Address [address] [facility] [place] [address] Phone [phone] Care Team Providers Care Manager Biologics Name Role Phone Igor Mcconnell DO Primary Care Provider [phone] Reason for Visit * Reason Onset Date Comments [facility]: Maintenance 04/23/2024 Encounter Details Date Type Department Care Team (Late st Contact Info) Description 04/23/2024 11:45 AM EDT Scheduled Telephone [facility], [facility] 132 [facility] [place] [address] [facility], Nurse [facility] 132 [facility] [place] [address] Allergies Active Allergy Reactions Criticality Noted Date Comments Metolazone Renal complications 11/10/2023 Note prior DTP with metolazone resulted in acute renal failure Other Allergy (See Comments) Rash Low 10/13/2022 1+ cocamidopropyl betaine Sglt2 Inhibitors Other (Please comment) High 09/04/2020 Genital infection Sulfa Antibiotics Rash 10/15/2016 documented as of this encounter (statuses as of 04/23/2024) Medications Medication Sig Dispensed Refills Start Date [...] long-term current use of insulin ([facility]) Inject 2 mg under the [...] goal of less than 7.0% ([facility]) INJECT UNDER THE SKIN 20 UNITS AT BREAKFAST, 26 UNITS AT LUNCH, 38 UNITS WITH DINNER PLUS CORRECTION PER [facility] OR DIRECTED UP TO 120 UNITS PER DAY 120 mL 3 03/21/2024 Active DIURETIC TITRATION PLAN If no improvement on day 3, contact [facility] for possible home visit 1 [...] goal of less than 7.0% ([facility]) USE TO INJECT INSULINS 5 TIMES DAILY 500 Each 3 04/18/2024 Active Wbzmd-3-yjfk Ethyl Esters 1 GM Oral Capsule (Lovaza) [...] as of this encounter (statuses as of 04/23/2024) Active Problems Patient Care Coordination No te [...] in the Comments) Remote Patient Monitoring Vendor: [employer] Device(s): Connected Scale Self - Management Plan [...] 08/18/2017 Last Assessment & Plan: Continues on KIXEYEaza 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 repatha History of [...] as of this encounter (statuses as of 04/23/2024) Resolved Problems Problem Noted Date Diagnosed Date [...] as of this encounter (statuses as of 04/23/2024) Immunizations Name Administration Dates Next Due COVID-19 mRNA, LNP-s, No Pre serve, 2-Dose Series (Moderna) 12/10/2020,11/12/2020 Hepatitis B, 20+ yrs 01/04/2018,08/03/2017,07/03 Pneumococcal Conjugate Vacci ne, 20-valent ([id number]) 06/09/2022 Pneumococcal Polysaccharide PPV23 (Pneumovax) 03/06/2020 RSV [...] Telephone Encounter - Carolina Carey RN - 04/23/2024 12:57 PM EDT Images from the original note were not included. [facility] Telephonic Nurse Follow-Up Call [facility] Subprogram: Focused Care Management (3-9 months) Follow Up Call Type: Weekend Call Acute issue requiring follow-up call: Heart Failure Exacerbation F/U AMC wt metolazone 04/22 Objective: 03/29/2024 2:16 PM 03/16/2024 2:50 PM 03/11/2024 8:19 AM 03/03/2024 3:04 PM 03/01/2024 2:23 PM VITALS ACROSS ENCOUNTERS BP 132/58 124/60 122/68 130/54 120/60 Pulse 72 72 62 67 70 Weight 124.2 kg 130.6 kg 132.2 kg 130.6 kg BMI 39.05 BMI 37.15 kg/m2 39.06 kg/m2 39.53 kg/m2 39.06 kg/m2 Remote Patient Monitoring: [facility] Scale: Oxygen Needs: NO [...] at baseline Current Concerns: Spoke with Tony, reports feeling fine, no symptoms, took Metolazone 2.5 mg yesterday, weight loss of 0.7 lbs. Following EDWIN diet and fluid restrictions daily. Disposition: Routed to [facility] and/or [facility] Care Team for further advice and Follow up call scheduled for tomorrow with [facility] National Sales Director Future Visits Scheduled: Future Appointments-next 60 days Date/Time Provider Specialty Dept Phone 05/09/2024 1:40 PM (Arrive by 1:25 PM) Shivnai Magallon MD Nephrology [phone] 05/30/2024 1:00 PM [place], Pharmacist Cardiology Hf Cardiology Arrive at: Patient's Home [phone] 05/31/2024 3:30 PM Mery Calderon RDN [facility] at [facility] [phone] 07/01/2024 2:20 PM (Arrive by 2:05 PM) Igor Mcconnell DO Family Medicine [phone] 08/08/2024 9:30 AM [place] Nurse Annual Wellness Ancillary [phone] 10/27/2024 1:00 PM (Arrive by 12:45 PM) Lindsey Sheikh CRNP Sleep Disorders [phone] Carolina Carey RN documented in this encounter Plan of Treatment Upcoming Encounters Date Type Department Care Team (Late st Contact Info) Description 04/24/2024 10:00 AM EDT Scheduled Telephone [facility], [place] [facility] [address] [place] [address] Region, Nurse [facility] [address] [place] [address] 05/09/2024 1:40 PM EST Office Visit Nephrology, [facility] 200 [facility] [place] [address] Shivani Magallon MD 200 [facility] [place] [address] 05/30/2024 1:00 PM EST Telemedicine Cardiology [facility] [place] [address] [place] [address] [place] [address], Pharmacist Card[facility] [address] [place] [address] 05/31/2024 3:30 PM EST Scheduled Telephone [facility], [facility] [address] [facility] [place] [address] Mery Calderon, RDN [address] [facility] [address] 06/13/2024 11:15 AM EST Hospital Encounter ENDO OSS[facility], Endoscopy Room [facility] [address] [place] [phone] José Miguel Sifuentes MD [address] [place] [address] 06/13/2024 11:15 AM EST - 06/13/2024 11:45 AM EST Surgery ENDO O[facility], Endoscopy Room [facility] [address] [place] [phone] José Miguel Sifuentes MD [address] [place] [address] COLONOSCOPY FLEXIBLE PROXIMAL DIAGNOSTIC 07/01/2024 2:20 PM EST Office Visit Family Practice [address] [place] [address], [place] 293 [place] [address] Igor Mcconnell, 293 [facility] [place] [address] 08/08/2024 9:30 AM EST Nurse Only Ancillary [address] [place] [address] [place], Nurse [address] [place] [address] 10/27/2024 1:00 PM EDT Office Visit Sleep Disorders Ctr [facility] 132 [facility] [place] [phone] Lindsey Sheikh CRNP 132 [facility] [place] [address] Scheduled Procedures Name Priority Associated Diagnoses Date/Ti [...] this encounter Medical Devices Implanted Type Area Recovery Auditor Device Identifier Shelf Expiration Date Model / Serial / Lot Lens Intraoc 21.0 - [id number] - [id number] Implanted:Qty: 1 on 01/22/2017 by Cheko Mcnamara MD at OR [facility] Right: Eye BAUSCH & LOMB 08/05/2021 [id number] / [id number] / [id number] Lens Intraoc 21.5 - [id number] - [id number] Implanted:Qty: 1 on 02/03/2017 by Cheko Mcnamara MD at OR [facility] Left: Eye BAUSCH & LOMB 09/02/2021 [id number] / [id number] / [id number] documented as of this encounter Advance Directives [...] were consensually agreed upon. Care Teams Manager Biologics Relationship Specialty Start Date End Date Igor Mcconnell DO [address] [place] [address] PCP - General Internal Medicine 02/12/24 documented as of this encounter
--- OUTSIDE RECORDS SUMMARY | 2024-08-26 02:37 | External Medical Summary | Summary of Care ---
Author Name Unknown Organization [facility] Address [address] [facility] [place] [address] Phone [phone] Care Team Providers Care Client Care Specialist Name Role Phone Igor Mcconnell DO Primary Care Provider [phone] Reason for Visit * Reason Onset Date Comments [facility]: Maintenance 04/22/2024 Encounter Details Date Type Department Care Team (Late st Contact Info) Description 04/22/2024 Telephone [facility], [facility] [address] [facility] [place] [address] Shruti Marquez TIME CLOCK INSPECTOR [address] [facility] [address] [facility]: Maintenance Allergies Active Allergy [...] 38 UNITS WITH DINNER PLUS CORRECTION [facility] OR DIRECTED UP TO 120 UNITS PER DAY 120 mL 3 03/21/2024 Active DIURETIC TITRATION PLAN If no improvement on day 3, contact [facility] for possible home visit 1 Each [...] TIMES DAILY 500 Each 3 04/18/2024 Active Zholk-8-mqzi Ethyl Esters 1 GM Oral Capsule (Lovaza) [...] at rest Orthopnea Remote Patient Monitoring Vendor: [facility] [...] in the Comments) Remote Patient Monitoring Vendor: [facility] Device(s): Connected Scale Self - Management Plan [...] 08/18/2017 Last Assessment & Plan: Continues on Quadriservaza 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 repatha History of [...] yrs 01/04/2018,08/03/2017,07/03 Pneumococcal Conjugate Vacci ne, 20-valent ([id number]) 06/09/2022 Pneumococcal Polysaccharide PPV23 (Pneumovax) 03/06/2020 RSV [...] No 08/05/2023 Does the household have a [facility] source of income? (Household - for ages [...] Telephone Encounter - Chilango Trujillo MD - 04/22/2024 10:47 AM EDT Noted. E * Telephone Encounter - Shruti Marquez LPN - 04/22/2024 9:18 AM EDT Images from [...] as applicable): [x] Moderate trigger priority on [facility] [] Confirmed tympanic equivalent [...] as applicable): [] High trigger priority on [facility] [] Confirmed tympanic equivalent [...] call scheduled Route to RNCM (Registered Nurse Pot Builder) and Advance Practitioner documented in this encounter Plan of Treatment Upcoming Encounters Date Type Department Care Team (Late st Contact Info) Description 04/23/2024 11:45 AM EDT Scheduled Telephone [facility], [facility] [address] [facility] [place] [address] [facility], Nurse [facility] [address] [facility] [place] [address] 05/09/2024 1:40 PM EST Office Visit Nephrology, [facility] 200 [place] [address] Shivani Magallon MD 200 [place] [address] 05/30/2024 1:00 PM EST Telemedicine Cardiology [facility] [address] [place] [address] [place] [address], Pharmacist Cardiology [facility] [address] [place] [address] 05/31/2024 3:30 PM EST Scheduled Telephone [facility], [facility] [address] [facility] [place] [address] Mery Calderon RDN [address] [facility] [place] [address] 06/13/2024 11:15 AM EST Hospital Encounter ENDO [facility], Endoscopy Room [facility] [address] [facility] [place] [phone] José Miguel Sifuentes MD [address] [place] [address] 06/13/2024 11:15 AM EST - 06/13/2024 11:45 AM EST Surgery ENDO [facility], Endoscopy Room [facility] [address] [place] [phone] José Miguel Sifuentes MD 132 [facility] [place] [address] COLONOSCOPY FLEXIBLE PROXIMAL DIAGNOSTIC 07/01/2024 2:20 PM EST Office Visit Family Practice [address] [place] [address] 293 [place] [address] Igor Mcconnell, 293 [place] [address] 08/08/2024 9:30 AM EST Nurse Only Ancillary [address] [place] [address] [place], Nurse [address] [place] [address] 10/27/2024 1:00 PM EDT Office Visit Sleep Disorders Ctr [facility] 132 [facility] [place] [phone] Lindsey Sheikh CRNP [address] [facility] [place] [address] Scheduled Procedures Name Priority Associated Diagnoses Date/Ti [...] this encounter Medical Devices Implanted Type Area Wastewater Supervisor Device Identifier Shelf Expiration Date Model / Serial / Lot Lens Intraoc 21.0 - [id number] - [id number] Implanted:Qty: 1 on 01/22/2017 by Cheko Mcnamara MD at OR [facility] Right: Eye BAUSCH [employer] LOMB 08/05/2021 [id number] / [id number] / [id number] Lens Intraoc 21.5 - [id number] - [id number] Implanted:Qty: 1 on 02/03/2017 by Cheko Mcnamara MD at OR [facility] Left: Eye BAUSCH & LOMB 09/02/2021 [id number] / [id number] / [id number] documented as of this encounter Advance Directives [...] were consensually agreed upon. Care Teams Client Care Specialist Relationship Specialty Start Date End Date Igor Mcconnell DO [address] [place] [address] PCP - General Internal Medicine 02/12/24 documented as of this encounter
--- OUTSIDE RECORDS SUMMARY | 2024-08-26 02:37 | External Medical Summary | Summary of Care ---
Author Name Unknown Organization [facility] Address [address] [place] [address] Phone [phone] Care Team Providers Care President And Chief Executive Officer Name Role Phone FaizachuIgor DO Primary Care Provider [phone] Reason for Visit * Reason Onset Date Comments Remote Patient Monitoring Alert 04/21/2024 Encounter Details Date Type Department Care Team (Late st Contact Info) Description 04/21/2024 Home Monitoring Care Coordination [address] [place] [address] Leona Eckert LPN HTN, goal below 130/80* Allergies Active Allergy Reactions Criticality Noted Date Comments Metolazone Renal complications 11/10/2023 Note prior DTP with metolazone resulted in acute renal failure Other Allergy (See Comments) Rash Low 10/13/2022 1+ cocamidopropyl betaine Sglt2 Inhibitors Other (Please comment) High 09/04/2020 Genital infection Sulfa Antibiotics Rash 10/15/2016 documented as of this encounter (statuses as of 04/21/2024) Medications Medication Sig Dispensed Refills Start Date [...] of less than 7.0% ([facility]) Use as directed every 14 days . [...] diabetes mellitus with hyperglycemia ([facility]) USE TO TEST BLOOD GLUCOSE 3 TIMES [...] use of insulin ([facility]) Inject 2 mg under the skin once [...] of less than 7.0% ([facility]) INJECT UNDER THE SKIN 20 UNITS AT [...] of less than 7.0% ([facility]) USE TO INJECT INSULINS 5 TIMES DAILY 500 Each 3 04/18/2024 Active Wkevw-6-lznu Ethyl Esters 1 GM Oral Capsule (Lovaza) [...] as of this encounter (statuses as of 04/21/2024) Active Problems Patient Care Coordination No te [...] as of this encounter (statuses as of 04/21/2024) Resolved Problems Problem Noted Date Diagnosed Date [...] as of this encounter (statuses as of 04/21/2024) Immunizations Name Administration Dates Next Due COVID-19 mRNA, LNP-s, No Pre serve, 2-Dose Series (Moderna) 12/10/2020,11/12/2020 Hepatitis B, 20+ yrs 01/04/2018,08/03/2017,07/03 Pneumococcal Conjugate Vacci ne, 20-valent ([id number]) 06/09/2022 Pneumococcal Polysaccharide PPV23 (Pneumovax) 03/06/2020 RSV [...] No 08/05/2023 Does the household have a re lar [...] this encounter Progress Notes * Clary Gregg, [facility] - 04/21/2024 2:24 PM EDT 04/14/24 04/15/24 16:11 04/16/24 20:26 04/17/24 20:31 04/18/24 16:12 04/19/24 16:51 04/20/24 04/21/24 10:10 Systolic BP 121 mm/Hg [1] 125 mm/Hg [1] 129 mm/Hg [1] 121 mm/Hg [1] 128 mm/Hg [1] 127 mm/Hg [1] 140mm/Hg [1] 130 mm/Hg [1] Diastolic BP 60 mm/Hg [1] 64 mm/Hg [1] 67 mm/Hg [1] 54 mm/Hg [1] 56 mm/Hg [1] 67 mm/Hg [1] 65 mm/Hg[1] 58 mm/Hg [1] Pulse 71 bpm [1] 66 bpm [1] 74 bpm [1] 71 bpm [1] 69 bpm [1] 70 bpm [1] 73 bpm [1] 65 bpm [1] Note: Showing the most recent values for these dates. There are additional values that can be seen in Synopsis. [1] CH:VITAL_READING_TYPE=SPOT CH:PERIPHERAL_BRAND=[facility]HE[facility] BP at goal. No changes at this time, will continue to monitor. Clary Gregg RPh, PharmD Clinical Pharmacist - [employer] Specialist Medication Therapy [facility] 04/21/2024, 2:24 PM [phone] * Leona Eckert LPN - 04/21/2024 8:33 AM EDT Tony Onofreall [phone] Tony Delong is currently participating in the [employer] Hypertension Management Program and hada reading on 04/20 of 140/65. Pt has alerted for an Average BP [...] 05/09/2024 1:40 PM EST Office Visit Nephrology, [address] [place] [address] [phone] Shivani Magallon MD [address] [place], [place] [address] 05/30/2024 1:00 PM EST Telemedicine Cardiology [facility], [place] [address] [facility] [place] [address] [place] [address], Pharmacist Cardiology [facility] [address] [place] [address] 05/31/2024 3:30 PM EST Scheduled Telephone [facility], [facility] [address] [facility] [place] [address] Mery Calderon RDN [address] [facility] [place] [address] 06/13/2024 11:15 AM EST Hospital Encounter ENDO [facility], Endoscopy Room [facility] 132 [facility] [place] [phone] José Miguel Sifuentes MD 132 [facility] [place] [address] 06/13/2024 11:15 AM EST - 06/13/2024 11:45 AM EST Surgery ENDO [facility], Endoscopy Room [facility] 132 [facility] [place] [phone] José Miguel Sifuentes MD 132 [facility] [place] [address] COLONOSCOPY FLEXIBLE PROXIMAL DIAGNOSTIC 07/01/2024 2:20 PM EST Office Visit Family Practice [address], [place] 293 [facility] [place] [phone] Igor Mcconnell, 293 [facility] [place] [address] 08/08/2024 9:30 AM EST Nurse Only Ancillary [address] [place] [address] [place], Nurse [facility] [address] [place] [address] [place] [address] 10/27/2024 1:00 PM EDT Office Visit Sleep Disorders Ctr [facility] [address] [place] [phone] Lindsey Sheikh, REGGIE [address] [place] [address] Scheduled Procedures Name Priority Associated Diagnoses Date/Ti [...] 10/25/2024 10/26/2023, 10/04, 06/11/2023, Additional history exists Diabetic Eye Exam 12/16/2024 12/17/2023, , 12/17/2023, Additional history exists Nephrology Referral 03/03/2025 03/03/2024 Hgb 03/11/2025 03/11/2024, 02/04, 02/12/2024, Additional history exists O2 ASSESSMENT COMPLETED IN PAST YEAR FOR COPD 03/29/2025 03/29/2024 Arreola's Esophagus Surveilance 06/16/2025 06/16/2022, 06/16/2022, 03/20/2022, [...] this encounter Medical Devices Implanted Type Area Linen Aide Device Identifier Shelf Expiration Date Model / Serial / Lot Lens Intraoc 21.0 - [id number] - [id number] Implanted:Qty: 1 on 01/22/2017 by Cheko Mcnamara MD at OR [facility] Right: Eye BAUSCH & LOMB 08/05/2021 [id number] / [id number] / [id number] Lens Intraoc 21.5 - [id number] - [id number] Implanted:Qty: 1 on 02/03/2017 by Cheko Mcnamara MD at OR [facility] Left: Eye BAUSCH & LOMB 09/02/2021 [id number] / [id number] / [id number] documented as of this encounter Visit Diagnoses Diagnosis HTN, goal below 130/80- Primary Unspecified essential [...] and were consensually agreed upon. Care Teams President And Chief Executive Officer Relationship Specialty Start Date End Date Igor Mcconnell DO [address] [place] [address] PCP - General Internal Medicine 02/12/24 documented as of this encounter
--- OUTSIDE RECORDS SUMMARY | 2024-08-26 02:38 | External Medical Summary | Summary of Care ---
Author Name Unknown Organization [facility] Address [address] [facility] [place] [address] Phone [phone] Care Team Providers Care Plant Protection Guard Name Role Phone Igor Mcconnell DO Primary Care Provider Reason for Visit * Reason Comments Outpatient Testing Encounter Details Date Type Department Care Team (Late st Contact Info) Description 04/13/2024 10:20 AM EDT Laboratory Laboratory [address] [place] [phone] [facility] [address] [place] [address] Mixed dyslipidemia; Hypertensive heart and kidney disease with chronic [...] as of this encounter (statuses as of 04/18/2024) Medications Medication Sig Dispensed Refills Start Date [...] BY MOUTH BEFORE BEDTIME 200 Tablet 3 04/19/20 23 024 Active Evolocumab 140 MG/ML Subcutaneous Solution Auto-injector (Repatha SureClick)Indicati ons:Dyslipidemia, goal LDL below 100,Mixed dyslipidemia Inject 140 mg under the skin every 14 days. 6 mL 3 06/19/20 23 Active hydrALAZINE HCl 25 MG Oral Tablet (Apresoline)Indica tions:HTN, goal below 140/90 Take 1 Tablet by mouth in the morning and 1 Tablet at noon and 1 Tablet before bedtime. 300 Tablet 3 08/12/19 24 Active OneTouch Verio In Vitro Strip (Glucose Blood)Indications: Uncontrolled type 2 diabetes mellitus with hyperglycemia (HCC) USE TO TEST BLOOD GLUCOSE 3 TIMES A DAY. DX: E11.9 300 Strip 3 09/23/19 24 Active Omeprazole 20 MG Oral Capsule Delayed Release (PriLOSEC) TAKE 1 CAPSULE BY MOUTH IN THE MORNING AND 1 CAPSULE BEFORE BEDTIME 30 MINUTES BEFORE A MEAL 180 Capsule 1 10/28/19 24 025 Active Ondansetron 4 MG Oral Tablet Disintegrating (Zofran) Place 1 Tablet on tongue every 8 hours as needed for Nausea. 30 Tablet 01/18/20 24 Active Tresiba FlexTouch 200 UNIT/ML Subcutaneous Solution Pen-injectorIndica tions:Type 2 diabetes mellitus with hemoglobin A1c goal of less than 7.0% (HCC) INJECT UNDER THE SKIN 100 UNITS TWICE DAILY OR DIRECTED 90 mL 3 01/18/20 24 025 Active Additional Information Patient [...] Or take as directed. 240 Tablet 5 01/22/20 24 Active Additional Information Patient taking [...] use of insulin ([facility]) Inject 2 mg under the skin once a week. 2 mL 11 02/16/20 24 Active Clotrimazole-Betam ethasone 1-0.05 % External Cream (Lotrisone) Apply small amount of cream to scrotal area two times a day 90 g 1 03/02/20 24 Active predniSONE 5 MG Oral [...] mouth in the morning. 100 Tablet 3 03/17/20 24 Active NovoLOG FlexPen 100 UNIT/ML Subcutaneous Solution Pen-injectorIndica tions:Type 2 diabetes mellitus with hemoglobin A1c goal of less than 7.0% ([facility]) INJECT UNDER THE SKIN 20 UNITS AT BREAKFAST, 26 UNITS AT LUNCH, 38 UNITS WITH DINNER PLUS CORRECTION PER [facility] OR DIRECTED UP TO 120 UNITS PER DAY 120 mL 3 03/21/20 24 Active DIURETIC TITRATION PLAN If no improvement on day 3, contact [facility] for possible home visit 1 [...] 1 Tablet before bedtime. 180 Tablet 3 04/14/20 Active BD Pen Needle Short U/F 31G X 8 MM (Insulin Pen Needle)Indications :Type 2 diabetes mellitus with hemoglobin A1c goal of less than 7.0% ([facility]) USE TO INJECT INSULINS 5 TIMES DAILY 500 Each 3 02/17/20 23 Discontinued(Re fill) Gucol-5-ifbw Ethyl Esters 1 GM Oral Capsule (Lovaza) Take 2 Capsules by mouth in the morning and 2 Capsules before bedtime. 360 Capsule 1 10/05/19 24 024 Discontinued(Re fill) Potassium Chloride Gaviota ER 20 MEQ Oral Tablet Extended Release Take 1 Tablet by mouth in the morning and 1 Tablet before bedtime. 180 Tablet 3 02/18/20 24 Discontinued metOLazone 2.5 MG Oral Tablet (Zaroxolyn)Indicat ions: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) Take 1 tablet as needed for > 3 lb weight gain in 1 day, or > 5 lb weight gain in 1 week. Do not start before March 14, 2024. 03/14/20 24 Discontinued documented as of this encounter (statuses as of 04/18/2024) Active Problems Patient Care Coordination No te [...] in the Comments) Remote Patient Monitoring Vendor: [email or web address] Device(s): Connected Scale Self - Management Plan [...] as of this encounter (statuses as of 04/18/2024) Resolved Problems Problem Noted Date Diagnosed Date [...] as of this encounter (statuses as of 04/18/2024) Immunizations Name Administration Dates Next Due COVID-19 mRNA, LNP-s, No Pre serve, 2-Dose Series (Moderna) 12/10/2020,11/12/2020 Hepatitis B, 20+ yrs 01/04/2018,08/03/2017,07/03 Pneumococcal Conjugate Vacci ne, 20-valent ([id number]) 06/09/2022 Pneumococcal Polysaccharide PPV23 (Pneumovax) 03/06/2020 RSV [...] 08/05/2023 Does the household have a re gular [...] encounter Miscellaneous Notes * Addendum Note - Shannon Wheeler PA-C - 04/18/2024 3:38 PM EDTAddended by: SHANNON WHEELER on: 04/18/2024 03:38 PM Modules accepted: Orders * Result Encounter Note - Zulema Frazier LPN - 04/14/2024 3:11 PM EDT See telephone encounter. * Addendum Note - Shannon Wheeler PA-C - 04/14/2024 10:04 AM EDTAddended by: SHANNON WHEELER on: 04/14/2024 10:04 AM Modules accepted: Orders documented in this encounter Plan of Treatment Upcoming Encounters Date Type Department Care Team (Late st Contact Info) Description 05/09/2024 1:40 PM EST Office Visit Nephrology, [facility] 200 [facility] [place] [address] Shivani Magallon MD 200 [facility] [address] [place] [address] 05/30/2024 1:00 PM EST Telemedicine Cardiology [facility], [place] [address] [place] [address] [place] [address], Pharmacist Cardiology [facility] [address] [place] [address] 05/31/2024 3:30 PM EST Scheduled Telephone [facility], [facility] [address] [facility] [place] [address] Mery Calderon, RDN [address] [facility] [place] [address] 06/13/2024 11:15 AM EST Hospital Encounter [facility] [place] [phone] José Miguel Sifuentes MD [address] [place] [address] 06/13/2024 11:15 AM EST - 06/13/2024 11:45 AM EST Surgery ENDO [facility], Endoscopy Room [facility] 132 [facility] [place] [phone] José Miguel Sifuentes MD [address] [place] [address] COLONOSCOPY FLEXIBLE PROXIMAL DIAGNOSTIC 07/01/2024 2:20 PM EST Office Visit Family Practice [address] [place] [address] 293 [place] [address] Igor Mcconnell, 293 [place] [address] 08/08/2024 9:30 AM EST Nurse Only Ancillary [address] [place] [address] [place], Nurse [address] [place] [address] 10/27/2024 1:00 PM EDT Office Visit Sleep Disorders Ctr [facility] 132 [facility] [place] [phone] Lindsey Sheikh CRNP 132 [facility] [place] [address] Scheduled Orders Name Type Priority Associated Diagnoses Orde r Schedule BASIC METABOLIC PANEL Lab Routine 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) Expected: 05/16/2024 (Approximate), Expires: 04/18/2025 Scheduled Procedures Name Priority Associated Diagnoses Date/Ti [...] this encounter Medical Devices Implanted Type Area Farmworker Poultry Device Identifier Shelf Expiration Date Model / Serial / Lot Lens Intraoc 21.0 - [id number] - [id number] Implanted:Qty: 1 on 01/22/2017 by Cheko Mcnamara MD at OR [facility] Right: Eye BAUSCH & LOMB 08/05/2021 [id number] / [id number] / [id number] Lens Intraoc 21.5 - [id number] - [id number] Implanted:Qty: 1 on 02/03/2017 by Cheko Mcnamara MD at OR 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 SODIUM 137 135 - 146 mmol/L 04/14/2024 1:26 AM EDT [facility] POTASSIUM 3.0(L) 3.5 - 5.1 mmol/L 04/14/2024 1:26 AM EDT [facility] CHLORIDE 93(L) 98 - 107 mmol/L 04/14/2024 1:26 AM EDT [facility] CO2 27 22 - 32 mmol/L 04/14/2024 1:26 AM EDT [facility] ANION GAP 17(H) 7 - 15 mmol/L 04/14/2024 1:26 AM EDT [facility] GLUCOSE 232(H) 70 - 120 mg/dL 04/14/2024 1:26 AM EDT [facility] CALCIUM 9.6 8.4 - 10.2 mg/dL 04/14/2024 1:26 AM EDT [facility] Blood Venous blood specimen / Unknown Venipuncture / Unknown 04/13/2024 10:22 AM EDT 04/13/2024 10:22 AM EDT Shannon Wheeler PA-C LAB BLOOD ORDERABLES LAB[facility]ATORY C [address] [place] [address] * (ABNORMAL) HEPATIC FUNCTION PANEL (04/13/2024 10:22 AM EDT) Albumin 4.3 3.8 - 5.0 g/dL 04/14/2024 1:26 AM EDT [facility] AST 59(H) 10 - 50 U/L 04/14/2024 1:26 AM EDT [facility] Alkaline Phosphatase 131(H) 35 - 130 U/L 04/14/2024 1:26 AM EDT [facility] ALT 48 10 - 50 U/L 04/14/2024 1:26 AM EDT [facility] Bilirubin, Total 0.7 <=1.2 mg/dL 04/14/2024 1:26 AM EDT [facility] Bilirubin, Direct 0.3 0.0 - 0.3 mg/dL 04/14/2024 1:26 AM EDT [facility] Protein 8.1 6.0 - 8.3 g/dL 04/14/2024 1:26 AM EDT [facility] Blood Venous blood specimen / Unknown Venipuncture / Unknown 04/13/2024 10:22 AM EDT 04/13/2024 10:22 AM EDT Igor Mcconnell DO LAB BLOOD ORDERABLES [facility] [address] [place] [address] documented in this encounter Visit Diagnoses Diagnosis Mixed dyslipidemia Mixed hyperlipidemia Hypertensive heart and [...] were consensually agreed upon. Care Teams Plant Protection Guard Relationship Specialty Start Date End Date Igor Mcconnell DO [address] [place] [address] PCP - General Internal Medicine 02/12/24 documented as of this encounter
--- OUTSIDE RECORDS SUMMARY | 2024-08-26 02:38 | External Medical Summary | Summary of Care ---
Author Name Unknown Organization [facility] Address [address] [facility] [place] [address] Phone [phone] Care Team Providers Care Patient Services Clerk Name Role Phone Raquel Mcconnell DO Primary Care Provider [phone] Reason for Visit * Reason Comments Medication Refill Encounter Details Date Type Department Care Team (Late st Contact Info) Description 04/16/2024 Refill Pharmacy[place] [address] [place] [address] [address] [place] [id number] Type 2 diabetes mellitus with hemoglobin A1c goal of less than 7.0% ([facility]) Allergies Active Allergy Reactions Criticality [...] DX: E11.9 300 Strip 3 4 Active Aions-8-ulca Ethyl Esters 1 GM Oral Capsule (Lovaza) Take 2 Capsules by mouth in the morning and 2 Capsules before bedtime. 360 Capsule 1 4 Active Omeprazole 20 MG Oral Capsule Delayed Release (PriLOSEC) TAKE 1 CAPSULE BY MOUTH IN THE MORNING AND 1 CAPSULE BEFORE BEDTIME 30 MINUTES BEFORE A MEAL 180 Capsule 1 4 10/28/19 25 Active Ondansetron 4 MG Oral Tablet Disintegrating [...] days then stop. 10 Tablet 4 Active metOLazone 2.5 MG Oral Tablet (Zaroxolyn)Indicati ons: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) Take 1 tablet as needed for > 3 lb weight gain in 1 day, or > 5 lb weight gain in 1 week. Do not start before March 14, 2024. 4 Active Allopurinol 300 MG Oral Tablet (Zyloprim)Indicatio ns:Gout, arthropathy Take 1 Tablet by mouth in the morning. 100 Tablet 3 4 Active NovoLOG FlexPen 100 UNIT/ML Subcutaneous Solution Pen-injectorIndicat ions:Type 2 diabetes mellitus with hemoglobin A1c goal of less than 7.0% (HCC) INJECT UNDER THE SKIN 20 UNITS AT BREAKFAST, 26 UNITS AT LUNCH, 38 UNITS WITH DINNER PLUS CORRECTION PER [facility] OR DIRECTED UP TO 120 UNITS PER DAY 120 mL 3 4 Active DIURETIC TITRATION PLAN If no improvement on day 3, contact [facility] for possible home visit 1 [...] TIMES DAILY 500 Each 3 4 Active BD Pen Needle Short U/F 31G X 8 MM (Insulin Pen Needle)Indications: Type 2 diabetes mellitus with hemoglobin A1c goal of less than 7.0% (HCC) USE TO INJECT INSULINS 5 TIMES DAILY 500 Each 3 3 04/16/20 24 Discontinu ed(Refill) documented as of this [...] in the Comments) Remote Patient Monitoring Vendor: [employer] (formerly known as [employer]) Device(s): Connected Scale Self - Management Plan [...] 08/18/2017 Last Assessment & Plan: Continues on Eashmartaza 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 repatha History of [...] yrs 01/04/2018,08/03/2017,07/03 Pneumococcal Conjugate Vacci ne, 20-valent ([id number]) 06/09/2022 Pneumococcal Polysaccharide PPV23 (Pneumovax) 03/06/2020 RSV [...] Miscellaneous Notes * Telephone Encounter - Coral Pardo, formerly [facility] - 04/18/2024 7:49 AM EDT Signed Prescriptions: Disp Refills Unifine Pentips 31G X 8 MM (Insulin Pen Ne*500 Ea*3 Sig: USE TO INJECT INSULINS 5 TIMES DAILYAuthorizing Provider: RAQUEL MCCONNELL User: CORAL PARDO documented in this encounter Plan of Treatment Upcoming Encounters Date Type Department Care Team (Late st Contact Info) Description 05/09/2024 1:40 PM EST [facility] [address] [place] [id number] MagallonShivani beth MD [address] [place] [address] 05/30/2024 1:00 PM EST Telemedicine Cardiology [facility], [place] [address] [place] [address] [place] [address], Pharmacist Cardiology [facility] [address] [place] [address] 05/31/2024 3:30 PM EST Scheduled Telephone [facility], [facility] [address] [place] [id number] Mery Calderon RDN [address] [place] [address] 06/13/2024 11:15 AM EST Hospital Encounter ENDO OSSC, Endoscopy Room [facility] [address] [place] [phone] José Miguel Sifuentes MD [address] [place] [address] 06/13/2024 11:15 AM EST - 06/13/2024 11:45 AM EST Surgery ENDO OSSC, Endoscopy Room [facility] [address] [place] [phone] José Miguel Sifuentes MD [address] [place] [address] COLONOSCOPY FLEXIBLE PROXIMAL DIAGNOSTIC 07/01/2024 2:20 PM EST Office Visit Family Practice [address] [place] [address] [address] [place] [address] Raquel Mcconnell, 293 [place] [address] 08/08/2024 9:30 AM EST Nurse Only Ancillary [address] [place] [address] Mov[place]vin, Nurse [address] [place] [address] 10/27/2024 1:00 PM EDT Office Visit Sleep Disorders Ctr [facility] [address] [facility] [place] [phone] Lindsey Sheikh CRNP [address] [facility] [place] [address] Scheduled Procedures Name Priority Associated Diagnoses Date/Ti me COLONOSCOPY FLEXIBLE PROXIMA L DIAGNOSTIC Recall Special screening for malignant neoplasms, colon 06/13/2024 11:15 AM EST ESOPHAGOGASTRODUODENOSCOPY ( EGD), FLEXIBLE, TRANSORAL, DIAGNOSTIC Recall [...] encounter Medical Devices Implanted Type Area Manager Business Banking Device Identifier Shelf Expiration Date Model / Serial / Lot Lens Intraoc 21.0 - [id number] - [id number] Implanted:Qty: 1 on 01/22/2017 by Cheko Mcnamara MD at OR [facility] Right: Eye BAUSCH & LOMB 08/05/2021 [id number] / [id number] / [id number] Lens Intraoc 21.5 - [id number] - [id number] Implanted:Qty: 1 on 02/03/2017 by Cheko Mcnamara MD at OR [facility] Left: Eye BAUSCH & LOMB 09/02/2021 [id number] / [id number] / [id number] documented as of this encounter Visit Diagnoses Diagnosis Type 2 diabetes mellitus with hemoglobin A1c goal of less than 7.0% (HCC) Special screening for malignant neoplasms, colon [...] were consensually agreed upon. Care Teams Patient Services Clerk Relationship Specialty Start Date End Date Raquel Mcconnell DO [address] [facility] [place] [address] PCP - General Internal Medicine 02/12/24 documented as of this encounter
--- OUTSIDE RECORDS SUMMARY | 2024-08-26 02:38 | External Medical Summary | Summary of Care ---
Author Name Unknown Organization [facility] Address [address] [place] [address] Phone [phone] Care Team Providers Care Fit Model Name Role Phone Igor Mcconnell DO Primary Care Provider [phone] Reason for Visit * Reason Comments Medication Management Encounter Details Date Type Department Care Team (Late st Contact Info) Description 04/11/2024 9:20 AM EDT Telemedicine Family Practice [address] [phone] College, Pharmacist [address] [address] Medication management* Allergies Active Allergy Reactions Criticality Noted Date [...] DX: E11.9 300 Strip 3 09/23/2023 Active Fbnlx-3-xaao Ethyl Esters 1 GM Oral Capsule (Lovaza) Take 2 Capsules by mouth in the morning and 2 Capsules before bedtime. 360 Capsule 1 10/05/2023 Active Omeprazole 20 MG Oral Capsule Delayed [...] long-term current use of insulin ([facility]) Inject 2 [...] days then stop. 10 Tablet 03/03/2024 Active metOLazone 2.5 MG Oral Tablet (Zaroxolyn)Indicatio ns: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) Take 1 tablet as needed for > 3 lb weight gain in 1 day, or > 5 lb weight gain in 1 week. Do not start before March 14, 2024. 03/14/2024 Active Allopurinol 300 MG Oral Tablet (Zyloprim)Indication s:Gout, arthropathy Take 1 Tablet by mouth in the morning. 100 Tablet 3 03/17/2024 Active NovoLOG FlexPen 100 UNIT/ML Subcutaneous Solution Pen-injectorIndicati ons:Type 2 diabetes mellitus with hemoglobin A1c goal of less than 7.0% (HCC) INJECT UNDER THE SKIN 20 UNITS AT BREAKFAST, 26 UNITS AT LUNCH, 38 UNITS WITH DINNER PLUS CORRECTION PER [facility] OR DIRECTED UP TO 120 UNITS PER DAY 120 mL 3 03/21/2024 Active DIURETIC TITRATION PLAN If no improvement on day 3, contact [facility] for possible home visit 1 Each 03/24/2024 Active Evolocumab 140 MG/ML Subcutaneous Solution Auto-injector (Repatha SureClick)Indication s:Dyslipidemia, goal LDL below 100,Mixed dyslipidemia Inject 140 mg under the skin every 14 days. 6 mL 3 03/24/2024 Active documented as of this encounter (statuses [...] in the Comments) Remote Patient Monitoring Vendor: [employer] Device(s): Connected Scale Self - Management [...] yrs 01/04/2018,08/03/2017,07/03 Pneumococcal Conjugate Vacci ne, 20-valent ([id number]) 06/09/2022 Pneumococcal Polysaccharide PPV23 (Pneumovax) 03/06/2020 RSV [...] this encounter Progress Notes * Delia Angulo, [facility] - 04/18/2024 10:18 AM EDT Medication Therapy Disease Management [facility] - Medication Reconciliation Encounter Type: chart review Med Bottles Available for Review: no Med Rec Reason: Fall Prescription insurance information: P Gold Do you have any other prescription coverage: Yes - PACE Preferred pharmacy: [facility] ([facility]) [x] Problem list reviewed [x] Allergies reviewed and updated if needed [x] Drug interaction check completed [x] HEDIS list addressed Immunizations: indicated for COVID Labs/Vitals/Risk Scores: The ASCVD Risk score (Chris ROWE, et al., 2019) failed to calculate for the following reasons: The patient has a prior MS or stroke diagnosis BP Readings from Last 3 Encounters: 03/29/24 132/58 03/16/24 124/60 03/11/24 122/68 Recent Labs Units 02/12/24 1438 10/21/23 0000 06/11/23 1111 HEMOGLOBIN A1C - [facility]INGER % 8.5* -- 8.2* HEMOGLOBIN, [id number] LAB -- 7.6 -- Recent Labs Units 04/13/24 1022 04/01/24 1426 03/11/24 0804 ESTIMATED GLOMERULAR FILTRATION RATE - [facility] mL/min 32* 23* 31* Serum creatinine: 2.3 mg/dL (H) 04/13/24 1022 Estimated creatinine clearance: 43.6 mL/min (A) Patient reports a recent fall. Fell going up a slick ramp. In assessing patient's medications, the patient is taking medications in the following classes which could increase patient's risk of falls: Diuretics, Vasodilators, Antihypertensives (if hypotensive), and Antihyperglycemics (if hypoglycemic). Is vitamin D level within goal: yes Has patient complained of hypotension? no Has patient complained of hypoglycemia? no Did patient hit head? no Is patient on any anticoagulant or antiplatelet medications? Aspirin Summary- Changes & Recommendations: Reviewed patient medications for fall. Fall appears to be mechanical, but will continue to monitor for hypotension and/or hypoglycemia. I spent a total of 10-19 minutes (exact time 15 mins) on the date of service in preparation, delivery, and documentation of the care provided to Tony Delong excluding any time spent in the performance of separately billed services or time spent by another provider/QHP. Delia Diaz [facility] Clinical Pharmacist - Leather Piece Inspector Medication Therapy Management Clinic 04/18/2024, 10:18 AM documented in this encounter Plan of Treatment Upcoming Encounters Date Type Department Care Team (Late st Contact Info) Description 05/09/2024 1:40 PM EST Office Visit Nephrology, Susan Palacios [address] [place] [address] Shivani Magallon MD [address] [place] [address] 05/30/2024 1:00 PM EST Telemedicine Cardiology [facility], [address] [place], [place] [phone] [place] [address], Pharmacist Cardiology [facility] [address] [place] [address] 05/31/2024 3:30 PM EST Scheduled Telephone [facility], [facility] [address] [facility] [place] [address] Mery Calderon, RDN [address] [facility] [place] [address] 06/13/2024 11:15 AM EST Hospital Encounter ENDO OSSC, Endoscopy Room [facility] [address] [place] [phone] José Miguel Sifuentes MD [address] [place] [address] 06/13/2024 11:15 AM EST - 06/13/2024 11:45 AM EST Surgery ENDO OSSC, Endoscopy Room [facility] [address] [place] [phone] José Miguel Sifuentes MD [address] [place] [address] COLONOSCOPY FLEXIBLE PROXIMAL DIAGNOSTIC 07/01/2024 2:20 PM EST Office Visit Family Practice [address] [place] [address] [address] [place] [address] Igor Mcconnell, 293 [place] [address] 08/08/2024 9:30 AM EST Nurse Only Ancillary [address] [place] [address] [place], Nurse [address] [place] [address] 10/27/2024 1:00 PM EDT Office Visit Sleep Disorders Ctr [facility] [address] [place] [phone] Lindsey Sheikh CRNP [address] [place] [address] Scheduled Procedures Name Priority Associated Diagnoses Date/Ti [...] this encounter Medical Devices Implanted Type Area Weigher Alloy Device Identifier Shelf Expiration Date Model / Serial / Lot Lens Intraoc 21.0 - [id number] - [id number] Implanted:Qty: 1 on 01/22/2017 by Cheko Mcnamara MD at OR [facility] Right: Eye BAUSCH & LOMB 08/05/2021 [id number] / [id number] / [id number] Lens Intraoc 21.5 - [id number] - [id number] Implanted:Qty: 1 on 02/03/2017 by Cheko Mcnamara MD at OR [facility] Left: Eye BAUSCH & LOMB 09/02/2021 [id number] / [id number] / [id number] documented as of this encounter Visit Diagnoses Diagnosis Medication management- Primary Encounter for long-term (current) use of other medications Special screening for malignant neoplasms, colon documented [...] and were consensually agreed upon. Care Teams Fit Model Relationship Specialty Start Date End Date Igor Mcconnell DO [address] [place] [address] PCP - General Internal Medicine 02/12/24 documented as of this encounter
--- OUTSIDE RECORDS SUMMARY | 2024-08-26 02:38 | External Medical Summary | Summary of Care ---
Author Name Unknown Organization [facility] Address [address] [place] [address] Phone [phone] Care Team Providers Care Room Service Clerk Name Role Phone Igor Mcconnell DO Primary Care Provider [phone] Reason for Visit * Reason Onset Date Comments Test Results 04/14/202404/14 Encounter Details Date Type Department Care Team (Late st Contact Info) Description 04/14/2024 Telephone Family Practice [address] [facility] [place] [address] [place] [address] Igor Mcconnell DO [address] [place] [address] Test Results (04/14) Allergies Active Allergy Reactions Criticality Noted Date Comments Metolazone Renal complications 11/10/2023 Note prior DTP with metolazone resulted in acute renal failure Other Allergy (See Comments) Rash Low 10/13/2022 1+ cocamidopropyl betaine Sglt2 Inhibitors Other (Please comment) High 09/04/2020 Genital infection Sulfa Antibiotics Rash 10/15/2016 documented as of this encounter (statuses as of 04/14/2024) Medications Medication Sig Dispensed Refills Start Date [...] least 1 hour after other medications Active BD Pen Needle Short U/F 31G X 8 MM (Insulin Pen Needle)Indications:T ype 2 diabetes mellitus with hemoglobin A1c goal of less than 7.0% (HCC) USE TO INJECT INSULINS 5 TIMES DAILY 500 Each 3 02/16/2023 Active Carvedilol 25 MG Oral Tablet (Coreg)Indications:H [...] DX: E11.9 300 Strip 3 09/23/2023 Active Yscfo-1-diwh Ethyl Esters 1 GM Oral Capsule (Lovaza) [...] less than 7.0% ([facility]) INJECT UNDER THE SKIN 100 UNITS TWICE DAILY OR DIRECTED 90 mL 3 01/18/2024 Active Additional Information Patient taking differently: 90 Units Subcutaneous BID(Non-Specified), Reported on 02/12/2024 Torsemide 20 MG Oral Tablet (Demadex)Indications :Chronic heart failure with preserved ejection fraction ([facility]),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 disease ([facility]) Take 4 Tablets by mouth in the [...] use of insulin ([facility]) Inject 2 mg under the skin [...] less than 7.0% ([facility]) INJECT UNDER THE SKIN 20 UNITS AT BREAKFAST, 26 UNITS AT LUNCH, 38 UNITS WITH DINNER PLUS CORRECTION PER [facility] OR DIRECTED UP TO 120 UNITS PER DAY 120 mL 3 03/21/2024 Active DIURETIC TITRATION PLAN If no improvement on day 3, contact [facility] for possible home visit 1 Each 03/24/2024 [...] before bedtime. 180 Tablet 3 04/14/2024 Active documented as of this encounter (statuses as of 04/14/2024) Active Problems Patient Care Coordination No te Formatting of this note migh t be different from the original. Heart Failure Self-Management and Exacerbation Plan "RED FLAG" HF Symptoms: Leg Swelling Abdominal Bloating Increased dyspnea on exertion Increased shortness of breath at rest Orthopnea Remote Patient Monitoring Vendor: [facility] Device(s): Connected Scale Self - [...] in the Comments) Remote Patient Monitoring Vendor: [employer] Device(s): Connected Scale Self - Management Plan [...] as of this encounter (statuses as of 04/14/2024) Resolved Problems Problem Noted Date Diagnosed Date [...] as of this encounter (statuses as of 04/14/2024) Immunizations Name Administration Dates Next Due COVID-19 mRNA, LNP-s, No Pre serve, 2-Dose Series (Moderna) 12/10/2020,11/12/2020 Hepatitis B, 20+ yrs 01/04/2018,08/03/2017,07/03 Pneumococcal Conjugate Vacci ne, 20-valent ([id number]) 06/09/2022 Pneumococcal Polysaccharide PPV23 (Pneumovax) 03/06/2020 RSV [...] No 08/05/2023 Does the household have a [facility] source of income? (Household - for [...] Telephone Encounter - Zulema Frazier LPN - 04/14/2024 3:11 PM EDT Patient is aware and will comply. Thank you * Telephone Encounter - Zulema Frazier LPN - 04/14/2024 3:10 PM EDT ----- Message from Igor Mcconnell DO sent at 04/14/2024 8:07 AM EDT ----- AST improved. Stay off of Crestor. Repeat LFT in 1 month documented in this encounter Plan of Treatment Upcoming Encounters Date Type Department Care Team (Late st Contact Info) Description 04/15/2024 8:30 AM EDT Scheduled Telephone [facility], [facility] [address] [facility] [place] [address] Mery Calderon RDN [address] [facility] [place] [address] 05/09/2024 1:40 PM EST Office Visit Nephrology, [facility] [address] [facility] [place] [address] Shivani Magallon MD [address] [facility] [place] [address] 05/30/2024 1:00 PM EST Telemedicine Cardiology [facility], [place] [address] [place] [address] [place] [address], Pharmacist Cardiology [facility] [address] [place] [address] 06/13/2024 11:15 AM EST Hospital Encounter ENDO OSSC, Endoscopy Room [facility] [address] [place] [phone] José Miguel Sifuentes MD [address] [place] [address] 06/13/2024 11:15 AM EST - 06/13/2024 11:45 AM EST Surgery ENDO OSSC, Endoscopy Room [facility] [address] [place] [phone] José Miguel Sifuentes MD [address] [place] [address] COLONOSCOPY FLEXIBLE PROXIMAL DIAGNOSTIC 07/01/2024 2:20 PM EST Office Visit Family Practice 65 [facility] [place] [address] [place] [address] Igor Mcconnell, 293 [place] [address] 08/08/2024 9:30 AM EST Nurse Only Ancillary Lazaro Hyde[address] [place] [address] [place] Nurse [address] [place] [address] 10/27/2024 1:00 PM EDT [facility] [phone] Lindsey Sheikh CRNP 132 [place] [address] Scheduled Orders Name Type Priority Associated Diagnoses Orde r Schedule HEPATIC FUNCTION PANEL Lab Routine Abnormal liver enzymes Expected: 05/15/2024 (Approximate), Expires: 04/14/2025 Scheduled Procedures Name Priority Associated Diagnoses Date/Ti [...] this encounter Medical Devices Implanted Type Area Provider Network Manager Device Identifier Shelf Expiration Date Model / Serial / Lot Lens Intraoc 21.0 - [id number] - [id number] Implanted:Qty: 1 on 01/22/2017 by Cheko Mcnamara MD at OR [facility] Right: Eye BAUSCH & LOMB 08/05/2021 [id number] / [id number] / [id number] Lens Intraoc 21.5 - [id number] - [id number] Implanted:Qty: 1 on 02/03/2017 by Cheko Mcnamara MD at OR [facility] Left: Eye BAUSCH & LOMB 09/02/2021 [id number] / [id number] / [id number] documented as of this encounter Visit Diagnoses Diagnosis Abnormal liver enzymes- Primary Other nonspecific abnormal serum enzyme levels Special screening for malignant neoplasms, colon documented [...] and were consensually agreed upon. Care Teams Room Service Clerk Relationship Specialty Start Date End Date Igor Mcconnell DO [address] [place] [address] PCP - General Internal Medicine 02/12/24 documented as of this encounter
--- OUTSIDE RECORDS SUMMARY | 2024-08-26 02:38 | External Medical Summary | Summary of Care ---
Author Name Unknown Organization [facility] Address [address] [facility] [place] [address] Phone [phone] Care Team Providers Care Senior Sas Programmer Name Role Phone Igor Mcconnell DO Primary Care Provider [phone] Reason for Visit * Reason Onset Date Comments [facility]: Maintenance 04/16/2024 Encounter Details Date Type Department Care Team (Late st Contact Info) Description 04/16/2024 9:45 AM EDT Scheduled Telephone [facility], [facility] [address] [facility] [place] [address] [facility], Nurse [facility] [address] [facility] [place] [address] Allergies Active Allergy Reactions Criticality Noted Date Comments Metolazone Renal complications 11/10/2023 Note prior DTP with metolazone resulted in acute renal failure Other Allergy (See Comments) Rash Low 10/13/2022 1+ cocamidopropyl betaine Sglt2 Inhibitors Other (Please comment) High 09/04/2020 Genital infection Sulfa Antibiotics Rash 10/15/2016 documented as of this encounter (statuses as of 04/16/2024) Medications Medication Sig Dispensed Refills Start Date [...] DX: E11.9 300 Strip 3 09/23/2023 Active Fzsuj-6-jwww Ethyl Esters 1 GM Oral Capsule (Lovaza) [...] of less than 7.0% ([facility]) INJECT UNDER THE SKIN 100 UNITS TWICE DAILY OR DIRECTED 90 mL 3 01/18/2024 Active Additional Information Patient taking differently: 90 Units Subcutaneous BID(Non-Specified), Reported on 02/12/2024 Torsemide 20 MG Oral Tablet (Demadex)Indications :Chronic heart failure with preserved ejection fraction (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) Take 4 Tablets by mouth in [...] current use of insulin ([facility]) Inject 2 mg under the skin [...] of less than 7.0% ([facility]) INJECT UNDER THE SKIN 20 UNITS AT BREAKFAST, 26 UNITS AT LUNCH, 38 UNITS WITH DINNER PLUS CORRECTION PER [facility] OR DIRECTED UP TO 120 UNITS PER DAY 120 mL 3 03/21/2024 Active DIURETIC TITRATION PLAN If no improvement on day 3, contact [facility] for possible home visit 1 Each [...] as of this encounter (statuses as of 04/16/2024) Active Problems Patient Care Coordination No te Formatting of this note migh t be different from the original. Heart Failure Self-Management and Exacerbation Plan "RED FLAG" HF Symptoms: Leg Swelling Abdominal Bloating Increased dyspnea on exertion Increased shortness of breath at rest Orthopnea Remote Patient Monitoring Vendor: [facility] Device(s): Connected Scale [...] in the Comments) Remote Patient Monitoring Vendor: [employer] Device(s): Connected Scale Self - Management Plan [...] Continues on lovaza 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 RobArta History of tobacco use 08/18/2017 CHAPINCITO on [...] as of this encounter (statuses as of 04/16/2024) Resolved Problems Problem Noted Date Diagnosed Date [...] as of this encounter (statuses as of 04/16/2024) Immunizations Name Administration Dates Next Due COVID-19 mRNA, LNP-s, No Pre serve, 2-Dose Series (Moderna) 12/10/2020,11/12/2020 Hepatitis B, 20+ yrs 01/04/2018,08/03/2017,07/03 Pneumococcal Conjugate Vacci ne, 20-valent ([id number]) 06/09/2022 Pneumococcal Polysaccharide PPV23 (Pneumovax) 03/06/2020 RSV [...] No 08/05/2023 Does the household have a [facility] source of income? (Household - [...] Telephone Encounter - Carolina Carey RN - 04/16/2024 11:33 AM EDT Images from the original note were not included. [facility] Remote Patient Monitoring Unable to contact patient: Trigger type: Abnormal reading(s): BULMARO Muñoz Registered Nurse Navigator Triage [facility] documented in this encounter Plan of Treatment Upcoming Encounters Date Type Department Care Team (Late st Contact Info) Description 05/09/2024 1:40 PM EST Office Visit Nephrology, [facility] [address] [place], [place] [address] Shivani Magallon MD 200 [facility] [place], [place] [address] 05/30/2024 1:00 PM EST Telemedicine [facility]iology [facility] [place] [address] [place] [address] [place] [address], Pharmacist Cardiology [facility] [address] [place] [address] 05/31/2024 3:30 PM EST Scheduled Telephone [facility], [facility] [address] [facility] [place] [address] Mery Calderon, RDN [address] [facility] [place] [address] 06/13/2024 11:15 AM EST Hospital Encounter ENDO [facility], Endoscopy Room [facility] [address] [facility] [place] [phone] José Miguel Sifuentes MD 132 [facility] [place] [address] 06/13/2024 11:15 AM EST - 06/13/2024 11:45 AM EST Surgery ENDO [facility], Endoscopy Room [facility] 132 [facility] [place] [phone] José Miguel Sifuentes MD 132 [facility] [place] [address] COLONOSCOPY FLEXIBLE PROXIMAL DIAGNOSTIC 07/01/2024 2:20 PM EST Office Visit Family Practice [address] [place] [address] 293 [place] [address] Igor Mcconnell, 293 [place] [address] 08/08/2024 9:30 AM EST Nurse Only Ancillary Lazaro Hyde[address] [place] [address] Nurse Osito [address] [place] [address] 10/27/2024 1:00 PM EDT Office Visit [facility] Disorders [facility] [address] [place] [phone] Lindsey Sheikh CRNP [address] [place] [address] Scheduled Procedures Name Priority Associated Diagnoses Date/Ti [...] this encounter Medical Devices Implanted Type Area Ethnoarchaeologist Device Identifier Shelf Expiration Date Model / Serial / Lot Lens Intraoc 21.0 - [id number] - [id number] Implanted:Qty: 1 on 01/22/2017 by Cheko Mcnamara MD at OR [facility] Right: Eye BAUSCH [employer] LOMB 08/05/2021 [id number] / [id number] / [id number] Lens Intraoc 21.5 - [id number] - [id number] Implanted:Qty: 1 on 02/03/2017 by Cheko Mcnamara MD at OR [facility] Left: Eye BAUSCH & LOMB 09/02/2021 [id number] / [id number] / [id number] documented as of this encounter Advance Directives [...] were consensually agreed upon. Care Teams Senior Sas Programmer Relationship Specialty Start Date End Date Igor Mcconnell DO 293 [place] [address] PCP - General Internal Medicine 02/12/24 documented as of this encounter
--- OUTSIDE RECORDS SUMMARY | 2024-08-26 02:38 | External Medical Summary | Summary of Care ---
Author Name Unknown Organization [facility] Address [address] [facility] [place] [address] Phone [phone] Care Team Providers Care Child Caregiver Name Role Phone Igor Mcconnell DO Primary Care Provider [phone] Reason for Visit * Reason Onset Date Comments Medical Nutrition Therapy 04/15/2024 Encounter Details Date Type Department Care Team (Latest Contact Info) Description 04/15/2024 8:30 AM EDT Scheduled Telephone [facility], [facility] [address] [facility] [place] [address] Mery Calderon, RDN [address] [facility] [place] [address] Hypertensive heart and kidney disease with chronic [...] as of this encounter (statuses as of 04/15/2024) Medications Medication Sig Dispensed Refills Start Date [...] DX: E11.9 300 Strip 3 09/23/2023 Active Glvkp-8-gxoa Ethyl Esters 1 GM Oral Capsule (Lovaza) [...] hemoglobin A1c goal of less than 7.0% ([facility]) INJECT UNDER THE SKIN 100 UNITS TWICE DAILY OR DIRECTED 90 mL 3 01/18/2024 Active Additional Information Patient taking differently: 90 Units Subcutaneous BID(Non-Specified), Reported on 02/12/2024 Torsemide 20 MG Oral Tablet (Demadex)Indications :Chronic heart failure with preserved ejection fraction ([facility]),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 disease ([facility]) Take 4 Tablets by mouth in the [...] disease, with long-term current use of insulin ([facility]) Inject 2 mg under the skin once [...] hemoglobin A1c goal of less than 7.0% ([facility]) INJECT UNDER THE SKIN 20 UNITS AT BREAKFAST, 26 UNITS AT LUNCH, 38 UNITS WITH DINNER PLUS CORRECTION PER [facility] OR DIRECTED UP TO 120 UNITS PER DAY 120 mL 3 03/21/2024 Active DIURETIC TITRATION PLAN If no improvement on day 3, contact [facility] for possible home visit 1 [...] as of this encounter (statuses as of 04/15/2024) Active Problems Patient Care Coordination No te [...] in the Comments) Remote Patient Monitoring Vendor: [employer] Device(s): Connected Scale Self - Management Plan [...] as of this encounter (statuses as of 04/15/2024) Resolved Problems Problem Noted Date Diagnosed Date [...] has been better controlled recently. Monitor using [employer] Cindy. NEMESIO (acute kidney injury) 04/30/2022 Severe [...] as of this encounter (statuses as of 04/15/2024) Immunizations Name Administration Dates Next Due COVID-19 mRNA, LNP-s, No Pre serve, 2-Dose Series (Moderna) 12/10/2020,11/12/2020 Hepatitis B, 20+ yrs 01/04/2018,08/03/2017,07/03 Pneumococcal Conjugate Vacci ne, 20-valent ([id number]) 06/09/2022 Pneumococcal Polysaccharide PPV23 (Pneumovax) 03/06/2020 RSV [...] money to buy more. Never true 08/05/19 Within the past 12 months, t he [...] Telephone Encounter - Mery Calderon RDN - 04/15/2024 7:46 AM EDT NUTRITION PROGRESS NOTE - [facility] [employer] Patient Phone Numbers: Call placed to pt as follow-up from initial nutrition assessment from 03/02/24. Patient denies any issues related to diet [...] a week Alcohol: None Tobacco Use: No Currently living with his who continues to assist with transportation/care/food shopping/prepping/cooking of meals Testing BS 3-4x daily (utilizing the Cindy) Recently, BS ranging 250-300's This dietitian reinforced the importance of avoiding those foods high in sodium/sugar for better heart/lung health, to prevent edema, and for better BS control Healthy options provided/info previously sent Followed closely by [address] [place] [address] Pharmacy (next appt 07/01/24) PO intake and appetite remain "always good" since last call No difficulties reported this call Since last call, continued C/O SOB and "feeling breathless" Reinforced the need to stay physically active with bedside/chair exercises (provided encouragement/encouraged 2-3x/week/info sent previously) This dietitian continues to instruct and reinforce the importance of restricting high sodium/high sugar foods, but admits to not always restricting (BLE edema noted/healthy options provided/info sent) No food insecurity reported this call Most recent Uric Acid lab work continues to improve (see below) Encouraged Patient to continue to avoid foods high in uric acid (info sent previously) Latest Reference Range & Units 03/01/24 12:12 03/11/24 08:04 04/01/24 14:26 Uric Acid 3.4 - 7.0 mg/dL 12.9 (H) 10.2 (H) 9.9 (H) (H): Data is abnormally high Patient denies any issues related to changes in wt. Wt Readings from Last 3 Encounters: 03/16/24 124.2 kg (273 lb 14.4 oz) 03/11/24 130.6 kg (288 lb) 03/03/24 132.2 kg (291 lb 8 oz) Previous Nutrition Goals: 1) Consume 3 meals/day plus HS snack of nutritious, low sodium/low sugar foods with consistent carbohydrates (reviewed healthier foods to consume and those foods to avoid/sent info previously)--in progress 2) Consume more fruits/vegetables at HS snack vs cookies (reviewed My Plate Method/seasonal fruits and vegs suggested/info sent previously)--in progress 3) Encouraged to do bedside/chair exercises/2-3x per week/walks (info previously sent)--in progress-provided encouragement New Nutrition Goal Last Call: 1) Adhere to Low Purine Diet due to Gout diagnosis (elevated uric acid levels, but continue to improve/see above/reinforced foods to avoid/consume/sent info)--in progress Reinforced nutrition goals. Encouraged continued progress towards goals Follow up as scheduled. Encouraged pt to contact [facility] at [phone] for any non-emergent changes/concerns. Mery Calderon MS, VIVIANAN, LDN Clinical Dietitian [facility] 04/15/2024 7:46 AM documented in this encounter Plan of Treatment Upcoming Encounters Date Type Department Care Team (Late st Contact Info) Description 05/09/2024 1:40 PM EST Office Visit Nephrology, [facility] 200 [facility] [place] [address] Shivani Magallon MD 200 [facility] [place] [address] 05/30/2024 1:00 PM EST Telemedicine [facility]iology [facility] [place] [address] [place] [address] [place] [address], Pharmacist Cardiology [facility] [address] [place] [address] 05/31/2024 3:30 PM EST Scheduled Telephone [facility], [facility] [address] [facility] [place] [address] Mery Calderon RDN [address] [facility] [place] [address] 06/13/2024 11:15 AM EST Hospital Encounter ENDO [facility], Endoscopy Room [facility] [address] [place] [phone] José Miguel Sifuentes MD 132 [facility] [place] [address] 06/13/2024 11:15 AM EST - 06/13/2024 11:45 AM EST Surgery ENDO [facility], Endoscopy Room [facility] [place] [phone] José Miguel Sifuentes MD 132 [facility] [place] [address] COLONOSCOPY FLEXIBLE PROXIMAL DIAGNOSTIC 07/01/2024 2:20 PM EST Office Visit Family Practice [address] [place] [address] 293 [facility] [place] [address] Igor Mcconnell, 293 [place] [address] 08/08/2024 9:30 AM EST Nurse Only Ancillary [address] [place] [address] [place], Nurse [address] [place] [address] 10/27/2024 1:00 PM EDT Office Visit Sleep Disorders Ctr [facility] 132 [employer] [place] [phone] Lindsey Sheikh CRNP 132 [facility] [place] [address] Scheduled Procedures Name Priority Associated Diagnoses Date/Ti [...] this encounter Medical Devices Implanted Type Area Hot Room Attendant Device Identifier Shelf Expiration Date Model / Serial / Lot Lens Intraoc 21.0 - [id number] - [id number] Implanted:Qty: 1 on 01/22/2017 by Cheko Mcnamara MD at OR [facility] Right: Eye BAUSCH [employer] LOMB 08/05/2021 [id number] / [id number] / [id number] Lens Intraoc 21.5 - [id number] - [id number] Implanted:Qty: 1 on 02/03/2017 by Cheko Mcnamara MD at OR [facility] Left: Eye BAUSCH & LOMB 09/02/2021 [id number] / [id number] / [id number] documented as of this encounter Visit Diagnoses [...] and were consensually agreed upon. Care Teams Child Caregiver Relationship Specialty Start Date End Date Igor Mcconnell DO 293 [place] [address] PCP - General Internal Medicine 02/12/24 documented as of this encounter
--- OUTSIDE RECORDS SUMMARY | 2024-08-26 02:38 | External Medical Summary | Summary of Care ---
Author Name Unknown Organization [facility] Address [address] [facility] [place] [address] Phone [phone] Care Team Providers Care Patient Liaison Name Role Phone Igor Mcconnell DO Primary Care Provider [phone] Reason for Visit * Reason Onset Date Comments [facility]: Maintenance 04/08/2024 Encounter Details Date Type Department Care Team (Late st Contact Info) Description 04/08/2024 Telephone [facility], [facility] [address] [facility] [place] [address] Carolina Carey RN [address] [facility] [address] [facility]: Maintenance Allergies Active Allergy [...] TIMES DAILY 500 Each 3 3 Active Carvedilol 25 MG Oral [...] DX: E11.9 300 Strip 3 4 Active Lnfvc-6-ckpf Ethyl Esters 1 GM Oral Capsule (Lovaza) [...] ns:Chronic heart failure with preserved ejection fraction ([facility]),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 disease ([facility]) Take 4 Tablets by mouth in the [...] a week. 2 mL 11 4 Active Clotrimazole-Betam ethasone 1-0.05 % External [...] 4 Active metOLazone 2.5 MG Oral Tablet (Zaroxolyn)Indicat ions: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) Take 1 tablet as needed for > 3 lb weight gain in 1 day, or > 5 lb weight gain in 1 week. Do not start before March 14, 2024. 4 Active Allopurinol 300 MG Oral Tablet (Zyloprim)Indicati [...] [facility] for possible home visit 1 Each 4 Active Evolocumab 140 MG/ML Subcutaneous Solution Auto-injector (Repatha SureClick)Indicati ons:Dyslipidemia, goal LDL below 100,Mixed dyslipidemia Inject 140 mg under the skin every 14 days. 6 mL 3 4 Active Potassium Chloride Gaviota ER 20 MEQ Oral Tablet Extended Release Take 1 Tablet by mouth in the morning and 1 Tablet before bedtime. 180 Tablet 3 4 04/14/20 24 Discontinued documented as of this encounter [...] in the Comments) Remote Patient Monitoring Vendor: [employer] Device(s): Connected Scale Self - Management Plan [...] yrs 01/04/2018,08/03/2017,07/03 Pneumococcal Conjugate Vacci ne, 20-valent ([id number]) 06/09/2022 Pneumococcal Polysaccharide PPV23 (Pneumovax) 03/06/2020 RSV [...] Miscellaneous Notes * Telephone Encounter - Elizabeth Pineda PA-C - 04/14/2024 12:28 PM EDT Noted. No additional changes or recommendations at this time. * Telephone Encounter - Leta Bhandari LPN - 04/08/2024 3:56 PM EDT Spoke with pt by phone Pt states some swelling and weight gain, but nothing out of the ordinary for him. He is aware of the diurectic titration plan and follows as ordered. Says breathing is painful d/t fx and bruised ribs. But denies SOB or wet cough. Requesting records from [facility]. * Telephone Encounter - Elizabeth Pineda PA-C - 04/08/2024 3:39 PM EDT Noted. Patient with chronic HFpEF BNP not significantly elevated, based on age and consistent with past findings reviewed below. Latest Reference Range & Units 11/21/22 12:46 12/12/22 14:15 10/19/23 12:58 BNP, NT-Pro <300 pg/mL 731 (H) 853 (H) 326 (H) (H): Data is abnormally high Exclude Heart Failure: <300 pg/mL Diagnose Heart Failure: Age <50 yr: >450 pg/mL 50-75 yr: >900 pg/mL >75 yr: >1800 pg/mL Nursing staff - can we reach out to patient and just ask about fluid status/symptoms over the phone- Increased SOB? Edema? Weight gain? Also request records from ER visit * Telephone Encounter - Carolina Carey RN - 04/08/2024 1:18 PM EDT [facility] freezer operator Acute Call Date: 04/08/2024 Time: 1:18 PM Name: Tony Delong : 1960 Caller: Tony Relationship to self No chief complaint on file. HPI: Tony Delong is a 64 year old male that is calling [facility] Intake to report that he went to [facility] for a rib x-ray as he fell this past Thursday. Reports there is no rib fracture or any fractures. While at [facility] he had a BNP done and was 692. 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 Message forwarded per request BULMARO Muñoz Registered Nurse Navigator Triage [facility] documented in this encounter Plan of Treatment Upcoming Encounters Date Type Department Care Team (Late st Contact Info) Description 04/15/2024 8:30 AM EDT Scheduled Telephone [facility], [facility] [address] [facility] [place] [address] Mery Calderon RDN [address] [facility] [place] [address] 05/09/2024 1:40 PM EST Office Visit Nephrology, [facility] 200 [facility] [place] [address] Shivani Magallon MD [address] [place] [address] 05/30/2024 1:00 PM EST Telemedicine Cardiology [facility] [place] [address] [place] [address] [place] [address], Pharmacist Cardiology [facility] [address] [place] [address] 06/13/2024 11:15 AM EST Hospital Encounter [facility], Endoscopy Room [facility] [address] [place] [phone] José Miguel Sifuentes MD [address] [place] [address] 06/13/2024 11:15 AM EST - 06/13/2024 11:45 AM EST Surgery [facility], Endoscopy Room [facility] [address] [place] [phone] José Miguel Sifuentes MD [address] [place] [address] COLONOSCOPY FLEXIBLE PROXIMAL DIAGNOSTIC 07/01/2024 2:20 PM EST Office Visit Family Practice [address] [facility] [place] 293 [place] [address] Igor Mcconnell, 293 [place] [address] 08/08/2024 9:30 AM EST Nurse Only Ancillary Lazaro Hyde[address] [place] [address] Os[place] Nurse [address] [place] [address] 10/27/2024 1:00 PM EDT Office Visit [facility] Disorders Ctr [facility] 132 [facility] [place] [phone] Lindsey Sheikh CRNP [facility] [address] Scheduled Procedures Name Priority Associated Diagnoses Date/Ti [...] 08/14/2024 02/12/2024, 0401/2024, 06/11/2023, Additional history exists GFR 10/12/2024 04/13/2024, [...] Serial / Lot Lens Intraoc 21.0 - [id number] - [id number] Implanted:Qty: 1 on 01/22/2017 by Cheko Mcnamara MD at OR [facility] Right: Eye BAUSCH & LOMB 08/05/2021 [id number] / [id number] / [id number] Lens Intraoc 21.5 - [id number] - [id number] Implanted:Qty: 1 on 02/03/2017 by Cheko Mcnamara MD at OR [facility] Left: Eye BAUSCH & LOMB 09/02/2021 [id number] / [id number] / [id number] documented as of this encounter Advance Directives [...] were consensually agreed upon. Care Teams Patient Liaison Relationship Specialty Start Date End Date Igor Mcconnell DO 293 [facility] [place] [address] PCP - General Internal Medicine 02/12/24 documented as of this encounter
--- OUTSIDE RECORDS SUMMARY | 2024-08-26 02:38 | External Medical Summary | Summary of Care ---
Author Name Unknown Organization [facility] Address [address] [facility] [place] [address] Phone [phone] Care Team Providers Care Maintenance Worker Municipal Name Role Phone Igor Mcconnell DO Primary Care Provider [phone] Reason for Visit * Reason Comments Medication Refill Encounter Details Date Type Department Care Team (Late st Contact Info) Description 04/18/2024 Refill Cardiology [place] [address] [place] [phone] Evita Brennan CRNP [address] [place] [address] Allergies Active Allergy Reactions Criticality Noted Date [...] DX: E11.9 300 Strip 3 4 Active Omeprazole 20 MG Oral Capsule [...] of insulin ([facility]) Inject 2 mg under the skin [...] than 7.0% ([facility]) INJECT UNDER THE SKIN 20 UNITS AT BREAKFAST, 26 UNITS AT LUNCH, 38 UNITS WITH DINNER PLUS CORRECTION PER [facility] OR DIRECTED UP TO 120 UNITS PER DAY 120 mL 3 4 Active DIURETIC TITRATION PLAN If no improvement on day 3, contact [facility] for possible home visit 1 Each 4 [...] than 7.0% ([facility]) USE TO INJECT INSULINS 5 TIMES DAILY 500 Each 3 4 Active Epfex-2-wyxm Ethyl Esters 1 GM Oral Capsule (Lovaza) [...] 1 week. 100 Tablet 5 4 Active Ddpzi-2-fgyq Ethyl Esters 1 GM Oral Capsule (Lovaza) Take 2 Capsules by mouth in the morning and 2 Capsules before bedtime. 360 Capsule 1 4 04/18/20 24 Discontinu ed(Refill) documented as of this [...] the Comments) Remote Patient Monitoring Vendor: [facility] [...] and RDN Other specified peripheral vascular diseases 01/2002/12/2024 Sacroiliitis 09/02/2022 10/20/2023 Type 2 diabetes mellitus [...] has been better controlled recently. Monitor using Sapheonstyle Cindy. NEMESIO (acute kidney injury) 04/30/2022 Severe [...] yrs 01/04/2018,08/03/2017,07/03 Pneumococcal Conjugate Vacci ne, 20-valent ([id number]) 06/09/2022 Pneumococcal Polysaccharide PPV23 (Pneumovax) 03/06/2020 RSV [...] No 08/05/2023 Does the household have a presbyterian kaseman [...] Miscellaneous Notes * Telephone Encounter - Kaylynn Goldstein [facility] - 04/18/2024 2:23 PM EDTSigned Prescriptions: Disp Refills Vcolg-6-eiqm Ethyl Esters 1 GM Oral Capsul*360 Ca*1 Sig: Take 2 Capsules by mouth in the morning and 2 Capsules before bedtime.Authorizing Provider: MARCELO VANEGAS User: KAYLYNN GOLDSTEIN documented in this encounter Plan of Treatment Upcoming Encounters Date Type Department Care Team (Late st Contact Info) Description 05/09/2024 1:40 PM EST Office Visit Nephrology, Susan Palacios 200 [facility] [place] [address] Shivani Magallon MD 200 [facility] [place] [address] 05/30/2024 1:00 PM EST Telemedicine Cardiology [facility], [place] [address] [place] [address] [place] [address], Pharmacist Cardiology [facility] [address] [place] [address] 05/31/2024 3:30 PM EST Scheduled Telephone [facility], [facility] [address] [facility] [place] [address] Mery Calderon, RDN [address] [facility] [place] [address] 06/13/2024 11:15 AM EST Hospital Encounter ENDO [facility], Endoscopy Room [facility] [address] [place] [phone] José Miguel Sifuentes MD [address] [place] [address] 06/13/2024 11:15 AM EST - 06/13/2024 11:45 AM EST Surgery ENDO [facility], Endoscopy Room [facility] [address] [place] [phone] José Miguel Sifuentes MD 132 [facility] [place] [address] COLONOSCOPY FLEXIBLE PROXIMAL DIAGNOSTIC 07/01/2024 2:20 PM EST Office Visit Family Practice [address] [place] [address], [place] 293 [facility] [address] Igor Mcconnell, 293 [place] [address] 08/08/2024 9:30 AM EST Nurse Only Ancillary [address] [place] [address] [place], Nurse [address] [place] [address] 10/27/2024 1:00 PM EDT Office Visit Sleep Disorders Ctr [facility] 132 [facility] [place] [phone] Lindsey Sheikh CRNP 132 [facility] [place] [address] Scheduled Procedures Name Priority Associated Diagnoses Date/Ti [...] this encounter Medical Devices Implanted Type Area Train Engineer Device Identifier Shelf Expiration Date Model / Serial / Lot Lens Intraoc 21.0 - [id number] - [id number] Implanted:Qty: 1 on 01/22/2017 by Cheko Mcnamara MD at OR [facility] Right: Eye BAUSCH & LOMB 08/05/2021 [id number] / [id number] / [id number] Lens Intraoc 21.5 - [id number] - [id number] Implanted:Qty: 1 on 02/03/2017 by Cheko Mcnamara MD at OR [facility] Left: Eye BAUSCH & LOMB 09/02/2021 [id number] / [id number] / [id number] documented as of this encounter Advance Directives [...] and were consensually agreed upon. Care Teams Maintenance Worker Municipal Relationship Specialty Start Date End Date Igor Mcconnell DO 293 [place] [address] PCP - General Internal Medicine 02/12/24 documented as of this encounter
--- OUTSIDE RECORDS SUMMARY | 2024-08-26 02:38 | External Medical Summary | Summary of Care ---
Author Name Unknown Organization [facility] Address [address] [facility] [place] [address] Phone [phone] Care Team Providers Care Hard Rock Miner Name Role Phone Enedina Igor Longoria DO Primary Care Provider [phone] Encounter Details Date Type Department Care Team (Late st Contact Info) Description 04/19/2024 Population Health External Data Unspecified Department Allergies Active Allergy Reactions Criticality Noted Date Comments Metolazone Renal complications 11/10/2023 Note prior DTP with metolazone resulted in acute renal failure Other Allergy (See Comments) Rash Low 10/13/2022 1+ cocamidopropyl betaine Sglt2 Inhibitors Other (Please comment) High 09/04/2020 Genital infection Sulfa Antibiotics Rash 10/15/2016 documented as of this encounter (statuses as of 04/20/2024) Medications Medication Sig Dispensed Refills Start Date [...] goal of less than 7.0% ([facility]) INJECT UNDER THE SKIN 20 UNITS AT BREAKFAST, 26 UNITS AT LUNCH, 38 UNITS WITH DINNER PLUS CORRECTION PER [facility] OR DIRECTED UP TO [...] TIMES DAILY 500 Each 3 04/18/2024 Active Xtyax-0-kmiv Ethyl Esters 1 GM Oral Capsule (Lovaza) [...] as of this encounter (statuses as of 04/20/2024) Active Problems Patient Care Coordination No te Formatting of this note migh t be different from the original. Heart Failure Self-Management and Exacerbation Plan "RED FLAG" HF Symptoms: Leg Swelling Abdominal Bloating Increased dyspnea on exertion Increased shortness of breath at rest Orthopnea Remote Patient Monitoring Vendor: [facility] Device(s): Connected Scale Self - Management [...] in the Comments) Remote Patient Monitoring Vendor: [employer] Device(s): Connected Scale Self - Management Plan [...] 08/18/2017 Last Assessment & Plan: Continues on lovlynn 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 repatha History of [...] as of this encounter (statuses as of 04/20/2024) Resolved Problems Problem Noted Date Diagnosed Date [...] as of this encounter (statuses as of 04/20/2024) Immunizations Name Administration Dates Next Due COVID-19 mRNA, LNP-s, No Pre serve, 2-Dose Series (Moderna) 12/10/2020,11/12/2020 Hepatitis B, 20+ yrs 01/04/2018,08/03/2017,07/03 Pneumococcal Conjugate Vacci ne, 20-valent ([id number]) 06/09/2022 Pneumococcal Polysaccharide PPV23 (Pneumovax) 03/06/2020 RSV [...] EST Office Visit Nephrology, [facility] 200 [facility] [place] [address] Shivani Magallon MD 200 [place] [address] 05/30/2024 1:00 PM EST Telemedicine Cardiology [facility], [place] [address] [place] [address] [facility], Pharmacist Cardiology [facility] [address] [place] [address] 05/31/2024 3:30 PM EST Scheduled Telephone [facility], [facility] [address] [facility] [place] [address] Mery Calderon RDN [address] [facility] [place] [address] 06/13/2024 11:15 AM EST Hospital Encounter ENDO OSS, Endoscopy Room [facility] [address] [place] [phone] José Miguel Sifuentes MD [address] [place] [address] 06/13/2024 11:15 AM EST - 06/13/2024 11:45 AM EST Surgery ENDO OSS, Endoscopy Room [facility] [place] [phone] José Miguel Sifuentes MD [address] [place] [address] COLONOSCOPY FLEXIBLE PROXIMAL DIAGNOSTIC 07/01/2024 2:20 PM EST Office Visit Family Practice [address] [place] [address] 293 [place] [address] Igor Mcconnell DO 293 [place] [address] 08/08/2024 9:30 AM EST Nurse Only Ancillary [address] [place] [address] [place], Nurse [address] [place] [address] 10/27/2024 1:00 PM EDT Office Visit Sleep Disorders Ctr [facility] 132 [facility] [place] [phone] Lindsey Sheikh CRNP [facility] [place] [address] Scheduled Procedures Name Priority Associated Diagnoses Date/Ti [...] Medical Devices Implanted Type Area Sales Team Manager Device Identifier Shelf Expiration Date Model / Serial / Lot Lens Intraoc 21.0 - [id number] - [id number] Implanted:Qty: 1 on 01/22/2017 by Cheko Mcnamara MD at OR [facility] Right: Eye BAUSCH & LOMB 08/05/2021 [id number] / [id number] / [id number] Lens Intraoc 21.5 - [id number] - [id number] Implanted:Qty: 1 on 02/03/2017 by Cheko Mcnamara MD at OR [facility] Left: Eye BAUSCH & LOMB 09/02/2021 [id number] / [id number] / [id number] documented as of this encounter Advance Directives [...] were consensually agreed upon. Care Teams Hard Rock Miner Relationship Specialty Start Date End Date Igor Mcconnell DO 293 [facility] [place] [address] PCP - General Internal Medicine 02/12/24 documented as of this encounter
--- OUTSIDE RECORDS SUMMARY | 2024-08-26 02:39 | External Medical Summary | Summary of Care ---
Author Name Unknown Organization [facility] Address [address] [facility] [place] [address] Phone [phone] Care Team Providers Care Airport Sales Agent Name Role Phone FaizachuIgor DO Primary Care Provider [phone] Encounter Details Date Type Department Care Team (Late st Contact Info) Description 04/08/2024 Result Scan Unspecified Department <No scans attached> Allergies Active Allergy Reactions Criticality Noted Date Comments Metolazone Renal complications 11/10/2023 Note prior DTP with metolazone resulted in acute renal failure Other Allergy (See Comments) Rash Low 10/13/2022 1+ cocamidopropyl betaine Sglt2 Inhibitors Other (Please comment) High 09/04/2020 Genital infection Sulfa Antibiotics Rash 10/15/2016 documented as of this encounter (statuses as of 04/12/2024) Medications Medication Sig Dispensed Refills Start Date [...] of less than 7.0% ([facility]) Use as directed every 14 [...] DX: E11.9 300 Strip 3 09/23/2023 Active Wbljm-7-rpeg Ethyl Esters 1 GM Oral Capsule (Lovaza) [...] disease, with long-term current use of insulin ([facility]) Inject 2 mg under the skin once a week. 2 mL 11 02/16/2024 Active Potassium Chloride Gaviota ER 20 MEQ Oral Tablet Extended Release Take 1 Tablet by mouth in the morning and 1 Tablet before bedtime. 180 Tablet 3 02/18/2024 Active Clotrimazole-Betamet hasone 1-0.05 % External Cream [...] 38 UNITS WITH DINNER PLUS CORRECTION PER [facility] OR DIRECTED UP TO [...] as of this encounter (statuses as of 04/12/2024) Active Problems Patient Care Coordination No te Formatting of this note migh t be different from the original. Heart Failure Self-Management and Exacerbation Plan "RED FLAG" HF Symptoms: Leg Swelling Abdominal Bloating Increased dyspnea on exertion Increased shortness of breath at rest Orthopnea Remote Patient Monitoring Vendor: [facility] [...] in the Comments) Remote Patient Monitoring Vendor: [employer] Device(s): Connected Scale Self - Management Plan [...] as of this encounter (statuses as of 04/12/2024) Resolved Problems Problem Noted Date Diagnosed Date [...] as of this encounter (statuses as of 04/12/2024) Immunizations Name Administration Dates Next Due COVID-19 mRNA, LNP-s, No Pre serve, 2-Dose Series (Moderna) 12/10/2020,11/12/2020 Hepatitis B, 20+ yrs 01/04/2018,08/03/2017,07/03 Pneumococcal Conjugate Vacci ne, 20-valent ([id number]) 06/09/2022 Pneumococcal Polysaccharide PPV23 (Pneumovax) 03/06/2020 RSV [...] Telephone [facility], [facility] 1000 [address] [facility] [place] [address] Mery Calderon, [place] [address] [place] [facility] [address] 05/09/2024 1:40 PM EST Office Visit Nephrology, Susan Palacios 200 [address] [place] [address] Shivani Magallon MD [address] [place] [address] 05/30/2024 1:00 PM EST Telemedicine Cardiology [facility], [place] [address] [place] [facility] [place] [address] [facility], Pharmacist Cardiology [facility] [address] [facility] [address] 06/13/2024 11:15 AM EST Hospital Encounter ENDO OSS, Endoscopy Room [facility] [address] [place] [phone] José Miguel Sifuentes MD [address] [place] [address] 06/13/2024 11:15 AM EST - 06/13/2024 11:45 AM EST Surgery ENDO [facility], Endoscopy Room [facility] [address] [place] [phone] José Miguel Sifuentes MD [address] [place] [address] COLONOSCOPY FLEXIBLE PROXIMAL DIAGNOSTIC 07/01/2024 2:20 PM EST Office Visit Family [address] 293 [place] [address] Igor Mcconnell, 293 [place] [address] 08/08/2024 9:30 AM EST Nurse Only Ancillary [address] [place] [address] [place], Nurse [address] [place] [address] 10/27/2024 1:00 PM EDT Office Visit Sleep Disorders Ctr [facility] 132 [facility] [place] [phone] Lindsey Sheikh CRNP [facility] [place] [address] Scheduled Procedures Name Priority Associated Diagnoses Date/Ti [...] 02/12/2024, 10/04, 06/11/2023, Additional history exists GFR 09/29/2024 04/01/2024, 09/0 12/2023, 02/24/2024, Additional history exists Diabetic Foot Exam 10/19/2024 [...] encounter Medical Devices Implanted Type Area District Resource Officer Device Identifier Shelf Expiration Date Model / Serial / Lot Lens Intraoc 21.0 - [id number] - [id number] Implanted:Qty: 1 on 01/22/2017 by Cheko Mcnamara MD at OR [facility] Right: Eye BAUSCH & LOMB 08/05/2021 [id number] / [id number] / [id number] Lens Intraoc 21.5 - [id number] - [id number] Implanted:Qty: 1 on 02/03/2017 by Cheko Mcnamara MD at OR [facility] Left: Eye BAUSCH & LOMB 09/02/2021 [id number] / [id number] / [id number] documented as of this encounter Procedures Procedure Name Priority Date/Time Associated Diagnosis Comments OUTSIDE LAB RESULTS 04/08/2024 documented in this encounter Results * OUTSIDE LAB RESULTS (04/08/2024) 04/08/2024 No Physician Data Unknown LABORATORY documented in this encounter Advance Directives * [...] were consensually agreed upon. Care Teams Airport Sales Agent Relationship Specialty Start Date End Date Igor Mcconnell DO [address] [place] [facility] [place] [address] PCP - General Internal Medicine 02/12/24 documented as of this encounter
--- OUTSIDE RECORDS SUMMARY | 2024-08-26 02:39 | External Medical Summary ---
Author Name Unknown Address Unknown Organization K01:[facility] - [address] [place] [address] Laboratory Report Ordering Provider Test Date Status ANGE GARCÍA 04/13/2024 10:22:54 Final Observation Date Value Abnormality Reference (Units ) Status Albumin 04/13/2024 10:22:54 4.3 3.8-5.0 (g/dL) Final AST (Aspartate aminotransferase) 04/13/2024 10:22:54 59 Above high normal 10-50 (U/L) Final Alk Phos 04/13/2024 10:22:54 131 Above high normal 35-130 (U/L) Final ALT (Alanine aminotransferase) 04/13/2024 10:22:54 48 10-50 (U/L) Final Bilirubin, Total 04/13/2024 10:22:54 0.7 <=1.2 (mg/dL) Final Bilirubin, Direct 04/13/2024 10:22:54 0.3 0.0-0.3 (mg/dL) Final Protein 04/13/2024 10:22:54 8.1 6.0-8.3 (g/dL) Final Performing Location [facility] - [address] [place] [address]
--- OUTSIDE RECORDS SUMMARY | 2024-08-26 02:39 | External Medical Summary | Summary of Care ---
Author Name Unknown Organization [facility] Address [address] [place] [address] Phone [phone] Care Team Providers Care Buggy Operator Name Role Phone Igor Mcconnell DO Primary Care Provider [phone] Encounter Details Date Type Department Care Team (Late st Contact Info) Description 04/11/2024 Orders Only Family Practice [address] [facility] 293 [place] [address] Igor Mcconnell DO 293 [place] [address] Allergies Active Allergy Reactions Criticality Noted Date Comments Metolazone Renal complications 11/10/2023 Note prior DTP with metolazone resulted in acute renal failure Other Allergy (See Comments) Rash Low 10/13/2022 1+ cocamidopropyl betaine Sglt2 Inhibitors Other (Please comment) High 09/04/2020 Genital infection Sulfa Antibiotics Rash 10/15/2016 documented as of this encounter (statuses as of 04/11/2024) Medications Medication Sig Dispensed Refills Start Date [...] hemoglobin A1c goal of less than 7.0% ([facility]) Use as directed every 14 days . [...] BEFORE BEDTIME 200 Tablet 3 04/19/2023 Active Evolocumab 140 MG/ML Subcutaneous Solution Auto-injector [...] DX: E11.9 300 Strip 3 09/23/2023 Active Ptyid-8-jewt Ethyl Esters 1 GM Oral Capsule (Lovaza) [...] disease, with long-term current use of insulin ([facility]) Inject 2 mg under the skin [...] hemoglobin A1c goal of less than 7.0% ([facility]) INJECT UNDER THE SKIN 20 UNITS AT BREAKFAST, 26 UNITS AT LUNCH, 38 UNITS WITH DINNER PLUS CORRECTION PER [facility] OR DIRECTED UP TO 120 UNITS PER DAY 120 mL 3 03/21/2024 Active DIURETIC TITRATION PLAN If no improvement on day 3, contact [facility] for possible home visit 1 Each 03/24/2024 Active Evolocumab 140 MG/ML Subcutaneous Solution Auto-injector (Repatha SureClick)Indication s:Dyslipidemia, goal LDL below 100,Mixed dyslipidemia Inject 140 mg under the skin every 14 days. 6 mL 3 03/24/2024 Active documented as of this encounter (statuses as of 04/11/2024) Active Problems Patient Care Coordination No te [...] as of this encounter (statuses as of 04/11/2024) Resolved Problems Problem Noted Date Diagnosed Date [...] as of this encounter (statuses as of 04/11/2024) Immunizations Name Administration Dates Next Due COVID-19 mRNA, LNP-s, No Pre serve, 2-Dose Series (Moderna) 12/10/2020,11/12/2020 Hepatitis B, 20+ yrs 01/04/2018,08/03/2017,07/03 Pneumococcal Conjugate Vacci ne, 20-valent ([id number]) 06/09/2022 Pneumococcal Polysaccharide PPV23 (Pneumovax) 03/06/2020 RSV [...] No 08/05/2023 Does the household have a unm children's hospitallar source of income? (Household - for [...] AM EDT Scheduled Telephone [facility], [facility] [address] [facility] [address] Mery Calderon, [place] 1000 [address] [facility] [place] [address] 05/09/2024 1:40 PM EST Office Visit Nephrology, Susan Palacios [address] [place] [address] Shivani Magallon MD [address] [place] [address] 05/30/2024 1:00 PM EST Telemedicine [facility] [place] [address] [place] [address] [facility], Pharmacist Cardiology [facility] [address] [place] [facility] [address] 06/13/2024 11:15 AM EST Hospital Encounter ENDO [facility], Endoscopy Room [facility] [address] [place] [phone] José Miguel Sifuentes MD [address] [place] [address] 06/13/2024 11:15 AM EST - 06/13/2024 11:45 AM EST Surgery ENDO [facility], Endoscopy Room [facility] [address] [place] [phone] José Miguel Sifuentes MD [address] [place] [address] COLONOSCOPY FLEXIBLE PROXIMAL DIAGNOSTIC 07/01/2024 2:20 PM EST Office Visit Family Practice [address] [place] [address] 293 [place] [address] Igor Mcconnell, 293 [facility] [address] 08/08/2024 9:30 AM EST Nurse Only Ancillary [address] [place] [address] [place], Nurse [address] [place] [address] 10/27/2024 1:00 PM EDT Office Visit Sleep Disorders Ctr [facility] [address] [place] [phone] Lindsey Sheikh CRNP [address] [place] [address] Scheduled Procedures Name Priority Associated Diagnoses Date/Ti [...] 02/12/2024, 0401/2024, 06/11/2023, Additional history exists GFR 09/29/2024 04/01/2024, 09/12/2023, 02/24/2024, Additional history exists Diabetic Foot Exam 10/19/2024 10/20/2023, 0 09/02/2022, 08/16/2021, Additional history exists Phosphate 10/25/2024 10/26/2023, 0403/2024, 06/11/2023, Additional history exists Diabetic Eye Exam [...] this encounter Medical Devices Implanted Type Area Pcts Device Identifier Shelf Expiration Date Model / Serial / Lot Lens Intraoc 21.0 - [id number] - [id number] Implanted:Qty: 1 on 01/22/2017 by Cheko Mcnamara MD at OR [facility] Right: Eye BAUSCH & LOMB 08/05/2021 [id number] / [id number] / [id number] Lens Intraoc 21.5 - [id number] - [id number] Implanted:Qty: 1 on 02/03/2017 by Cheko Mcnamara MD at OR [facility] Left: Eye BAUSCH & LOMB 09/02/2021 [id number] / [id number] / [id number] documented as of this encounter Procedures Procedure Name Priority Date/Time Associated Diagnosis Comments XR CHEST 2 VIEWS Routine 04/08/2024 documented in this encounter Results * XR CHEST 2 VIEWS (04/08/2024) Anatomical Region Laterality Modality Chest Other 04/08/2024 Valery Shimmel PA-C RADIOLOGY (RAD GENER AL) documented in this encounter Advance Directives * [...] and were consensually agreed upon. Care Teams Buggy Operator Relationship Specialty Start Date End Date Igor Mcconnell DO 293 [place] [address] PCP - General Internal Medicine 02/12/24 documented as of this encounter
--- OUTSIDE RECORDS SUMMARY | 2024-08-26 02:39 | External Medical Summary | Summary of Care ---
Author Name Unknown Organization [facility] Address [address] [place] [address] Phone [phone] Care Team Providers Care Superintendent Greens Name Role Phone Igor Mcconnell DO Primary Care Provider [phone] Encounter Details Date Type Department Care Team (Late st Contact Info) Description 04/11/2024 Telephone Family Practice [facility] [place] [address] [place] [address] Igor Mcconnell DO [address] [place] [address] Allergies Active Allergy Reactions Criticality [...] DX: E11.9 300 Strip 3 09/23/2023 Active Mmloo-6-zylh Ethyl Esters 1 GM Oral Capsule (Lovaza) Take 2 Capsules by mouth in the morning and 2 Capsules before bedtime. 360 Capsule 1 10/05/2023 Active Omeprazole 20 MG Oral Capsule Delayed Release (PriLOSEC) TAKE 1 CAPSULE BY MOUTH IN THE MORNING AND 1 CAPSULE BEFORE BEDTIME 30 MINUTES BEFORE A MEAL 180 Capsule 1 10/28/2023 Active Ondansetron 4 MG Oral Tablet Disintegrating [...] and stage 4 chronic kidney disease ([facility]) Take 4 Tablets by mouth in [...] If no improvement on day 3, contact [facility] for possible home visit 1 [...] in the Comments) Remote Patient Monitoring Vendor: [facility] [...] yrs 01/04/2018,08/03/2017,07/03 Pneumococcal Conjugate Vacci ne, 20-valent ([id number]) 06/09/2022 Pneumococcal Polysaccharide PPV23 (Pneumovax) 03/06/2020 RSV [...] No 08/05/2023 Does the household have a [facility] general hospitall[facility] source of income? (Household - for [...] Telephone Encounter - Igor Mcconnell DO - 04/11/2024 12:13 PM EDT Noted * Telephone Encounter - Zulema Barragan RN - 04/11/2024 9:22 AM EDT Pt was seen in [place] at the [facility]. pt states that on Thursday he was going up the wooden ramp to the barn-it was wet and had angel on it-made it slippery-pt slipped and fell- fell backwards toward his right side-he did not hit his head.No one witness but they did hear him fall. He did not hit his head. Knocked the wind out to him. States his right side from his collarbone to his waist hurt. Very painful with change in positions=ok when sitting or standing but changing to get there really hurts, along with coughing or sneezing. Able to take a deep breath. Was a little SOB at first but that has since improved. States today still painful but not as severe. They also did lab work and told him his BNP was 692-pt states this is nota new issue for him. HE was instructed to notify his food and nutrition professor which he did. Offered to schedulean appt to f/u with Dr Mcconnell-pt declines. He will call if not improving or if having further issues. FYI to Dr Mcconnell documented in this encounter Plan of Treatment Upcoming Encounters Date Type Department Care Team (Late st Contact Info) Description 04/15/2024 8:30 AM EDT Scheduled Telephone [facility], [facility] [address] [facility] [place] [address] Mery Calderon, RDN [address] [facility] [place] [address] 05/09/2024 1:40 PM EST Office Visit [facility] [address] [place] [address] Shivani Magallon MD [address] [facility] [place] [address] 05/30/2024 1:00 PM EST Telemedicine Cardiology [facility], [place] [address] [facility] [place] [address] [facility], Pharmacist Cardiology [facility] [address] [facility] [place] [address] 06/13/2024 11:15 AM EST Hospital Encounter ENDO [facility], Endoscopy Room [facility] [address] [facility] [place] [phone] José Miguel Sifuentes MD [address] [place] [address] 06/13/2024 11:15 AM EST - 06/13/2024 11:45 AM EST Surgery ENDO [facility], Endoscopy Room [facility] [address] [place] [phone] José Miguel Sifuentes MD [address] [facility] [place] [address] COLONOSCOPY FLEXIBLE PROXIMAL DIAGNOSTIC 07/01/2024 2:20 PM EST Office Visit Family Practice [address] [place] [address] 293 [place] [phone] Igor Mcconnell, 293 [place] [address] 08/08/2024 9:30 AM EST Nurse Only Ancillary [address] [place] [address] [place], Nurse [address] [place] [address] 10/27/2024 1:00 PM EDT Office Visit Sleep Disorders Ctr [facility] [address] [facility] [place] [phone] Lindsey Sheikh CRNP [address] [facility] [place] [address] Scheduled Procedures Name Priority Associated Diagnoses Date/Ti [...] 06/11/2023, Additional history exists GFR 09/29/2024 04/01/2024, 0912/2023, 02/24/2024, Additional history exists Diabetic Foot Exam [...] this encounter Medical Devices Implanted Type Area Mainspring Winder And Oiler Device Identifier Shelf Expiration Date Model / Serial / Lot Lens Intraoc 21.0 - [id number] - [id number] Implanted:Qty: 1 on 01/22/2017 by Cheko Mcnamara MD at OR [facility] Right: Eye [employer] LOMB 08/05/2021 [id number] / [id number] / [id number] Lens Intraoc 21.5 - [id number] - [id number] Implanted:Qty: 1 on 02/03/2017 by Cheko Mcnamara MD at OR [facility] Left: Eye BAUSCH [employer] LOMB 09/02/2021 [id number] / [id number] / [id number] documented as of this encounter Advance Directives [...] and were consensually agreed upon. Care Teams Superintendent Greens Relationship Specialty Start Date End Date Igor Mcconnell DO [address] [place] [address] PCP - General Internal Medicine 02/12/24 documented as of this encounter
--- OUTSIDE RECORDS SUMMARY | 2024-08-26 02:39 | External Medical Summary ---
Author Name Unknown Address Unknown Organization K01:[facility] [address] [facility] [address] [place] [address] Laboratory Report Ordering Provider Test Date Status LIAM ORTEGA 04/13/2024 10:22:54 Final Observation Date Value Abnormality Reference (Units ) Status BUN 04/13/2024 10:22:54 70 Above high normal 6-20 (mg/dL) Final Creatinine 04/13/2024 10:22:54 2.3 Above high normal 0.6-1.2 (mg/dL) Final Glomerular filtration rate/1.73 sq M.predicted [Volume Rate/Area] in Serum, Plasma or Blood by Creatinine-based formula (CKD-EPI) 04/13/2024 10:22:54 32 Below low normal >=60 (mL/min) Final eGFR is calculated based on the CKD-EPI 2020 equation. Sodium 04/13/2024 10:22:54 137 135-146 (m mol/L) Final Potassium 04/13/2024 10:22:54 3.0 Below low normal 3.5 -5.1 (mmol/L) Final Cl 04/13/2024 10:22:54 93 Below low normal 98- 107 (mmol/L) Final CO2 04/13/2024 10:22:54 27 22-32 (mmo l/L) Final Anion gap 04/13/2024 10:22:54 17 Above high normal 7- 15 (mmol/L) Final Glucose 04/13/2024 10:22:54 232 Above high normal 70 -120 (mg/dL) Final Calcium 04/13/2024 10:22:54 9.6 8.4-10.2 ( mg/dL) Final Performing Location [facility] [place] [address] [place] [address]
--- OUTSIDE RECORDS SUMMARY | 2024-08-26 02:39 | External Medical Summary | Summary of Care ---
Author Name Unknown Organization [facility] Address [address] [facility] [place] [address] Phone [phone] Care Team Providers Care Adobe Layer Name Role Phone Igor Mcconnell DO Primary Care Provider [phone] Reason for Visit * Reason Comments Outpatient Testing Encounter Details Date Type Department Care Team (Late st Contact Info) Description 04/13/2024 10:20 AM EDT Laboratory Laboratory [address] [place] [phone] [facility] [address] [place] [address] Mixed dyslipidemia; Hypertensive heart and kidney disease [...] DX: E11.9 300 Strip 3 4 Active Iovsk-0-izgy Ethyl Esters 1 GM Oral Capsule (Lovaza) [...] ([facility]) INJECT UNDER THE SKIN 100 UNITS TWICE DAILY OR DIRECTED 90 mL 3 4 01/18/20 25 Active Additional Information Patient taking differently: 90 Units Subcutaneous BID(Non-Specified), Reported on 02/12/2024 Torsemide 20 MG Oral Tablet (Demadex)Indicatio ns:Chronic heart failure with preserved ejection fraction ([facility]),Hypertensive heart and kidney disease with chronic [...] 38 UNITS WITH DINNER PLUS CORRECTION PER [facility] OR DIRECTED UP TO 120 UNITS PER DAY 120 mL 3 4 Active DIURETIC TITRATION PLAN If no improvement on day 3, contact [facility] for possible home visit 1 [...] at rest Orthopnea Remote Patient Monitoring Vendor: [facility] Device(s): Connected Scale Self - Management Plan [...] in the Comments) Remote Patient Monitoring Vendor: [employer] Device(s): Connected Scale Self - Management Plan [...] 08/18/2017 Last Assessment & Plan: Continues on Tell[employer] 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 [employer] History of tobacco use 08/18/2017 [place] on [...] yrs 01/04/2018,08/03/2017,07/03 Pneumococcal Conjugate Vacci ne, 20-valent ([id number]) 06/09/2022 Pneumococcal Polysaccharide PPV23 (Pneumovax) 03/06/2020 RSV [...] AM EDT Scheduled Telephone [facility], [facility] [address] [facility] [place] [address] Mery Calderon, RDN [address] [facility] [place] [address] 05/09/2024 1:40 PM EST Office Visit Nephrology, Susan Palacios [address] [facility] [place] [address] MagallonShivani beth MD [address] [facility] [place] [address] 05/30/2024 1:00 PM EST Telemedicine Cardiology [facility] [place] [address] [place] [address] [place] [address], Pharmacist Cardiology [facility] [address] [place] [address] 06/13/2024 11:15 AM EST Hospital Encounter ENDO [facility], Endoscopy Room [facility] [place] [phone] José Miguel [facility]uentes MD [facility] [place] [address] 06/13/2024 11:15 AM EST - 06/13/2024 11:45 AM EST Surgery ENDO [facility], Endoscopy Room [facility] [address] [place] [phone] José Miguel Sifuentes MD [address] [place] [address] COLONOSCOPY FLEXIBLE PROXIMAL DIAGNOSTIC 07/01/2024 2:20 PM EST Office Visit Family Practice [address] [facility] [place] [address] [place] [address] Igor cMconnell, 293 [place] [address] 08/08/2024 9:30 AM EST Nurse Only Ancillary Lazaro Hyde[address] [place] [address] [place], Nurse [address] [place] [address] 10/27/2024 1:00 PM EDT Office Visit Sleep Disorders Ctr [facility] [address] [place] [phone] Lindsey Sheikh CRNP [address] [place] [address] Scheduled Procedures Name Priority Associated Diagnoses Date/Ti [...] this encounter Medical Devices Implanted Type Area Finishing Powder Press Operator Device Identifier Shelf Expiration Date Model / Serial / Lot Lens Intraoc 21.0 - [id number] - [id number] Implanted:Qty: 1 on 01/22/2017 by Cheko Mcnamara MD at [facility] Right: Eye BAUSCH [employer] LOMB 08/05/2021 [id number] / [id number] / [id number] Lens Intraoc 21.5 - [id number] - [id number] Implanted:Qty: 1 on 02/03/2017 by Cheko Mcnamara MD at OR [facility] Left: Eye BAUSCH & LOMB 09/02/2021 [id number] / [id number] / [id number] documented as of this encounter Procedures Procedure [...] 10.2 mg/dL 04/14/2024 1:26 AM EDT LABORATORY C Blood Venous blood specimen / Unknown Venipuncture / Unknown 04/13/2024 10:22 AM EDT 04/13/2024 10:22 AM EDT Shannon Wheeler PA-C LAB BLOOD ORDERABLES Performing Organization Address [facility] de Phone Number [facility] [address] [place] [address] * (ABNORMAL) HEPATIC FUNCTION PANEL (04/13/2024 10:22 [...] EDT Igor Mcconnell DO LAB BLOOD ORDERABLES Performing Organization Address [facility] Co de Phone Number LABORATORY C [address] [place] [address] documented in this encounter Visit Diagnoses Diagnosis [...] and were consensually agreed upon. Care Teams Adobe Layer Relationship Specialty Start Date End Date Igor Mcconnell DO [address] [facility] [place] [address] PCP - General Internal Medicine 02/12/24 documented as of this encounter
--- OUTSIDE RECORDS SUMMARY | 2024-08-26 02:39 | External Medical Summary | Summary of Care ---
Author Name Unknown Organization [facility] Address [address] [place] [address] Phone [phone] Care Team Providers Care Business Economist Name Role Phone Igor Mcconnell DO Primary Care Provider [phone] Reason for Visit * Reason Onset Date Comments Follow Up 04/11/2024 Encounter Details Date Type Department Care Team (Late st Contact Info) Description 04/11/2024 9:15 AM EDT Scheduled Telephone Family Practice 65 [facility] [place] [address] [place] [address] Zulema Barragan, ANNE MARIE [address] [place] [address] Allergies Active Allergy Reactions Criticality Noted Date [...] DX: E11.9 300 Strip 3 09/23/2023 Active Mmzsc-7-vebl Ethyl Esters 1 GM Oral Capsule (Lovaza) [...] :Chronic heart failure with preserved ejection fraction ([place] [...] 38 UNITS WITH DINNER PLUS CORRECTION [facility] OR DIRECTED UP TO 120 UNITS PER DAY 120 mL 3 03/21/2024 Active DIURETIC TITRATION PLAN If no improvement on day 3, contact [facility] for possible home visit 1 [...] Remote Patient Monitoring Vendor: [facility] Device(s): Connected Scale [...] in the Comments) Remote Patient Monitoring Vendor: [employer] Device(s): Connected Scale Self - Management Plan [...] yrs 01/04/2018,08/03/2017,07/03 Pneumococcal Conjugate Vacci ne, 20-valent ([id number]) 06/09/2022 Pneumococcal Polysaccharide PPV23 (Pneumovax) 03/06/2020 RSV [...] No 08/05/2023 Does the household have a [facility] source of income? (Household - for [...] Miscellaneous Notes * Telephone Encounter - Zulema Barragan RN - 04/11/2024 9:05 AM EDT Emergency Department Follow Up: When was patient seen: 04/08/24 Which ED: [facility] urgent care What were they seen for: fell, right side injury What testing did they have done: lab work and xray What did ED think was wrong (dx): no fractures Any new medications prescribed: none How is patient feeling today: pt states that on Thursday he was going up the wooden ramp to the barn-it was wet and had angel on it-made it slippery-pt slipped and fell- fell backwards toward his rightside-he did not hit his head. No one witness but they did hear him fall. He did not hit his head. Knocked the wind out to him. States his right side from his collarbone to his waist hurt. Very painful with change in positions=ok when sitting or standing but changing to get there really hurts, alongwith coughing or sneezing. Able to take a deep breath. Was a little SOB at first but that has sinceimproved. States today still painful but not as severe. They also did lab work and told him his BNPwas 692-pt states this is not a new issue for him. HE was instructed to notify his national sales executive which he did. Offered to schedule an appt to f/u with Dr Mcconnell-pt declines. He will call if not improving or if having further issues. Message sent to Dr Mcconnell Patient concerns today: documented in this encounter Plan of Treatment Upcoming Encounters Date Type Department Care Team (Late st Contact Info) Description 04/15/2024 8:30 AM EDT Scheduled Telephone [facility], [facility] [address] [facility] [place] [address] Mery Calderon RDN [address] [place] [address] 05/09/2024 1:40 PM EST Office Visit Nephrology, [facility] [address] [facility] [place] [address] Shivani Magallon MD [address] [facility] [place] [address] 05/30/2024 1:00 PM EST Telemedicine Cardiology [facility] [place] [address] [place] [address] [place] [address], Pharmacist Cardiology [facility] [address] [place] [address] 06/13/2024 11:15 AM EST Hospital Encounter ENDO [facility], Endoscopy Room [facility] [address] [place] [place] [phone] José Miguel Sifuentes MD [address] [place] [address] 06/13/2024 11:15 AM EST - 06/13/2024 11:45 AM EST Surgery ENDO [facility], Endoscopy Room [facility] [address] [place] [phone] José Miguel Sifuentes MD [facility] [place] [address] COLONOSCOPY FLEXIBLE PROXIMAL DIAGNOSTIC 07/01/2024 2:20 PM EST Office Visit Family [address] [place] [address] Igor Mcconnell, 293 [place] [address] 08/08/2024 9:30 AM EST Nurse Only Ancillary [address] [place] [address] [place], Nurse [address] [place] [address] 10/27/2024 1:00 PM EDT Office Visit Sleep Disorders Ctr [facility] [address] [facility] [place] [phone] Lindsey Sheikh CRNP [address] [facility] [place] [address] Scheduled Procedures Name Priority Associated Diagnoses Date/Ti [...] 08/16/2021, Additional history exists Phosphate 10/25/2024 10/26/2023, 04/1 03/2024, 06/11/2023, Additional history exists Diabetic Eye Exam 12/16/2024 12/17/2023, , 12/17/2023, Additional history exists Nephrology Referral 03/03/2025 03/03/2024 Hgb 03/11/2025 03/11/2024, 08/07/2023, 02/12/2024, Additional history exists O2 ASSESSMENT COMPLETED [...] this encounter Medical Devices Implanted Type Area Commercial Intern Device Identifier Shelf Expiration Date Model / Serial / Lot Lens Intraoc 21.0 - [id number] - [id number] Implanted:Qty: 1 on 01/22/2017 by Cheko Mcnamara MD at OR [facility] Right: Eye BAUSCH & LOMB 08/05/2021 [id number] / [id number] / [id number] Lens Intraoc 21.5 - [id number] - [id number] Implanted:Qty: 1 on 02/03/2017 by Cheko Mcnamara MD at OR [facility] Left: Eye BAUSCH & LOMB 09/02/2021 [id number] / [id number] / [id number] documented as of this encounter Advance Directives [...] were consensually agreed upon. Care Teams Business Economist Relationship Specialty Start Date End Date Igor Mcconnell DO 293 [facility], [place] [address] PCP - General Internal Medicine 02/12/24 documented as of this encounter
--- OUTSIDE RECORDS SUMMARY | 2024-08-26 02:39 | External Medical Summary | Summary of Care ---
Author Name Unknown Organization [facility] Address [address] [facility] [place] [address] Phone [phone] Care Team Providers Care Linseed Oil Temperer Name Role Phone Igor Mcconnell DO Primary Care Provider [phone] Reason for Visit * Reason Onset Date Comments [facility]: Maintenance 04/08/2024 Encounter Details Date Type Department Care Team (Late st Contact Info) Description 04/08/2024 Telephone [facility], [facility] [address] [facility] [place] [address] Carolina Carey RN [address] [facility] [place] [address] [facility]: Maintenance Allergies Active Allergy Reactions Criticality Noted Date Comments Metolazone Renal complications 11/10/2023 Note prior DTP with metolazone resulted in acute renal failure Other Allergy (See Comments) Rash Low 10/13/2022 1+ cocamidopropyl betaine Sglt2 Inhibitors Other (Please comment) High 09/04/2020 Genital infection Sulfa Antibiotics Rash 10/15/2016 documented as of this encounter (statuses as of 04/08/2024) Medications Medication Sig Dispensed Refills Start Date [...] DX: E11.9 300 Strip 3 09/23/2023 Active Kfmrv-1-ymbb Ethyl Esters 1 GM Oral Capsule (Lovaza) [...] of less than 7.0% ([facility]) INJECT UNDER THE SKIN 100 UNITS TWICE DAILY OR DIRECTED 90 mL 3 01/18/2024 Active Additional Information Patient taking differently: 90 Units Subcutaneous BID(Non-Specified), Reported on 02/12/2024 Torsemide 20 MG Oral Tablet (Demadex)Indications :Chronic heart failure with preserved ejection fraction ([facility]),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 disease ([facility]) Take 4 Tablets by mouth in [...] of less than 7.0% ([facility]) INJECT UNDER THE SKIN 20 UNITS AT BREAKFAST, 26 UNITS AT LUNCH, 38 UNITS WITH DINNER PLUS CORRECTION PER [facility] OR DIRECTED UP TO 120 UNITS PER DAY 120 mL 3 03/21/2024 Active DIURETIC TITRATION PLAN If no improvement on day 3, contact [facility] for possible home visit 1 Each 03/24/2024 Active Evolocumab 140 MG/ML Subcutaneous Solution Auto-injector (Repatha SureClick)Indication s:Dyslipidemia, goal LDL below 100,Mixed dyslipidemia Inject 140 mg under the skin every 14 days. 6 mL 3 03/24/2024 Active documented as of this encounter (statuses as of 04/08/2024) Active Problems Patient Care Coordination No te Formatting of this note migh t be different from the original. Heart Failure Self-Management and Exacerbation Plan "RED FLAG" HF Symptoms: Leg Swelling Abdominal Bloating Increased dyspnea on exertion Increased shortness of breath at rest Orthopnea Remote Patient Monitoring Vendor: [facility] Device(s): Connected Scale Self - [...] in the Comments) Remote Patient Monitoring Vendor: [facility] Device(s): Connected Scale Self - Management Plan Double dose of Torsemide for 3 days Exacerbation Plan BMP Chest X-Ray Additional Comments: Recommended using double torsemide for 3 days in a row, rather than 1 day like he has been doing Continue using [facility] scale Low sodium diet Type 2 diabetes [...] 08/18/2017 Last Assessment & Plan: Continues on Adimabaza 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 repatha History of [...] as of this encounter (statuses as of 04/08/2024) Resolved Problems Problem Noted Date Diagnosed Date [...] as of this encounter (statuses as of 04/08/2024) Immunizations Name Administration Dates Next Due COVID-19 mRNA, LNP-s, No Pre serve, 2-Dose Series (Moderna) 12/10/2020,11/12/2020 Hepatitis B, 20+ yrs 01/04/2018,08/03/2017,07/03 Pneumococcal Conjugate Vacci ne, 20-valent ([id number]) 06/09/2022 Pneumococcal Polysaccharide PPV23 (Pneumovax) 03/06/2020 RSV [...] No 08/05/2023 Does the household have a [facility] source of income? (Household - [...] Carey RN - 04/08/2024 1:18 PM EDT [facility] tank erector Acute Call Date: 04/08/2024 Time: 1:18 PM Name: Tony Delong : 1960 Caller: Tony Relationship to self No chief complaint on file. HPI: Tony Delong is a 64 year old male that is calling [facility] to report that he went to [facility] for a rib x-ray as he fell this past Thursday. Reports there is no rib fracture or any fractures. While at [facility] he had a BNP done and was 692. Was instructed to make sure his anesthesiologist assistant was aware of the result. Message forwarded per request BULMARO Muñoz Registered Nurse Navigator Triage [facility] documented in this encounter Plan of Treatment Upcoming Encounters Date Type Department Care Team (Late st Contact Info) Description 04/15/2024 8:30 AM EDT Scheduled Telephone [facility], [facility] [address] [facility] [place] [address] Mery Calderon RDN [address] [facility] [place] [address] 05/09/2024 1:40 PM EST Office Visit Nephrology, [facility] [address] [facility] [place] [address] Shivani Magallon MD [address] [facility] [place] [address] 05/30/2024 1:00 PM EST Telemedicine Cardiology [facility] [place] [address] [place] [address] [place] [address], Pharmacist Cardiology [facility] [address] [place] [address] 06/13/2024 11:15 AM EST Hospital Encounter ENDO O[facility], Endoscopy Room [facility] [address] [facility] [place] [phone] José Miguel Sifuentes MD [address] [place] [address] 06/13/2024 11:15 AM EST - 06/13/2024 11:45 AM EST Surgery ENDO O[facility], Endoscopy Room [facility] [address] [place] [phone] José Miguel Sifuentes MD [facility] [place] [address] COLONOSCOPY FLEXIBLE PROXIMAL DIAGNOSTIC 07/01/2024 2:20 PM EST Office Visit Family Practice [address] [place] [address], [place] [address] [place] [address] Igor Mcconnell, 293 [place] [address] 08/08/2024 9:30 AM EST Nurse Only Ancillary [address] [place] [address] [place], Nurse [address] [place] [address] 10/27/2024 1:00 PM EDT Office Visit Sleep Disorders Ctr [facility] [address] [facility] [place] [phone] Lindsey Sheikh CRNP [address] [facility] [place] [address] Scheduled Procedures Name Priority Associated Diagnoses Date/Ti [...] Nephrology Referral 03/03/2025 03/03/2024 Hgb 03/11/2025 03/11/2024, 0807/2023, 02/12/2024, Additional history exists O2 ASSESSMENT COMPLETED [...] this encounter Medical Devices Implanted Type Area Registered Veterinary Technician Device Identifier Shelf Expiration Date Model / Serial / Lot Lens Intraoc 21.0 - [id number] - [id number] Implanted:Qty: 1 on 01/22/2017 by Cheko Mcnamara MD at OR [facility] Right: Eye BAUSCH [employer] LOMB 08/05/2021 [id number] / [id number] / [id number] Lens Intraoc 21.5 - [id number] - [id number] Implanted:Qty: 1 on 02/03/2017 by Cheko Mcnamara MD at OR [facility] Left: Eye BAUSCH & LOMB 09/02/2021 [id number] / [id number] / [id number] documented as of this encounter Advance Directives [...] and were consensually agreed upon. Care Teams Linseed Oil Temperer Relationship Specialty Start Date End Date Igor Mcconnell DO [address] [facility] [place] [address] PCP - General Internal Medicine 02/12/24 documented as of this encounter
--- OUTSIDE RECORDS SUMMARY | 2024-08-26 02:39 | External Medical Summary | Summary of Care ---
Author Name Unknown Organization [facility] Address [address] [facility] [place] [address] Phone [phone] Care Team Providers Care Textile Converter Name Role Phone Igor Mcconnell DO Primary Care Provider [phone] Reason for Visit * Reason Comments Outpatient Testing Encounter Details Date Type Department Care Team (Late st Contact Info) Description 04/13/2024 10:20 AM EDT Laboratory Laboratory [address] [place] [phone] [facility] [address] [place] [address] Mixed dyslipidemia; Hypertensive heart and kidney disease [...] as of this encounter (statuses as of 04/13/2024) Medications Medication Sig Dispensed Refills Start Date [...] DX: E11.9 300 Strip 3 09/23/2023 Active Gxyzf-2-xdpl Ethyl Esters 1 GM Oral Capsule (Lovaza) [...] than 7.0% ([facility]) INJECT UNDER THE SKIN 100 UNITS TWICE DAILY OR DIRECTED 90 mL 3 01/18/2024 Active Additional Information Patient taking differently: 90 Units Subcutaneous BID(Non-Specified), Reported on 02/12/2024 Torsemide 20 MG Oral Tablet (Demadex)Indications :Chronic heart failure with preserved ejection fraction ([facility]),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 disease ([facility]) Take 4 Tablets by mouth in [...] current use of insulin ([facility]) Inject 2 mg under the skin [...] than 7.0% ([facility]) INJECT UNDER THE SKIN 20 UNITS AT BREAKFAST, 26 UNITS AT LUNCH, 38 UNITS WITH DINNER PLUS CORRECTION PER [facility] OR DIRECTED UP TO 120 UNITS PER DAY 120 mL 3 03/21/2024 Active DIURETIC TITRATION PLAN If no improvement on day 3, contact [facility] for possible home visit 1 Each 03/24/2024 Active Evolocumab 140 MG/ML Subcutaneous Solution Auto-injector (Repatha SureClick)Indication s:Dyslipidemia, goal LDL below 100,Mixed dyslipidemia Inject 140 mg under the skin every 14 days. 6 mL 3 03/24/2024 Active documented as of this encounter (statuses as of 04/13/2024) Active Problems Patient Care Coordination No te Formatting of this note migh t be different from the original. Heart Failure Self-Management and Exacerbation Plan "RED FLAG" HF Symptoms: Leg Swelling Abdominal Bloating Increased dyspnea on exertion Increased shortness of breath at rest Orthopnea Remote Patient Monitoring Vendor: [facility] [...] in the Comments) Remote Patient Monitoring Vendor: [employer] Device(s): Connected Scale Self - Management Plan Double dose of Torsemide for 3 days Exacerbation Plan BMP Chest X-Ray Additional Comments: Recommended using double torsemide for 3 days in a row, rather than 1 day like he has been doing Continue using Linio scale Low sodium diet Type 2 diabetes [...] 08/18/2017 Last Assessment & Plan: Continues on Mail'Insideaza 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 repatha History of [...] as of this encounter (statuses as of 04/13/2024) Resolved Problems Problem Noted Date Diagnosed Date [...] as of this encounter (statuses as of 04/13/2024) Immunizations Name Administration Dates Next Due COVID-19 mRNA, LNP-s, No Pre serve, 2-Dose Series (Moderna) 12/10/2020,11/12/2020 Hepatitis B, 20+ yrs 01/04/2018,08/03/2017,07/03 Pneumococcal Conjugate Vacci ne, 20-valent ([id number]) 06/09/2022 Pneumococcal Polysaccharide PPV23 (Pneumovax) 03/06/2020 RSV [...] No 08/05/2023 Does the household have a [facility] source of income? (Household - for [...] Telephone [facility], [facility] [address] [place] [address] Mery Calderon RDN [address] [place] [address] 05/09/2024 1:40 PM EST Office Visit Nephrology, [place] [address] Shivani Magallon MD [address] [place] [address] 05/30/2024 1:00 PM EST Telemedicine Cardiology [facility] [place] [address] [place] [address] [place] [address], Pharmacist Cardiology [facility] [address] [place] [address] 06/13/2024 11:15 AM EST Hospital Encounter ENDO [facility], [facility] [place] [phone] José Miguel Sifuentes MD [address] [place] [address] 06/13/2024 11:15 AM EST - 06/13/2024 11:45 AM EST Surgery END[facility] [place] [phone] José Miguel Sifuentes MD 132 [facility] [place] [address] COLONOSCOPY FLEXIBLE PROXIMAL DIAGNOSTIC 07/01/2024 2:20 PM EST Office Visit Family Practice [address] [place] [address] 293 [place] [address] Igor Mcconnell, 293 [place] [address] 08/08/2024 9:30 AM EST Nurse Only Ancillary [address] [place] [address] [place], Nurse [address] [place] [address] 10/27/2024 1:00 PM EDT Office Visit [facility] Disorders Ctr [facility] 132 [facility] [place] [phone] Lindsey Sheikh CRNP [address] [place] [address] Pending Results Name Type Priority Associated Diagnoses Date /Time HEPATIC FUNCTION PANEL Lab Routine Mixed dyslipidemia 04/13/2024 10:22 AM EDT BASIC METABOLIC PANEL Lab Routine 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) 04/13/2024 10:22 AM EDT Scheduled Procedures Name Priority Associated Diagnoses [...] encounter Medical Devices Implanted Type Area Data Management Analyst Device Identifier Shelf Expiration Date Model / Serial / Lot Lens Intraoc 21.0 - [id number] - [id number] Implanted:Qty: 1 on 01/22/2017 by Cheko Mcnamara MD at OR [facility] Right: Eye BAUSCH & LOMB 08/05/2021 [id number] / [id number] / [id number] Lens Intraoc 21.5 - [id number] - [id number] Implanted:Qty: 1 on 02/03/2017 by Cheko Mcnamara MD at OR [facility] Left: Eye BAUSCH & LOMB 09/02/2021 [id number] / [id number] / [id number] documented as of this encounter Visit Diagnoses Diagnosis Mixed dyslipidemia [...] and were consensually agreed upon. Care Teams Textile Converter Relationship Specialty Start Date End Date Igor Mcconnell DO [address] [place] [address] PCP - General Internal Medicine 02/12/24 documented as of this encounter
--- OUTSIDE RECORDS SUMMARY | 2024-08-26 02:39 | External Medical Summary | Summary of Care ---
Author Name Unknown Organization [facility] Address [address] [facility] [place] [address] Phone [phone] Care Team Providers Care Hand Brim Ironer Name Role Phone Igor Mcconnell DO Primary Care Provider Reason for Visit * Reason Onset Date Comments [facility]: Maintenance 04/08/2024 Encounter Details Date Type Department Care Team (Late st Contact Info) Description 04/08/2024 Telephone [facility], [facility] [address] [facility] [place] [address] Carolina Carey RN [address] [facility] [place] [address] [facility]: Maintenance Allergies Active Allergy [...] DX: E11.9 300 Strip 3 09/23/2023 Active Fdubq-4-fsjb Ethyl Esters 1 GM Oral Capsule (Lovaza) [...] A1c goal of less than 7.0% ([facility]) INJECT UNDER THE SKIN 100 UNITS TWICE DAILY OR DIRECTED 90 mL 3 01/18/2024 Active Additional Information Patient taking differently: 90 Units Subcutaneous BID(Non-Specified), Reported on 02/12/2024 Torsemide 20 MG Oral Tablet (Demadex)Indications :Chronic heart failure with preserved ejection fraction ([facility]),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 disease ([facility]) Take 4 Tablets by mouth in [...] with long-term current use of insulin ([facility]) Inject 2 mg under the skin [...] A1c goal of less than 7.0% ([facility]) INJECT UNDER THE SKIN 20 UNITS AT BREAKFAST, 26 UNITS AT LUNCH, 38 UNITS WITH DINNER PLUS CORRECTION PER [facility] [...] Orthopnea Remote Patient Monitoring Vendor: [facility] Device(s): Connected Scale Self - Management Plan [...] in the Comments) Remote Patient Monitoring Vendor: [employer] Device(s): Connected Scale Self - Management Plan Double dose of Torsemide for 3 days Exacerbation Plan BMP Chest X-Ray Additional Comments: Recommended using double torsemide for 3 days in a row, rather than 1 day like he has been doing Continue using CAXA scale Low sodium diet Type 2 diabetes [...] 08/18/2017 Last Assessment & Plan: Continues on PageScienceaza 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 repatha History of [...] yrs 01/04/2018,08/03/2017,07/03 Pneumococcal Conjugate Vacci ne, 20-valent ([id number]) 06/09/2022 Pneumococcal Polysaccharide PPV23 (Pneumovax) 03/06/2020 RSV [...] No 08/05/2023 Does the household have a [facility] source of income? (Household - for ages [...] Carey RN - 04/08/2024 1:18 PM EDT [facility] financial health counselor Acute Call Date: 04/08/2024 Time: 1:18 PM Name: Tony Delong : 1960 Caller: Tony Relationship to self No chief complaint on file. HPI: Tony Delong is a 64 year old male that is calling [facility] Int[facility] to report that he went to [facility] for a rib x-ray as he fell this past Thursday. Reports there is no rib fracture or any fractures. While at [facility] he had a BNP done and was 692. Was instructed to make sure his low pressure boiler tender was aware of the result. Message forwarded per request BULMARO Muñoz Registered Nurse Navigator Triage [facility] documented in this encounter Plan of Treatment Upcoming Encounters Date Type Department Care Team (Late st Contact Info) Description 04/15/2024 8:30 AM EDT Scheduled Telephone [facility], [facility] [address] [facility] [place] [address] Mery Calderon RDN [address] [facility] [place] [address] 05/09/2024 1:40 PM EST Office Visit Nephrology, Susan Palacios [address] [place] [address] Shivani Magallon MD [address] [place] [address] 05/30/2024 1:00 PM EST Telemedicine Cardiology [facility], [place] [address] [place] [address] [place], Pharmacist Cardiology [facility] [address] [place] [place] [address] 06/13/2024 11:15 AM EST Hospital Encounter ENDO OSSC, Endoscopy Room [facility] [address] [place] [phone] José Miguel Sifuentes MD [address] [place] [address] 06/13/2024 11:15 AM EST - 06/13/2024 11:45 AM EST Surgery ENDO OSSC, Endoscopy Room [facility] [address] [place] [phone] José Miguel Sifuentes MD [address] [place] [address] COLONOSCOPY FLEXIBLE PROXIMAL DIAGNOSTIC 07/01/2024 2:20 PM EST Office Visit Family Practice [address] [place] [address] 293 [place] [address] Igor Mcconnell, [address] [place] [address] 08/08/2024 9:30 AM EST Nurse Only Ancillary [address] [place] [address] [place], Nurse [address] [place] [address] 10/27/2024 1:00 PM EDT Office Visit Sleep Disorders Ctr [facility] [address] [place] [phone] Lindsey Sheikh CRNP [address] [place] [address] Scheduled Procedures Name Priority Associated Diagnoses Date/Ti [...] this encounter Medical Devices Implanted Type Area Replanting Machine Crew Device Identifier Shelf Expiration Date Model / Serial / Lot Lens Intraoc 21.0 - [id number] - [id number] Implanted:Qty: 1 on 01/22/2017 by Cheko Mcnamara MD at OR [facility] Right: Eye BAUSCH & LOMB 08/05/2021 [id number] / [id number] / [id number] Lens Intraoc 21.5 - [id number] - [id number] Implanted:Qty: 1 on 02/03/2017 by Cheko Mcnamara MD at OR [facility] Left: Eye BAUSCH & LOMB 09/02/2021 [id number] / [id number] / [id number] documented as of this encounter Advance Directives [...] and were consensually agreed upon. Care Teams Hand Brim Ironer Relationship Specialty Start Date End Date Igor Mcconnell DO [address] [place] [address] PCP - General Internal Medicine 02/12/24 documented as of this encounter
--- OUTSIDE RECORDS SUMMARY | 2024-08-26 02:39 | External Medical Summary | Summary of Care ---
Author Name Unknown Organization [facility] Address [address] [facility] [place] [address] Phone [phone] Care Team Providers Care Engineering Illustrator Name Role Phone Igor Mcconnell DO Primary Care Provider [phone] Reason for Visit * Reason Onset Date Comments [facility]: Maintenance 04/08/2024 Encounter Details Date Type Department Care Team (Late st Contact Info) Description 04/08/2024 Telephone [facility] [address] [facility] [place] [address] Carolina Carey RN [address] [facility] [place] [address] [facility]: Maintenance Allergies Active Allergy [...] DX: E11.9 300 Strip 3 09/23/2023 Active Lxmtb-6-rynz Ethyl Esters 1 GM Oral Capsule (Lovaza) [...] 38 UNITS WITH DINNER PLUS CORRECTION PER [facility] OR DIRECTED UP TO 120 UNITS PER DAY 120 mL 3 03/21/2024 Active DIURETIC TITRATION PLAN If no improvement on day 3, contact [facility] for possible home visit 1 Each [...] at rest Orthopnea Remote Patient Monitoring Vendor: [facility] Device(s): Connected Scale Self - Management Plan [...] in the Comments) Remote Patient Monitoring Vendor: [employer] Device(s): Connected Scale Self - Management Plan Double dose of Torsemide for 3 days Exacerbation Plan BMP Chest X-Ray Additional Comments: Recommended using double torsemide for 3 days in a row, rather than 1 day like he has been doing Continue using [employer] scale Low sodium diet Type 2 diabetes [...] 08/18/2017 Last Assessment & Plan: Continues on [employer] 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 repatha History of [...] yrs 01/04/2018,08/03/2017,07/03 Pneumococcal Conjugate Vacci ne, 20-valent ([id number]) 06/09/2022 Pneumococcal Polysaccharide PPV23 (Pneumovax) 03/06/2020 RSV [...] No 08/05/2023 Does the household have a [facility] [facility] source of income? (Household - for ages [...] encounter Miscellaneous Notes * Telephone Encounter - Leta Bhandari LPN - 04/08/2024 3:56 PM EDT Spoke with pt by phone Pt states some swelling and weight gain, but nothing out of the ordinary for him. He is aware of the diurectic titration plan and follows as ordered. Says breathing is painful d/t fx and bruised ribs. But denies SOB or wet cough. Requesting records from [facility]. * Telephone Encounter - Elizabeth Pineda [...] 04/08/2024 1:18 PM EDT [facility] sand carrier Acute Call Date: 04/08/2024 Time: 1:18 PM Name: Tony Delong : 1960 Caller: Tony Relationship to self No chief complaint on file. HPI: Tony Delong is a 64 year old male that is calling [facility] to report that he went to [facility] for a rib x-ray as he fell this past Thursday. Reports there is no rib fracture or any fractures. While at [facility] he had a BNP done and was 692. Was instructed to make sure his extract operator was aware of the result. Message forwarded per request BULMARO Muñoz Registered Nurse Navigator Triage [facility] documented in this encounter Plan of Treatment Upcoming Encounters Date Type Department Care Team (Late st Contact Info) Description 04/15/2024 8:30 AM EDT Scheduled Telephone [facility] [address] [facility] [place] [address] Mery Calderon, RDN [address] [facility] [place] [address] 05/09/2024 1:40 PM EST Office Visit Nephrology, Kathy Suzanne 200 [facility] [place] [address] Shivani Magallon MD 200 [facility] [place] [address] 05/30/2024 1:00 PM EST Telemedicine Cardiology [facility], [place] [address] [place] [address] [place] [address], Pharmacist Cardiology [facility] [address] [place] [address] 06/13/2024 11:15 AM EST Hospital Encounter ENDO OSSC, Endoscopy Room [facility] 132 [facility] [phone] José Miguel Sifuentes MD 132 [place] [address] 06/13/2024 11:15 AM EST - 06/13/2024 11:45 AM EST Surgery ENDO OSS, Endoscopy Room [facility] 132 [facility] [place] [phone] José Miguel Sifuentes MD 132 [facility] [place] [address] COLONOSCOPY FLEXIBLE PROXIMAL DIAGNOSTIC 07/01/2024 2:20 PM EST Office Visit Family Practice [address] [place] [address] 293 [place] [address] Igor Mcconnell DO 293 [place] [address] 08/08/2024 9:30 AM EST Nurse Only Ancillary [address] [place] [address] [place], Nurse Annual [address] [place] [address] 10/27/2024 1:00 PM EDT Office Visit Sleep Disorders Ctr [facility] [address] [place] [phone] Lindsey Sheikh CRNP [address] [place] [address] Scheduled Procedures Name Priority Associated Diagnoses Date/Ti [...] this encounter Medical Devices Implanted Type Area Finisher Accordion Device Identifier Shelf Expiration Date Model / Serial / Lot Lens Intraoc 21.0 - [id number] - [id number] Implanted:Qty: 1 on 01/22/2017 by Cheko Mcnamara MD at OR [facility] Right: Eye BAUSCH & LOMB 08/05/2021 [id number] / [id number] / [id number] Lens Intraoc 21.5 - [id number] - [id number] Implanted:Qty: 1 on 02/03/2017 by Cheko Mcnamara MD at OR [facility] Left: Eye BAUSCH & LOMB 09/02/2021 [id number] / [id number] / [id number] documented as of this encounter Advance Directives [...] and were consensually agreed upon. Care Teams Engineering Illustrator Relationship Specialty Start Date End Date Igor Mcconnell DO 293 [place] [address] PCP - General Internal Medicine 02/12/24 documented as of this encounter
--- OUTSIDE RECORDS SUMMARY | 2024-08-26 02:40 | External Medical Summary | Summary of Care ---
Author Name Unknown Organization [facility] Address [address] [place] [address] Phone [phone] Care Team Providers Care Semiconductors Wafer Breaker Name Role Phone Igor Mcconnell DO Primary Care Provider [phone] Reason for Visit * Reason Onset Date Comments Test Results 04/04/202404/04 Encounter Details Date Type Department Care Team (Late st Contact Info) Description 04/04/2024 Telephone Family Practice 65 [facility], [place] 293 [place] [address] Igor Mcconnell DO 293 [place] [address] Test Results (04/04) Allergies Active Allergy Reactions Criticality Noted Date Comments Metolazone Renal complications 11/10/2023 Note prior DTP with metolazone resulted in acute renal failure Other Allergy (See Comments) Rash Low 10/13/2022 1+ cocamidopropyl betaine Sglt2 Inhibitors Other (Please comment) High 09/04/2020 Genital infection Sulfa Antibiotics Rash 10/15/2016 documented as of this encounter (statuses as of 04/05/2024) Medications Medication Sig Dispensed Refills Start Date [...] 3 Active Carvedilol 25 MG Oral Tablet (Coreg)Indications: [...] DX: E11.9 300 Strip 3 4 Active Ztxda-3-uoml Ethyl Esters 1 GM Oral Capsule (Lovaza) [...] [facility]) INJECT UNDER THE SKIN 100 UNITS TWICE DAILY OR DIRECTED 90 mL 3 4 01/18/20 25 Active Additional Information Patient taking differently: 90 Units Subcutaneous BID(Non-Specified), Reported on 02/12/2024 Torsemide 20 MG Oral Tablet (Demadex)Indication s:Chronic heart failure with preserved ejection fraction ([facility]),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 2 mL 11 4 Active Potassium Chloride Gaviota ER 20 MEQ Oral Tablet Extended Release Take 1 Tablet by mouth in the morning and 1 Tablet before bedtime. 180 Tablet 3 4 Active Clotrimazole-Betame thasone 1-0.05 % External [...] If no improvement on day 3, contact [facility] for possible home visit 1 Each 4 Active Evolocumab 140 MG/ML Subcutaneous Solution Auto-injector (Repatha SureClick)Indicatio ns:Dyslipidemia, goal LDL below 100,Mixed dyslipidemia Inject 140 mg under the skin every 14 days. 6 mL 3 4 Active Rosuvastatin Calcium 5 MG Oral Tablet (Crestor)Indication s:Mixed dyslipidemia Take 1 Tablet by mouth in the morning. 90 Tablet 3 4 04/05/20 24 Discontinu ed(Medicat ion/Dose Changed) documented as of this encounter (statuses as of 04/05/2024) Active Problems Patient Care Coordination No te [...] in the Comments) Remote Patient Monitoring Vendor: [employer] Device(s): Connected Scale Self - Management Plan [...] 08/18/2017 Last Assessment & Plan: Continues on [employer] 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 repatha History of [...] as of this encounter (statuses as of 04/05/2024) Resolved Problems Problem Noted Date Diagnosed Date [...] as of this encounter (statuses as of 04/05/2024) Immunizations Name Administration Dates Next Due COVID-19 mRNA, LNP-s, No Pre serve, 2-Dose Series (Moderna) 12/10/2020,11/12/2020 Hepatitis B, 20+ yrs 01/04/2018,08/03/2017,07/03 Pneumococcal Conjugate Vacci ne, 20-valent ([id number]) 06/09/2022 Pneumococcal Polysaccharide PPV23 (Pneumovax) 03/06/2020 RSV [...] Telephone Encounter - Zulema Frazier LPN - 04/05/2024 12:28 PM EDT Spoke to patient, advised of Dr Mcconnell's message. Thank you * Telephone Encounter - Kaylynn Goldstein RPh - 04/05/2024 8:28 AM EDT Noted thank you for update Crestor removed from med list * Telephone Encounter - Igor Mcconnell DO - 04/04/2024 1:52 PM EDT Stop Rosuvastatin. AST and ALT have gone up slightly. Continue Evolocumab He does have chronic liver damage on previous imaging LFT 1 week after stopping Rosuvastatin * Telephone Encounter - Bell Negrete LPN - 04/04/2024 11:16 AM EDT Patient returned call. Relayed information from Dr. Mcconnell. Pt acknowledged understanding and states he will comply. Pt states he started Rosuvastatin approx 1 week ago - ordered by Cardiology. States in the past statins caused his "liver numbers to tank". States he has taken med for approx 1 week and notes his liver numbers "aren't good". States in the past statins were stopped and he took Repatha and Fish oil. Pt states he does not feel he should be on a statin. Would like Dr. Mcconnell's input on this and states he will do what Dr. Mcconnell recommends. Please advise. * Telephone Encounter - Bell Negrete LPN - 04/04/2024 11:08 AM EDT Call placed to patient - no answer. Message left to return call to [phone]. * Telephone Encounter - Bell Negrete LPN - 04/04/2024 11:06 AM EDT ----- Message from Igor Mcconnell DO sent at 04/02/2024 3:39 PM EDT ----- Uric acid has improved Continue Allopurinol. Continue to follow with Nephrology for CKD documented in this encounter Plan of Treatment Upcoming Encounters Date Type Department Care Team (Late st Contact Info) Description 04/15/2024 8:30 AM EDT Scheduled Telephone [facility] [address] [facility] [place] [address] Mery Calderon RDN [address] [facility] [place] [address] 05/09/2024 1:40 PM EST Office Visit Nephrology, [facility] 200 [facility] [place] [address] Shivani Magallon MD 200 [facility] [place] [address] 05/30/2024 1:00 PM EST Telemedicine Cardiology [facility] [place] [address] [place] [address] [place] [address], Pharmacist Cardiology [facility] [address] [place] [address] 06/13/2024 11:15 AM EST Hospital Encounter ENDO OSSC, Endoscopy Room [facility] [address] [place] [address] José Miguel Sifuentes MD [address] [place] [address] 06/13/2024 11:15 AM EST - 06/13/2024 11:45 AM EST Surgery ENDO OSSC, Endoscopy Room [facility] [address] [place] [phone] José Miguel Sifuentes MD [address] [place] [address] COLONOSCOPY FLEXIBLE PROXIMAL DIAGNOSTIC 07/01/2024 2:20 PM EST Office Visit Family Practice [address] [place] [address], [place] 293 [facility] [place] [address] Igor Mcconnell DO 293 [place] [address] 08/08/2024 9:30 AM EST Nurse Only Ancillary Lazaro Hyde[address] [place] [address] [place], Nurse [address] [place] [address] 10/27/2024 1:00 PM EDT Office Visit Sleep Disorders Ctr [facility] 132 [facility] [place] [phone] Lindsey Sheikh CRNP 132 [facility] [place] [address] Scheduled Procedures Name Priority Associated Diagnoses Date/Ti [...] encounter Medical Devices Implanted Type Area Electrical Mechanical Technician Device Identifier Shelf Expiration Date Model / Serial / Lot Lens Intraoc 21.0 - [id number] - [id number] Implanted:Qty: 1 on 01/22/2017 by Cheko Mcnamara MD at OR [facility] Right: Eye BAUSCH & LOMB 08/05/2021 [id number] / [id number] / [id number] Lens Intraoc 21.5 - [id number] - [id number] Implanted:Qty: 1 on 02/03/2017 by Cheko Mcnamara MD at OR [facility] Left: Eye BAUSCH & LOMB 09/02/2021 [id number] / [id number] / [id number] documented as of this encounter Advance Directives [...] and were consensually agreed upon. Care Teams Semiconductors Wafer Breaker Relationship Specialty Start Date End Date Igor Mcconnell DO 293 [place] [address] PCP - General Internal Medicine 02/12/24 documented as of this encounter
--- OUTSIDE RECORDS SUMMARY | 2024-08-26 02:40 | External Medical Summary | Summary of Care ---
Author Name Unknown Organization [facility] Address [address] [facility] [place] [address] Phone [phone] Care Team Providers Care Helper Chicken Farm Name Role Phone FaizachuIgor DO Primary Care Provider [phone] Encounter Details Date Type Department Care Team (Late st Contact Info) Description 04/05/2024 Orders Only Laboratory [address] [place] [address] Sam Gage PA-C [address] [place] [address] Hypertensive heart and kidney disease with chronic [...] DX: E11.9 300 Strip 3 09/23/2023 Active Ngqvq-9-wiex Ethyl Esters 1 GM Oral Capsule (Lovaza) [...] [facility]) INJECT UNDER THE SKIN 100 UNITS TWICE DAILY OR DIRECTED 90 mL 3 01/18/2024 Active Additional Information Patient taking differently: 90 Units Subcutaneous BID(Non-Specified), Reported on 02/12/2024 Torsemide 20 MG Oral Tablet (Demadex)Indications :Chronic heart failure with preserved ejection fraction ([facility]),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 disease ([facility]) Take 4 Tablets by mouth in [...] UNITS WITH DINNER PLUS CORRECTION PER [facility] OR DIRECTED UP TO 120 UNITS [...] in the Comments) Remote Patient Monitoring Vendor: [employer] Device(s): Connected Scale Self - Management Plan [...] Continues on lovaza 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 Clavistera History of tobacco use 08/18/2017 [place] on [...] yrs 01/04/2018,08/03/2017,07/03 Pneumococcal Conjugate Vacci ne, 20-valent (Fkqrafo15) 06/09/2022 Pneumococcal Polysaccharide PPV23 (Pneumovax) 03/06/2020 RSV Vac., Bivalent, Perfusio n F, Pf,0.5 Ml (Abrysvo) 02/12/2024 Seasonal Influenza, High Dos e, Trivalent, PF, IM (Fluzone HD) 03/11/2024 Seasonal Influenza, PF, 6 M & above, IM , (FluLaval or Fluzone) 04/01/2023,04/27/2022,03/21/2021,04/18,07/11/2019,08/18/2017 Seasonal Influenza, Trivalen t, (IIV3), with Preserv, (Fluzone) 04/05/2016 TDAP (age 10 and older)(Boostrix) 12/29/2016 [...] No 08/05/2023 Does the household have a [facility] source of income? (Household - [...] AM EDT Scheduled Telephone [facility], [facility] [address] [place] [address] Mery Calderon RDN 1000 [address] [facility] [place] [address] 05/09/2024 1:40 PM EST Office Visit Nephrology, [address] [place], [place] [address] Shivani Magallon MD [address] [facility] [place] [address] 05/30/2024 1:00 PM EST Telemedicine Cardiology [facility] [place] [address] [place] [address] [place] [address], Pharmacist Cardiology [facility] [address] [place], [place] [address] 06/13/2024 11:15 AM EST Hospital Encounter ENDO OSSC, [facility]oscopy [facility] [place] [phone] José Miguel Sifuentes MD [address] [place] [address] 06/13/2024 11:15 AM EST - 06/13/2024 11:45 AM EST Surgery ENDO OSSC, Endoscopy Room [facility] [place] [phone] José Miguel Sifuentes MD 132 [facility] [place] [address] COLONOSCOPY FLEXIBLE PROXIMAL DIAGNOSTIC 07/01/2024 2:20 PM EST Office Visit Family Practice [address] [place] [address] 293 [place] [address] Igor Mcconnell, 293 [place] [address] 08/08/2024 9:30 AM EST Nurse Only Ancillary [address] [place] [address] [place] Nurse [address] [place] [address] 10/27/2024 1:00 PM EDT Office Visit Sleep Disorders Ctr [facility] [place] [phone] Lindsey Sheikh CRNP [address] [place] [address] Scheduled Orders Name Type Priority Associated Diagnoses Orde r Schedule BASIC METABOLIC PANEL Lab Routine 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) Expected: 04/12/2024 (Approximate), Expires: 04/05/2025 Scheduled Procedures Name Priority Associated Diagnoses Date/Ti [...] this encounter Medical Devices Implanted Type Area Supervisor [employer] Device Identifier Shelf Expiration Date Model / Serial / Lot Lens Intraoc 21.0 - [id number] - [id number] Implanted:Qty: 1 on 01/22/2017 by Cheko Mcnamara MD at OR [facility] Right: Eye BAUSCH & LOMB 08/05/2021 [id number] / [id number] / [id number] Lens Intraoc 21.5 - [id number] - [id number] Implanted:Qty: 1 on 02/03/2017 by Cheko Mcnamara MD at OR [facility] Left: Eye BAUSCH & LOMB 09/02/2021 [id number] / [id number] / [id number] documented as of this encounter Visit Diagnoses [...] and were consensually agreed upon. Care Teams Helper Chicken Farm Relationship Specialty Start Date End Date Igor Mcconnell DO 293 [place] [address] PCP - General Internal Medicine 02/12/24 documented as of this encounter
--- OUTSIDE RECORDS SUMMARY | 2024-08-26 02:40 | External Medical Summary | Summary of Care ---
Author Name Unknown Organization [facility] Address [address] [place] [address] Phone [phone] Care Team Providers Care Table Tender Sludge Name Role Phone Igor Mcconnell DO Primary Care Provider [phone] Reason for Visit * Reason Onset Date Comments Test Results 04/04/202404/04 Encounter Details Date Type Department Care Team (Late st Contact Info) Description 04/04/2024 Telephone Family Practice 65 [facility] [place] 293 [place] [address] Igor Mcconnell DO 293 [place] [address] Test Results (04/04) Allergies Active Allergy Reactions [...] DX: E11.9 300 Strip 3 4 Active Pwkgy-8-llgc Ethyl Esters 1 GM Oral Capsule (Lovaza) [...] of less than 7.0% ([facility]) INJECT UNDER THE SKIN 100 UNITS TWICE DAILY OR DIRECTED 90 mL 3 4 01/18/20 25 Active Additional Information Patient taking differently: 90 Units Subcutaneous BID(Non-Specified), Reported on 02/12/2024 Torsemide 20 MG Oral Tablet (Demadex)Indication s:Chronic heart failure with preserved ejection fraction ([facility]),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 disease ([facility]) Take 4 Tablets by mouth in [...] current use of insulin ([facility]) Inject 2 mg under the skin [...] of less than 7.0% ([facility]) INJECT UNDER THE SKIN 20 UNITS AT BREAKFAST, 26 UNITS AT LUNCH, 38 UNITS WITH DINNER PLUS CORRECTION PER [facility] OR DIRECTED UP TO 120 UNITS PER DAY 120 mL 3 4 Active DIURETIC TITRATION PLAN If no improvement on day 3, contact [facility] for possible home visit 1 Each 4 [...] at rest Orthopnea Remote Patient Monitoring Vendor: [facility] Device(s): Connected Scale Self [...] in the Comments) Remote Patient Monitoring Vendor: [employer] Device(s): Connected Scale Self - Management Plan [...] 08/18/2017 Last Assessment & Plan: Continues on [employer] 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 repatha History of [...] yrs 01/04/2018,08/03/2017,07/03 Pneumococcal Conjugate Vacci ne, 20-valent ([id number]) 06/09/2022 Pneumococcal Polysaccharide PPV23 (Pneumovax) 03/06/2020 RSV [...] Notes * Telephone Encounter - Kaylynn Goldstein RPh [...] answer. Message left to return call to [phone]. * Telephone Encounter - Bell Negrete LPN [...] Scheduled Telephone [facility], [facility] [address] [facility] [place] [address] [place] Mery Lang, RDN [address] [facility] [place] [address] 05/09/2024 1:40 PM EST Office Visit Nephrology, [facility] 200 [facility] [place] [address] Shivani Magallon MD 200 [facility] [place] [address] 05/30/2024 1:00 PM EST Telemedicine Cardiology [facility] [place] [address] [place] [address] [place] [address], Pharmacist Cardiology [facility] [address] [place] [address] 06/13/2024 11:15 AM EST Hospital Encounter ENDO OSSC, Endoscopy Room [facility] [address] [place] [phone] José Miguel Sifuentes MD [address] [place] [address] 06/13/2024 11:15 AM EST - 06/13/2024 11:45 AM EST Surgery ENDO OSSC, Endoscopy Room [facility] [address] [place] [phone] José Miguel Sifuentes MD 132 [facility] [place] [address] COLONOSCOPY FLEXIBLE PROXIMAL DIAGNOSTIC 07/01/2024 2:20 PM EST Office Visit Family Practice 65 [facility] [place] 293 [place] [address] Igor Mcconnell, DO 293 [place] [address] 08/08/2024 9:30 AM EST Nurse Only Ancillary [place] Hyde[address] [place] [address] [place], Nurse [address] [place] [address] 10/27/2024 1:00 PM EDT Office Visit Sleep Disorders Ctr [facility], [place] [facility] [place] [phone] Lindsey Sheikh CRNP [address] [place] [address] Scheduled Procedures Name Priority Associated Diagnoses Date/Ti [...] encounter Medical Devices Implanted Type Area Split And Drum Room Supervisor Device Identifier Shelf Expiration Date Model / Serial / Lot Lens Intraoc 21.0 - [id number] - [id number] Implanted:Qty: 1 on 01/22/2017 by Cheko Mcnamara MD at [facility] Right: Eye BAUSCH & LOMB 08/05/2021 [id number] / [id number] / [id number] Lens Intraoc 21.5 - [id number] - [id number] Implanted:Qty: 1 on 02/03/2017 by Cheko Mcnamara MD at OR [facility] Left: Eye BAUSCH & LOMB 09/02/2021 [id number] / [id number] / [id number] documented as of this encounter Advance Directives [...] and were consensually agreed upon. Care Teams Table Tender Sludge Relationship Specialty Start Date End Date Igro Mcconnell DO 293 [facility] [place] [address] PCP - General Internal Medicine 02/12/24 documented as of this encounter
--- OUTSIDE RECORDS SUMMARY | 2024-08-26 02:40 | External Medical Summary | Summary of Care ---
Author Name Unknown Organization [facility] Address [address] [place] [address] Phone [phone] Care Team Providers Care Revenue Tax Specialist Name Role Phone FaizachuIgor DO Primary Care Provider [phone] Reason for Visit * Reason Onset Date Comments Home Monitoring Alarm 04/05/2024 Encounter Details Date Type Department Care Team (Late st Contact Info) Description 04/05/2024 Home Monitoring Care Coordination [address] [place] [address] Tanja Fitch LPN HTN, goal below 130/80* Allergies Active [...] than 7.0% ([facility]) Use as directed every 14 days . [...] DX: E11.9 300 Strip 3 09/23/2023 Active Dfztk-6-vamx Ethyl Esters 1 GM Oral Capsule (Lovaza) [...] DAILY OR DIRECTED 90 mL 3 01/18/2024 07/15/202 5 Active Additional Information Patient taking differently: 90 Units Subcutaneous BID(Non-Specified), Reported on 02/12/2024 Torsemide 20 MG Oral Tablet (Demadex)Indications :Chronic heart failure with preserved ejection fraction (HCC),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 disease ([facility]) Take 4 Tablets by mouth [...] 38 UNITS WITH DINNER PLUS CORRECTION PER [facility] OR DIRECTED UP TO 120 UNITS PER DAY 120 mL 3 03/21/2024 Active DIURETIC TITRATION PLAN If no improvement on day 3, contact [facility] for possible home visit 1 Each [...] yrs 01/04/2018,08/03/2017,07/03 Pneumococcal Conjugate Vacci ne, 20-valent ([id number]) 06/09/2022 Pneumococcal Polysaccharide PPV23 (Pneumovax) 03/06/2020 RSV [...] encounter Progress Notes * Clary Gregg, [facility] - 04/05/2024 4:54 PM EDT 03/25/24 17:33 03/26/24 20:13 03/27/24 16:39 03/29/24 03/31/24 15:07 04/02/24 18:11 04/03/24 15:15 04/04/24 18:07 04/05/24 Systolic BP 132 mm/Hg [1] 127 mm/Hg [1] 121 mm/Hg [1] 138 mm/Hg [1] 132 mm/Hg [1] 130 mm/Hg [1] 119mm/Hg [1] 131 mm/Hg [1] 114 mm/Hg [1] Diastolic BP 57 mm/Hg [1] 61 mm/Hg [1] 62 mm/Hg [1] 69 mm/Hg [1] 74 mm/Hg [1] 61 mm/Hg [1] 56 mm/Hg[1] 64 mm/Hg [1] 61 mm/Hg [1] Pulse 73 bpm [1] 72 bpm [1] 84 bpm [1] 69 bpm [1] 75 bpm [1] 82 bpm [1] 63 bpm [1] 71 bpm [1] 63 bpm [1] Note: Showing the most recent values for these dates. There are additional values that can be seen in Synopsis. [1] CH:VITAL_READING_TYPE=SPOT CH:PERIPHERAL_BRAND=IHEALTH BP at goal. No changes at this time, will continue to monitor. Clary Gregg RPh, PharmD Clinical Pharmacist - Director Product Management Medication Therapy [facility] 04/05/2024, 4:54 PM [phone] * Tanja Fitch LPN - 04/05/2024 8:42 AM EDT Tony Delong [phone] Tony Delong is currently participating in the [employer] Hypertension Management Program and hada reading on 04/04/24 of 131/64. Pt has alerted for an Average BP [...] [facility] [place] [address] [facility] [place] [address] Mery Calderon, RDN [address] [facility] [place] [address] 05/09/2024 1:40 PM EST Office Visit Nephrology, Susan Palacios [address] [facility] [place] [address] Shivani Magallon MD [address] [facility] [place] [address] 05/30/2024 1:00 PM EST Telemedicine Cardiology [facility] [address] [place] [address] [place] [address], Pharmacist Cardiology [facility] [address] [place] [address] 06/13/2024 11:15 AM EST Hospital Encounter ENDO OSSC, Endoscopy Room [facility] [place] [phone] José Miguel Sifuentes MD [facility] [place] [address] 06/13/2024 11:15 AM EST - 06/13/2024 11:45 AM EST Surgery ENDO OSSC, Endoscopy Room [facility] [address] [place] [phone] José Miguel Sifuentes MD [address] [address] COLONOSCOPY FLEXIBLE PROXIMAL DIAGNOSTIC 07/01/2024 2:20 PM EST Office Visit Family Practice [address] [place] [address] [address] [place] [address] Igor Mcconnell, 293 [place] [address] 08/08/2024 9:30 AM EST Nurse Only Ancillary Lazaro Hyde[address] [place] [address] [place], Nurse [address] [place] [address] 10/27/2024 1:00 PM EDT Office Visit Sleep Disorders Ctr [facility] [address] [place] [phone] Lindsey Sheikh CRNP [address] [place] [address] Scheduled Procedures Name Priority Associated Diagnoses Date/Ti [...] this encounter Medical Devices Implanted Type Area Word Processing Operator Device Identifier Shelf Expiration Date Model / Serial / Lot Lens Intraoc 21.0 - [id number] - [id number] Implanted:Qty: 1 on 01/22/2017 by Cheko Mcnamara MD at [facility] Right: Eye [employer]USCH [employer] LOMB 08/05/2021 [id number] / [id number] / [id number] Lens Intraoc 21.5 - [id number] - [id number] Implanted:Qty: 1 on 02/03/2017 by Cheko Mcnamara MD at OR [facility] Left: Eye BAUSCH & LOMB 09/02/2021 [id number] / [id number] / [id number] documented as of this encounter Visit Diagnoses [...] and were consensually agreed upon. Care Teams Revenue Tax Specialist Relationship Specialty Start Date End Date Igor Mcconnell DO [address] [place] [address] PCP - General Internal Medicine 02/12/24 documented as of this encounter
--- OUTSIDE RECORDS SUMMARY | 2024-08-26 02:41 | External Medical Summary | Summary of Care ---
Author Name Unknown Organization [facility] Address [address] [facility] [place] [address] Phone [phone] Care Team Providers Care Hose Handler Name Role Phone Igor Mcconnell DO Primary Care Provider Reason for Visit * Reason Onset Date Comments Follow Up 04/02/2024 Encounter Details Date Type Department Care Team (Latest Contact Info) Description 04/02/2024 8:30 AM EDT Scheduled Telephone [facility] [address] [facility] [place] [address] [facility], Nurse [facility] [address] [facility] [place] [address] Mixed dyslipidemia* Allergies Active Allergy Reactions Criticality Noted Date Comments Metolazone Renal complications 11/10/2023 Note prior DTP with metolazone resulted in acute renal failure Other Allergy (See Comments) Rash Low 10/13/2022 1+ cocamidopropyl betaine Sglt2 Inhibitors Other (Please comment) High 09/04/2020 Genital infection Sulfa Antibiotics Rash 10/15/2016 documented as of this encounter (statuses as of 04/02/2024) Medications Medication Sig Dispensed Refills Start Date [...] DX: E11.9 300 Strip 3 09/23/2023 Active Iwdqe-7-tnfc Ethyl Esters 1 GM Oral Capsule (Lovaza) [...] 7.0% ([facility]) INJECT UNDER THE SKIN 100 UNITS TWICE DAILY OR DIRECTED 90 mL 3 01/18/2024 Active Additional Information Patient taking differently: 90 Units Subcutaneous BID(Non-Specified), Reported on 02/12/2024 Torsemide 20 MG Oral Tablet (Demadex)Indications :Chronic heart failure with preserved ejection fraction ([facility]),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 disease ([facility]) Take 4 Tablets by mouth in the [...] 38 UNITS WITH DINNER PLUS CORRECTION PER [facility] OR DIRECTED UP TO 120 UNITS PER DAY 120 mL 3 03/21/2024 Active DIURETIC TITRATION PLAN If no improvement on day 3, contact [facility] for possible home visit 1 Each 03/24/2024 Active Evolocumab 140 MG/ML Subcutaneous Solution Auto-injector (Repatha SureClick)Indication s:Dyslipidemia, goal LDL below 100,Mixed dyslipidemia Inject 140 mg under the skin every 14 days. 6 mL 3 03/24/2024 Active Rosuvastatin Calcium 5 MG Oral Tablet (Crestor)Indications :Mixed dyslipidemia Take 1 Tablet by mouth in the morning. 90 Tablet 3 03/24/2024 Active documented as of this encounter (statuses as of 04/02/2024) Active Problems Patient Care Coordination No te Formatting of this note migh t be different from the original. Heart Failure Self-Management and Exacerbation Plan "RED FLAG" HF Symptoms: Leg Swelling Abdominal Bloating Increased dyspnea on exertion Increased shortness of breath at rest Orthopnea Remote Patient Monitoring Vendor: [facility] Device(s): Connected Scale Self - Management Plan [...] the Comments) Remote Patient Monitoring Vendor: [facility] Device(s): Connected Scale Self - Management Plan [...] as of this encounter (statuses as of 04/02/2024) Resolved Problems Problem Noted Date Diagnosed Date [...] has been better controlled recently. Monitor using Moneythinkstyle Cindy. NEMESIO (acute kidney injury) 04/30/2022 Severe [...] as of this encounter (statuses as of 04/02/2024) Immunizations Name Administration Dates Next Due COVID-19 mRNA, LNP-s, No Pre serve, 2-Dose Series (Moderna) 12/10/2020,11/12/2020 Hepatitis B, 20+ yrs 01/04/2018,08/03/2017,07/03 Pneumococcal Conjugate Vacci ne, 20-valent ([id number]) 06/09/2022 Pneumococcal Polysaccharide PPV23 (Pneumovax) 03/06/2020 RSV [...] No 08/05/2023 Does the household have a ascension macombr source of income? (Household - for ages [...] encounter Miscellaneous Notes * Addendum Note - Tone Stevens RN - 04/02/2024 11:39 AM EDTAddended by: TONE STEVENS on: 04/02/2024 11:39 AM Modules accepted: Orders * Telephone Encounter - Tone Stevens RN - 04/02/2024 9:35 AM EDT Spoke with patient. Currently out helping friend with moving. Doesn't have the stamina that he would like but overall is feeling ok. Is concerned about his hepatic function. Per Dr. Trujillo- slight rise in levels. Continue Crestor- repeat LFT's in one week. Potassium- 3.0 Currently taking 20meq BID. Can take 40meq extra one time. Patient aware of above. Voices understanding. * Telephone Encounter - Tone Stevens RN - 04/02/2024 8:43 AM EDT Images from the original note were not included. Phone call to patient for follow up- Weights below. UTC- message left for return call. documented in this encounter Plan of Treatment Upcoming Encounters Date Type Department Care Team (Late st Contact Info) Description 04/15/2024 8:30 AM EDT Scheduled Telephone [facility] [address] [place] [address] Mery Calderon, RDN [address] [place] [address] 05/09/2024 1:40 PM EST Office Visit Nephrology, [facility] [address] [facility] [place] [address] Shivani Magallon MD 200 [facility] [place] [address] 05/30/2024 1:00 PM EST Telemedicine Cardiology [facility] [address] [place] [address] [place] [address], Pharmacist Cardiology [facility] [address] [place] [address] 06/13/2024 11:15 AM EST Hospital Encounter ENDO OSS, Endoscopy Room [facility] [address] [facility] [place] [phone] José Miguel [facility]ifuentes MD [facility] [place] [address] 06/13/2024 11:15 AM EST - 06/13/2024 11:45 AM EST Surgery ENDO OSS, Endoscopy Room [facility] [address] [place] [phone] José Miguel Sifuentes MD [address] [facility] [place] [address] COLONOSCOPY FLEXIBLE PROXIMAL DIAGNOSTIC 07/01/2024 2:20 PM EST Office Visit Family [address] [place] [address] Igor Mcconnell, 293 [place] [address] 08/08/2024 9:30 AM EST Nurse Only Ancillary [address] [place] [address] [place], Nurse [address] [place] [address] 10/27/2024 1:00 PM EDT [facility] 132 [facility] [place] [phone] Lindsey Sheikh CRNP 132 [facility] [place] [address] Scheduled Orders Name Type Priority Associated Diagnoses Orde r Schedule HEPATIC FUNCTION PANEL Lab Routine Mixed dyslipidemia Expected: 04/02/2024 (Approximate), Expires: 04/02/2025 Scheduled Procedures Name Priority Associated Diagnoses Date/Ti [...] this encounter Medical Devices Implanted Type Area Optical Fabrication Technician Device Identifier Shelf Expiration Date Model / Serial / Lot Lens Intraoc 21.0 - [id number] - [id number] Implanted:Qty: 1 on 01/22/2017 by Cheko Mcnamara MD at OR [facility] Right: Eye BAUSCH [employer] LOMB 08/05/2021 [id number] / [id number] / [id number] Lens Intraoc 21.5 - [id number] - [id number] Implanted:Qty: 1 on 02/03/2017 by Cheko Mcnamara MD at OR [facility] Left: Eye BAUSCH & LOMB 09/02/2021 [id number] / [id number] / [id number] documented as of this encounter Visit Diagnoses Diagnosis Mixed dyslipidemia- Primary Mixed hyperlipidemia Special screening for malignant neoplasms, [...] and were consensually agreed upon. Care Teams Hose Handler Relationship Specialty Start Date End Date Igor Mcconnell DO [address] [facility] [place] [address] PCP - General Internal Medicine 02/12/24 documented as of this encounter
--- OUTSIDE RECORDS SUMMARY | 2024-08-26 02:41 | External Medical Summary ---
Author Name Unknown Address Unknown Organization K01:[facility] - [address] [place] [address] Laboratory Report Ordering Provider Test Date Status CASANDRA CHAPMAN 04/01/2024 14:26:15 Final Observation Date Value Abnormality Reference (Units ) Status Albumin 04/01/2024 14:26:15 4.3 3.8-5.0 (g/dL) Final AST (Aspartate aminotransferase) 04/01/2024 14:26:15 75 Above high normal 10-50 (U/L) Final Alk Phos 04/01/2024 14:26:15 112 35-130 (U/L) Final ALT (Alanine aminotransferase) 04/01/2024 14:26:15 61 Above high normal 10-50 (U/L) Final Bilirubin, Total 04/01/2024 14:26:15 1.0 <=1.2 (mg/dL) Final Bilirubin, Direct 04/01/2024 14:26:15 0.3 0.0-0.3 (mg/dL) Final Protein 04/01/2024 14:26:15 8.3 6.0-8.3 (g/dL) Final Performing Location [facility] - [address] [place] [address]
--- OUTSIDE RECORDS SUMMARY | 2024-08-26 02:41 | External Medical Summary ---
Author Name Unknown Address Unknown Organization K01:[facility] [place] [address] Laboratory Report Ordering Provider Test Date Status LIAM ORTEGA 04/01/2024 14:26:15 Final Observation Date Value Abnormality Reference (Units ) Status BUN 04/01/2024 14:26:15 63 Above high normal 6-20 (mg/dL) Final Creatinine 04/01/2024 14:26:15 3.0 Above high normal 0.6-1.2 (mg/dL) Final Glomerular filtration rate/1.73 sq M.predicted [Volume Rate/Area] in Serum, Plasma or Blood by Creatinine-based formula (CKD-EPI) 04/01/2024 14:26:15 23 Below low normal >=60 (mL/min) Final eGFR is calculated based on the CKD-EPI 2020 equation. Sodium 04/01/2024 14:26:15 137 135-146 (m mol/L) Final Potassium 04/01/2024 14:26:15 3.0 Below low normal 3.5 -5.1 (mmol/L) Final Cl 04/01/2024 14:26:15 93 Below low normal 98- 107 (mmol/L) Final CO2 04/01/2024 14:26:15 27 22-32 (mmo l/L) Final Anion gap 04/01/2024 14:26:15 17 Above high normal 7- 15 (mmol/L) Final Glucose 04/01/2024 14:26:15 219 Above high normal 70 -120 (mg/dL) Final Calcium 04/01/2024 14:26:15 10.0 8.4-10.2 ( mg/dL) Final Performing Location [facility] [place] [address] [place] [address]
--- OUTSIDE RECORDS SUMMARY | 2024-08-26 02:41 | External Medical Summary | Summary of Care ---
Author Name Unknown Organization [facility] Address [address] [facility] [place] [address] Phone [phone] Care Team Providers Care Cost Consultant Name Role Phone Igor Mcconnell DO Primary Care Provider [phone] Encounter Details Date Type Department Care Team (Late st Contact Info) Description 03/29/2024 4:00 PM EDT [facility] [address] [place] [address] Love Stevens, ANNE MARIE [address] [place] [address] Chronic heart failure with preserved ejection fraction (HCC)* Allergies Active Allergy Reactions Criticality Noted Date Comments Metolazone Renal complications 11/10/2023 Note prior DTP with metolazone resulted in acute renal failure Other Allergy (See Comments) Rash Low 10/13/2022 1+ cocamidopropyl betaine Sglt2 Inhibitors Other (Please comment) High 09/04/2020 Genital infection Sulfa Antibiotics Rash 10/15/2016 documented as of this encounter (statuses as of 03/30/2024) Medications Medication Sig Dispensed Refills Start Date [...] DX: E11.9 300 Strip 3 09/23/2023 Active Abqnk-4-efnm Ethyl Esters 1 GM Oral Capsule (Lovaza) [...] 38 UNITS WITH DINNER PLUS CORRECTION PER [facility] OR DIRECTED UP TO 120 UNITS PER DAY 120 mL 3 03/21/2024 Active DIURETIC TITRATION PLAN If no improvement on day 3, contact [facility] for possible home visit 1 [...] as of this encounter (statuses as of 03/30/2024) Active Problems Patient Care Coordination No te [...] in the Comments) Remote Patient Monitoring Vendor: [employer] Device(s): Connected Scale Self - Management Plan [...] as of this encounter (statuses as of 03/30/2024) Resolved Problems Problem Noted Date Diagnosed Date [...] has been better controlled recently. Monitor using RedKLEVERyle Cindy. NEMESIO (acute kidney injury) 04/30/2022 Severe [...] as of this encounter (statuses as of 03/30/2024) Immunizations Name Administration Dates Next Due COVID-19 mRNA, LNP-s, No Pre serve, 2-Dose Series (Moderna) 12/10/2020,11/12/2020 Hepatitis B, 20+ yrs 01/04/2018,08/03/2017,07/03 Pneumococcal Conjugate Vacci ne, 20-valent ([id number]) 06/09/2022 Pneumococcal Polysaccharide PPV23 (Pneumovax) 03/06/2020 RSV [...] No 08/05/2023 Does the [facility] have a [facility] source [facility]? (Household - [...] Sign Reading Time Taken Comments Blood Pressure 132/58 03/29/2024 2:16 PM EDT Pulse 72 03/29/2024 2:16 PM EDT Temperature 35.9 C (96.7 F) 03/29/2024 2:16 PM ED T Respiratory Rate 18 03/29/2024 2:16 PM EDT Oxygen Saturation 96% 03/29/2024 2:16 PM EDT Inhaled Oxygen Concentration - - Weight - - Height - - Body Mass Index - - documented in this encounter Progress Notes * Love Stevens RN - 03/29/2024 1:45 PM EDT Images from the original note were not included. Current Concerns: Patient seen for acute visit- Weight trigger- gain of 5lb/24 hour. Sob above baseline. 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 Will start Rosuvastatin this evening d/t LDL not at goal <55 Metolazone this evening. Does not respond to IV lasix Low na diet Fluid restriction. Physical Exam: Physical Exam Constitutional: Appearance: Normal [...] Negative. Skin: Negative. Hematological: Negative. Psychiatric/Behavioral: Negative. Care [...] End: 05/16/24 GS - Patient/caregiver will verbalize impact of tobacco use/exposure on heart failure. (Progressing) Start: 03/16/24 Expected End: 05/16/24 GS - Patient/caregiver will verbalize understanding of diuretic titration protocol (Progressing) Start: 03/16/24 Expected End: 05/16/24 GS - Patient/caregiver will verbalize an understanding of diagnosis, treatment and self management of heart failure (Progressing) Start: 03/16/24 Expected End: 05/16/24 GS - Patient/caregiver will verbalize heart failure action plan and activation triggers. (Progressing) Start: 03/16/24 Expected End: 05/16/24 GS - Patient/caregiver will notify provider with weight gain with heart failure as per established limits set by provider. (Progressing) Start: 03/16/24 Expected End: 05/16/24 GS - Patient/caregiver will verbalize understanding of complications related to heart failure. (Progressing) Start: 03/16/24 Expected End: 05/16/24 GS - Patient/caregiver will verbalize non-pharmacological treatments for heart failure. (Progressing) Start: 03/16/24 Expected End: 05/16/24 Orders Placed: No orders of the defined types were placed in this encounter. Medications Given: Care Gaps: Care Gaps Care gaps closed this contact:: Education;Plan of Care (POC);Medications (03/30/24 886) Type of education: Clinical/disease (03/30/24 294) Type of medication care gap: Medication adherence (03/30/24 161) Type of plan of care (POC) care gap: Education and review of exacerbation plan (03/30/24 702) documented in this encounter Plan of Treatment Upcoming Encounters Date Type Department Care Team (Late st Contact Info) Description 03/31/2024 10:00 AM EDT Scheduled Telephone [facility], [facility] [address] [place] [address] Coordinator, [facility] 132 [place] [address] 04/15/2024 8:30 AM EDT Scheduled Telephone [facility], [facility] [address] [facility] [place] [address] Mery Calderon, RDN [address] [facility] [place] [address] 05/09/2024 1:40 PM EST Office Visit Nephrology, [facility] 200 [facility] [place] [address] Shivani Magallon MD 200 [facility] [place] [address] 05/30/2024 1:00 PM EST Telemedicine Cardiology [facility] [place] [address] [place] [address] [place] [address], Pharmacist Cardiology [facility] [address] [place] [address] 06/13/2024 11:15 AM EST Hospital Encounter ENDO OSSC, Endoscopy Room [facility] [address] [place] [phone] José Miguel Sifuentes MD [address] [place] [address] 06/13/2024 11:15 AM EST - 06/13/2024 11:45 AM EST Surgery ENDO OSSC, Endoscopy Room [facility] 132 [place] [address] José Miguel Sifuentes MD [address] [place] [address] COLONOSCOPY FLEXIBLE PROXIMAL DIAGNOSTIC 07/01/2024 2:20 PM EST Office Visit Family Practice [address] [place] [address], [place] [address] [place] [address] Igor Mcconnell DO 293 [place] [address] 08/08/2024 9:30 AM EST Nurse Only Ancillary Lazaro Hyde[address] [place] [address] [place], Nurse [address] [place] [address] 10/27/2024 1:00 PM EDT Office Visit Sleep Disorders Ctr [facility] 132 [facility] [place] [phone] Lindsey Sheikh CRNP 132 [facility] [place] [address] Scheduled Orders Name Type Priority Associated Diagnoses Orde r Schedule BASIC METABOLIC PANEL Lab Routine Chronic heart failure with preserved ejection fraction (HCC) Expected: 03/30/2024 (Approximate), Expires: 03/30/2025 Scheduled Procedures Name Priority Associated Diagnoses Date/Ti [...] 02/12/2024, 0401/2024, 06/11/2023, Additional history exists GFR 09/08/2024 03/11/2024, 082 07/2023, 02/12/2024, Additional history exists Diabetic Foot Exam 10/19/2024 [...] this encounter Medical Devices Implanted Type Area Yard Goods Salesperson Device Identifier Shelf Expiration Date Model / Serial / Lot Lens Intraoc 21.0 - [id number] - [id number] Implanted:Qty: 1 on 01/22/2017 by Cheko Mcnamara MD at OR [facility] Right: Eye BAUSCH [employer] LOMB 08/05/2021 [id number] / [id number] / [id number] Lens Intraoc 21.5 - [id number] - [id number] Implanted:Qty: 1 on 02/03/2017 by Cheko Mcnamara MD at OR [facility] Left: Eye BAUSCH & LOMB 09/02/2021 [id number] / [id number] / [id number] documented as of this encounter Visit Diagnoses [...] and were consensually agreed upon. Care Teams Cost Consultant Relationship Specialty Start Date End Date Igor Mcconnell DO [address] [place] [address] PCP - General Internal Medicine 02/12/24 documented as of this encounter
--- OUTSIDE RECORDS SUMMARY | 2024-08-26 02:41 | External Medical Summary | Summary of Care ---
Author Name Unknown Organization [facility] Address [address] [facility] [place] [address] Phone [phone] Care Team Providers Care Assembler Steam And Gas Turbine Name Role Phone Igor Mcconnell DO Primary Care Provider [phone] Reason for Visit * Reason Onset Date Comments [facility]: Maintenance 12/31/2023 Encounter Details Date Type Department Care Team (Late st Contact Info) Description 12/31/2023 Telephone [facility], [facility] [address] [facility] [place] [address] [facility], Nurse [facility] [address] [facility] [place] [address] [facility]: Maintenance Allergies Active Allergy Reactions Criticality Noted Date Comments Metolazone Renal complications 11/10/2023 Note prior DTP with metolazone resulted in acute renal failure Other Allergy (See Comments) Rash Low 10/13/2022 1+ cocamidopropyl betaine Sglt2 Inhibitors Other (Please comment) High 09/04/2020 Genital infection Sulfa Antibiotics Rash 10/15/2016 documented as of this encounter (statuses as of 03/31/2024) Medications Medication Sig Dispensed Refills Start Date [...] 02/16/2023 Active Carvedilol 25 MG Oral Tablet (Coreg)Indications: [...] DX: E11.9 300 Strip 3 09/23/2023 Active Tizyn-4-bucs Ethyl Esters 1 GM Oral Capsule (Lovaza) Take 2 Capsules by mouth in the morning and 2 Capsules before bedtime. 360 Capsule 1 10/05/2023 Active Omeprazole 20 MG Oral Capsule Delayed Release (PriLOSEC) TAKE 1 CAPSULE BY MOUTH IN THE MORNING AND 1 CAPSULE BEFORE BEDTIME 30 MINUTES BEFORE A MEAL 180 Capsule 1 10/28/2023 5 Active documented as of this encounter (statuses as of 03/31/2024) Active Problems Patient Care Coordination No te [...] 08/18/2017 Last Assessment & Plan: Continues on [employer] 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 [employer] History of tobacco use 08/18/2017 [place]O on [...] as of this encounter (statuses as of 03/31/2024) Resolved Problems Problem Noted Date Diagnosed Date [...] as of this encounter (statuses as of 03/31/2024) Immunizations Name Administration Dates Next Due COVID-19 mRNA, LNP-s, No Pre serve, 2-Dose Series (Moderna) 12/10/2020,11/12/2020 Hepatitis B, 20+ yrs 01/04/2018,08/03/2017,07/03 Pneumococcal Conjugate Vacci ne, 20-valent ([id number]) 06/09/2022 Pneumococcal Polysaccharide PPV23 (Pneumovax) 03/06/2020 Seasonal [...] Telephone Encounter - Chilango Trujillo MD - 12/31/2023 1:14 PM EDT Agree with recommendations as written in note; higher diuretic dose. His is an especially difficultcase and I feel his frustration. E * Telephone Encounter - Janeth Kelley LPN - 12/31/2023 12:16 PM EDT Images from the original note were not included. [facility] Remote Patient Monitoring Able to contact patient: Trigger type: Abnormal reading(s): AMC (Advanced Monitored Caregiving): Scale: Baseline weight: 283-285 lbs Trigger priority per AMC: high Patient takes diuretic medication: Yes, reviewed current diuretic use: Name of medication: Torsemide Dose: 60 mg Frequency: BID Symptom review: SOB: mild w exertion Abdominal Fullness: "maybe a little" Diet Reviewed: yES, sODIUM RESTRICTION MAINTAINED Fluid Intake Reviewed: Yes. Patient is on a fluid restriction: Yes, restriction amount in milliliters or liters: 2l Adherent to restriction: No, maybe a glass, not much" Self-Management Plan Reviewed: Red Flags: Increased SOB, increased LE edema Risk assignment recommendation: Moderate risk findings (check [...] Additional risk selection justification: Spoke with pt he did start increased dose of Torsemide to 60 mg BID yesterday PM. Is having some SOB w/ exertion today abdomen "maybe a little firm" Does not recall what he had for supper last night " I am always watching I have no choice at this point" May have exceeded 2l restriction by a glass " when my sugars are high I am thirsty" BS have been running~260. Expressed frustration with balancing diuretics and renal function. Will flag 12/31 FCC as priority Overall risk and identified plan: High risk: Next day follow up call scheduled Route to RNCM (Registered Nurse Painter Sign Maintenance) and Advance Practitioner Route to RMC (Remote Medical Coordinator) documented in this encounter Plan of Treatment Upcoming Encounters Date Type Department Care Team (Late st Contact Info) Description 04/01/2024 12:15 PM EDT Scheduled Telephone [facility], [facility] [address] [facility] [place] [address] Coordinator, [facility] 132 [facility] [place] [address] 04/15/2024 8:30 AM EDT Scheduled Telephone [facility], [facility] [address] [facility] [place] [address] Mery Calderon RDN [address] [facility] [address] 05/09/2024 1:40 PM EST Office Visit Nephrology, Susan Palacios 200 [facility] [place] [address] Shivani Magallon MD 200 [facility] [place] [address] 05/30/2024 1:00 PM EST Telemedicine Cardiology [facility], [address] [address] [place] [address], Pharmacist Cardiology [facility] [address] [facility], [place] [address] 06/13/2024 11:15 AM EST Hospital Encounter ENDO [facility], Endoscopy Room [facility] [address] [facility] [place] [phone] José Miguel Sifuentes MD [address] [place] [address] 06/13/2024 11:15 AM EST - 06/13/2024 11:45 AM EST Surgery ENDO [facility], Endoscopy Room [facility] [address] [place] [address] José Miguel Sifuentes MD [address] [place] [address] COLONOSCOPY FLEXIBLE PROXIMAL DIAGNOSTIC 07/01/2024 2:20 PM EST Office Visit Family Practice [address] [place] [address] 293 [place] [address] Igor Mcconnell, 293 [place] [address] 08/08/2024 9:30 AM EST Nurse Only Ancillary [address] [place] [address] [place], Nurse [address] [place] [address] 10/27/2024 1:00 PM EDT Office Visit Sleep Disorders Ctr [facility] 132 [facility] [place] [phone] Lindsey Sheikh CRNP [facility] [place] [address] Scheduled Procedures Name Priority Associated Diagnoses Date/Ti [...] 02/12/2024, 10/04, 06/11/2023, Additional history exists GFR 09/08/2024 03/11/2024, 02/04, 02/12/2024, Additional history exists Diabetic Foot Exam [...] this encounter Medical Devices Implanted Type Area Line Crewman Device Identifier Shelf Expiration Date Model / Serial / Lot Lens Intraoc 21.0 - [id number] - [id number] Implanted:Qty: 1 on 01/22/2017 by Cheko Mcnamara MD at OR [facility] Right: Eye [employer]USCH [employer] LOMB 08/05/2021 [id number] / [id number] / [id number] Lens Intraoc 21.5 - [id number] - [id number] Implanted:Qty: 1 on 02/03/2017 by Cheko Mcnamara MD at OR [facility] Left: Eye BAUSCH [employer] LOMB 09/02/2021 [id number] / [id number] / [id number] documented as of this encounter Advance Directives [...] and were consensually agreed upon. Care Teams Assembler Steam And Gas Turbine Relationship Specialty Start Date End Date Igor Mcconnell DO [address] [facility] [place] [address] PCP - General Internal Medicine 02/12/24 documented as of this encounter
--- OUTSIDE RECORDS SUMMARY | 2024-08-26 02:41 | External Medical Summary | Summary of Care ---
Author Name Unknown Organization [facility] Address [address] [facility] [place] [address] Phone [phone] Care Team Providers Care Director Of Group Sales Name Role Phone Igor Mcconnell DO Primary Care Provider [phone] Reason for Visit * Reason Onset Date Comments Follow Up 04/02/2024 Encounter Details Date Type Department Care Team (Late st Contact Info) Description 04/02/2024 8:30 AM EDT Scheduled Telephone [facility] [address] [facility] [place] [address] [facility], Nurse [facility] [address] [facility] [place] [address] Allergies Active Allergy Reactions Criticality Noted Date [...] DX: E11.9 300 Strip 3 09/23/2023 Active Ktztd-0-kckc Ethyl Esters 1 GM Oral Capsule (Lovaza) [...] than 7.0% ([facility]) INJECT UNDER THE SKIN 100 UNITS TWICE DAILY OR DIRECTED 90 mL 3 01/18/2024 Active Additional Information Patient taking differently: 90 Units Subcutaneous BID(Non-Specified), Reported on 02/12/2024 Torsemide 20 MG Oral Tablet (Demadex)Indications :Chronic heart failure with preserved ejection fraction ([facility]),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 Monitor using [employer] Cindy. NEMESIO (acute kidney injury) 04/30/2022 Severe [...] yrs 01/04/2018,08/03/2017,07/03 Pneumococcal Conjugate Vacci ne, 20-valent ([id number]) 06/09/2022 Pneumococcal Polysaccharide PPV23 (Pneumovax) 03/06/2020 RSV [...] No 08/05/2023 Does the household have a [facility] source of income? (Household - [...] Telephone Encounter - Love Stevens RN - 04/02/2024 8:43 AM EDT [...] [facility] [address] [facility] [place] [address] Mery Calderon, RDN [address] [facility] [place] [address] 05/09/2024 1:40 PM EST Office Visit Nephrology, [facility] 200 [facility] [place] [address] Shivani Magallon MD 200 [facility] [place] [address] 05/30/2024 1:00 PM EST Telemedicine Cardiology [facility], [place] [address] [place] [address] [place] [address], Pharmacist Cardiology [facility] [address] [place] [address] 06/13/2024 11:15 AM EST Hospital Encounter ENDO [facility], Endoscopy Room [facility] [address] [place] [phone] José Miguel Sifuentes MD [address] [place] [address] 06/13/2024 11:15 AM EST - 06/13/2024 11:45 AM EST Surgery ENDO [facility], Endoscopy Room [facility] [address] [place] [phone] José Miguel Sifuentes MD [facility] [place] [address] COLONOSCOPY FLEXIBLE PROXIMAL DIAGNOSTIC 07/01/2024 2:20 PM EST Office Visit Family Practice [address], [place] 293 [facility] [place] [address] Igor Mcconnell, 293 [place] [address] 08/08/2024 9:30 AM EST Nurse Only Ancillary Lazaro [address] [place] [address] [place], Nurse [address] [place] [address] 10/27/2024 1:00 PM EDT Office Visit Sleep Disorders Ctr [facility] [place] [address] [place] [phone] Lindsey Sheikh CRNP [address] [place] [address] Scheduled Procedures Name Priority Associated Diagnoses Date/Ti [...] this encounter Medical Devices Implanted Type Area Waterproofing Supervisor Device Identifier Shelf Expiration Date Model / Serial / Lot Lens Intraoc 21.0 - [id number] - [id number] Implanted:Qty: 1 on 01/22/2017 by Cheko Mcnamara MD at [facility] Right: Eye [employer]USCH [employer] LOMB 08/05/2021 [id number] / [id number] / [id number] Lens Intraoc 21.5 - [id number] - [id number] Implanted:Qty: 1 on 02/03/2017 by Cheko Mcnamara MD at OR [facility] Left: Eye BAUSCH [employer] LOMB 09/02/2021 [id number] / [id number] / [id number] documented as of this encounter Advance Directives [...] consensually agreed upon. Care Teams Director Of Group Sales Relationship Specialty Start Date End Date Igor Mcconnell DO 293 [place] [address] PCP - General Internal Medicine 02/12/24 documented as of this encounter
--- OUTSIDE RECORDS SUMMARY | 2024-08-26 02:41 | External Medical Summary | Summary of Care ---
Author Name Unknown Organization [facility] Address [address] [facility] [place] [address] Phone [phone] Care Team Providers Care International Trade Compliance Manager Name Role Phone Igor Mcconnell DO Primary Care Provider [phone] Reason for Visit * Reason Onset Date Comments [facility]: Maintenance 04/01/2024 Encounter Details Date Type Department Care Team (Late st Contact Info) Description 04/01/2024 12:15 PM EDT Scheduled Telephone [facility], [facility] [address] [place] [address] Coordinator, [facility] [address] [place] [address] Allergies Active Allergy Reactions Criticality Noted Date Comments Metolazone Renal complications 11/10/2023 Note prior DTP with metolazone resulted in acute renal failure Other Allergy (See Comments) Rash Low 10/13/2022 1+ cocamidopropyl betaine Sglt2 Inhibitors Other (Please comment) High 09/04/2020 Genital infection Sulfa Antibiotics Rash 10/15/2016 documented as of this encounter (statuses as of 04/01/2024) Medications Medication Sig Dispensed Refills Start Date [...] DX: E11.9 300 Strip 3 09/23/2023 Active Kcvzr-3-fefd Ethyl Esters 1 GM Oral Capsule (Lovaza) [...] hemoglobin A1c goal of less than 7.0% ([facility]) INJECT UNDER THE SKIN 100 UNITS TWICE DAILY OR DIRECTED 90 mL 3 01/18/2024 Active Additional Information Patient taking differently: 90 Units Subcutaneous BID(Non-Specified), Reported on 02/12/2024 Torsemide 20 MG Oral Tablet (Demadex)Indications :Chronic heart failure with preserved ejection fraction ([facility]),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 disease ([facility]) Take 4 Tablets by mouth in the [...] disease, with long-term current use of insulin ([facility]) Inject 2 mg under the skin once [...] hemoglobin A1c goal of less than 7.0% ([facility]) INJECT UNDER THE SKIN 20 UNITS AT BREAKFAST, 26 UNITS AT LUNCH, 38 UNITS WITH DINNER PLUS CORRECTION PER [facility] OR DIRECTED UP TO 120 UNITS PER DAY 120 mL 3 03/21/2024 Active DIURETIC TITRATION PLAN If no improvement on day 3, contact [facility] for possible home visit 1 Each [...] as of this encounter (statuses as of 04/01/2024) Active Problems Patient Care Coordination No te [...] in the Comments) Remote Patient Monitoring Vendor: [employer] Device(s): Connected Scale Self - Management Plan [...] as of this encounter (statuses as of 04/01/2024) Resolved Problems Problem Noted Date Diagnosed Date [...] has been better controlled recently. Monitor using [employer] Cindy. NEMESIO (acute kidney injury) 04/30/2022 Severe [...] as of this encounter (statuses as of 04/01/2024) Immunizations Name Administration Dates Next Due COVID-19 mRNA, LNP-s, No Pre serve, 2-Dose Series (Moderna) 12/10/2020,11/12/2020 Hepatitis B, 20+ yrs 01/04/2018,08/03/2017,07/03 Pneumococcal Conjugate Vacci ne, 20-valent ([id number]) 06/09/2022 Pneumococcal Polysaccharide PPV23 (Pneumovax) 03/06/2020 RSV [...] No 08/05/2023 Does the household have a [facility] source of income? (Household - for ages [...] Telephone Encounter - Christy Choudhury LPN - 04/01/2024 9:44 AM EDT Images from the original note were not included. [facility] Telephonic Nurse Follow-Up Call [facility] Subprogram: Focused Care Management (3-9 months) Follow Up Call Type: 48 hour follow up Acute issue requiring follow-up call: Other: weight DTP Objective: 03/29/2024 2:16 PM 03/16/2024 2:50 PM 03/11/2024 8:19 AM 03/03/2024 3:04 PM 03/01/2024 2:23 PM VITALS ACROSS ENCOUNTERS BP 132/58 124/60 122/68 130/54 120/60 Pulse 72 72 62 67 70 Weight 124.2 kg 130.6 kg 132.2 kg 130.6 kg BMI 39.05 BMI 37.15 kg/m2 39.06 kg/m2 39.53 kg/m2 39.06 kg/m2 Remote Patient Monitoring: [facility] Scale: Daily weights Oxygen Needs: NO supplemental oxygen needs identified DME Needs: NO DME needs identified Medications: Current DTP: Add metolazone (Zaroxolyn) 2.5-5mg for 2 days. If using a potassium supplement, doublethe dose of the supplement will be given on the day of and on the day after the metolazone Subjective: Condition Status: Improvement in symptoms but not at baseline Current Concerns: Spoke to patient denies increased SOB or edema but was hoping for weight to go down more then it did educated on diet salt/sodium intake Last BM today but just very small amount, denies any chest pain will place senior application programmer tomorrow to follow up regarding weights may need to have another DTP Disposition: Weekend call scheduled Future Visits Scheduled: Future Appointments-next 60 days Date/Time Provider Specialty Dept Phone 04/01/2024 12:15 PM Coordinator, [facility] [phone] 04/15/2024 8:30 AM Mery Calderon RDN [facility] [phone] 05/09/2024 1:40 PM (Arrive by 1:25 PM) Shivani Magallon MD Nephrology [phone] 05/30/2024 1:00 PM Gael Zuniga Cardiology [facility] Arrive at: Patient's Home [phone] 07/01/2024 2:20 PM (Arrive by 2:05 PM) Igor Mcconnell DO Family Medicine [phone] 08/08/2024 9:30 AM [place] Nurse Annual Wellness Ancillary [phone] 10/27/2024 1:00 PM (Arrive by 12:45 PM) Lindsey Sheikh CRNP Sleep Disorders [phone] Christy Choudhury LPN documented in this encounter Plan of Treatment Upcoming Encounters Date Type Department Care Team (Late st Contact Info) Description 04/02/2024 8:30 AM EDT Scheduled Telephone [facility], [facility] 132 [facility] [place] [address] [facility], Nurse [facility] 132 [place] [address] 04/15/2024 8:30 AM EDT Scheduled Telephone [facility], [facility] [address] [place] [address] Mery Calderon RDN [address] [place] [address] 05/09/2024 1:40 PM EST Office Visit Nephrology, Susan Palacios [address] [place] [address] Shivani Magallon MD [address] [place] [address] 05/30/2024 1:00 PM EST Telemedicine Cardiology [facility] [place] [address] [place] [address] [place] [address], Pharmacist Cardiology [facility] [address] [place] [address] 06/13/2024 11:15 AM EST Hospital Encounter ENDO [facility], Endoscopy Room [facility] [place] [phone] José Miguel Sifuentes MD 132 [facility] [place] [address] 06/13/2024 11:15 AM EST - 06/13/2024 11:45 AM EST Surgery ENDO [facility], Endoscopy Room [facility] [address] [place] [phone] José Miguel Sifuentes MD [address] [place] [address] COLONOSCOPY FLEXIBLE PROXIMAL DIAGNOSTIC 07/01/2024 2:20 PM EST Office Visit Family Practice [address] [place] [address] 293 [place] [address] Igor Mcconnell, 293 [place] [address] 08/08/2024 9:30 AM EST Nurse Only Ancillary [address] [place] [address] [place], Nurse [address] [place] [address] 10/27/2024 1:00 PM EDT Office Visit Sleep Disorders Ctr [facility] [address] [place] [phone] Lindsey Sheikh CRNP 132 [facility] [place] [address] Scheduled Procedures Name Priority Associated Diagnoses Date/Ti [...] this encounter Medical Devices Implanted Type Area Calendering Machine Operator Device Identifier Shelf Expiration Date Model / Serial / Lot Lens Intraoc 21.0 - [id number] - [id number] Implanted:Qty: 1 on 01/22/2017 by Cheko Mcnamara MD at [facility] Right: Eye BAUSCH [employer] LOMB 08/05/2021 [id number] / [id number] / [id number] Lens Intraoc 21.5 - [id number] - [id number] Implanted:Qty: 1 on 02/03/2017 by Cheko Mcnamara MD at [facility] Left: Eye BAUSCH & LOMB 09/02/2021 [id number] / [id number] / [id number] documented as of this encounter Advance Directives [...] and were consensually agreed upon. Care Teams International Trade Compliance Manager Relationship Specialty Start Date End Date Igor Mcconnell DO [address] [place] [address] PCP - General Internal Medicine 02/12/24 documented as of this encounter
--- OUTSIDE RECORDS SUMMARY | 2024-08-26 02:41 | External Medical Summary | Summary of Care ---
Author Name Unknown Organization [facility] Address [address] [place] [address] Phone [phone] Care Team Providers Care Business Objects Name Role Phone Igor Mcconnell DO Primary Care Provider [phone] Reason for Visit * Reason Onset Date Comments Home Monitoring Telephone 03/16/2024 Encounter Details Date Type Department Care Team (Late st Contact Info) Description 03/16/2024 Telephone Care Coordination [address], [place] [id number] Shivani Magallon MD 200 [facility] [place] [id number] Home Monitoring Telephone Allergies Active Allergy Reactions Criticality Noted Date [...] DX: E11.9 300 Strip 3 09/23/2023 Active Cacdt-2-hden Ethyl Esters 1 GM Oral Capsule (Lovaza) [...] start before March 14, 2024. 03/14/2024 Active documented as of this encounter (statuses as of 04/01/2024) Active Problems Patient Care Coordination No te Formatting of this note migh t be different from the original. Heart Failure Self-Management and Exacerbation Plan "RED FLAG" HF Symptoms: Leg Swelling Abdominal Bloating Increased dyspnea on exertion Increased shortness of breath at rest Orthopnea Remote Patient Monitoring Vendor: [employer] [...] yrs 01/04/2018,08/03/2017,07/03 Pneumococcal Conjugate Vacci ne, 20-valent ([id number]) 06/09/2022 Pneumococcal Polysaccharide PPV23 (Pneumovax) 03/06/2020 RSV [...] encounter Miscellaneous Notes * Telephone Encounter - Candy Katz LPN - 04/01/2024 10:32 AM EDT Noted. Goal Adjusted in Current Health as requested. Candy Katz LPN Nurse Navigator [address] * Telephone Encounter - Shivani Magallon MD - 03/31/2024 4:49 PM EDT Continue same/ option 1 but tighten goal to <130/80 * Telephone Encounter - Candy Katz LPN - 03/16/2024 1:38 PM EDT Tony Delong [id number] Tony Delong Patient is currently enrolled in the [facility] HTN Program and has not alerted for out of bound readings for > 1 month. Per program criteria, please let us know your recommendation for continued monitoring by respondingback to this message: Option 1: Intensify BP goal <=130/80 or <=120/80 (specify please). (Current alarm for averageBP over 7 days is >= 140/90) Option 2: Remain in current program with no changes for an additional 3 months prior to next evaluation. Option 3: Step down to CD Chronic Disease Maintenance Program Note for Option 3 (step-down to maintenance program) nurses will no longer monitor readings, these are available in EPIC synopsis flowsheets and workbench reports for review. Patients will be educated that they are responsible for contacting clinic directly with any concerns. Thank you, [facility] Monitoring Center Staff Candy Katz LPN documented in this encounter Plan of Treatment Upcoming Encounters Date Type Department Care Team (Late st Contact Info) Description 04/01/2024 12:15 PM EDT Scheduled Telephone [facility], [address] [place] [address] Coordinator, [address] [place] [address] 04/02/2024 8:30 AM EDT Scheduled Telephone [facility], [address] [place] [address] Region, Nurse [address] [place] [address] 04/15/2024 8:30 AM EDT Scheduled Telephone [facility], [facility] [address] [facility] [place] [address] Mery Calderon, VIVIANAN [address] [place] [address] 05/09/2024 1:40 PM EST Office Visit Nephrology, Susan Palacios [address] [place], [place] [address] Shivani Magallon MD 200 [facility] [place], [place] [address] 05/30/2024 1:00 PM EST Telemedicine Cardiology [facility], [place] [address] [place], [place] [phone] [facility], Pharmacist Cardiology [facility] [address] [place] [address] 06/13/2024 11:15 AM EST Hospital Encounter ENDO [facility], Endoscopy Room [facility] [address] [place] [phone] José Miguel Sifuentes MD [address] [place] [address] 06/13/2024 11:15 AM EST - 06/13/2024 11:45 AM EST Surgery ENDO [facility], Endoscopy Room [facility] [address] [place] [phone] José Miguel Sifuentes MD [address] [place] [address] COLONOSCOPY FLEXIBLE PROXIMAL DIAGNOSTIC 07/01/2024 2:20 PM EST Office Visit Family [address] 293 [place] [address] Igor Mcconnell, [address] [place] [address] 08/08/2024 9:30 AM EST Nurse Only Ancillary [address] [place] [address] [place], Nurse [address] [place] [address] 10/27/2024 1:00 PM EDT Office Visit [facility] [place] [phone] Lindsey Sheikh CRNP [address] [facility] [place] [address] Scheduled Procedures Name Priority Associated Diagnoses Date/Ti [...] this encounter Medical Devices Implanted Type Area Insurance Investigator Device Identifier Shelf Expiration Date Model / Serial / Lot Lens Intraoc 21.0 - [id number] - [id number] Implanted:Qty: 1 on 01/22/2017 by Cheko Mcnamara MD at OR [facility] Right: Eye [employer] LOM[employer] 08/05/2021 [id number] / [id number] / [id number] Lens Intraoc 21.5 - [id number] - [id number] Implanted:Qty: 1 on 02/03/2017 by Cheko Mcnamara MD at OR [facility] Left: Eye BAUSCH [employer] LOMB 09/02/2021 [id number] / [id number] / [id number] documented as of this encounter Advance Directives [...] were consensually agreed upon. Care Teams Business Objects Relationship Specialty Start Date End Date Igor Mcconnell DO [address] [facility] [place] [address] PCP - General Internal Medicine 02/12/24 documented as of this encounter
--- OUTSIDE RECORDS SUMMARY | 2024-08-26 02:41 | External Medical Summary ---
Author Name Unknown Address Unknown Organization K01:LABORATORY [facility] - [address] [place] [address] Laboratory Report Ordering Provider Test Date Status ANGE GARCÍA 04/01/2024 14:26:15 Final Observation Date Value Abnormality Reference (Units ) Status Uric Acid 04/01/2024 14:26:15 9.9 Above high normal 3. 4-7.0 (mg/dL) Final Performing Location LABORATORY [facility] - [address] [place] [address]
--- OUTSIDE RECORDS SUMMARY | 2024-08-26 02:41 | External Medical Summary | Summary of Care ---
Author Name Unknown Organization [facility] Address [address] [facility] [place] [address] Phone [phone] Care Team Providers Care Jetting Machine Operator Name Role Phone Igor Mcconnell DO Primary Care Provider [phone] Reason for Visit * Reason Comments Outpatient Testing Encounter Details Date Type Department Care Team (Late st Contact Info) Description 04/01/2024 2:30 PM EDT Laboratory Laboratory [address] [place] [phone] [facility] [address] [place] [address] Gout, arthropathy; Mixed dyslipidemia; Chronic heart failure with preserved ejection fraction [...] DX: E11.9 300 Strip 3 09/23/2023 Active Ejbff-5-sihp Ethyl Esters 1 GM Oral Capsule (Lovaza) [...] goal of less than 7.0% ([facility]) INJECT UNDER THE SKIN 100 UNITS TWICE DAILY OR DIRECTED 90 mL 3 01/18/2024 Active Additional Information Patient taking differently: 90 Units Subcutaneous BID(Non-Specified), Reported on 02/12/2024 Torsemide 20 MG Oral Tablet (Demadex)Indications :Chronic heart failure with preserved ejection fraction ([facility]),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 disease ([facility]) Take 4 Tablets by mouth [...] long-term current use of insulin ([facility]) Inject 2 mg under the [...] goal of less than 7.0% ([facility]) INJECT UNDER THE SKIN 20 [...] in the Comments) Remote Patient Monitoring Vendor: [facility] [facility] Device(s): Connected Scale Self - Management Plan [...] has been better controlled recently. Monitor using [employer] Cindy. NEMESIO (acute kidney injury) 04/30/2022 Severe [...] yrs 01/04/2018,08/03/2017,07/03 Pneumococcal Conjugate Vacci ne, 20-valent ([id number]) 06/09/2022 Pneumococcal Polysaccharide PPV23 (Pneumovax) 03/06/2020 RSV [...] No 08/05/2023 Does the household have a [facility] source of income? (Household - for [...] AM EDT Scheduled Telephone [facility], [facility] [address] [place] [address] [facility], Nurse [facility] [address] [place] [address] 04/15/2024 8:30 AM EDT Scheduled Telephone [facility], [facility] Region [address] [facility] [place] [address] Mery Calderon RDN [address] [facility] [place] [address] 05/09/2024 1:40 PM EST Office Visit Nephrology, Susan Palacios 200 [facility] [place] [address] Shviani Magallon MD 200 [facility] [place] [address] 05/30/2024 1:00 PM EST Telemedicine Cardiology [facility], [place] [address] [place] [address] [place] [address], Pharmacist Cardiology [facility] [address] [place] [address] 06/13/2024 11:15 AM EST Hospital Encounter ENDO [facility], Endoscopy Room [facility] 132 [facility] [place] [phone] José Miguel Sifuentes MD [facility] [place] [address] 06/13/2024 11:15 AM EST - 06/13/2024 11:45 AM EST Surgery ENDO [facility], Endoscopy Room [facility] 132 [facility] [place] [phone] José Miguel Sifuentes MD [address] [facility] [place] [address] COLONOSCOPY FLEXIBLE PROXIMAL DIAGNOSTIC 07/01/2024 2:20 PM EST Office Visit Family Practice [address] [place] [address] 293 [place] [address] Igor Mcconnell DO 293 [place] [address] 08/08/2024 9:30 AM EST Nurse Only Ancillary Lazaro Hyde[address] [place] [address] [place], Nurse [address] [place] [address] 10/27/2024 1:00 PM EDT Office Visit Sleep Disorders Ctr [facility] [address] [place] [phone] Lindsey Sheikh CRNP [address] [place] [address] Pending Results Name Type Priority Associated Diagnoses Date /Time URIC ACID Lab Routine Gout, arthropathy 04/01/2024 2:26 PM EDT HEPATIC FUNCTION PANEL Lab Routine Mixed dyslipidemia 04/01/2024 2:26 PM EDT BASIC METABOLIC PANEL Lab Routine Chronic heart failure with preserved ejection fraction (HCC) 04/01/2024 2:26 PM EDT Scheduled Procedures Name Priority Associated [...] 06/11/2023, Additional history exists GFR 09/08/2024 03/11/2024, 0807/2023, 02/12/2024, Additional history exists Diabetic Foot Exam [...] this encounter Medical Devices Implanted Type Area Harvest Worker Field Crop Device Identifier Shelf Expiration Date Model / Serial / Lot Lens Intraoc 21.0 - [id number] - [id number] Implanted:Qty: 1 on 01/22/2017 by Cheko Mcnamara MD at OR [facility] Right: Eye BAUSCH & LOMB 08/05/2021 [id number] / [id number] / [id number] Lens Intraoc 21.5 - [id number] - [id number] Implanted:Qty: 1 on 02/03/2017 by Cheko Mcnamara MD at OR [facility] Left: Eye BAUSCH & LOMB 09/02/2021 [id number] / [id number] / [id number] documented as of this encounter Visit Diagnoses Diagnosis Gout, arthropathy Gouty arthropathy, unspecified Mixed dyslipidemia Mixed hyperlipidemia Chronic heart failure [...] and were consensually agreed upon. Care Teams Jetting Machine Operator Relationship Specialty Start Date End Date Igor Mcconnell DO [address] [place] [address] PCP - General Internal Medicine 02/12/24 documented as of this encounter
--- OUTSIDE RECORDS SUMMARY | 2024-08-26 02:41 | External Medical Summary | Summary of Care ---
Author Name Unknown Organization [facility] Address [address] [place] [address] Phone [phone] Care Team Providers Care Field Sales Engineer Name Role Phone Igor Mcconnell DO Primary Care Provider [phone] Reason for Visit * Reason Onset Date Comments Home Monitoring Orders Only 03/30/2024 Encounter Details Date Type Department Care Team (Late st Contact Info) Description 03/30/2024 Home Monitoring Family Practice [address], [place] [address] [place] [phone] Igor Mcconnell DO [address] [place] [address] Chronic heart failure with preserved ejection fraction [...] DX: E11.9 300 Strip 3 09/23/2023 Active Uukfh-0-bqmy Ethyl Esters 1 GM Oral Capsule (Lovaza) [...] than 7.0% ([facility]) INJECT UNDER THE SKIN 100 UNITS TWICE DAILY OR DIRECTED 90 mL 3 01/18/2024 Active Additional Information Patient taking differently: 90 Units Subcutaneous BID(Non-Specified), Reported on 02/12/2024 Torsemide 20 MG Oral Tablet (Demadex)Indications :Chronic heart failure with preserved ejection fraction ([facility]),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 disease ([facility]) Take 4 Tablets by mouth in the [...] than 7.0% ([facility]) INJECT UNDER THE SKIN 20 UNITS AT BREAKFAST, 26 UNITS AT LUNCH, 38 UNITS WITH DINNER PLUS CORRECTION PER PACIFICA [...] in the Comments) Remote Patient Monitoring Vendor: [employer] Device(s): Connected Scale Self - Management Plan [...] has been better controlled recently. Monitor using [employer] Cindy. NEMESIO (acute kidney injury) 04/30/2022 Severe [...] yrs 01/04/2018,08/03/2017,07/03 Pneumococcal Conjugate Vacci ne, 20-valent ([id number]) 06/09/2022 Pneumococcal Polysaccharide PPV23 (Pneumovax) 03/06/2020 RSV [...] No 08/05/2023 Does the household have a [facility] source of income? (Household - for [...] as of this encounter Progress Notes * Zulema Villalta OSA - 03/30/2024 4:24 PM EDT Patient has been successfully enrolled to the [id number] [facility] program and will be provided with the Current Health Wearable device to facilitate their participation in remote monitoring: Scale O2 Patient has been oriented to remote patient monitoring by their Promos Executive Producer. The binder caser has also provided the patient with instruction and education regarding the program. Current health to assist with initial device set-up. Delivery Method: Vendor supplied Patient understands that this monitoring should not be used as a replacement for emergency and/or urgent care. If patient experiences any urgent symptoms, they are aware to call their parking lot manager for additional instructions. In emergency situations, they will either call 911 or report directly to the ED for further evaluation. documented in this encounter Plan of Treatment Upcoming Encounters Date Type Department Care Team (Late st Contact Info) Description 03/31/2024 10:00 AM EDT Scheduled Telephone [facility], [facility] [address] [place] [address] Coordinator, [facility] [address] [place] [address] 04/15/2024 8:30 AM EDT Scheduled Telephone [facility], [facility] [address] [facility] [place] [address] Mery Calderon, RDN [address] [place] [facility] [place] [place] [address] 05/09/2024 1:40 PM EST Office Visit Nephrology, [facility] 200 [facility] [place] [address] Shivani Magallon MD 200 [facility] [place] [address] 05/30/2024 1:00 PM EST Telemedicine Cardiology [facility], [place] [address] [place] [address] [facility], Pharmacist Cardiology [facility] [address] [place], [place] [phone] 06/13/2024 11:15 AM EST Hospital Encounter ENDO [facility], Endoscopy Room [facility] [address] [place] [phone] José Miguel Sifuentes MD 132 [place] [address] 06/13/2024 11:15 AM EST - 06/13/2024 11:45 AM EST Surgery ENDO [facility], Endoscopy Room [facility] [address] [place] [phone] José Miguel Sifuentes MD 132 [facility] [place] [address] COLONOSCOPY FLEXIBLE PROXIMAL DIAGNOSTIC 07/01/2024 2:20 PM EST Office Visit Family Practice [address] [place] [address] 293 [facility] [place] [phone] Igor Mcconnell, [address] [facility], [place] [address] 08/08/2024 9:30 AM EST Nurse Only Ancillary [address] [place] [address] [place], Nurse [address] [place] [address] 10/27/2024 1:00 PM EDT Office Visit Sleep Disorders Ctr [facility] [address] [place] [phone] Lindsey Sheikh CRNP 132 [facility] [place] [address] Scheduled Procedures Name Priority Associated Diagnoses Date/Ti hi COLONOSCOPY FLEXIBLE PROXIMA L DIAGNOSTIC Recall Special [...] encounter Medical Devices Implanted Type Area Division Chief Device Identifier Shelf Expiration Date Model / Serial / Lot Lens Intraoc 21.0 - [id number] - [id number] Implanted:Qty: 1 on 01/22/2017 by Cheko Mcnamara MD at OR [facility] Right: Eye BAUSCH [employer] LOMB 08/05/2021 [id number] / [id number] / [id number] Lens Intraoc 21.5 - [id number] - [id number] Implanted:Qty: 1 on 02/03/2017 by Cheko Mcnamara MD at OR [facility] Left: Eye BAUSCH & LOMB 09/02/2021 [id number] / [id number] / [id number] documented as of this encounter Visit Diagnoses [...] were consensually agreed upon. Care Teams Field Sales Engineer Relationship Specialty Start Date End Date Igor Mcconnell DO [address] [facility] [place] [address] PCP - General Internal Medicine 02/12/24 documented as of this encounter
--- OUTSIDE RECORDS SUMMARY | 2024-08-26 02:41 | External Medical Summary | Summary of Care ---
Author Name Unknown Organization [facility] Address [address] [place] [address] Phone [phone] Care Team Providers Care Well Puller Name Role Phone Igor Mcconnell DO Primary Care Provider [phone] Reason for Visit * Reason Onset Date Comments [facility]: Maintenance 03/31/2024 Encounter Details Date Type Department Care Team (Late st Contact Info) Description 03/31/2024 10:00 AM EDT Scheduled Telephone [facility], [facility] [address] [place] [address] Coordinator, [facility] [address] [place] [address] Allergies Active Allergy Reactions Criticality Noted Date [...] DX: E11.9 300 Strip 3 09/23/2023 Active Yklmp-0-ubyv Ethyl Esters 1 GM Oral Capsule (Lovaza) [...] goal of less than 7.0% ([facility]) INJECT UNDER THE SKIN 100 UNITS TWICE DAILY OR DIRECTED 90 mL 3 01/18/2024 Active Additional Information Patient taking differently: 90 Units Subcutaneous BID(Non-Specified), Reported on 02/12/2024 Torsemide 20 MG Oral Tablet (Demadex)Indications :Chronic heart failure with preserved ejection fraction ([facility]),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 disease ([facility]) Take 4 Tablets by mouth in the [...] long-term current use of insulin ([facility]) Inject 2 mg under the skin once [...] goal of less than 7.0% ([facility]) INJECT UNDER THE SKIN 20 UNITS AT BREAKFAST, 26 UNITS AT LUNCH, 38 UNITS WITH DINNER PLUS CORRECTION PER HOAG [...] in the Comments) Remote Patient Monitoring Vendor: Tamion Device(s): Connected Scale Self - Management Plan [...] has been better controlled recently. Monitor using orderTalkstyle Cindy. NEMESIO (acute kidney injury) 04/30/2022 Severe [...] yrs 01/04/2018,08/03/2017,07/03 Pneumococcal Conjugate Vacci ne, 20-valent ([id number]) 06/09/2022 Pneumococcal Polysaccharide PPV23 (Pneumovax) 03/06/2020 RSV [...] Telephone Encounter - Shruti Marquez LPN - 03/31/2024 9:04 AM EDT [facility] Telephonic Nurse Follow-Up Call [facility] Subprogram: Focused Care Management (3-9 months) Follow Up Call Type: Routine follow up call / Status Check Acute issue requiring follow-up call: Heart Failure Exacerbation Objective: 03/29/2024 2:16 PM 03/16/2024 2:50 PM 03/11/2024 8:19 AM 03/03/2024 3:04 PM 03/01/2024 2:23 PM VITALS ACROSS ENCOUNTERS BP 132/58 124/60 122/68 130/54 120/60 Pulse 72 72 62 67 70 Weight 124.2 kg 130.6 kg 132.2 kg 130.6 kg BMI 39.05 BMI 37.15 kg/m2 39.06 kg/m2 39.53 kg/m2 39.06 kg/m2 Remote Patient Monitoring: [facility] Scale: 275.4 Oxygen Needs: NO CHANGE from baseline supplemental [...] at baseline Current Concerns: Spoke with pt SOB and bloating is improved today. He did have increased urine output yesterday. Denies any missed doses of diuretic, adherent to sodium/fluid restriction. Last dose of metolazone taken yesterday. F/U call scheduled. He will call [facility] with any concerns. Disposition: Routed to [facility] and/or [facility] Care Team for further advice and Follow up call scheduled for tomorrow with ROSCOE AldanaArchitect Manager Future Visits Scheduled: Future Appointments-next 60 days Date/Time Provider Specialty Dept Phone 03/31/2024 10:00 AM [facility] [phone] 04/15/2024 8:30 AM Mery Calderon RDN [facility] [phone] 05/09/2024 1:40 PM (Arrive by 1:25 PM) Shivani Magallon MD Nephrology [phone] 05/30/2024 1:00 PM Gael Zuniga Cardiology [facility] Cardiology Arrive at: Patient's Home [phone] 07/01/2024 2:20 PM (Arrive by 2:05 PM) Igor Mcconnell DO Family Medicine [phone] 08/08/2024 9:30 AM Nurse [facility] Ancillary [phone] 10/27/2024 1:00 PM (Arrive by 12:45 PM) Lindsey Sheikh CRNP Sleep Disorders [phone] Shruti Marquez LPN documented in this encounter Plan of Treatment Upcoming Encounters Date Type Department Care Team (Late st Contact Info) Description 04/01/2024 12:15 PM EDT Scheduled Telephone [facility], [facility] [address] [facility] [place] [address] Coordinator, [facility] [address] [place] [address] 04/15/2024 8:30 AM EDT Scheduled Telephone [facility], [facility] [address] [place] [address] Mery Calderon RDN [address] [place] [address] 05/09/2024 1:40 PM EST Office Visit Nephrology, [facility] [address] [place] [address] Shivani Magallon MD [address] [place] [address] 05/30/2024 1:00 PM EST Telemedicine Cardiology [facility] [address] [place] [address] [place] [address], Pharmacist Cardiology [facility] [address], [place] [id number] 06/13/2024 11:15 AM EST Hospital Encounter ENDO [facility], Endoscopy Room [facility] [address] [place] [phone] José Miguel Sifuentes MD [address] [facility] [place] [address] 06/13/2024 11:15 AM EST - 06/13/2024 11:45 AM EST Surgery ENDO [facility], Endoscopy Room [facility] [address] [place] [phone] José Miguel Sifuentes MD [address] [place] [address] COLONOSCOPY FLEXIBLE PROXIMAL DIAGNOSTIC 07/01/2024 2:20 PM EST Office Visit Family Practice [address] [place] [address] [address] [facility] [place] [address] Igor Mcconnell, [address] [place] [address] 08/08/2024 9:30 AM EST Nurse Only Ancillary [address] [place] [address] [place], Nurse [address] [place] [address] 10/27/2024 1:00 PM EDT Office Visit Sleep Disorders Ctr [facility] [address] [place] [phone] Lindsey Sheikh CRNP [address] [facility] [place] [address] Scheduled Procedures Name Priority Associated Diagnoses Date/Ti [...] this encounter Medical Devices Implanted Type Area Remote Recruiter Device Identifier Shelf Expiration Date Model / Serial / Lot Lens Intraoc 21.0 - [id number] - [id number] Implanted:Qty: 1 on 01/22/2017 by Cheko Mcnamara MD at OR [facility] Right: Eye BAUSCH [employer] LOMB 08/05/2021 [id number] / [id number] / [id number] Lens Intraoc 21.5 - [id number] - [id number] Implanted:Qty: 1 on 02/03/2017 by Cheko Mcnamara MD at OR [facility] Left: Eye BAUSCH [employer] LOMB 09/02/2021 [id number] / [id number] / [id number] documented as of this encounter Advance Directives [...] and were consensually agreed upon. Care Teams Well Puller Relationship Specialty Start Date End Date Igor Mcconnell DO [address] [place] [place] [place] [address] PCP - General Internal Medicine 02/12/24 documented as of this encounter
--- OUTSIDE RECORDS SUMMARY | 2024-08-26 02:42 | External Medical Summary | Summary of Care ---
Author Name Unknown Organization [facility] Address [address] [facility] [place] [address] Phone [phone] Care Team Providers Care Wave Soldering Machine Operator Name Role Phone Igor Mcconnell DO Primary Care Provider [phone] Reason for Visit * Reason Onset Date Comments [facility]: Maintenance 03/30/2024 Encounter Details Date Type Department Care Team (Late st Contact Info) Description 03/30/2024 12:45 PM EDT Scheduled Telephone [facility], [facility] [address] [place] [address] Coordinator, [facility] [address] [place] [address] Allergies Active Allergy Reactions Criticality Noted Date [...] DX: E11.9 300 Strip 3 09/23/2023 Active Mcqdj-3-ktgs Ethyl Esters 1 GM Oral Capsule (Lovaza) [...] [facility] [place]) INJECT UNDER THE SKIN 100 UNITS TWICE DAILY OR DIRECTED 90 mL 3 01/18/2024 Active Additional Information Patient taking differently: 90 Units Subcutaneous BID(Non-Specified), Reported on 02/12/2024 Torsemide 20 MG Oral Tablet (Demadex)Indications :Chronic heart failure with preserved ejection fraction ([facility]),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 disease ([facility]) Take 4 Tablets by mouth in the [...] 38 UNITS WITH DINNER PLUS CORRECTION PER [facility] OR DIRECTED UP TO [...] in the Comments) Remote Patient Monitoring Vendor: [email or web address] Device(s): Connected Scale Self - Management Plan [...] has been better controlled recently. Monitor using beModelstyle Cindy. NEMESIO (acute kidney injury) 04/30/2022 Severe [...] yrs 01/04/2018,08/03/2017,07/03 Pneumococcal Conjugate Vacci ne, 20-valent ([id number]) 06/09/2022 Pneumococcal Polysaccharide PPV23 (Pneumovax) 03/06/2020 RSV [...] No 08/05/2023 Does the household have a [facility] source of income? (Household - [...] Telephone Encounter - Shruti Marquez LPN - 03/30/2024 12:33 PM EDT Images from the original note were not included. [facility] Remote Patient Monitoring Able to contact patient: Trigger type: Abnormal reading(s): AMC (Advanced Monitored Caregiving): Scale: Trigger weight: 278.1 lbs; weight increased 5.7 lbs in 2 day(s) Trigger priority per AMC: high Patient takes diuretic medication: Yes, reviewed current diuretic use: Name of medication: torsemide Dose: 80 mg Frequency: BID Symptom review: SOB: + Abdominal Fullness: + Diet Reviewed: Yes. Patient [...] DTP: Name of medication(s): metolazone Dose: 2.5 Frequency: x 2 days Used in past 2 weeks: Yes, 03/25, 03/29 Risk assignment recommendation: Moderate risk findings (check [...] justification: Spoke with pt c/o increased SOB and bloating slightly worse than yesterday. He took metolazone 2.5 mg last night. He has not yet had increased urine output. Per pt he barley ate yesterday due to SOB and bloating. Had acute HV yesterday. DTP is listed as metolazone 2.5 mg x 2 days. Per pt he was told to only take 1 dose and he does not usually notice a different until the second dose. Will route to care team for further direction. Overall risk and identified plan: High risk: Route to RNCM (Registered Nurse Sap Integration Architect) and Advance Practitioner Route to RMC (Remote Medical Coordinator) documented in this encounter Plan of Treatment Upcoming Encounters Date Type Department Care Team (Late st Contact Info) Description 03/31/2024 10:00 AM EDT Scheduled Telephone [facility], [facility] [address] [place] [address] Coordinator, [facility] [address] [facility] [place] [address] 04/15/2024 8:30 AM EDT Scheduled Telephone [facility], [facility] [address] [place] [facility] [place] [address] eMry Calderon RDN [address] [place] [address] 05/09/2024 1:40 PM EST Office Visit Nephrology, [facility] [address] [facility] [place] [address] Shivani Magallon MD [address] [facility] [place] [address] 05/30/2024 1:00 PM EST Telemedicine Cardiology [facility] [address] [place] [address] [place] [address], Pharmacist Cardiology [facility] [address], [place] [phone] 06/13/2024 11:15 AM EST Hospital Encounter ENDO [facility], Endoscopy Room [facility] [address] [facility] [place] [phone] José Miguel Sifuentes MD [address] [place] [address] 06/13/2024 11:15 AM EST - 06/13/2024 11:45 AM EST Surgery ENDO [facility], Endoscopy Room [facility] [address] [place] [phone] José Miguel Sifuentes MD [address] [facility] [place] [address] COLONOSCOPY FLEXIBLE PROXIMAL DIAGNOSTIC 07/01/2024 2:20 PM EST Office Visit Family [address] [place] [address] Igor Mcconnell, [address] [place] [address] 08/08/2024 9:30 AM EST Nurse Only Ancillary [address] [place] [address] [place], Nurse [address] [place] [address] 10/27/2024 1:00 PM EDT Office Visit Sleep Disorders Ctr [facility] [address] [facility] [place] [phone] Lindsey Sheikh CRNP [address] [facility] [place] [address] Scheduled Procedures Name Priority Associated Diagnoses Date/Ti [...] encounter Medical Devices Implanted Type Area Director Of Patient Care Device Identifier Shelf Expiration Date Model / Serial / Lot Lens Intraoc 21.0 - [id number] - [id number] Implanted:Qty: 1 on 01/22/2017 by Cheko Mcnamara MD at OR [facility] Right: Eye BAUSCH [employer] LOMB 08/05/2021 [id number] / [id number] / [id number] Lens Intraoc 21.5 - [id number] - [id number] Implanted:Qty: 1 on 02/03/2017 by Cheko Mcnamara MD at OR [facility] Left: Eye BAUSCH & LOMB 09/02/2021 [id number] / [id number] / [id number] documented as of this encounter Advance Directives [...] and were consensually agreed upon. Care Teams Wave Soldering Machine Operator Relationship Specialty Start Date End Date Igor Mcconnell DO [address] [facility] [place] [address] PCP - General Internal Medicine 02/12/24 documented as of this encounter
--- OUTSIDE RECORDS SUMMARY | 2024-08-26 02:42 | External Medical Summary | Summary of Care ---
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 [facility] Current Health Device(s) Requested Pulse Ox Alarm Settings Standard per protocol * Evaluate & Treat - Unlimited Visits (Within 10 days (routine)) - Authorized Specialty Diagnoses / Procedures Referred By Contac t Referred To Contact Pharmacist / Pharmacy Diagnoses 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) Mikal Covington MD [address] [place] [address] Referral ID Status Reason Start Date Expiration Date Visits Requested Visits Authorized [id number] Authorized Specialty Services Required 03/24/2024 09/20/2024 99 99 Question Answer Referral Priority Within 10 days (routine) Where should this appointment be scheduled? [facility] Referring Provider Role: Specialist Specialty: Nephro Reason for Referral: HTN Goal BP: < 130/80 Comments Pharmacist Medication Therapy Management: Minimum frequency patient should be seen in person for medication management: as appropriate per clinical condition and patient status By my signature, I understand that my patient Tony Delong will have his medication therapy managed by the [facility] Medication [facility] Disease Management [facility] ([facility]) per established policies, procedures, and protocols. I also certify that this referral may serve as an initiation of service for the management of drug therapy in the above noted patient. [facility] providers will be responsible for scheduling patient visits, obtaining appropriate laboratory studies, and adjusting medication management therapy per patient's need, in addition to those roles spelled out in the clinic policy, procedures, and drug management protocols. I understand that the service provided by the [facility] is voluntary and have informed patient that they can refuse the service at their discretion. I am aware that the [facility] will provide me with a copy of the patient encounter via my [employer]. I authorize the [facility] to carry out these activities on my behalf. I consider this program to be a necessary part of the patient's medical care. Mikal Covington MD Reason for Visit * Reason Onset Date Comments [facility]: Maintenance 03/24/2024 Encounter Details Date Type Department Care Team (Late st Contact Info) Description 03/24/2024 Telephone [facility], [facility] [address] [facility] [place] [address] Minerva Marquez LPN [address] [facility] [address] [place] [address] [facility]: Maintenance Allergies Active Allergy [...] DX: E11.9 300 Strip 3 09/23/2023 Active Fupvb-1-akvl Ethyl Esters 1 GM Oral Capsule (Lovaza) [...] A1c goal of less than 7.0% ([facility]) INJECT UNDER THE SKIN 100 UNITS TWICE DAILY OR DIRECTED 90 mL 3 01/18/2024 5 Active Additional Information Patient taking differently: 90 Units Subcutaneous BID(Non-Specified), Reported on 02/12/2024 Torsemide 20 MG Oral Tablet (Demadex)Indications :Chronic heart failure with preserved ejection fraction ([facility]),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 disease ([facility]) Take 4 Tablets by mouth in the [...] with long-term current use of insulin ([facility]) Inject 2 mg under the skin once [...] A1c goal of less than 7.0% ([facility]) INJECT UNDER THE SKIN 20 UNITS AT BREAKFAST, 26 UNITS AT LUNCH, 38 UNITS WITH DINNER PLUS CORRECTION PER [facility] OR DIRECTED UP TO 120 UNITS PER DAY 120 mL 3 03/21/2024 Active DIURETIC TITRATION PLAN If no improvement on day 3, contact [facility] for possible home visit 1 Each 03/24/2024 Active documented as of this encounter [...] in the Comments) Remote Patient Monitoring Vendor: [employer] Device(s): Connected Scale Self - Management Plan [...] yrs 01/04/2018,08/03/2017,07/03 Pneumococcal Conjugate Vacci ne, 20-valent ([id number]) 06/09/2022 Pneumococcal Polysaccharide PPV23 (Pneumovax) 03/06/2020 RSV [...] encounter Miscellaneous Notes * Telephone Encounter - Minerva Marquez LPN - 03/24/2024 5:08 PM EDT Current Health Enrollment Screening Contacted patient regarding the following: As part of your enrollment, your Care Team would like toprovide you with tools for us to monitor important vital signs like your oxygen levels, your heart rate, respiration rate, your skin temperature, your blood pressure, your weight, and how much you'removing. These tools will help to manage early changes in both acute and chronic conditions. Outcome of Enrollment Screening: Agreeable to Enroll: Device(s): Nonin Pulse Oximeter Enrollment Diagnosis: Chronic Obstructive Pulmonary Disease Method of Delivery: Vendor Supplied * Addendum Note - Minerva Marquez LPN - 03/24/2024 2:09 PM EDTAddended by: MINERVA MARQUEZ on: 03/24/2024 02:09 PM Modules accepted: Orders * Telephone Encounter - Minerva Marquez LPN - 03/24/2024 2:06 PM EDT Spoke with pt he discussed switching to Current Health with RNCM at 03/[address] for Current Health scale on 03/16. Will add order for pulse ox. Pt will call [facility] with any concerns. * Addendum Note - Mikal Covington MD - 03/24/2024 1:20 PM EDTAddended by: MIKAL COVINGTON on: 03/24/2024 01:20 PM Modules accepted: Orders * Telephone Encounter - Mikal Covington MD - 03/24/2024 1:09 PM EDT Makes sense to streamline care and care apps but will need a few adjustments on our end for HTN care as below. So we are trying to keep wt below what target? I don't see target weight on list below (to go w/ wtgain limits/DTP) >> Would like to continue pharmacist follow-up periodically on his blood pressures and am copying his MTM and placing new referral for MTM to follow for hypertension in lieu of cc365 MTM and CC365 FYI Neph cnc mill set up operator pls ensure f/u per last neph note * Addendum Note - Gregg Mulligan DO - 03/24/2024 11:09 AM EDTAddended by: GREGG MULLIGAN on: 03/24/2024 11:09 AM Modules accepted: Orders * Telephone Encounter - Gregg Mulligan DO - 03/24/2024 11:05 AM EDT [facility] Remote Medical Command QuickNote Recommendations: Agree with Metolazone Was previously or may be currently on [facility] RPM Program - I would like to change all of his devicesto as he is able to use a smart device since he's in this program. Please do the appropriate screening so we can only be using 1 platform. Orders: Plan DIURETIC TITRATION PLAN To Do: Please see below for follow up items to be completed and correspondence: Looping you in Dr Verduzco since you follow for the [facility] HTN RPM work - I think it would be best to also have his scale and pulse ox be within the current health platform so all of his info is in [employer] and he's only using 1 vendor JOSE ALFREDO to Tony's Care Team Telephonic [employer] Pool please work on the following: see above Gregg Mulligan DO Remote Medical Command - [facility] 03/24/2024 Scheduled appointments in the next 60 days: Future Appointments-next 60 days Date/Time Provider Specialty Dept Phone 03/25/2024 12:15 PM Coordinator, Morales Aldana [facility] [phone] 04/15/2024 8:30 AM Mery Calderon RDN [facility] [phone] 07/01/2024 2:20 PM (Arrive by 2:05 PM) Igor Mcconnell DO Family Medicine [phone] 07/08/2024 2:20 PM (Arrive by 2:05 PM) Mikal Covington MD Nephrology [phone] 08/08/2024 9:30 AM Nurse [facility] Anc[facility] [phone] 10/27/2024 1:00 PM (Arrive by 12:45 PM) Lindsey Sheikh CRNP Sleep Disorders [phone] * Telephone Encounter - Minerva MarquezROSCOE - 03/24/2024 10:17 AM EDT Images from the original note were not included. [facility] Remote Patient Monitoring Able to contact patient: Trigger type: Abnormal reading(s): AMC (Advanced Monitored Caregiving): Scale: Trigger weight: 278.1 lbs; weight increased 7.7 lbs in 3 day(s) Trigger priority per AMC: high Patient takes diuretic medication: Yes, reviewed current diuretic use: Name of medication: torsemide Dose: 80 mg Frequency: BID Symptom review: Edema: + Abdominal Fullness: + Diet Reviewed: Yes. [...] Describe DTP: Name of medication(s): metolazone Dose: 2.5mg Frequency: as needed Used in past 2 weeks: No Risk [...] risk selection justification: Spoke with pt he does have BLE edema, abdominal fullness and congestion starting today. Denies increased SOB. He believes he is adherent to sodium/fluid restriction. He had decreased urine output yesterday. Denies any missed doses of medication. He took metolazone 2.5 mg this morning due to increased wt. F/U call scheduled. He will call [facility] with any concerns. Overall risk and identified plan: High risk: Next day follow up call scheduled Route to RNCM (Registered Nurse Camera Maker) and Advance Practitioner Route to RMC (Remote Medical Coordinator) Initiate DTP (Diuretic Titration Protocol) if applicable documented in this encounter Plan of Treatment Upcoming Encounters Date Type Department Care Team (Late st Contact Info) Description 03/31/2024 10:00 AM EDT Scheduled Telephone [facility], [facility] [address] [place] [address] Coordinator, [facility] [address] [place] [address] 04/15/2024 8:30 AM EDT Scheduled Telephone [facility], [facility] [address] [facility] [place] [address] Mery Calderon RDN [address] [facility] [place] [address] 05/09/2024 1:40 PM EST Office Visit Nephrology, [facility] [address] [facility] [place] [address] Mikal Covington MD [address] [facility] [place] [address] 05/30/2024 1:00 PM EST Telemedicine Cardiology [facility], [place] [address] [place] [address] [place] [address], Pharmacist Cardiology [facility] [address] [place] [address] 06/13/2024 11:15 AM EST Hospital Encounter ENDO OSSC, Endoscopy Room [facility] 132 [facility] [place] [phone] José Miguel Sifuentes MD [address] [facility] [place] [address] 06/13/2024 11:15 AM EST - 06/13/2024 11:45 AM EST Surgery ENDO OSSC, Endoscopy Room [facility] 132 [facility] [place] [phone] José Miguel Sifuentes MD [address] [place] [address] COLONOSCOPY FLEXIBLE PROXIMAL DIAGNOSTIC 07/01/2024 2:20 PM EST Office Visit Family Practice [address] [place] [address], [place] [address] [place] [address] Igor Mcconnell DO [address] [place] [address] 08/08/2024 9:30 AM EST Nurse Only Ancillary [address] [place] [address] [place], Nurse [address] [place] [address] 10/27/2024 1:00 PM EDT Office Visit Sleep Disorders Ctr [facility] [address] [place] [phone] Lindsey Sheikh CRNP [address] [place] [address] Scheduled Procedures Name Priority Associated Diagnoses Date/Ti [...] 4 chronic kidney disease (HCC) Ordered: 03/24/2024 REMOTE PATIENT MONITORING REFERRAL Referral Within 10 days (routine) Hypertensive heart [...] this encounter Medical Devices Implanted Type Area Gas Manager Device Identifier Shelf Expiration Date Model / Serial / Lot Lens Intraoc 21.0 - [id number] - [id number] Implanted:Qty: 1 on 01/22/2017 by Cheko Mcnamara MD at OR [facility] Right: Eye [employer]OM[employer] 08/05/2021 [id number] / [id number] / [id number] Lens Intraoc 21.5 - [id number] - [id number] Implanted:Qty: 1 on 02/03/2017 by Cheko Mcnamara MD at OR [facility] Left: Eye [employer]CH [employer]OMB 09/02/2021 [id number] / [id number] / [id number] documented as of this encounter Visit Diagnoses [...] and were consensually agreed upon. Care Teams Aerospace Quality Engineer Relationship Specialty Start Date End Date Igor Mcconnell DO [address] [place] [address] PCP - General Internal Medicine 02/12/24 documented as of this encounter
--- OUTSIDE RECORDS SUMMARY | 2024-08-26 02:42 | External Medical Summary | Summary of Care ---
Author Name Unknown Organization [facility] Address [address] [facility] [place] [address] Phone [phone] Care Team Providers Care Casting Room Operator Name Role Phone Igor Mcconnell DO Primary Care Provider [phone] Reason for Visit * Reason Onset Date Comments [facility]: Maintenance 03/30/2024 Encounter Details Date Type Department Care Team (Late st Contact Info) Description 03/30/2024 12:45 PM EDT Scheduled Telephone [facility], [facility] [address] [place] [address] Coordinator, [facility] [address] [place] [address] Allergies Active Allergy Reactions Criticality Noted Date [...] DX: E11.9 300 Strip 3 09/23/2023 Active Pawtv-4-ugvo Ethyl Esters 1 GM Oral Capsule (Lovaza) [...] hemoglobin A1c goal of less than 7.0% ([facility]) INJECT UNDER THE SKIN 100 UNITS TWICE DAILY OR DIRECTED 90 mL 3 01/18/2024 Active Additional Information Patient taking differently: 90 Units Subcutaneous BID(Non-Specified), Reported on 02/12/2024 Torsemide 20 MG Oral Tablet (Demadex)Indications :Chronic heart failure with preserved ejection fraction ([facility]),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 disease ([facility]) Take 4 Tablets by mouth [...] use of insulin ([facility]) Inject 2 mg under the [...] hemoglobin A1c goal of less than 7.0% ([facility]) INJECT UNDER THE SKIN 20 UNITS AT BREAKFAST, 26 UNITS AT LUNCH, 38 UNITS WITH DINNER PLUS CORRECTION PER [facility] OR DIRECTED UP TO 120 UNITS PER DAY 120 mL 3 03/21/2024 Active DIURETIC TITRATION PLAN If no improvement on day 3, contact [facility] for possible home visit 1 Each [...] in the Comments) Remote Patient Monitoring Vendor: [employer] Device(s): Connected Scale Self - Management Plan [...] has been better controlled recently. Monitor using Vivonetstyle Cindy. NEMESIO (acute kidney injury) 04/30/2022 Severe [...] yrs 01/04/2018,08/03/2017,07/03 Pneumococcal Conjugate Vacci ne, 20-valent (Fnttcmn83) 06/09/2022 Pneumococcal Polysaccharide PPV23 (Pneumovax) 03/06/2020 RSV [...] No 08/05/2023 Does the household have a [facility] source of income? (Household - [...] Telephone Encounter - Josh Sullivan MD - 03/30/2024 2:04 PM EDT RN note from yesterday home visit not complete so I am uncertain of the assessment and plan TT w/ Love L Have pt repeat metolazone 2.5 mg po today Follow-up phone call tomorrow Labs scheduled for Fri Josh Sullivan MD, MSPC, HMDC, FAAFP Remote Medical Command ([facility]) [facility] on [employer] * Telephone Encounter - Shruti Marquez LPN [...] High risk: Route to RNCM (Registered Nurse Booking Clerk) and Advance Practitioner Route to RMC (Remote Medical Coordinator) documented in this encounter Plan of Treatment Upcoming Encounters Date Type Department Care Team (Late st Contact Info) Description 03/31/2024 10:00 AM EDT Scheduled Telephone [facility], [facility] [address] [place] [address] Coordinator, [facility] [address] [place] [address] 04/15/2024 8:30 AM EDT Scheduled Telephone [facility], [facility] [address] [facility] [place] [address] Mery Calderon RDN [address] [facility] [place] [address] 05/09/2024 1:40 PM EST Office Visit Nephrology, [facility] [address] [place], [place] [address] Shivani Magallon MD [address] [place] [address] 05/30/2024 1:00 PM EST Telemedicine Cardiology [facility] [place] [address] [place] [address] [place] [address], Pharmacist Cardiology [facility] [address] [place] [address] 06/13/2024 11:15 AM EST Hospital Encounter ENDO OSSC, Endoscopy Room [facility] 132 [facility] [place] [phone] José Miguel Sifuentes MD 132 [place] [address] 06/13/2024 11:15 AM EST - 06/13/2024 11:45 AM EST Surgery ENDO OSSC, Endoscopy Room [facility] 132 [facility] [place] [phone] José Miguel Sifuentes MD [address] [place] [place] [address] COLONOSCOPY FLEXIBLE PROXIMAL DIAGNOSTIC 07/01/2024 2:20 PM EST Office Visit Family Practice [address] [place] [address] 293 [place] [address] Igor Mcconnell DO 293 [facility] [place] [address] 08/08/2024 9:30 AM EST Nurse Only Ancillary [address] [place] [address] [place], Nurse [address] [place] [address] 10/27/2024 1:00 PM EDT Office [facility] [address] [place] [phone] Lindsey Sheikh CRNP [address] [place] [address] Scheduled Procedures Name Priority Associated Diagnoses Date/Ti [...] encounter Medical Devices Implanted Type Area Fur Scraper Device Identifier Shelf Expiration Date Model / Serial / Lot Lens Intraoc 21.0 - [id number] - [id number] Implanted:Qty: 1 on 01/22/2017 by Cheko Mcnamara MD at OR [facility] Right: Eye BAUSCH [employer] LOMB 08/05/2021 [id number] / [id number] / [id number] Lens Intraoc 21.5 - [id number] - [id number] Implanted:Qty: 1 on 02/03/2017 by Cheko Mcnamara MD at OR [facility] Left: Eye BAUSCH & LOMB 09/02/2021 [id number] / [id number] / [id number] documented as of this encounter Advance Directives [...] were consensually agreed upon. Care Teams Casting Room Operator Relationship Specialty Start Date End Date Igor Mcconnell DO [address] [place] [address] PCP - General Internal Medicine 02/12/24 documented as of this encounter
--- OUTSIDE RECORDS SUMMARY | 2024-08-26 02:42 | External Medical Summary | Summary of Care ---
Author Name Unknown Organization [facility] Address [address] [facility] [place] [address] Phone [phone] Care Team Providers Care Bpm Analyst Name Role Phone Igor Mcconnell DO Primary Care Provider [phone] Reason for Visit * Reason Onset Date Comments [facility]: Maintenance 03/29/2024 Encounter Details Date Type Department Care Team (Late st Contact Info) Description 03/29/2024 Telephone [facility], [facility] [address] [facility] [place] [address] Janeth Kelley, [facility] [address] [facility] [address] [facility]: Maintenance Allergies Active Allergy Reactions Criticality Noted Date Comments Metolazone Renal complications 11/10/2023 Note prior DTP with metolazone resulted in acute renal failure Other Allergy (See Comments) Rash Low 10/13/2022 1+ cocamidopropyl betaine Sglt2 Inhibitors Other (Please comment) High 09/04/2020 Genital infection Sulfa Antibiotics Rash 10/15/2016 documented as of this encounter (statuses as of 03/29/2024) Medications Medication Sig Dispensed Refills Start Date [...] DX: E11.9 300 Strip 3 09/23/2023 Active Bsuha-6-akwb Ethyl Esters 1 GM Oral Capsule (Lovaza) [...] goal of less than 7.0% ([facility]) INJECT UNDER THE SKIN 100 UNITS TWICE DAILY OR DIRECTED 90 mL 3 01/18/2024 Active Additional Information Patient taking differently: 90 Units Subcutaneous BID(Non-Specified), Reported on 02/12/2024 Torsemide 20 MG Oral Tablet (Demadex)Indications :Chronic heart failure with preserved ejection fraction ([facility]),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 disease ([facility]) Take 4 Tablets by mouth in [...] long-term current use of insulin ([facility]) Inject 2 mg under the skin [...] goal of less than 7.0% ([facility]) INJECT UNDER THE SKIN 20 UNITS AT BREAKFAST, 26 UNITS AT LUNCH, 38 UNITS WITH DINNER PLUS CORRECTION PER [facility] OR DIRECTED UP TO 120 UNITS PER DAY 120 mL 3 03/21/2024 Active DIURETIC TITRATION PLAN If no improvement on day 3, contact [facility] for possible home visit 1 [...] as of this encounter (statuses as of 03/29/2024) Active Problems Patient Care Coordination No te [...] in the Comments) Remote Patient Monitoring Vendor: [facility] [...] as of this encounter (statuses as of 03/29/2024) Resolved Problems Problem Noted Date Diagnosed Date [...] been better controlled recently. Monitor using The Gluten Free Gourmet[employer] Cindy. NEMESIO (acute kidney injury) 04/30/2022 Severe [...] as of this encounter (statuses as of 03/29/2024) Immunizations Name Administration Dates Next Due COVID-19 mRNA, LNP-s, No Pre serve, 2-Dose Series (Moderna) 12/10/2020,11/12/2020 Hepatitis B, 20+ yrs 01/04/2018,08/03/2017,07/03 Pneumococcal Conjugate Vacci ne, 20-valent ([id number]) 06/09/2022 Pneumococcal Polysaccharide PPV23 (Pneumovax) 03/06/2020 RSV [...] 08/05/2023 Does the household have a [facility] [...] Telephone Encounter - Janeth Kelley LPN - 03/29/2024 11:17 AM EDT Images from the original note were not included. [facility] Remote Patient Monitoring Able to contact patient: Trigger type: Abnormal reading(s): AMC (Advanced Monitored Caregiving): Scale: Trigger weight: 153.6 lbs; weight increased 7.5 lbs in 1 day(s) Patient takes diuretic medication: Yes, reviewed current diuretic use: Name of medication: Torsemide Dose: 80 mg Frequency: BID Symptom review: SOB: w exertion Diet Reviewed: No, Pt refused Fluid Intake Reviewed: Yes. Patient is on a fluid restriction: Yes, restriction amount in milliliters or liters: Pt refused Adherent to restriction: Yes Self-Management Plan Reviewed: Red Flags: DTP (Diuretic Titration Protocol): Describe DTP: Name of medication(s): Metolazone Dose: 2,5 mg Frequency: daily Used in past 2 weeks: Yes, 03/25 Risk assignment recommendation: Moderate risk findings (check [...] 90 WITH symptoms Additional risk selection justification: Reports he is feeling SOB. Refused to discuss his diet " Serge not going to waste my time. I eat the same thing everyday." Last took Metolazone 03/25. Takes in the PM at the same time as PM Torsemide. I have been instructedto take it before, at the same time and after so I just take it at the same time. T to NCM, she will see pt today for acute HV. PCs added. Overall risk and identified plan: High risk: Next day follow up call scheduled Route to RNCM (Registered Nurse Social Media Sr Strategy Manager) and Advance Practitioner Initiate DTP (Diuretic Titration Protocol) if applicable documented in this encounter Plan of Treatment Upcoming Encounters Date Type Department Care Team (Late st Contact Info) Description 03/29/2024 4:00 PM EDT Home Visit [facility], [facility] [address] [facility] [place] [address] Love Stevens RN [address] [facility] [place] [address] 03/30/2024 12:45 PM EDT Scheduled Telephone [facility], [facility] [address] [facility] [place] [address] Coordinator, [facility] 132 [facility] [place] [address] 03/31/2024 10:00 AM EDT Scheduled Telephone [facility], [facility] [address] [facility] [place] [address] Coordinator, [facility] 132 [facility] [place] [address] 04/15/2024 8:30 AM EDT Scheduled Telephone [facility], [facility] [address] [facility] [address] Mery Calderon, VIVIANAN [address] [facility] [place] [address] 05/09/2024 1:40 PM EST Office Visit Nephrology, [address] [place] [address] Shivani Magallon MD [address] [place], [place] [address] 05/30/2024 1:00 PM EST Telemedicine Cardiology [facility], [place] [address] [place] [facility] [place] [address] [place] [address], Pharmacist Cardiology [facility] [address] [place] [address] 06/13/2024 11:15 AM EST Hospital Encounter ENDO OSSC, Endoscopy Room [facility] [place] [phone] José Miguel Sifuentes MD [address] [facility] [place] [address] 06/13/2024 11:15 AM EST - 06/13/2024 11:45 AM EST Surgery ENDO OSSC, Endoscopy Room [facility] [address] [facility] [place] [phone] José Miguel Sfiuentes MD [address] [facility] [place] [address] COLONOSCOPY FLEXIBLE PROXIMAL DIAGNOSTIC 07/01/2024 2:20 PM EST Office Visit Family Practice [address] [place] [address] [address] [place] [address] Igor Mcconnell, 293 [place] [address] 08/08/2024 9:30 AM EST Nurse Only Ancillary [address] [place] [address] [place], Nurse [address] [place] [address] 10/27/2024 1:00 PM EDT Office Visit [facility] Disorders Ctr [facility] [address] [facility] [place] [phone] Lindsey Sheikh CRNP [address] [place] [address] Scheduled Procedures Name Priority Associated Diagnoses Date/Ti [...] ASSESSMENT COMPLETED IN PAST YEAR FOR COPD 03/16/2025 03/16/2024 Arreola's Esophagus Surveilance 06/16/2025 06/16/2022, 06/16/2022, 03/20/2022, [...] this encounter Medical Devices Implanted Type Area Mig Welder Device Identifier Shelf Expiration Date Model / Serial / Lot Lens Intraoc 21.0 - [id number] - [id number] Implanted:Qty: 1 on 01/22/2017 by Cheko Mcnamara MD at OR [facility] Right: Eye BAUSCH & LOMB 08/05/2021 [id number] / [id number] / [id number] Lens Intraoc 21.5 - [id number] - [id number] Implanted:Qty: 1 on 02/03/2017 by Cheko Mcnamara MD at OR [facility] Left: Eye BAUSCH & LOMB 09/02/2021 [id number] / [id number] / [id number] documented as of this encounter Advance Directives [...] and were consensually agreed upon. Care Teams Bpm Analyst Relationship Specialty Start Date End Date Igor Mcconnell DO [address] [place] [address] PCP - General Internal Medicine 02/12/24 documented as of this encounter
--- OUTSIDE RECORDS SUMMARY | 2024-08-26 02:42 | External Medical Summary | Summary of Care ---
Author Name Unknown Organization [facility] Address [address] [facility] [place] [address] Phone [phone] Care Team Providers Care Java Application Engineer Name Role Phone Igor Mcconnell DO Primary Care Provider [phone] Reason for Referral * Evaluate & Treat - Unlimited Visits (Within 10 days (routine)) - Authorized Specialty Diagnoses / Procedures Referred By Christin fernandez Referred To Contact Panel Gluer Diagnoses 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) Chronic obstructive pulmonary disease (HCC) Wilfredo Mulligan DO [address] [place] [address] Referral ID Status Reason Start Date Expiration Date Visits Requested Visits Authorized [id number] Authorized Specialty Services Required 03/30/2024 999 999 Question Answer Referral Priority Within 10 days (routine) Where should this appointment be scheduled? [facility] Current Health Device(s) Requested Pulse Ox, Scale Alarm Settings Standard per protocol Reason for Visit * Reason Onset Date Comments [facility]: Maintenance 03/30/2024 Encounter Details Date Type Department Care Team (Late st Contact Info) Description 03/30/2024 Telephone [facility], [facility] [address] [place] [address] Shruti Marquez LPN [address] [place] [address] [facility]: Maintenance Allergies Active Allergy [...] controlled type 2 diabetes mellitus with hyperglycemia ([facility]) USE TO TEST BLOOD GLUCOSE 3 TIMES A DAY. DX: E11.9 300 Strip 3 09/23/2023 Active Dplcx-4-mgfo Ethyl Esters 1 GM Oral Capsule (Lovaza) [...] hemoglobin A1c goal of less than 7.0% ([facility]) INJECT UNDER THE SKIN 100 UNITS TWICE DAILY OR DIRECTED 90 mL 3 01/18/2024 5 Active Additional Information Patient taking differently: 90 Units Subcutaneous BID(Non-Specified), Reported on 02/12/2024 Torsemide 20 MG Oral Tablet (Demadex)Indications :Chronic heart failure with preserved ejection fraction ([facility]),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 disease ([facility]) Take 4 Tablets by mouth [...] use of insulin ([facility]) Inject 2 mg under the [...] hemoglobin A1c goal of less than 7.0% ([facility]) INJECT UNDER THE SKIN 20 [...] rest Orthopnea Remote Patient Monitoring Vendor: [facility] Device(s): Connected Scale Self - [...] the Comments) Remote Patient Monitoring Vendor: [facility] Device(s): Connected Scale Self - [...] 08/18/2017 Last Assessment & Plan: 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 [place] History of tobacco use 08/18/2017 [place] on [...] yrs 01/04/2018,08/03/2017,07/03 Pneumococcal Conjugate Vacci ne, 20-valent ([id number]) 06/09/2022 Pneumococcal Polysaccharide PPV23 (Pneumovax) 03/06/2020 RSV [...] Encounter - Shruti Marquez LPN - 03/30/2024 3:47 PM EDT Current Health Enrollment Screening Contacted [...] of Enrollment Screening: Agreeable to Enroll: Device(s): Scale and Nonin Pulse Oximeter Enrollment Diagnosis: Congestive Heart Failure Method of Delivery: Vendor Supplied documented in this encounter Plan of Treatment Upcoming Encounters Date Type Department Care Team (Late st Contact Info) Description 03/31/2024 10:00 AM EDT Scheduled Telephone [facility], [facility] [address] [place] [address] Coordinator, [facility] 132 [place] [address] 04/15/2024 8:30 AM EDT Scheduled Telephone [facility], [facility] [address] [facility] [place] [address] Mery Calderon RDN [address] [place] [address] 05/09/2024 1:40 PM EST Office Visit Nephrology, [address] [place] [address] Shivani Magallon MD [address] [place] [address] 05/30/2024 1:00 PM EST Telemedicine Cardiology [facility], [place] [address] [place] [address] [place] [address], Pharmacist Cardiology [facility] [address] [place], [place] [address] 06/13/2024 11:15 AM EST Hospital Encounter ENDO O[facility], [facility]oscopy [facility] [place] [phone] José Miguel Sifuentes MD [facility] [place] [address] 06/13/2024 11:15 AM EST - 06/13/2024 11:45 AM EST Surgery ENDO [facility], Endoscopy [facility] [place] [phone] José Miguel Sifuentes MD [address] [facility] [place] [address] COLONOSCOPY FLEXIBLE PROXIMAL DIAGNOSTIC 07/01/2024 2:20 PM EST Office Visit Family Practice [address] [place] [address] 293 [place] [address] Igor Mcconnell, 293 [facility] [place] [address] 08/08/2024 9:30 AM EST Nurse Only Ancillary Lazaro Hyde[address] [place] [address] [place] Nurse [address] [place] [address] 10/27/2024 1:00 PM EDT Office Visit [facility] Disorders Ctr [facility] [address] [place] [phone] Lindsey Sheikh CRNP [address] [place] [address] Scheduled Procedures Name Priority Associated Diagnoses Date/Ti [...] stage 4 chronic kidney disease (HCC) Chronic obstructive pulmonary disease (HCC) Ordered: 03/30/2024 Health Maintenance Due Date Last Done Comments [...] this encounter Medical Devices Implanted Type Area Funeral Service Licensee Device Identifier Shelf Expiration Date Model / Serial / Lot Lens Intraoc 21.0 - [id number] - [id number] Implanted:Qty: 1 on 01/22/2017 by Cheko Mcnamara MD at [facility] Right: Eye BAUSCH & LOMB 08/05/2021 [id number] / [id number] / [id number] Lens Intraoc 21.5 - [id number] - [id number] Implanted:Qty: 1 on 02/03/2017 by Cheko Mcnamara MD at OR [facility] Left: Eye BAUSCH & LOMB 09/02/2021 [id number] / [id number] / [id number] documented as of this encounter Visit Diagnoses Diagnosis 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)- Primary Chronic obstructive pulmonary disease (HCC) Chronic airway obstruction, not elsewhere classified Special screening for malignant neoplasms, colon documented [...] and were consensually agreed upon. Care Teams Java Application Engineer Relationship Specialty Start Date End Date Igor Mcconnell DO [address] [place] [place] [address] PCP - General Internal Medicine 02/12/24 documented as of this encounter
--- OUTSIDE RECORDS SUMMARY | 2024-08-26 02:42 | External Medical Summary | Summary of Care ---
Author Name Unknown Organization [facility] Address [address] [facility] [place] [address] Phone [phone] Care Team Providers Care Account Executive Trainee Name Role Phone Igor Mcconnell DO Primary Care Provider [phone] Reason for Visit * Reason Onset Date Comments [facility]: Maintenance 03/30/2024 Encounter Details Date Type Department Care Team (Late st Contact Info) Description 03/30/2024 12:45 PM EDT Scheduled Telephone [facility], [facility] [address] [place] [address] Coordinator, [facility] [address] [place] [address] Allergies Active Allergy Reactions Criticality Noted Date [...] DX: E11.9 300 Strip 3 09/23/2023 Active Ahxyu-2-zrfj Ethyl Esters 1 GM Oral Capsule (Lovaza) [...] ([facility]) INJECT UNDER THE SKIN 100 UNITS TWICE DAILY OR DIRECTED 90 mL 3 01/18/2024 Active Additional Information Patient taking differently: 90 Units Subcutaneous BID(Non-Specified), Reported on 02/12/2024 Torsemide 20 MG Oral Tablet (Demadex)Indications :Chronic heart failure with preserved ejection fraction ([facility]),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 disease ([facility]) Take 4 Tablets by mouth [...] disease, with long-term current use of insulin ([facility]) Inject 2 mg under the [...] 38 UNITS WITH DINNER PLUS CORRECTION PER [facility] OR DIRECTED UP TO 120 UNITS PER DAY 120 mL 3 03/21/2024 Active DIURETIC TITRATION PLAN If no improvement on day 3, contact [facility] for possible home visit 1 [...] rest Orthopnea Remote Patient Monitoring Vendor: [facility] Device(s): Connected Scale Self [...] in the Comments) Remote Patient Monitoring Vendor: [facility] Device(s): Connected Scale Self - Management Plan [...] has been better controlled recently. Monitor using PayLeasestyle Cindy. NEMESIO (acute kidney injury) 04/30/2022 Severe [...] yrs 01/04/2018,08/03/2017,07/03 Pneumococcal Conjugate Vacci ne, 20-valent ([id number]) 06/09/2022 Pneumococcal Polysaccharide PPV23 (Pneumovax) 03/06/2020 RSV [...] Encounter - Shruti Marquez LPN - 03/30/2024 2:37 PM EDT Spoke with pt relayed message from pt verbalized understanding. He will have labs drawn Thursday, F/U call scheduled. FYI- I do not see labs ordered * Telephone Encounter - Josh Sullivan MD - 03/30/2024 2:04 PM EDT RN note from yesterday home visit not complete so I am uncertain of the assessment and plan TT w/ Love L Have pt repeat metolazone 2.5 mg po today Follow-up phone call tomorrow Labs scheduled for Fri Josh Sullivan MD, [facility], [facility], FAAFP Remote Medical Command ([facility]) [facility] Available on SCVNGR * Telephone Encounter - Shruti Marquez LPN [...] High risk: Route to RNCM (Registered Nurse Oil Field Worker) and Advance Practitioner Route to RMC (Remote Medical Coordinator) documented in this encounter Plan of Treatment Upcoming Encounters Date Type Department Care Team (Late st Contact Info) Description 03/31/2024 10:00 AM EDT Scheduled Telephone [facility] [place], [facility] [address] [place] [address] Coordinator, [facility] 132 [facility] [place] [address] 04/15/2024 8:30 AM EDT Scheduled Telephone [facility], [facility] [address] [facility] [place] [address] Kvng Merykolby Lang, RDN [address] [facility] [place] [address] 05/09/2024 1:40 PM EST Office Visit Nephrology, [facility] [address] [facility] [address] [address] MagallonShivani beth MD [address] [facility] [address] [address] 05/30/2024 1:00 PM EST Telemedicine Cardiology [facility], [place] [address] [place] [address] [place] [address], Pharmacist Cardiology [facility] [place] [address] [place], [place] [address] 06/13/2024 11:15 AM EST Hospital Encounter ENDO OSSC, Endoscopy Room [facility] 132 [facility] [place] [phone] José Miguel Sifuentes MD 132 [facility] [place] [address] 06/13/2024 11:15 AM EST - 06/13/2024 11:45 AM EST Surgery ENDO OSSC, Endoscopy Room [facility] [address] [place] [phone] José Miguel Sifuentes MD [facility] [place] [address] COLONOSCOPY FLEXIBLE PROXIMAL DIAGNOSTIC 07/01/2024 2:20 PM EST Office Visit Family Practice [address] [facility] [address] [place] [address] Igor Mcconnell, 293 [facility] [address] 08/08/2024 9:30 AM EST Nurse Only Ancillary Lazaro Hyde[address] [place] [address] [place], Nurse [address] [place] [address] 10/27/2024 1:00 PM EDT Office Visit Sleep Disorders [facility] [address] [place] [phone] Lindsey Sheikh CRNP [address] [place] [address] Scheduled Procedures Name Priority Associated Diagnoses Date/Ti [...] encounter Medical Devices Implanted Type Area Building Services Technician Device Identifier Shelf Expiration Date Model / Serial / Lot Lens Intraoc 21.0 - [id number] - [id number] Implanted:Qty: 1 on 01/22/2017 by Cheko Mcnamara MD at [facility] Right: Eye BAUSCH & LOMB 08/05/2021 [id number] / [id number] / [id number] Lens Intraoc 21.5 - [id number] - [id number] Implanted:Qty: 1 on 02/03/2017 by Cheko Mcnamara MD at OR [facility] Left: Eye BAUSCH & LOMB 09/02/2021 [id number] / [id number] / [id number] documented as of this encounter Advance Directives [...] and were consensually agreed upon. Care Teams Account Executive Trainee Relationship Specialty Start Date End Date Igor Mcconnell DO [address] [facility] [place] [address] PCP - General Internal Medicine 02/12/24 documented as of this encounter
--- OUTSIDE RECORDS SUMMARY | 2024-08-26 02:43 | External Medical Summary | Summary of Care ---
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) Gregg Mulligan DO [address] [facility] [address] Referral ID Status Reason Start Date Expiration Date Visits Requested Visits Authorized [id number] Authorized Specialty Services Required 03/24/2024 999 999 [...] (HCC) Mikal Covington MD [address] [place] [address] Referral ID Status Reason Start Date Expiration Date Visits Requested Visits Authorized [id number] Authorized Specialty Services Required 03/24/2024 09/20/2024 99 [...] have his medication therapy managed by the [facility] Medication Therapy Disease Management [facility] ([facility]) per established policies, procedures, and protocols. I also certify that this referral may serve as an initiation of service for the management of drug therapy in the above noted patient. [facility] providers will be responsible for scheduling patient visits, obtaining appropriate laboratory studies, and adjusting medication management therapy per patient's need, in addition to those roles spelled out in the clinic policy, procedures, and drug management protocols. I understand that the service provided by the [facility] Clinic is voluntary and have informed patient that they can refuse the service at their discretion. I am aware that the [facility] Clinic will provide me with a copy of the patient encounter via my MySQL InHourlyNerd. I authorize the [facility] Clinic to carry out these activities on my behalf. I consider this program to be a necessary part of the patient's medical care. Mikal Covington MD Reason for Visit * Reason Onset Date Comments [facility]: Maintenance 03/24/2024 Encounter Details Date Type Department Care Team (Late st Contact Info) Description 03/24/2024 Telephone [facility], [facility] [address] [facility] [place] [address] Minerva Marquez LPN [address] [facility] [place] [address] [facility]: Maintenance Allergies Active Allergy Reactions Criticality Noted Date Comments Metolazone Renal complications 11/10/2023 Note prior DTP with metolazone resulted in acute renal failure Other Allergy (See Comments) Rash Low 10/13/2022 1+ cocamidopropyl betaine Sglt2 Inhibitors Other (Please comment) High 09/04/2020 Genital infection Sulfa Antibiotics Rash 10/15/2016 documented as of this encounter (statuses as of 03/24/2024) Medications Medication Sig Dispensed Refills Start Date [...] DX: E11.9 300 Strip 3 09/23/2023 Active Elzlq-3-tsha Ethyl Esters 1 GM Oral Capsule (Lovaza) [...] [facility]) INJECT UNDER THE SKIN 100 UNITS TWICE DAILY OR DIRECTED 90 mL 3 01/18/2024 5 Active Additional Information Patient taking differently: 90 Units Subcutaneous BID(Non-Specified), Reported on 02/12/2024 Torsemide 20 MG Oral Tablet (Demadex)Indications :Chronic heart failure with preserved ejection fraction ([facility]),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 disease ([facility]) Take 4 Tablets by mouth [...] as of this encounter (statuses as of 03/24/2024) Active Problems Patient Care Coordination No te Formatting of this note migh t be different from the original. Heart Failure Self-Management and Exacerbation Plan "RED FLAG" HF Symptoms: Leg Swelling Abdominal Bloating Increased dyspnea on exertion Increased shortness of breath at rest Orthopnea Remote Patient Monitoring Vendor: [facility] [...] in the Comments) Remote Patient Monitoring Vendor: Palm Device(s): Connected Scale Self - Management Plan [...] as of this encounter (statuses as of 03/24/2024) Resolved Problems Problem Noted Date Diagnosed Date [...] as of this encounter (statuses as of 03/24/2024) Immunizations Name Administration Dates Next Due COVID-19 mRNA, LNP-s, No Pre serve, 2-Dose Series (Moderna) 12/10/2020,11/12/2020 Hepatitis B, 20+ yrs 01/04/2018,08/03/2017,07/03 Pneumococcal Conjugate Vacci ne, 20-valent ([id number]) 06/09/2022 Pneumococcal Polysaccharide PPV23 (Pneumovax) 03/06/2020 RSV [...] Miscellaneous Notes * Telephone Encounter - Minerva Marqeuz LPN - 03/24/2024 5:08 PM EDT Current [...] order for pulse ox. Pt will call [facility] with any concerns. * Addendum Note - [...] of cc365 MTM and CC365 FYI Neph museum tour guide pls ensure f/u per last neph note * Addendum Note - Gregg Mulligan DO - 03/24/2024 11:09 AM EDTAddended by: GREGG MULLIGAN on: 03/24/2024 11:09 AM Modules accepted: Orders * Telephone Encounter - Gregg Mulligan DO - 03/24/2024 11:05 AM EDT [facility] Remote Medical Command QuickNote Recommendations: Agree with Metolazone Was previously or may be currently on [facility] RPM Program - I would like to [...] Dr Verduzco since you follow for the [facility] HTN RPM work - I think it would be best to also have his scale and pulse ox be within the current health platform so all of his info is in [employer] and he's only using 1 vendor JOSE ALFREDO to Tony's Care Team Telephonic GRANITE SETTER Pool please work on the following: see above Gregg Mulligan DO Remote Medical Command - [facility] 03/24/2024 Scheduled appointments in the next 60 days: Future Appointments-next 60 days Date/Time Provider Specialty Dept Phone 03/25/2024 12:15 PM Coordinator, Morales Aldana [facility] [phone] 04/15/2024 8:30 AM Mery Calderon RDN [facility] [phone] 07/01/2024 2:20 PM (Arrive by 2:05 PM) Igor Mcconnell DO Family Medicine [phone] 07/08/2024 2:20 PM (Arrive by 2:05 PM) Mikal Covington MD Nephrology [phone] 08/08/2024 9:30 AM Nurse [facility] [phone] 10/27/2024 1:00 PM (Arrive by 12:45 PM) Lindsey Sheikh CRNP Sleep Disorders [phone] * Telephone Encounter - Minerva MarquezROSCOE - [...] wt. F/U call scheduled. He will call [facility] with any concerns. Overall risk and identified plan: High risk: Next day follow up call scheduled Route to RNCM (Registered Nurse Crosstie Inspector) and Advance Practitioner Route to RMC (Remote Medical Coordinator) Initiate DTP (Diuretic Titration Protocol) if applicable documented in this encounter Plan of Treatment Upcoming Encounters Date Type Department Care Team (Late st Contact Info) Description 03/25/2024 12:15 PM EDT Scheduled Telephone [facility], [facility] [address] [place] [address] Coordinator, [facility] [address] [place] [address] 04/15/2024 8:30 AM EDT Scheduled Telephone [facility], [facility] [address] [facility] [place] [address] Mery Calderon RDN 1000 [facility] [place] [address] 05/09/2024 1:40 PM EST Office Visit Nephrology, [facility] 200 [facility] [place] [address] Mikal Covington MD 200 [facility] [place] [address] 05/30/2024 1:00 PM EST Telemedicine Cardiology [facility] [place] [address] [place] [address] [place] [address], Pharmacist Cardiology [facility] [address] [place] [address] 06/13/2024 11:15 AM EST Hospital Encounter ENDO OSSC, Endoscopy Room [facility] 132 [facility] [place] [phone] José Miguel Sifuentes MD [address] [facility] [place] [address] 06/13/2024 11:15 AM EST - 06/13/2024 11:45 AM EST Surgery ENDO OSSC, Endoscopy Room [facility] 132 [facility] [place] [phone] José Miguel Sifuentes MD 132 [place] [address] COLONOSCOPY FLEXIBLE PROXIMAL DIAGNOSTIC 07/01/2024 2:20 PM EST Office Visit Family Practice [address] [place] [address], [place] 293 [place] [address] Igor Mcconnell DO 293 [facility] [place] [address] 08/08/2024 9:30 AM EST Nurse Only Ancillary [address] [place] [address] [place], Nurse [address] [place] [address] 10/27/2024 1:00 PM EDT Office Visit Sleep Disorders Ctr [facility] [address] [place] [phone] Lindsey Sheikh CRNP [address] [place] [address] Scheduled Procedures Name Priority Associated Diagnoses Date/Ti [...] this encounter Medical Devices Implanted Type Area Launch Engineer Device Identifier Shelf Expiration Date Model / Serial / Lot Lens Intraoc 21.0 - [id number] - [id number] Implanted:Qty: 1 on 01/22/2017 by Cheko Mcnamara MD at OR [facility] Right: Eye BAUSCH [employer] LOMB 08/05/2021 [id number] / [id number] / [id number] Lens Intraoc 21.5 - [id number] - [id number] Implanted:Qty: 1 on 02/03/2017 by Cheko Mcnamara MD at OR [facility] Left: Eye BAUSCH [employer] LOMB 09/02/2021 [id number] / [id number] / [id number] documented as of this encounter Visit Diagnoses [...] and were consensually agreed upon. Care Teams Cotton Ball Machine Tender Relationship Specialty Start Date End Date Igor Mcconnell DO [address] [place] [address] PCP - General Internal Medicine 02/12/24 documented as of this encounter
--- OUTSIDE RECORDS SUMMARY | 2024-08-26 02:43 | External Medical Summary | Summary of Care ---
Author Name Unknown Organization [facility] Address [address] [facility] [place] [address] Phone [phone] Care Team Providers Care Corporate Receptionist Name Role Phone EnedinaIgor DO Primary Care Provider [phone] Encounter Details Date Type Department Care Team (Late st Contact Info) Description 03/24/2024 Population Health External Data Unspecified Department Allergies Active Allergy Reactions Criticality Noted Date Comments Metolazone Renal complications 11/10/2023 Note prior DTP with metolazone resulted in acute renal failure Other Allergy (See Comments) Rash Low 10/13/2022 1+ cocamidopropyl betaine Sglt2 Inhibitors Other (Please comment) High 09/04/2020 Genital infection Sulfa Antibiotics Rash 10/15/2016 documented as of this encounter (statuses as of 03/28/2024) Medications Medication Sig Dispensed Refills Start Date [...] of less than 7.0% ([facility]) Use as directed every 14 days . [...] DX: E11.9 300 Strip 3 09/23/2023 Active Xvxsb-2-wtcr Ethyl Esters 1 GM Oral Capsule (Lovaza) [...] current use of insulin ([facility]) Inject 2 mg [...] of less than 7.0% ([facility]) INJECT UNDER THE SKIN 20 UNITS AT BREAKFAST, 26 UNITS AT LUNCH, 38 UNITS WITH DINNER PLUS CORRECTION PER [facility] OR DIRECTED UP TO 120 UNITS PER DAY 120 mL 3 03/21/2024 Active DIURETIC TITRATION PLAN If no improvement on day 3, contact [facility] for possible home visit 1 [...] as of this encounter (statuses as of 03/28/2024) Active Problems Patient Care Coordination No te Formatting of this note migh t be different from the original. Heart Failure Self-Management and Exacerbation Plan "RED FLAG" HF Symptoms: Leg Swelling Abdominal Bloating Increased dyspnea on exertion Increased shortness of breath at rest Orthopnea Remote Patient Monitoring Vendor: [facility] Device(s): Connected Scale Self - Management Plan [...] in the Comments) Remote Patient Monitoring Vendor: [employer] Device(s): Connected Scale Self - Management Plan [...] Continues on lovaza 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 allena History of [...] as of this encounter (statuses as of 03/28/2024) Resolved Problems Problem Noted Date Diagnosed Date [...] as of this encounter (statuses as of 03/28/2024) Immunizations Name Administration Dates Next Due COVID-19 mRNA, LNP-s, No Pre serve, 2-Dose Series (Moderna) 12/10/2020,11/12/2020 Hepatitis B, 20+ yrs 01/04/2018,08/03/2017,07/03 Pneumococcal Conjugate Vacci ne, 20-valent ([id number]) 06/09/2022 Pneumococcal Polysaccharide PPV23 (Pneumovax) 03/06/2020 RSV [...] AM EDT Scheduled Telephone [facility], [facility] [address] [facility] [place] [address] Mery Calderon RDN [address] [facility] [place] [address] 05/09/2024 1:40 PM EST Office Visit Nephrology, Susan Palacios [address] [place] [address] Shivani Magallon MD [address] [place] [address] 05/30/2024 1:00 PM EST Telemedicine Cardiology [facility] [place] [address] [place] [address] [place] [address], Pharmacist Cardiology [facility] [address] [facility] [address] 06/13/2024 11:15 AM EST Hospital Encounter ENDO OSS, Endoscopy Room [facility] [address] [place] [phone] José Miguel Sifuentes MD [address] [place] [address] 06/13/2024 11:15 AM EST - 06/13/2024 11:45 AM EST Surgery ENDO OSS, Endoscopy Room [facility] [place] [phone] José Miguel Sifuentes MD [address] [place] [address] COLONOSCOPY FLEXIBLE PROXIMAL DIAGNOSTIC 07/01/2024 2:20 PM EST Office Visit Family Practice [address] [place] [address] 293 [facility] [place] [address] Igor Mcconnell, 293 [place] [address] 08/08/2024 9:30 AM EST Nurse Only Ancillary [address] [place] [address] [place], Nurse [address] [place] [address] 10/27/2024 1:00 PM EDT Office Visit Sleep Disorders Ctr [facility] 132 [facility] [place] [phone] Lindsey Sheikh CRNP [address] [facility] [place] [address] Scheduled Procedures Name Priority Associated Diagnoses Date/Ti [...] this encounter Medical Devices Implanted Type Area Neon Glass Bender Device Identifier Shelf Expiration Date Model / Serial / Lot Lens Intraoc 21.0 - [id number] - [id number] Implanted:Qty: 1 on 01/22/2017 by Cheko Mcnamara MD at OR [facility] Right: Eye BAUSCH [employer] LOMB 08/05/2021 [id number] / [id number] / [id number] Lens Intraoc 21.5 - [id number] - [id number] Implanted:Qty: 1 on 02/03/2017 by Cheko Mcnamara MD at OR [facility] Left: Eye BAUSCH & LOMB 09/02/2021 [id number] / [id number] / [id number] documented as of this encounter Advance Directives [...] were consensually agreed upon. Care Teams Corporate Receptionist Relationship Specialty Start Date End Date Igor Mcconnell DO [address] [place] [address] PCP - General Internal Medicine 02/12/24 documented as of this encounter
--- OUTSIDE RECORDS SUMMARY | 2024-08-26 02:43 | External Medical Summary | Summary of Care ---
Author Name Unknown Organization [facility] Address [address] [facility] [place] [address] Phone [phone] Care Team Providers Care Wreath And Garland Maker Hand Name Role Phone Igor Mcconnell DO Primary Care Provider Reason for Visit * Reason Onset Date Comments [facility]: Maintenance 03/27/2024 Encounter Details Date Type Department Care Team (Late st Contact Info) Description 03/27/2024 10:45 AM EDT Scheduled Telephone [facility], [facility] 132 [facility] [place] [address] [facility], Nurse [facility] 132 [facility] [place] [address] Allergies Active Allergy Reactions Criticality Noted Date Comments Metolazone Renal complications 11/10/2023 Note prior DTP with metolazone resulted in acute renal failure Other Allergy (See Comments) Rash Low 10/13/2022 1+ cocamidopropyl betaine Sglt2 Inhibitors Other (Please comment) High 09/04/2020 Genital infection Sulfa Antibiotics Rash 10/15/2016 documented as of this encounter (statuses as of 03/27/2024) Medications Medication Sig Dispensed Refills Start Date [...] DX: E11.9 300 Strip 3 09/23/2023 Active Pnkwt-3-ntoa Ethyl Esters 1 GM Oral Capsule (Lovaza) [...] goal of less than 7.0% ([facility]) INJECT UNDER THE SKIN 100 UNITS TWICE DAILY OR DIRECTED 90 mL 3 01/18/2024 Active Additional Information Patient taking differently: 90 Units Subcutaneous BID(Non-Specified), Reported on 02/12/2024 Torsemide 20 MG Oral Tablet (Demadex)Indications :Chronic heart failure with preserved ejection fraction ([facility]),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 disease ([facility]) Take 4 Tablets by mouth in the [...] long-term current use of insulin ([facility]) Inject 2 mg under the skin once [...] goal of less than 7.0% ([facility]) INJECT UNDER THE SKIN 20 UNITS AT BREAKFAST, 26 UNITS AT LUNCH, 38 UNITS WITH DINNER PLUS CORRECTION PER [facility] OR DIRECTED UP TO 120 UNITS PER DAY 120 mL 3 03/21/2024 Active DIURETIC TITRATION PLAN If no improvement on day 3, contact [facility] for possible home visit 1 Each [...] as of this encounter (statuses as of 03/27/2024) Active Problems Patient Care Coordination No te [...] in the Comments) Remote Patient Monitoring Vendor: [employer] Device(s): Connected Scale Self - Management Plan [...] as of this encounter (statuses as of 03/27/2024) Resolved Problems Problem Noted Date Diagnosed Date [...] has been better controlled recently. Monitor using Blueseedstyle Cindy. NEMESIO (acute kidney injury) 04/30/2022 Severe [...] as of this encounter (statuses as of 03/27/2024) Immunizations Name Administration Dates Next Due COVID-19 mRNA, LNP-s, No Pre serve, 2-Dose Series (Moderna) 12/10/2020,11/12/2020 Hepatitis B, 20+ yrs 01/04/2018,08/03/2017,07/03 Pneumococcal Conjugate Vacci ne, 20-valent (Mavfezo28) 06/09/2022 Pneumococcal Polysaccharide PPV23 (Pneumovax) 03/06/2020 RSV [...] No 08/05/2023 Does the household have a holy cross hospitallar source of income? (Household - for [...] Telephone Encounter - Leanne Le LPN - 03/27/2024 1:04 PM EDT [facility] Telephonic Nurse Follow-Up Call [facility] Subprogram: Focused Care Management (3-9 months) Follow Up Call Type: Routine follow up call / Status Check Acute issue requiring follow-up call: Remote Patient Monitoring Trigger Objective: 03/16/2024 2:50 PM 03/11/2024 8:19 AM 03/03/2024 3:04 PM 03/01/2024 2:23 PM 02/29/2024 2:43 PM VITALS ACROSS ENCOUNTERS BP 124/60 122/68 130/54 120/60 144/62 Pulse 72 62 67 70 70 Weight 124.2 kg 130.6 kg 132.2 kg 130.6 kg BMI 39.05 BMI 37.15 kg/m2 39.06 kg/m2 39.53 kg/m2 39.06 kg/m2 Remote Patient Monitoring: [facility] Scale: see below Oxygen Needs: NO supplemental oxygen needs identified DME Needs: NO DME needs identified Medications: Current DTP: Add metolazone (Zaroxolyn) 2.5-5mg for 1 days. If using a potassium supplement, doublethe dose of the supplement will be given on the day of and on the day after the metolazone Subjective: Condition Status: [facility] Current Concerns: Call placed to patient for [facility] weight follow up. Left message on mobile number for return call to [facility] Disposition: Routed to [facility] and/or [facility] [place] Care Team for further advice Future Visits Scheduled: Future Appointments-next 60 days Date/Time Provider Specialty Dept Phone 04/15/2024 8:30 AM Mery Calderon RDN [facility] at Home [phone] 05/09/2024 1:40 PM (Arrive by 1:25 PM) Shivani Magallon MD Nephrology [phone] 05/30/2024 1:00 PM Gael Zuniga Cardiology H[facility] Cardiology Arrive at: Patient's Home [phone] 07/01/2024 2:20 PM (Arrive by 2:05 PM) Igor Mcconnell DO Family Medicine [phone] 08/08/2024 9:30 AM Nurse [facility] [phone] 10/27/2024 1:00 PM (Arrive by 12:45 PM) Lindsey Sheikh CRNP Sleep Disorders [phone] Leanne Le LPN documented in this encounter Plan of Treatment Upcoming Encounters Date Type Department Care Team (Late st Contact Info) Description 04/15/2024 8:30 AM EDT Scheduled Telephone [facility], [place] [address] [facility] [place] [address] Mery Calderon, RDN [address] [facility] [place] [address] 05/09/2024 1:40 PM EST Office Visit Nephrology, Susan Palacios 200 [facility] [place] [address] Shivani Magallon MD 200 [facility] [place] [address] 05/30/2024 1:00 PM EST [facility]medicine [facility] [address] [place] [address] [place] [address], Pharmacist Cardiology [facility] [address] [place] [address] 06/13/2024 11:15 AM EST Hospital Encounter ENDO OSSC, Endoscopy Room [facility] [place] [phone] José Miguel Sifuentes MD [facility] [place] [address] 06/13/2024 11:15 AM EST - 06/13/2024 11:45 AM EST Surgery ENDO OSSC, Endoscopy Room [facility] [address] [place] [phone] José Miguel Sifuentes MD [address] [place] [address] COLONOSCOPY FLEXIBLE PROXIMAL DIAGNOSTIC 07/01/2024 2:20 PM EST Office Visit Family Practice [address] [place] [address] 293 [place] [address] Igor Mcconnell, 293 [place] [place] [address] 08/08/2024 9:30 AM EST Nurse Only Ancillary Lazaro Hyde [address] [place] [address] [place], Nurse [address] [place] [address] 10/27/2024 1:00 PM EDT Office Visit Sleep Disorders Ctr [facility] [address] [place] [phone] Lindsey Sheikh CRNP [address] [place] [address] Scheduled Procedures Name Priority Associated Diagnoses Date/Ti [...] this encounter Medical Devices Implanted Type Area Medical Territory Manager Device Identifier Shelf Expiration Date Model / Serial / Lot Lens Intraoc 21.0 - [id number] - [id number] Implanted:Qty: 1 on 01/22/2017 by Cheko Mcnamara MD at [facility] Right: Eye BAUSCH [employer] LOMB 08/05/2021 [id number] / [id number] / [id number] Lens Intraoc 21.5 - [id number] - [id number] Implanted:Qty: 1 on 02/03/2017 by Cheko Mcnamara MD at OR [facility] Left: Eye BAUSCH & LOMB 09/02/2021 [id number] / [id number] / [id number] documented as of this encounter Advance Directives [...] and were consensually agreed upon. Care Teams Wreath And Garland Maker Hand Relationship Specialty Start Date End Date Igor Mcconnell DO 293 [facility] [place] [address] PCP - General Internal Medicine 02/12/24 documented as of this encounter
--- OUTSIDE RECORDS SUMMARY | 2024-08-26 02:43 | External Medical Summary | Summary of Care ---
Author Name Unknown Organization [facility] Address [address] [facility] [place] [address] Phone [phone] Care Team Providers Care Hospital Secretary Name Role Phone Igor Mcconnell DO Primary Care Provider [phone] Reason for Visit * Reason Onset Date Comments [facility]: Acute 03/26/2024 Encounter Details Date Type Department Care Team (Late st Contact Info) Description 03/26/2024 1:00 PM EDT Scheduled Telephone [facility] [place], [facility] [address] [place] [address] [facility], Nurse [facility] [address] [place] [address] Allergies Active Allergy Reactions Criticality Noted Date Comments Metolazone Renal complications 11/10/2023 Note prior DTP with metolazone resulted in acute renal failure Other Allergy (See Comments) Rash Low 10/13/2022 1+ cocamidopropyl betaine Sglt2 Inhibitors Other (Please comment) High 09/04/2020 Genital infection Sulfa Antibiotics Rash 10/15/2016 documented as of this encounter (statuses as of 03/26/2024) Medications Medication Sig Dispensed Refills Start Date [...] DX: E11.9 300 Strip 3 09/23/2023 Active Mpjft-8-suqk Ethyl Esters 1 GM Oral Capsule (Lovaza) [...] ([facility]) INJECT UNDER THE SKIN 20 UNITS AT BREAKFAST, 26 UNITS AT LUNCH, 38 UNITS WITH DINNER PLUS CORRECTION PER [facility] OR DIRECTED UP TO 120 UNITS PER DAY 120 mL 3 03/21/2024 Active DIURETIC TITRATION PLAN If no improvement on day 3, contact [facility] for possible home visit 1 Each [...] as of this encounter (statuses as of 03/26/2024) Active Problems Patient Care Coordination No te [...] in the Comments) Remote Patient Monitoring Vendor: [employer] Device(s): Connected Scale Self - Management Plan [...] as of this encounter (statuses as of 03/26/2024) Resolved Problems Problem Noted Date Diagnosed Date [...] has been better controlled recently. Monitor using eGamesstyle Cindy. NEMESIO (acute kidney injury) 04/30/2022 Severe [...] as of this encounter (statuses as of 03/26/2024) Immunizations Name Administration Dates Next Due COVID-19 mRNA, LNP-s, No Pre serve, 2-Dose Series (Moderna) 12/10/2020,11/12/2020 Hepatitis B, 20+ yrs 01/04/2018,08/03/2017,07/03 Pneumococcal Conjugate Vacci ne, 20-valent ([id number]) 06/09/2022 Pneumococcal Polysaccharide PPV23 (Pneumovax) 03/06/2020 RSV [...] No 08/05/2023 Does the household have a [facility] source of income? (Household - [...] encounter Miscellaneous Notes * Telephone Encounter - Mason Zaidi RN - 03/26/2024 3:20 PM EDT Images from the original note were not included. [facility] Telephonic Nurse Follow-Up Call [facility] Subprogram: Focused Care Management (3-9 months) Follow Up Call Type: Weekend Call Acute issue requiring follow-up call: Heart Failure Exacerbation Objective: 03/16/2024 2:50 PM 03/11/2024 8:19 AM 03/03/2024 3:04 PM 03/01/2024 2:23 PM 02/29/2024 2:43 PM VITALS ACROSS ENCOUNTERS BP 124/60 122/68 130/54 120/60 144/62 Pulse 72 62 67 70 70 Weight 124.2 kg 130.6 kg 132.2 kg 130.6 kg BMI 39.05 BMI 37.15 kg/m2 39.06 kg/m2 39.53 kg/m2 39.06 kg/m2 Remote Patient Monitoring: [facility] Scale: see below Oxygen Needs: NO supplemental oxygen needs identified DME Needs: NO DME needs identified Medications: No medication or dose adjustments made during acute episode Subjective: Condition Status: Improvement in symptoms but not at baseline Current Concerns: Pt took metolazone today as directed, for day 2 of DTP Pt reports he is happy with his weight of 272 lb although reports he is "out" currently and has legs dependent and can tell that they are beginning to swell Encouraged to elevate BLE as soon as able Pt reports overall symptoms have improved from Pt states "I know tomorrow my weight will probably be up again and I'll be back to where I was" Pt would like to take more metolazone but is agreeable to wait to see how he feels and what weight is tomorrow due to: Pt weight has been consistent and stable in 271-272 range recently per [facility] Pt has hx of acute renal failure after metolazone DTP Pt last BMP 03/11: BUN 54, Cr 2.3, GFR 31 F/u call scheduled for tomorrow, pt aware of this Disposition: Weekend call scheduled Future Visits Scheduled: Future Appointments-next 60 days Date/Time Provider Specialty Dept Phone 04/15/2024 8:30 AM Mery Calderon RDN [facility] [phone] 05/09/2024 1:40 PM (Arrive by 1:25 PM) Shivani Magallon MD Nephrology [phone] 05/30/2024 1:00 PM [place], Pharmacist Cardiology [facility] Arrive at: Patient's Home [phone] 07/01/2024 2:20 PM (Arrive by 2:05 PM) Igor Mcconnell, Family Medicine [phone] 08/08/2024 9:30 AM [place], Nurse Annual Wellness Ancillary [phone] 10/27/2024 1:00 PM (Arrive by 12:45 PM) Lindsey Sheikh CRNP Sleep Disorders [phone] Mason Zaidi, RN documented in this encounter Plan of Treatment Upcoming Encounters Date Type Department Care Team (Late st Contact Info) Description 03/27/2024 10:45 AM EDT Scheduled Telephone [facility], [facility] 132 [facility] [place] [address] [facility], Nurse [facility] 132 [facility] [place] [address] 04/15/2024 8:30 AM EDT Scheduled Telephone [facility], [facility] [address] [place] [facility] [place] [address] Mery Calderon, RDN [address] [place] [facility] [place] [address] 05/09/2024 1:40 PM EST Office Visit Nephrology, [facility] [address] [place] [address] Shivani Magallon MD [address] [place] [address] 05/30/2024 1:00 PM EST Telemedicine Cardiology [facility] [place] [address] [place] [address] [facility], Pharmacist Cardiology [facility] [address] [place], [place] [id number] 06/13/2024 11:15 AM EST Hospital Encounter ENDO [facility], Endoscopy Room [facility] 132 [facility] [place] [phone] José Miguel Sifuentes MD [address] [place] [address] 06/13/2024 11:15 AM EST - 06/13/2024 11:45 AM EST Surgery ENDO [facility], Endoscopy Room [facility] [address] [place] [phone] José Miguel Sifuentes MD 132 [facility] [place] [address] COLONOSCOPY FLEXIBLE PROXIMAL DIAGNOSTIC 07/01/2024 2:20 PM EST Office Visit Family [address] 293 [place] [phone] Igor Mcconnell, 293 [place] [address] 08/08/2024 9:30 AM EST Nurse Only Ancillary [address] [place] [address] [place], Nurse [address] [place] [address] 10/27/2024 1:00 PM EDT Office Visit Sleep Disorders Ctr [facility] [address] [place] [phone] Lindsey Sheikh CRNP 132 [facility] [place] [address] Scheduled Procedures Name Priority Associated Diagnoses Date/Ti [...] this encounter Medical Devices Implanted Type Area Market Basket Maker Device Identifier Shelf Expiration Date Model / Serial / Lot Lens Intraoc 21.0 - [id number] - [id number] Implanted:Qty: 1 on 01/22/2017 by Cheko Mcnamara MD at OR [facility] Right: Eye BAUSCH & LOMB 08/05/2021 [id number] / [id number] / [id number] Lens Intraoc 21.5 - [id number] - [id number] Implanted:Qty: 1 on 02/03/2017 by Cheko Mcnamara MD at OR [facility] Left: Eye BAUSCH & LOMB 09/02/2021 [id number] / [id number] / [id number] documented as of this encounter Advance Directives [...] and were consensually agreed upon. Care Teams Hospital Secretary Relationship Specialty Start Date End Date Igor Mcconnell DO 293 [place] [address] PCP - General Internal Medicine 02/12/24 documented as of this encounter
--- OUTSIDE RECORDS SUMMARY | 2024-08-26 02:43 | External Medical Summary | Summary of Care ---
Author Name Unknown Organization [facility] Address [address] [place] [address] Phone [phone] Care Team Providers Care Amortization Clerk Name Role Phone Igor Mcconnell DO Primary Care Provider [phone] Reason for Visit * Reason Onset Date Comments Home Monitoring Orders Only 03/25/2024 Encounter Details Date Type Department Care Team (Late st Contact Info) Description 03/25/2024 Home Monitoring Family Practice [address], [place] [address] [place] [phone] Igor Mcconnell DO 293 [place] [address] Hypertensive heart and kidney disease with chronic [...] as of this encounter (statuses as of 03/25/2024) Medications Medication Sig Dispensed Refills Start Date [...] DX: E11.9 300 Strip 3 09/23/2023 Active Jjwgj-4-epmy Ethyl Esters 1 GM Oral Capsule (Lovaza) [...] 38 UNITS WITH DINNER PLUS CORRECTION PER [facility] OR DIRECTED UP TO 120 UNITS PER DAY 120 mL 3 03/21/2024 Active DIURETIC TITRATION PLAN If no improvement on day 3, contact [facility] for possible home visit 1 [...] as of this encounter (statuses as of 03/25/2024) Active Problems Patient Care Coordination No te Formatting of this note migh t be different from the original. Heart Failure Self-Management and Exacerbation Plan "RED FLAG" HF Symptoms: Leg Swelling Abdominal Bloating Increased dyspnea on exertion Increased shortness of breath at rest Orthopnea Remote Patient Monitoring Vendor: [facility] Device(s): Connected Scale Self - Management [...] in the Comments) Remote Patient Monitoring Vendor: [facility] Device(s): Connected Scale Self - Management [...] Continues on lovaza 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 [employer] History of tobacco use 08/18/2017 [place]O [...] as of this encounter (statuses as of 03/25/2024) Resolved Problems Problem Noted Date Diagnosed Date [...] and RDN Other specified peripheral vascular diseases 01/02/12/2024 Sacroiliitis 09/02/2022 10/20/2023 Type 2 diabetes mellitus [...] as of this encounter (statuses as of 03/25/2024) Immunizations Name Administration Dates Next Due COVID-19 mRNA, LNP-s, No Pre serve, 2-Dose Series (Moderna) 12/10/2020,11/12/2020 Hepatitis B, 20+ yrs 01/04/2018,08/03/2017,07/03 Pneumococcal Conjugate Vacci ne, 20-valent ([id number]) 06/09/2022 Pneumococcal Polysaccharide PPV23 (Pneumovax) 03/06/2020 RSV [...] as of this encounter Progress Notes * Shanna Keen OSA - 03/25/2024 3:38 PM EDT Patient has been successfully enrolled to the [id number] program and will be provided with the Current Health Wearable device to facilitate their participation in remote monitoring: O2 Only Patient has been oriented to remote patient monitoring by their Assistant Production Editor. The pillowcase maker has also provided the patient with instruction and education regarding the program. Current health to assist with initial device set-up. Delivery Method: Vendor supplied Patient understands that this monitoring should not be used as a replacement for emergency and/or urgent care. If patient experiences any urgent symptoms, they are aware to call their it support manager for additional instructions. In emergency situations, they will either call 911 or report directly to the ED for further evaluation. documented in this encounter Plan of Treatment Upcoming Encounters Date Type Department Care Team (Late st Contact Info) Description 03/26/2024 1:00 PM EDT Scheduled Telephone [facility], [facility] [address] [place] [address] [facility], Nurse [facility] [address] [place] [address] 04/15/2024 8:30 AM EDT Scheduled Telephone [facility], [facility] [address] [place] [address] Mery Calderon RDN [address] [place] [address] 05/09/2024 1:40 PM EST Office Visit Nephrology, [facility] [address] [place] [address] Shivani Magallon MD 200 [place] [address] 05/30/2024 1:00 PM EST Telemedicine Cardiology [facility] [place] [address] [place] [address] [facility], Pharmacist Cardiology [facility] [address] [place] [address] 06/13/2024 11:15 AM EST Hospital Encounter ENDO [facility], Endoscopy Room [facility] 132 [facility] [place] [phone] José Miguel Sifuentes MD [address] [place] [address] 06/13/2024 11:15 AM EST - 06/13/2024 11:45 AM EST Surgery ENDO [facility], Endoscopy Room [facility] [address] [place] [phone] José Miguel Sifuentes MD 132 [facility] [place] [address] COLONOSCOPY FLEXIBLE PROXIMAL DIAGNOSTIC 07/01/2024 2:20 PM EST Office Visit Family [address] 293 [place] [phone] Igor Mcconnell, 293 [place] [address] 08/08/2024 9:30 AM EST Nurse Only Ancillary [address] [place] [address] [employer], Nurse [address] [place] [address] 10/27/2024 1:00 PM EDT Office Visit Sleep Disorders Ctr [facility] 132 [facility] [place] [phone] Lindsey Sheikh CRNP 132 [facility] [place] [address] Scheduled Procedures Name Priority Associated Diagnoses Date/Ti [...] this encounter Medical Devices Implanted Type Area Lab Rn Device Identifier Shelf Expiration Date Model / Serial / Lot Lens Intraoc 21.0 - [id number] - [id number] Implanted:Qty: 1 on 01/22/2017 by Cheko Mcnamara MD at OR [facility] Right: Eye BAUSCH & LOMB 08/05/2021 [id number] / [id number] / [id number] Lens Intraoc 21.5 - [id number] - [id number] Implanted:Qty: 1 on 02/03/2017 by Cheko Mcnamara MD at OR [facility] Left: Eye BAUSCH & LOMB 09/02/2021 [id number] / [id number] / [id number] documented as of this encounter Visit Diagnoses [...] and were consensually agreed upon. Care Teams Amortization Clerk Relationship Specialty Start Date End Date Igor Mcconnell DO 293 [place] [address] PCP - General Internal Medicine 02/12/24 documented as of this encounter
--- OUTSIDE RECORDS SUMMARY | 2024-08-26 02:43 | External Medical Summary | Summary of Care ---
Author Name Unknown Organization [facility] Address [address] [facility] [place] [address] Phone [phone] Care Team Providers Care Veterinary Bacteriologist Name Role Phone Igor Mcconnell DO Primary Care Provider [phone] Reason for Visit * Reason Onset Date Comments [facility]: Maintenance 03/29/2024 Encounter Details Date Type Department Care Team (Late st Contact Info) Description 03/29/2024 Telephone [facility], [facility] [address] [facility] [place] [address] Janeth Kelley, [facility] [address] [facility] [address] [facility]: Maintenance Allergies Active Allergy [...] DX: E11.9 300 Strip 3 09/23/2023 Active Vloru-8-lgrn Ethyl Esters 1 GM Oral Capsule (Lovaza) [...] hemoglobin A1c goal of less than 7.0% ([facility]) INJECT UNDER THE SKIN 100 UNITS TWICE DAILY OR DIRECTED 90 mL 3 01/18/2024 Active Additional Information Patient taking differently: 90 Units Subcutaneous BID(Non-Specified), Reported on 02/12/2024 Torsemide 20 MG Oral Tablet (Demadex)Indications :Chronic heart failure with preserved ejection fraction ([facility]),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 disease ([facility]) Take 4 Tablets by mouth in [...] disease, with long-term current use of insulin ([facility]) Inject 2 mg under the skin [...] hemoglobin A1c goal of less than 7.0% ([facility]) INJECT UNDER THE SKIN 20 UNITS AT BREAKFAST, 26 UNITS AT LUNCH, 38 UNITS WITH DINNER PLUS CORRECTION PER [facility] OR DIRECTED UP TO 120 UNITS PER DAY 120 mL 3 03/21/2024 Active DIURETIC TITRATION PLAN If no improvement on day 3, contact [facility] for possible home visit 1 Each [...] has been better controlled recently. Monitor using Box Garden[employer] Cindy. NEMESIO (acute kidney injury) 04/30/2022 Severe [...] yrs 01/04/2018,08/03/2017,07/03 Pneumococcal Conjugate Vacci ne, 20-valent ([id number]) 06/09/2022 Pneumococcal Polysaccharide PPV23 (Pneumovax) 03/06/2020 RSV [...] No 08/05/2023 Does the household have a [facility] source [facility] income? (Household - for [...] Encounter - Janeth Kelley LPN - 03/29/2024 11:36 AM EDT Communication Note Name: Tony Delong Situation: Pts wt increased lbs in days. Feeling SOB w exertion Background: PMH: CHF, DM, COPD, KD, HTN Assessment: Pt reporting increased SOB w exertion Recommendation: Acute HV Care team availability: GPS (location): Will see pt today. Acute nurse: MARLO MIH: MARLO documented in this encounter Plan of Treatment Upcoming Encounters Date Type Department Care Team (Late st Contact Info) Description 03/29/2024 4:00 PM EDT Home Visit [facility], [facility] 132 [facility] [place] [address] Love Steevns, RN 132 [facility] [place] [address] 04/15/2024 8:30 AM EDT Scheduled Telephone [facility], [facility] [address] [facility] [place] [address] Mery Calderon RDN [address] [place] [address] 05/09/2024 1:40 PM EST Office Visit Nephrology, [facility] 200 [place] [address] Shivani Magallon MD 200 [place] [address] 05/30/2024 1:00 PM EST Telemedicine Cardiology [facility], [place] [address] [place] [address] [place] [address], Pharmacist Cardiology [facility] [address] [place] [address] 06/13/2024 11:15 AM EST Hospital Encounter ENDO [facility], Endoscopy Room [facility] [address] [place] [phone] José Miguel Sifuentes MD [address] [place] [address] 06/13/2024 11:15 AM EST - 06/13/2024 11:45 AM EST Surgery ENDO [facility], [facility] [place] [phone] José Miguel Sifuentes MD [address] [place] [address] COLONOSCOPY FLEXIBLE PROXIMAL DIAGNOSTIC 07/01/2024 2:20 PM EST Office Visit Family Practice [address] [place] [address] [place] [address] Igor Mcconnell, 293 [place] [address] 08/08/2024 9:30 AM EST Nurse Only Ancillary [address] [place] [address] [place], Nurse [address] [place] [address] 10/27/2024 1:00 PM EDT Office Visit [facility] [place] [phone] Lindsey Sheikh CRNP 132 [facility] [place] [address] Scheduled Procedures Name Priority Associated Diagnoses Date/Ti [...] this encounter Medical Devices Implanted Type Area Territory Outside Sales Manager Device Identifier Shelf Expiration Date Model / Serial / Lot Lens Intraoc 21.0 - [id number] - [id number] Implanted:Qty: 1 on 01/22/2017 by Cheko Mcnamara MD at OR [facility] Right: Eye BAUSCH [employer] LOMB 08/05/2021 [id number] / [id number] / [id number] Lens Intraoc 21.5 - [id number] - [id number] Implanted:Qty: 1 on 02/03/2017 by Cheko Mcnamara MD at OR [facility] Left: Eye BAUSCH & LOMB 09/02/2021 [id number] / [id number] / [id number] documented as of this encounter Advance Directives [...] and were consensually agreed upon. Care Teams Veterinary Bacteriologist Relationship Specialty Start Date End Date Igor Mcconnell DO [address] [place] [address] PCP - General Internal Medicine 02/12/24 documented as of this encounter
--- OUTSIDE RECORDS SUMMARY | 2024-08-26 02:43 | External Medical Summary | Summary of Care ---
Author Name Unknown Organization [facility] Address [address] [facility] [place] [address] Phone [phone] Care Team Providers Care Tobacco Drummer Name Role Phone Igor Mcconnell DO Primary Care Provider [phone] Reason for Visit * Reason Onset Date Comments Follow Up Medication Administration 03/11/2024 Flu an d/or Pneumo Inj Encounter Details Date Type Department Care Team (Late st Contact Info) Description 03/11/2024 8:30 AM EDT Office Visit Cardiology, [facility] [address] [place] [address] Elizabeth Pineda PA-C [address] [place] [address] Chronic heart failure with preserved ejection fraction (HFpEF) (HCC)*; Need for prophylactic vaccination and inoculation against influenza; 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); Hypertensive heart and [...] TIMES DAILY 500 Each 3 02/17/20 23 Active Carvedilol 25 MG Oral Tablet (Coreg)Indications [...] E11.9 300 Strip 3 09/23/19 24 Active Rbuhw-0-tutg Ethyl Esters 1 GM Oral Capsule (Lovaza) Take 2 Capsules by mouth in the morning and 2 Capsules before bedtime. 360 Capsule 1 10/05/19 24 Active Omeprazole 20 MG Oral Capsule [...] ([facility]) INJECT UNDER THE SKIN 100 UNITS TWICE DAILY OR DIRECTED 90 mL 3 01/18/20 24 025 Active Additional Information Patient taking differently: 90 Units Subcutaneous BID(Non-Specified), Reported on 02/12/2024 Torsemide 20 MG Oral Tablet (Demadex)Indicatio ns:Chronic heart failure with preserved ejection fraction ([facility]),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 disease ([facility]) Take 4 Tablets by mouth in [...] the skin once a week. 2 mL 02/16/20 24 Active Potassium Chloride Gaviota ER 20 MEQ Oral Tablet Extended Release Take 1 Tablet by mouth in the morning and 1 Tablet before bedtime. 180 Tablet 02/18/20 24 Active Clotrimazole-Betam ethasone 1-0.05 % External [...] then stop. 10 Tablet 03/03/20 24 Active metOLazone 2.5 MG Oral Tablet (Zaroxolyn)Indicat ions: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) Take 1 tablet as needed for > 3 lb weight gain in 1 day, or > 5 lb weight gain in 1 week. Do not start before March 14, 2024. 03/14/20 24 Active NovoLOG FlexPen 100 UNIT/ML Subcutaneous Solution Pen-injectorIndica tions:Type 2 diabetes mellitus with hemoglobin A1c goal of less than 7.0% (HCC) INJECT UNDER THE SKIN 26 UNITS AT BREAKFAST, 26 UNITS AT LUNCH, 32 UNITS WITH DINNER PLUS CORRECTION PER [facility] OR DIRECTED UP TO 120 UNITS PER DAY 120 mL 3 12/19/19 23 024 Discontinued(Re fill) metOLazone 2.5 MG Oral Tablet (Zaroxolyn)Indicat ions: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 Or take as directed; take one dose only if >3 lb wt gain in one day or >5 lb wt gain in one week. 15 Tablet 3 02/08/20 24 024 Discontinued Allopurinol 100 MG Oral Tablet (Zyloprim) Take 2 Tablets by mouth in the morning. 60 Tablet 3 03/03/20 24 024 Discontinued documented as of this encounter (statuses as of 03/27/2024) Active Problems Patient Care Coordination No te Formatting of this note migh t be different from the original. 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 (Household - [...] Sign Reading Time Taken Comments Blood Pressure 122/68 03/11/2024 8:19 AM EDT Pulse 62 03/11/2024 8:19 AM EDT Temperature - - Respiratory Rate - - Oxygen Saturation 98% 03/11/2024 8:19 AM EDT Inhaled Oxygen Concentration - - Weight 130.6 kg (288 lb) 03/11/2024 8:19 AM EDT Height - - Body Mass Index 39.06 03/01/2024 2:23 PM EDT documented in this encounter Progress Notes * Elizabeth Pineda PA-C - 03/11/2024 8:26 AM EDT Cardiology F/U: SUBJECTIVE: Tony Delong is a 64 year old male here today for routine cardiology follow-up. Last clinic evaluation approximately [address] Hunter . 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 BP controlled. Taking meds as prescribed. No interim hospitalizations. Fluid status managed closely by [facility]. He takes metolazone 1 x every 7-10 days approx for weight gain. Nephro has been following renal function. Weight is down 10 lbs since last cardio visit. Chronic dyspnea reported, but stable. No chest pain. No palpitations, dizziness, syncope or near syncope. No orthopnea, PND, or increased lower extremity edema. No fever, chills, cough, hematochezia, melena, or hemoptysis. Review of Systems: See HPI for pertinent positives. All others negative, other than those noted in HPI. Patient Active Problem List Diagnosis Type 2 [...] Allergy (See Comments) Rash 1+ cocamidopropyl betaine Current Outpatient Medications Medication Sig Dispense Refill [...] At least 1 hour after other medications NovoLOG FlexPen 100 UNIT/ML Subcutaneous Solution Pen-injector INJECT UNDER THE SKIN 26 UNITS AT BREAKFAST, 26 UNITS AT LUNCH, 32 UNITS WITH DINNER PLUS CORRECTION PER [facility] OR DIRECTED UP TO120 UNITS PER DAY 120 mL 3 BD Pen Needle Short U/F 31G X 8 MM (Insulin Pen Needle) USE TO INJECT INSULINS 5 TIMES DAILY 500 Each 3 Carvedilol 25 MG Oral Tablet (Coreg) TAKE ONE TABLET BY MOUTH EVERY MORNING AND TAKE ONE TABLET BY MOUTH BEFORE BEDTIME 200 Tablet 3 Evolocumab 140 MG/ML Subcutaneous Solution Auto-injector (Repatha SureClick) Inject 140 mg under the skin every 14 days. 6 mL 3 hydrALAZINE HCl 25 MG Oral Tablet (Apresoline) Take 1 Tablet by mouth in the morning and 1 Tablet at noon and 1 Tablet before bedtime. 300 Tablet 3 OneTouch Verio In Vitro Strip (Glucose Blood) USE TO TEST BLOOD GLUCOSE 3 TIMES A DAY. DX: E11.9 300 Strip 3 [id number] Ethyl Esters 1 GM Oral Capsule (Lovaza) Take 2 Capsules by mouth in the morning and 2 Capsules before bedtime. 360 Capsule 1 Omeprazole 20 MG Oral Capsule Delayed Release (PriLOSEC) TAKE 1 CAPSULE BY MOUTH IN THE MORNING AND1 CAPSULE BEFORE BEDTIME 30 MINUTES BEFORE A MEAL 180 Capsule 1 Ondansetron 4 MG Oral Tablet Disintegrating (Zofran) Place 1 Tablet on tongue every 8 hours as needed for Nausea. 30 Tablet 0 Tresiba FlexTouch 200 UNIT/ML Subcutaneous Solution [...] skin once a week. 2 mL 11 Potassium Chloride Gaviota ER 20 MEQ Oral Tablet Extended Release Take 1 Tablet by mouth in the morning and 1 Tablet before bedtime. 180 Tablet 3 Clotrimazole-Betamethasone 1-0.05 % External Cream (Lotrisone) Apply small amount of cream to scrotal area two times a day 90 g 1 Allopurinol 100 MG Oral Tablet (Zyloprim) Take 2 Tablets by mouth in the morning. 60 Tablet 3 predniSONE 5 MG Oral Tablet (Deltasone) As directed for first part of taper. 20 mg (4 tabs) x 5 days, then 10 mg (2 tabs) x 5 days, then 5 mg (1 tab) x 5 days, then 2 mg (separate prescription) x 5 days then stop. 35 Tablet 0 predniSONE 1 MG Oral Tablet (Deltasone) As directed for last part of taper >> 20 mg (separateprescription) x 5 days, then 10 mg (separate prescription) x 5 days, then 5 mg (separate prescription) x 5 days, then 2 mg (2 tabs) x 5 days then stop. 10 Tablet 0 [START ON 03/14/2024] metOLazone 2.5 MG Oral Tablet (Zaroxolyn) Take 1 tablet as needed for > 3 lbweight gain in 1 day, or > 5 lb weight gain in 1 week. Do not start before March 14, 2024. No current facility-administered medications for this visit. OBJECTIVE/PHYSICAL EXAMINATION: BP 122/68 | Pulse 62 | Wt 130.6 kg (288 lb) | SpO2 98% | BMI 39.06 kg/m | BSA 2.58 m Blood pressure my repeat 134/78 Wt Readings from Last 3 Encounters: 03/11/24 130.6 kg (288 lb) 03/03/24 132.2 kg (291 lb 8 oz) 03/01/24 130.6 kg (288 lb) General: Age appropriate in no acute distress Head: normocephalic, no masses, lesions, tenderness or abnormalities Eyes: conjunctiva are pink and non-injected, sclera clear Throat: clear Nares: without discharge Neck: supple, no adenopathy, normal jugular venous pulse, no hepatojugular reflux, no carotid bruits Chest: normal shape and normal respiratory effort Lungs: clear to auscultation and percussion Cardiac Exam: regular rate & rhythm II/ systolic murmur LSB Abdomen: abdomen soft, non-tender, no abnormal masses, no hepatosplenomegaly, no abdominal bruit, no femoral bruit Musculoskeletal: no gait disturbance, no joint inflammation, no deforming arthritis Extremities: no edema, no cyanosis, pulses intact 2+/4 Neuro: grossly normal exam Data: Echo report reviewed dated February 2024: Interpretation Summary The left ventricular cavity size is normal. The LV wall thickness is moderately increased (concentric). The left ventricular wall motion is normal. The qualitative LV ejection fraction is 55-59% (normal). The left ventricular diastolic function is moderately abnormal (grade II). The aortic valve is moderately calcified. Mild aortic valve stenosis is present. There is moderate mitral annular calcification. There is trivial mitral and tricuspid insufficiency only Latest Reference Range & Units 02/24/24 14:26 SODIUM 135 - 146 mmol/L 137 POTASSIUM 3.5 - 5.1 mmol/L 4.0 CHLORIDE 98 - 107 mmol/L 95 (L) CO2 22 - 32 mmol/L 26 BUN 6 - 20 mg/dL 75 (H) CREATININE 0.6 - 1.2 mg/dL 2.3 (H) EGFR >=60 mL/min 30 (L) ANION GAP 7 - 15 mmol/L 16 (H) GLUCOSE 70 - 120 mg/dL 208 (H) CALCIUM 8.4 - 10.2 mg/dL 9.1 (L): Data is abnormally low (H): Data is abnormally high ASSESSMENT: 64 year old male ICD-10-CM 1. Chronic heart failure with preserved ejection fraction (HFpEF) ([facility]) I50.32 2. Need for prophylactic vaccination and inoculation against influenza Z23 3. 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) I13.0 I50.32 N18.4 4. Hypertensive heart and kidney disease 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 (HCC) I13.0 I50.32 N18.32 PLAN: Stable cardiac symptoms Improved volume status with titration of diuretics last visit. Down 10 lbs. Continue torsemide 80 mg BID Continue metolazone 1 x per week. Ongoing renal insufficiency but relatively stable. Follows with nephro. CHF tools discussed including daily weights, salt/sodium/fluid restriction, and use of diuretic protocol. The patient is to continue all current medications as listed above. No changes were made at today'svisit. Seasonal flu vaccine provided today Patient is being evaluated in the cardiology office for ongoing care/risk management for CHF; HTN; Dyslipidemia. I spent a total of 30 minutes on the date of service in preparation, delivery, and documentation ofthe care provided to Tony Delong excluding any time spent in the performance of separately billed services. The patient agrees to the above plan and will call with additional questions or concerns. ER with all emergencies advised. Follow-up: Return in about 6 months (around 09/08/2024). | Check-out note: With Dr. Dale Pineda, PA-C Department of Cardiology This chart was completed in part utilizing [employer] Speech Voice Recognition Software. Grammatical errors, random word insertions, prounoun errors, and incomplete sentences are an occasional consequence of this system due to software limitations, ambient noise, and hardware issues. Any formal questions or concerns about the content, text, or information contained within the body of this dictation should be directly addressed to the provider for clarification. * Jennifer Lopez CMA - 03/11/2024 8:18 AM EDT PRE - ADMINISTRATION DOCUMENTATION Are you experiencing any cold symptoms or fever? No Have you had Guillain-[place] Syndrome (an illness that causes paralysis) within the last 6 weeks? No Have you had the flu shot in the past? YES and NO Have you ever had a reaction to the flu shot? No Jennifer Lopez CMA, 03/11/2024 8:18 AM Immunization Administration Documentation Time Out Procedure Performed: Yes Patient Identified (Ask Name/Date of ): Yes Does the patient have a fever greater than 101 degrees today? No Patient allergic to latex? No VFC Stock: Yes, Does this patient qualify for immunization through the VFC program because he/she (check only one): Yes-is enrolled in Medicaid Immunization(s) verified: Yes, Immunization Name: Flu, VIS Sheet(s) given: Yes Verified Side and Site: Yes Verified Shot(s) with Parent(s)/Patient: Yes documented in this encounter Nursing Notes * Jennifer Lopez CMA - 03/11/2024 8:16 AM EDT Examination Room: 6 Name: Tony Delong Date of : (1960) Reason for Visit: 3m Interim Hospitalization(s): none Problems/Concerns: denied Chest Pain/SOB: denied chest pain, does have SOBOE [facility] a way you can [...] AM EDT Scheduled Telephone [facility], [place] [address] [place] [id number] [place], Nurse [facility] [address] [place] [phone] 04/15/2024 8:30 AM EDT Scheduled Telephone [facility], [facility] [address] [facility] [place] [address] Mery Calderon RDN [address] [facility] [place] [address] 05/09/2024 1:40 PM EST Office Visit Nephrology, [facility] [address] [place] [address] Shivani Magallon MD [address] [facility] [place] [address] 05/30/2024 1:00 PM EST Telemedicine Cardiology [facility], [place] [address] [place] [address] [place] [address], Pharmacist Cardiology [facility] [address] [place] [address] 06/13/2024 11:15 AM EST Hospital Encounter ENDO [facility], Endoscopy Room [facility] [address] [place] [phone] José Miguel Sifuentes MD [address] [place] [address] 06/13/2024 11:15 AM EST - 06/13/2024 11:45 AM EST Surgery ENDO [facility], Endoscopy Room [facility] [address] [place] [phone] José Miguel Sifuentes MD [address] [place] [address] COLONOSCOPY FLEXIBLE PROXIMAL DIAGNOSTIC 07/01/2024 2:20 PM EST Office Visit Family Practice [address] [place] [address], [place] [address] [place] [address] Igor Mcconnell, [address] [place] [address] 08/08/2024 9:30 AM EST Nurse Only Ancillary [address] [place] [address] [place], Nurse [address] [place] [address] 10/27/2024 1:00 PM EDT Office Visit [facility] [address] [facility] [place] [phone] Lindsey Sheikh CRNP [address] [facility] [place] [address] Scheduled Procedures Name Priority Associated Diagnoses Date/Ti [...] this encounter Medical Devices Implanted Type Area Heating Unit Mechanic Device Identifier Shelf Expiration Date Model / Serial / Lot Lens Intraoc 21.0 - [id number] - [id number] Implanted:Qty: 1 on 01/22/2017 by Cheko Mcnamara MD at OR [facility] Right: Eye [employer] 08/05/2021 [id number] / [id number] / [id number] Lens Intraoc 21.5 - [id number] - [id number] Implanted:Qty: 1 on 02/03/2017 by Cheko Mcnamara MD at OR [facility] Left: Eye [employer] 09/02/2021 [id number] / [id number] / [id number] documented as of this encounter Visit Diagnoses Diagnosis Chronic heart failure with preserved ejection fraction (HFpEF) (HCC)- Primary Need for prophylactic vaccination and inoculation against influenza 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) Hypertensive heart and [...] and were consensually agreed upon. Care Teams Tobacco Drummer Relationship Specialty Start Date End Date Igor Mcconnell DO [address] [facility] [place] [address] PCP - General Internal Medicine 02/12/24 documented as of this encounter
--- OUTSIDE RECORDS SUMMARY | 2024-08-26 02:44 | External Medical Summary | Summary of Care ---
Author Name Unknown Organization [facility] Address [address] [place] [address] Phone [phone] Care Team Providers Care Dye Tub Operator Name Role Phone Igor Mcconnell DO Primary Care Provider [phone] Reason for Visit * Reason Comments Dosage Adjustment Via Phone (anticoag Cl inic) Hyperlipidemia Encounter Details Date Type Department Care Team (Late st Contact Info) Description 03/24/2024 2:10 PM EDT Telemedicine Cardiology [facility] [address] [place], [place] [phone] [place] [address], Pharmacist Cardiology [facility] [address], [place] [phone] Mixed dyslipidemia*; Dyslipidemia, goal LDL below 100 [...] 200 Tablet 3 3 05/24/20 24 Active hydrALAZINE HCl 25 MG Oral [...] DX: E11.9 300 Strip 3 4 Active Qgiyd-6-rrat Ethyl Esters 1 GM Oral Capsule (Lovaza) [...] stage 4 chronic kidney disease ([facility]) Take 4 Tablets by mouth in the [...] goal of less than 7.0% ([facility]) INJECT UNDER THE SKIN 20 UNITS AT BREAKFAST, 26 UNITS AT LUNCH, 38 UNITS WITH DINNER PLUS CORRECTION PER [facility] OR DIRECTED UP TO 120 UNITS PER DAY 120 mL 3 4 Active DIURETIC TITRATION PLAN If no improvement on day 3, contact [facility] for possible home visit 1 Each 4 Active Evolocumab 140 MG/ML Subcutaneous Solution Auto-injector (Repatha SureClick)Indicatio ns:Dyslipidemia, goal LDL below 100,Mixed dyslipidemia Inject 140 mg under the skin every 14 days. 6 mL 3 4 Active Rosuvastatin Calcium 5 MG Oral Tablet (Crestor)Indication s:Mixed dyslipidemia Take 1 Tablet by mouth in the morning. 90 Tablet 3 4 Active Evolocumab 140 MG/ML Subcutaneous Solution Auto-injector (Repatha SureClick)Indicatio ns:Dyslipidemia, goal LDL below 100,Mixed dyslipidemia Inject 140 mg under the skin every 14 days. 6 mL 3 3 03/24/20 24 Discontinu ed(Refill) documented as of this encounter (statuses as of 03/24/2024) Active Problems Patient Care Coordination No te Formatting of this note migh t be different from the original. Heart Failure Self-Management and Exacerbation Plan "RED FLAG" HF Symptoms: Leg Swelling Abdominal Bloating Increased dyspnea on exertion Increased shortness of breath at rest Orthopnea Remote Patient Monitoring Vendor: [facility] Device(s): Connected Scale Self - [...] in the Comments) Remote Patient Monitoring Vendor: [employer] Device(s): Connected Scale Self - Management [...] 08/18/2017 Last Assessment & Plan: Continues on CureDMaza 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 repatha History of [...] yrs 01/04/2018,08/03/2017,07/03 Pneumococcal Conjugate Vacci ne, 20-valent ([id number]) 06/09/2022 Pneumococcal Polysaccharide PPV23 (Pneumovax) 03/06/2020 RSV [...] Notes * Willa Parr, [facility] - 03/24/2024 1:53 PM EDT PCSK-9 Inhibitor Follow Up After connecting to the patient via telephone, the patient was identified by name and date of . Patient was then informed that this was a telephone call only visit. The patient agreed to participate Visit Disposition: Status check/routine follow up Duration: 5 minutes Primary Gum Machine Operator/Ordering Provider: Gilbert Hunter MD HPI: Tony Delong is a 64 year old year old male. History: Dyslipidemia, T2DM, Coronary Calcification, Liver Cirrhosis Target LDL: < 55 Clinical ASCVD/Risk Score: The ASCVD Risk score (Chris DK, et al., 2019) failed to calculate for the following reasons: The patient has a prior RI or stroke diagnosis Patient Active Problem List [...] 12/11/2016 12:00 AM LDL CHOLESTEROL (CALCULATED) - WerdsmithER 83 02/12/2024 02:38 PM LDL CHOLESTEROL (CALCULATED) - WerdsmithER 152 (H) 01/05/2023 08:27 AM LDL CHOLESTEROL (CALCULATED) - WerdsmithER 109 10/23/2022 09:12 AM LDL CHOLESTEROL (DIRECT MEASURE) - WerdsmithER 89 07/10/2023 10:57 AM LDL CHOLESTEROL (DIRECT [...] function test in ~10 weeks; prior to HIM telemed appt (ordered) Follow-Up Appointment(s): Pharmacist: Cherie Olivares pharmacist 2 (05/30/24) Physician: No follow up needed Willa Parr [facility] Clinical Pharmacist Cardiology Department 03/24/2024,1:53 PM documented in this encounter Plan of Treatment Upcoming Encounters Date Type Department Care Team (Late st Contact Info) Description 03/25/2024 12:15 PM EDT Scheduled Telephone [facility], [facility] [address] [facility] [place] [address] Coordinator, [facility] [address] [facility] [place] [address] 04/15/2024 8:30 AM EDT Scheduled Telephone [facility], [facility] [address] [facility] [place] [address] Mery Calderon RDN [address] [place] [address] 05/09/2024 1:40 PM EST Office Visit Nephrology, Susan Palacios [address] [place] [address] Shivani Magallon MD 200 [facility] [place] [address] 05/30/2024 1:00 PM EST Telemedicine Cardiology [facility] [place] [address] [place] [address] [place] [address], Pharmacist Cardiology [facility] [address] [place] [facility] [address] 06/13/2024 11:15 AM EST Hospital Encounter ENDO [facility], Endoscopy Room [facility] [address] [place] [phone] José Miguel Sifuentes MD [address] [place] [address] 06/13/2024 11:15 AM EST - 06/13/2024 11:45 AM EST Surgery ENDO [facility], Endoscopy Room [facility] [address] [place] [phone] Joés Miguel Sifuentes MD [address] [place] [address] COLONOSCOPY FLEXIBLE PROXIMAL DIAGNOSTIC 07/01/2024 2:20 PM EST Office Visit Family Practice [address] [place] [address] 293 [place] [address] Igor Mcconnell, 293 [facility] [place] [address] 08/08/2024 9:30 AM EST Nurse Only Ancillary [address] [place] [address] [place], Nurse [address] [place] [address] 10/27/2024 1:00 PM EDT Office Visit Sleep Disorders Ctr [facility] [address] [place] [phone] Lindsey Sheikh CRNP [address] [place] [address] Scheduled Orders Name Type Priority Associated Diagnoses Orde r Schedule LIPID PANEL WITH DIRECT LDL IF TG IS HIGH Lab Routine Mixed dyslipidemia Expected: 05/23/2024, Expires: 03/24/2025 HEPATIC FUNCTION PANEL Lab Routine Mixed dyslipidemia Expected: 03/24/2024, Expires: 05/23/2024 Scheduled Procedures Name Priority Associated Diagnoses Date/Ti [...] this encounter Medical Devices Implanted Type Area Marketing Editor Device Identifier Shelf Expiration Date Model / Serial / Lot Lens Intraoc 21.0 - [id number] - [id number] Implanted:Qty: 1 on 01/22/2017 by Cheko Mcnamara MD at OR [facility] Right: Eye [employer]OM[employer] 08/05/2021 [id number] / [id number] / [id number] Lens Intraoc 21.5 - [id number] - [id number] Implanted:Qty: 1 on 02/03/2017 by Cheko Mcnamara MD at OR [facility] Left: Eye BA[employer]CH [employer] LOMB 09/02/2021 [id number] / [id number] / [id number] documented as of this encounter Visit Diagnoses Diagnosis Mixed dyslipidemia- Primary Mixed hyperlipidemia Dyslipidemia, goal [...] and were consensually agreed upon. Care Teams Dye Tub Operator Relationship Specialty Start Date End Date Igor Mcconnell DO [address] [place] [place] [address] PCP - General Internal Medicine 02/12/24 documented as of this encounter
--- OUTSIDE RECORDS SUMMARY | 2024-08-26 02:44 | External Medical Summary | Summary of Care ---
Author Name Unknown Organization [facility] Address [address] [place] [address] Phone [phone] Care Team Providers Care Auto Parts Manager Name Role Phone Igor Mcconnell DO Primary Care Provider [phone] Reason for Referral * Evaluate & Treat - Unlimited Visits (Within 10 days (routine)) - Authorized Specialty Diagnoses / Procedures Referred By Christin t Referred To Contact [employer] Diagnoses 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) Gregg Mulligan DO [address] [facility] [address] Referral ID Status Reason Start Date Expiration Date Visits Requested Visits Authorized [id number] Authorized Specialty Services Required 03/24/2024 999 999 [...] (HCC) Mikal Covington MD [address] [place] [address] Referral ID Status Reason Start Date Expiration Date Visits Requested Visits Authorized [id number] Authorized Specialty Services Required 03/24/2024 09/20/2024 99 [...] have his medication therapy managed by the [facility] Medication [facility] ([facility]) per established policies, procedures, and protocols. I also certify that this referral may serve as an initiation of service for the management of drug therapy in the above noted patient. [facility] providers will be responsible for scheduling patient visits, obtaining appropriate laboratory studies, and adjusting medication management therapy per patient's need, in addition to those roles spelled out in the clinic policy, procedures, and drug management protocols. I understand that the service provided by the [facility] Clinic is voluntary and have informed patient that they can refuse the service at their discretion. I am aware that the [facility] Clinic will provide me with a copy of the patient encounter via my [employer]. I authorize the [facility] Clinic to carry out these activities on my behalf. I consider this program to be a necessary part of the patient's medical care. Mikal Covington MD Reason for Visit * Reason Onset Date Comments [facility]: Maintenance 03/24/2024 Encounter Details Date Type Department Care Team (Late st Contact Info) Description 03/24/2024 Telephone [facility], [facility] [address] [facility] [place] [address] Minerva Marquez LPN [address] [facility] [place] [address] [facility]: Maintenance Allergies Active Allergy [...] DX: E11.9 300 Strip 3 09/23/2023 Active Hcayp-3-pxel Ethyl Esters 1 GM Oral Capsule (Lovaza) [...] at rest Orthopnea Remote Patient Monitoring Vendor: [facility] Device(s): Connected Scale Self - Management Plan [...] in the Comments) Remote Patient Monitoring Vendor: [employer] Device(s): Connected Scale Self - Management Plan [...] yrs 01/04/2018,08/03/2017,07/03 Pneumococcal Conjugate Vacci ne, 20-valent ([id number]) 06/09/2022 Pneumococcal Polysaccharide PPV23 (Pneumovax) 03/06/2020 RSV [...] encounter Miscellaneous Notes * Addendum Note - Minerva Marquez LPN [...] order for pulse ox. Pt will call [facility] with any concerns. * Addendum Note [...] of cc365 MTM and CC365 FYI Neph software applications designer pls ensure f/u per last neph note * Addendum Note - Gregg Mulligan DO - 03/24/2024 11:09 AM EDTAddended by: GREGG MULLIGAN on: 03/24/2024 11:09 AM Modules accepted: Orders * Telephone Encounter - Gregg Mulligan DO - 03/24/2024 11:05 AM EDT [facility] Remote Medical Command QuickNote Recommendations: Agree with Metolazone Was previously or may be currently on CC365 RPM Program - I would like to [...] Dr Verduzco since you follow for the CC365 HTN RPM work - I think it would be best to also have his scale and pulse ox be within the current health platform so all of his info is in [employer] and he's only using 1 vendor JOSE ALFREDO to Tony's Care Team Telephonic [facility] Pool please work on the following: see above Gregg Mulligan DO Remote Medical Command - [facility] 03/24/2024 Scheduled appointments in the next 60 days: Future Appointments-next 60 days Date/Time Provider Specialty Dept Phone 03/25/2024 12:15 PM Coordinator, [place] Aldana [facility] [phone] 04/15/2024 8:30 AM Mery Calderon RDN [facility] [phone] 07/01/2024 2:20 PM (Arrive by 2:05 PM) Igor Mcconnell DO Family Medicine [phone] 07/08/2024 2:20 PM (Arrive by 2:05 PM) Mikal Covington MD Nephrology [phone] 08/08/2024 9:30 AM Nurse [facility] Ancillary [phone] 10/27/2024 1:00 PM (Arrive by 12:45 PM) Lindsey Sheikh CRNP Sleep Disorders [phone] * Telephone Encounter - Minerva Marquez LPN - 03/24/2024 10:17 AM EDT Images from [...] as applicable): [] Moderate trigger priority on [facility] [] Confirmed tympanic equivalent temperature 100.4-101.9 F [...] as applicable): [x] High trigger priority on [facility] [] Confirmed tympanic equivalent temperature greater than [...] wt. F/U call scheduled. He will call [facility] with any concerns. Overall risk and identified plan: High risk: Next day follow up call scheduled Route to RNCM (Registered Nurse [employer] Roller) and Advance Practitioner Route to RMC (Remote Medical Coordinator) Initiate DTP (Diuretic Titration Protocol) if applicable documented in this encounter Plan of Treatment Upcoming Encounters Date Type Department Care Team (Late st Contact Info) Description 03/25/2024 12:15 PM EDT Scheduled Telephone [facility], [facility] 132 [place] [address] Coordinator, [facility] 132 [place] [address] 04/15/2024 8:30 AM EDT Scheduled Telephone [facility], [facility] [address] [place] [address] Mery Calderon RDN [address] [place] [address] 05/09/2024 1:40 PM EST Office Visit Nephrology, [facility] 200 [place] [address] Mikal Covington MD 200 [facility] [place], [place] [address] 05/30/2024 1:00 PM EST Telemedicine Cardiology [facility] [place] [address] [place] [address] [place] [address], Pharmacist Cardiology [facility] [address] [place], [place] [phone] 06/13/2024 11:15 AM EST Hospital Encounter ENDO OSS, Endoscopy Room [facility] [address] [place] [phone] José Miguel Sifuentes MD [address] [place] [address] 06/13/2024 11:15 AM EST - 06/13/2024 11:45 AM EST Surgery ENDO [facility], Endoscopy Room [facility] [address] [place] [phone] José Miguel Sifuentes MD [address] [place] [address] COLONOSCOPY FLEXIBLE PROXIMAL DIAGNOSTIC 07/01/2024 2:20 PM EST Office Visit Family [address] [place] [address] Igor Mcconnell, 293 [place] [address] 08/08/2024 9:30 AM EST Nurse Only Ancillary [address] [place] [address] [place], Nurse [address] [place] [address] 10/27/2024 1:00 PM EDT Office Visit [facility] Disorders Ctr [facility] [place] [phone] Lindsey Sheikh CRNP [address] [facility] [place] [address] Scheduled Procedures Name Priority Associated Diagnoses Date/Ti [...] this encounter Medical Devices Implanted Type Area Trade Promotion Analyst Device Identifier Shelf Expiration Date Model / Serial / Lot Lens Intraoc 21.0 - [id number] - [id number] Implanted:Qty: 1 on 01/22/2017 by Cheko Mcnamara MD at OR [facility] Right: Eye [employer]OMB 08/05/2021 [id number] / [id number] / [id number] Lens Intraoc 21.5 - [id number] - [id number] Implanted:Qty: 1 on 02/03/2017 by Cheko Mcnamara MD at OR [facility] Left: Eye BAUSCH [employer] LOMB 09/02/2021 [id number] / [id number] / [id number] documented as of this encounter Visit Diagnoses [...] were consensually agreed upon. Care Teams Auto Parts Manager Relationship Specialty Start Date End Date Igor Mcconnell DO [address] [place] [address] PCP - General Internal Medicine 02/12/24 documented as of this encounter
--- OUTSIDE RECORDS SUMMARY | 2024-08-26 02:44 | External Medical Summary | Summary of Care ---
Author Name Unknown Organization [facility] Address [address] [facility] [place] [address] Phone [phone] Care Team Providers Care Labor Relations Supervisor Name Role Phone Igor Mcconnell DO Primary Care Provider [phone] Encounter Details Date Type Department Care Team (Late st Contact Info) Description 03/24/2024 Telephone Cardiology, [place] [address] [facility] [place] [phone] [facility] 21 [facility] [place] [phone] Allergies Active Allergy Reactions Criticality Noted Date [...] BEDTIME 200 Tablet 3 04/19/2023 4 Active hydrALAZINE HCl 25 MG Oral [...] DX: E11.9 300 Strip 3 09/23/2023 Active Icbcy-8-padm Ethyl Esters 1 GM Oral Capsule (Lovaza) [...] 38 UNITS WITH DINNER PLUS CORRECTION PER [facility] OR DIRECTED UP TO 120 UNITS PER DAY 120 mL 3 03/21/2024 Active DIURETIC TITRATION PLAN If no improvement on day 3, contact [facility] for possible home visit 1 [...] rest Orthopnea Remote Patient Monitoring Vendor: [facility] Device(s): Connected Scale [...] the Comments) Remote Patient Monitoring Vendor: [facility] Device(s): Connected Scale [...] yrs 01/04/2018,08/03/2017,07/03 Pneumococcal Conjugate Vacci ne, 20-valent ([id number]) 06/09/2022 Pneumococcal Polysaccharide PPV23 (Pneumovax) 03/06/2020 RSV [...] encounter Miscellaneous Notes * Telephone Encounter - Willa Parr RPh - 03/24/2024 2:[address] Mcconnell, I spoke with the patient and he is agreeable to start Rosuvastatin 5 mg once a day. I also ordered a follow up lipid and hepatic panel. MTM appointment scheduled. Thanks Willa Parr, PharmD Clinical Pharmacist 03/24/2024 2:32 PM * Telephone Encounter - Igor Mcconnell DO - 03/24/2024 1:08 PM EDT He does have Cirrhosis. No reason not to do trial of low dose statin Check ALT, one month after medication start. * Telephone Encounter - Kaylynn Goldstein RPh - 03/24/2024 10:[address] Mcconnell, I was planning to call this patient for a PCSK9 inhibitor check in when I saw he had updated lipid ramesh in February. Upon chart reivew, pt has coronary artery calcifications and hx of Type 2 diabetes, making is LDL target <55 or a minimum <70. Most recent LDL was 83 He is currently on Repatha 140 mg every 2 weeks In the past statins and zetia have been avoided due to elevated LFTs. Upon chart review, most recent LFTS have totally normalized. I could not find the cause for his elevated LFTs in the past (possibly fatty liver disease?). He has not been seen by GI since 2021. I wanted to get your thoughts on next steps for this patient. Ideally would like to put him on a low dose statin in addition with his repatha to help lower his risk, but want to ensure you think that's reasonable given his history. Appreciate your input! Kaylynn Goldstein Pharm D Clinical [facility] Pharmacist Cardiology 03/24/2024,10:03 AM documented in this encounter Plan of Treatment Upcoming Encounters Date Type Department Care Team (Late st Contact Info) Description 03/25/2024 12:15 PM EDT Scheduled Telephone [facility], [facility] 132 [place] [address] Coordinator, [facility] 132 [place] [address] 04/15/2024 8:30 AM EDT Scheduled Telephone [facility], [facility] [address] [place] [address] Mery Calderon RDN [address] [place] [address] 05/09/2024 1:40 PM EST Office Visit Nephrology, Susan Palacios 200 [facility] [place] [address] Shivani Magallon MD 200 [facility] [place] [address] 05/30/2024 1:00 PM EST Telemedicine Cardiology [facility] [place] [address] [place] [address] [place] [address], Pharmacist Cardiology [facility] [address] [place], [place] [phone] 06/13/2024 11:15 AM EST Hospital Encounter ENDO OSSC, Endoscopy Room [facility] 132 [facility] [place] [phone] José Miguel Sifuentes MD [facility] [place] [address] 06/13/2024 11:15 AM EST - 06/13/2024 11:45 AM EST Surgery ENDO [facility], Endoscopy Room [facility] 132 [facility] [place] [phone] José Miguel Sifuentes MD 132 [facility] [place] [address] COLONOSCOPY FLEXIBLE PROXIMAL DIAGNOSTIC 07/01/2024 2:20 PM EST Office Visit Family Practice [address] [place] [address] 293 [facility] [place] [address] Igor Mcconnell, 293 [place] [address] 08/08/2024 9:30 AM EST Nurse Only Ancillary [address] [place] [address] [place], Nurse [address] [place] [address] 10/27/2024 1:00 PM EDT Office [facility] [address] [place] [phone] Lindsey Sheikh CRNP [address] [place] [address] Scheduled Procedures Name Priority Associated Diagnoses Date/Ti [...] Medical Devices Implanted Type Area Regional Company Truck Driver Device Identifier Shelf Expiration Date Model / Serial / Lot Lens Intraoc 21.0 - [id number] - [id number] Implanted:Qty: 1 on 01/22/2017 by Cheko Mcnamara MD at OR [facility] Right: Eye [employer]OMB 08/05/2021 [id number] / [id number] / [id number] Lens Intraoc 21.5 - [id number] - [id number] Implanted:Qty: 1 on 02/03/2017 by Cheko Mcnamara MD at OR [facility] Left: Eye BAUSCH [employer] LOMB 09/02/2021 [id number] / [id number] / [id number] documented as of this encounter Advance Directives [...] and were consensually agreed upon. Care Teams Labor Relations Supervisor Relationship Specialty Start Date End Date Igor Mcconnell DO [address] [facility] [place] [address] PCP - General Internal Medicine 02/12/24 documented as of this encounter
--- OUTSIDE RECORDS SUMMARY | 2024-08-26 02:44 | External Medical Summary | Summary of Care ---
Author Name Unknown Organization [facility] Address [address] [facility] [place] [address] Phone [phone] Care Team Providers Care Cloud Subject Matter Expert Name Role Phone Raquel Mcconnell DO Primary Care Provider [phone] Reason for Visit * Reason Comments Medication Refill Encounter Details Date Type Department Care Team (Late st Contact Info) Description 03/18/2024 Refill Pharmacy, [address] [place] [address] [address] [place] [phone] Type 2 diabetes mellitus with hemoglobin A1c goal of less than 7.0% ([facility]) Allergies Active Allergy Reactions Criticality Noted Date Comments Metolazone Renal complications 11/10/2023 Note prior DTP with metolazone resulted in acute renal failure Other Allergy (See Comments) Rash Low 10/13/2022 1+ cocamidopropyl betaine Sglt2 Inhibitors Other (Please comment) High 09/04/2020 Genital infection Sulfa Antibiotics Rash 10/15/2016 documented as of this encounter (statuses as of 03/21/2024) Medications Medication Sig Dispensed Refills Start Date [...] DX: E11.9 300 Strip 3 4 Active Ucime-8-yruy Ethyl Esters 1 GM Oral Capsule (Lovaza) [...] [facility]) INJECT UNDER THE SKIN 100 UNITS TWICE DAILY OR DIRECTED 90 mL 3 4 01/18/20 25 Active Additional Information Patient taking differently: 90 Units Subcutaneous BID(Non-Specified), Reported on 02/12/2024 Torsemide 20 MG Oral Tablet (Demadex)Indication s:Chronic heart failure with preserved ejection fraction ([facility]),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 disease ([facility]) Take 4 Tablets by mouth [...] PER DAY 120 mL 3 4 Active NovoLOG FlexPen 100 UNIT/ML Subcutaneous Solution Pen-injectorIndicat ions:Type 2 diabetes mellitus with hemoglobin A1c goal of less than 7.0% ([facility]) INJECT UNDER THE SKIN 26 UNITS AT BREAKFAST, 26 UNITS AT LUNCH, 32 UNITS WITH DINNER PLUS CORRECTION PER [facility] OR DIRECTED UP TO 120 UNITS PER DAY 120 mL 3 3 03/18/20 24 Discontinu ed(Refill) documented as of this encounter (statuses as of 03/21/2024) Active Problems Patient Care Coordination No te [...] performed? Mobile Problem Noted Date Diagnosed Date Hepatic cirrhosis [...] the Comments) Remote Patient Monitoring Vendor: [facility] [...] as of this encounter (statuses as of 03/21/2024) Resolved Problems Problem Noted Date Diagnosed Date [...] as of this encounter (statuses as of 03/21/2024) Immunizations Name Administration Dates Next Due COVID-19 mRNA, LNP-s, No Pre serve, 2-Dose Series (Moderna) 12/10/2020,11/12/2020 Hepatitis B, 20+ yrs 01/04/2018,08/03/2017,07/03 Pneumococcal Conjugate Vacci ne, 20-valent ([id number]) 06/09/2022 Pneumococcal Polysaccharide PPV23 (Pneumovax) 03/06/2020 RSV [...] encounter Miscellaneous Notes * Telephone Encounter - Derrick Hines RPh - 03/21/2024 7:09 AM EDTSigned Prescriptions: Disp Refills NovoLOG FlexPen 100 UNIT/ML Subcutaneous S*120 mL 3 Sig: INJECT UNDER THE SKIN 20 UNITS AT BREAKFAST, 26 UNITS AT LUNCH, 38 UNITS WITH DINNER PLUS CORRECTION PER [facility] OR DIRECTED UP TO 120 UNITS PER DAY Authorizing Provider: RAQUEL MCCONNELL Ordering User: DERRICK MORAN V * Telephone Encounter - Derrick Hines RPh - 03/21/2024 7:06 AM EDT Did you pend patient's preferred pharmacy and medication before forwarding?no Pharmacy: [facility] Pending Prescriptions: Disp Refills NovoLOG FlexPen 100 UNIT/ML Subcutaneous *120 mL 3 Sig: INJECT UNDER THE SKIN 26 UNITS AT BREAKFAST, 26 UNITS AT LUNCH, 32 UNITS WITH DINNER PLUS CORRECTION PER [facility] OR DIRECTED UP TO 120 UNITS PER DAY Last Visit: 12/18/2022 (in office), 02/02/2024 (telemedicine) Next Visit: Visit date not found If no future appointments scheduled, and last appointment is greater than a year ago, please schedule patient for a follow-up appointment Last date the medication was ordered: 12/18/22 Is this request for a controlled substance?No Urine Drug Screen:No results found. However, due to the size of the patient record, not all encounters were searched. Please check Results Review for a complete set of results. Patient Phone Numbers Labs: Lab Results Component Value Date/Time CREAT 2.3 (H) 03/11/2024 08:04 AM CREAT 2.32 (A) 10/23/2023 12:00 AM CREAT 1.20 12/19/2020 12:22 PM CREAT 0.9 09/08/2017 08:00 AM POTASSIUM 3.9 03/11/2024 08:04 AM POTASSIUM 3.9 10/23/2023 12:00 AM POTASSIUM 3.8 12/19/2020 12:22 PM POTASSIUM 3.9 09/08/2017 08:00 AM TSH 1.37 08/24/2023 02:21 PM TSH 2.89 10/05/2018 12:00 AM LDL 83 02/12/2024 02:38 PM LDLCALC 110 (A) 12/21/2017 12:00 AM ALT 49 03/11/2024 08:04 AM ALT 226 (A) 01/09/2020 12:00 AM HGBA1C 8.5 (H) 02/12/2024 02:38 PM HGBA1C 7.6 10/21/2023 12:00 AM HGBA1C 11.6 (A) 03/08/2019 08:54 AM HGBA1C 9.7 12/01/2018 12:00 AM Derrick Moran RPh, CACP, CDE Clinical Pharmacist Medication Therapy [facility] 03/21/2024, 7:07 AM documented in this encounter Plan of Treatment Upcoming Encounters Date Type Department Care Team (Latest Contact Info) Description 04/15/2024 8:30 AM EDT Scheduled Telephone [facility], [facility] [address] [facility] [place] [address] Mery Calderon, RDN [address] [place] [address] 06/13/2024 11:15 AM EST Hospital Encounter ENDO [facility], Endoscopy Room [facility] [address] [place] [phone] José Miguel Sifuentes MD [address] [place] [address] 06/13/2024 11:15 AM EST - 06/13/2024 11:45 AM EST Surgery ENDO [facility], Endoscopy Room [facility] [address] [place] [phone] José Miguel Sifuentes MD [address] [place] [address] COLONOSCOPY FLEXIBLE PROXIMAL DIAGNOSTIC 07/01/2024 2:20 PM EST Office Visit Family Practice [address] [facility], [place] [address] [facility] [place] [address] Raquel Mcconnell, 293 [place] [address] 07/08/2024 2:20 PM EST Office Visit Nephrology, [facility] [address] [place] [address] Shivani Magallon MD [address] [place] [address] 08/08/2024 9:30 AM EST Nurse Only Ancillary [address] [place] [address] [place], Nurse [address] [place] [address] 10/27/2024 1:00 PM EDT Office Visit [facility] Ctr [facility] 132 [facility] [place] [phone] Lindsey Sheikh CRNP 132 [facility] [place] [address] Scheduled Procedures Name Priority Associated Diagnoses Date/Ti [...] encounter Medical Devices Implanted Type Area Director Gift Device Identifier Shelf Expiration Date Model / Serial / Lot Lens Intraoc 21.0 - [id number] - [id number] Implanted:Qty: 1 on 01/22/2017 by Cheko Mcnamara MD at OR [facility] Right: Eye [employer] 08/05/2021 [id number] / [id number] / [id number] Lens Intraoc 21.5 - [id number] - [id number] Implanted:Qty: 1 on 02/03/2017 by Cheko Mcnamara MD at OR [facility] Left: Eye BAUSCH [employer] LOMB 09/02/2021 [id number] / [id number] / [id number] documented as of this encounter Visit Diagnoses Diagnosis Type 2 diabetes mellitus with hemoglobin A1c goal of less than 7.0% ([facility]) Special screening for malignant neoplasms, colon documented [...] and were consensually agreed upon. Care Teams Cloud Subject Matter Expert Relationship Specialty Start Date End Date Raquel Mcconnell DO [address] [facility] [place] [address] PCP - General Internal Medicine 02/12/24 documented as of this encounter
--- OUTSIDE RECORDS SUMMARY | 2024-08-26 02:44 | External Medical Summary | Summary of Care ---
Author Name Unknown Organization [facility] Address [address] [facility] [place] [address] Phone [phone] Care Team Providers Care Yeast Distiller Name Role Phone Igor Mcconnell DO Primary Care Provider [phone] Reason for Visit * Reason Onset Date Comments [facility]: Maintenance 03/24/2024 Encounter Details Date Type Department Care Team (Late st Contact Info) Description 03/24/2024 Telephone [facility], [facility] [address] [facility] [place] [address] Shruti Marquez, LEAD ATHLETE [address] [facility] [place] [address] [facility]: Maintenance Allergies Active Allergy [...] DX: E11.9 300 Strip 3 09/23/2023 Active Fkpkm-9-pvmf Ethyl Esters 1 GM Oral Capsule (Lovaza) [...] 38 UNITS WITH DINNER PLUS CORRECTION PER [facility] OR DIRECTED UP TO 120 UNITS PER DAY 120 mL 3 03/21/2024 Active documented as of this encounter (statuses [...] in the Comments) Remote Patient Monitoring Vendor: [employer] Device(s): Connected Scale Self - Management Plan Double dose of Torsemide for 3 days Exacerbation Plan BMP Chest X-Ray Additional Comments: Recommended using double torsemide for 3 days in a row, rather than 1 day like he has been doing Continue using Kaliki scale Low sodium diet Type 2 diabetes [...] yrs 01/04/2018,08/03/2017,07/03 Pneumococcal Conjugate Vacci ne, 20-valent (Csyhxeu96) 06/09/2022 Pneumococcal Polysaccharide PPV23 (Pneumovax) 03/06/2020 RSV [...] No 08/05/2023 Does the household have a rehabilitation hospital [...] * Telephone Encounter - Shruti MarquezROSCOE - 03/24/2024 10:17 AM EDT Images [...] wt. F/U call scheduled. He will call [facility] with any concerns. Overall risk and identified plan: High risk: Next day follow up call scheduled Route to RNCM (Registered Nurse Geothermal Powerplant Supervisor) and Advance Practitioner Route to RMC (Remote Medical Coordinator) Initiate DTP (Diuretic Titration Protocol) if applicable documented in this encounter Plan of Treatment Upcoming Encounters Date Type Department Care Team (Latest Contact Info) Description 03/25/2024 12:15 PM EDT Scheduled Telephone [facility], [facility] [address] [place] [address] Coordinator, [facility] [place] [address] 04/15/2024 8:30 AM EDT Scheduled Telephone [facility], [facility] [address] [facility] [place] [address] Mery Calderon, RDN [address] [facility] [place] [address] 06/13/2024 11:15 AM EST Hospital Encounter ENDO [facility], Endoscopy Room [facility] 132 [facility] [place] [phone] José Miguel Sifuentes MD 132 [facility] [place] [address] 06/13/2024 11:15 AM EST - 06/13/2024 11:45 AM EST Surgery ENDO [facility], Endoscopy Room [facility] [address] [place] [phone] José Miguel Sifuentes MD [address] [place] [address] COLONOSCOPY FLEXIBLE PROXIMAL DIAGNOSTIC 07/01/2024 2:20 PM EST Office Visit Family Practice [address] [facility], [address] [place] [address] Igor Mcconnell, 293 [place] [address] 07/08/2024 2:20 PM EST Office Visit Nephrology, [facility] [address] [place] [address] Shivani Magallon MD [address] [place] [address] [address] 08/08/2024 9:30 AM EST Nurse Only Ancillary [address] [place] [address] [place], Nurse [address] [place] [address] 10/27/2024 1:00 PM EDT Office Visit Sleep Disorders Ctr [facility] [address] [facility] [phone] Lindsey Sheikh CRNP 132 [facility] [address] Scheduled Procedures Name Priority Associated Diagnoses Date/Ti [...] encounter Medical Devices Implanted Type Area Assistant Principal Device Identifier Shelf Expiration Date Model / Serial / Lot Lens Intraoc 21.0 - [id number] - [id number] Implanted:Qty: 1 on 01/22/2017 by Cheko Mcnamara MD at OR [facility] Right: Eye [employer]OM[employer] 08/05/2021 [id number] / [id number] / [id number] Lens Intraoc 21.5 - [id number] - [id number] Implanted:Qty: 1 on 02/03/2017 by Cheko Mcnamara MD at OR [facility] Left: Eye [employer]CH [employer]OMB 09/02/2021 [id number] / [id number] / [id number] documented as of this encounter Advance Directives [...] and were consensually agreed upon. Care Teams Yeast Distiller Relationship Specialty Start Date End Date Igor Mcconnell DO [address] [facility] [place] [address] PCP - General Internal Medicine 02/12/24 documented as of this encounter
--- OUTSIDE RECORDS SUMMARY | 2024-08-26 02:44 | External Medical Summary | Summary of Care ---
Author Name Unknown Organization [facility] Address [address] [facility] [place] [address] Phone [phone] Care Team Providers Care Stripper Opaquer Name Role Phone Igor Mcconnell DO Primary Care Provider [phone] Reason for Visit * Reason Onset Date Comments [facility]: Maintenance 03/24/2024 Encounter Details Date Type Department Care Team (Late st Contact Info) Description 03/24/2024 Telephone [facility], [facility] [address] [facility] [place] [address] Shruti Marquez, HEALTH SCREENER [address] [facility] [place] [address] [facility]: Maintenance Allergies Active Allergy [...] DX: E11.9 300 Strip 3 09/23/2023 Active Lwrfd-6-fhzk Ethyl Esters 1 GM Oral Capsule (Lovaza) [...] ([facility]) INJECT UNDER THE SKIN 100 UNITS TWICE DAILY OR DIRECTED 90 mL 3 01/18/2024 Active Additional Information Patient taking differently: 90 Units Subcutaneous BID(Non-Specified), Reported on 02/12/2024 Torsemide 20 MG Oral Tablet (Demadex)Indications :Chronic heart failure with preserved ejection fraction ([facility]),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 disease ([facility]) Take 4 Tablets by mouth in the [...] in the Comments) Remote Patient Monitoring Vendor: [employer] Device(s): Connected Scale Self - Management Plan [...] Continues on lovyolandaa 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 allena History of [...] yrs 01/04/2018,08/03/2017,07/03 Pneumococcal Conjugate Vacci ne, 20-valent ([id number]) 06/09/2022 Pneumococcal Polysaccharide PPV23 (Pneumovax) 03/06/2020 RSV [...] encounter Miscellaneous Notes * Addendum Note - Gregg Mulligan DO - 03/24/2024 11:09 AM EDTAddended by: GREGG MULLIGAN on: 03/24/2024 11:09 AM Modules accepted: Orders * Telephone Encounter - Gregg Mulligan DO - 03/24/2024 11:05 AM EDT [facility] Remote Medical Command QuickNote Recommendations: [...] so all of his info is in [employer] and he's only using 1 vendor ROBBYI to Tony[employer] Care Team Telephonic HEALTH SCREENER Pool please work on the following: see above Gregg Mulligan DO Remote Medical Command - [facility] 03/24/2024 Scheduled appointments in the next 60 days: Future Appointments-next 60 days Date/Time Provider Specialty Dept Phone 03/25/2024 12:15 PM Coordinator, [place]ana [facility] [phone] 04/15/2024 8:30 AM Mery Calderon RDN [facility] [phone] 07/01/2024 2:20 PM (Arrive by 2:05 PM) Igor Mcconnell DO Family Medicine [phone] 07/08/2024 2:20 PM (Arrive by 2:05 PM) Shivani Magallon MD Nephrology [phone] 08/08/2024 9:30 AM Nurse [place] [facility] Ancillary [phone] 10/27/2024 1:00 PM (Arrive by 12:45 PM) Lindsey Sheikh CRNP Sleep Disorders [phone] * Telephone Encounter - Shruti Marquez LPN - 03/24/2024 10:17 AM EDT [...] wt. F/U call scheduled. He will call [facility] with any concerns. Overall risk and identified plan: High risk: Next day follow up call scheduled Route to RNCM (Registered Nurse Inspector Production Plastic Parts) and Advance Practitioner Route to RMC (Remote Medical Coordinator) Initiate DTP (Diuretic Titration Protocol) if applicable documented in this encounter Plan of Treatment Upcoming Encounters Date Type Department Care Team (Latest Contact Info) Description 03/25/2024 12:15 PM EDT Scheduled Telephone [facility], [facility] [address] [place] [address] Coordinator, [facility] [address] [place] [address] 04/15/2024 8:30 AM EDT Scheduled Telephone [facility], [facility] [address] [facility] [place] [address] Mery Calderon RDN [address] [facility] [place] [address] 06/13/2024 11:15 AM EST Hospital Encounter ENDO [facility], Endoscopy Room [facility] [address] [place] [phone] José Miguel Sifuentes MD [address] [place] [address] 06/13/2024 11:15 AM EST - 06/13/2024 11:45 AM EST Surgery ENDO [facility], Endoscopy Room [facility] [address] [place] [phone] José Miguel Sifuentes MD [address] [place] [address] COLONOSCOPY FLEXIBLE PROXIMAL DIAGNOSTIC 07/01/2024 2:20 PM EST Office Visit Family Practice [address] [place] [address] [place] [address] Igor Mcconnell, [address] [place] [address] 07/08/2024 2:20 PM EST Office Visit Nephrology, Susan Palacios [address] [place] [address] Shivani Magallon MD [address] [place] [address] 08/08/2024 9:30 AM EST Nurse Only Ancillary [address] [place] [address] [place] Nurse [address] [place] [address] 10/27/2024 1:00 PM EDT [facility] [address] [facility] [phone] Lindsey Sheikh CRNP [address] [facility] [address] Scheduled Procedures Name Priority Associated Diagnoses Date/Ti [...] this encounter Medical Devices Implanted Type Area Orchid Hand Device Identifier Shelf Expiration Date Model / Serial / Lot Lens Intraoc 21.0 - [id number] - [id number] Implanted:Qty: 1 on 01/22/2017 by Cheko Mcnamara MD at OR [facility] Right: Eye [employer]CH [employer] LOMB 08/05/2021 [id number] / [id number] / [id number] Lens Intraoc 21.5 - [id number] - [id number] Implanted:Qty: 1 on 02/03/2017 by Cheko Mcnamara MD at OR [facility] Left: Eye BAUSCH & LOMB 09/02/2021 [id number] / [id number] / [id number] documented as of this encounter Advance Directives [...] and were consensually agreed upon. Care Teams Stripper Opaquer Relationship Specialty Start Date End Date Igor Mcconnell DO [address] [place] [address] PCP - General Internal Medicine 02/12/24 documented as of this encounter
--- OUTSIDE RECORDS SUMMARY | 2024-08-26 02:44 | External Medical Summary | Summary of Care ---
Author Name Unknown Organization [facility] Address [address] [facility] [place] [address] Phone [phone] Care Team Providers Care Sales Coordinator Name Role Phone Igor Mcconnell DO Primary Care Provider [phone] Reason for Referral * Evaluate & Treat - Unlimited Visits (Within 10 days (routine)) - Authorized Specialty Diagnoses / Procedures Referred By Contcoby t Referred To Contact Pharmacist / Pharmacy Diagnoses 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) Mikal Covington MD [address] [place] [address] Referral ID Status Reason Start Date Expiration Date Visits Requested Visits Authorized [id number] Authorized Specialty Services Required 03/24/2024 09/20/2024 99 99 Question Answer Referral Priority Within 10 days (routine) Where should this appointment be scheduled? [facility] Referring Provider Role: Specialist Specialty: Nephro Reason for Referral: HTN Goal BP: < 130/80 Comments Pharmacist Medication Therapy Management: Minimum frequency patient should be seen in person for medication management: as appropriate per clinical condition and patient status By my signature, I understand that my patient Tony Delong will have his medication therapy managed by the [facility] Medication Therapy Disease Management Clinic ([facility]) per established policies, procedures, and protocols. I also certify that this referral may serve as an initiation of service for the management of drug therapy in the above noted patient. [facility] providers will be responsible for scheduling patient visits, obtaining appropriate laboratory studies, and adjusting medication management therapy per patient's need, in addition to those roles spelled out in the clinic policy, procedures, and drug management protocols. I understand that the service provided by the [facility] Clinic is voluntary and have informed patient that they can refuse the service at their discretion. I am aware that the [facility] Clinic will provide me with a copy of the patient encounter via my [employer] InBasket. I authorize the [facility] to carry out these activities on my behalf. I consider this program to be a necessary part of the patient's medical care. Mikal Covington MD Reason for Visit * Reason Onset Date Comments [facility]: Maintenance 03/24/2024 Encounter Details Date Type Department Care Team (Late st Contact Info) Description 03/24/2024 Telephone [facility], [facility] [address] [place] [phone] Shruti Marquez LPN [address] [place] [address] [facility]: Maintenance Allergies Active Allergy [...] DX: E11.9 300 Strip 3 09/23/2023 Active Qrisj-1-ruzu Ethyl Esters 1 GM Oral Capsule (Lovaza) [...] failure and stage 4 chronic kidney disease ([facility]) Take 4 Tablets by mouth [...] in the Comments) Remote Patient Monitoring Vendor: Navent Device(s): Connected Scale Self - Management Plan [...] 08/18/2017 Last Assessment & Plan: Continues on Marerua Ltdaa 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 Docphin History of tobacco use 08/18/2017 CHAPINCITO on [...] better controlled recently. Monitor using freestyle Cindy. NEMEISO (acute kidney injury) 04/30/2022 Severe obesity [...] yrs 01/04/2018,08/03/2017,07/03 Pneumococcal Conjugate Vacci ne, 20-valent ([id number]) 06/09/2022 Pneumococcal Polysaccharide PPV23 (Pneumovax) 03/06/2020 RSV [...] encounter Miscellaneous Notes * Addendum Note - Mikal Covington MD [...] of cc365 MTM and CC365 FYI Neph tile mason pls ensure f/u per last neph note [...] so all of his info is in Inker[employer] and he's only using 1 vendor JOSE ALFREDO to Tony's Care Team Telephonic ANATOMIC PATHOLOGY MANAGER Pool please work on the following: see above Gregg Mulligan DO Remote Medical Command - [facility] 03/24/2024 Scheduled appointments in the next 60 days: Future Appointments-next 60 days Date/Time Provider Specialty Dept Phone 03/25/2024 12:15 PM CoordinatorMorales [facility] [phone] 04/15/2024 8:30 AM Mery Calderon RDN [facility] [phone] 07/01/2024 2:20 PM (Arrive by 2:05 PM) Igor Mcconnell DO Family Medicine [phone] 07/08/2024 2:20 PM (Arrive by 2:05 PM) Mikal Covington MD Nephrology [phone] 08/08/2024 9:30 AM [place], Nurse [facility] [phone] 10/27/2024 1:00 PM (Arrive by 12:45 PM) Lindsey Sheikh CRNP Sleep Disorders [phone] * Telephone Encounter - Shruti Marquez LPN [...] wt. F/U call scheduled. He will call [facility] with any concerns. Overall risk and identified plan: High risk: Next day follow up call scheduled Route to RNCM (Registered Nurse Estimator And Drafter) and Advance Practitioner Route to RMC (Remote Medical Coordinator) Initiate DTP (Diuretic Titration Protocol) if applicable documented in this encounter Plan of Treatment Upcoming Encounters Date Type Department Care Team (Latest Contact Info) Description 03/25/2024 12:15 PM EDT Scheduled Telephone [facility], [facility] [address] [facility] [place] [address] Coordinator, [facility] [address] [place] [address] 04/15/2024 8:30 AM EDT Scheduled Telephone [facility], [facility] [address] [facility] [place] [address] Mery Calderon RDN [address] [facility] [place] [address] 06/13/2024 11:15 AM EST Hospital Encounter ENDO [facility], Endoscopy Room [facility] [address] [place] [phone] José Miguel Sifuentes MD [address] [place] [address] 06/13/2024 11:15 AM EST - 06/13/2024 11:45 AM EST Surgery ENDO [facility], Endoscopy Room [facility] [place] [phone] José Miguel Sifuentes MD [address] [place] [address] COLONOSCOPY FLEXIBLE PROXIMAL DIAGNOSTIC 07/01/2024 2:20 PM EST Office Visit Family Practice [address] [place] [address] 293 [place] [address] Igor Mcconnell DO 293 [facility] [place] [address] 07/08/2024 2:20 PM EST Office Visit Nephrology, [facility] [address] [facility] [place] [address] Mikal Covington MD [address] [place], [place] [address] 08/08/2024 9:30 AM EST Nurse Only Ancillary [address] [place] [address] [place], Nurse [address] [place] [address] 10/27/2024 1:00 PM EDT [facility] [address] [facility] [place] [phone] Lindsey Sheikh CRNP [address] [facility] [place] [address] Scheduled Procedures Name Priority Associated Diagnoses Date/Ti [...] this encounter Medical Devices Implanted Type Area Snow Plow Operator Device Identifier Shelf Expiration Date Model / Serial / Lot Lens Intraoc 21.0 - [id number] - [id number] Implanted:Qty: 1 on 01/22/2017 by Cheko Mcnamara MD at OR [facility] Right: Eye BAUSCH & LOMB 08/05/2021 [id number] / [id number] / [id number] Lens Intraoc 21.5 - [id number] - [id number] Implanted:Qty: 1 on 02/03/2017 by Cheko Mcnamara MD at OR [facility] Left: Eye BAUSCH & LOMB 09/02/2021 [id number] / [id number] / [id number] documented as of this encounter Visit Diagnoses [...] were consensually agreed upon. Care Teams Sales Coordinator Relationship Specialty Start Date End Date Igor Mcconnell DO [address] [place] [address] PCP - General Internal Medicine 02/12/24 documented as of this encounter
--- OUTSIDE RECORDS SUMMARY | 2024-08-26 02:44 | External Medical Summary | Summary of Care ---
Author Name Unknown Organization [facility] Address [address] [place] [address] Phone [phone] Care Team Providers Care Laborer Cook House Name Role Phone Igor Mcconnell DO Primary Care Provider [phone] Reason for Visit * Reason Comments Dosage Adjustment Via Phone (anticoag Cl inic) Hyperlipidemia Encounter Details Date Type Department Care Team (Late st Contact Info) Description 03/24/2024 2:10 PM EDT Telemedicine Cardiology [facility] [address], [place] [phone] [place] [address], Pharmacist Cardiology [facility] [address], [place] [phone] Mixed dyslipidemia*; Dyslipidemia, goal LDL below 100 [...] DX: E11.9 300 Strip 3 4 Active Vsaqh-4-eawz Ethyl Esters 1 GM Oral Capsule (Lovaza) [...] failure and stage 4 chronic kidney disease ([facility]) Take 4 Tablets by mouth [...] 38 UNITS WITH DINNER PLUS CORRECTION PER [facility] OR DIRECTED UP TO 120 UNITS PER DAY 120 mL 3 4 Active DIURETIC TITRATION PLAN If no improvement on day 3, contact [facility] for possible home visit 1 Each [...] in the Comments) Remote Patient Monitoring Vendor: OpenWhere Device(s): Connected Scale Self - Management Plan [...] 08/18/2017 Last Assessment & Plan: Continues on TakeChargeaza 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 repatha History of [...] yrs 01/04/2018,08/03/2017,07/03 Pneumococcal Conjugate Vacci ne, 20-valent (Gqrkwuk79) 06/09/2022 Pneumococcal Polysaccharide PPV23 (Pneumovax) 03/06/2020 RSV [...] this encounter Progress Notes * Willa Parr, [facility] - 03/24/2024 1:53 PM EDT PCSK-9 Inhibitor Follow Up After connecting to the patient via telephone, the patient was identified by name and date of . Patient was then informed that this was a telephone call only visit. The patient agreed to participate Visit Disposition: Status check/routine follow up Duration: 5 minutes Primary Vice President Underwriting/Ordering Provider: Gilbert Hunter MD HPI: Tony Delong is a 64 year old year old male. History: Dyslipidemia, T2DM, Coronary Calcification, Liver Cirrhosis Target LDL: < 55 Clinical ASCVD/Risk Score: The ASCVD Risk score (Chris DK, et al., 2019) failed to calculate for the following reasons: The patient has a prior KS or stroke diagnosis Patient Active Problem List [...] 12/11/2016 12:00 AM LDL CHOLESTEROL (CALCULATED) - MetabacusER 83 02/12/2024 02:38 PM LDL CHOLESTEROL (CALCULATED) - MetabacusER 152 (H) 01/05/2023 08:27 AM LDL CHOLESTEROL (CALCULATED) - MetabacusER 109 10/23/2022 09:12 AM LDL CHOLESTEROL (DIRECT MEASURE) - MetabacusER 89 07/10/2023 10:57 AM LDL CHOLESTEROL (DIRECT [...] function test in ~10 weeks; prior to MDM telemed appt (ordered) Follow-Up Appointment(s): Pharmacist: Cherie Olivares pharmacist 2 (05/30/24) Physician: No follow up needed Willa Parr [facility] Clinical Pharmacist Cardiology Department 03/24/2024,1:53 PM documented in this encounter Plan of Treatment Upcoming Encounters Date Type Department Care Team (Late st Contact Info) Description 03/25/2024 12:15 PM EDT Scheduled Telephone [facility], [facility] [address] [facility] [place] [address] Coordinator, [facility] [address] [facility] [place] [address] 04/15/2024 8:30 AM EDT Scheduled Telephone [facility], [facility] [address] [facility] [address] Mery Calderon RDN [address] [place] [address] 05/09/2024 1:40 PM EST Office Visit Nephrology, Susan Palacios [address] [place] [address] Shivani Magallon MD [address] [facility] [place] [address] 05/30/2024 1:00 PM EST Telemedicine Cardiology [facility], [place] [address] [place] [address] [place] [address], Pharmacist Cardiology [facility] [address] [place] [facility] [facility] [place] [address] 06/13/2024 11:15 AM EST Hospital Encounter ENDO [facility], Endoscopy Room [facility] [address] [place] [phone] José Miguel Sifuenets MD [address] [place] [address] 06/13/2024 11:15 AM EST - 06/13/2024 11:45 AM EST Surgery ENDO [facility], Endoscopy Room [facility] [address] [place] [phone] José Miguel Sifuentes MD [address] [place] [address] COLONOSCOPY FLEXIBLE PROXIMAL DIAGNOSTIC 07/01/2024 2:20 PM EST Office Visit Family Practice [address] [place] [address] 293 [place] [address] Igor Mcconnell, 293 [place] [address] 08/08/2024 9:30 AM EST Nurse Only Ancillary [address] [place] [address] [place], Nurse [address] [place] [address] 10/27/2024 1:00 PM EDT Office Visit Sleep Disorders Ctr [facility] [address] [place] [phone] Lindsey Sheikh CRNP [address] [place] [address] Scheduled Orders Name Type Priority Associated Diagnoses [...] this encounter Medical Devices Implanted Type Area Pilot Teacher Device Identifier Shelf Expiration Date Model / Serial / Lot Lens Intraoc 21.0 - [id number] - [id number] Implanted:Qty: 1 on 01/22/2017 by Cheko Mcnamara MD at OR [facility] Right: Eye BAUSCH & LOMB 08/05/2021 [id number] / [id number] / [id number] Lens Intraoc 21.5 - [id number] - [id number] Implanted:Qty: 1 on 02/03/2017 by Cheko Mcnamara MD at OR [facility] Left: Eye BAUSCH & LOMB 09/02/2021 [id number] / [id number] / [id number] documented as of this encounter Visit Diagnoses [...] and were consensually agreed upon. Care Teams Laborer Cook House Relationship Specialty Start Date End Date Igor Mcconnell DO [address] [place] [address] PCP - General Internal Medicine 02/12/24 documented as of this encounter
--- OUTSIDE RECORDS SUMMARY | 2024-08-26 02:44 | External Medical Summary | Summary of Care ---
Author Name Unknown Organization [facility] Address [address] [facility] [place] [address] Phone [phone] Care Team Providers Care Data Processing Mechanic Name Role Phone Igor Mcconnell DO Primary Care Provider [phone] Encounter Details Date Type Department Care Team (Late st Contact Info) Description 03/24/2024 Telephone Cardiology, [place] [address] [facility] [place] [phone] [facility] [address] [facility] [place] [phone] Allergies Active Allergy Reactions Criticality Noted Date [...] DX: E11.9 300 Strip 3 09/23/2023 Active Kzfug-3-xdhf Ethyl Esters 1 GM Oral Capsule (Lovaza) [...] long-term current use of insulin ([facility]) Inject 2 mg under the skin [...] goal of less than 7.0% ([facility]) INJECT UNDER THE SKIN 20 UNITS AT BREAKFAST, 26 UNITS AT LUNCH, 38 UNITS WITH DINNER PLUS CORRECTION PER [facility] OR DIRECTED UP TO 120 UNITS PER DAY 120 mL 3 03/21/2024 Active DIURETIC TITRATION PLAN If no improvement on day 3, contact [facility] for possible home visit 1 [...] yrs 01/04/2018,08/03/2017,07/03 Pneumococcal Conjugate Vacci ne, 20-valent (Faazaxo00) 06/09/2022 Pneumococcal Polysaccharide PPV23 (Pneumovax) 03/06/2020 RSV [...] your input! Kaylynn Goldstein Pharm D Clinical [facility] Pharmacist Cardiology 03/24/2024,10:03 AM documented in this encounter Plan of Treatment Upcoming Encounters Date Type Department Care Team (Late st Contact Info) Description 03/25/2024 12:15 PM EDT Scheduled Telephone [facility], [facility] [address] [place] [address] Coordinator, [facility] 132 [place] [address] 04/15/2024 8:30 AM EDT Scheduled Telephone [facility], [facility] [address] [place] [address] Mery Calderon RDN [address] [place] [address] 05/09/2024 1:40 PM EST Office Visit Nephrology, Susan Palacios 200 [facility] [place] [address] Shivani Magallon MD 200 [facility] [place] [address] 05/30/2024 1:00 PM EST Telemedicine Cardiology [facility] [place] [address] [place] [address] [place] [address], Pharmacist Cardiology [facility] [address] [place], [place] [phone] 06/13/2024 11:15 AM EST Hospital Encounter [facility]O [facility], Endoscopy Room [facility] 132 [facility] [place] [phone] José Miguel Sifuentes MD 132 [facility] [place] [address] 06/13/2024 11:15 AM EST - 06/13/2024 11:45 AM EST Surgery ENDO [facility], Endoscopy Room [facility] 132 [facility] [place] [phone] José Miguel Sifuentes MD 132 [facility] [place] [address] COLONOSCOPY FLEXIBLE PROXIMAL DIAGNOSTIC 07/01/2024 2:20 PM EST Office Visit Family Practice [address] [place] [address] 293 [place] [address] Igor Mcconnell, 293 [place] [address] 08/08/2024 9:30 AM EST Nurse Only Ancillary [address] [place] [address] [place], Nurse [address] [place] [address] 10/27/2024 1:00 PM EDT [facility] [address] [place] [phone] Lindsey Sheikh CRNP [address] [place] [address] Scheduled Procedures Name Priority Associated Diagnoses Date/Ti [...] encounter Medical Devices Implanted Type Area Medical Coding Manager Device Identifier Shelf Expiration Date Model / Serial / Lot Lens Intraoc 21.0 - [id number] - [id number] Implanted:Qty: 1 on 01/22/2017 by Cheko Mcnamara MD at OR [facility] Right: Eye BAUSCH & LOMB 08/05/2021 [id number] / [id number] / [id number] Lens Intraoc 21.5 - [id number] - [id number] Implanted:Qty: 1 on 02/03/2017 by Cheko Mcnamara MD at OR [facility] Left: Eye BAUSCH & LOMB 09/02/2021 [id number] / [id number] / [id number] documented as of this encounter Advance Directives [...] and were consensually agreed upon. Care Teams Data Processing Mechanic Relationship Specialty Start Date End Date Igor Mcconnell DO [address] [place] [address] PCP - General Internal Medicine 02/12/24 documented as of this encounter
--- OUTSIDE RECORDS SUMMARY | 2024-08-26 02:45 | External Medical Summary | Summary of Care ---
Author Name Unknown Organization [facility] Address [address] [facility] [place] [address] Phone [phone] Care Team Providers Care Recording Studio Intern Name Role Phone Igor Mcconnell DO Primary Care Provider [phone] Reason for Visit * Reason Onset Date Comments [facility]: Maintenance 03/16/2024 Encounter Details Date Type Department Care Team (Late st Contact Info) Description 03/16/2024 Telephone [facility], [place] [address] [place], [place] [address] [address] Christy Choudhury, BANDAGE MAKER [address] [facility] [place] [address] [facility]: Maintenance Allergies Active Allergy Reactions Criticality Noted Date Comments Metolazone Renal complications 11/10/2023 Note prior DTP with metolazone resulted in acute renal failure Other Allergy (See Comments) Rash Low 10/13/2022 1+ cocamidopropyl betaine Sglt2 Inhibitors Other (Please comment) High 09/04/2020 Genital infection Sulfa Antibiotics Rash 10/15/2016 documented as of this encounter (statuses as of 03/16/2024) Medications Medication Sig Dispensed Refills Start Date [...] least 1 hour after other medications Active NovoLOG FlexPen 100 UNIT/ML Subcutaneous Solution Pen-injectorIndicati ons:Type 2 diabetes mellitus with hemoglobin A1c goal of less than 7.0% (HCC) INJECT UNDER THE SKIN 26 UNITS AT BREAKFAST, 26 UNITS AT LUNCH, 32 UNITS WITH DINNER PLUS CORRECTION PER [facility] OR DIRECTED UP TO 120 UNITS PER DAY 120 mL 3 12/18/2022 4 Active BD Pen Needle Short U/F [...] DX: E11.9 300 Strip 3 09/23/2023 Active Cauvp-2-nhrj Ethyl Esters 1 GM Oral Capsule (Lovaza) [...] ([facility]) INJECT UNDER THE SKIN 100 UNITS TWICE DAILY OR DIRECTED 90 mL 3 01/18/2024 5 Active Additional Information Patient taking differently: 90 Units Subcutaneous BID(Non-Specified), Reported on 02/12/2024 Torsemide 20 MG Oral Tablet (Demadex)Indications :Chronic heart failure with preserved ejection fraction ([facility]),Hypertensive heart and kidney disease with [...] a day 90 g 1 03/02/2024 Active Allopurinol 100 MG Oral Tablet (Zyloprim) Take 2 Tablets by mouth in the morning. 60 Tablet 3 03/03/2024 Active predniSONE 5 MG Oral Tablet (Deltasone) [...] as of this encounter (statuses as of 03/16/2024) Active Problems Patient Care Coordination No te [...] in the Comments) Remote Patient Monitoring Vendor: Sitefly Device(s): Connected Scale Self - Management Plan [...] 08/18/2017 Last Assessment & Plan: Continues on Gojiaza 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 Ynvisiblea History of tobacco use 08/18/2017 CHAPINCITO on [...] as of this encounter (statuses as of 03/16/2024) Resolved Problems Problem Noted Date Diagnosed Date [...] as of this encounter (statuses as of 03/16/2024) Immunizations Name Administration Dates Next Due COVID-19 mRNA, LNP-s, No Pre serve, 2-Dose Series (Moderna) 12/10/2020,11/12/2020 Hepatitis B, 20+ yrs 01/04/2018,08/03/2017,07/03 Pneumococcal Conjugate Vacci ne, 20-valent ([id number]) 06/09/2022 Pneumococcal Polysaccharide PPV23 (Pneumovax) 03/06/2020 RSV [...] Telephone Encounter - Christy Choudhury LPN - 03/16/2024 10:17 AM EDT Images from the original note were not included. Has appt with RNC[facility] today FYI weights documented in this encounter Plan of Treatment Upcoming Encounters Date Type Department Care Team (Latest Contact Info) Description 03/16/2024 4:00 PM EDT [facility] Visit [facility], [place] [facility] [place] [address] Love Stevens RN [address] [place] [address] 04/15/2024 8:30 AM EDT Scheduled Telephone [facility], [facility] [address] [facility] [place] [address] Mery Calderon RDN [address] [facility] [place] [address] 06/13/2024 11:15 AM EST Hospital Encounter ENDO OSSC, Endoscopy Room OSS 132 [facility] [place] [phone] José Miguel Sifuentes MD 132 [facility] [address] 06/13/2024 11:15 AM EST - 06/13/2024 11:45 AM EST Surgery ENDO [facility], Endoscopy Room [facility] 132 [facility] [place] [phone] José Miguel Sifuentes MD 132 [facility] [place] [address] COLONOSCOPY FLEXIBLE PROXIMAL DIAGNOSTIC 07/01/2024 2:20 PM EST Office Visit Family Practice [address] [facility], [place] 293 [place] [address] Igor Mcconnell DO 293 [place] [address] 07/08/2024 2:20 PM EST Office Visit Nephrology, [facility] [address] [place] [address] Shivani Magallon MD [address] [place], [place] [address] 08/08/2024 9:30 AM EST Nurse Only Ancillary Lazaro Hyde [address] [place] [address] Osito Nurse [address] [place] [address] 10/27/2024 1:00 PM EDT Office Visit Sleep Disorders Ctr [facility] [address] [place] [phone] Lindsey Sheikh CRNP [address] [place] [address] Scheduled Procedures Name Priority Associated Diagnoses Date/Ti [...] ASSESSMENT COMPLETED IN PAST YEAR FOR COPD 03/11/2025 03/11/2024 Arreola's Esophagus Surveilance 06/16/2025 06/16/2022, 06/16/2022, 03/20/2022, [...] Medical Devices Implanted Type Area Director Of Cardiology Device Identifier Shelf Expiration Date Model / Serial / Lot Lens Intraoc 21.0 - [id number] - [id number] Implanted:Qty: 1 on 01/22/2017 by Cheko Mcnamara MD at [facility] Right: Eye BAUSCH & LOMB 08/05/2021 [id number] / [id number] / [id number] Lens Intraoc 21.5 - [id number] - [id number] Implanted:Qty: 1 on 02/03/2017 by NaimaCheko colon MD at OR [facility] Left: Eye BAUSCH & LOMB 09/02/2021 [id number] / [id number] / [id number] documented as of this encounter Advance Directives [...] and were consensually agreed upon. Care Teams Recording Studio Intern Relationship Specialty Start Date End Date Igor Mcconnell DO 293 [place] [address] PCP - General Internal Medicine 02/12/24 documented as of this encounter
--- OUTSIDE RECORDS SUMMARY | 2024-08-26 02:45 | External Medical Summary | Summary of Care ---
Author Name Unknown Organization [facility] Address [address] [facility] [place] [address] Phone [phone] Care Team Providers Care Foundation Drill Operator Name Role Phone Igor Mcconnell DO Primary Care Provider [phone] Reason for Referral * Evaluate & Treat - Unlimited Visits (Within 10 days (routine)) - Authorized Specialty Diagnoses / Procedures Referred By Christin fernandez Referred To Contact Crisis Intervention Specialist Diagnoses Chronic heart failure with preserved ejection fraction (HCC) Love Stevens RN [address] [place] [address] Referral ID Status Reason Start Date Expiration Date Visits Requested Visits Authorized [id number] Authorized Specialty Services Required 03/16/2024 999 999 Question Answer Referral Priority Within 10 days (routine) Program Type [facility] Current Health Device(s) Requested Scale Where should this appointment be scheduled? External - home Alarm Settings Standard per protocol Comments Current Health Monitor Ordering Form: Method of Delivery: Mail Delivery: "The kit will be mailed to you directly. It includes simplified instructions for set up and use. Please contact us if you're having difficulty." Enrollment Diagnosis: Congestive Heart Failure Anticipated Duration: > 30 days Responsible Program: [facility] Encounter Details Date Type Department Care Team (Late Contact Info) Description 03/16/2024 4:00 PM EDT Home Visit [facility], [facility] [address] [place] [address] Love Stevens RN [address] [place] [address] Chronic heart failure with preserved ejection fraction (HCC)* Allergies Active Allergy Reactions Criticality Noted Date Comments Metolazone Renal complications 11/10/2023 Note prior DTP with metolazone resulted in acute renal failure Other Allergy (See Comments) Rash Low 10/13/2022 1+ cocamidopropyl betaine Sglt2 Inhibitors Other (Please comment) High 09/04/2020 Genital infection Sulfa Antibiotics Rash 10/15/2016 documented as of this encounter (statuses as of 03/18/2024) Medications Medication Sig Dispensed Refills Start Date [...] 32 UNITS WITH DINNER PLUS CORRECTION PER [facility] OR DIRECTED UP TO 120 UNITS PER DAY 120 mL 3 3 04/14/20 24 Active BD Pen Needle Short U/F [...] DX: E11.9 300 Strip 3 4 Active Etpoj-8-zmua Ethyl Esters 1 GM Oral Capsule (Lovaza) [...] before bedtime. 180 Tablet 3 4 Active Clotrimazole-Betam ethasone 1-0.05 [...] before March 14, 2024. 4 Active Allopurinol 100 MG Oral Tablet (Zyloprim) Take 2 Tablets by mouth in the morning. 60 Tablet 3 4 09/12/20 24 Discontinued documented as of this encounter (statuses as of 03/18/2024) Active Problems Patient Care Coordination No te [...] in the Comments) Remote Patient Monitoring Vendor: Panviva Device(s): Connected Scale Self - Management Plan [...] 08/18/2017 Last Assessment & Plan: Continues on Prosettaa 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 [employer] History of tobacco use 08/18/2017 CHAPINCITO on [...] as of this encounter (statuses as of 03/18/2024) Resolved Problems Problem Noted Date Diagnosed Date [...] as of this encounter (statuses as of 03/18/2024) Immunizations Name Administration Dates Next Due COVID-19 mRNA, LNP-s, No Pre serve, 2-Dose Series (Moderna) 12/10/2020,11/12/2020 Hepatitis B, 20+ yrs 01/04/2018,08/03/2017,07/03 Pneumococcal Conjugate Vacci ne, 20-valent (Mahtfsr25) 06/09/2022 Pneumococcal Polysaccharide PPV23 (Pneumovax) 03/06/2020 RSV [...] Reading Time Taken Comments Blood Pressure 124/60 03/16/2024 2:50 PM EDT Pulse 72 03/16/2024 2:50 PM EDT Temperature 37.2 C (98.9 F) 03/16/2024 2:50 PM ED T Respiratory Rate 18 03/16/2024 2:50 PM EDT Oxygen Saturation 95% 03/16/2024 2:50 PM EDT Inhaled Oxygen Concentration - - Weight 124.2 kg (273 lb 14.4 oz) 03/16/2024 2:50 PM EDT Height - - Body Mass Index 37.15 03/01/2024 2:23 PM EDT documented in this encounter Progress Notes * Love Stevens RN - 03/16/2024 2:46 PM EDT Images from the original note were not included. Current Concerns: Patient seen for follow up- CKD4, CHF, COPD, CHAPINCITO, DM2 Recent cardiology appointment- Prednisone burst ordered, Torsemide 40mg BID x 3 days. Uric acid level- 9/- 10.2 Reports prednisone is effective for pain but is down to 2/day PCP consulted nephrology regarding potential increase of Allopurinol. Weight- see below. VS wnl Lungs clear but diminished Sob with exertion No LE edema Voiding without difficulty Bowels wnl- per report Appetite good Taking fluids well. Physical Exam: [...] Gastrointestinal: Negative. Genitourinary: Negative. Musculoskeletal: Positive for arthralgias. Skin: Negative. Neurological: Negative. Hematological: Negative. Psychiatric/Behavioral: [...] Start: 03/16/24 Expected End: 05/16/24 Orders Placed: Plan Remote Patient Monitoring Referral Care Gaps: documented in this encounter Plan of Treatment Upcoming Encounters Date Type Department Care Team (Latest Contact Info) Description 04/15/2024 8:30 AM EDT Scheduled Telephone [facility], [facility] [address] [facility] [place] [address] Mery Calderon RDN [address] [facility] [place] [address] 06/13/2024 11:15 AM EST Hospital Encounter ENDO OSSC, Endoscopy Room [facility] [address] [place] [phone] José Miguel Sifuentes MD [address] [place] [address] 06/13/2024 11:15 AM EST - 06/13/2024 11:45 AM EST Surgery ENDO OSSC, Endoscopy Room [facility] [address] [place] [phone] José Miguel Sifuentes MD [address] [place] [address] COLONOSCOPY FLEXIBLE PROXIMAL DIAGNOSTIC 07/01/2024 2:20 PM EST Office Visit Family Practice [address], [place] 293 [facility] [place] [address] Igor Mcconnell, 293 [place] [address] 07/08/2024 2:20 PM EST Office Visit Nephrology, [facility] 200 [facility] [place] [address] Shivani Magallon MD 200 [facility] [place] [address] 08/08/2024 9:30 AM EST Nurse Only Ancillary [address] [place] [address] [place], Nurse [address] [place] [address] 10/27/2024 1:00 PM EDT [facility] [address] Lindsey Sheikh CRNP 132 [place] [address] Scheduled Procedures Name Priority Associated Diagnoses Date/Ti me COLONOSCOPY FLEXIBLE PROXIMA L DIAGNOSTIC Recall Special screening for malignant neoplasms, colon 06/13/2024 11:15 AM EST ESOPHAGOGASTRODUODENOSCOPY ( EGD), FLEXIBLE, TRANSORAL, DIAGNOSTIC Recall Arreola's esophagus with dysplasia Scheduled Referrals Name Type Priority Associated Diagnoses Orde r Schedule REMOTE PATIENT MONITORING REFERRAL Referral Within 10 days (routine) Chronic heart failure with preserved ejection fraction (HCC) Ordered: 03/16/2024 Health Maintenance Due Date Last Done Comments [...] this encounter Medical Devices Implanted Type Area Fuselage Framer Device Identifier Shelf Expiration Date Model / Serial / Lot Lens Intraoc 21.0 - [id number] - [id number] Implanted:Qty: 1 on 01/22/2017 by Cheko Mcnamara MD at OR [facility] Right: Eye BAUSCH & LOMB 08/05/2021 [id number] / [id number] / [id number] Lens Intraoc 21.5 - [id number] - [id number] Implanted:Qty: 1 on 02/03/2017 by Cheko Mcnamara MD at OR [facility] Left: Eye BAUSCH & LOMB 09/02/2021 [id number] / [id number] / [id number] documented as of this encounter Visit Diagnoses [...] and were consensually agreed upon. Care Teams Foundation Drill Operator Relationship Specialty Start Date End Date Igor Mcconnell DO [address] [place] [address] PCP - General Internal Medicine 02/12/24 documented as of this encounter
--- OUTSIDE RECORDS SUMMARY | 2024-08-26 02:45 | External Medical Summary | Summary of Care ---
Author Name Unknown Organization [facility] Address [address] [place] [address] Phone [phone] Care Team Providers Care Contact Finger Assembler Name Role Phone Igor Mcconnell DO Primary Care Provider [phone] Reason for Visit * Reason Onset Date Comments Test Results 03/17/202403/17 Encounter Details Date Type Department Care Team (Late st Contact Info) Description 03/17/2024 Telephone Family Practice 65 [facility], [place] 293 [place] [address] Igor Mcconnell DO 293 [place] [address] Test Results (03/17) Allergies Active Allergy Reactions Criticality Noted Date Comments Metolazone Renal complications 11/10/2023 Note prior DTP with metolazone resulted in acute renal failure Other Allergy (See Comments) Rash Low 10/13/2022 1+ cocamidopropyl betaine Sglt2 Inhibitors Other (Please comment) High 09/04/2020 Genital infection Sulfa Antibiotics Rash 10/15/2016 documented as of this encounter (statuses as of 03/17/2024) Medications Medication Sig Dispensed Refills Start Date [...] DX: E11.9 300 Strip 3 4 Active Qsjpd-4-jalc Ethyl Esters 1 GM Oral Capsule (Lovaza) [...] less than 7.0% ([facility]) INJECT UNDER THE SKIN 100 UNITS TWICE DAILY OR DIRECTED 90 mL 3 4 01/18/20 25 Active Additional Information Patient taking differently: 90 Units Subcutaneous BID(Non-Specified), Reported on 02/12/2024 Torsemide 20 MG Oral Tablet (Demadex)Indicatio ns:Chronic heart failure with preserved ejection fraction ([facility]),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 disease ([facility]) Take 4 Tablets by mouth in [...] long-term current use of insulin ([facility]) Inject 2 mg under the skin [...] the morning. 100 Tablet 3 4 Active Allopurinol 100 MG Oral Tablet (Zyloprim) Take 2 Tablets by mouth in the morning. 60 Tablet 3 4 03/17/20 24 Discontinued documented as of this encounter (statuses as of 03/17/2024) Active Problems Patient Care Coordination No te [...] Continues on lovaza 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 [employer] History of tobacco use 08/18/2017 CHAPINCITO [...] as of this encounter (statuses as of 03/17/2024) Resolved Problems Problem Noted Date Diagnosed Date [...] as of this encounter (statuses as of 03/17/2024) Immunizations Name Administration Dates Next Due COVID-19 mRNA, LNP-s, No Pre serve, 2-Dose Series (Moderna) 12/10/2020,11/12/2020 Hepatitis B, 20+ yrs 01/04/2018,08/03/2017,07/03 Pneumococcal Conjugate Vacci ne, 20-valent (Sgragma70) 06/09/2022 Pneumococcal Polysaccharide PPV23 (Pneumovax) 03/06/2020 RSV [...] Telephone Encounter - Zulema Frazier LPN - 03/17/2024 2:17 PM EDT Patient is aware and will comply. Thank you * Telephone Encounter - Zulema Frazier LPN - 03/17/2024 2:13 PM EDT ----- Message from Igor Mcconnell DO sent at 03/16/2024 7:32 PM EDT ----- Uric acid is still up Increase Allopurinol to 300 mg daily Repeat Uric acid level in 2 weeks documented in this encounter Plan of Treatment Upcoming Encounters Date Type Department Care Team (Latest Contact Info) Description 04/15/2024 8:30 AM EDT Scheduled Telephone [facility], [facility] [address] [facility] [place] [address] Mery Calderon RDN [address] [facility] [place] [address] 06/13/2024 11:15 AM EST Hospital Encounter ENDO OSSC, Endoscopy Room OSS [address] [place] [address] José Miguel Sifuentes MD [address] [place] [address] 06/13/2024 11:15 AM EST - 06/13/2024 11:45 AM EST Surgery ENDO O[facility]C, Endoscopy Room [facility] [address] [place] [phone] José Miguel Sifuentes MD [address] [place] [address] COLONOSCOPY FLEXIBLE PROXIMAL DIAGNOSTIC 07/01/2024 2:20 PM EST Office Visit Family Practice [address] [facility] [place] 293 [place] [address] Igor Mcconnell DO 293 [place] [address] 07/08/2024 2:20 PM EST Office Visit Nephrology, [facility] 200 [place] [address] Shivani Magallon MD [address] [place], [place] [address] 08/08/2024 9:30 AM EST Nurse Only Ancillary Lazaro Hyde[address] [place] [address] [place], Nurse [address] [place] [address] 10/27/2024 1:00 PM EDT Office Visit Sleep Disorders Ctr [facility] [place] [address] [place] [address] Lindsey Sheikh CRNP [address] [place] [address] Scheduled Orders Name Type Priority Associated Diagnoses Orde r Schedule URIC ACID Lab Routine Gout, arthropathy Expected: 03/31/2024 (Approximate), Expires: 03/17/2025 Scheduled Procedures Name Priority Associated Diagnoses Date/Ti [...] encounter Medical Devices Implanted Type Area Wire Roller Device Identifier Shelf Expiration Date Model / Serial / Lot Lens Intraoc 21.0 - [id number] - [id number] Implanted:Qty: 1 on 01/22/2017 by Cheko Mcnamara MD at OR [facility] Right: Eye BAUSCH & LOMB 08/05/2021 [id number] / [id number] / [id number] Lens Intraoc 21.5 - [id number] - [id number] Implanted:Qty: 1 on 02/03/2017 by Cheko Mcnamara MD at OR [facility] Left: Eye BAUSCH & LOMB 09/02/2021 [id number] / [id number] / [id number] documented as of this encounter Visit Diagnoses Diagnosis Gout, arthropathy- Primary Gouty arthropathy, unspecified Special screening for malignant neoplasms, colon documented [...] and were consensually agreed upon. Care Teams Contact Finger Assembler Relationship Specialty Start Date End Date Igor Mcconnell DO [address] [place] [address] PCP - General Internal Medicine 02/12/24 documented as of this encounter
--- OUTSIDE RECORDS SUMMARY | 2024-08-26 02:45 | External Medical Summary | Summary of Care ---
Author Name Unknown Organization [facility] Address [address] [place] [address] Phone [phone] Care Team Providers Care Bell Hole Digger Name Role Phone Igor Mcconnell DO Primary Care Provider [phone] Reason for Visit * Reason Onset Date Comments Home Monitoring Orders Only 03/17/2024 Encounter Details Date Type Department Care Team (Late st Contact Info) Description 03/17/2024 Home Monitoring Family Practice [address], [place] [address] [place] [phone] Igor Mcconnell DO [address] [place] [address] Chronic heart failure with preserved ejection fraction [...] UNITS WITH DINNER PLUS CORRECTION PER [facility] OR DIRECTED UP TO [...] DX: E11.9 300 Strip 3 09/23/2023 Active Hrqkb-7-rlmg Ethyl Esters 1 GM Oral Capsule (Lovaza) [...] [facility]) INJECT UNDER THE SKIN 100 UNITS TWICE DAILY OR DIRECTED 90 mL 3 01/18/2024 5 Active Additional Information Patient taking differently: 90 Units Subcutaneous BID(Non-Specified), Reported on 02/12/2024 Torsemide 20 MG Oral Tablet (Demadex)Indications :Chronic heart failure with preserved ejection fraction ([facility]),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 Or take as directed. 240 Tablet 01/22/2024 Active Additional Information Patient taking differently:80 [...] the skin once a week. 2 mL 02/16/2024 Active Potassium Chloride [facility] 20 [...] in the Comments) Remote Patient Monitoring Vendor: [employer] Device(s): Connected Scale Self - Management Plan Double dose of Torsemide for 3 days Exacerbation Plan BMP Chest X-Ray Additional Comments: Recommended using double torsemide for 3 days in a row, rather than 1 day like he has been doing Continue using [employer] scale Low sodium diet Type 2 diabetes [...] yrs 01/04/2018,08/03/2017,07/03 Pneumococcal Conjugate Vacci ne, 20-valent ([id number]) 06/09/2022 Pneumococcal Polysaccharide PPV23 (Pneumovax) 03/06/2020 RSV [...] of this encounter Progress Notes * Bárbara Vallejo, [place] - 03/17/2024 7:03 AM EDT Patient has been successfully enrolled to the [id number] [facility] program and will be provided with the Current Health Wearable device to facilitate their participation in remote monitoring: Scale Only Patient has been oriented to remote patient monitoring by their Guest Services Coordinator. The case monitor has also provided the patient with instruction and education regarding the program. Current health to assist with initial device set-up. Delivery Method: Vendor supplied Patient understands that this monitoring should not be used as a replacement for emergency and/or urgent care. If patient experiences any urgent symptoms, they are aware to call their manager market development for additional instructions. In emergency situations, they will either call 911 or report directly to the ED for further evaluation. documented in this encounter Plan of Treatment Upcoming Encounters Date Type Department Care Team (Latest Contact Info) Description 04/15/2024 8:30 AM EDT Scheduled Telephone [facility], [facility] [address] [facility] [place] [address] Mery Calderon RDN [address] [facility] [place] [address] 06/13/2024 11:15 AM EST Hospital Encounter ENDO OSSC, Endoscopy Room [facility] [address] [facility] [place] [phone] José Miguel Sifuentes MD [address] [facility] [place] [address] 06/13/2024 11:15 AM EST - 06/13/2024 11:45 AM EST Surgery ENDO OSSC, Endoscopy Room [facility] [address] [facility] [place] [phone] José Miguel Sifuentes MD [address] [place] [address] COLONOSCOPY FLEXIBLE PROXIMAL DIAGNOSTIC 07/01/2024 2:20 PM EST Office Visit Family Practice 65 [facility], [place] [address] [place] [address] Igor Mcconnell DO 293 [facility] [place] [address] 07/08/2024 2:20 PM EST Office Visit Nephrology, Susan Palacios [address] [place] [address] Shivani Magallon MD [address] [place] [address] 08/08/2024 9:30 AM EST Nurse Only Ancillary Lazaro Hyde[address] [place] [address] [place], Nurse [address] [place] [address] 10/27/2024 1:00 PM EDT Office Visit Sleep Disorders Ctr Maximiliano Vega [place] [address] [place] [phone] Lindsey Sheikh CRNP [address] [place] [address] Scheduled Procedures Name Priority Associated Diagnoses Date/Ti [...] this encounter Medical Devices Implanted Type Area Parking Line Painter Device Identifier Shelf Expiration Date Model / Serial / Lot Lens Intraoc 21.0 - [id number] - [id number] Implanted:Qty: 1 on 01/22/2017 by Cheko Mcnamara MD at [facility] Right: Eye [employer] 08/05/2021 [id number] / [id number] / [id number] Lens Intraoc 21.5 - [id number] - [id number] Implanted:Qty: 1 on 02/03/2017 by Cheko Mcnamara MD at OR [facility] Left: Eye [employer] 09/02/2021 [id number] / [id number] / [id number] documented as of this encounter Visit Diagnoses [...] and were consensually agreed upon. Care Teams Bell Hole Digger Relationship Specialty Start Date End Date Igor Mcconnell DO [address] [place] [address] PCP - General Internal Medicine 02/12/24 documented as of this encounter
--- OUTSIDE RECORDS SUMMARY | 2024-08-26 02:46 | External Medical Summary | Summary of Care ---
Author Name Unknown Organization [facility] Address [address] [facility] [place] [address] Phone [phone] Care Team Providers Care Supplier Manager Name Role Phone Igor Mcconnell DO Primary Care Provider [phone] Reason for Visit * Reason Comments Dosage Adjustment Via Phone (anticoag Cl inic) Diabetes Follow-Up Encounter Details Date Type Department Care Team (Late st Contact Info) Description 03/10/2024 11:30 AM EDT Telemedicine Family Practice [address] [address] [place], Pharmacist [address] [address] Type 2 diabetes mellitus with hemoglobin A1c goal of less than 8.0% ([facility])* Allergies Active Allergy Reactions Criticality Noted Date [...] WITH DINNER PLUS CORRECTION PER [facility] OR DIRECTED UP TO [...] DX: E11.9 300 Strip 3 09/23/2023 Active Aembk-0-bnoi Ethyl Esters 1 GM Oral Capsule (Lovaza) [...] days then stop. 10 Tablet 03/03/2024 Active documented as of this encounter (statuses [...] in the Comments) Remote Patient Monitoring Vendor: [employer] Device(s): Connected Scale Self - Management [...] yrs 01/04/2018,08/03/2017,07/03 Pneumococcal Conjugate Vacci ne, 20-valent ([id number]) 06/09/2022 Pneumococcal Polysaccharide PPV23 (Pneumovax) 03/06/2020 RSV Vac., Bivalent, Perfusio n F, Pf,0.5 Ml (Abrysvo) 02/12/2024 Seasonal Influenza, PF, 6 M & above, [...] encounter Progress Notes * Delia Angulo, [facility] - 03/10/2024 12:58 PM EDT Images from the original note were not included. Diabetes telephone follow - up 03/10/2024 Patient Phone Numbers - Reason for contacting patient: Following up with patient on recent sugars since restarting Ozempic. - Current diabetic medications: Restart Ozempic 2mg weekly (cordell nordisk) via titration Tresiba (U200) 90 units twice daily Novolog 26 units with breakfast, 26 units with lunch, 38 units with dinner + CF 1:15 over 150 - Glucose review/ SMBG: Therapy Management Assessment/Plan: 1) Diabetes:Patient reports tolerating ozempic restart but sugars still running high later in the day. Will continue with the increase in Tresiba he already made but decrease his novolog. Increase Ozempic 2mg weekly (cordell nordisk) via titration Increase Tresiba (U200) 100 units twice daily Decrease Novolog 20 units with breakfast, 26 units with lunch, 38 units with dinner + CF 1:15 over 150 Follow up in 2 weeks or sooner as needed. Delia Diaz [facility], Pharm D Clinical Pharmacist Medication Therapy Management [facility] 03/10/2024, 12:59 PM documented in this encounter Plan of Treatment Upcoming Encounters Date Type Department Care Team (Latest Contact Info) Description 03/16/2024 4:00 PM EDT Home Visit [facility], [facility] [address] [place] [address] Love Stevens, RN [address] [place] [address] 04/15/2024 8:30 AM EDT Scheduled Telephone [facility], [facility] [address] [facility] [place] [address] Mery Calderon RDN [address] [facility] [place] [address] 06/13/2024 11:15 AM EST Hospital Encounter ENDO OSSC, Endoscopy Room [facility] [address] [place] [phone] José Miguel Sifuentes MD [address] [place] [address] 06/13/2024 11:15 AM EST - 06/13/2024 11:45 AM EST Surgery ENDO OSSC, Endoscopy Room [facility] [address] [place] [phone] José Miguel Sifuentes MD [address] [place] [address] COLONOSCOPY FLEXIBLE PROXIMAL DIAGNOSTIC 07/01/2024 2:20 PM EST Office Visit Family Practice [address], [place] [address] [facility] [place] [address] Igor Mcconnell, 293 [facility] [address] 07/08/2024 2:20 PM EST Office Visit Nephrology, [facility] [address] [place] [address] Shivani Magallon MD [address] [place] [address] 08/08/2024 9:30 AM EST Nurse Only Ancillary [address] [place] [address] [place], Nurse [address] [place] [address] 10/27/2024 1:00 PM EDT Office Visit Sleep Disorders Ctr Maximiliano [facility] [address] [facility] [place] [phone] Lindsey Sheikh CRNP [address] [facility] [address] Scheduled Procedures Name Priority Associated Diagnoses Date/Ti [...] encounter Medical Devices Implanted Type Area Trade Specialist Device Identifier Shelf Expiration Date Model / Serial / Lot Lens Intraoc 21.0 - [id number] - [id number] Implanted:Qty: 1 on 01/22/2017 by Cheko Mcnamara MD at OR [facility] Right: Eye [employer] 08/05/2021 [id number] / [id number] / [id number] Lens Intraoc 21.5 - [id number] - [id number] Implanted:Qty: 1 on 02/03/2017 by Cheko Mcnamara MD at OR [facility] Left: Eye [employer] 09/02/2021 [id number] / [id number] / [id number] documented as of this encounter Visit Diagnoses [...] and were consensually agreed upon. Care Teams Supplier Manager Relationship Specialty Start Date End Date Igor Mcconnell DO [address] [place] [address] PCP - General Internal Medicine 02/12/24 documented as of this encounter
--- OUTSIDE RECORDS SUMMARY | 2024-08-26 02:46 | External Medical Summary | Summary of Care ---
Author Name Unknown Organization [facility] Address [address] [facility] [address] Phone [phone] Care Team Providers Care Analog Device Designer Name Role Phone Raquel Mcconnell DO Primary Care Provider [phone] Reason for Visit * Reason Comments Return Visit Chronic Kidney Disease (CKD) Hypertension Encounter Details Date Type Department Care Team (Late st Contact Info) Description 03/03/2024 2:20 PM EDT Office Visit Nephrology, Susan Palacios [address] [facility] [place] [address] Shivani Magallon MD [address] [facility] [place] [address] 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)*; Other hypervolemia; History of acute renal failure; Albuminuria; Arthralgia, unspecified joint; Hyperuricemia Allergies Active Allergy Reactions Criticality Noted Date Comments Metolazone Renal complications 11/10/2023 Note prior DTP with metolazone resulted in acute renal failure Other Allergy (See Comments) Rash Low 10/13/2022 1+ cocamidopropyl betaine Sglt2 Inhibitors Other (Please comment) High 09/04/2020 Genital infection Sulfa Antibiotics Rash 10/15/2016 documented as of this encounter (statuses as of 03/04/2024) Medications Medication Sig Dispensed Refills Start Date [...] 32 UNITS WITH DINNER PLUS CORRECTION PER [facility] OR DIRECTED UP TO [...] DX: E11.9 300 Strip 3 4 Active Byuka-3-hiqm Ethyl Esters 1 GM Oral Capsule (Lovaza) [...] goal of less than 7.0% ([facility]) INJECT UNDER THE SKIN 100 UNITS [...] OralBID(Non-Specified), Morning and afternoon, Reported on 02/12/2024 metOLazone 2.5 MG Oral Tablet (Zaroxolyn)Indicat ions: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 Or take as directed; take one dose only if >3 lb wt gain in one day or >5 lb wt gain in one week. 15 Tablet 3 4 Active Vitamin D 125 MCG (5000 UT) [...] a day 90 g 1 4 Active Allopurinol 100 MG Oral Tablet (Zyloprim) Take 2 Tablets by mouth in the morning. 60 Tablet 3 4 Active predniSONE 5 MG Oral Tablet [...] then stop. 10 Tablet 4 Active Allopurinol 100 MG Oral Tablet (Zyloprim)Indicati ons:Gout Take 0.5 Tablets by mouth in the morning. 30 Tablet 3 4 03/03/20 24 Discontinued predniSONE 5 MG Oral Tablet (Deltasone)Indicat ions:Gout Take 1 Tablet by mouth in the morning for 14 days. As directed. 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 History of tobacco use 08/18/2017 [place]APIN[place]O on [...] as of this encounter (statuses as of 03/04/2024) Resolved Problems Problem Noted Date Diagnosed Date [...] as of this encounter (statuses as of 03/04/2024) Immunizations Name Administration Dates Next Due COVID-19 mRNA, LNP-s, No Pre serve, 2-Dose Series (Moderna) 12/10/2020,11/12/2020 Hepatitis B, 20+ yrs 01/04/2018,08/03/2017,07/03 Pneumococcal Conjugate Vacci ne, 20-valent ([id number]) 06/09/2022 Pneumococcal Polysaccharide PPV23 (Pneumovax) 03/06/2020 RSV [...] No 08/05/2023 Does the household have a [facility] source of income? (Household - for [...] Sign Reading Time Taken Comments Blood Pressure 130/54 03/03/2024 3:04 PM EDT Pulse 67 03/03/2024 3:04 PM EDT Temperature 36.7 C (98 F) 03/03/2024 3:04 PM EDT Respiratory Rate 22 03/03/2024 3:04 PM EDT Oxygen Saturation 96% 03/03/2024 3:04 PM EDT Inhaled Oxygen Concentration - - Weight 132.2 kg (291 lb 8 oz) 03/03/2024 3:04 PM EDT Height - - Body Mass Index 39.53 03/01/2024 2:23 PM EDT documented in this encounter Patient Instructions * Patient Instructions* Shivani Magallon MD - 03/03/2024 3:27 PM EDT -increase allopurinol to 200 mg daily for a week; if no difference in pain will increase further >> my nurses will check in with you -increase prednisone back up for a 21 day course >> 20 mg x 5 days, 10 mg x 5 days, 5 mg x 5 days, 2 mg x 6 days and stop -eat a low sodium diet (less than 2000 mg or 1/2 tsp) daily -be sure to take omeprazole as directed while on prednisone -no change to other medications -after about 7-10 days on higher allopurinol dose, pls check labs -avoid medicines like aleve, advil, ibuprofen, aspirin more than 81 mg daily and other NSAIDS whichare not good for kidney patients. Take only tylenol (acetaminophen) up to 2000 mg daily as needed for pain or as directed by your primary care provider. -will discuss your diffuse joint pains w/ Dr Mcconnell >> f/u w/ him for next steps or if your joint pain is ongoing/ worsening documented in this encounter Progress Notes * Shivani Magallon MD - 03/03/2024 3:09 PM EDT NEPHROLOGY CLINIC NOTE Nephrology, [place] [address] 03/03/2024, 3:09 PM Patient Name: Tony Delong BACKGROUND: 64 year old male presents for f/u of proteinuric CKD 4 w/ frequent NEMESIO; s/p December appt for hospital for [facility] admission October 19 to 2023 for stage [...] 2017 tendons and again 02/2022 >> 04/2022 [facility] . In wake of this had severe [...] Placed: , Transplant Listing: , TODAY 12/16/2023: Admitted to [facility] 10/19-10/22 w/ stage II NEMESIO on CKD >> presentign creat 4.3, down to 3.8 by [facility] d/c w/ d/c on 40 mg daily torsemide. Prior baseline had been 2. Presumptive cause volume depletion/overdiuretsis. Nephrology consultation, last Nephrology progress note, discharge summary from this visit were all reviewed in detail with the office visit Since [facility] d/c, followed closely by [facility] and he [...] does follow most days. 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 Using CPAP faithfully/no fail. Continues w/ remote BP monitoring and bluetooth weights TODAY 03/03/2024: most joints in agony and weak, tired; can barely stand most days. Saw PCP earlier this week and now on his 4th prednisone course. Hurts both feet both ankles L knee, L elbow, R shoulder Daily wts running mid- low 270s and needed metolazone once past 10 days for 278 lb. States pain changing mental health >> heard to bear diffuse pain REVIEW OF SYSTEMS General: + fatigue, wts [...] mouth daily. CPAP every night at bedtime. Meteor Lancets 33G Use 3 times daily - [...] 32 UNITS WITH DINNER PLUS CORRECTION PER [facility] OR DIRECTED UP TO120 [...] A DAY. DX: E11.9 300 Strip 3 Pqggg-[id number] Ethyl Esters 1 GM Oral Capsule (Lovaza) [...] day. Morning and afternoon) 240 Tablet 5 metOLazone 2.5 MG Oral Tablet (Zaroxolyn) Take 1 Tablet by mouth once a day Thursday and only. Or take as directed; take one dose only if >3 lb wt gain in one day or >5 lb wt gain in oneweek. 15 Tablet 3 Vitamin D 125 MCG (5000 UT) Oral [...] 5 days then stop. 10 Tablet 0 No current facility-administered medications for this visit. Review of patient's allergies indicates: Allergen Reactions Sglt2 Inhibitors Other (Please comment) Genital infection Metolazone Renal complications Note prior DTP with metolazone resulted in acute renal failure Sulfa Antibiotics Rash Other Allergy (See Comments) Rash 1+ cocamidopropyl betaine PHYSICAL EXAMINATION: BP Readings from Last 6 Encounters: 03/03/24 130/54 03/01/24 120/60 02/29/24 144/62 02/12/24 116/54 01/27/24 134/70 01/02/24 138/62 Wt Readings from Last 6 Encounters: 03/03/24 132.2 kg (291 lb 8 oz) 03/01/24 130.6 kg (288 lb) 02/12/24 134.8 kg (297 lb 3.2 oz) 01/27/24 131.5 kg (290 lb) 12/23/23 135.8 kg (299 lb 6.2 oz) 12/16/23 135.8 kg (299 lb 4.8 oz) Pulse Readings from Last 6 Encounters: 03/03/24 67 03/01/24 70 02/29/24 70 02/12/24 56 01/27/24 68 01/02/24 64 NAD, oriented x 3, ambulatory w/ cane broad based and slow/stiff gait, large framed man Normocephalic, atraumatic, eomi nonicteric sclerae MMM Supple neck RRR w/o m/g/r; trace BLE edema CTAB w/ reduced air mvt NT abd, +BS, soft; no anterior abdominal wall edema, No cyanosis or clubbing; L knee w/o e/o redness /heat/effusion No rash No tremor, focal or global weakness; fluent speech, good historian LABS: Recent Labs Units 02/24/24 1426 02/12/24 1438 02/04/24 1017 01/21/24 1453 SODIUM - [facility] mmol/L 137 137 137 139 POTASSIUM - [facility] mmol/L 4.0 3.6 3.0* 3.4* CHLORIDE - [facility] mmol/L 95* 96* 90* 96* CO2 - [facility] mmol/L 26 25 30 25 BUN - [facility] mg/dL 75* 77* 84* 86* CREATININE - [facility] mg/dL 2.3* 2.9* 2.7* 2.8* ESTIMATED GLOMERULAR FILTRATION RATE - [facility] mL/min 30* 23* 26* 25* Latest Ref Rng 09/02/2023 10/19/2023 10/23/2023 10/26/2023 11/06/2023 11/16/2023 12/01/2023 NEPH-FLOW Cr 0.6 - 1.2 mg/dL 1.8 (H) 4.5 (H) 2.32 ! (E) 2.1 (H) 2.2 (H) 1.8 (H) 2.2 (H) eGFR >=60 mL/min 42 (L) 14 (L) 28.6 (E) 35 (L) 32 (L) 42 (L) 32 (L) Latest Ref Rng 12/15/2023 12/23/2023 12/28/2023 01/20/2024 01/21/2024 02/04/2024 02/12/2024 NEPH-FLOW Cr 0.6 - 1.2 mg/dL 2.0 (H) 3.3 (H) 3.0 (H) 2.8 (H) 2.8 (H) 2.7 (H) 2.9 (H) eGFR >=60 mL/min 37 (L) 20 (L) 23 (L) 25 (L) 25 (L) 26 (L) 23 (L) Latest Ref Rng 02/24/2024 NEPH-FLOW Cr 0.6 - 1.2 mg/dL 2.3 (H) eGFR >=60 mL/min 30 (L) Latest Reference Range & Units 02/12/24 14:38 02/24/24 14:26 03/01/24 12:12 Uric Acid 3.4 - 7.0 mg/dL 15.7 (H) 14.5 (H) 12.9 (H) [facility] Reference Range & Units 03/01/24 12:12 MATTHEW Screen Negative Negative JANEY Antibodies Screen Value <0.7 Ratio 0.3 JANEY Antibodies Screen Interpretation Negative Negative dsDNA Antibody Value <20 IU/mL 0.8 dsDNA Antibody Interpretation Negative Negative CRP (Inflammatory Marker) <=5 mg/L 53 (H) Rheumatoid Factor <14 IU/mL 14 (H) Cyclic Citrullinated Peptide IgG Antibody Value <7 U/mL 1.4 Cyclic Citrullinated Peptide IgG Antibody Interpretation Negative Negative Recent Labs Units 02/24/24 1426 02/12/24 1438 12/01/23 1323 10/23/23 0000 10/19/23 1258 08/24/23 1421 11/26/22 1202 11/19/22 1532 07/28/22 0955 04/18/22 1044 HGB g/dL 11.0* 10.2* 13.6* 12.0* < > 12.0* < > 12.3* < > 12.5* FERRITIN - [facility] ng/mL -- -- -- -- -- 181 -- 105 -- 177 TRANSFERRIN SATURATION PERCENT - [facility] % -- -- -- -- -- 12* -- 19 -- 20 < > = values in this interval not displayed. Recent Labs Units 02/24/24 1426 02/12/24 1438 02/04/24 1017 01/21/24 1453 11/06/23 1550 10/26/23 0844 10/23/23 0000 07/29/23 1409 06/11/23 1111 09/12/22 1148 09/02/22 1237 05/05/22 0800 04/18/22 1044 03/05/22 1528 CALCIUM - [facility] mg/dL 9.1 9.0 9.3 8.9 < > 9.2 -- < > 8.9 < > 9.0 < > 9.2 9.2 PHOSPHORUS - [facility] mg/dL -- -- -- -- -- 2.8 -- -- 4.0 -- -- -- 3.2 -- PHOSPHORUS-OUTSIDE LAB MG/DL -- -- -- -- -- -- 3.3 -- -- -- -- -- -- -- 25-HYDROXY VITAMIN D - [facility] ng/mL -- -- -- -- -- -- -- -- -- -- 37 -- -- 48 PTH - [facility] pg/mL -- -- -- -- -- -- -- -- -- -- -- -- -- 48 < > = values in this interval not displayed. Recent Labs Units 02/12/24 1438 10/21/23 0000 06/11/23 1111 04/01/23 1531 HEMOGLOBIN A1C - [facility] % 8.5* -- 8.2* 7.2* HEMOGLOBIN, [id number] LAB -- 7.6 -- -- Recent Labs Units 06/11/23 1111 09/22/22 1449 09/02/22 1237 05/22/22 0957 ALBUMIN / CREATININE RATIO, URINE - [facility] mg/g Creat 172* 784* 1,907* 353* Recent Labs Units 06/11/23 1111 09/22/22 1449 [...] 4 chronic kidney disease (HCC) (Primary) - BASIC METABOLIC PANEL; Future; Expected date: 03/04/2024 - URIC ACID; Future; Expected date: 03/04/2024 Other hypervolemia History of acute renal failure Albuminuria Arthralgia, unspecified joint Gout - Allopurinol 100 MG Oral Tablet (Zyloprim); Take 2 Tablets by mouth in the morning. - predniSONE 5 MG Oral Tablet (Deltasone); As directed for first part of taper. 20 mg (4 tabs) x 5 days, then 10 mg (2 tabs) x 5 days, then 5 mg (1 tab) x 5 days, then 2 mg (separate prescription) x 5 days then stop. - CBC WITH WBC DIFFERENTIAL; Future; Expected date: 03/04/2024 - HEPATIC FUNCTION PANEL; Future; Expected date: 03/04/2024 Hyperuricemia - BASIC METABOLIC PANEL; Future; Expected date: 03/04/2024 - URIC ACID; Future; Expected date: 03/04/2024 - CBC WITH WBC DIFFERENTIAL; Future; Expected date: 03/04/2024 - HEPATIC FUNCTION PANEL; Future; Expected date: 03/04/2024 Other orders - predniSONE 1 MG Oral Tablet (Deltasone); As directed for last part of taper >> 20 mg (separate prescription) x 5 days, then 10 mg (separate prescription) x 5 days, then 5 mg (separate prescription) x 5 days, then 2 mg (2 tabs) x 5 days then stop. Follow Up: Return in about 3 months (around 06/03/2024) for clinic visit w/ MD. | For: clinic visitw/ MD | Check-out note: MD only Pt at high risk for complications related to therapy for gout and for hyperuricemia in the setting of chronic/complex vol OL and advanced renal disease. Volume status acceptable; renal function improved on labs this week. Now w/ diffuse joint pain in setting of markedly elevated uric acid levels >> atypical for gout attack but certainly want those uric acid levels lower. -prolong/intenisify steroid taper as below > taper intensified in part b/c gout can flare w/ increased allopurinol -increase allopurinol w/ f/u labs as below -staff message sent to PCP, ? Rheum eval if no improvement Patient Instructions -increase allopurinol to 200 mg daily for a week; if no difference in pain will increase further >> my nurses will check in with you -increase prednisone back up for a 21 day course >> 20 mg x 5 days, 10 mg x 5 days, 5 mg x 5 days, 2 mg x 6 days and stop -eat a low sodium diet (less than 2000 mg or 1/2 tsp) daily -be sure to take omeprazole as directed while on prednisone -no change to other medications -after about 7-10 days on higher allopurinol dose, pls check labs -avoid medicines like aleve, advil, ibuprofen, aspirin more than 81 mg daily and other NSAIDS whichare not good for kidney patients. Take only tylenol (acetaminophen) up to 2000 mg daily as needed for pain or as directed by your primary care provider. -will discuss your diffuse joint pains w/ Dr Mcconnell >> f/u w/ him for next steps or if your joint pain is ongoing/ worsening Shivani Magallon MD Nephrology, [facility] [address] [facility] [address] CC: REF: SELF NO STRE[address] ADDRESS AVAILABLE PCP: RAQUEL MCCONNELL [address] [place] [id number] [phone] This chart was completed in part utilizing [employer] Speech Voice Recognition Software. Randomword insertions, pronoun errors, and incomplete sentences are an occasional consequence of this system due to software limitations, and ambient noise. Any questions or concerns about the content, text, or information contained within the body of this dictation should be directly addressed to the provider for clarification. documented in this encounter Nursing Notes * Marisa Alcocer LPN - 03/03/2024 3:00 PM EDT Patient identified by verbal name and date of .No recent inpatient hospital stays or ED visitsNo surgery Currently on Prednisone for joint pain Denies lower extremity edema but notes SOB with exertion Last labs 02/24/24 CMP Inflammatories 03/01/24 documented in this encounter Plan of Treatment Upcoming Encounters Date Type Department Care Team (Late st Contact Info) Description 03/10/2024 11:30 AM EDT Telemedicine Family Practice [address] [facility] [address] [place] [address] [place], Pharmacist [address] [place] [address] [facility] [place] [address] 03/11/2024 8:30 AM EDT Office Visit Cardiology, [facility] [address] [address] Elizabeth Pineda, DEVYN [address] [place] [address] 03/16/2024 4:00 PM EDT Home Visit [facility], [facility] [address] [place] [address] Love Stevens, ANNE MARIE [address] [place] [address] 04/15/2024 8:30 AM EDT Scheduled Telephone [facility], [facility] [address] [facility] [place] [address] Mery Calderon, RDN [address] [facility] [place] [address] 06/13/2024 11:15 AM EST Hospital Encounter ENDO [facility], Endoscopy Room [facility] [address] [facility] [place] [phone] José Miguel Sifuentes MD [address] [place] [address] 06/13/2024 11:15 AM EST - 06/13/2024 11:45 AM EST Surgery ENDO O[facility], Endoscopy Room [facility] [address] [place] [phone] José Miguel Sifuentes MD [address] [place] [address] COLONOSCOPY FLEXIBLE PROXIMAL DIAGNOSTIC 07/01/2024 2:20 PM EST Office Visit Family Practice [address], [place] [address] [place] [address] Raquel Mcconnell, [address] [place] [address] 07/08/2024 2:20 PM EST Office Visit Nephrology, Susan Palacios [address] [facility] [place] [address] Shivani Magallon MD [address] [facility] [place] [address] 08/08/2024 9:30 AM EST Nurse Only Ancillary [address] [place] [address] [place], Nurse [address] [place] [address] 10/27/2024 1:00 PM EDT [facility] [address] [facility] [phone] Lindsey Sheikh CRNP [address] [place] [address] Scheduled Orders Name Type Priority Associated Diagnoses Orde r Schedule BASIC METABOLIC PANEL Lab Routine 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) Hyperuricemia Expected: 03/04/2024 (Approximate), Expires: 03/03/2025 URIC ACID Lab Routine 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) Hyperuricemia Expected: 03/04/2024, Expires: 03/03/2025 CBC WITH WBC DIFFERENTIAL Lab Routine Hyperuricemia Expected: 03/04/2024, Expires: 03/03/2025 HEPATIC FUNCTION PANEL Lab Routine Hyperuricemia Expected: 03/04/2024, Expires: 03/03/2025 Scheduled Procedures Name Priority Associated Diagnoses Date/Ti [...] 03/05/2023 03/05/2022, 09/12/2020 COVID-19 Vaccine ( season) 2023 12/10/2020, 11/12/2020 Influenza Vaccine (FLU shot) (#1) 2024 04/01/2023, 04/27/2022, 03/21/2021, Additional history exists Albumin/Creatinine Ratio 06/11/2024 023, 09/22/2022, 09/02/2022, Additional history exists Depression Screening 08/05/2024 08/05/2023 HbA1c 08/14/2024 02/12/2024, 041 01/2024, 06/11/2023, Additional history exists GFR 08/26/2024 02/24/2024, 08/0 03/2024, 02/04/2024, Additional history exists Diabetic Foot Exam 10/19/2024 10/20/2023, 0 09/02/2022, 08/16/2021, Additional history exists Phosphate 10/25/2024 10/26/2023, 10/04, 06/11/2023, Additional history exists Diabetic Eye Exam 12/16/2024 12/17/2023, , 12/17/2023, Additional history exists Hgb 02/23/2025 02/24/2024, 08/0 03/2024, 12/01/2023, Additional history exists Nephrology Referral 03/03/2025 03/03/2024 O2 ASSESSMENT COMPLETED IN PAST YEAR FOR COPD 03/03/2025 03/03/2024 Arreola's Esophagus Surveilance 06/16/2025 06/16/2022, 06/16/2022, 03/20/2022, Additional history exists DTap/Tdap Vaccines (2 - Td or Tdap) 12/29/2026 12/29/2016 RETIRED - COLONOSCOPY-EVERY 5 YRS AGES 18-100 Discontinued 01/01/2018, 01/01/2018 Hepatitis B Vaccine Completed 01/04/2018, 08/03/2017, 07/03/2017 Zoster Vaccines Completed 05/29/2020, 01/27/2020 Pneumococcal Vaccine: 65+ Years Completed 06/09/2022, 03/06/2020 AAA Screening Completed 10/20/2023, 01/29/2021 HPV (Gardasil) Vaccine Aged Out No lo nger eligible based on patient's age to complete this topic MENINGOCOCCAL (MENACTRA/MENVEO) Aged Out No longer eligible based on patient's age to complete this topic documented as of this encounter Medical Devices Implanted Type Area Storage Management Architect Device Identifier Shelf Expiration Date Model / Serial / Lot Lens Intraoc 21.0 - [id number] - [id number] Implanted:Qty: 1 on 01/22/2017 by Cheko Mcnamara MD at OR [facility] Right: Eye [employer] 08/05/2021 [id number] / [id number] Lens Intraoc 21.5 - [id number] - [id number] Implanted:Qty: 1 on 02/03/2017 by Cheko Mcnamara MD at OR [facility] Left: Eye [employer] 09/02/2021 [id number] / [id number] / [id number] documented as of this encounter Visit Diagnoses Diagnosis 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)- Primary Other hypervolemia History of acute renal failure Personal history of other disorder of urinary system Albuminuria Proteinuria Arthralgia, unspecified joint Hyperuricemia Other abnormal blood chemistry Special screening for malignant neoplasms, colon documented [...] and were consensually agreed upon. Care Teams Analog Device Designer Relationship Specialty Start Date End Date Raquel Mcconnell DO [address] [facility] [place] [address] PCP - General Internal Medicine 02/12/24 documented as of this encounter
--- OUTSIDE RECORDS SUMMARY | 2024-08-26 02:46 | External Medical Summary | Summary of Care ---
Author Name Unknown Organization [facility] Address [address] [place] [address] Phone [phone] Care Team Providers Care Acquisitions Editor Name Role Phone Igor Mcconnell DO Primary Care Provider [phone] Reason for Visit * Reason Onset Date Comments Information 03/08/2024 Encounter Details Date Type Department Care Team (Late st Contact Info) Description 03/08/2024 Telephone Family Practice 65 [facility] [place] [address] [place] [address] Igor Mcconnell DO 293 [place] [address] Information Allergies Active Allergy Reactions Criticality Noted Date Comments Metolazone Renal complications 11/10/2023 Note prior DTP with metolazone resulted in acute renal failure Other Allergy (See Comments) Rash Low 10/13/2022 1+ cocamidopropyl betaine Sglt2 Inhibitors Other (Please comment) High 09/04/2020 Genital infection Sulfa Antibiotics Rash 10/15/2016 documented as of this encounter (statuses as of 03/09/2024) Medications Medication Sig Dispensed Refills Start Date [...] 32 UNITS WITH DINNER PLUS CORRECTION PER [facility] OR DIRECTED UP TO [...] DX: E11.9 300 Strip 3 09/23/2023 Active Vfdaq-3-iyry Ethyl Esters 1 GM Oral Capsule (Lovaza) [...] A1c goal of less than 7.0% ([facility]) INJECT UNDER THE SKIN 100 [...] on 02/12/2024 metOLazone 2.5 MG Oral Tablet (Zaroxolyn)Indicatio ns: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 Or take as directed; take one dose only if >3 lb wt gain in one day or >5 lb wt gain in one week. 15 Tablet 3 2024 Active Vitamin D 125 MCG (5000 UT) [...] with long-term current use of insulin ([facility]) Inject 2 mg under [...] as of this encounter (statuses as of 03/09/2024) Active Problems Patient Care Coordination No te [...] in the Comments) Remote Patient Monitoring Vendor: Nomesia Device(s): Connected Scale Self - Management Plan Double dose of Torsemide for 3 days Exacerbation Plan BMP Chest X-Ray Additional Comments: Recommended using double torsemide for 3 days in a row, rather than 1 day like he has been doing Continue using Nomesia scale Low sodium diet Type 2 diabetes [...] 08/18/2017 Last Assessment & Plan: Continues on [employer] 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 repatha History of [...] as of this encounter (statuses as of 03/09/2024) Resolved Problems Problem Noted Date Diagnosed Date [...] as of this encounter (statuses as of 03/09/2024) Immunizations Name Administration Dates Next Due COVID-19 mRNA, LNP-s, No Pre serve, 2-Dose Series (Moderna) 12/10/2020,11/12/2020 Hepatitis B, 20+ yrs 01/04/2018,08/03/2017,07/03 Pneumococcal Conjugate Vacci ne, 20-valent ([id number]) 06/09/2022 Pneumococcal Polysaccharide PPV23 (Pneumovax) 03/06/2020 RSV [...] No 08/05/2023 Does the household have a [facility] source of income? (Household - for [...] Telephone Encounter - Zulema Frazier LPN - 03/09/2024 1:02 PM EDT Will have lab done on Thursday. Thank you * Telephone Encounter - Igor Mcconnell DO - 03/08/2024 8:30 PM EDT Make sure patient has labs that were ordered by nephrology are done. * Telephone Encounter - Zulema Frazier LPN - 03/08/2024 2:36 PM EDT Called patient to checks status, states he is feeling better. Thank you * Telephone Encounter - Zulema Frazier LPN - 03/08/2024 2:34 PM EDT ----- Message from Shivani Magallon MD sent at 03/04/2024 4:21 PM EDT ----- Severe pain at OV w/ me and not really typical / classic for gout. I increased allopurinol and prolonged steroid taper, advised him to stay in close contact w/ 65 Forward re pain ----- Message ----- From: Igor Mcconnell DO Sent: 03/03/2024 1:42 PM EDT To: Shivani Magallon MD; # No Lyme Uric acid has improved but is still high. MATTHEW is normal Will review with Nephrology for assistance with increasing allopurinol dose. See if he is on Gout diet. documented in this encounter Plan of Treatment Upcoming Encounters Date Type Department Care Team (Late st Contact Info) Description 03/10/2024 11:30 AM EDT Telemedicine Family Practice 65 [facility] 293 [place] [address] College, Pharmacist [address] [place] [address] 03/11/2024 8:30 AM EDT Office Visit Cardiology, [facility] 132 [facility] [place] [address] Elizabeth Pineda PA-C 132 [facility] [place] [address] 03/16/2024 4:00 PM EDT Home Visit isinger at [facility] 132 [facility] [place] [address] Love Stevens RN 132 [facility] [place] [address] 04/15/2024 8:30 AM EDT Scheduled Telephone [facility], [facility] [address] [facility] [place] [address] Mery Calderon RDN [address] [place] [facility] [place] [address] 06/13/2024 11:15 AM EST Hospital Encounter ENDO [facility], Endoscopy Room [facility] 132 [facility] [place] [address] José Miguel Sifuentes MD 132 [place] [address] 06/13/2024 11:15 AM EST - 06/13/2024 11:45 AM EST Surgery ENDO [facility], Endoscopy Room [facility] 132 [facility] [place] [phone] José Miguel Sifuentes MD 132 [place] [address] COLONOSCOPY FLEXIBLE PROXIMAL DIAGNOSTIC 07/01/2024 2:20 PM EST Office Visit Family Practice [address] [place] [address], [place] 293 [place] [address] Igor Mcconnell, 293 [place] [address] 07/08/2024 2:20 PM EST Office Visit NephSusan becker 200 [facility], [place] [address] Shivani Magallon MD 200 [facility], [place] [address] 08/08/2024 9:30 AM EST Nurse Only Ancillary [place] [address] [place] [address] [place], Nurse [address] [place] [address] 10/27/2024 1:00 PM EDT Office Visit Sleep Disorders Ctr [facility] [address] [place] [phone] Lindsey Sheikh CRNP [address] [place] [address] Scheduled Procedures Name Priority Associated Diagnoses Date/Ti [...] COVID-19 Vaccine ( season) 2024 12/10/2020, 11/12/2020 Influenza Vaccine (FLU shot) (#1) 2024 04/01/2023, 04/27/2022, 03/21/2021, Additional history exists Albumin/Creatinine Ratio 06/11/20242 023, 09/22/2022, 09/02/2022, Additional history exists Depression Screening 08/05/2024 08/05/2023 HbA1c 08/14/2024 02/12/2024, 0401/2024, 06/11/2023, Additional history exists GFR 08/26/2024 02/24/2024, [...] this encounter Medical Devices Implanted Type Area Open Cut Examiner Device Identifier Shelf Expiration Date Model / Serial / Lot Lens Intraoc 21.0 - [id number] - [id number] Implanted:Qty: 1 on 01/22/2017 by Cheko Mcnamara MD at OR [facility] Right: Eye BAUSCH & LOMB 08/05/2021 [id number] / [id number] / [id number] Lens Intraoc 21.5 - [id number] - [id number] Implanted:Qty: 1 on 02/03/2017 by Cheko Mcnamara MD at OR [facility] Left: Eye BAUSCH & LOMB 09/02/2021 [id number] / [id number] / [id number] documented as of this encounter Advance Directives [...] and were consensually agreed upon. Care Teams Acquisitions Editor Relationship Specialty Start Date End Date Igor Mcconnell DO 293 [place] [address] PCP - General Internal Medicine 02/12/24 documented as of this encounter
--- OUTSIDE RECORDS SUMMARY | 2024-08-26 02:46 | External Medical Summary | Summary of Care ---
Author Name Unknown Organization [facility] Address [address] [place] [facility] [place] [address] Phone [phone] Care Team Providers Care Cabinet Abrasive Sandblaster Name Role Phone Igor Mcconnell DO Primary Care Provider [phone] Reason for Visit * Reason Onset Date Comments [facility]: Maintenance 03/15/2024 Encounter Details Date Type Department Care Team (Late st Contact Info) Description 03/15/2024 Travel Occupational Therapist Telephone [facility], [facility] [address] [facility] [place] [address] Bárbara Emmanuel LPN [address] [place] [address] [facility]: Maintenance Allergies Active Allergy Reactions Criticality Noted Date Comments Metolazone Renal complications 11/10/2023 Note prior DTP with metolazone resulted in acute renal failure Other Allergy (See Comments) Rash Low 10/13/2022 1+ cocamidopropyl betaine Sglt2 Inhibitors Other (Please comment) High 09/04/2020 Genital infection Sulfa Antibiotics Rash 10/15/2016 documented as of this encounter (statuses as of 03/15/2024) Medications Medication Sig Dispensed Refills Start Date [...] WITH DINNER PLUS CORRECTION PER [facility] OR DIRECTED UP TO 120 UNITS [...] DX: E11.9 300 Strip 3 09/23/2023 Active Yxhvo-1-ldlw Ethyl Esters 1 GM Oral Capsule (Lovaza) [...] [facility] [place]) INJECT UNDER THE SKIN 100 UNITS TWICE DAILY OR DIRECTED 90 mL 3 01/18/2024 5 Active Additional Information Patient taking differently: 90 Units Subcutaneous BID(Non-Specified), Reported on 02/12/2024 Torsemide 20 MG Oral Tablet (Demadex)Indications :Chronic heart failure with preserved ejection fraction ([facility]),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 disease ([facility]) Take 4 Tablets by mouth in the [...] as of this encounter (statuses as of 03/15/2024) Active Problems Patient Care Coordination No te [...] in the Comments) Remote Patient Monitoring Vendor: [employer] Device(s): Connected Scale Self - Management Plan [...] 08/18/2017 Last Assessment & Plan: Continues on [employer] 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 [employer] History of tobacco use 08/18/2017 [place] on [...] as of this encounter (statuses as of 03/15/2024) Resolved Problems Problem Noted Date Diagnosed Date [...] as of this encounter (statuses as of 03/15/2024) Immunizations Name Administration Dates Next Due COVID-19 mRNA, LNP-s, No Pre serve, 2-Dose Series (Moderna) 12/10/2020,11/12/2020 Hepatitis B, 20+ yrs 01/04/2018,08/03/2017,07/03 Pneumococcal Conjugate Vacci ne, 20-valent (Fovmuaf29) 06/09/2022 Pneumococcal Polysaccharide PPV23 (Pneumovax) 03/06/2020 RSV [...] Telephone Encounter - Bárbara Emmanuel LPN - 03/15/2024 9:44 AM EDT Images from the original note were not included. [facility] Remote Patient Monitoring Unable to contact patient: Trigger type: Abnormal reading(s): Device(s) Triggered: AMC (Advanced Monitored Caregiving): Scale: Trigger priority per AMC: 274.1 LM , has [facility] appt scheduled for tomorrow 03/16/24 documented in this encounter Plan of Treatment Upcoming Encounters Date Type Department Care Team (Latest Contact Info) Description 03/16/2024 4:00 PM EDT Home Visit [facility], [facility] [address] [place] [address] Love Stevens RN 132 [facility] [place] [address] 04/15/2024 8:30 AM EDT Scheduled Telephone [facility], [facility] 1000 [address] [facility] [place] [address] Mery Calderon RDN 1000 [address] [facility] [place] [address] 06/13/2024 11:15 AM EST Hospital Encounter ENDO OSSC, Endoscopy Room [facility] 132 [facility] [place] [phone] José Miguel Sifuentes MD 132 [facility] [place] [address] 06/13/2024 11:15 AM EST - 06/13/2024 11:45 AM EST Surgery ENDO OSSC, Endoscopy Room [facility] [address] [place] [phone] José Miguel Sifuentes MD 132 [facility] [place] [address] COLONOSCOPY FLEXIBLE PROXIMAL DIAGNOSTIC 07/01/2024 2:20 PM EST Office Visit Family Practice 65 [facility] [place] 293 [place] [address] Igor Mcconnell DO 293 [place] [address] 07/08/2024 2:20 PM EST Office Visit Nephrology, [facility] 200 [place] [address] Shivani Magallon MD [address] [place] [address] 08/08/2024 9:30 AM EST Nurse Only Ancillary [address] [place] [address] [place], Nurse [address] [place] [address] 10/27/2024 1:00 PM EDT Office Visit Sleep Disorders Ctr [facility] [place] [address] [place] [phone] Lindsey Sheikh CRNP [address] [place] [address] Scheduled Procedures Name Priority Associated Diagnoses Date/Ti [...] this encounter Medical Devices Implanted Type Area Obedience Trainer Device Identifier Shelf Expiration Date Model / Serial / Lot Lens Intraoc 21.0 - [id number] - [id number] Implanted:Qty: 1 on 01/22/2017 by Cheko Mcnamara MD at OR [facility] Right: Eye BAUSCH & LOMB 08/05/2021 [id number] / [id number] / [id number] Lens Intraoc 21.5 - [id number] - [id number] Implanted:Qty: 1 on 02/03/2017 by Cheko Mcnamara MD at OR [facility] Left: Eye BAUSCH & LOMB 09/02/2021 [id number] / [id number] / [id number] documented as of this encounter Advance Directives [...] and were consensually agreed upon. Care Teams Cabinet Abrasive Sandblaster Relationship Specialty Start Date End Date Igor Mcconnell DO 293 [place] [address] PCP - General Internal Medicine 02/12/24 documented as of this encounter
--- OUTSIDE RECORDS SUMMARY | 2024-08-26 02:46 | External Medical Summary | Summary of Care ---
Author Name Unknown Organization [facility] Address [address] [facility] [place] [address] Phone [phone] Care Team Providers Care Photography Assistant Name Role Phone Igor Mcconnell DO Primary Care Provider [phone] Reason for Visit * Reason Comments Outpatient Testing Encounter Details Date Type Department Care Team (Late st Contact Info) Description 03/11/2024 9:00 AM EDT Laboratory Laboratory, [facility] 132 [facility] [place] [phone] [facility] 132 [facility] [address] Gout; 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); Hyperuricemia; MyCode Research Other*[id number] Allergies Active Allergy Reactions Criticality Noted Date Comments Metolazone Renal complications 11/10/2023 Note prior DTP with metolazone resulted in acute renal failure Other Allergy (See Comments) Rash Low 10/13/2022 1+ cocamidopropyl betaine Sglt2 Inhibitors Other (Please comment) High 09/04/2020 Genital infection Sulfa Antibiotics Rash 10/15/2016 documented as of this encounter (statuses as of 03/11/2024) Medications Medication Sig Dispensed Refills Start Date [...] DX: E11.9 300 Strip 3 09/23/2023 Active Hobtx-9-golv Ethyl Esters 1 GM Oral Capsule (Lovaza) [...] goal of less than 7.0% ([facility]) INJECT UNDER THE SKIN 100 UNITS TWICE [...] long-term current use of insulin ([facility]) Inject 2 mg under the skin once [...] as of this encounter (statuses as of 03/11/2024) Active Problems Patient Care Coordination No te [...] the Comments) Remote Patient Monitoring Vendor: [facility] [...] as of this encounter (statuses as of 03/11/2024) Resolved Problems Problem Noted Date Diagnosed Date [...] has been better controlled recently. Monitor using Apps4Proyle Cindy. NEMESIO (acute kidney injury) 04/30/2022 Severe [...] as of this encounter (statuses as of 03/11/2024) Immunizations Name Administration Dates Next Due COVID-19 mRNA, LNP-s, No Pre serve, 2-Dose Series (Moderna) 12/10/2020,11/12/2020 Hepatitis B, 20+ yrs 01/04/2018,08/03/2017,07/03 Pneumococcal Conjugate Vacci ne, 20-valent (Nptyqqs52) 06/09/2022 Pneumococcal Polysaccharide PPV23 (Pneumovax) 03/06/2020 RSV [...] Department Care Team (Latest Contact Info) Description 03/11/2024 8:30 AM EDT Office Visit Cardiology, [facility] 132 [place] [address] Elizabeth Pinead PA-C 132 [place] [address] PRE - ADMINISTRATION DOCUMENTATION 03/16/2024 4:00 PM EDT [facility] Visit [facility], [facility] 132 [facility] [place] [address] Love Stevens RN [address] [place] [address] 04/15/2024 8:30 AM EDT Scheduled Telephone [facility], [facility] [address] [facility] [place] [address] Mery Calderon RDN 1000 [address] [facility] [place] [address] 06/13/2024 11:15 AM EST Hospital Encounter ENDO OSSC, Endoscopy Room [facility] 132 [facility] [place] [phone] José Miguel Sifuentes MD 132 [facility] [place] [address] 06/13/2024 11:15 AM EST - 06/13/2024 11:45 AM EST Surgery ENDO OSS, Endoscopy Room [facility] 132 [facility] [place] [phone] José Miguel Sifuentes MD 132 [facility] [place] [address] COLONOSCOPY FLEXIBLE PROXIMAL DIAGNOSTIC 07/01/2024 2:20 PM EST Office Visit Family Practice 65 [facility] [place] 293 [facility] [place] [address] Igor Mcconnell DO 293 [place] [address] 07/08/2024 2:20 PM EST Office Visit Nephrology, [facility] 200 [place] [address] Shivani Magallon MD 200 [place] [address] 08/08/2024 9:30 AM EST Nurse Only Ancillary [place] Hyde[address] [place] [address] [place], Nurse [address] [place] [address] 10/27/2024 1:00 PM EDT Office Visit [facility] Disorders Ctr [facility] [address] [place] [phone] Lindsey Sheikh CRNP [address] [place] [address] Pending Results Name Type Priority Associated Diagnoses Date /Time URIC ACID Lab Routine Gout 03/11/2024 8:04 AM EDT BASIC METABOLIC PANEL Lab Routine 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) Hyperuricemia 03/11/2024 8:04 AM EDT CBC WITH WBC DIFFERENTIAL Lab Routine Hyperuricemia 03/11/2024 8:04 AM EDT HEPATIC FUNCTION PANEL Lab Routine Hyperuricemia 03/11/2024 8:04 AM EDT MYCODE SUBSEQUENT ADULT Lab Routine MyCode Research Other*[id number] 03/11/2024 8:04 AM EDT CBC Lab Routine Hyperuricemia 03/11/2024 8:04 AM EDT DIFFERENTIAL, AUTOMATED Lab Routine Hyperuricemia 03/11/2024 8:04 AM EDT MYCODE SST1 Lab Routine [employer] Other*[id number] 03/11/2024 8:04 AM EDT MYCODE SST2 Lab Routine [employer] Other*[id number] 03/11/2024 8:04 AM EDT Scheduled Procedures Name Priority Associated [...] 01/01/2023 PTH 03/05/2023 03/05/2022, 09/12/2020 COVID-19 Vaccine (2022- season) 2024 12/10/2020, 11/12/2020 Influenza Vaccine (FLU [...] this encounter Medical Devices Implanted Type Area Negative Turner Apprentice Device Identifier Shelf Expiration Date Model / Serial / Lot Lens Intraoc 21.0 - [id number] - [id number] Implanted:Qty: 1 on 01/22/2017 by Cheko Mcnamara MD at OR [facility] Right: Eye BAUSCH & LOMB 08/05/2021 [id number] / [id number] / [id number] Lens Intraoc 21.5 - [id number] - [id number] Implanted:Qty: 1 on 02/03/2017 by Cheko Mcnamara MD at OR [facility] Left: Eye BAUSCH & LOMB 09/02/2021 [id number] / [id number] / [id number] documented as of this encounter Visit Diagnoses Diagnosis Gout Gout, unspecified 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) Hyperuricemia Other abnormal blood chemistry MyCode Research Other*[id number] Special screening for malignant neoplasms, colon documented [...] and were consensually agreed upon. Care Teams Photography Assistant Relationship Specialty Start Date End Date Igor Mcconnell DO 293 [place] [address] PCP - General Internal Medicine 02/12/24 documented as of this encounter
--- OUTSIDE RECORDS SUMMARY | 2024-08-26 02:46 | External Medical Summary ---
Author Name Unknown Address Unknown Organization [facility] [place] [address] Laboratory Report Ordering Provider Test Date Status ADRIA REN 03/11/2024 08:04:12 Final Observation Date Value Abnormality Reference (Units ) Status BUN 03/11/2024 08:04:12 54 Above high normal 6-20 (mg/dL) Final Creatinine 03/11/2024 08:04:12 2.3 Above high normal 0.6-1.2 (mg/dL) Final Glomerular filtration rate/1.73 sq M.predicted [Volume Rate/Area] in Serum, Plasma or Blood by Creatinine-based formula (CKD-EPI) 03/11/2024 08:04:12 31 Below low normal >=60 (mL/min) Final eGFR is calculated based on the CKD-EPI 2020 equation. Sodium 03/11/2024 08:04:12 142 135-146 (m mol/L) Final Potassium 03/11/2024 08:04:12 3.9 3.5-5.1 (m mol/L) Final Cl 03/11/2024 08:04:12 102 98-107 (mm ol/L) Final CO2 03/11/2024 08:04:12 28 22-32 (mmo l/L) Final Anion gap 03/11/2024 08:04:12 12 7-15 (mmol /L) Final Glucose 03/11/2024 08:04:12 138 Above high normal 70 -120 (mg/dL) Final Calcium 03/11/2024 08:04:12 9.7 8.4-10.2 ( mg/dL) Final Performing Location [facility] [address] [place] [address]
--- OUTSIDE RECORDS SUMMARY | 2024-08-26 02:46 | External Medical Summary | Summary of Care ---
Author Name Unknown Organization [facility] Address [address] [place] [address] Phone [phone] Care Team Providers Care Edger Technician Name Role Phone Igor Mcconnell DO Primary Care Provider [phone] Reason for Visit * Reason Onset Date Comments Test Results 03/03/202403/03 Encounter Details Date Type Department Care Team (Late st Contact Info) Description 03/03/2024 Telephone Family Practice [address], [place] [address] [place] [address] Igor Mcconnell DO [address] [place] [address] Test Results (03/03) Allergies Active Allergy Reactions Criticality Noted Date Comments Metolazone Renal complications 11/10/2023 Note prior DTP with metolazone resulted in acute renal failure Other Allergy (See Comments) Rash Low 10/13/2022 1+ cocamidopropyl betaine Sglt2 Inhibitors Other (Please comment) High 09/04/2020 Genital infection Sulfa Antibiotics Rash 10/15/2016 documented as of this encounter (statuses as of 03/03/2024) Medications Medication Sig Dispensed Refills Start Date [...] DX: E11.9 300 Strip 3 09/23/2023 Active Ixama-9-dzuw Ethyl Esters 1 GM Oral Capsule (Lovaza) [...] hemoglobin A1c goal of less than 7.0% ([facility]) INJECT UNDER THE SKIN 100 [...] with long-term current use of insulin ([facility]) Inject 2 mg under the skin once a week. 2 mL 11 02/16/2024 Active Potassium Chloride Gaviota ER 20 MEQ Oral Tablet Extended Release Take 1 Tablet by mouth in the morning and 1 Tablet before bedtime. 180 Tablet 3 02/18/2024 Active Allopurinol 100 MG Oral Tablet (Zyloprim)Indication s:Gout Take 0.5 Tablets by mouth in the morning. 30 Tablet 3 02/26/2024 Active predniSONE 5 MG Oral Tablet (Deltasone)Indicatio ns:Gout Take 1 Tablet by mouth in the morning for 14 days. As directed. 14 Tablet 02/26/2024 Active Clotrimazole-Betamet hasone 1-0.05 % External Cream (Lotrisone) Apply small amount of cream to scrotal area two times a day 90 g 1 03/02/2024 Active documented as of this encounter (statuses as of 03/03/2024) Active Problems Patient Care Coordination No te [...] in the Comments) Remote Patient Monitoring Vendor: [employer] Device(s): Connected Scale Self - Management Plan [...] as of this encounter (statuses as of 03/03/2024) Resolved Problems Problem Noted Date Diagnosed Date [...] as of this encounter (statuses as of 03/03/2024) Immunizations Name Administration Dates Next Due COVID-19 mRNA, LNP-s, No Pre serve, 2-Dose Series (Moderna) 12/10/2020,11/12/2020 Hepatitis B, 20+ yrs 01/04/2018,08/03/2017,07/03 Pneumococcal Conjugate Vacci ne, 20-valent ([id number]) 06/09/2022 Pneumococcal Polysaccharide PPV23 (Pneumovax) 03/06/2020 RSV [...] Telephone Encounter - Zulema Frazier LPN - 03/03/2024 3:13 PM EDT Will resend gout information as patient has not yet received. Aware and will comply. Is currently in with nephrology * Telephone Encounter - Zulema Frazier LPN - 03/03/2024 3:07 PM EDT ----- Message from Igor Mcconnell DO sent at 03/03/2024 1:42 PM EDT ----- No Lyme Uric acid has improved but is still high. MATTHEW is normal Will review with Nephrology for assistance with increasing allopurinol dose. See if he is on Gout diet. documented in this encounter Plan of Treatment Upcoming Encounters Date Type Department Care Team (Late st Contact Info) Description 03/10/2024 11:30 AM EDT Telemedicine Family Practice 65 [facility] 293 [place] [address] College, Pharmacist 65 [facility] 293 [place] [address] 03/11/2024 8:30 AM EDT Office Visit Cardiology, [facility] [address] [place] [address] Elizabeth Pineda PA-C [address] [place] [address] 03/16/2024 4:00 PM EDT [facility], [facility] [address] [place] [address] Love Stevens RN 132 [facility] [place] [address] 04/15/2024 8:30 AM EDT Scheduled Telephone [facility], [facility] [address] [facility] [place] [address] Mery Calderon, VIVIANAN [address] [place] [address] 06/13/2024 11:15 AM EST Hospital Encounter ENDO [facility], Endoscopy Room [facility] [address] [place] [phone] José Miguel Sifuentes MD [address] [place] [address] 06/13/2024 11:15 AM EST - 06/13/2024 11:45 AM EST Surgery ENDO [facility], Endoscopy Room [facility] [address] [place] [phone] José Miguel Sifuentes MD [address] [place] [address] COLONOSCOPY FLEXIBLE PROXIMAL DIAGNOSTIC 07/01/2024 2:20 PM EST Office Visit Family Practice 65 [facility], [place] 293 [place] [address] Igor Mcconnell, 293 [place] [address] 08/08/2024 9:30 AM EST Nurse Only Ancillary Lazaro [address] [place] [address] [place], Nurse [address] [place] [address] 10/27/2024 1:00 PM EDT Office Visit Sleep Disorders Ctr [facility] 132 [facility] [place] [phone] Lindsey Sheikh CRNP 132 [facility] [place] [address] Scheduled Procedures Name Priority Associated Diagnoses Date/Ti [...] 02/12/2024, 10/04, 06/11/2023, Additional history exists GFR 08/26/2024 02/24/2024, [...] this encounter Medical Devices Implanted Type Area Welt Butter Hand Device Identifier Shelf Expiration Date Model / Serial / Lot Lens Intraoc 21.0 - [id number] - [id number] Implanted:Qty: 1 on 01/22/2017 by Cheko Mcnamara MD at OR [facility] Right: Eye BAUSCH & LOMB 08/05/2021 [id number] / [id number] / [id number] Lens Intraoc 21.5 - [id number] - [id number] Implanted:Qty: 1 on 02/03/2017 by Cheko Mcnamara MD at OR [facility] Left: Eye BAUSCH & LOMB 09/02/2021 [id number] / [id number] / [id number] documented as of this encounter Advance Directives [...] and were consensually agreed upon. Care Teams Edger Technician Relationship Specialty Start Date End Date Igor Mcconnell DO [address] [place] [address] PCP - General Internal Medicine 02/12/24 documented as of this encounter
--- OUTSIDE RECORDS SUMMARY | 2024-08-26 02:46 | External Medical Summary ---
Author Name Unknown Address Unknown Organization [id number]:LABORATORY [facility] 57-10 - [address] [place] [address] Laboratory Report Ordering Provider Test Date Status ADRIA REN 03/11/2024 08:04:12 Final Observation Date Value Abnormality Reference (Units ) Status WBC, Total 03/11/2024 08:04:12 6.52 4.00-10.8 0 (K/uL) Final RBC 03/11/2024 08:04:12 3.82 4.50-5.25 (M/uL) Final Hemoglobin 03/11/2024 08:04:12 10.4 Below low normal 14 .0-16.8 (g/dL) Final HCT 03/11/2024 08:04:12 32.6 Below low normal 40. 0-48.4 (%) Final MCV 03/11/2024 08:04:12 85.3 82.0-99.5 (fL) Final MCH 03/11/2024 08:04:12 27.2 27.0-34.0 (pg) Final MCHC 03/11/2024 08:04:12 31.9 32.0-36.0 (g/dL) Final RDW 03/11/2024 08:04:12 14.8 11.5-15.5 (%) Final Platelets 03/11/2024 08:04:12 212 140-400 (K /uL) Final MPV 03/11/2024 08:04:12 9.6 6.6-11.1 ( fL) Final Performing Location LABORATORY [facility] 57-1 0 - [address] [place] [address]
--- OUTSIDE RECORDS SUMMARY | 2024-08-26 02:46 | External Medical Summary ---
Author Name Unknown Address Unknown Organization K0G:LABORATORY [facility] 57-10 - [address] [place] [address] Laboratory Report Ordering Provider Test Date Status ADRIA REN 03/11/2024 08:04:12 Final Observation Date Value Abnormality Reference (Units ) Status SYNC LEUKOCYTES IN BLOOD BY AUTOMATED COUNT 03/11/2024 08:04:12 6.52 4.00-10.80 (K/uL) Final Segs 03/11/2024 08:04:12 65.2 40.0-75.0 (%) Final Lymphs % 03/11/2024 08:04:12 25.0 18.0-42.0 (%) Final Monos 03/11/2024 08:04:12 6.7 1.0-11.0 (%) Final Eosinophils 03/11/2024 08:04:12 2.6 0.0-6.0 (%) Final Basos 03/11/2024 08:04:12 0.5 0.0-2.0 (%) Final Absolute Segs 03/11/2024 08:04:12 4.25 1.80-7.70 (K/uL) Final Lymphs, absolute 03/11/2024 08:04:12 1.63 1.00-4.80 (K/ul) Final Monos, Abs 03/11/2024 08:04:12 0.44 0.00-1.10 (K/uL) Final Eos, Abs 03/11/2024 08:04:12 0.17 0.00-0.70 (K/uL) Final Basos, Abs 03/11/2024 08:04:12 0.03 0.00-0.20 (K/uL) Final Performing Location LABORATORY [facility] 57-1 0 - [address] [place] [address]
--- OUTSIDE RECORDS SUMMARY | 2024-08-26 02:46 | External Medical Summary ---
Author Name Unknown Address Unknown Organization K0G:LABORATORY [place] 57-[address] - [address] [facility] [address] [place] [address] Laboratory Report Ordering Provider Test Date Status MIK[place]OVINGTON 03/11/2024 08:04:12 Final Observation Date Value Abnormality Reference (Units ) Status Albumin 03/11/2024 08:04:12 3.8 3.8-5.0 (g/dL) Final AST (Aspartate aminotransferase) 03/11/2024 08:04:12 40 10-50 (U/L) Final Alk Phos 03/11/2024 08:04:12 117 35-130 (U/L) Final ALT (Alanine aminotransferase) 03/11/2024 08:04:12 49 10-50 (U/L) Final Bilirubin, Total 03/11/2024 08:04:12 0.5 <=1.2 (mg/dL) Final Bilirubin, Direct 03/11/2024 08:04:12 <0.2 0.0-0.3 (mg/dL) Final Protein 03/11/2024 08:04:12 7.9 6.0-8.3 (g/dL) Final Performing Location LABORATORY [place] 57-[address] 0 - [address] [place] [address]
--- OUTSIDE RECORDS SUMMARY | 2024-08-26 02:46 | External Medical Summary | Summary of Care ---
Author Name Unknown Organization [facility] Address [address] [place] [address] Phone [phone] Care Team Providers Care Building Analyst/Supervisor Name Role Phone FaizachuIgor DO Primary Care Provider [phone] Encounter Details Date Type Department Care Team (Late st Contact Info) Description 03/08/2024 Orders Only Outcomes Research Department [address] [place], [place] [id number] Wen Reid CHRA My[employer] Research Other*[id number] Allergies Active Allergy Reactions Criticality Noted Date Comments Metolazone Renal complications 11/10/2023 Note prior DTP with metolazone resulted in acute renal failure Other Allergy (See Comments) Rash Low 10/13/2022 1+ cocamidopropyl betaine Sglt2 Inhibitors Other (Please comment) High 09/04/2020 Genital infection Sulfa Antibiotics Rash 10/15/2016 documented as of this encounter (statuses as of 03/08/2024) Medications Medication Sig Dispensed Refills Start Date [...] 32 UNITS WITH DINNER PLUS CORRECTION PER [facility] OR DIRECTED UP TO [...] DX: E11.9 300 Strip 3 09/23/2023 Active Swjlk-0-haid Ethyl Esters 1 GM Oral Capsule (Lovaza) [...] than 7.0% ([facility]) INJECT UNDER THE SKIN 100 UNITS [...] of insulin ([facility]) Inject 2 mg under the skin [...] as of this encounter (statuses as of 03/08/2024) Active Problems Patient Care Coordination No te [...] stairs") Medication Regimen: Beta Ritchie Therapy: Carvedilol ARAINNA Inhibitor/ARB Therapy: Lisinopril Diuretic therapy: Torsemide SGLT2 Inhibitor: No Current SGLT2 (Describe in the Comments) Remote Patient Monitoring Vendor: [facility] [...] as of this encounter (statuses as of 03/08/2024) Resolved Problems Problem Noted Date Diagnosed Date [...] as of this encounter (statuses as of 03/08/2024) Immunizations Name Administration Dates Next Due COVID-19 mRNA, LNP-s, No Pre serve, 2-Dose Series (Moderna) 12/10/2020,11/12/2020 Hepatitis B, 20+ yrs 01/04/2018,08/03/2017,07/03 Pneumococcal Conjugate Vacci ne, 20-valent ([id number]) 06/09/2022 Pneumococcal Polysaccharide PPV23 (Pneumovax) 03/06/2020 RSV [...] 11:30 AM EDT Telemedicine Family Practice 65 [facility] 293 [facility] [place] [address] College, Pharmacist [address] [place] [address] 03/11/2024 8:30 AM EDT Office Visit Cardiology, [facility] 132 [place] [address] Elizabeth Pineda PA-C 132 [place] [address] 03/16/2024 4:00 PM EDT [facility], [facility] [place] [address] Love Stevens RN [address] [place] [address] 04/15/2024 8:30 AM EDT Scheduled Telephone [facility], [facility] [address] [facility] [place] [address] Mery Calderon RDN [address] [facility] [place] [address] 06/13/2024 11:15 AM EST Hospital Encounter ENDO [facility], Endoscopy Room [facility] [place] [phone] José Miguel Sifuentes MD 132 [facility] [place] [address] 06/13/2024 11:15 AM EST - 06/13/2024 11:45 AM EST Surgery ENDO [facility], Endoscopy Room [facility] [address] [facility] [place] [phone] José Miguel Sifuentes MD 132 [facility] [place] [address] COLONOSCOPY FLEXIBLE PROXIMAL DIAGNOSTIC 07/01/2024 2:20 PM EST Office Visit Family Practice 65 [facility] [place] 293 [facility] [place] [address] Igor Mcconnell DO 293 [place] [address] 07/08/2024 2:20 PM EST [facility] [address] [place] [address] Shivani Magallon MD 200 [facility] [place] [address] 08/08/2024 9:30 AM EST Nurse Only Ancillary Lazaro Hyde [address] [place] [address] Nurse Osito [address] [place] [address] 10/27/2024 1:00 PM EDT Office Visit Sleep Disorders Ctr [facility] [address] [place] [phone] Lindsey Sheikh CRNP [address] [place] [address] Scheduled Orders Name Type Priority Associated Diagnoses Orde r Schedule MYCODE SUBSEQUENT ADULT Lab Routine MyCode Research Other*[id number] Every 6 Months for 2 Occurrences starting 03/08/2024 until 03/28/2025 Scheduled Procedures Name Priority Associated Diagnoses Date/Ti [...] 12/17/2023, Additional history exists Hgb 02/23/2025 02/24/2024, 080 03/2024, 12/01/2023, Additional history exists Nephrology Referral [...] encounter Medical Devices Implanted Type Area Hand Model Device Identifier Shelf Expiration Date Model / Serial / Lot Lens Intraoc 21.0 - [id number] - [id number] Implanted:Qty: 1 on 01/22/2017 by Cheko Mcnamara MD at OR [facility] Right: Eye BAUSCH & LOMB 08/05/2021 [id number] / [id number] / [id number] Lens Intraoc 21.5 - [id number] - [id number] Implanted:Qty: 1 on 02/03/2017 by Cheko Mcnamara MD at OR [facility] Left: Eye BAUSCH & LOMB 09/02/2021 [id number] / [id number] / [id number] documented as of this encounter Visit Diagnoses Diagnosis MyCode Research Other*[id number] Special screening for malignant neoplasms, colon documented [...] and were consensually agreed upon. Care Teams Building Analyst/Supervisor Relationship Specialty Start Date End Date Igor Mcconnell DO 293 [place] [address] PCP - General Internal Medicine 02/12/24 documented as of this encounter
--- OUTSIDE RECORDS SUMMARY | 2024-08-26 02:46 | External Medical Summary | Summary of Care ---
Author Name Unknown Organization [facility] Address [address] [place] [address] Phone [phone] Care Team Providers Care Access Clinician Name Role Phone Igor Mcconnell DO Primary Care Provider [phone] Reason for Visit * Reason Onset Date Comments Medication Question 03/04/2024 Prednisone Encounter Details Date Type Department Care Team (Late st Contact Info) Description 03/04/2024 Telephone Family Practice 65 [facility] [place] 293 [place] [address] Igor Mcconnell DO 293 [place] [address] Medication Question (Prednisone) Allergies Active Allergy Reactions Criticality Noted Date [...] DX: E11.9 300 Strip 3 09/23/2023 Active Fkqyd-2-fzvl Ethyl Esters 1 GM Oral Capsule (Lovaza) [...] 03/02/2024 Active Allopurinol 100 MG Oral Tablet (Zyloprim)Indication s:Gout Take 2 Tablets by mouth in the morning. 60 Tablet 3 03/03/2024 Active predniSONE 5 MG Oral Tablet (Deltasone)Indicatio ns:Gout As directed for first part of taper. [...] in the Comments) Remote Patient Monitoring Vendor: [employer] Device(s): Connected Scale Self - Management Plan [...] has been better controlled recently. Monitor using [employer], [employer] Cindy. NEMESIO (acute kidney injury) 04/30/2022 Severe [...] yrs 01/04/2018,08/03/2017,07/03 Pneumococcal Conjugate Vacci ne, 20-valent ([id number]) 06/09/2022 Pneumococcal Polysaccharide PPV23 (Pneumovax) 03/06/2020 RSV [...] No 08/05/2023 Does the household have a [facility] source of income? (Household [...] Telephone Encounter - Leora Beth RN - 03/04/2024 10:29 AM EDT Notes reviewed from office visit. Pt states he was only given the 1mg tablets. Pal FALL contacted. Pharmacist states that he recently was ordered this by another provider and assumed that he would still have meds. She is aware that this is a new order and needs to be fully dispensed. She verbalizes that she will get this ready. * Telephone Encounter - JungHermila bowman OSA - 03/04/2024 10:16 AM EDT Received prednisone from Dr [facility]all[facility] did not give what the script said Told him to take another way He wants clarification documented in this encounter Plan of Treatment Upcoming Encounters Date Type Department Care Team (Late st Contact Info) Description 03/10/2024 11:30 AM EDT Telemedicine Family Practice 65 [facility] 293 [place] [address] College, Pharmacist [address] [address] 03/11/2024 8:30 AM EDT Office Visit Cardiology, [facility] [address] [place] [address] Elizabeth Pineda PA-C [address] [place] [address] 03/16/2024 4:00 PM EDT [facility], [facility] 132 [place] [address] Love Stevens, RN [address] [place] [address] 04/15/2024 8:30 AM EDT Scheduled Telephone [facility], [facility] [address] [facility] [place] [address] Mery Calderon RDN 1000 [address] [facility] [place] [address] 06/13/2024 11:15 AM EST Hospital Encounter ENDO [facility], Endoscopy Room [facility] [address] [place] [phone] José Miguel Sifuentes MD [address] [place] [address] 06/13/2024 11:15 AM EST - 06/13/2024 11:45 AM EST Surgery ENDO [facility], Endoscopy Room [facility] [address] [place] [phone] José Miguel Sifuentes MD 132 [facility] [place] [address] COLONOSCOPY FLEXIBLE PROXIMAL DIAGNOSTIC 07/01/2024 2:20 PM EST Office Visit Family [address] 293 [place] [address] Igor Mcconnell, 293 [facility] [address] 07/08/2024 2:20 PM EST Office Visit Nephrology, [facility] 200 [facility] [place] [address] Shivani Magallon MD 200 [place] [address] 08/08/2024 9:30 AM EST Nurse Only Ancillary [address] [place] [address] [place], Nurse [address] [place] [address] 10/27/2024 1:00 PM EDT Office Visit [facility] Disorders Ctr [facility] [address] [place] [phone] Lindsey Sheikh CRNP [address] [place] [address] Scheduled Procedures Name Priority Associated Diagnoses Date/Ti [...] this encounter Medical Devices Implanted Type Area Fund Controller Device Identifier Shelf Expiration Date Model / Serial / Lot Lens Intraoc 21.0 - [id number] - [id number] Implanted:Qty: 1 on 01/22/2017 by Cheko Mcnamara MD at OR [facility] Right: Eye BAUSCH & LOMB 08/05/2021 [id number] / [id number] / [id number] Lens Intraoc 21.5 - [id number] - [id number] Implanted:Qty: 1 on 02/03/2017 by Cheko Mcnamara MD at OR [facility] Left: Eye BAUSCH & LOMB 09/02/2021 [id number] / [id number] / [id number] documented as of this encounter Advance Directives [...] and were consensually agreed upon. Care Teams Access Clinician Relationship Specialty Start Date End Date Igor Mcconnell DO [address] [place] [address] PCP - General Internal Medicine 02/12/24 documented as of this encounter
--- OUTSIDE RECORDS SUMMARY | 2024-08-26 02:46 | External Medical Summary ---
Author Name Unknown Address Unknown Organization K01[place] [place] [address] [place] [address] Laboratory Report Ordering Provider Test Date Status ANGE GARCÍA 03/11/2024 08:04:12 Final Observation Date Value Abnormality Reference (Units ) Status Uric Acid 03/11/2024 08:04:12 10.2 Above high normal 3. 4-7.0 (mg/dL) Final Performing Location [facility] [place] [address] [place] [address]
--- OUTSIDE RECORDS SUMMARY | 2024-08-26 02:46 | External Medical Summary ---
Author Name Unknown Address Unknown Organization K01[place] [place] [address] [place] [address] Laboratory Report Ordering Provider Test Date Status ESTIVEN PEREZ 03/11/2024 08:04:12 Final Observation Date Value Abnormality Reference (Units ) Status MYCODE SPECIMEN-SST 03/11/2024 08:04:12 Freezing of extracted DNA, whole blood and/or serum. Final Performing Location [facility] [place] [address] [place] [address]
--- OUTSIDE RECORDS SUMMARY | 2024-08-26 02:46 | External Medical Summary ---
Author Name Unknown Address Unknown Organization K01:[facility] [place] - [address] [place] [address] Laboratory Report Ordering Provider Test Date Status ESTIVEN PEREZ 03/11/2024 08:04:12 Final Observation Date Value Abnormality Reference (Units ) Status MYCODE SPECIMEN-SST 03/11/2024 08:04:12 Freezing of extracted DNA, whole blood and/or serum. Final Performing Location LABORATORY [facility] [place] - [address] [place] [address]
--- OUTSIDE RECORDS SUMMARY | 2024-08-26 02:47 | External Medical Summary | Summary of Care ---
Author Name Unknown Organization [facility] Address [address] [place] [address] Phone [phone] Care Team Providers Care Diesel Locomotive Crane Operator Name Role Phone Igor Mcconnell DO Primary Care Provider [phone] Reason for Visit * Reason Comments Follow Up Encounter Details Date Type Department Care Team (Latest Contact Info) Description 03/01/2024 2:00 PM EDT Office Visit Family Practice [address], [place] [address] [place] [phone] Igor Mcconnell DO [address] [place] [address] Gout, arthropathy*; Type 2 diabetes mellitus with hemoglobin A1c goal of less than 8.0% ([facility]); 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 disease ([facility]); Mixed dyslipidemia; CHAPINCITO on CPAP; Type 2 diabetes mellitus with both eyes affected by severe nonproliferative retinopathy and macular edema, with long-term current use of insulin ([facility]); Arreola's esophagus with high grade dysplasia; Acute pain of left knee; Acute right ankle pain Allergies Active Allergy Reactions Criticality Noted Date Comments Metolazone Renal complications 11/10/2023 Note prior DTP with metolazone resulted in acute renal failure Other Allergy (See Comments) Rash Low 10/13/2022 1+ cocamidopropyl betaine Sglt2 Inhibitors Other (Please comment) High 09/04/2020 Genital infection Sulfa Antibiotics Rash 10/15/2016 documented as of this encounter (statuses as of 03/01/2024) Medications Medication Sig Dispensed Refills Start Date [...] WITH DINNER PLUS CORRECTION PER [facility] OR DIRECTED UP TO 120 UNITS PER DAY 120 mL 3 12/19/19 23 024 Active BD Pen Needle Short U/F [...] E11.9 300 Strip 3 09/23/19 24 Active Gbhkl-0-ptao Ethyl Esters 1 GM Oral Capsule (Lovaza) [...] one week. 15 Tablet 3 02/08/20 24 Active Vitamin D 125 MCG (5000 [...] before bedtime. 180 Tablet 02/18/20 24 Active Allopurinol 100 MG Oral Tablet (Zyloprim)Indicati ons:Gout Take 0.5 Tablets by mouth in the morning. 30 Tablet 3 02/26/20 24 Active predniSONE 5 MG Oral Tablet (Deltasone)Indicat ions:Gout Take 1 Tablet by mouth in the morning for 14 days. As directed. 14 Tablet 02/26/20 24 024 Active Clotrimazole-Betam ethasone 1-0.05 % External Cream (Lotrisone) Apply 45 g topically to affected area in the morning and 45 g before bedtime. To scrotal area. 90 g 03/01/20 24 Active Clotrimazole-Betam ethasone 1-0.05 % External Cream (Lotrisone) APPLY TOPICALLY TO AFFECTED AREA(S) TWO TIMES A DAY. 90 g 1 08/27/19 24 024 Discontinued(Re fill) predniSONE 20 MG Oral Tablet (Deltasone) Take 1 Tablet by mouth in the morning for 5 days. 5 Tablet 02/13/20 24 024 Discontinued predniSONE 20 MG Oral Tablet (Deltasone) Take 1 Tablet by mouth in the morning for 5 days. 5 Tablet 02/20/20 24 024 Discontinued documented as of this encounter (statuses as of 03/01/2024) Active Problems Patient Care Coordination No te [...] in the Comments) Remote Patient Monitoring Vendor: [employer] Device(s): Connected Scale Self - Management Plan [...] Continues on lovaza 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 [employer]a History of tobacco use 08/18/2017 CHAPINCITO [...] as of this encounter (statuses as of 03/01/2024) Resolved Problems Problem Noted Date Diagnosed Date [...] as of this encounter (statuses as of 03/01/2024) Immunizations Name Administration Dates Next Due COVID-19 mRNA, LNP-s, No Pre serve, 2-Dose Series (Moderna) 12/10/2020,11/12/2020 Hepatitis B, 20+ yrs 01/04/2018,08/03/2017,07/03 Pneumococcal Conjugate Vacci ne, 20-valent ([id number]) 06/09/2022 Pneumococcal Polysaccharide PPV23 (Pneumovax) 03/06/2020 RSV [...] Sign Reading Time Taken Comments Blood Pressure 120/60 03/01/2024 2:23 PM EDT Pulse 70 03/01/2024 2:23 PM EDT Temperature 36.1 C (97 F) 03/01/2024 2:23 PM EDT Respiratory Rate 20 03/01/2024 2:23 PM EDT Oxygen Saturation 94% 03/01/2024 2:23 PM EDT Inhaled Oxygen Concentration - - Weight 130.6 kg (288 lb) 03/01/2024 2:23 PM EDT Height 182.9 cm (6') 03/01/2024 2:23 PM EDT Body Mass Index 39.06 03/01/2024 2:23 PM EDT documented in this encounter Progress Notes * Igor Mcconnell, DO - 03/01/2024 2:54 PM EDT SUBJECTIVE: Tony Delong is a 64 year old male. Chief Complaint Patient presents with Follow Up HPI: Patient is a 64 year old male with a history of DM type II, CKD stage IV, Diastolic CHF, COPD, Hyperlipidemia, HTN, and Sleep Apnea that is seen for follow up on right ankle pain. The patient was started on Allopurinol for treatment of gout 2 weeks ago. He now has right shoulder and left knee pain.He is ambulating with a cane. Chronic shortness of breath is stable. No chest pain is present. Patient Active Problem List Diagnosis Type [...] disease, with long-term current use of insulin(HCC) Current Outpatient Medications Medication Sig Dispense Refill Aspirin 81 MG Tablet Take 1 Tablet by mouth every evening. B Complex Capsule Take 1 Cap by mouth daily. CPAP every night at bedtime. NovoLOG FlexPen 100 UNIT/ML Subcutaneous Solution Pen-injector INJECT UNDER THE SKIN 26 UNITS AT BREAKFAST, 26 UNITS AT LUNCH, 32 UNITS WITH DINNER PLUS CORRECTION PER [facility] OR DIRECTED UP TO120 UNITS PER DAY 120 mL 3 Carvedilol 25 MG Oral Tablet [...] 1 Tablet before bedtime. 300 Tablet 3 Qmpba-2-irbq Ethyl Esters 1 GM Oral Capsule (Lovaza) [...] as needed for Nausea. 30 Tablet 0 Torsemide 20 MG Oral [...] 1 Tablet before bedtime. 180 Tablet 3 Allopurinol 100 MG Oral Tablet (Zyloprim) Take 0.5 Tablets by mouth in the morning. 30 Tablet 3 predniSONE 5 MG Oral Tablet (Deltasone) Take 1 Tablet by mouth in the morning for 14 days. As directed. 14 Tablet 0 Clotrimazole-Betamethasone 1-0.05 % External Cream (Lotrisone) Apply 45 g topically to affected area in the morning and 45 g before bedtime. To scrotal area. 90 g 1 OneTouch Delica Lancets 33G Use 3 times daily - E11.9 (Patient taking differently: Use 3 times daily - E11.9) 300 Each 3 FreeStyle Cindy 2 Sensor Use as directed every 14 days . 6 Each 3 Metamucil 28.3 % Oral Powder (Psyllium) Take by mouth daily. At least 1 hour after other medications BD Pen Needle Short U/F 31G X 8 MM (Insulin Pen Needle) USE TO INJECT INSULINS 5 TIMES DAILY 500 Each 3 OneTouch Verio In Vitro Strip (Glucose Blood) USE TO TEST BLOOD GLUCOSE 3 TIMES A DAY. DX: E11.9 300 Strip 3 Tresiba FlexTouch 200 UNIT/ML Subcutaneous Solution Pen-injector INJECT UNDER THE SKIN 100 UNITS TWICE DAILY OR DIRECTED (Patient taking differently: Inject 90 Units under the skin 2 times a day.)90 mL 3 No current facility-administered medications for this visit. The patient's medication list was reviewed and updated as needed. Past Medical History: Diagnosis Date NEMESIO (acute kidney injury) ([facility]) 04/30/2022 NEMESIO (acute kidney injury) ([facility]) 10/20/2023 creat 4.5 [facility] Diabetes ([facility]) Heart failure, diastolic, due to HTN ([facility]) 01/25/2021 High blood pressure High cholesterol CHAPINCITO on CPAP 08/18/2017 ?[id number] Sleep apnea, obstructive Past Surgical History: Procedure Laterality Date ANKLE ARTHROSCOPY/SURGERY Right 07/2016 trimalleloar frac--ext fixation f/b ORIF - U Gm H COLONOSCOPY, DIAGNOSTIC (RECTUM) 01/01/2018 adenomatous polyp, repeat 5 yrs/COLONOSCOPY FLEXIBLE PROXIMAL DIAGNOSTIC performed by Dav Yap MD at ENDOSCOPY [facility] EGD, FLEXIBLE, DIAGNOSTIC 11/13/2021 esophageal polyp, gastritis / ESOPHAGOGASTRODUODENOSCOPY (EGD), FLEXIBLE, TRANSORAL, DIAGNOSTIC performed by Emelia Conley DO at ENDOSCOPY [facility] EGD, FLEXIBLE, DIAGNOSTIC N/A 03/20/2022 ESOPHAGOGASTRODUODENOSCOPY (EGD), FLEXIBLE, TRANSORAL, DIAGNOSTIC performed by Darian Goodman MD [facility] EGD, FLEXIBLE, DIAGNOSTIC N/A 06/16/2022 ESOPHAGOGASTRODUODENOSCOPY (EGD), FLEXIBLE, TRANSORAL, DIAGNOSTIC performed by Darian Goodman MD [facility] EGD, FLEXIBLE, ENDO MUCOSAL RESECTION 01/24/2022 GEJ polyp - LGD, HGD / [facility] EGD, W/ENDOSCOPIC US 11/13/2021 Barretts w/ HGD, fatty liver / ESOPHAGOGASTRODUODENOSCOPY (EGD), FLEXIBLE, TRANSORAL, ENDOSCOPIC ULTRASOUND performed by Emelia Conley DO at ENDOSCOPY [facility] EGD, W/ENDOSCOPIC US 01/24/2022 bile duct stone, enlarged LN - normal bx, eso mass - [facility] FOREARM/WRIST SURGERY NEC 1989 LUMBAR / SACRAL EPIDURAL, SINGLE LEVEL 02/04/2018 INJECTION TRANSFORAMINAL EPIDURAL LUMBAR OR SACRAL performed by Uday Masterson DO at OR [facility] REMOVE CATARACT, INSERT LENS PROSTH Right 01/22/2017 right EXTRACAPSULAR CATARACT REMOVAL WITH INTRAOCULAR LENS performed by Cheko Mcnamara MD at OR [facility] REMOVE CATARACT, INSERT LENS PROSTH Left 02/03/2017 left EXTRACAPSULAR CATARACT REMOVAL WITH INTRAOCULAR LENS performed by Cheko Mcnamara MD at OR [facility] SACROILIAC JOINT INJECT W/GUIDANCE 11/20/2021 INJECTION SACROILIAC JOINT performed by Uday Masterson DO at OR [facility] THIGH OR KNEE SURGERY NEC Left [...] betaine Review of Systems Constitutional: Positive for fatigue and unexpected weight change. Negative for appetite change, chills and fever. Respiratory: Positive for shortness of breath. Negative for cough and wheezing. Cardiovascular: Negative for chest pain, palpitations and leg swelling. Gastrointestinal: Negative for abdominal pain, blood in stool, constipation, diarrhea, nausea and vomiting. Genitourinary: Negative for dysuria, frequency and hematuria. Musculoskeletal: Right shoulder, left knee and bilateral ankle pain are present. Neurological: Negative for dizziness, syncope and headaches. Psychiatric/Behavioral: Negative for confusion, decreased concentration and sleep disturbance. OBJECTIVE: BP 120/60 | Pulse 70 | Temp 36.1 C (97 F) | Resp 20 | Ht 1.829 m (6') | Wt 130.6 kg (288 lb) | SpO2 94% | BMI 39.06 kg/m | BSA 2.58 m Physical Exam Vitals and nursing note [...] and time. Mental status is at baseline. Motor: No weakness. Gait: Gait abnormal. Psychiatric: Mood and Affect: Mood normal. Behavior: Behavior normal. Thought Content: Thought content normal. 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, with long-term current use of insulin (HCC) Arreola's esophagus with high grade dysplasia Continue Omeprazole Acute pain of left knee - LYME DISEASE ANTIBODY SCREEN WITH REFLEX TO CONFIRMATION; Future; Expected date: 03/01/2024 - ANTINUCLEAR ANTIBODY (MATTHEW) EIA SCREEN WITH REFLEX AB QUANT; Future; Expected date: 03/01/2024 - RHEUMATOID FACTOR; Future; Expected date: 03/01/2024 - CYCLIC CITRULLINATED PEPTIDE IGG ANTIBODY; Future; Expected date: 03/01/2024 - CRP (INFLAMMATORY MARKER); Future; Expected date: 03/01/2024 Acute right ankle pain - LYME DISEASE ANTIBODY SCREEN WITH REFLEX TO CONFIRMATION; Future; Expected date: 03/01/2024 - ANTINUCLEAR ANTIBODY (MATTHEW) EIA SCREEN WITH REFLEX AB QUANT; Future; Expected date: 03/01/2024 - RHEUMATOID FACTOR; Future; Expected date: 03/01/2024 - CYCLIC CITRULLINATED PEPTIDE IGG ANTIBODY; Future; Expected date: 03/01/2024 - CRP (INFLAMMATORY MARKER); Future; Expected date: 03/01/2024 Other orders - Clotrimazole-Betamethasone 1-0.05 % External Cream (Lotrisone); Apply 45 g topically to affected area in the morning and 45 g before bedtime. To scrotal area. Follow Up: Return if symptoms worsen or fail to improve. Igor Mcconnell DO 2:55 PM 03/01/2024 documented in this encounter Nursing Notes * Zulema Frazier LPN - 03/01/2024 2:22 PM EDT States fell down stair in basement. This is not the reason for the pain. Joints painful all over. documented in this encounter Plan of Treatment Upcoming Encounters Date Type Department Care Team (Late st Contact Info) Description 03/02/2024 3:30 PM EDT Scheduled Telephone [facility], [facility] [address] [facility] [place] [address] Mery Calderon, RDN [address] [facility] [place] [address] 03/03/2024 2:20 PM EDT Office Visit Nephrology, [facility] [address] [facility] [place], [place] [address] Shivani Magallon MD [address] [facility] [place] [address] 03/10/2024 11:30 AM EDT Telemedicine Family Practice [address] [facility] [address] [place] [phone] College, Pharmacist [address] [place] [address] [address] [facility] [place] [place] [address] 03/11/2024 8:30 AM EDT Office Visit Cardiology, [facility] [address] [place] [address] Elizabeth Pineda PASuzette [address] [place] [address] 03/16/2024 4:00 PM EDT Home Visit [facility] [address] [place] [address] Love Stevens, RN [address] [place] [address] 06/13/2024 11:15 AM EST Hospital Encounter [facility]O [facility], Endoscopy Room [facility] [address] [place] [phone] José Miguel Sifuentes MD [address] [place] [address] 06/13/2024 11:15 AM EST - 06/13/2024 11:45 AM EST Surgery ENDO [facility], Endoscopy Room [facility] [address] [place] [phone] José Miguel Sifuentes MD [address] [facility] [place] [address] COLONOSCOPY FLEXIBLE PROXIMAL DIAGNOSTIC 07/01/2024 2:20 PM EST Office Visit Family Practice [address] [place] [address], [place] [address] [place] [address] Igor Mcconnell, DO [address] [facility] [place] [address] 08/08/2024 9:30 AM EST Nurse Only Ancillary [address] [place] [address] [place], Nurse [address] [place] [address] 10/27/2024 1:00 PM EDT Office Visit [facility] [address] [facility] [place] [phone] Lindsey Sheikh CRNP [address] [facility] [place] [address] Scheduled Orders Name Type Priority Associated Diagnoses Orde r Schedule LYME DISEASE ANTIBODY SCREEN WITH REFLEX TO CONFIRMATION Lab Routine Acute pain of left knee Acute right ankle pain Expected: 03/01/2024 (Approximate), Expires: 03/01/2025 ANTINUCLEAR ANTIBODY (MATTHEW) EIA SCREEN WITH REFLEX AB QUANT Lab Routine Acute pain of left knee Acute right ankle pain Expected: 03/01/2024 (Approximate), Expires: 03/01/2025 RHEUMATOID FACTOR Lab Routine Acute pain of left knee Acute right ankle pain Expected: 03/01/2024 (Approximate), Expires: 03/01/2025 CYCLIC CITRULLINATED PEPTIDE IGG ANTIBODY Lab Routine Acute pain of left knee Acute right ankle pain Expected: 03/01/2024, Expires: 03/01/2025 CRP (INFLAMMATORY MARKER) Lab Routine Acute pain of left knee Acute right ankle pain Expected: 03/01/2024 (Approximate), Expires: 03/01/2025 Scheduled Procedures Name Priority Associated Diagnoses Date/Ti [...] ( season) 2024 12/10/2020, 11/12/2020 Postponed from 03/06/2023 (Unavailable) Influenza Vaccine (FLU shot) (#1) 2024 04/01/2023, 04/27/2022, 03/21/2021, Additional history exists Albumin/Creatinine Ratio 06/11/2024 023, 09/22/2022, 09/02/2022, Additional history exists Depression Screening 08/05/2024 08/05/2023 HbA1c 08/14/2024 02/12/2024, 10/04, 06/11/2023, Additional history exists GFR 08/26/2024 02/24/2024, 08/0 03/2024, 02/04/2024, Additional history exists Diabetic Foot Exam 10/19/2024 10/20/2023, 0 09/02/2022, 08/16/2021, Additional history exists Phosphate 10/25/2024 10/26/2023, 10/04, 06/11/2023, Additional history exists Nephrology Referral 12/15/2024 12/16/2023 Diabetic Eye Exam 12/16/2024 12/17/2023, , 12/17/2023, Additional history exists Hgb 02/23/2025 02/24/2024, 08/0 03/2024, 12/01/2023, Additional history exists O2 ASSESSMENT COMPLETED IN PAST YEAR FOR COPD 03/01/2025 03/01/2024 Arreola's Esophagus Surveilance 06/16/2025 06/16/2022, 06/16/2022, 03/20/2022, [...] this encounter Medical Devices Implanted Type Area Architect Internship Device Identifier Shelf Expiration Date Model / Serial / Lot Lens Intraoc 21.0 - [id number] - [id number] Implanted:Qty: 1 on 01/22/2017 by Cheko Mcnamara MD at OR [facility] Right: Eye [employer] 08/05/2021 [id number] / [id number] / [id number] Lens Intraoc 21.5 - [id number] - [id number] Implanted:Qty: 1 on 02/03/2017 by Cheko Mcnamara MD at OR [facility] Left: Eye [employer] 09/02/2021 [id number] / [id number] / [id number] documented as of this encounter Visit Diagnoses Diagnosis Gout, arthropathy- Primary Gouty arthropathy, unspecified Type 2 diabetes mellitus with hemoglobin A1c goal of less than 8.0% (HCC) 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) Mixed dyslipidemia Mixed hyperlipidemia CHAPINCITO on CPAP Obstructive sleep apnea (adult) (pediatric) Type 2 diabetes mellitus with both eyes affected by severe nonproliferative retinopathy and macular edema, with long-term current use of insulin (HCC) Arreola's esophagus with high grade dysplasia Arreola's esophagus Acute pain of left knee Acute right ankle pain Special screening for malignant neoplasms, colon documented [...] and were consensually agreed upon. Care Teams Diesel Locomotive Crane Operator Relationship Specialty Start Date End Date Igor Mcconnell DO [address] [facility] [place] [place] [address] PCP - General Internal Medicine 02/12/24 documented as of this encounter
--- OUTSIDE RECORDS SUMMARY | 2024-08-26 02:47 | External Medical Summary | Summary of Care ---
Author Name Unknown Organization [facility] Address [address] [place] [address] Phone [phone] Care Team Providers Care Canary Breeder Name Role Phone Igor Mcconnell DO Primary Care Provider [phone] Reason for Visit * Reason Comments Follow Up Encounter Details Date Type Department Care Team (Latest Contact Info) Description 03/01/2024 2:00 PM EDT Office Visit Family Practice [address], [place] [address] [place] [phone] Igor Mcconnell DO [address] [place] [address] Gout, arthropathy*; Type 2 diabetes mellitus with hemoglobin A1c goal of less than 8.0% ([facility]); Hypertensive heart and kidney disease with chronic diastolic congestive heart failure and stage 4 chronic kidney disease ([facility]); Mixed dyslipidemia; CHAPINCITO on CPAP; Type 2 diabetes mellitus with both eyes affected by severe nonproliferative retinopathy and macular edema, with long-term current use of insulin ([facility]); Arreola's esophagus with high grade dysplasia; Acute [...] E11.9 300 Strip 3 09/23/19 24 Active Cgysv-1-yrtl Ethyl Esters 1 GM Oral Capsule (Lovaza) [...] [facility]) INJECT UNDER THE SKIN 100 UNITS [...] in the Comments) Remote Patient Monitoring Vendor: [employer] Device(s): Connected Scale Self - Management Plan [...] Continues on lovaza 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 [employer] History of tobacco use 08/18/2017 CHAPINCITO on [...] yrs 01/04/2018,08/03/2017,07/03 Pneumococcal Conjugate Vacci ne, 20-valent ([id number]) 06/09/2022 Pneumococcal Polysaccharide PPV23 (Pneumovax) 03/06/2020 RSV [...] [facility] OR DIRECTED UP TO120 UNITS PER [...] 1 Tablet before bedtime. 300 Tablet 3 Wmirq-7-aitl Ethyl Esters 1 GM Oral Capsule (Lovaza) [...] History: Diagnosis Date NEMESIO (acute kidney injury) ([facility]) 04/30/2022 NEMESIO (acute kidney injury) ([facility]) 10/20/2023 creat 4.5 [facility] Diabetes ([facility]) Heart failure, diastolic, due to HTN ([facility]) 01/25/2021 High blood pressure High cholesterol CHAPINCITO on CPAP 08/18/2017 ?[id number] Sleep apnea, obstructive Past Surgical History: Procedure Laterality Date ANKLE ARTHROSCOPY/SURGERY Right 07/2016 trimalleloar frac--ext fixation f/b ORIF - U Gm H COLONOSCOPY, DIAGNOSTIC (RECTUM) 01/01/2018 adenomatous polyp, repeat 5 yrs/COLONOSCOPY FLEXIBLE PROXIMAL DIAGNOSTIC performed by Dav Yap MD at ENDOSCOPY [facility] EGD, FLEXIBLE, DIAGNOSTIC 11/13/2021 esophageal polyp, gastritis / ESOPHAGOGASTRODUODENOSCOPY (EGD), FLEXIBLE, TRANSORAL, DIAGNOSTIC performed by Emelia Conley DO at ENDOSCOPY [facility] EGD, FLEXIBLE, DIAGNOSTIC N/A 03/20/2022 ESOPHAGOGASTRODUODENOSCOPY (EGD), FLEXIBLE, TRANSORAL, DIAGNOSTIC performed by Darian Goodman MD atENDOSCOPY [facility] EGD, FLEXIBLE, DIAGNOSTIC N/A 06/16/2022 ESOPHAGOGASTRODUODENOSCOPY (EGD), FLEXIBLE, TRANSORAL, DIAGNOSTIC performed by Darian Goodman MD atENDOSCOPY [facility] EGD, FLEXIBLE, ENDO MUCOSAL RESECTION 01/24/2022 GEJ polyp - LGD, HGD / [facility] EGD, W/ENDOSCOPIC US 11/13/2021 Barretts w/ HGD, fatty liver / ESOPHAGOGASTRODUODENOSCOPY (EGD), FLEXIBLE, TRANSORAL, ENDOSCOPIC ULTRASOUND performed by Emelia Conley DO at ENDOSCOPY [facility] EGD, W/ENDOSCOPIC US 01/24/2022 bile duct stone, enlarged LN - normal bx, eso mass - [facility] FOREARM/WRIST SURGERY NEC 1989 LUMBAR / SACRAL EPIDURAL, SINGLE LEVEL 02/04/2018 INJECTION TRANSFORAMINAL EPIDURAL LUMBAR OR SACRAL performed by Uday Masterson DO at OR [facility] REMOVE CATARACT, INSERT LENS PROSTH Right 01/22/2017 right EXTRACAPSULAR CATARACT REMOVAL WITH INTRAOCULAR LENS performed by Cheko Mcnamara MD at OR [facility] REMOVE CATARACT, INSERT LENS PROSTH Left 02/03/2017 left EXTRACAPSULAR CATARACT REMOVAL WITH INTRAOCULAR LENS performed by Cheko Mcnamara MD at OR [facility] SACROILIAC JOINT INJECT W/GUIDANCE 11/20/2021 INJECTION SACROILIAC JOINT performed by Uday Masterson DO at OR [facility] THIGH OR KNEE SURGERY NEC Left [...] PM EDT Scheduled Telephone [facility], [facility] [address] [facility] [place] [address] Mery Calderon, RDN [address] [facility] [place] [address] 03/03/2024 2:20 PM EDT Office Visit Nephrology, [facility] [address] [facility] [place], [place] [address] Shivani Magallon MD [address] [facility] [place] [address] 03/10/2024 11:30 AM EDT Telemedicine Family Practice [address] [facility] 293 [place] [phone] College, Pharmacist [address] [place] [address] 293 [facility] [place] [address] 03/11/2024 8:30 AM EDT Office Visit Cardiology, [facility] [address] [place] [address] Elizabeth Pineda PASuzette [address] [place] [address] 03/16/2024 4:00 PM EDT [facility] Visit [facility] at [facility] [address] [place] [address] Love Stevens, RN [address] [place] [address] 06/13/2024 11:15 AM EST Hospital Encounter ENDO [facility], Endoscopy Room [facility] [address] [place] [phone] José Miguel Sifuentes MD [address] [place] [address] 06/13/2024 11:15 AM EST - 06/13/2024 11:45 AM EST Surgery ENDO [facility], Endoscopy Room [facility] [address] [place] [phone] José Miguel Sifuentes MD 132 [facility] [place] [address] COLONOSCOPY FLEXIBLE PROXIMAL DIAGNOSTIC 07/01/2024 2:20 PM EST Office Visit Family Practice [address] [place] [address], [place] 293 [place] [address] Igor Mcconnell, DO 293 [facility] [place] [address] 08/08/2024 9:30 AM EST Nurse Only Ancillary [address] [place] [address] [place], Nurse [address] [place] [address] 10/27/2024 1:00 PM EDT Office Visit [facility] Disorders C[facility] [place] [phone] Lindsey Sheikh CRNP 132 [facility] [place] [address] Scheduled Orders Name Type Priority Associated Diagnoses [...] this encounter Medical Devices Implanted Type Area [employer] Professor Device Identifier Shelf Expiration Date Model / Serial / Lot Lens Intraoc 21.0 - [id number] - [id number] Implanted:Qty: 1 on 01/22/2017 by Cheko Mcnamara MD at OR [facility] Right: Eye [employer] 08/05/2021 [id number] / [id number] / [id number] Lens Intraoc 21.5 - [id number] - [id number] Implanted:Qty: 1 on 02/03/2017 by Cheko Mcnamara MD at OR [facility] Left: Eye [employer]OMB 09/02/2021 [id number] / [id number] / [id number] documented as of this encounter Visit Diagnoses [...] and were consensually agreed upon. Care Teams Canary Breeder Relationship Specialty Start Date End Date Igor Mcconnell DO [address] [place] [place] [address] PCP - General Internal Medicine 02/12/24 documented as of this encounter
--- OUTSIDE RECORDS SUMMARY | 2024-08-26 02:47 | External Medical Summary | Summary of Care ---
Author Name Unknown Organization [facility] Address [address] [facility] [address] Phone [phone] Care Team Providers Care [employer] Name Role Phone Igor Mcconnell DO Primary Care Provider [phone] Reason for Visit * Reason Comments [facility]: Maintenance Encounter Details Date Type Department Care Team (Late st Contact Info) Description 02/29/2024 4:00 PM EDT Home Visit [facility], [facility] [address] [place] [address] Love Stevens, RN [address] [place] [address] Allergies Active Allergy Reactions Criticality Noted Date [...] UNITS WITH DINNER PLUS CORRECTION PER [facility] OR DIRECTED UP TO [...] E11.9 300 Strip 3 09/23/19 24 Active Zfvdx-4-bnvu Ethyl Esters 1 GM Oral Capsule (Lovaza) [...] week. 2 mL 11 02/16/20 24 Active Potassium Chloride G[facility] ER 20 MEQ Oral Tablet Extended Release Take 1 Tablet by mouth in the morning and 1 Tablet before bedtime. 180 Tablet 3 02/18/20 24 Active Allopurinol 100 MG Oral [...] in the Comments) Remote Patient Monitoring Vendor: [employer] Device(s): Connected Scale Self - Management Plan Double dose of Torsemide for 3 days Exacerbation Plan BMP Chest X-Ray Additional Comments: Recommended using double torsemide for 3 days in a row, rather than 1 day like he has been doing Continue using [employer] scale Low sodium diet Type 2 diabetes [...] yrs 01/04/2018,08/03/2017,07/03 Pneumococcal Conjugate Vacci ne, 20-valent ([id number]) 06/09/2022 Pneumococcal Polysaccharide PPV23 (Pneumovax) 03/06/2020 RSV [...] Sign Reading Time Taken Comments Blood Pressure 144/62 02/29/2024 2:43 PM EDT Pulse 70 02/29/2024 2:43 PM EDT Temperature 36.9 C (98.4 F) 02/29/2024 2:43 PM ED T Respiratory Rate 18 02/29/2024 2:43 PM EDT Oxygen Saturation 96% 02/29/2024 2:43 PM EDT Inhaled Oxygen Concentration - - Weight - - Height - - Body Mass Index - - documented in this encounter Progress Notes * Love Stevens RN - 02/29/2024 2:29 PM EDT Images from the original note were not included. [facility] [employer] Visit Date: 02/29/2024 Time: 2:30 PM Name: Tony Delong : 1960 Current Concerns: Patient seen for follow up- Upon entering- patient sitting in recliner. Reports he is really painful. He is unable to do the things he wants to do. Barely be able to get up in his truck. Facial grimacing noted with movement. Recent prednisone bursts- Prednisone 20mg daily x 5 days. 01/26, 02/12, 02/19- Gout- Most recent uric acid 14.5- PCP increased allopurinol to 50mg daily and Prednisone 5mg daily x 2 weeks starting 02/26/24. Pain 03/15 Metolazone dose 02/26, 02/19, 02/13, 02/12 Reinforced to only take Metolazone 2.5mg x 1 dose if >3lb weight gain/24 hours or >5lb weightgain in one week. Voices understanding. See [facility] weights below. VS- BP slightly elevated otherwise wnl Lungs clear but diminished Sob with exertion No LE edema noted Voiding without difficulty Bowels wnl- per report Appetite good Taking fluids- restriction Blood sugars- has Cindy- managed by MTM. Problems/Symptoms: Review of Systems Constitutional: Negative. HENT: Negative. Respiratory: Positive for shortness of breath. Genitourinary: Negative. Musculoskeletal: Negative. Skin: Negative. Neurological: Negative. Hematological: Negative. Psychiatric/Behavioral: Negative. Physical Exam: BP 144/62 (BP Site: Right Arm, BP Position: Sitting, BP Cuff Size: Regular) | Pulse 70 | Temp 36.9 C (98.4 F) (Tympanic) | Resp 18 | SpO2 96% Pain 9 Physical Exam Constitutional: Appearance: Normal appearance. Cardiovascular: [...] No. No falls since last visit Treatment/Plan: Patient to lab at [facility] prior to PCP appointment tomorrow. APAP prn discomfort- continue prednisone/allopurinol daily. Encouraged heating pad- rest Continue medications as prescribed Keep all upcoming MD appointments Fall precautions Fluid restriction Low na diet [facility] scales daily RN CM follow up in 2 weeks. Home Interventions Provided: Reinforced current Plan of Care, including self-management and medication regimen Patient's Goals of Care: Pain relief Manage blood sugars Maintain baseline weight Continue to drive Patient's 'Red Flags': Increase edema BLE Sob above baseline Weight gain 3lbs/24 hours- 3-5lbs in one week Patient Needs to Remember: Call [facility] at with any new or worsening health concerns or problems, red flag symptoms. Referrals Needed: N/a Follow Up: Is there cellular connectivity/connectivity in the home? Yes Does the patient have internet in the home? Yes Patient encouraged to call the intake phone number for all urgent but not emergent issues. Scheduled to follow up with patient in 2 weeks. Love Du RN 02/29/2024 2:30 PM documented in this encounter Plan of Treatment Upcoming Encounters Date Type Department Care Team (Late st Contact Info) Description 03/02/2024 3:30 PM EDT Scheduled [facility]phone [facility], [facility] [address] [facility] [facility] [phone] Mery Calderon RDN [address] [facility] [place] [address] 03/03/2024 2:20 PM EDT Office Visit Nephrology, [facility] [address] [place] [address] Shivani Magallon MD [address] [place] [address] 03/10/2024 11:30 AM EDT Telemedicine Family Practice [address] [facility], [place] 293 [facility], [place] [phone] College, Pharmacist [address] [place] [address], [place] [address] 03/11/2024 8:30 AM EDT Office Visit Cardiology, [facility] [address] [place] [address] Elizabeth Pineda PA-C [address] [place] [address] 03/16/2024 4:00 PM EDT Home Visit [facility], [facility] [address] [place] [address] Love Stevens RN [address] [place] [address] 06/13/2024 11:15 AM EST Hospital Encounter ENDO [facility], Endoscopy Room [facility] [address] [place] [phone] José Miguel Sifuentes MD [address] [place] [address] 06/13/2024 11:15 AM EST - 06/13/2024 11:45 AM EST Surgery ENDO [facility], Endoscopy Room [facility] [address] [place] [phone] José Miguel Sifuentes MD [address] [place] [address] COLONOSCOPY FLEXIBLE PROXIMAL DIAGNOSTIC 07/01/2024 2:20 PM EST Office Visit Family Practice [address] [place] [address] 293 [facility], [place] [address] Igor Mcconnell, 293 [facility], [place] [address] 08/08/2024 9:30 AM EST Nurse Only Ancillary Lazaro Hyde[address] [place] [address] Nurse Osito [address] [place] [address] 10/27/2024 1:00 PM EDT Office Visit Sleep Disorders Ctr [facility] [address] [place] [phone] Lindsey Sheikh CRNP [address] [place] [address] Scheduled Procedures Name Priority Associated Diagnoses Date/Ti [...] 02/12/2024, 04/1 01/2024, 06/11/2023, Additional history exists GFR 08/26/2024 02/24/2024, 08/0 03/2024, 02/04/2024, Additional history exists Diabetic Foot Exam 10/19/2024 10/20/2023, 0 09/02/2022, 08/16/2021, Additional history exists Phosphate 10/25/2024 10/26/2023, 10/04, 06/11/2023, Additional history exists Nephrology Referral 12/15/2024 12/16/2023 Diabetic Eye Exam 12/16/2024 12/17/2023, , 12/17/2023, Additional history exists Hgb 02/23/2025 02/24/2024, 080 03/2024, 12/01/2023, Additional history exists O2 ASSESSMENT [...] this encounter Medical Devices Implanted Type Area Windows Server Administrator Device Identifier Shelf Expiration Date Model / Serial / Lot Lens Intraoc 21.0 - [id number] - [id number] Implanted:Qty: 1 on 01/22/2017 by Cheko Mcnamara MD at OR [facility] Right: Eye [employer] 08/05/2021 [id number] / [id number] / [id number] Lens Intraoc 21.5 - [id number] - [id number] Implanted:Qty: 1 on 02/03/2017 by Cheko Mcnamara MD at OR [facility] Left: Eye [employer]OMB 09/02/2021 [id number] / [id number] / [id number] documented as of this encounter Advance Directives [...] and were consensually agreed upon. Care Teams [employer] Relationship Specialty Start Date End Date Igor Mcconnell DO [address] [facility] [place] [address] PCP - General Internal Medicine 02/12/24 documented as of this encounter
--- OUTSIDE RECORDS SUMMARY | 2024-08-26 02:47 | External Medical Summary | Summary of Care ---
Author Name Unknown Organization [facility] Address [address] [place] [address] Phone [phone] Care Team Providers Care Transmission Tester Name Role Phone Igor Mcconnell DO Primary Care Provider [phone] Reason for Visit * Reason Comments Follow Up Encounter Details Date Type Department Care Team (Latest Contact Info) Description 03/01/2024 2:00 PM EDT Office Visit Family Practice [address] [place] [phone] Igor Mcconnell DO [address] [place] [address] Gout, arthropathy*; Type 2 diabetes mellitus with hemoglobin A1c goal of less than 8.0% ([facility]); Hypertensive heart and kidney disease with chronic diastolic congestive heart failure and stage 4 chronic kidney disease ([facility]); Mixed dyslipidemia; CHAPINCITO on CPAP; Type 2 diabetes mellitus with both eyes affected by severe nonproliferative retinopathy and macular edema, with long-term current use of insulin ([facility]); Arreola's esophagus with high grade dysplasia; Acute [...] as of this encounter (statuses as of 03/02/2024) Medications Medication Sig Dispensed Refills Start Date [...] 32 UNITS WITH DINNER PLUS CORRECTION PER [facility] OR DIRECTED UP TO [...] E11.9 300 Strip 3 09/23/19 24 Active Acpvt-9-unpw Ethyl Esters 1 GM Oral Capsule (Lovaza) [...] as of this encounter (statuses as of 03/02/2024) Active Problems Patient Care Coordination No te [...] stairs") Medication Regimen: Beta Ritchie Therapy: Carvedilol ARINANA Inhibitor/ARB Therapy: Lisinopril Diuretic therapy: Torsemide SGLT2 Inhibitor: No Current SGLT2 (Describe in the Comments) Remote Patient Monitoring Vendor: [employer] Device(s): Connected Scale Self - Management Plan [...] Continues on lovaza 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 [employer] History of tobacco use 08/18/2017 CHAPINCITO on [...] as of this encounter (statuses as of 03/02/2024) Resolved Problems Problem Noted Date Diagnosed Date [...] as of this encounter (statuses as of 03/02/2024) Immunizations Name Administration Dates Next Due COVID-19 mRNA, LNP-s, No Pre serve, 2-Dose Series (Moderna) 12/10/2020,11/12/2020 Hepatitis B, 20+ yrs 01/04/2018,08/03/2017,07/03 Pneumococcal Conjugate Vacci ne, 20-valent ([id number]) 06/09/2022 Pneumococcal Polysaccharide PPV23 (Pneumovax) 03/06/2020 RSV [...] 32 UNITS WITH DINNER PLUS CORRECTION PER [facility] OR DIRECTED UP TO120 UNITS [...] 1 Tablet before bedtime. 300 Tablet 3 Wbxrb-2-nqto Ethyl Esters 1 GM Oral Capsule (Lovaza) [...] History: Diagnosis Date NEMESIO (acute kidney injury) ([facility]) 04/30/2022 NEMESIO (acute kidney injury) ([facility]) 10/20/2023 creat 4.5 [facility] Diabetes ([facility]) Heart failure, diastolic, due to HTN ([facility]) 01/25/2021 High blood pressure High cholesterol CHAPINCITO on CPAP 08/18/2017 ?18cwp Sleep apnea, obstructive Past Surgical History: Procedure Laterality Date ANKLE ARTHROSCOPY/SURGERY Right 07/2016 trimalleloar frac--ext fixation f/b ORIF - U Gm H COLONOSCOPY, DIAGNOSTIC (RECTUM) 01/01/2018 adenomatous polyp, repeat 5 yrs/COLONOSCOPY FLEXIBLE PROXIMAL DIAGNOSTIC performed by Dav Yap MD at ENDOSCOPY [facility] EGD, FLEXIBLE, DIAGNOSTIC 11/13/2021 esophageal polyp, gastritis / ESOPHAGOGASTRODUODENOSCOPY (EGD), FLEXIBLE, TRANSORAL, DIAGNOSTIC performed by Emelia Conley DO at ENDOSCOPY [facility] EGD, FLEXIBLE, DIAGNOSTIC N/A 03/20/2022 ESOPHAGOGASTRODUODENOSCOPY (EGD), FLEXIBLE, TRANSORAL, DIAGNOSTIC performed by Darian Goodman MD [facility] EGD, FLEXIBLE, DIAGNOSTIC N/A 06/16/2022 ESOPHAGOGASTRODUODENOSCOPY (EGD), FLEXIBLE, TRANSORAL, DIAGNOSTIC performed by Darian Goodman MD [facility] EGD, FLEXIBLE, ENDO MUCOSAL RESECTION 01/24/2022 GEJ polyp - LGD, HGD / [facility] EGD, W/ENDOSCOPIC US 11/13/2021 Barretts w/ HGD, fatty liver / ESOPHAGOGASTRODUODENOSCOPY (EGD), FLEXIBLE, TRANSORAL, ENDOSCOPIC ULTRASOUND performed by Emelia Conley DO at ENDOSCOPY [facility] EGD, W/ENDOSCOPIC US 01/24/2022 bile duct stone, enlarged LN - normal bx, eso mass - [facility]/WRIST SURGERY NEC 1989 LUMBAR / SACRAL EPIDURAL, SINGLE LEVEL 02/04/2018 INJECTION TRANSFORAMINAL EPIDURAL LUMBAR OR SACRAL performed by Uday Masterson DO at OR [facility] REMOVE CATARACT, INSERT LENS PROSTH Right 01/22/2017 right EXTRACAPSULAR CATARACT REMOVAL WITH INTRAOCULAR LENS performed by Cheko Mcnamara MD at OR [facility] REMOVE CATARACT, INSERT LENS PROSTH Left 02/03/2017 left EXTRACAPSULAR CATARACT REMOVAL WITH INTRAOCULAR LENS performed by Cheko Mcnamara MD at OR [facility] SACROILIAC JOINT INJECT W/GUIDANCE 11/20/2021 INJECTION SACROILIAC JOINT performed by Uday Masterson DO at OR [facility] THIGH OR KNEE SURGERY NEC Left [...] PM EDT Scheduled Telephone [facility], [facility] [address] [facility] [place] [address] Mery Calderon, RDN [address] [facility] [place] [address] 03/03/2024 2:20 PM EDT Office Visit Nephrology, [facility] [address] [facility] [address] [place] [address] Shivani Magallon MD [address] [facility] [place] [address] 03/10/2024 11:30 AM EDT Telemedicine Family Practice [address] [facility] [address] [place] [id number] College, Pharmacist [address] [place] [address] [address] [place] [address] 03/11/2024 8:30 AM EDT Office Visit Cardiology, [facility] [address] [place] [address] Elizabeth Pineda PASuzette [address] [place] [address] 03/16/2024 4:00 PM EDT Home Visit [facility] at [facility] [address] [place] [address] Love Stevens, RN [address] [place] [address] 06/13/2024 11:15 AM EST Hospital Encounter ENDO [facility], Endoscopy Room [facility] [address] [place] [phone] José Miguel Sifuentes MD [address] [place] [address] 06/13/2024 11:15 AM EST - 06/13/2024 11:45 AM EST Surgery ENDO [facility], Endoscopy Room [facility] [address] [place] [phone] José Miguel Sifuentes MD [address] [facility] [place] [address] COLONOSCOPY FLEXIBLE PROXIMAL DIAGNOSTIC 07/01/2024 2:20 PM EST Office Visit Family Practice [address] [place] [address], [address] [place] [address] Igor Mcconnell, DO [address] [place] [address] 08/08/2024 9:30 AM EST Nurse Only Ancillary [address] [place] [address] [place], Nurse [address] [place] [address] 10/27/2024 1:00 PM EDT Office Visit [facility] [address] [facility] [place] [phone] Lindsey Sheikh CRNP [address] [facility] [place] [address] Pending Results Name Type Priority Associated Diagnoses Date /Time LYME DISEASE ANTIBODY SCREEN WITH REFLEX TO CONFIRMATION Lab Routine Acute pain of left knee Acute right ankle pain 03/01/2024 12:12 PM EDT ANTINUCLEAR ANTIBODY (MATTHEW) EIA SCREEN WITH REFLEX AB QUANT Lab Routine Acute pain of left knee Acute right ankle pain 03/01/2024 12:12 PM EDT CYCLIC CITRULLINATED PEPTIDE IGG ANTIBODY Lab Routine Acute pain of left knee Acute right ankle pain 03/01/2024 12:12 PM EDT ANTINUCLEAR ANTIBODY (MATTHEW) SCREEN, HERMAN Lab Routine Acute pain of left knee Acute right ankle pain 03/01/2024 12:12 PM EDT LYME DISEASE ANTIBODY SCREEN Lab Routine Acute pain of left knee Acute right ankle pain 03/01/2024 12:12 PM EDT Scheduled Orders Name Type Priority Associated Diagnoses [...] right ankle pain Expected: 03/01/2024, Expires: 03/01/2025 Scheduled Procedures Name Priority Associated [...] 12/17/2023, Additional history exists Hgb 02/23/2025 02/24/2024, 08/03/2024, 12/01/2023, Additional history exists O2 ASSESSMENT COMPLETED [...] this encounter Medical Devices Implanted Type Area Cognos Lead Device Identifier Shelf Expiration Date Model / Serial / Lot Lens Intraoc 21.0 - [id number] - [id number] Implanted:Qty: 1 on 01/22/2017 by Cheko Mcnamara MD at OR [facility] Right: Eye [employer] 08/05/2021 [id number] / [id number] / [id number] Lens Intraoc 21.5 - [id number] - [id number] Implanted:Qty: 1 on 02/03/2017 by Cheko Mcnamara MD at OR [facility] Left: Eye [employer] 09/02/2021 [id number] / [id number] / [id number] documented as of this encounter Procedures Procedure Name Priority Date/Time Associated Diagnosis Comments RHEUMATOID FACTOR Routine 03/01/2024 12: 12 PM EDT Acute pain of left knee Acute right ankle pain documented in this encounter Results * (ABNORMAL) CRP (INFLAMMATORY MARKER) (03/01/2024 12:12 PM EDT) CRP (Inflammatory Marker) 53(H) <=5 mg/L 03/02/2024 5:53 AM EDT LABORATORY [facility] Blood Venous blood specimen / Unknown Venipuncture / Unknown 03/01/2024 12:12 PM EDT 03/01/2024 12:12 PM EDT Igor Mcconnell DO LAB BLOOD ORDERABLES Performing Organization Address City/[facility] Co de Phone Number LABORATORY [facility] [address] [place] [address] * (ABNORMAL) RHEUMATOID FACTOR (03/01/2024 12:12 PM EDT) Rheumatoid Factor 14(H) <14 IU/mL 03/02/2024 5:53 AM EDT LABORATORY [facility] Blood Venous blood specimen / Unknown Venipuncture / Unknown 03/01/2024 12:12 PM EDT 03/01/2024 12:12 PM EDT Igor Mcconnell DO LAB BLOOD ORDERABLES Performing Organization Address City/[facility]/ZIP Co de Phone Number LABORATORY [facility] [address] [place] [address] documented in this encounter Visit Diagnoses Diagnosis Gout, arthropathy- Primary Gouty arthropathy, unspecified Type 2 diabetes mellitus with hemoglobin A1c goal of less than 8.0% ([facility]) Hypertensive heart and kidney disease with chronic diastolic congestive heart failure and stage 4 chronic kidney disease ([facility]) Mixed dyslipidemia Mixed hyperlipidemia CHAPINCITO on CPAP [...] and were consensually agreed upon. Care Teams Transmission Tester Relationship Specialty Start Date End Date Igor Mcconnell DO [address] [place] [address] PCP - General Internal Medicine 02/12/24 documented as of this encounter
--- OUTSIDE RECORDS SUMMARY | 2024-08-26 02:47 | External Medical Summary | Summary of Care ---
Author Name Unknown Organization [facility] Address [address] [place] [address] Phone [phone] Care Team Providers Care First Aid Trainer Name Role Phone Igor Mcconnell DO Primary Care Provider [phone] Reason for Visit * Reason Comments Follow Up Encounter Details Date Type Department Care Team (Latest Contact Info) Description 03/01/2024 2:00 PM EDT Office Visit Family Practice [address] [place] [address] [place] [phone] Igor Mcconnell DO [address] [place] [address] Gout, arthropathy*; Type 2 diabetes mellitus with hemoglobin A1c goal of less than 8.0% ([facility]); Hypertensive heart and kidney disease with chronic diastolic congestive heart failure and stage 4 chronic kidney disease ([facility]); Mixed dyslipidemia; CHAPINCITO on CPAP; Type 2 diabetes mellitus with both eyes affected by severe nonproliferative retinopathy and macular edema, with long-term current use of insulin ([facility]); Arreola's esophagus with high grade dysplasia; Acute [...] 32 UNITS WITH DINNER PLUS CORRECTION PER [facility] OR DIRECTED UP [...] E11.9 300 Strip 3 09/23/19 24 Active Dfxmu-8-ergy Ethyl Esters 1 GM Oral Capsule (Lovaza) [facility] INJECT UNDER THE SKIN 100 UNITS TWICE [...] days. 5 Tablet 02/20/20 24 024 Discontinued Clotrimazole-Betam ethasone 1-0.05 % External Cream (Lotrisone) Apply 45 g topically to affected area in the morning and 45 g before bedtime. To scrotal area. 90 g 1 03/01/20 24 024 Discontinued(Re fill) documented as of this encounter (statuses as [...] in the Comments) Remote Patient Monitoring Vendor: [facility] [...] yrs 01/04/2018,08/03/2017,07/03 Pneumococcal Conjugate Vacci ne, 20-valent (Jhrappv10) 06/09/2022 Pneumococcal Polysaccharide PPV23 (Pneumovax) 03/06/2020 RSV [...] 32 UNITS WITH DINNER PLUS CORRECTION PER [facility] OR DIRECTED UP [...] 1 Tablet before bedtime. 300 Tablet 3 Rcrvr-1-plsg Ethyl Esters 1 GM Oral Capsule (Lovaza) [...] History: Diagnosis Date NEMESIO (acute kidney injury) ([facility]) 04/30/2022 NEMESIO (acute kidney injury) ([facility]) 10/20/[address] [facility] Diabetes ([facility]) Heart failure, diastolic, due to HTN ([facility]) 01/25/2021 High blood pressure High cholesterol CHAPINCITO on CPAP 08/18/2017 ?[id number] Sleep apnea, obstructive Past Surgical History: Procedure Laterality Date ANKLE ARTHROSCOPY/SURGERY Right 07/2016 trimalleloar frac--ext fixation f/b ORIF - U Gm H COLONOSCOPY, DIAGNOSTIC (RECTUM) 01/01/2018 adenomatous polyp, repeat 5 yrs/COLONOSCOPY FLEXIBLE PROXIMAL DIAGNOSTIC performed by Dav Yap MD at ENDOSCOPY [facility] EGD, FLEXIBLE, DIAGNOSTIC 11/13/2021 esophageal polyp, gastritis / ESOPHAGOGASTRODUODENOSCOPY (EGD), FLEXIBLE, TRANSORAL, DIAGNOSTIC performed by Emelia Conley DO at ENDOSCOPY [facility] EGD, FLEXIBLE, DIAGNOSTIC N/A 03/20/2022 ESOPHAGOGASTRODUODENOSCOPY (EGD), FLEXIBLE, TRANSORAL, DIAGNOSTIC performed by Darian Goodman MD atENDOSCOPY [facility] EGD, FLEXIBLE, DIAGNOSTIC N/A 06/16/2022 ESOPHAGOGASTRODUODENOSCOPY (EGD), FLEXIBLE, TRANSORAL, DIAGNOSTIC performed by Darian Goodman MD atENDOSCOPY [facility] EGD, FLEXIBLE, ENDO MUCOSAL RESECTION 01/24/2022 GEJ polyp - LGD, HGD / [facility] EGD, W/ENDOSCOPIC US 11/13/2021 Barretts w/ HGD, fatty liver / ESOPHAGOGASTRODUODENOSCOPY (EGD), FLEXIBLE, TRANSORAL, ENDOSCOPIC ULTRASOUND performed by Emelia Conley DO at ENDOSCOPY [facility] EGD, W/ENDOSCOPIC US 01/24/2022 bile duct stone, enlarged LN - normal bx, eso mass - [facility]/WRIST SURGERY NEC 1989 LUMBAR / SACRAL EPIDURAL, SINGLE LEVEL 02/04/2018 INJECTION TRANSFORAMINAL EPIDURAL LUMBAR OR SACRAL performed by Uday Masterson DO at OR [facility] REMOVE CATARACT, INSERT LENS PROSTH Right 01/22/2017 right EXTRACAPSULAR CATARACT REMOVAL WITH INTRAOCULAR LENS performed by Cheko Mcnamara MD at [facility] REMOVE CATARACT, INSERT LENS PROSTH Left 02/03/2017 left EXTRACAPSULAR CATARACT REMOVAL WITH INTRAOCULAR LENS performed by Cheko Mcnamara MD at OR [facility] SACROILIAC JOINT INJECT W/GUIDANCE 11/20/2021 INJECTION SACROILIAC JOINT performed by Uday Masterson DO at OR [facility] THIGH OR KNEE SURGERY NEC Left 07/2016 sg U [facility]--quad repair US ABDOMEN LIMITED 08/27/2021 Possible [...] painful all over. documented in this encounter Miscellaneous Notes * Pt Handout (on AVS) - NIGEL PATIENT HANDOUT - 03/03/2024 3:10 PM EDT Images from the original note were not included. [id number] What is Gout? Gout is a form of arthritis caused by too much uric acid buildup in your body. Gout often causes sudden pain and swelling in 1 joint, often the big toe or other joints in the feet. If not treated, itcan lead to painful foot and joint deformities. It may lead to kidney problems. But by treating gout early, you can ease pain and help prevent future problems. Gout can often be treated with medicineand a change in diet. In severe cases, surgery may be needed. What causes gout? Gout is caused by too much uric acid in the body. This is a waste product made by the body. Uric acid is filtered out by the kidneys. If the uric acid level in your blood rises too high, it may form crystals. If these crystals are not treated and are kept in the body for a long time, they will cause severe health issues. These collect in the joints. This brings on a gout attack. A gout attack is inflammation in the joints that can cause sudden pain and swelling. If you have many gout attacks, crystals may form large deposits called tophi. Tophi can damage joints and cause deformity. Who's at risk for gout? People assigned male at are more likely to have gout. People assigned female at may have gout, but more often after menopause. Some health problems make gout more likely. These include obesity and high cholesterol. And some medicines can trigger a gout attack. These include water pills (diuretics). People who drink a lot of alcohol are at high risk for gout. Some foods can trigger a gout attack. Things that may trigger a gout attack Alcohol, especially beer, but also red wine and spirits Some meats such as red meat, processed meat, turkey Organ meats such as kidney, liver, sweetbread Shellfish such as lobster, crab, shrimp, scallops, mussels Some fish such as anchovies, sardines, crawford, mackerel Drinks high in sugar or fructose, like concentrated juices or sodas Treatment Make lifestyle changes. These include weight loss, exercise, reducing or eliminating alcohol intake, especially beer, and quitting tobacco use. Adding low-fat dairy foods may lower uric acid levels. Limit certain foods and drinks. Reduce your intake of the foods and drinks listed above that maytrigger a gout attack. Don't eat or drink things with high- fructose corn syrup. This is found in many foods. It's in some sodas and energy drinks. Ask about your medicines. Some medicines may contribute to gout. This includes diuretics. Talk to your healthcare provider about other options. Try medicines to reduce the amount of uric acid in the blood. These include allopurinol, probenecid, febuxostat, and lesinurad. Take medicines to treat sudden gout attacks. These include NSAIDs (nonsteroidal anti-inflammatory drugs), steroids, and colchicine. Last Reviewed Date: 09/04/202319998158-2256 [employer]. All rights reserved. This information is not intended as a substitute for professional medical care. Always follow your healthcare professional's instructions. * Pt Handout (on AVS) - NIGEL, PATIENT HANDOUT - 03/03/2024 3:10 PM EDT [id number] Eating to Prevent Gout Gout is a painful form of arthritis caused by an excess of uric acid. This is a waste product made by the body. It builds up in the body and forms crystals that collect in the joints, causing a gout attack. Alcohol and certain foods can trigger a gout attack. Below are some guidelines for changing your diet to help you manage gout. Your healthcare provider or a dietitian can work with you to determine the best eating plan for you. You can learn which foods affect your gout more than others. Reactions to different foods can varyfrom person to person. Know that diet is only one part of managing gout. Take your medicines as prescribed and follow the other guidelines your healthcare provider has given you. Foods to limit Eating too many foods containing purines may increase the levels of uric acid in your body and increase your risk for a gout attack. It may be best to limit these high-purine foods: Alcohol (beer, hard liquor, and red wine). You may be told to give up alcohol completely. Certain fish (anchovies, sardines, fish roes, crawford, tuna, mussels, codfish, scallops, trout, and kimberly) Certain meats (red meat, processed meat, nation, turkey, wild game, and goose) Sauces and gravies made with meat Organ meats (such as liver, kidneys, sweetbreads, and tripe) Yeast and yeast extract supplements Foods to try Some foods may be helpful for people with gout. You may want to try adding some of the following foods to your diet: Galvin/Galvin Extract. Cherries and galvin extract contain chemicals that may lower uric acid. Zenia fatty acids. These acids are found in fatty fish (such as salmon), certain oils (such as flax, olive, or nut oils), and nuts. They may help prevent inflammation due to gout. Low-fat dairy. Low-fat milk or dairy foods may reduce uric acid levels. Last Reviewed Date: 06/05/202219994136-1944 [employer]. All rights reserved. This information is not intended as a substitute for professional medical care. Always follow your healthcare professional's instructions. * Pt Handout (on AVS) - NIGEL PATIENT HANDOUT - 03/03/2024 3:10 PM EDT Images from the original note were not included. [id number] Gout Gout is an inflammation of a joint caused by an inflammatory response to gout crystals in the jointfluid. This occurs when there is excess uric acid. Uric acid is a normal waste product in the body.It builds up in the body when the kidneys can't filter enough of it from the blood. This may occur with age. It's also associated with kidney disease. Gout occurs more often in people with obesity, diabetes, high blood pressure, or high levels of fats in the blood. It may run in families. Gout tends to come and go. A flare up of gout is called an attack. Drinking alcohol or eating certain foods (such as shellfish or foods with additives such as high-fructose corn syrup) may increase uric acid levels in the blood and cause a gout attack. During a gout attack, the affected joint may become hot, red, swollen, and painful. If you have hadone attack of gout, you are likely to have another. An attack of gout can be treated with medicine.If these attacks become frequent, a daily medicine may be prescribed to help the kidneys remove uric acid from the body. Home care During a gout attack: Contact your healthcare provider for advice and therapy options at the early stages of a gout flare. Treating the flare right away can prevent it from getting worse. Your healthcare provider can prescribe medicine to improve pain and shorten your gout flare. Rest painful joints. If gout affects the joints of your foot or leg, you may want to use crutches for the first few days to keep from bearing weight on the affected joint. When sitting or lying down, raise the painful joint to a level higher than your heart. Apply an ice pack (ice cubes in a plastic bag wrapped in a thin towel) over the injured area for20 minutes every 1 to 2 hours the first day for pain relief. Continue this 3 to 4 times a day for swelling and pain. Avoid alcohol and foods listed below (see Preventing attacks) during a gout attack. Drink extra fluid to help flush the uric acid through your kidneys. If you were prescribed a medicine to treat gout, take it as your healthcare provider has instructed. Don't skip doses. Take anti-inflammatory medicine as directed by your healthcare provider. If you have chronic liver or kidney disease or ever had a stomach ulcer or digestive tract bleeding, talk with your doctor before using these medicines. If pain medicines have been prescribed, take them exactly as directed. Preventing attacks Follow up with your healthcare provider to assess if you would benefit from daily medicine to prevent gout flares. Limit or stop alcohol use. Excess alcohol intake can cause a gout attack. Limit these foods and drinks: o Organ meats, such as kidneys and liver o Certain seafoods (anchovies, sardines, shrimp, scallops, crawford, mackerel) o Wild game, meat extracts and meat gravies o Foods and drinks sweetened with high-fructose corn syrup, such as sodas Eat a healthy diet including low-fat and nonfat dairy, whole grains, and vegetables. If you are overweight, talk to your healthcare provider about a weight reduction plan. Avoid fasting or extreme low calorie diets (less than 900 calories per day). This will increase uric acid levels in the body. If you have diabetes or high blood pressure, work with your provider to manage these conditions. Protect the joint from injury. Wear good-fitting socks and shoes. Injury can trigger a gout attack. Follow-up care Follow up with your healthcare provider, or as advised. When to get medical advice Call your healthcare provider if you have any of the following: Fever over 100.4F (38.C) with worsening joint pain Increasing redness around the joint Pain developing in another joint Repeated vomiting, abdominal pain, or small amounts of blood in the vomit or stool (black or redcolor) Call 911 Call 911, or get immediate medical care if any of these occur: Large amounts of blood in the vomit or stool (black or red color) Fainting Last Reviewed Date: 09/03/202119994896-7651 [employer]. All rights reserved. This information is not intended as a substitute for professional medical care. Always follow your healthcare professional's instructions. * Pt Handout (on AVS) - NIGEL, PATIENT HANDOUT - 03/03/2024 3:10 PM EDT [id number] Gout Diet Gout is a painful condition caused by an excess of uric acid, a waste product made by the body. Uric acid forms crystals that collect in the joints. The immune response to these crystals brings on symptoms of joint pain and swelling. This is called a gout attack. Often, medicines and diet changes are combined to manage gout. Below are some guidelines for changing your diet to help you manage goutand prevent attacks. Your healthcare provider will help you determine the best eating plan for you. Eating to manage gout Weight loss for those who are overweight may help reduce gout attacks. Eat less of these foods Eating too many foods containing purines may raise the levels of uric acid in your body. This raises your risk for a gout attack. Try to limit these foods and drinks: Alcohol, such as beer and red wine. You may be told to avoid alcohol completely. Soft drinks that contain sugar or high fructose corn syrup Certain fish, including anchovies, sardines, fish eggs, and crawford Shellfish Certain meats, such as red meat, hot dogs, luncheon meats, and turkey Organ meats, such as liver, kidneys, and sweetbreads Legumes, such as dried beans and peas Other high fat foods such as gravy, whole milk, and high fat cheeses Vegetables such as asparagus, cauliflower, spinach, and mushrooms used to be thought to contribute to an increased risk for a gout attack, but recent studies show that high purine vegetables don'tincrease the risk for a gout attack. Eat more of these foods Other foods may be helpful for people with gout. Add some of these foods to your diet: Cherries contain chemicals that may lower uric acid. Zenia fatty acids. These are found in some fatty fish such as salmon, certain oils (flax, olive,or nut), and nuts themselves. Zenia fatty acids may help prevent inflammation due to gout. Dairy products that are low-fat or fat-free, such as cheese and yogurt Complex carbohydrate foods, including whole grains, brown rice, oats, and beans Coffee, in moderation Water, approximately 64 ounces per day Follow-up care Follow up with your healthcare provider as advised. When to get medical advice Call your healthcare provider right away if any of these occur: Return of gout symptoms, usually at night Severe pain, swelling, and heat in a joint, especially the base of the big toe Affected joint is hard to move Skin of the affected joint is purple or red Fever of 100.4F (38C) or higher, or as advised by your provider Pain that doesn't get better even with prescribed medicine Last Reviewed Date: 08/06/202119993842-5636 [employer]. All rights reserved. This information is not intended as a substitute for professional medical care. Always follow your healthcare professional's instructions. documented in this encounter Plan of Treatment Upcoming Encounters Date Type Department Care Team (Late st Contact Info) Description 03/10/2024 11:30 AM EDT Telemedicine Family Practice [address] [facility] [address] [place] [address] College, Pharmacist [address] [facility] 293 [place] [address] 03/11/2024 8:30 AM EDT Office Visit Cardiology, [facility] [address] [place] [address] Elizabeth Pineda PA-C [address] [place] [address] 03/16/2024 4:00 PM EDT [facility] Visit [facility] [place] [address] Love Stevens, RN [address] [place] [address] 04/15/2024 8:30 AM EDT Scheduled Telephone [facility], [facility] [address] [place] [address] Mery Calderon RDN [address] [place] [address] 06/13/2024 11:15 AM EST Hospital Encounter ENDO OSS, Endoscopy Room [facility] [address] [facility] [place] [phone] José Miguel Sifuentes MD [address] [facility] [place] [address] 06/13/2024 11:15 AM EST - 06/13/2024 11:45 AM EST Surgery ENDO OSS, Endoscopy Room [facility] [address] [facility] [place] [phone] José Miguel [facility]uentes [facility] [address] [facility] [address] COLONOSCOPY FLEXIBLE PROXIMAL DIAGNOSTIC 07/01/2024 2:20 PM EST Office Visit Family Practice [address] [place] [address], [place] [address] [place] [address] Igor Mcconnell DO [address] [place] [address] 08/08/2024 9:30 AM EST Nurse Only Ancillary [address] [place] [address] [place], Nurse [address] [place] [address] 10/27/2024 1:00 PM EDT Office Visit [facility] Disorders [facility] [address] [place] [phone] Lindsey Sheikh CRNP [address] [place] [address] Scheduled Procedures Name Priority Associated Diagnoses Date/Ti [...] 06/11/2023, Additional history exists GFR 08/26/2024 02/24/2024, 08/03/2024, 02/04/2024, Additional history exists Diabetic Foot Exam [...] this encounter Medical Devices Implanted Type Area Sheltered Workshop Worker Device Identifier Shelf Expiration Date Model / Serial / Lot Lens Intraoc 21.0 - [id number] - [id number] Implanted:Qty: 1 on 01/22/2017 by Cheko Mcnamara MD at OR [facility] Right: Eye [employer] 08/05/2021 [id number] / [id number] / [id number] Lens Intraoc 21.5 - [id number] - [id number] Implanted:Qty: 1 on 02/03/2017 by Cheko Mcnamara MD at OR [facility] Left: Eye [employer] 09/02/2021 [id number] / [id number] / [id number] documented as of this encounter Procedures Procedure Name Priority Date/Time Associated Diagnosis Comments LYME DISEASE ANTIBODY SCREEN Routine 03/01/2024 12:12 PM EDT Acute pain of left knee Acute right ankle pain ANTINUCLEAR ANTIBODY (MATTHEW) SCREEN, HERMAN Routine 03/01/2024 12:12 PM EDT Acute pain of left knee Acute right ankle pain CYCLIC CITRULLINATED PEPTIDE IGG ANTIBODY Routine 03/01/2024 12:12 PM EDT Acute pain of left knee Acute right ankle pain ANTINUCLEAR ANTIBODY (MATTHEW) EIA SCREEN WITH REFLEX AB QUANT Routine 03/01/2024 12:12 PM EDT Acute pain of left knee Acute right ankle pain LYME DISEASE ANTIBODY SCREEN WITH REFLEX TO CONFIRMATION Routine 03/01/2024 12:12 PM EDT Acute pain of left knee Acute right ankle pain RHEUMATOID FACTOR Routine 03/01/2024 12: 12 PM EDT Acute pain of left knee Acute right ankle pain documented in this encounter Results * LYME DISEASE ANTIBODY SCREEN (03/01/2024 12:12 PM EDT) Pathologist [facility] Lyme Disease Antibody Screen Negative Negative 03/02/2024 9:07 AM EDT LABORATORY [facility] Blood Venous blood specimen / Unknown Venipuncture / Unknown 03/01/2024 12:12 PM EDT 03/01/2024 12:12 PM EDT Igor Mcconnell DO LAB BLOOD ORDERABLES LABORATORY [facility] [address] [place] [address] * ANTINUCLEAR ANTIBODY (MATTHEW) SCREEN, HERAMN (03/01/2024 12:12 PM EDT) MATTHEW Screen Negative Negative 03/02/2024 2:07 PM EDT LABORATORY [facility] dsDNA Antibody Interpretation Negative Negative 03/02/2024 2:07 PM EDT LABORATORY [facility] dsDNA Antibody Value 0.8 <20 IU/mL 03/02/2024 2:07 PM EDT LABORATORY [facility] JANEY Antibodies Screen Interpretation Negative Negative 03/02/2024 2:07 PM EDT LABORATORY [facility] JANEY Antibodies Screen Value 0.3 <0.7 Ratio 03/02/2024 2:07 PM EDT LABORATORY [facility] Comment: Screening is based on detection of the following antibodies: dsDNA, U1-HATCH BOSS (RNP70, A, C), SS-A/Ro, SS-B / La, Julia-1, Scl-70, Centromere B proteins and Sm proteins. In conjunction with clinical findings, this can aid in the diagnosis of systemic lupus erythematosous (SLE), mixed connective tissue disease (MCTD), Sjogren's syndrome, scleroderma and polymyositis/dermatomyositis. However, a negative result does not rule out systemic rheumatic or other autoimmune disease. If clinically suspected, further evaluation and testing may be necessary. Please consult with Rheumatology Department. Methodology: Fluorescent Enzyme Immunoassay. Blood Venous blood specimen / Unknown Venipuncture / Unknown 03/01/2024 12:12 PM EDT 03/01/2024 12:12 PM EDT Igor Mcconnell DO LAB BLOOD ORDERABLES Performing Organization Address City/[facility] Co de Phone Number LABORATORY [address] [address] * (ABNORMAL) CRP (INFLAMMATORY MARKER) (03/01/2024 12:12 PM EDT) [facility] CRP (Inflammatory Marker) 53(H) <=5 mg/L 03/02/2024 5:53 AM EDT LABORATORY [facility] Blood Venous blood specimen / Unknown Venipuncture / Unknown 03/01/2024 12:12 PM EDT 03/01/2024 12:12 PM EDT Igor Mcconnell DO LAB BLOOD ORDERABLES LABORATORY [facility] [address] [place] [address] * CYCLIC CITRULLINATED PEPTIDE IGG ANTIBODY (03/01/2024 12:12 PM EDT) [facility] Cyclic Citrullinated Peptide IgG Antibody Interpretation Negative Negative 03/02/2024 11:52 AM EDT LABORATORY [facility] Cyclic Citrullinated Peptide IgG Antibody Value 1.4 <7 U/mL 03/02/2024 11:52 AM EDT LABORATORY [facility] Blood Venous blood specimen / Unknown Venipuncture / Unknown 03/01/2024 12:12 PM EDT 03/01/2024 12:12 PM EDT Igor Mcconnell DO LAB BLOOD ORDERABLES Performing Organization Address [facility] de Phone Number LABORATORY [facility] [address] [place] [address] * (ABNORMAL) RHEUMATOID FACTOR (03/01/2024 12:12 PM EDT) [facility] Rheumatoid Factor 14(H) <14 IU/mL 03/02/2024 5:53 AM EDT LABORATORY [facility] Blood Venous blood specimen / Unknown Venipuncture / Unknown 03/01/2024 12:12 PM EDT 03/01/2024 12:12 PM EDT Igor Mcconnell DO LAB BLOOD ORDERABLES Performing Organization Address [facility] de Phone Number LABORATORY [address] [address] documented in this encounter Visit Diagnoses Diagnosis [...] and were consensually agreed upon. Care Teams First Aid Trainer Relationship Specialty Start Date End Date Igor Mcconnell DO [address] [place] [address] PCP - General Internal Medicine 02/12/24 documented as of this encounter
--- OUTSIDE RECORDS SUMMARY | 2024-08-26 02:47 | External Medical Summary | Summary of Care ---
Author Name Unknown Organization [facility] Address [address] [place] [address] Phone [phone] Care Team Providers Care Registered Medical Transcriptionist Name Role Phone Igor Mcconnell DO Primary Care Provider [phone] Encounter Details Date Type Department Care Team (Late st Contact Info) Description 03/02/2024 Telephone Family Practice [facility], [place] [address] [place] [address] Igor Mcconnell DO [address] [place] [address] Allergies Active Allergy Reactions Criticality [...] than 7.0% ([facility]) Use as directed every 14 days [...] 32 UNITS WITH DINNER PLUS CORRECTION PER [facility] OR DIRECTED UP TO [...] DX: E11.9 300 Strip 3 4 Active Xvzgz-4-amek Ethyl Esters 1 GM Oral Capsule (Lovaza) [...] than 7.0% ([facility]) INJECT UNDER THE SKIN 100 UNITS [...] on 02/12/2024 metOLazone 2.5 MG Oral Tablet (Zaroxolyn)Indicati ons:Hypertensive [...] disease, with long-term current use of insulin ([facility]) Inject 2 mg under the skin once a week. 2 mL 11 4 Active Potassium Chloride Gaviota ER 20 MEQ Oral Tablet Extended Release Take 1 Tablet by mouth in the morning and 1 Tablet before bedtime. 180 Tablet 3 4 Active Allopurinol 100 MG Oral Tablet (Zyloprim)Indicatio ns:Gout Take 0.5 Tablets by mouth in the morning. 30 Tablet 3 4 Active predniSONE 5 MG Oral Tablet (Deltasone)Indicati ons:Gout Take 1 Tablet by mouth in the morning for 14 days. As directed. 14 Tablet 4 03/11/20 24 Active Clotrimazole-Betame thasone 1-0.05 % External Cream (Lotrisone) Apply small amount of cream to scrotal area two times a day 90 g 1 4 Active Clotrimazole-Betame thasone 1-0.05 % External Cream (Lotrisone) Apply 45 g topically to affected area in the morning and 45 g before bedtime. To scrotal area. 90 g 1 4 03/02/20 24 Discontinu ed(Refill) documented as of this [...] with long-term current use of insulin 03/05/2022 Rareola's esophagus with high grade dysplasia Last Assessment [...] yrs 01/04/2018,08/03/2017,07/03 Pneumococcal Conjugate Vacci ne, 20-valent ([id number]) 06/09/2022 Pneumococcal Polysaccharide PPV23 (Pneumovax) 03/06/2020 RSV [...] encounter Miscellaneous Notes * Telephone Encounter - Moise Terry PHARM Tech - 03/02/2024 12:13 PM EDT Pharmacy is calling because pt's prescription for Clotrimazole-Betamethasone was sent with unclear directions stating "Apply 45 g topically to affected area in the morning and 45 g before bedtime. Toscrotal area.". Please clarify the directions for this medication and send a new prescription to [facility]. 45 grams is an entire tube, does pt need to apply entire tube twice a day for one day, or was the administered amount supposed to be changed> Thank you, Moise Terry [facility] Armored Cable Machine Operator III [facility] 03/02/2024, 12:13 PM documented in this encounter Plan of Treatment Upcoming Encounters Date Type Department Care Team (Late st Contact Info) Description 03/02/2024 3:30 PM EDT Scheduled Telephone [facility], [facility] [address] [facility] [place] [address] Mery Calderon, RDN [address] [facility] [place] [address] Type 2 diabetes mellitus with hemoglobin A1c goal of less than 8.0% ([facility])* 03/03/2024 2:20 PM EDT Office Visit Nephrology, Susan Palacios [address] [facility] [place] [address] Shivani Magallon MD [address] [facility] [place] [address] 03/10/2024 11:30 AM EDT Telemedicine Family Practice 65 [facility] 293 [place] [address] College, Pharmacist [address] [place] [address] 03/11/2024 8:30 AM EDT Office Visit Cardiology, [facility] 132 [place] [address] Elizabeth Pineda, DEVYN [address] [place] [address] 03/16/2024 4:00 PM EDT Home Visit [facility], [facility] 132 [place] [address] Love Stevens, RN [address] [place] [address] 06/13/2024 11:15 AM EST Hospital Encounter [facility]O [facility], Endoscopy Room [facility] [address] [place] [phone] José Miguel Sifuenets MD [address] [place] [address] 06/13/2024 11:15 AM EST - 06/13/2024 11:45 AM EST Surgery ENDO [facility], Endoscopy Room [facility] [address] [place] [phone] José Miguel Sifuentes MD 132 [facility] [place] [address] COLONOSCOPY FLEXIBLE PROXIMAL DIAGNOSTIC 07/01/2024 2:20 PM EST Office Visit Family Practice [address] [place] [address] 293 [place] [address] Igor Mcconnell DO 293 [place] [address] 08/08/2024 9:30 AM EST Nurse Only Ancillary [address] [place] [address] [place], Nurse [address] [place] [address] 10/27/2024 1:00 PM EDT Office Visit [facility] Disorders [facility]tr [facility] 132 [facility] [place] [phone] Lindsey Sheikh CRNP 132 [facility] [place] [address] Scheduled Procedures Name Priority Associated Diagnoses Date/Ti [...] COVID-19 Vaccine (2022- season) 2024 12/10/2020, 11/12/2020 Postponed from 03/06/2023 [...] encounter Medical Devices Implanted Type Area Manager Application Device Identifier Shelf Expiration Date Model / Serial / Lot Lens Intraoc 21.0 - [id number] - [id number] Implanted:Qty: 1 on 01/22/2017 by Cheko Mcnamara MD at OR [facility] Right: Eye BAUSCH & LOMB 08/05/2021 [id number] / [id number] / [id number] Lens Intraoc 21.5 - [id number] - [id number] Implanted:Qty: 1 on 02/03/2017 by Cheko Mcnamara MD at OR [facility] Left: Eye BAUSCH & LOMB 09/02/2021 [id number] / [id number] / [id number] documented as of this encounter Advance Directives [...] consensually agreed upon. Care Teams Registered Medical Transcriptionist Relationship Specialty Start Date End Date Igor Mcconnell DO [address] [facility] [place] [address] PCP - General Internal Medicine 02/12/24 documented as of this encounter
--- OUTSIDE RECORDS SUMMARY | 2024-08-26 02:47 | External Medical Summary | Summary of Care ---
Author Name Unknown Organization [facility] Address [address] [facility] [place] [address] Phone [phone] Care Team Providers Care Fill Plant Operator Name Role Phone Igor Mcconnell DO Primary Care Provider [phone] Reason for Visit * Reason Onset Date Comments Medical Nutrition Therapy 03/02/2024 Encounter Details Date Type Department Care Team (Latest Contact Info) Description 03/02/2024 3:30 PM EDT Scheduled Telephone [facility], [facility] [address] [facility] [place] [address] Mery Calderon, RDN [address] [facility] [place] [address] Type 2 diabetes mellitus with hemoglobin A1c goal of less than 8.0% ([facility])* Allergies Active Allergy Reactions Criticality Noted Date [...] DX: E11.9 300 Strip 3 09/23/2023 Active Nziwg-2-jwdc Ethyl Esters 1 GM Oral Capsule (Lovaza) [...] SYSTEM - [facility]) INJECT UNDER THE SKIN 100 UNITS TWICE [...] 14 days. As directed. 14 Tablet 02/26/2024 4 Active Clotrimazole-Betamet hasone 1-0.05 % External Cream [...] in the Comments) Remote Patient Monitoring Vendor: GRID Device(s): Connected Scale Self - Management Plan [...] yrs 01/04/2018,08/03/2017,07/03 Pneumococcal Conjugate Vacci ne, 20-valent ([id number]) 06/09/2022 Pneumococcal Polysaccharide PPV23 (Pneumovax) 03/06/2020 RSV [...] Telephone Encounter - Mery Calderon RDN - 03/02/2024 9:39 AM EDT NUTRITION PROGRESS NOTE - [facility] Patient Phone Numbers: Call placed to pt as follow-up from initial nutrition assessment from 01/18/24. Patient denies any issues related to diet [...] Use: No Patient continues to live with his has been assisting with transportation/care/food shopping/prepping/cooking of meals BS is tested 3-4x daily (Cindy) BS has been ranging 200-250's (reviewed foods to avoid and those nutritious foods to consume/info previously sent) Stressed the need for proper diabetic health/nutrition to better control BS (nutritious examples provided) [facility] closely follows (next appt 03/10/24) Since last call, appetite and PO intake remain "very very good" with no difficulties reported C/O SOB continues since last call (mostly at baseline, but "has rough breathing days sometimes") This dietitian encouraged Patient to be physically active with bedside/chair exercises (provided encouragement/suggested 2-3x/week/info sent previously) This dietitian continues to instruct and reinforce the importance of restricting high sodium/high sugar foods, but admits to not always restricting (BLE edema noted/provided nutritious examples/info sent) No food insecurity reported this call Patient reports recent uric acid levels are high (see below/slowly improving) Taking Allopurinol per MD order for treatment Reviewed foods to avoid/consume Nutritious examples provided Sent info Latest Reference Range & Units 02/12/24 14:38 02/24/24 14:26 03/01/24 12:12 Uric Acid 3.4 - 7.0 mg/dL 15.7 (H) 14.5 (H) 12.9 (H) (H): Data is abnormally high Patient denies any issues related to changes in wt. Wt Readings from Last 3 Encounters: 03/01/24 130.6 kg (288 lb) 02/12/24 134.8 kg (297 lb 3.2 oz) 01/27/24 131.5 kg (290 lb) Previous Nutrition Goals: 1) Consume 3 meals/day plus HS snack of nutritious, low sodium/low sugar foods with consistent carbohydrates (reinforced more nutritious foods to consume and those foods to avoid/sent info previously)--in progress 2) Consume more fruits/vegetables at HS snack vs cookies (reiterated My Plate Method/seasonal fruits and vegs offered/info sent previously)--in progress 3) Encouraged to do bedside/chair exercises/2-3x per week/walks (info previously sent)--in progress-provided encouragement New Nutrition Goal this Call: 1) Adhere to Low Purine Diet due to Gout diagnosis (elevated uric acid levels/see above/reviewed foods to avoid/consume/sent info) Reinforced nutrition goals. Encouraged continued progress towards goals Encouraged pt to contact [facility] at [phone] for any non-emergent changes/concerns. Mery Calderon MS, RDN, LDN Clinical Dietitian [facility] 03/02/2024 documented in this encounter Plan of Treatment Upcoming Encounters Date Type Department Care Team (Late st Contact Info) Description 03/03/2024 2:20 PM EDT Office Visit Nephrology, [facility] [address] [place] [address] Shivani Magallon MD [address] [facility] [place] [address] 03/10/2024 11:30 AM EDT Telemedicine Family Practice [address] [place] [address] 293 [place] [phone] College, Pharmacist [address] [place] [address] 03/11/2024 8:30 AM EDT Office Visit Cardiology, [facility] [address] [place] [address] Elizabeth Pineda PA-C 132 [place] [address] 03/16/2024 4:00 PM EDT [facility], [facility] 132 [place] [address] Love Stevens RN 132 [place] [address] 04/15/2024 8:30 AM EDT Scheduled Telephone [facility], [facility] [address] [facility] [place] [address] Mery Calderon, RDN [address] [facility] [place] [address] 06/13/2024 11:15 AM EST Hospital Encounter ENDO [facility], Endoscopy Room [facility] [address] [place] [address] José Miguel Sifuentes MD [address] [place] [address] 06/13/2024 11:15 AM EST - 06/13/2024 11:45 AM EST Surgery ENDO [facility], Endoscopy Room [facility] [address] [place] [phone] José Miguel Sifuentes MD [address] [place] [address] COLONOSCOPY FLEXIBLE PROXIMAL DIAGNOSTIC 07/01/2024 2:20 PM EST Office Visit Family Practice [address] [place] [address] 293 [place] [address] Igor Mcconnell, 293 [place] [address] 08/08/2024 9:30 AM EST Nurse Only Ancillary [address] [place] [address] [place], Nurse [address] [place] [address] 10/27/2024 1:00 PM EDT Office Visit [facility] Disorders Ctr [facility] [address] [place] [phone] Lindsey Sheikh CRNP [address] [place] [address] Scheduled Procedures Name Priority Associated Diagnoses Date/Ti [...] 12/17/2023, Additional history exists Hgb 02/23/2025 02/24/2024, 0803/2024, 12/01/2023, Additional history exists O2 ASSESSMENT COMPLETED [...] this encounter Medical Devices Implanted Type Area Veterinary Attendant Device Identifier Shelf Expiration Date Model / Serial / Lot Lens Intraoc 21.0 - [id number] - [id number] Implanted:Qty: 1 on 01/22/2017 by Cheko Mcnamara MD at OR [facility] Right: Eye BAUSCH & LOMB 08/05/2021 [id number] / [id number] / [id number] Lens Intraoc 21.5 - [id number] - [id number] Implanted:Qty: 1 on 02/03/2017 by Cheko Mcnamara MD at OR [facility] Left: Eye BAUSCH & LOMB 09/02/2021 [id number] / [id number] / [id number] documented as of this encounter Visit Diagnoses [...] and were consensually agreed upon. Care Teams Fill Plant Operator Relationship Specialty Start Date End Date Igor Mcconnell DO [address] [place] [address] PCP - General Internal Medicine 02/12/24 documented as of this encounter
--- OUTSIDE RECORDS SUMMARY | 2024-08-26 02:47 | External Medical Summary | Summary of Care ---
Author Name Unknown Organization [facility] Address [address] [facility] [place] [address] Phone [phone] Care Team Providers Care Bailer Operators Supervisor Name Role Phone Igor Mcconnell DO Primary Care Provider [phone] Reason for Visit * Reason Comments Outpatient Testing Encounter Details Date Type Department Care Team (Late st Contact Info) Description 03/01/2024 12:30 PM EDT Laboratory Laboratory, [facility] 132 [facility] [place] [phone] [facility] [address] Gout Allergies Active Allergy Reactions Criticality Noted Date [...] before bedtime. 300 Tablet 3 08/12/2023 Active Clotrimazole-Betamet hasone 1-0.05 % External Cream (Lotrisone) APPLY TOPICALLY TO AFFECTED AREA(S) TWO TIMES A DAY. 90 g 1 08/27/2023 5 Active OneTouch Verio In Vitro Strip (Glucose Blood)Indications:Un controlled type 2 diabetes mellitus with hyperglycemia (HCC) USE TO TEST BLOOD GLUCOSE 3 TIMES A DAY. DX: E11.9 300 Strip 3 09/23/2023 Active Hmoed-1-ntjx Ethyl Esters 1 GM Oral Capsule (Lovaza) [...] days. As directed. 14 Tablet 02/26/2024 Active documented as of this encounter (statuses [...] in the Comments) Remote Patient Monitoring Vendor: [employer] Device(s): Connected Scale Self - Management Plan [...] yrs 01/04/2018,08/03/2017,07/03 Pneumococcal Conjugate Vacci ne, 20-valent (Cuezydc04) 06/09/2022 Pneumococcal Polysaccharide PPV23 (Pneumovax) 03/06/2020 RSV [...] Care Team (Late st Contact Info) Description 03/01/2024 2:00 PM EDT Office Visit Family Practice [facility] [place] [address] [place] [address] Igor Mcconnell, 293 [place] [address] 03/02/2024 3:30 PM EDT Scheduled Telephone [facility], [facility] [address] [facility] [place] [address] Mery Calderon, VIVIANAN [address] [facility] [place] [address] 03/03/2024 2:20 PM EDT Office Visit Nephrology, Susan Palacios [address] [place] [address] Shivani Magallon MD [address] [place] [address] 03/10/2024 11:30 AM EDT Telemedicine Family Practice 65 [facility] 293 [place] [address] College, Pharmacist 65 [facility] 293 [place] [address] 03/11/2024 8:30 AM EDT Office Visit Cardiology, [facility] [place] [address] Elizabeth Pineda PA-C [address] [place] [address] 03/16/2024 4:00 PM EDT Home Visit [facility], [facility] [address] [place] [address] Love Stevens RN 132 [facility] [place] [address] 06/13/2024 11:15 AM EST Hospital Encounter [facility]O [facility], Endoscopy Room [facility] [address] [place] [phone] José Miguel Sifuentes MD [address] [place] [address] 06/13/2024 11:15 AM EST - 06/13/2024 11:45 AM EST Surgery ENDO [facility], Endoscopy Room [facility] [address] [place] [phone] José Miguel Sifuentes MD [address] [place] [address] COLONOSCOPY FLEXIBLE PROXIMAL DIAGNOSTIC 08/08/2024 9:30 AM EST Nurse Only Ancillary [address] [place] [address] [place], Nurse [address] [place] [address] 10/27/2024 1:00 PM EDT Office Visit [facility] Disorders Ctr [facility] [address] [place] [phone] Lindsey Sheikh CRNP [address] [place] [address] Pending Results Name Type Priority Associated Diagnoses Date /Time URIC ACID Lab Routine Gout 03/01/2024 12:12 PM EDT Scheduled Procedures Name Priority Associated [...] Cancer Screening 01/01/2023 COVID-19 Vaccine ( season) 2023 12/10/2020, 11/12/2020 Influenza Vaccine (FLU shot) (#1) 2024 04/01/2023, 04/27/2022, 03/21/2021, Additional history exists Albumin/Creatinine Ratio 06/11/20242 023, 09/22/2022, 09/02/2022, Additional history exists Depression Screening 08/05/2024 08/05/2023 HbA1c 08/14/2024 02/12/2024, 04/01/2024, 06/11/2023, Additional history exists GFR 08/26/2024 02/24/2024, 08/0 03/2024, 02/04/2024, Additional history exists Diabetic Foot Exam 10/19/2024 10/20/2023, 0 09/02/2022, 08/16/2021, Additional history exists Diabetic Eye Exam 12/16/2024 12/17/2023, , 12/17/2023, Additional history exists O2 ASSESSMENT COMPLETED IN PAST YEAR FOR COPD 02/28/2025 02/29/2024 Arreola's Esophagus Surveilance 06/16/2025 06/16/2022, 06/16/2022, 03/20/2022, [...] this encounter Medical Devices Implanted Type Area Whiteprinting Machine Operator Device Identifier Shelf Expiration Date Model / Serial / Lot Lens Intraoc 21.0 - [id number] - [id number] Implanted:Qty: 1 on 01/22/2017 by Cheko Mcnamara MD at OR [facility] Right: Eye BAUSCH & LOMB 08/05/2021 [id number] / [id number] / [id number] Lens Intraoc 21.5 - [id number] - [id number] Implanted:Qty: 1 on 02/03/2017 by Cheko Mcnamara MD at OR [facility] Left: Eye BAUSCH & LOMB 09/02/2021 [id number] / [id number] / [id number] documented as of this encounter Visit Diagnoses Diagnosis Gout Gout, unspecified Special screening for malignant neoplasms, colon [...] and were consensually agreed upon. Care Teams Bailer Operators Supervisor Relationship Specialty Start Date End Date Igor Mcconnell DO [address] [facility] [place] [address] PCP - General Internal Medicine 02/12/24 documented as of this encounter
--- OUTSIDE RECORDS SUMMARY | 2024-08-26 02:48 | External Medical Summary | Summary of Care ---
Author Name Unknown Organization [facility] Address [address] [facility] [address] Phone [phone] Care Team Providers Care Film Or Videotape Editor Name Role Phone Igor Mcconnell DO Primary Care Provider [phone] Reason for Visit * Reason Comments [facility]: Maintenance Encounter Details Date Type Department Care Team (Late st Contact Info) Description 02/29/2024 4:00 PM EDT [facility] Visit [facility], [facility] [address] [place] [address] Love Stevens, RN [address] [place] [address] Allergies Active Allergy Reactions Criticality Noted Date Comments Metolazone Renal complications 11/10/2023 Note prior DTP with metolazone resulted in acute renal failure Other Allergy (See Comments) Rash Low 10/13/2022 1+ cocamidopropyl betaine Sglt2 Inhibitors Other (Please comment) High 09/04/2020 Genital infection Sulfa Antibiotics Rash 10/15/2016 documented as of this encounter (statuses as of 02/29/2024) Medications Medication Sig Dispensed Refills Start Date [...] 32 UNITS WITH DINNER PLUS CORRECTION PER [facility] OR DIRECTED UP TO [...] DX: E11.9 300 Strip 3 09/23/2023 Active Fvmof-2-ousj Ethyl Esters 1 GM Oral Capsule (Lovaza) [...] ([facility]) INJECT UNDER THE SKIN 100 UNITS TWICE [...] as of this encounter (statuses as of 02/29/2024) Active Problems Patient Care Coordination No te [...] in the Comments) Remote Patient Monitoring Vendor: Amen. Device(s): Connected Scale Self - Management Plan [...] as of this encounter (statuses as of 02/29/2024) Resolved Problems Problem Noted Date Diagnosed Date [...] as of this encounter (statuses as of 02/29/2024) Immunizations Name Administration Dates Next Due COVID-19 mRNA, LNP-s, No Pre serve, 2-Dose Series (Moderna) 12/10/2020,11/12/2020 Hepatitis B, 20+ yrs 01/04/2018,08/03/2017,07/03 Pneumococcal Conjugate Vacci ne, 20-valent ([id number]) 06/09/2022 Pneumococcal Polysaccharide PPV23 (Pneumovax) 03/06/2020 RSV [...] note were not included. [facility] Traffic Enumerator Visit Date: 02/29/2024 Time: 2:30 PM Name: [...] daily x 2 weeks starting 02/26/24. Pain /10 Metolazone dose 02/26, 02/19, 02/13, 02/12 Reinforced [...] last visit Treatment/Plan: Patient to lab at [facility] prior to PCP appointment tomorrow. APAP prn discomfort- continue prednisone/allopurinol daily. Encouraged heating pad- rest Continue medications as prescribed Keep all upcoming MD appointments Fall precautions Fluid restriction Home Interventions Provided: Reinforced current Plan of Care, including self-management and medication regimen Patient's Goals of Care: Pain relief Manage blood sugars Maintain baseline weight Continue to drive Patient's 'Red Flags': Increase edema BLE Sob above baseline Weight gain 3lbs/24 hours- 3-5lbs in one week Patient Needs to Remember: Call [facility] at with any new or worsening [...] 2:00 PM EDT Office Visit Family Practice [address] [place] [address] [address] [place] [address] Igor Mcconnell DO [address] [place] [address] 03/02/2024 3:30 PM EDT Scheduled Telephone [facility], [facility] [address] [facility] [place] [address] Mery Calderon RDN [address] [facility] [place] [address] 03/03/2024 2:20 PM EDT Office Visit NephrologySusan [address] [place] [address] Shivani Magallon MD [address] [place] [address] 03/10/2024 11:30 AM EDT Telemedicine Family Practice [address] [place] [address] [address] [place] [address] College, Pharmacist [address] [facility] [address] [place] [address] 03/11/2024 8:30 AM EDT Office Visit Cardiology, [facility] [address] [place] [address] Elizabeth Pineda PA-C 132 [facility] [place] [address] 03/16/2024 4:00 PM EDT [facility] Visit [facility], [facility] [address] [place] [address] Love Stevens RN 132 [facility] [place] [address] 06/13/2024 11:15 AM EST Hospital Encounter ENDO OSSC, Endoscopy Room [facility] [place] [phone] José Miguel Sifuentes MD 132 [facility] [place] [address] 06/13/2024 11:15 AM EST - 06/13/2024 11:45 AM EST Surgery ENDO OSSC, Endoscopy Room [facility] [place] [phone] José Miguel Sifuentes MD 132 [facility] [place] [address] COLONOSCOPY FLEXIBLE PROXIMAL DIAGNOSTIC 08/08/2024 9:30 AM EST Nurse Only Ancillary [address] [place] [address] [place], Nurse [address] [place] [address] 10/27/2024 1:00 PM EDT Office Visit Sleep Disorders Ctr [facility] [address] [place] [phone] Lindsey Sheikh CRNP [address] [place] [address] Scheduled Procedures Name Priority Associated Diagnoses Date/Ti [...] ASSESSMENT COMPLETED IN PAST YEAR FOR COPD 02/11/2025 02/12/2024 Arreola's Esophagus Surveilance 06/16/2025 06/16/2022, 06/16/2022, 03/20/2022, [...] this encounter Medical Devices Implanted Type Area Paint Prep Technician Device Identifier Shelf Expiration Date Model / Serial / Lot Lens Intraoc 21.0 - [id number] - [id number] Implanted:Qty: 1 on 01/22/2017 by Cheko Mcnamara MD at OR [facility] Right: Eye BAUSCH [employer] LOMB 08/05/2021 [id number] / [id number] / [id number] Lens Intraoc 21.5 - [id number] - [id number] Implanted:Qty: 1 on 02/03/2017 by Cheko Mcnamara MD at OR [facility] Left: Eye BAUSCH & LOMB 09/02/2021 [id number] / [id number] / [id number] documented as of this encounter Advance Directives [...] and were consensually agreed upon. Care Teams Film Or Videotape Editor Relationship Specialty Start Date End Date Igor Mcconnell DO [address] [place] [address] PCP - General Internal Medicine 02/12/24 documented as of this encounter
--- OUTSIDE RECORDS SUMMARY | 2024-08-26 02:48 | External Medical Summary ---
Author Name Unknown Address Unknown Organization [id number]:[facility] [place] [facility] [address] [facility] [id number] Laboratory Report Ordering Provider Test Date Status ANGE GARCÍA 03/01/2024 12:12:41 Final Observation Date Value Abnormality Reference (Units ) Status Borrelia burgdorferi IgG and IgM [Interpretation] in Serum by Immunoassay 03/01/2024 12:12:41 Negative Negative Final Performing Location [facility] [address] [place] [address]
--- OUTSIDE RECORDS SUMMARY | 2024-08-26 02:48 | External Medical Summary ---
Author Name Unknown Address Unknown Organization [id number]:LAB[facility]ATORY [facility] [place] - [address] [facility] [address] Laboratory Report Ordering Provider Test Date Status ANGE GARCÍA 03/01/2024 12:12:41 Final Observation Date Value Abnormality Reference (Units ) Status Cyclic citrullinated peptide IgG Ab [Presence] in Serum 03/01/2024 12:12:41 Negative Negative Final Cyclic citrullinated peptide IgA+IgG Ab [Units/volume] in Serum or Plasma by Immunoassay 03/01/2024 12:12:41 1.4 <7 (U/mL) Final Performing Location LABORATORY [facility] - [facility] [address] [facility] [address]
--- OUTSIDE RECORDS SUMMARY | 2024-08-26 02:48 | External Medical Summary ---
Author Name Unknown Address Unknown Organization K01:LABORATORY [address] [facility] [address] Laboratory Report Ordering Provider Test Date Status ANGE GARCÍA 03/01/2024 12:12:41 Final Observation Date Value Abnormality Reference (Units ) Status Nuclear IgG Ab [Ratio] in Serum by Immunoassay 03/01/2024 12:12:41 Negative Negative Final DNA double strand Ab [Presence] in Serum 03/01/2024 12:12:41 Negative Negative Final DOUBLE STRANDED DNA VALUE - [facility] 03/01/2024 12:12:41 0.8 <20 (IU/mL) Final Extractable nuclear Ab [Presence] in Serum 03/01/2024 12:12:41 Negative Negative Final Nuclear IgG Ab [Ratio] in Serum by Immunoassay 03/01/2024 12:12:41 0.3 <0.7 (Ratio) Final Screening is based on detect ion of the following antibodies: dsDNA, U1-LIEUTENANT COLONEL (RNP70, A, C), SS-A/Ro, SS-B / La, [...] with Rheumatology Department.
Methodology: Fluorescent Enzyme Immunoassay. Performing Location LABORATORY [address] [place] [facility] [address]
--- OUTSIDE RECORDS SUMMARY | 2024-08-26 02:48 | External Medical Summary ---
Author Name Unknown Address Unknown Organization K01:[facility] [place] [address] [place] [address] Laboratory Report Ordering Provider Test Date Status ANGE GARCÍA 03/01/2024 12:12:41 Final Observation Date Value Abnormality Reference (Units ) Status Uric Acid 03/01/2024 12:12:41 12.9 Above high normal 3. 4-7.0 (mg/dL) Final Performing Location [facility] [place] [place] [address] [place] [address]
--- OUTSIDE RECORDS SUMMARY | 2024-08-26 02:48 | External Medical Summary ---
Author Name Unknown Address Unknown Organization K01:LABORATORY [facility] [place] - [address] [place] [address] Laboratory Report Ordering Provider Test Date Status ANGE GARCÍA 03/01/2024 12:12:41 Final Observation Date Value Abnormality Reference (Units ) Status Rheumatoid Factor 03/01/2024 12:12:41 14 Above high normal <14 (IU/mL) Final Performing Location LABORATORY [facility] - [address] [place] [address]
--- OUTSIDE RECORDS SUMMARY | 2024-08-26 02:48 | External Medical Summary | Summary of Care ---
Author Name Unknown Organization [facility] Address [address] [place] [address] Phone [phone] Care Team Providers Care Agricultural Systems Specialist Name Role Phone Igor Mcconnell DO Primary Care Provider [phone] Reason for Visit * Reason Onset Date Comments Test Results 02/26/202402/25 Encounter Details Date Type Department Care Team (Late st Contact Info) Description 02/26/2024 Telephone Family Practice [address] [place] [address] [place] [address] Igor Mcconnell DO 293 [place] [address] Test Results (02/25) Allergies Active Allergy Reactions Criticality Noted Date [...] 32 UNITS WITH DINNER PLUS CORRECTION PER [facility] OR DIRECTED UP TO [...] before bedtime. 300 Tablet 3 4 Active Clotrimazole-Betam ethasone 1-0.05 % External Cream (Lotrisone) APPLY TOPICALLY TO AFFECTED AREA(S) TWO TIMES A DAY. 90 g 1 4 08/26/19 25 Active OneTouch Verio In Vitro Strip (Glucose Blood)Indications: Uncontrolled type 2 diabetes mellitus with hyperglycemia (HCC) USE TO TEST BLOOD GLUCOSE 3 TIMES A DAY. DX: E11.9 300 Strip 3 4 Active Keglm-8-dhdo Ethyl Esters 1 GM Oral Capsule (Lovaza) [...] goal of less than 7.0% ([facility]) INJECT UNDER THE SKIN 100 UNITS TWICE [...] 4 Active predniSONE 5 MG Oral Tablet (Deltasone)Indicat ions:Gout Take 1 Tablet by mouth in the morning for 14 days. As directed. 14 Tablet 4 03/11/20 24 Active Abrysvo 120 MCG/0.5ML Intramuscular Solution Reconstituted (RSV Pre-Fusion F A&B Vac Rcmb)Indications:N eed for RSV vaccination Inject 0.5 mL into a large muscle once for 1 dose. 1 Each 4 02/29/20 24 Discontinued documented as of this encounter [...] has been better controlled recently. Monitor using [employer]style Cindy. NEMESIO (acute kidney injury) 04/30/2022 Severe [...] yrs 01/04/2018,08/03/2017,07/03 Pneumococcal Conjugate Vacci ne, 20-valent ([id number]) 06/09/2022 Pneumococcal Polysaccharide PPV23 (Pneumovax) 03/06/2020 RSV [...] Telephone Encounter - Zulema Frazier LPN - 02/29/2024 10:16 AM EDT Gout diet information has been sent to patient. Thank you * Telephone Encounter - Bell Negrete LPN - 02/26/2024 4:39 PM EDT Call placed to patient and relayed information from Dr. Mcconnell. Pt acknowledged understanding and states he will comply. Will have lab work done at [facility]. Keeping encounter open - Will need to send pt gout diet education. * Telephone Encounter - Bell Negrete LPN - 02/26/2024 4:35 PM EDT ----- Message from Igor Mcconnell DO sent at 02/25/2024 4:20 PM EDT ----- Uric acid still up. Increase Allopurinol to 50 mg daily. Needs Gout diet education. Repeat Uric acid in 1 week. documented in this encounter Plan of Treatment Upcoming Encounters Date Type Department Care Team (Late st Contact Info) Description 02/29/2024 4:00 PM EDT [facility] Visit [facility], [facility] [address] [facility] [address] Love Stevens, RN 132 [facility] [place] [address] 03/01/2024 2:00 PM EDT Office Visit Family Practice [address] [place] [address] 293 [place] [address] Igor Mcconnell DO 293 [place] [address] 03/02/2024 3:30 PM EDT Scheduled Telephone [facility], [facility] [address] [place] [facility] [place] [address] Mery Calderon RDN [address] [place] [facility] [place] [address] 03/03/2024 2:20 PM EDT Office Visit Nephrology, Susan Palacios [address] [place], [place] [address] Shivani Magallon MD [address] [place] [address] 03/10/2024 11:30 AM EDT Telemedicine Family Practice [address] [place] [address] 293 [facility], [place] [address] College, Pharmacist [facility] 293 [facility] [place] [address] 03/11/2024 8:30 AM EDT Office Visit Cardiology, [facility] 132 [facility] [place] [address] Elizabeth Pineda PA-C 132 [facility] [place] [address] 06/13/2024 11:15 AM EST Hospital Encounter ENDO OSSC, Endoscopy Room [facility] 132 [facility] [place] [phone] José Miguel Sifuentes MD 132 [facility] [place] [address] 06/13/2024 11:15 AM EST - 06/13/2024 11:45 AM EST Surgery ENDO OSSC, Endoscopy Room [facility] 132 [facility] [place] [phone] José Miguel Sifuentes MD 132 [facility] [place] [address] COLONOSCOPY FLEXIBLE PROXIMAL DIAGNOSTIC 08/08/2024 9:30 AM EST Nurse Only Ancillary [address] [place] [address] [place], Nurse [address] [place] [address] 10/27/2024 1:00 PM EDT Office Visit Sleep Disorders Ctr [facility] [place] [phone] Lindsey Sheikh CRNP 132 [facility] [place] [address] Scheduled Orders Name Type Priority Associated Diagnoses Orde r Schedule URIC ACID Lab Routine Gout Expected: 03/07/2024 (Approximate), Expires: 02/28/2025 Scheduled Procedures Name Priority Associated Diagnoses Date/Ti [...] this encounter Medical Devices Implanted Type Area Restaurant Operations Manager Device Identifier Shelf Expiration Date Model / Serial / Lot Lens Intraoc 21.0 - [id number] - [id number] Implanted:Qty: 1 on 01/22/2017 by Cheko Mcnamara MD at OR [facility] Right: Eye BAUSCH [employer] LOMB 08/05/2021 [id number] / [id number] / [id number] Lens Intraoc 21.5 - [id number] - [id number] Implanted:Qty: 1 on 02/03/2017 by Cheko Mcnamara MD at OR [facility] Left: Eye BAUSCH & LOMB 09/02/2021 [id number] / [id number] / [id number] documented as of this encounter Visit Diagnoses Diagnosis Gout- Primary Gout, unspecified Special screening for malignant neoplasms, [...] and were consensually agreed upon. Care Teams Agricultural Systems Specialist Relationship Specialty Start Date End Date Igor Mcconnell DO [address] [place] [address] PCP - General Internal Medicine 02/12/24 documented as of this encounter
--- OUTSIDE RECORDS SUMMARY | 2024-08-26 04:37 | External Medical Summary | Summary of Care ---
Author Name Unknown Organization [facility] Address [address] [facility] [place] [address] Phone [phone] Care Team Providers Care Cloud Automation Tester Name Role Phone Igor Mcconnell DO Primary Care Provider [phone] Reason for Visit * Reason Onset Date Comments [facility]: Maintenance 08/25/2024 Encounter Details Date Type Department Care Team (Late st Contact Info) Description 08/25/2024 10:15 AM EST Scheduled Telephone [facility], [facility] 132 [facility] [place] [address] [facility], Nurse [facility] 132 [facility] [place] [address] Allergies Active Allergy Reactions Criticality Noted Date [...] UNITS WITH DINNER PLUS CORRECTION PER [facility] OR DIRECTED UP TO [...] Additional Information Patient taking differently:140 mg Subcutaneous [id number],Om Fridays, Reported on 08/24/2024 Unifine Pentips 31G X 8 MM (Insulin Pen Needle)Indications:T ype 2 diabetes mellitus with hemoglobin A1c goal of less than 7.0% (HCC) USE TO INJECT INSULINS 5 TIMES DAILY 500 Each 3 5 5:15 PM EST 04/18/20 24 Active Suhhu-4-eyln Ethyl Esters 1 GM Oral Capsule (Lovaza) [...] goal of less than 7.0% ([facility]) Inject 116 Units under the skin in the morning and 116 Units in the evening. 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 Monitor using 99[employer] Cindy. Assessment & Plan (12/19/2022 11:13 AM [...] yrs 01/04/2018,08/03/2017,07/03 Pneumococcal Conjugate Vacci ne, 20-valent ([id number]) 06/09/2022 Pneumococcal Polysaccharide PPV23 (Pneumovax) 03/06/2020 RSV [...] Telephone Encounter - Igor Mcconnell DO - 08/25/2024 3:56 PM EST Agree with WD evaluation. * Telephone Encounter - Shivani Magallon MD - 08/25/2024 3:28 PM EST Labs, recent events, meds reviewed. Agree w/ plan. Appreciate update. * Telephone Encounter - Love Stevens RN [...] and Drs. Mcconnell and Naun Sullivan MD, [facility] [place] [facility] Remote Medical Command ([facility]) [facility] Available on Attune RTD * Telephone Encounter - Delia Cohen RN - 08/25/2024 10:32 AM EST Images from the original note were not included. [facility] Telephonic Nurse Follow-Up Call [facility] Subprogram: Focused Care Management (3-9 [...] below that for comparison: Disposition: Routed to [facility] and/or [facility] Care Team for further advice Future Visits Scheduled: Future Appointments-next 60 days Date/Time Provider Specialty Dept Phone 08/30/2024 8:30 AM Love Stevens RN [facility] [phone] 09/08/2024 11:10 AM (Arrive by 10:55 AM) Gael Orr [address] [place] [address] Medicine Arrive at: Patient's Home [phone] 09/27/2024 11:30 AM Gael Zuniga Cardiology [facility] Cardiology Arrive at: Patient's Home [phone] 09/30/2024 2:20 PM (Arrive by 2:05 PM) Igor Mcconnell DO Family Medicine [phone] 10/27/2024 1:00 PM (Arrive by 12:45 PM) Lindsey Sheikh CRNP Sleep Disorders [phone] 11/18/2024 2:00 PM (Arrive by 1:45 PM) Luisa Ching PA-C Nephrology [phone] 08/09/2025 10:30 AM [place], Nurse Annual Wellness Ancillary [phone] Delia Cohen, ANNE MARIE documented in this encounter Plan of Treatment Upcoming Encounters Date Type Department Care Team (Late st Contact Info) Description 08/30/2024 8:30 AM EST [facility] Visit [facility] [place] 132 [facility] [place] [address] Love Stevens, RN 132 [facility] [place] [address] 09/01/2024 5:30 PM EST [facility] Visit [facility], [facility] 132 [facility] [place] [address] Love Stevens, ANNE MARIE 132 [facility] [place] [address] 09/08/2024 11:10 AM EST Telemedicine Family Practice 65 [facility] 293 [facility] [place] [address] College, Pharmacist [address] [place] [address], [place] [address] 09/27/2024 11:30 AM EDT Telemedicine Cardiology [facility], [place] [address] [place] [address] [facility], Pharmacist Cardiology [facility] [address] [place] [address] 09/30/2024 2:20 PM EDT Office Visit Family Practice [address], [place] 293 [place] [address] Igor Mcconnell DO 293 [place] [address] 10/27/2024 1:00 PM EDT Office [facility] 132 [facility] [place] [phone] Lindsey Sheikh CRNP 132 [facility] [address] 11/18/2024 2:00 PM EDT Office Visit Nephrology [address] [place] [address] [place], Luisa Guzman PA-C [address] [place] [id number] 08/09/2025 10:30 AM EST Nurse Only Ancillary [address] [place] [address] [place], Nurse [address] [place] [address] Scheduled Procedures Name Priority Associated Diagnoses Date/Ti me COLONOSCOPY FLEXIBLE PROXIMA L DIAGNOSTIC Recall History of colonic polyps Health Maintenance Due Date Last Done Comments Alpha-1 Antitrypsin 1977 Cologuard 02/09/2004 Fecal Occult Blood Test 02/09/2004 Sigmoidoscopy 02/09/2004 COVID-19 Vaccine ( season) 2024 12/10/2020, 11/12/2020 Diabetic Foot Exam 10/19/2024 10/20/2023, 0 09/02/2022, 08/16/2021, Additional history exists HbA1c 12/30/2024 07/01/2024, 08/0 03/2024, 10/21/2023, Additional history exists GFR 02/21/2025 08/24/2024, 06/06, 06/13/2024, Additional history exists PTH 05/13/2025 05/13/2024, 02/05, [...] this encounter Medical Devices Implanted Type Area Ambulance Attendant Device Identifier Shelf Expiration Date Model / Serial / Lot Lens Intraoc 21.0 - [id number] - [id number] Implanted:Qty: 1 on 01/22/2017 by Cheko Mcnamara MD at OR [facility] Right: Eye [employer] LOMB 08/05/2021 [id number] / [id number] / [id number] Lens Intraoc 21.5 - [id number] - [id number] Implanted:Qty: 1 on 02/03/2017 by Cheko Mcnamara MD at [facility] Left: Eye [employer]USCH & LOMB 09/02/2021 [id number] / [id number] / [id number] Hemostatic Clip Res 235cm - [id number] Implanted:Qty: 4 on 06/13/2024 by José Miguel Sifuentes MD at ENDOSCOPY [facility] [employer] : ENDOSCOPY 10/12/2026 [id number] / / [id number] Hemostatic Clip Res 235cm - [id number] Implanted:Qty: 4 on 06/13/2024 by José Miguel Sifuentes MD at ENDOSCOPY [facility] [employer] : ENDOSCOPY 03/18/2027 [id number] / [id number] documented as of this encounter Advance Directives [...] were consensually agreed upon. Care Teams Cloud Automation Tester Relationship Specialty Start Date End Date Igor Mcconnell DO [address] [place] [address] PCP - General Internal Medicine 02/12/24 documented as of this encounter
--- OUTSIDE RECORDS SUMMARY | 2024-08-26 04:38 | External Medical Summary | Summary of Care ---
Author Name Unknown Organization [facility] Address [address] [facility] [place] [address] Phone [phone] Care Team Providers Care Medical Support Assistant Name Role Phone Igor Mcconnell DO Primary Care Provider [phone] Reason for Visit * Reason Onset Date Comments [facility]: Maintenance 08/25/2024 Encounter Details Date Type Department Care Team (Late st Contact Info) Description 08/25/2024 10:15 AM EST Scheduled Telephone [facility], [facility] 132 [facility] [place] [address] [facility], Nurse [facility] 132 [facility] [place] [address] Allergies Active Allergy Reactions Criticality Noted Date [...] 38 UNITS WITH DINNER PLUS CORRECTION PER KAWEAH [...] Additional Information Patient taking differently:140 mg Subcutaneous [id number],Om Fridays, Reported on 08/24/2024 Unifine Pentips 31G X 8 MM (Insulin Pen Needle)Indications:T ype 2 diabetes mellitus with hemoglobin A1c goal of less than 7.0% (HCC) USE TO INJECT INSULINS 5 TIMES DAILY 500 Each 3 5 5:15 PM EST 04/18/20 24 Active Mauad-0-tswf Ethyl Esters 1 GM Oral Capsule (Lovaza) [...] than 7.0% ([facility]) Inject 116 Units under the skin in the morning and 116 Units in the evening. 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 Monitor using D[employer]Wave Systemsyle Cindy. Assessment & Plan (12/19/2022 11:13 AM [...] yrs 01/04/2018,08/03/2017,07/03 Pneumococcal Conjugate Vacci ne, 20-valent ([id number]) 06/09/2022 Pneumococcal Polysaccharide PPV23 (Pneumovax) 03/06/2020 RSV [...] and Drs. Mcconnell and Naun Sullivan MD, [facility], [facility], [facility] Remote Medical Command ([facility]) [facility] at Available on [employer] * Telephone Encounter - Delia Cohen RN - 08/25/2024 10:32 AM EST Images from the original note were not included. [facility] Telephonic Nurse Follow-Up Call [facility] Subprogram: Focused Care Management (3-9 [...] below that for comparison: Disposition: Routed to [facility] and/or [facility] at Home Care Team for further advice Future Visits Scheduled: Future Appointments-next 60 days Date/Time Provider Specialty Dept Phone 08/30/2024 8:30 AM Love Stevens RN [facility] at Home [phone] 09/08/2024 11:10 AM (Arrive by 10:55 AM) Gael Orr [address] [place] [address] Medicine Arrive at: Patient's Home [phone] 09/27/2024 11:30 AM Gael Zuniga Cardiology [facility] Cardiology Arrive at: Patient's Home [phone] 09/30/2024 2:20 PM (Arrive by 2:05 PM) Igor Mcconnell DO Family Medicine [phone] 10/27/2024 1:00 PM (Arrive by 12:45 PM) Lindsey Sheikh CRNP Sleep Disorders [phone] 11/18/2024 2:00 PM (Arrive by 1:45 PM) Luisa Ching PA-C Nephrology [phone] 08/09/2025 10:30 AM [place], Nurse [facility] Ancillary [phone] Delia Cohen, ANNE MARIE documented in this encounter Plan of Treatment Upcoming Encounters Date Type Department Care Team (Late st Contact Info) Description 08/30/2024 8:30 AM EST [facility] Visit [facility] [place], [facility] 132 [facility] [place] [address] Love Stevens, RN [address] [facility] [place] [address] 09/01/2024 5:30 PM EST Home Visit [facility], [facility] 132 [facility] [place] [address] Love Stevens, ANNE MARIE [address] [facility] [place] [address] 09/08/2024 11:10 AM EST Telemedicine Family Practice 65 [facility] 293 [facility] [place] [address] College, Pharmacist [address] [place] [address], [place] [address] 09/27/2024 11:30 AM EDT Telemedicine Cardiology [facility], [place] [address] [place] [address] [facility], Pharmacist Cardiology [facility] [address] [place] [address] 09/30/2024 2:20 PM EDT Office Visit Family Practice [address], [place] 293 [facility] [place] [address] Igor Mcconnell DO 293 [place] [address] 10/27/2024 1:00 PM EDT Office Visit Sleep Disorders Ctr [facility] 132 [facility] [place] [phone] Lindsey Sheikh CRNP 132 [facility] [address] 11/18/2024 2:00 PM EDT Office Visit Nephrology [address] [place] [address] [place], Luisa Guzman PA-C [address] [place] [address] 08/09/2025 10:30 AM EST Nurse Only Ancillary [address] [place] [address] [place], Nurse [address] [place] [address] Scheduled Procedures Name Priority Associated Diagnoses Date/Ti [...] this encounter Medical Devices Implanted Type Area Scada Operator Device Identifier Shelf Expiration Date Model / Serial / Lot Lens Intraoc 21.0 - [id number] - [id number] Implanted:Qty: 1 on 01/22/2017 by Cheko Mcnamara MD at OR [facility] Right: Eye [employer] 08/05/2021 [id number] / [id number] / [id number] Lens Intraoc 21.5 - [id number] - [id number] Implanted:Qty: 1 on 02/03/2017 by Cheko Mcnamara MD at [facility] Left: Eye [employer]OM[employer] 09/02/2021 [id number] / [id number] / [id number] Hemostatic Clip Res 235cm - [id number] Implanted:Qty: 4 on 06/13/2024 by José Miguel Sifuentes MD at ENDOSCOPY [facility] [employer] : ENDOSCOPY 10/12/2026 [id number] / / [id number] Hemostatic Clip Res 235cm - [id number] Implanted:Qty: 4 on 06/13/2024 by José Miguel Sifuentes MD at ENDOSCOPY [facility] [employer] : ENDOSCOPY 03/18/2027 [id number] / / [id number] documented as of this encounter Advance Directives [...] were consensually agreed upon. Care Teams Medical Support Assistant Relationship Specialty Start Date End Date Igor Mcconnell DO [address] [place] [address] PCP - General Internal Medicine 02/12/24 documented as of this encounter
--- OUTSIDE RECORDS SUMMARY | 2024-08-26 05:53 | External Medical Summary | Summary of Care ---
Author Name Unknown Organization [facility] Address [address] [facility] [place] [address] Phone [phone] Care Team Providers Care Gmat Tutor Name Role Phone Igor Mcconnell DO Primary Care Provider [phone] Reason for Visit * Reason Onset Date Comments [facility]: Maintenance 08/25/2024 Encounter Details Date Type Department Care Team (Late st Contact Info) Description 08/25/2024 10:15 AM EST Scheduled Telephone [facility], [facility] 132 [facility] [place] [address] [facility], Nurse [facility] 132 [facility] [place] [address] Allergies Active Allergy Reactions Criticality Noted Date [...] UNITS WITH DINNER PLUS CORRECTION PER [facility] OR DIRECTED UP TO 120 [...] Additional Information Patient taking differently:140 mg Subcutaneous [id number],Om Fridays, Reported on 08/24/2024 Unifine Pentips 31G X 8 MM (Insulin Pen Needle)Indications:T ype 2 diabetes mellitus with hemoglobin A1c goal of less than 7.0% (HCC) USE TO INJECT INSULINS 5 TIMES DAILY 500 Each 3 5 5:15 PM EST 04/18/20 24 Active Thmrk-5-dwpf Ethyl Esters 1 GM Oral Capsule (Lovaza) [...] hemoglobin A1c goal of less than 7.0% ([facility]) Inject 116 Units under the skin in the morning and 116 Units in the evening. 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 Monitor using Slide[employer]yle Cindy. Assessment & Plan (12/19/2022 11:13 AM [...] yrs 01/04/2018,08/03/2017,07/03 Pneumococcal Conjugate Vacci ne, 20-valent ([id number]) 06/09/2022 Pneumococcal Polysaccharide PPV23 (Pneumovax) 03/06/2020 RSV [...] and Drs. Mcconnell and Naun Sullivan MD, [facility], [facility] Remote Medical Command ([facility]) [facility] at Available on [employer] * Telephone Encounter - Delia Cohen RN - 08/25/2024 10:32 AM EST Images from the original note were not included. [facility] Telephonic Nurse Follow-Up Call [facility] Subprogram: Focused Care Management (3-9 months) [...] below that for comparison: Disposition: Routed to [facility] and/or [facility] at Home Care Team for further advice Future Visits Scheduled: Future Appointments-next 60 days Date/Time Provider Specialty Dept Phone 08/30/2024 8:30 AM Love Stevens RN [facility] at Home [phone] 09/08/2024 11:10 AM (Arrive by 10:55 AM) Gael Orr [address] [place] [address] Medicine Arrive at: Patient's Home [phone] 09/27/2024 11:30 AM Gael Zuniga Cardiology [facility] Cardiology Arrive at: Patient's Home [phone] 09/30/2024 2:20 PM (Arrive by 2:05 PM) Igor Mcconnell DO Family Medicine [phone] 10/27/2024 1:00 PM (Arrive by 12:45 PM) Lindsey Sheikh CRNP Sleep Disorders [phone] 11/18/2024 2:00 PM (Arrive by 1:45 PM) Luisa Ching PA-C Nephrology [phone] 08/09/2025 10:30 AM [place], Nurse Annual Wellness Ancillary [phone] Delia Cohen, ANNE MARIE documented in this encounter Plan of Treatment Upcoming Encounters Date Type Department Care Team (Late st Contact Info) Description 08/30/2024 8:30 AM EST Home Visit [facility] [place], [facility] 132 [facility] [place] [address] Love Stevens, RN 132 [facility] [place] [address] 09/01/2024 5:30 PM EST Home Visit [facility], [facility] 132 [facility] [place] [address] Love Stevens, ANNE MARIE 132 [facility] [place] [address] 09/08/2024 11:10 AM EST Telemedicine Family Practice 65 [facility] 293 [place] [address] College, Pharmacist [address] [place] [address], [place] [address] 09/27/2024 11:30 AM EDT Telemedicine Cardiology [facility], [place] [address] [place] [address] [facility], Pharmacist Cardiology [facility] [address] [place] [address] 09/30/2024 2:20 PM EDT Office Visit Family Practice [address], [place] 293 [facility] [place] [address] Igor Mcconnell DO 293 [place] [address] 10/27/2024 1:00 PM EDT Office Visit Sleep Disorders Ctr Maxim[facility]iano [facility] 132 [facility] [place] [phone] Lindsey Sheikh CRNP 132 [facility] [address] 11/18/2024 2:00 PM EDT Office Visit Nephrology [address] [place] [address] Zemamariama, Luisa Guzman PA-C [address] [place] [address] 08/09/2025 10:30 AM EST Nurse Only Ancillary [address] [place] [address] [place], Nurse [address] [place] [address] Scheduled Procedures Name Priority Associated Diagnoses Date/Ti [...] this encounter Medical Devices Implanted Type Area Plycor Operator Device Identifier Shelf Expiration Date Model / Serial / Lot Lens Intraoc 21.0 - [id number] - [id number] Implanted:Qty: 1 on 01/22/2017 by Cheko Mcnamara MD at OR [facility] Right: Eye [employer]OM[employer] 08/05/2021 [id number] / [id number] / [id number] Lens Intraoc 21.5 - [id number] - [id number] Implanted:Qty: 1 on 02/03/2017 by Cheko Mcnamara MD at [facility] Left: Eye BAUSCH [employer]OMB 09/02/2021 [id number] / [id number] / [id number] Hemostatic Clip Res 235cm - [id number] Implanted:Qty: 4 on 06/13/2024 by José Miguel Sifuentes MD at ENDOSCOPY [facility] [employer] : ENDOSCOPY 10/12/2026 [id number] / / [id number] Hemostatic Clip Res 235cm - [id number] Implanted:Qty: 4 on 06/13/2024 by José Miguel Sifuentes MD at ENDOSCOPY [facility] [employer] : ENDOSCOPY 03/18/2027 [id number] / / [id number] documented as of this encounter Advance Directives [...] and were consensually agreed upon. Care Teams Gmat Tutor Relationship Specialty Start Date End Date Igor Mcconnell DO 293 [place] [address] PCP - General Internal Medicine 02/12/24 documented as of this encounter
--- OUTSIDE RECORDS SUMMARY | 2024-08-26 05:54 | External Medical Summary | Summary of Care ---
Author Name Unknown Organization [facility] Address [address] [facility] [place] [address] Phone [phone] Care Team Providers Care Plant Protection Supervisor Name Role Phone Igor Mcconnell DO Primary Care Provider [phone] Reason for Visit * Reason Onset Date Comments [facility]: Maintenance 08/25/2024 Encounter Details Date Type Department Care Team (Late st Contact Info) Description 08/25/2024 10:15 AM EST Scheduled Telephone [facility], [facility] 132 [facility] [place] [address] [facility], Nurse [facility] 132 [facility] [place] [address] Allergies Active Allergy Reactions Criticality Noted Date [...] Additional Information Patient taking differently:140 mg Subcutaneous [id number],Om Fridays, Reported on 08/24/2024 Unifine Pentips 31G X 8 MM (Insulin Pen Needle)Indications:T ype 2 diabetes mellitus with hemoglobin A1c goal of less than 7.0% (HCC) USE TO INJECT INSULINS 5 TIMES DAILY 500 Each 3 5 5:15 PM EST 04/18/20 24 Active Ykehs-1-gion Ethyl Esters 1 GM Oral Capsule (Lovaza) [...] of less than 7.0% ([facility]) Inject 116 Units under the skin in the morning and 116 Units in the evening. 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 Monitor using Finestrellayle Cindy. Assessment & Plan (12/19/2022 11:13 AM [...] yrs 01/04/2018,08/03/2017,07/03 Pneumococcal Conjugate Vacci ne, 20-valent ([id number]) 06/09/2022 Pneumococcal Polysaccharide PPV23 (Pneumovax) 03/06/2020 RSV [...] and Drs. Mcconnell and Naun Sullivan MD, [facility], [facility], [facility] Remote Medical Command ([facility]) [facility] at Available on [employer] * Telephone Encounter - Delia Cohen RN - 08/25/2024 10:32 AM EST Images from the original note were not included. [facility] Telephonic Nurse Follow-Up Call [facility] Subprogram: Focused Care Management (3-9 months) [...] below that for comparison: Disposition: Routed to [facility] and/or [facility] at Home Care Team for further advice Future Visits Scheduled: Future Appointments-next 60 days Date/Time Provider Specialty Dept Phone 08/30/2024 8:30 AM Love Stevens RN [facility] at Home [phone] 09/08/2024 11:10 AM (Arrive by 10:55 AM) Gael Orr [address] [place] [address] Medicine Arrive at: Patient's Home [phone] 09/27/2024 11:30 AM Gael Zuniga Cardiology [facility] Cardiology Arrive at: Patient's Home [phone] 09/30/2024 2:20 PM (Arrive by 2:05 PM) Igor Mcconnell DO Family Medicine [phone] 10/27/2024 1:00 PM (Arrive by 12:45 PM) Lindsey Sheikh CRNP Sleep Disorders [phone] 11/18/2024 2:00 PM (Arrive by 1:45 PM) Luisa Ching PA-C Nephrology [phone] 08/09/2025 10:30 AM [place], Nurse Annual Wellness Ancillary [phone] Delia Cohen, ANNE MARIE documented in this encounter Plan of Treatment Upcoming Encounters Date Type Department Care Team (Late st Contact Info) Description 08/30/2024 8:30 AM EST [facility] Visit [facility] [place], [facility] 132 [facility] [place] [address] Love Stevens, RN 132 [facility] [place] [address] 09/01/2024 5:30 PM EST [facility], [facility] 132 [facility] [place] [address] Love Stevens, ANNE MARIE 132 [facility] [place] [address] 09/08/2024 11:10 AM EST Telemedicine Family Practice 65 [facility] 293 [place] [address] College, Pharmacist [address] [place] [address], [place] [address] 09/27/2024 11:30 AM EDT Telemedicine Cardiology [facility], [place] [address] [place] [address] [facility], Pharmacist Cardiology [facility] [address] [place] [address] 09/30/2024 2:20 PM EDT Office Visit Family Practice [address], [place] 293 [place] [address] Igor Mcconnell DO 293 [place] [address] 10/27/2024 1:00 PM EDT Office Visit Sleep Disorders Ctr Maxim[facility]iano [facility] 132 [facility] [place] [address] Lindsey Sheikh CRNP 132 [facility] [address] 11/18/2024 2:00 PM EDT Office Visit Nephrology [address] [place] [address] Zemamariama, Luisa Guzman PA-C [address] [place] [address] 08/09/2025 10:30 AM EST Nurse Only Ancillary [address] [place] [address] [place], Nurse [address] [place] [address] Scheduled Procedures Name Priority Associated Diagnoses Date/Ti [...] this encounter Medical Devices Implanted Type Area City [employer] Of [employer] Device Identifier Shelf Expiration Date Model / Serial / Lot Lens Intraoc 21.0 - [id number] - [id number] Implanted:Qty: 1 on 01/22/2017 by Cheko Mcnamara MD at OR [facility] Right: Eye [employer]OM[employer] 08/05/2021 [id number] / [id number] / [id number] Lens Intraoc 21.5 - [id number] - [id number] Implanted:Qty: 1 on 02/03/2017 by Cheko Mcnamara MD at [facility] Left: Eye BAUSCH & LOMB 09/02/2021 [id number] / [id number] / [id number] Hemostatic Clip Res 235cm - [id number] Implanted:Qty: 4 on 06/13/2024 by José Miguel Sifuentes MD at ENDOSCOPY [facility] [employer] : ENDOSCOPY 10/12/2026 [id number] / / [id number] Hemostatic Clip Res 235cm - [id number] Implanted:Qty: 4 on 06/13/2024 by José Miguel Sifuentes MD at ENDOSCOPY [facility] [employer] ENDOSCOPY 03/18/2027 [id number] / / [id number] documented as of this encounter Advance Directives [...] consensually agreed upon. Care Teams Plant Protection Supervisor Relationship Specialty Start Date End Date Igor Mcconnell DO [address] [place] [address] PCP - General Internal Medicine 02/12/24 documented as of this encounter
[2024-08-26] MEDS: ALBUMIN 25% 25 GM/100 ML VIAL IV ONE (07:09)
[2024-08-26 07:56] LABS: Basophils # (auto) 0.04 K/uL (0.00-0.20); Basophils % (auto) 0.8 %; Eosinophils # (auto) 0.44 K/uL (0.00-0.50); Eosinophils % (auto) 9.2 %; Hematocrit (blood only) 32.6 % (42.0-52.0); Immature Granulocytes # (auto) 0.02 K/uL (0.01-0.20); Immature Granulocytes % (auto) 0.4 %; Lymphocytes # (auto) 1.53 K/uL (1.20-3.40); Lymphocytes % (auto) 31.9 %; Mean Corpuscular Hgb Conc 33.7 g/dL (32.0-36.0); Mean Platelet Volume 10.7 fL (9.4-12.4); Monocytes # (auto) 0.47 K/uL (0.11-0.59); Monocytes % (auto) 9.8 %; Neutrophils # (auto) 2.29 K/uL (1.40-6.50); Neutrophils % (auto) 47.9 %; Platelet Count 120 K/uL (130-400); RDW Coefficient of Variation 18.4 % (11.5-14.5); Red Blood Count 3.93 M/uL (4.70-6.10); White Blood Count 4.79 K/ul (4.8-10.8)
[2024-08-26 08:15] LABS: Albumin Globulin Ratio 1.1 (0.9-2); Albumin Level 3.9 gm/dl (3.4-5.0); BUN Creatinine Ratio 19.6 (10-20); Bilirubin,Total 1.1 mg/dl (0.2-1.0); Calcium 9.4 mg/dl (8.6-10.3); Creatinine Clr Calc Pharmacy 31.3 ml/min; Globulin 3.4 gm/dl (2.5-4.0); Potassium 3.7 mmol/L (3.5-5.1); Total Protein 7.3 gm/dl (6.0-8.3)
[2024-08-26] MEDS: PRAVASTATIN SOD 20 MG TAB PO SCH (08:19)
[2024-08-26] MEDS: VITAMIN B COMPLEX TAB PO SCH (08:19)
[2024-08-26] MEDS: PANTOprazole 40 MG TAB PO SCH (08:20)
[2024-08-26] MEDS: carvediloL 12.5 MG TAB PO SCH (08:20)
[2024-08-26] MEDS: ASPIRIN 81 MG ECTAB PO SCH (08:20)
[2024-08-26] MEDS ORDERED: carvediloL 25 MG TAB PO SCH (09:00)
[2024-08-26] MEDS: LANTUS PER UNIT CHARGE SQ SCH (09:18)
[2024-08-26] MEDS: TORSEMIDE 20 MG TAB PO SCH (14:05)
--- NOTE | 2024-08-26 14:18 | Hospitalist Progress Note ---
Date of Service August 26, 2024 Assessment & Plan (1) Acute kidney injury superimposed on chronic kidney disease: (2) CKD stage 4 due to type 2 diabetes mellitus: (3) Chronic diastolic heart failure: (4) Type 2 diabetes mellitus: (5) Hepatic steatosis: (6) CHAPINCITO on CPAP: (7) Hypertension: Plan 64-year-old male who has a significant past medical history of chronic diastolic CHF, hypertensive heart disease, hyperlipidemia on Repatha and statin, insulin- dependent T2DM with ( nephropathy, severe nonproliferative retinopathy, PVD and polyneuropathy), morbid obesity, CHAPINCITO on CPAP, CKD stage IV, COPD, Arreola's esophagus, hepatic cirrhosis, gout and history of tobacco abuse who presents to ED at the referral of PCP due to NEMESIO and abnormal labs. ARF on CKD: Baseline creatinine 3, OP Cr of 4, admitting Cr of 3.21. likely pre- renal iso poor intake likely 2/2 possible recent viral illness. Recent viral illness s/p iv albumin, cr improved, 2.8 today. Will resume home diuretics gradually and follow labs in AM, if improving/stable then dc , if worsening consult nephro. Other chronic medical conditions: Continue with/resume home meds as and when able. Chronic diastolic heart failure (EF 55%, TTE 2023), equivocal volume status given congestion on imaging, patient appears euvolemic clinically. Hypertension, stable Hyperlipidemia on statin Rx CAD/PVD as per records COPD, lung status at baseline CHAPINCITO on CPAP DM2 insulin requiring, suboptimal control as of recent hemoglobin A1c of 9.06 June 2024 GERD on PPI Transaminitis secondary to NAFLD Past tobacco abuse DVT prophylaxis. Heparin subcu Full code Text document was generated using Intrapace voice recognition software. It may contain grammatical or spelling errors. Kindly contact undersigned for clarification of any documentation item in question. Admission and Anticipated Discharge Date Admission Date: August 25, 2024 Subjective Patient was seen and examined at bedside. Patient was lying in bed, on room air, NAD, resting comfortably. Patient reported nausea and vomiting prior to arrival, reports no further nausea and vomiting. Patient reports feeling better today. Physical Exam Physical Exam: Head: Normocephalic, Atraumatic Eyes: PERRL, conjunctivae normal, anicteric sclerae ENMT: external ear and nose normal, oropharynx normal Neck: trachea midline, no thyromegaly normal visual inspection Respiratory: normal respiratory effort, lungs clear to auscultation, no wheeze, rales, rhonchi. Normal insp/exp effort, no accessory muscle use Cardiovascular: RRR, no murmur, no edema Vessels: no JVD or carotid bruit Chest: normal inspection of chest Abdomen: protuberant abd, normal bowel sounds, soft, nontender, no hepatosplenomegaly Musculoskeletal: no cyanosis or clubbing, extremities motor strength 5/5 Skin: no rashes, warm and dry normal turgor Neurologic: PERRL, EOMI, accommodation nl, no face palsy, no dysarthria CN's II-XI intact bilaterally and moves all extremities Psychiatric: A+Ox3, euthymic affect Lymphatic: no cervical or axillary lymphadenopathy : deferred Results & Data Results & Data Vital Signs (Past 12 Hours) Vital Signs Pulse Pulse Resp BP BP Pulse Ox O2 Del Method 08/26/24 14:09 60 20 141/84 H 98 Room Air 08/26/24 10:36 71 18 08/26/24 10:00 71 08/26/24 09:33 58 L 18 95 08/26/24 09:30 125/68 08/26/24 09:21 92 H 21 97 08/26/24 09:03 66 19 97 08/26/24 08:48 60 22 97 Room Air 08/26/24 07:48 56 L 15 08/26/24 07:30 57 L 08/26/24 07:03 66 08/26/24 07:00 64 17 08/26/24 06:00 69 18 144/57 H 08/26/24 04:00 58 L 16 139/67
[2024-08-26 16:00] VITALS: RESP 18
[2024-08-27] MEDS: SPIRONOLACTONE 25 MG TAB PO SCH (08:43)
[2024-08-27 09:16] LABS: Hematocrit (blood only) 35.2 % (42.0-52.0); Hemoglobin 11.9 g/dl (14.0-18.0); Mean Corpuscular Hemoglobin 28.2 pg (25.0-34.0); Mean Corpuscular Hgb Conc 33.8 g/dL (32.0-36.0); Mean Corpuscular Volume 83.4 fL (80.0-100.0); Mean Platelet Volume 10.4 fL (9.4-12.4); Platelet Count 136 K/uL (130-400); RDW Coefficient of Variation 18.1 % (11.5-14.5); RDW Standard Deviation 54.4 fL (36.4-46.3); Red Blood Count 4.22 M/uL (4.70-6.10); White Blood Count 6.13 K/ul (4.8-10.8)
[2024-08-27 09:42] LABS: BUN Creatinine Ratio 19.6 (10-20); Calcium 9.7 mg/dl (8.6-10.3); Creatinine Clr Calc Pharmacy 33.9 ml/min; Magnesium 2.2 mg/dl (1.7-2.4); Phosphorus 3.5 mg/dl (2.5-4.9); Potassium 3.8 mmol/L (3.5-5.1)
--- NOTE | 2024-08-27 11:00 | Discharge Summary ---
Date of Service August 27, 2024 Admission HPI Per Admitting Provider This is a 64-year-old male who has a significant past medical history of chronic diastolic CHF, hypertensive heart disease, hyperlipidemia on Repatha and statin, insulin-dependent T2DM with ( nephropathy, severe nonproliferative retinopathy, PVD and polyneuropathy), morbid obesity, CHAPINCITO on CPAP, CKD stage IV, COPD, Arreola's esophagus, hepatic cirrhosis, gout and history of tobacco abuse who presents to ED at the referral of PCP due to NEMESIO and abnormal labs. History obtained from patient, friend at bedside and external chart review. Patient follows [facility]. He was seen for a home visit on 08/24 by RN. Per external chart review patient reported ill feeling, nausea, vomiting and difficulty with oral intake. He generally felt unwell. He also reports taking his metolazone due to being up 3 pounds which worked well for him. His baseline weight is around 272. Lab work was ordered and upon further review he was found to have a creatinine of 4.0 today which is up from baseline. A follow-up was done today for which the patient continued to feel unwell and [facility] provider recommended referral to ED for further evaluation. He has generally felt unwell for the last few days. In ED patient remained hemodynamically stable. His CBC and CMP was remarkable for BUN and creatinine of 68 and 3.21, sodium 134, chloride 97, AST 95, ALT 87 and H&H of 12.5 and 36.9. He received IV fluid in ED and admission was recommended. Patient states on Thursday he became acutely ill feeling nausea and having vomiting. Since Thursday he has had overall poor intake. He has been able to tolerate liquids. He has no longer having vomiting. He denies eating anything different. He denies any sick contacts. He states today he felt lightheaded and dizzy like he could pass out. He has held his diuretics for the past 2 days at the instruction of [facility]. He reports his weight has remained stable. He denies any lower extremity swelling or increased abdominal bloating. He states his sugars have been running on the higher side. He denies any fever, chills, sweats, lightheadedness, dizziness, chest pain, shortness of breath, cough or URI symptoms, diarrhea, melena or hematochezia. He is still producing urine. Admission Exam Per Admitting Provider Constitutional: WD/WN, vitals as above, NAD, sitting up in bed, pleasant, conversing easily Head: Normocephalic, Atraumatic Eyes: PERRL, conjunctivae normal, anicteric sclerae ENMT: external ear and nose normal, oropharynx normal Neck: trachea midline, no thyromegaly normal visual inspection Respiratory: normal respiratory effort, lungs clear to auscultation, no wheeze, rales, rhonchi. Normal insp/exp effort, no accessory muscle use Cardiovascular: RRR, no murmur, no edema Vessels: no JVD or carotid bruit Chest: normal inspection of chest Abdomen: protuberant abd, normal bowel sounds, soft, nontender, no hepatosplenomegaly Musculoskeletal: no cyanosis or clubbing, extremities motor strength 5/5 Skin: no rashes, warm and dry normal turgor Neurologic: PERRL, EOMI, accommodation nl, no face palsy, no dysarthria CN's II-XI intact bilaterally and moves all extremities Psychiatric: A+Ox3, euthymic affect Lymphatic: no cervical or axillary lymphadenopathy : deferred Principal Diagnosis ARF on CKD Recent viral illness Discharge Exam Head: Normocephalic, Atraumatic Eyes: PERRL, conjunctivae normal, anicteric sclerae ENMT: external ear and nose normal, oropharynx normal Neck: trachea midline, no thyromegaly normal visual inspection Respiratory: normal respiratory effort, lungs clear to auscultation, no wheeze, rales, rhonchi. Normal insp/exp effort, no accessory muscle use Cardiovascular: RRR, no murmur, no edema Vessels: no JVD or carotid bruit Chest: normal inspection of chest Abdomen: protuberant abd, normal bowel sounds, soft, nontender, no hepatosplenomegaly Musculoskeletal: no cyanosis or clubbing, extremities motor strength 5/5 Skin: no rashes, warm and dry normal turgor Neurologic: PERRL, EOMI, accommodation nl, no face palsy, no dysarthria CN's II-XI intact bilaterally and moves all extremities Psychiatric: A+Ox3, euthymic affect Lymphatic: no cervical or axillary lymphadenopathy : deferred Discharge Data Allergies Allergy/AdvReac Type Severity Reaction Status Date / Time Sulfa (Sulfonamide AdvReac Intermediate Hives Verified 08/25/24 20:23 Antibiotics) Consultations 08/25/24 19:43 ED Decision to Admit Stat Hospital Course (1) Acute kidney injury superimposed on chronic kidney disease: (2) CKD stage 4 due to type 2 diabetes mellitus: (3) Chronic diastolic heart failure: (4) Type 2 diabetes mellitus: (5) Hepatic steatosis: (6) CHAPINCITO on CPAP: (7) Hypertension: Plan 64-year-old male who has a significant past medical history of chronic diastolic CHF, hypertensive heart disease, hyperlipidemia on Repatha and statin, insulin- dependent T2DM with ( nephropathy, severe nonproliferative retinopathy, PVD and polyneuropathy), morbid obesity, CHAPINCITO on CPAP, CKD stage IV, COPD, Arreola's esophagus, hepatic cirrhosis, gout and history of tobacco abuse who presents to ED at the referral of PCP due to NEMESIO and abnormal labs. He was managed for the following: ARF on CKD: Baseline creatinine 3, OP Cr of 4, admitting Cr of 3.21. likely pre- renal iso poor intake likely 2/2 possible recent viral illness. Recent viral illness s/p iv albumin, cr improved, 2.8 on 08/26. Home diuretics resumed, Cr stable at 2.8. Pt reports eating better and strength back to baseline. Patient is hemodynamically stable and would like to go home. Other chronic medical conditions: Continue with/resume home meds as and when able. Chronic diastolic heart failure (EF 55%, TTE 2023), equivocal volume status given congestion on imaging, patient appears euvolemic clinically. Hypertension, stable Hyperlipidemia on statin Rx CAD/PVD as per records COPD, lung status at baseline CHAPINCITO on CPAP DM2 insulin requiring, suboptimal control as of recent hemoglobin A1c of 9.06 June 2024 GERD on PPI Transaminitis secondary to NAFLD Past tobacco abuse DVT prophylaxis. Heparin subcu Full code Patient is being discharged home with following instructions at the point of discharge: Follow-up with your primary care physician within a week time and likely you will need labs CBC/CMP/magnesium/phosphorus. Your kidney function has improved. You are resumed on your home medications. You will need repeat BMP done in 1 week time, coordinate with your PCP office to set up the test. Follow-up with your nephrology in 2 to 4 weeks time upon discharge. Your Coreg dose has been decreased to 12.5 mg twice a day based on your blood pressure level here in the hospital. Take your medications as prescribed. Please make sure that you are able to get your medications today by calling your pharmacy before you leave the hospital so that your treatment continuity is not broken. Text document was generated using [employer] voice recognition software. It may contain grammatical or spelling errors. Kindly contact undersigned for clarification of any documentation item in question. Home Health Attestation I certify that this patient is under my care and that I, or a physicians ass isilsat working with me, had a face to-face encounter that meets the home health [id number] encounter requirements with this patient. The encounter with the patient was in whole, or in part, for the following medical condition, which is the primary reason for home health care (list medical condition): I certify that, based on my findings, the following services are medically necessary home health services: My clinical findings support the need for the above services because: Further, I certify that my clinical findings support that this patient is homebound (i.e. absences from home require considerable and taxing effort and are for medical reasons or zoroastrianism services or infrequently or of short duration when for other reasons) because: Certification for Home Health Services: Based on the above findings, I certify that this patient is confined to the home and needs intermittent halfway care, physical therapy and/or speech therapy or continues to need occupational therapy. The patient is under my care, and I have initiated the establishment of the plan of care. This patient will be followed by a physician who will periodically review the plan of care. Total Time Total Time Spent Total Time Spent (In Minutes): 35 Discharge Plan Discharge Items Patient Disposition: Home - Home Health Services Reason For Visit: ARF, CHF Discharge Diagnosis: ARF on CKD Recent viral illness Activity: Resume your previous activity Non-emergency contact: Primary Care Provider Call non-emergency contact if: you have any medication questions and your symptoms worsen Follow-up/Referrals: Igor Mcconnell, [Primary Care Provider] - (The office will call you for a follow up appointment ) Diet: Carb Consistent or DM2 and Heart Healthy Addtl Attending Provider Instructions: Follow-up with your primary care physician within a week time and likely you will need labs CBC/CMP/magnesium/phosphorus. Your kidney function has improved. You are resumed on your home medications. You will need repeat BMP done in 1 week time, coordinate with your PCP office to set up the test. Follow-up with your nephrology in 2 to 4 weeks time upon discharge. Your Coreg dose has been decreased to 12.5 mg twice a day based on your blood pressure level here in the hospital. Take your medications as prescribed. Please make sure that you are able to get your medications today by calling your pharmacy before you leave the hospital so that your treatment continuity is not broken. Pending Studies at Discharge: No Stand-Alone Forms: [facility], Smoking Cessation Medications and DC Order Prescriptions: Continued acetaminophen [Tylenol Extra Strength] 500 mg tablet 500 mg PO Q6H PRN (Reason: Pain) omeprazole magnesium [Acid Encoding Clerk (omeprazole)] 20 mg capsule,delayed release(DR/EC) 20 mg PO BID Repatha SureClick 140 mg/mL pen injector 140 mg subcut .COMPLEX Rx Instructions: 140 mg subcut q other wk; TAKES ON EVERY OTHER TUESDAYS. aspirin [John Low Dose Aspirin] 81 mg Tablet,Delayed Release (Dr/Ec) 81 mg PO QAM clotrimazole-betamethasone 1-0.05 % cream 1 applic TOPICAL QAM PRN (Reason: AFFECTED AREAS) vitamin B complex Tablet 1 tab PO QAM insulin aspart U-100 [Novolog FlexPen U-100 Insulin] 100 unit/mL (3 mL) Insulin Pen 0 sliding scale dose SUBCUT TID Tresiba FlexTouch U-100 100 unit/mL (3 mL) insulin pen 116 unit SUBCUT BID cholecalciferol (vitamin D3) [Vitamin D3] 125 mcg (5,000 unit) Tablet 125 mcg PO DAILY coQ10 (ubiquinol) 200 mg Capsule 200 mg PO DAILY metolazone 2.5 mg tablet 2.5 mg PO DAILY PRN (Reason: Weight Gain) spironolactone 25 mg tablet 25 mg PO DAILY potassium chloride 20 mEq tablet,ER particles/crystals 40 meq PO BID pravastatin 20 mg tablet 20 mg PO DAILY torsemide 20 mg tablet 80 mg PO QAM Changed carvedilol 25 mg tablet 1.25 mg PO BID Qty: 180 3RF Rx Instructions: must administer with a meal/food Admission Data Admit Date/Time: 08/25/24 20:12 Attending Provider: Cayden Holt Admit Provider: Nate Garcia Primary Care Provider: Igor Mcconnell Other Providers: Nate Garcia.
[2024-08-27 11:59] VITALS: PULSE 59; TEMP 97.5; O2SAT 99
[2024-08-27 12:26] VITALS: BP 126/71
== END 2024-08-27 13:41 | disposition home health service (06) ==
LOC: ED 17:41 → EDINP 17:41 → 2W 22:09